=== PATIENT | female | born 1945 | race American Indian/Alaskan Native ===

== ENCOUNTER 2019-03-19 12:32 | Inpatient (IN) | payer MEDICARE ==
[2019-03-19] MEDS ORDERED: NACL 0.9% 1000 ML IV ONE (12:43)
[2019-03-19] MEDS ORDERED: VERSED IV PRN (12:45)
[2019-03-19] MEDS ORDERED: VASELINE LIP THERAPY TP PRN (12:45)
[2019-03-19] MEDS ORDERED: ARTIFICIAL TEARS OPHTH OINT OU PRN (12:45)
--- NOTE | 2019-03-19 12:48 | Emergency Department Report ---
ED General Adult HPI - General Chief complaint: Altered Mental Status Stated complaint: UNRESPONSIVE Time Seen by Provider: 03/19/19 12:42 Source: EMS (verbal report received from EMS.ems notes not available at time of chart dictation), RN notes reviewed Mode of arrival: Stretcher Limitations: Altered Mental Status - History of Present Illness Initial comments: This is an unfortunate 73-year-old female who is not known to this provider previously. The details of her past medical history are initially not known to this provider previously. She is reportedly on hospice, but full code, with a hospice diagnosis of "cerebral atherosclerosis." He do not know who her primary care doctor is. The patient is brought to the hospital by EMS for altered mental status weakness, and difficulty breathing. EMS verbally reports low-grade temperature in the field, hypoglycemia, and hypoxia. Upon arrival to the emergency room, the patient is obtunded, breathing without difficulty, desaturating, without a gag reflex. Family not immediately available to discuss goals of care and advanced directives. Enclosed paperwork indicates patient is a full code. Therefore, patient placed on nasal cannula at 15 L/m, and receives aggressive bag valve mask ventilation. She is given 20 mg of etomidate, direct laryngoscopy is performed with a Silvio 3 curved blade, and a 7.5 endotracheal tube is inserted by myself with 1 attempt, with no difficulty, and tube placement is confirmed through direct visualization of the tube passing through the cords, end-tidal capnography, auscultation of breath sounds, and x- ray of the chest. Patient is started empirically on the sepsis pathway, with broad-spectrum antibiotics, aggressive IV fluids, and post intubation sedation package. Family has arrived shortly after intubation, and we discussed patient's care, and poor prognosis. Currently, blood pressure in the high 90s, low 100s, and patient does not require vasopressor therapy. However, I did discuss with family possible need for either central line or intraosseous line, and as per daughter of the the patient "do whatever you can." The patient was altered and obtunded upon arrival, and therefore, she is not able to describe exacerbating or relieving factors, radiation, qualitative nature of her symptoms or duration of symptoms. We do not know what her last known well time is -: unknown Radiation: other Quality: other Consistency: other Improves with: other Worsens with: other - Related Data Allergies Allergy/AdvReac Type Severity Reaction Status Date / Time No Known Allergies Allergy Unverified 03/19/19 13:11 ED Review of Systems ROS: Stated complaint: UNRESPONSIVE Other details as noted in HPI Comment: Unobtainable due to pts medical conditions ED Physical Exam - General Limitations: Altered Mental Status General appearance: obtunded - Head Head exam: Present: atraumatic, normocephalic - Eye Eye exam: Present: normal appearance - ENT ENT exam: Present: mucous membranes dry - Neck Neck exam: Present: normal inspection, full ROM - Respiratory Respiratory exam: Present: respiratory distress, rhonchi - Cardiovascular Cardiovascular Exam: Present: normal rhythm, tachycardia, normal heart sounds. Absent: systolic murmur, diastolic murmur, rubs, gallop - GI/Abdominal GI/Abdominal exam: Present: soft. Absent: distended, tenderness, guarding, rebound, rigid, pulsatile mass - Rectal Rectal exam: Present: normal inspection - Speculum exam: Present: normal speculum exam - Extremities Exam Extremities exam: Present: normal inspection, pedal edema, other (2+ pulses noted in the bilateral upper, lower extremities. Compartments soft. No long bony tenderness. The pelvis is stable.) - Back Exam Back exam: Absent: tenderness, CVA tenderness (R), CVA tenderness (L), paraspinal tenderness, vertebral tenderness - Neurological Exam Neurological exam: Present: altered (the patient is nonverbal, not moving extremities, not speaking, eyes are closed) - Psychiatric Psychiatric exam: Present: normal affect, normal mood, other ( patient is nonverbal) - Skin Skin exam: Present: warm ED Course Vital Signs 03/19/19 03/19/19 03/19/19 12:47 13:00 13:05 Temperature 98.4 F Pulse Rate 131 H 131 H 133 H Respiratory 18 18 16 Rate Blood Pressure 69/49 106/62 O2 Sat by Pulse 99 Oximetry - Reevaluation(s) Reevaluation #1: 03/19/19 14:17 Differential diagnosis, including not limited to: Pneumonia, bacteremia, v iremia, urinary tract infection, dehydration, electrolyte derangement, encephalopathy Assessment and plan: 73-year-old female with altered mental status and acute respiratory failure, currently full code, requires intubation. Patient is currently mechanically ventilated, and is manifesting sepsis through multiple criteria. She is being treated according to her sepsis pathway with aggressive broad-spectrum antibiotics and fluid therapy. Cultures have been ordered. Laboratory studies demonstrate renal insufficiency, hypoglycemia, elevated troponin, likely type II troponin leak, hypomagnesemia, and hypocalcemia/hypoalbuminemia. CT scan of the brain appears to be negative for acute disease, chronic findings and exvacuo dilation appeared to be present. Neuro: Encephalopathy likely secondary to respiratory failure, dehydration, and presumed pneumonia. We will treat supportively. Sedation package as per protocol. Cardiovascular: Provide IV fluids, antipyretics therapy, correct electrolyte derangements. Elevated troponin likely type II troponin leak, likely secondary to sepsis, dehydration and acute renal insufficiency. Respiratory: Appropriate pulmonary toilet, head of bed elevation, lung protective ventilation strategy, appropriate antibiotics, pulmonary suction, sputum cultures. GI: Nothing by mouth, nasogastric tube. Hypoalbuminemia likely secondary to malnutrition, and this is the most likely contribute factor to patient's hypocalcemia. Renal endocrine: Likely prerenal azotemia, IV fluids, supportive care, check urine electrolytes Check urinalysis and urine culture Patient reportedly hypoglycemic, patient will be placed on a dextrose drip, every hour Accu-Cheks to be ordered. Muscular skeletal: Deferred to inpatient team. No acute muscular skeletal issue at this time. Mild myositis noted, continue IV fluids. Discussed with critical care physician, Dr. Gooden, his group will follow in consultation. He agrees with placement into the intensive care unit. Case was admitted to Hospital physician, Dr. Feli Andres, who has accepted patient's to the intensive care unit. 03/19/19 14:23 - EJ/Peripheral Line Neck R Time Out Performed: Yes Indications: multiple IV sites needed Skin Cleansed in Sterile Fashion: Yes Size: 18 Dressing Placed: Tegaderm Patient Tolerated Procedure: well - Intubation Time Out Performed: No (emergency situation) Sedative: Etomidate Mg Given: 20 Laryngoscope: Silvio Size: 3 ET Tube Size: 7.5 Tube Secured Depth (cm): 23 Tube Secured Location: teeth Tube Placement Confirmation: visualized tube passing t, equal breath sounds bilat, no breath sounds over epi, confirmation by capnometr Patient Tolerated Procedure: well Intubation Complications: none ED Medical Decision Making - Lab Data Result diagrams: 03/19/19 12:59 03/19/19 12:59 Vital Signs 03/19/19 03/19/19 03/19/19 12:47 13:00 13:05 Temperature 98.4 F Pulse Rate 131 H 131 H 133 H Respiratory 18 18 16 Rate Blood Pressure 69/49 106/62 O2 Sat by Pulse 99 Oximetry Lab Results 03/19/19 03/19/19 Range/Units 12:59 13:35 WBC 5.7 (4.5-11.0) K/mm3 RBC 3.44 L (3.65-5.03) M/mm3 Hgb 11.6 (10.1-14.3) gm/dl Hct 34.7 (30.3-42.9) % MCV 101 H (79-97) fl MCH 34 H (28-32) pg MCHC 33 (30-34) % RDW 13.9 (13.2-15.2) % Plt Count 98 L (140-440) K/mm3 POC Glucose 84 (70-105) - EKG Data -: EKG Interpreted by Hi EKG shows normal: sinus rhythm Rate: tachycardia - EKG Data 03/19/19 14:22 This is a sinus tachycardia, 129 bpm, normal axis, QTC 464 ms, abnormal EKG, motion artifact, there is no prior for comparison, this EKG is not consistent with ST elevation myocardial infarction. - Radiology Data Radiology results: report reviewed, image reviewed Print Report Referring Physician: CARITO GREEN Patient Name: HEMALATHA SHEETS Date of : 1945 Sex: Female Report Date: 2019-03-19 Report Status: Finalized Findings [facility] [address] [place] [address] XRay Report Signed Patient: HEMALATHA SHEETS MR#: [id number] : 1945 Acct:[id number] Age/Sex: 73 / F ADM Date: 03/19/19 Loc: ED Attending Dr: Ordering Physician: CARITO GREEN MD Date of Service: 03/19/19 Procedure(s): XR chest 1V ap Accession Number(s): [id number] cc: CARITO GREEN MD Fluoro Time In Minutes: CHEST 1 VIEW INDICATION / CLINICAL INFORMATION: ett placement. COMPARISON: None available. FINDINGS: SUPPORT DEVICES: Endotracheal tube is in place in good position above the liam. HEART / MEDIASTINUM: No significant abnormality. LUNGS / PLEURA: There is moderate bibasilar lung consolidation and slight right upper lobe consolidation as well. No edema or effusions. No pneumothorax. ADDITIONAL FINDINGS: No significant additional findings. IMPRESSION: 1. Endotracheal tube in good position. Signer Name: Angelo Milan MD Signed: 03/19/2019 1:25 PM Workstation Name: [id number] Transcribed By: LINDEN Dictated By: Angelo Milan MD Electronically Authenticated By: Angelo Milan MD Signed Date/Time: 03/19/19 4749 Critical care attestation.: If time is entered above; I have spent that time in minutes in the direct care of this critically ill patient, excluding procedure time. ED Disposition Clinical Impression: Hypoglycemia, HA (acute kidney injury) Acute respiratory failure Qualifiers: Respiratory failure complication: unspecified whether with hypoxia or hypercapnia Qualified Code(s): J96.00 - Acute respiratory failure, unspecified whether with hypoxia or hypercapnia Sepsis Qualifiers: Sepsis type: sepsis due to unspecified organism Qualified Code(s): A41.9 - Sepsis, unspecified organism Disposition: DC09 OP ADMIT IP TO THIS HOSP Is pt being admited?: Yes Condition: Critical Referrals: DIMPLE NASH MD [Primary Care Provider] - 3-5 Days
[2019-03-19] MEDS ORDERED: MAXIPIME/NS 2 GM/100 ML 2 GM/100 ML BAG IV SCH (13:00)
[2019-03-19] MEDS ORDERED: MIDAZOLAM 100 MG in NACL 0.9% 80 ML IV SCH (13:00)
[2019-03-19] MEDS ORDERED: D10W 1,000 ML IV SCH (13:00)
[2019-03-19] MEDS ORDERED: LEVAQUIN 500MG/100ML 500 MG/100 ML BAG IV ONE (13:23)
[2019-03-19] MEDS: SUBLIMAZE IV PRN (13:26)
--- NOTE | 2019-03-19 13:29 | XRay Report ---
CHEST 1 VIEW INDICATION / CLINICAL INFORMATION: ett placement. COMPARISON: None available. FINDINGS: SUPPORT DEVICES: Endotracheal tube is in place in good position above the liam. HEART / MEDIASTINUM: No significant abnormality. LUNGS / PLEURA: There is moderate bibasilar lung consolidation and slight right upper lobe consolidat ion as well. No edema or effusions. No pneumothorax. ADDITIONAL FINDINGS: No significant additional findings. IMPRESSION: 1. Endotracheal tube in good position. Signer Name: Angelo Milan MD Signed: 03/19/2019 1:25 PM Workstation Name: [id number]
[2019-03-19 13:30] LABS: Hematocrit 34.7 % (30.3-42.9); Hemoglobin 11.6 gm/dl (10.1-14.3); Mean Corpuscular HGB Conc 33 % (30-34); Mean Corpuscular Volume 101 fl (79-97); Red Blood Count 3.44 M/mm3 (3.65-5.03); Red Cell Distribution Width 13.9 % (13.2-15.2)
[2019-03-19 13:35] LABS: Platelet Count 98 K/mm3 (140-440)
[2019-03-19 13:47] LABS: Albumin 1.7 g/dL (3.9-5); Calcium 7.8 mg/dL (8.4-10.2)
[2019-03-19] MEDS ORDERED: VANCOMYCIN 1,250 MG in NACL 0.9% 500 ML 500 ML IV ONE (14:00)
[2019-03-19] MEDS ORDERED: fentaNYL DRIP Premix 2,000 MCG/100 ML BAG IV SCH (14:00)
[2019-03-19] MEDS ORDERED: MAGNESIUM SULFATE 2GM/50ML 2 GM/50 ML BAG IV ONE (14:12)
[2019-03-19] MEDS ORDERED: TYLENOL PR ONE (14:12)
[2019-03-19 14:27] LABS: Eosinophils % (Auto) 0.1 % (0.0-4.3); Monocytes # (Auto) 0.3 K/mm3 (0.0-0.8)
[2019-03-19] MEDS ORDERED: NACL 0.9% 1000 ML 1,000 ML IV ONE ×2 (14:27→20:00)
--- NOTE | 2019-03-19 14:37 | Cat Scan Report ---
CT head/brain wo con INDICATION: Altered mental status; respiratory failure TECHNIQUE: Routine CT head without contrast. Sagittal and coronal reformatted images were obtained. A ll CT scans at this location are performed using CT dose reduction for ALARA by means of automated ex posure control. COMPARISON: None. FINDINGS: BRAIN / INTRACRANIAL CONTENTS: Left frontal craniotomy changes are seen. Encephalomalacia is seen involving almost the entire right cerebral hemisphere with compensatory enla rgement of right lateral ventricle. Volume loss is seen in the left cerebral hemisphere also. Brainstem and cerebellum are normal. I do not see focal lesion in the left cerebral hemisphere. I do not see acute hemorrhage or acute parenchymal lesion. CRANIOCERVICAL JUNCTION: No significant abnormality. ORBITS: No significant abnormality of visualized orbits. SINUSES / MASTOIDS: No significant abnormality of the visualized paranasal sinuses or mastoid air quan ls. ADDITIONAL FINDINGS: None. IMPRESSION: Encephalomalacia in the entire right cerebral hemisphere Volume loss in the left cerebral hemisphere I do not see an acute parenchymal lesion in the brain. Signer Name: Lakeisha Begum MD Signed: 03/19/2019 2:33 PM Workstation Name: [id number]
[2019-03-19] MEDS ORDERED: D50W (25GM) Syringe IV ONE (14:43)
[2019-03-19 14:52] LABS: Chol/HDL Ratio 1.96 %
[2019-03-19 15:43] LABS: Band Neutrophils # (Manual) 0.2 K/mm3; Basophils % (Manual) 0 % (0.0-1.8); Eosinophils % (Manual) 0 % (0.0-4.3); Myelocytes # (Manual) 0.6 K/mm3; Total Cells Counted 100
[2019-03-19 15:44] LABS: Platelet Estimate Consistent w Auto; RBC Morphology Normal
[2019-03-19 16:10] LABS: Bilirubin,Urine NEG (Negative); Color,Urine Yellow (Yellow)
[2019-03-19 16:11] LABS: Bacteria,Urine 1+ /HPF (Negative); Blood,Urine LG (Negative); Hyaline Casts,Urine 3 /LPF; Mucus,Urine FEW /HPF; Protein,Urine <15 mg/dL mg/dL (Negative); Urobilinogen,Urine < 2.0 mg/dL (<2.0)
[2019-03-19 16:12] LABS: Creatinine,Urine 31.8 mg/dL (0.1-20.0)
[2019-03-19] MEDS ORDERED: NACL 0.9% 1000 ML 2,000 ML IV ONE (17:18)
[2019-03-19] MEDS ORDERED: SODIUM BICARBONATE 150 MEQ in D5W 1,000 ML IV SCH (18:00)
[2019-03-19] MEDS: D50W (25GM) Syringe IV PRN ×2 (18:31→21:15)
[2019-03-19] MEDS ORDERED: CORDARONE 150 MG in D5W 97 ML IV ONE (19:01)
[2019-03-19] MEDS ORDERED: NACL 0.9% 1000 ML 1,000 ML IV SCH (20:16)
[2019-03-19] MEDS: CORDARONE 900 MG in D5W 482 ML IV SCH (20:30)
--- NOTE | 2019-03-19 21:43 | XRay Report ---
ABDOMEN 1 VIEW(S) INDICATION / CLINICAL INFORMATION: placement of ngt. COMPARISON: None available. FINDINGS: TUBES / LINES: No NG tube is visualized. BOWEL GAS PATTERN: No significant abnormality. FREE AIR / EXTRALUMINAL GAS: None seen. ADDITIONAL FINDINGS: Bronchograms are present in the left lower lobe of the lung indicative of pneumo tiara. IVC filter is noted in the right-sided mid abdomen. IMPRESSION: 1. No NG tube is visualized on the radiograph. Please check the patient's throat to see if it is coil ed within the pharynx. 2. Air bronchograms are present in the left lower lobe of the lung most likely representing pneumonia . COMMUNICATION: Time of Communication: 2037 WEED ERADICATOR Licensed Practitioner Receiving Report: Lena Signer Name: Alejandrina Marks MD Signed: 03/19/2019 9:38 PM Workstation Name: [id number]
[2019-03-19] MEDS ORDERED: AMIDATE IV ONE (23:00)
[2019-03-19] MEDS ORDERED: ZEMURON IV ONE (23:00)
--- NOTE | 2019-03-19 23:03 | XRay Report ---
ABDOMEN 1 VIEW INDICATION / CLINICAL INFORMATION: Interval advancement of NG tube. COMPARISON: KUB from earlier today. FINDINGS: TUBES / LINES: The NG tube has been advanced and now terminates along the lateral margin of the gastr ic fundus. The side-port of the tube projects over the GE junction. BOWEL GAS PATTERN: No significant abnormality. FREE AIR / EXTRALUMINAL GAS: None seen. ADDITIONAL FINDINGS: Opacities are again noted throughout the right lung. The IVC filter is unchanged in position. IMPRESSION: Interval advancement of the NG tube as above. The side-port of the tube is likely located at the GE j unction. The tube may be advanced another 3-4 cm if desired. Signer Name: Chin Morris MD Signed: 03/19/2019 10:58 PM Workstation Name: [id number]
--- NOTE | 2019-03-19 23:40 | History and Physical Report ---
History of Present Illness Date of examination: 03/19/19 Date of admission: 03/19/19 15:52 Chief complaint: Decreased responsiveness for the last few hours History of present illness: 73-year-old female brought to the hospital by EMS for altered mental status weakness, and difficulty breathing. EMS verbally reports low-grade temperature in the field, hypoglycemia, and hypoxia. Upon arrival to the emergency room, the patient is obtunded, breathing without difficulty, desaturating, without a gag reflex. Family not immediately available to discuss goals of care and advanced directives. Patient was intubated in the emergency room by . Patient was obtunded and desaturating and not responding to high flow oxygen. No fever or chills. Past History Past Medical History: other (not available) Past Surgical History: Other (not available) Social history: lives with family, full code Family history: hypertension Medications and Allergies Allergies Allergy/AdvReac Type Severity Reaction Status Date / Time No Known Allergies Allergy Unverified 03/19/19 13:11 Active Meds: Active Medications Dextrose (D50w (25gm) Syringe) 50 ml IV PRN PRN PRN Reason: Hypoglycemia Last Admin: 03/19/19 21:15 Dose: 50 ml Documented by: Fentanyl (Sublimaze) 50 mcg IV Q10MIN PRN PRN Reason: ANALGESIA Last Admin: 03/19/19 13:26 Dose: 50 mcg Documented by: Hydrophilic Ointment (Vaseline Lip Therapy) 1 applic TP Q2HR PRN PRN Reason: Dry Lips Cefepime HCl (Maxipime/Ns 2 Gm/100 Ml) 2 gm in 100 mls @ 200 mls/hr IV NOW YUSUF; Protocol Last Infusion: 03/19/19 13:40 Dose: Infused Documented by: Fentanyl Citrate (Fentanyl Drip Premix) 2,000 mcg in 100 mls @ 2.835 mls/hr IV TITR YUSUF; Protocol Last Titration: 03/19/19 18:40 Dose: 0 mcg/kg/hr, 0 mls/hr Documented by: Midazolam HCl 100 mg/ Sodium (Chloride) 100 mls @ 2 mls/hr IV TITR YUSUF; Protocol Sodium Bicarbonate 150 meq/ (Dextrose) 1,150 mls @ 75 mls/hr IV DIRECT YSUUF Last Admin: 03/19/19 18:05 Dose: 75 mls/hr Documented by: Amiodarone HCl 900 mg/ (Dextrose) 500 mls @ 33.333 mls/hr IV DIRECT YUSUF; Protocol Last Admin: 03/19/19 20:30 Dose: 1 mg/min, 33.333 mls/hr Documented by: Sodium Chloride (Nacl 0.9% 1000 Ml) 1,000 mls @ 0 mls/hr IV ONCE YUSUF Stop: 03/20/19 20:17 Last Admin: 03/19/19 20:29 Dose: 999 mls/hr Documented by: Midazolam HCl (Versed) 2 mg IV Q10MIN PRN PRN Reason: Sedation Multi-Ingred Cream/Lotion/Oil/Oint (Artificial Tears Ophth Oint) 1 applic OU Q4 HR PRN PRN Reason: Dry Eye(s) Review of Systems ROS unobtainable: due to endotracheal tube Exam - Physical Exam Narrative exam: Patient is intubated - Constitutional Vitals: Temp Pulse Resp BP Pulse Ox 97.8 F 106 H 24 129/81 96 03/19/19 23:21 03/19/19 23:21 03/19/19 23:21 03/19/19 23:21 03/19/19 23:21 General appearance: Present: no acute distress, severe distress, well-nourished - EENT Eyes: Present: PERRL ENT: hearing intact, clear oral mucosa - Neck Neck: Present: supple, normal ROM - Respiratory Respiratory effort: normal Respiratory: bilateral: CTA, rhonchi - Cardiovascular Heart rate: 96 Rhythm: regular Heart Sounds: Present: S1 & S2. Absent: rub, click - Extremities Extremities: no ischemia, pulses intact, pulses symmetrical, No edema Peripheral Pulses: within normal limits - Abdominal General gastrointestinal: Present: soft, non-tender, non-distended, normal bowel sounds Female genitourinary: Present: normal - Integumentary Integumentary: Present: clear, warm, dry - Musculoskeletal Musculoskeletal: generalized weakness, other (could not be tested patient is intubated) - Psychiatric Psychiatric: other (patient is intubated) - Neurologic Neurologic: moves all extremities, other (patient is intubated) - Allied Health Allied health notes reviewed: nursing, case management Results - Labs CBC & Chem 7: 03/19/19 12:59 03/19/19 12:59 Labs: Laboratory Last Values WBC 5.7 K/mm3 (4.5-11.0) 03/19/19 12:59 RBC 3.44 M/mm3 (3.65-5.03) L 03/19/19 12:59 Hgb 11.6 gm/dl (10.1-14.3) 03/19/19 12:59 Hct 34.7 % (30.3-42.9) 03/19/19 12:59 MCV 101 fl (79-97) H 03/19/19 12:59 MCH 34 pg (28-32) H 03/19/19 12:59 MCHC 33 % (30-34) 03/19/19 12:59 RDW 13.9 % (13.2-15.2) 03/19/19 12:59 Plt Count 98 K/mm3 (140-440) L 03/19/19 12:59 [place] % (Auto) 5.0 % (0.0-7.3) 03/19/19 12:59 Eos % (Auto) 0.1 % (0.0-4.3) 03/19/19 12:59 [place] # 0.3 K/mm3 (0.0-0.8) 03/19/19 12:59 Eos # 0.0 K/mm3 (0.0-0.4) 03/19/19 12:59 Baso # 0.0 K/mm3 (0.0-0.1) 03/19/19 12:59 Add Manual Diff Complete 03/19/19 12:59 Total Counted 100 03/19/19 12:59 Seg Neutrophils % 66.5 % (40.0-70.0) 03/19/19 12:59 Seg Neuts % (Manual) 11.0 % (40.0-70.0) L 03/19/19 12:59 4.0 % 03/19/19 12:59 28.0 % (13.4-35.0) 03/19/19 12:59 Reactive Lymphs % (Man) 2.0 % 03/19/19 12:59 10.0 % (0.0-7.3) H 03/19/19 12:59 0 % (0.0-4.3) 03/19/19 12:59 0 % (0.0-1.8) 03/19/19 12:59 34.0 % 03/19/19 12:59 11.0 % 03/19/19 12:59 0 % 03/19/19 12:59 0 % 03/19/19 12:59 Nucleated RBC % 1.0 % (0.0-0.9) H 03/19/19 12:59 Seg Neutrophils # 3.8 K/mm3 (1.8-7.7) 03/19/19 12:59 Seg Neutrophils # Man 0.6 K/mm3 (1.8-7.7) L 03/19/19 12:59 Band Neutrophils # 0.2 K/mm3 03/19/19 12:59 1.6 K/mm3 (1.2-5.4) 03/19/19 12:59 Abs React Lymphs (Man) 0.1 K/mm3 03/19/19 12:59 0.6 K/mm3 (0.0-0.8) 03/19/19 12:59 0.0 K/mm3 (0.0-0.4) 03/19/19 12:59 0.0 K/mm3 (0.0-0.1) 03/19/19 12:59 1.9 K/mm3 03/19/19 12:59 0.6 K/mm3 03/19/19 12:59 0.0 K/mm3 03/19/19 12:59 Blast Cells # 0.0 K/mm3 03/19/19 12:59 WBC Morphology Not Reportable 03/19/19 12:59 Hypersegmented Neuts Not Reportable 03/19/19 12:59 Hyposegmented Neuts Not Reportable 03/19/19 12:59 Hypogranular Neuts Not Reportable 03/19/19 12:59 Not Reportable 03/19/19 12:59 Not Reportable 03/19/19 12:59 Not Reportable 03/19/19 12:59 Not Reportable 03/19/19 12:59 Not Reportable 03/19/19 12:59 Not Reportable 03/19/19 12:59 Consistent w auto 03/19/19 12:59 Not Reportable 03/19/19 12:59 Plt Clumps, EDTA Not Reportable 03/19/19 12:59 Not Reportable 03/19/19 12:59 Not Reportable 03/19/19 12:59 Not Reportable 03/19/19 12:59 Plt Morphology Comment Not Reportable 03/19/19 12:59 RBC Morphology Normal 03/19/19 12:59 Dimorphic RBCs Not Reportable 03/19/19 12:59 Not Reportable 03/19/19 12:59 Not Reportable 03/19/19 12:59 Not Reportable 03/19/19 12:59 Not Reportable 03/19/19 12:59 Not Reportable 03/19/19 12:59 Not Reportable 03/19/19 12:59 Not Reportable 03/19/19 12:59 Not Reportable 03/19/19 12:59 Not Reportable 03/19/19 12:59 Not Reportable 03/19/19 12:59 Not Reportable 03/19/19 12:59 Not Reportable 03/19/19 12:59 Not Reportable 03/19/19 12:59 Not Reportable 03/19/19 12:59 Not Reportable 03/19/19 12:59 Not Reportable 03/19/19 12:59 Not Reportable 03/19/19 12:59 Not Reportable 03/19/19 12:59 Not Reportable 03/19/19 12:59 Acanthocytes (Spur) Not Reportable 03/19/19 12:59 Rouleaux Not Reportable 03/19/19 12:59 Not Reportable 03/19/19 12:59 Not Reportable 03/19/19 12:59 Not Reportable 03/19/19 12:59 Not Reportable 03/19/19 12:59 Hem Pathologist Commnt No 03/19/19 12:59 POC ABG pH 7.196 (7.35-7.45) L 03/19/19 16:38 POC ABG pCO2 30.8 (35-45) L 03/19/19 16:38 POC ABG pO2 92 (80-105) 03/19/19 16:38 POC ABG HCO3 11.9 (22-26 mml/L) 03/19/19 16:38 POC ABG Total CO2 13 (23-27mmol/L) 03/19/19 16:38 POC ABG O2 Sat 95 03/19/19 16:38 POC ABG Base Excess -16 ((-2) - (+3)mmol/L) 03/19/19 16:38 70 % 03/19/19 16:38 Sodium 149 mmol/L (137-145) H 03/19/19 12:59 Potassium 3.6 mmol/L (3.6-5.0) 03/19/19 12:59 Chloride 109.4 mmol/L (98-107) H 03/19/19 12:59 Carbon Dioxide 23 mmol/L (22-30) 03/19/19 12:59 20 mmol/L 03/19/19 12:59 BUN 51 mg/dL (7-17) H 03/19/19 12:59 3.2 mg/dL (0.7-1.2) H 03/19/19 12:59 Estimated GFR 17 ml/min 03/19/19 12:59 16 % 03/19/19 12:59 Glucose 58 mg/dL (65-100) L 03/19/19 12:59 POC Glucose 136 (70-105) H 03/19/19 22:07 Lactic Acid 5.90 mmol/L (0.7-2.0) H* 03/19/19 20:56 Calcium 7.8 mg/dL (8.4-10.2) L 03/19/19 12:59 Magnesium 1.60 mg/dL (1.7-2.3) L 03/19/19 12:59 0.50 mg/dL (0.1-1.2) 03/19/19 12:59 AST 75 units/L (5-40) H 03/19/19 12:59 ALT 19 units/L (7-56) 03/19/19 12:59 39 units/L (35-129) 03/19/19 12:59 1499 units/L (30-135) H 03/19/19 12:59 0.109 ng/mL (0.00-0.029) H* 03/19/19 12:59 5.2 g/dL (6.3-8.2) L 03/19/19 12:59 1.7 g/dL (3.9-5) L 03/19/19 12:59 0.5 % 03/19/19 12:59 Triglycerides 72 mg/dL (2-149) 03/19/19 12:59 Cholesterol 61 mg/dL (50-199) 03/19/19 12:59 22 mg/dL (50-130) L 03/19/19 12:59 31 mg/dL (40-59) L 03/19/19 12:59 1.96 % 03/19/19 12:59 Yellow (Yellow) 03/19/19 12:47 Clear (Clear) 03/19/19 12:47 5.0 (5.0-7.0) 03/19/19 12:47 Ur Specific [place] 1.010 (1.003-1.030) 03/19/19 12:47 <15 mg/dl mg/dL (Negative) 03/19/19 12:47 50 mg/dL (Negative) 03/19/19 12:47 Neg mg/dL (Negative) 03/19/19 12:47 Lg (Negative) 03/19/19 12:47 Neg (Negative) 03/19/19 12:47 Neg (Negative) 03/19/19 12:47 < 2.0 mg/dL (<2.0) 03/19/19 12:47 Ur Leukocyte Esterase Neg (Negative) 03/19/19 12:47 2.0 /HPF (0.0-6.0) 03/19/19 12:47 2.0 /HPF (0.0-6.0) 03/19/19 12:47 U Epithel Cells (Auto) 1.0 /HPF (0-13.0) 03/19/19 12:47 1+ /HPF (Negative) 03/19/19 12:47 Hyaline Casts 3 /LPF 03/19/19 12:47 Few /HPF 03/19/19 12:47 31.8 mg/dL (0.1-20.0) H 03/19/19 15:52 118 mmol/L 03/19/19 15:52 Salicylates < 0.3 mg/dL (2.8-20.0) L 03/19/19 12:59 Acetaminophen < 5.0 ug/mL (10.0-30.0) L 03/19/19 12:59 Short CBC 03/19/19 Range/Units 12:59 WBC 5.7 (4.5-11.0) K/mm3 Hgb 11.6 (10.1-14.3) gm/dl Hct 34.7 (30.3-42.9) % Plt Count 98 L (140-440) K/mm3 BMP 03/19/19 12:59 Sodium 149 H Potassium 3.6 Chloride 109.4 H Carbon Dioxide 23 BUN 51 H Creatinine 3.2 H Glucose 58 L Calcium 7.8 L Cardiac Enzymes 03/19/19 Range/Units 12:59 Total Creatine Kinase 1499 H (30-135) units/L Troponin T 0.109 H* (0.00-0.029) ng/mL Liver Function 03/19/19 Range/Units 12:59 Total Bilirubin 0.50 (0.1-1.2) mg/dL AST 75 H (5-40) units/L ALT 19 (7-56) units/L Alkaline Phosphatase 39 (35-129) units/L Albumin 1.7 L (3.9-5) g/dL Urine 03/19/19 Range/Units 12:47 Urine Color Yellow (Yellow) Urine pH 5.0 (5.0-7.0) Ur Specific [place] 1.010 (1.003-1.030) Urine Protein <15 mg/dl (Negative) mg/dL Urine Glucose (UA) 50 (Negative) mg/dL - Imaging and Cardiology EKG: report reviewed (sinus tachycardia heart rate of 129/m) Abdominal x-ray: report reviewed Imaging and Cardiology: Chest x-ray LUNGS / PLEURA: There is moderate bibasilar lung consolidation and slight right upper lobe consolidation as well. No edema or effusions. No pneumothorax. ADDITIONAL FINDINGS: No significant additional findings. IMPRESSION: 1. Endotracheal tube in good position. 2.Moderate bibasilar lung consolidation Head CT IMPRESSION: Encephalomalacia in the entire right cerebral hemisphere Volume loss in the left cerebral hemisphere I do not see an acute parenchymal lesion in the brain. Abdominal x-ray IMPRESSION: 1. No NG tube is visualized on the radiograph. Please check the patient's throat to see if it is coiled within the pharynx. 2. Air bronchograms are present in the left lower lobe of the lung most likely representing pneumonia. Assessment and Plan Advance Directives: Yes (full code) VTE prophylaxis?: Chemical Plan of care discussed with patient/family: Yes - Patient Problems (1) Acute respiratory failure Current Visit: Yes Status: Acute Qualifiers: Respiratory failure complication: unspecified whether with hypoxia or hypercapnia Qualified Code(s): J96.00 - Acute respiratory failure, unspecified whether with hypoxia or hypercapnia Plan to address problem: Possible aspiration pneumonia Patient intubated Continue vent support Nebulizer treatments IV Solu-Medrol (2) Sepsis Current Visit: Yes Status: Acute Qualifiers: Sepsis type: sepsis due to unspecified organism Qualified Code(s): A41.9 - Sepsis, unspecified organism Plan to address problem: IV antibiotics and IV fluids for now (3) HA (acute kidney injury) Current Visit: Yes Status: Acute Plan to address problem: IV fluids for now Nephrology consult (4) Aspiration pneumonia Current Visit: Yes Status: Acute Qualifiers: Laterality: bilateral Plan to address problem: Clinical pidture consistent with Aspiration pneumonia Cont IV Cefepim,e and IV Vancomycin (5) Hypernatremia Current Visit: Yes Status: Acute Plan to address problem: Half NS for now (6) Elevated lactic acid level Current Visit: Yes Status: Acute Plan to address problem: Secondary to sepsis (7) Hypomagnesemia Current Visit: Yes Status: Acute Plan to address problem: Supplemented (8) Elevated troponin I level Current Visit: Yes Status: Acute Plan to address problem: NSTEMI II (9) DVT prophylaxis Current Visit: Yes Status: Acute Plan to address problem: On Heparin and GI prophylaxis (10) Advanced care planning/counseling discussion Current Visit: Yes Status: Acute Plan to address problem: Primary team to discuss AND and hospice
[2019-03-19] MEDS ORDERED: D5/0.45NS 1,000 ML IV SCH (23:45)
[2019-03-19] MEDS ORDERED: PROVENTIL IH PRN (23:58)
[2019-03-19] MEDS ORDERED: SIMPLE SYRUP FEEDTUBE PRN ×2 (23:58)
[2019-03-19] MEDS ORDERED: PANCREAZE DR 10,500 UNIT FEEDTUBE PRN (23:58)
[2019-03-19] MEDS ORDERED: SODIUM BICARBONATE FEEDTUBE PRN (23:58)
[2019-03-19] MEDS ORDERED: PHENERGAN PR PRN (23:58)
[2019-03-19] MEDS ORDERED: ZOFRAN IV PRN (23:58)
[2019-03-19] MEDS ORDERED: SODIUM CHLORIDE FLUSH SYRINGE 10 ML IV PRN (23:58)
[2019-03-19] MEDS ORDERED: D50W (25GM) Syringe IV PRN (23:58)
[2019-03-19] MEDS ORDERED: REGLAN IV PRN (23:58)
[2019-03-20] MEDS ORDERED: PEPCID IV SCH
[2019-03-20] MEDS ORDERED: REGLAN IV PRN (00:12)
[2019-03-20] MEDS ORDERED: VANCOMYCIN PHARMACY TO DOSE IV SCH (01:00)
[2019-03-20] MEDS ORDERED: MAXIPIME/NS 2 GM/100 ML 2 GM/100 ML BAG IV SCH (01:00)
[2019-03-20] MEDS: D50W (25GM) Syringe IV PRN ×4 (01:12→15:48)
[2019-03-20] MEDS: PULMICORT IH SCH ×3 (01:51→20:12)
[2019-03-20] MEDS: DUONEB *Not for PRN Use IH SCH ×4 (01:51→20:12)
--- NOTE | 2019-03-20 02:35 | XRay Report ---
CHEST 1 VIEW 03/20/2019 2:14 AM INDICATION / CLINICAL INFORMATION: follow up respiratory failure. COMPARISON: One view of the chest from 03/19/2019. FINDINGS: The patient is rotated to the left. SUPPORT DEVICES: The tip of the ET tube is located 3.5 cm above the liam. An NG tube has been place d that terminates over the stomach. HEART / MEDIASTINUM: No significant abnormality. LUNGS / PLEURA: Right pulmonary opacities have worsened along the upper lobe. The left lung is clear. No significant pleural effusion. No pneumothorax. ADDITIONAL FINDINGS: No significant additional findings. IMPRESSION: Interval worsening of right pulmonary opacities, likely representing pneumonia. Signer Name: Chin Morris MD Signed: 03/20/2019 2:31 AM Workstation Name: [employer]
[2019-03-20] MEDS: HumaLOG SUB-Q SCH ×4 (06:15→17:36)
--- NOTE | 2019-03-20 07:55 | Progress Note ---
Assessment and Plan Assessment and plan: Patient is a 73 yo woman without a clear past medical history due to patient presentation of being Altered requiring intubation upon admission. She is reportedly on hospice, but full code, with a hospice diagnosis of "cerebral atherosclerosis." EMS verbally reports low-grade temperature in the field, hy poglycemia, and hypoxia. Upon arrival to the emergency room, the patient is obtunded, breathing without difficulty, desaturating, without a gag reflex. Family not immediately available to discuss goals of care and advanced directives. Enclosed paperwork indicates patient is a full code. Therefore, patient placed on nasal cannula at 15 L/m, and receives aggressive bag valve mask ventilation. She is given 20 mg of etomidate, direct laryngoscopy is performed with a Yohan 3 curved blade, and a 7.5 endotracheal tube is inserted by Dr. Payne with 1 attempt, without difficulty, and tube placement is confirmed through direct visualization of the tube passing through the cords, end-tidal capnography, auscultation of breath sounds, and x-ray of the chest. Patient is started empirically on the sepsis pathway, with broad-spectrum antibiotics, aggressive IV fluids, and post intubation sedation package. Patient blood pressure in the high 90s, low 100s, and patient does not require vasopre ssor therapy. Dr. Andres reported discussing with family possible need for either central line or intraosseous line, and as per daughter of the the patient "do whatever you can." * pCXR FINDINGS: SUPPORT DEVICES: Endotracheal tube is in place in good position above the liam. HEART / MEDIASTINUM: No significant abnormality. LUNGS / PLEURA: There is moderate bibasilar lung consolidation and slight right upper lobe consolidation as well. No edema or effusions. No pneumothorax. ADDITIONAL FINDINGS: No significant additional findings. IMPRESSION: 1. Endotracheal tube in good position. * CT head without contrast IMPRESSION: Encephalomalacia in the entire right cerebral hemisphere Volume loss in the left cerebral hemisphere I do not see an acute parenchymal lesion in the brain. * Abdominal Xray 1 view: FINDINGS: TUBES / LINES: The NG tube has been advanced and now terminates along the lateral margin of the gastric fundus. The side- port of the tube projects over the GE junction. BOWEL GAS PATTERN: No significant abnormality. FREE AIR / EXTRALUMINAL GAS: None seen. ADDITIONAL FINDINGS: Opacities are again noted throughout the right lung. The IVC filter is unchanged in position. IMPRESSION: Interval advancement of the NG tube as above. The side-port of the tube is likely located at the GE junction. The tube may be advanced another 3-4 cm if desired. Acute metabolic encephalopathy, time of last being at baseline unknown Acute hypoxic respiratory s/p ETT placement: consulted [facility] Sepsis due to bilateral pneumonia; treat with abx HA (acute kidney injury), atn and vasomotor nephrology, poa: IV fluids for now, Nephrology consult RUL Aspiration pneumonia: Cont IV Cefepime and IV Vancomycin Hypernatremia: repeat bmp am Hypomagnesemia: replete and recheck am Elevated troponin I level NSTEMI II; consulted Cardiology DVT prophylaxis d/w family at bedside full code History Interval history: Patient was seen and examined. Follow-up on current diagnosis of AMS/respiratory failure requiring Intubation. No overnight events reported to me. Patient denies any chest pain, shortness breath, nausea/vomiting or severe headaches. Imaging, nursing note, chart, labs and old chart reviewed. Discussed with patient. Hospitalist Physical - Physical exam Narrative exam: Gen: critcally ill, thin frail, bmi 20, intubated,sedated on Fentanyl HEENT: NCAT, EOMI, PERRL, OP Clear Neck: supple, no adenopathy, no thyromegaly, no JVD CVS/Heart: RRR, normal S1S2, pulses present bilaterally Chest/Lungs: CTA B, Symmetrical chest expansion, good air entry bilaterally GI/Abdomen: soft, NTND, good bowel sounds, no guarding or rebound /Bladder: no suprapubic tenderness, no CVA or paraspinal tenderness Extermity/Skin: no c/c/e, no obvious rash MSK: intubated Neuro: intubated Psych: intubated - Constitutional Vitals: Temp Pulse Resp BP Pulse Ox 97.6 F 120 H 19 83/51 96 03/20/19 03:59 03/20/19 07:21 03/20/19 07:21 03/20/19 07:21 03/20/19 07:21 General appearance: Present: no acute distress, severe distress, well-nourished Results - Labs CBC & Chem 7: 03/19/19 12:59 03/20/19 08:23 Labs: Laboratory Last Values WBC 5.7 K/mm3 (4.5-11.0) 03/19/19 12:59 RBC 3.44 M/mm3 (3.65-5.03) L 03/19/19 12:59 Hgb 11.6 gm/dl (10.1-14.3) 03/19/19 12:59 Hct 34.7 % (30.3-42.9) 03/19/19 12:59 MCV 101 fl (79-97) H 03/19/19 12:59 MCH 34 pg (28-32) H 03/19/19 12:59 MCHC 33 % (30-34) 03/19/19 12:59 RDW 13.9 % (13.2-15.2) 03/19/19 12:59 Plt Count 98 K/mm3 (140-440) L 03/19/19 12:59 [place] % (Auto) 5.0 % (0.0-7.3) 03/19/19 12:59 Eos % (Auto) 0.1 % (0.0-4.3) 03/19/19 12:59 [place] # 0.3 K/mm3 (0.0-0.8) 03/19/19 12:59 Eos # 0.0 K/mm3 (0.0-0.4) 03/19/19 12:59 Baso # 0.0 K/mm3 (0.0-0.1) 03/19/19 12:59 Add Manual Diff Complete 03/19/19 12:59 Total Counted 100 03/19/19 12:59 Seg Neutrophils % 66.5 % (40.0-70.0) 03/19/19 12:59 Seg Neuts % (Manual) 11.0 % (40.0-70.0) L 03/19/19 12:59 4.0 % 03/19/19 12:59 28.0 % (13.4-35.0) 03/19/19 12:59 Reactive Lymphs % (Man) 2.0 % 03/19/19 12:59 10.0 % (0.0-7.3) H 03/19/19 12:59 0 % (0.0-4.3) 03/19/19 12:59 0 % (0.0-1.8) 03/19/19 12:59 34.0 % 03/19/19 12:59 11.0 % 03/19/19 12:59 0 % 03/19/19 12:59 0 % 03/19/19 12:59 Nucleated RBC % 1.0 % (0.0-0.9) H 03/19/19 12:59 Seg Neutrophils # 3.8 K/mm3 (1.8-7.7) 03/19/19 12:59 Seg Neutrophils # Man 0.6 K/mm3 (1.8-7.7) L 03/19/19 12:59 Band Neutrophils # 0.2 K/mm3 03/19/19 12:59 1.6 K/mm3 (1.2-5.4) 03/19/19 12:59 Abs React Lymphs (Man) 0.1 K/mm3 03/19/19 12:59 0.6 K/mm3 (0.0-0.8) 03/19/19 12:59 0.0 K/mm3 (0.0-0.4) 03/19/19 12:59 0.0 K/mm3 (0.0-0.1) 03/19/19 12:59 1.9 K/mm3 03/19/19 12:59 0.6 K/mm3 03/19/19 12:59 0.0 K/mm3 03/19/19 12:59 Blast Cells # 0.0 K/mm3 03/19/19 12:59 WBC Morphology Not Reportable 03/19/19 12:59 Hypersegmented Neuts Not Reportable 03/19/19 12:59 Hyposegmented Neuts Not Reportable 03/19/19 12:59 Hypogranular Neuts Not Reportable 03/19/19 12:59 Not Reportable 03/19/19 12:59 Not Reportable 03/19/19 12:59 Not Reportable 03/19/19 12:59 Not Reportable 03/19/19 12:59 Not Reportable 03/19/19 12:59 Not Reportable 03/19/19 12:59 Consistent w auto 03/19/19 12:59 Not Reportable 03/19/19 12:59 Plt Clumps, EDTA Not Reportable 03/19/19 12:59 Not Reportable 03/19/19 12:59 Not Reportable 03/19/19 12:59 Not Reportable 03/19/19 12:59 Plt Morphology Comment Not Reportable 03/19/19 12:59 RBC Morphology Normal 03/19/19 12:59 Dimorphic RBCs Not Reportable 03/19/19 12:59 Not Reportable 03/19/19 12:59 Not Reportable 03/19/19 12:59 Not Reportable 03/19/19 12:59 Not Reportable 03/19/19 12:59 Not Reportable 03/19/19 12:59 Not Reportable 03/19/19 12:59 Not Reportable 03/19/19 12:59 Not Reportable 03/19/19 12:59 Not Reportable 03/19/19 12:59 Not Reportable 03/19/19 12:59 Not Reportable 03/19/19 12:59 Not Reportable 03/19/19 12:59 Not Reportable 03/19/19 12:59 Not Reportable 03/19/19 12:59 Not Reportable 03/19/19 12:59 Not Reportable 03/19/19 12:59 Not Reportable 03/19/19 12:59 Not Reportable 03/19/19 12:59 Not Reportable 03/19/19 12:59 Acanthocytes (Spur) Not Reportable 03/19/19 12:59 Rouleaux Not Reportable 03/19/19 12:59 Not Reportable 03/19/19 12:59 Not Reportable 03/19/19 12:59 Not Reportable 03/19/19 12:59 Not Reportable 03/19/19 12:59 Hem Pathologist Commnt No 03/19/19 12:59 POC ABG pH 7.358 (7.35-7.45) 03/20/19 04:41 POC ABG pCO2 30.8 (35-45) L 03/19/19 16:38 POC ABG pO2 65 (80-105) L 03/20/19 04:41 POC ABG HCO3 13.0 (22-26 mml/L) 03/20/19 04:41 POC ABG Total CO2 14 (23-27mmol/L) 03/20/19 04:41 POC ABG O2 Sat 92 03/20/19 04:41 POC ABG Base Excess -12 ((-2) - (+3)mmol/L) 03/20/19 04:41 60 % 07/22/19 04:41 Sodium 149 mmol/L (137-145) H 03/19/19 12:59 Potassium 3.6 mmol/L (3.6-5.0) 03/19/19 12:59 Chloride 109.4 mmol/L (98-107) H 03/19/19 12:59 Carbon Dioxide 23 mmol/L (22-30) 03/19/19 12:59 20 mmol/L 03/19/19 12:59 BUN 51 mg/dL (7-17) H 03/19/19 12:59 3.2 mg/dL (0.7-1.2) H 03/19/19 12:59 Estimated GFR 17 ml/min 03/19/19 12:59 16 % 03/19/19 12:59 Glucose 61 mg/dL (65-100) L 03/20/19 05:50 POC Glucose 75 (70-105) 03/20/19 06:23 Lactic Acid 6.10 mmol/L (0.7-2.0) H* 03/19/19 23:00 Calcium 7.8 mg/dL (8.4-10.2) L 03/19/19 12:59 Magnesium 1.60 mg/dL (1.7-2.3) L 03/20/19 05:50 0.50 mg/dL (0.1-1.2) 03/19/19 12:59 AST 75 units/L (5-40) H 03/19/19 12:59 ALT 19 units/L (7-56) 03/19/19 12:59 39 units/L (35-129) 03/19/19 12:59 1499 units/L (30-135) H 03/19/19 12:59 0.109 ng/mL (0.00-0.029) H* 03/19/19 12:59 5.2 g/dL (6.3-8.2) L 03/19/19 12:59 1.7 g/dL (3.9-5) L 03/19/19 12:59 0.5 % 03/19/19 12:59 Triglycerides 72 mg/dL (2-149) 03/19/19 12:59 Cholesterol 61 mg/dL (50-199) 03/19/19 12:59 22 mg/dL (50-130) L 03/19/19 12:59 31 mg/dL (40-59) L 03/19/19 12:59 1.96 % 03/19/19 12:59 Yellow (Yellow) 03/19/19 12:47 Clear (Clear) 03/19/19 12:47 5.0 (5.0-7.0) 03/19/19 12:47 Ur Specific [place] 1.010 (1.003-1.030) 03/19/19 12:47 <15 mg/dl mg/dL (Negative) 03/19/19 12:47 50 mg/dL (Negative) 03/19/19 12:47 Neg mg/dL (Negative) 03/19/19 12:47 Lg (Negative) 03/19/19 12:47 Neg (Negative) 03/19/19 12:47 Neg (Negative) 03/19/19 12:47 < 2.0 mg/dL (<2.0) 03/19/19 12:47 Ur Leukocyte Esterase Neg (Negative) 03/19/19 12:47 2.0 /HPF (0.0-6.0) 03/19/19 12:47 2.0 /HPF (0.0-6.0) 03/19/19 12:47 U Epithel Cells (Auto) 1.0 /HPF (0-13.0) 03/19/19 12:47 1+ /HPF (Negative) 03/19/19 12:47 Hyaline Casts 3 /LPF 03/19/19 12:47 Few /HPF 03/19/19 12:47 31.8 mg/dL (0.1-20.0) H 03/19/19 15:52 118 mmol/L 03/19/19 15:52 Salicylates < 0.3 mg/dL (2.8-20.0) L 03/19/19 12:59 Acetaminophen < 5.0 ug/mL (10.0-30.0) L 03/19/19 12:59 Active Medications - Current Medications Current Medications: Generic Name Dose Route Start Last Admin Trade Name Freq PRN Reason Stop Dose Admin Albuterol 2.5 mg 03/19/19 23:58 Proventil IH Q3HRT PRN Shortness Of Breath Albuterol/Ipratropium 1 ampul 03/20/19 02:00 03/20/19 01:51 Duoneb *Not For Prn Use* IH 1 ampul Q6HRT YUSUF Administration Lipase/Protease/Amylase 1 each 03/19/19 23:58 Pancreaztiti Sargent 10,500 Unit FEEDTUBE PRN PRN For Clogged Feeding Tube Budesonide 0.5 mg 03/19/19 23:45 03/20/19 01:51 Pulmicort IH 0.5 mg Q12HRT YUSUF Administration Dextrose 50 ml 03/19/19 23:58 03/20/19 07:34 D50w (25gm) Syringe IV 50 ml PRN PRN Administration Hypoglycemia Famotidine 10 mg 03/20/19 00:00 Pepcid IV BID YUSUF Fentanyl 50 mcg 03/19/19 12:45 03/19/19 13:26 Sublimaze IV 50 mcg Q10MIN PRN Administration ANALGESIA Hydromorphone HCl 0.5 mg 03/19/19 23:58 Dilaudid IV Q3H PRN Pain , Severe (7-10) Hydrophilic Ointment 1 applic 03/19/19 12:45 Vaseline Lip Therapy TP Q2HR PRN Dry Lips Fentanyl Citrate 2,000 mcg in 100 mls @ 2.835 mls/hr 03/19/19 14:00 03/19/19 18:40 Fentanyl Drip Premix IV 0 mcg/kg/hr TITR YUSUF 0 mls/hr Titration Protocol 1 MCG/KG/HR Midazolam HCl 100 mg/ Sodium 100 mls @ 2 mls/hr 03/19/19 13:00 Chloride IV TITR YUSUF Protocol 2 MG/HR Sodium Bicarbonate 150 meq/ 1,150 mls @ 75 mls/hr 03/19/19 18:00 03/19/19 18:05 Dextrose IV 75 mls/hr DIRECT YUSUF Administration Amiodarone HCl 900 mg/ 500 mls @ 33.333 mls/hr 03/19/19 20:00 03/20/19 02:57 Dextrose IV 0.5 mg/min DIRECT YUSUF 16.667 mls/hr Infusion Protocol 1 MG/MIN Sodium Chloride 1,000 mls @ 0 mls/hr 03/19/19 20:16 03/19/19 20:29 Nacl 0.9% 1000 Ml IV 07/22/19 20:17 999 mls/hr ONCE YUSUF Administration As Directed Dextrose/Sodium Chloride 1,000 mls @ 100 mls/hr 03/19/19 23:45 D5/0.45ns IV DIRECT YUSUF Cefepime HCl 2 gm in 100 mls @ 200 mls/hr 03/20/19 10:00 Maxipime/Ns 2 Gm/100 Ml IV Q24HR YUSUF Protocol Magnesium Sulfate 2 gm in 50 mls @ 25 mls/hr 03/20/19 07:51 Magnesium Sulfate 2gm/50ml IV 03/20/19 09:50 ONCE ONE Insulin Human Lispro 0 unit 03/20/19 00:00 03/20/19 06:15 Humalog SUB-Q Not Given Q6HR [facility] Protocol Metoclopramide HCl 5 mg 03/20/19 00:12 Reglan IV Q6H PRN Nausea And Vomiting Midazolam HCl 2 mg 03/19/19 12:45 Versed IV Q10MIN PRN Sedation Multi-Ingred Cream/Lotion/Oil/Oint 1 applic 03/19/19 12:45 Artificial Tears Ophth Oint OU Q4HR PRN Dry Eye(s) Ondansetron HCl 4 mg 03/19/19 23:58 Zofran IV Q8H PRN Nausea And Vomiting Promethazine HCl 25 mg 03/19/19 23:[address] Q6H PRN N/V IF NPO AND NO IV ACCESS Simple Syrup 15 ml 03/19/19 23:58 Simple Syrup FEEDTUBE PRN PRN Hypoglycemia Simple Syrup 30 ml 03/19/19 23:58 Simple Syrup FEEDTUBE PRN PRN Hypoglycemia Sodium Bicarbonate 325 mg 03/19/19 23:58 Sodium Bicarbonate FEEDTUBE PRN PRN For Clogged Feeding Tube Sodium Chloride 10 ml 03/20/19 10:00 Sodium Chloride Flush Syringe 10 Ml IV BID YUSUF Sodium Chloride 10 ml 03/19/19 23:58 Sodium Chloride Flush Syringe 10 Ml IV PRN PRN LINE FLUSH
[2019-03-20] MEDS ORDERED: MAGNESIUM SULFATE 2GM/50ML 2 GM/50 ML BAG IV ONE ×2 (09:00→13:11)
[2019-03-20 09:39] LABS: Prealbumin 0.052 g/L (0.200-0.400)
[2019-03-20] MEDS: PEPCID IV SCH ×3 (09:57→21:53)
[2019-03-20] MEDS: CORDARONE 900 MG in D5W 482 ML IV SCH (09:58)
[2019-03-20] MEDS ORDERED: NACL 0.9% 500 ML 500 ML IV ONE (10:00)
[2019-03-20] MEDS ORDERED: D5NS 1,000 ML IV SCH (10:00)
[2019-03-20] MEDS: MAXIPIME/NS 2 GM/100 ML 2 GM/100 ML BAG IV SCH (10:01)
[2019-03-20] MEDS: SODIUM CHLORIDE FLUSH SYRINGE 10 ML IV SCH ×2 (10:50→22:47)
[2019-03-20] MEDS: SODIUM BICARBONATE 150 MEQ in D5W 1,000 ML IV SCH (10:53)
[2019-03-20] MEDS ORDERED: Vasostrict 20 UNIT in NACL 0.9% 100 ML IV SCH (11:00)
--- NOTE | 2019-03-20 14:51 | Consultation ---
History of Present Illness - Reason for Consult Consult date: 03/20/19 acute renal failure - History of Present Illness This is a 73 y/o F who presented to [facility] ED via EMS with AMS and difficulty breathing. Pt was obtunded and desaturating in ED, s/p intubation in ED. On admission, SCr level was 3.2, no chemistry today. Pt in the ICU on ventilator, s/p 0.9% NS Boluses, on Abx, started on D5W + 150 mEq sodium bicarbonate drip at 75 ml/hr. Lactic acid level worsened to 9.70 today. Pt hypotensive in mid 80s systolic, spoke with nurse who states pt will be started on levaphed drip for blood pressure support. CXR today showed interval worsening of right pulmonary opacities, likely representing PNA, on Abx. Pt also on amiodarone drip. CT head showed Encephalomalacia in the entire right cerebral hemisphere, volume loss in the left cerebral hemisphere, I do not see an acute parenchymal lesion in the brain per radiology report. Family at bedside, updated on renal plan . Past History Past Medical History: other (not available) Past Surgical History: Other (not available) Social history: lives with family, full code Family history: hypertension Medications and Allergies Allergies Allergy/AdvReac Type Severity Reaction Status Date / Time No Known Allergies Allergy Unverified 03/19/19 13:11 Home Medications Medication Instructions Recorded Confirmed Last Taken Type Unobtainable 03/20/19 03/20/19 Unknown History Active Meds: Active Medications Albuterol (Proventil) 2.5 mg IH Q3HRT PRN PRN Reason: Shortness Of Breath Albuterol/Ipratropium (Duoneb *Not For Prn Use*) 1 ampul IH Q6HRT [facility] Last Admin: 03/20/19 08:34 Dose: 1 ampul Documented by: Lipase/Protease/Amylase (Pancretobi Dr 10,500 Unit) 1 each FEEDTUBE PRN PRN PRN Reason: For Clogged Feeding Tube Budesonide (Pulmicort) 0.5 mg IH Q12HRT [facility] Last Admin: 03/20/19 08:34 Dose: 0.5 mg Documented by: Dextrose (D50w (25gm) Syringe) 50 ml IV PRN PRN PRN Reason: Hypoglycemia Last Admin: 03/20/19 10:17 Dose: 50 ml Documented by: Famotidine (Pepcid) 10 mg IV BID YUSUF Last Admin: 03/20/19 09:57 Dose: 10 mg Documented by: Fentanyl (Sublimaze) 50 mcg IV Q10MIN PRN PRN Reason: ANALGESIA Last Admin: 03/19/19 13:26 Dose: 50 mcg Documented by: Hydromorphone HCl (Dilaudid) 0.5 mg IV Q3H PRN PRN Reason: Pain , Severe (7-10) Hydrophilic Ointment (Vaseline Lip Therapy) 1 applic TP Q2HR PRN PRN Reason: Dry Lips Fentanyl Citrate (Fentanyl Drip Premix) 2,000 mcg in 100 mls @ 2.835 mls/hr IV TITR YUSUF; Protocol Last Titration: 03/19/19 18:40 Dose: 0 mcg/kg/hr, 0 mls/hr Documented by: Amiodarone HCl 900 mg/ (Dextrose) 500 mls @ 33.333 mls/hr IV DIRECT YUSUF; Pr otocol Last Admin: 03/20/19 09:58 Dose: 0.5 mg/min, 16.667 mls/hr Documented by: Cefepime HCl (Maxipime/Ns 2 Gm/100 Ml) 2 gm in 100 mls @ 200 mls/hr IV Q24HR YUSUF; Protocol Last Admin: 03/20/19 10:01 Dose: 200 mls/hr Documented by: Sodium Bicarbonate 150 meq/ (Dextrose) 1,150 mls @ 75 mls/hr IV DIRECT YUSUF Last Admin: 03/20/19 10:53 Dose: 75 mls/hr Documented by: Norepinephrine (Levophed Drip 4 Mg/Ns 250 Ml) 4 mg in 250 mls @ 7.5 mls/hr IV TITR YUSUF; Protocol Vasopressin 20 unit/ Sodium (Chloride) 101 mls @ 9.09 mls/hr IV TITR YUSUF; Protocol Insulin Human Lispro (Humalog) 0 unit SUB-Q Q6HR YUSUF; Protocol Last Admin: 03/20/19 12:36 Dose: Not Given Documented by: Metoclopramide HCl (Reglan) 5 mg IV Q6H PRN PRN Reason: Nausea And Vomiting Multi-Ingred Cream/Lotion/Oil/Oint (Artificial Tears Ophth Oint) 1 applic OU Q4HR PRN PRN Reason: Dry Eye(s) Ondansetron HCl (Zofran) 4 mg IV Q8H PRN PRN Reason: Nausea And Vomiting Promethazine HCl (Phenergan) 25 mg MD Q6H PRN PRN Reason: N/V IF NPO AND NO IV ACCESS Simple Syrup (Simple Syrup) 15 ml FEEDTUBE PRN PRN PRN Reason: Hypoglycemia Simple Syrup (Simple Syrup) 30 ml FEEDTUBE PRN PRN PRN Reason: Hypoglycemia Sodium Bicarbonate (Sodium Bicarbonate) 325 mg FEEDTUBE PRN PRN PRN Reason: For Clogged Feeding Tube Sodium Chloride (Sodium Chloride Flush Syringe 10 Ml) 10 ml IV BID YUSUF Last Admin: 03/20/19 10:50 Dose: 10 ml Documented by: Sodium Chloride (Sodium Chloride Flush Syringe 10 Ml) 10 ml IV PRN PRN PRN Reason: LINE FLUSH Review of Systems ROS unobtainable: due to endotracheal tube Exam - Vital Signs Vital signs: Vital Signs Temp Pulse Resp BP 98.4 F 131 H 18 69/49 03/19/19 12:47 03/19/19 12:47 03/19/19 12:47 03/19/19 12:47 - General Appearance General appearance: intubated EENT: ATNC Respiratory: Decreased Breath Sounds (intubated on ventilator) Heart: regular, S1S2 Gastrointestinal: Present: normoactive bowel sounds (orogastric tube intact), other (: Adam to gravity draining dory colored urine) Integumentary: warm and dry Neurologic: other (opens eyes, intubated on ventilator) Musculoskeletal: Present: other (trace edema to BLE) Psychiatric: other (unable to obtain) Results - Lab Results 03/19/19 12:59 03/20/19 08:23 Most recent lab results Calcium 7.8 mg/dL (8.4-10.2) L 03/19/19 12:59 Magnesium 1.60 mg/dL (1.7-2.3) L 03/20/19 05:50 31.8 mg/dL (0.1-20.0) H 03/19/19 15:52 118 mmol/L 03/19/19 15:52 Assessment and Plan Assessment: Acute Hypoxic Respiratory Failure Acute Kidney Injury possibly prerenal, ischemic ATN from hypotension, questionable whether underlying CKD process, r/o obstruction: Metabolic Acidosis Sepsis secondary to bilateral PNA Possible RUL Aspiration PNA Hypotension Hypomagnesemia Hypernatremia Elevated Troponin Plan: - Labs pending today - Follow up labs and adjust renal management as needed - On admission, SCr level was 3.2, no other labs available for review - S/p 0.9% NS Boluses - Currently on D5W + 150 mEq sodium bicarbonate infusion at 75 ml/hr - Levaphed drip ordered for blood pressure support - Obtain PTH and phosphorus - Obtain urine lytes/protein - Check Renal US - Follow cultures, on Abx - Renally dose meds - Adam Catheter: Yes - Renal plan d/w Dr Weinstein
[2019-03-20] MEDS: LEVOPHED DRIP 4 MG/NS 250 ML 4 MG/250 ML BAG IV SCH (16:00)
--- NOTE | 2019-03-20 16:19 | Consultation ---
History of Present Illness Consult date: 03/20/19 Reason for consult: other (icu resp fail vent ) Past History Past Medical History: stroke, other (not available) Past Surgical History: Other (not available) Social history: lives with family, full code Family history: hypertension Medications and Allergies Allergies Allergy/AdvReac Type Severity Reaction Status Date / Time No Known Allergies Allergy Unverified 03/19/19 13:11 Home Medications Medication Instructions Recorded Confirmed Last Taken Type Sennosides/Docusate Sodium [Senna 8.6 mg PO BID 03/20/19 03/20/19 Unknown History Plus Tablet] levETIRAcetam [Keppra TAB] 500 mg PO BID 03/20/19 03/20/19 Unknown History Active Meds: Active Medications Albuterol (Proventil) 2.5 mg IH Q3HRT PRN PRN Reason: Shortness Of Breath Albuterol/Ipratropium (Duoneb *Not For Prn Use*) 1 ampul IH Q6HRT [facility] Last Admin: 03/20/19 08:34 Dose: 1 ampul Documented by: Lipase/Protease/Amylase (Pancretobi Dr 10,500 Unit) 1 each FEEDTUBE PRN PRN PRN Reason: For Clogged Feeding Tube Budesonide (Pulmicort) 0.5 mg IH Q12HRT [facility] Last Admin: 03/20/19 08:34 Dose: 0.5 mg Documented by: Dextrose (D50w (25gm) Syringe) 50 ml IV PRN PRN PRN Reason: Hypoglycemia Last Admin: 03/20/19 15:48 Dose: 50 ml Documented by: Famotidine (Pepcid) 10 mg IV BID [facility] Last Admin: 03/20/19 09:57 Dose: 10 mg Documented by: Fentanyl (Sublimaze) 50 mcg IV Q10MIN PRN PRN Reason: ANALGESIA Last Admin: 03/19/19 13:26 Dose: 50 mcg Documented by: Hydromorphone HCl (Dilaudid) 0.5 mg IV Q3H PRN PRN Reason: Pain , Severe (7-10) Hydrophilic Ointment (Vaseline Lip Therapy) 1 applic TP Q2HR PRN PRN Reason: Dry Lips Fentanyl Citrate (Fentanyl Drip Premix) 2,000 mcg in 100 mls @ 2.835 mls/hr IV TITR [facility]; Protocol Last Titration: 03/19/19 18:40 Dose: 0 mcg/kg/hr, 0 mls/hr Documented by: Amiodarone HCl 900 mg/ (Dextrose) 500 mls @ 33.333 mls/hr IV DIRECT [facility]; Protocol Last Admin: 03/20/19 09:58 Dose: 0.5 mg/min, 16.667 mls/hr Documented by: Cefepime HCl (Maxipime/Ns 2 Gm/100 Ml) 2 gm in 100 mls @ 200 mls/hr IV Q24HR [facility]; Protocol Last Admin: 03/20/19 10:01 Dose: 200 mls/hr Documented by: Sodium Bicarbonate 150 meq/ (Dextrose) 1,150 mls @ 75 mls/hr IV DIRECT [facility] Last Admin: 03/20/19 10:53 Dose: 75 mls/hr Documented by: Norepinephrine (Levophed Drip 4 Mg/Ns 250 Ml) 4 mg in 250 mls @ 7.5 mls/hr IV TITR [facility]; Protocol Last Admin: 03/20/19 16:00 Dose: 2 mcg/min, 7.5 mls/hr Documented by: Vasopressin 20 unit/ Sodium (Chloride) 101 mls @ 9.09 mls/hr IV TITR [facility]; Protocol Insulin Human Lispro (Humalog) 0 unit SUB-Q Q6HR [facility]; Protocol Last Admin: 03/20/19 12:36 Dose: Not Given Documented by: Metoclopramide HCl (Reglan) 5 mg IV Q6H PRN PRN Reason: Nausea And Vomiting Multi-Ingred Cream/Lotion/Oil/Oint (Artificial Tears Ophth Oint) 1 applic OU Q4HR PRN PRN Reason: Dry Eye(s) Ondansetron HCl (Zofran) 4 mg IV Q8H PRN PRN Reason: Nausea And Vomiting Promethazine HCl (Phenergan) 25 mg [place] Q6H PRN PRN Reason: N/V IF NPO AND NO IV ACCESS Simple Syrup (Simple Syrup) 15 ml FEEDTUBE PRN PRN PRN Reason: Hypoglycemia Simple Syrup (Simple Syrup) 30 ml FEEDTUBE PRN PRN PRN Reason: Hypoglycemia Sodium Bicarbonate (Sodium Bicarbonate) 325 mg FEEDTUBE PRN PRN PRN Reason: For Clogged Feeding Tube Sodium Chloride (Sodium Chloride Flush Syringe 10 Ml) 10 ml IV BID [facility] Last Admin: 03/20/19 10:50 Dose: 10 ml Documented by: Sodium Chloride (Sodium Chloride Flush Syringe 10 Ml) 10 ml IV PRN PRN PRN Reason: LINE FLUSH Review of Systems ROS unobtainable: due to endotracheal tube Physical Examination Vital signs: Vital Signs Temp Pulse Resp BP 98.4 F 131 H 18 69/49 03/19/19 12:47 03/19/19 12:47 03/19/19 12:47 03/19/19 12:47 General appearance: other (intubated on vent min responsive off sedation) ENT: other (intubated ) Ascultation: Bilateral: diminished breath sounds other (L paresis eyes open tongue out on command ) Results - Laboratory Findings CBC and BMP: 03/19/19 12:59 03/20/19 08:23 ABG POC ABG pH 7.358 (7.35-7.45) 03/20/19 04:41 POC ABG pO2 65 (80-105) L 03/20/19 04:41 POC ABG HCO3 13.0 (22-26 mml/L) 03/20/19 04:41 POC ABG Total CO2 14 (23-27mmol/L) 03/20/19 04:41 POC ABG O2 Sat 92 03/20/19 04:41 Abnormal lab findings: Abnormal Labs 03/19/19 03/19/19 03/19/19 12:59 12:59 12:59 RBC 3.44 L MCV 101 H MCH 34 H Plt Count 98 L Seg Neuts % (Manual) 11.0 L Monocytes % (Manual) 10.0 H Nucleated RBC % 1.0 H Seg Neutrophils # Man 0.6 L POC ABG pH POC ABG pCO2 POC ABG pO2 Sodium 149 H Chloride 109.4 H BUN 51 H Creatinine 3.2 H Glucose 58 L POC Glucose Lactic Acid 7.60 H* Calcium 7.8 L Magnesium 1.60 L AST 75 H Total Creatine Kinase 1499 H Troponin T 0.109 H* Total Protein 5.2 L Albumin 1.7 L Prealbumin LDL Cholesterol Direct 22 L HDL Cholesterol 31 L Urine Creatinine Salicylates Acetaminophen 03/19/19 03/19/19 03/19/19 12:59 12:59 14:48 RBC MCV MCH Plt Count Seg Neuts % (Manual) Monocytes % (Manual) Nucleated RBC % Seg Neutrophils # Man POC ABG pH POC ABG pCO2 POC ABG pO2 Sodium Chloride BUN Creatinine Glucose POC Glucose 44 L Lactic Acid Calcium Magnesium AST Total Creatine Kinase Troponin T Total Protein Albumin Prealbumin LDL Cholesterol Direct HDL Cholesterol Urine Creatinine Salicylates < 0.3 L Acetaminophen < 5.0 L 03/19/19 03/19/19 03/19/19 15:33 15:52 16:26 RBC MCV MCH Plt Count Seg Neuts % (Manual) Monocytes % (Manual) Nucleated RBC % Seg Neutrophils # Man POC ABG pH POC ABG pCO2 POC ABG pO2 Sodium Chloride BUN Creatinine Glucose POC Glucose 228 H 231 H Lactic Acid Calcium Magnesium AST Total Creatine Kinase Troponin T Total Protein Albumin Prealbumin LDL Cholesterol Direct HDL Cholesterol Urine Creatinine 31.8 H Salicylates Acetaminophen 03/19/19 03/19/19 03/19/19 16:38 17:14 18:43 RBC MCV MCH Plt Count Seg Neuts % (Manual) Monocytes % (Manual) Nucleated RBC % Seg Neutrophils # Man POC ABG pH 7.196 L POC ABG pCO2 30.8 L POC ABG pO2 Sodium Chloride BUN Creatinine Glucose POC Glucose 235 H Lactic Acid 8.10 H* Calcium Magnesium AST Total Creatine Kinase Troponin T Total Protein Albumin Prealbumin LDL Cholesterol Direct HDL Cholesterol Urine Creatinine Salicylates Acetaminophen 03/19/19 03/19/19 03/19/19 18:52 20:00 20:56 RBC MCV MCH Plt Count Seg Neuts % (Manual) Monocytes % (Manual) Nucleated RBC % Seg Neutrophils # Man POC ABG pH POC ABG pCO2 POC ABG pO2 Sodium Chloride BUN Creatinine Glucose POC Glucose 240 H 117 H Lactic Acid 5.90 H* Calcium Magnesium AST Total Creatine Kinase Troponin T Total Protein Albumin Prealbumin LDL Cholesterol Direct HDL Cholesterol Urine Creatinine Salicylates Acetaminophen 03/19/19 03/19/19 03/19/19 21:19 22:07 23:00 RBC MCV MCH Plt Count Seg Neuts % (Manual) Monocytes % (Manual) Nucleated RBC % Seg Neutrophils # Man POC ABG pH POC ABG pCO2 POC ABG pO2 Sodium Chloride BUN Creatinine Glucose POC Glucose < 40 L 136 H Lactic Acid 6.10 H* Calcium Magnesium AST Total Creatine Kinase Troponin T Total Protein Albumin Prealbumin LDL Cholesterol Direct HDL Cholesterol Urine Creatinine Salicylates Acetaminophen 03/20/19 03/20/19 03/20/19 00:05 01:38 02:23 RBC MCV MCH Plt Count Seg Neuts % (Manual) Monocytes % (Manual) Nucleated RBC % Seg Neutrophils # Man POC ABG pH POC ABG pCO2 POC ABG pO2 Sodium Chloride BUN Creatinine Glucose POC Glucose 68 L 153 H 127 H Lactic Acid Calcium Magnesium AST Total Creatine Kinase Troponin T Total Protein Albumin Prealbumin LDL Cholesterol Direct HDL Cholesterol Urine Creatinine Salicylates Acetaminophen 03/20/19 03/20/19 03/20/19 03:12 04:31 04:41 RBC MCV MCH Plt Count Seg Neuts % (Manual) Monocytes % (Manual) Nucleated RBC % Seg Neutrophils # Man POC ABG pH POC ABG pCO2 POC ABG pO2 53 L 65 L Sodium Chloride BUN Creatinine Glucose POC Glucose 109 H Lactic Acid Calcium Magnesium AST Total Creatine Kinase Troponin T Total Protein Albumin Prealbumin LDL Cholesterol Direct HDL Cholesterol Urine Creatinine Salicylates Acetaminophen 03/20/19 03/20/19 03/20/19 05:50 07:29 08:14 RBC MCV MCH Plt Count Seg Neuts % (Manual) Monocytes % (Manual) Nucleated RBC % Seg Neutrophils # Man POC ABG pH POC ABG pCO2 POC ABG pO2 Sodium Chloride BUN Creatinine Glucose 61 L POC Glucose 47 L 153 H Lactic Acid Calcium Magnesium 1.60 L AST Total Creatine Kinase Troponin T Total Protein Albumin Prealbumin LDL Cholesterol Direct HDL Cholesterol Urine Creatinine Salicylates Acetaminophen 03/20/19 03/20/19 03/20/19 08:23 08:23 10:59 RBC MCV MCH Plt Count Seg Neuts % (Manual) Monocytes % (Manual) Nucleated RBC % Seg Neutrophils # Man POC ABG pH POC ABG pCO2 POC ABG pO2 Sodium Chloride BUN Creatinine Glucose 101 H POC Glucose 233 H Lactic Acid 9.70 H* Calcium Magnesium AST Total Creatine Kinase Troponin T Total Protein Albumin Prealbumin 0.052 L LDL Cholesterol Direct HDL Cholesterol Urine Creatinine Salicylates Acetaminophen 03/20/19 12:23 RBC MCV MCH Plt Count Seg Neuts % (Manual) Monocytes % (Manual) Nucleated RBC % Seg Neutrophils # Man POC ABG pH POC ABG pCO2 POC ABG pO2 Sodium Chloride BUN Creatinine Glucose POC Glucose 135 H Lactic Acid Calcium Magnesium AST Total Creatine Kinase Troponin T Total Protein Albumin Prealbumin LDL Cholesterol Direct HDL Cholesterol Urine Creatinine Salicylates Acetaminophen - Diagnostic Findings Chest x-ray: image reviewed (ET ok patchy R infiltrate ) Assessment and Plan 03/20 Resp Fail on vent suspect septic AMS prev stroke pneu P: vent support abx monitor bp support
[2019-03-20 17:18] LABS: Creatinine,Urine 53.7 mg/dL (0.1-20.0); Microalbumin/Creatinine Ratio 70.7 ug/mg
[2019-03-20 18:21] LABS: Hematocrit 29.3 % (30.3-42.9); Mean Corpuscular HGB Conc 34 % (30-34); Mean Corpuscular Volume 100 fl (79-97); Red Blood Count 2.92 M/mm3 (3.65-5.03); Red Cell Distribution Width 14.3 % (13.2-15.2)
[2019-03-20 18:41] LABS: Calcium 6.9 mg/dL (8.4-10.2)
[2019-03-20 18:58] LABS: Platelet Count 81 K/mm3 (140-440)
[2019-03-20] MEDS ORDERED: VANCOMYCIN/NS 1 GM/250 ML 1 GM/250 ML BAG IV ONE (21:47)
[2019-03-20] MEDS: KCL 10MEQ/100ML 10 MEQ/100 ML BAG IV SCH (21:58)
[2019-03-20] MEDS ORDERED: VANCOMYCIN 750 MG in NACL 0.9% 250ML 250 ML IV ONE (22:00)
[2019-03-21] MEDS: HumaLOG SUB-Q SCH ×4 (00:03→20:02)
[2019-03-21] MEDS: LEVOPHED DRIP 4 MG/NS 250 ML 4 MG/250 ML BAG IV SCH ×3 (01:16→11:56)
--- NOTE | 2019-03-21 02:54 | XRay Report ---
CHEST 1 VIEW 03/21/2019 2:08 AM INDICATION / CLINICAL INFORMATION: follow up respiratory failure. COMPARISON: One view of the chest from 03/20/2019. FINDINGS: The patient is rotated to the left. SUPPORT DEVICES: The ET tube has retracted and the tip is now seen at the level of the clavicular hea ds. There is stable positioning of the NG tube. HEART / MEDIASTINUM: Stable. LUNGS / PLEURA: Reduced lung volumes are noted with persistent right basilar opacities. The previousl y seen right upper lobe opacities have improved. There are increased opacities along the left lung ba se. No significant pleural effusion. No pneumothorax. ADDITIONAL FINDINGS: No significant additional findings. IMPRESSION: Interval improvement of the right pulmonary opacities with new opacities along the left lung base. At electasis/pneumonia are considerations. Signer Name: Chin Morris MD Signed: 03/21/2019 2:50 AM Workstation Name: [id number]
[2019-03-21] MEDS: SODIUM BICARBONATE 150 MEQ in D5W 1,000 ML IV SCH (03:01)
[2019-03-21] MEDS: KCL 10MEQ/100ML 10 MEQ/100 ML BAG IV SCH ×4 (03:50→05:51)
[2019-03-21] MEDS: DUONEB *Not for PRN Use IH SCH ×4 (04:31→20:38)
[2019-03-21 04:36] LABS: Hematocrit 28.3 % (30.3-42.9); Hemoglobin 9.5 gm/dl (10.1-14.3); Mean Corpuscular HGB Conc 33 % (30-34); Mean Corpuscular Volume 100 fl (79-97); Red Blood Count 2.84 M/mm3 (3.65-5.03); Red Cell Distribution Width 13.9 % (13.2-15.2)
[2019-03-21 04:37] LABS: Platelet Count 79 K/mm3 (140-440)
[2019-03-21 05:05] LABS: Calcium 6.8 mg/dL (8.4-10.2)
[2019-03-21] MEDS: PULMICORT IH SCH ×2 (07:28→20:38)
[2019-03-21] MEDS: SODIUM CHLORIDE FLUSH SYRINGE 10 ML IV SCH ×2 (10:06→22:44)
[2019-03-21] MEDS: MAXIPIME/NS 2 GM/100 ML 2 GM/100 ML BAG IV SCH (10:06)
[2019-03-21] MEDS: VANCOMYCIN/NS 1 GM/250 ML 1 GM/250 ML BAG IV SCH (10:10)
[2019-03-21] MEDS: D50W (25GM) Syringe IV PRN ×2 (10:23→16:29)
[2019-03-21] MEDS: PEPCID IV SCH ×2 (10:23→21:32)
[2019-03-21] MEDS: KEPPRA 750 MG in D5W 100 ML IV SCH ×2 (11:04→22:43)
[2019-03-21] MEDS: BABY ASPIRIN PO SCH (11:04)
--- NOTE | 2019-03-21 11:26 | Consultation ---
History of Present Illness - Reason for Consult Consult date: 03/21/19 elevated lactate Requesting physician: CARITO CANO - History of Present Illness 73 y/o female with history of dementia admitted on brought by EMS due to altered mental status. Patient was in home hospice. History is limited, patient is currently intubated. EMS verbally reports low-grade temperature in the field, hypoglycemia, and hypoxia. In the ED, patient was intubated. In the ED, temp 98. 4, HR 131, R 18, BP 69/49. UA negative. CXR shows moderate bibasilar lung consolidation and slight right upper lobe consolidation as well. No edema or effusions. CT head without contrast shows encephalomalacia in the entire right cerebral hemisphere, volume loss in the left cerebral hemisphere, no acute parenchymal lesion in the brain. Upon arrival to the emergency room, the patient is obtunded, breathing without difficulty, desaturating, without a gag reflex. Blood culture 03/19/2019 no growth. Urine culture 03/19/2019 negative. Currently on levophed at 12. Review of Systems: unable to obtain Past History Past Medical History: stroke, other (not available) Past Surgical History: Other (not available) Social history: lives with family, full code Family history: hypertension Medications and Allergies Allergies Allergy/AdvReac Type Severity Reaction Status Date / Time No Known Allergies Allergy Unverified 03/19/19 13:11 Home Medications Medication Instructions Recorded Confirmed Last Taken Type Aspirin EC 81 mg PO DAILY 03/20/19 03/20/19 Unknown History Divalproex Sodium 375 mg PO Q8H PRN 03/20/19 03/20/19 Unknown History Metoprolol [Lopressor TAB] 50 mg PO BID 03/20/19 03/20/19 Unknown History Sennosides/Docusate Sodium [Senna 8.6 mg PO BID PRN 03/20/19 03/20/19 Unknown History Plus Tablet] levETIRAcetam [Keppra TAB] 500 mg PO BID 03/20/19 03/20/19 Unknown History Active Meds: Active Medications Albuterol (Proventil) 2.5 mg IH Q3HRT PRN PRN Reason: Shortness Of Breath Albuterol/Ipratropium (Duoneb *Not For Prn Use*) 1 ampul IH Q6HRT [facility] Last Admin: 03/21/19 07:27 Dose: 1 ampul Documented by: Lipase/Protease/Amylase (Pancreaze Dr 10,500 Unit) 1 each FEEDTUBE PRN PRN PRN Reason: For Clogged Feeding Tube Aspirin (Baby Aspirin) 81 mg PO DAILY [facility] Last Admin: 03/21/19 11:04 Dose: Not Given Documented by: Budesonide (Pulmicort) 0.5 mg IH Q12HRT [facility] Last Admin: 03/21/19 07:28 Dose: 0.5 mg Documented by: Dextrose (D50w (25gm) Syringe) 50 ml IV PRN PRN PRN Reason: Hypoglycemia Last Admin: 03/21/19 10:23 Dose: 50 ml Documented by: Famotidine (Pepcid) 10 mg IV BID [facility] Last Admin: 03/21/19 10:23 Dose: 10 mg Documented by: Fentanyl (Sublimaze) 50 mcg IV Q10MIN PRN PRN Reason: ANALGESIA Last Admin: 03/19/19 13:26 Dose: 50 mcg Documented by: Hydromorphone HCl (Dilaudid) 0.5 mg IV Q3H PRN PRN Reason: Pain , Severe (7-10) Hydrophilic Ointment (Vaseline Lip Therapy) 1 applic TP Q2HR PRN PRN Reason: Dry Lips Fentanyl Citrate (Fentanyl Drip Premix) 2,000 mcg in 100 mls @ 2.835 mls/hr IV TITR [facility]; Protocol Last Titration: 03/19/19 18:40 Dose: 0 mcg/kg/hr, 0 mls/hr Documented by: Amiodarone HCl 900 mg/ (Dextrose) 500 mls @ 33.333 mls/hr IV DIRECT [facility]; Protocol Last Admin: 03/20/19 09:58 Dose: 0.5 mg/min, 16.667 mls/hr Documented by: Cefepime HCl (Maxipime/Ns 2 Gm/100 Ml) 2 gm in 100 mls @ 200 mls/hr IV Q24HR [facility]; Protocol Last Admin: 03/21/19 10:06 Dose: 200 mls/hr Documented by: Sodium Bicarbonate 150 meq/ (Dextrose) 1,150 mls @ 75 mls/hr IV DIRECT [facility] Last Admin: 03/21/19 03:01 Dose: 75 mls/hr Documented by: Norepinephrine (Levophed Drip 4 Mg/Ns 250 Ml) 4 mg in 250 mls @ 7.5 mls/hr IV TITR [facility]; Protocol Last Titration: 03/21/19 11:13 Dose: 10 mcg/min, 37.5 mls/hr Documented by: Vasopressin 20 unit/ Sodium (Chloride) 101 mls @ 9.09 mls/hr IV TITR [facility]; Protocol Vancomycin HCl (Vancomycin/Ns 1 Gm/250 Ml) 1 gm in 250 mls @ 167.007 mls/hr IV Q24HR [facility] Last Admin: 03/21/19 10:10 Dose: 167.007 mls/hr Documented by: Levetiracetam 750 mg/ Dextrose 107.5 mls @ 400 mls/hr IV Q12HR [facility] Last Admin: 03/21/19 11:04 Dose: 400 mls/hr Documented by: Insulin Human Lispro (Humalog) 0 unit SUB-Q Q6HR [facility]; Protocol Last Admin: 03/21/19 11:05 Dose: Not Given Documented by: Metoclopramide HCl (Reglan) 5 mg IV Q6H PRN PRN Reason: Nausea And Vomiting Multi-Ingred Cream/Lotion/Oil/Oint (Artificial Tears Ophth Oint) 1 applic OU Q4HR PRN PRN Reason: Dry Eye(s) Ondansetron HCl (Zofran) 4 mg IV Q8H PRN PRN Reason: Nausea And Vomiting Promethazine HCl (Phenergan) 25 mg [place] Q6H PRN PRN Reason: N/V IF NPO AND NO IV ACCESS Simple Syrup (Simple Syrup) 15 ml FEEDTUBE PRN PRN PRN Reason: Hypoglycemia Simple Syrup (Simple Syrup) 30 ml FEEDTUBE PRN PRN PRN Reason: Hypoglycemia Sodium Bicarbonate (Sodium Bicarbonate) 325 mg FEEDTUBE PRN PRN PRN Reason: For Clogged Feeding Tube Sodium Chloride (Sodium Chloride Flush Syringe 10 Ml) 10 ml IV BID [facility] Last Admin: 03/21/19 10:06 Dose: 10 ml Documented by: Sodium Chloride (Sodium Chloride Flush Syringe 10 Ml) 10 ml IV PRN PRN PRN Reason: LINE FLUSH Physical Examination - Physical Exam Narrative exam: General appearance: alert intubated Eyes: anicteric sclerae, moist conjunctivae; no lid-lag; PERRLA HENT: Atraumatic; oropharynx +ETT Lungs: CTA CV: RRR Abdomen: Soft, non-tender Extremities: vaughn edema, no cyanosis Skin: No rash. Psych: no agitated Neuro: alert no agitated - Constitutional Vitals: Vital Signs Temp Pulse Resp BP Pulse Ox 100.9 F H 143 H 32 H 121/65 99 03/21/19 08:00 03/21/19 11:15 03/21/19 11:15 03/21/19 11:15 03/21/19 11:15 Temperature -Last 24 Hours Temperature 100.9 F Temperature 100.3 F Temperature 99.1 F Temperature 101.7 F Temperature 99.3 F Temperature 97.5 F Results - Labs CBC & Chem 7: 03/21/19 04:12 03/21/19 08:08 Labs: Abnormal lab results 03/20/19 03/20/19 03/20/19 Range/Units 10:59 12:23 16:10 RBC (3.65-5.03) M/mm3 Hgb (10.1-14.3) gm/dl Hct (30.3-42.9) % MCV (79-97) fl MCH (28-32) pg Plt Count (140-440) K/mm3 POC ABG pH (7.35-7.45) Potassium (3.6-5.0) mmol/L Carbon Dioxide (22-30) mmol/L BUN (7-17) mg/dL Creatinine (0.7-1.2) mg/dL Glucose (65-100) mg/dL POC Glucose 233 H 135 H 171 H (70-105) Lactic Acid (0.7-2.0) mmol/L Calcium (8.4-10.2) mg/dL Phosphorus (2.5-4.5) mg/dL PTH Intact (15-65) pg/mL Urine Creatinine (0.1-20.0) mg/dL Urine Total Protein (5-11.8) mg/dL 03/20/19 03/20/19 03/20/19 Range/Units 16:40 16:57 17:38 RBC (3.65-5.03) M/mm3 Hgb (10.1-14.3) gm/dl Hct (30.3-42.9) % MCV (79-97) fl MCH (28-32) pg Plt Count (140-440) K/mm3 POC ABG pH (7.35-7.45) Potassium (3.6-5.0) mmol/L Carbon Dioxide (22-30) mmol/L BUN (7-17) mg/dL Creatinine (0.7-1.2) mg/dL Glucose (65-100) mg/dL POC Glucose 152 H 147 H (70-105) Lactic Acid (0.7-2.0) mmol/L Calcium (8.4-10.2) mg/dL Phosphorus (2.5-4.5) mg/dL PTH Intact (15-65) pg/mL Urine Creatinine 53.7 H (0.1-20.0) mg/dL Urine Total Protein 36 H (5-11.8) mg/dL 03/20/19 03/20/19 03/20/19 Range/Units 17:50 17:50 17:50 RBC 2.92 L (3.65-5.03) M/mm3 Hgb 10.0 L (10.1-14.3) gm/dl Hct 29.3 L (30.3-42.9) % MCV 100 H (79-97) fl MCH 34 H (28-32) pg Plt Count 81 L (140-440) K/mm3 POC ABG pH (7.35-7.45) Potassium 2.8 L* D (3.6-5.0) mmol/L Carbon Dioxide (22-30) mmol/L BUN 30 H (7-17) mg/dL Creatinine 1.6 H (0.7-1.2) mg/dL Glucose 107 H (65-100) mg/dL POC Glucose (70-105) Lactic Acid 9.90 H* (0.7-2.0) mmol/L Calcium 6.9 L (8.4-10.2) mg/dL Phosphorus 2.00 L (2.5-4.5) mg/dL PTH Intact (15-65) pg/mL Urine Creatinine (0.1-20.0) mg/dL Urine Total Protein (5-11.8) mg/dL 03/20/19 03/20/19 03/21/19 Range/Units 17:50 21:12 00:30 RBC (3.65-5.03) M/mm3 Hgb (10.1-14.3) gm/dl Hct (30.3-42.9) % MCV (79-97) fl MCH (28-32) pg Plt Count (140-440) K/mm3 POC ABG pH (7.35-7.45) Potassium (3.6-5.0) mmol/L Carbon Dioxide (22-30) mmol/L BUN (7-17) mg/dL Creatinine (0.7-1.2) mg/dL Glucose (65-100) mg/dL POC Glucose (70-105) Lactic Acid 8.70 H* 9.40 H* (0.7-2.0) mmol/L Calcium (8.4-10.2) mg/dL Phosphorus (2.5-4.5) mg/dL PTH Intact 171.6 H (15-65) pg/mL Urine Creatinine (0.1-20.0) mg/dL Urine Total Protein (5-11.8) mg/dL 03/21/19 03/21/19 03/21/19 Range/Units 04:12 04:12 04:12 RBC 2.84 L (3.65-5.03) M/mm3 Hgb 9.5 L (10.1-14.3) gm/dl Hct 28.3 L (30.3-42.9) % MCV 100 H (79-97) fl MCH 33 H (28-32) pg Plt Count 79 L (140-440) K/mm3 POC ABG pH (7.35-7.45) Potassium 3.0 L (3.6-5.0) mmol/L Carbon Dioxide 21 L (22-30) mmol/L BUN (7-17) mg/dL Creatinine 1.4 H (0.7-1.2) mg/dL Glucose 103 H (65-100) mg/dL POC Glucose (70-105) Lactic Acid 9.50 H* (0.7-2.0) mmol/L Calcium 6.8 L (8.4-10.2) mg/dL Phosphorus (2.5-4.5) mg/dL PTH Intact (15-65) pg/mL Urine Creatinine (0.1-20.0) mg/dL Urine Total Protein (5-11.8) mg/dL 03/21/19 03/21/19 03/21/19 Range/Units 04:43 08:06 08:08 RBC (3.65-5.03) M/mm3 Hgb (10.1-14.3) gm/dl Hct (30.3-42.9) % MCV (79-97) fl MCH (28-32) pg Plt Count (140-440) K/mm3 POC ABG pH 7.456 H (7.35-7.45) Potassium 3.5 L (3.6-5.0) mmol/L Carbon Dioxide (22-30) mmol/L BUN 22 H (7-17) mg/dL Creatinine 1.3 H (0.7-1.2) mg/dL Glucose (65-100) mg/dL POC Glucose (70-105) Lactic Acid 8.00 H* (0.7-2.0) mmol/L Calcium 7.0 L (8.4-10.2) mg/dL Phosphorus (2.5-4.5) mg/dL PTH Intact (15-65) pg/mL Urine Creatinine (0.1-20.0) mg/dL Urine Total Protein (5-11.8) mg/dL 03/21/19 03/21/19 Range/Units 10:11 11:17 RBC (3.65-5.03) M/mm3 Hgb (10.1-14.3) gm/dl Hct (30.3-42.9) % MCV (79-97) fl MCH (28-32) pg Plt Count (140-440) K/mm3 POC ABG pH (7.35-7.45) Potassium (3.6-5.0) mmol/L Carbon Dioxide (22-30) mmol/L BUN (7-17) mg/dL Creatinine (0.7-1.2) mg/dL Glucose (65-100) mg/dL POC Glucose 64 L 173 H (70-105) Lactic Acid (0.7-2.0) mmol/L Calcium (8.4-10.2) mg/dL Phosphorus (2.5-4.5) mg/dL PTH Intact (15-65) pg/mL Urine Creatinine (0.1-20.0) mg/dL Urine Total Protein (5-11.8) mg/dL Assessment and Plan Cultures/ID related labs: Blood culture 03/19/2019 no growth. Urine culture 03/19/2019 negative. Assessment: 73 y/o female with history of dementia admitted on 03/20/2019 brought by EMS due to altered mental status: 1) Sepsis with septic shock: present on admission with fever, tachycardia, hypotension, very elevated lactate; source pneumonia. UA negative. Blood culture 03/19/2019 no growth. Urine culture 03/19/2019 negative. 2) Bilateral pneumonia: ? aspiration v/s CAP 3) Acute encephalopathy: CT head without contrast shows encephalomalacia in the entire right cerebral hemisphere, volume loss in the left cerebral hemisphere, no acute parenchymal lesion in the brain. 4) Acute respiratory failure 5) HA: renally adjusted all antibiotics Recommendations: continue cefepime and vancomycin renally adjusted add flagyl aspiration precautions Guarded prognosis Will follow. Claire Lyn MD Infectious Diseases [employer] [facility] M [phone] O [phone]
[2019-03-21] MEDS ORDERED: HEPARIN SUB-Q SCH (11:45)
--- NOTE | 2019-03-21 11:51 | Progress Note ---
Assessment and Plan Acute Hypoxic Respiratory Failure Acute Kidney Injury possibly prerenal, ischemic ATN from hypotension, questionable whether underlying CKD process, r/o obstruction: Metabolic Acidosis Sepsis secondary to bilateral PNA Possible RUL Aspiration PNA Hypotension Hypomagnesemia Hypernatremia Elevated Troponin Plan: - Cr is improving, good UOP - will d/c bicarb gtt and start NS 75 cc/h - Levaphed drip ordered for blood pressure support - Follow cultures, on Abx - Renally dose meds Rich Weinstein MD [phone] Subjective Date of service: 03/21/19 Principal diagnosis: acute renal failure Interval history: intubated and sedated, at bedside, all questions answered Objective - Vital Signs Vital signs: Vital Signs - 12hr 03/21/19 03/21/19 03/21/19 00:00 00:01 00:13 Temperature Pulse Rate 135 H 130 H 134 H Pulse Rate [ Anterior Bilateral Throughout] Pulse Rate [ 135 H From Monitor] Respiratory 24 25 H 18 Rate Respiratory Rate [Anterior Bilateral Throughout] Blood Pressure 111/59 76/38 O2 Sat by Pulse 100 99 100 Oximetry 03/21/19 03/21/19 03/21/19 00:15 00:16 00:19 Temperature 99.1 F Pulse Rate 136 H 135 H Pulse Rate [ Anterior Bilateral Throughout] Pulse Rate [ From Monitor] Respiratory 20 Rate Respiratory Rate [Anterior Bilateral Throughout] Blood Pressure 112/62 112/62 O2 Sat by Pulse 99 100 Oximetry 03/21/19 03/21/19 03/21/19 00:30 00:45 01:00 Temperature Pulse Rate 129 H 124 H 129 H Pulse Rate [ Anterior Bilateral Throughout] Pulse Rate [ From Monitor] Respiratory 19 22 21 Rate Respiratory Rate [Anterior Bilateral Throughout] Blood Pressure 100/54 99/53 99/53 O2 Sat by Pulse 100 100 100 Oximetry 03/21/19 03/21/19 03/21/19 01:15 01:30 01:45 Temperature Pulse Rate 149 H 130 H 134 H Pulse Rate [ Anterior Bilateral Throughout] Pulse Rate [ From Monitor] Respiratory 26 H 19 18 Rate Respiratory Rate [Anterior Bilateral Throughout] Blood Pressure 83/41 106/57 96/54 O2 Sat by Pulse 97 99 99 Oximetry 03/21/19 03/21/19 03/21/19 02:00 02:15 02:30 Temperature Pulse Rate 128 H 130 H 118 H Pulse Rate [ Anterior Bilateral Throughout] Pulse Rate [ From Monitor] Respiratory 18 23 19 Rate Respiratory Rate [Anterior Bilateral Throughout] Blood Pressure 99/53 105/59 90/51 O2 Sat by Pulse 100 99 100 Oximetry 03/21/19 03/21/19 03/21/19 02:45 03:01 03:15 Temperature Pulse Rate 132 H 133 H 121 H Pulse Rate [ Anterior Bilateral Throughout] Pulse Rate [ From Monitor] Respiratory 25 H 30 H 22 Rate Respiratory Rate [Anterior Bilateral Throughout] Blood Pressure 72/42 100/72 100/57 O2 Sat by Pulse 100 100 100 Oximetry 03/21/19 03/21/19 03/21/19 03:30 03:45 04:00 Temperature 100.3 F H Pulse Rate 132 H 128 H 143 H Pulse Rate [ Anterior Bilateral Throughout] Pulse Rate [ 143 H From Monitor] Respiratory 20 24 25 H Rate Respiratory Rate [Anterior Bilateral Throughout] Blood Pressure 98/60 109/54 115/60 O2 Sat by Pulse 100 99 Oximetry 03/21/19 03/21/19 03/21/19 04:15 04:30 04:31 Temperature Pulse Rate 135 H 140 H Pulse Rate [ 135 H Anterior Bilateral Throughout] Pulse Rate [ From Monitor] Respiratory 30 H 30 H Rate Respiratory 26 H Rate [Anterior Bilateral Throughout] Blood Pressure 118/58 109/54 O2 Sat by Pulse 98 99 Oximetry 03/21/19 03/21/19 03/21/19 04:40 04:45 05:00 Temperature Pulse Rate 133 H 140 H 144 H Pulse Rate [ Anterior Bilateral Throughout] Pulse Rate [ From Monitor] Respiratory 15 30 H Rate Respiratory Rate [Anterior Bilateral Throughout] Blood Pressure 110/63 117/66 O2 Sat by Pulse 100 98 99 Oximetry 03/21/19 03/21/19 03/21/19 05:15 05:30 05:45 Temperature Pulse Rate 140 H 145 H 150 H Pulse Rate [ Anterior Bilateral Throughout] Pulse Rate [ From Monitor] Respiratory 24 21 24 Rate Respiratory Rate [Anterior Bilateral Throughout] Blood Pressure 110/59 120/64 116/61 O2 Sat by Pulse 99 100 97 Oximetry 03/21/19 03/21/19 03/21/19 06:00 06:15 06:30 Temperature Pulse Rate 140 H 151 H 139 H Pulse Rate [ Anterior Bilateral Throughout] Pulse Rate [ From Monitor] Respiratory 29 H 29 H 29 H Rate Respiratory Rate [Anterior Bilateral Throughout] Blood Pressure 104/64 112/61 107/65 O2 Sat by Pulse 99 98 100 Oximetry 03/21/19 03/21/19 03/21/19 06:45 07:00 07:15 Temperature Pulse Rate 134 H 133 H 146 H Pulse Rate [ Anterior Bilateral Throughout] Pulse Rate [ From Monitor] Respiratory 21 29 H 20 Rate Respiratory Rate [Anterior Bilateral Throughout] Blood Pressure 109/63 101/69 96/47 O2 Sat by Pulse 100 100 98 Oximetry 03/21/19 03/21/19 03/21/19 07:28 07:31 07:45 Temperature Pulse Rate 138 H 140 H Pulse Rate [ 142 H Anterior Bilateral Throughout] Pulse Rate [ From Monitor] Respiratory 20 18 Rate Respiratory 16 Rate [Anterior Bilateral Throughout] Blood Pressure 102/54 118/80 O2 Sat by Pulse 98 100 Oximetry 03/21/19 03/21/19 03/21/19 08:00 08:14 08:15 Temperature 100.9 F H Pulse Rate 156 H 142 H 143 H Pulse Rate [ Anterior Bilateral Throughout] Pulse Rate [ 142 H From Monitor] Respiratory 26 H 21 Rate Respiratory Rate [Anterior Bilateral Throughout] Blood Pressure 118/80 102/54 117/63 O2 Sat by Pulse 99 98 100 Oximetry 03/21/19 03/21/19 03/21/19 08:30 08:45 09:00 Temperature Pulse Rate 151 H 135 H 144 H Pulse Rate [ Anterior Bilateral Throughout] Pulse Rate [ From Monitor] Respiratory 17 14 26 H Rate Respiratory Rate [Anterior Bilateral Throughout] Blood Pressure 113/64 110/60 96/66 O2 Sat by Pulse 100 100 100 Oximetry 03/21/19 03/21/19 03/21/19 09:15 09:30 09:45 Temperature Pulse Rate 136 H 141 H 148 H Pulse Rate [ Anterior Bilateral Throughout] Pulse Rate [ From Monitor] Respiratory 21 20 25 H Rate Respiratory Rate [Anterior Bilateral Throughout] Blood Pressure 101/68 100/60 110/61 O2 Sat by Pulse 100 100 99 Oximetry 03/21/19 03/21/19 03/21/19 10:00 10:15 10:30 Temperature Pulse Rate 134 H 131 H 142 H Pulse Rate [ Anterior Bilateral Throughout] Pulse Rate [ From Monitor] Respiratory 23 23 27 H Rate Respiratory Rate [Anterior Bilateral Throughout] Blood Pressure 109/55 108/64 120/56 O2 Sat by Pulse 100 100 98 Oximetry 07/03/21/19 03/21/19 10:45 11:00 11:15 Temperature Pulse Rate 142 H 138 H 143 H Pulse Rate [ Anterior Bilateral Throughout] Pulse Rate [ From Monitor] Respiratory 30 H 26 H 32 H Rate Respiratory Rate [Anterior Bilateral Throughout] Blood Pressure 121/64 122/66 121/65 O2 Sat by Pulse 98 99 99 Oximetry - General Appearance General appearance: cachectic, sedated on ventilator EENT: ATNC, mucous membranes dry Neck: no JVD, no carotid bruit Respiratory: Present: Clear to Ascultation Cardiology: regular, S1S2 Gastrointestinal: normoactive bowel sounds, no tenderness, no distended Integumentary: no rash, warm and dry Neurologic: other (intubated) Musculoskeletal: other (no edema in BLE) Psychiatric: other (intubated) - Lab 03/21/19 04:12 03/21/19 08:08 Most recent lab results Calcium 7.0 mg/dL (8.4-10.2) L 03/21/19 08:08 Phosphorus 2.00 mg/dL (2.5-4.5) L 03/20/19 17:50 Magnesium 1.70 mg/dL (1.7-2.3) 03/21/19 04:12 53.7 mg/dL (0.1-20.0) H 03/20/19 16:40 116 mmol/L 03/20/19 16:40 36 mg/dL (5-11.8) H 03/20/19 16:40 Medications & Allergies - Medications Allergies/Adverse Reactions: Allergies No Known Allergies Allergy (Unverified 03/19/19 13:11) Home Medications: Home Medications Medication Instructions Recorded Confirmed Last Taken Type Aspirin EC 81 mg PO DAILY 03/20/19 03/20/19 Unknown History Divalproex Sodium 375 mg PO Q8H PRN 03/20/19 03/20/19 Unknown History Metoprolol [Lopressor TAB] 50 mg PO BID 03/20/19 03/20/19 Unknown History Sennosides/Docusate Sodium [Senna 8.6 mg PO BID PRN 03/20/19 03/20/19 Unknown History Plus Tablet] levETIRAcetam [Keppra TAB] 500 mg PO BID 03/20/19 03/20/19 Unknown History Active Medications: Generic Name Dose Route Start Last Admin Trade Name Freq PRN Reason Stop Dose Admin Albuterol 2.5 mg 03/19/19 23:58 Proventil IH Q3HRT PRN Shortness Of Breath Albuterol/Ipratropium 1 ampul 03/20/19 02:00 03/21/19 07:27 Duoneb *Not For Prn Use* IH 1 ampul Q6HRT YUSUF Administration Lipase/Protease/Amylase 1 each 03/19/19 23:58 Pancreaze 10,500 Unit FEEDTUBE PRN PRN For Clogged Feeding Tube Aspirin 81 mg 03/21/19 10:00 03/21/19 11:04 Baby Aspirin PO Not Given DAILY YUSUF Budesonide 0.5 mg 03/19/19 23:45 03/21/19 07:28 Pulmicort IH 0.5 mg Q12HRT YUSUF Administration Dextrose 50 ml 03/19/19 23:58 03/21/19 10:23 D50w (25gm) Syringe IV 50 ml PRN PRN Administration Hypoglycemia Famotidine 10 mg 03/20/19 00:00 03/21/19 10:23 Pepcid IV 10 mg BID YUSUF Administration Fentanyl 50 mcg 03/19/19 12:45 03/19/19 13:26 Sublimaze IV 50 mcg Q10MIN PRN Administration ANALGESIA Heparin Sodium (Porcine) 5,000 unit 03/21/19 11:45 Heparin SUB-Q Q12HR YUSUF Hydromorphone HCl 0.5 mg 03/19/19 23:58 Dilaudid IV Q3H PRN Pain , Severe (7-10) Hydrophilic Ointment 1 applic 03/19/19 12:45 Vaseline Lip Therapy TP Q2HR PRN Dry Lips Fentanyl Citrate 2,000 mcg in 100 mls @ 2.835 mls/hr 03/19/19 14:00 03/21/19 11:33 Fentanyl Drip Premix IV 0 mcg/kg/hr TITR YUSUF 0 mls/hr Titration Protocol 1 MCG/KG/HR Amiodarone HCl 900 mg/ 500 mls @ 33.333 mls/hr 03/19/19 20:00 03/20/19 09:58 Dextrose IV 0.5 mg/min DIRECT YUSUF 16.667 mls/hr Administration Protocol 1 MG/MIN Cefepime HCl 2 gm in 100 mls @ 200 mls/hr 03/20/19 10:00 03/21/19 10:06 Maxipime/Ns 2 Gm/100 Ml IV 200 mls/hr Q24HR YUSUF Administration Protocol Norepinephrine 4 mg in 250 mls @ 7.5 mls/hr 03/20/19 11:00 03/21/19 11:13 Levophed Drip 4 Mg/Ns 250 Ml IV 10 mcg/min TITR YUSUF 37.5 mls/hr Titration Protocol 2 MCG/MIN Vasopressin 20 unit/ Sodium 101 mls @ 9.09 mls/hr 03/20/19 11:00 Chloride IV TITR YUSUF Protocol 0.03 UNITS/MIN Vancomycin HCl 1 gm in 250 mls @ 167.007 mls/hr 03/21/19 10:00 03/21/19 10:10 Vancomycin/Ns 1 Gm/250 Ml IV 167.007 mls/hr Q24HR YUSUF Administration Levetiracetam 750 mg/ Dextrose 107.5 mls @ 400 mls/hr 03/21/19 11:00 03/21/19 11:04 IV 400 mls/hr Q12HR YUSUF Administration Insulin Human Lispro 0 unit 03/20/19 00:00 03/21/19 11:05 Humalog SUB-Q Not Given Q6HR [facility] Protocol Metoclopramide HCl 5 mg 03/20/19 00:12 Reglan IV Q6H PRN Nausea And Vomiting Multi-Ingred Cream/Lotion/Oil/Oint 1 applic 03/19/19 12:45 Artificial Tears Ophth Oint OU Q4HR PRN Dry Eye(s) Ondansetron HCl 4 mg 03/19/19 23:58 Zofran IV Q8H PRN Nausea And Vomiting Promethazine HCl 25 mg 03/19/19 23:58 Phenergan NC Q6H PRN N/V IF NPO AND NO IV ACCESS Simple Syrup 15 ml 03/19/19 23:58 Simple Syrup FEEDTUBE PRN PRN Hypoglycemia Simple Syrup 30 ml 03/19/19 23:58 Simple Syrup FEEDTUBE PRN PRN Hypoglycemia Sodium Bicarbonate 325 mg 03/19/19 23:58 Sodium Bicarbonate FEEDTUBE PRN PRN For Clogged Feeding Tube Sodium Chloride 10 ml 03/20/19 10:00 03/21/19 10:06 Sodium Chloride Flush Syringe 10 Ml IV 10 ml BID YUSUF Administration Sodium Chloride 10 ml 03/19/19 23:58 Sodium Chloride Flush Syringe 10 Ml IV PRN PRN LINE FLUSH
[2019-03-21] MEDS ORDERED: NACL 0.9% 1000 ML 1,000 ML IV SCH (12:00)
--- NOTE | 2019-03-21 12:57 | Progress Note ---
Assessment and Plan 03/20 Resp Fail on vent suspect septic AMS prev stroke pneu P: vent support abx monitor bp support 03/21 Not weanable ongoing tachycardia met acid incr resp rate continue support and abx septic appearance ?source central line and nutritional support may need hyperal try TF slowly ?d/c Amio per cards wean pressors as verónica CC time 40min Subjective Date of service: 03/21/19 Principal diagnosis: resp fail sepsis Interval history: 03/21 on vent tapering levophed bp improving off sedation still tachy acidotic Objective Vital Signs - 12hr 03/21/19 03/21/19 03/21/19 01:00 01:15 01:30 Temperature Pulse Rate 129 H 149 H 130 H Pulse Rate [ Anterior Bilateral Throughout] Pulse Rate [ From Monitor] Respiratory 21 26 H 19 Rate Respiratory Rate [Anterior Bilateral Throughout] Blood Pressure 99/53 83/41 106/57 O2 Sat by Pulse 100 97 99 Oximetry 03/21/19 03/21/19 03/21/19 01:45 02:00 02:15 Temperature Pulse Rate 134 H 128 H 130 H Pulse Rate [ Anterior Bilateral Throughout] Pulse Rate [ From Monitor] Respiratory 18 18 23 Rate Respiratory Rate [Anterior Bilateral Throughout] Blood Pressure 96/54 99/53 105/59 O2 Sat by Pulse 99 100 99 Oximetry 03/21/19 03/21/19 03/21/19 02:30 02:45 03:01 Temperature Pulse Rate 118 H 132 H 133 H Pulse Rate [ Anterior Bilateral Throughout] Pulse Rate [ From Monitor] Respiratory 19 25 H 30 H Rate Respiratory Rate [Anterior Bilateral Throughout] Blood Pressure 90/51 72/42 100/72 O2 Sat by Pulse 100 100 100 Oximetry 03/21/19 03/21/19 03/21/19 03:15 03:30 03:45 Temperature Pulse Rate 121 H 132 H 128 H Pulse Rate [ Anterior Bilateral Throughout] Pulse Rate [ From Monitor] Respiratory 22 20 24 Rate Respiratory Rate [Anterior Bilateral Throughout] Blood Pressure 100/57 98/60 109/54 O2 Sat by Pulse 100 100 Oximetry 03/21/19 03/21/19 03/21/19 04:00 04:15 04:30 Temperature 100.3 F H Pulse Rate 143 H 135 H Pulse Rate [ 135 H Anterior Bilateral Throughout] Pulse Rate [ 143 H From Monitor] Respiratory 25 H 30 H Rate Respiratory 26 H Rate [Anterior Bilateral Throughout] Blood Pressure 115/60 118/58 O2 Sat by Pulse 99 98 Oximetry 03/21/19 03/21/19 03/21/19 04:31 04:40 04:45 Temperature Pulse Rate 140 H 133 H 140 H Pulse Rate [ Anterior Bilateral Throughout] Pulse Rate [ From Monitor] Respiratory 30 H 15 Rate Respiratory Rate [Anterior Bilateral Throughout] Blood Pressure 109/54 110/63 O2 Sat by Pulse 99 100 98 Oximetry 03/21/19 03/21/19 03/21/19 05:00 05:15 05:30 Temperature Pulse Rate 144 H 140 H 145 H Pulse Rate [ Anterior Bilateral Throughout] Pulse Rate [ From Monitor] Respiratory 30 H 24 21 Rate Respiratory Rate [Anterior Bilateral Throughout] Blood Pressure 117/66 110/59 120/64 O2 Sat by Pulse 99 99 100 Oximetry 03/21/19 03/21/19 03/21/19 05:45 06:00 06:15 Temperature Pulse Rate 150 H 140 H 151 H Pulse Rate [ Anterior Bilateral Throughout] Pulse Rate [ From Monitor] Respiratory 24 29 H 29 H Rate Respiratory Rate [Anterior Bilateral Throughout] Blood Pressure 116/61 104/64 112/61 O2 Sat by Pulse 97 99 98 Oximetry 03/21/19 03/21/19 03/21/19 06:30 06:45 07:00 Temperature Pulse Rate 139 H 134 H 133 H Pulse Rate [ Anterior Bilateral Throughout] Pulse Rate [ From Monitor] Respiratory 29 H 21 29 H Rate Respiratory Rate [Anterior Bilateral Throughout] Blood Pressure 107/65 109/63 101/69 O2 Sat by Pulse 100 100 100 Oximetry 03/21/19 03/21/19 03/21/19 07:15 07:28 07:31 Temperature Pulse Rate 146 H 138 H Pulse Rate [ 142 H Anterior Bilateral Throughout] Pulse Rate [ From Monitor] Respiratory 20 20 Rate Respiratory 16 Rate [Anterior Bilateral Throughout] Blood Pressure 96/47 102/54 O2 Sat by Pulse 98 98 Oximetry 03/21/19 03/21/19 03/21/19 07:45 08:00 08:14 Temperature 100.9 F H Pulse Rate 140 H 156 H 142 H Pulse Rate [ Anterior Bilateral Throughout] Pulse Rate [ 142 H From Monitor] Respiratory 18 26 H Rate Respiratory Rate [Anterior Bilateral Throughout] Blood Pressure 118/80 118/80 102/54 O2 Sat by Pulse 100 99 98 Oximetry 03/21/19 03/21/19 03/21/19 08:15 08:30 08:45 Temperature Pulse Rate 143 H 151 H 135 H Pulse Rate [ Anterior Bilateral Throughout] Pulse Rate [ From Monitor] Respiratory 21 17 14 Rate Respiratory Rate [Anterior Bilateral Throughout] Blood Pressure 117/63 113/64 110/60 O2 Sat by Pulse 100 100 100 Oximetry 03/21/19 03/21/19 03/21/19 09:00 09:15 09:30 Temperature Pulse Rate 144 H 136 H 141 H Pulse Rate [ Anterior Bilateral Throughout] Pulse Rate [ From Monitor] Respiratory 26 H 21 20 Rate Respiratory Rate [Anterior Bilateral Throughout] Blood Pressure 96/66 101/68 100/60 O2 Sat by Pulse 100 100 100 Oximetry 03/21/19 03/21/19 03/21/19 09:45 10:00 10:15 Temperature Pulse Rate 148 H 134 H 131 H Pulse Rate [ Anterior Bilateral Throughout] Pulse Rate [ From Monitor] Respiratory 25 H 23 23 Rate Respiratory Rate [Anterior Bilateral Throughout] Blood Pressure 110/61 109/55 108/64 O2 Sat by Pulse 99 100 100 Oximetry 03/21/19 03/21/19 03/21/19 10:30 10:45 11:00 Temperature Pulse Rate 142 H 142 H 138 H Pulse Rate [ Anterior Bilateral Throughout] Pulse Rate [ From Monitor] Respiratory 27 H 30 H 26 H Rate Respiratory Rate [Anterior Bilateral Throughout] Blood Pressure 120/56 121/64 122/66 O2 Sat by Pulse 98 98 99 Oximetry 03/21/19 03/21/19 03/21/19 11:15 11:30 11:45 Temperature Pulse Rate 143 H 138 H 128 H Pulse Rate [ Anterior Bilateral Throughout] Pulse Rate [ From Monitor] Respiratory 32 H 21 26 H Rate Respiratory Rate [Anterior Bilateral Throughout] Blood Pressure 121/65 122/74 117/67 O2 Sat by Pulse 99 98 Oximetry 03/21/19 03/21/19 03/21/19 12:00 12:15 12:30 Temperature Pulse Rate 147 H 148 H 139 H Pulse Rate [ Anterior Bilateral Throughout] Pulse Rate [ 137 H From Monitor] Respiratory 18 23 26 H Rate Respiratory Rate [Anterior Bilateral Throughout] Blood Pressure 119/64 122/65 120/63 O2 Sat by Pulse 99 99 99 Oximetry Constitutional: other (intubated on vent min responsive off sedation) ENT: other (intubated ) Effort: other (poor efforts ) Ascultation: Bilateral: diminished breath sounds (grossly clear ) Cardiovascular: other (tachy AF ) Gastrointestinal: hypoactive bowel sounds Integumentary: normal Neurologic: unable to assess, other (L paresis eyes open tongue out on command ) Additional exam: 03/21 Vent mgmt prvc/ac rr16/22 MV 10 pp15/5 sat 99 Fi02 .35 CBC and BMP: 03/21/19 04:12 03/21/19 08:08 ABG, PT/INR, D-dimer: ABG POC ABG pH 7.456 (7.35-7.45) H 03/21/19 04:43 POC ABG pO2 82 (80-105) 03/21/19 04:43 POC ABG HCO3 16.8 (22-26 mml/L) 03/21/19 04:43 POC ABG Total CO2 18 (23-27mmol/L) 03/21/19 04:43 POC ABG O2 Sat 97 03/21/19 04:43 Abnormal lab findings: Abnormal Labs 03/19/19 03/19/19 03/19/19 12:59 12:59 12:59 RBC 3.44 L Hgb Hct MCV 101 H MCH 34 H Plt Count 98 L Seg Neuts % (Manual) 11.0 L Monocytes % (Manual) 10.0 H Nucleated RBC % 1.0 H Seg Neutrophils # Man 0.6 L POC ABG pH POC ABG pCO2 POC ABG pO2 Sodium 149 H Potassium Chloride 109.4 H Carbon Dioxide BUN 51 H Creatinine 3.2 H Glucose 58 L POC Glucose Lactic Acid 7.60 H* Calcium 7.8 L Phosphorus Magnesium 1.60 L AST 75 H Total Creatine Kinase 1499 H Troponin T 0.109 H* Total Protein 5.2 L Albumin 1.7 L Prealbumin LDL Cholesterol Direct 22 L HDL Cholesterol 31 L PTH Intact Urine Creatinine Urine Total Protein Salicylates Acetaminophen 03/19/19 03/19/19 03/19/19 12:59 12:59 14:48 RBC Hgb Hct MCV MCH Plt Count Seg Neuts % (Manual) Monocytes % (Manual) Nucleated RBC % Seg Neutrophils # Man POC ABG pH POC ABG pCO2 POC ABG pO2 Sodium Potassium Chloride Carbon Dioxide BUN Creatinine Glucose POC Glucose 44 L Lactic Acid Calcium Phosphorus Magnesium AST Total Creatine Kinase Troponin T Total Protein Albumin Prealbumin LDL Cholesterol Direct HDL Cholesterol PTH Intact Urine Creatinine Urine Total Protein Salicylates < 0.3 L Acetaminophen < 5.0 L 03/19/19 03/19/19 03/19/19 15:33 15:52 16:26 RBC Hgb Hct MCV MCH Plt Count Seg Neuts % (Manual) Monocytes % (Manual) Nucleated RBC % Seg Neutrophils # Man POC ABG pH POC ABG pCO2 POC ABG pO2 Sodium Potassium Chloride Carbon Dioxide BUN Creatinine Glucose POC Glucose 228 H 231 H Lactic Acid Calcium Phosphorus Magnesium AST Total Creatine Kinase Troponin T Total Protein Albumin Prealbumin LDL Cholesterol Direct HDL Cholesterol PTH Intact Urine Creatinine 31.8 H Urine Total Protein Salicylates Acetaminophen 03/19/19 03/19/19 03/19/19 16:38 17:14 18:43 RBC Hgb Hct MCV MCH Plt Count Seg Neuts % (Manual) Monocytes % (Manual) Nucleated RBC % Seg Neutrophils # Man POC ABG pH 7.196 L POC ABG pCO2 30.8 L POC ABG pO2 Sodium Potassium Chloride Carbon Dioxide BUN Creatinine Glucose POC Glucose 235 H Lactic Acid 8.10 H* Calcium Phosphorus Magnesium AST Total Creatine Kinase Troponin T Total Protein Albumin Prealbumin LDL Cholesterol Direct HDL Cholesterol PTH Intact Urine Creatinine Urine Total Protein Salicylates Acetaminophen 03/19/19 03/19/19 03/19/19 18:52 20:00 20:56 RBC Hgb Hct MCV MCH Plt Count Seg Neuts % (Manual) Monocytes % (Manual) Nucleated RBC % Seg Neutrophils # Man POC ABG pH POC ABG pCO2 POC ABG pO2 Sodium Potassium Chloride Carbon Dioxide BUN Creatinine Glucose POC Glucose 240 H 117 H Lactic Acid 5.90 H* Calcium Phosphorus Magnesium AST Total Creatine Kinase Troponin T Total Protein Albumin Prealbumin LDL Cholesterol Direct HDL Cholesterol PTH Intact Urine Creatinine Urine Total Protein Salicylates Acetaminophen 03/19/19 03/19/19 03/19/19 21:19 22:07 23:00 RBC Hgb Hct MCV MCH Plt Count Seg Neuts % (Manual) Monocytes % (Manual) Nucleated RBC % Seg Neutrophils # Man POC ABG pH POC ABG pCO2 POC ABG pO2 Sodium Potassium Chloride Carbon Dioxide BUN Creatinine Glucose POC Glucose < 40 L 136 H Lactic Acid 6.10 H* Calcium Phosphorus Magnesium AST Total Creatine Kinase Troponin T Total Protein Albumin Prealbumin LDL Cholesterol Direct HDL Cholesterol PTH Intact Urine Creatinine Urine Total Protein Salicylates Acetaminophen 03/20/19 03/20/19 03/20/19 00:05 01:38 02:23 RBC Hgb Hct MCV MCH Plt Count Seg Neuts % (Manual) Monocytes % (Manual) Nucleated RBC % Seg Neutrophils # [place] POC ABG pH POC ABG pCO2 POC ABG pO2 Sodium Potassium Chloride Carbon Dioxide BUN Creatinine Glucose POC Glucose 68 L 153 H 127 H Lactic Acid Calcium Phosphorus Magnesium AST Total Creatine Kinase Troponin T Total Protein Albumin Prealbumin LDL Cholesterol Direct HDL Cholesterol PTH Intact Urine Creatinine Urine Total Protein Salicylates Acetaminophen 03/20/19 03/20/19 03/20/19 03:12 04:31 04:41 RBC Hgb Hct MCV MCH Plt Count Seg Neuts % (Manual) Monocytes % (Manual) Nucleated RBC % Seg Neutrophils # [place] POC ABG pH POC ABG pCO2 POC ABG pO2 53 L 65 L Sodium Potassium Chloride Carbon Dioxide BUN Creatinine Glucose POC Glucose 109 H Lactic Acid Calcium Phosphorus Magnesium AST Total Creatine Kinase Troponin T Total Protein Albumin Prealbumin LDL Cholesterol Direct HDL Cholesterol PTH Intact Urine Creatinine Urine Total Protein Salicylates Acetaminophen 03/20/19 03/20/19 03/20/19 05:50 07:29 08:14 RBC Hgb Hct MCV MCH Plt Count Seg Neuts % (Manual) Monocytes % (Manual) Nucleated RBC % Seg Neutrophils # [place] POC ABG pH POC ABG pCO2 POC ABG pO2 Sodium Potassium Chloride Carbon Dioxide BUN Creatinine Glucose 61 L POC Glucose 47 L 153 H Lactic Acid Calcium Phosphorus Magnesium 1.60 L AST Total Creatine Kinase Troponin T Total Protein Albumin Prealbumin LDL Cholesterol Direct HDL Cholesterol PTH Intact Urine Creatinine Urine Total Protein Salicylates Acetaminophen 03/20/19 03/20/19 03/20/19 08:23 08:23 10:59 RBC Hgb Hct MCV MCH Plt Count Seg Neuts % (Manual) Monocytes % (Manual) Nucleated RBC % Seg Neutrophils # [place] POC ABG pH POC ABG pCO2 POC ABG pO2 Sodium Potassium Chloride Carbon Dioxide BUN Creatinine Glucose 101 H POC Glucose 233 H Lactic Acid 9.70 H* Calcium Phosphorus Magnesium AST Total Creatine Kinase Troponin T Total Protein Albumin Prealbumin 0.052 L LDL Cholesterol Direct HDL Cholesterol PTH Intact Urine Creatinine Urine Total Protein Salicylates Acetaminophen 03/20/19 03/20/19 03/20/19 12:23 16:10 16:40 RBC Hgb Hct MCV MCH Plt Count Seg Neuts % (Manual) Monocytes % (Manual) Nucleated RBC % Seg Neutrophils # Man POC ABG pH POC ABG pCO2 POC ABG pO2 Sodium Potassium Chloride Carbon Dioxide BUN Creatinine Glucose POC Glucose 135 H 171 H Lactic Acid Calcium Phosphorus Magnesium AST Total Creatine Kinase Troponin T Total Protein Albumin Prealbumin LDL Cholesterol Direct HDL Cholesterol PTH Intact Urine Creatinine 53.7 H Urine Total Protein 36 H Salicylates Acetaminophen 03/20/19 03/20/19 03/20/19 16:57 17:38 17:50 RBC Hgb Hct MCV MCH Plt Count Seg Neuts % (Manual) Monocytes % (Manual) Nucleated RBC % Seg Neutrophils # Man POC ABG pH POC ABG pCO2 POC ABG pO2 Sodium Potassium Chloride Carbon Dioxide BUN Creatinine Glucose POC Glucose 152 H 147 H Lactic Acid 9.90 H* Calcium Phosphorus Magnesium AST Total Creatine Kinase Troponin T Total Protein Albumin Prealbumin LDL Cholesterol Direct HDL Cholesterol PTH Intact Urine Creatinine Urine Total Protein Salicylates Acetaminophen 03/20/19 03/20/19 03/20/19 17:50 17:50 17:50 RBC 2.92 L Hgb 10.0 L Hct 29.3 L MCV 100 H MCH 34 H Plt Count 81 L Seg Neuts % (Manual) Monocytes % (Manual) Nucleated RBC % Seg Neutrophils # Man POC ABG pH POC ABG pCO2 POC ABG pO2 Sodium Potassium 2.8 L* D Chloride Carbon Dioxide BUN 30 H Creatinine 1.6 H Glucose 107 H POC Glucose Lactic Acid Calcium 6.9 L Phosphorus 2.00 L Magnesium AST Total Creatine Kinase Troponin T Total Protein Albumin Prealbumin LDL Cholesterol Direct HDL Cholesterol PTH Intact 171.6 H Urine Creatinine Urine Total Protein Salicylates Acetaminophen 03/20/19 03/21/19 03/21/19 21:12 00:30 04:12 RBC Hgb Hct MCV MCH Plt Count Seg Neuts % (Manual) Monocytes % (Manual) Nucleated RBC % Seg Neutrophils # Man POC ABG pH POC ABG pCO2 POC ABG pO2 Sodium Potassium 3.0 L Chloride Carbon Dioxide 21 L BUN Creatinine 1.4 H Glucose 103 H POC Glucose Lactic Acid 8.70 H* 9.40 H* Calcium 6.8 L Phosphorus Magnesium AST Total Creatine Kinase Troponin T Total Protein Albumin Prealbumin LDL Cholesterol Direct HDL Cholesterol PTH Intact Urine Creatinine Urine Total Protein Salicylates Acetaminophen 03/21/19 03/21/19 03/21/19 04:12 04:12 04:43 RBC 2.84 L Hgb 9.5 L Hct 28.3 L MCV 100 H MCH 33 H Plt Count 79 L Seg Neuts % (Manual) Monocytes % (Manual) Nucleated RBC % Seg Neutrophils # Man POC ABG pH 7.456 H POC ABG pCO2 POC ABG pO2 Sodium Potassium Chloride Carbon Dioxide BUN Creatinine Glucose POC Glucose Lactic Acid 9.50 H* Calcium Phosphorus Magnesium AST Total Creatine Kinase Troponin T Total Protein Albumin Prealbumin LDL Cholesterol Direct HDL Cholesterol PTH Intact Urine Creatinine Urine Total Protein Salicylates Acetaminophen 03/21/19 03/21/19 03/21/19 08:06 08:08 10:11 RBC Hgb Hct MCV MCH Plt Count Seg Neuts % (Manual) Monocytes % (Manual) Nucleated RBC % Seg Neutrophils # Man POC ABG pH POC ABG pCO2 POC ABG pO2 Sodium Potassium 3.5 L Chloride Carbon Dioxide BUN 22 H Creatinine 1.3 H Glucose POC Glucose 64 L Lactic Acid 8.00 H* Calcium 7.0 L Phosphorus Magnesium AST Total Creatine Kinase Troponin T Total Protein Albumin Prealbumin LDL Cholesterol Direct HDL Cholesterol PTH Intact Urine Creatinine Urine Total Protein Salicylates Acetaminophen 03/21/19 03/21/19 11:17 12:17 RBC Hgb Hct MCV MCH Plt Count Seg Neuts % (Manual) Monocytes % (Manual) Nucleated RBC % Seg Neutrophils # Man POC ABG pH POC ABG pCO2 POC ABG pO2 Sodium Potassium Chloride Carbon Dioxide BUN Creatinine Glucose POC Glucose 173 H 110 H Lactic Acid Calcium Phosphorus Magnesium AST Total Creatine Kinase Troponin T Total Protein Albumin Prealbumin LDL Cholesterol Direct HDL Cholesterol PTH Intact Urine Creatinine Urine Total Protein Salicylates Acetaminophen Chest x-ray: image reviewed (ET ok grossly clear resid RUL markings )
--- NOTE | 2019-03-21 13:37 | Progress Note ---
Assessment and Plan Acute metabolic encephalopathy, - cont supportive care, CT head negative Acute hypoxic respiratory s/p ETT placement: consulted CCM, wean off vent as tolerated, scheduled nebs Sepsis due to aspiration pneumonia; treat with iv abx, follow cx Septic shock: on levophed, wean off as tolerated Atrial fib, on amioderone drip, added renally dosed digoxin HA (acute kidney injury), atn and vasomotor nephrology, poa: IV fluids for now, Nephrology consulted RUL Aspiration pneumonia: Cont IV Cefepime and IV Vancomycin Hypernatremia: repeat bmp am, Iv fluid Hypomagnesemia: replete and follow as needed Elevated troponin I level NSTEMI II; consulted Cardiology DVT prophylaxis d/w family at bedside full code CCT 34 minutes Brief History Patient is a 73 yo woman without a clear past medical history due to patient presentation of being Altered requiring intubation upon admission. Upon arrival to the emergency room, the patient is obtunded, breathing without difficulty, desaturating, without a gag reflex. Therefore, patient placed on nasal cannula at 15 L/m, and then intubated without difficulty. Patient is started empirically on the sepsis pathway, with broad-spectrum antibiotics, aggressive IV fluids, and post intubation sedation package. * pCXR FINDINGS: SUPPORT DEVICES: Endotracheal tube is in place in good position above the liam. HEART / MEDIASTINUM: No significant abnormality. LUNGS / PLEURA: There is moderate bibasilar lung consolidation and slight right upper lobe consolidation as well. No edema or effusions. No pneumothorax. ADDITIONAL FINDINGS: No significant additional findings. IMPRESSION: 1. Endotracheal tube in good position. * CT head without contrast IMPRESSION: Encephalomalacia in the entire right cerebral hemisphere Volume loss in the left cerebral hemisphere I do not see an acute parenchymal lesion in the brain. * Abdominal Xray 1 view: FINDINGS: TUBES / LINES: The NG tube has been advanced and now terminates along the lateral margin of the gastric fundus. The side- port of the tube projects over the GE junction. BOWEL GAS PATTERN: No significant abnormality. FREE AIR / EXTRALUMINAL GAS: None seen. ADDITIONAL FINDINGS: Opacities are again noted throughout the right lung. The IVC filter is unchanged in position. IMPRESSION: Interval advancement of the NG tube as above. The side-port of the tube is likely located at the GE junction. The tube may be advanced another 3-4 cm if desired. Hospitalist Physical Gen: critcally ill, thin frail, bmi 20, intubated,sedated on Fentanyl HEENT: NCAT, EOMI, PERRL, OP Clear Neck: supple, no adenopathy, no thyromegaly, no JVD CVS/Heart: RRR, normal S1S2, pulses present bilaterally Chest/Lungs: CTA B, Symmetrical chest expansion, good air entry bilaterally GI/Abdomen: soft, NTND, good bowel sounds, no guarding or rebound /Bladder: no suprapubic tenderness, no CVA or paraspinal tenderness Extermity/Skin: no c/c/e, no obvious rash MSK: intubated Neuro: intubated Psych: intubated Subjective Date of service: 03/21/19 Principal diagnosis: resp fail sepsis Interval history: Pt seen and examined updated at the bedside remained intubated, still on pressor/levophed and amioderone iv Objective - Constitutional Vitals: Vital Signs - 12hr 03/21/19 03/21/19 03/21/19 01:45 02:00 02:15 Temperature Pulse Rate 134 H 128 H 130 H Pulse Rate [ Anterior Bilateral Throughout] Pulse Rate [ From Monitor] Respiratory 18 18 23 Rate Respiratory Rate [Anterior Bilateral Throughout] Blood Pressure 96/54 99/53 105/59 O2 Sat by Pulse 99 100 99 Oximetry 03/21/19 03/21/19 03/21/19 02:30 02:45 03:01 Temperature Pulse Rate 118 H 132 H 133 H Pulse Rate [ Anterior Bilateral Throughout] Pulse Rate [ From Monitor] Respiratory 19 25 H 30 H Rate Respiratory Rate [Anterior Bilateral Throughout] Blood Pressure 90/51 72/42 100/72 O2 Sat by Pulse 100 100 100 Oximetry 03/21/19 03/21/19 03/21/19 03:15 03:30 03:45 Temperature Pulse Rate 121 H 132 H 128 H Pulse Rate [ Anterior Bilateral Throughout] Pulse Rate [ From Monitor] Respiratory 22 20 24 Rate Respiratory Rate [Anterior Bilateral Throughout] Blood Pressure 100/57 98/60 109/54 O2 Sat by Pulse 100 100 Oximetry 03/21/19 03/21/19 03/21/19 04:00 04:15 04:30 Temperature 100.3 F H Pulse Rate 143 H 135 H Pulse Rate [ 135 H Anterior Bilateral Throughout] Pulse Rate [ 143 H From Monitor] Respiratory 25 H 30 H Rate Respiratory 26 H Rate [Anterior Bilateral Throughout] Blood Pressure 115/60 118/58 O2 Sat by Pulse 99 98 Oximetry 03/21/19 03/21/19 03/21/19 04:31 04:40 04:45 Temperature Pulse Rate 140 H 133 H 140 H Pulse Rate [ Anterior Bilateral Throughout] Pulse Rate [ From Monitor] Respiratory 30 H 15 Rate Respiratory Rate [Anterior Bilateral Throughout] Blood Pressure 109/54 110/63 O2 Sat by Pulse 99 100 98 Oximetry 03/21/19 03/21/19 03/21/19 05:00 05:15 05:30 Temperature Pulse Rate 144 H 140 H 145 H Pulse Rate [ Anterior Bilateral Throughout] Pulse Rate [ From Monitor] Respiratory 30 H 24 21 Rate Respiratory Rate [Anterior Bilateral Throughout] Blood Pressure 117/66 110/59 120/64 O2 Sat by Pulse 99 99 100 Oximetry 03/21/19 03/21/19 03/21/19 05:45 06:00 06:15 Temperature Pulse Rate 150 H 140 H 151 H Pulse Rate [ Anterior Bilateral Throughout] Pulse Rate [ From Monitor] Respiratory 24 29 H 29 H Rate Respiratory Rate [Anterior Bilateral Throughout] Blood Pressure 116/61 104/64 112/61 O2 Sat by Pulse 97 99 98 Oximetry 03/21/19 03/21/19 03/21/19 06:30 06:45 07:00 Temperature Pulse Rate 139 H 134 H 133 H Pulse Rate [ Anterior Bilateral Throughout] Pulse Rate [ From Monitor] Respiratory 29 H 21 29 H Rate Respiratory Rate [Anterior Bilateral Throughout] Blood Pressure 107/65 109/63 101/69 O2 Sat by Pulse 100 100 100 Oximetry 03/21/19 03/21/19 03/21/19 07:15 07:28 07:31 Temperature Pulse Rate 146 H 138 H Pulse Rate [ 142 H Anterior Bilateral Throughout] Pulse Rate [ From Monitor] Respiratory 20 20 Rate Respiratory 16 Rate [Anterior Bilateral Throughout] Blood Pressure 96/47 102/54 O2 Sat by Pulse 98 98 Oximetry 03/21/19 03/21/19 03/21/19 07:45 08:00 08:14 Temperature 100.9 F H Pulse Rate 140 H 156 H 142 H Pulse Rate [ Anterior Bilateral Throughout] Pulse Rate [ 142 H From Monitor] Respiratory 18 26 H Rate Respiratory Rate [Anterior Bilateral Throughout] Blood Pressure 118/80 118/80 102/54 O2 Sat by Pulse 100 99 98 Oximetry 07/23/19 07/23/19 07/23/19 08:15 08:30 08:45 Temperature Pulse Rate 143 H 151 H 135 H Pulse Rate [ Anterior Bilateral Throughout] Pulse Rate [ From Monitor] Respiratory 21 17 14 Rate Respiratory Rate [Anterior Bilateral Throughout] Blood Pressure 117/63 113/64 110/60 O2 Sat by Pulse 100 100 100 Oximetry 03/21/19 03/21/19 03/21/19 09:00 09:15 09:30 Temperature Pulse Rate 144 H 136 H 141 H Pulse Rate [ Anterior Bilateral Throughout] Pulse Rate [ From Monitor] Respiratory 26 H 21 20 Rate Respiratory Rate [Anterior Bilateral Throughout] Blood Pressure 96/66 101/68 100/60 O2 Sat by Pulse 100 100 100 Oximetry 03/21/19 03/21/19 03/21/19 09:45 10:00 10:15 Temperature Pulse Rate 148 H 134 H 131 H Pulse Rate [ Anterior Bilateral Throughout] Pulse Rate [ From Monitor] Respiratory 25 H 23 23 Rate Respiratory Rate [Anterior Bilateral Throughout] Blood Pressure 110/61 109/55 108/64 O2 Sat by Pulse 99 100 100 Oximetry 03/21/19 03/21/19 03/21/19 10:30 10:45 11:00 Temperature Pulse Rate 142 H 142 H 138 H Pulse Rate [ Anterior Bilateral Throughout] Pulse Rate [ From Monitor] Respiratory 27 H 30 H 26 H Rate Respiratory Rate [Anterior Bilateral Throughout] Blood Pressure 120/56 121/64 122/66 O2 Sat by Pulse 98 98 99 Oximetry 03/21/19 03/21/19 03/21/19 11:15 11:30 11:45 Temperature Pulse Rate 143 H 138 H 128 H Pulse Rate [ Anterior Bilateral Throughout] Pulse Rate [ From Monitor] Respiratory 32 H 21 26 H Rate Respiratory Rate [Anterior Bilateral Throughout] Blood Pressure 121/65 122/74 117/67 O2 Sat by Pulse 99 98 Oximetry 03/21/19 03/21/19 03/21/19 12:00 12:15 12:30 Temperature 98.5 F Pulse Rate 147 H 148 H 139 H Pulse Rate [ Anterior Bilateral Throughout] Pulse Rate [ 137 H From Monitor] Respiratory 18 23 26 H Rate Respiratory Rate [Anterior Bilateral Throughout] Blood Pressure 119/64 122/65 120/63 O2 Sat by Pulse 99 99 99 Oximetry - Labs CBC & Chem 7: 03/23/19 04:50 03/23/19 04:50 Labs: Abnormal lab results 03/20/19 03/20/19 03/20/19 Range/Units 16:10 16:40 16:57 RBC (3.65-5.03) M/mm3 Hgb (10.1-14.3) gm/dl Hct (30.3-42.9) % MCV (79-97) fl MCH (28-32) pg Plt Count (140-440) K/mm3 POC ABG pH (7.35-7.45) Potassium (3.6-5.0) mmol/L Carbon Dioxide (22-30) mmol/L BUN (7-17) mg/dL Creatinine (0.7-1.2) mg/dL Glucose (65-100) mg/dL POC Glucose 171 H 152 H (70-105) Lactic Acid (0.7-2.0) mmol/L Calcium (8.4-10.2) mg/dL Phosphorus (2.5-4.5) mg/dL PTH Intact (15-65) pg/mL Urine Creatinine 53.7 H (0.1-20.0) mg/dL Urine Total Protein 36 H (5-11.8) mg/dL 03/20/19 03/20/19 03/20/19 Range/Units 17:38 17:50 17:50 RBC 2.92 L (3.65-5.03) M/mm3 Hgb 10.0 L (10.1-14.3) gm/dl Hct 29.3 L (30.3-42.9) % MCV 100 H (79-97) fl MCH 34 H (28-32) pg Plt Count 81 L (140-440) K/mm3 POC ABG pH (7.35-7.45) Potassium (3.6-5.0) mmol/L Carbon Dioxide (22-30) mmol/L BUN (7-17) mg/dL Creatinine (0.7-1.2) mg/dL Glucose (65-100) mg/dL POC Glucose 147 H (70-105) Lactic Acid 9.90 H* (0.7-2.0) mmol/L Calcium (8.4-10.2) mg/dL Phosphorus (2.5-4.5) mg/dL PTH Intact (15-65) pg/mL Urine Creatinine (0.1-20.0) mg/dL Urine Total Protein (5-11.8) mg/dL 03/20/19 03/20/19 03/20/19 Range/Units 17:50 17:50 21:12 RBC (3.65-5.03) M/mm3 Hgb (10.1-14.3) gm/dl Hct (30.3-42.9) % MCV (79-97) fl MCH (28-32) pg Plt Count (140-440) K/mm3 POC ABG pH (7.35-7.45) Potassium 2.8 L* D (3.6-5.0) mmol/L Carbon Dioxide (22-30) mmol/L BUN 30 H (7-17) mg/dL Creatinine 1.6 H (0.7-1.2) mg/dL Glucose 107 H (65-100) mg/dL POC Glucose (70-105) Lactic Acid 8.70 H* (0.7-2.0) mmol/L Calcium 6.9 L (8.4-10.2) mg/dL Phosphorus 2.00 L (2.5-4.5) mg/dL PTH Intact 171.6 H (15-65) pg/mL Urine Creatinine (0.1-20.0) mg/dL Urine Total Protein (5-11.8) mg/dL 03/21/19 03/21/19 03/21/19 Range/Units 00:30 04:12 04:12 RBC 2.84 L (3.65-5.03) M/mm3 Hgb 9.5 L (10.1-14.3) gm/dl Hct 28.3 L (30.3-42.9) % MCV 100 H (79-97) fl MCH 33 H (28-32) pg Plt Count 79 L (140-440) K/mm3 POC ABG pH (7.35-7.45) Potassium 3.0 L (3.6-5.0) mmol/L Carbon Dioxide 21 L (22-30) mmol/L BUN (7-17) mg/dL Creatinine 1.4 H (0.7-1.2) mg/dL Glucose 103 H (65-100) mg/dL POC Glucose (70-105) Lactic Acid 9.40 H* (0.7-2.0) mmol/L Calcium 6.8 L (8.4-10.2) mg/dL Phosphorus (2.5-4.5) mg/dL PTH Intact (15-65) pg/mL Urine Creatinine (0.1-20.0) mg/dL Urine Total Protein (5-11.8) mg/dL 03/21/19 03/21/19 03/21/19 Range/Units 04:12 04:43 08:06 RBC (3.65-5.03) M/mm3 Hgb (10.1-14.3) gm/dl Hct (30.3-42.9) % MCV (79-97) fl MCH (28-32) pg Plt Count (140-440) K/mm3 POC ABG pH 7.456 H (7.35-7.45) Potassium (3.6-5.0) mmol/L Carbon Dioxide (22-30) mmol/L BUN (7-17) mg/dL Creatinine (0.7-1.2) mg/dL Glucose (65-100) mg/dL POC Glucose (70-105) Lactic Acid 9.50 H* 8.00 H* (0.7-2.0) mmol/L Calcium (8.4-10.2) mg/dL Phosphorus (2.5-4.5) mg/dL PTH Intact (15-65) pg/mL Urine Creatinine (0.1-20.0) mg/dL Urine Total Protein (5-11.8) mg/dL 03/21/19 03/21/19 03/21/19 Range/Units 08:08 10:11 11:17 RBC (3.65-5.03) M/mm3 Hgb (10.1-14.3) gm/dl Hct (30.3-42.9) % MCV (79-97) fl MCH (28-32) pg Plt Count (140-440) K/mm3 POC ABG pH (7.35-7.45) Potassium 3.5 L (3.6-5.0) mmol/L Carbon Dioxide (22-30) mmol/L BUN 22 H (7-17) mg/dL Creatinine 1.3 H (0.7-1.2) mg/dL Glucose (65-100) mg/dL POC Glucose 64 L 173 H (70-105) Lactic Acid (0.7-2.0) mmol/L Calcium 7.0 L (8.4-10.2) mg/dL Phosphorus (2.5-4.5) mg/dL PTH Intact (15-65) pg/mL Urine Creatinine (0.1-20.0) mg/dL Urine Total Protein (5-11.8) mg/dL 03/21/19 Range/Units 12:17 RBC (3.65-5.03) M/mm3 Hgb (10.1-14.3) gm/dl Hct (30.3-42.9) % MCV (79-97) fl MCH (28-32) pg Plt Count (140-440) K/mm3 POC ABG pH (7.35-7.45) Potassium (3.6-5.0) mmol/L Carbon Dioxide (22-30) mmol/L BUN (7-17) mg/dL Creatinine (0.7-1.2) mg/dL Glucose (65-100) mg/dL POC Glucose 110 H (70-105) Lactic Acid (0.7-2.0) mmol/L Calcium (8.4-10.2) mg/dL Phosphorus (2.5-4.5) mg/dL PTH Intact (15-65) pg/mL Urine Creatinine (0.1-20.0) mg/dL Urine Total Protein (5-11.8) mg/dL
--- NOTE | 2019-03-21 14:41 | Consultation ---
History of Present Illness Consult date: 03/21/19 Consult reason: atrial fibrillation History of present illness: This is a 73-year old female with altered mental status and acute respiratory failure, requiring intubation in the emergency department. Chest x-ray suggestive of pneumonia. Patient is currently, unresponsive, mechanically ventilated and on pressors for support. There are no family members present. An ECG done shows rapid atrial fibrillation. The chronicity of atrial fibrillation is unknown. A cardiac consultation has been requested for further management. Past History Past Medical History: stroke, other (not available) Past Surgical History: Other (not available) Social history: lives with family, full code Family history: hypertension Medications and Allergies Allergies Allergy/AdvReac Type Severity Reaction Status Date / Time No Known Allergies Allergy Unverified 03/19/19 13:11 Home Medications Medication Instructions Recorded Confirmed Last Taken Type Aspirin EC 81 mg PO DAILY 03/20/19 03/20/19 Unknown History Divalproex Sodium 375 mg PO Q8H PRN 03/20/19 03/20/19 Unknown History Metoprolol [Lopressor TAB] 50 mg PO BID 03/20/19 03/20/19 Unknown History Sennosides/Docusate Sodium [Senna 8.6 mg PO BID PRN 03/20/19 03/20/19 Unknown History Plus Tablet] levETIRAcetam [Keppra TAB] 500 mg PO BID 03/20/19 03/20/19 Unknown History Active Meds: Active Medications Albuterol (Proventil) 2.5 mg IH Q3HRT PRN PRN Reason: Shortness Of Breath Albuterol/Ipratropium (Duoneb *Not For Prn Use*) 1 ampul IH Q6HRT [facility] Last Admin: 03/21/19 13:56 Dose: 1 ampul Documented by: Lipase/Protease/Amylase (Pancretobi Sargent 10,500 Unit) 1 each FEEDTUBE PRN PRN PRN Reason: For Clogged Feeding Tube Aspirin (Baby Aspirin) 81 mg PO DAILY [facility] Last Admin: 03/21/19 11:04 Dose: Not Given Documented by: Budesonide (Pulmicort) 0.5 mg IH Q12HRT [facility] Last Admin: 03/21/19 07:28 Dose: 0.5 mg Documented by: Dextrose (D50w (25gm) Syringe) 50 ml IV PRN PRN PRN Reason: Hypoglycemia Last Admin: 03/21/19 10:23 Dose: 50 ml Documented by: Digoxin (Lanoxin) 0.25 mg IV ONCE ONE Stop: 03/21/19 15:01 Digoxin (Lanoxin) 0.125 mg IV ONCE ONE Stop: 03/21/19 21:01 Digoxin (Lanoxin) 0.125 mg IV Q48HR [facility] Stop: 03/29/19 10:01 Famotidine (Pepcid) 10 mg IV BID [facility] Last Admin: 03/21/19 10:23 Dose: 10 mg Documented by: Fentanyl (Sublimaze) 50 mcg IV Q10MIN PRN PRN Reason: ANALGESIA Last Admin: 03/19/19 13:26 Dose: 50 mcg Documented by: Hydromorphone HCl (Dilaudid) 0.5 mg IV Q3H PRN PRN Reason: Pain , Severe (7-10) Hydrophilic Ointment (Vaseline Lip Therapy) 1 applic TP Q2HR PRN PRN Reason: Dry Lips Fentanyl Citrate (Fentanyl Drip Premix) 2,000 mcg in 100 mls @ 2.835 mls/hr IV TITR [facility]; Protocol Last Titration: 03/21/19 11:33 Dose: 0 mcg/kg/hr, 0 mls/hr Documented by: Amiodarone HCl 900 mg/ (Dextrose) 500 mls @ 33.333 mls/hr IV DIRECT [facility]; Protocol Last Admin: 03/20/19 09:58 Dose: 0.5 mg/min, 16.667 mls/hr Documented by: Cefepime HCl (Maxipime/Ns 2 Gm/100 Ml) 2 gm in 100 mls @ 200 mls/hr IV Q24HR [facility]; Protocol Last Admin: 03/21/19 10:06 Dose: 200 mls/hr Documented by: Norepinephrine (Levophed Drip 4 Mg/Ns 250 Ml) 4 mg in 250 mls @ 7.5 mls/hr IV TITR [facility]; Protocol Last Titration: 03/21/19 13:26 Dose: 6 mcg/min, 22.5 mls/hr Documented by: Vasopressin 20 unit/ Sodium (Chloride) 101 mls @ 9.09 mls/hr IV TITR [facility]; Protocol Vancomycin HCl (Vancomycin/Ns 1 Gm/250 Ml) 1 gm in 250 mls @ 167.007 mls/hr IV Q24HR [facility] Last Admin: 03/21/19 10:10 Dose: 167.007 mls/hr Documented by: Levetiracetam 750 mg/ Dextrose 107.5 mls @ 400 mls/hr IV Q12HR [facility] Last Admin: 03/21/19 11:04 Dose: 400 mls/hr Documented by: Dextrose/Sodium Chloride (D5ns) 1,000 mls @ 100 mls/hr IV DIRECT [facility] Insulin Human Lispro (Humalog) 0 unit SUB-Q Q6HR [facility]; Protocol Last Admin: 03/21/19 11:05 Dose: Not Given Documented by: Metoclopramide HCl (Reglan) 5 mg IV Q6H PRN PRN Reason: Nausea And Vomiting Multi-Ingred Cream/Lotion/Oil/Oint (Artificial Tears Ophth Oint) 1 applic OU Q4HR PRN PRN Reason: Dry Eye(s) Ondansetron HCl (Zofran) 4 mg IV Q8H PRN PRN Reason: Nausea And Vomiting Promethazine HCl (Phenergan) 25 mg AL Q6H PRN PRN Reason: N/V IF NPO AND NO IV ACCESS Simple Syrup (Simple Syrup) 15 ml FEEDTUBE PRN PRN PRN Reason: Hypoglycemia Simple Syrup (Simple Syrup) 30 ml FEEDTUBE PRN PRN PRN Reason: Hypoglycemia Sodium Bicarbonate (Sodium Bicarbonate) 325 mg FEEDTUBE PRN PRN PRN Reason: For Clogged Feeding Tube Sodium Chloride (Sodium Chloride Flush Syringe 10 Ml) 10 ml IV BID [facility] Last Admin: 03/21/19 10:06 Dose: 10 ml Documented by: Sodium Chloride (Sodium Chloride Flush Syringe 10 Ml) 10 ml IV PRN PRN PRN Reason: LINE FLUSH Physical Examination Vital Signs Temp Pulse Resp BP 98.4 F 131 H 18 69/49 03/19/19 12:47 03/19/19 12:47 03/19/19 12:47 03/19/19 12:47 General appearance: other (intubated on the vent) Cardiac: Positive: irregularly irregular Results 03/21/19 04:12 03/21/19 08:08 CBC 03/20/19 03/21/19 Range/Units 17:50 04:12 WBC 8.0 10.0 (4.5-11.0) K/mm3 RBC 2.92 L 2.84 L (3.65-5.03) M/mm3 Hgb 10.0 L 9.5 L (10.1-14.3) gm/dl Hct 29.3 L 28.3 L (30.3-42.9) % Plt Count 81 L 79 L (140-440) K/mm3 Comprehensive Metabolic Panel 03/20/19 03/21/19 03/21/19 Range/Units 17:50 04:12 08:08 Sodium 141 D 138 140 (137-145) mmol/L Potassium 2.8 L* D 3.0 L 3.5 L (3.6-5.0) mmol/L Chloride 101.4 98.1 100.8 (98-107) mmol/L Carbon Dioxide 22 21 L 23 (22-30) mmol/L BUN 30 H 16 22 H (7-17) mg/dL Creatinine 1.6 H 1.4 H 1.3 H (0.7-1.2) mg/dL Glucose 107 H 103 H 74 (65-100) mg/dL Calcium 6.9 L 6.8 L 7.0 L (8.4-10.2) mg/dL Assessment and Plan Acute respiratory failure Sepsis Pneumonia Acute kidney failure -resolved Atrial fibrillation on IV amiodarone Altered mental status Continue intravenous amiodarone for atrial fibrillation. In addition, we will add digoxin for optimal rate control. We will also check a TSH.
[2019-03-21] MEDS ORDERED: LANOXIN IV NR ×2 (15:00→21:00)
[2019-03-21] MEDS: D5NS 1,000 ML IV SCH (15:11)
--- NOTE | 2019-03-21 15:11 | Ultrasound Report ---
ULTRASOUND RENAL INDICATION: HA COMPARISON: No relevant prior imaging study available. FINDINGS: Note: Study was difficult due to the patient's body habitus. Detail is limited. RIGHT KIDNEY: Size: 8.4 cm. Echogenicity: Mildly echogenic. Cortical thickness: Normal. Stones: None. Hydronephrosis: None. Cyst or mass: None. LEFT KIDNEY: Size: 17.4 cm. Echogenicity: Mildly echogenic. Cortical thickness: Normal. Stones: None. Hydronephrosis: None. Cyst or mass: None. Urinary Bladder: Adam catheter decompresses the bladder. Free Fluid: None. Additional Findings: None. IMPRESSION: Mild increase in renal cortical echogenicity bilaterally Signer Name: Viral Gomes MD Signed: 03/21/2019 3:06 PM Workstation Name: [id number]
--- NOTE | 2019-03-21 22:34 | Event Note ---
ED central line note Requested by Dr. Leblanc to place central line EDMD central line note Indication: Vasopressor support Location: Right femoral The area of line placement was thoroughly prepared with chlorhexidine then draped using sterile technique. The area was locally anesthetized with lidocaine 1% 5 mL A triple lumen central venous catheter was placed using standard Seldinger technique. There was return of dark nonpulsatile blood from all ports. The catheter was secured in place using adhesive A sterile dressing was placed over the line. The patient tolerated the procedure well Complications: First attempt resulted in arterial puncture. Needle was removed and pressure held
[2019-03-21] MEDS: CORDARONE 900 MG in D5W 482 ML IV SCH (22:52)
[2019-03-22] MEDS: HumaLOG SUB-Q SCH ×4 (00:21→18:24)
[2019-03-22] MEDS: D5NS 1,000 ML IV SCH ×2 (01:26→11:45)
--- NOTE | 2019-03-22 03:07 | XRay Report ---
CHEST 1 VIEW 03/22/2019 2:00 AM INDICATION / CLINICAL INFORMATION: follow up respiratory failure. COMPARISON: One view of the chest from 03/21/2019. FINDINGS: SUPPORT DEVICES: Stable positioning. HEART / MEDIASTINUM: Stable. LUNGS / PLEURA: Lung volumes are similarly reduced with increased bilateral pulmonary opacities. Ther e is a small left pleural effusion. No pneumothorax. ADDITIONAL FINDINGS: No significant additional findings. IMPRESSION: Increased bilateral pulmonary opacities with a small left pleural effusion. Signer Name: Chin Morris MD Signed: 03/22/2019 3:03 AM Workstation Name: [id number]
[2019-03-22] MEDS: DUONEB *Not for PRN Use IH SCH ×4 (04:06→19:18)
[2019-03-22 06:52] LABS: BUN/Creatinine Ratio 17; Blood Urea Nitrogen 15 mg/dL (7-17); Hemolysis Index 3
[2019-03-22] MEDS: PULMICORT IH SCH ×2 (07:17→19:18)
[2019-03-22] MEDS ORDERED: POTASSIUM CHLORIDE FEEDTUBE SCH (10:00)
[2019-03-22] MEDS: KEPPRA 750 MG in D5W 100 ML IV SCH ×2 (10:57→21:59)
[2019-03-22] MEDS: VANCOMYCIN/NS 1 GM/250 ML 1 GM/250 ML BAG IV SCH (10:57)
[2019-03-22] MEDS: MAXIPIME/NS 2 GM/100 ML 2 GM/100 ML BAG IV SCH ×2 (10:59→21:58)
[2019-03-22] MEDS ORDERED: POTASSIUM CHLORIDE PO ONE (11:00)
[2019-03-22] MEDS: PEPCID PO SCH ×2 (11:00→21:59)
[2019-03-22] MEDS: BABY ASPIRIN PO SCH (11:00)
[2019-03-22] MEDS: SODIUM CHLORIDE FLUSH SYRINGE 10 ML IV SCH ×2 (11:45→23:00)
--- NOTE | 2019-03-22 11:46 | Progress Note ---
Assessment and Plan Assessment: Acute Hypoxic Respiratory Failure Acute Kidney Injury possibly prerenal, ischemic ATN from hypotension, questionable whether underlying CKD process, r/o obstruction: Metabolic Acidosis Sepsis secondary to bilateral PNA Possible RUL Aspiration PNA Hypotension Hypomagnesemia Hypernatremia Elevated Troponin Plan: - Renal function reviewed. Serum creatinine 0.9, yesterday's was 1.3, non- oliguric. - On D5/NS at 100 ml/hr, will decrease to 50 ml/hr given edema and small pleural effusion on CXR - S/P Levaphed drip for blood pressure support - Renal US showed- Mild echogenicity bilaterally. No Hydronephrosis. - Renally dose meds - Adam Catheter: Yes - Obtain daily weights - Continue to monitor renal function Subjective Date of service: 03/22/19 Principal diagnosis: resp fail sepsis Interval history: Patient seen lying in bed. Patient is intubated. No family at bedside. Objective - Vital Signs Vital signs: Vital Signs - 12hr 03/21/19 03/22/19 03/22/19 23:45 00:00 00:12 Temperature 99.2 F Pulse Rate 141 H 149 H 156 H Pulse Rate [ Anterior Bilateral Throughout] Pulse Rate [ 149 H From Monitor] Respiratory 30 H 26 H 18 Rate Respiratory Rate [Anterior Bilateral Throughout] Blood Pressure 107/44 104/45 104/45 O2 Sat by Pulse 99 100 100 Oximetry 03/22/19 03/22/19 03/22/19 00:15 00:30 00:45 Temperature Pulse Rate 151 H 149 H 140 H Pulse Rate [ Anterior Bilateral Throughout] Pulse Rate [ From Monitor] Respiratory 34 H 20 26 H Rate Respiratory Rate [Anterior Bilateral Throughout] Blood Pressure 106/52 92/53 90/57 O2 Sat by Pulse 99 100 98 Oximetry 03/22/19 03/22/19 03/22/19 01:00 01:03 01:15 Temperature Pulse Rate 138 H 142 H 137 H Pulse Rate [ Anterior Bilateral Throughout] Pulse Rate [ From Monitor] Respiratory 26 H 23 Rate Respiratory Rate [Anterior Bilateral Throughout] Blood Pressure 98/59 98/59 98/50 O2 Sat by Pulse 99 100 99 Oximetry 03/22/19 03/22/19 03/22/19 01:30 01:45 02:00 Temperature Pulse Rate 143 H 138 H 140 H Pulse Rate [ Anterior Bilateral Throughout] Pulse Rate [ From Monitor] Respiratory 19 23 20 Rate Respiratory Rate [Anterior Bilateral Throughout] Blood Pressure 99/56 109/60 101/55 O2 Sat by Pulse 97 97 97 Oximetry 03/22/19 03/22/19 03/22/19 02:15 02:30 02:45 Temperature Pulse Rate 139 H 138 H 146 H Pulse Rate [ Anterior Bilateral Throughout] Pulse Rate [ From Monitor] Respiratory 22 23 21 Rate Respiratory Rate [Anterior Bilateral Throughout] Blood Pressure 109/58 105/59 97/53 O2 Sat by Pulse 96 97 96 Oximetry 03/22/19 03/22/19 03/22/19 03:00 03:15 03:30 Temperature Pulse Rate 140 H 142 H 143 H Pulse Rate [ Anterior Bilateral Throughout] Pulse Rate [ From Monitor] Respiratory 17 23 27 H Rate Respiratory Rate [Anterior Bilateral Throughout] Blood Pressure 102/54 89/56 98/54 O2 Sat by Pulse 96 97 96 Oximetry 03/22/19 03/22/19 03/22/19 03:40 03:46 04:00 Temperature 99.1 F Pulse Rate 138 H 133 H 144 H Pulse Rate [ Anterior Bilateral Throughout] Pulse Rate [ 139 H From Monitor] Respiratory 26 H 16 Rate Respiratory Rate [Anterior Bilateral Throughout] Blood Pressure 98/54 112/66 97/66 O2 Sat by Pulse 98 94 96 Oximetry 03/22/19 03/22/19 03/22/19 04:08 04:15 04:30 Temperature Pulse Rate 143 H 143 H Pulse Rate [ 140 H Anterior Bilateral Throughout] Pulse Rate [ From Monitor] Respiratory 17 10 L Rate Respiratory 20 Rate [Anterior Bilateral Throughout] Blood Pressure 99/58 108/50 O2 Sat by Pulse 95 95 Oximetry 03/22/19 03/22/19 03/22/19 04:45 05:00 05:15 Temperature Pulse Rate 142 H 149 H 150 H Pulse Rate [ Anterior Bilateral Throughout] Pulse Rate [ From Monitor] Respiratory 22 31 H 22 Rate Respiratory Rate [Anterior Bilateral Throughout] Blood Pressure 105/51 113/59 113/56 O2 Sat by Pulse 95 96 96 Oximetry 03/22/19 03/22/19 03/22/19 05:30 05:45 06:00 Temperature Pulse Rate 144 H 138 H 140 H Pulse Rate [ Anterior Bilateral Throughout] Pulse Rate [ From Monitor] Respiratory 16 16 19 Rate Respiratory Rate [Anterior Bilateral Throughout] Blood Pressure 95/52 98/49 95/58 O2 Sat by Pulse 97 96 Oximetry 03/22/19 03/22/19 03/22/19 06:15 06:30 06:45 Temperature Pulse Rate 141 H 140 H 141 H Pulse Rate [ Anterior Bilateral Throughout] Pulse Rate [ From Monitor] Respiratory 19 18 19 Rate Respiratory Rate [Anterior Bilateral Throughout] Blood Pressure 89/62 87/63 101/65 O2 Sat by Pulse 96 96 96 Oximetry 03/22/19 03/22/19 03/22/19 07:00 07:15 07:17 Temperature Pulse Rate 146 H 149 H Pulse Rate [ 144 H Anterior Bilateral Throughout] Pulse Rate [ From Monitor] Respiratory 19 22 Rate Respiratory 18 Rate [Anterior Bilateral Throughout] Blood Pressure 88/67 105/60 O2 Sat by Pulse 97 Oximetry 03/22/19 03/22/19 03/22/19 07:30 07:45 08:00 Temperature Pulse Rate 144 H 147 H 140 H Pulse Rate [ Anterior Bilateral Throughout] Pulse Rate [ From Monitor] Respiratory 22 15 19 Rate Respiratory Rate [Anterior Bilateral Throughout] Blood Pressure 105/60 114/62 117/58 O2 Sat by Pulse 98 97 97 Oximetry 03/22/19 03/22/19 03/22/19 08:15 08:26 08:30 Temperature Pulse Rate 143 H 146 H 147 H Pulse Rate [ Anterior Bilateral Throughout] Pulse Rate [ From Monitor] Respiratory 15 12 Rate Respiratory Rate [Anterior Bilateral Throughout] Blood Pressure 92/64 88/67 117/58 O2 Sat by Pulse 98 96 98 Oximetry 03/22/19 03/22/19 03/22/19 08:45 09:00 09:15 Temperature Pulse Rate 141 H 146 H 126 H Pulse Rate [ Anterior Bilateral Throughout] Pulse Rate [ From Monitor] Respiratory 18 13 14 Rate Respiratory Rate [Anterior Bilateral Throughout] Blood Pressure 101/61 99/60 88/64 O2 Sat by Pulse 97 97 97 Oximetry - General Appearance General appearance: sedated on ventilator, intubated EENT: ATNC Neck: no JVD Respiratory: Present: Decreased Breath Sounds, Other (Intubated) Cardiology: S1S2 Gastrointestinal: normoactive bowel sounds Integumentary: warm and dry, skin tear Neurologic: other (seadted) Musculoskeletal: other (2+ edema to BLE) - Lab 03/21/19 04:12 03/22/19 06:10 Most recent lab results Calcium 7.0 mg/dL (8.4-10.2) L 03/22/19 06:10 Phosphorus 2.00 mg/dL (2.5-4.5) L 03/20/19 17:50 Magnesium 1.70 mg/dL (1.7-2.3) 03/21/19 04:12 53.7 mg/dL (0.1-20.0) H 03/20/19 16:40 116 mmol/L 03/20/19 16:40 36 mg/dL (5-11.8) H 03/20/19 16:40 Medications & Allergies - Medications Allergies/Adverse Reactions: Allergies No Known Allergies Allergy (Unverified 03/19/19 13:11) Home Medications: Home Medications Medication Instructions Recorded Confirmed Last Taken Type Aspirin EC 81 mg PO DAILY 03/20/19 03/20/19 Unknown History Divalproex Sodium 375 mg PO Q8H PRN 03/20/19 03/20/19 Unknown History Metoprolol [Lopressor TAB] 50 mg PO BID 03/20/19 03/20/19 Unknown History Sennosides/Docusate Sodium [Senna 8.6 mg PO BID PRN 03/20/19 03/20/19 Unknown History Plus Tablet] levETIRAcetam [Keppra TAB] 500 mg PO BID 03/20/19 03/20/19 Unknown History Active Medications: Generic Name Dose Route Start Last Admin Trade Name Freq PRN Reason Stop Dose Admin Albuterol 2.5 mg 03/19/19 23:58 Proventil IH Q3HRT PRN Shortness Of Breath Albuterol/Ipratropium 1 ampul 03/20/19 02:00 03/22/19 07:17 Duoneb *Not For Prn Use* IH 1 ampul Q6HRT YUSUF Administration Lipase/Protease/Amylase 1 each 03/19/19 23:58 Pancretobi Sargent 10,500 Unit FEEDTUBE PRN PRN For Clogged Feeding Tube Aspirin 81 mg 03/21/19 10:00 03/22/19 11:00 Baby Aspirin PO 81 mg DAILY YUSUF Administration Budesonide 0.5 mg 03/19/19 23:45 03/22/19 07:17 Pulmicort IH 0.5 mg Q12HRT YUSUF Administration Dextrose 50 ml 03/19/19 23:58 03/21/19 16:29 D50w (25gm) Syringe IV 50 ml PRN PRN Administration Hypoglycemia Digoxin 0.125 mg 03/23/19 10:00 Lanoxin IV 03/29/19 10:01 Q48HR YUSUF Famotidine 20 mg 03/22/19 10:00 03/22/19 11:00 Pepcid PO 20 mg BID YUSUF Administration Fentanyl 50 mcg 03/19/19 12:45 03/19/19 13:26 Sublimaze IV 50 mcg Q10MIN PRN Administration ANALGESIA Hydromorphone HCl 0.5 mg 03/19/19 23:58 Dilaudid IV Q3H PRN Pain , Severe (7-10) Hydrophilic Ointment 1 applic 03/19/19 12:45 Vaseline Lip Therapy TP Q2HR PRN Dry Lips Fentanyl Citrate 2,000 mcg in 100 mls @ 2.835 mls/hr 03/19/19 14:00 03/21/19 11:33 Fentanyl Drip Premix IV 0 mcg/kg/hr TITR YUSUF 0 mls/hr Titration Protocol 1 MCG/KG/HR Amiodarone HCl 900 mg/ 500 mls @ 33.333 mls/hr 03/19/19 20:00 03/21/19 22:52 Dextrose IV 0.5 mg/min DIRECT YUSUF 16.667 mls/hr Administration Protocol 1 MG/MIN Norepinephrine 4 mg in 250 mls @ 7.5 mls/hr 03/20/19 11:00 03/21/19 18:00 Levophed Drip 4 Mg/Ns 250 Ml IV 0 mcg/min TITR YUSUF 0 mls/hr Titration Protocol 2 MCG/MIN Vasopressin 20 unit/ Sodium 101 mls @ 9.09 mls/hr 03/20/19 11:00 Chloride IV TITR YUSUF Protocol 0.03 UNITS/MIN Vancomycin HCl 1 gm in 250 mls @ 167.007 mls/hr 03/21/19 10:00 03/22/19 10:57 Vancomycin/Ns 1 Gm/250 Ml IV 167.007 mls/hr Q24HR YUSUF Administration Levetiracetam 750 mg/ Dextrose 107.5 mls @ 400 mls/hr 03/21/19 11:00 03/22/19 10:57 IV 400 mls/hr Q12HR YUSUF Administration Dextrose/Sodium Chloride 1,000 mls @ 100 mls/hr 03/21/19 14:00 03/22/19 01:26 D5ns IV 100 mls/hr DIRECT YUSUF Administration Metronidazole 500 mg in 100 mls @ 100 mls/hr 03/22/19 14:00 Flagyl 500 Mg/100 Ml IV Q8HR YUSUF Cefepime HCl 2 gm in 100 mls @ 200 mls/hr 03/22/19 10:00 03/22/19 10:59 Maxipime/Ns 2 Gm/100 Ml IV 200 mls/hr Q12HR YUSUF Administration Protocol Insulin Human Lispro 0 unit 03/20/19 00:00 03/22/19 06:17 Humalog SUB-Q Not Given Q6HR [facility] Protocol Metoclopramide HCl 5 mg 03/20/19 00:12 Reglan IV Q6H PRN Nausea And Vomiting Multi-Ingred Cream/Lotion/Oil/Oint 1 applic 03/19/19 12:45 Artificial Tears Ophth Oint OU Q4HR PRN Dry Eye(s) Ondansetron HCl 4 mg 03/19/19 23:58 Zofran IV Q8H PRN Nausea And Vomiting Promethazine HCl 25 mg 03/19/19 23:58 Phenergan PA Q6H PRN N/V IF NPO AND NO IV ACCESS Simple Syrup 15 ml 03/19/19 23:58 Simple Syrup FEEDTUBE PRN PRN Hypoglycemia Simple Syrup 30 ml 03/19/19 23:58 Simple Syrup FEEDTUBE PRN PRN Hypoglycemia Sodium Bicarbonate 325 mg 03/19/19 23:58 Sodium Bicarbonate FEEDTUBE PRN PRN For Clogged Feeding Tube Sodium Chloride 10 ml 03/20/19 10:00 03/21/19 22:44 Sodium Chloride Flush Syringe 10 Ml IV 10 ml BID YUSUF Administration Sodium Chloride 10 ml 03/19/19 23:58 Sodium Chloride Flush Syringe 10 Ml IV PRN PRN LINE FLUSH
--- NOTE | 2019-03-22 12:37 | Progress Note ---
Assessment and Plan 03/20 Resp Fail on vent suspect septic AMS prev stroke pneu P: vent support abx monitor bp support 03/21 Not weanable ongoing tachycardia met acid incr resp rate continue support and abx septic appearance ?source central line and nutritional support may need hyperal try TF slowly ?d/c Amio per cards wean pressors as verónica CC time 40min 03/22 as above fem line placed needs central line TF started will monitor continue support Subjective Date of service: 03/22/19 Principal diagnosis: resp fail sepsis Interval history: 03/21 on vent tapering levophed bp improving off sedation still tachy acidotic 03/22 Remains on vent AF/rvr not weanable on abx bp some better off pressors Objective Vital Signs - 12hr 03/22/19 03/22/19 03/22/19 00:45 01:00 01:03 Temperature Pulse Rate 140 H 138 H 142 H Pulse Rate [ Anterior Bilateral Throughout] Pulse Rate [ From Monitor] Respiratory 26 H 26 H Rate Respiratory Rate [Anterior Bilateral Throughout] Blood Pressure 90/57 98/59 98/59 O2 Sat by Pulse 98 99 100 Oximetry 03/22/19 03/22/19 03/22/19 01:15 01:30 01:45 Temperature Pulse Rate 137 H 143 H 138 H Pulse Rate [ Anterior Bilateral Throughout] Pulse Rate [ From Monitor] Respiratory 23 19 23 Rate Respiratory Rate [Anterior Bilateral Throughout] Blood Pressure 98/50 99/56 109/60 O2 Sat by Pulse 99 97 97 Oximetry 03/22/19 03/22/19 03/22/19 02:00 02:15 02:30 Temperature Pulse Rate 140 H 139 H 138 H Pulse Rate [ Anterior Bilateral Throughout] Pulse Rate [ From Monitor] Respiratory 20 22 23 Rate Respiratory Rate [Anterior Bilateral Throughout] Blood Pressure 101/55 109/58 105/59 O2 Sat by Pulse 97 96 97 Oximetry 03/22/19 03/22/19 03/22/19 02:45 03:00 03:15 Temperature Pulse Rate 146 H 140 H 142 H Pulse Rate [ Anterior Bilateral Throughout] Pulse Rate [ From Monitor] Respiratory 21 17 23 Rate Respiratory Rate [Anterior Bilateral Throughout] Blood Pressure 97/53 102/54 89/56 O2 Sat by Pulse 96 96 97 Oximetry 03/22/19 03/22/19 03/22/19 03:30 03:40 03:46 Temperature Pulse Rate 143 H 138 H 133 H Pulse Rate [ Anterior Bilateral Throughout] Pulse Rate [ From Monitor] Respiratory 27 H 26 H Rate Respiratory Rate [Anterior Bilateral Throughout] Blood Pressure 98/54 98/54 112/66 O2 Sat by Pulse 96 98 94 Oximetry 03/22/19 03/22/19 03/22/19 04:00 04:08 04:15 Temperature 99.1 F Pulse Rate 144 H 143 H Pulse Rate [ 140 H Anterior Bilateral Throughout] Pulse Rate [ 139 H From Monitor] Respiratory 16 17 Rate Respiratory 20 Rate [Anterior Bilateral Throughout] Blood Pressure 97/66 99/58 O2 Sat by Pulse 96 95 Oximetry 03/22/19 03/22/19 03/22/19 04:30 04:45 05:00 Temperature Pulse Rate 143 H 142 H 149 H Pulse Rate [ Anterior Bilateral Throughout] Pulse Rate [ From Monitor] Respiratory 10 L 22 31 H Rate Respiratory Rate [Anterior Bilateral Throughout] Blood Pressure 108/50 105/51 113/59 O2 Sat by Pulse 95 95 96 Oximetry 03/22/19 03/22/19 03/22/19 05:15 05:30 05:45 Temperature Pulse Rate 150 H 144 H 138 H Pulse Rate [ Anterior Bilateral Throughout] Pulse Rate [ From Monitor] Respiratory 22 16 16 Rate Respiratory Rate [Anterior Bilateral Throughout] Blood Pressure 113/56 95/52 98/49 O2 Sat by Pulse 96 97 Oximetry 03/22/19 03/22/19 03/22/19 06:00 06:15 06:30 Temperature Pulse Rate 140 H 141 H 140 H Pulse Rate [ Anterior Bilateral Throughout] Pulse Rate [ From Monitor] Respiratory 19 19 18 Rate Respiratory Rate [Anterior Bilateral Throughout] Blood Pressure 95/58 89/62 87/63 O2 Sat by Pulse 96 96 96 Oximetry 03/22/19 03/22/19 03/22/19 06:45 07:00 07:15 Temperature Pulse Rate 141 H 146 H 149 H Pulse Rate [ Anterior Bilateral Throughout] Pulse Rate [ From Monitor] Respiratory 19 19 22 Rate Respiratory Rate [Anterior Bilateral Throughout] Blood Pressure 101/65 88/67 105/60 O2 Sat by Pulse 96 97 Oximetry 03/22/19 03/22/19 03/22/19 07:17 07:30 07:45 Temperature Pulse Rate 144 H 147 H Pulse Rate [ 144 H Anterior Bilateral Throughout] Pulse Rate [ From Monitor] Respiratory 22 15 Rate Respiratory 18 Rate [Anterior Bilateral Throughout] Blood Pressure 105/60 114/62 O2 Sat by Pulse 98 97 Oximetry 03/22/19 03/22/19 03/22/19 08:00 08:15 08:26 Temperature Pulse Rate 140 H 143 H 146 H Pulse Rate [ Anterior Bilateral Throughout] Pulse Rate [ From Monitor] Respiratory 19 15 Rate Respiratory Rate [Anterior Bilateral Throughout] Blood Pressure 117/58 92/64 88/67 O2 Sat by Pulse 97 98 96 Oximetry 03/22/19 03/22/19 03/22/19 08:30 08:45 09:00 Temperature Pulse Rate 147 H 141 H 146 H Pulse Rate [ Anterior Bilateral Throughout] Pulse Rate [ From Monitor] Respiratory 12 18 13 Rate Respiratory Rate [Anterior Bilateral Throughout] Blood Pressure 117/58 101/61 99/60 O2 Sat by Pulse 98 97 97 Oximetry 03/22/19 03/22/19 03/22/19 09:15 09:30 09:45 Temperature Pulse Rate 126 H 123 H 122 H Pulse Rate [ Anterior Bilateral Throughout] Pulse Rate [ From Monitor] Respiratory 14 12 15 Rate Respiratory Rate [Anterior Bilateral Throughout] Blood Pressure 88/64 96/54 105/54 O2 Sat by Pulse 97 97 98 Oximetry 03/22/19 03/22/19 03/22/19 10:00 10:15 10:30 Temperature Pulse Rate 122 H 121 H 118 H Pulse Rate [ Anterior Bilateral Throughout] Pulse Rate [ From Monitor] Respiratory 14 13 16 Rate Respiratory Rate [Anterior Bilateral Throughout] Blood Pressure 103/57 111/60 116/58 O2 Sat by Pulse 98 97 98 Oximetry 03/22/19 03/22/19 03/22/19 10:45 11:00 11:15 Temperature Pulse Rate 123 H 122 H 122 H Pulse Rate [ Anterior Bilateral Throughout] Pulse Rate [ From Monitor] Respiratory 22 23 13 Rate Respiratory Rate [Anterior Bilateral Throughout] Blood Pressure 113/61 107/67 115/60 O2 Sat by Pulse 98 98 98 Oximetry 03/22/19 03/22/19 03/22/19 11:30 11:45 12:00 Temperature Pulse Rate 123 H 116 H 120 H Pulse Rate [ Anterior Bilateral Throughout] Pulse Rate [ From Monitor] Respiratory 25 H 22 22 Rate Respiratory Rate [Anterior Bilateral Throughout] Blood Pressure 115/60 109/68 116/65 O2 Sat by Pulse 98 97 Oximetry 03/22/19 12:15 Temperature Pulse Rate 119 H Pulse Rate [ Anterior Bilateral Throughout] Pulse Rate [ From Monitor] Respiratory 16 Rate Respiratory Rate [Anterior Bilateral Throughout] Blood Pressure 123/69 O2 Sat by Pulse 97 Oximetry Constitutional: lethargic, other (intubated on vent min responsive off sedation) ENT: other (intubated ) Effort: mildly labored, other (poor efforts ) Ascultation: Bilateral: diminished breath sounds (grossly clear ) Percussion: Bilateral: not dull Cardiovascular: other (tachy AF ) Gastrointestinal: hypoactive bowel sounds Integumentary: normal Extremities: anasarca Neurologic: unable to assess, other (L paresis eyes open tongue out on command ) Additional exam: 03/22 Vent mgmt a/c 16/ MV 7 pp20/5 PRVC spornt efforts min RR>40 very quickly unable to maintain CBC and BMP: 03/21/19 04:12 03/22/19 06:10 ABG, PT/INR, D-dimer: ABG POC ABG pH 7.487 (7.35-7.45) H 03/22/19 04:02 POC ABG pO2 67 (80-105) L 03/22/19 04:02 POC ABG HCO3 22.1 (22-26 mml/L) 03/22/19 04:02 POC ABG Total CO2 23 (23-27mmol/L) 03/22/19 04:02 POC ABG O2 Sat 95 03/22/19 04:02 Abnormal lab findings: Abnormal Labs 03/19/19 03/19/19 03/19/19 12:59 12:59 12:59 RBC 3.44 L Hgb Hct MCV 101 H MCH 34 H Plt Count 98 L Seg Neuts % (Manual) 11.0 L Monocytes % (Manual) 10.0 H Nucleated RBC % 1.0 H Seg Neutrophils # Man 0.6 L POC ABG pH POC ABG pCO2 POC ABG pO2 Sodium 149 H Potassium Chloride 109.4 H Carbon Dioxide BUN 51 H Creatinine 3.2 H Glucose 58 L POC Glucose Lactic Acid 7.60 H* Calcium 7.8 L Phosphorus Magnesium 1.60 L AST 75 H Total Creatine Kinase 1499 H Troponin T 0.109 H* Total Protein 5.2 L Albumin 1.7 L Prealbumin LDL Cholesterol Direct 22 L HDL Cholesterol 31 L TSH PTH Intact Urine Creatinine Urine Total Protein Salicylates Acetaminophen 07/03/19/19 03/19/19 12:59 12:59 14:48 RBC Hgb Hct MCV MCH Plt Count Seg Neuts % (Manual) Monocytes % (Manual) Nucleated RBC % Seg Neutrophils # Man POC ABG pH POC ABG pCO2 POC ABG pO2 Sodium Potassium Chloride Carbon Dioxide BUN Creatinine Glucose POC Glucose 44 L Lactic Acid Calcium Phosphorus Magnesium AST Total Creatine Kinase Troponin T Total Protein Albumin Prealbumin LDL Cholesterol Direct HDL Cholesterol TSH PTH Intact Urine Creatinine Urine Total Protein Salicylates < 0.3 L Acetaminophen < 5.0 L 03/19/19 03/19/19 03/19/19 15:33 15:52 16:26 RBC Hgb Hct MCV MCH Plt Count Seg Neuts % (Manual) Monocytes % (Manual) Nucleated RBC % Seg Neutrophils # Man POC ABG pH POC ABG pCO2 POC ABG pO2 Sodium Potassium Chloride Carbon Dioxide BUN Creatinine Glucose POC Glucose 228 H 231 H Lactic Acid Calcium Phosphorus Magnesium AST Total Creatine Kinase Troponin T Total Protein Albumin Prealbumin LDL Cholesterol Direct HDL Cholesterol TSH PTH Intact Urine Creatinine 31.8 H Urine Total Protein Salicylates Acetaminophen 03/19/19 03/19/19 03/19/19 16:38 17:14 18:43 RBC Hgb Hct MCV MCH Plt Count Seg Neuts % (Manual) Monocytes % (Manual) Nucleated RBC % Seg Neutrophils # Man POC ABG pH 7.196 L POC ABG pCO2 30.8 L POC ABG pO2 Sodium Potassium Chloride Carbon Dioxide BUN Creatinine Glucose POC Glucose 235 H Lactic Acid 8.10 H* Calcium Phosphorus Magnesium AST Total Creatine Kinase Troponin T Total Protein Albumin Prealbumin LDL Cholesterol Direct HDL Cholesterol TSH PTH Intact Urine Creatinine Urine Total Protein Salicylates Acetaminophen 03/19/19 03/19/19 03/19/19 18:52 20:00 20:56 RBC Hgb Hct MCV MCH Plt Count Seg Neuts % (Manual) Monocytes % (Manual) Nucleated RBC % Seg Neutrophils # Man POC ABG pH POC ABG pCO2 POC ABG pO2 Sodium Potassium Chloride Carbon Dioxide BUN Creatinine Glucose POC Glucose 240 H 117 H Lactic Acid 5.90 H* Calcium Phosphorus Magnesium AST Total Creatine Kinase Troponin T Total Protein Albumin Prealbumin LDL Cholesterol Direct HDL Cholesterol TSH PTH Intact Urine Creatinine Urine Total Protein Salicylates Acetaminophen 03/19/19 03/19/19 03/19/19 21:19 22:07 23:00 RBC Hgb Hct MCV MCH Plt Count Seg Neuts % (Manual) Monocytes % (Manual) Nucleated RBC % Seg Neutrophils # Man POC ABG pH POC ABG pCO2 POC ABG pO2 Sodium Potassium Chloride Carbon Dioxide BUN Creatinine Glucose POC Glucose < 40 L 136 H Lactic Acid 6.10 H* Calcium Phosphorus Magnesium AST Total Creatine Kinase Troponin T Total Protein Albumin Prealbumin LDL Cholesterol Direct HDL Cholesterol TSH PTH Intact Urine Creatinine Urine Total Protein Salicylates Acetaminophen 03/20/19 03/20/19 03/20/19 00:05 01:38 02:23 RBC Hgb Hct MCV MCH Plt Count Seg Neuts % (Manual) Monocytes % (Manual) Nucleated RBC % Seg Neutrophils # Man POC ABG pH POC ABG pCO2 POC ABG pO2 Sodium Potassium Chloride Carbon Dioxide BUN Creatinine Glucose POC Glucose 68 L 153 H 127 H Lactic Acid Calcium Phosphorus Magnesium AST Total Creatine Kinase Troponin T Total Protein Albumin Prealbumin LDL Cholesterol Direct HDL Cholesterol TSH PTH Intact Urine Creatinine Urine Total Protein Salicylates Acetaminophen 03/20/19 03/20/19 03/20/19 03:12 04:31 04:41 RBC Hgb Hct MCV MCH Plt Count Seg Neuts % (Manual) Monocytes % (Manual) Nucleated RBC % Seg Neutrophils # Man POC ABG pH POC ABG pCO2 POC ABG pO2 53 L 65 L Sodium Potassium Chloride Carbon Dioxide BUN Creatinine Glucose POC Glucose 109 H Lactic Acid Calcium Phosphorus Magnesium AST Total Creatine Kinase Troponin T Total Protein Albumin Prealbumin LDL Cholesterol Direct HDL Cholesterol TSH PTH Intact Urine Creatinine Urine Total Protein Salicylates Acetaminophen 03/20/19 03/20/19 03/20/19 05:50 07:29 08:14 RBC Hgb Hct MCV MCH Plt Count Seg Neuts % (Manual) Monocytes % (Manual) Nucleated RBC % Seg Neutrophils # Man POC ABG pH POC ABG pCO2 POC ABG pO2 Sodium Potassium Chloride Carbon Dioxide BUN Creatinine Glucose 61 L POC Glucose 47 L 153 H Lactic Acid Calcium Phosphorus Magnesium 1.60 L AST Total Creatine Kinase Troponin T Total Protein Albumin Prealbumin LDL Cholesterol Direct HDL Cholesterol TSH PTH Intact Urine Creatinine Urine Total Protein Salicylates Acetaminophen 03/20/19 03/20/19 03/20/19 08:23 08:23 10:59 RBC Hgb Hct MCV MCH Plt Count Seg Neuts % (Manual) Monocytes % (Manual) Nucleated RBC % Seg Neutrophils # Man POC ABG pH POC ABG pCO2 POC ABG pO2 Sodium Potassium Chloride Carbon Dioxide BUN Creatinine Glucose 101 H POC Glucose 233 H Lactic Acid 9.70 H* Calcium Phosphorus Magnesium AST Total Creatine Kinase Troponin T Total Protein Albumin Prealbumin 0.052 L LDL Cholesterol Direct HDL Cholesterol TSH PTH Intact Urine Creatinine Urine Total Protein Salicylates Acetaminophen 03/20/19 03/20/19 03/20/19 12:23 16:10 16:40 RBC Hgb Hct MCV MCH Plt Count Seg Neuts % (Manual) Monocytes % (Manual) Nucleated RBC % Seg Neutrophils # Man POC ABG pH POC ABG pCO2 POC ABG pO2 Sodium Potassium Chloride Carbon Dioxide BUN Creatinine Glucose POC Glucose 135 H 171 H Lactic Acid Calcium Phosphorus Magnesium AST Total Creatine Kinase Troponin T Total Protein Albumin Prealbumin LDL Cholesterol Direct HDL Cholesterol TSH PTH Intact Urine Creatinine 53.7 H Urine Total Protein 36 H Salicylates Acetaminophen 03/20/19 03/20/19 03/20/19 16:57 17:38 17:50 RBC Hgb Hct MCV MCH Plt Count Seg Neuts % (Manual) Monocytes % (Manual) Nucleated RBC % Seg Neutrophils # Man POC ABG pH POC ABG pCO2 POC ABG pO2 Sodium Potassium Chloride Carbon Dioxide BUN Creatinine Glucose POC Glucose 152 H 147 H Lactic Acid 9.90 H* Calcium Phosphorus Magnesium AST Total Creatine Kinase Troponin T Total Protein Albumin Prealbumin LDL Cholesterol Direct HDL Cholesterol TSH PTH Intact Urine Creatinine Urine Total Protein Salicylates Acetaminophen 03/20/19 03/20/19 03/20/19 17:50 17:50 17:50 RBC 2.92 L Hgb 10.0 L Hct 29.3 L MCV 100 H MCH 34 H Plt Count 81 L Seg Neuts % (Manual) Monocytes % (Manual) Nucleated RBC % Seg Neutrophils # Man POC ABG pH POC ABG pCO2 POC ABG pO2 Sodium Potassium 2.8 L* D Chloride Carbon Dioxide BUN 30 H Creatinine 1.6 H Glucose 107 H POC Glucose Lactic Acid Calcium 6.9 L Phosphorus 2.00 L Magnesium AST Total Creatine Kinase Troponin T Total Protein Albumin Prealbumin LDL Cholesterol Direct HDL Cholesterol TSH PTH Intact 171.6 H Urine Creatinine Urine Total Protein Salicylates Acetaminophen 03/20/19 03/21/19 03/21/19 21:12 00:30 04:12 RBC Hgb Hct MCV MCH Plt Count Seg Neuts % (Manual) Monocytes % (Manual) Nucleated RBC % Seg Neutrophils # Man POC ABG pH POC ABG pCO2 POC ABG pO2 Sodium Potassium 3.0 L Chloride Carbon Dioxide 21 L BUN Creatinine 1.4 H Glucose 103 H POC Glucose Lactic Acid 8.70 H* 9.40 H* Calcium 6.8 L Phosphorus Magnesium AST Total Creatine Kinase Troponin T Total Protein Albumin Prealbumin LDL Cholesterol Direct HDL Cholesterol TSH PTH Intact Urine Creatinine Urine Total Protein Salicylates Acetaminophen 03/21/19 03/21/19 03/21/19 04:12 04:12 04:43 RBC 2.84 L Hgb 9.5 L Hct 28.3 L MCV 100 H MCH 33 H Plt Count 79 L Seg Neuts % (Manual) Monocytes % (Manual) Nucleated RBC % Seg Neutrophils # Man POC ABG pH 7.456 H POC ABG pCO2 POC ABG pO2 Sodium Potassium Chloride Carbon Dioxide BUN Creatinine Glucose POC Glucose Lactic Acid 9.50 H* Calcium Phosphorus Magnesium AST Total Creatine Kinase Troponin T Total Protein Albumin Prealbumin LDL Cholesterol Direct HDL Cholesterol TSH PTH Intact Urine Creatinine Urine Total Protein Salicylates Acetaminophen 03/21/19 03/21/19 03/21/19 08:06 08:08 10:11 RBC Hgb Hct MCV MCH Plt Count Seg Neuts % (Manual) Monocytes % (Manual) Nucleated RBC % Seg Neutrophils # Man POC ABG pH POC ABG pCO2 POC ABG pO2 Sodium Potassium 3.5 L Chloride Carbon Dioxide BUN 22 H Creatinine 1.3 H Glucose POC Glucose 64 L Lactic Acid 8.00 H* Calcium 7.0 L Phosphorus Magnesium AST Total Creatine Kinase Troponin T Total Protein Albumin Prealbumin LDL Cholesterol Direct HDL Cholesterol TSH PTH Intact Urine Creatinine Urine Total Protein Salicylates Acetaminophen 03/21/19 03/21/19 03/21/19 11:17 12:17 13:37 RBC Hgb Hct MCV MCH Plt Count Seg Neuts % (Manual) Monocytes % (Manual) Nucleated RBC % Seg Neutrophils # Man POC ABG pH POC ABG pCO2 POC ABG pO2 Sodium Potassium Chloride Carbon Dioxide BUN Creatinine Glucose POC Glucose 173 H 110 H Lactic Acid Calcium Phosphorus Magnesium AST Total Creatine Kinase Troponin T 0.033 H D Total Protein Albumin Prealbumin LDL Cholesterol Direct HDL Cholesterol TSH PTH Intact Urine Creatinine Urine Total Protein Salicylates Acetaminophen 03/21/19 03/21/19 03/21/19 13:37 17:21 18:52 RBC Hgb Hct MCV MCH Plt Count Seg Neuts % (Manual) Monocytes % (Manual) Nucleated RBC % Seg Neutrophils # Man POC ABG pH POC ABG pCO2 POC ABG pO2 Sodium Potassium Chloride Carbon Dioxide BUN Creatinine Glucose POC Glucose 130 H 107 H Lactic Acid 6.80 H* Calcium Phosphorus Magnesium AST Total Creatine Kinase Troponin T Total Protein Albumin Prealbumin LDL Cholesterol Direct HDL Cholesterol TSH PTH Intact Urine Creatinine Urine Total Protein Salicylates Acetaminophen 03/21/19 03/21/19 03/21/19 20:20 22:08 23:05 RBC Hgb Hct MCV MCH Plt Count Seg Neuts % (Manual) Monocytes % (Manual) Nucleated RBC % Seg Neutrophils # Man POC ABG pH POC ABG pCO2 POC ABG pO2 Sodium Potassium Chloride Carbon Dioxide BUN Creatinine Glucose POC Glucose 106 H 106 H Lactic Acid Calcium Phosphorus Magnesium AST Total Creatine Kinase Troponin T 0.036 H Total Protein Albumin Prealbumin LDL Cholesterol Direct HDL Cholesterol TSH PTH Intact Urine Creatinine Urine Total Protein Salicylates Acetaminophen 03/21/19 03/21/19 03/22/19 23:05 23:05 00:14 RBC Hgb Hct MCV MCH Plt Count Seg Neuts % (Manual) Monocytes % (Manual) Nucleated RBC % Seg Neutrophils # Man POC ABG pH POC ABG pCO2 POC ABG pO2 Sodium Potassium Chloride Carbon Dioxide BUN Creatinine Glucose POC Glucose 122 H 109 H Lactic Acid 7.00 H* Calcium Phosphorus Magnesium AST Total Creatine Kinase Troponin T Total Protein Albumin Prealbumin LDL Cholesterol Direct HDL Cholesterol TSH PTH Intact Urine Creatinine Urine Total Protein Salicylates Acetaminophen 03/22/19 03/22/19 03/22/19 03:10 04:02 05:11 RBC Hgb Hct MCV MCH Plt Count Seg Neuts % (Manual) Monocytes % (Manual) Nucleated RBC % Seg Neutrophils # Man POC ABG pH 7.487 H POC ABG pCO2 POC ABG pO2 67 L Sodium Potassium Chloride Carbon Dioxide BUN Creatinine Glucose POC Glucose 114 H 112 H Lactic Acid Calcium Phosphorus Magnesium AST Total Creatine Kinase Troponin T Total Protein Albumin Prealbumin LDL Cholesterol Direct HDL Cholesterol TSH PTH Intact Urine Creatinine Urine Total Protein Salicylates Acetaminophen 03/22/19 03/22/19 03/22/19 06:06 06:10 06:10 RBC Hgb Hct MCV MCH Plt Count Seg Neuts % (Manual) Monocytes % (Manual) Nucleated RBC % Seg Neutrophils # Man POC ABG pH POC ABG pCO2 POC ABG pO2 Sodium Potassium 3.0 L Chloride Carbon Dioxide BUN Creatinine Glucose POC Glucose 115 H Lactic Acid Calcium 7.0 L Phosphorus Magnesium AST Total Creatine Kinase Troponin T 0.036 H Total Protein Albumin Prealbumin LDL Cholesterol Direct HDL Cholesterol TSH PTH Intact Urine Creatinine Urine Total Protein Salicylates Acetaminophen 03/22/19 03/22/19 06:10 06:10 RBC Hgb Hct MCV MCH Plt Count Seg Neuts % (Manual) Monocytes % (Manual) Nucleated RBC % Seg Neutrophils # Man POC ABG pH POC ABG pCO2 POC ABG pO2 Sodium Potassium Chloride Carbon Dioxide BUN Creatinine Glucose POC Glucose Lactic Acid 4.80 H* Calcium Phosphorus Magnesium AST Total Creatine Kinase Troponin T Total Protein Albumin Prealbumin LDL Cholesterol Direct HDL Cholesterol TSH 7.810 H PTH Intact Urine Creatinine Urine Total Protein Salicylates Acetaminophen Chest x-ray: image reviewed (03/21 incr bilat infilt )
--- NOTE | 2019-03-22 12:57 | Progress Note ---
<TAYA HIGHTOWER - Last Filed: 03/22/19 12:59> Assessment and Plan Acute respiratory failure Sepsis Pneumonia Acute kidney failure -resolved Atrial fibrillation, paroxysmal on IV amiodarone reverted to sinus rhythm Altered mental status Echocardiogram shows a normal left ventricular systolic function, ejection fraction 60-65%. We will transition of oral amiodarone. Patient currently in sinus rhythm on medical therapy. Need long-term oral anticoagulation depends on clinical course. Subjective Date of service: 03/22/19 Principal diagnosis: resp fail sepsis Interval history: Remains intubated on the vent. Now off pressors. Sinus tachycardia on telemetry. Objective Vital Signs Temp Pulse Pulse Pulse Resp Resp BP 03/22/19 12:34 99.7 F H 03/22/19 12:30 119 H 20 113/59 03/22/19 12:15 119 H 16 123/69 03/22/19 12:00 119 H 22 113/59 03/22/19 11:45 116 H 22 109/68 03/22/19 11:30 123 H 25 H 115/60 03/22/19 11:15 122 H 13 115/60 03/22/19 11:00 122 H 23 107/67 03/22/19 10:45 123 H 22 113/61 03/22/19 10:30 118 H 16 116/58 03/22/19 10:15 121 H 13 111/60 03/22/19 10:00 122 H 14 103/57 03/22/19 09:45 122 H 15 105/54 03/22/19 09:30 123 H 12 96/54 03/22/19 09:15 126 H 14 88/64 03/22/19 09:00 146 H 13 99/60 03/22/19 08:45 141 H 18 101/61 03/22/19 08:30 147 H 12 117/58 03/22/19 08:26 146 H 88/67 03/22/19 08:15 143 H 15 92/64 03/22/19 08:00 98.7 F 140 H 19 117/58 03/22/19 07:45 147 H 15 114/62 03/22/19 07:30 144 H 22 105/60 03/22/19 07:17 144 H 18 03/22/19 07:15 149 H 22 105/60 07/24/19 07:00 146 H 19 88/67 03/22/19 06:45 141 H 19 101/65 03/22/19 06:30 140 H 18 87/63 03/22/19 06:15 141 H 19 89/62 03/22/19 06:00 140 H 19 95/58 03/22/19 05:45 138 H 16 98/49 03/22/19 05:30 144 H 16 95/52 03/22/19 05:15 150 H 22 113/56 03/22/19 05:00 149 H 31 H 113/59 03/22/19 04:45 142 H 22 105/51 03/22/19 04:30 143 H 10 L 108/50 03/22/19 04:15 143 H 17 99/58 03/22/19 04:08 140 H 20 03/22/19 04:00 99.1 F 144 H 139 H 16 97/66 03/22/19 03:46 133 H 26 H 112/66 03/22/19 03:40 138 H 98/54 03/22/19 03:30 143 H 27 H 98/54 03/22/19 03:15 142 H 23 89/56 03/22/19 03:00 140 H 17 102/54 03/22/19 02:45 146 H 21 97/53 03/22/19 02:30 138 H 23 105/59 03/22/19 02:15 139 H 22 109/58 03/22/19 02:00 140 H 20 101/55 03/22/19 01:45 138 H 23 109/60 03/22/19 01:30 143 H 19 99/56 03/22/19 01:15 137 H 23 98/50 03/22/19 01:03 142 H 98/59 03/22/19 01:00 138 H 26 H 98/59 03/22/19 00:45 140 H 26 H 90/57 03/22/19 00:30 149 H 20 92/53 03/22/19 00:15 151 H 34 H 106/52 03/22/19 00:12 156 H 18 104/45 03/22/19 00:00 99.2 F 149 H 149 H 26 H 104/45 03/21/19 23:45 141 H 30 H 107/44 03/21/19 23:30 152 H 30 H 118/55 03/21/19 23:15 149 H 31 H 118/55 03/21/19 23:00 144 H 28 H 118/60 03/21/19 22:45 148 H 28 H 112/58 03/21/19 22:30 147 H 22 109/61 03/21/19 22:16 153 H 20 112/58 03/21/19 22:00 149 H 19 115/58 03/21/19 21:45 154 H 18 94/64 03/21/19 21:32 158 H 105/58 03/21/19 21:30 157 H 30 H 105/58 03/21/19 21:15 167 H 29 H 109/70 03/21/19 21:00 161 H 35 H 109/70 03/21/19 20:45 153 H 33 H 114/70 03/21/19 20:38 128 H 26 H 03/21/19 20:32 151 H 119/75 03/21/19 20:30 155 H 32 H 119/75 03/21/19 20:15 149 H 32 H 123/73 03/21/19 20:01 183 H 34 H 123/73 03/21/19 20:00 99.9 F H 155 H 155 H 30 H 03/21/19 19:45 155 H 27 H 123/73 03/21/19 19:30 154 H 30 H 120/67 03/21/19 19:15 150 H 29 H 104/66 03/21/19 19:00 154 H 30 H 94/61 03/21/19 18:45 170 H 31 H 100/65 03/21/19 18:30 152 H 21 100/65 03/21/19 18:15 150 H 24 105/62 03/21/19 18:00 145 H 26 H 117/74 03/21/19 17:45 156 H 27 H 112/65 03/21/19 17:30 147 H 31 H 119/65 03/21/19 17:19 147 H 130/80 03/21/19 17:15 159 H 26 H 128/62 03/21/19 17:00 154 H 37 H 128/62 03/21/19 16:45 141 H 17 114/66 03/21/19 16:30 136 H 23 118/58 03/21/19 16:15 117/68 07/23/19 16:00 137 H 18 113/62 03/21/19 15:45 140 H 43 H 98/59 03/21/19 15:33 135 H 97/69 03/21/19 15:30 139 H 21 97/59 03/21/19 15:15 156 H 24 105/66 03/21/19 15:00 141 H 24 116/64 03/21/19 14:45 143 H 19 117/63 03/21/19 14:30 109/60 03/21/19 14:15 108/60 03/21/19 14:00 141 H 23 113/60 03/21/19 13:57 128 H 22 03/21/19 13:45 143 H 21 113/60 03/21/19 13:30 138 H 17 114/59 03/21/19 13:15 143 H 30 H 111/66 03/21/19 13:00 140 H 26 H 107/60 Pulse Ox 03/22/19 12:34 03/22/19 12:30 98 03/22/19 12:15 97 03/22/19 12:00 98 03/22/19 11:45 98 03/22/19 11:30 03/22/19 11:15 98 03/22/19 11:00 98 03/22/19 10:45 98 03/22/19 10:30 98 03/22/19 10:15 97 03/22/19 10:00 98 03/22/19 09:45 98 03/22/19 09:30 97 03/22/19 09:15 97 03/22/19 09:00 97 03/22/19 08:45 97 03/22/19 08:30 98 03/22/19 08:26 96 03/22/19 08:15 98 03/22/19 08:00 97 03/22/19 07:45 97 03/22/19 07:30 98 03/22/19 07:17 03/22/19 07:15 97 03/22/19 07:00 03/22/19 06:45 96 03/22/19 06:30 96 03/22/19 06:15 96 03/22/19 06:00 96 03/22/19 05:45 97 03/22/19 05:30 03/22/19 05:15 96 03/22/19 05:00 96 03/22/19 04:45 95 03/22/19 04:30 95 03/22/19 04:15 95 03/22/19 04:08 03/22/19 04:00 96 03/22/19 03:46 94 03/22/19 03:40 98 03/22/19 03:30 96 03/22/19 03:15 97 03/22/19 03:00 96 03/22/19 02:45 96 03/22/19 02:30 97 03/22/19 02:15 96 03/22/19 02:00 97 03/22/19 01:45 97 03/22/19 01:30 97 03/22/19 01:15 99 03/22/19 01:03 100 03/22/19 01:00 99 03/22/19 00:45 98 03/22/19 00:30 100 03/22/19 00:15 99 03/22/19 00:12 100 03/22/19 00:00 100 03/21/19 23:45 99 03/21/19 23:30 99 03/21/19 23:15 98 03/21/19 23:00 100 03/21/19 22:45 98 03/21/19 22:30 99 03/21/19 22:16 98 03/21/19 22:00 98 03/21/19 21:45 97 03/21/19 21:32 03/21/19 21:30 98 03/21/19 21:15 98 03/21/19 21:00 95 03/21/19 20:45 98 03/21/19 20:38 03/21/19 20:32 99 03/21/19 20:30 97 03/21/19 20:15 98 03/21/19 20:01 99 03/21/19 20:00 98 03/21/19 19:45 97 03/21/19 19:30 96 03/21/19 19:15 98 03/21/19 19:00 96 03/21/19 18:45 96 03/21/19 18:30 97 03/21/19 18:15 97 03/21/19 18:00 97 03/21/19 17:45 97 03/21/19 17:30 98 03/21/19 17:19 98 03/21/19 17:15 96 03/21/19 17:00 96 03/21/19 16:45 97 03/21/19 16:30 100 03/21/19 16:15 100 03/21/19 16:00 100 03/21/19 15:45 100 03/21/19 15:33 03/21/19 15:30 100 03/21/19 15:15 100 03/21/19 15:00 100 03/21/19 14:45 100 03/21/19 14:30 100 03/21/19 14:15 100 03/21/19 14:00 100 03/21/19 13:57 03/21/19 13:45 03/21/19 13:30 99 03/21/19 13:15 99 03/21/19 13:00 99 - Physical Examination General: Other (intubated on the vent) Cardiac: Positive: Tachycardia - Labs and Meds Comprehensive Metabolic Panel 03/22/19 Range/Units 06:10 Sodium 141 (137-145) mmol/L Potassium 3.0 L (3.6-5.0) mmol/L Chloride 103.4 (98-107) mmol/L Carbon Dioxide 26 (22-30) mmol/L BUN 15 (7-17) mg/dL Creatinine 0.9 (0.7-1.2) mg/dL Glucose 96 (65-100) mg/dL Calcium 7.0 L (8.4-10.2) mg/dL - Imaging and Cardiology EKG: report reviewed (sinus tachycardia heart rate of 129/m) <CARITO QUIÑONES - Last Filed: 03/29/19 11:41> Assessment and Plan Seen and evaluated the patient improved with this plan. Patient has a history of paroxysmal atrial fibrillation. Patient's rhythm has been converted to sinus rhythm with IV amiodarone. Echocardiogram shows normal LV function. We'll transition the patient by mouth amiodarone. No long-term anticoagulation at this time - review need for anticoagulation patient's clinical course. Objective Vital Signs Temp Pulse Pulse Pulse Resp Resp BP 03/29/19 09:00 125 H 24 03/29/19 08:33 121 H 120/58 03/29/19 08:30 123 H 17 120/58 03/29/19 08:15 121 H 13 135/57 03/29/19 08:00 101.4 F H 121 H 125 H 17 130/58 03/29/19 07:45 124 H 18 135/56 03/29/19 07:30 122 H 20 134/58 03/29/19 07:15 123 H 16 131/60 03/29/19 07:00 124 H 17 130/62 03/29/19 06:45 123 H 15 135/56 03/29/19 06:30 121 H 21 129/58 03/29/19 06:15 123 H 20 127/59 03/29/19 06:00 122 H 15 128/56 03/29/19 05:45 123 H 16 133/56 03/29/19 05:30 123 H 15 144/61 03/29/19 05:15 120 H 16 136/60 03/29/19 05:00 123 H 17 142/63 03/29/19 04:45 123 H 15 135/67 03/29/19 04:30 123 H 13 124/58 03/29/19 04:15 124 H 13 112/58 03/29/19 04:00 100.1 F H 123 H 121 H 13 120/58 03/29/19 03:45 122 H 13 118/51 03/29/19 03:30 124 H 13 111/50 03/29/19 03:15 126 H 19 108/59 03/29/19 03:00 125 H 14 107/54 03/29/19 02:45 126 H 15 107/54 03/29/19 02:43 133 H 24 03/29/19 02:30 127 H 17 124/59 03/29/19 02:15 129 H 18 126/74 03/29/19 02:00 128 H 14 121/57 03/29/19 01:45 122 H 17 121/57 03/29/19 01:30 121 H 18 131/57 03/29/19 01:15 120 H 15 128/58 03/29/19 01:00 119 H 20 129/59 03/29/19 00:45 122 H 17 127/58 03/29/19 00:30 122 H 25 H 123/55 03/29/19 00:15 123 H 13 119/54 03/29/19 00:00 99.0 F 123 H 124 H 13 123/54 03/28/19 23:52 123 H 17 123/54 03/28/19 23:45 124 H 16 123/54 03/28/19 23:40 125 H 115/55 03/28/19 23:30 124 H 17 115/55 03/28/19 23:15 124 H 14 120/57 03/28/19 23:00 125 H 23 126/56 03/28/19 22:45 126 H 18 117/63 03/28/19 22:30 125 H 17 125/61 03/28/19 22:15 124 H 18 139/59 03/28/19 22:00 127 H 19 138/60 03/28/19 21:45 128 H 28 H 138/60 03/28/19 21:30 126 H 20 127/58 03/28/19 21:15 127 H 18 137/57 03/28/19 21:00 129 H 18 121/56 03/28/19 20:45 126 H 13 117/56 03/28/19 20:30 126 H 17 131/56 03/28/19 20:15 130 H 15 132/56 03/28/19 20:00 100.8 F H 131 H 131 H 13 124/61 03/28/19 19:58 130 H 24 03/28/19 19:45 132 H 18 114/54 03/28/19 19:30 132 H 17 129/54 03/28/19 19:25 127 H 115/52 03/28/19 19:15 130 H 15 115/52 03/28/19 19:00 128 H 23 114/54 03/28/19 18:45 129 H 22 114/54 03/28/19 18:30 130 H 16 115/46 03/28/19 18:15 129 H 14 107/56 03/28/19 18:00 130 H 18 100/55 03/28/19 17:45 127 H 20 95/45 03/28/19 17:30 130 H 22 111/51 03/28/19 17:15 131 H 17 115/58 03/28/19 17:00 128 H 21 115/56 03/28/19 16:45 128 H 17 116/53 03/28/19 16:30 128 H 15 101/53 03/28/19 16:15 129 H 16 105/48 03/28/19 16:00 99.5 F 129 H 16 126/42 03/28/19 15:45 128 H 17 109/52 07/30/19 15:30 128 H 17 108/53 03/28/19 15:15 129 H 16 115/61 03/28/19 15:11 128 H 115/61 03/28/19 15:00 126 H 18 118/61 03/28/19 14:45 126 H 43 H 118/61 03/28/19 14:40 139 H 21 03/28/19 14:30 127 H 26 H 104/56 03/28/19 14:15 128 H 22 98/59 03/28/19 14:00 127 H 22 107/52 03/28/19 13:54 100 F H 03/28/19 13:45 131 H 20 122/52 03/28/19 13:30 128 H 17 126/56 03/28/19 13:15 128 H 16 125/54 03/28/19 13:00 127 H 15 123/59 03/28/19 12:45 126 H 14 144/63 03/28/19 12:30 127 H 15 130/60 03/28/19 12:15 124 H 14 135/60 03/28/19 12:00 126 H 15 125/56 03/28/19 11:45 126 H 17 127/56 Pulse Ox 03/29/19 09:00 03/29/19 08:33 100 03/29/19 08:30 98 03/29/19 08:15 99 03/29/19 08:00 99 03/29/19 07:45 100 03/29/19 07:30 99 03/29/19 07:15 98 03/29/19 07:00 98 03/29/19 06:45 98 03/29/19 06:30 99 03/29/19 06:15 99 03/29/19 06:00 98 03/29/19 05:45 98 03/29/19 05:30 99 03/29/19 05:15 99 03/29/19 05:00 98 03/29/19 04:45 97 03/29/19 04:30 97 03/29/19 04:15 03/29/19 04:00 95 03/29/19 03:45 96 03/29/19 03:30 96 03/29/19 03:15 95 03/29/19 03:00 95 03/29/19 02:45 93 03/29/19 02:43 03/29/19 02:30 93 03/29/19 02:15 93 03/29/19 02:00 94 03/29/19 01:45 98 03/29/19 01:30 97 03/29/19 01:15 98 03/29/19 01:00 03/29/19 00:45 98 03/29/19 00:30 98 03/29/19 00:15 97 03/29/19 00:00 99 03/28/19 23:52 100 03/28/19 23:45 97 03/28/19 23:40 100 03/28/19 23:30 98 03/28/19 23:15 99 03/28/19 23:00 98 03/28/19 22:45 98 03/28/19 22:30 99 03/28/19 22:15 98 03/28/19 22:00 100 03/28/19 21:45 98 03/28/19 21:30 99 03/28/19 21:15 99 03/28/19 21:00 99 03/28/19 20:45 99 03/28/19 20:30 100 03/28/19 20:15 99 03/28/19 20:00 98 03/28/19 19:58 03/28/19 19:45 97 03/28/19 19:30 97 03/28/19 19:25 100 03/28/19 19:15 98 03/28/19 19:00 100 03/28/19 18:45 99 03/28/19 18:30 99 03/28/19 18:15 99 03/28/19 18:00 99 03/28/19 17:45 100 03/28/19 17:30 99 03/28/19 17:15 98 03/28/19 17:00 99 03/28/19 16:45 99 03/28/19 16:30 100 03/28/19 16:15 99 03/28/19 16:00 99 03/28/19 15:45 100 03/28/19 15:30 100 03/28/19 15:15 100 03/28/19 15:11 100 03/28/19 15:00 100 03/28/19 14:45 100 03/28/19 14:40 03/28/19 14:30 98 03/28/19 14:15 99 03/28/19 14:00 100 03/28/19 13:54 03/28/19 13:45 99 03/28/19 13:30 99 03/28/19 13:15 98 03/28/19 13:00 98 03/28/19 12:45 98 03/28/19 12:30 98 03/28/19 12:15 98 03/28/19 12:00 98 03/28/19 11:45 98 - Labs and Meds Cardiac Enzymes 03/29/19 Range/Units 04:40 AST 23 (5-40) units/L Coagulation 03/28/19 03/29/19 Range/Units 14:30 04:40 APTT 70.3 H* 71.8 H* (24.2-36.6) Sec. CBC 03/29/19 Range/Units 04:40 WBC 10.4 (4.5-11.0) K/mm3 RBC 2.17 L (3.65-5.03) M/mm3 Hgb 7.1 L (10.1-14.3) gm/dl Hct 20.8 L (30.3-42.9) % Plt Count 122 L (140-440) K/mm3 Lymph # 2.1 (1.2-5.4) K/mm3 [place] # 0.7 (0.0-0.8) K/mm3 Eos # 0.3 (0.0-0.4) K/mm3 Baso # 0.1 (0.0-0.1) K/mm3 Comprehensive Metabolic Panel 03/29/19 Range/Units 04:40 Sodium 140 (137-145) mmol/L Potassium 3.7 (3.6-5.0) mmol/L Chloride 102.9 (98-107) mmol/L Carbon Dioxide 31 H (22-30) mmol/L BUN 22 H (7-17) mg/dL Creatinine 0.5 L (0.7-1.2) mg/dL Glucose 80 (65-100) mg/dL Calcium 8.0 L (8.4-10.2) mg/dL AST 23 (5-40) units/L ALT 9 (7-56) units/L Alkaline Phosphatase 103 (35-129) units/L Total Protein 5.0 L (6.3-8.2) g/dL Albumin 1.4 L (3.9-5) g/dL
[2019-03-22] MEDS ORDERED: HEPARIN/ 0.45% NACL-25,000 UNIT/500 ML 25,000 UNIT/500 ML BAG IV SCH (13:00)
--- NOTE | 2019-03-22 13:47 | Progress Note ---
Assessment and Plan Acute metabolic encephalopathy, - cont supportive care, CT head negative Acute hypoxic respiratory s/p ETT placement: consulted CCM, wean off vent as tolerated, scheduled nebs Sepsis due to aspiration pneumonia; treat with iv abx, follow cx Septic shock: off pressor, weaned off, BP now stable Paroxysmal Atrial fib, Now NSR - on amioderone drip, added renally dosed digoxin HA (acute kidney injury), atn and vasomotor nephrology, poa: IV fluids for now, Nephrology consulted - renal function improved RUL Aspiration pneumonia: Cont IV Cefepime and IV Vancomycin Hypernatremia: repeat bmp am, Iv fluid Hypomagnesemia: replete and follow as needed Elevated troponin I level NSTEMI II; consulted Cardiology DVT prophylaxis d/w family at bedside full code CCT 34 minutes Brief History Patient is a 73 yo woman without a clear past medical history due to patient presentation of being Altered requiring intubation upon admission. Upon arrival to the emergency room, the patient is obtunded, breathing without difficulty, desaturating, without a gag reflex. Therefore, patient placed on nasal cannula at 15 L/m, and then intubated without difficulty. Patient is started empirically on the sepsis pathway, with broad-spectrum antibiotics, aggressive IV fluids, and post intubation sedation package. * pCXR FINDINGS: SUPPORT DEVICES: Endotracheal tube is in place in good position above the liam. HEART / MEDIASTINUM: No significant abnormality. LUNGS / PLEURA: There is moderate bibasilar lung consolidation and slight right upper lobe consolidation as well. No edema or effusions. No pneumothorax. ADDITIONAL FINDINGS: No significant additional findings. IMPRESSION: 1. Endotracheal tube in good position. * CT head without contrast IMPRESSION: Encephalomalacia in the entire right cerebral hemisphere Volume loss in the left cerebral hemisphere I do not see an acute parenchymal lesion in the brain. * Abdominal Xray 1 view: FINDINGS: TUBES / LINES: The NG tube has been advanced and now terminates along the lateral margin of the gastric fundus. The side- port of the tube projects over the GE junction. BOWEL GAS PATTERN: No significant abnormality. FREE AIR / EXTRALUMINAL GAS: None seen. ADDITIONAL FINDINGS: Opacities are again noted throughout the right lung. The IVC filter is unchanged in position. IMPRESSION: Interval advancement of the NG tube as above. The side-port of the tube is likely located at the GE junction. The tube may be advanced another 3-4 cm if desired. Hospitalist Physical Gen: critcally ill, thin frail, bmi 20, intubated,sedated on Fentanyl HEENT: NCAT, EOMI, PERRL, OP Clear Neck: supple, no adenopathy, no thyromegaly, no JVD CVS/Heart: RRR, normal S1S2, pulses present bilaterally Chest/Lungs: CTA B, Symmetrical chest expansion, good air entry bilaterally GI/Abdomen: soft, NTND, good bowel sounds, no guarding or rebound /Bladder: no suprapubic tenderness, no CVA or paraspinal tenderness Extermity/Skin: no c/c/e, no obvious rash MSK: intubated Neuro: intubated Psych: intubated Subjective Date of service: 03/22/19 Principal diagnosis: resp fail sepsis Interval history: Pt seen and examined updated at the bedside remained intubated, still on pressor/levophed and amioderone iv Objective - Constitutional Vitals: Vital Signs - 12hr 03/22/19 03/22/19 03/22/19 02:00 02:15 02:30 Temperature Pulse Rate 140 H 139 H 138 H Pulse Rate [ Anterior Bilateral Throughout] Pulse Rate [ From Monitor] Respiratory 20 22 23 Rate Respiratory Rate [Anterior Bilateral Throughout] Blood Pressure 101/55 109/58 105/59 O2 Sat by Pulse 97 96 97 Oximetry 03/22/19 03/22/19 03/22/19 02:45 03:00 03:15 Temperature Pulse Rate 146 H 140 H 142 H Pulse Rate [ Anterior Bilateral Throughout] Pulse Rate [ From Monitor] Respiratory 21 17 23 Rate Respiratory Rate [Anterior Bilateral Throughout] Blood Pressure 97/53 102/54 89/56 O2 Sat by Pulse 96 96 97 Oximetry 03/22/19 03/22/19 03/22/19 03:30 03:40 03:46 Temperature Pulse Rate 143 H 138 H 133 H Pulse Rate [ Anterior Bilateral Throughout] Pulse Rate [ From Monitor] Respiratory 27 H 26 H Rate Respiratory Rate [Anterior Bilateral Throughout] Blood Pressure 98/54 98/54 112/66 O2 Sat by Pulse 96 98 94 Oximetry 03/22/19 03/22/19 03/22/19 04:00 04:08 04:15 Temperature 99.1 F Pulse Rate 144 H 143 H Pulse Rate [ 140 H Anterior Bilateral Throughout] Pulse Rate [ 139 H From Monitor] Respiratory 16 17 Rate Respiratory 20 Rate [Anterior Bilateral Throughout] Blood Pressure 97/66 99/58 O2 Sat by Pulse 96 95 Oximetry 03/22/19 03/22/19 03/22/19 04:30 04:45 05:00 Temperature Pulse Rate 143 H 142 H 149 H Pulse Rate [ Anterior Bilateral Throughout] Pulse Rate [ From Monitor] Respiratory 10 L 22 31 H Rate Respiratory Rate [Anterior Bilateral Throughout] Blood Pressure 108/50 105/51 113/59 O2 Sat by Pulse 95 95 96 Oximetry 03/22/19 03/22/19 03/22/19 05:15 05:30 05:45 Temperature Pulse Rate 150 H 144 H 138 H Pulse Rate [ Anterior Bilateral Throughout] Pulse Rate [ From Monitor] Respiratory 22 16 16 Rate Respiratory Rate [Anterior Bilateral Throughout] Blood Pressure 113/56 95/52 98/49 O2 Sat by Pulse 96 97 Oximetry 03/22/19 03/22/19 03/22/19 06:00 06:15 06:30 Temperature Pulse Rate 140 H 141 H 140 H Pulse Rate [ Anterior Bilateral Throughout] Pulse Rate [ From Monitor] Respiratory 19 19 18 Rate Respiratory Rate [Anterior Bilateral Throughout] Blood Pressure 95/58 89/62 87/63 O2 Sat by Pulse 96 96 96 Oximetry 03/22/19 03/22/19 03/22/19 06:45 07:00 07:15 Temperature Pulse Rate 141 H 146 H 149 H Pulse Rate [ Anterior Bilateral Throughout] Pulse Rate [ From Monitor] Respiratory 19 19 22 Rate Respiratory Rate [Anterior Bilateral Throughout] Blood Pressure 101/65 88/67 105/60 O2 Sat by Pulse 96 97 Oximetry 03/22/19 03/22/19 03/22/19 07:17 07:30 07:45 Temperature Pulse Rate 144 H 147 H Pulse Rate [ 144 H Anterior Bilateral Throughout] Pulse Rate [ From Monitor] Respiratory 22 15 Rate Respiratory 18 Rate [Anterior Bilateral Throughout] Blood Pressure 105/60 114/62 O2 Sat by Pulse 98 97 Oximetry 03/22/19 03/22/19 03/22/19 08:00 08:15 08:26 Temperature 98.7 F Pulse Rate 140 H 143 H 146 H Pulse Rate [ Anterior Bilateral Throughout] Pulse Rate [ From Monitor] Respiratory 19 15 Rate Respiratory Rate [Anterior Bilateral Throughout] Blood Pressure 117/58 92/64 88/67 O2 Sat by Pulse 97 98 96 Oximetry 07/24/19 07/24/19 07/24/19 08:30 08:45 09:00 Temperature Pulse Rate 147 H 141 H 146 H Pulse Rate [ Anterior Bilateral Throughout] Pulse Rate [ From Monitor] Respiratory 12 18 13 Rate Respiratory Rate [Anterior Bilateral Throughout] Blood Pressure 117/58 101/61 99/60 O2 Sat by Pulse 98 97 97 Oximetry 03/22/19 03/22/19 03/22/19 09:15 09:30 09:45 Temperature Pulse Rate 126 H 123 H 122 H Pulse Rate [ Anterior Bilateral Throughout] Pulse Rate [ From Monitor] Respiratory 14 12 15 Rate Respiratory Rate [Anterior Bilateral Throughout] Blood Pressure 88/64 96/54 105/54 O2 Sat by Pulse 97 97 98 Oximetry 03/22/19 03/22/19 03/22/19 10:00 10:15 10:30 Temperature Pulse Rate 122 H 121 H 118 H Pulse Rate [ Anterior Bilateral Throughout] Pulse Rate [ From Monitor] Respiratory 14 13 16 Rate Respiratory Rate [Anterior Bilateral Throughout] Blood Pressure 103/57 111/60 116/58 O2 Sat by Pulse 98 97 98 Oximetry 03/22/19 03/22/19 03/22/19 10:45 11:00 11:15 Temperature Pulse Rate 123 H 122 H 122 H Pulse Rate [ Anterior Bilateral Throughout] Pulse Rate [ From Monitor] Respiratory 22 23 13 Rate Respiratory Rate [Anterior Bilateral Throughout] Blood Pressure 113/61 107/67 115/60 O2 Sat by Pulse 98 98 98 Oximetry 03/22/19 03/22/19 03/22/19 11:30 11:45 12:00 Temperature Pulse Rate 123 H 116 H 119 H Pulse Rate [ Anterior Bilateral Throughout] Pulse Rate [ From Monitor] Respiratory 25 H 22 22 Rate Respiratory Rate [Anterior Bilateral Throughout] Blood Pressure 115/60 109/68 113/59 O2 Sat by Pulse 98 98 Oximetry 03/22/19 03/22/19 03/22/19 12:15 12:30 12:34 Temperature 99.7 F H Pulse Rate 119 H 119 H Pulse Rate [ Anterior Bilateral Throughout] Pulse Rate [ From Monitor] Respiratory 16 20 Rate Respiratory Rate [Anterior Bilateral Throughout] Blood Pressure 123/69 113/59 O2 Sat by Pulse 97 98 Oximetry 03/22/19 13:13 Temperature Pulse Rate Pulse Rate [ 122 H Anterior Bilateral Throughout] Pulse Rate [ From Monitor] Respiratory Rate Respiratory 24 Rate [Anterior Bilateral Throughout] Blood Pressure O2 Sat by Pulse Oximetry - Labs CBC & Chem 7: 03/23/19 04:50 03/23/19 04:50 Labs: Abnormal lab results 03/21/19 03/21/19 03/21/19 Range/Units 13:37 13:37 17:21 POC ABG pH (7.35-7.45) POC ABG pO2 (80-105) Potassium (3.6-5.0) mmol/L POC Glucose 130 H (70-105) Lactic Acid 6.80 H* (0.7-2.0) mmol/L Calcium (8.4-10.2) mg/dL Troponin T 0.033 H D (0.00-0.029) ng/mL TSH (0.270-4.200) mlU/mL 03/21/19 03/21/19 03/21/19 Range/Units 18:52 20:20 22:08 POC ABG pH (7.35-7.45) POC ABG pO2 (80-105) Potassium (3.6-5.0) mmol/L POC Glucose 107 H 106 H 106 H (70-105) Lactic Acid (0.7-2.0) mmol/L Calcium (8.4-10.2) mg/dL Troponin T (0.00-0.029) ng/mL TSH (0.270-4.200) mlU/mL 03/21/19 03/21/19 03/21/19 Range/Units 23:05 23:05 23:05 POC ABG pH (7.35-7.45) POC ABG pO2 (80-105) Potassium (3.6-5.0) mmol/L POC Glucose 122 H (70-105) Lactic Acid 7.00 H* (0.7-2.0) mmol/L Calcium (8.4-10.2) mg/dL Troponin T 0.036 H (0.00-0.029) ng/mL TSH (0.270-4.200) mlU/mL 03/22/19 03/22/19 03/22/19 Range/Units 00:14 03:10 04:02 POC ABG pH 7.487 H (7.35-7.45) POC ABG pO2 67 L (80-105) Potassium (3.6-5.0) mmol/L POC Glucose 109 H 114 H (70-105) Lactic Acid (0.7-2.0) mmol/L Calcium (8.4-10.2) mg/dL Troponin T (0.00-0.029) ng/mL TSH (0.270-4.200) mlU/mL 03/22/19 03/22/19 03/22/19 Range/Units 05:11 06:06 06:10 POC ABG pH (7.35-7.45) POC ABG pO2 (80-105) Potassium (3.6-5.0) mmol/L POC Glucose 112 H 115 H (70-105) Lactic Acid (0.7-2.0) mmol/L Calcium (8.4-10.2) mg/dL Troponin T 0.036 H (0.00-0.029) ng/mL TSH (0.270-4.200) mlU/mL 03/22/19 03/22/19 03/22/19 Range/Units 06:10 06:10 06:10 POC ABG pH (7.35-7.45) POC ABG pO2 (80-105) Potassium 3.0 L (3.6-5.0) mmol/L POC Glucose (70-105) Lactic Acid 4.80 H* (0.7-2.0) mmol/L Calcium 7.0 L (8.4-10.2) mg/dL Troponin T (0.00-0.029) ng/mL TSH 7.810 H (0.270-4.200) mlU/mL 03/22/19 Range/Units 11:59 POC ABG pH (7.35-7.45) POC ABG pO2 (80-105) Potassium (3.6-5.0) mmol/L POC Glucose (70-105) Lactic Acid 3.80 H* (0.7-2.0) mmol/L Calcium (8.4-10.2) mg/dL Troponin T (0.00-0.029) ng/mL TSH (0.270-4.200) mlU/mL
[2019-03-22] MEDS: FLAGYL 500 MG/100 ML 500 MG/100 ML BAG IV SCH ×2 (14:16→21:58)
[2019-03-22 14:19] LABS: Hematocrit 24.5 % (30.3-42.9); Hemoglobin 8.3 gm/dl (10.1-14.3)
[2019-03-22 14:53] LABS: INR 1.9 (0.87-1.13)
[2019-03-22 14:54] LABS: Partial Thromboplastin Time 43.2 Sec. (24.2-36.6)
--- NOTE | 2019-03-22 15:12 | Progress Note ---
Assessment and Plan Cultures/ID related labs: Blood culture 03/19/2019 no growth. Urine culture 03/19/2019 negative. Assessment: 73 y/o female with history of dementia admitted on 03/20/2019 brought by EMS due to altered mental status: 1) Sepsis with septic shock: shock resolved, still elevated lactate; source pneumonia. UA negative. Blood culture 03/19/2019 no growth. Urine culture 03/19/2019 negative. 2) Bilateral pneumonia: ? aspiration v/s CAP 3) Acute encephalopathy: CT head without contrast shows encephalomalacia in the entire right cerebral hemisphere, volume loss in the left cerebral hemisphere, no acute parenchymal lesion in the brain. 4) Acute respiratory failure: not better, intubated 5) HA: better; renally adjusted all antibiotics Recommendations: continue cefepime, flagyl and vancomycin renally adjusted aspiration precautions Guarded prognosis, was on home hospice. Dr Dwight koch Will follow. Claire Lyn MD Infectious Diseases Inside Account Representative [facility] ([facility]) M [phone] O [phone] Subjective Date of service: 03/22/19 Principal diagnosis: resp fail sepsis Interval history: Remains on the vent, sedated, no fever. No pressors today. Objective - Exam Narrative Exam: General appearance: sedated intubated Eyes: anicteric sclerae, moist conjunctivae; no lid-lag; PERRLA HENT: Atraumatic; oropharynx +ETT Lungs: CTA CV: RRR Abdomen: Soft, non-tender Extremities: vaughn edema, no cyanosis Skin: No rash. Psych: no agitated Neuro: sedated no agitated - Constitutional Vitals: Vital Signs Temp Pulse Resp BP Pulse Ox 99.7 F H 126 H 24 91/64 98 03/22/19 12:34 03/22/19 15:00 03/22/19 15:00 03/22/19 15:00 03/22/19 15:00 Temperature -Last 24 Hours Temperature 99.7 F Temperature 98.7 F Temperature 99.1 F Temperature 99.2 F Temperature 99.9 F - Labs CBC & Chem 7: 03/22/19 13:45 03/22/19 06:10 Labs: Abnormal lab results 03/21/19 03/21/19 03/21/19 Range/Units 17:21 18:52 20:20 Hgb (10.1-14.3) gm/dl Hct (30.3-42.9) % Plt Count (140-440) K/mm3 PT (12.2-14.9) Sec. INR (0.87-1.13) APTT (24.2-36.6) Sec. POC ABG pH (7.35-7.45) POC ABG pO2 (80-105) Potassium (3.6-5.0) mmol/L POC Glucose 130 H 107 H 106 H (70-105) Lactic Acid (0.7-2.0) mmol/L Calcium (8.4-10.2) mg/dL Troponin T (0.00-0.029) ng/mL TSH (0.270-4.200) mlU/mL 03/21/19 03/21/19 03/21/19 Range/Units 22:08 23:05 23:05 Hgb (10.1-14.3) gm/dl Hct (30.3-42.9) % Plt Count (140-440) K/mm3 PT (12.2-14.9) Sec. INR (0.87-1.13) APTT (24.2-36.6) Sec. POC ABG pH (7.35-7.45) POC ABG pO2 (80-105) Potassium (3.6-5.0) mmol/L POC Glucose 106 H (70-105) Lactic Acid 7.00 H* (0.7-2.0) mmol/L Calcium (8.4-10.2) mg/dL Troponin T 0.036 H (0.00-0.029) ng/mL TSH (0.270-4.200) mlU/mL 03/21/19 03/22/19 03/22/19 Range/Units 23:05 00:14 03:10 Hgb (10.1-14.3) gm/dl Hct (30.3-42.9) % Plt Count (140-440) K/mm3 PT (12.2-14.9) Sec. INR (0.87-1.13) APTT (24.2-36.6) Sec. POC ABG pH (7.35-7.45) POC ABG pO2 (80-105) Potassium (3.6-5.0) mmol/L POC Glucose 122 H 109 H 114 H (70-105) Lactic Acid (0.7-2.0) mmol/L Calcium (8.4-10.2) mg/dL Troponin T (0.00-0.029) ng/mL TSH (0.270-4.200) mlU/mL 03/22/19 03/22/19 03/22/19 Range/Units 04:02 05:11 06:06 Hgb (10.1-14.3) gm/dl Hct (30.3-42.9) % Plt Count (140-440) K/mm3 PT (12.2-14.9) Sec. INR (0.87-1.13) APTT (24.2-36.6) Sec. POC ABG pH 7.487 H (7.35-7.45) POC ABG pO2 67 L (80-105) Potassium (3.6-5.0) mmol/L POC Glucose 112 H 115 H (70-105) Lactic Acid (0.7-2.0) mmol/L Calcium (8.4-10.2) mg/dL Troponin T (0.00-0.029) ng/mL TSH (0.270-4.200) mlU/mL 03/22/19 03/22/19 03/22/19 Range/Units 06:10 06:10 06:10 Hgb (10.1-14.3) gm/dl Hct (30.3-42.9) % Plt Count (140-440) K/mm3 PT (12.2-14.9) Sec. INR (0.87-1.13) APTT (24.2-36.6) Sec. POC ABG pH (7.35-7.45) POC ABG pO2 (80-105) Potassium 3.0 L (3.6-5.0) mmol/L POC Glucose (70-105) Lactic Acid (0.7-2.0) mmol/L Calcium 7.0 L (8.4-10.2) mg/dL Troponin T 0.036 H (0.00-0.029) ng/mL TSH 7.810 H (0.270-4.200) mlU/mL 03/22/19 03/22/1903/22/19 Range/Units 06:10 11:59 13:45 Hgb (10.1-14.3) gm/dl Hct (30.3-42.9) % Plt Count (140-440) K/mm3 PT (12.2-14.9) Sec. INR (0.87-1.13) APTT (24.2-36.6) Sec. POC ABG pH (7.35-7.45) POC ABG pO2 (80-105) Potassium (3.6-5.0) mmol/L POC Glucose (70-105) Lactic Acid 4.80 H* 3.80 H* 3.50 H* (0.7-2.0) mmol/L Calcium (8.4-10.2) mg/dL Troponin T (0.00-0.029) ng/mL TSH (0.270-4.200) mlU/mL 03/22/19 03/22/19 Range/Units 13:45 13:45 Hgb 8.3 L (10.1-14.3) gm/dl Hct 24.5 L (30.3-42.9) % Plt Count 56 L (140-440) K/mm3 PT 21.4 H (12.2-14.9) Sec. INR 1.90 H (0.87-1.13) APTT 43.2 H (24.2-36.6) Sec. POC ABG pH (7.35-7.45) POC ABG pO2 (80-105) Potassium (3.6-5.0) mmol/L POC Glucose (70-105) Lactic Acid (0.7-2.0) mmol/L Calcium (8.4-10.2) mg/dL Troponin T (0.00-0.029) ng/mL TSH (0.270-4.200) mlU/mL
[2019-03-22] MEDS ORDERED: SIMPLE SYRUP FEEDTUBE PRN (16:03)
[2019-03-22] MEDS ORDERED: SODIUM BICARBONATE FEEDTUBE PRN (16:03)
[2019-03-22] MEDS ORDERED: PANCREAZE DR 10,500 UNIT FEEDTUBE PRN (16:03)
--- NOTE | 2019-03-22 16:51 | Operative Report ---
Operative Report Operative Report: Exam: Ultrasound placement of TLC Clinical indication: Patient requiring central venous access Date: 03/22/2019 Procedure: Following an inflammation of the risks, benefits and alternatives; written informed consent was obtained. Procedure was performed at bedside in the ICU. Initial ultrasound evaluation of the patient's right neck demonstrated a patent right internal jugular vein. The patient's right neck was prepped and draped in the usual sterile fashion. 1% lidocaine was used for anesthesia. Under ultrasound guidance, the right internal jugular vein was cannulated with a 7 cm 18-gauge needle. A 0.035 guidewire was advanced centrally easily. The needle was removed and following serial dilation over the guidewire, a triple- lumen catheter was placed over the guidewire and advanced centrally. The guidewire was removed. Nonpulsatile blood return from all 3 ports. The catheter was locked with sterile saline. The catheter was securely fastened to the skin surface using 2-0 nylon suture and a sterile dressing applied. The patient tolerated the procedure well. There were no immediate postprocedure complications. Postprocedure chest x-ray was ordered to document appropriate positioning. Impression: Ultrasound guided placement of TLC in the right internal jugular vein.
--- NOTE | 2019-03-22 17:37 | XRay Report ---
CHEST 1 VIEW INDICATION / CLINICAL INFORMATION: right IJV line placement. COMPARISON: 03/22/2019 at 0216 hours FINDINGS: SUPPORT DEVICES: Stable, satisfactory device positioning. A new right internal jugular catheter is be en inserted and the tip is in the expected location of the superior vena cava. HEART / MEDIASTINUM: No significant abnormality. LUNGS / PLEURA: Bilateral airspace opacities are not changed significantly. No pneumothorax. ADDITIONAL FINDINGS: No significant additional findings. IMPRESSION: 1. No change in bilateral airspace disease. Signer Name: Oswaldo Myers MD Signed: 03/22/2019 5:32 PM Workstation Name: [id number]
[2019-03-22] MEDS: CORDARONE PO SCH (21:59)
[2019-03-23] MEDS: HumaLOG SUB-Q SCH ×4 (00:02→19:05)
[2019-03-23] MEDS: DUONEB *Not for PRN Use IH SCH ×4 (01:21→19:35)
--- NOTE | 2019-03-23 02:40 | XRay Report ---
CHEST 1 VIEW 03/23/2019 2:12 AM INDICATION / CLINICAL INFORMATION: follow up respiratory failure. COMPARISON: One view of the chest from 03/22/2019. FINDINGS: SUPPORT DEVICES: Stable. HEART / MEDIASTINUM: No significant abnormality. LUNGS / PLEURA: Stable small bilateral pleural effusions with similar generalized bilateral pulmonary opacities. No pneumothorax. ADDITIONAL FINDINGS: No significant additional findings. IMPRESSION: Stable abnormal appearance of the chest. Signer Name: Chin Morris MD Signed: 03/23/2019 2:35 AM Workstation Name: [id number]
[2019-03-23 05:07] LABS: Hematocrit 22.9 % (30.3-42.9); Hemoglobin 7.7 gm/dl (10.1-14.3); Mean Corpuscular HGB Conc 34 % (30-34); Mean Corpuscular Volume 97 fl (79-97); Red Blood Count 2.36 M/mm3 (3.65-5.03); Red Cell Distribution Width 14.3 % (13.2-15.2)
[2019-03-23 05:08] LABS: Platelet Count 37 K/mm3 (140-440)
[2019-03-23] MEDS: FLAGYL 500 MG/100 ML 500 MG/100 ML BAG IV SCH ×3 (05:26→21:19)
[2019-03-23 05:43] LABS: BUN/Creatinine Ratio 23; Blood Urea Nitrogen 16 mg/dL (7-17); Calcium 7.3 mg/dL (8.4-10.2); Hemolysis Index 3
[2019-03-23] MEDS: D5NS 1,000 ML IV SCH ×2 (07:07→19:06)
[2019-03-23] MEDS: SIMPLE SYRUP FEEDTUBE PRN (07:21)
[2019-03-23] MEDS: PULMICORT IH SCH ×2 (09:22→19:35)
[2019-03-23] MEDS ORDERED: POTASSIUM CHLORIDE FEEDTUBE ONE ×2 (10:00→20:00)
[2019-03-23] MEDS ORDERED: LANOXIN IV SCH (10:00)
[2019-03-23 10:09] LABS: Band Neutrophils # (Manual) 0.8 K/mm3; Basophils % (Manual) 0 % (0.0-1.8); Eosinophils % (Manual) 0 % (0.0-4.3); Total Cells Counted 100
[2019-03-23 10:10] LABS: Hypochromasia 1+; Platelet Estimate Consistent w Auto
[2019-03-23] MEDS: MAXIPIME/NS 2 GM/100 ML 2 GM/100 ML BAG IV SCH ×2 (10:34→21:19)
[2019-03-23] MEDS: KEPPRA 750 MG in D5W 100 ML IV SCH ×2 (10:35→21:20)
[2019-03-23] MEDS: VANCOMYCIN/NS 1 GM/250 ML 1 GM/250 ML BAG IV SCH (10:35)
[2019-03-23] MEDS: PEPCID PO SCH ×2 (10:37→21:20)
[2019-03-23] MEDS: BABY ASPIRIN PO SCH (10:37)
[2019-03-23] MEDS: SODIUM CHLORIDE FLUSH SYRINGE 10 ML IV SCH ×2 (10:37→21:47)
[2019-03-23] MEDS: CORDARONE PO SCH ×2 (10:37→21:20)
--- NOTE | 2019-03-23 11:16 | Progress Note ---
Assessment and Plan 03/20 Resp Fail on vent suspect septic AMS prev stroke pneu P: vent support abx monitor bp support 03/21 Not weanable ongoing tachycardia met acid incr resp rate continue support and abx septic appearance ?source central line and nutritional support may need hyperal try TF slowly ?d/c Amio per cards wean pressors as verónica CC time 40min 03/22 as above fem line placed needs central line TF started will monitor continue support 03/23/19 Resp fail MOF tachycardia acidosis improved Not weanable Cont abx etc Intubated x 5d prog poor ?underlying dementia cc time 35min for vent mgmt review of data discussion w staff/family Subjective Date of service: 03/23/19 Principal diagnosis: resp fail sepsis Interval history: 03/21 on vent tapering levophed bp improving off sedation still tachy acidotic 03/22 Remains on vent AF/rvr not weanable on abx bp some better off pressors 03/23 Minimally responsive bp ok off pressors AF/rvr 130s on vent poor re sp effort failed SBT some incr resp secretions Objective Vital Signs - 12hr 03/22/19 03/22/19 03/22/19 23:15 23:30 23:46 Temperature Pulse Rate 133 H 138 H 141 H Pulse Rate [ Anterior Bilateral Throughout] Pulse Rate [ Right Dorsalis Pedis] Respiratory 19 22 15 Rate Respiratory Rate [Anterior Bilateral Throughout] Blood Pressure 128/60 115/73 101/71 O2 Sat by Pulse 99 98 99 Oximetry 03/23/19 03/23/19 03/23/19 00:00 00:10 00:15 Temperature 100.6 F H Pulse Rate 124 H 128 H 133 H Pulse Rate [ Anterior Bilateral Throughout] Pulse Rate [ 122 H Right Dorsalis Pedis] Respiratory 17 24 Rate Respiratory Rate [Anterior Bilateral Throughout] Blood Pressure 101/71 105/68 122/60 O2 Sat by Pulse 100 100 99 Oximetry 03/23/19 03/23/19 03/23/19 00:30 00:45 01:00 Temperature Pulse Rate 129 H 127 H 126 H Pulse Rate [ Anterior Bilateral Throughout] Pulse Rate [ Right Dorsalis Pedis] Respiratory 19 18 16 Rate Respiratory Rate [Anterior Bilateral Throughout] Blood Pressure 115/55 102/63 102/58 O2 Sat by Pulse 99 100 99 Oximetry 03/23/19 03/23/19 03/23/19 01:15 01:30 01:35 Temperature Pulse Rate 127 H 130 H Pulse Rate [ 126 H Anterior Bilateral Throughout] Pulse Rate [ Right Dorsalis Pedis] Respiratory 16 20 Rate Respiratory 18 Rate [Anterior Bilateral Throughout] Blood Pressure 112/59 100/64 O2 Sat by Pulse 99 98 Oximetry 03/23/19 03/23/19 03/23/19 01:45 02:00 02:16 Temperature Pulse Rate 127 H 128 H 131 H Pulse Rate [ Anterior Bilateral Throughout] Pulse Rate [ Right Dorsalis Pedis] Respiratory 16 21 19 Rate Respiratory Rate [Anterior Bilateral Throughout] Blood Pressure 100/57 96/53 97/58 O2 Sat by Pulse 98 98 99 Oximetry 03/23/19 03/23/19 03/23/19 02:30 02:45 03:00 Temperature Pulse Rate 125 H 122 H 124 H Pulse Rate [ Anterior Bilateral Throughout] Pulse Rate [ Right Dorsalis Pedis] Respiratory 17 14 21 Rate Respiratory Rate [Anterior Bilateral Throughout] Blood Pressure 109/58 90/48 110/60 O2 Sat by Pulse 99 99 Oximetry 03/23/19 03/23/19 03/23/19 03:12 03:15 03:30 Temperature Pulse Rate 124 H 129 H 124 H Pulse Rate [ Anterior Bilateral Throughout] Pulse Rate [ Right Dorsalis Pedis] Respiratory 23 18 Rate Respiratory Rate [Anterior Bilateral Throughout] Blood Pressure 110/60 105/57 103/60 O2 Sat by Pulse 100 99 99 Oximetry 03/23/19 03/23/19 03/23/19 03:45 03:47 04:00 Temperature 100.5 F H Pulse Rate 129 H 126 H Pulse Rate [ Anterior Bilateral Throughout] Pulse Rate [ 132 H Right Dorsalis Pedis] Respiratory 24 25 H Rate Respiratory Rate [Anterior Bilateral Throughout] Blood Pressure 98/67 98/67 O2 Sat by Pulse 99 100 Oximetry 03/23/19 03/23/19 03/23/19 04:15 04:30 04:45 Temperature Pulse Rate 124 H 126 H 124 H Pulse Rate [ Anterior Bilateral Throughout] Pulse Rate [ Right Dorsalis Pedis] Respiratory 17 19 16 Rate Respiratory Rate [Anterior Bilateral Throughout] Blood Pressure 101/59 118/61 115/63 O2 Sat by Pulse 100 100 Oximetry 03/23/19 03/23/19 03/23/19 05:00 05:15 05:30 Temperature Pulse Rate 122 H 122 H 123 H Pulse Rate [ Anterior Bilateral Throughout] Pulse Rate [ Right Dorsalis Pedis] Respiratory 19 16 16 Rate Respiratory Rate [Anterior Bilateral Throughout] Blood Pressure 120/61 119/57 104/65 O2 Sat by Pulse 100 100 100 Oximetry 03/23/19 03/23/19 03/23/19 05:45 06:00 06:15 Temperature Pulse Rate 122 H 124 H 122 H Pulse Rate [ Anterior Bilateral Throughout] Pulse Rate [ Right Dorsalis Pedis] Respiratory 20 25 H 15 Rate Respiratory Rate [Anterior Bilateral Throughout] Blood Pressure 112/67 117/62 121/58 O2 Sat by Pulse 100 100 100 Oximetry 03/23/19 03/23/19 03/23/19 06:30 06:45 07:00 Temperature Pulse Rate 123 H 123 H 126 H Pulse Rate [ Anterior Bilateral Throughout] Pulse Rate [ Right Dorsalis Pedis] Respiratory 24 18 14 Rate Respiratory Rate [Anterior Bilateral Throughout] Blood Pressure 126/69 126/62 110/56 O2 Sat by Pulse 100 100 100 Oximetry 03/23/19 03/23/19 03/23/19 07:15 07:30 07:45 Temperature Pulse Rate 122 H 123 H 121 H Pulse Rate [ Anterior Bilateral Throughout] Pulse Rate [ Right Dorsalis Pedis] Respiratory 17 15 18 Rate Respiratory Rate [Anterior Bilateral Throughout] Blood Pressure 116/61 116/60 122/57 O2 Sat by Pulse 100 100 100 Oximetry 03/23/19 03/23/19 03/23/19 08:00 08:15 08:30 Temperature 99.4 F Pulse Rate 123 H 129 H 127 H Pulse Rate [ Anterior Bilateral Throughout] Pulse Rate [ Right Dorsalis Pedis] Respiratory 17 23 19 Rate Respiratory Rate [Anterior Bilateral Throughout] Blood Pressure 123/63 130/68 124/63 O2 Sat by Pulse 100 Oximetry 03/23/19 03/23/19 03/23/19 08:45 09:00 09:15 Temperature Pulse Rate 127 H 127 H 130 H Pulse Rate [ Anterior Bilateral Throughout] Pulse Rate [ Right Dorsalis Pedis] Respiratory 17 21 25 H Rate Respiratory Rate [Anterior Bilateral Throughout] Blood Pressure 111/65 123/62 116/70 O2 Sat by Pulse Oximetry 03/23/19 03/23/19 03/23/19 09:23 09:30 10:36 Temperature Pulse Rate 128 H 125 H 147 H Pulse Rate [ Anterior Bilateral Throughout] Pulse Rate [ Right Dorsalis Pedis] Respiratory 7 L 19 Rate Respiratory Rate [Anterior Bilateral Throughout] Blood Pressure 116/66 116/66 113/62 O2 Sat by Pulse Oximetry Constitutional: lethargic, other (intubated on vent min responsive off sedation) Eyes: non-icteric ENT: other (intubated ) Neck: supple Effort: mildly labored, other (poor efforts ) Ascultation: Bilateral: rales (coarse bilat ) Percussion: Bilateral: dull Cardiovascular: other (tachy AF ) Gastrointestinal: hypoactive bowel sounds Integumentary: normal Extremities: anasarca Neurologic: unable to assess Additional exam: 03/23 Vent mgmt PRVC RR 14/ pp31/5 MV 7L ABG acceptable Unable to maintain spont efforts RRrapid/shallow CBC and BMP: 03/23/19 04:50 03/23/19 04:50 ABG, PT/INR, D-dimer: ABG POC ABG pH 7.433 (7.35-7.45) 03/23/19 05:25 POC ABG pCO2 33.3 (35-45) L 03/23/19 05:25 POC ABG pO2 91 (80-105) 03/23/19 05:25 POC ABG HCO3 22.2 (22-26 mml/L) 03/23/19 05:25 POC ABG Total CO2 23 (23-27mmol/L) 03/23/19 05:25 POC ABG O2 Sat 97 03/23/19 05:25 PT/INR, D-dimer PT 21.4 Sec. (12.2-14.9) H 03/22/19 13:45 INR 1.90 (0.87-1.13) H 03/22/19 13:45 Abnormal lab findings: Abnormal Labs 03/19/19 03/19/19 03/19/19 12:59 12:59 12:59 WBC RBC 3.44 L Hgb Hct MCV 101 H MCH 34 H Plt Count 98 L Seg Neuts % (Manual) 11.0 L Lymphocytes % (Manual) Monocytes % (Manual) 10.0 H Nucleated RBC % 1.0 H Seg Neutrophils # Man 0.6 L Lymphocytes # (Manual) PT INR APTT POC ABG pH POC ABG pCO2 POC ABG pO2 Sodium 149 H Potassium Chloride 109.4 H Carbon Dioxide BUN 51 H Creatinine 3.2 H Glucose 58 L POC Glucose Lactic Acid 7.60 H* Calcium 7.8 L Phosphorus Magnesium 1.60 L AST 75 H Total Creatine Kinase 1499 H Troponin T 0.109 H* Total Protein 5.2 L Albumin 1.7 L Prealbumin LDL Cholesterol Direct 22 L HDL Cholesterol 31 L TSH PTH Intact Urine Creatinine Urine Total Protein Salicylates Acetaminophen 03/19/19 03/19/19 03/19/19 12:59 12:59 14:48 WBC RBC Hgb Hct MCV MCH Plt Count Seg Neuts % (Manual) Lymphocytes % (Manual) Monocytes % (Manual) Nucleated RBC % Seg Neutrophils # Man Lymphocytes # (Manual) PT INR APTT POC ABG pH POC ABG pCO2 POC ABG pO2 Sodium Potassium Chloride Carbon Dioxide BUN Creatinine Glucose POC Glucose 44 L Lactic Acid Calcium Phosphorus Magnesium AST Total Creatine Kinase Troponin T Total Protein Albumin Prealbumin LDL Cholesterol Direct HDL Cholesterol TSH PTH Intact Urine Creatinine Urine Total Protein Salicylates < 0.3 L Acetaminophen < 5.0 L 03/19/19 03/19/19 03/19/19 15:33 15:52 16:26 WBC RBC Hgb Hct MCV MCH Plt Count Seg Neuts % (Manual) Lymphocytes % (Manual) Monocytes % (Manual) Nucleated RBC % Seg Neutrophils # Man Lymphocytes # (Manual) PT INR APTT POC ABG pH POC ABG pCO2 POC ABG pO2 Sodium Potassium Chloride Carbon Dioxide BUN Creatinine Glucose POC Glucose 228 H 231 H Lactic Acid Calcium Phosphorus Magnesium AST Total Creatine Kinase Troponin T Total Protein Albumin Prealbumin LDL Cholesterol Direct HDL Cholesterol TSH PTH Intact Urine Creatinine 31.8 H Urine Total Protein Salicylates Acetaminophen 03/19/19 03/19/19 03/19/19 16:38 17:14 18:43 WBC RBC Hgb Hct MCV MCH Plt Count Seg Neuts % (Manual) Lymphocytes % (Manual) Monocytes % (Manual) Nucleated RBC % Seg Neutrophils # Man Lymphocytes # (Manual) PT INR APTT POC ABG pH 7.196 L POC ABG pCO2 30.8 L POC ABG pO2 Sodium Potassium Chloride Carbon Dioxide BUN Creatinine Glucose POC Glucose 235 H Lactic Acid 8.10 H* Calcium Phosphorus Magnesium AST Total Creatine Kinase Troponin T Total Protein Albumin Prealbumin LDL Cholesterol Direct HDL Cholesterol TSH PTH Intact Urine Creatinine Urine Total Protein Salicylates Acetaminophen 03/19/19 03/19/19 03/19/19 18:52 20:00 20:56 WBC RBC Hgb Hct MCV MCH Plt Count Seg Neuts % (Manual) Lymphocytes % (Manual) Monocytes % (Manual) Nucleated RBC % Seg Neutrophils # Man Lymphocytes # (Manual) PT INR APTT POC ABG pH POC ABG pCO2 POC ABG pO2 Sodium Potassium Chloride Carbon Dioxide BUN Creatinine Glucose POC Glucose 240 H 117 H Lactic Acid 5.90 H* Calcium Phosphorus Magnesium AST Total Creatine Kinase Troponin T Total Protein Albumin Prealbumin LDL Cholesterol Direct HDL Cholesterol TSH PTH Intact Urine Creatinine Urine Total Protein Salicylates Acetaminophen 03/19/19 03/19/19 03/19/19 21:19 22:07 23:00 WBC RBC Hgb Hct MCV MCH Plt Count Seg Neuts % (Manual) Lymphocytes % (Manual) Monocytes % (Manual) Nucleated RBC % Seg Neutrophils # Man Lymphocytes # (Manual) PT INR APTT POC ABG pH POC ABG pCO2 POC ABG pO2 Sodium Potassium Chloride Carbon Dioxide BUN Creatinine Glucose POC Glucose < 40 L 136 H Lactic Acid 6.10 H* Calcium Phosphorus Magnesium AST Total Creatine Kinase Troponin T Total Protein Albumin Prealbumin LDL Cholesterol Direct HDL Cholesterol TSH PTH Intact Urine Creatinine Urine Total Protein Salicylates Acetaminophen 03/20/19 03/20/19 03/20/19 00:05 01:38 02:23 WBC RBC Hgb Hct MCV MCH Plt Count Seg Neuts % (Manual) Lymphocytes % (Manual) Monocytes % (Manual) Nucleated RBC % Seg Neutrophils # Man Lymphocytes # (Manual) PT INR APTT POC ABG pH POC ABG pCO2 POC ABG pO2 Sodium Potassium Chloride Carbon Dioxide BUN Creatinine Glucose POC Glucose 68 L 153 H 127 H Lactic Acid Calcium Phosphorus Magnesium AST Total Creatine Kinase Troponin T Total Protein Albumin Prealbumin LDL Cholesterol Direct HDL Cholesterol TSH PTH Intact Urine Creatinine Urine Total Protein Salicylates Acetaminophen 03/20/19 03/20/19 03/20/19 03:12 04:31 04:41 WBC RBC Hgb Hct MCV MCH Plt Count Seg Neuts % (Manual) Lymphocytes % (Manual) Monocytes % (Manual) Nucleated RBC % Seg Neutrophils # Man Lymphocytes # (Manual) PT INR APTT POC ABG pH POC ABG pCO2 POC ABG pO2 53 L 65 L Sodium Potassium Chloride Carbon Dioxide BUN Creatinine Glucose POC Glucose 109 H Lactic Acid Calcium Phosphorus Magnesium AST Total Creatine Kinase Troponin T Total Protein Albumin Prealbumin LDL Cholesterol Direct HDL Cholesterol TSH PTH Intact Urine Creatinine Urine Total Protein Salicylates Acetaminophen 03/20/19 03/20/19 03/20/19 05:50 07:29 08:14 WBC RBC Hgb Hct MCV MCH Plt Count Seg Neuts % (Manual) Lymphocytes % (Manual) Monocytes % (Manual) Nucleated RBC % Seg Neutrophils # Man Lymphocytes # (Manual) PT INR APTT POC ABG pH POC ABG pCO2 POC ABG pO2 Sodium Potassium Chloride Carbon Dioxide BUN Creatinine Glucose 61 L POC Glucose 47 L 153 H Lactic Acid Calcium Phosphorus Magnesium 1.60 L AST Total Creatine Kinase Troponin T Total Protein Albumin Prealbumin LDL Cholesterol Direct HDL Cholesterol TSH PTH Intact Urine Creatinine Urine Total Protein Salicylates Acetaminophen 03/20/19 03/20/19 03/20/19 08:23 08:23 10:59 WBC RBC Hgb Hct MCV MCH Plt Count Seg Neuts % (Manual) Lymphocytes % (Manual) Monocytes % (Manual) Nucleated RBC % Seg Neutrophils # Man Lymphocytes # (Manual) PT INR APTT POC ABG pH POC ABG pCO2 POC ABG pO2 Sodium Potassium Chloride Carbon Dioxide BUN Creatinine Glucose 101 H POC Glucose 233 H Lactic Acid 9.70 H* Calcium Phosphorus Magnesium AST Total Creatine Kinase Troponin T Total Protein Albumin Prealbumin 0.052 L LDL Cholesterol Direct HDL Cholesterol TSH PTH Intact Urine Creatinine Urine Total Protein Salicylates Acetaminophen 03/20/19 03/20/19 03/20/19 12:23 16:10 16:40 WBC RBC Hgb Hct MCV MCH Plt Count Seg Neuts % (Manual) Lymphocytes % (Manual) Monocytes % (Manual) Nucleated RBC % Seg Neutrophils # Man Lymphocytes # (Manual) PT INR APTT POC ABG pH POC ABG pCO2 POC ABG pO2 Sodium Potassium Chloride Carbon Dioxide BUN Creatinine Glucose POC Glucose 135 H 171 H Lactic Acid Calcium Phosphorus Magnesium AST Total Creatine Kinase Troponin T Total Protein Albumin Prealbumin LDL Cholesterol Direct HDL Cholesterol TSH PTH Intact Urine Creatinine 53.7 H Urine Total Protein 36 H Salicylates Acetaminophen 03/20/19 03/20/19 03/20/19 16:57 17:38 17:50 WBC RBC Hgb Hct MCV MCH Plt Count Seg Neuts % (Manual) Lymphocytes % (Manual) Monocytes % (Manual) Nucleated RBC % Seg Neutrophils # Man Lymphocytes # (Manual) PT INR APTT POC ABG pH POC ABG pCO2 POC ABG pO2 Sodium Potassium Chloride Carbon Dioxide BUN Creatinine Glucose POC Glucose 152 H 147 H Lactic Acid 9.90 H* Calcium Phosphorus Magnesium AST Total Creatine Kinase Troponin T Total Protein Albumin Prealbumin LDL Cholesterol Direct HDL Cholesterol TSH PTH Intact Urine Creatinine Urine Total Protein Salicylates Acetaminophen 03/20/19 03/20/19 03/20/19 17:50 17:50 17:50 WBC RBC 2.92 L Hgb 10.0 L Hct 29.3 L MCV 100 H MCH 34 H Plt Count 81 L Seg Neuts % (Manual) Lymphocytes % (Manual) Monocytes % (Manual) Nucleated RBC % Seg Neutrophils # Man Lymphocytes # (Manual) PT INR APTT POC ABG pH POC ABG pCO2 POC ABG pO2 Sodium Potassium 2.8 L* D Chloride Carbon Dioxide BUN 30 H Creatinine 1.6 H Glucose 107 H POC Glucose Lactic Acid Calcium 6.9 L Phosphorus 2.00 L Magnesium AST Total Creatine Kinase Troponin T Total Protein Albumin Prealbumin LDL Cholesterol Direct HDL Cholesterol TSH PTH Intact 171.6 H Urine Creatinine Urine Total Protein Salicylates Acetaminophen 03/20/19 03/21/19 03/21/19 21:12 00:30 04:12 WBC RBC Hgb Hct MCV MCH Plt Count Seg Neuts % (Manual) Lymphocytes % (Manual) Monocytes % (Manual) Nucleated RBC % Seg Neutrophils # Man Lymphocytes # (Manual) PT INR APTT POC ABG pH POC ABG pCO2 POC ABG pO2 Sodium Potassium 3.0 L Chloride Carbon Dioxide 21 L BUN Creatinine 1.4 H Glucose 103 H POC Glucose Lactic Acid 8.70 H* 9.40 H* Calcium 6.8 L Phosphorus Magnesium AST Total Creatine Kinase Troponin T Total Protein Albumin Prealbumin LDL Cholesterol Direct HDL Cholesterol TSH PTH Intact Urine Creatinine Urine Total Protein Salicylates Acetaminophen 03/21/19 03/21/19 03/21/19 04:12 04:12 04:43 WBC RBC 2.84 L Hgb 9.5 L Hct 28.3 L MCV 100 H MCH 33 H Plt Count 79 L Seg Neuts % (Manual) Lymphocytes % (Manual) Monocytes % (Manual) Nucleated RBC % Seg Neutrophils # Man Lymphocytes # (Manual) PT INR APTT POC ABG pH 7.456 H POC ABG pCO2 POC ABG pO2 Sodium Potassium Chloride Carbon Dioxide BUN Creatinine Glucose POC Glucose Lactic Acid 9.50 H* Calcium Phosphorus Magnesium AST Total Creatine Kinase Troponin T Total Protein Albumin Prealbumin LDL Cholesterol Direct HDL Cholesterol TSH PTH Intact Urine Creatinine Urine Total Protein Salicylates Acetaminophen 03/21/19 03/21/19 03/21/19 08:06 08:08 10:11 WBC RBC Hgb Hct MCV MCH Plt Count Seg Neuts % (Manual) Lymphocytes % (Manual) Monocytes % (Manual) Nucleated RBC % Seg Neutrophils # Man Lymphocytes # (Manual) PT INR APTT POC ABG pH POC ABG pCO2 POC ABG pO2 Sodium Potassium 3.5 L Chloride Carbon Dioxide BUN 22 H Creatinine 1.3 H Glucose POC Glucose 64 L Lactic Acid 8.00 H* Calcium 7.0 L Phosphorus Magnesium AST Total Creatine Kinase Troponin T Total Protein Albumin Prealbumin LDL Cholesterol Direct HDL Cholesterol TSH PTH Intact Urine Creatinine Urine Total Protein Salicylates Acetaminophen 03/21/19 03/21/19 03/21/19 11:17 12:17 13:37 WBC RBC Hgb Hct MCV MCH Plt Count Seg Neuts % (Manual) Lymphocytes % (Manual) Monocytes % (Manual) Nucleated RBC % Seg Neutrophils # Man Lymphocytes # (Manual) PT INR APTT POC ABG pH POC ABG pCO2 POC ABG pO2 Sodium Potassium Chloride Carbon Dioxide BUN Creatinine Glucose POC Glucose 173 H 110 H Lactic Acid Calcium Phosphorus Magnesium AST Total Creatine Kinase Troponin T 0.033 H D Total Protein Albumin Prealbumin LDL Cholesterol Direct HDL Cholesterol TSH PTH Intact Urine Creatinine Urine Total Protein Salicylates Acetaminophen 03/21/19 03/21/19 03/21/19 13:37 17:21 18:52 WBC RBC Hgb Hct MCV MCH Plt Count Seg Neuts % (Manual) Lymphocytes % (Manual) Monocytes % (Manual) Nucleated RBC % Seg Neutrophils # Man Lymphocytes # (Manual) PT INR APTT POC ABG pH POC ABG pCO2 POC ABG pO2 Sodium Potassium Chloride Carbon Dioxide BUN Creatinine Glucose POC Glucose 130 H 107 H Lactic Acid 6.80 H* Calcium Phosphorus Magnesium AST Total Creatine Kinase Troponin T Total Protein Albumin Prealbumin LDL Cholesterol Direct HDL Cholesterol TSH PTH Intact Urine Creatinine Urine Total Protein Salicylates Acetaminophen 03/21/19 03/21/19 03/21/19 20:20 22:08 23:05 WBC RBC Hgb Hct MCV MCH Plt Count Seg Neuts % (Manual) Lymphocytes % (Manual) Monocytes % (Manual) Nucleated RBC % Seg Neutrophils # Man Lymphocytes # (Manual) PT INR APTT POC ABG pH POC ABG pCO2 POC ABG pO2 Sodium Potassium Chloride Carbon Dioxide BUN Creatinine Glucose POC Glucose 106 H 106 H Lactic Acid Calcium Phosphorus Magnesium AST Total Creatine Kinase Troponin T 0.036 H Total Protein Albumin Prealbumin LDL Cholesterol Direct HDL Cholesterol TSH PTH Intact Urine Creatinine Urine Total Protein Salicylates Acetaminophen 03/21/19 03/21/19 03/22/19 23:05 23:05 00:14 WBC RBC Hgb Hct MCV MCH Plt Count Seg Neuts % (Manual) Lymphocytes % (Manual) Monocytes % (Manual) Nucleated RBC % Seg Neutrophils # Man Lymphocytes # (Manual) PT INR APTT POC ABG pH POC ABG pCO2 POC ABG pO2 Sodium Potassium Chloride Carbon Dioxide BUN Creatinine Glucose POC Glucose 122 H 109 H Lactic Acid 7.00 H* Calcium Phosphorus Magnesium AST Total Creatine Kinase Troponin T Total Protein Albumin Prealbumin LDL Cholesterol Direct HDL Cholesterol TSH PTH Intact Urine Creatinine Urine Total Protein Salicylates Acetaminophen 03/22/19 03/22/19 03/22/19 03:10 04:02 05:11 WBC RBC Hgb Hct MCV MCH Plt Count Seg Neuts % (Manual) Lymphocytes % (Manual) Monocytes % (Manual) Nucleated RBC % Seg Neutrophils # Man Lymphocytes # (Manual) PT INR APTT POC ABG pH 7.487 H POC ABG pCO2 POC ABG pO2 67 L Sodium Potassium Chloride Carbon Dioxide BUN Creatinine Glucose POC Glucose 114 H 112 H Lactic Acid Calcium Phosphorus Magnesium AST Total Creatine Kinase Troponin T Total Protein Albumin Prealbumin LDL Cholesterol Direct HDL Cholesterol TSH PTH Intact Urine Creatinine Urine Total Protein Salicylates Acetaminophen 03/22/19 03/22/19 03/22/19 06:06 06:10 06:10 WBC RBC Hgb Hct MCV MCH Plt Count Seg Neuts % (Manual) Lymphocytes % (Manual) Monocytes % (Manual) Nucleated RBC % Seg Neutrophils # Man Lymphocytes # (Manual) PT INR APTT POC ABG pH POC ABG pCO2 POC ABG pO2 Sodium Potassium 3.0 L Chloride Carbon Dioxide BUN Creatinine Glucose POC Glucose 115 H Lactic Acid Calcium 7.0 L Phosphorus Magnesium AST Total Creatine Kinase Troponin T 0.036 H Total Protein Albumin Prealbumin LDL Cholesterol Direct HDL Cholesterol TSH PTH Intact Urine Creatinine Urine Total Protein Salicylates Acetaminophen 03/22/19 03/22/19 03/22/19 06:10 06:10 11:59 WBC RBC Hgb Hct MCV MCH Plt Count Seg Neuts % (Manual) Lymphocytes % (Manual) Monocytes % (Manual) Nucleated RBC % Seg Neutrophils # Man Lymphocytes # (Manual) PT INR APTT POC ABG pH POC ABG pCO2 POC ABG pO2 Sodium Potassium Chloride Carbon Dioxide BUN Creatinine Glucose POC Glucose Lactic Acid 4.80 H* 3.80 H* Calcium Phosphorus Magnesium AST Total Creatine Kinase Troponin T Total Protein Albumin Prealbumin LDL Cholesterol Direct HDL Cholesterol TSH 7.810 H PTH Intact Urine Creatinine Urine Total Protein Salicylates Acetaminophen 03/22/19 03/22/19 03/22/19 13:45 13:45 13:45 WBC RBC Hgb 8.3 L Hct 24.5 L MCV MCH Plt Count 56 L Seg Neuts % (Manual) Lymphocytes % (Manual) Monocytes % (Manual) Nucleated RBC % Seg Neutrophils # Man Lymphocytes # (Manual) PT 21.4 H INR 1.90 H APTT 43.2 H POC ABG pH POC ABG pCO2 POC ABG pO2 Sodium Potassium Chloride Carbon Dioxide BUN Creatinine Glucose POC Glucose Lactic Acid 3.50 H* Calcium Phosphorus Magnesium AST Total Creatine Kinase Troponin T Total Protein Albumin Prealbumin LDL Cholesterol Direct HDL Cholesterol TSH PTH Intact Urine Creatinine Urine Total Protein Salicylates Acetaminophen 03/22/19 03/23/19 03/23/19 22:20 01:06 04:37 WBC RBC Hgb Hct MCV MCH Plt Count Seg Neuts % (Manual) Lymphocytes % (Manual) Monocytes % (Manual) Nucleated RBC % Seg Neutrophils # Man Lymphocytes # (Manual) PT INR APTT POC ABG pH POC ABG pCO2 34.8 L POC ABG pO2 Sodium Potassium Chloride Carbon Dioxide BUN Creatinine Glucose POC Glucose Lactic Acid 3.60 H* 2.70 H* Calcium Phosphorus Magnesium AST Total Creatine Kinase Troponin T Total Protein Albumin Prealbumin LDL Cholesterol Direct HDL Cholesterol TSH PTH Intact Urine Creatinine Urine Total Protein Salicylates Acetaminophen 03/23/19 03/23/19 03/23/19 04:50 04:50 05:25 WBC 12.1 H RBC 2.36 L Hgb 7.7 L Hct 22.9 L MCV MCH 33 H Plt Count 37 L Seg Neuts % (Manual) 83.0 H Lymphocytes % (Manual) 8.0 L Monocytes % (Manual) Nucleated RBC % Seg Neutrophils # Man 10.0 H Lymphocytes # (Manual) 1.0 L PT INR APTT POC ABG pH POC ABG pCO2 33.3 L POC ABG pO2 Sodium Potassium 3.5 L Chloride 108.3 H Carbon Dioxide BUN Creatinine Glucose POC Glucose Lactic Acid Calcium 7.3 L Phosphorus Magnesium AST Total Creatine Kinase Troponin T Total Protein Albumin Prealbumin LDL Cholesterol Direct HDL Cholesterol TSH PTH Intact Urine Creatinine Urine Total Protein Salicylates Acetaminophen 03/23/19 05:53 WBC RBC Hgb Hct MCV MCH Plt Count Seg Neuts % (Manual) Lymphocytes % (Manual) Monocytes % (Manual) Nucleated RBC % Seg Neutrophils # Man Lymphocytes # (Manual) PT INR APTT POC ABG pH POC ABG pCO2 POC ABG pO2 Sodium Potassium Chloride Carbon Dioxide BUN Creatinine Glucose POC Glucose 68 L Lactic Acid Calcium Phosphorus Magnesium AST Total Creatine Kinase Troponin T Total Protein Albumin Prealbumin LDL Cholesterol Direct HDL Cholesterol TSH PTH Intact Urine Creatinine Urine Total Protein Salicylates Acetaminophen Chest x-ray: image reviewed (bilat patchy infil unch ET ok ) Additional Studies: 03/23 Lactate levels have gone down
--- NOTE | 2019-03-23 11:16 | Progress Note ---
Assessment and Plan Assessment: Acute Hypoxic Respiratory Failure Acute Kidney Injury possibly prerenal, ischemic ATN from hypotension, questionable whether underlying CKD process, r/o obstruction: Metabolic Acidosis Sepsis secondary to bilateral PNA Possible RUL Aspiration PNA Hypotension Hypomagnesemia Hypernatremia Elevated Troponin Plan: - Renal function reviewed. Serum creatinine 0.7, yesterday's was 0.9, non- oliguric. - On D5/NS at 50 ml/hr, monitor volume status - S/P Levaphed drip for blood pressure support - Renal US showed- Mild echogenicity bilaterally. No Hydronephrosis. - Renally dose medications - Adam Catheter: Yes - Obtain daily weights - Continue to monitor renal function Subjective Date of service: 03/23/19 Principal diagnosis: resp fail sepsis Interval history: Patient seen lying in bed. Patient is intubated. No family at bedside. Objective - Vital Signs Vital signs: Vital Signs - 12hr 03/22/19 03/22/19 03/22/19 23:15 23:30 23:46 Temperature Pulse Rate 133 H 138 H 141 H Pulse Rate [ Anterior Bilateral Throughout] Pulse Rate [ Right Dorsalis Pedis] Respiratory 19 22 15 Rate Respiratory Rate [Anterior Bilateral Throughout] Blood Pressure 128/60 115/73 101/71 O2 Sat by Pulse 99 98 99 Oximetry 03/23/19 03/23/19 03/23/19 00:00 00:10 00:15 Temperature 100.6 F H Pulse Rate 124 H 128 H 133 H Pulse Rate [ Anterior Bilateral Throughout] Pulse Rate [ 122 H Right Dorsalis Pedis] Respiratory 17 24 Rate Respiratory Rate [Anterior Bilateral Throughout] Blood Pressure 101/71 105/68 122/60 O2 Sat by Pulse 100 100 99 Oximetry 03/23/19 03/23/19 03/23/19 00:30 00:45 01:00 Temperature Pulse Rate 129 H 127 H 126 H Pulse Rate [ Anterior Bilateral Throughout] Pulse Rate [ Right Dorsalis Pedis] Respiratory 19 18 16 Rate Respiratory Rate [Anterior Bilateral Throughout] Blood Pressure 115/55 102/63 102/58 O2 Sat by Pulse 99 100 99 Oximetry 03/23/19 03/23/19 03/23/19 01:15 01:30 01:35 Temperature Pulse Rate 127 H 130 H Pulse Rate [ 126 H Anterior Bilateral Throughout] Pulse Rate [ Right Dorsalis Pedis] Respiratory 16 20 Rate Respiratory 18 Rate [Anterior Bilateral Throughout] Blood Pressure 112/59 100/64 O2 Sat by Pulse 99 98 Oximetry 03/23/19 03/23/19 03/23/19 01:45 02:00 02:16 Temperature Pulse Rate 127 H 128 H 131 H Pulse Rate [ Anterior Bilateral Throughout] Pulse Rate [ Right Dorsalis Pedis] Respiratory 16 21 19 Rate Respiratory Rate [Anterior Bilateral Throughout] Blood Pressure 100/57 96/53 97/58 O2 Sat by Pulse 98 98 99 Oximetry 03/23/19 03/23/19 03/23/19 02:30 02:45 03:00 Temperature Pulse Rate 125 H 122 H 124 H Pulse Rate [ Anterior Bilateral Throughout] Pulse Rate [ Right Dorsalis Pedis] Respiratory 17 14 21 Rate Respiratory Rate [Anterior Bilateral Throughout] Blood Pressure 109/58 90/48 110/60 O2 Sat by Pulse 99 99 Oximetry 03/23/19 03/23/19 03/23/19 03:12 03:15 03:30 Temperature Pulse Rate 124 H 129 H 124 H Pulse Rate [ Anterior Bilateral Throughout] Pulse Rate [ Right Dorsalis Pedis] Respiratory 23 18 Rate Respiratory Rate [Anterior Bilateral Throughout] Blood Pressure 110/60 105/57 103/60 O2 Sat by Pulse 100 99 99 Oximetry 03/23/19 03/23/19 03/23/19 03:45 03:47 04:00 Temperature 100.5 F H Pulse Rate 129 H 126 H Pulse Rate [ Anterior Bilateral Throughout] Pulse Rate [ 132 H Right Dorsalis Pedis] Respiratory 24 25 H Rate Respiratory Rate [Anterior Bilateral Throughout] Blood Pressure 98/67 98/67 O2 Sat by Pulse 99 100 Oximetry 03/23/19 03/23/19 03/23/19 04:15 04:30 04:45 Temperature Pulse Rate 124 H 126 H 124 H Pulse Rate [ Anterior Bilateral Throughout] Pulse Rate [ Right Dorsalis Pedis] Respiratory 17 19 16 Rate Respiratory Rate [Anterior Bilateral Throughout] Blood Pressure 101/59 118/61 115/63 O2 Sat by Pulse 100 100 Oximetry 03/23/19 03/23/19 03/23/19 05:00 05:15 05:30 Temperature Pulse Rate 122 H 122 H 123 H Pulse Rate [ Anterior Bilateral Throughout] Pulse Rate [ Right Dorsalis Pedis] Respiratory 19 16 16 Rate Respiratory Rate [Anterior Bilateral Throughout] Blood Pressure 120/61 119/57 104/65 O2 Sat by Pulse 100 100 100 Oximetry 03/23/19 03/23/19 03/23/19 05:45 06:00 06:15 Temperature Pulse Rate 122 H 124 H 122 H Pulse Rate [ Anterior Bilateral Throughout] Pulse Rate [ Right Dorsalis Pedis] Respiratory 20 25 H 15 Rate Respiratory Rate [Anterior Bilateral Throughout] Blood Pressure 112/67 117/62 121/58 O2 Sat by Pulse 100 100 100 Oximetry 03/23/19 03/23/19 03/23/19 06:30 06:45 07:00 Temperature Pulse Rate 123 H 123 H 126 H Pulse Rate [ Anterior Bilateral Throughout] Pulse Rate [ Right Dorsalis Pedis] Respiratory 24 18 14 Rate Respiratory Rate [Anterior Bilateral Throughout] Blood Pressure 126/69 126/62 110/56 O2 Sat by Pulse 100 100 100 Oximetry 03/23/19 03/23/19 03/23/19 07:15 07:30 07:45 Temperature Pulse Rate 122 H 123 H 121 H Pulse Rate [ Anterior Bilateral Throughout] Pulse Rate [ Right Dorsalis Pedis] Respiratory 17 15 18 Rate Respiratory Rate [Anterior Bilateral Throughout] Blood Pressure 116/61 116/60 122/57 O2 Sat by Pulse 100 100 100 Oximetry 03/23/19 03/23/19 03/23/19 08:00 08:15 08:30 Temperature 99.4 F Pulse Rate 123 H 129 H 127 H Pulse Rate [ Anterior Bilateral Throughout] Pulse Rate [ Right Dorsalis Pedis] Respiratory 17 23 19 Rate Respiratory Rate [Anterior Bilateral Throughout] Blood Pressure 123/63 130/68 124/63 O2 Sat by Pulse 100 Oximetry 03/23/19 03/23/19 03/23/19 08:45 09:00 09:15 Temperature Pulse Rate 127 H 127 H 130 H Pulse Rate [ Anterior Bilateral Throughout] Pulse Rate [ Right Dorsalis Pedis] Respiratory 17 21 25 H Rate Respiratory Rate [Anterior Bilateral Throughout] Blood Pressure 111/65 123/62 116/70 O2 Sat by Pulse Oximetry 03/23/19 03/23/19 03/23/19 09:23 09:30 10:36 Temperature Pulse Rate 128 H 125 H 147 H Pulse Rate [ Anterior Bilateral Throughout] Pulse Rate [ Right Dorsalis Pedis] Respiratory 7 L 19 Rate Respiratory Rate [Anterior Bilateral Throughout] Blood Pressure 116/66 116/66 113/62 O2 Sat by Pulse Oximetry - General Appearance General appearance: sedated on ventilator, intubated EENT: ATNC Neck: no JVD, supple Respiratory: Present: Decreased Breath Sounds, Other (Intubated) Cardiology: S1S2 Gastrointestinal: normoactive bowel sounds Integumentary: warm and dry Neurologic: alert and oriented x3 Musculoskeletal: joint swelling, other (positive edema BLE) - Lab 03/23/19 04:50 03/23/19 04:50 Most recent lab results Calcium 7.3 mg/dL (8.4-10.2) L 03/23/19 04:50 Phosphorus 2.00 mg/dL (2.5-4.5) L 03/20/19 17:50 Magnesium 1.70 mg/dL (1.7-2.3) 03/21/19 04:12 53.7 mg/dL (0.1-20.0) H 03/20/19 16:40 116 mmol/L 03/20/19 16:40 36 mg/dL (5-11.8) H 03/20/19 16:40 Medications & Allergies - Medications Allergies/Adverse Reactions: Allergies No Known Allergies Allergy (Unverified 03/19/19 13:11) Home Medications: Home Medications Medication Instructions Recorded Confirmed Last Taken Type Aspirin EC 81 mg PO DAILY 03/20/19 03/20/19 Unknown History Divalproex Sodium 375 mg PO Q8H PRN 03/20/19 03/20/19 Unknown History Metoprolol [Lopressor TAB] 50 mg PO BID 03/20/19 03/20/19 Unknown History Sennosides/Docusate Sodium [Senna 8.6 mg PO BID PRN 03/20/19 03/20/19 Unknown History Plus Tablet] levETIRAcetam [Keppra TAB] 500 mg PO BID 03/20/19 03/20/19 Unknown History Active Medications: Generic Name Dose Route Start Last Admin Trade Name Freq PRN Reason Stop Dose Admin Albuterol 2.5 mg 03/19/19 23:58 Proventil IH Q3HRT PRN Shortness Of Breath Albuterol/Ipratropium 1 ampul 03/20/19 02:00 03/23/19 09:21 Duoneb *Not For Prn Use* IH 1 ampul Q6HRT YUSUF Administration Amiodarone HCl 200 mg 03/22/19 22:00 03/23/19 10:37 Cordarone PO 200 mg BID YUSUF Administration Lipase/Protease/Amylase 1 each 03/22/19 16:03 Pancretobi Sargent 10,500 Unit FEEDTUBE PRN PRN For Clogged Feeding Tube Aspirin 81 mg 03/21/19 10:00 03/23/19 10:37 Baby Aspirin PO 81 mg DAILY YUSUF Administration Budesonide 0.5 mg 03/19/19 23:45 03/23/19 09:22 Pulmicort IH 0.5 mg Q12HRT YUSUF Administration Dextrose 50 ml 03/19/19 23:58 03/21/19 16:29 D50w (25gm) Syringe IV 50 ml PRN PRN Administration Hypoglycemia Digoxin 0.125 mg 03/23/19 10:00 03/23/19 10:36 Lanoxin IV 03/29/19 10:01 0.125 mg Q48HR YUSUF Administration Famotidine 20 mg 03/22/19 10:00 03/23/19 10:37 Pepcid PO 20 mg BID YUSUF Administration Fentanyl 50 mcg 03/19/19 12:45 03/19/19 13:26 Sublimaze IV 50 mcg Q10MIN PRN Administration ANALGESIA Hydromorphone HCl 0.5 mg 03/19/19 23:58 Dilaudid IV Q3H PRN Pain , Severe (7-10) Hydrophilic Ointment 1 applic 03/19/19 12:45 Vaseline Lip Therapy TP Q2HR PRN Dry Lips Fentanyl Citrate 2,000 mcg in 100 mls @ 2.835 mls/hr 03/19/19 14:00 03/21/19 11:33 Fentanyl Drip Premix IV 0 mcg/kg/hr TITR YUSUF 0 mls/hr Titration Protocol 1 MCG/KG/HR Norepinephrine 4 mg in 250 mls @ 7.5 mls/hr 03/20/19 11:00 03/21/19 18:00 Levophed Drip 4 Mg/Ns 250 Ml IV 0 mcg/min TITR YUSUF 0 mls/hr Titration Protocol 2 MCG/MIN Vasopressin 20 unit/ Sodium 101 mls @ 9.09 mls/hr 03/20/19 11:00 Chloride IV TITR YUSUF Protocol 0.03 UNITS/MIN Vancomycin HCl 1 gm in 250 mls @ 167.007 mls/hr 03/21/19 10:00 03/23/19 10:35 Vancomycin/Ns 1 Gm/250 Ml IV 167.007 mls/hr Q24HR YUSUF Administration Levetiracetam 750 mg/ Dextrose 107.5 mls @ 400 mls/hr 03/21/19 11:00 03/23/19 10:35 IV 400 mls/hr Q12HR YUSUF Administration Dextrose/Sodium Chloride 1,000 mls @ 50 mls/hr 03/21/19 14:00 03/23/19 07:07 D5ns IV 100 mls/hr DIRECT YUSUF Administration Metronidazole 500 mg in 100 mls @ 100 mls/hr 03/22/19 14:00 03/23/19 05:26 Flagyl 500 Mg/100 Ml IV 100 mls/hr Q8HR YUSUF Administration Cefepime HCl 2 gm in 100 mls @ 200 mls/hr 03/22/19 10:00 03/23/19 10:34 Maxipime/Ns 2 Gm/100 Ml IV 200 mls/hr Q12HR YUSUF Administration Protocol Insulin Human Lispro 0 unit 03/20/19 00:00 03/23/19 05:46 Humalog SUB-Q Not Given Q6HR [facility] Protocol Metoclopramide HCl 5 mg 03/20/19 00:12 Reglan IV Q6H PRN Nausea And Vomiting Multi-Ingred Cream/Lotion/Oil/Oint 1 applic 03/19/19 12:45 Artificial Tears Ophth Oint OU Q4HR PRN Dry Eye(s) Ondansetron HCl 4 mg 03/19/19 23:58 Zofran IV Q8H PRN Nausea And Vomiting Promethazine HCl 25 mg 03/19/19 23:58 Phenergan AK Q6H PRN N/V IF NPO AND NO IV ACCESS Simple Syrup 15 ml 03/22/19 16:03 03/23/19 07:21 Simple Syrup FEEDTUBE 15 ml PRN PRN Administration Hypoglycemia Simple Syrup 30 ml 03/22/19 16:03 Simple Syrup FEEDTUBE PRN PRN Hypoglycemia Sodium Bicarbonate 325 mg 03/22/19 16:03 Sodium Bicarbonate FEEDTUBE PRN PRN For Clogged Feeding Tube Sodium Chloride 10 ml 03/20/19 10:00 03/23/19 10:37 Sodium Chloride Flush Syringe 10 Ml IV 10 ml BID YUSUF Administration Sodium Chloride 10 ml 03/19/19 23:58 Sodium Chloride Flush Syringe 10 Ml IV PRN PRN LINE FLUSH
--- NOTE | 2019-03-23 11:39 | Progress Note ---
Assessment and Plan Acute respiratory failure Sepsis Pneumonia Acute kidney failure -resolved Atrial fibrillation on amiodarone and digoxin Altered mental status Echocardiogram shows a normal left ventricular systolic function, ejection fraction 60-65%. Continue amiodarone and digoxin for atrial fibrillation. We will add low dose intravenous metoprolol as needed. Subjective Date of service: 03/23/19 Principal diagnosis: resp fail sepsis Interval history: Patient is alert with eyes open but remains intubated on the vent. Objective Vital Signs Temp Pulse Pulse Pulse Resp Resp BP 03/23/19 11:30 146 H 21 123/72 03/23/19 11:15 134 H 30 H 117/67 03/23/19 11:00 169 H 30 H 122/81 03/23/19 10:45 134 H 25 H 128/74 03/23/19 10:36 147 H 113/62 03/23/19 10:31 136 H 25 H 113/62 03/23/19 10:15 133 H 21 110/59 03/23/19 10:00 138 H 18 125/62 03/23/19 09:45 129 H 17 123/71 03/23/19 09:30 125 H 19 116/66 03/23/19 09:23 128 H 7 L 116/66 03/23/19 09:15 130 H 25 H 116/70 03/23/19 09:00 127 H 21 123/62 03/23/19 08:45 127 H 17 111/65 03/23/19 08:30 127 H 19 124/63 03/23/19 08:15 129 H 23 130/68 03/23/19 08:00 99.4 F 123 H 17 123/63 03/23/19 07:45 121 H 18 122/57 03/23/19 07:30 123 H 15 116/60 03/23/19 07:15 122 H 17 116/61 03/23/19 07:00 126 H 14 110/56 03/23/19 06:45 123 H 18 126/62 03/23/19 06:30 123 H 24 126/69 03/23/19 06:15 122 H 15 121/58 03/23/19 06:00 124 H 25 H 117/62 03/23/19 05:45 122 H 20 112/67 03/23/19 05:30 123 H 16 104/65 03/23/19 05:15 122 H 16 119/57 03/23/19 05:00 122 H 19 120/61 03/23/19 04:45 124 H 16 115/63 03/23/19 04:30 126 H 19 118/61 03/23/19 04:15 124 H 17 101/59 03/23/19 04:00 126 H 132 H 25 H 98/67 03/23/19 03:47 100.5 F H 03/23/19 03:45 129 H 24 98/67 03/23/19 03:30 124 H 18 103/60 03/23/19 03:15 129 H 23 105/57 03/23/19 03:12 124 H 110/60 03/23/19 03:00 124 H 21 110/60 03/23/19 02:45 122 H 14 90/48 03/23/19 02:30 125 H 17 109/58 03/23/19 02:16 131 H 19 97/58 03/23/19 02:00 128 H 21 96/53 03/23/19 01:45 127 H 16 100/57 03/23/19 01:35 126 H 18 03/23/19 01:30 130 H 20 100/64 03/23/19 01:15 127 H 16 112/59 03/23/19 01:00 126 H 16 102/58 03/23/19 00:45 127 H 18 102/63 03/23/19 00:30 129 H 19 115/55 03/23/19 00:15 133 H 24 122/60 03/23/19 00:10 128 H 105/68 03/23/19 00:00 100.6 F H 124 H 122 H 17 101/71 03/22/19 23:46 141 H 15 101/71 03/22/19 23:30 138 H 22 115/73 03/22/19 23:15 133 H 19 128/60 03/22/19 23:00 134 H 25 H 124/67 03/22/19 22:45 136 H 24 131/62 03/22/19 22:30 137 H 18 132/61 03/22/19 22:15 137 H 24 122/68 03/22/19 22:00 137 H 21 113/74 03/22/19 21:46 136 H 19 103/70 03/22/19 21:30 136 H 18 113/65 0719 21:15 134 H 20 120/74 03/22/19 21:00 100.1 F H 136 H 23 130/67 03/22/19 20:45 137 H 25 H 131/68 03/22/19 20:30 137 H 18 120/66 03/22/19 20:16 135 H 20 129/66 03/22/19 20:15 133 H 21 129/66 03/22/19 20:00 136 H 25 H 127/60 03/22/19 19:49 22 L 22 03/22/19 19:46 137 H 22 121/59 03/22/19 19:30 135 H 27 H 128/72 03/22/19 19:15 135 H 22 128/66 03/22/19 19:00 133 H 24 125/77 03/22/19 18:46 132 H 20 127/89 03/22/19 18:30 132 H 24 134/77 03/22/19 18:16 132 H 29 H 128/59 03/22/19 18:00 132/66 03/22/19 17:45 131 H 17 132/66 03/22/19 17:30 128 H 17 121/62 03/22/19 17:23 130 H 136/63 03/22/19 17:16 131 H 17 136/63 03/22/19 17:00 130 H 29 H 127/64 03/22/19 16:45 128 H 26 H 127/62 03/22/19 16:30 129 H 23 113/62 03/22/19 16:15 130 H 26 H 113/62 03/22/19 16:00 128 H 21 104/65 03/22/19 15:45 127 H 20 117/60 03/22/19 15:30 128 H 20 115/70 03/22/19 15:15 126 H 21 108/65 03/22/19 15:00 126 H 24 91/64 03/22/19 14:45 126 H 20 103/60 03/22/19 14:30 126 H 21 97/59 03/22/19 14:15 128 H 17 104/61 03/22/19 14:00 127 H 19 114/58 03/22/19 13:46 127 H 25 H 115/59 03/22/19 13:30 128 H 21 132/61 03/22/19 13:16 122 H 26 H 146/70 03/22/19 13:13 122 H 24 03/22/19 13:00 120 H 24 132/61 03/22/19 12:45 121 H 28 H 114/72 03/22/19 12:34 99.7 F H 03/22/19 12:30 119 H 20 113/59 03/22/19 12:15 119 H 16 123/69 03/22/19 12:00 119 H 22 113/59 03/22/19 11:45 116 H 22 109/68 Pulse Ox 03/23/19 11:30 96 03/23/19 11:15 94 03/23/19 11:00 95 03/23/19 10:45 96 03/23/19 10:36 03/23/19 10:31 03/23/19 10:15 94 03/23/19 10:00 94 03/23/19 09:45 94 03/23/19 09:30 03/23/19 09:23 03/23/19 09:15 03/23/19 09:00 03/23/19 08:45 03/23/19 08:30 03/23/19 08:15 03/23/19 08:00 100 03/23/19 07:45 100 03/23/19 07:30 100 03/23/19 07:15 100 03/23/19 07:00 100 03/23/19 06:45 100 03/23/19 06:30 100 03/23/19 06:15 100 03/23/19 06:00 100 03/23/19 05:45 100 03/23/19 05:30 100 03/23/19 05:15 100 03/23/19 05:00 100 03/23/19 04:45 100 03/23/19 04:30 100 03/23/19 04:15 03/23/19 04:00 100 03/23/19 03:47 03/23/19 03:45 99 03/23/19 03:30 99 03/23/19 03:15 99 03/23/19 03:12 100 03/23/19 03:00 99 03/23/19 02:45 03/23/19 02:30 99 03/23/19 02:16 99 03/23/19 02:00 98 03/23/19 01:45 98 03/23/19 01:35 03/23/19 01:30 98 03/23/19 01:15 99 03/23/19 01:00 99 03/23/19 00:45 100 03/23/19 00:30 99 03/23/19 00:15 99 03/23/19 00:10 100 03/23/19 00:00 100 03/22/19 23:46 99 03/22/19 23:30 98 03/22/19 23:15 99 03/22/19 23:00 98 03/22/19 22:45 99 03/22/19 22:30 98 03/22/19 22:15 99 03/22/19 22:00 97 03/22/19 21:46 100 03/22/19 21:30 99 03/22/19 21:15 99 03/22/19 21:00 98 03/22/19 20:45 98 03/22/19 20:30 96 03/22/19 20:16 98 03/22/19 20:15 97 03/22/19 20:00 99 03/22/19 19:49 03/22/19 19:46 95 03/22/19 19:30 96 03/22/19 19:15 97 03/22/19 19:00 97 03/22/19 18:46 03/22/19 18:30 03/22/19 18:16 03/22/19 18:00 98 03/22/19 17:45 97 03/22/19 17:30 99 03/22/19 17:23 100 03/22/19 17:16 97 03/22/19 17:00 99 03/22/19 16:45 99 03/22/19 16:30 99 03/22/19 16:15 99 03/22/19 16:00 99 03/22/19 15:45 99 03/22/19 15:30 98 03/22/19 15:15 99 03/22/19 15:00 98 03/22/19 14:45 99 03/22/19 14:30 98 03/22/19 14:15 100 03/22/19 14:00 98 03/22/19 13:46 98 03/22/19 13:30 97 03/22/19 13:16 93 03/22/19 13:13 03/22/19 13:00 98 03/22/19 12:45 99 03/22/19 12:34 03/22/19 12:30 98 03/22/19 12:15 97 03/22/19 12:00 98 03/22/19 11:45 98 - Physical Examination General: Other (intubated on the vent) Neck: Positive: neck supple Cardiac: Positive: Tachycardia - Labs and Meds Coagulation 03/22/19 Range/Units 13:45 PT 21.4 H (12.2-14.9) Sec. INR 1.90 H (0.87-1.13) APTT 43.2 H (24.2-36.6) Sec. CBC 03/22/19 03/23/19 Range/Units 13:45 04:50 WBC 12.1 H (4.5-11.0) K/mm3 RBC 2.36 L (3.65-5.03) M/mm3 Hgb 8.3 L 7.7 L (10.1-14.3) gm/dl Hct 24.5 L 22.9 L (30.3-42.9) % Plt Count 56 L 37 L (140-440) K/mm3 Comprehensive Metabolic Panel 03/23/19 Range/Units 04:50 Sodium 141 (137-145) mmol/L Potassium 3.5 L (3.6-5.0) mmol/L Chloride 108.3 H (98-107) mmol/L Carbon Dioxide 27 (22-30) mmol/L BUN 16 (7-17) mg/dL Creatinine 0.7 (0.7-1.2) mg/dL Glucose 91 (65-100) mg/dL Calcium 7.3 L (8.4-10.2) mg/dL - Imaging and Cardiology EKG: report reviewed (sinus tachycardia heart rate of 129/m)
--- NOTE | 2019-03-23 13:00 | Progress Note ---
Assessment and Plan Cultures/ID related labs: Blood culture 03/19/2019 no growth. Urine culture 03/19/2019 negative. Assessment: 73 y/o female with history of dementia admitted on 03/20/2019 brought by EMS due to altered mental status: 1) Sepsis with septic shock: shock resolved, still elevated lactate; source pneumonia. UA negative. Blood culture 03/19/2019 no growth. Urine culture 03/19/2019 negative. 2) Bilateral pneumonia: ? aspiration v/s CAP 3) Acute encephalopathy: CT head without contrast shows encephalomalacia in the entire right cerebral hemisphere, volume loss in the left cerebral hemisphere, no acute parenchymal lesion in the brain. 4) Acute respiratory failure: not better, intubated, on the vent. 5) HA: improved. Recommendations: continue cefepime, flagyl and vancomycin Guarded prognosis, was on home hospice f/u respiratory culture, if no MRSA growth, can d/c Vancomycin Isaias Quintanilla MD, FACP [facility] ([facility]) C: [phone] O: [phone] F: [phone] Subjective Date of service: 03/23/19 Principal diagnosis: resp fail sepsis Interval history: No fever. Remains intubated. Tachycardic. Off pressors. Failed SBT. Objective - Exam Narrative Exam: Physical Exam: Constitutional: awake, intubated Head, Ears, Nose: Normocephalic, atraumatic. External ears, nose normal Eyes: Conjunctivae/corneas clear. No icterus. No ptosis. Neck: Supple, no meningeal signs Oral: intubated Cardiovascular: S1, S2 normal. Respiratory: Good air entry, clear to auscultation bilaterally GI: Soft, non-tender; bowel sounds normal. No peritoneal signs Musculoskeletal: B/L pedal edema, foot drop and contracture Skin: No rash or abscess Hem/Lymphatic: No palpable cervical or supraclavicular nodes. No lymphangitis Psych: no agitation Neurological: intubated, on vent - Constitutional Vitals: Vital Signs Temp Pulse Resp BP Pulse Ox 99.4 F 146 H 21 123/72 96 03/23/19 08:00 03/23/19 11:30 03/23/19 11:30 03/23/19 11:30 03/23/19 11:30 Temperature -Last 24 Hours Temperature 99.4 F Temperature 100.5 F Temperature 100.6 F Temperature 100.1 F - Labs CBC & Chem 7: 03/23/19 04:50 03/23/19 04:50 Labs: Abnormal lab results 03/22/19 03/22/19 03/22/19 Range/Units 11:59 13:45 13:45 WBC (4.5-11.0) K/mm3 RBC (3.65-5.03) M/mm3 Hgb 8.3 L (10.1-14.3) gm/dl Hct 24.5 L (30.3-42.9) % MCH (28-32) pg Plt Count 56 L (140-440) K/mm3 Seg Neuts % (Manual) (40.0-70.0) % Lymphocytes % (Manual) (13.4-35.0) % Seg Neutrophils # Man (1.8-7.7) K/mm3 Lymphocytes # (Manual) (1.2-5.4) K/mm3 PT (12.2-14.9) Sec. INR (0.87-1.13) APTT (24.2-36.6) Sec. POC ABG pCO2 (35-45) Potassium (3.6-5.0) mmol/L Chloride (98-107) mmol/L POC Glucose (70-105) Lactic Acid 3.80 H* 3.50 H* (0.7-2.0) mmol/L Calcium (8.4-10.2) mg/dL 03/22/19 03/22/19 03/23/19 Range/Units 13:45 22:20 01:06 WBC (4.5-11.0) K/mm3 RBC (3.65-5.03) M/mm3 Hgb (10.1-14.3) gm/dl Hct (30.3-42.9) % MCH (28-32) pg Plt Count (140-440) K/mm3 Seg Neuts % (Manual) (40.0-70.0) % Lymphocytes % (Manual) (13.4-35.0) % Seg Neutrophils # Man (1.8-7.7) K/mm3 Lymphocytes # (Manual) (1.2-5.4) K/mm3 PT 21.4 H (12.2-14.9) Sec. INR 1.90 H (0.87-1.13) APTT 43.2 H (24.2-36.6) Sec. POC ABG pCO2 (35-45) Potassium (3.6-5.0) mmol/L Chloride (98-107) mmol/L POC Glucose (70-105) Lactic Acid 3.60 H* 2.70 H* (0.7-2.0) mmol/L Calcium (8.4-10.2) mg/dL 03/23/19 03/23/19 03/23/19 Range/Units 04:37 04:50 04:50 WBC 12.1 H (4.5-11.0) K/mm3 RBC 2.36 L (3.65-5.03) M/mm3 Hgb 7.7 L (10.1-14.3) gm/dl Hct 22.9 L (30.3-42.9) % MCH 33 H (28-32) pg Plt Count 37 L (140-440) K/mm3 Seg Neuts % (Manual) 83.0 H (40.0-70.0) % Lymphocytes % (Manual) 8.0 L (13.4-35.0) % Seg Neutrophils # Man 10.0 H (1.8-7.7) K/mm3 Lymphocytes # (Manual) 1.0 L (1.2-5.4) K/mm3 PT (12.2-14.9) Sec. INR (0.87-1.13) APTT (24.2-36.6) Sec. POC ABG pCO2 34.8 L (35-45) Potassium 3.5 L (3.6-5.0) mmol/L Chloride 108.3 H (98-107) mmol/L POC Glucose (70-105) Lactic Acid (0.7-2.0) mmol/L Calcium 7.3 L (8.4-10.2) mg/dL 03/23/19 03/23/19 Range/Units 05:25 05:53 WBC (4.5-11.0) K/mm3 RBC (3.65-5.03) M/mm3 Hgb (10.1-14.3) gm/dl Hct (30.3-42.9) % MCH (28-32) pg Plt Count (140-440) K/mm3 Seg Neuts % (Manual) (40.0-70.0) % Lymphocytes % (Manual) (13.4-35.0) % Seg Neutrophils # Man (1.8-7.7) K/mm3 Lymphocytes # (Manual) (1.2-5.4) K/mm3 PT (12.2-14.9) Sec. INR (0.87-1.13) APTT (24.2-36.6) Sec. POC ABG pCO2 33.3 L (35-45) Potassium (3.6-5.0) mmol/L Chloride (98-107) mmol/L POC Glucose 68 L (70-105) Lactic Acid (0.7-2.0) mmol/L Calcium (8.4-10.2) mg/dL - Imaging and cardiology Chest x-ray: report reviewed, image reviewed (bibasilar infiltrates)
[2019-03-23] MEDS: LOPRESSOR IV PRN (13:40)
[2019-03-23] MEDS ORDERED: K-DUR PO ONE (14:51)
--- NOTE | 2019-03-23 14:52 | Progress Note ---
Assessment and Plan Acute metabolic encephalopathy, - cont supportive care, CT head negative Acute hypoxic respiratory s/p ETT placement: consulted CCM, wean off vent as tolerated, scheduled nebs Sepsis due to aspiration pneumonia; treat with iv abx, follow cx Septic shock: off pressor, weaned off, BP now stable Paroxysmal Atrial fib, Now NSR - on amioderone, added renally dosed digoxin HA (acute kidney injury), atn and vasomotor nephrology, poa: IV fluids for now, Nephrology consulted - renal function improved RUL Aspiration pneumonia: Cont IV Cefepime and IV Vancomycin Hypernatremia: repeat bmp am, Iv fluid Hypomagnesemia: replete and follow as needed Elevated troponin I level NSTEMI II; consulted Cardiology DVT prophylaxis d/w family at bedside full code CCT 34 minutes Brief History Patient is a 73 yo woman without a clear past medical history due to patient presentation of being Altered requiring intubation upon admission. Upon arrival to the emergency room, the patient is obtunded, breathing without difficulty, desaturating, without a gag reflex. Therefore, patient placed on nasal cannula at 15 L/m, and then intubated without difficulty. Patient is started empirically on the sepsis pathway, with broad-spectrum antibiotics, aggressive IV fluids, and post intubation sedation package. * pCXR FINDINGS: SUPPORT DEVICES: Endotracheal tube is in place in good position above the liam. HEART / MEDIASTINUM: No significant abnormality. LUNGS / PLEURA: There is moderate bibasilar lung consolidation and slight right upper lobe consolidation as well. No edema or effusions. No pneumothorax. ADDITIONAL FINDINGS: No significant additional findings. IMPRESSION: 1. Endotracheal tube in good position. * CT head without contrast IMPRESSION: Encephalomalacia in the entire right cerebral hemisphere Volume loss in the left cerebral hemisphere I do not see an acute parenchymal lesion in the brain. * Abdominal Xray 1 view: FINDINGS: TUBES / LINES: The NG tube has been advanced and now terminates along the lateral margin of the gastric fundus. The side- port of the tube projects over the GE junction. BOWEL GAS PATTERN: No significant abnormality. FREE AIR / EXTRALUMINAL GAS: None seen. ADDITIONAL FINDINGS: Opacities are again noted throughout the right lung. The IVC filter is unchanged in position. IMPRESSION: Interval advancement of the NG tube as above. The side-port of the tube is likely located at the GE junction. The tube may be advanced another 3-4 cm if desired. Hospitalist Physical Gen: critcally ill, thin frail, bmi 20, intubated,sedated on Fentanyl HEENT: NCAT, EOMI, PERRL, OP Clear Neck: supple, no adenopathy, no thyromegaly, no JVD CVS/Heart: RRR, normal S1S2, pulses present bilaterally Chest/Lungs: CTA B, Symmetrical chest expansion, good air entry bilaterally GI/Abdomen: soft, NTND, good bowel sounds, no guarding or rebound /Bladder: no suprapubic tenderness, no CVA or paraspinal tenderness Extermity/Skin: no c/c/e, no obvious rash MSK: intubated Neuro: intubated Psych: intubated Subjective Date of service: 03/23/19 Principal diagnosis: resp fail sepsis Interval history: Pt seen and examined updated at the bedside remained intubated, off pressor Objective - Constitutional Vitals: Vital Signs - 12hr 03/23/19 03/23/19 03/23/19 03:00 03:12 03:15 Temperature Pulse Rate 124 H 124 H 129 H Pulse Rate [ Right Dorsalis Pedis] Respiratory 21 23 Rate Blood Pressure 110/60 110/60 105/57 O2 Sat by Pulse 99 100 99 Oximetry 03/23/19 03/23/19 03/23/19 03:30 03:45 03:47 Temperature 100.5 F H Pulse Rate 124 H 129 H Pulse Rate [ Right Dorsalis Pedis] Respiratory 18 24 Rate Blood Pressure 103/60 98/67 O2 Sat by Pulse 99 99 Oximetry 03/23/19 03/23/19 03/23/19 04:00 04:15 04:30 Temperature Pulse Rate 126 H 124 H 126 H Pulse Rate [ 132 H Right Dorsalis Pedis] Respiratory 25 H 17 19 Rate Blood Pressure 98/67 101/59 118/61 O2 Sat by Pulse 100 100 Oximetry 03/23/19 03/23/19 03/23/19 04:45 05:00 05:15 Temperature Pulse Rate 124 H 122 H 122 H Pulse Rate [ Right Dorsalis Pedis] Respiratory 16 19 16 Rate Blood Pressure 115/63 120/61 119/57 O2 Sat by Pulse 100 100 100 Oximetry 03/23/19 03/23/19 03/23/19 05:30 05:45 06:00 Temperature Pulse Rate 123 H 122 H 124 H Pulse Rate [ Right Dorsalis Pedis] Respiratory 16 20 25 H Rate Blood Pressure 104/65 112/67 117/62 O2 Sat by Pulse 100 100 100 Oximetry 03/23/19 03/23/19 03/23/19 06:15 06:30 06:45 Temperature Pulse Rate 122 H 123 H 123 H Pulse Rate [ Right Dorsalis Pedis] Respiratory 15 24 18 Rate Blood Pressure 121/58 126/69 126/62 O2 Sat by Pulse 100 100 100 Oximetry 03/23/19 03/23/19 03/23/19 07:00 07:15 07:30 Temperature Pulse Rate 126 H 122 H 123 H Pulse Rate [ Right Dorsalis Pedis] Respiratory 14 17 15 Rate Blood Pressure 110/56 116/61 116/60 O2 Sat by Pulse 100 100 100 Oximetry 03/23/19 03/23/19 03/23/19 07:45 08:00 08:15 Temperature 99.4 F Pulse Rate 121 H 123 H 129 H Pulse Rate [ Right Dorsalis Pedis] Respiratory 18 17 23 Rate Blood Pressure 122/57 123/63 130/68 O2 Sat by Pulse 100 100 Oximetry 03/23/19 03/23/19 03/23/19 08:30 08:45 09:00 Temperature Pulse Rate 127 H 127 H 127 H Pulse Rate [ Right Dorsalis Pedis] Respiratory 19 17 21 Rate Blood Pressure 124/63 111/65 123/62 O2 Sat by Pulse Oximetry 03/23/19 03/23/19 03/23/19 09:15 09:23 09:30 Temperature Pulse Rate 130 H 128 H 125 H Pulse Rate [ Right Dorsalis Pedis] Respiratory 25 H 7 L 19 Rate Blood Pressure 116/70 116/66 116/66 O2 Sat by Pulse Oximetry 03/23/19 03/23/19 03/23/19 09:45 10:00 10:15 Temperature Pulse Rate 129 H 138 H 133 H Pulse Rate [ Right Dorsalis Pedis] Respiratory 17 18 21 Rate Blood Pressure 123/71 125/62 110/59 O2 Sat by Pulse 94 94 94 Oximetry 03/23/19 03/23/19 03/23/19 10:31 10:36 10:45 Temperature Pulse Rate 136 H 147 H 134 H Pulse Rate [ Right Dorsalis Pedis] Respiratory 25 H 25 H Rate Blood Pressure 113/62 113/62 128/74 O2 Sat by Pulse 96 Oximetry 03/23/19 03/23/19 03/23/19 11:00 11:15 11:30 Temperature Pulse Rate 169 H 134 H 146 H Pulse Rate [ Right Dorsalis Pedis] Respiratory 30 H 30 H 21 Rate Blood Pressure 122/81 117/67 123/72 O2 Sat by Pulse 95 94 96 Oximetry 03/23/19 03/23/19 03/23/19 11:45 12:00 12:01 Temperature 98.3 F Pulse Rate 144 H 145 H 145 H Pulse Rate [ Right Dorsalis Pedis] Respiratory 22 21 Rate Blood Pressure 130/75 132/74 O2 Sat by Pulse 94 99 96 Oximetry 03/23/19 03/23/19 03/23/19 12:15 12:31 12:45 Temperature Pulse Rate 144 H 151 H 142 H Pulse Rate [ Right Dorsalis Pedis] Respiratory 21 21 20 Rate Blood Pressure 132/74 123/71 132/74 O2 Sat by Pulse 98 97 98 Oximetry 03/23/19 03/23/19 03/23/19 13:00 13:15 13:31 Temperature Pulse Rate 171 H 142 H 169 H Pulse Rate [ Right Dorsalis Pedis] Respiratory 19 22 15 Rate Blood Pressure 96/64 123/71 88/67 O2 Sat by Pulse 97 98 98 Oximetry 03/23/19 03/23/19 03/23/19 13:40 13:45 14:00 Temperature Pulse Rate 162 H 114 H 114 H Pulse Rate [ Right Dorsalis Pedis] Respiratory 16 23 Rate Blood Pressure 115/79 119/71 117/65 O2 Sat by Pulse 97 97 Oximetry - Labs CBC & Chem 7: 03/24/19 06:00 03/24/19 05:50 Labs: Abnormal lab results 03/22/19 03/22/19 03/23/19 Range/Units 13:45 22:20 01:06 WBC (4.5-11.0) K/mm3 RBC (3.65-5.03) M/mm3 Hgb (10.1-14.3) gm/dl Hct (30.3-42.9) % MCH (28-32) pg Plt Count (140-440) K/mm3 Seg Neuts % (Manual) (40.0-70.0) % Lymphocytes % (Manual) (13.4-35.0) % Seg Neutrophils # Man (1.8-7.7) K/mm3 Lymphocytes # (Manual) (1.2-5.4) K/mm3 PT 21.4 H (12.2-14.9) Sec. INR 1.90 H (0.87-1.13) APTT 43.2 H (24.2-36.6) Sec. POC ABG pCO2 (35-45) Potassium (3.6-5.0) mmol/L Chloride (98-107) mmol/L POC Glucose (70-105) Lactic Acid 3.60 H* 2.70 H* (0.7-2.0) mmol/L Calcium (8.4-10.2) mg/dL 03/23/19 03/23/19 03/23/19 Range/Units 04:37 04:50 04:50 WBC 12.1 H (4.5-11.0) K/mm3 RBC 2.36 L (3.65-5.03) M/mm3 Hgb 7.7 L (10.1-14.3) gm/dl Hct 22.9 L (30.3-42.9) % MCH 33 H (28-32) pg Plt Count 37 L (140-440) K/mm3 Seg Neuts % (Manual) 83.0 H (40.0-70.0) % Lymphocytes % (Manual) 8.0 L (13.4-35.0) % Seg Neutrophils # Man 10.0 H (1.8-7.7) K/mm3 Lymphocytes # (Manual) 1.0 L (1.2-5.4) K/mm3 PT (12.2-14.9) Sec. INR (0.87-1.13) APTT (24.2-36.6) Sec. POC ABG pCO2 34.8 L (35-45) Potassium 3.5 L (3.6-5.0) mmol/L Chloride 108.3 H (98-107) mmol/L POC Glucose (70-105) Lactic Acid (0.7-2.0) mmol/L Calcium 7.3 L (8.4-10.2) mg/dL 03/23/19 03/23/19 Range/Units 05:25 05:53 WBC (4.5-11.0) K/mm3 RBC (3.65-5.03) M/mm3 Hgb (10.1-14.3) gm/dl Hct (30.3-42.9) % MCH (28-32) pg Plt Count (140-440) K/mm3 Seg Neuts % (Manual) (40.0-70.0) % Lymphocytes % (Manual) (13.4-35.0) % Seg Neutrophils # Man (1.8-7.7) K/mm3 Lymphocytes # (Manual) (1.2-5.4) K/mm3 PT (12.2-14.9) Sec. INR (0.87-1.13) APTT (24.2-36.6) Sec. POC ABG pCO2 33.3 L (35-45) Potassium (3.6-5.0) mmol/L Chloride (98-107) mmol/L POC Glucose 68 L (70-105) Lactic Acid (0.7-2.0) mmol/L Calcium (8.4-10.2) mg/dL
[2019-03-24] MEDS: LOPRESSOR IV PRN ×2 (00:53→21:20)
[2019-03-24] MEDS: DUONEB *Not for PRN Use IH SCH ×4 (01:22→20:31)
--- NOTE | 2019-03-24 03:57 | XRay Report ---
CHEST 1 VIEW 03/24/2019 2:31 AM INDICATION / CLINICAL INFORMATION: Follow-up pneumonia. COMPARISON: One view of the chest from 03/23/2019. FINDINGS: SUPPORT DEVICES: Stable. HEART / MEDIASTINUM: No significant abnormality. LUNGS / PLEURA: Stable pleural effusions and bilateral pulmonary opacities. No pneumothorax. ADDITIONAL FINDINGS: No significant additional findings. IMPRESSION: Stable appearance of the chest. Signer Name: Chin Morris MD Signed: 03/24/2019 3:52 AM Workstation Name: [id number]
[2019-03-24] MEDS: D5NS 1,000 ML IV SCH (05:51)
[2019-03-24] MEDS: HumaLOG SUB-Q SCH ×5 (05:55→23:59)
[2019-03-24] MEDS: FLAGYL 500 MG/100 ML 500 MG/100 ML BAG IV SCH ×3 (05:59→21:14)
[2019-03-24 06:34] LABS: Basophils % (Auto) 0.4 % (0.0-1.8); Eosinophils # (Auto) 0.1 K/mm3 (0.0-0.4); Eosinophils % (Auto) 0.8 % (0.0-4.3); Hematocrit 20.5 % (30.3-42.9); Hemoglobin 6.9 gm/dl (10.1-14.3); Lymphocytes # (Auto) 1.1 K/mm3 (1.2-5.4); Lymphocytes % (Auto) 8.1 % (13.4-35.0); Mean Corpuscular HGB Conc 34 % (30-34); Mean Corpuscular Volume 99 fl (79-97); Monocytes # (Auto) 1.4 K/mm3 (0.0-0.8); Red Blood Count 2.08 M/mm3 (3.65-5.03); Red Cell Distribution Width 14.4 % (13.2-15.2)
[2019-03-24 06:38] LABS: BUN/Creatinine Ratio 30; Blood Urea Nitrogen 15 mg/dL (7-17); Calcium 6.4 mg/dL (8.4-10.2); Hemolysis Index 63
[2019-03-24 06:51] LABS: Platelet Count 50 K/mm3 (140-440)
[2019-03-24] MEDS: PULMICORT IH SCH ×2 (08:39→20:31)
[2019-03-24] MEDS: CORDARONE PO SCH ×2 (09:45→21:17)
[2019-03-24] MEDS: KEPPRA 750 MG in D5W 100 ML IV SCH (09:45)
[2019-03-24] MEDS: MAXIPIME/NS 2 GM/100 ML 2 GM/100 ML BAG IV SCH ×2 (09:45→21:15)
[2019-03-24] MEDS: PEPCID PO SCH ×2 (09:46→21:17)
[2019-03-24] MEDS: BABY ASPIRIN PO SCH (09:46)
[2019-03-24] MEDS ORDERED: POTASSIUM CHLORIDE FEEDTUBE ONE (10:00)
--- NOTE | 2019-03-24 10:05 | Progress Note ---
Assessment and Plan 73 y/o female found unresponsive now intubated and septic, etiology thought secondary to pneumonia with anemia and thrombocytopenia 1. Continue ventilator support. Suggest consulting surgery now as the likelihood of waking up appears to be low given the amount of time off sedation. 2. Patient currently on keppra. No documented evidence of seizure. Spoke with pharmacy and nurse reported seizure like activity. Going to stop for now. Did not see EEG or neuro consult. 3. ID following, currently on cefepime and flagyl 4. Mild pulmonary HTN, currently does not appear to an issue. If survives, can address and work up at a later date. 5. Hold on DVT prophylaxix, continue GI prophy 6. Overall prognosis is guarded CCT 31 minutes. Subjective Date of service: 03/24/19 Principal diagnosis: resp fail sepsis Interval history: no acute events. remains on the vent, unresponsive. Still tachycardic. HgB and Hematocrit continue to decrease. Platelets low but improved compared to yesterday. at bedside asleep. Low grade fever highest 100.6 Objective Vital Signs - 12hr 03/23/19 03/23/19 03/23/19 22:00 22:15 22:31 Temperature Pulse Rate 126 H 126 H 132 H Pulse Rate [ Anterior Bilateral Throughout] Pulse Rate [ From Monitor] Respiratory 29 H 22 23 Rate Respiratory Rate [Anterior Bilateral Throughout] Blood Pressure 124/64 117/69 136/69 O2 Sat by Pulse 97 97 98 Oximetry 03/23/19 03/23/19 03/23/19 22:43 22:45 23:00 Temperature Pulse Rate 132 H 128 H 131 H Pulse Rate [ Anterior Bilateral Throughout] Pulse Rate [ From Monitor] Respiratory 25 H 30 H Rate Respiratory Rate [Anterior Bilateral Throughout] Blood Pressure 141/73 150/73 O2 Sat by Pulse 98 96 96 Oximetry 03/23/19 03/23/19 03/23/19 23:01 23:15 23:24 Temperature 100.3 F H Pulse Rate 128 H 129 H Pulse Rate [ Anterior Bilateral Throughout] Pulse Rate [ From Monitor] Respiratory 28 H 21 Rate Respiratory Rate [Anterior Bilateral Throughout] Blood Pressure 150/73 150/73 O2 Sat by Pulse 98 97 Oximetry 03/23/19 03/23/19 03/23/19 23:25 23:30 23:45 Temperature Pulse Rate 152 H 130 H 131 H Pulse Rate [ Anterior Bilateral Throughout] Pulse Rate [ From Monitor] Respiratory 22 22 Rate Respiratory Rate [Anterior Bilateral Throughout] Blood Pressure 150/73 131/68 137/78 O2 Sat by Pulse 97 97 98 Oximetry 03/24/19 03/24/19 03/24/19 00:00 00:15 00:31 Temperature Pulse Rate 133 H 135 H 172 H Pulse Rate [ Anterior Bilateral Throughout] Pulse Rate [ From Monitor] Respiratory 21 24 28 H Rate Respiratory Rate [Anterior Bilateral Throughout] Blood Pressure 131/70 134/76 131/70 O2 Sat by Pulse 97 98 97 Oximetry 03/24/19 03/24/19 03/24/19 00:45 00:53 01:00 Temperature Pulse Rate 132 H 148 H 105 H Pulse Rate [ Anterior Bilateral Throughout] Pulse Rate [ From Monitor] Respiratory 25 H 19 Rate Respiratory Rate [Anterior Bilateral Throughout] Blood Pressure 138/63 138/63 155/65 O2 Sat by Pulse 97 98 Oximetry 03/24/19 03/24/19 03/24/19 01:15 01:30 01:40 Temperature Pulse Rate 106 H 109 H Pulse Rate [ 114 H Anterior Bilateral Throughout] Pulse Rate [ From Monitor] Respiratory 20 24 Rate Respiratory 26 H Rate [Anterior Bilateral Throughout] Blood Pressure 125/63 138/64 O2 Sat by Pulse 97 96 Oximetry 03/24/19 03/24/19 03/24/19 01:45 02:00 02:15 Temperature Pulse Rate 113 H 116 H 116 H Pulse Rate [ Anterior Bilateral Throughout] Pulse Rate [ From Monitor] Respiratory 21 19 18 Rate Respiratory Rate [Anterior Bilateral Throughout] Blood Pressure 136/68 145/72 130/67 O2 Sat by Pulse 98 97 97 Oximetry 03/24/19 03/24/19 03/24/19 02:30 02:45 03:00 Temperature Pulse Rate 117 H 118 H 118 H Pulse Rate [ Anterior Bilateral Throughout] Pulse Rate [ From Monitor] Respiratory 22 26 H 28 H Rate Respiratory Rate [Anterior Bilateral Throughout] Blood Pressure 137/65 131/71 143/66 O2 Sat by Pulse 95 97 97 Oximetry 03/24/19 03/24/19 03/24/19 03:15 03:20 03:21 Temperature 100.5 F H Pulse Rate 120 H 118 H Pulse Rate [ Anterior Bilateral Throughout] Pulse Rate [ From Monitor] Respiratory 19 Rate Respiratory Rate [Anterior Bilateral Throughout] Blood Pressure 145/82 145/82 O2 Sat by Pulse 99 97 Oximetry 03/24/19 03/24/19 03/24/19 03:30 03:45 04:00 Temperature Pulse Rate 120 H 119 H 120 H Pulse Rate [ Anterior Bilateral Throughout] Pulse Rate [ From Monitor] Respiratory 30 H 22 27 H Rate Respiratory Rate [Anterior Bilateral Throughout] Blood Pressure 122/68 135/63 134/63 O2 Sat by Pulse 98 99 100 Oximetry 03/24/19 03/24/19 03/24/19 04:15 04:30 04:45 Temperature Pulse Rate 123 H 123 H 120 H Pulse Rate [ Anterior Bilateral Throughout] Pulse Rate [ From Monitor] Respiratory 24 31 H 15 Rate Respiratory Rate [Anterior Bilateral Throughout] Blood Pressure 142/58 132/64 135/66 O2 Sat by Pulse 100 98 100 Oximetry 03/24/19 03/24/19 03/24/19 05:00 05:15 05:30 Temperature Pulse Rate 120 H 121 H 120 H Pulse Rate [ Anterior Bilateral Throughout] Pulse Rate [ From Monitor] Respiratory 24 18 27 H Rate Respiratory Rate [Anterior Bilateral Throughout] Blood Pressure 129/62 131/68 133/67 O2 Sat by Pulse 98 99 99 Oximetry 03/24/19 03/24/19 03/24/19 05:45 06:00 06:01 Temperature Pulse Rate 124 H 120 H 124 H Pulse Rate [ Anterior Bilateral Throughout] Pulse Rate [ From Monitor] Respiratory 23 19 Rate Respiratory Rate [Anterior Bilateral Throughout] Blood Pressure 124/60 117/57 O2 Sat by Pulse 97 98 Oximetry 03/24/19 03/24/19 03/24/19 06:15 06:30 06:45 Temperature Pulse Rate 120 H 124 H 121 H Pulse Rate [ Anterior Bilateral Throughout] Pulse Rate [ From Monitor] Respiratory 19 21 23 Rate Respiratory Rate [Anterior Bilateral Throughout] Blood Pressure 134/66 125/71 122/62 O2 Sat by Pulse 99 100 100 Oximetry 03/24/19 03/24/19 03/24/19 07:00 07:15 07:30 Temperature Pulse Rate 124 H 121 H 122 H Pulse Rate [ Anterior Bilateral Throughout] Pulse Rate [ From Monitor] Respiratory 21 20 20 Rate Respiratory Rate [Anterior Bilateral Throughout] Blood Pressure 131/68 123/54 111/62 O2 Sat by Pulse 100 100 100 Oximetry 03/24/19 03/24/19 03/24/19 07:45 08:00 08:15 Temperature Pulse Rate 119 H 120 H 123 H Pulse Rate [ Anterior Bilateral Throughout] Pulse Rate [ 123 H From Monitor] Respiratory 18 20 20 Rate Respiratory Rate [Anterior Bilateral Throughout] Blood Pressure 122/57 121/55 122/57 O2 Sat by Pulse 99 99 99 Oximetry 03/24/19 03/24/19 03/24/19 08:30 08:32 08:45 Temperature Pulse Rate 121 H 125 H 124 H Pulse Rate [ Anterior Bilateral Throughout] Pulse Rate [ From Monitor] Respiratory 17 29 H Rate Respiratory Rate [Anterior Bilateral Throughout] Blood Pressure 122/58 122/58 126/59 O2 Sat by Pulse 99 100 98 Oximetry Constitutional: lethargic, other (intubated on vent min responsive off sedation) Eyes: non-icteric ENT: other (intubated ) Neck: supple Effort: mildly labored, other (poor efforts ) Ascultation: Bilateral: diminished breath sounds (grossly clear ), rales (coarse bilat ) Percussion: Bilateral: not dull, dull Cardiovascular: other (tachy AF ) Gastrointestinal: hypoactive bowel sounds Integumentary: normal Extremities: anasarca Neurologic: unable to assess CBC and BMP: 03/24/19 06:00 03/24/19 05:50 ABG, PT/INR, D-dimer: ABG POC ABG pH 7.430 (7.35-7.45) 03/24/19 03:26 POC ABG pO2 78 (80-105) L 03/24/19 03:26 POC ABG HCO3 18.3 (22-26 mml/L) 03/24/19 03:26 POC ABG Total CO2 19 (23-27mmol/L) 03/24/19 03:26 POC ABG O2 Sat 96 03/24/19 03:26 PT/INR, D-dimer PT 21.4 Sec. (12.2-14.9) H 03/22/19 13:45 INR 1.90 (0.87-1.13) H 03/22/19 13:45 Abnormal lab findings: Abnormal Labs 03/19/19 03/19/19 03/19/19 12:59 12:59 12:59 WBC RBC 3.44 L Hgb Hct MCV 101 H MCH 34 H Plt Count 98 L Lymph % (Auto) Sharkey % (Auto) Lymph # Sharkey # Seg Neutrophils % Seg Neuts % (Manual) 11.0 L Lymphocytes % (Manual) Monocytes % (Manual) 10.0 H Nucleated RBC % 1.0 H Seg Neutrophils # Seg Neutrophils # Man 0.6 L Lymphocytes # (Manual) PT INR APTT POC ABG pH POC ABG pCO2 POC ABG pO2 Sodium 149 H Potassium Chloride 109.4 H Carbon Dioxide BUN 51 H Creatinine 3.2 H Glucose 58 L POC Glucose Lactic Acid 7.60 H* Calcium 7.8 L Phosphorus Magnesium 1.60 L AST 75 H Total Creatine Kinase 1499 H Troponin T 0.109 H* Total Protein 5.2 L Albumin 1.7 L Prealbumin LDL Cholesterol Direct 22 L HDL Cholesterol 31 L TSH PTH Intact Urine Creatinine Urine Total Protein Salicylates Acetaminophen 03/19/19 03/19/19 03/19/19 12:59 12:59 14:48 WBC RBC Hgb Hct MCV MCH Plt Count Lymph % (Auto) [place]key % (Auto) Lymph # Sharkey # Seg Neutrophils % Seg Neuts % (Manual) Lymphocytes % (Manual) Monocytes % (Manual) Nucleated RBC % Seg Neutrophils # Seg Neutrophils # Man Lymphocytes # (Manual) PT INR APTT POC ABG pH POC ABG pCO2 POC ABG pO2 Sodium Potassium Chloride Carbon Dioxide BUN Creatinine Glucose POC Glucose 44 L Lactic Acid Calcium Phosphorus Magnesium AST Total Creatine Kinase Troponin T Total Protein Albumin Prealbumin LDL Cholesterol Direct HDL Cholesterol TSH PTH Intact Urine Creatinine Urine Total Protein Salicylates < 0.3 L Acetaminophen < 5.0 L 03/19/19 03/19/19 03/19/19 15:33 15:52 16:26 WBC RBC Hgb Hct MCV MCH Plt Count Lymph % (Auto) [place]key % (Auto) Lymph # Sharkey # Seg Neutrophils % Seg Neuts % (Manual) Lymphocytes % (Manual) Monocytes % (Manual) Nucleated RBC % Seg Neutrophils # Seg Neutrophils # Man Lymphocytes # (Manual) PT INR APTT POC ABG pH POC ABG pCO2 POC ABG pO2 Sodium Potassium Chloride Carbon Dioxide BUN Creatinine Glucose POC Glucose 228 H 231 H Lactic Acid Calcium Phosphorus Magnesium AST Total Creatine Kinase Troponin T Total Protein Albumin Prealbumin LDL Cholesterol Direct HDL Cholesterol TSH PTH Intact Urine Creatinine 31.8 H Urine Total Protein Salicylates Acetaminophen 03/19/19 03/19/19 03/19/19 16:38 17:14 18:43 WBC RBC Hgb Hct MCV MCH Plt Count Lymph % (Auto) [place]key % (Auto) Lymph # Sharkey # Seg Neutrophils % Seg Neuts % (Manual) Lymphocytes % (Manual) Monocytes % (Manual) Nucleated RBC % Seg Neutrophils # Seg Neutrophils # Man Lymphocytes # (Manual) PT INR APTT POC ABG pH 7.196 L POC ABG pCO2 30.8 L POC ABG pO2 Sodium Potassium Chloride Carbon Dioxide BUN Creatinine Glucose POC Glucose 235 H Lactic Acid 8.10 H* Calcium Phosphorus Magnesium AST Total Creatine Kinase Troponin T Total Protein Albumin Prealbumin LDL Cholesterol Direct HDL Cholesterol TSH PTH Intact Urine Creatinine Urine Total Protein Salicylates Acetaminophen 03/19/19 03/19/19 03/19/19 18:52 20:00 20:56 WBC RBC Hgb Hct MCV MCH Plt Count Lymph % (Auto) [place] % (Auto) Lymph # [place]key # Seg Neutrophils % Seg Neuts % (Manual) Lymphocytes % (Manual) Monocytes % (Manual) Nucleated RBC % Seg Neutrophils # Seg Neutrophils # Man Lymphocytes # (Manual) PT INR APTT POC ABG pH POC ABG pCO2 POC ABG pO2 Sodium Potassium Chloride Carbon Dioxide BUN Creatinine Glucose POC Glucose 240 H 117 H Lactic Acid 5.90 H* Calcium Phosphorus Magnesium AST Total Creatine Kinase Troponin T Total Protein Albumin Prealbumin LDL Cholesterol Direct HDL Cholesterol TSH PTH Intact Urine Creatinine Urine Total Protein Salicylates Acetaminophen 03/19/19 03/19/19 03/19/19 21:19 22:07 23:00 WBC RBC Hgb Hct MCV MCH Plt Count Lymph % (Auto) [place] % (Auto) Lymph # [place]key # Seg Neutrophils % Seg Neuts % (Manual) Lymphocytes % (Manual) Monocytes % (Manual) Nucleated RBC % Seg Neutrophils # Seg Neutrophils # Man Lymphocytes # (Manual) PT INR APTT POC ABG pH POC ABG pCO2 POC ABG pO2 Sodium Potassium Chloride Carbon Dioxide BUN Creatinine Glucose POC Glucose < 40 L 136 H Lactic Acid 6.10 H* Calcium Phosphorus Magnesium AST Total Creatine Kinase Troponin T Total Protein Albumin Prealbumin LDL Cholesterol Direct HDL Cholesterol TSH PTH Intact Urine Creatinine Urine Total Protein Salicylates Acetaminophen 03/20/19 03/20/19 03/20/19 00:05 01:38 02:23 WBC RBC Hgb Hct MCV MCH Plt Count Lymph % (Auto) [place] % (Auto) Lymph # [place] # Seg Neutrophils % Seg Neuts % (Manual) Lymphocytes % (Manual) Monocytes % (Manual) Nucleated RBC % Seg Neutrophils # Seg Neutrophils # Man Lymphocytes # (Manual) PT INR APTT POC ABG pH POC ABG pCO2 POC ABG pO2 Sodium Potassium Chloride Carbon Dioxide BUN Creatinine Glucose POC Glucose 68 L 153 H 127 H Lactic Acid Calcium Phosphorus Magnesium AST Total Creatine Kinase Troponin T Total Protein Albumin Prealbumin LDL Cholesterol Direct HDL Cholesterol TSH PTH Intact Urine Creatinine Urine Total Protein Salicylates Acetaminophen 03/20/19 03/20/19 03/20/19 03:12 04:31 04:41 WBC RBC Hgb Hct MCV MCH Plt Count Lymph % (Auto) [place]key % (Auto) Lymph # [place]key # Seg Neutrophils % Seg Neuts % (Manual) Lymphocytes % (Manual) Monocytes % (Manual) Nucleated RBC % Seg Neutrophils # Seg Neutrophils # Man Lymphocytes # (Manual) PT INR APTT POC ABG pH POC ABG pCO2 POC ABG pO2 53 L 65 L Sodium Potassium Chloride Carbon Dioxide BUN Creatinine Glucose POC Glucose 109 H Lactic Acid Calcium Phosphorus Magnesium AST Total Creatine Kinase Troponin T Total Protein Albumin Prealbumin LDL Cholesterol Direct HDL Cholesterol TSH PTH Intact Urine Creatinine Urine Total Protein Salicylates Acetaminophen 03/20/19 03/20/19 03/20/19 05:50 07:29 08:14 WBC RBC Hgb Hct MCV MCH Plt Count Lymph % (Auto) [place]key % (Auto) Lymph # [place]key # Seg Neutrophils % Seg Neuts % (Manual) Lymphocytes % (Manual) Monocytes % (Manual) Nucleated RBC % Seg Neutrophils # Seg Neutrophils # Man Lymphocytes # (Manual) PT INR APTT POC ABG pH POC ABG pCO2 POC ABG pO2 Sodium Potassium Chloride Carbon Dioxide BUN Creatinine Glucose 61 L POC Glucose 47 L 153 H Lactic Acid Calcium Phosphorus Magnesium 1.60 L AST Total Creatine Kinase Troponin T Total Protein Albumin Prealbumin LDL Cholesterol Direct HDL Cholesterol TSH PTH Intact Urine Creatinine Urine Total Protein Salicylates Acetaminophen 03/20/19 03/20/19 03/20/19 08:23 08:23 10:59 WBC RBC Hgb Hct MCV MCH Plt Count Lymph % (Auto) [place]key % (Auto) Lymph # [place] # Seg Neutrophils % Seg Neuts % (Manual) Lymphocytes % (Manual) Monocytes % (Manual) Nucleated RBC % Seg Neutrophils # Seg Neutrophils # Man Lymphocytes # (Manual) PT INR APTT POC ABG pH POC ABG pCO2 POC ABG pO2 Sodium Potassium Chloride Carbon Dioxide BUN Creatinine Glucose 101 H POC Glucose 233 H Lactic Acid 9.70 H* Calcium Phosphorus Magnesium AST Total Creatine Kinase Troponin T Total Protein Albumin Prealbumin 0.052 L LDL Cholesterol Direct HDL Cholesterol TSH PTH Intact Urine Creatinine Urine Total Protein Salicylates Acetaminophen 03/20/19 03/20/19 03/20/19 12:23 16:10 16:40 WBC RBC Hgb Hct MCV MCH Plt Count Lymph % (Auto) [place] % (Auto) Lymph # [place]key # Seg Neutrophils % Seg Neuts % (Manual) Lymphocytes % (Manual) Monocytes % (Manual) Nucleated RBC % Seg Neutrophils # Seg Neutrophils # Man Lymphocytes # (Manual) PT INR APTT POC ABG pH POC ABG pCO2 POC ABG pO2 Sodium Potassium Chloride Carbon Dioxide BUN Creatinine Glucose POC Glucose 135 H 171 H Lactic Acid Calcium Phosphorus Magnesium AST Total Creatine Kinase Troponin T Total Protein Albumin Prealbumin LDL Cholesterol Direct HDL Cholesterol TSH PTH Intact Urine Creatinine 53.7 H Urine Total Protein 36 H Salicylates Acetaminophen 03/20/19 03/20/19 03/20/19 16:57 17:38 17:50 WBC RBC Hgb Hct MCV MCH Plt Count Lymph % (Auto) [place]key % (Auto) Lymph # [place]key # Seg Neutrophils % Seg Neuts % (Manual) Lymphocytes % (Manual) Monocytes % (Manual) Nucleated RBC % Seg Neutrophils # Seg Neutrophils # Man Lymphocytes # (Manual) PT INR APTT POC ABG pH POC ABG pCO2 POC ABG pO2 Sodium Potassium Chloride Carbon Dioxide BUN Creatinine Glucose POC Glucose 152 H 147 H Lactic Acid 9.90 H* Calcium Phosphorus Magnesium AST Total Creatine Kinase Troponin T Total Protein Albumin Prealbumin LDL Cholesterol Direct HDL Cholesterol TSH PTH Intact Urine Creatinine Urine Total Protein Salicylates Acetaminophen 03/20/19 03/20/19 03/20/19 17:50 17:50 17:50 WBC RBC 2.92 L Hgb 10.0 L Hct 29.3 L MCV 100 H MCH 34 H Plt Count 81 L Lymph % (Auto) [place]key % (Auto) Lymph # [place]key # Seg Neutrophils % Seg Neuts % (Manual) Lymphocytes % (Manual) Monocytes % (Manual) Nucleated RBC % Seg Neutrophils # Seg Neutrophils # Man Lymphocytes # (Manual) PT INR APTT POC ABG pH POC ABG pCO2 POC ABG pO2 Sodium Potassium 2.8 L* D Chloride Carbon Dioxide BUN 30 H Creatinine 1.6 H Glucose 107 H POC Glucose Lactic Acid Calcium 6.9 L Phosphorus 2.00 L Magnesium AST Total Creatine Kinase Troponin T Total Protein Albumin Prealbumin LDL Cholesterol Direct HDL Cholesterol TSH PTH Intact 171.6 H Urine Creatinine Urine Total Protein Salicylates Acetaminophen 07/03/21/19 03/21/19 21:12 00:30 04:12 WBC RBC Hgb Hct MCV MCH Plt Count Lymph % (Auto) [place]key % (Auto) Lymph # [place]key # Seg Neutrophils % Seg Neuts % (Manual) Lymphocytes % (Manual) Monocytes % (Manual) Nucleated RBC % Seg Neutrophils # Seg Neutrophils # Man Lymphocytes # (Manual) PT INR APTT POC ABG pH POC ABG pCO2 POC ABG pO2 Sodium Potassium 3.0 L Chloride Carbon Dioxide 21 L BUN Creatinine 1.4 H Glucose 103 H POC Glucose Lactic Acid 8.70 H* 9.40 H* Calcium 6.8 L Phosphorus Magnesium AST Total Creatine Kinase Troponin T Total Protein Albumin Prealbumin LDL Cholesterol Direct HDL Cholesterol TSH PTH Intact Urine Creatinine Urine Total Protein Salicylates Acetaminophen 03/21/19 03/21/19 03/21/19 04:12 04:12 04:43 WBC RBC 2.84 L Hgb 9.5 L Hct 28.3 L MCV 100 H MCH 33 H Plt Count 79 L Lymph % (Auto) [place]key % (Auto) Lymph # [place]key # Seg Neutrophils % Seg Neuts % (Manual) Lymphocytes % (Manual) Monocytes % (Manual) Nucleated RBC % Seg Neutrophils # Seg Neutrophils # Man Lymphocytes # (Manual) PT INR APTT POC ABG pH 7.456 H POC ABG pCO2 POC ABG pO2 Sodium Potassium Chloride Carbon Dioxide BUN Creatinine Glucose POC Glucose Lactic Acid 9.50 H* Calcium Phosphorus Magnesium AST Total Creatine Kinase Troponin T Total Protein Albumin Prealbumin LDL Cholesterol Direct HDL Cholesterol TSH PTH Intact Urine Creatinine Urine Total Protein Salicylates Acetaminophen 03/21/19 03/21/19 03/21/19 08:06 08:08 10:11 WBC RBC Hgb Hct MCV MCH Plt Count Lymph % (Auto) [place] % (Auto) Lymph # [place] # Seg Neutrophils % Seg Neuts % (Manual) Lymphocytes % (Manual) Monocytes % (Manual) Nucleated RBC % Seg Neutrophils # Seg Neutrophils # Man Lymphocytes # (Manual) PT INR APTT POC ABG pH POC ABG pCO2 POC ABG pO2 Sodium Potassium 3.5 L Chloride Carbon Dioxide BUN 22 H Creatinine 1.3 H Glucose POC Glucose 64 L Lactic Acid 8.00 H* Calcium 7.0 L Phosphorus Magnesium AST Total Creatine Kinase Troponin T Total Protein Albumin Prealbumin LDL Cholesterol Direct HDL Cholesterol TSH PTH Intact Urine Creatinine Urine Total Protein Salicylates Acetaminophen 03/21/19 03/21/19 03/21/19 11:17 12:17 13:37 WBC RBC Hgb Hct MCV MCH Plt Count Lymph % (Auto) [place]key % (Auto) Lymph # [place]key # Seg Neutrophils % Seg Neuts % (Manual) Lymphocytes % (Manual) Monocytes % (Manual) Nucleated RBC % Seg Neutrophils # Seg Neutrophils # Man Lymphocytes # (Manual) PT INR APTT POC ABG pH POC ABG pCO2 POC ABG pO2 Sodium Potassium Chloride Carbon Dioxide BUN Creatinine Glucose POC Glucose 173 H 110 H Lactic Acid Calcium Phosphorus Magnesium AST Total Creatine Kinase Troponin T 0.033 H D Total Protein Albumin Prealbumin LDL Cholesterol Direct HDL Cholesterol TSH PTH Intact Urine Creatinine Urine Total Protein Salicylates Acetaminophen 03/21/19 03/21/19 03/21/19 13:37 17:21 18:52 WBC RBC Hgb Hct MCV MCH Plt Count Lymph % (Auto) [place]key % (Auto) Lymph # [place]key # Seg Neutrophils % Seg Neuts % (Manual) Lymphocytes % (Manual) Monocytes % (Manual) Nucleated RBC % Seg Neutrophils # Seg Neutrophils # Man Lymphocytes # (Manual) PT INR APTT POC ABG pH POC ABG pCO2 POC ABG pO2 Sodium Potassium Chloride Carbon Dioxide BUN Creatinine Glucose POC Glucose 130 H 107 H Lactic Acid 6.80 H* Calcium Phosphorus Magnesium AST Total Creatine Kinase Troponin T Total Protein Albumin Prealbumin LDL Cholesterol Direct HDL Cholesterol TSH PTH Intact Urine Creatinine Urine Total Protein Salicylates Acetaminophen 03/21/19 03/21/19 03/21/19 20:20 22:08 23:05 WBC RBC Hgb Hct MCV MCH Plt Count Lymph % (Auto) [place] % (Auto) Lymph # [place]key # Seg Neutrophils % Seg Neuts % (Manual) Lymphocytes % (Manual) Monocytes % (Manual) Nucleated RBC % Seg Neutrophils # Seg Neutrophils # Man Lymphocytes # (Manual) PT INR APTT POC ABG pH POC ABG pCO2 POC ABG pO2 Sodium Potassium Chloride Carbon Dioxide BUN Creatinine Glucose POC Glucose 106 H 106 H Lactic Acid Calcium Phosphorus Magnesium AST Total Creatine Kinase Troponin T 0.036 H Total Protein Albumin Prealbumin LDL Cholesterol Direct HDL Cholesterol TSH PTH Intact Urine Creatinine Urine Total Protein Salicylates Acetaminophen 03/21/19 03/21/19 03/22/19 23:05 23:05 00:14 WBC RBC Hgb Hct MCV MCH Plt Count Lymph % (Auto) [place] % (Auto) Lymph # [place]key # Seg Neutrophils % Seg Neuts % (Manual) Lymphocytes % (Manual) Monocytes % (Manual) Nucleated RBC % Seg Neutrophils # Seg Neutrophils # Man Lymphocytes # (Manual) PT INR APTT POC ABG pH POC ABG pCO2 POC ABG pO2 Sodium Potassium Chloride Carbon Dioxide BUN Creatinine Glucose POC Glucose 122 H 109 H Lactic Acid 7.00 H* Calcium Phosphorus Magnesium AST Total Creatine Kinase Troponin T Total Protein Albumin Prealbumin LDL Cholesterol Direct HDL Cholesterol TSH PTH Intact Urine Creatinine Urine Total Protein Salicylates Acetaminophen 03/22/19 03/22/19 03/22/19 03:10 04:02 05:11 WBC RBC Hgb Hct MCV MCH Plt Count Lymph % (Auto) [place] % (Auto) Lymph # [place] # Seg Neutrophils % Seg Neuts % (Manual) Lymphocytes % (Manual) Monocytes % (Manual) Nucleated RBC % Seg Neutrophils # Seg Neutrophils # Man Lymphocytes # (Manual) PT INR APTT POC ABG pH 7.487 H POC ABG pCO2 POC ABG pO2 67 L Sodium Potassium Chloride Carbon Dioxide BUN Creatinine Glucose POC Glucose 114 H 112 H Lactic Acid Calcium Phosphorus Magnesium AST Total Creatine Kinase Troponin T Total Protein Albumin Prealbumin LDL Cholesterol Direct HDL Cholesterol TSH PTH Intact Urine Creatinine Urine Total Protein Salicylates Acetaminophen 03/22/19 03/22/19 03/22/19 06:06 06:10 06:10 WBC RBC Hgb Hct MCV MCH Plt Count Lymph % (Auto) [place] % (Auto) Lymph # [place] # Seg Neutrophils % Seg Neuts % (Manual) Lymphocytes % (Manual) Monocytes % (Manual) Nucleated RBC % Seg Neutrophils # Seg Neutrophils # Man Lymphocytes # (Manual) PT INR APTT POC ABG pH POC ABG pCO2 POC ABG pO2 Sodium Potassium 3.0 L Chloride Carbon Dioxide BUN Creatinine Glucose POC Glucose 115 H Lactic Acid Calcium 7.0 L Phosphorus Magnesium AST Total Creatine Kinase Troponin T 0.036 H Total Protein Albumin Prealbumin LDL Cholesterol Direct HDL Cholesterol TSH PTH Intact Urine Creatinine Urine Total Protein Salicylates Acetaminophen 03/22/19 03/22/19 03/22/19 06:10 06:10 11:59 WBC RBC Hgb Hct MCV MCH Plt Count Lymph % (Auto) [place] % (Auto) Lymph # [place]key # Seg Neutrophils % Seg Neuts % (Manual) Lymphocytes % (Manual) Monocytes % (Manual) Nucleated RBC % Seg Neutrophils # Seg Neutrophils # Man Lymphocytes # (Manual) PT INR APTT POC ABG pH POC ABG pCO2 POC ABG pO2 Sodium Potassium Chloride Carbon Dioxide BUN Creatinine Glucose POC Glucose Lactic Acid 4.80 H* 3.80 H* Calcium Phosphorus Magnesium AST Total Creatine Kinase Troponin T Total Protein Albumin Prealbumin LDL Cholesterol Direct HDL Cholesterol TSH 7.810 H PTH Intact Urine Creatinine Urine Total Protein Salicylates Acetaminophen 03/22/19 03/22/19 03/22/19 13:45 13:45 13:45 WBC RBC Hgb 8.3 L Hct 24.5 L MCV MCH Plt Count 56 L Lymph % (Auto) [place]key % (Auto) Lymph # [place]key # Seg Neutrophils % Seg Neuts % (Manual) Lymphocytes % (Manual) Monocytes % (Manual) Nucleated RBC % Seg Neutrophils # Seg Neutrophils # Man Lymphocytes # (Manual) PT 21.4 H INR 1.90 H APTT 43.2 H POC ABG pH POC ABG pCO2 POC ABG pO2 Sodium Potassium Chloride Carbon Dioxide BUN Creatinine Glucose POC Glucose Lactic Acid 3.50 H* Calcium Phosphorus Magnesium AST Total Creatine Kinase Troponin T Total Protein Albumin Prealbumin LDL Cholesterol Direct HDL Cholesterol TSH PTH Intact Urine Creatinine Urine Total Protein Salicylates Acetaminophen 03/22/19 03/23/19 03/23/19 22:20 01:06 04:37 WBC RBC Hgb Hct MCV MCH Plt Count Lymph % (Auto) [place]key % (Auto) Lymph # [place]key # Seg Neutrophils % Seg Neuts % (Manual) Lymphocytes % (Manual) Monocytes % (Manual) Nucleated RBC % Seg Neutrophils # Seg Neutrophils # Man Lymphocytes # (Manual) PT INR APTT POC ABG pH POC ABG pCO2 34.8 L POC ABG pO2 Sodium Potassium Chloride Carbon Dioxide BUN Creatinine Glucose POC Glucose Lactic Acid 3.60 H* 2.70 H* Calcium Phosphorus Magnesium AST Total Creatine Kinase Troponin T Total Protein Albumin Prealbumin LDL Cholesterol Direct HDL Cholesterol TSH PTH Intact Urine Creatinine Urine Total Protein Salicylates Acetaminophen 03/23/19 03/23/19 03/23/19 04:50 04:50 05:25 WBC 12.1 H RBC 2.36 L Hgb 7.7 L Hct 22.9 L MCV MCH 33 H Plt Count 37 L Lymph % (Auto) [place] % (Auto) Lymph # [place] # Seg Neutrophils % Seg Neuts % (Manual) 83.0 H Lymphocytes % (Manual) 8.0 L Monocytes % (Manual) Nucleated RBC % Seg Neutrophils # Seg Neutrophils # Man 10.0 H Lymphocytes # (Manual) 1.0 L PT INR APTT POC ABG pH POC ABG pCO2 33.3 L POC ABG pO2 Sodium Potassium 3.5 L Chloride 108.3 H Carbon Dioxide BUN Creatinine Glucose POC Glucose Lactic Acid Calcium 7.3 L Phosphorus Magnesium AST Total Creatine Kinase Troponin T Total Protein Albumin Prealbumin LDL Cholesterol Direct HDL Cholesterol TSH PTH Intact Urine Creatinine Urine Total Protein Salicylates Acetaminophen 03/23/19 03/24/19 03/24/19 05:53 03:26 05:50 WBC RBC Hgb Hct MCV MCH Plt Count Lymph % (Auto) [place] % (Auto) Lymph # [place] # Seg Neutrophils % Seg Neuts % (Manual) Lymphocytes % (Manual) Monocytes % (Manual) Nucleated RBC % Seg Neutrophils # Seg Neutrophils # Man Lymphocytes # (Manual) PT INR APTT POC ABG pH POC ABG pCO2 POC ABG pO2 78 L Sodium Potassium 3.4 L Chloride 116.5 H Carbon Dioxide 21 L BUN Creatinine 0.5 L Glucose 105 H POC Glucose 68 L Lactic Acid Calcium 6.4 L Phosphorus Magnesium AST Total Creatine Kinase Troponin T Total Protein Albumin Prealbumin LDL Cholesterol Direct HDL Cholesterol TSH PTH Intact Urine Creatinine Urine Total Protein Salicylates Acetaminophen 03/24/19 03/24/19 05:57 06:00 WBC 13.6 H RBC 2.08 L Hgb 6.9 L Hct 20.5 L MCV 99 H MCH 33 H Plt Count 50 L Lymph % (Auto) 8.1 L [place] % (Auto) 10.0 H Lymph # 1.1 L [place]key # 1.4 H Seg Neutrophils % 80.7 H Seg Neuts % (Manual) Lymphocytes % (Manual) Monocytes % (Manual) Nucleated RBC % Seg Neutrophils # 11.0 H Seg Neutrophils # Man Lymphocytes # (Manual) PT INR APTT POC ABG pH POC ABG pCO2 POC ABG pO2 Sodium Potassium Chloride Carbon Dioxide BUN Creatinine Glucose POC Glucose 127 H Lactic Acid Calcium Phosphorus Magnesium AST Total Creatine Kinase Troponin T Total Protein Albumin Prealbumin LDL Cholesterol Direct HDL Cholesterol TSH PTH Intact Urine Creatinine Urine Total Protein Salicylates Acetaminophen
--- NOTE | 2019-03-24 10:06 | Progress Note ---
Assessment and Plan Cultures/ID related labs: Blood culture 03/19/2019 no growth. Urine culture 03/19/2019 negative. Tracheal aspirate 03/23/19 No growth Assessment: 73 y/o female with history of dementia admitted on 03/20/2019 brought by EMS due to altered mental status: 1) Sepsis with septic shock: shock resolved. Fevers continuing 100.5 today. source pneumonia. UA negative. Blood culture 03/19/2019 no growth. Urine culture 03/19/2019 negative. 2) Bilateral pneumonia: ? aspiration v/s CAP. Tracheal aspirate no growth. 3) Acute encephalopathy: CT head without contrast shows encephalomalacia in the entire right cerebral hemisphere, volume loss in the left cerebral hemisphere, no acute parenchymal lesion in the brain. 4) Acute respiratory failure: not better, intubated, on the vent. 5) HA: improved. Recommendations: continue cefepime 2gms IV every 12 hours, D3 continue Flagyl 500mg IV every 8 hours, D3 continue vancomycin PK dosing f/u respiratory culture, if no MRSA growth, can d/c Vancomycin Guarded prognosis, was on home hospice Dr. Quintanilla will be rounding on Wednesday, please call for questions , . Tracy Echevarria NP [facility] M: [id number] O:[phone] Subjective Date of service: 03/24/19 Principal diagnosis: resp fail sepsis Interval history: Patient seen and examined. Remains intubated. +fever. still tachycardia. Objective - Exam Narrative Exam: onstitutional: awake, intubated Head, Ears, Nose: Normocephalic, atraumatic. External ears, nose normal Eyes: Conjunctivae/corneas clear. No icterus. No ptosis. Neck: Supple, no meningeal signs Oral: intubated Cardiovascular: S1, S2 normal. Respiratory: Good air entry, clear to auscultation bilaterally GI: Soft, non-tender; bowel sounds normal. No peritoneal signs Musculoskeletal: B/L pedal edema, foot drop and contracture Skin: No rash or abscess Hem/Lymphatic: No palpable cervical or supraclavicular nodes. No lymphangitis Psych: no agitation Neurological: intubated, on vent - Constitutional Vitals: Vital Signs Temp Pulse Resp BP Pulse Ox 100.5 F H 118 H 24 126/59 98 03/24/19 03:20 03/24/19 09:00 03/24/19 09:00 03/24/19 08:45 03/24/19 08:45 Temperature -Last 24 Hours Temperature 100.5 F Temperature 100.3 F Temperature 100.5 F Temperature 99.1 F Temperature 98.3 F - Labs CBC & Chem 7: 03/24/19 06:00 03/24/19 05:50 Labs: Abnormal lab results 03/23/19 03/24/19 03/24/19 Range/Units 04:50 03:26 05:50 WBC (4.5-11.0) K/mm3 RBC (3.65-5.03) M/mm3 Hgb (10.1-14.3) gm/dl Hct (30.3-42.9) % MCV (79-97) fl MCH (28-32) pg Plt Count (140-440) K/mm3 Lymph % (Auto) (13.4-35.0) % [place] % (Auto) (0.0-7.3) % Lymph # (1.2-5.4) K/mm3 [place] # (0.0-0.8) K/mm3 Seg Neutrophils % (40.0-70.0) % Seg Neuts % (Manual) 83.0 H (40.0-70.0) % Lymphocytes % (Manual) 8.0 L (13.4-35.0) % Seg Neutrophils # (1.8-7.7) K/mm3 Seg Neutrophils # Man 10.0 H (1.8-7.7) K/mm3 Lymphocytes # (Manual) 1.0 L (1.2-5.4) K/mm3 POC ABG pO2 78 L (80-105) Potassium 3.4 L (3.6-5.0) mmol/L Chloride 116.5 H (98-107) mmol/L Carbon Dioxide 21 L (22-30) mmol/L Creatinine 0.5 L (0.7-1.2) mg/dL Glucose 105 H (65-100) mg/dL POC Glucose (70-105) Calcium 6.4 L (8.4-10.2) mg/dL 03/24/19 03/24/19 Range/Units 05:57 06:00 WBC 13.6 H (4.5-11.0) K/mm3 RBC 2.08 L (3.65-5.03) M/mm3 Hgb 6.9 L (10.1-14.3) gm/dl Hct 20.5 L (30.3-42.9) % MCV 99 H (79-97) fl MCH 33 H (28-32) pg Plt Count 50 L (140-440) K/mm3 Lymph % (Auto) 8.1 L (13.4-35.0) % [place] % (Auto) 10.0 H (0.0-7.3) % Lymph # 1.1 L (1.2-5.4) K/mm3 [place] # 1.4 H (0.0-0.8) K/mm3 Seg Neutrophils % 80.7 H (40.0-70.0) % Seg Neuts % (Manual) (40.0-70.0) % Lymphocytes % (Manual) (13.4-35.0) % Seg Neutrophils # 11.0 H (1.8-7.7) K/mm3 Seg Neutrophils # Man (1.8-7.7) K/mm3 Lymphocytes # (Manual) (1.2-5.4) K/mm3 POC ABG pO2 (80-105) Potassium (3.6-5.0) mmol/L Chloride (98-107) mmol/L Carbon Dioxide (22-30) mmol/L Creatinine (0.7-1.2) mg/dL Glucose (65-100) mg/dL POC Glucose 127 H (70-105) Calcium (8.4-10.2) mg/dL
[2019-03-24] MEDS: VANCOMYCIN/NS 1 GM/250 ML 1 GM/250 ML BAG IV SCH (10:14)
[2019-03-24] MEDS: SODIUM CHLORIDE FLUSH SYRINGE 10 ML IV SCH ×2 (10:14→21:14)
[2019-03-24] MEDS ORDERED: NACL 0.9% 500 ML 500 ML IV ONE (11:00)
--- NOTE | 2019-03-24 12:42 | Progress Note ---
Assessment and Plan Assessment: Acute Hypoxic Respiratory Failure Acute Kidney Injury possibly prerenal, ischemic ATN from hypotension, questionable whether underlying CKD process, r/o obstruction: Metabolic Acidosis Sepsis secondary to bilateral PNA Possible RUL Aspiration PNA Hypotension Hypomagnesemia Hypernatremia Elevated Troponin Plan: - HA resolved - will d.c IVF - S/P Levaphed drip for blood pressure support - Renal US showed- Mild echogenicity bilaterally. No Hydronephrosis. - Renally dose medications - Adam Catheter: Yes - Obtain daily weights will sign off, please re-consult if needed Rich Weinstein MD [phone] Subjective Date of service: 03/24/19 Principal diagnosis: resp fail sepsis Interval history: intubated, family at bedside, all questions answered Objective - Vital Signs Vital signs: Vital Signs - 12hr 03/24/19 03/24/19 03/24/19 00:45 00:53 01:00 Temperature Pulse Rate 132 H 148 H 105 H Pulse Rate [ Anterior Bilateral Throughout] Pulse Rate [ From Monitor] Respiratory 25 H 19 Rate Respiratory Rate [Anterior Bilateral Throughout] Blood Pressure 138/63 138/63 155/65 O2 Sat by Pulse 97 98 Oximetry 03/24/19 03/24/19 03/24/19 01:15 01:30 01:40 Temperature Pulse Rate 106 H 109 H Pulse Rate [ 114 H Anterior Bilateral Throughout] Pulse Rate [ From Monitor] Respiratory 20 24 Rate Respiratory 26 H Rate [Anterior Bilateral Throughout] Blood Pressure 125/63 138/64 O2 Sat by Pulse 97 96 Oximetry 03/24/19 03/24/19 03/24/19 01:45 02:00 02:15 Temperature Pulse Rate 113 H 116 H 116 H Pulse Rate [ Anterior Bilateral Throughout] Pulse Rate [ From Monitor] Respiratory 21 19 18 Rate Respiratory Rate [Anterior Bilateral Throughout] Blood Pressure 136/68 145/72 130/67 O2 Sat by Pulse 98 97 97 Oximetry 03/24/19 03/24/19 03/24/19 02:30 02:45 03:00 Temperature Pulse Rate 117 H 118 H 118 H Pulse Rate [ Anterior Bilateral Throughout] Pulse Rate [ From Monitor] Respiratory 22 26 H 28 H Rate Respiratory Rate [Anterior Bilateral Throughout] Blood Pressure 137/65 131/71 143/66 O2 Sat by Pulse 95 97 97 Oximetry 07/26/19 07/26/19 07/26/19 03:15 03:20 03:21 Temperature 100.5 F H Pulse Rate 120 H 118 H Pulse Rate [ Anterior Bilateral Throughout] Pulse Rate [ From Monitor] Respiratory 19 Rate Respiratory Rate [Anterior Bilateral Throughout] Blood Pressure 145/82 145/82 O2 Sat by Pulse 99 97 Oximetry 03/24/19 03/24/19 03/24/19 03:30 03:45 04:00 Temperature Pulse Rate 120 H 119 H 120 H Pulse Rate [ Anterior Bilateral Throughout] Pulse Rate [ From Monitor] Respiratory 30 H 22 27 H Rate Respiratory Rate [Anterior Bilateral Throughout] Blood Pressure 122/68 135/63 134/63 O2 Sat by Pulse 98 99 100 Oximetry 03/24/19 03/24/19 03/24/19 04:15 04:30 04:45 Temperature Pulse Rate 123 H 123 H 120 H Pulse Rate [ Anterior Bilateral Throughout] Pulse Rate [ From Monitor] Respiratory 24 31 H 15 Rate Respiratory Rate [Anterior Bilateral Throughout] Blood Pressure 142/58 132/64 135/66 O2 Sat by Pulse 100 98 100 Oximetry 03/24/19 03/24/19 03/24/19 05:00 05:15 05:30 Temperature Pulse Rate 120 H 121 H 120 H Pulse Rate [ Anterior Bilateral Throughout] Pulse Rate [ From Monitor] Respiratory 24 18 27 H Rate Respiratory Rate [Anterior Bilateral Throughout] Blood Pressure 129/62 131/68 133/67 O2 Sat by Pulse 98 99 99 Oximetry 03/24/19 03/24/19 03/24/19 05:45 06:00 06:01 Temperature Pulse Rate 124 H 120 H 124 H Pulse Rate [ Anterior Bilateral Throughout] Pulse Rate [ From Monitor] Respiratory 23 19 Rate Respiratory Rate [Anterior Bilateral Throughout] Blood Pressure 124/60 117/57 O2 Sat by Pulse 97 98 Oximetry 03/24/19 03/24/19 03/24/19 06:15 06:30 06:45 Temperature Pulse Rate 120 H 124 H 121 H Pulse Rate [ Anterior Bilateral Throughout] Pulse Rate [ From Monitor] Respiratory 19 21 23 Rate Respiratory Rate [Anterior Bilateral Throughout] Blood Pressure 134/66 125/71 122/62 O2 Sat by Pulse 99 100 100 Oximetry 03/24/19 03/24/19 03/24/19 07:00 07:15 07:30 Temperature Pulse Rate 124 H 121 H 122 H Pulse Rate [ Anterior Bilateral Throughout] Pulse Rate [ From Monitor] Respiratory 21 20 20 Rate Respiratory Rate [Anterior Bilateral Throughout] Blood Pressure 131/68 123/54 111/62 O2 Sat by Pulse 100 100 100 Oximetry 03/24/19 03/24/19 03/24/19 07:45 08:00 08:15 Temperature 99.9 F H Pulse Rate 119 H 120 H 123 H Pulse Rate [ Anterior Bilateral Throughout] Pulse Rate [ 123 H From Monitor] Respiratory 18 20 20 Rate Respiratory Rate [Anterior Bilateral Throughout] Blood Pressure 122/57 121/55 122/57 O2 Sat by Pulse 99 99 99 Oximetry 03/24/19 03/24/19 03/24/19 08:30 08:32 08:45 Temperature Pulse Rate 121 H 125 H 124 H Pulse Rate [ Anterior Bilateral Throughout] Pulse Rate [ From Monitor] Respiratory 17 29 H Rate Respiratory Rate [Anterior Bilateral Throughout] Blood Pressure 122/58 122/58 126/59 O2 Sat by Pulse 99 100 98 Oximetry 03/24/19 03/24/19 03/24/19 09:00 09:15 09:30 Temperature Pulse Rate 125 H 124 H 123 H Pulse Rate [ 118 H Anterior Bilateral Throughout] Pulse Rate [ From Monitor] Respiratory 28 H 24 19 Rate Respiratory 24 Rate [Anterior Bilateral Throughout] Blood Pressure 110/58 106/58 112/61 O2 Sat by Pulse 98 97 98 Oximetry 03/24/19 03/24/19 03/24/19 09:45 10:00 10:15 Temperature Pulse Rate 125 H 124 H 125 H Pulse Rate [ Anterior Bilateral Throughout] Pulse Rate [ From Monitor] Respiratory 17 22 23 Rate Respiratory Rate [Anterior Bilateral Throughout] Blood Pressure 122/68 120/57 112/66 O2 Sat by Pulse 100 98 97 Oximetry 03/24/19 03/24/19 03/24/19 10:30 10:45 11:01 Temperature Pulse Rate 125 H 128 H 128 H Pulse Rate [ Anterior Bilateral Throughout] Pulse Rate [ From Monitor] Respiratory 27 H 28 H 15 Rate Respiratory Rate [Anterior Bilateral Throughout] Blood Pressure 119/74 106/67 117/63 O2 Sat by Pulse 97 97 98 Oximetry 03/24/19 03/24/19 03/24/19 11:10 11:15 11:30 Temperature Pulse Rate 121 H 121 H 124 H Pulse Rate [ Anterior Bilateral Throughout] Pulse Rate [ From Monitor] Respiratory 22 21 Rate Respiratory Rate [Anterior Bilateral Throughout] Blood Pressure 117/63 114/59 116/65 O2 Sat by Pulse 99 98 100 Oximetry 03/24/19 03/24/19 03/24/19 11:45 12:00 12:15 Temperature 99.1 F Pulse Rate 123 H 125 H 123 H Pulse Rate [ Anterior Bilateral Throughout] Pulse Rate [ 122 H From Monitor] Respiratory 19 22 20 Rate Respiratory Rate [Anterior Bilateral Throughout] Blood Pressure 126/62 113/65 125/65 O2 Sat by Pulse 99 98 98 Oximetry 03/24/19 12:30 Temperature Pulse Rate 122 H Pulse Rate [ Anterior Bilateral Throughout] Pulse Rate [ From Monitor] Respiratory 20 Rate Respiratory Rate [Anterior Bilateral Throughout] Blood Pressure 110/58 O2 Sat by Pulse 98 Oximetry - General Appearance General appearance: well-developed, well-nourished, intubated EENT: ATNC, PERRL, mucous membranes dry Neck: no JVD Respiratory: Present: Clear to Ascultation Cardiology: regular, S1S2 Gastrointestinal: normoactive bowel sounds, no tenderness, no distended Integumentary: no rash, warm and dry Neurologic: other (intubated) Musculoskeletal: other (trace pitting edema in BLE) Psychiatric: other (intubated) - Lab 03/24/19 06:00 03/24/19 05:50 Most recent lab results Calcium 6.4 mg/dL (8.4-10.2) L 03/24/19 05:50 Phosphorus 2.00 mg/dL (2.5-4.5) L 03/20/19 17:50 Magnesium 1.70 mg/dL (1.7-2.3) 03/21/19 04:12 53.7 mg/dL (0.1-20.0) H 03/20/19 16:40 116 mmol/L 03/20/19 16:40 36 mg/dL (5-11.8) H 03/20/19 16:40 Medications & Allergies - Medications Allergies/Adverse Reactions: Allergies No Known Allergies Allergy (Unverified 03/19/19 13:11) Home Medications: Home Medications Medication Instructions Recorded Confirmed Last Taken Type Aspirin EC 81 mg PO DAILY 03/20/19 03/20/19 Unknown History Divalproex Sodium 375 mg PO Q8H PRN 03/20/19 03/20/19 Unknown History Metoprolol [Lopressor TAB] 50 mg PO BID 03/20/19 03/20/19 Unknown History Sennosides/Docusate Sodium [Senna 8.6 mg PO BID PRN 03/20/19 03/20/19 Unknown History Plus Tablet] levETIRAcetam [Keppra TAB] 500 mg PO BID 03/20/19 03/20/19 Unknown History Active Medications: Generic Name Dose Route Start Last Admin Trade Name Freq PRN Reason Stop Dose Admin Albuterol 2.5 mg 03/19/19 23:58 Proventil IH Q3HRT PRN Shortness Of Breath Albuterol/Ipratropium 1 ampul 03/20/19 02:00 03/24/19 08:39 Duoneb *Not For Prn Use* IH 1 ampul Q6HRT YUSUF Administration Amiodarone HCl 200 mg 03/22/19 22:00 03/24/19 09:45 Cordarone PO 200 mg BID YUSUF Administration Lipase/Protease/Amylase 1 each 03/22/19 16:03 Pancreaztiti Sargent 10,500 Unit FEEDTUBE PRN PRN For Clogged Feeding Tube Aspirin 81 mg 03/21/19 10:00 03/24/19 09:46 Baby Aspirin PO 81 mg DAILY YUSUF Administration Budesonide 0.5 mg 03/19/19 23:45 03/24/19 08:39 Pulmicort IH 0.5 mg Q12HRT YUSUF Administration Dextrose 50 ml 03/19/19 23:58 03/21/19 16:29 D50w (25gm) Syringe IV 50 ml PRN PRN Administration Hypoglycemia Digoxin 0.125 mg 03/23/19 10:00 03/23/19 10:36 Lanoxin IV 03/29/19 10:01 0.125 mg Q48HR YUSUF Administration Famotidine 20 mg 03/22/19 10:00 03/24/19 09:46 Pepcid PO 20 mg BID YUSUF Administration Fentanyl 50 mcg 03/19/19 12:45 03/19/19 13:26 Sublimaze IV 50 mcg Q10MIN PRN Administration ANALGESIA Hydromorphone HCl 0.5 mg 03/19/19 23:58 Dilaudid IV Q3H PRN Pain , Severe (7-10) Hydrophilic Ointment 1 applic 03/19/19 12:45 Vaseline Lip Therapy TP Q2HR PRN Dry Lips Fentanyl Citrate 2,000 mcg in 100 mls @ 2.835 mls/hr 03/19/19 14:00 03/21/19 11:33 Fentanyl Drip Premix IV 0 mcg/kg/hr TITR YUSUF 0 mls/hr Titration Protocol 1 MCG/KG/HR Metronidazole 500 mg in 100 mls @ 100 mls/hr 03/22/19 14:00 03/24/19 05:59 Flagyl 500 Mg/100 Ml IV 100 mls/hr Q8HR YUSUF Administration Cefepime HCl 2 gm in 100 mls @ 200 mls/hr 03/22/19 10:00 03/24/19 09:45 Maxipime/Ns 2 Gm/100 Ml IV 200 mls/hr Q12HR YUSUF Administration Protocol Insulin Human Lispro 0 unit 03/20/19 00:00 03/24/19 12:39 Humalog SUB-Q Not Given Q6HR [facility] Protocol Metoclopramide HCl 5 mg 03/20/19 00:12 Reglan IV Q6H PRN Nausea And Vomiting Metoprolol Tartrate 2.5 mg 03/23/19 13:17 03/24/19 00:53 Lopressor IV 2.5 mg Q2HR PRN Administration HR >150 Multi-Ingred Cream/Lotion/Oil/Oint 1 applic 03/19/19 12:45 Artificial Tears Ophth Oint OU Q4HR PRN Dry Eye(s) Ondansetron HCl 4 mg 03/19/19 23:58 Zofran IV Q8H PRN Nausea And Vomiting Promethazine HCl 25 mg 03/19/19 23:58 Phenergan WI Q6H PRN N/V IF NPO AND NO IV ACCESS Simple Syrup 15 ml 03/22/19 16:03 03/23/19 07:21 Simple Syrup FEEDTUBE 15 ml PRN PRN Administration Hypoglycemia Simple Syrup 30 ml 03/22/19 16:03 Simple Syrup FEEDTUBE PRN PRN Hypoglycemia Sodium Bicarbonate 325 mg 03/22/19 16:03 Sodium Bicarbonate FEEDTUBE PRN PRN For Clogged Feeding Tube Sodium Chloride 10 ml 03/20/19 10:00 03/24/19 10:14 Sodium Chloride Flush Syringe 10 Ml IV 10 ml BID YUSUF Administration Sodium Chloride 10 ml 03/19/19 23:58 Sodium Chloride Flush Syringe 10 Ml IV PRN PRN LINE FLUSH
--- NOTE | 2019-03-24 14:07 | Progress Note ---
Assessment and Plan Acute metabolic encephalopathy, - cont supportive care, CT head negative Acute hypoxic respiratory s/p ETT placement: consulted CCM, wean off vent as tolerated, scheduled nebs Sepsis due to aspiration pneumonia; treat with iv abx, follow cx Septic shock: off pressor, weaned off, BP now stable Paroxysmal Atrial fib, Now NSR - on amioderone, renally dosed digoxin - Started low dose metoprolol every 6 hours po - Anticoagulation on hold due to anemia and thrombocytopenia HA (acute kidney injury), atn and vasomotor nephrology, poa: IV fluids for now, Nephrology consulted - renal function improved Anemia, due to CD vs other cause - order stool for occult blood, iron study - transfuse one unit PRBC RUL Aspiration pneumonia: Cont IV Cefepime and IV Vancomycin Hypernatremia: improved with Iv fluid Hypomagnesemia: replete and follow as needed Elevated troponin I level NSTEMI II; consulted Cardiology DVT prophylaxis d/w family at bedside full code CCT 34 minutes Brief History Patient is a 73 yo woman without a clear past medical history due to patient presentation of being Altered requiring intubation upon admission. Upon arrival to the emergency room, the patient is obtunded, breathing without difficulty, desaturating, without a gag reflex. Therefore, patient placed on nasal cannula a t 15 L/m, and then intubated without difficulty. Patient is started empirically on the sepsis pathway, with broad-spectrum antibiotics, aggressive IV fluids, and post intubation sedation package. * pCXR FINDINGS: SUPPORT DEVICES: Endotracheal tube is in place in good position above the liam. HEART / MEDIASTINUM: No significant abnormality. LUNGS / PLEURA: There is moderate bibasilar lung consolidation and slight right upper lobe consolidation as well. No edema or effusions. No pneumothorax. ADDITIONAL FINDINGS: No significant additional findings. IMPRESSION: 1. Endotracheal tube in good position. * CT head without contrast IMPRESSION: Encephalomalacia in the entire right cerebral hemisphere Volume loss in the left cerebral hemisphere I do not see an acute parenchymal lesion in the brain. * Abdominal Xray 1 view: FINDINGS: TUBES / LINES: The NG tube has been advanced and now terminates along the lateral margin of the gastric fundus. The side- port of the tube projects over the GE junction. BOWEL GAS PATTERN: No significant abnormality. FREE AIR / EXTRALUMINAL GAS: None seen. ADDITIONAL FINDINGS: Opacities are again noted throughout the right lung. The IVC filter is unchanged in position. IMPRESSION: Interval advancement of the NG tube as above. The side-port of the tube is likely located at the GE junction. The tube may be advanced another 3-4 cm if desired. Hospitalist Physical Gen: critcally ill, thin frail, bmi 20, intubated,sedated on Fentanyl HEENT: NCAT, EOMI, PERRL, OP Clear Neck: supple, no adenopathy, no thyromegaly, no JVD CVS/Heart: RRR, normal S1S2, pulses present bilaterally Chest/Lungs: CTA B, Symmetrical chest expansion, good air entry bilaterally GI/Abdomen: soft, NTND, good bowel sounds, no guarding or rebound /Bladder: no suprapubic tenderness, no CVA or paraspinal tenderness Extermity/Skin: no c/c/e, no obvious rash MSK: intubated Neuro: intubated Psych: intubated Subjective Date of service: 03/24/19 Principal diagnosis: resp fail sepsis Interval history: Pt seen and examined updated at the bedside remained intubated, off pressor Hb 6.9 this am Objective - Constitutional Vitals: Vital Signs - 12hr 03/24/19 03/24/19 03/24/19 02:15 02:30 02:45 Temperature Pulse Rate 116 H 117 H 118 H Pulse Rate [ Anterior Bilateral Throughout] Pulse Rate [ From Monitor] Respiratory 18 22 26 H Rate Respiratory Rate [Anterior Bilateral Throughout] Blood Pressure 130/67 137/65 131/71 O2 Sat by Pulse 97 95 97 Oximetry 03/24/19 03/24/19 03/24/19 03:00 03:15 03:20 Temperature 100.5 F H Pulse Rate 118 H 120 H Pulse Rate [ Anterior Bilateral Throughout] Pulse Rate [ From Monitor] Respiratory 28 H 19 Rate Respiratory Rate [Anterior Bilateral Throughout] Blood Pressure 143/66 145/82 O2 Sat by Pulse 97 99 Oximetry 03/24/19 03/24/19 03/24/19 03:21 03:30 03:45 Temperature Pulse Rate 118 H 120 H 119 H Pulse Rate [ Anterior Bilateral Throughout] Pulse Rate [ From Monitor] Respiratory 30 H 22 Rate Respiratory Rate [Anterior Bilateral Throughout] Blood Pressure 145/82 122/68 135/63 O2 Sat by Pulse 97 98 99 Oximetry 03/24/19 03/24/1919 04:00 04:15 04:30 Temperature Pulse Rate 120 H 123 H 123 H Pulse Rate [ Anterior Bilateral Throughout] Pulse Rate [ From Monitor] Respiratory 27 H 24 31 H Rate Respiratory Rate [Anterior Bilateral Throughout] Blood Pressure 134/63 142/58 132/64 O2 Sat by Pulse 100 100 98 Oximetry 03/24/19 03/24/19 03/24/19 04:45 05:00 05:15 Temperature Pulse Rate 120 H 120 H 121 H Pulse Rate [ Anterior Bilateral Throughout] Pulse Rate [ From Monitor] Respiratory 15 24 18 Rate Respiratory Rate [Anterior Bilateral Throughout] Blood Pressure 135/66 129/62 131/68 O2 Sat by Pulse 100 98 99 Oximetry 03/24/19 03/24/19 03/24/19 05:30 05:45 06:00 Temperature Pulse Rate 120 H 124 H 120 H Pulse Rate [ Anterior Bilateral Throughout] Pulse Rate [ From Monitor] Respiratory 27 H 23 Rate Respiratory Rate [Anterior Bilateral Throughout] Blood Pressure 133/67 124/60 O2 Sat by Pulse 99 97 Oximetry 03/24/19 03/24/19 03/24/19 06:01 06:15 06:30 Temperature Pulse Rate 124 H 120 H 124 H Pulse Rate [ Anterior Bilateral Throughout] Pulse Rate [ From Monitor] Respiratory 19 19 21 Rate Respiratory Rate [Anterior Bilateral Throughout] Blood Pressure 117/57 134/66 125/71 O2 Sat by Pulse 98 99 100 Oximetry 03/24/19 03/24/19 03/24/19 06:45 07:00 07:15 Temperature Pulse Rate 121 H 124 H 121 H Pulse Rate [ Anterior Bilateral Throughout] Pulse Rate [ From Monitor] Respiratory 23 21 20 Rate Respiratory Rate [Anterior Bilateral Throughout] Blood Pressure 122/62 131/68 123/54 O2 Sat by Pulse 100 100 100 Oximetry 03/24/19 03/24/19 03/24/19 07:30 07:45 08:00 Temperature 99.9 F H Pulse Rate 122 H 119 H 120 H Pulse Rate [ Anterior Bilateral Throughout] Pulse Rate [ 123 H From Monitor] Respiratory 20 18 20 Rate Respiratory Rate [Anterior Bilateral Throughout] Blood Pressure 111/62 122/57 121/55 O2 Sat by Pulse 100 99 99 Oximetry 03/24/19 03/24/19 03/24/19 08:15 08:30 08:32 Temperature Pulse Rate 123 H 121 H 125 H Pulse Rate [ Anterior Bilateral Throughout] Pulse Rate [ From Monitor] Respiratory 20 17 Rate Respiratory Rate [Anterior Bilateral Throughout] Blood Pressure 122/57 122/58 122/58 O2 Sat by Pulse 99 99 100 Oximetry 03/24/19 03/24/19 03/24/19 08:45 09:00 09:15 Temperature Pulse Rate 124 H 125 H 124 H Pulse Rate [ 118 H Anterior Bilateral Throughout] Pulse Rate [ From Monitor] Respiratory 29 H 28 H 24 Rate Respiratory 24 Rate [Anterior Bilateral Throughout] Blood Pressure 126/59 110/58 106/58 O2 Sat by Pulse 98 98 97 Oximetry 03/24/19 03/24/19 03/24/19 09:30 09:45 10:00 Temperature Pulse Rate 123 H 125 H 124 H Pulse Rate [ Anterior Bilateral Throughout] Pulse Rate [ From Monitor] Respiratory 19 17 22 Rate Respiratory Rate [Anterior Bilateral Throughout] Blood Pressure 112/61 122/68 120/57 O2 Sat by Pulse 98 100 98 Oximetry 03/24/19 03/24/19 03/24/19 10:15 10:30 10:45 Temperature Pulse Rate 125 H 125 H 128 H Pulse Rate [ Anterior Bilateral Throughout] Pulse Rate [ From Monitor] Respiratory 23 27 H 28 H Rate Respiratory Rate [Anterior Bilateral Throughout] Blood Pressure 112/66 119/74 106/67 O2 Sat by Pulse 97 97 97 Oximetry 03/24/19 03/24/19 03/24/19 11:01 11:10 11:15 Temperature Pulse Rate 128 H 121 H 121 H Pulse Rate [ Anterior Bilateral Throughout] Pulse Rate [ From Monitor] Respiratory 15 22 Rate Respiratory Rate [Anterior Bilateral Throughout] Blood Pressure 117/63 117/63 114/59 O2 Sat by Pulse 98 99 98 Oximetry 03/24/19 03/24/19 03/24/19 11:30 11:45 12:00 Temperature 99.1 F Pulse Rate 124 H 123 H 125 H Pulse Rate [ Anterior Bilateral Throughout] Pulse Rate [ 122 H From Monitor] Respiratory 21 19 22 Rate Respiratory Rate [Anterior Bilateral Throughout] Blood Pressure 116/65 126/62 113/65 O2 Sat by Pulse 100 99 98 Oximetry 03/24/19 03/24/19 12:15 12:30 Temperature Pulse Rate 123 H 122 H Pulse Rate [ Anterior Bilateral Throughout] Pulse Rate [ From Monitor] Respiratory 20 20 Rate Respiratory Rate [Anterior Bilateral Throughout] Blood Pressure 125/65 110/58 O2 Sat by Pulse 98 98 Oximetry - Labs CBC & Chem 7: 03/24/19 06:00 03/24/19 05:50 Labs: Abnormal lab results 03/24/19 03/24/19 03/24/19 Range/Units 03:26 05:50 05:57 WBC (4.5-11.0) K/mm3 RBC (3.65-5.03) M/mm3 Hgb (10.1-14.3) gm/dl Hct (30.3-42.9) % MCV (79-97) fl MCH (28-32) pg Plt Count (140-440) K/mm3 Lymph % (Auto) (13.4-35.0) % [place] % (Auto) (0.0-7.3) % Lymph # (1.2-5.4) K/mm3 [place] # (0.0-0.8) K/mm3 Seg Neutrophils % (40.0-70.0) % Seg Neutrophils # (1.8-7.7) K/mm3 POC ABG pO2 78 L (80-105) Potassium 3.4 L (3.6-5.0) mmol/L Chloride 116.5 H (98-107) mmol/L Carbon Dioxide 21 L (22-30) mmol/L Creatinine 0.5 L (0.7-1.2) mg/dL Glucose 105 H (65-100) mg/dL POC Glucose 127 H (70-105) Calcium 6.4 L (8.4-10.2) mg/dL Crossmatch 03/24/19 03/24/19 03/24/19 Range/Units 06:00 11:30 12:25 WBC 13.6 H (4.5-11.0) K/mm3 RBC 2.08 L (3.65-5.03) M/mm3 Hgb 6.9 L (10.1-14.3) gm/dl Hct 20.5 L (30.3-42.9) % MCV 99 H (79-97) fl MCH 33 H (28-32) pg Plt Count 50 L (140-440) K/mm3 Lymph % (Auto) 8.1 L (13.4-35.0) % [place] % (Auto) 10.0 H (0.0-7.3) % Lymph # 1.1 L (1.2-5.4) K/mm3 [place] # 1.4 H (0.0-0.8) K/mm3 Seg Neutrophils % 80.7 H (40.0-70.0) % Seg Neutrophils # 11.0 H (1.8-7.7) K/mm3 POC ABG pO2 (80-105) Potassium (3.6-5.0) mmol/L Chloride (98-107) mmol/L Carbon Dioxide (22-30) mmol/L Creatinine (0.7-1.2) mg/dL Glucose (65-100) mg/dL POC Glucose 111 H (70-105) Calcium (8.4-10.2) mg/dL Crossmatch See Detail
--- NOTE | 2019-03-24 14:35 | Progress Note ---
Assessment and Plan Acute respiratory failure Sepsis Pneumonia Acute kidney failure Atrial fibrillation with RVR on amiodarone and digoxin Altered mental status Anemia and thrombocytopenia Echocardiogram shows a normal left ventricular systolic function, ejection fraction 60-65%. Recommendations: Continue amiodarone and digoxin for atrial fibrillation. Start low dose metoprolol every 6 hours po Anticoagulation on hold due to anemia and thrombocytopenia Subjective Date of service: 03/24/19 Principal diagnosis: resp fail sepsis Interval history: Patient continues to be unresponsive and intubated She is on HD stable with no pressor support Tele is showing afib with HR 122 Objective Vital Signs Temp Pulse Pulse Pulse Resp Resp BP 03/24/19 12:30 122 H 20 110/58 03/24/19 12:15 123 H 20 125/65 03/24/19 12:00 99.1 F 125 H 122 H 22 113/65 03/24/19 11:45 123 H 19 126/62 03/24/19 11:30 124 H 21 116/65 03/24/19 11:15 121 H 22 114/59 03/24/19 11:10 121 H 117/63 03/24/19 11:01 128 H 15 117/63 03/24/19 10:45 128 H 28 H 106/67 03/24/19 10:30 125 H 27 H 119/74 03/24/19 10:15 125 H 23 112/66 03/24/19 10:00 124 H 22 120/57 03/24/19 09:45 125 H 17 122/68 03/24/19 09:30 123 H 19 112/61 03/24/19 09:15 124 H 24 106/58 03/24/19 09:00 125 H 118 H 28 H 24 110/58 03/24/19 08:45 124 H 29 H 126/59 03/24/19 08:32 125 H 122/58 03/24/19 08:30 121 H 17 122/58 03/24/19 08:15 123 H 20 122/57 03/24/19 08:00 99.9 F H 120 H 123 H 20 121/55 03/24/19 07:45 119 H 18 122/57 03/24/19 07:30 122 H 20 111/62 03/24/19 07:15 121 H 20 123/54 03/24/19 07:00 124 H 21 131/68 03/24/19 06:45 121 H 23 122/62 03/24/19 06:30 124 H 21 125/71 03/24/19 06:15 120 H 19 134/66 03/24/19 06:01 124 H 19 117/57 03/24/19 06:00 120 H 03/24/19 05:45 124 H 23 124/60 03/24/19 05:30 120 H 27 H 133/67 03/24/19 05:15 121 H 18 131/68 03/24/19 05:00 120 H 24 129/62 03/24/19 04:45 120 H 15 135/66 03/24/19 04:30 123 H 31 H 132/64 03/24/19 04:15 123 H 24 142/58 03/24/19 04:00 120 H 27 H 134/63 03/24/19 03:45 119 H 22 135/63 03/24/19 03:30 120 H 30 H 122/68 03/24/19 03:21 118 H 145/82 03/24/19 03:20 100.5 F H 03/24/19 03:15 120 H 19 145/82 03/24/19 03:00 118 H 28 H 143/66 03/24/19 02:45 118 H 26 H 131/71 03/24/19 02:30 117 H 22 137/65 03/24/19 02:15 116 H 18 130/67 03/24/19 02:00 116 H 19 145/72 03/24/19 01:45 113 H 21 136/68 03/24/19 01:40 114 H 26 H 03/24/19 01:30 109 H 24 138/64 03/24/19 01:15 106 H 20 125/63 03/24/19 01:00 105 H 19 155/65 03/24/19 00:53 148 H 138/63 03/24/19 00:45 132 H 25 H 138/63 03/24/19 00:31 172 H 28 H 131/70 03/24/19 00:15 135 H 24 134/76 03/24/19 00:00 133 H 21 131/70 03/23/19 23:45 131 H 22 137/78 03/23/19 23:30 130 H 22 131/68 03/23/19 23:25 152 H 150/73 03/23/19 23:24 100.3 F H 03/23/19 23:15 129 H 21 150/73 03/23/19 23:01 128 H 28 H 150/73 03/23/19 23:00 131 H 30 H 150/73 03/23/19 22:45 128 H 25 H 141/73 03/23/19 22:43 132 H 03/23/19 22:31 132 H 23 136/69 03/23/19 22:15 126 H 22 117/69 03/23/19 22:00 126 H 29 H 124/64 03/23/19 21:45 125 H 23 114/69 03/23/19 21:30 126 H 21 129/61 03/23/19 21:15 128 H 24 117/64 03/23/19 21:00 128 H 35 H 119/63 03/23/19 20:50 128 H 03/23/19 20:45 128 H 23 115/67 03/23/19 20:30 129 H 30 H 120/64 03/23/19 20:15 133 H 23 121/66 03/23/19 20:12 100.5 F H 03/23/19 20:00 132 H 119 H 28 H 18 127/67 03/23/19 19:45 121 H 14 126/67 03/23/19 19:35 119 H 116/66 03/23/19 19:30 121 H 14 116/66 03/23/19 19:15 118 H 17 107/56 03/23/19 19:00 121 H 19 99/55 03/23/19 18:45 120 H 13 108/57 03/23/19 18:30 121 H 22 99/53 03/23/19 18:15 130 H 18 117/60 03/23/19 18:00 123 H 20 117/60 03/23/19 17:45 119 H 17 117/53 03/23/19 17:30 119 H 23 113/55 03/23/19 17:15 119 H 25 H 114/52 03/23/19 17:00 119 H 21 104/50 03/23/19 16:45 119 H 18 96/54 03/23/19 16:30 119 H 20 113/59 03/23/19 16:15 120 H 17 95/59 03/23/19 16:00 99.1 F 121 H 15 98/65 03/23/19 15:45 121 H 19 111/61 03/23/19 15:30 118 H 21 116/56 03/23/19 15:15 119 H 21 100/55 03/23/19 15:00 117 H 20 96/54 03/23/19 14:45 122 H 23 111/55 Pulse Ox 03/24/19 12:30 98 03/24/19 12:15 98 03/24/19 12:00 98 03/24/19 11:45 99 03/24/19 11:30 100 03/24/19 11:15 98 03/24/19 11:10 99 03/24/19 11:01 98 03/24/19 10:45 97 03/24/19 10:30 97 03/24/19 10:15 97 03/24/19 10:00 98 03/24/19 09:45 100 03/24/19 09:30 98 03/24/19 09:15 97 03/24/19 09:00 98 03/24/19 08:45 98 03/24/19 08:32 100 03/24/19 08:30 99 03/24/19 08:15 99 03/24/19 08:00 99 03/24/19 07:45 99 03/24/19 07:30 100 03/24/19 07:15 100 03/24/19 07:00 100 03/24/19 06:45 100 03/24/19 06:30 100 03/24/19 06:15 99 03/24/19 06:01 98 03/24/19 06:00 03/24/19 05:45 97 03/24/19 05:30 99 03/24/19 05:15 99 03/24/19 05:00 98 03/24/19 04:45 100 03/24/19 04:30 98 03/24/19 04:15 100 03/24/19 04:00 100 03/24/19 03:45 99 03/24/19 03:30 98 03/24/19 03:21 97 03/24/19 03:20 03/24/19 03:15 99 03/24/19 03:00 97 03/24/19 02:45 97 03/24/19 02:30 95 03/24/19 02:15 97 03/24/19 02:00 97 03/24/19 01:45 98 03/24/19 01:40 03/24/19 01:30 96 03/24/19 01:15 97 03/24/19 01:00 98 03/24/19 00:53 03/24/19 00:45 97 03/24/19 00:31 97 03/24/19 00:15 98 03/24/19 00:00 97 03/23/19 23:45 98 03/23/19 23:30 97 03/23/19 23:25 97 03/23/19 23:24 03/23/19 23:15 97 03/23/19 23:01 98 03/23/19 23:00 96 03/23/19 22:45 96 03/23/19 22:43 98 03/23/19 22:31 98 03/23/19 22:15 97 03/23/19 22:00 97 03/23/19 21:45 97 03/23/19 21:30 98 03/23/19 21:15 96 03/23/19 21:00 96 03/23/19 20:50 98 03/23/19 20:45 96 03/23/19 20:30 95 03/23/19 20:15 94 03/23/19 20:12 03/23/19 20:00 94 03/23/19 19:45 95 03/23/19 19:35 99 03/23/19 19:30 97 03/23/19 19:15 97 03/23/19 19:00 98 03/23/19 18:45 97 03/23/19 18:30 96 03/23/19 18:15 94 03/23/19 18:00 97 03/23/19 17:45 97 03/23/19 17:30 97 03/23/19 17:15 98 03/23/19 17:00 98 03/23/19 16:45 97 03/23/19 16:30 96 03/23/19 16:15 97 03/23/19 16:00 97 03/23/19 15:45 96 03/23/19 15:30 97 03/23/19 15:15 97 03/23/19 15:00 97 03/23/19 14:45 96 - Physical Examination General: Other (intubated on the vent) Neck: Positive: neck supple Cardiac: Positive: irregularly irregular Lungs: Positive: Ventilated Respirations - Labs and Meds CBC 03/24/19 Range/Units 06:00 WBC 13.6 H (4.5-11.0) K/mm3 RBC 2.08 L (3.65-5.03) M/mm3 Hgb 6.9 L (10.1-14.3) gm/dl Hct 20.5 L (30.3-42.9) % Plt Count 50 L (140-440) K/mm3 Lymph # 1.1 L (1.2-5.4) K/mm3 [place] # 1.4 H (0.0-0.8) K/mm3 Eos # 0.1 (0.0-0.4) K/mm3 Baso # 0.0 (0.0-0.1) K/mm3 Comprehensive Metabolic Panel 03/24/19 Range/Units 05:50 Sodium 144 (137-145) mmol/L Potassium 3.4 L (3.6-5.0) mmol/L Chloride 116.5 H (98-107) mmol/L Carbon Dioxide 21 L (22-30) mmol/L BUN 15 (7-17) mg/dL Creatinine 0.5 L (0.7-1.2) mg/dL Glucose 105 H (65-100) mg/dL Calcium 6.4 L (8.4-10.2) mg/dL - Imaging and Cardiology EKG: report reviewed (sinus tachycardia heart rate of 129/m)
[2019-03-24] MEDS: LOPRESSOR PO SCH ×2 (15:28→21:22)
[2019-03-24 15:47] LABS: Iron 32 ug/dL (37-170); Total Iron Binding Capacity 75 mcg/dL (250-450)
[2019-03-24] MEDS ORDERED: VANCOMYCIN PHARMACY TO DOSE IV SCH ×2 (16:00)
[2019-03-25] MEDS: TYLENOL FEEDTUBE PRN (00:27)
[2019-03-25] MEDS: DUONEB *Not for PRN Use IH SCH ×4 (02:12→20:29)
--- NOTE | 2019-03-25 02:37 | XRay Report ---
CHEST 1 VIEW INDICATION / CLINICAL INFORMATION: follow up respiratory failure. COMPARISON: 03/24/2019 FINDINGS: SUPPORT DEVICES: Endotracheal tube, nasogastric tube, right central venous line HEART / MEDIASTINUM: No significant abnormality. LUNGS / PLEURA: Patchy bilateral airspace disease has worsened slightly since yesterday. No pneumotho rax. ADDITIONAL FINDINGS: No significant additional findings. IMPRESSION: Patchy bilateral airspace disease has worsened slightly since yesterday. Signer Name: Rudi Diaz MD FACR Signed: 03/25/2019 2:32 AM Workstation Name: [id number] [email or web address]
[2019-03-25] MEDS: LOPRESSOR PO SCH ×4 (03:30→20:47)
[2019-03-25] MEDS: FLAGYL 500 MG/100 ML 500 MG/100 ML BAG IV SCH ×3 (05:08→21:53)
[2019-03-25] MEDS: HumaLOG SUB-Q SCH ×3 (05:23→19:27)
[2019-03-25] MEDS: PULMICORT IH SCH ×2 (09:08→20:29)
[2019-03-25] MEDS: MAXIPIME/NS 2 GM/100 ML 2 GM/100 ML BAG IV SCH ×2 (09:56→21:53)
--- NOTE | 2019-03-25 09:56 | Progress Note ---
Assessment and Plan Acute metabolic encephalopathy, - cont supportive care, CT head negative Acute hypoxic respiratory s/p ETT placement: consulted CCM, wean off vent as tolerated, scheduled nebs Sepsis due to aspiration pneumonia; treat with iv abx, follow cx Septic shock: off pressor, weaned off, BP now stable Paroxysmal Atrial fib, Now NSR - on amioderone, renally dosed digoxin - Started low dose metoprolol every 6 hours po - Anticoagulation on hold due to anemia and thrombocytopenia HA (acute kidney injury), atn and vasomotor nephrology, poa: IV fluids for now, Nephrology consulted - renal function improved Anemia, 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 Upon arrival to the emergency room, the patient is obtunded, breathing without difficulty, desaturating, without a gag reflex. Therefore, patient placed on nasal cannula at 15 L/m, and then intubated without difficulty. Patient is started empirically on the sepsis pathway, with broad-spectrum antibiotics, aggressive IV fluids, and post intubation sedation package. * pCXR FINDINGS: SUPPORT DEVICES: Endotracheal tube is in place in good position above the liam. HEART / MEDIASTINUM: No significant abnormality. LUNGS / PLEURA: There is moderate bibasilar lung consolidation and slight right upper lobe consolidation as well. No edema or effusions. No pneumothorax. ADDITIONAL FINDINGS: No significant additional findings. IMPRESSION: 1. Endotracheal tube in good position. * CT head without contrast IMPRESSION: Encephalomalacia in the entire right cerebral hemisphere Volume loss in the left cerebral hemisphere I do not see an acute parenchymal lesion in the brain. * Abdominal Xray 1 view: FINDINGS: TUBES / LINES: The NG tube has been advanced and now terminates along the lateral margin of the gastric fundus. The side- port of the tube projects over the GE junction. BOWEL GAS PATTERN: No significant abnormality. FREE AIR / EXTRALUMINAL GAS: None seen. ADDITIONAL FINDINGS: Opacities are again noted throughout the right lung. The IVC filter is unchanged in position. IMPRESSION: Interval advancement of the NG tube as above. The side-port of the tube is likely located at the GE junction. The tube may be advanced another 3-4 cm if desired. Hospitalist Physical Gen: critcally ill, thin frail, bmi 20, intubated,sedated on Fentanyl HEENT: NCAT, EOMI, PERRL, OP Clear Neck: supple, no adenopathy, no thyromegaly, no JVD CVS/Heart: RRR, normal S1S2, pulses present bilaterally Chest/Lungs: CTA B, Symmetrical chest expansion, good air entry bilaterally GI/Abdomen: soft, NTND, good bowel sounds, no guarding or rebound /Bladder: no suprapubic tenderness, no CVA or paraspinal tenderness Extermity/Skin: no c/c/e, no obvious rash MSK: intubated Neuro: intubated Psych: intubated Subjective Date of service: 03/25/19 Principal diagnosis: resp fail sepsis Interval history: Pt seen and examined updated at the bedside remained intubated, off pressor Objective - Constitutional Vitals: Vital Signs - 12hr 03/24/19 03/24/19 03/24/19 22:00 22:30 23:00 Temperature Pulse Rate 105 H 110 H 113 H Pulse Rate [ Anterior Bilateral Throughout] Pulse Rate [ From Monitor] Respiratory 27 H 22 19 Rate Respiratory Rate [Anterior Bilateral Throughout] Blood Pressure 114/63 113/68 116/66 O2 Sat by Pulse 95 97 90 Oximetry 03/24/19 03/24/19 03/24/19 23:09 23:10 23:26 Temperature 102.2 F H Pulse Rate 113 H 110 H Pulse Rate [ Anterior Bilateral Throughout] Pulse Rate [ 112 H From Monitor] Respiratory 17 17 Rate Respiratory Rate [Anterior Bilateral Throughout] Blood Pressure 116/66 116/66 O2 Sat by Pulse 100 98 Oximetry 03/24/19 03/24/19 03/25/19 23:30 23:39 00:00 Temperature Pulse Rate 110 H 114 H 115 H Pulse Rate [ Anterior Bilateral Throughout] Pulse Rate [ From Monitor] Respiratory 22 29 H 29 H Rate Respiratory Rate [Anterior Bilateral Throughout] Blood Pressure 101/55 101/55 96/60 O2 Sat by Pulse 97 97 97 Oximetry 03/25/19 03/25/19 03/25/19 00:27 00:31 01:00 Temperature Pulse Rate 122 H 111 H Pulse Rate [ Anterior Bilateral Throughout] Pulse Rate [ From Monitor] Respiratory 31 H 32 H 28 H Rate Respiratory Rate [Anterior Bilateral Throughout] Blood Pressure 94/67 99/55 O2 Sat by Pulse 93 97 Oximetry 03/25/19 03/25/19 03/25/19 01:27 01:30 01:40 Temperature Pulse Rate 107 H 107 H Pulse Rate [ Anterior Bilateral Throughout] Pulse Rate [ 109 H From Monitor] Respiratory 22 26 H 24 Rate Respiratory Rate [Anterior Bilateral Throughout] Blood Pressure 89/48 O2 Sat by Pulse 96 100 Oximetry 03/25/19 03/25/19 03/25/19 02:00 02:05 02:30 Temperature Pulse Rate 108 H 112 H Pulse Rate [ 106 H Anterior Bilateral Throughout] Pulse Rate [ From Monitor] Respiratory 29 H 31 H Rate Respiratory 33 H Rate [Anterior Bilateral Throughout] Blood Pressure 97/39 102/45 O2 Sat by Pulse 95 97 Oximetry 03/25/19 03/25/19 03/25/19 03:00 03:30 04:00 Temperature 101 F H Pulse Rate 121 H 109 H 110 H Pulse Rate [ Anterior Bilateral Throughout] Pulse Rate [ From Monitor] Respiratory 26 H 28 H 21 Rate Respiratory Rate [Anterior Bilateral Throughout] Blood Pressure 97/39 108/49 100/41 O2 Sat by Pulse 96 95 96 Oximetry 03/25/19 03/25/19 03/25/19 04:30 05:00 05:30 Temperature Pulse Rate 109 H 111 H 103 H Pulse Rate [ Anterior Bilateral Throughout] Pulse Rate [ From Monitor] Respiratory 24 45 H 18 Rate Respiratory Rate [Anterior Bilateral Throughout] Blood Pressure 90/45 108/49 97/46 O2 Sat by Pulse 98 98 97 Oximetry 03/25/19 03/25/19 03/25/19 05:32 06:00 08:00 Temperature 99.7 F H Pulse Rate 99 H 95 H 100 H Pulse Rate [ Anterior Bilateral Throughout] Pulse Rate [ From Monitor] Respiratory 22 Rate Respiratory Rate [Anterior Bilateral Throughout] Blood Pressure 97/46 96/45 100/48 O2 Sat by Pulse 100 99 99 Oximetry - Labs CBC & Chem 7: 03/27/19 09:04 03/27/19 09:04 Labs: Abnormal lab results 07/26/19 07/26/19 07/26/19 Range/Units 11:30 12:25 14:25 POC Glucose 111 H (70-105) Iron 32 L (37-170) ug/dL TIBC 75 L (250-450) mcg/dL Crossmatch See Detail 03/25/19 Range/Units 05:20 POC Glucose 111 H (70-105) Iron (37-170) ug/dL TIBC (250-450) mcg/dL Crossmatch
[2019-03-25] MEDS: CORDARONE PO SCH ×2 (09:57→21:53)
[2019-03-25] MEDS: VANCOMYCIN/NS 1 GM/250 ML 1 GM/250 ML BAG IV SCH (09:57)
[2019-03-25] MEDS: PEPCID PO SCH ×2 (09:57→21:53)
[2019-03-25] MEDS: SODIUM CHLORIDE FLUSH SYRINGE 10 ML IV SCH ×2 (09:59→21:53)
[2019-03-25] MEDS: BABY ASPIRIN PO SCH (09:59)
[2019-03-25] MEDS ORDERED: KEPPRA PO SCH (10:00)
[2019-03-25 10:34] LABS: Hematocrit 24.3 % (30.3-42.9); Hemoglobin 8.1 gm/dl (10.1-14.3); Mean Corpuscular HGB Conc 33 % (30-34); Mean Corpuscular Volume 96 fl (79-97); Red Blood Count 2.54 M/mm3 (3.65-5.03); Red Cell Distribution Width 17.3 % (13.2-15.2)
[2019-03-25 10:37] LABS: Platelet Count 44 K/mm3 (140-440)
--- NOTE | 2019-03-25 10:48 | Progress Note ---
Assessment and Plan Acute respiratory failure CXR showing volume overload Sepsis Pneumonia Acute kidney failure Atrial fibrillation with RVR on amiodarone and po metoprolol with holding parameters Altered mental status Anemia and thrombocytopenia Echocardiogram shows a normal left ventricular systolic function, ejection fraction 60-65%. Recommendations: Continue amiodarone and metoprolol for atrial fibrillation with holding parameters Start IV lasix drip at 2.5 mg/hr and titrate according to UO and as BP permits Prn Levophed to maintain MAP > 65 Anticoagulation on hold due to anemia and thrombocytopenia Subjective Date of service: 03/25/19 Principal diagnosis: resp fail sepsis Interval history: Patient continues to be unresponsive and intubated She is borderline hypotensive with no pressor support Tele is showing afib with HR 90 Objective Vital Signs Temp Pulse Pulse Pulse Resp Resp BP 03/25/19 10:30 97 H 26 H 99/49 03/25/19 10:00 96 H 20 96/45 03/25/19 09:58 97 H 100/49 03/25/19 09:30 95 H 24 95/46 03/25/19 09:00 94 H 21 100/48 03/25/19 08:30 94 H 26 H 87/44 03/25/19 08:00 99.7 F H 95 H 20 82/42 03/25/19 07:30 97 H 23 102/50 03/25/19 07:00 96 H 25 H 95/51 03/25/19 06:30 95 H 22 99/44 03/25/19 06:00 95 H 22 96/45 03/25/19 05:32 99 H 97/46 03/25/19 05:30 103 H 18 97/46 03/25/19 05:00 111 H 45 H 108/49 03/25/19 04:30 109 H 24 90/45 03/25/19 04:00 110 H 21 100/41 03/25/19 03:30 101 F H 109 H 28 H 108/49 03/25/19 03:00 121 H 26 H 97/39 03/25/19 02:30 112 H 31 H 102/45 03/25/19 02:05 106 H 33 H 03/25/19 02:00 108 H 29 H 97/39 03/25/19 01:40 107 H 109 H 24 03/25/19 01:30 107 H 26 H 89/48 03/25/19 01:27 22 03/25/19 01:00 111 H 28 H 99/55 03/25/19 00:31 122 H 32 H 94/67 03/25/19 00:27 31 H 03/25/19 00:00 115 H 29 H 96/60 03/24/19 23:39 114 H 29 H 101/55 03/24/19 23:30 110 H 22 101/55 03/24/19 23:26 110 H 17 116/66 03/24/19 23:10 113 H 112 H 17 116/66 03/24/19 23:09 102.2 F H 03/24/19 23:00 113 H 19 116/66 03/24/19 22:30 110 H 22 113/68 03/24/19 22:00 105 H 27 H 114/63 03/24/19 21:30 112 H 112 H 18 136/61 03/24/19 21:22 134 H 134/63 03/24/19 21:20 137 H 134/63 03/24/19 21:00 126 H 31 H 134/63 03/24/19 20:31 122 H 17 128/65 03/24/19 20:20 125 H 24 03/24/19 20:15 123 H 144/76 03/24/19 20:00 117 H 23 144/76 03/24/19 19:56 99 F 03/24/19 19:30 114 H 112 H 27 H 132/67 03/24/19 19:00 114 H 29 H 153/71 03/24/19 18:30 111 H 21 135/72 03/24/19 18:00 109 H 31 H 147/76 03/24/19 17:31 107 H 23 131/83 03/24/19 17:02 99.2 F 106 H 29 H 137/68 03/24/19 17:01 104 H 18 137/68 03/24/19 16:32 99.4 F 102 H 28 H 140/71 03/24/19 16:30 100 H 27 H 140/71 03/24/19 16:15 103 H 28 H 129/80 03/24/19 16:02 99.8 F H 107 H 28 H 148/70 03/24/19 16:00 99.4 F 104 H 107 H 25 H 148/70 03/24/19 15:53 107 H 142/96 03/24/19 15:45 118 H 17 142/96 03/24/19 15:32 100.0 F H 127 H 30 H 141/62 03/24/19 15:30 125 H 20 141/62 03/24/19 15:28 125 H 135/68 03/24/19 15:15 128 H 32 H 135/68 03/24/19 15:02 99.8 F H 125 H 29 H 126/87 03/24/19 15:00 126 H 21 126/87 03/24/19 14:47 99.6 F 119 H 29 H 122/66 03/24/19 14:45 127 H 26 H 122/66 03/24/19 14:40 128 H 27 H 03/24/19 14:30 126 H 27 H 134/69 03/24/19 14:15 123 H 27 H 132/57 03/24/19 14:00 125 H 27 H 124/58 03/24/19 13:45 123 H 19 110/64 03/24/19 13:30 122 H 23 100/61 03/24/19 13:15 122 H 22 110/64 03/24/19 13:00 123 H 22 115/58 03/24/19 12:45 123 H 23 109/62 03/24/19 12:30 122 H 20 110/58 03/24/19 12:15 123 H 20 125/65 03/24/19 12:00 99.1 F 125 H 122 H 22 113/65 03/24/19 11:45 123 H 19 126/62 03/24/19 11:30 124 H 21 116/65 03/24/19 11:15 121 H 22 114/59 03/24/19 11:10 121 H 117/63 03/24/19 11:01 128 H 15 117/63 Pulse Ox 03/25/19 10:30 97 03/25/19 10:00 99 03/25/19 09:58 03/25/19 09:30 98 03/25/19 09:00 99 03/25/19 08:30 100 03/25/19 08:00 100 03/25/19 07:30 98 03/25/19 07:00 100 03/25/19 06:30 98 03/25/19 06:00 99 03/25/19 05:32 100 03/25/19 05:30 97 03/25/19 05:00 98 03/25/19 04:30 98 03/25/19 04:00 96 03/25/19 03:30 95 03/25/19 03:00 96 03/25/19 02:30 97 03/25/19 02:05 03/25/19 02:00 95 03/25/19 01:40 100 03/25/19 01:30 96 03/25/19 01:27 03/25/19 01:00 97 03/25/19 00:31 93 03/25/19 00:27 03/25/19 00:00 97 03/24/19 23:39 97 03/24/19 23:30 97 03/24/19 23:26 98 03/24/19 23:10 100 03/24/19 23:09 03/24/19 23:00 90 03/24/19 22:30 97 03/24/19 22:00 95 03/24/19 21:30 97 03/24/19 21:22 03/24/19 21:20 03/24/19 21:00 94 03/24/19 20:31 97 03/24/19 20:20 03/24/19 20:15 96 03/24/19 20:00 95 03/24/19 19:56 03/24/19 19:30 97 03/24/19 19:00 96 03/24/19 18:30 97 03/24/19 18:00 96 03/24/19 17:31 97 03/24/19 17:02 98 03/24/19 17:01 97 03/24/19 16:32 100 03/24/19 16:30 98 03/24/19 16:15 99 03/24/19 16:02 98 03/24/19 16:00 98 03/24/19 15:53 98 03/24/19 15:45 96 03/24/19 15:32 100 03/24/19 15:30 97 03/24/19 15:28 03/24/19 15:15 97 03/24/19 15:02 99 03/24/19 15:00 97 03/24/19 14:47 98 03/24/19 14:45 98 03/24/19 14:40 03/24/19 14:30 97 03/24/19 14:15 99 03/24/19 14:00 98 03/24/19 13:45 98 03/24/19 13:30 99 03/24/19 13:15 98 03/24/19 13:00 98 03/24/19 12:45 98 03/24/19 12:30 98 03/24/19 12:15 98 03/24/19 12:00 98 03/24/19 11:45 99 03/24/19 11:30 100 03/24/19 11:15 98 03/24/19 11:10 99 03/24/19 11:01 98 - Physical Examination General: Other (intubated on the vent) Neck: Positive: neck supple Cardiac: Positive: irregularly irregular Lungs: Positive: Ventilated Respirations - Labs and Meds CBC 03/25/19 Range/Units 10:00 WBC 13.4 H (4.5-11.0) K/mm3 RBC 2.54 L (3.65-5.03) M/mm3 Hgb 8.1 L (10.1-14.3) gm/dl Hct 24.3 L (30.3-42.9) % Plt Count 44 L (140-440) K/mm3 - Imaging and Cardiology EKG: report reviewed (sinus tachycardia heart rate of 129/m)
[2019-03-25 10:59] LABS: BUN/Creatinine Ratio 33; Blood Urea Nitrogen 20 mg/dL (7-17); Calcium 7.2 mg/dL (8.4-10.2); Hemolysis Index 5
[2019-03-25] MEDS: LASIX 100 MG in NACL 0.9% 90 ML IV SCH (11:57)
--- NOTE | 2019-03-25 13:41 | Progress Note ---
Assessment and Plan 73 y/o female found unresponsive now intubated and septic, etiology thought secondary to pneumonia with anemia and thrombocytopenia 1. Continue ventilator support. 2. Patient currently on keppra. No documented evidence of seizure. Spoke with pharmacy and nurse reported seizure like activity. Going to stop for now. Did not see EEG or neuro consult. 3. ID following, currently on cefepime, vanco and flagyl 4. Mild pulmonary HTN, currently does not appear to an issue. Agree with diuresis.. 5. Hold on DVT prophylaxix, continue GI prophy 6. Overall prognosis is guarded Total critical care time 31 minute Subjective Date of service: 03/25/19 Principal diagnosis: resp fail sepsis Interval history: Patient more awake and responsive. Open eyes on verbal stimulation. Remain intubated on mechanical ventilator with FiO2 of 30%. On Lasix drip for edema per cardiology. Suspect volume overload/congestive heart failure. Remain on antibiotic per ID. Objective Vital Signs - 12hr 03/25/19 03/25/19 03/25/19 01:40 02:00 02:05 Temperature Pulse Rate 107 H 108 H Pulse Rate [ 106 H Anterior Bilateral Throughout] Pulse Rate [ 109 H From Monitor] Respiratory 24 29 H Rate Respiratory 33 H Rate [Anterior Bilateral Throughout] Blood Pressure 97/39 O2 Sat by Pulse 100 95 Oximetry 03/25/19 03/25/19 03/25/19 02:30 03:00 03:30 Temperature 101 F H Pulse Rate 112 H 121 H 109 H Pulse Rate [ Anterior Bilateral Throughout] Pulse Rate [ From Monitor] Respiratory 31 H 26 H 28 H Rate Respiratory Rate [Anterior Bilateral Throughout] Blood Pressure 102/45 97/39 108/49 O2 Sat by Pulse 97 96 95 Oximetry 03/25/19 03/25/19 03/25/19 04:00 04:30 05:00 Temperature Pulse Rate 110 H 109 H 111 H Pulse Rate [ Anterior Bilateral Throughout] Pulse Rate [ From Monitor] Respiratory 21 24 45 H Rate Respiratory Rate [Anterior Bilateral Throughout] Blood Pressure 100/41 90/45 108/49 O2 Sat by Pulse 96 98 98 Oximetry 03/25/19 03/25/19 03/25/19 05:30 05:32 06:00 Temperature Pulse Rate 103 H 99 H 95 H Pulse Rate [ Anterior Bilateral Throughout] Pulse Rate [ From Monitor] Respiratory 18 22 Rate Respiratory Rate [Anterior Bilateral Throughout] Blood Pressure 97/46 97/46 96/45 O2 Sat by Pulse 97 100 99 Oximetry 03/25/19 03/25/19 03/25/19 06:30 07:00 07:30 Temperature Pulse Rate 95 H 96 H 97 H Pulse Rate [ Anterior Bilateral Throughout] Pulse Rate [ From Monitor] Respiratory 22 25 H 23 Rate Respiratory Rate [Anterior Bilateral Throughout] Blood Pressure 99/44 95/51 102/50 O2 Sat by Pulse 98 100 98 Oximetry 03/25/19 03/25/19 03/25/19 08:00 08:30 09:00 Temperature 99.7 F H Pulse Rate 95 H 94 H 94 H Pulse Rate [ Anterior Bilateral Throughout] Pulse Rate [ From Monitor] Respiratory 20 26 H 21 Rate Respiratory Rate [Anterior Bilateral Throughout] Blood Pressure 82/42 87/44 100/48 O2 Sat by Pulse 100 100 99 Oximetry 03/25/19 03/25/19 03/25/19 09:30 09:58 10:00 Temperature Pulse Rate 95 H 97 H 96 H Pulse Rate [ Anterior Bilateral Throughout] Pulse Rate [ From Monitor] Respiratory 24 20 Rate Respiratory Rate [Anterior Bilateral Throughout] Blood Pressure 95/46 100/49 96/45 O2 Sat by Pulse 98 99 Oximetry 03/25/19 03/25/19 03/25/19 10:30 11:00 11:30 Temperature Pulse Rate 97 H 107 H 107 H Pulse Rate [ Anterior Bilateral Throughout] Pulse Rate [ From Monitor] Respiratory 26 H 19 22 Rate Respiratory Rate [Anterior Bilateral Throughout] Blood Pressure 99/49 99/49 101/53 O2 Sat by Pulse 97 97 Oximetry 03/25/19 03/25/19 03/25/19 11:35 12:00 12:30 Temperature 98.9 F Pulse Rate 98 H 98 H 101 H Pulse Rate [ Anterior Bilateral Throughout] Pulse Rate [ From Monitor] Respiratory 22 24 Rate Respiratory Rate [Anterior Bilateral Throughout] Blood Pressure 129/68 102/52 110/55 O2 Sat by Pulse 99 99 98 Oximetry 03/25/19 13:00 Temperature Pulse Rate 106 H Pulse Rate [ Anterior Bilateral Throughout] Pulse Rate [ From Monitor] Respiratory 23 Rate Respiratory Rate [Anterior Bilateral Throughout] Blood Pressure 109/55 O2 Sat by Pulse 97 Oximetry Constitutional: lethargic, other (intubated on vent min responsive off sedation) Eyes: non-icteric ENT: other (intubated ) Neck: supple Effort: mildly labored, other (poor efforts ) Ascultation: Bilateral: diminished breath sounds (grossly clear ), rales (coarse bilat ) Percussion: Bilateral: not dull, dull Cardiovascular: other (tachy AF ) Gastrointestinal: hypoactive bowel sounds Integumentary: normal Extremities: anasarca Neurologic: unable to assess CBC and BMP: 03/25/19 10:00 03/25/19 10:11 ABG, PT/INR, D-dimer: ABG POC ABG pH 7.411 (7.35-7.45) 03/25/19 05:40 POC ABG pO2 83 (80-105) 03/25/19 05:40 POC ABG HCO3 17.7 (22-26 mml/L) 03/25/19 05:40 POC ABG Total CO2 19 (23-27mmol/L) 03/25/19 05:40 POC ABG O2 Sat 97 03/25/19 05:40 PT/INR, D-dimer PT 21.4 Sec. (12.2-14.9) H 03/22/19 13:45 INR 1.90 (0.87-1.13) H 03/22/19 13:45 Abnormal lab findings: Abnormal Labs 03/19/19 03/19/19 03/19/19 12:59 12:59 12:59 WBC RBC 3.44 L Hgb Hct MCV 101 H MCH 34 H RDW Plt Count 98 L Lymph % (Auto) [place] % (Auto) Lymph # [place] # Seg Neutrophils % Seg Neuts % (Manual) 11.0 L Lymphocytes % (Manual) Monocytes % (Manual) 10.0 H Nucleated RBC % 1.0 H Seg Neutrophils # Seg Neutrophils # Man 0.6 L Lymphocytes # (Manual) PT INR APTT POC ABG pH POC ABG pCO2 POC ABG pO2 Sodium 149 H Potassium Chloride 109.4 H Carbon Dioxide BUN 51 H Creatinine 3.2 H Glucose 58 L POC Glucose Lactic Acid 7.60 H* Calcium 7.8 L Phosphorus Magnesium 1.60 L Iron TIBC AST 75 H Total Creatine Kinase 1499 H Troponin T 0.109 H* Total Protein 5.2 L Albumin 1.7 L Prealbumin LDL Cholesterol Direct 22 L HDL Cholesterol 31 L Vitamin B12 TSH PTH Intact Urine Creatinine Urine Total Protein Salicylates Acetaminophen Crossmatch 03/19/19 03/19/19 03/19/19 12:59 12:59 14:48 WBC RBC Hgb Hct MCV MCH RDW Plt Count Lymph % (Auto) [place] % (Auto) Lymph # [place] # Seg Neutrophils % Seg Neuts % (Manual) Lymphocytes % (Manual) Monocytes % (Manual) Nucleated RBC % Seg Neutrophils # Seg Neutrophils # Man Lymphocytes # (Manual) PT INR APTT POC ABG pH POC ABG pCO2 POC ABG pO2 Sodium Potassium Chloride Carbon Dioxide BUN Creatinine Glucose POC Glucose 44 L Lactic Acid Calcium Phosphorus Magnesium Iron TIBC AST Total Creatine Kinase Troponin T Total Protein Albumin Prealbumin LDL Cholesterol Direct HDL Cholesterol Vitamin B12 TSH PTH Intact Urine Creatinine Urine Total Protein Salicylates < 0.3 L Acetaminophen < 5.0 L Crossmatch 03/19/19 03/19/19 03/19/19 15:33 15:52 16:26 WBC RBC Hgb Hct MCV MCH RDW Plt Count Lymph % (Auto) [place] % (Auto) Lymph # [place] # Seg Neutrophils % Seg Neuts % (Manual) Lymphocytes % (Manual) Monocytes % (Manual) Nucleated RBC % Seg Neutrophils # Seg Neutrophils # Man Lymphocytes # (Manual) PT INR APTT POC ABG pH POC ABG pCO2 POC ABG pO2 Sodium Potassium Chloride Carbon Dioxide BUN Creatinine Glucose POC Glucose 228 H 231 H Lactic Acid Calcium Phosphorus Magnesium Iron TIBC AST Total Creatine Kinase Troponin T Total Protein Albumin Prealbumin LDL Cholesterol Direct HDL Cholesterol Vitamin B12 TSH PTH Intact Urine Creatinine 31.8 H Urine Total Protein Salicylates Acetaminophen Crossmatch 03/19/19 03/19/19 03/19/19 16:38 17:14 18:43 WBC RBC Hgb Hct MCV MCH RDW Plt Count Lymph % (Auto) [place] % (Auto) Lymph # [place] # Seg Neutrophils % Seg Neuts % (Manual) Lymphocytes % (Manual) Monocytes % (Manual) Nucleated RBC % Seg Neutrophils # Seg Neutrophils # Man Lymphocytes # (Manual) PT INR APTT POC ABG pH 7.196 L POC ABG pCO2 30.8 L POC ABG pO2 Sodium Potassium Chloride Carbon Dioxide BUN Creatinine Glucose POC Glucose 235 H Lactic Acid 8.10 H* Calcium Phosphorus Magnesium Iron TIBC AST Total Creatine Kinase Troponin T Total Protein Albumin Prealbumin LDL Cholesterol Direct HDL Cholesterol Vitamin B12 TSH PTH Intact Urine Creatinine Urine Total Protein Salicylates Acetaminophen Crossmatch 03/19/19 03/19/19 03/19/19 18:52 20:00 20:56 WBC RBC Hgb Hct MCV MCH RDW Plt Count Lymph % (Auto) [place] % (Auto) Lymph # [place] # Seg Neutrophils % Seg Neuts % (Manual) Lymphocytes % (Manual) Monocytes % (Manual) Nucleated RBC % Seg Neutrophils # Seg Neutrophils # Man Lymphocytes # (Manual) PT INR APTT POC ABG pH POC ABG pCO2 POC ABG pO2 Sodium Potassium Chloride Carbon Dioxide BUN Creatinine Glucose POC Glucose 240 H 117 H Lactic Acid 5.90 H* Calcium Phosphorus Magnesium Iron TIBC AST Total Creatine Kinase Troponin T Total Protein Albumin Prealbumin LDL Cholesterol Direct HDL Cholesterol Vitamin B12 TSH PTH Intact Urine Creatinine Urine Total Protein Salicylates Acetaminophen Crossmatch 03/19/19 03/19/19 03/19/19 21:19 22:07 23:00 WBC RBC Hgb Hct MCV MCH RDW Plt Count Lymph % (Auto) [place] % (Auto) Lymph # [place] # Seg Neutrophils % Seg Neuts % (Manual) Lymphocytes % (Manual) Monocytes % (Manual) Nucleated RBC % Seg Neutrophils # Seg Neutrophils # Man Lymphocytes # (Manual) PT INR APTT POC ABG pH POC ABG pCO2 POC ABG pO2 Sodium Potassium Chloride Carbon Dioxide BUN Creatinine Glucose POC Glucose < 40 L 136 H Lactic Acid 6.10 H* Calcium Phosphorus Magnesium Iron TIBC AST Total Creatine Kinase Troponin T Total Protein Albumin Prealbumin LDL Cholesterol Direct HDL Cholesterol Vitamin B12 TSH PTH Intact Urine Creatinine Urine Total Protein Salicylates Acetaminophen Crossmatch 03/20/19 03/20/19 03/20/19 00:05 01:38 02:23 WBC RBC Hgb Hct MCV MCH RDW Plt Count Lymph % (Auto) [place] % (Auto) Lymph # [place] # Seg Neutrophils % Seg Neuts % (Manual) Lymphocytes % (Manual) Monocytes % (Manual) Nucleated RBC % Seg Neutrophils # Seg Neutrophils # Man Lymphocytes # (Manual) PT INR APTT POC ABG pH POC ABG pCO2 POC ABG pO2 Sodium Potassium Chloride Carbon Dioxide BUN Creatinine Glucose POC Glucose 68 L 153 H 127 H Lactic Acid Calcium Phosphorus Magnesium Iron TIBC AST Total Creatine Kinase Troponin T Total Protein Albumin Prealbumin LDL Cholesterol Direct HDL Cholesterol Vitamin B12 TSH PTH Intact Urine Creatinine Urine Total Protein Salicylates Acetaminophen Crossmatch 03/20/19 03/20/19 03/20/19 03:12 04:31 04:41 WBC RBC Hgb Hct MCV MCH RDW Plt Count Lymph % (Auto) [place] % (Auto) Lymph # [place] # Seg Neutrophils % Seg Neuts % (Manual) Lymphocytes % (Manual) Monocytes % (Manual) Nucleated RBC % Seg Neutrophils # Seg Neutrophils # Man Lymphocytes # (Manual) PT INR APTT POC ABG pH POC ABG pCO2 POC ABG pO2 53 L 65 L Sodium Potassium Chloride Carbon Dioxide BUN Creatinine Glucose POC Glucose 109 H Lactic Acid Calcium Phosphorus Magnesium Iron TIBC AST Total Creatine Kinase Troponin T Total Protein Albumin Prealbumin LDL Cholesterol Direct HDL Cholesterol Vitamin B12 TSH PTH Intact Urine Creatinine Urine Total Protein Salicylates Acetaminophen Crossmatch 03/20/19 03/20/19 03/20/19 05:50 07:29 08:14 WBC RBC Hgb Hct MCV MCH RDW Plt Count Lymph % (Auto) [place] % (Auto) Lymph # [place] # Seg Neutrophils % Seg Neuts % (Manual) Lymphocytes % (Manual) Monocytes % (Manual) Nucleated RBC % Seg Neutrophils # Seg Neutrophils # Man Lymphocytes # (Manual) PT INR APTT POC ABG pH POC ABG pCO2 POC ABG pO2 Sodium Potassium Chloride Carbon Dioxide BUN Creatinine Glucose 61 L POC Glucose 47 L 153 H Lactic Acid Calcium Phosphorus Magnesium 1.60 L Iron TIBC AST Total Creatine Kinase Troponin T Total Protein Albumin Prealbumin LDL Cholesterol Direct HDL Cholesterol Vitamin B12 TSH PTH Intact Urine Creatinine Urine Total Protein Salicylates Acetaminophen Crossmatch 03/20/19 03/20/19 03/20/19 08:23 08:23 10:59 WBC RBC Hgb Hct MCV MCH RDW Plt Count Lymph % (Auto) [place] % (Auto) Lymph # [place] # Seg Neutrophils % Seg Neuts % (Manual) Lymphocytes % (Manual) Monocytes % (Manual) Nucleated RBC % Seg Neutrophils # Seg Neutrophils # Man Lymphocytes # (Manual) PT INR APTT POC ABG pH POC ABG pCO2 POC ABG pO2 Sodium Potassium Chloride Carbon Dioxide BUN Creatinine Glucose 101 H POC Glucose 233 H Lactic Acid 9.70 H* Calcium Phosphorus Magnesium Iron TIBC AST Total Creatine Kinase Troponin T Total Protein Albumin Prealbumin 0.052 L LDL Cholesterol Direct HDL Cholesterol Vitamin B12 TSH PTH Intact Urine Creatinine Urine Total Protein Salicylates Acetaminophen Crossmatch 03/20/19 03/20/19 03/20/19 12:23 16:10 16:40 WBC RBC Hgb Hct MCV MCH RDW Plt Count Lymph % (Auto) [place] % (Auto) Lymph # [place] # Seg Neutrophils % Seg Neuts % (Manual) Lymphocytes % (Manual) Monocytes % (Manual) Nucleated RBC % Seg Neutrophils # Seg Neutrophils # Man Lymphocytes # (Manual) PT INR APTT POC ABG pH POC ABG pCO2 POC ABG pO2 Sodium Potassium Chloride Carbon Dioxide BUN Creatinine Glucose POC Glucose 135 H 171 H Lactic Acid Calcium Phosphorus Magnesium Iron TIBC AST Total Creatine Kinase Troponin T Total Protein Albumin Prealbumin LDL Cholesterol Direct HDL Cholesterol Vitamin B12 TSH PTH Intact Urine Creatinine 53.7 H Urine Total Protein 36 H Salicylates Acetaminophen Crossmatch 03/20/19 03/20/19 03/20/19 16:57 17:38 17:50 WBC RBC Hgb Hct MCV MCH RDW Plt Count Lymph % (Auto) [place] % (Auto) Lymph # [place] # Seg Neutrophils % Seg Neuts % (Manual) Lymphocytes % (Manual) Monocytes % (Manual) Nucleated RBC % Seg Neutrophils # Seg Neutrophils # Man Lymphocytes # (Manual) PT INR APTT POC ABG pH POC ABG pCO2 POC ABG pO2 Sodium Potassium Chloride Carbon Dioxide BUN Creatinine Glucose POC Glucose 152 H 147 H Lactic Acid 9.90 H* Calcium Phosphorus Magnesium Iron TIBC AST Total Creatine Kinase Troponin T Total Protein Albumin Prealbumin LDL Cholesterol Direct HDL Cholesterol Vitamin B12 TSH PTH Intact Urine Creatinine Urine Total Protein Salicylates Acetaminophen Crossmatch 03/20/19 03/20/19 03/20/19 17:50 17:50 17:50 WBC RBC 2.92 L Hgb 10.0 L Hct 29.3 L MCV 100 H MCH 34 H RDW Plt Count 81 L Lymph % (Auto) [place] % (Auto) Lymph # [place] # Seg Neutrophils % Seg Neuts % (Manual) Lymphocytes % (Manual) Monocytes % (Manual) Nucleated RBC % Seg Neutrophils # Seg Neutrophils # Man Lymphocytes # (Manual) PT INR APTT POC ABG pH POC ABG pCO2 POC ABG pO2 Sodium Potassium 2.8 L* D Chloride Carbon Dioxide BUN 30 H Creatinine 1.6 H Glucose 107 H POC Glucose Lactic Acid Calcium 6.9 L Phosphorus 2.00 L Magnesium Iron TIBC AST Total Creatine Kinase Troponin T Total Protein Albumin Prealbumin LDL Cholesterol Direct HDL Cholesterol Vitamin B12 TSH PTH Intact 171.6 H Urine Creatinine Urine Total Protein Salicylates Acetaminophen Crossmatch 03/20/19 03/21/19 03/21/19 21:12 00:30 04:12 WBC RBC Hgb Hct MCV MCH RDW Plt Count Lymph % (Auto) [place] % (Auto) Lymph # [place] # Seg Neutrophils % Seg Neuts % (Manual) Lymphocytes % (Manual) Monocytes % (Manual) Nucleated RBC % Seg Neutrophils # Seg Neutrophils # Man Lymphocytes # (Manual) PT INR APTT POC ABG pH POC ABG pCO2 POC ABG pO2 Sodium Potassium 3.0 L Chloride Carbon Dioxide 21 L BUN Creatinine 1.4 H Glucose 103 H POC Glucose Lactic Acid 8.70 H* 9.40 H* Calcium 6.8 L Phosphorus Magnesium Iron TIBC AST Total Creatine Kinase Troponin T Total Protein Albumin Prealbumin LDL Cholesterol Direct HDL Cholesterol Vitamin B12 TSH PTH Intact Urine Creatinine Urine Total Protein Salicylates Acetaminophen Crossmatch 03/21/19 03/21/19 03/21/19 04:12 04:12 04:43 WBC RBC 2.84 L Hgb 9.5 L Hct 28.3 L MCV 100 H MCH 33 H RDW Plt Count 79 L Lymph % (Auto) [place] % (Auto) Lymph # [place] # Seg Neutrophils % Seg Neuts % (Manual) Lymphocytes % (Manual) Monocytes % (Manual) Nucleated RBC % Seg Neutrophils # Seg Neutrophils # Man Lymphocytes # (Manual) PT INR APTT POC ABG pH 7.456 H POC ABG pCO2 POC ABG pO2 Sodium Potassium Chloride Carbon Dioxide BUN Creatinine Glucose POC Glucose Lactic Acid 9.50 H* Calcium Phosphorus Magnesium Iron TIBC AST Total Creatine Kinase Troponin T Total Protein Albumin Prealbumin LDL Cholesterol Direct HDL Cholesterol Vitamin B12 TSH PTH Intact Urine Creatinine Urine Total Protein Salicylates Acetaminophen Crossmatch 03/21/19 03/21/19 03/21/19 08:06 08:08 10:11 WBC RBC Hgb Hct MCV MCH RDW Plt Count Lymph % (Auto) [place] % (Auto) Lymph # [place] # Seg Neutrophils % Seg Neuts % (Manual) Lymphocytes % (Manual) Monocytes % (Manual) Nucleated RBC % Seg Neutrophils # Seg Neutrophils # Man Lymphocytes # (Manual) PT INR APTT POC ABG pH POC ABG pCO2 POC ABG pO2 Sodium Potassium 3.5 L Chloride Carbon Dioxide BUN 22 H Creatinine 1.3 H Glucose POC Glucose 64 L Lactic Acid 8.00 H* Calcium 7.0 L Phosphorus Magnesium Iron TIBC AST Total Creatine Kinase Troponin T Total Protein Albumin Prealbumin LDL Cholesterol Direct HDL Cholesterol Vitamin B12 TSH PTH Intact Urine Creatinine Urine Total Protein Salicylates Acetaminophen Crossmatch 03/21/19 03/21/19 03/21/19 11:17 12:17 13:37 WBC RBC Hgb Hct MCV MCH RDW Plt Count Lymph % (Auto) [place] % (Auto) Lymph # [place] # Seg Neutrophils % Seg Neuts % (Manual) Lymphocytes % (Manual) Monocytes % (Manual) Nucleated RBC % Seg Neutrophils # Seg Neutrophils # Man Lymphocytes # (Manual) PT INR APTT POC ABG pH POC ABG pCO2 POC ABG pO2 Sodium Potassium Chloride Carbon Dioxide BUN Creatinine Glucose POC Glucose 173 H 110 H Lactic Acid Calcium Phosphorus Magnesium Iron TIBC AST Total Creatine Kinase Troponin T 0.033 H D Total Protein Albumin Prealbumin LDL Cholesterol Direct HDL Cholesterol Vitamin B12 TSH PTH Intact Urine Creatinine Urine Total Protein Salicylates Acetaminophen Crossmatch 03/21/19 03/21/19 03/21/19 13:37 17:21 18:52 WBC RBC Hgb Hct MCV MCH RDW Plt Count Lymph % (Auto) [place] % (Auto) Lymph # [place] # Seg Neutrophils % Seg Neuts % (Manual) Lymphocytes % (Manual) Monocytes % (Manual) Nucleated RBC % Seg Neutrophils # Seg Neutrophils # Man Lymphocytes # (Manual) PT INR APTT POC ABG pH POC ABG pCO2 POC ABG pO2 Sodium Potassium Chloride Carbon Dioxide BUN Creatinine Glucose POC Glucose 130 H 107 H Lactic Acid 6.80 H* Calcium Phosphorus Magnesium Iron TIBC AST Total Creatine Kinase Troponin T Total Protein Albumin Prealbumin LDL Cholesterol Direct HDL Cholesterol Vitamin B12 TSH PTH Intact Urine Creatinine Urine Total Protein Salicylates Acetaminophen Crossmatch 03/21/19 03/21/19 03/21/19 20:20 22:08 23:05 WBC RBC Hgb Hct MCV MCH RDW Plt Count Lymph % (Auto) [place] % (Auto) Lymph # [place] # Seg Neutrophils % Seg Neuts % (Manual) Lymphocytes % (Manual) Monocytes % (Manual) Nucleated RBC % Seg Neutrophils # Seg Neutrophils # Man Lymphocytes # (Manual) PT INR APTT POC ABG pH POC ABG pCO2 POC ABG pO2 Sodium Potassium Chloride Carbon Dioxide BUN Creatinine Glucose POC Glucose 106 H 106 H Lactic Acid Calcium Phosphorus Magnesium Iron TIBC AST Total Creatine Kinase Troponin T 0.036 H Total Protein Albumin Prealbumin LDL Cholesterol Direct HDL Cholesterol Vitamin B12 TSH PTH Intact Urine Creatinine Urine Total Protein Salicylates Acetaminophen Crossmatch 03/21/19 03/21/19 03/22/19 23:05 23:05 00:14 WBC RBC Hgb Hct MCV MCH RDW Plt Count Lymph % (Auto) [place] % (Auto) Lymph # [place] # Seg Neutrophils % Seg Neuts % (Manual) Lymphocytes % (Manual) Monocytes % (Manual) Nucleated RBC % Seg Neutrophils # Seg Neutrophils # Man Lymphocytes # (Manual) PT INR APTT POC ABG pH POC ABG pCO2 POC ABG pO2 Sodium Potassium Chloride Carbon Dioxide BUN Creatinine Glucose POC Glucose 122 H 109 H Lactic Acid 7.00 H* Calcium Phosphorus Magnesium Iron TIBC AST Total Creatine Kinase Troponin T Total Protein Albumin Prealbumin LDL Cholesterol Direct HDL Cholesterol Vitamin B12 TSH PTH Intact Urine Creatinine Urine Total Protein Salicylates Acetaminophen Crossmatch 03/22/19 03/22/19 03/22/19 03:10 04:02 05:11 WBC RBC Hgb Hct MCV MCH RDW Plt Count Lymph % (Auto) [place] % (Auto) Lymph # [place] # Seg Neutrophils % Seg Neuts % (Manual) Lymphocytes % (Manual) Monocytes % (Manual) Nucleated RBC % Seg Neutrophils # Seg Neutrophils # Man Lymphocytes # (Manual) PT INR APTT POC ABG pH 7.487 H POC ABG pCO2 POC ABG pO2 67 L Sodium Potassium Chloride Carbon Dioxide BUN Creatinine Glucose POC Glucose 114 H 112 H Lactic Acid Calcium Phosphorus Magnesium Iron TIBC AST Total Creatine Kinase Troponin T Total Protein Albumin Prealbumin LDL Cholesterol Direct HDL Cholesterol Vitamin B12 TSH PTH Intact Urine Creatinine Urine Total Protein Salicylates Acetaminophen Crossmatch 03/22/19 03/22/19 03/22/19 06:06 06:10 06:10 WBC RBC Hgb Hct MCV MCH RDW Plt Count Lymph % (Auto) [place] % (Auto) Lymph # [place] # Seg Neutrophils % Seg Neuts % (Manual) Lymphocytes % (Manual) Monocytes % (Manual) Nucleated RBC % Seg Neutrophils # Seg Neutrophils # Man Lymphocytes # (Manual) PT INR APTT POC ABG pH POC ABG pCO2 POC ABG pO2 Sodium Potassium 3.0 L Chloride Carbon Dioxide BUN Creatinine Glucose POC Glucose 115 H Lactic Acid Calcium 7.0 L Phosphorus Magnesium Iron TIBC AST Total Creatine Kinase Troponin T 0.036 H Total Protein Albumin Prealbumin LDL Cholesterol Direct HDL Cholesterol Vitamin B12 TSH PTH Intact Urine Creatinine Urine Total Protein Salicylates Acetaminophen Crossmatch 03/22/19 03/22/19 03/22/19 06:10 06:10 11:59 WBC RBC Hgb Hct MCV MCH RDW Plt Count Lymph % (Auto) [place] % (Auto) Lymph # [place] # Seg Neutrophils % Seg Neuts % (Manual) Lymphocytes % (Manual) Monocytes % (Manual) Nucleated RBC % Seg Neutrophils # Seg Neutrophils # Man Lymphocytes # (Manual) PT INR APTT POC ABG pH POC ABG pCO2 POC ABG pO2 Sodium Potassium Chloride Carbon Dioxide BUN Creatinine Glucose POC Glucose Lactic Acid 4.80 H* 3.80 H* Calcium Phosphorus Magnesium Iron TIBC AST Total Creatine Kinase Troponin T Total Protein Albumin Prealbumin LDL Cholesterol Direct HDL Cholesterol Vitamin B12 TSH 7.810 H PTH Intact Urine Creatinine Urine Total Protein Salicylates Acetaminophen Crossmatch 03/22/19 03/22/19 03/22/19 13:45 13:45 13:45 WBC RBC Hgb 8.3 L Hct 24.5 L MCV MCH RDW Plt Count 56 L Lymph % (Auto) [place] % (Auto) Lymph # [place] # Seg Neutrophils % Seg Neuts % (Manual) Lymphocytes % (Manual) Monocytes % (Manual) Nucleated RBC % Seg Neutrophils # Seg Neutrophils # Man Lymphocytes # (Manual) PT 21.4 H INR 1.90 H APTT 43.2 H POC ABG pH POC ABG pCO2 POC ABG pO2 Sodium Potassium Chloride Carbon Dioxide BUN Creatinine Glucose POC Glucose Lactic Acid 3.50 H* Calcium Phosphorus Magnesium Iron TIBC AST Total Creatine Kinase Troponin T Total Protein Albumin Prealbumin LDL Cholesterol Direct HDL Cholesterol Vitamin B12 TSH PTH Intact Urine Creatinine Urine Total Protein Salicylates Acetaminophen Crossmatch 03/22/19 03/23/19 03/23/19 22:20 01:06 04:50 WBC 12.1 H RBC 2.36 L Hgb 7.7 L Hct 22.9 L MCV MCH 33 H RDW Plt Count 37 L Lymph % (Auto) [place] % (Auto) Lymph # [place] # Seg Neutrophils % Seg Neuts % (Manual) 83.0 H Lymphocytes % (Manual) 8.0 L Monocytes % (Manual) Nucleated RBC % Seg Neutrophils # Seg Neutrophils # Man 10.0 H Lymphocytes # (Manual) 1.0 L PT INR APTT POC ABG pH POC ABG pCO2 POC ABG pO2 Sodium Potassium Chloride Carbon Dioxide BUN Creatinine Glucose POC Glucose Lactic Acid 3.60 H* 2.70 H* Calcium Phosphorus Magnesium Iron TIBC AST Total Creatine Kinase Troponin T Total Protein Albumin Prealbumin LDL Cholesterol Direct HDL Cholesterol Vitamin B12 TSH PTH Intact Urine Creatinine Urine Total Protein Salicylates Acetaminophen Crossmatch 0703/23/19 03/23/19 04:50 05:25 05:53 WBC RBC Hgb Hct MCV MCH RDW Plt Count Lymph % (Auto) [place] % (Auto) Lymph # [place] # Seg Neutrophils % Seg Neuts % (Manual) Lymphocytes % (Manual) Monocytes % (Manual) Nucleated RBC % Seg Neutrophils # Seg Neutrophils # Man Lymphocytes # (Manual) PT INR APTT POC ABG pH POC ABG pCO2 33.3 L POC ABG pO2 Sodium Potassium 3.5 L Chloride 108.3 H Carbon Dioxide BUN Creatinine Glucose POC Glucose 68 L Lactic Acid Calcium 7.3 L Phosphorus Magnesium Iron TIBC AST Total Creatine Kinase Troponin T Total Protein Albumin Prealbumin LDL Cholesterol Direct HDL Cholesterol Vitamin B12 TSH PTH Intact Urine Creatinine Urine Total Protein Salicylates Acetaminophen Crossmatch 03/24/19 03/24/19 03/24/19 03:26 05:50 05:57 WBC RBC Hgb Hct MCV MCH RDW Plt Count Lymph % (Auto) [place] % (Auto) Lymph # [place] # Seg Neutrophils % Seg Neuts % (Manual) Lymphocytes % (Manual) Monocytes % (Manual) Nucleated RBC % Seg Neutrophils # Seg Neutrophils # Man Lymphocytes # (Manual) PT INR APTT POC ABG pH POC ABG pCO2 POC ABG pO2 78 L Sodium Potassium 3.4 L Chloride 116.5 H Carbon Dioxide 21 L BUN Creatinine 0.5 L Glucose 105 H POC Glucose 127 H Lactic Acid Calcium 6.4 L Phosphorus Magnesium Iron TIBC AST Total Creatine Kinase Troponin T Total Protein Albumin Prealbumin LDL Cholesterol Direct HDL Cholesterol Vitamin B12 TSH PTH Intact Urine Creatinine Urine Total Protein Salicylates Acetaminophen Crossmatch 03/24/19 03/24/19 03/24/19 06:00 11:30 12:25 WBC 13.6 H RBC 2.08 L Hgb 6.9 L Hct 20.5 L MCV 99 H MCH 33 H RDW Plt Count 50 L Lymph % (Auto) 8.1 L [place] % (Auto) 10.0 H Lymph # 1.1 L [place] # 1.4 H Seg Neutrophils % 80.7 H Seg Neuts % (Manual) Lymphocytes % (Manual) Monocytes % (Manual) Nucleated RBC % Seg Neutrophils # 11.0 H Seg Neutrophils # Man Lymphocytes # (Manual) PT INR APTT POC ABG pH POC ABG pCO2 POC ABG pO2 Sodium Potassium Chloride Carbon Dioxide BUN Creatinine Glucose POC Glucose 111 H Lactic Acid Calcium Phosphorus Magnesium Iron TIBC AST Total Creatine Kinase Troponin T Total Protein Albumin Prealbumin LDL Cholesterol Direct HDL Cholesterol Vitamin B12 TSH PTH Intact Urine Creatinine Urine Total Protein Salicylates Acetaminophen Crossmatch See Detail 03/24/19 03/25/19 03/25/19 14:25 05:20 10:00 WBC 13.4 H RBC 2.54 L Hgb 8.1 L Hct 24.3 L MCV MCH RDW 17.3 H Plt Count 44 L Lymph % (Auto) [place] % (Auto) Lymph # [place] # Seg Neutrophils % Seg Neuts % (Manual) Lymphocytes % (Manual) Monocytes % (Manual) Nucleated RBC % Seg Neutrophils # Seg Neutrophils # Man Lymphocytes # (Manual) PT INR APTT POC ABG pH POC ABG pCO2 POC ABG pO2 Sodium Potassium Chloride Carbon Dioxide BUN Creatinine Glucose POC Glucose 111 H Lactic Acid Calcium Phosphorus Magnesium Iron 32 L TIBC 75 L AST Total Creatine Kinase Troponin T Total Protein Albumin Prealbumin LDL Cholesterol Direct HDL Cholesterol Vitamin B12 TSH PTH Intact Urine Creatinine Urine Total Protein Salicylates Acetaminophen Crossmatch 03/25/19 03/25/19 10:11 10:11 WBC RBC Hgb Hct MCV MCH RDW Plt Count Lymph % (Auto) [place] % (Auto) Lymph # [place] # Seg Neutrophils % Seg Neuts % (Manual) Lymphocytes % (Manual) Monocytes % (Manual) Nucleated RBC % Seg Neutrophils # Seg Neutrophils # Man Lymphocytes # (Manual) PT INR APTT POC ABG pH POC ABG pCO2 POC ABG pO2 Sodium Potassium Chloride 112.0 H Carbon Dioxide BUN 20 H Creatinine 0.6 L Glucose POC Glucose Lactic Acid Calcium 7.2 L Phosphorus Magnesium Iron TIBC AST Total Creatine Kinase Troponin T Total Protein Albumin Prealbumin LDL Cholesterol Direct HDL Cholesterol Vitamin B12 > 2000 H TSH PTH Intact Urine Creatinine Urine Total Protein Salicylates Acetaminophen Crossmatch Chest x-ray: image reviewed (bilateral infiltrate representing pneumonia possible superimposed fluid overload.)
[2019-03-26] MEDS: HumaLOG SUB-Q SCH ×4 (02:33→18:11)
[2019-03-26] MEDS: DUONEB *Not for PRN Use IH SCH ×4 (02:35→20:25)
[2019-03-26] MEDS: LOPRESSOR PO SCH ×2 (03:58→09:35)
--- NOTE | 2019-03-26 03:59 | XRay Report ---
CHEST 1 VIEW INDICATION / CLINICAL INFORMATION: follow up respiratory failure. COMPARISON: 03/25/2019 FINDINGS: SUPPORT DEVICES: Endotracheal tube, nasogastric tube, right central venous line HEART / MEDIASTINUM: No significant abnormality. LUNGS / PLEURA: Bilateral airspace disease has improved slightly No pneumothorax. ADDITIONAL FINDINGS: No significant additional findings. IMPRESSION: Slight improvement in the bilateral airspace disease since yesterday Signer Name: Rudi Diaz MD FACR Signed: 03/26/2019 3:55 AM Workstation Name: [id number]
[2019-03-26] MEDS: FLAGYL 500 MG/100 ML 500 MG/100 ML BAG IV SCH ×2 (05:35→13:23)
[2019-03-26 06:00] LABS: Hematocrit 25.7 % (30.3-42.9); Hemoglobin 8.9 gm/dl (10.1-14.3); Mean Corpuscular HGB Conc 35 % (30-34); Mean Corpuscular Volume 94 fl (79-97); Red Blood Count 2.74 M/mm3 (3.65-5.03); Red Cell Distribution Width 16.9 % (13.2-15.2)
[2019-03-26 06:03] LABS: Platelet Count 60 K/mm3 (140-440)
[2019-03-26 06:21] LABS: BUN/Creatinine Ratio 31; Blood Urea Nitrogen 22 mg/dL (7-17); Calcium 7.4 mg/dL (8.4-10.2); Hemolysis Index 6
[2019-03-26 06:53] LABS: Anisocytosis 1+; Band Neutrophils # (Manual) 0.1 K/mm3; Basophils % (Manual) 0 % (0.0-1.8); Platelet Estimate Consistent w Auto; Total Cells Counted 100
[2019-03-26] MEDS: PULMICORT IH SCH ×2 (08:18→20:25)
[2019-03-26] MEDS: CORDARONE PO SCH ×2 (09:32→22:00)
[2019-03-26] MEDS: BABY ASPIRIN PO SCH (09:32)
[2019-03-26] MEDS: PEPCID PO SCH ×2 (09:32→21:59)
[2019-03-26] MEDS: VANCOMYCIN/NS 1 GM/250 ML 1 GM/250 ML BAG IV SCH (09:33)
[2019-03-26] MEDS: MAXIPIME/NS 2 GM/100 ML 2 GM/100 ML BAG IV SCH (09:33)
[2019-03-26] MEDS: SODIUM CHLORIDE FLUSH SYRINGE 10 ML IV SCH ×2 (09:34→22:02)
[2019-03-26] MEDS: LASIX 100 MG in NACL 0.9% 90 ML IV SCH (09:34)
--- NOTE | 2019-03-26 10:21 | Progress Note ---
Assessment and Plan Acute respiratory failure CXR showing volume overload improvement Sepsis Pneumonia Acute kidney failure Atrial fibrillation with RVR on amiodarone and po metoprolol with holding parameters Altered mental status Anemia and thrombocytopenia Echocardiogram shows a normal left ventricular systolic function, ejection fraction 60-65%. Recommendations: Continue IV lasix drip at 2.5 mg/hr and titrate according to UO and as BP permits Resume IV digoxin for rate control and discontinue metoprolol Replace potassium Prn Levophed to maintain MAP > 65 Anticoagulation on hold due to anemia and thrombocytopenia Subjective Date of service: 03/26/19 Principal diagnosis: resp fail sepsis Interval history: Patient continues to be intubated CXR is showing improvement in airspace disease Objective Vital Signs Temp Pulse Pulse Resp Resp BP Pulse Ox 03/26/19 10:00 112 H 22 87/46 97 03/26/19 09:35 127 H 92/50 03/26/19 09:30 129 H 24 82/50 93 03/26/19 09:00 127 H 18 90/47 96 03/26/19 08:30 126 H 22 108/60 94 03/26/19 08:19 126 H 126 H 24 88/50 96 03/26/19 08:00 98.7 F 126 H 24 88/50 95 03/26/19 07:30 129 H 17 107/47 98 03/26/19 07:00 124 H 19 107/49 96 03/26/19 06:30 122 H 21 100/56 97 03/26/19 06:00 132 H 20 92/51 97 03/26/19 05:30 135 H 17 95/62 97 03/26/19 05:00 134 H 28 H 95/62 96 03/26/19 04:30 134 H 32 H 96/62 97 03/26/19 04:16 120 H 03/26/19 04:00 124 H 21 94/47 97 03/26/19 03:58 100.8 F H 140 H 94/47 03/26/19 03:30 124 H 22 102/51 97 03/26/19 03:00 121 H 25 H 103/56 96 03/26/19 02:30 134 H 25 H 102/51 96 03/26/19 02:00 139 H 33 H 111/59 94 03/26/19 01:50 138 H 26 H 03/26/19 01:30 143 H 27 H 110/48 96 03/26/19 01:00 124 H 28 H 94/57 97 03/26/19 00:30 126 H 25 H 105/50 95 03/26/19 00:20 123 H 108/57 97 03/26/19 00:00 100.6 F H 122 H 22 108/57 97 03/25/19 23:30 128 H 21 98/58 97 03/25/19 23:00 121 H 27 H 94/53 95 03/25/19 22:30 121 H 24 109/55 94 03/25/19 22:00 122 H 26 H 96/57 95 03/25/19 21:30 124 H 25 H 90/51 94 03/25/19 21:09 123 H 30 H 89/47 96 03/25/19 21:00 118 H 24 89/47 96 03/25/19 20:47 68 98/54 03/25/19 20:30 124 H 18 98/54 96 03/25/19 20:29 127 H 105/64 95 03/25/19 20:00 100.5 F H 135 H 19 102/54 95 03/25/19 19:45 126 H 28 H 03/25/19 19:30 117 H 21 98/54 95 03/25/19 19:00 121 H 18 94/53 95 03/25/19 18:30 112 H 25 H 106/56 95 03/25/19 18:00 117 H 26 H 100/53 97 03/25/19 17:30 105 H 16 92/52 03/25/19 17:00 105 H 19 92/49 98 03/25/19 16:30 99 H 23 103/55 99 03/25/19 16:00 100.5 F H 124 H 21 89/53 96 03/25/19 15:47 117 H 101/51 03/25/19 15:30 121 H 15 99/56 98 03/25/19 15:00 114 H 14 109/56 98 03/25/19 14:30 114 H 21 119/57 97 03/25/19 14:00 101 H 115 H 15 23 127/67 97 03/25/19 13:30 105 H 16 109/58 03/25/19 13:00 106 H 23 109/55 97 03/25/19 12:30 101 H 24 110/55 98 03/25/19 12:00 98.9 F 98 H 22 102/52 99 03/25/19 11:35 98 H 129/68 99 03/25/19 11:30 107 H 22 101/53 97 03/25/19 11:00 107 H 19 99/49 03/25/19 10:30 97 H 26 H 99/49 97 - Physical Examination General: Other (intubated on the vent) Neck: Positive: neck supple Cardiac: Positive: irregularly irregular Lungs: Positive: Ventilated Respirations - Labs and Meds CBC 03/25/19 03/26/19 Range/Units 10:00 05:00 WBC 13.4 H 14.4 H (4.5-11.0) K/mm3 RBC 2.54 L 2.74 L (3.65-5.03) M/mm3 Hgb 8.1 L 8.9 L (10.1-14.3) gm/dl Hct 24.3 L 25.7 L (30.3-42.9) % Plt Count 44 L 60 L (140-440) K/mm3 Comprehensive Metabolic Panel 03/25/19 03/26/19 Range/Units 10:11 05:00 Sodium 140 143 (137-145) mmol/L Potassium 3.6 3.1 L (3.6-5.0) mmol/L Chloride 112.0 H 110.4 H (98-107) mmol/L Carbon Dioxide 23 26 (22-30) mmol/L BUN 20 H 22 H (7-17) mg/dL Creatinine 0.6 L 0.7 (0.7-1.2) mg/dL Glucose 89 101 H (65-100) mg/dL Calcium 7.2 L 7.4 L (8.4-10.2) mg/dL - Imaging and Cardiology EKG: report reviewed (sinus tachycardia heart rate of 129/m)
[2019-03-26] MEDS: KCL 20MEQ/100ML 20 MEQ/100 ML BAG IV SCH ×2 (11:39→13:00)
[2019-03-26] MEDS: LANOXIN IV SCH ×2 (11:40→18:10)
--- NOTE | 2019-03-26 12:30 | Progress Note ---
Assessment and Plan 73 y/o female found unresponsive now intubated and septic, etiology thought secondary to pneumonia with anemia and thrombocytopenia 1. Continue ventilator support. 2. Patient currently on keppra. No documented evidence of seizure. Spoke with pharmacy and nurse reported seizure like activity. Going to stop for now. Did not see EEG or neuro consult. 3. ID following, currently on cefepime, vanco and flagyl 4. Mild pulmonary HTN, currently does not appear to an issue. Agree with diuresis.. 5. Hold on DVT prophylaxix, continue GI prophy 6. Overall prognosis is guard. 7. Replace K Total critical care time 31 minute Subjective Date of service: 03/26/19 Principal diagnosis: resp fail sepsis Interval history: Patient more awake and responsive. Open eyes on verbal stimulation. Remain intubated on mechanical ventilator with FiO2 of 30%. On Lasix drip for edema per cardiology. Suspect volume overload/congestive heart failure. Remain on antibiotic per ID. Objective Vital Signs - 12hr 03/26/19 03/26/19 03/26/19 00:30 01:00 01:30 Temperature Pulse Rate 126 H 124 H 143 H Pulse Rate [ Anterior Bilateral Throughout] Respiratory 25 H 28 H 27 H Rate Respiratory Rate [Anterior Bilateral Throughout] Blood Pressure 105/50 94/57 110/48 O2 Sat by Pulse 95 97 96 Oximetry 03/26/19 03/26/19 03/26/19 01:50 02:00 02:30 Temperature Pulse Rate 139 H 134 H Pulse Rate [ 138 H Anterior Bilateral Throughout] Respiratory 33 H 25 H Rate Respiratory 26 H Rate [Anterior Bilateral Throughout] Blood Pressure 111/59 102/51 O2 Sat by Pulse 94 96 Oximetry 03/26/19 03/26/19 03/26/19 03:00 03:30 03:58 Temperature 100.8 F H Pulse Rate 121 H 124 H 140 H Pulse Rate [ Anterior Bilateral Throughout] Respiratory 25 H 22 Rate Respiratory Rate [Anterior Bilateral Throughout] Blood Pressure 103/56 102/51 94/47 O2 Sat by Pulse 96 97 Oximetry 03/26/19 03/26/19 03/26/19 04:00 04:16 04:30 Temperature Pulse Rate 124 H 120 H 134 H Pulse Rate [ Anterior Bilateral Throughout] Respiratory 21 32 H Rate Respiratory Rate [Anterior Bilateral Throughout] Blood Pressure 94/47 96/62 O2 Sat by Pulse 97 97 Oximetry 03/26/19 03/26/19 03/26/19 05:00 05:30 06:00 Temperature Pulse Rate 134 H 135 H 132 H Pulse Rate [ Anterior Bilateral Throughout] Respiratory 28 H 17 20 Rate Respiratory Rate [Anterior Bilateral Throughout] Blood Pressure 95/62 95/62 92/51 O2 Sat by Pulse 96 97 97 Oximetry 03/26/19 03/26/19 03/26/19 06:30 07:00 07:30 Temperature Pulse Rate 122 H 124 H 129 H Pulse Rate [ Anterior Bilateral Throughout] Respiratory 21 19 17 Rate Respiratory Rate [Anterior Bilateral Throughout] Blood Pressure 100/56 107/49 107/47 O2 Sat by Pulse 97 96 98 Oximetry 03/26/19 03/26/19 03/26/19 08:00 08:19 08:30 Temperature 98.7 F Pulse Rate 126 H 126 H 126 H Pulse Rate [ 112 H Anterior Bilateral Throughout] Respiratory 24 22 Rate Respiratory 24 Rate [Anterior Bilateral Throughout] Blood Pressure 88/50 88/50 108/60 O2 Sat by Pulse 95 96 94 Oximetry 03/26/19 03/26/19 03/26/19 09:00 09:30 09:35 Temperature Pulse Rate 127 H 129 H 127 H Pulse Rate [ Anterior Bilateral Throughout] Respiratory 18 24 Rate Respiratory Rate [Anterior Bilateral Throughout] Blood Pressure 90/47 82/50 92/50 O2 Sat by Pulse 96 93 Oximetry 03/26/19 03/26/19 03/26/19 10:00 10:30 11:00 Temperature Pulse Rate 112 H 101 H 108 H Pulse Rate [ Anterior Bilateral Throughout] Respiratory 22 19 23 Rate Respiratory Rate [Anterior Bilateral Throughout] Blood Pressure 87/46 95/53 99/63 O2 Sat by Pulse 97 98 95 Oximetry 03/26/19 03/26/19 11:40 11:58 Temperature Pulse Rate 105 H 108 H Pulse Rate [ Anterior Bilateral Throughout] Respiratory Rate Respiratory Rate [Anterior Bilateral Throughout] Blood Pressure 97/53 90/47 O2 Sat by Pulse 98 Oximetry Constitutional: lethargic, other (intubated on vent min responsive off sedation) Eyes: non-icteric ENT: other (intubated ) Neck: supple Effort: mildly labored, other (poor efforts ) Ascultation: Bilateral: diminished breath sounds (grossly clear ), rales (coarse bilat ) Percussion: Bilateral: not dull, dull Cardiovascular: other (tachy AF ) Gastrointestinal: hypoactive bowel sounds Integumentary: normal Extremities: anasarca Neurologic: unable to assess CBC and BMP: 03/26/19 05:00 03/26/19 05:00 ABG, PT/INR, D-dimer: ABG POC ABG pH 7.411 (7.35-7.45) 03/25/19 05:40 POC ABG pO2 83 (80-105) 03/25/19 05:40 POC ABG HCO3 17.7 (22-26 mml/L) 03/25/19 05:40 POC ABG Total CO2 19 (23-27mmol/L) 03/25/19 05:40 POC ABG O2 Sat 97 03/25/19 05:40 PT/INR, D-dimer PT 21.4 Sec. (12.2-14.9) H 03/22/19 13:45 INR 1.90 (0.87-1.13) H 03/22/19 13:45 Abnormal lab findings: Abnormal Labs 03/19/19 03/19/19 03/19/19 12:59 12:59 12:59 WBC RBC 3.44 L Hgb Hct MCV 101 H MCH 34 H MCHC RDW Plt Count 98 L Lymph % (Auto) [place] % (Auto) Lymph # [place] # Seg Neutrophils % Seg Neuts % (Manual) 11.0 L Lymphocytes % (Manual) Monocytes % (Manual) 10.0 H Eosinophils % (Manual) Nucleated RBC % 1.0 H Seg Neutrophils # Seg Neutrophils # Man 0.6 L Lymphocytes # (Manual) Monocytes # (Manual) Eosinophils # (Manual) PT INR APTT POC ABG pH POC ABG pCO2 POC ABG pO2 Sodium 149 H Potassium Chloride 109.4 H Carbon Dioxide BUN 51 H Creatinine 3.2 H Glucose 58 L POC Glucose Lactic Acid 7.60 H* Calcium 7.8 L Phosphorus Magnesium 1.60 L Iron TIBC AST 75 H Total Creatine Kinase 1499 H Troponin T 0.109 H* Total Protein 5.2 L Albumin 1.7 L Prealbumin LDL Cholesterol Direct 22 L HDL Cholesterol 31 L Vitamin B12 TSH PTH Intact Urine Creatinine Urine Total Protein Salicylates Acetaminophen Crossmatch 03/19/19 03/19/19 03/19/19 12:59 12:59 14:48 WBC RBC Hgb Hct MCV MCH MCHC RDW Plt Count Lymph % (Auto) [place] % (Auto) Lymph # [place] # Seg Neutrophils % Seg Neuts % (Manual) Lymphocytes % (Manual) Monocytes % (Manual) Eosinophils % (Manual) Nucleated RBC % Seg Neutrophils # Seg Neutrophils # Man Lymphocytes # (Manual) Monocytes # (Manual) Eosinophils # (Manual) PT INR APTT POC ABG pH POC ABG pCO2 POC ABG pO2 Sodium Potassium Chloride Carbon Dioxide BUN Creatinine Glucose POC Glucose 44 L Lactic Acid Calcium Phosphorus Magnesium Iron TIBC AST Total Creatine Kinase Troponin T Total Protein Albumin Prealbumin LDL Cholesterol Direct HDL Cholesterol Vitamin B12 TSH PTH Intact Urine Creatinine Urine Total Protein Salicylates < 0.3 L Acetaminophen < 5.0 L Crossmatch 03/19/19 03/19/19 03/19/19 15:33 15:52 16:26 WBC RBC Hgb Hct MCV MCH MCHC RDW Plt Count Lymph % (Auto) [place] % (Auto) Lymph # [place] # Seg Neutrophils % Seg Neuts % (Manual) Lymphocytes % (Manual) Monocytes % (Manual) Eosinophils % (Manual) Nucleated RBC % Seg Neutrophils # Seg Neutrophils # Man Lymphocytes # (Manual) Monocytes # (Manual) Eosinophils # (Manual) PT INR APTT POC ABG pH POC ABG pCO2 POC ABG pO2 Sodium Potassium Chloride Carbon Dioxide BUN Creatinine Glucose POC Glucose 228 H 231 H Lactic Acid Calcium Phosphorus Magnesium Iron TIBC AST Total Creatine Kinase Troponin T Total Protein Albumin Prealbumin LDL Cholesterol Direct HDL Cholesterol Vitamin B12 TSH PTH Intact Urine Creatinine 31.8 H Urine Total Protein Salicylates Acetaminophen Crossmatch 03/19/19 03/19/19 03/19/19 16:38 17:14 18:43 WBC RBC Hgb Hct MCV MCH MCHC RDW Plt Count Lymph % (Auto) [place] % (Auto) Lymph # [place] # Seg Neutrophils % Seg Neuts % (Manual) Lymphocytes % (Manual) Monocytes % (Manual) Eosinophils % (Manual) Nucleated RBC % Seg Neutrophils # Seg Neutrophils # Man Lymphocytes # (Manual) Monocytes # (Manual) Eosinophils # (Manual) PT INR APTT POC ABG pH 7.196 L POC ABG pCO2 30.8 L POC ABG pO2 Sodium Potassium Chloride Carbon Dioxide BUN Creatinine Glucose POC Glucose 235 H Lactic Acid 8.10 H* Calcium Phosphorus Magnesium Iron TIBC AST Total Creatine Kinase Troponin T Total Protein Albumin Prealbumin LDL Cholesterol Direct HDL Cholesterol Vitamin B12 TSH PTH Intact Urine Creatinine Urine Total Protein Salicylates Acetaminophen Crossmatch 03/19/19 03/19/19 03/19/19 18:52 20:00 20:56 WBC RBC Hgb Hct MCV MCH MCHC RDW Plt Count Lymph % (Auto) [place] % (Auto) Lymph # [place] # Seg Neutrophils % Seg Neuts % (Manual) Lymphocytes % (Manual) Monocytes % (Manual) Eosinophils % (Manual) Nucleated RBC % Seg Neutrophils # Seg Neutrophils # Man Lymphocytes # (Manual) Monocytes # (Manual) Eosinophils # (Manual) PT INR APTT POC ABG pH POC ABG pCO2 POC ABG pO2 Sodium Potassium Chloride Carbon Dioxide BUN Creatinine Glucose POC Glucose 240 H 117 H Lactic Acid 5.90 H* Calcium Phosphorus Magnesium Iron TIBC AST Total Creatine Kinase Troponin T Total Protein Albumin Prealbumin LDL Cholesterol Direct HDL Cholesterol Vitamin B12 TSH PTH Intact Urine Creatinine Urine Total Protein Salicylates Acetaminophen Crossmatch 03/19/19 03/19/19 03/19/19 21:19 22:07 23:00 WBC RBC Hgb Hct MCV MCH MCHC RDW Plt Count Lymph % (Auto) [place] % (Auto) Lymph # [place] # Seg Neutrophils % Seg Neuts % (Manual) Lymphocytes % (Manual) Monocytes % (Manual) Eosinophils % (Manual) Nucleated RBC % Seg Neutrophils # Seg Neutrophils # Man Lymphocytes # (Manual) Monocytes # (Manual) Eosinophils # (Manual) PT INR APTT POC ABG pH POC ABG pCO2 POC ABG pO2 Sodium Potassium Chloride Carbon Dioxide BUN Creatinine Glucose POC Glucose < 40 L 136 H Lactic Acid 6.10 H* Calcium Phosphorus Magnesium Iron TIBC AST Total Creatine Kinase Troponin T Total Protein Albumin Prealbumin LDL Cholesterol Direct HDL Cholesterol Vitamin B12 TSH PTH Intact Urine Creatinine Urine Total Protein Salicylates Acetaminophen Crossmatch 03/20/19 03/20/19 03/20/19 00:05 01:38 02:23 WBC RBC Hgb Hct MCV MCH MCHC RDW Plt Count Lymph % (Auto) [place] % (Auto) Lymph # [place] # Seg Neutrophils % Seg Neuts % (Manual) Lymphocytes % (Manual) Monocytes % (Manual) Eosinophils % (Manual) Nucleated RBC % Seg Neutrophils # Seg Neutrophils # Man Lymphocytes # (Manual) Monocytes # (Manual) Eosinophils # (Manual) PT INR APTT POC ABG pH POC ABG pCO2 POC ABG pO2 Sodium Potassium Chloride Carbon Dioxide BUN Creatinine Glucose POC Glucose 68 L 153 H 127 H Lactic Acid Calcium Phosphorus Magnesium Iron TIBC AST Total Creatine Kinase Troponin T Total Protein Albumin Prealbumin LDL Cholesterol Direct HDL Cholesterol Vitamin B12 TSH PTH Intact Urine Creatinine Urine Total Protein Salicylates Acetaminophen Crossmatch 03/20/19 03/20/19 03/20/19 03:12 04:31 04:41 WBC RBC Hgb Hct MCV MCH MCHC RDW Plt Count Lymph % (Auto) [place] % (Auto) Lymph # [place] # Seg Neutrophils % Seg Neuts % (Manual) Lymphocytes % (Manual) Monocytes % (Manual) Eosinophils % (Manual) Nucleated RBC % Seg Neutrophils # Seg Neutrophils # Man Lymphocytes # (Manual) Monocytes # (Manual) Eosinophils # (Manual) PT INR APTT POC ABG pH POC ABG pCO2 POC ABG pO2 53 L 65 L Sodium Potassium Chloride Carbon Dioxide BUN Creatinine Glucose POC Glucose 109 H Lactic Acid Calcium Phosphorus Magnesium Iron TIBC AST Total Creatine Kinase Troponin T Total Protein Albumin Prealbumin LDL Cholesterol Direct HDL Cholesterol Vitamin B12 TSH PTH Intact Urine Creatinine Urine Total Protein Salicylates Acetaminophen Crossmatch 03/20/19 03/20/19 03/20/19 05:50 07:29 08:14 WBC RBC Hgb Hct MCV MCH MCHC RDW Plt Count Lymph % (Auto) [place] % (Auto) Lymph # [place] # Seg Neutrophils % Seg Neuts % (Manual) Lymphocytes % (Manual) Monocytes % (Manual) Eosinophils % (Manual) Nucleated RBC % Seg Neutrophils # Seg Neutrophils # Man Lymphocytes # (Manual) Monocytes # (Manual) Eosinophils # (Manual) PT INR APTT POC ABG pH POC ABG pCO2 POC ABG pO2 Sodium Potassium Chloride Carbon Dioxide BUN Creatinine Glucose 61 L POC Glucose 47 L 153 H Lactic Acid Calcium Phosphorus Magnesium 1.60 L Iron TIBC AST Total Creatine Kinase Troponin T Total Protein Albumin Prealbumin LDL Cholesterol Direct HDL Cholesterol Vitamin B12 TSH PTH Intact Urine Creatinine Urine Total Protein Salicylates Acetaminophen Crossmatch 03/20/19 03/20/19 03/20/19 08:23 08:23 10:59 WBC RBC Hgb Hct MCV MCH MCHC RDW Plt Count Lymph % (Auto) [place] % (Auto) Lymph # [place] # Seg Neutrophils % Seg Neuts % (Manual) Lymphocytes % (Manual) Monocytes % (Manual) Eosinophils % (Manual) Nucleated RBC % Seg Neutrophils # Seg Neutrophils # Man Lymphocytes # (Manual) Monocytes # (Manual) Eosinophils # (Manual) PT INR APTT POC ABG pH POC ABG pCO2 POC ABG pO2 Sodium Potassium Chloride Carbon Dioxide BUN Creatinine Glucose 101 H POC Glucose 233 H Lactic Acid 9.70 H* Calcium Phosphorus Magnesium Iron TIBC AST Total Creatine Kinase Troponin T Total Protein Albumin Prealbumin 0.052 L LDL Cholesterol Direct HDL Cholesterol Vitamin B12 TSH PTH Intact Urine Creatinine Urine Total Protein Salicylates Acetaminophen Crossmatch 03/20/19 03/20/19 03/20/19 12:23 16:10 16:40 WBC RBC Hgb Hct MCV MCH MCHC RDW Plt Count Lymph % (Auto) [place] % (Auto) Lymph # [place] # Seg Neutrophils % Seg Neuts % (Manual) Lymphocytes % (Manual) Monocytes % (Manual) Eosinophils % (Manual) Nucleated RBC % Seg Neutrophils # Seg Neutrophils # Man Lymphocytes # (Manual) Monocytes # (Manual) Eosinophils # (Manual) PT INR APTT POC ABG pH POC ABG pCO2 POC ABG pO2 Sodium Potassium Chloride Carbon Dioxide BUN Creatinine Glucose POC Glucose 135 H 171 H Lactic Acid Calcium Phosphorus Magnesium Iron TIBC AST Total Creatine Kinase Troponin T Total Protein Albumin Prealbumin LDL Cholesterol Direct HDL Cholesterol Vitamin B12 TSH PTH Intact Urine Creatinine 53.7 H Urine Total Protein 36 H Salicylates Acetaminophen Crossmatch 03/20/19 03/20/19 03/20/19 16:57 17:38 17:50 WBC RBC Hgb Hct MCV MCH MCHC RDW Plt Count Lymph % (Auto) [place] % (Auto) Lymph # [place] # Seg Neutrophils % Seg Neuts % (Manual) Lymphocytes % (Manual) Monocytes % (Manual) Eosinophils % (Manual) Nucleated RBC % Seg Neutrophils # Seg Neutrophils # Man Lymphocytes # (Manual) Monocytes # (Manual) Eosinophils # (Manual) PT INR APTT POC ABG pH POC ABG pCO2 POC ABG pO2 Sodium Potassium Chloride Carbon Dioxide BUN Creatinine Glucose POC Glucose 152 H 147 H Lactic Acid 9.90 H* Calcium Phosphorus Magnesium Iron TIBC AST Total Creatine Kinase Troponin T Total Protein Albumin Prealbumin LDL Cholesterol Direct HDL Cholesterol Vitamin B12 TSH PTH Intact Urine Creatinine Urine Total Protein Salicylates Acetaminophen Crossmatch 03/20/19 03/20/19 03/20/19 17:50 17:50 17:50 WBC RBC 2.92 L Hgb 10.0 L Hct 29.3 L MCV 100 H MCH 34 H MCHC RDW Plt Count 81 L Lymph % (Auto) [place] % (Auto) Lymph # [place] # Seg Neutrophils % Seg Neuts % (Manual) Lymphocytes % (Manual) Monocytes % (Manual) Eosinophils % (Manual) Nucleated RBC % Seg Neutrophils # Seg Neutrophils # Man Lymphocytes # (Manual) Monocytes # (Manual) Eosinophils # (Manual) PT INR APTT POC ABG pH POC ABG pCO2 POC ABG pO2 Sodium Potassium 2.8 L* D Chloride Carbon Dioxide BUN 30 H Creatinine 1.6 H Glucose 107 H POC Glucose Lactic Acid Calcium 6.9 L Phosphorus 2.00 L Magnesium Iron TIBC AST Total Creatine Kinase Troponin T Total Protein Albumin Prealbumin LDL Cholesterol Direct HDL Cholesterol Vitamin B12 TSH PTH Intact 171.6 H Urine Creatinine Urine Total Protein Salicylates Acetaminophen Crossmatch 03/20/19 03/21/19 03/21/19 21:12 00:30 04:12 WBC RBC Hgb Hct MCV MCH MCHC RDW Plt Count Lymph % (Auto) [place] % (Auto) Lymph # [place] # Seg Neutrophils % Seg Neuts % (Manual) Lymphocytes % (Manual) Monocytes % (Manual) Eosinophils % (Manual) Nucleated RBC % Seg Neutrophils # Seg Neutrophils # Man Lymphocytes # (Manual) Monocytes # (Manual) Eosinophils # (Manual) PT INR APTT POC ABG pH POC ABG pCO2 POC ABG pO2 Sodium Potassium 3.0 L Chloride Carbon Dioxide 21 L BUN Creatinine 1.4 H Glucose 103 H POC Glucose Lactic Acid 8.70 H* 9.40 H* Calcium 6.8 L Phosphorus Magnesium Iron TIBC AST Total Creatine Kinase Troponin T Total Protein Albumin Prealbumin LDL Cholesterol Direct HDL Cholesterol Vitamin B12 TSH PTH Intact Urine Creatinine Urine Total Protein Salicylates Acetaminophen Crossmatch 03/21/19 03/21/19 03/21/19 04:12 04:12 04:43 WBC RBC 2.84 L Hgb 9.5 L Hct 28.3 L MCV 100 H MCH 33 H MCHC RDW Plt Count 79 L Lymph % (Auto) [place] % (Auto) Lymph # [place] # Seg Neutrophils % Seg Neuts % (Manual) Lymphocytes % (Manual) Monocytes % (Manual) Eosinophils % (Manual) Nucleated RBC % Seg Neutrophils # Seg Neutrophils # Man Lymphocytes # (Manual) Monocytes # (Manual) Eosinophils # (Manual) PT INR APTT POC ABG pH 7.456 H POC ABG pCO2 POC ABG pO2 Sodium Potassium Chloride Carbon Dioxide BUN Creatinine Glucose POC Glucose Lactic Acid 9.50 H* Calcium Phosphorus Magnesium Iron TIBC AST Total Creatine Kinase Troponin T Total Protein Albumin Prealbumin LDL Cholesterol Direct HDL Cholesterol Vitamin B12 TSH PTH Intact Urine Creatinine Urine Total Protein Salicylates Acetaminophen Crossmatch 03/21/19 03/21/19 03/21/19 08:06 08:08 10:11 WBC RBC Hgb Hct MCV MCH MCHC RDW Plt Count Lymph % (Auto) [place] % (Auto) Lymph # [place] # Seg Neutrophils % Seg Neuts % (Manual) Lymphocytes % (Manual) Monocytes % (Manual) Eosinophils % (Manual) Nucleated RBC % Seg Neutrophils # Seg Neutrophils # Man Lymphocytes # (Manual) Monocytes # (Manual) Eosinophils # (Manual) PT INR APTT POC ABG pH POC ABG pCO2 POC ABG pO2 Sodium Potassium 3.5 L Chloride Carbon Dioxide BUN 22 H Creatinine 1.3 H Glucose POC Glucose 64 L Lactic Acid 8.00 H* Calcium 7.0 L Phosphorus Magnesium Iron TIBC AST Total Creatine Kinase Troponin T Total Protein Albumin Prealbumin LDL Cholesterol Direct HDL Cholesterol Vitamin B12 TSH PTH Intact Urine Creatinine Urine Total Protein Salicylates Acetaminophen Crossmatch 03/21/19 03/21/19 03/21/19 11:17 12:17 13:37 WBC RBC Hgb Hct MCV MCH MCHC RDW Plt Count Lymph % (Auto) [place] % (Auto) Lymph # [place] # Seg Neutrophils % Seg Neuts % (Manual) Lymphocytes % (Manual) Monocytes % (Manual) Eosinophils % (Manual) Nucleated RBC % Seg Neutrophils # Seg Neutrophils # Man Lymphocytes # (Manual) Monocytes # (Manual) Eosinophils # (Manual) PT INR APTT POC ABG pH POC ABG pCO2 POC ABG pO2 Sodium Potassium Chloride Carbon Dioxide BUN Creatinine Glucose POC Glucose 173 H 110 H Lactic Acid Calcium Phosphorus Magnesium Iron TIBC AST Total Creatine Kinase Troponin T 0.033 H D Total Protein Albumin Prealbumin LDL Cholesterol Direct HDL Cholesterol Vitamin B12 TSH PTH Intact Urine Creatinine Urine Total Protein Salicylates Acetaminophen Crossmatch 03/21/19 03/21/19 03/21/19 13:37 17:21 18:52 WBC RBC Hgb Hct MCV MCH MCHC RDW Plt Count Lymph % (Auto) [place] % (Auto) Lymph # [place] # Seg Neutrophils % Seg Neuts % (Manual) Lymphocytes % (Manual) Monocytes % (Manual) Eosinophils % (Manual) Nucleated RBC % Seg Neutrophils # Seg Neutrophils # Man Lymphocytes # (Manual) Monocytes # (Manual) Eosinophils # (Manual) PT INR APTT POC ABG pH POC ABG pCO2 POC ABG pO2 Sodium Potassium Chloride Carbon Dioxide BUN Creatinine Glucose POC Glucose 130 H 107 H Lactic Acid 6.80 H* Calcium Phosphorus Magnesium Iron TIBC AST Total Creatine Kinase Troponin T Total Protein Albumin Prealbumin LDL Cholesterol Direct HDL Cholesterol Vitamin B12 TSH PTH Intact Urine Creatinine Urine Total Protein Salicylates Acetaminophen Crossmatch 03/21/19 03/21/19 03/21/19 20:20 22:08 23:05 WBC RBC Hgb Hct MCV MCH MCHC RDW Plt Count Lymph % (Auto) [place] % (Auto) Lymph # [place] # Seg Neutrophils % Seg Neuts % (Manual) Lymphocytes % (Manual) Monocytes % (Manual) Eosinophils % (Manual) Nucleated RBC % Seg Neutrophils # Seg Neutrophils # Man Lymphocytes # (Manual) Monocytes # (Manual) Eosinophils # (Manual) PT INR APTT POC ABG pH POC ABG pCO2 POC ABG pO2 Sodium Potassium Chloride Carbon Dioxide BUN Creatinine Glucose POC Glucose 106 H 106 H Lactic Acid Calcium Phosphorus Magnesium Iron TIBC AST Total Creatine Kinase Troponin T 0.036 H Total Protein Albumin Prealbumin LDL Cholesterol Direct HDL Cholesterol Vitamin B12 TSH PTH Intact Urine Creatinine Urine Total Protein Salicylates Acetaminophen Crossmatch 03/21/19 03/21/19 03/22/19 23:05 23:05 00:14 WBC RBC Hgb Hct MCV MCH MCHC RDW Plt Count Lymph % (Auto) [place] % (Auto) Lymph # [place] # Seg Neutrophils % Seg Neuts % (Manual) Lymphocytes % (Manual) Monocytes % (Manual) Eosinophils % (Manual) Nucleated RBC % Seg Neutrophils # Seg Neutrophils # Man Lymphocytes # (Manual) Monocytes # (Manual) Eosinophils # (Manual) PT INR APTT POC ABG pH POC ABG pCO2 POC ABG pO2 Sodium Potassium Chloride Carbon Dioxide BUN Creatinine Glucose POC Glucose 122 H 109 H Lactic Acid 7.00 H* Calcium Phosphorus Magnesium Iron TIBC AST Total Creatine Kinase Troponin T Total Protein Albumin Prealbumin LDL Cholesterol Direct HDL Cholesterol Vitamin B12 TSH PTH Intact Urine Creatinine Urine Total Protein Salicylates Acetaminophen Crossmatch 03/22/19 03/22/19 03/22/19 03:10 04:02 05:11 WBC RBC Hgb Hct MCV MCH MCHC RDW Plt Count Lymph % (Auto) [place] % (Auto) Lymph # [place] # Seg Neutrophils % Seg Neuts % (Manual) Lymphocytes % (Manual) Monocytes % (Manual) Eosinophils % (Manual) Nucleated RBC % Seg Neutrophils # Seg Neutrophils # Man Lymphocytes # (Manual) Monocytes # (Manual) Eosinophils # (Manual) PT INR APTT POC ABG pH 7.487 H POC ABG pCO2 POC ABG pO2 67 L Sodium Potassium Chloride Carbon Dioxide BUN Creatinine Glucose POC Glucose 114 H 112 H Lactic Acid Calcium Phosphorus Magnesium Iron TIBC AST Total Creatine Kinase Troponin T Total Protein Albumin Prealbumin LDL Cholesterol Direct HDL Cholesterol Vitamin B12 TSH PTH Intact Urine Creatinine Urine Total Protein Salicylates Acetaminophen Crossmatch 03/22/19 03/22/19 03/22/19 06:06 06:10 06:10 WBC RBC Hgb Hct MCV MCH MCHC RDW Plt Count Lymph % (Auto) [place] % (Auto) Lymph # [place] # Seg Neutrophils % Seg Neuts % (Manual) Lymphocytes % (Manual) Monocytes % (Manual) Eosinophils % (Manual) Nucleated RBC % Seg Neutrophils # Seg Neutrophils # Man Lymphocytes # (Manual) Monocytes # (Manual) Eosinophils # (Manual) PT INR APTT POC ABG pH POC ABG pCO2 POC ABG pO2 Sodium Potassium 3.0 L Chloride Carbon Dioxide BUN Creatinine Glucose POC Glucose 115 H Lactic Acid Calcium 7.0 L Phosphorus Magnesium Iron TIBC AST Total Creatine Kinase Troponin T 0.036 H Total Protein Albumin Prealbumin LDL Cholesterol Direct HDL Cholesterol Vitamin B12 TSH PTH Intact Urine Creatinine Urine Total Protein Salicylates Acetaminophen Crossmatch 03/22/19 03/22/19 03/22/19 06:10 06:10 11:59 WBC RBC Hgb Hct MCV MCH MCHC RDW Plt Count Lymph % (Auto) [place] % (Auto) Lymph # [place] # Seg Neutrophils % Seg Neuts % (Manual) Lymphocytes % (Manual) Monocytes % (Manual) Eosinophils % (Manual) Nucleated RBC % Seg Neutrophils # Seg Neutrophils # Man Lymphocytes # (Manual) Monocytes # (Manual) Eosinophils # (Manual) PT INR APTT POC ABG pH POC ABG pCO2 POC ABG pO2 Sodium Potassium Chloride Carbon Dioxide BUN Creatinine Glucose POC Glucose Lactic Acid 4.80 H* 3.80 H* Calcium Phosphorus Magnesium Iron TIBC AST Total Creatine Kinase Troponin T Total Protein Albumin Prealbumin LDL Cholesterol Direct HDL Cholesterol Vitamin B12 TSH 7.810 H PTH Intact Urine Creatinine Urine Total Protein Salicylates Acetaminophen Crossmatch 03/22/19 03/22/19 03/22/19 13:45 13:45 13:45 WBC RBC Hgb 8.3 L Hct 24.5 L MCV MCH MCHC RDW Plt Count 56 L Lymph % (Auto) [place] % (Auto) Lymph # [place] # Seg Neutrophils % Seg Neuts % (Manual) Lymphocytes % (Manual) Monocytes % (Manual) Eosinophils % (Manual) Nucleated RBC % Seg Neutrophils # Seg Neutrophils # Man Lymphocytes # (Manual) Monocytes # (Manual) Eosinophils # (Manual) PT 21.4 H INR 1.90 H APTT 43.2 H POC ABG pH POC ABG pCO2 POC ABG pO2 Sodium Potassium Chloride Carbon Dioxide BUN Creatinine Glucose POC Glucose Lactic Acid 3.50 H* Calcium Phosphorus Magnesium Iron TIBC AST Total Creatine Kinase Troponin T Total Protein Albumin Prealbumin LDL Cholesterol Direct HDL Cholesterol Vitamin B12 TSH PTH Intact Urine Creatinine Urine Total Protein Salicylates Acetaminophen Crossmatch 03/22/19 03/23/19 03/23/19 22:20 01:06 04:50 WBC 12.1 H RBC 2.36 L Hgb 7.7 L Hct 22.9 L MCV MCH 33 H MCHC RDW Plt Count 37 L Lymph % (Auto) [place] % (Auto) Lymph # [place] # Seg Neutrophils % Seg Neuts % (Manual) 83.0 H Lymphocytes % (Manual) 8.0 L Monocytes % (Manual) Eosinophils % (Manual) Nucleated RBC % Seg Neutrophils # Seg Neutrophils # Man 10.0 H Lymphocytes # (Manual) 1.0 L Monocytes # (Manual) Eosinophils # (Manual) PT INR APTT POC ABG pH POC ABG pCO2 POC ABG pO2 Sodium Potassium Chloride Carbon Dioxide BUN Creatinine Glucose POC Glucose Lactic Acid 3.60 H* 2.70 H* Calcium Phosphorus Magnesium Iron TIBC AST Total Creatine Kinase Troponin T Total Protein Albumin Prealbumin LDL Cholesterol Direct HDL Cholesterol Vitamin B12 TSH PTH Intact Urine Creatinine Urine Total Protein Salicylates Acetaminophen Crossmatch 03/23/19 03/23/19 03/23/19 04:50 05:25 05:53 WBC RBC Hgb Hct MCV MCH MCHC RDW Plt Count Lymph % (Auto) [place] % (Auto) Lymph # [place] # Seg Neutrophils % Seg Neuts % (Manual) Lymphocytes % (Manual) Monocytes % (Manual) Eosinophils % (Manual) Nucleated RBC % Seg Neutrophils # Seg Neutrophils # Man Lymphocytes # (Manual) Monocytes # (Manual) Eosinophils # (Manual) PT INR APTT POC ABG pH POC ABG pCO2 33.3 L POC ABG pO2 Sodium Potassium 3.5 L Chloride 108.3 H Carbon Dioxide BUN Creatinine Glucose POC Glucose 68 L Lactic Acid Calcium 7.3 L Phosphorus Magnesium Iron TIBC AST Total Creatine Kinase Troponin T Total Protein Albumin Prealbumin LDL Cholesterol Direct HDL Cholesterol Vitamin B12 TSH PTH Intact Urine Creatinine Urine Total Protein Salicylates Acetaminophen Crossmatch 03/24/19 03/24/19 03/24/19 03:26 05:50 05:57 WBC RBC Hgb Hct MCV MCH MCHC RDW Plt Count Lymph % (Auto) [place] % (Auto) Lymph # [place] # Seg Neutrophils % Seg Neuts % (Manual) Lymphocytes % (Manual) Monocytes % (Manual) Eosinophils % (Manual) Nucleated RBC % Seg Neutrophils # Seg Neutrophils # Man Lymphocytes # (Manual) Monocytes # (Manual) Eosinophils # (Manual) PT INR APTT POC ABG pH POC ABG pCO2 POC ABG pO2 78 L Sodium Potassium 3.4 L Chloride 116.5 H Carbon Dioxide 21 L BUN Creatinine 0.5 L Glucose 105 H POC Glucose 127 H Lactic Acid Calcium 6.4 L Phosphorus Magnesium Iron TIBC AST Total Creatine Kinase Troponin T Total Protein Albumin Prealbumin LDL Cholesterol Direct HDL Cholesterol Vitamin B12 TSH PTH Intact Urine Creatinine Urine Total Protein Salicylates Acetaminophen Crossmatch 03/24/19 03/24/19 03/24/19 06:00 11:30 12:25 WBC 13.6 H RBC 2.08 L Hgb 6.9 L Hct 20.5 L MCV 99 H MCH 33 H MCHC RDW Plt Count 50 L Lymph % (Auto) 8.1 L [place] % (Auto) 10.0 H Lymph # 1.1 L [place] # 1.4 H Seg Neutrophils % 80.7 H Seg Neuts % (Manual) Lymphocytes % (Manual) Monocytes % (Manual) Eosinophils % (Manual) Nucleated RBC % Seg Neutrophils # 11.0 H Seg Neutrophils # Man Lymphocytes # (Manual) Monocytes # (Manual) Eosinophils # (Manual) PT INR APTT POC ABG pH POC ABG pCO2 POC ABG pO2 Sodium Potassium Chloride Carbon Dioxide BUN Creatinine Glucose POC Glucose 111 H Lactic Acid Calcium Phosphorus Magnesium Iron TIBC AST Total Creatine Kinase Troponin T Total Protein Albumin Prealbumin LDL Cholesterol Direct HDL Cholesterol Vitamin B12 TSH PTH Intact Urine Creatinine Urine Total Protein Salicylates Acetaminophen Crossmatch See Detail 03/24/19 03/25/19 03/25/19 14:25 05:20 10:00 WBC 13.4 H RBC 2.54 L Hgb 8.1 L Hct 24.3 L MCV MCH MCHC RDW 17.3 H Plt Count 44 L Lymph % (Auto) [place] % (Auto) Lymph # [place] # Seg Neutrophils % Seg Neuts % (Manual) Lymphocytes % (Manual) Monocytes % (Manual) Eosinophils % (Manual) Nucleated RBC % Seg Neutrophils # Seg Neutrophils # Man Lymphocytes # (Manual) Monocytes # (Manual) Eosinophils # (Manual) PT INR APTT POC ABG pH POC ABG pCO2 POC ABG pO2 Sodium Potassium Chloride Carbon Dioxide BUN Creatinine Glucose POC Glucose 111 H Lactic Acid Calcium Phosphorus Magnesium Iron 32 L TIBC 75 L AST Total Creatine Kinase Troponin T Total Protein Albumin Prealbumin LDL Cholesterol Direct HDL Cholesterol Vitamin B12 TSH PTH Intact Urine Creatinine Urine Total Protein Salicylates Acetaminophen Crossmatch 03/25/19 03/25/19 03/25/19 10:11 10:11 23:11 WBC RBC Hgb Hct MCV MCH MCHC RDW Plt Count Lymph % (Auto) [place] % (Auto) Lymph # [place] # Seg Neutrophils % Seg Neuts % (Manual) Lymphocytes % (Manual) Monocytes % (Manual) Eosinophils % (Manual) Nucleated RBC % Seg Neutrophils # Seg Neutrophils # Man Lymphocytes # (Manual) Monocytes # (Manual) Eosinophils # (Manual) PT INR APTT POC ABG pH POC ABG pCO2 POC ABG pO2 Sodium Potassium Chloride 112.0 H Carbon Dioxide BUN 20 H Creatinine 0.6 L Glucose POC Glucose 112 H Lactic Acid Calcium 7.2 L Phosphorus Magnesium Iron TIBC AST Total Creatine Kinase Troponin T Total Protein Albumin Prealbumin LDL Cholesterol Direct HDL Cholesterol Vitamin B12 > 2000 H TSH PTH Intact Urine Creatinine Urine Total Protein Salicylates Acetaminophen Crossmatch 03/26/19 03/26/19 03/26/19 05:00 05:00 05:16 WBC 14.4 H RBC 2.74 L Hgb 8.9 L Hct 25.7 L MCV MCH 33 H MCHC 35 H RDW 16.9 H Plt Count 60 L Lymph % (Auto) [place] % (Auto) Lymph # [place] # Seg Neutrophils % Seg Neuts % (Manual) 83.0 H Lymphocytes % (Manual) 5.0 L Monocytes % (Manual) Eosinophils % (Manual) 5.0 H Nucleated RBC % 1.0 H Seg Neutrophils # Seg Neutrophils # Man 12.0 H Lymphocytes # (Manual) 0.7 L Monocytes # (Manual) 0.9 H Eosinophils # (Manual) 0.7 H PT INR APTT POC ABG pH POC ABG pCO2 POC ABG pO2 Sodium Potassium 3.1 L Chloride 110.4 H Carbon Dioxide BUN 22 H Creatinine Glucose 101 H POC Glucose 114 H Lactic Acid Calcium 7.4 L Phosphorus Magnesium Iron TIBC AST Total Creatine Kinase Troponin T Total Protein Albumin Prealbumin LDL Cholesterol Direct HDL Cholesterol Vitamin B12 TSH PTH Intact Urine Creatinine Urine Total Protein Salicylates Acetaminophen Crossmatch 03/26/19 11:55 WBC RBC Hgb Hct MCV MCH MCHC RDW Plt Count Lymph % (Auto) [place] % (Auto) Lymph # [place] # Seg Neutrophils % Seg Neuts % (Manual) Lymphocytes % (Manual) Monocytes % (Manual) Eosinophils % (Manual) Nucleated RBC % Seg Neutrophils # Seg Neutrophils # Man Lymphocytes # (Manual) Monocytes # (Manual) Eosinophils # (Manual) PT INR APTT POC ABG pH POC ABG pCO2 POC ABG pO2 Sodium Potassium Chloride Carbon Dioxide BUN Creatinine Glucose POC Glucose 121 H Lactic Acid Calcium Phosphorus Magnesium Iron TIBC AST Total Creatine Kinase Troponin T Total Protein Albumin Prealbumin LDL Cholesterol Direct HDL Cholesterol Vitamin B12 TSH PTH Intact Urine Creatinine Urine Total Protein Salicylates Acetaminophen Crossmatch
[2019-03-26] MEDS: LEVOPHED DRIP 4 MG/NS 250 ML 4 MG/250 ML BAG IV SCH (13:22)
--- NOTE | 2019-03-26 14:53 | Progress Note ---
Assessment and Plan Cultures/ID related labs: Blood culture 03/19/2019 no growth. Urine culture 03/19/2019 negative. 03/23/2019 tracheal aspirate culture: Usual resp maday Assessment: 73 y/o female with history of dementia, prior CVA, on home hospice admitted on 03/20/2019 brought by EMS due to altered mental status: 1) Sepsis with septic shock: source pneumonia but persistent fever. UA negative. Blood culture 03/19/2019 no growth. Urine culture 03/19/2019 negative. 2) Bilateral pneumonia: ? aspiration v/s CAP 3) Acute encephalopathy: CT head without contrast shows encephalomalacia in the entire right cerebral hemisphere, volume loss in the left cerebral hemisphere, no acute parenchymal lesion in the brain. 4) Acute respiratory failure: remains intubated, on the vent. 5) HA: improved. Recommendations: given persistent fevers and rising WBC, will get CT chest abdomen pelvis with IV contrast started IV Meropenem 1 gm q8 hrs Guarded prognosis, was on home hospice prior to admission Dr. Andreas jurado tomorrow. Isaias Quintanilla MD, FACP [facility] ([facility] C: [phone] O: [phone] F: [phone] Subjective Date of service: 03/26/19 Principal diagnosis: resp fail sepsis Interval history: Still having fevers. Was also started on pressors. Discussed with RN. Remains intubated, on the vent. Objective - Exam Narrative Exam: Physical Exam: Constitutional: awake, intubated, intermittently following commands Head, Ears, Nose: Normocephalic, atraumatic. External ears, nose normal Eyes: Conjunctivae/corneas clear. No icterus. No ptosis. Neck: Supple, no meningeal signs Oral: intubated Cardiovascular: S1, S2 normal. Respiratory: Good air entry, clear to auscultation bilaterally GI: Soft, non-tender; bowel sounds normal. No peritoneal signs Musculoskeletal: B/L pedal edema, foot drop and contractures Skin: No rash or abscess Hem/Lymphatic: No palpable cervical or supraclavicular nodes. No lymphangitis Psych: no agitation Neurological: intubated, on vent - Constitutional Vitals: Vital Signs Temp Pulse Resp BP Pulse Ox 98.5 F 137 H 29 H 112/85 95 03/26/19 12:00 03/26/19 14:30 03/26/19 14:30 03/26/19 14:30 03/26/19 14:30 Temperature -Last 24 Hours Temperature 98.5 F Temperature 98.7 F Temperature 100.8 F Temperature 100.6 F Temperature 100.5 F Temperature 100.5 F - Labs CBC & Chem 7: 03/26/19 05:00 03/26/19 05:00 Labs: Abnormal lab results 03/25/19 03/26/19 03/26/19 Range/Units 23:11 05:00 05:00 WBC 14.4 H (4.5-11.0) K/mm3 RBC 2.74 L (3.65-5.03) M/mm3 Hgb 8.9 L (10.1-14.3) gm/dl Hct 25.7 L (30.3-42.9) % MCH 33 H (28-32) pg MCHC 35 H (30-34) % RDW 16.9 H (13.2-15.2) % Plt Count 60 L (140-440) K/mm3 Seg Neuts % (Manual) 83.0 H (40.0-70.0) % Lymphocytes % (Manual) 5.0 L (13.4-35.0) % Eosinophils % (Manual) 5.0 H (0.0-4.3) % Nucleated RBC % 1.0 H (0.0-0.9) % Seg Neutrophils # Man 12.0 H (1.8-7.7) K/mm3 Lymphocytes # (Manual) 0.7 L (1.2-5.4) K/mm3 Monocytes # (Manual) 0.9 H (0.0-0.8) K/mm3 Eosinophils # (Manual) 0.7 H (0.0-0.4) K/mm3 Potassium 3.1 L (3.6-5.0) mmol/L Chloride 110.4 H (98-107) mmol/L BUN 22 H (7-17) mg/dL Glucose 101 H (65-100) mg/dL POC Glucose 112 H (70-105) Calcium 7.4 L (8.4-10.2) mg/dL 03/26/19 03/26/19 Range/Units 05:16 11:55 WBC (4.5-11.0) K/mm3 RBC (3.65-5.03) M/mm3 Hgb (10.1-14.3) gm/dl Hct (30.3-42.9) % MCH (28-32) pg MCHC (30-34) % RDW (13.2-15.2) % Plt Count (140-440) K/mm3 Seg Neuts % (Manual) (40.0-70.0) % Lymphocytes % (Manual) (13.4-35.0) % Eosinophils % (Manual) (0.0-4.3) % Nucleated RBC % (0.0-0.9) % Seg Neutrophils # Man (1.8-7.7) K/mm3 Lymphocytes # (Manual) (1.2-5.4) K/mm3 Monocytes # (Manual) (0.0-0.8) K/mm3 Eosinophils # (Manual) (0.0-0.4) K/mm3 Potassium (3.6-5.0) mmol/L Chloride (98-107) mmol/L BUN (7-17) mg/dL Glucose (65-100) mg/dL POC Glucose 114 H 121 H (70-105) Calcium (8.4-10.2) mg/dL - Imaging and cardiology Chest x-ray: report reviewed, image reviewed (stable to slightly improvedi infiltrates)
[2019-03-26] MEDS: MERREM 1,000 MG in NACL 0.9% 100 ML IV SCH ×2 (16:05→22:12)
--- NOTE | 2019-03-26 16:37 | Cat Scan Report ---
CT CHEST WITHOUT CONTRAST INDICATION / CLINICAL INFORMATION: Persistent fever, shock. TECHNIQUE: Axial CT images were obtained through the chest without contrast. All CT scans at this location are p erformed using CT dose reduction for ALARA by means of automated exposure control. COMPARISON: None available. FINDINGS: Endotracheal tube is present HEART: No significant abnormality. THORACIC AORTA: No significant abnormality. MEDIASTINUM and RICK: No significant abnormality. LUNGS: Multifocal airspace changes throughout both lungs with consolidated lower lobes. Small right p leural effusion is present. PLEURA:. No pneumothorax. ADDITIONAL FINDINGS: None. SKELETAL SYSTEM: Sternal fractures are present. IMPRESSION: 1. Multifocal airspace disease with airspace consolidation as noted, worrisome for pneumonia 2. Multiple sternal fractures Signer Name: Nadeem Thomas MD Signed: 03/26/2019 4:33 PM Workstation Name: [id number]
--- NOTE | 2019-03-26 17:09 | Cat Scan Report ---
CT ABDOMEN AND PELVIS WITH CONTRAST INDICATION / CLINICAL INFORMATION: Persistent fever, shock. TECHNIQUE: Axial CT images were obtained through the abdomen and pelvis after IV contrast. All CT scans at this location are performed using CT dose reduction for ALARA by means of automated exposure control. COMPARISON: None available. FINDINGS: Nasogastric tube has its tip in the stomach. LIVER: No significant abnormality. GALLBLADDER: Previous cholecystectomy BILE DUCTS: No significant abnormality. PANCREAS: No significant abnormality. SPLEEN: No significant abnormality. ADRENALS: No significant abnormality. RIGHT KIDNEY and URETER: No significant abnormality. LEFT KIDNEY and URETER: No significant abnormality. STOMACH and SMALL BOWEL: No significant abnormality. COLON: No significant abnormality. APPENDIX: No significant abnormality. PERITONEUM: Small amount of free fluid is present in the dependent portion abdomen. LYMPH NODES: No significant adenopathy. AORTA and ARTERIES: No significant abnormality. IVC and VEINS: IVC filter in place. URINARY BLADDER: Adam catheter is present within the urinary bladder REPRODUCTIVE ORGANS: No significant abnormality. ADDITIONAL FINDINGS: Subcutaneous edema is present overlying the anterior and lateral abdominal wall and pelvis SKELETAL SYSTEM: Compression fracture L3 with approximately 20% loss of vertebral body height IMPRESSION: 1. Compression fracture L3 age difficult to determine 2. Small amount of free fluid dependent portion of the pelvis 3. Subcutaneous edema as noted Signer Name: Nadeem Thomas MD Signed: 03/26/2019 5:05 PM Workstation Name: [id number]
[2019-03-27] MEDS: HumaLOG SUB-Q SCH ×4 (00:05→19:28)
[2019-03-27] MEDS: DUONEB *Not for PRN Use IH SCH ×4 (01:36→19:48)
[2019-03-27] MEDS: MERREM 1,000 MG in NACL 0.9% 100 ML IV SCH ×3 (05:32→22:23)
[2019-03-27] MEDS: LEVOPHED DRIP 4 MG/NS 250 ML 4 MG/250 ML BAG IV SCH ×2 (07:23→21:01)
--- NOTE | 2019-03-27 09:09 | Progress Note ---
Assessment and Plan Acute respiratory failure CXR showing volume overload improvement Sepsis Pneumonia Acute kidney failure Atrial fibrillation with RVR on amiodarone and digoxin for rate control Altered mental status Anemia and thrombocytopenia Echocardiogram shows a normal left ventricular systolic function, ejection fraction 60-65%. Continue medical management for persistent atrial fibrillation. Subjective Date of service: 03/27/19 Principal diagnosis: resp fail sepsis Interval history: Patient is alert with eyes open but remains intubated on the vent. Objective Vital Signs Temp Pulse Pulse Resp Resp BP Pulse Ox 03/27/19 08:16 148 H 125/48 97 03/27/19 08:00 101 F H 143 H 23 127/68 97 03/27/19 07:45 101 H 19 113/53 100 03/27/19 07:30 79 18 114/48 100 03/27/19 07:15 114 H 18 79/42 98 03/27/19 07:00 116 H 27 H 99/43 97 03/27/19 06:45 108 H 25 H 89/36 98 03/27/19 06:31 106 H 18 89/36 98 03/27/19 06:15 80 19 98/45 100 03/27/19 06:00 102 H 19 100/47 98 03/27/19 05:45 95 H 17 101/37 99 03/27/19 05:30 118 H 26 H 111/48 97 03/27/19 05:15 142 H 22 111/56 98 03/27/19 05:00 118 H 19 110/50 98 03/27/19 04:49 106 H 110/57 99 03/27/19 04:45 122 H 18 110/57 99 03/27/19 04:30 96 H 19 102/50 100 03/27/19 04:15 91 H 16 90/47 100 03/27/19 04:00 100.4 F H 96 H 20 96/51 100 03/27/19 03:45 90 18 91/41 100 03/27/19 03:30 96 H 21 97/46 99 03/27/19 03:15 97 H 19 107/42 100 03/27/19 03:00 99 H 19 106/48 100 03/27/19 02:45 94 H 16 79/43 03/27/19 02:30 97 H 18 88/45 100 03/27/19 02:15 96 H 22 97/45 99 03/27/19 02:00 100 H 19 99/43 100 03/27/19 01:48 93 H 19 03/27/19 01:45 97 H 21 80/46 03/27/19 01:30 96 H 21 85/42 99 03/27/19 01:15 96 H 21 92/45 99 03/27/19 01:00 115 H 25 H 99/47 98 03/27/19 00:45 124 H 22 97/49 98 03/27/19 00:31 141 H 93/57 99 03/27/19 00:30 139 H 24 93/57 97 03/27/19 00:15 121 H 24 94/47 03/27/19 00:00 100.2 F H 96 H 20 95/41 100 03/26/19 23:45 122 H 23 97/42 99 03/26/19 23:30 117 H 22 91/46 98 03/26/19 23:15 128 H 22 99/51 98 03/26/19 23:00 142 H 23 93/54 97 03/26/19 22:45 143 H 25 H 94/50 98 03/26/19 22:30 141 H 24 100/55 96 03/26/19 22:15 142 H 24 104/50 97 03/26/19 22:00 143 H 22 103/47 98 03/26/19 21:45 142 H 20 97/45 98 03/26/19 21:31 103 H 23 91/46 97 03/26/19 21:15 103 H 25 H 105/42 98 03/26/19 21:07 110 H 21 112/49 98 03/26/19 21:00 112 H 34 H 112/49 97 03/26/19 20:54 105 H 25 H 102/53 97 03/26/19 20:45 108 H 15 102/53 96 03/26/19 20:35 112 H 25 H 03/26/19 20:30 116 H 19 89/43 99 03/26/19 20:25 101 H 105/47 99 03/26/19 20:15 108 H 26 H 105/47 99 03/26/19 20:00 99.8 F H 101 H 15 94/41 99 03/26/19 19:45 96 H 20 84/41 03/26/19 19:30 106 H 26 H 81/51 99 03/26/19 19:15 109 H 27 H 86/44 98 03/26/19 19:00 113 H 26 H 94/42 98 03/26/19 18:45 103 H 35 H 87/40 98 03/26/19 18:10 138 H 105/48 03/26/19 18:01 125 H 24 105/48 99 03/26/19 18:00 103 H 03/26/19 17:31 131 H 23 105/48 99 03/26/19 17:06 126 H 105/48 97 03/26/19 17:01 116 H 28 H 94/56 95 03/26/19 16:31 114 H 31 H 105/48 96 03/26/19 16:15 106 H 23 94/56 98 03/26/19 16:00 99.1 F 105 H 03/26/19 15:30 120 H 30 H 97/64 96 03/26/19 15:00 127 H 24 94/56 96 03/26/19 14:30 137 H 29 H 112/85 95 03/26/19 14:24 115 H 34 H 03/26/19 14:00 114 H 23 105/54 97 03/26/19 13:30 112 H 28 H 105/54 95 03/26/19 13:00 113 H 22 87/54 95 03/26/19 12:30 108 H 22 90/53 97 03/26/19 12:00 98.5 F 110 H 19 90/47 97 03/26/19 11:58 108 H 90/47 98 03/26/19 11:40 105 H 97/53 03/26/19 11:30 105 H 18 97/53 97 03/26/19 11:00 108 H 23 99/63 95 03/26/19 10:30 101 H 19 95/53 98 03/26/19 10:00 112 H 22 87/46 97 03/26/19 09:35 127 H 92/50 03/26/19 09:30 129 H 24 82/50 93 - Physical Examination General: Other (intubated on the vent) Neck: Positive: neck supple - Imaging and Cardiology EKG: report reviewed (sinus tachycardia heart rate of 129/m)
[2019-03-27 09:17] LABS: Basophils # (Auto) 0.1 K/mm3 (0.0-0.1); Basophils % (Auto) 0.6 % (0.0-1.8); Eosinophils # (Auto) 0.3 K/mm3 (0.0-0.4); Eosinophils % (Auto) 1.9 % (0.0-4.3); Lymphocytes # (Auto) 2.7 K/mm3 (1.2-5.4); Mean Corpuscular HGB Conc 33 % (30-34); Mean Corpuscular Volume 95 fl (79-97); Monocytes # (Auto) 1.3 K/mm3 (0.0-0.8); Monocytes % (Auto) 8.8 % (0.0-7.3); Red Blood Count 2.52 M/mm3 (3.65-5.03)
[2019-03-27 09:18] LABS: Platelet Count 89 K/mm3 (140-440)
[2019-03-27] MEDS: PULMICORT IH SCH ×2 (09:21→19:48)
[2019-03-27 09:37] LABS: BUN/Creatinine Ratio 28; Blood Urea Nitrogen 22 mg/dL (7-17); Calcium 7.7 mg/dL (8.4-10.2); Hemolysis Index 2
[2019-03-27] MEDS: PEPCID PO SCH ×2 (09:50→22:21)
[2019-03-27] MEDS: BABY ASPIRIN PO SCH (09:50)
[2019-03-27] MEDS: SODIUM CHLORIDE FLUSH SYRINGE 10 ML IV SCH ×2 (09:50→22:22)
[2019-03-27] MEDS: CORDARONE PO SCH ×2 (09:50→22:21)
[2019-03-27] MEDS: LANOXIN IV SCH (09:59)
[2019-03-27] MEDS ORDERED: POTASSIUM CHLORIDE FEEDTUBE ONE (10:00)
[2019-03-27] MEDS ORDERED: NACL 0.9% IR ONE (10:15)
[2019-03-27] MEDS ORDERED: XYLOCAINE 1% 20 mL INFILTRATI ONE (10:30)
--- NOTE | 2019-03-27 10:38 | Procedure Note ---
Date of procedure: 03/27/19 Pre-op diagnosis: Pneumonia Post-op diagnosis: same Procedure: Flexible Bronchoscopy After obtaining phone consent from Daughter, patient premedicated with with 12.5 of IV fentanyl, and placed on 100% FiO2. Scope passed through tube without difficulty. Dianna seen and normal. Scope passed into right middle lobe for bronchial wash. Secretions/Volume removed very clear, no debris. Sample sent for culture, afb and fungal. Scope retracted and patient tolerated procedure well. Anesthesia: none Surgeon: RONI RAMIRES Estimated blood loss: none Pathology: none Specimen disposition: to lab Condition: stable Disposition: ICU
[2019-03-27] MEDS: TYLENOL FEEDTUBE PRN ×2 (10:40→23:31)
--- NOTE | 2019-03-27 10:43 | Progress Note ---
Assessment and Plan 73 y/o female found unresponsive now intubated and septic, etiology thought secondary to pneumonia with anemia and thrombocytopenia 1. Bronched today 2. Will order bilateral upper and lower ext dopplers given persistent fever 3. Continue vent support, has failed PSV today 4. Cards has patient on lasix but this volume appears to be third spacing. Albumin is only 1.7. Patient now hypotensive and on pressors. 5. Patient severely deconditioned. Now that more awake, needs PT consult 6. Will discuss with daughter tomorrow but most likely patient will need trach and peg placement for weaning. CCT 31 minutes. Subjective Date of service: 03/27/19 Principal diagnosis: resp fail sepsis Interval history: No acute events. Continues to spike temperatures. Had CT of chest over the weekend. Called daughter and updated her. Objective Vital Signs - 12hr 03/26/19 03/26/19 03/26/19 22:45 23:00 23:15 Temperature Pulse Rate 143 H 142 H 128 H Pulse Rate [ Anterior Bilateral Throughout] Respiratory 25 H 23 22 Rate Respiratory Rate [Anterior Bilateral Throughout] Blood Pressure 94/50 93/54 99/51 O2 Sat by Pulse 98 97 98 Oximetry 03/26/19 03/26/19 03/27/19 23:30 23:45 00:00 Temperature 100.2 F H Pulse Rate 117 H 122 H 96 H Pulse Rate [ Anterior Bilateral Throughout] Respiratory 22 23 20 Rate Respiratory Rate [Anterior Bilateral Throughout] Blood Pressure 91/46 97/42 95/41 O2 Sat by Pulse 98 99 100 Oximetry 03/27/19 03/27/19 03/27/19 00:15 00:30 00:31 Temperature Pulse Rate 121 H 139 H 141 H Pulse Rate [ Anterior Bilateral Throughout] Respiratory 24 24 Rate Respiratory Rate [Anterior Bilateral Throughout] Blood Pressure 94/47 93/57 93/57 O2 Sat by Pulse 97 99 Oximetry 03/27/19 03/27/19 03/27/19 00:45 01:00 01:15 Temperature Pulse Rate 124 H 115 H 96 H Pulse Rate [ Anterior Bilateral Throughout] Respiratory 22 25 H 21 Rate Respiratory Rate [Anterior Bilateral Throughout] Blood Pressure 97/49 99/47 92/45 O2 Sat by Pulse 98 98 99 Oximetry 03/27/19 03/27/19 03/27/19 01:30 01:45 01:48 Temperature Pulse Rate 96 H 97 H Pulse Rate [ 93 H Anterior Bilateral Throughout] Respiratory 21 21 Rate Respiratory 19 Rate [Anterior Bilateral Throughout] Blood Pressure 85/42 80/46 O2 Sat by Pulse 99 Oximetry 03/27/19 03/27/19 03/27/19 02:00 02:15 02:30 Temperature Pulse Rate 100 H 96 H 97 H Pulse Rate [ Anterior Bilateral Throughout] Respiratory 19 22 18 Rate Respiratory Rate [Anterior Bilateral Throughout] Blood Pressure 99/43 97/45 88/45 O2 Sat by Pulse 100 99 100 Oximetry 03/27/19 03/27/19 03/27/19 02:45 03:00 03:15 Temperature Pulse Rate 94 H 99 H 97 H Pulse Rate [ Anterior Bilateral Throughout] Respiratory 16 19 19 Rate Respiratory Rate [Anterior Bilateral Throughout] Blood Pressure 79/43 106/48 107/42 O2 Sat by Pulse 100 100 Oximetry 03/27/19 03/27/19 03/27/19 03:30 03:45 04:00 Temperature 100.4 F H Pulse Rate 96 H 90 96 H Pulse Rate [ Anterior Bilateral Throughout] Respiratory 21 18 20 Rate Respiratory Rate [Anterior Bilateral Throughout] Blood Pressure 97/46 91/41 96/51 O2 Sat by Pulse 99 100 100 Oximetry 03/27/19 03/27/19 03/27/19 04:15 04:30 04:45 Temperature Pulse Rate 91 H 96 H 122 H Pulse Rate [ Anterior Bilateral Throughout] Respiratory 16 19 18 Rate Respiratory Rate [Anterior Bilateral Throughout] Blood Pressure 90/47 102/50 110/57 O2 Sat by Pulse 100 100 99 Oximetry 03/27/19 03/27/19 03/27/19 04:49 05:00 05:15 Temperature Pulse Rate 106 H 118 H 142 H Pulse Rate [ Anterior Bilateral Throughout] Respiratory 19 22 Rate Respiratory Rate [Anterior Bilateral Throughout] Blood Pressure 110/57 110/50 111/56 O2 Sat by Pulse 99 98 98 Oximetry 03/27/19 03/27/19 03/27/19 05:30 05:45 06:00 Temperature Pulse Rate 118 H 95 H 102 H Pulse Rate [ Anterior Bilateral Throughout] Respiratory 26 H 17 19 Rate Respiratory Rate [Anterior Bilateral Throughout] Blood Pressure 111/48 101/37 100/47 O2 Sat by Pulse 97 99 98 Oximetry 03/27/19 03/27/19 03/27/19 06:15 06:31 06:45 Temperature Pulse Rate 80 106 H 108 H Pulse Rate [ Anterior Bilateral Throughout] Respiratory 19 18 25 H Rate Respiratory Rate [Anterior Bilateral Throughout] Blood Pressure 98/45 89/36 89/36 O2 Sat by Pulse 100 98 98 Oximetry 03/27/19 03/27/19 03/27/19 07:00 07:15 07:30 Temperature Pulse Rate 116 H 114 H 79 Pulse Rate [ Anterior Bilateral Throughout] Respiratory 27 H 18 18 Rate Respiratory Rate [Anterior Bilateral Throughout] Blood Pressure 99/43 79/42 114/48 O2 Sat by Pulse 97 98 100 Oximetry 03/27/19 03/27/19 03/27/19 07:45 08:00 08:15 Temperature 101 F H Pulse Rate 101 H 143 H 136 H Pulse Rate [ Anterior Bilateral Throughout] Respiratory 19 23 21 Rate Respiratory Rate [Anterior Bilateral Throughout] Blood Pressure 113/53 127/68 113/53 O2 Sat by Pulse 100 97 Oximetry 03/27/19 03/27/19 03/27/19 08:16 08:30 08:45 Temperature Pulse Rate 148 H Pulse Rate [ Anterior Bilateral Throughout] Respiratory 19 20 Rate Respiratory Rate [Anterior Bilateral Throughout] Blood Pressure 125/48 106/52 94/58 O2 Sat by Pulse 97 98 98 Oximetry 03/27/19 03/27/19 03/27/19 09:00 09:15 09:30 Temperature Pulse Rate 134 H 141 H 116 H Pulse Rate [ Anterior Bilateral Throughout] Respiratory 16 19 19 Rate Respiratory Rate [Anterior Bilateral Throughout] Blood Pressure 117/45 103/54 104/46 O2 Sat by Pulse 98 99 98 Oximetry 03/27/19 03/27/19 03/27/19 09:32 09:45 09:59 Temperature Pulse Rate 126 H 133 H Pulse Rate [ 135 H Anterior Bilateral Throughout] Respiratory 20 Rate Respiratory 26 H Rate [Anterior Bilateral Throughout] Blood Pressure 99/46 107/48 O2 Sat by Pulse 99 Oximetry 03/27/19 03/27/19 10:01 10:15 Temperature Pulse Rate 134 H 82 Pulse Rate [ Anterior Bilateral Throughout] Respiratory 19 21 Rate Respiratory Rate [Anterior Bilateral Throughout] Blood Pressure 107/48 99/58 O2 Sat by Pulse 99 100 Oximetry Constitutional: lethargic, other (intubated on vent responds to name. follows commands) Eyes: non-icteric ENT: other (intubated ) Neck: supple Effort: mildly labored, other (poor efforts ) Ascultation: Bilateral: diminished breath sounds (grossly clear ), rales (coarse bilat ) Percussion: Bilateral: not dull, dull Cardiovascular: other (tachy AF ) Gastrointestinal: hypoactive bowel sounds Integumentary: normal Extremities: anasarca Neurologic: unable to assess CBC and BMP: 03/27/19 09:04 03/27/19 09:04 ABG, PT/INR, D-dimer: ABG POC ABG pH 7.411 (7.35-7.45) 03/25/19 05:40 POC ABG pO2 83 (80-105) 03/25/19 05:40 POC ABG HCO3 17.7 (22-26 mml/L) 03/25/19 05:40 POC ABG Total CO2 19 (23-27mmol/L) 03/25/19 05:40 POC ABG O2 Sat 97 03/25/19 05:40 PT/INR, D-dimer PT 21.4 Sec. (12.2-14.9) H 03/22/19 13:45 INR 1.90 (0.87-1.13) H 03/22/19 13:45 Abnormal lab findings: Abnormal Labs 03/19/19 03/19/19 03/19/19 12:59 12:59 12:59 WBC RBC 3.44 L Hgb Hct MCV 101 H MCH 34 H MCHC RDW Plt Count 98 L Lymph % (Auto) Moore % (Auto) Lymph # Moore # Seg Neutrophils % Seg Neuts % (Manual) 11.0 L Lymphocytes % (Manual) Monocytes % (Manual) 10.0 H Eosinophils % (Manual) Nucleated RBC % 1.0 H Seg Neutrophils # Seg Neutrophils # Man 0.6 L Lymphocytes # (Manual) Monocytes # (Manual) Eosinophils # (Manual) PT INR APTT POC ABG pH POC ABG pCO2 POC ABG pO2 Sodium 149 H Potassium Chloride 109.4 H Carbon Dioxide BUN 51 H Creatinine 3.2 H Glucose 58 L POC Glucose Lactic Acid 7.60 H* Calcium 7.8 L Phosphorus Magnesium 1.60 L Iron TIBC AST 75 H Total Creatine Kinase 1499 H Troponin T 0.109 H* Total Protein 5.2 L Albumin 1.7 L Prealbumin LDL Cholesterol Direct 22 L HDL Cholesterol 31 L Vitamin B12 TSH PTH Intact Urine Creatinine Urine Total Protein Vancomycin Trough Salicylates Acetaminophen Crossmatch 03/19/19 03/19/19 03/19/19 12:59 12:59 14:48 WBC RBC Hgb Hct MCV MCH MCHC RDW Plt Count Lymph % (Auto) Moore % (Auto) Lymph # Moore # Seg Neutrophils % Seg Neuts % (Manual) Lymphocytes % (Manual) Monocytes % (Manual) Eosinophils % (Manual) Nucleated RBC % Seg Neutrophils # Seg Neutrophils # Man Lymphocytes # (Manual) Monocytes # (Manual) Eosinophils # (Manual) PT INR APTT POC ABG pH POC ABG pCO2 POC ABG pO2 Sodium Potassium Chloride Carbon Dioxide BUN Creatinine Glucose POC Glucose 44 L Lactic Acid Calcium Phosphorus Magnesium Iron TIBC AST Total Creatine Kinase Troponin T Total Protein Albumin Prealbumin LDL Cholesterol Direct HDL Cholesterol Vitamin B12 TSH PTH Intact Urine Creatinine Urine Total Protein Vancomycin Trough Salicylates < 0.3 L Acetaminophen < 5.0 L Crossmatch 03/19/19 03/19/19 03/19/19 15:33 15:52 16:26 WBC RBC Hgb Hct MCV MCH MCHC RDW Plt Count Lymph % (Auto) Moore % (Auto) Lymph # Moore # Seg Neutrophils % Seg Neuts % (Manual) Lymphocytes % (Manual) Monocytes % (Manual) Eosinophils % (Manual) Nucleated RBC % Seg Neutrophils # Seg Neutrophils # Man Lymphocytes # (Manual) Monocytes # (Manual) Eosinophils # (Manual) PT INR APTT POC ABG pH POC ABG pCO2 POC ABG pO2 Sodium Potassium Chloride Carbon Dioxide BUN Creatinine Glucose POC Glucose 228 H 231 H Lactic Acid Calcium Phosphorus Magnesium Iron TIBC AST Total Creatine Kinase Troponin T Total Protein Albumin Prealbumin LDL Cholesterol Direct HDL Cholesterol Vitamin B12 TSH PTH Intact Urine Creatinine 31.8 H Urine Total Protein Vancomycin Trough Salicylates Acetaminophen Crossmatch 03/19/19 03/19/19 03/19/19 16:38 17:14 18:43 WBC RBC Hgb Hct MCV MCH MCHC RDW Plt Count Lymph % (Auto) Moore % (Auto) Lymph # Moore # Seg Neutrophils % Seg Neuts % (Manual) Lymphocytes % (Manual) Monocytes % (Manual) Eosinophils % (Manual) Nucleated RBC % Seg Neutrophils # Seg Neutrophils # Man Lymphocytes # (Manual) Monocytes # (Manual) Eosinophils # (Manual) PT INR APTT POC ABG pH 7.196 L POC ABG pCO2 30.8 L POC ABG pO2 Sodium Potassium Chloride Carbon Dioxide BUN Creatinine Glucose POC Glucose 235 H Lactic Acid 8.10 H* Calcium Phosphorus Magnesium Iron TIBC AST Total Creatine Kinase Troponin T Total Protein Albumin Prealbumin LDL Cholesterol Direct HDL Cholesterol Vitamin B12 TSH PTH Intact Urine Creatinine Urine Total Protein Vancomycin Trough Salicylates Acetaminophen Crossmatch 03/19/19 03/19/19 03/19/19 18:52 20:00 20:56 WBC RBC Hgb Hct MCV MCH MCHC RDW Plt Count Lymph % (Auto) Moore % (Auto) Lymph # Moore # Seg Neutrophils % Seg Neuts % (Manual) Lymphocytes % (Manual) Monocytes % (Manual) Eosinophils % (Manual) Nucleated RBC % Seg Neutrophils # Seg Neutrophils # Man Lymphocytes # (Manual) Monocytes # (Manual) Eosinophils # (Manual) PT INR APTT POC ABG pH POC ABG pCO2 POC ABG pO2 Sodium Potassium Chloride Carbon Dioxide BUN Creatinine Glucose POC Glucose 240 H 117 H Lactic Acid 5.90 H* Calcium Phosphorus Magnesium Iron TIBC AST Total Creatine Kinase Troponin T Total Protein Albumin Prealbumin LDL Cholesterol Direct HDL Cholesterol Vitamin B12 TSH PTH Intact Urine Creatinine Urine Total Protein Vancomycin Trough Salicylates Acetaminophen Crossmatch 03/19/19 03/19/19 03/19/19 21:19 22:07 23:00 WBC RBC Hgb Hct MCV MCH MCHC RDW Plt Count Lymph % (Auto) Moore % (Auto) Lymph # Moore # Seg Neutrophils % Seg Neuts % (Manual) Lymphocytes % (Manual) Monocytes % (Manual) Eosinophils % (Manual) Nucleated RBC % Seg Neutrophils # Seg Neutrophils # Man Lymphocytes # (Manual) Monocytes # (Manual) Eosinophils # (Manual) PT INR APTT POC ABG pH POC ABG pCO2 POC ABG pO2 Sodium Potassium Chloride Carbon Dioxide BUN Creatinine Glucose POC Glucose < 40 L 136 H Lactic Acid 6.10 H* Calcium Phosphorus Magnesium Iron TIBC AST Total Creatine Kinase Troponin T Total Protein Albumin Prealbumin LDL Cholesterol Direct HDL Cholesterol Vitamin B12 TSH PTH Intact Urine Creatinine Urine Total Protein Vancomycin Trough Salicylates Acetaminophen Crossmatch 03/20/19 03/20/19 03/20/19 00:05 01:38 02:23 WBC RBC Hgb Hct MCV MCH MCHC RDW Plt Count Lymph % (Auto) Moore % (Auto) Lymph # Moore # Seg Neutrophils % Seg Neuts % (Manual) Lymphocytes % (Manual) Monocytes % (Manual) Eosinophils % (Manual) Nucleated RBC % Seg Neutrophils # Seg Neutrophils # Man Lymphocytes # (Manual) Monocytes # (Manual) Eosinophils # (Manual) PT INR APTT POC ABG pH POC ABG pCO2 POC ABG pO2 Sodium Potassium Chloride Carbon Dioxide BUN Creatinine Glucose POC Glucose 68 L 153 H 127 H Lactic Acid Calcium Phosphorus Magnesium Iron TIBC AST Total Creatine Kinase Troponin T Total Protein Albumin Prealbumin LDL Cholesterol Direct HDL Cholesterol Vitamin B12 TSH PTH Intact Urine Creatinine Urine Total Protein Vancomycin Trough Salicylates Acetaminophen Crossmatch 03/20/19 03/20/19 03/20/19 03:12 04:31 04:41 WBC RBC Hgb Hct MCV MCH MCHC RDW Plt Count Lymph % (Auto) Moore % (Auto) Lymph # Moore # Seg Neutrophils % Seg Neuts % (Manual) Lymphocytes % (Manual) Monocytes % (Manual) Eosinophils % (Manual) Nucleated RBC % Seg Neutrophils # Seg Neutrophils # Man Lymphocytes # (Manual) Monocytes # (Manual) Eosinophils # (Manual) PT INR APTT POC ABG pH POC ABG pCO2 POC ABG pO2 53 L 65 L Sodium Potassium Chloride Carbon Dioxide BUN Creatinine Glucose POC Glucose 109 H Lactic Acid Calcium Phosphorus Magnesium Iron TIBC AST Total Creatine Kinase Troponin T Total Protein Albumin Prealbumin LDL Cholesterol Direct HDL Cholesterol Vitamin B12 TSH PTH Intact Urine Creatinine Urine Total Protein Vancomycin Trough Salicylates Acetaminophen Crossmatch 03/20/19 03/20/19 03/20/19 05:50 07:29 08:14 WBC RBC Hgb Hct MCV MCH MCHC RDW Plt Count Lymph % (Auto) Moore % (Auto) Lymph # Moore # Seg Neutrophils % Seg Neuts % (Manual) Lymphocytes % (Manual) Monocytes % (Manual) Eosinophils % (Manual) Nucleated RBC % Seg Neutrophils # Seg Neutrophils # Man Lymphocytes # (Manual) Monocytes # (Manual) Eosinophils # (Manual) PT INR APTT POC ABG pH POC ABG pCO2 POC ABG pO2 Sodium Potassium Chloride Carbon Dioxide BUN Creatinine Glucose 61 L POC Glucose 47 L 153 H Lactic Acid Calcium Phosphorus Magnesium 1.60 L Iron TIBC AST Total Creatine Kinase Troponin T Total Protein Albumin Prealbumin LDL Cholesterol Direct HDL Cholesterol Vitamin B12 TSH PTH Intact Urine Creatinine Urine Total Protein Vancomycin Trough Salicylates Acetaminophen Crossmatch 03/20/19 03/20/19 03/20/19 08:23 08:23 10:59 WBC RBC Hgb Hct MCV MCH MCHC RDW Plt Count Lymph % (Auto) Moore % (Auto) Lymph # Moore # Seg Neutrophils % Seg Neuts % (Manual) Lymphocytes % (Manual) Monocytes % (Manual) Eosinophils % (Manual) Nucleated RBC % Seg Neutrophils # Seg Neutrophils # Man Lymphocytes # (Manual) Monocytes # (Manual) Eosinophils # (Manual) PT INR APTT POC ABG pH POC ABG pCO2 POC ABG pO2 Sodium Potassium Chloride Carbon Dioxide BUN Creatinine Glucose 101 H POC Glucose 233 H Lactic Acid 9.70 H* Calcium Phosphorus Magnesium Iron TIBC AST Total Creatine Kinase Troponin T Total Protein Albumin Prealbumin 0.052 L LDL Cholesterol Direct HDL Cholesterol Vitamin B12 TSH PTH Intact Urine Creatinine Urine Total Protein Vancomycin Trough Salicylates Acetaminophen Crossmatch 03/20/19 03/20/19 03/20/19 12:23 16:10 16:40 WBC RBC Hgb Hct MCV MCH MCHC RDW Plt Count Lymph % (Auto) Moore % (Auto) Lymph # Moore # Seg Neutrophils % Seg Neuts % (Manual) Lymphocytes % (Manual) Monocytes % (Manual) Eosinophils % (Manual) Nucleated RBC % Seg Neutrophils # Seg Neutrophils # Man Lymphocytes # (Manual) Monocytes # (Manual) Eosinophils # (Manual) PT INR APTT POC ABG pH POC ABG pCO2 POC ABG pO2 Sodium Potassium Chloride Carbon Dioxide BUN Creatinine Glucose POC Glucose 135 H 171 H Lactic Acid Calcium Phosphorus Magnesium Iron TIBC AST Total Creatine Kinase Troponin T Total Protein Albumin Prealbumin LDL Cholesterol Direct HDL Cholesterol Vitamin B12 TSH PTH Intact Urine Creatinine 53.7 H Urine Total Protein 36 H Vancomycin Trough Salicylates Acetaminophen Crossmatch 03/20/19 03/20/19 03/20/19 16:57 17:38 17:50 WBC RBC Hgb Hct MCV MCH MCHC RDW Plt Count Lymph % (Auto) Moore % (Auto) Lymph # Moore # Seg Neutrophils % Seg Neuts % (Manual) Lymphocytes % (Manual) Monocytes % (Manual) Eosinophils % (Manual) Nucleated RBC % Seg Neutrophils # Seg Neutrophils # Man Lymphocytes # (Manual) Monocytes # (Manual) Eosinophils # (Manual) PT INR APTT POC ABG pH POC ABG pCO2 POC ABG pO2 Sodium Potassium Chloride Carbon Dioxide BUN Creatinine Glucose POC Glucose 152 H 147 H Lactic Acid 9.90 H* Calcium Phosphorus Magnesium Iron TIBC AST Total Creatine Kinase Troponin T Total Protein Albumin Prealbumin LDL Cholesterol Direct HDL Cholesterol Vitamin B12 TSH PTH Intact Urine Creatinine Urine Total Protein Vancomycin Trough Salicylates Acetaminophen Crossmatch 07/22/19 07/22/19 07/22/19 17:50 17:50 17:50 WBC RBC 2.92 L Hgb 10.0 L Hct 29.3 L MCV 100 H MCH 34 H MCHC RDW Plt Count 81 L Lymph % (Auto) Moore % (Auto) Lymph # Moore # Seg Neutrophils % Seg Neuts % (Manual) Lymphocytes % (Manual) Monocytes % (Manual) Eosinophils % (Manual) Nucleated RBC % Seg Neutrophils # Seg Neutrophils # Man Lymphocytes # (Manual) Monocytes # (Manual) Eosinophils # (Manual) PT INR APTT POC ABG pH POC ABG pCO2 POC ABG pO2 Sodium Potassium 2.8 L* D Chloride Carbon Dioxide BUN 30 H Creatinine 1.6 H Glucose 107 H POC Glucose Lactic Acid Calcium 6.9 L Phosphorus 2.00 L Magnesium Iron TIBC AST Total Creatine Kinase Troponin T Total Protein Albumin Prealbumin LDL Cholesterol Direct HDL Cholesterol Vitamin B12 TSH PTH Intact 171.6 H Urine Creatinine Urine Total Protein Vancomycin Trough Salicylates Acetaminophen Crossmatch 03/20/19 03/21/19 03/21/19 21:12 00:30 04:12 WBC RBC Hgb Hct MCV MCH MCHC RDW Plt Count Lymph % (Auto) Moore % (Auto) Lymph # Moore # Seg Neutrophils % Seg Neuts % (Manual) Lymphocytes % (Manual) Monocytes % (Manual) Eosinophils % (Manual) Nucleated RBC % Seg Neutrophils # Seg Neutrophils # Man Lymphocytes # (Manual) Monocytes # (Manual) Eosinophils # (Manual) PT INR APTT POC ABG pH POC ABG pCO2 POC ABG pO2 Sodium Potassium 3.0 L Chloride Carbon Dioxide 21 L BUN Creatinine 1.4 H Glucose 103 H POC Glucose Lactic Acid 8.70 H* 9.40 H* Calcium 6.8 L Phosphorus Magnesium Iron TIBC AST Total Creatine Kinase Troponin T Total Protein Albumin Prealbumin LDL Cholesterol Direct HDL Cholesterol Vitamin B12 TSH PTH Intact Urine Creatinine Urine Total Protein Vancomycin Trough Salicylates Acetaminophen Crossmatch 03/21/19 03/21/19 03/21/19 04:12 04:12 04:43 WBC RBC 2.84 L Hgb 9.5 L Hct 28.3 L MCV 100 H MCH 33 H MCHC RDW Plt Count 79 L Lymph % (Auto) Moore % (Auto) Lymph # Moore # Seg Neutrophils % Seg Neuts % (Manual) Lymphocytes % (Manual) Monocytes % (Manual) Eosinophils % (Manual) Nucleated RBC % Seg Neutrophils # Seg Neutrophils # Man Lymphocytes # (Manual) Monocytes # (Manual) Eosinophils # (Manual) PT INR APTT POC ABG pH 7.456 H POC ABG pCO2 POC ABG pO2 Sodium Potassium Chloride Carbon Dioxide BUN Creatinine Glucose POC Glucose Lactic Acid 9.50 H* Calcium Phosphorus Magnesium Iron TIBC AST Total Creatine Kinase Troponin T Total Protein Albumin Prealbumin LDL Cholesterol Direct HDL Cholesterol Vitamin B12 TSH PTH Intact Urine Creatinine Urine Total Protein Vancomycin Trough Salicylates Acetaminophen Crossmatch 03/21/19 03/21/19 03/21/19 08:06 08:08 10:11 WBC RBC Hgb Hct MCV MCH MCHC RDW Plt Count Lymph % (Auto) Moore % (Auto) Lymph # Moore # Seg Neutrophils % Seg Neuts % (Manual) Lymphocytes % (Manual) Monocytes % (Manual) Eosinophils % (Manual) Nucleated RBC % Seg Neutrophils # Seg Neutrophils # Man Lymphocytes # (Manual) Monocytes # (Manual) Eosinophils # (Manual) PT INR APTT POC ABG pH POC ABG pCO2 POC ABG pO2 Sodium Potassium 3.5 L Chloride Carbon Dioxide BUN 22 H Creatinine 1.3 H Glucose POC Glucose 64 L Lactic Acid 8.00 H* Calcium 7.0 L Phosphorus Magnesium Iron TIBC AST Total Creatine Kinase Troponin T Total Protein Albumin Prealbumin LDL Cholesterol Direct HDL Cholesterol Vitamin B12 TSH PTH Intact Urine Creatinine Urine Total Protein Vancomycin Trough Salicylates Acetaminophen Crossmatch 03/21/19 03/21/19 03/21/19 11:17 12:17 13:37 WBC RBC Hgb Hct MCV MCH MCHC RDW Plt Count Lymph % (Auto) Moore % (Auto) Lymph # Moore # Seg Neutrophils % Seg Neuts % (Manual) Lymphocytes % (Manual) Monocytes % (Manual) Eosinophils % (Manual) Nucleated RBC % Seg Neutrophils # Seg Neutrophils # Man Lymphocytes # (Manual) Monocytes # (Manual) Eosinophils # (Manual) PT INR APTT POC ABG pH POC ABG pCO2 POC ABG pO2 Sodium Potassium Chloride Carbon Dioxide BUN Creatinine Glucose POC Glucose 173 H 110 H Lactic Acid Calcium Phosphorus Magnesium Iron TIBC AST Total Creatine Kinase Troponin T 0.033 H D Total Protein Albumin Prealbumin LDL Cholesterol Direct HDL Cholesterol Vitamin B12 TSH PTH Intact Urine Creatinine Urine Total Protein Vancomycin Trough Salicylates Acetaminophen Crossmatch 03/21/19 03/21/19 03/21/19 13:37 17:21 18:52 WBC RBC Hgb Hct MCV MCH MCHC RDW Plt Count Lymph % (Auto) Moore % (Auto) Lymph # Moore # Seg Neutrophils % Seg Neuts % (Manual) Lymphocytes % (Manual) Monocytes % (Manual) Eosinophils % (Manual) Nucleated RBC % Seg Neutrophils # Seg Neutrophils # Man Lymphocytes # (Manual) Monocytes # (Manual) Eosinophils # (Manual) PT INR APTT POC ABG pH POC ABG pCO2 POC ABG pO2 Sodium Potassium Chloride Carbon Dioxide BUN Creatinine Glucose POC Glucose 130 H 107 H Lactic Acid 6.80 H* Calcium Phosphorus Magnesium Iron TIBC AST Total Creatine Kinase Troponin T Total Protein Albumin Prealbumin LDL Cholesterol Direct HDL Cholesterol Vitamin B12 TSH PTH Intact Urine Creatinine Urine Total Protein Vancomycin Trough Salicylates Acetaminophen Crossmatch 03/21/19 03/21/19 03/21/19 20:20 22:08 23:05 WBC RBC Hgb Hct MCV MCH MCHC RDW Plt Count Lymph % (Auto) Moore % (Auto) Lymph # Moore # Seg Neutrophils % Seg Neuts % (Manual) Lymphocytes % (Manual) Monocytes % (Manual) Eosinophils % (Manual) Nucleated RBC % Seg Neutrophils # Seg Neutrophils # Man Lymphocytes # (Manual) Monocytes # (Manual) Eosinophils # (Manual) PT INR APTT POC ABG pH POC ABG pCO2 POC ABG pO2 Sodium Potassium Chloride Carbon Dioxide BUN Creatinine Glucose POC Glucose 106 H 106 H Lactic Acid Calcium Phosphorus Magnesium Iron TIBC AST Total Creatine Kinase Troponin T 0.036 H Total Protein Albumin Prealbumin LDL Cholesterol Direct HDL Cholesterol Vitamin B12 TSH PTH Intact Urine Creatinine Urine Total Protein Vancomycin Trough Salicylates Acetaminophen Crossmatch 03/21/19 03/21/19 03/22/19 23:05 23:05 00:14 WBC RBC Hgb Hct MCV MCH MCHC RDW Plt Count Lymph % (Auto) Moore % (Auto) Lymph # Moore # Seg Neutrophils % Seg Neuts % (Manual) Lymphocytes % (Manual) Monocytes % (Manual) Eosinophils % (Manual) Nucleated RBC % Seg Neutrophils # Seg Neutrophils # Man Lymphocytes # (Manual) Monocytes # (Manual) Eosinophils # (Manual) PT INR APTT POC ABG pH POC ABG pCO2 POC ABG pO2 Sodium Potassium Chloride Carbon Dioxide BUN Creatinine Glucose POC Glucose 122 H 109 H Lactic Acid 7.00 H* Calcium Phosphorus Magnesium Iron TIBC AST Total Creatine Kinase Troponin T Total Protein Albumin Prealbumin LDL Cholesterol Direct HDL Cholesterol Vitamin B12 TSH PTH Intact Urine Creatinine Urine Total Protein Vancomycin Trough Salicylates Acetaminophen Crossmatch 0703/22/19 03/22/19 03:10 04:02 05:11 WBC RBC Hgb Hct MCV MCH MCHC RDW Plt Count Lymph % (Auto) Moore % (Auto) Lymph # Moore # Seg Neutrophils % Seg Neuts % (Manual) Lymphocytes % (Manual) Monocytes % (Manual) Eosinophils % (Manual) Nucleated RBC % Seg Neutrophils # Seg Neutrophils # Man Lymphocytes # (Manual) Monocytes # (Manual) Eosinophils # (Manual) PT INR APTT POC ABG pH 7.487 H POC ABG pCO2 POC ABG pO2 67 L Sodium Potassium Chloride Carbon Dioxide BUN Creatinine Glucose POC Glucose 114 H 112 H Lactic Acid Calcium Phosphorus Magnesium Iron TIBC AST Total Creatine Kinase Troponin T Total Protein Albumin Prealbumin LDL Cholesterol Direct HDL Cholesterol Vitamin B12 TSH PTH Intact Urine Creatinine Urine Total Protein Vancomycin Trough Salicylates Acetaminophen Crossmatch 03/22/19 03/22/19 03/22/19 06:06 06:10 06:10 WBC RBC Hgb Hct MCV MCH MCHC RDW Plt Count Lymph % (Auto) Moore % (Auto) Lymph # Moore # Seg Neutrophils % Seg Neuts % (Manual) Lymphocytes % (Manual) Monocytes % (Manual) Eosinophils % (Manual) Nucleated RBC % Seg Neutrophils # Seg Neutrophils # Man Lymphocytes # (Manual) Monocytes # (Manual) Eosinophils # (Manual) PT INR APTT POC ABG pH POC ABG pCO2 POC ABG pO2 Sodium Potassium 3.0 L Chloride Carbon Dioxide BUN Creatinine Glucose POC Glucose 115 H Lactic Acid Calcium 7.0 L Phosphorus Magnesium Iron TIBC AST Total Creatine Kinase Troponin T 0.036 H Total Protein Albumin Prealbumin LDL Cholesterol Direct HDL Cholesterol Vitamin B12 TSH PTH Intact Urine Creatinine Urine Total Protein Vancomycin Trough Salicylates Acetaminophen Crossmatch 03/22/19 03/22/19 03/22/19 06:10 06:10 11:59 WBC RBC Hgb Hct MCV MCH MCHC RDW Plt Count Lymph % (Auto) Moore % (Auto) Lymph # Moore # Seg Neutrophils % Seg Neuts % (Manual) Lymphocytes % (Manual) Monocytes % (Manual) Eosinophils % (Manual) Nucleated RBC % Seg Neutrophils # Seg Neutrophils # Man Lymphocytes # (Manual) Monocytes # (Manual) Eosinophils # (Manual) PT INR APTT POC ABG pH POC ABG pCO2 POC ABG pO2 Sodium Potassium Chloride Carbon Dioxide BUN Creatinine Glucose POC Glucose Lactic Acid 4.80 H* 3.80 H* Calcium Phosphorus Magnesium Iron TIBC AST Total Creatine Kinase Troponin T Total Protein Albumin Prealbumin LDL Cholesterol Direct HDL Cholesterol Vitamin B12 TSH 7.810 H PTH Intact Urine Creatinine Urine Total Protein Vancomycin Trough Salicylates Acetaminophen Crossmatch 03/22/19 03/22/19 03/22/19 13:45 13:45 13:45 WBC RBC Hgb 8.3 L Hct 24.5 L MCV MCH MCHC RDW Plt Count 56 L Lymph % (Auto) Moore % (Auto) Lymph # Moore # Seg Neutrophils % Seg Neuts % (Manual) Lymphocytes % (Manual) Monocytes % (Manual) Eosinophils % (Manual) Nucleated RBC % Seg Neutrophils # Seg Neutrophils # Man Lymphocytes # (Manual) Monocytes # (Manual) Eosinophils # (Manual) PT 21.4 H INR 1.90 H APTT 43.2 H POC ABG pH POC ABG pCO2 POC ABG pO2 Sodium Potassium Chloride Carbon Dioxide BUN Creatinine Glucose POC Glucose Lactic Acid 3.50 H* Calcium Phosphorus Magnesium Iron TIBC AST Total Creatine Kinase Troponin T Total Protein Albumin Prealbumin LDL Cholesterol Direct HDL Cholesterol Vitamin B12 TSH PTH Intact Urine Creatinine Urine Total Protein Vancomycin Trough Salicylates Acetaminophen Crossmatch 03/22/19 03/23/19 03/23/19 22:20 01:06 04:50 WBC 12.1 H RBC 2.36 L Hgb 7.7 L Hct 22.9 L MCV MCH 33 H MCHC RDW Plt Count 37 L Lymph % (Auto) Moore % (Auto) Lymph # Moore # Seg Neutrophils % Seg Neuts % (Manual) 83.0 H Lymphocytes % (Manual) 8.0 L Monocytes % (Manual) Eosinophils % (Manual) Nucleated RBC % Seg Neutrophils # Seg Neutrophils # Man 10.0 H Lymphocytes # (Manual) 1.0 L Monocytes # (Manual) Eosinophils # (Manual) PT INR APTT POC ABG pH POC ABG pCO2 POC ABG pO2 Sodium Potassium Chloride Carbon Dioxide BUN Creatinine Glucose POC Glucose Lactic Acid 3.60 H* 2.70 H* Calcium Phosphorus Magnesium Iron TIBC AST Total Creatine Kinase Troponin T Total Protein Albumin Prealbumin LDL Cholesterol Direct HDL Cholesterol Vitamin B12 TSH PTH Intact Urine Creatinine Urine Total Protein Vancomycin Trough Salicylates Acetaminophen Crossmatch 03/23/19 03/23/19 03/23/19 04:50 05:25 05:53 WBC RBC Hgb Hct MCV MCH MCHC RDW Plt Count Lymph % (Auto) Moore % (Auto) Lymph # Moore # Seg Neutrophils % Seg Neuts % (Manual) Lymphocytes % (Manual) Monocytes % (Manual) Eosinophils % (Manual) Nucleated RBC % Seg Neutrophils # Seg Neutrophils # Man Lymphocytes # (Manual) Monocytes # (Manual) Eosinophils # (Manual) PT INR APTT POC ABG pH POC ABG pCO2 33.3 L POC ABG pO2 Sodium Potassium 3.5 L Chloride 108.3 H Carbon Dioxide BUN Creatinine Glucose POC Glucose 68 L Lactic Acid Calcium 7.3 L Phosphorus Magnesium Iron TIBC AST Total Creatine Kinase Troponin T Total Protein Albumin Prealbumin LDL Cholesterol Direct HDL Cholesterol Vitamin B12 TSH PTH Intact Urine Creatinine Urine Total Protein Vancomycin Trough Salicylates Acetaminophen Crossmatch 03/24/19 03/24/19 03/24/19 03:26 05:50 05:57 WBC RBC Hgb Hct MCV MCH MCHC RDW Plt Count Lymph % (Auto) Moore % (Auto) Lymph # Moore # Seg Neutrophils % Seg Neuts % (Manual) Lymphocytes % (Manual) Monocytes % (Manual) Eosinophils % (Manual) Nucleated RBC % Seg Neutrophils # Seg Neutrophils # Man Lymphocytes # (Manual) Monocytes # (Manual) Eosinophils # (Manual) PT INR APTT POC ABG pH POC ABG pCO2 POC ABG pO2 78 L Sodium Potassium 3.4 L Chloride 116.5 H Carbon Dioxide 21 L BUN Creatinine 0.5 L Glucose 105 H POC Glucose 127 H Lactic Acid Calcium 6.4 L Phosphorus Magnesium Iron TIBC AST Total Creatine Kinase Troponin T Total Protein Albumin Prealbumin LDL Cholesterol Direct HDL Cholesterol Vitamin B12 TSH PTH Intact Urine Creatinine Urine Total Protein Vancomycin Trough Salicylates Acetaminophen Crossmatch 03/24/19 03/24/19 03/24/19 06:00 11:30 12:25 WBC 13.6 H RBC 2.08 L Hgb 6.9 L Hct 20.5 L MCV 99 H MCH 33 H MCHC RDW Plt Count 50 L Lymph % (Auto) 8.1 L Moore % (Auto) 10.0 H Lymph # 1.1 L Moore # 1.4 H Seg Neutrophils % 80.7 H Seg Neuts % (Manual) Lymphocytes % (Manual) Monocytes % (Manual) Eosinophils % (Manual) Nucleated RBC % Seg Neutrophils # 11.0 H Seg Neutrophils # Man Lymphocytes # (Manual) Monocytes # (Manual) Eosinophils # (Manual) PT INR APTT POC ABG pH POC ABG pCO2 POC ABG pO2 Sodium Potassium Chloride Carbon Dioxide BUN Creatinine Glucose POC Glucose 111 H Lactic Acid Calcium Phosphorus Magnesium Iron TIBC AST Total Creatine Kinase Troponin T Total Protein Albumin Prealbumin LDL Cholesterol Direct HDL Cholesterol Vitamin B12 TSH PTH Intact Urine Creatinine Urine Total Protein Vancomycin Trough Salicylates Acetaminophen Crossmatch See Detail 03/24/19 03/25/19 03/25/19 14:25 05:20 10:00 WBC 13.4 H RBC 2.54 L Hgb 8.1 L Hct 24.3 L MCV MCH MCHC RDW 17.3 H Plt Count 44 L Lymph % (Auto) Moore % (Auto) Lymph # Moore # Seg Neutrophils % Seg Neuts % (Manual) Lymphocytes % (Manual) Monocytes % (Manual) Eosinophils % (Manual) Nucleated RBC % Seg Neutrophils # Seg Neutrophils # Man Lymphocytes # (Manual) Monocytes # (Manual) Eosinophils # (Manual) PT INR APTT POC ABG pH POC ABG pCO2 POC ABG pO2 Sodium Potassium Chloride Carbon Dioxide BUN Creatinine Glucose POC Glucose 111 H Lactic Acid Calcium Phosphorus Magnesium Iron 32 L TIBC 75 L AST Total Creatine Kinase Troponin T Total Protein Albumin Prealbumin LDL Cholesterol Direct HDL Cholesterol Vitamin B12 TSH PTH Intact Urine Creatinine Urine Total Protein Vancomycin Trough Salicylates Acetaminophen Crossmatch 03/25/19 03/25/19 03/25/19 10:11 10:11 23:11 WBC RBC Hgb Hct MCV MCH MCHC RDW Plt Count Lymph % (Auto) Moore % (Auto) Lymph # Moore # Seg Neutrophils % Seg Neuts % (Manual) Lymphocytes % (Manual) Monocytes % (Manual) Eosinophils % (Manual) Nucleated RBC % Seg Neutrophils # Seg Neutrophils # Man Lymphocytes # (Manual) Monocytes # (Manual) Eosinophils # (Manual) PT INR APTT POC ABG pH POC ABG pCO2 POC ABG pO2 Sodium Potassium Chloride 112.0 H Carbon Dioxide BUN 20 H Creatinine 0.6 L Glucose POC Glucose 112 H Lactic Acid Calcium 7.2 L Phosphorus Magnesium Iron TIBC AST Total Creatine Kinase Troponin T Total Protein Albumin Prealbumin LDL Cholesterol Direct HDL Cholesterol Vitamin B12 > 2000 H TSH PTH Intact Urine Creatinine Urine Total Protein Vancomycin Trough Salicylates Acetaminophen Crossmatch 03/26/19 03/26/19 03/26/19 05:00 05:00 05:16 WBC 14.4 H RBC 2.74 L Hgb 8.9 L Hct 25.7 L MCV MCH 33 H MCHC 35 H RDW 16.9 H Plt Count 60 L Lymph % (Auto) Moore % (Auto) Lymph # Moore # Seg Neutrophils % Seg Neuts % (Manual) 83.0 H Lymphocytes % (Manual) 5.0 L Monocytes % (Manual) Eosinophils % (Manual) 5.0 H Nucleated RBC % 1.0 H Seg Neutrophils # Seg Neutrophils # Man 12.0 H Lymphocytes # (Manual) 0.7 L Monocytes # (Manual) 0.9 H Eosinophils # (Manual) 0.7 H PT INR APTT POC ABG pH POC ABG pCO2 POC ABG pO2 Sodium Potassium 3.1 L Chloride 110.4 H Carbon Dioxide BUN 22 H Creatinine Glucose 101 H POC Glucose 114 H Lactic Acid Calcium 7.4 L Phosphorus Magnesium Iron TIBC AST Total Creatine Kinase Troponin T Total Protein Albumin Prealbumin LDL Cholesterol Direct HDL Cholesterol Vitamin B12 TSH PTH Intact Urine Creatinine Urine Total Protein Vancomycin Trough Salicylates Acetaminophen Crossmatch 03/26/19 03/27/19 03/27/19 11:55 09:04 09:04 WBC RBC Hgb Hct MCV MCH MCHC RDW Plt Count Lymph % (Auto) Moore % (Auto) Lymph # Moore # Seg Neutrophils % Seg Neuts % (Manual) Lymphocytes % (Manual) Monocytes % (Manual) Eosinophils % (Manual) Nucleated RBC % Seg Neutrophils # Seg Neutrophils # Man Lymphocytes # (Manual) Monocytes # (Manual) Eosinophils # (Manual) PT INR APTT POC ABG pH POC ABG pCO2 POC ABG pO2 Sodium Potassium 3.2 L Chloride Carbon Dioxide BUN 22 H Creatinine Glucose POC Glucose 121 H Lactic Acid Calcium 7.7 L Phosphorus Magnesium Iron TIBC AST Total Creatine Kinase Troponin T Total Protein Albumin Prealbumin LDL Cholesterol Direct HDL Cholesterol Vitamin B12 TSH PTH Intact Urine Creatinine Urine Total Protein Vancomycin Trough 23.0 H Salicylates Acetaminophen Crossmatch 03/27/19 09:04 WBC 14.8 H RBC 2.52 L Hgb 8.0 L Hct 24.0 L MCV MCH MCHC RDW 17.0 H Plt Count 89 L Lymph % (Auto) Moore % (Auto) 8.8 H Lymph # Moore # 1.3 H Seg Neutrophils % 70.7 H Seg Neuts % (Manual) Lymphocytes % (Manual) Monocytes % (Manual) Eosinophils % (Manual) Nucleated RBC % Seg Neutrophils # 10.5 H Seg Neutrophils # Man Lymphocytes # (Manual) Monocytes # (Manual) Eosinophils # (Manual) PT INR APTT POC ABG pH POC ABG pCO2 POC ABG pO2 Sodium Potassium Chloride Carbon Dioxide BUN Creatinine Glucose POC Glucose Lactic Acid Calcium Phosphorus Magnesium Iron TIBC AST Total Creatine Kinase Troponin T Total Protein Albumin Prealbumin LDL Cholesterol Direct HDL Cholesterol Vitamin B12 TSH PTH Intact Urine Creatinine Urine Total Protein Vancomycin Trough Salicylates Acetaminophen Crossmatch
[2019-03-27] MEDS ORDERED: SUBLIMAZE IV ONE (11:00)
--- NOTE | 2019-03-27 11:56 | Progress Note ---
Assessment and Plan Cultures/ID related labs: Blood culture 03/19/2019 negative. Urine culture 03/19/2019 negative. 03/23/2019 tracheal aspirate culture: Usual resp maday Assessment: 73 y/o female with history of dementia, prior CVA, on home hospice admitted on 03/20/2019 brought by EMS due to altered mental status: 1) Sepsis with septic shock: source pneumonia but persistent fever. UA negative. Blood culture 03/19/2019 no growth. Urine culture 03/19/2019 negative. Would continue meropenem for now and monitor for improvement. 2) Bilateral pneumonia: ? aspiration v/s CAP. Pulm to bronch and send for cultures. Will follow up on cultures. 3) Acute encephalopathy: CT head without contrast shows encephalomalacia in the entire right cerebral hemisphere, volume loss in the left cerebral hemisphere, no acute parenchymal lesion in the brain. 4) Acute respiratory failure: remains intubated, on the vent. 5) HA: improved. 6) Persistent fevers - ICU checking Dopplers of all limbs to rule out DVT as she has not been on prophylaxis secondary to thrombocytopenia. Discussed with Dr. Gooden Will continue to follow along with you. Recommendations: f/u Dopplers and bronchoscopy cultures continue IV Meropenem 1 gm q8 hrs Guarded prognosis, was on home hospice prior to admission Sandra Johns MD [facility] C: [phone] O: [phone] F: [phone] Subjective Date of service: 03/27/19 Principal diagnosis: resp fail sepsis Interval history: Remains intubated, not following commands today. in room, hopeful she turns corner. Objective - Exam Narrative Exam: Constitutional: awake, intubated, not following commands Head, Ears, Nose: Normocephalic, atraumatic. External ears, nose normal Eyes: Conjunctivae/corneas clear. No icterus. No ptosis. Neck: Supple, no meningeal signs Oral: Intubated Cardiovascular: S1, S2 normal. Normal rhythm Respiratory: Good air entry, clear to auscultation bilaterally GI: Soft, non-tender; bowel sounds normal. No peritoneal signs Musculoskeletal: B/L pedal edema, Skin: No rash or abscess Hem/Lymphatic: No palpable cervical or supraclavicular nodes. No lymphangitis Psych: no agitation Neurological: Intubated - Constitutional Vitals: Vital Signs Temp Pulse Resp BP Pulse Ox 101 F H 92 H 17 99/44 98 03/27/19 08:00 03/27/19 11:30 03/27/19 11:30 03/27/19 11:30 03/27/19 11:30 Temperature -Last 24 Hours Temperature 101 F Temperature 100.4 F Temperature 100.2 F Temperature 99.8 F Temperature 99.1 F Temperature 98.5 F - EENT Ears: right: other - Labs CBC & Chem 7: 03/27/19 09:04 03/27/19 09:04 Labs: Abnormal lab results 03/26/19 03/27/19 03/27/19 Range/Units 11:55 09:04 09:04 WBC (4.5-11.0) K/mm3 RBC (3.65-5.03) M/mm3 Hgb (10.1-14.3) gm/dl Hct (30.3-42.9) % RDW (13.2-15.2) % Plt Count (140-440) K/mm3 [place] % (Auto) (0.0-7.3) % [place] # (0.0-0.8) K/mm3 Seg Neutrophils % (40.0-70.0) % Seg Neutrophils # (1.8-7.7) K/mm3 Potassium 3.2 L (3.6-5.0) mmol/L BUN 22 H (7-17) mg/dL POC Glucose 121 H (70-105) Calcium 7.7 L (8.4-10.2) mg/dL Vancomycin Trough 23.0 H (5.0-20.0) ug/mL 03/27/19 Range/Units 09:04 WBC 14.8 H (4.5-11.0) K/mm3 RBC 2.52 L (3.65-5.03) M/mm3 Hgb 8.0 L (10.1-14.3) gm/dl Hct 24.0 L (30.3-42.9) % RDW 17.0 H (13.2-15.2) % Plt Count 89 L (140-440) K/mm3 [place] % (Auto) 8.8 H (0.0-7.3) % [place] # 1.3 H (0.0-0.8) K/mm3 Seg Neutrophils % 70.7 H (40.0-70.0) % Seg Neutrophils # 10.5 H (1.8-7.7) K/mm3 Potassium (3.6-5.0) mmol/L BUN (7-17) mg/dL POC Glucose (70-105) Calcium (8.4-10.2) mg/dL Vancomycin Trough (5.0-20.0) ug/mL - Imaging and cardiology CT scan - abdomen: image reviewed (Small free fluid and subcutaneous edema) CT scan - chest: image reviewed (Multifocal airspace disease concerning for pneumonia)
--- NOTE | 2019-03-27 13:46 | Vascular Lab Report ---
BILATERAL UPPER EXTREMITY VENOUS DOPPLER ULTRASOUND HISTORY: Upper extremity pain and swelling. COMPARISON: None. TECHNIQUE: Grayscale, color and spectral Doppler imaging of the venous system of both upper extremiti es was performed. FINDINGS: Right Upper Extremity: Internal Jugular Vein: Occluding thrombus is identified in the right internal jugular vein which appe ars to surround a right IJ catheter. Subclavian Vein: Normal grayscale appearance and flow. Axillary Vein: Normal venous flow, compressibility and augmentation. Brachial vein: Normal venous flow, compressibility and augmentation. Basilic vein: Normal venous flow, compressibility and augmentation. Cephalic vein: Normal venous flow, compressibility and augmentation. Left Upper Extremity: Internal Jugular Vein: Normal grayscale appearance and flow. Subclavian Vein: Normal grayscale appearance and flow. Axillary Vein: Normal venous flow, compressibility and augmentation. Brachial vein: Normal venous flow, compressibility and augmentation. Basilic vein: Normal venous flow, compressibility and augmentation. Cephalic vein: Normal venous flow, compressibility and augmentation. Additional Findings: None. IMPRESSION: 1. Occluding or nearly occluding thrombus is identified in the right internal jugular vein at the sit e of a catheter. Signer Name: Jesus Snow Jr, MD Signed: 03/27/2019 1:42 PM Workstation Name: [id number]
--- NOTE | 2019-03-27 13:49 | Vascular Lab Report ---
DUPLEX DOPPLER LOWER EXTREMITY VEINS, BILATERAL INDICATION: Persistent Fever. Bilateral lower extremity swelling TECHNIQUE: Duplex doppler imaging was performed through the veins of both lower extremities using ve nous compression and other maneuvers. COMPARISON: No relevant prior imaging study available. FINDINGS: Right Common femoral vein: Positive. Right Superficial femoral vein: Negative. Right Popliteal vein: Negative. Right Calf veins: Negative. Left Common femoral vein: Negative. Left Superficial femoral vein: Negative. Left Popliteal vein: Negative. Left Calf veins: Negative. Additional findings: Superficial venous thrombosis is noted in the proximal right greater saphenous v ein.. IMPRESSION: Positive for DVT in the right common femoral vein. Superficial venous thrombosis is identified in th e proximal right greater saphenous vein. Signer Name: Jesus Snow Jr, MD Signed: 03/27/2019 1:45 PM Workstation Name: [id number]
--- NOTE | 2019-03-27 13:53 | Progress Note ---
Assessment and Plan Acute metabolic encephalopathy, - cont supportive care, CT head negative Acute hypoxic respiratory s/p ETT placement: consulted CCM, wean off vent as tolerated, scheduled nebs Sepsis due to aspiration pneumonia; treat with iv abx, follow cx Septic shock: off pressor, weaned off, BP now stable Paroxysmal Atrial fib, Now NSR - on amioderone, renally dosed digoxin - Started low dose metoprolol every 6 hours po - Anticoagulation on hold due to anemia and thrombocytopenia HA (acute kidney injury), atn and vasomotor nephrology, poa: IV fluids for now, Nephrology consulted - renal function improved Anemia, 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 Upon arrival to the emergency room, the patient is obtunded, breathing without difficulty, desaturating, without a gag reflex. Therefore, patient placed on nasal cannula at 15 L/m, and then intubated without difficulty. Patient is started empirically on the sepsis pathway, with broad-spectrum antibiotics, aggressive IV fluids, and post intubation sedation package. * pCXR FINDINGS: SUPPORT DEVICES: Endotracheal tube is in place in good position above the liam. HEART / MEDIASTINUM: No significant abnormality. LUNGS / PLEURA: There is moderate bibasilar lung consolidation and slight right upper lobe consolidation as well. No edema or effusions. No pneumothorax. ADDITIONAL FINDINGS: No significant additional findings. IMPRESSION: 1. Endotracheal tube in good position. * CT head without contrast IMPRESSION: Encephalomalacia in the entire right cerebral hemisphere Volume loss in the left cerebral hemisphere I do not see an acute parenchymal lesion in the brain. * Abdominal Xray 1 view: FINDINGS: TUBES / LINES: The NG tube has been advanced and now terminates along the lateral margin of the gastric fundus. The side- port of the tube projects over the GE junction. BOWEL GAS PATTERN: No significant abnormality. FREE AIR / EXTRALUMINAL GAS: None seen. ADDITIONAL FINDINGS: Opacities are again noted throughout the right lung. The IVC filter is unchanged in position. IMPRESSION: Interval advancement of the NG tube as above. The side-port of the tube is likely located at the GE junction. The tube may be advanced another 3-4 cm if desired. Hospitalist Physical Gen: critcally ill, thin frail, bmi 20, intubated,sedated on Fentanyl HEENT: NCAT, EOMI, PERRL, OP Clear Neck: supple, no adenopathy, no thyromegaly, no JVD CVS/Heart: RRR, normal S1S2, pulses present bilaterally Chest/Lungs: CTA B, Symmetrical chest expansion, good air entry bilaterally GI/Abdomen: soft, NTND, good bowel sounds, no guarding or rebound /Bladder: no suprapubic tenderness, no CVA or paraspinal tenderness Extermity/Skin: no c/c/e, no obvious rash MSK: intubated Neuro: intubated Psych: intubated Subjective Date of service: 03/27/19 Principal diagnosis: resp fail sepsis Interval history: Pt seen and examined updated at the bedside remained intubated, off pressor Objective - Constitutional Vitals: Vital Signs - 12hr 03/27/19 03/27/19 03/27/19 02:00 02:15 02:30 Temperature Pulse Rate 100 H 96 H 97 H Pulse Rate [ Anterior Bilateral Throughout] Respiratory 19 22 18 Rate Respiratory Rate [Anterior Bilateral Throughout] Blood Pressure 99/43 97/45 88/45 O2 Sat by Pulse 100 99 100 Oximetry 03/27/19 03/27/19 03/27/19 02:45 03:00 03:15 Temperature Pulse Rate 94 H 99 H 97 H Pulse Rate [ Anterior Bilateral Throughout] Respiratory 16 19 19 Rate Respiratory Rate [Anterior Bilateral Throughout] Blood Pressure 79/43 106/48 107/42 O2 Sat by Pulse 100 100 Oximetry 03/27/19 03/27/19 03/27/19 03:30 03:45 04:00 Temperature 100.4 F H Pulse Rate 96 H 90 96 H Pulse Rate [ Anterior Bilateral Throughout] Respiratory 21 18 20 Rate Respiratory Rate [Anterior Bilateral Throughout] Blood Pressure 97/46 91/41 96/51 O2 Sat by Pulse 99 100 100 Oximetry 03/27/19 03/27/19 03/27/19 04:15 04:30 04:45 Temperature Pulse Rate 91 H 96 H 122 H Pulse Rate [ Anterior Bilateral Throughout] Respiratory 16 19 18 Rate Respiratory Rate [Anterior Bilateral Throughout] Blood Pressure 90/47 102/50 110/57 O2 Sat by Pulse 100 100 99 Oximetry 03/27/19 03/27/19 03/27/19 04:49 05:00 05:15 Temperature Pulse Rate 106 H 118 H 142 H Pulse Rate [ Anterior Bilateral Throughout] Respiratory 19 22 Rate Respiratory Rate [Anterior Bilateral Throughout] Blood Pressure 110/57 110/50 111/56 O2 Sat by Pulse 99 98 98 Oximetry 03/27/19 03/27/19 03/27/19 05:30 05:45 06:00 Temperature Pulse Rate 118 H 95 H 102 H Pulse Rate [ Anterior Bilateral Throughout] Respiratory 26 H 17 19 Rate Respiratory Rate [Anterior Bilateral Throughout] Blood Pressure 111/48 101/37 100/47 O2 Sat by Pulse 97 99 98 Oximetry 03/27/19 03/27/19 03/27/19 06:15 06:31 06:45 Temperature Pulse Rate 80 106 H 108 H Pulse Rate [ Anterior Bilateral Throughout] Respiratory 19 18 25 H Rate Respiratory Rate [Anterior Bilateral Throughout] Blood Pressure 98/45 89/36 89/36 O2 Sat by Pulse 100 98 98 Oximetry 03/27/19 03/27/19 03/27/19 07:00 07:15 07:30 Temperature Pulse Rate 116 H 114 H 79 Pulse Rate [ Anterior Bilateral Throughout] Respiratory 27 H 18 18 Rate Respiratory Rate [Anterior Bilateral Throughout] Blood Pressure 99/43 79/42 114/48 O2 Sat by Pulse 97 98 100 Oximetry 03/27/19 03/27/19 03/27/19 07:45 08:00 08:15 Temperature 101 F H Pulse Rate 101 H 143 H 136 H Pulse Rate [ Anterior Bilateral Throughout] Respiratory 19 23 21 Rate Respiratory Rate [Anterior Bilateral Throughout] Blood Pressure 113/53 127/68 113/53 O2 Sat by Pulse 100 97 Oximetry 03/27/19 03/27/19 03/27/19 08:16 08:30 08:45 Temperature Pulse Rate 148 H Pulse Rate [ Anterior Bilateral Throughout] Respiratory 19 20 Rate Respiratory Rate [Anterior Bilateral Throughout] Blood Pressure 125/48 106/52 94/58 O2 Sat by Pulse 97 98 98 Oximetry 03/27/19 03/27/19 03/27/19 09:00 09:15 09:30 Temperature Pulse Rate 134 H 141 H 116 H Pulse Rate [ Anterior Bilateral Throughout] Respiratory 16 19 19 Rate Respiratory Rate [Anterior Bilateral Throughout] Blood Pressure 117/45 103/54 104/46 O2 Sat by Pulse 98 99 98 Oximetry 03/27/19 03/27/19 03/27/19 09:32 09:45 09:59 Temperature Pulse Rate 126 H 133 H Pulse Rate [ 135 H Anterior Bilateral Throughout] Respiratory 20 Rate Respiratory 26 H Rate [Anterior Bilateral Throughout] Blood Pressure 99/46 107/48 O2 Sat by Pulse 99 Oximetry 03/27/19 03/27/19 03/27/19 10:00 10:01 10:15 Temperature Pulse Rate 89 134 H 82 Pulse Rate [ Anterior Bilateral Throughout] Respiratory 19 21 Rate Respiratory Rate [Anterior Bilateral Throughout] Blood Pressure 107/48 99/58 O2 Sat by Pulse 99 100 Oximetry 03/27/19 03/27/19 03/27/19 10:30 10:31 10:45 Temperature Pulse Rate 86 90 Pulse Rate [ Anterior Bilateral Throughout] Respiratory 20 26 H Rate Respiratory Rate [Anterior Bilateral Throughout] Blood Pressure 168/84 117/53 O2 Sat by Pulse 100 97 96 Oximetry 03/27/19 03/27/19 03/27/19 11:00 11:15 11:30 Temperature Pulse Rate 93 H 93 H 92 H Pulse Rate [ Anterior Bilateral Throughout] Respiratory 24 21 17 Rate Respiratory Rate [Anterior Bilateral Throughout] Blood Pressure 106/46 100/46 99/44 O2 Sat by Pulse 97 98 98 Oximetry 03/27/19 03/27/19 03/27/19 11:45 12:00 12:15 Temperature 98.1 F Pulse Rate 95 H 90 90 Pulse Rate [ Anterior Bilateral Throughout] Respiratory 19 18 22 Rate Respiratory Rate [Anterior Bilateral Throughout] Blood Pressure 108/45 105/49 105/49 O2 Sat by Pulse 98 98 100 Oximetry 03/27/19 03/27/19 03/27/19 12:18 12:31 12:45 Temperature Pulse Rate 89 88 89 Pulse Rate [ Anterior Bilateral Throughout] Respiratory 19 19 Rate Respiratory Rate [Anterior Bilateral Throughout] Blood Pressure 102/40 113/44 O2 Sat by Pulse 100 97 98 Oximetry 03/27/19 03/27/19 03/27/19 13:00 13:15 13:30 Temperature Pulse Rate 87 87 82 Pulse Rate [ Anterior Bilateral Throughout] Respiratory 26 H 23 21 Rate Respiratory Rate [Anterior Bilateral Throughout] Blood Pressure 103/43 92/47 106/48 O2 Sat by Pulse 98 97 Oximetry 03/27/19 13:45 Temperature Pulse Rate 81 Pulse Rate [ Anterior Bilateral Throughout] Respiratory 31 H Rate Respiratory Rate [Anterior Bilateral Throughout] Blood Pressure 94/52 O2 Sat by Pulse 96 Oximetry - Labs CBC & Chem 7: 03/27/19 09:04 03/27/19 09:04 Labs: Abnormal lab results 03/27/19 03/27/19 03/27/19 Range/Units 09:04 09:04 09:04 WBC 14.8 H (4.5-11.0) K/mm3 RBC 2.52 L (3.65-5.03) M/mm3 Hgb 8.0 L (10.1-14.3) gm/dl Hct 24.0 L (30.3-42.9) % RDW 17.0 H (13.2-15.2) % Plt Count 89 L (140-440) K/mm3 [place] % (Auto) 8.8 H (0.0-7.3) % [place] # 1.3 H (0.0-0.8) K/mm3 Seg Neutrophils % 70.7 H (40.0-70.0) % Seg Neutrophils # 10.5 H (1.8-7.7) K/mm3 Potassium 3.2 L (3.6-5.0) mmol/L BUN 22 H (7-17) mg/dL Calcium 7.7 L (8.4-10.2) mg/dL Vancomycin Trough 23.0 H (5.0-20.0) ug/mL
--- NOTE | 2019-03-27 13:54 | Progress Note ---
Assessment and Plan Acute Right common femoral DVT and right IJ vein thrombosis - place on argatroban drip, consult vascular Acute metabolic encephalopathy, - cont supportive care, CT head negative Acute hypoxic respiratory s/p ETT placement: consulted CCM, wean off vent as tolerated, scheduled nebs - s/p bronch today Sepsis due to aspiration pneumonia; treat with iv abx, follow cx Septic shock: off pressor, weaned off, BP now stable Paroxysmal Atrial fib, Now NSR - on amioderone, renally dosed digoxin - Started low dose metoprolol HA (acute kidney injury), atn and vasomotor nephrology, poa: IV fluids for now, Nephrology consulted - renal function improved Anemia, 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 Upon arrival to the emergency room, the patient is obtunded, breathing without difficulty, desaturating, without a gag reflex. Therefore, patient placed on nasal cannula at 15 L/m, and then intubated without difficulty. Patient started empirically on the sepsis pathway, with broad-spectrum antibiotics, aggressive IV fluids, and post intubation sedation package. She is difficult to wean off from vent, s/p bronch today, venous doppler showed right internal jugular vein thrombus associated with right internal jugular vein triple lumen catheter and right common femoral vein DVT. * pCXR FINDINGS: SUPPORT DEVICES: Endotracheal tube is in place in good position above the liam. HEART / MEDIASTINUM: No significant abnormality. LUNGS / PLEURA: There is moderate bibasilar lung consolidation and slight right upper lobe consolidation as well. No edema or effusions. No pneumothorax. ADDITIONAL FINDINGS: No significant additional findings. IMPRESSION: 1. Endotracheal tube in good position. * CT head without contrast IMPRESSION: Encephalomalacia in the entire right cerebral hemisphere Volume loss in the left cerebral hemisphere, n0 acute parenchymal lesion in the brain. Hospitalist Physical Gen: critcally ill, thin frail, intubated,sedated on Fentanyl HEENT: NCAT, EOMI, PERRL, OP Clear Neck: supple, no adenopathy, no thyromegaly, no JVD CVS/Heart: RRR, normal S1S2, pulses present bilaterally Chest/Lungs: CTA B, Symmetrical chest expansion, good air entry bilaterally GI/Abdomen: soft, NTND, good bowel sounds, no guarding or rebound /Bladder: no suprapubic tenderness, no CVA or paraspinal tenderness Extermity/Skin: no c/c/e, no obvious rash MSK: intubated Neuro: intubated Psych: intubated Subjective Date of service: 03/27/19 Principal diagnosis: resp fail sepsis Interval history: Pt seen and examined remained intubated, off pressor s/p bronch today, venous doppler positive for acute DVT Objective - Constitutional Vitals: Vital Signs - 12hr 03/27/19 03/27/19 03/27/19 02:00 02:15 02:30 Temperature Pulse Rate 100 H 96 H 97 H Pulse Rate [ Anterior Bilateral Throughout] Respiratory 19 22 18 Rate Respiratory Rate [Anterior Bilateral Throughout] Blood Pressure 99/43 97/45 88/45 O2 Sat by Pulse 100 99 100 Oximetry 03/27/19 03/27/19 03/27/19 02:45 03:00 03:15 Temperature Pulse Rate 94 H 99 H 97 H Pulse Rate [ Anterior Bilateral Throughout] Respiratory 16 19 19 Rate Respiratory Rate [Anterior Bilateral Throughout] Blood Pressure 79/43 106/48 107/42 O2 Sat by Pulse 100 100 Oximetry 03/27/19 03/27/19 03/27/19 03:30 03:45 04:00 Temperature 100.4 F H Pulse Rate 96 H 90 96 H Pulse Rate [ Anterior Bilateral Throughout] Respiratory 21 18 20 Rate Respiratory Rate [Anterior Bilateral Throughout] Blood Pressure 97/46 91/41 96/51 O2 Sat by Pulse 99 100 100 Oximetry 03/27/19 03/27/19 03/27/19 04:15 04:30 04:45 Temperature Pulse Rate 91 H 96 H 122 H Pulse Rate [ Anterior Bilateral Throughout] Respiratory 16 19 18 Rate Respiratory Rate [Anterior Bilateral Throughout] Blood Pressure 90/47 102/50 110/57 O2 Sat by Pulse 100 100 99 Oximetry 03/27/19 03/27/19 03/27/19 04:49 05:00 05:15 Temperature Pulse Rate 106 H 118 H 142 H Pulse Rate [ Anterior Bilateral Throughout] Respiratory 19 22 Rate Respiratory Rate [Anterior Bilateral Throughout] Blood Pressure 110/57 110/50 111/56 O2 Sat by Pulse 99 98 98 Oximetry 03/27/19 03/27/19 03/27/19 05:30 05:45 06:00 Temperature Pulse Rate 118 H 95 H 102 H Pulse Rate [ Anterior Bilateral Throughout] Respiratory 26 H 17 19 Rate Respiratory Rate [Anterior Bilateral Throughout] Blood Pressure 111/48 101/37 100/47 O2 Sat by Pulse 97 99 98 Oximetry 03/27/19 03/27/19 03/27/19 06:15 06:31 06:45 Temperature Pulse Rate 80 106 H 108 H Pulse Rate [ Anterior Bilateral Throughout] Respiratory 19 18 25 H Rate Respiratory Rate [Anterior Bilateral Throughout] Blood Pressure 98/45 89/36 89/36 O2 Sat by Pulse 100 98 98 Oximetry 03/27/19 03/27/19 03/27/19 07:00 07:15 07:30 Temperature Pulse Rate 116 H 114 H 79 Pulse Rate [ Anterior Bilateral Throughout] Respiratory 27 H 18 18 Rate Respiratory Rate [Anterior Bilateral Throughout] Blood Pressure 99/43 79/42 114/48 O2 Sat by Pulse 97 98 100 Oximetry 03/27/19 03/27/19 03/27/19 07:45 08:00 08:15 Temperature 101 F H Pulse Rate 101 H 143 H 136 H Pulse Rate [ Anterior Bilateral Throughout] Respiratory 19 23 21 Rate Respiratory Rate [Anterior Bilateral Throughout] Blood Pressure 113/53 127/68 113/53 O2 Sat by Pulse 100 97 Oximetry 03/27/19 03/27/19 03/27/19 08:16 08:30 08:45 Temperature Pulse Rate 148 H Pulse Rate [ Anterior Bilateral Throughout] Respiratory 19 20 Rate Respiratory Rate [Anterior Bilateral Throughout] Blood Pressure 125/48 106/52 94/58 O2 Sat by Pulse 97 98 98 Oximetry 03/27/19 03/27/19 03/27/19 09:00 09:15 09:30 Temperature Pulse Rate 134 H 141 H 116 H Pulse Rate [ Anterior Bilateral Throughout] Respiratory 16 19 19 Rate Respiratory Rate [Anterior Bilateral Throughout] Blood Pressure 117/45 103/54 104/46 O2 Sat by Pulse 98 99 98 Oximetry 03/27/19 03/27/19 03/27/19 09:32 09:45 09:59 Temperature Pulse Rate 126 H 133 H Pulse Rate [ 135 H Anterior Bilateral Throughout] Respiratory 20 Rate Respiratory 26 H Rate [Anterior Bilateral Throughout] Blood Pressure 99/46 107/48 O2 Sat by Pulse 99 Oximetry 03/27/19 03/27/19 03/27/19 10:00 10:01 10:15 Temperature Pulse Rate 89 134 H 82 Pulse Rate [ Anterior Bilateral Throughout] Respiratory 19 21 Rate Respiratory Rate [Anterior Bilateral Throughout] Blood Pressure 107/48 99/58 O2 Sat by Pulse 99 100 Oximetry 03/27/19 03/27/19 03/27/19 10:30 10:31 10:45 Temperature Pulse Rate 86 90 Pulse Rate [ Anterior Bilateral Throughout] Respiratory 20 26 H Rate Respiratory Rate [Anterior Bilateral Throughout] Blood Pressure 168/84 117/53 O2 Sat by Pulse 100 97 96 Oximetry 03/27/19 03/27/19 03/27/19 11:00 11:15 11:30 Temperature Pulse Rate 93 H 93 H 92 H Pulse Rate [ Anterior Bilateral Throughout] Respiratory 24 21 17 Rate Respiratory Rate [Anterior Bilateral Throughout] Blood Pressure 106/46 100/46 99/44 O2 Sat by Pulse 97 98 98 Oximetry 03/27/19 03/27/19 03/27/19 11:45 12:00 12:15 Temperature 98.1 F Pulse Rate 95 H 90 90 Pulse Rate [ Anterior Bilateral Throughout] Respiratory 19 18 22 Rate Respiratory Rate [Anterior Bilateral Throughout] Blood Pressure 108/45 105/49 105/49 O2 Sat by Pulse 98 98 100 Oximetry 03/27/19 03/27/19 03/27/19 12:18 12:31 12:45 Temperature Pulse Rate 89 88 89 Pulse Rate [ Anterior Bilateral Throughout] Respiratory 19 19 Rate Respiratory Rate [Anterior Bilateral Throughout] Blood Pressure 102/40 113/44 O2 Sat by Pulse 100 97 98 Oximetry 03/27/19 03/27/19 03/27/19 13:00 13:15 13:30 Temperature Pulse Rate 87 87 82 Pulse Rate [ Anterior Bilateral Throughout] Respiratory 26 H 23 21 Rate Respiratory Rate [Anterior Bilateral Throughout] Blood Pressure 103/43 92/47 106/48 O2 Sat by Pulse 98 97 Oximetry 03/27/19 13:45 Temperature Pulse Rate 81 Pulse Rate [ Anterior Bilateral Throughout] Respiratory 31 H Rate Respiratory Rate [Anterior Bilateral Throughout] Blood Pressure 94/52 O2 Sat by Pulse 96 Oximetry - Labs CBC & Chem 7: 03/27/19 14:04 07/29/19 09:04 Labs: Abnormal lab results 03/27/19 03/27/19 03/27/19 Range/Units 09:04 09:04 09:04 WBC 14.8 H (4.5-11.0) K/mm3 RBC 2.52 L (3.65-5.03) M/mm3 Hgb 8.0 L (10.1-14.3) gm/dl Hct 24.0 L (30.3-42.9) % RDW 17.0 H (13.2-15.2) % Plt Count 89 L (140-440) K/mm3 [place] % (Auto) 8.8 H (0.0-7.3) % [place] # 1.3 H (0.0-0.8) K/mm3 Seg Neutrophils % 70.7 H (40.0-70.0) % Seg Neutrophils # 10.5 H (1.8-7.7) K/mm3 Potassium 3.2 L (3.6-5.0) mmol/L BUN 22 H (7-17) mg/dL Calcium 7.7 L (8.4-10.2) mg/dL Vancomycin Trough 23.0 H (5.0-20.0) ug/mL
[2019-03-27] MEDS ORDERED: ARGATROBAN 250 MG in NACL 0.9% 250ML 247.5 ML IV SCH (14:00)
[2019-03-27 14:14] LABS: Hematocrit 25.3 % (30.3-42.9); Hemoglobin 8.3 gm/dl (10.1-14.3)
[2019-03-27 14:19] LABS: Albumin 1.3 g/dL (3.9-5); Bilirubin,Direct 0.3 mg/dL (0-0.2)
[2019-03-27 14:25] LABS: INR 1.9 (0.87-1.13)
[2019-03-27 14:26] LABS: Partial Thromboplastin Time 42.2 Sec. (24.2-36.6)
[2019-03-27] MEDS ORDERED: HEPARIN/ 0.45% NACL-25,000 UNIT/500 ML 25,000 UNIT/500 ML BAG IV SCH (16:00)
--- NOTE | 2019-03-27 16:01 | Progress Note ---
Assessment and Plan 73-year-old female with multiple medical problems with right internal jugular vein thrombus associated with right internal jugular vein triple lumen catheter. Recommend anticoagulation for 3 months. If being anticoagulated, no need to rem ove the triple lumen catheter. Triple-lumen catheter can be used. Given thrombocytopenia, may want to consider alternative anticoagulants to heparin. May ultimately wish to use Eliquis or Xarelto. Subjective Date of service: 03/27/19 Principal diagnosis: resp fail sepsis Interval history: Right internal jugular triple-lumen catheter placed. Right internal jugular thrombus noted. Patient initiated on anticoagulation. Patient is not able to verbalize response. Objective - Constitutional Vitals: Vital Signs - 12hr 03/27/19 03/27/19 03/27/19 04:00 04:15 04:30 Temperature 100.4 F H Pulse Rate 96 H 91 H 96 H Pulse Rate [ Anterior Bilateral Throughout] Respiratory 20 16 19 Rate Respiratory Rate [Anterior Bilateral Throughout] Blood Pressure 96/51 90/47 102/50 O2 Sat by Pulse 100 100 100 Oximetry 03/27/19 03/27/19 03/27/19 04:45 04:49 05:00 Temperature Pulse Rate 122 H 106 H 118 H Pulse Rate [ Anterior Bilateral Throughout] Respiratory 18 19 Rate Respiratory Rate [Anterior Bilateral Throughout] Blood Pressure 110/57 110/57 110/50 O2 Sat by Pulse 99 99 98 Oximetry 03/27/19 03/27/19 03/27/19 05:15 05:30 05:45 Temperature Pulse Rate 142 H 118 H 95 H Pulse Rate [ Anterior Bilateral Throughout] Respiratory 22 26 H 17 Rate Respiratory Rate [Anterior Bilateral Throughout] Blood Pressure 111/56 111/48 101/37 O2 Sat by Pulse 98 97 99 Oximetry 03/27/19 03/27/19 03/27/19 06:00 06:15 06:31 Temperature Pulse Rate 102 H 80 106 H Pulse Rate [ Anterior Bilateral Throughout] Respiratory 19 19 18 Rate Respiratory Rate [Anterior Bilateral Throughout] Blood Pressure 100/47 98/45 89/36 O2 Sat by Pulse 98 100 98 Oximetry 03/27/19 03/27/19 03/27/19 06:45 07:00 07:15 Temperature Pulse Rate 108 H 116 H 114 H Pulse Rate [ Anterior Bilateral Throughout] Respiratory 25 H 27 H 18 Rate Respiratory Rate [Anterior Bilateral Throughout] Blood Pressure 89/36 99/43 79/42 O2 Sat by Pulse 98 97 98 Oximetry 03/27/19 03/27/19 03/27/19 07:30 07:45 08:00 Temperature 101 F H Pulse Rate 79 101 H 143 H Pulse Rate [ Anterior Bilateral Throughout] Respiratory 18 19 23 Rate Respiratory Rate [Anterior Bilateral Throughout] Blood Pressure 114/48 113/53 127/68 O2 Sat by Pulse 100 100 97 Oximetry 03/27/19 03/27/19 03/27/19 08:15 08:16 08:30 Temperature Pulse Rate 136 H 148 H Pulse Rate [ Anterior Bilateral Throughout] Respiratory 21 19 Rate Respiratory Rate [Anterior Bilateral Throughout] Blood Pressure 113/53 125/48 106/52 O2 Sat by Pulse 97 98 Oximetry 03/27/19 03/27/19 03/27/19 08:45 09:00 09:15 Temperature Pulse Rate 134 H 141 H Pulse Rate [ Anterior Bilateral Throughout] Respiratory 20 16 19 Rate Respiratory Rate [Anterior Bilateral Throughout] Blood Pressure 94/58 117/45 103/54 O2 Sat by Pulse 98 98 99 Oximetry 03/27/19 03/27/19 03/27/19 09:30 09:32 09:45 Temperature Pulse Rate 116 H 126 H Pulse Rate [ 135 H Anterior Bilateral Throughout] Respiratory 19 20 Rate Respiratory 26 H Rate [Anterior Bilateral Throughout] Blood Pressure 104/46 99/46 O2 Sat by Pulse 98 99 Oximetry 03/27/19 03/27/19 03/27/19 09:59 10:00 10:01 Temperature Pulse Rate 133 H 89 134 H Pulse Rate [ Anterior Bilateral Throughout] Respiratory 19 Rate Respiratory Rate [Anterior Bilateral Throughout] Blood Pressure 107/48 107/48 O2 Sat by Pulse 99 Oximetry 03/27/19 03/27/19 03/27/19 10:15 10:30 10:31 Temperature Pulse Rate 82 86 Pulse Rate [ Anterior Bilateral Throughout] Respiratory 21 20 Rate Respiratory Rate [Anterior Bilateral Throughout] Blood Pressure 99/58 168/84 O2 Sat by Pulse 100 100 97 Oximetry 03/27/19 03/27/19 03/27/19 10:45 11:00 11:15 Temperature Pulse Rate 90 93 H 93 H Pulse Rate [ Anterior Bilateral Throughout] Respiratory 26 H 24 21 Rate Respiratory Rate [Anterior Bilateral Throughout] Blood Pressure 117/53 106/46 100/46 O2 Sat by Pulse 96 97 98 Oximetry 03/27/19 03/27/19 03/27/19 11:30 11:45 12:00 Temperature 98.1 F Pulse Rate 92 H 95 H 90 Pulse Rate [ Anterior Bilateral Throughout] Respiratory 17 19 18 Rate Respiratory Rate [Anterior Bilateral Throughout] Blood Pressure 99/44 108/45 105/49 O2 Sat by Pulse 98 98 98 Oximetry 03/27/19 03/27/19 03/27/19 12:15 12:18 12:31 Temperature Pulse Rate 90 89 88 Pulse Rate [ Anterior Bilateral Throughout] Respiratory 22 19 Rate Respiratory Rate [Anterior Bilateral Throughout] Blood Pressure 105/49 102/40 O2 Sat by Pulse 100 100 97 Oximetry 03/27/19 03/27/19 03/27/19 12:45 13:00 13:15 Temperature Pulse Rate 89 87 87 Pulse Rate [ Anterior Bilateral Throughout] Respiratory 19 26 H 23 Rate Respiratory Rate [Anterior Bilateral Throughout] Blood Pressure 113/44 103/43 92/47 O2 Sat by Pulse 98 98 97 Oximetry 03/27/19 03/27/19 03/27/19 13:30 13:45 13:56 Temperature Pulse Rate 82 81 Pulse Rate [ 86 Anterior Bilateral Throughout] Respiratory 21 31 H Rate Respiratory 26 H Rate [Anterior Bilateral Throughout] Blood Pressure 106/48 94/52 O2 Sat by Pulse 96 Oximetry General appearance: Present: other (intubated) - Neck Neck: other (head and neck are not swollen) - Respiratory Respiratory effort: other (intubated) - Psychiatric Psychiatric: other (intubated) - Labs CBC & Chem 7: 03/27/19 14:04 03/27/19 09:04 Labs: Abnormal lab results 03/27/19 03/27/19 03/27/19 Range/Units 09:04 09:04 09:04 WBC 14.8 H (4.5-11.0) K/mm3 RBC 2.52 L (3.65-5.03) M/mm3 Hgb 8.0 L (10.1-14.3) gm/dl Hct 24.0 L (30.3-42.9) % RDW 17.0 H (13.2-15.2) % Plt Count 89 L (140-440) K/mm3 Mobile % (Auto) 8.8 H (0.0-7.3) % Mobile # 1.3 H (0.0-0.8) K/mm3 Seg Neutrophils % 70.7 H (40.0-70.0) % Seg Neutrophils # 10.5 H (1.8-7.7) K/mm3 PT (12.2-14.9) Sec. INR (0.87-1.13) APTT (24.2-36.6) Sec. Potassium 3.2 L (3.6-5.0) mmol/L BUN 22 H (7-17) mg/dL Calcium 7.7 L (8.4-10.2) mg/dL Direct Bilirubin (0-0.2) mg/dL Total Protein (6.3-8.2) g/dL Albumin (3.9-5) g/dL Vancomycin Trough 23.0 H (5.0-20.0) ug/mL 03/27/19 03/27/19 03/27/19 Range/Units 13:31 14:04 14:04 WBC (4.5-11.0) K/mm3 RBC (3.65-5.03) M/mm3 Hgb 8.3 L (10.1-14.3) gm/dl Hct 25.3 L (30.3-42.9) % RDW (13.2-15.2) % Plt Count 91 L (140-440) K/mm3 Mobile % (Auto) (0.0-7.3) % Mobile # (0.0-0.8) K/mm3 Seg Neutrophils % (40.0-70.0) % Seg Neutrophils # (1.8-7.7) K/mm3 PT 21.4 H (12.2-14.9) Sec. INR 1.90 H (0.87-1.13) APTT 42.2 H (24.2-36.6) Sec. Potassium (3.6-5.0) mmol/L BUN (7-17) mg/dL Calcium (8.4-10.2) mg/dL Direct Bilirubin 0.3 H (0-0.2) mg/dL Total Protein 4.9 L (6.3-8.2) g/dL Albumin 1.3 L (3.9-5) g/dL Vancomycin Trough (5.0-20.0) ug/mL Medications & Allergies - Medications Allergies/Adverse Reactions: Allergies No Known Allergies Allergy (Unverified 03/19/19 13:11) Home Medications: Home Medications Medication Instructions Recorded Confirmed Last Taken Type Aspirin EC 81 mg PO DAILY 03/20/19 03/20/19 Unknown History Divalproex Sodium 375 mg PO Q8H PRN 03/20/19 03/20/19 Unknown History Metoprolol [Lopressor TAB] 50 mg PO BID 03/20/19 03/20/19 Unknown History Sennosides/Docusate Sodium [Senna 8.6 mg PO BID PRN 03/20/19 03/20/19 Unknown History Plus Tablet] levETIRAcetam [Keppra TAB] 500 mg PO BID 03/20/19 03/20/19 Unknown History Active Medications: Generic Name Dose Route Start Last Admin Trade Name Freq PRN Reason Stop Dose Admin Acetaminophen 650 mg 03/24/19 23:48 03/27/19 10:40 Tylenol FEEDTUBE 650 mg Q6H PRN Administration Fever >101 Albuterol 2.5 mg 03/19/19 23:58 Proventil IH Q3HRT PRN Shortness Of Breath Albuterol/Ipratropium 1 ampul 03/20/19 02:00 03/27/19 13:41 Duoneb *Not For Prn Use* IH 1 ampul Q6HRT YUSUF Administration Amiodarone HCl 200 mg 03/22/19 22:00 03/27/19 09:50 Cordarone PO 200 mg BID YUSUF Administration Lipase/Protease/Amylase 1 each 03/22/19 16:03 Pancretobi Sargent 10,500 Unit FEEDTUBE PRN PRN For Clogged Feeding Tube Aspirin 81 mg 03/21/19 10:00 03/27/19 09:50 Baby Aspirin PO 81 mg DAILY YUSUF Administration Budesonide 0.5 mg 03/19/19 23:45 03/27/19 09:21 Pulmicort IH 0.5 mg Q12HRT YUSUF Administration Dextrose 50 ml 03/19/19 23:58 03/21/19 16:29 D50w (25gm) Syringe IV 50 ml PRN PRN Administration Hypoglycemia Digoxin 0.125 mg 03/27/19 11:00 03/27/19 09:59 Lanoxin IV 0.125 mg Q24H YUSUF Administration Famotidine 20 mg 03/22/19 10:00 03/27/19 09:50 Pepcid PO 20 mg BID YUSUF Administration Fentanyl 50 mcg 03/19/19 12:45 03/19/19 13:26 Sublimaze IV 50 mcg Q10MIN PRN Administration ANALGESIA Hydromorphone HCl 0.5 mg 03/19/19 23:58 Dilaudid IV Q3H PRN Pain , Severe (7-10) Hydrophilic Ointment 1 applic 03/19/19 12:45 Vaseline Lip Therapy TP Q2HR PRN Dry Lips Fentanyl Citrate 2,000 mcg in 100 mls @ 2.835 mls/hr 03/19/19 14:00 03/21/19 11:33 Fentanyl Drip Premix IV 0 mcg/kg/hr TITR YUSUF 0 mls/hr Titration Protocol 1 MCG/KG/HR Furosemide 100 mg/ Sodium 100 mls @ 2.5 mls/hr 03/25/19 11:00 03/26/19 09:34 Chloride IV 2.5 mg/hr TITR YUSUF 2.5 mls/hr Administration 2.5 MG/HR Norepinephrine 4 mg in 250 mls @ 7.5 mls/hr 03/25/19 11:00 03/27/19 13:15 Levophed Drip 4 Mg/Ns 250 Ml IV 4 mcg/min TITR YUSUF 15 mls/hr Titration Protocol 2 MCG/MIN Meropenem 1,000 mg/ Sodium 100 mls @ 100 mls/hr 03/26/19 15:00 03/27/19 14:13 Chloride IV 100 mls/hr Q8HR YUSUF Administration Protocol Argatroban 250 mg/ Sodium 250 mls @ 1.863 mls/hr 03/27/19 14:00 03/27/19 13:52 Chloride IV 0.5 mcg/kg/min TITR YUSUF 1.863 mls/hr Administration Protocol 0.5 MCG/KG/MIN Heparin Sodium/Sodium Chloride 25,000 unit in 500 mls @ 18 mls/hr 03/27/19 16:00 Heparin/ 0.45% Nacl-25,000 Unit/500 Ml IV TITR YUSUF Protocol 900 UNITS/HR Insulin Human Lispro 0 unit 03/20/19 00:00 03/27/19 14:08 Humalog SUB-Q Not Given Q6HR YUSUF Protocol Metoclopramide HCl 5 mg 03/20/19 00:12 Reglan IV Q6H PRN Nausea And Vomiting Metoprolol Tartrate 2.5 mg 03/23/19 13:17 03/24/19 21:20 Lopressor IV 2.5 mg Q2HR PRN Administration HR >150 Multi-Ingred Cream/Lotion/Oil/Oint 1 applic 03/19/19 12:45 Artificial Tears Ophth Oint OU Q4HR PRN Dry Eye(s) Ondansetron HCl 4 mg 03/19/19 23:58 Zofran IV Q8H PRN Nausea And Vomiting Promethazine HCl 25 mg 03/19/19 23:58 Phenergan CA Q6H PRN N/V IF NPO AND NO IV ACCESS Simple Syrup 15 ml 03/22/19 16:03 03/23/19 07:21 Simple Syrup FEEDTUBE 15 ml PRN PRN Administration Hypoglycemia Simple Syrup 30 ml 03/22/19 16:03 Simple Syrup FEEDTUBE PRN PRN Hypoglycemia Sodium Bicarbonate 325 mg 03/22/19 16:03 Sodium Bicarbonate FEEDTUBE PRN PRN For Clogged Feeding Tube Sodium Chloride 10 ml 03/20/19 10:00 03/27/19 09:50 Sodium Chloride Flush Syringe 10 Ml IV 10 ml BID YUSUF Administration Sodium Chloride 10 ml 03/19/19 23:58 Sodium Chloride Flush Syringe 10 Ml IV PRN PRN LINE FLUSH
[2019-03-27] MEDS: LASIX 100 MG in NACL 0.9% 90 ML IV SCH (21:08)
[2019-03-28] MEDS: DUONEB *Not for PRN Use IH SCH ×4 (02:02→19:30)
[2019-03-28 02:25] LABS: Hematocrit 24.5 % (30.3-42.9); Mean Corpuscular HGB Conc 33 % (30-34); Mean Corpuscular Volume 100 fl (79-97); Red Blood Count 2.44 M/mm3 (3.65-5.03); Red Cell Distribution Width 18.5 % (13.2-15.2)
[2019-03-28 02:31] LABS: Platelet Count 86 K/mm3 (140-440)
[2019-03-28 03:21] LABS: Total Cells Counted 100
[2019-03-28 03:22] LABS: RBC Morphology Normal
[2019-03-28 05:35] LABS: BUN/Creatinine Ratio 31; Blood Urea Nitrogen 22 mg/dL (7-17); Calcium 7.8 mg/dL (8.4-10.2); Hemolysis Index 5
[2019-03-28] MEDS: MERREM 1,000 MG in NACL 0.9% 100 ML IV SCH ×3 (06:16→21:44)
[2019-03-28] MEDS: HumaLOG SUB-Q SCH ×4 (06:18→18:00)
--- NOTE | 2019-03-28 06:55 | Event Note ---
Date: 03/27/19 [id number]
--- NOTE | 2019-03-28 07:12 | Hem/Onc Progress Note ---
Assessment and Plan low plt - since admission DVT was on home hospice 1. Thrombocytopenia. This may be secondary to medications. The platelets were even low at admission. The differential includes infection versus a marrow issue. At this time, platelets are adequate, we will follow the trend. Because of clinical suspicion, HIT test has been ordered. Argatroban ordered. Heparin has been stopped. 2. Pneumonia. 3. Encephalopathy. 4. Respiratory failure, on vent. 5. Renal impairment. 6. Deep vein thrombosis. Her immobilization may have a role. Central line also may have a role. At this time, the patient is on Argatroban. Once HIT antibody is negative, we will look into changing to oral anticoagulation like Eliquis or Xarelto. Her thrombocytopenia may complicate, the patient had low platelet even at admission. IVC filter may prevent the leg DVT from progression to PE; however, for IJ DVT, we have limited options. The patient was on home hospice as per notes. Atrial fibrillation, she was on medications. History of anemia, we will do deficiency investigations. Leukocytosis, likely reactive. B12 level more than 2000, serum iron 32. - Patient Problems (1) Thrombocytopenia Current Visit: Yes Status: Acute Subjective Date of service: 03/28/19 Principal diagnosis: low plt - DVT Interval history: on vent Objective - Exam Narrative Exam: Pain - none - on vent General appearance intubated Performance status - complete help needed Eyes - no icterus ENT no thrush LNs cervical not palpable Neck - moves minimally Respiratory Normal Breath sounds - CTA anteriorly CVS S1 S2 + Extremities normal temperature - flaccid General GI Soft - distended Rectal deferred male - deferred Skin warm Musculoskeletal not able to evaluate Neurologically eyes open - on vent - Constitutional Vitals: Last Vital Signs Temp 102.1 F H 03/28/19 04:00 Pulse 117 H 03/28/19 06:15 Resp 15 03/28/19 06:15 BP 126/58 03/28/19 06:15 Pulse Ox 100 03/28/19 06:00 - Labs Lab Results: Laboratory Results - last 24 hr 03/27/19 03/27/19 03/27/19 09:04 09:04 09:04 WBC 14.8 H RBC 2.52 L Hgb 8.0 L Hct 24.0 L MCV 95 MCH 32 MCHC 33 RDW 17.0 H Plt Count 89 L Lymph % (Auto) 18.0 [place] % (Auto) 8.8 H Eos % (Auto) 1.9 Baso % (Auto) 0.6 Lymph # 2.7 [place] # 1.3 H Eos # 0.3 Baso # 0.1 Add Manual Diff Total Counted Seg Neutrophils % 70.7 H Seg Neuts % (Manual) Band Neutrophils % Lymphocytes % (Manual) Reactive Lymphs % (Man) Monocytes % (Manual) Eosinophils % (Manual) Basophils % (Manual) Metamyelocytes % Myelocytes % Promyelocytes % Blast Cells % Nucleated RBC % Seg Neutrophils # 10.5 H Seg Neutrophils # Man Band Neutrophils # Lymphocytes # (Manual) Abs React Lymphs (Man) Monocytes # (Manual) Eosinophils # (Manual) Basophils # (Manual) Metamyelocytes # Myelocytes # Promyelocytes # Blast Cells # WBC Morphology Hypersegmented Neuts Hyposegmented Neuts Hypogranular Neuts Smudge Cells Toxic Granulation Toxic Vacuolation Dohle Bodies Pelger-Huet Anomaly Judy Rods Platelet Estimate Clumped Platelets Plt Clumps, EDTA Large Platelets Giant Platelets Platelet Satelliting Plt Morphology Comment RBC Morphology Dimorphic RBCs Polychromasia Hypochromasia Poikilocytosis Anisocytosis Microcytosis Macrocytosis Spherocytes Pappenheimer Bodies Sickle Cells Target Cells Tear Drop Cells Ovalocytes Helmet Cells Y[place]rough-Muniz Bodies Many Rings [place] Cells Bite Cells Crenated Cell Elliptocytes Acanthocytes (Spur) Rouleaux Hemoglobin C Crystals Schistocytes Malaria parasites Adrian Bodies Hem Pathologist Commnt PT INR APTT Sodium 141 Potassium 3.2 L Chloride 106.3 Carbon Dioxide 28 Anion Gap 10 BUN 22 H Creatinine 0.8 Estimated GFR > 60 BUN/Creatinine Ratio 28 Glucose 99 POC Glucose Calcium 7.7 L Total Bilirubin Direct Bilirubin Indirect Bilirubin AST ALT Alkaline Phosphatase Total Protein Albumin Albumin/Globulin Ratio Vancomycin Trough 23.0 H 03/27/19 03/27/19 03/27/19 12:55 13:31 14:04 WBC RBC Hgb 8.3 L Hct 25.3 L MCV MCH MCHC RDW Plt Count 91 L Lymph % (Auto) [place] % (Auto) Eos % (Auto) Baso % (Auto) Lymph # [place] # Eos # Baso # Add Manual Diff Total Counted Seg Neutrophils % Seg Neuts % (Manual) Band Neutrophils % Lymphocytes % (Manual) Reactive Lymphs % (Man) Monocytes % (Manual) Eosinophils % (Manual) Basophils % (Manual) Metamyelocytes % Myelocytes % Promyelocytes % Blast Cells % Nucleated RBC % Seg Neutrophils # Seg Neutrophils # Man Band Neutrophils # Lymphocytes # (Manual) Abs React Lymphs (Man) Monocytes # (Manual) Eosinophils # (Manual) Basophils # (Manual) Metamyelocytes # Myelocytes # Promyelocytes # Blast Cells # WBC Morphology Hypersegmented Neuts Hyposegmented Neuts Hypogranular Neuts Smudge Cells Toxic Granulation Toxic Vacuolation Dohle Bodies Pelger-Huet Anomaly Judy Rods Platelet Estimate Clumped Platelets Plt Clumps, EDTA Large Platelets Giant Platelets Platelet Satelliting Plt Morphology Comment RBC Morphology Dimorphic RBCs Polychromasia Hypochromasia Poikilocytosis Anisocytosis Microcytosis Macrocytosis Spherocytes Pappenheimer Bodies Sickle Cells Target Cells Tear Drop Cells Ovalocytes Helmet Cells [place]rough-Muniz Bodies Many Rings [place] Cells Bite Cells Crenated Cell Elliptocytes Acanthocytes (Spur) Rouleaux Hemoglobin C Crystals Schistocytes Malaria parasites Adrian Bodies Hem Pathologist Commnt PT INR APTT Sodium Potassium Chloride Carbon Dioxide Anion Gap BUN Creatinine Estimated GFR BUN/Creatinine Ratio Glucose POC Glucose 101 Calcium Total Bilirubin 0.50 Direct Bilirubin 0.3 H Indirect Bilirubin 0.2 AST 26 ALT 11 Alkaline Phosphatase 114 Total Protein 4.9 L Albumin 1.3 L Albumin/Globulin Ratio 0.4 Vancomycin Trough 03/27/19 03/27/19 03/28/19 14:04 23:51 01:05 WBC 14.4 H RBC 2.44 L Hgb 8.0 L Hct 24.5 L MCV 100 H MCH 33 H MCHC 33 RDW 18.5 H Plt Count 86 L Lymph % (Auto) [place] % (Auto) Eos % (Auto) Baso % (Auto) Lymph # [place] # Eos # Baso # Add Manual Diff Complete Total Counted 100 Seg Neutrophils % Seg Neuts % (Manual) 84.0 H Band Neutrophils % 0 Lymphocytes % (Manual) 10.0 L Reactive Lymphs % (Man) 0 Monocytes % (Manual) 3.0 Eosinophils % (Manual) 2.0 Basophils % (Manual) 1.0 Metamyelocytes % 0 Myelocytes % 0 Promyelocytes % 0 Blast Cells % 0 Nucleated RBC % Not Reportable Seg Neutrophils # Seg Neutrophils # Man 12.1 H Band Neutrophils # 0.0 Lymphocytes # (Manual) 1.4 Abs React Lymphs (Man) 0.0 Monocytes # (Manual) 0.4 Eosinophils # (Manual) 0.3 Basophils # (Manual) 0.1 Metamyelocytes # 0.0 Myelocytes # 0.0 Promyelocytes # 0.0 Blast Cells # 0.0 WBC Morphology Not Reportable Hypersegmented Neuts Not Reportable Hyposegmented Neuts Not Reportable Hypogranular Neuts Not Reportable Smudge Cells Not Reportable Toxic Granulation Not Reportable Toxic Vacuolation Not Reportable Dohle Bodies Not Reportable Pelger-Huet Anomaly Not Reportable Judy Rods Not Reportable Platelet Estimate Not Reportable Clumped Platelets Not Reportable Plt Clumps, EDTA Not Reportable Large Platelets Not Reportable Giant Platelets Not Reportable Platelet Satelliting Not Reportable Plt Morphology Comment Not Reportable RBC Morphology Normal Dimorphic RBCs Not Reportable Polychromasia Not Reportable Hypochromasia Not Reportable Poikilocytosis Not Reportable Anisocytosis Not Reportable Microcytosis Not Reportable Macrocytosis Not Reportable Spherocytes Not Reportable Pappenheimer Bodies Not Reportable Sickle Cells Not Reportable Target Cells Not Reportable Tear Drop Cells Not Reportable Ovalocytes Not Reportable Helmet Cells Not Reportable [place]-Muniz Bodies Not Reportable Many Rings Not Reportable Loren Cells Not Reportable Bite Cells Not Reportable Crenated Cell Not Reportable Elliptocytes Not Reportable Acanthocytes (Spur) Not Reportable Rouleaux Not Reportable Hemoglobin C Crystals Not Reportable Schistocytes Not Reportable Malaria parasites Not Reportable Adrian Bodies Not Reportable Hem Pathologist Commnt No PT 21.4 H INR 1.90 H APTT 42.2 H Sodium Potassium Chloride Carbon Dioxide Anion Gap BUN Creatinine Estimated GFR BUN/Creatinine Ratio Glucose POC Glucose 130 H Calcium Total Bilirubin Direct Bilirubin Indirect Bilirubin AST ALT Alkaline Phosphatase Total Protein Albumin Albumin/Globulin Ratio Vancomycin Trough 03/28/19 03/28/19 03/28/19 02:51 04:45 05:21 WBC RBC Hgb Hct MCV MCH MCHC RDW Plt Count Lymph % (Auto) [place] % (Auto) Eos % (Auto) Baso % (Auto) Lymph # [place] # Eos # Baso # Add Manual Diff Total Counted Seg Neutrophils % Seg Neuts % (Manual) Band Neutrophils % Lymphocytes % (Manual) Reactive Lymphs % (Man) Monocytes % (Manual) Eosinophils % (Manual) Basophils % (Manual) Metamyelocytes % Myelocytes % Promyelocytes % Blast Cells % Nucleated RBC % Seg Neutrophils # Seg Neutrophils # Man Band Neutrophils # Lymphocytes # (Manual) Abs React Lymphs (Man) Monocytes # (Manual) Eosinophils # (Manual) Basophils # (Manual) Metamyelocytes # Myelocytes # Promyelocytes # Blast Cells # WBC Morphology Hypersegmented Neuts Hyposegmented Neuts Hypogranular Neuts Smudge Cells Toxic Granulation Toxic Vacuolation Dohle Bodies Pelger-Huet Anomaly Judy Rods Platelet Estimate Clumped Platelets Plt Clumps, EDTA Large Platelets Giant Platelets Platelet Satelliting Plt Morphology Comment RBC Morphology Dimorphic RBCs Polychromasia Hypochromasia Poikilocytosis Anisocytosis Microcytosis Macrocytosis Spherocytes Pappenheimer Bodies Sickle Cells Target Cells Tear Drop Cells Ovalocytes Helmet Cells Y[place]rough-Muniz Bodies Many Rings [place] Cells Bite Cells Crenated Cell Elliptocytes Acanthocytes (Spur) Rouleaux Hemoglobin C Crystals Schistocytes Malaria parasites Adrian Bodies Hem Pathologist Commnt PT INR APTT 75.0 H* Sodium 142 Potassium 3.6 Chloride 106.9 Carbon Dioxide 30 Anion Gap 9 BUN 22 H Creatinine 0.7 Estimated GFR > 60 BUN/Creatinine Ratio 31 Glucose 90 POC Glucose 94 Calcium 7.8 L Total Bilirubin Direct Bilirubin Indirect Bilirubin AST ALT Alkaline Phosphatase Total Protein Albumin Albumin/Globulin Ratio Vancomycin Trough Medications & Allergies - Medications Allergies/Adverse Reactions: Allergies No Known Allergies Allergy (Unverified 03/19/19 13:11) Home Medications: Home Medications Medication Instructions Recorded Confirmed Last Taken Type Divalproex Sodium 375 mg PO Q8H PRN 03/20/19 03/20/19 Unknown History Metoprolol [Lopressor TAB] 50 mg PO BID 03/20/19 03/20/19 Unknown History RX: Aspirin EC 81 mg PO DAILY 03/20/19 03/20/19 Unknown History Sennosides/Docusate Sodium [Senna 8.6 mg PO BID PRN 03/20/19 03/20/19 Unknown History Plus Tablet] levETIRAcetam [Keppra TAB] 500 mg PO BID 03/20/19 03/20/19 Unknown History Active Medications: Generic Name Dose Route Start Last Admin Trade Name Freq PRN Reason Stop Dose Admin Acetaminophen 650 mg 03/24/19 23:48 03/27/19 23:31 Tylenol FEEDTUBE 650 mg Q6H PRN Administration Fever >101 Albuterol 2.5 mg 03/19/19 23:58 Proventil IH Q3HRT PRN Shortness Of Breath Albuterol/Ipratropium 1 ampul 03/20/19 02:00 03/28/19 02:02 Duoneb *Not For Prn Use* IH 1 ampul Q6HRT YUSUF Administration Amiodarone HCl 200 mg 03/22/19 22:00 03/27/19 22:21 Cordarone PO 200 mg BID YUSUF Administration Lipase/Protease/Amylase 1 each 03/22/19 16:03 Pancreaztiti Sargent 10,500 Unit FEEDTUBE PRN PRN For Clogged Feeding Tube Aspirin 81 mg 03/21/19 10:00 03/27/19 09:50 Baby Aspirin PO 81 mg DAILY YUSUF Administration Budesonide 0.5 mg 03/19/19 23:45 03/27/19 19:48 Pulmicort IH 0.5 mg Q12HRT YUSUF Administration Dextrose 50 ml 03/19/19 23:58 03/21/19 16:29 D50w (25gm) Syringe IV 50 ml PRN PRN Administration Hypoglycemia Digoxin 0.125 mg 03/27/19 11:00 03/27/19 09:59 Lanoxin IV 0.125 mg Q24H YUSUF Administration Famotidine 20 mg 03/22/19 10:00 03/27/19 22:21 Pepcid PO 20 mg BID YUSUF Administration Fentanyl 50 mcg 03/19/19 12:45 03/19/19 13:26 Sublimaze IV 50 mcg Q10MIN PRN Administration ANALGESIA Hydromorphone HCl 0.5 mg 03/19/19 23:58 Dilaudid IV Q3H PRN Pain , Severe (7-10) Hydrophilic Ointment 1 applic 03/19/19 12:45 Vaseline Lip Therapy TP Q2HR PRN Dry Lips Fentanyl Citrate 2,000 mcg in 100 mls @ 2.835 mls/hr 03/19/19 14:00 03/21/19 11:33 Fentanyl Drip Premix IV 0 mcg/kg/hr TITR YUSUF 0 mls/hr Titration Protocol 1 MCG/KG/HR Furosemide 100 mg/ Sodium 100 mls @ 2.5 mls/hr 03/25/19 11:00 03/27/19 21:08 Chloride IV 2.5 mg/hr TITR YUSUF 2.5 mls/hr Administration 2.5 MG/HR Norepinephrine 4 mg in 250 mls @ 7.5 mls/hr 03/25/19 11:00 03/27/19 21:01 Levophed Drip 4 Mg/Ns 250 Ml IV 4 mcg/min TITR YUSUF 15 mls/hr Administration Protocol 2 MCG/MIN Meropenem 1,000 mg/ Sodium 100 mls @ 100 mls/hr 03/26/19 15:00 03/28/19 06:16 Chloride IV 100 mls/hr Q8HR YUSUF Administration Protocol Argatroban 250 mg/ Sodium 250 mls @ 1.863 mls/hr 03/27/19 14:00 03/27/19 13:52 Chloride IV 0.5 mcg/kg/min TITR YUSUF 1.863 mls/hr Administration Protocol 0.5 MCG/KG/MIN Heparin Sodium/Sodium Chloride 25,000 unit in 500 mls @ 18 mls/hr 03/27/19 16:00 Heparin/ 0.45% Nacl-25,000 Unit/500 Ml IV TITR YUSUF Protocol 900 UNITS/HR Insulin Human Lispro 0 unit 03/20/19 00:00 03/28/19 06:18 Humalog SUB-Q Not Given Q6HR [facility] Protocol Metoclopramide HCl 5 mg 03/20/19 00:12 Reglan IV Q6H PRN Nausea And Vomiting Metoprolol Tartrate 2.5 mg 03/23/19 13:17 03/24/19 21:20 Lopressor IV 2.5 mg Q2HR PRN Administration HR >150 Multi-Ingred Cream/Lotion/Oil/Oint 1 applic 03/19/19 12:45 Artificial Tears Ophth Oint OU Q4HR PRN Dry Eye(s) Ondansetron HCl 4 mg 03/19/19 23:58 Zofran IV Q8H PRN Nausea And Vomiting Promethazine HCl 25 mg 03/19/19 23:58 Phenergan CA Q6H PRN N/V IF NPO AND NO IV ACCESS Simple Syrup 15 ml 03/22/19 16:03 03/23/19 07:21 Simple Syrup FEEDTUBE 15 ml PRN PRN Administration Hypoglycemia Simple Syrup 30 ml 03/22/19 16:03 Simple Syrup FEEDTUBE PRN PRN Hypoglycemia Sodium Bicarbonate 325 mg 03/22/19 16:03 Sodium Bicarbonate FEEDTUBE PRN PRN For Clogged Feeding Tube Sodium Chloride 10 ml 03/20/19 10:00 03/27/19 22:22 Sodium Chloride Flush Syringe 10 Ml IV 10 ml BID YUSUF Administration Sodium Chloride 10 ml 03/19/19 23:58 Sodium Chloride Flush Syringe 10 Ml IV PRN PRN LINE FLUSH
--- NOTE | 2019-03-28 07:32 | Consultation ---
REFERRING PHYSICIAN: Dr. Epstein. REASON FOR CONSULTATION: Thrombocytopenia. HISTORY OF PRESENT ILLNESS: I saw the patient, a 73-year-old female in the ICU. The patient was brought by EMS for altered mentation, difficulty breathing. There is mention of low-grade temperature, low blood sugar, low oxygen. The patient was intubated. During this hospitalization, the patient has been seen by Cardiology team, ID team, Pulmonary team and Nephrology team. The patient had right common femoral DVT and right IJ thrombosis. The patient was placed on Argatroban because of suspicion of HIT. The patient is being treated for sepsis, AFib, anemia, pneumonia, electrolyte imbalance. I have been asked to evaluate the patient in view of thrombocytopenia, DVT and anemia. REVIEW OF SYSTEMS: Not reliable. The patient is on the vent. The patient's sister is present in the room. As per the notes, the patient was on home hospice. As per the sister, the patient has not been ambulating for a long time. REVIEW OF SYSTEMS: Not available because of the patient's mentation. PAST MEDICAL HISTORY: As above. PAST SURGICAL HISTORY: Not available. SOCIAL HISTORY: Lives with family, mention of home hospice. At this time intubated. FAMILY HISTORY: Hypertension. ALLERGIES: None. HOME MEDICATIONS: Include valproic acid, metoprolol, Keppra. PHYSICAL EXAMINATION: VITAL SIGNS: Temperature 102, pulse 128, respirations 19, BP 104/57. HEENT: Pallor present, no icterus. Intubated. NECK: No neck lymph nodes. HEART: S1, S2. LUNGS: Clear to auscultation anteriorly. ABDOMEN: Soft. NEUROLOGIC: Not able to evaluate. EXTREMITIES: Wasting seen. LABORATORY DATA: White cell 14, hemoglobin 8, MCV 95, platelet 89, INR 1.9, potassium 3.2, creatinine 0.8, calcium 7.7, bilirubin 0.5. RADIOLOGY: Abdomen CT done on 03/26/2019, compression fracture of L3. Upper extremity DVT, right IJ, lower extremity positive for DVT in right common. Trend of platelets shows that at admission on 03/19/2019, platelet count was low at 98. ASSESSMENT: 1. Thrombocytopenia. This may be secondary to medications. The platelets were even low at admission. The differential includes infection versus a marrow issue. At this time, platelets are adequate, we will follow the trend. Because of clinical suspicion, HIT test has been ordered. Argatroban is being used. Heparin has been stopped. 2. Pneumonia. 3. Encephalopathy. 4. Respiratory failure, on vent. 5. Renal impairment. 6. Deep vein thrombosis. Her immobilization may have a role. Central line also may have a role. At this time, the patient is on Argatroban. Once HIT antibody is negative, we will look into changing to oral anticoagulation like Eliquis or Xarelto. Her thrombocytopenia may complicate, the patient had low platelet even at admission. IVC filter may prevent the leg DVT from progression to PE; however, for IJ DVT, we have limited options. The patient was on home hospice as per notes. Atrial fibrillation, she was on medications. History of anemia, we will do deficiency investigations. Leukocytosis, likely reactive. B12 level more than 2000, serum iron 32. JOB# [id number] NM/NTS
[2019-03-28] MEDS: PULMICORT IH SCH ×2 (08:26→19:30)
--- NOTE | 2019-03-28 09:08 | Progress Note ---
Assessment and Plan Assessment and plan: --Acute hypoxic respiratory Failure intubated on vent: Pulm cr care following, wean off vent as tolerated, scheduled nebs s/p bronch --Acute Right common femoral DVT and right IJ vein thrombosis place on argatroban drip, consult vascular --Acute metabolic encephalopathy, cont supportive care, CT head negative --Sepsis due to aspiration pneumonia; treat with iv abx, follow cx --Septic shock: off pressor, weaned off, BP now stable --Paroxysmal Atrial fib, Now NSR on amioderone, renally dosed digoxin Started low dose metoprolol --HA (acute kidney injury), atn and vasomotor nephrology, poa: IV fluids for now, Nephrology consulted renal function improved --Anemia, due to CD vs other cause Monitor H&H and transfuse additional as needed --RUL Aspiration pneumonia:on Merropenem --Hypernatremia: improved with Iv fluid --Hypomagnesemia: replete and follow as needed --Elevated troponin level/ NSTEMI II; consulted Cardiology --DVT prophylaxis --full code CCT 32 minutes Brief History Patient is a 73 yo woman without a clear past medical history due to patient presentation of being Altered requiring intubation upon admission. Upon arrival to the emergency room, the patient is obtunded, breathing without difficulty, desaturating, without a gag reflex. Therefore, patient placed on nasal cannula at 15 L/m, and then intubated without difficulty. Patient started empirically on the sepsis pathway, with broad-spectrum antibiotics, aggressive IV fluids, and post intubation sedation package. She is difficult to wean off from vent, s/p bronch today, venous doppler showed right internal jugular vein thrombus associated with right internal jugular vein triple lumen catheter and right common femoral vein DVT. * pCXR FINDINGS: SUPPORT DEVICES: Endotracheal tube is in place in good position above the laim. HEART / MEDIASTINUM: No significant abnormality. LUNGS / PLEURA: There is moderate bibasilar lung consolidation and slight right upper lobe consolidation as well. No edema or effusions. No pneumothorax. ADDITIONAL FINDINGS: No significant additional findings. IMPRESSION: 1. Endotracheal tube in good position. * CT head without contrast IMPRESSION: Encephalomalacia in the entire right cerebral hemisphere Volume loss in the left cerebral hemisphere, n0 acute parenchymal lesion in the brain. History Interval history: Since seen and examined medical records reviewed Patient remains intubated on ventilatory support Alert and awake,Vital signs noted Hospitalist Physical - Constitutional Vitals: Temp Pulse Resp BP Pulse Ox 99.7 F H 120 H 14 121/51 97 03/28/19 08:00 03/28/19 08:50 03/28/19 08:50 03/28/19 08:45 03/28/19 08:45 General appearance: Present: mild distress, well-nourished, other (intubated) - EENT Eyes: Present: PERRL, EOM intact - Neck Neck: Present: supple, normal ROM - Respiratory Respiratory effort: normal Respiratory: bilateral: diminished, rhonchi, negative: rales, wheezing - Cardiovascular Rhythm: regular Heart Sounds: Present: S1 & S2 - Extremities Extremities: no ischemia, No edema - Abdominal General gastrointestinal: soft, non-tender, non-distended, normal bowel sounds - Integumentary Integumentary: Present: clear, warm - Psychiatric Psychiatric: other (intubated on vent) - Neurologic Neurologic: other (intubated on vent) Results - Labs CBC & Chem 7: 03/28/19 01:05 03/28/19 04:45 Labs: Laboratory Last Values WBC 14.4 K/mm3 (4.5-11.0) H 03/28/19 01:05 RBC 2.44 M/mm3 (3.65-5.03) L 03/28/19 01:05 Hgb 8.0 gm/dl (10.1-14.3) L 03/28/19 01:05 Hct 24.5 % (30.3-42.9) L 03/28/19 01:05 MCV 100 fl (79-97) H 03/28/19 01:05 MCH 33 pg (28-32) H 03/28/19 01:05 MCHC 33 % (30-34) 03/28/19 01:05 RDW 18.5 % (13.2-15.2) H 03/28/19 01:05 Plt Count 86 K/mm3 (140-440) L 03/28/19 01:05 Lymph % (Auto) 18.0 % (13.4-35.0) 03/27/19 09:04 Jennings % (Auto) 8.8 % (0.0-7.3) H 03/27/19 09:04 Eos % (Auto) 1.9 % (0.0-4.3) 03/27/19 09:04 Baso % (Auto) 0.6 % (0.0-1.8) 03/27/19 09:04 Lymph # 2.7 K/mm3 (1.2-5.4) 03/27/19 09:04 Jennings # 1.3 K/mm3 (0.0-0.8) H 03/27/19 09:04 Eos # 0.3 K/mm3 (0.0-0.4) 03/27/19 09:04 Baso # 0.1 K/mm3 (0.0-0.1) 03/27/19 09:04 Add Manual Diff Complete 03/28/19 01:05 Total Counted 100 03/28/19 01:05 Seg Neutrophils % 70.7 % (40.0-70.0) H 03/27/19 09:04 Seg Neuts % (Manual) 84.0 % (40.0-70.0) H 03/28/19 01:05 0 % 03/28/19 01:05 10.0 % (13.4-35.0) L 03/28/19 01:05 Reactive Lymphs % (Man) 0 % 03/28/19 01:05 3.0 % (0.0-7.3) 03/28/19 01:05 2.0 % (0.0-4.3) 03/28/19 01:05 1.0 % (0.0-1.8) 03/28/19 01:05 0 % 03/28/19 01:05 0 % 03/28/19 01:05 0 % 03/28/19 01:05 0 % 03/28/19 01:05 Nucleated RBC % Not Reportable 03/28/19 01:05 Seg Neutrophils # 10.5 K/mm3 (1.8-7.7) H 03/27/19 09:04 Seg Neutrophils # Man 12.1 K/mm3 (1.8-7.7) H 03/28/19 01:05 Band Neutrophils # 0.0 K/mm3 03/28/19 01:05 1.4 K/mm3 (1.2-5.4) 03/28/19 01:05 Abs React Lymphs (Man) 0.0 K/mm3 03/28/19 01:05 0.4 K/mm3 (0.0-0.8) 03/28/19 01:05 0.3 K/mm3 (0.0-0.4) 03/28/19 01:05 0.1 K/mm3 (0.0-0.1) 03/28/19 01:05 0.0 K/mm3 03/28/19 01:05 0.0 K/mm3 03/28/19 01:05 0.0 K/mm3 03/28/19 01:05 Blast Cells # 0.0 K/mm3 03/28/19 01:05 WBC Morphology Not Reportable 03/28/19 01:05 Hypersegmented Neuts Not Reportable 03/28/19 01:05 Hyposegmented Neuts Not Reportable 03/28/19 01:05 Hypogranular Neuts Not Reportable 03/28/19 01:05 Not Reportable 03/28/19 01:05 Not Reportable 03/28/19 01:05 Not Reportable 03/28/19 01:05 Not Reportable 03/28/19 01:05 Not Reportable 03/28/19 01:05 Not Reportable 03/28/19 01:05 Not Reportable 03/28/19 01:05 Not Reportable 03/28/19 01:05 Plt Clumps, EDTA Not Reportable 03/28/19 01:05 Not Reportable 03/28/19 01:05 Not Reportable 03/28/19 01:05 Not Reportable 03/28/19 01:05 Plt Morphology Comment Not Reportable 03/28/19 01:05 RBC Morphology Normal 03/28/19 01:05 Dimorphic RBCs Not Reportable 03/28/19 01:05 Not Reportable 03/28/19 01:05 Not Reportable 03/28/19 01:05 Not Reportable 03/28/19 01:05 Not Reportable 03/28/19 01:05 Not Reportable 03/28/19 01:05 Not Reportable 03/28/19 01:05 Not Reportable 03/28/19 01:05 Not Reportable 03/28/19 01:05 Not Reportable 03/28/19 01:05 Not Reportable 03/28/19 01:05 Not Reportable 03/28/19 01:05 Not Reportable 03/28/19 01:05 Not Reportable 03/28/19 01:05 Not Reportable 03/28/19 01:05 Not Reportable 03/28/19 01:05 Not Reportable 03/28/19 01:05 Not Reportable 03/28/19 01:05 Not Reportable 03/28/19 01:05 Not Reportable 03/28/19 01:05 Acanthocytes (Spur) Not Reportable 03/28/19 01:05 Rouleaux Not Reportable 03/28/19 01:05 Not Reportable 03/28/19 01:05 Not Reportable 03/28/19 01:05 Not Reportable 03/28/19 01:05 Not Reportable 03/28/19 01:05 Hem Pathologist Commnt No 03/28/19 01:05 PT 21.4 Sec. (12.2-14.9) H 03/27/19 14:04 INR 1.90 (0.87-1.13) H 03/27/19 14:04 APTT 75.0 Sec. (24.2-36.6) H* 03/28/19 02:51 POC ABG pH 7.411 (7.35-7.45) 03/25/19 05:40 POC ABG pCO2 33.3 (35-45) L 03/23/19 05:25 POC ABG pO2 83 (80-105) 03/25/19 05:40 POC ABG HCO3 17.7 (22-26 mml/L) 03/25/19 05:40 POC ABG Total CO2 19 (23-27mmol/L) 03/25/19 05:40 POC ABG O2 Sat 97 03/25/19 05:40 POC ABG Base Excess -7 ((-2) - (+3)mmol/L) 03/25/19 05:40 30 % 03/25/19 05:40 Sodium 142 mmol/L (137-145) 03/28/19 04:45 Potassium 3.6 mmol/L (3.6-5.0) 03/28/19 04:45 Chloride 106.9 mmol/L (98-107) 03/28/19 04:45 Carbon Dioxide 30 mmol/L (22-30) 03/28/19 04:45 9 mmol/L 03/28/19 04:45 BUN 22 mg/dL (7-17) H 03/28/19 04:45 0.7 mg/dL (0.7-1.2) 03/28/19 04:45 Estimated GFR > 60 ml/min 03/28/19 04:45 31 % 03/28/19 04:45 Glucose 90 mg/dL (65-100) 03/28/19 04:45 POC Glucose 94 (70-105) 03/28/19 05:21 4.2 % (4-6) 03/20/19 08:23 Lactic Acid 2.00 mmol/L (0.7-2.0) 03/23/19 04:50 Calcium 7.8 mg/dL (8.4-10.2) L 03/28/19 04:45 Phosphorus 2.00 mg/dL (2.5-4.5) L 03/20/19 17:50 Magnesium 1.70 mg/dL (1.7-2.3) 03/21/19 04:12 Iron 32 ug/dL (37-170) L 03/24/19 14:25 TIBC 75 mcg/dL (250-450) L 03/24/19 14:25 448.3 ng/mL (13.0-400.0) H 03/28/19 07:31 0.50 mg/dL (0.1-1.2) 03/27/19 13:31 0.3 mg/dL (0-0.2) H 03/27/19 13:31 0.2 mg/dL 03/27/19 13:31 AST 26 units/L (5-40) 03/27/19 13:31 ALT 11 units/L (7-56) 03/27/19 13:31 114 units/L (35-129) 03/27/19 13:31 1499 units/L (30-135) H 03/19/19 12:59 0.036 ng/mL (0.00-0.029) H 03/22/19 06:10 4.9 g/dL (6.3-8.2) L 03/27/19 13:31 1.3 g/dL (3.9-5) L 03/27/19 13:31 0.4 % 03/27/19 13:31 0.052 g/L (0.200-0.400) L 03/20/19 08:23 Triglycerides 72 mg/dL (2-149) 03/19/19 12:59 Cholesterol 61 mg/dL (50-199) 03/19/19 12:59 22 mg/dL (50-130) L 03/19/19 12:59 31 mg/dL (40-59) L 03/19/19 12:59 1.96 % 03/19/19 12:59 Vitamin B12 > 2000 pg/mL (211-911) H 03/25/19 10:11 18.61 ng/mL (7.3-26.0) 03/28/19 07:31 TSH 7.810 mlU/mL (0.270-4.200) H 03/22/19 06:10 Free T4 1.21 ng/dL (0.76-1.46) 03/22/19 06:10 PTH Intact 171.6 pg/mL (15-65) H 03/20/19 17:50 Yellow (Yellow) 03/19/19 12:47 Clear (Clear) 03/19/19 12:47 5.0 (5.0-7.0) 03/19/19 12:47 Ur Specific Kennedy 1.010 (1.003-1.030) 03/19/19 12:47 <15 mg/dl mg/dL (Negative) 03/19/19 12:47 50 mg/dL (Negative) 03/19/19 12:47 Neg mg/dL (Negative) 03/19/19 12:47 Lg (Negative) 03/19/19 12:47 Neg (Negative) 03/19/19 12:47 Neg (Negative) 03/19/19 12:47 < 2.0 mg/dL (<2.0) 03/19/19 12:47 Ur Leukocyte Esterase Neg (Negative) 03/19/19 12:47 2.0 /HPF (0.0-6.0) 03/19/19 12:47 2.0 /HPF (0.0-6.0) 03/19/19 12:47 U Epithel Cells (Auto) 1.0 /HPF (0-13.0) 03/19/19 12:47 1+ /HPF (Negative) 03/19/19 12:47 Hyaline Casts 3 /LPF 03/19/19 12:47 Few /HPF 03/19/19 12:47 None seen (None Seen) 03/20/19 16:40 53.7 mg/dL (0.1-20.0) H 03/20/19 16:40 3.8 mg/dL (0.1-34.0) 03/20/19 16:40 Microalb/Creat Ratio 70.7 ug/mg 03/20/19 16:40 116 mmol/L 03/20/19 16:40 36 mg/dL (5-11.8) H 03/20/19 16:40 Vancomycin Trough 23.0 ug/mL (5.0-20.0) H 03/27/19 09:04 Salicylates < 0.3 mg/dL (2.8-20.0) L 03/19/19 12:59 Acetaminophen < 5.0 ug/mL (10.0-30.0) L 03/19/19 12:59 Blood Type O POSITIVE 03/24/19 11:30 Antibody Screen Negative 03/24/19 11:30 Crossmatch See Detail 03/24/19 11:30 Active Medications - Current Medications Current Medications: Generic Name Dose Route Start Last Admin Trade Name Freq PRN Reason Stop Dose Admin Acetaminophen 650 mg 03/24/19 23:48 03/27/19 23:31 Tylenol FEEDTUBE 650 mg Q6H PRN Administration Fever >101 Albuterol 2.5 mg 03/19/19 23:58 Proventil IH Q3HRT PRN Shortness Of Breath Albuterol/Ipratropium 1 ampul 03/20/19 02:00 03/28/19 08:26 Duoneb *Not For Prn Use* IH 1 ampul Q6HRT YUSUF Administration Amiodarone HCl 200 mg 03/22/19 22:00 03/27/19 22:21 Cordarone PO 200 mg BID YUSUF Administration Lipase/Protease/Amylase 1 each 03/22/19 16:03 Pancretobi Sargent 10,500 Unit FEEDTUBE PRN PRN For Clogged Feeding Tube Aspirin 81 mg 03/21/19 10:00 03/27/19 09:50 Baby Aspirin PO 81 mg DAILY YUSUF Administration Budesonide 0.5 mg 03/19/19 23:45 03/28/19 08:26 Pulmicort IH 0.5 mg Q12HRT YUSUF Administration Dextrose 50 ml 03/19/19 23:58 03/21/19 16:29 D50w (25gm) Syringe IV 50 ml PRN PRN Administration Hypoglycemia Digoxin 0.125 mg 03/27/19 11:00 03/27/19 09:59 Lanoxin IV 0.125 mg Q24H YUSUF Administration Famotidine 20 mg 03/22/19 10:00 03/27/19 22:21 Pepcid PO 20 mg BID YUSUF Administration Fentanyl 50 mcg 03/19/19 12:45 03/19/19 13:26 Sublimaze IV 50 mcg Q10MIN PRN Administration ANALGESIA Hydromorphone HCl 0.5 mg 03/19/19 23:58 Dilaudid IV Q3H PRN Pain , Severe (7-10) Hydrophilic Ointment 1 applic 03/19/19 12:45 Vaseline Lip Therapy TP Q2HR PRN Dry Lips Fentanyl Citrate 2,000 mcg in 100 mls @ 2.835 mls/hr 03/19/19 14:00 03/21/19 11:33 Fentanyl Drip Premix IV 0 mcg/kg/hr TITR YUSUF 0 mls/hr Titration Protocol 1 MCG/KG/HR Furosemide 100 mg/ Sodium 100 mls @ 2.5 mls/hr 03/25/19 11:00 03/27/19 21:08 Chloride IV 2.5 mg/hr TITR YUSUF 2.5 mls/hr Administration 2.5 MG/HR Norepinephrine 4 mg in 250 mls @ 7.5 mls/hr 03/25/19 11:00 03/28/19 08:45 Levophed Drip 4 Mg/Ns 250 Ml IV 0 mcg/min TITR YUSUF 0 mls/hr Titration Protocol 2 MCG/MIN Meropenem 1,000 mg/ Sodium 100 mls @ 100 mls/hr 03/26/19 15:00 03/28/19 06:16 Chloride IV 100 mls/hr Q8HR YUSUF Administration Protocol Argatroban 250 mg/ Sodium 250 mls @ 1.863 mls/hr 03/27/19 14:00 03/28/19 07:00 Chloride IV 0.5 mcg/kg/min TITR YUSUF 1.863 mls/hr Titration Protocol 0.5 MCG/KG/MIN Insulin Human Lispro 0 unit 03/20/19 00:00 03/28/19 06:18 Humalog SUB-Q Not Given Q6HR [facility] Protocol Metoclopramide HCl 5 mg 03/20/19 00:12 Reglan IV Q6H PRN Nausea And Vomiting Metoprolol Tartrate 2.5 mg 03/23/19 13:17 03/24/19 21:20 Lopressor IV 2.5 mg Q2HR PRN Administration HR >150 Multi-Ingred Cream/Lotion/Oil/Oint 1 applic 03/19/19 12:45 Artificial Tears Ophth Oint OU Q4HR PRN Dry Eye(s) Ondansetron HCl 4 mg 03/19/19 23:58 Zofran IV Q8H PRN Nausea And Vomiting Promethazine HCl 25 mg 03/19/19 23:58 Phenergan DC Q6H PRN N/V IF NPO AND NO IV ACCESS Simple Syrup 15 ml 03/22/19 16:03 03/23/19 07:21 Simple Syrup FEEDTUBE 15 ml PRN PRN Administration Hypoglycemia Simple Syrup 30 ml 03/22/19 16:03 Simple Syrup FEEDTUBE PRN PRN Hypoglycemia Sodium Bicarbonate 325 mg 03/22/19 16:03 Sodium Bicarbonate FEEDTUBE PRN PRN For Clogged Feeding Tube Sodium Chloride 10 ml 03/20/19 10:00 03/27/19 22:22 Sodium Chloride Flush Syringe 10 Ml IV 10 ml BID YUSUF Administration Sodium Chloride 10 ml 03/19/19 23:58 Sodium Chloride Flush Syringe 10 Ml IV PRN PRN LINE FLUSH Nutrition/Malnutrition Assess - Dietary Evaluation Nutrition/Malnutrition Findings: Nutrition Notes Start: 03/20/19 15:29 Freq: Status: Active Protocol: Document 03/24/19 15:45 RM (Rec: 03/24/19 15:47 RM [id number]) Nutrition Notes Initial or Follow up Reassessment Other Pertinent Diagnosis Hx CVA, dementia, R buttock skin tear Current Diet Vital 1.2 at 45 ml/hr Labs/Tests Reviewed Pertinent Medications Reviewed Height 5 ft 5 in Weight 62.1 kg [place] Body Weight (kg) 56.81 BMI 22.8 Subjective/Other Information Observed Vital 1.2 infusing at goal rate. Per nurse is pt tolerating TF. Percent of energy/protein needs met: 95%/100% Burn Absent Trauma Absent #1 Nutrition Diagnosis Inadequate oral intake Diagnosis Progress(for reassessment Continues documentation) Is patient on ventilator? Yes Is Patient Ambulatory and/or Out of Bed No REE-([facility]-confined to bed) 1370.316 Calculation Used for Recommendations [facility] Additional Notes Protein Needs: 75-124g (1.2-2g /kg) Fluid Needs: 1 ml/kcal Nutrition Intervention Nutrition Support: Vital 1.2 at 45 ml/hr Water flush of 100 mls 4 q hrs Kcal 1,296 Protein (gm) 81 Fluid (mL) 876 Goal #1 TF tolerance Goal #2 Continue to meet at least 80% of calorie and protein needs via TF Anticipated Discharge Needs: Unable to determine at this time Follow-Up By: 03/31/19 Additional Comments Follow for TF tolerance
[2019-03-28] MEDS: PEPCID PO SCH ×2 (10:27→21:45)
[2019-03-28] MEDS: BABY ASPIRIN PO SCH (10:27)
[2019-03-28] MEDS: CORDARONE PO SCH ×2 (10:27→21:45)
[2019-03-28] MEDS: LANOXIN IV SCH (10:29)
[2019-03-28] MEDS: SODIUM CHLORIDE FLUSH SYRINGE 10 ML IV SCH ×2 (10:30→21:45)
--- NOTE | 2019-03-28 11:26 | Progress Note ---
Assessment and Plan Cultures/ID related labs: 03/27 tracheal aspirate - heavy neutrophils, usual resp maday Blood culture 03/19/2019 negative. Urine culture 03/19/2019 negative. 03/23/2019 tracheal aspirate culture: Usual resp maday Assessment: 73 y/o female with history of dementia, prior CVA, on home hospice admitted on 03/20/2019 brought by EMS due to altered mental status: 1) Sepsis with septic shock: source pneumonia but persistent fever. UA negative . Blood culture 03/19/2019 no growth. Urine culture 03/19/2019 negative. Would continue meropenem for now and monitor for improvement, likely for 8 day course. Resp culture sterilized. 2) Bilateral pneumonia: ? aspiration v/s CAP. Trach aspirate cultures usual resp maday, <25 WBC. 3) Acute encephalopathy: CT head without contrast shows encephalomalacia in the entire right cerebral hemisphere, volume loss in the left cerebral hemisphere, no acute parenchymal lesion in the brain. 4) Acute respiratory failure: remains intubated, on the vent. Responsive to commands today. 5) HA: improved. 6) Persistent fevers - Dopplers showing DVT of RIJ at catheter site as well as R common femoral, and a superficial thrombus in R greater saphenous. Likely causing fevers. ICU to start argatroban, consulted heme. Discussed with Dr. Gooden Will continue to follow along with you. Recommendations: continue IV Meropenem 1 gm q8 hrs Guarded prognosis, was on home hospice prior to admission MD [facility] C: [phone] O: [phone] F: [phone] Subjective Date of service: 03/28/19 Principal diagnosis: low plt - DVT Interval history: Remains intubated. Weakly responsive to commands. Remains febrile. White count elevated. Objective - Exam Narrative Exam: Constitutional: awake, no distress, weakly following commands Head, Ears, Nose: Normocephalic, atraumatic. External ears, nose normal Eyes: Conjunctivae/corneas clear. No icterus. No ptosis. Neck: Supple, no meningeal signs Oral: Intubated Cardiovascular: S1, S2 normal. Normal rhythm Respiratory: Good air entry, clear to auscultation bilaterally GI: Soft, non-tender; bowel sounds normal. No peritoneal signs Musculoskeletal: No pedal edema, Skin: No rash or abscess Hem/Lymphatic: No palpable cervical or supraclavicular nodes. No lymphangitis Psych: no agitation Neurological: weak, 3/5 strength extremities. Restrained - Constitutional Vitals: Vital Signs Temp Pulse Resp BP Pulse Ox 99.7 F H 127 H 14 122/61 97 03/28/19 08:00 03/28/19 10:29 03/28/19 08:50 03/28/19 10:29 03/28/19 08:45 Temperature -Last 24 Hours Temperature 99.7 F Temperature 102.1 F Temperature 102.1 F Temperature 102.7 F Temperature 100.8 F Temperature 98.4 F Temperature 98.1 F - Labs CBC & Chem 7: 03/28/19 01:05 03/28/19 04:45 Labs: Abnormal lab results 03/27/19 03/27/19 03/27/19 Range/Units 13:31 14:04 14:04 WBC (4.5-11.0) K/mm3 RBC (3.65-5.03) M/mm3 Hgb 8.3 L (10.1-14.3) gm/dl Hct 25.3 L (30.3-42.9) % MCV (79-97) fl MCH (28-32) pg RDW (13.2-15.2) % Plt Count 91 L (140-440) K/mm3 Seg Neuts % (Manual) (40.0-70.0) % Lymphocytes % (Manual) (13.4-35.0) % Seg Neutrophils # Man (1.8-7.7) K/mm3 PT 21.4 H (12.2-14.9) Sec. INR 1.90 H (0.87-1.13) APTT 42.2 H (24.2-36.6) Sec. BUN (7-17) mg/dL POC Glucose (70-105) Calcium (8.4-10.2) mg/dL Ferritin (13.0-400.0) ng/mL Direct Bilirubin 0.3 H (0-0.2) mg/dL Total Protein 4.9 L (6.3-8.2) g/dL Albumin 1.3 L (3.9-5) g/dL 03/27/19 03/28/19 03/28/19 Range/Units 23:51 01:05 02:51 WBC 14.4 H (4.5-11.0) K/mm3 RBC 2.44 L (3.65-5.03) M/mm3 Hgb 8.0 L (10.1-14.3) gm/dl Hct 24.5 L (30.3-42.9) % MCV 100 H (79-97) fl MCH 33 H (28-32) pg RDW 18.5 H (13.2-15.2) % Plt Count 86 L (140-440) K/mm3 Seg Neuts % (Manual) 84.0 H (40.0-70.0) % Lymphocytes % (Manual) 10.0 L (13.4-35.0) % Seg Neutrophils # Man 12.1 H (1.8-7.7) K/mm3 PT (12.2-14.9) Sec. INR (0.87-1.13) APTT 75.0 H* (24.2-36.6) Sec. BUN (7-17) mg/dL POC Glucose 130 H (70-105) Calcium (8.4-10.2) mg/dL Ferritin (13.0-400.0) ng/mL Direct Bilirubin (0-0.2) mg/dL Total Protein (6.3-8.2) g/dL Albumin (3.9-5) g/dL 03/28/19 03/28/19 Range/Units 04:45 07:31 WBC (4.5-11.0) K/mm3 RBC (3.65-5.03) M/mm3 Hgb (10.1-14.3) gm/dl Hct (30.3-42.9) % MCV (79-97) fl MCH (28-32) pg RDW (13.2-15.2) % Plt Count (140-440) K/mm3 Seg Neuts % (Manual) (40.0-70.0) % Lymphocytes % (Manual) (13.4-35.0) % Seg Neutrophils # Man (1.8-7.7) K/mm3 PT (12.2-14.9) Sec. INR (0.87-1.13) APTT (24.2-36.6) Sec. BUN 22 H (7-17) mg/dL POC Glucose (70-105) Calcium 7.8 L (8.4-10.2) mg/dL Ferritin 448.3 H (13.0-400.0) ng/mL Direct Bilirubin (0-0.2) mg/dL Total Protein (6.3-8.2) g/dL Albumin (3.9-5) g/dL
--- NOTE | 2019-03-28 12:09 | Progress Note ---
Assessment and Plan 73 y/o female found unresponsive now intubated and septic, etiology thought secondary to pneumonia with anemia and thrombocytopenia, and persistent fevers found to have multiple DVT's. 1. Continue argatroban therapy until otherwise told differently by christopher. Agree with HIT work up as we do not know her exposure on the outside. 2. Will order bilateral upper and lower ext dopplers given persistent fever 3. Continue vent support, has failed PSV today 4. Cards has patient on lasix but this volume appears to be third spacing. Suggest stopping lasix drip. Could do PRN lasix therapy but would need albumin to help with volume removal. 5. Patient severely deconditioned. Now that more awake, needs PT consult 6. Will discuss with daughter tomorrow but most likely patient will need trach and peg placement for weaning. CCT 31 minutes. Subjective Date of service: 03/28/19 Principal diagnosis: low plt - DVT Interval history: Doppler's positive for DVT. Given already low platelets with no exact causes, started on Argatroban for anticoagulation. Plts at 86 this am. Consulted Christopher as well who have seen the patient. Failed PSV trial this am. Objective Vital Signs - 12hr 03/28/19 03/28/19 03/28/19 00:15 00:30 00:45 Temperature Pulse Rate 128 H 128 H 126 H Pulse Rate [ Anterior Bilateral Throughout] Respiratory 21 19 21 Rate Respiratory Rate [Anterior Bilateral Throughout] Blood Pressure 101/53 100/53 94/48 O2 Sat by Pulse 99 99 Oximetry 03/28/19 03/28/19 03/28/19 00:53 01:00 01:15 Temperature Pulse Rate 126 H 125 H 124 H Pulse Rate [ Anterior Bilateral Throughout] Respiratory 21 22 Rate Respiratory Rate [Anterior Bilateral Throughout] Blood Pressure 94/48 82/55 108/51 O2 Sat by Pulse 99 99 Oximetry 03/28/19 03/28/19 03/28/19 01:34 01:45 02:00 Temperature Pulse Rate 124 H 123 H 124 H Pulse Rate [ Anterior Bilateral Throughout] Respiratory 17 18 15 Rate Respiratory Rate [Anterior Bilateral Throughout] Blood Pressure 111/47 111/48 O2 Sat by Pulse 100 99 100 Oximetry 03/28/19 03/28/19 03/28/19 02:10 02:15 02:30 Temperature Pulse Rate 123 H 124 H Pulse Rate [ 122 H Anterior Bilateral Throughout] Respiratory 17 19 Rate Respiratory 17 Rate [Anterior Bilateral Throughout] Blood Pressure 115/50 111/55 O2 Sat by Pulse 99 99 Oximetry 03/28/19 03/28/19 03/28/19 02:39 02:45 03:00 Temperature 102.1 F H Pulse Rate 117 H 123 H Pulse Rate [ Anterior Bilateral Throughout] Respiratory 18 16 Rate Respiratory Rate [Anterior Bilateral Throughout] Blood Pressure 102/46 115/50 O2 Sat by Pulse 100 98 Oximetry 03/28/19 03/28/19 03/28/19 03:15 03:30 03:46 Temperature Pulse Rate 120 H 121 H 129 H Pulse Rate [ Anterior Bilateral Throughout] Respiratory 16 15 16 Rate Respiratory Rate [Anterior Bilateral Throughout] Blood Pressure 98/44 102/45 113/48 O2 Sat by Pulse 100 97 Oximetry 03/28/19 03/28/19 03/28/19 04:00 04:15 04:30 Temperature 102.1 F H Pulse Rate 119 H 119 H 119 H Pulse Rate [ Anterior Bilateral Throughout] Respiratory 17 17 15 Rate Respiratory Rate [Anterior Bilateral Throughout] Blood Pressure 115/47 101/50 113/52 O2 Sat by Pulse 99 99 Oximetry 03/28/19 03/28/19 03/28/19 04:45 05:00 05:15 Temperature Pulse Rate 120 H 120 H 121 H Pulse Rate [ Anterior Bilateral Throughout] Respiratory 19 23 20 Rate Respiratory Rate [Anterior Bilateral Throughout] Blood Pressure 110/51 118/59 111/56 O2 Sat by Pulse 99 99 Oximetry 03/28/19 03/28/19 03/28/19 05:25 05:30 05:45 Temperature Pulse Rate 55 L 119 H 118 H Pulse Rate [ Anterior Bilateral Throughout] Respiratory 16 17 Rate Respiratory Rate [Anterior Bilateral Throughout] Blood Pressure 145/71 126/59 118/53 O2 Sat by Pulse 98 100 Oximetry 03/28/19 03/28/19 03/28/19 06:00 06:15 06:30 Temperature Pulse Rate 119 H 117 H 117 H Pulse Rate [ Anterior Bilateral Throughout] Respiratory 14 15 14 Rate Respiratory Rate [Anterior Bilateral Throughout] Blood Pressure 127/57 126/58 129/57 O2 Sat by Pulse 100 Oximetry 03/28/19 03/28/19 03/28/19 06:45 07:00 07:15 Temperature Pulse Rate 114 H 117 H 120 H Pulse Rate [ Anterior Bilateral Throughout] Respiratory 13 16 13 Rate Respiratory Rate [Anterior Bilateral Throughout] Blood Pressure 130/58 131/58 119/50 O2 Sat by Pulse 100 100 Oximetry 03/28/19 03/28/19 03/28/19 07:30 07:45 08:00 Temperature 99.7 F H Pulse Rate 118 H 118 H 118 H Pulse Rate [ Anterior Bilateral Throughout] Respiratory 15 16 14 Rate Respiratory Rate [Anterior Bilateral Throughout] Blood Pressure 95/48 118/57 116/54 O2 Sat by Pulse 100 Oximetry 03/28/19 03/28/19 03/28/19 08:12 08:15 08:30 Temperature Pulse Rate 117 H 122 H 121 H Pulse Rate [ Anterior Bilateral Throughout] Respiratory 15 21 Rate Respiratory Rate [Anterior Bilateral Throughout] Blood Pressure 117/91 117/91 119/60 O2 Sat by Pulse 100 100 99 Oximetry 03/28/19 03/28/19 03/28/19 08:45 08:50 09:00 Temperature Pulse Rate 120 H 122 H Pulse Rate [ 120 H Anterior Bilateral Throughout] Respiratory 17 16 Rate Respiratory 14 Rate [Anterior Bilateral Throughout] Blood Pressure 121/51 105/45 O2 Sat by Pulse 97 98 Oximetry 03/28/19 03/28/19 03/28/19 09:15 09:30 09:45 Temperature Pulse Rate 124 H 125 H 126 H Pulse Rate [ Anterior Bilateral Throughout] Respiratory 14 14 16 Rate Respiratory Rate [Anterior Bilateral Throughout] Blood Pressure 104/49 102/52 95/53 O2 Sat by Pulse 99 99 Oximetry 03/28/19 03/28/19 03/28/19 10:00 10:15 10:29 Temperature Pulse Rate 124 H 127 H 127 H Pulse Rate [ Anterior Bilateral Throughout] Respiratory 16 18 Rate Respiratory Rate [Anterior Bilateral Throughout] Blood Pressure 116/55 122/61 122/61 O2 Sat by Pulse 99 99 Oximetry 03/28/19 03/28/19 03/28/19 10:30 10:45 11:00 Temperature Pulse Rate 126 H 129 H 126 H Pulse Rate [ Anterior Bilateral Throughout] Respiratory 17 18 14 Rate Respiratory Rate [Anterior Bilateral Throughout] Blood Pressure 108/56 99/63 95/56 O2 Sat by Pulse 99 99 99 Oximetry 03/28/19 03/28/19 03/28/19 11:16 11:23 11:30 Temperature Pulse Rate 124 H 127 H 124 H Pulse Rate [ Anterior Bilateral Throughout] Respiratory 15 18 Rate Respiratory Rate [Anterior Bilateral Throughout] Blood Pressure 109/55 114/52 127/55 O2 Sat by Pulse 98 99 97 Oximetry 03/28/19 11:45 Temperature Pulse Rate 126 H Pulse Rate [ Anterior Bilateral Throughout] Respiratory 17 Rate Respiratory Rate [Anterior Bilateral Throughout] Blood Pressure 127/56 O2 Sat by Pulse 98 Oximetry Constitutional: lethargic, other (intubated on vent responds to name. follows commands) Eyes: non-icteric ENT: other (intubated ) Neck: supple Effort: mildly labored, other (poor efforts ) Ascultation: Bilateral: diminished breath sounds (grossly clear ), rales (coarse bilat ) Percussion: Bilateral: not dull, dull Cardiovascular: other (tachy AF ) Gastrointestinal: hypoactive bowel sounds Integumentary: normal Extremities: anasarca Neurologic: unable to assess CBC and BMP: 03/28/19 01:05 03/28/19 04:45 ABG, PT/INR, D-dimer: ABG POC ABG pH 7.411 (7.35-7.45) 03/25/19 05:40 POC ABG pO2 83 (80-105) 03/25/19 05:40 POC ABG HCO3 17.7 (22-26 mml/L) 03/25/19 05:40 POC ABG Total CO2 19 (23-27mmol/L) 03/25/19 05:40 POC ABG O2 Sat 97 03/25/19 05:40 PT/INR, D-dimer PT 21.4 Sec. (12.2-14.9) H 03/27/19 14:04 INR 1.90 (0.87-1.13) H 03/27/19 14:04 Abnormal lab findings: Abnormal Labs 03/19/19 03/19/19 03/19/19 12:59 12:59 12:59 WBC RBC 3.44 L Hgb Hct MCV 101 H MCH 34 H MCHC RDW Plt Count 98 L Lymph % (Auto) [place] % (Auto) Lymph # [place] # Seg Neutrophils % Seg Neuts % (Manual) 11.0 L Lymphocytes % (Manual) Monocytes % (Manual) 10.0 H Eosinophils % (Manual) Nucleated RBC % 1.0 H Seg Neutrophils # Seg Neutrophils # Man 0.6 L Lymphocytes # (Manual) Monocytes # (Manual) Eosinophils # (Manual) PT INR APTT POC ABG pH POC ABG pCO2 POC ABG pO2 Sodium 149 H Potassium Chloride 109.4 H Carbon Dioxide BUN 51 H Creatinine 3.2 H Glucose 58 L POC Glucose Lactic Acid 7.60 H* Calcium 7.8 L Phosphorus Magnesium 1.60 L Iron TIBC Ferritin Direct Bilirubin AST 75 H Total Creatine Kinase 1499 H Troponin T 0.109 H* Total Protein 5.2 L Albumin 1.7 L Prealbumin LDL Cholesterol Direct 22 L HDL Cholesterol 31 L Vitamin B12 TSH PTH Intact Urine Creatinine Urine Total Protein Vancomycin Trough Salicylates Acetaminophen Crossmatch 03/19/19 03/19/19 03/19/19 12:59 12:59 14:48 WBC RBC Hgb Hct MCV MCH MCHC RDW Plt Count Lymph % (Auto) [place] % (Auto) Lymph # [place] # Seg Neutrophils % Seg Neuts % (Manual) Lymphocytes % (Manual) Monocytes % (Manual) Eosinophils % (Manual) Nucleated RBC % Seg Neutrophils # Seg Neutrophils # Man Lymphocytes # (Manual) Monocytes # (Manual) Eosinophils # (Manual) PT INR APTT POC ABG pH POC ABG pCO2 POC ABG pO2 Sodium Potassium Chloride Carbon Dioxide BUN Creatinine Glucose POC Glucose 44 L Lactic Acid Calcium Phosphorus Magnesium Iron TIBC Ferritin Direct Bilirubin AST Total Creatine Kinase Troponin T Total Protein Albumin Prealbumin LDL Cholesterol Direct HDL Cholesterol Vitamin B12 TSH PTH Intact Urine Creatinine Urine Total Protein Vancomycin Trough Salicylates < 0.3 L Acetaminophen < 5.0 L Crossmatch 03/19/19 03/19/19 03/19/19 15:33 15:52 16:26 WBC RBC Hgb Hct MCV MCH MCHC RDW Plt Count Lymph % (Auto) [place] % (Auto) Lymph # [place] # Seg Neutrophils % Seg Neuts % (Manual) Lymphocytes % (Manual) Monocytes % (Manual) Eosinophils % (Manual) Nucleated RBC % Seg Neutrophils # Seg Neutrophils # Man Lymphocytes # (Manual) Monocytes # (Manual) Eosinophils # (Manual) PT INR APTT POC ABG pH POC ABG pCO2 POC ABG pO2 Sodium Potassium Chloride Carbon Dioxide BUN Creatinine Glucose POC Glucose 228 H 231 H Lactic Acid Calcium Phosphorus Magnesium Iron TIBC Ferritin Direct Bilirubin AST Total Creatine Kinase Troponin T Total Protein Albumin Prealbumin LDL Cholesterol Direct HDL Cholesterol Vitamin B12 TSH PTH Intact Urine Creatinine 31.8 H Urine Total Protein Vancomycin Trough Salicylates Acetaminophen Crossmatch 03/19/19 03/19/19 03/19/19 16:38 17:14 18:43 WBC RBC Hgb Hct MCV MCH MCHC RDW Plt Count Lymph % (Auto) [place] % (Auto) Lymph # [place] # Seg Neutrophils % Seg Neuts % (Manual) Lymphocytes % (Manual) Monocytes % (Manual) Eosinophils % (Manual) Nucleated RBC % Seg Neutrophils # Seg Neutrophils # Man Lymphocytes # (Manual) Monocytes # (Manual) Eosinophils # (Manual) PT INR APTT POC ABG pH 7.196 L POC ABG pCO2 30.8 L POC ABG pO2 Sodium Potassium Chloride Carbon Dioxide BUN Creatinine Glucose POC Glucose 235 H Lactic Acid 8.10 H* Calcium Phosphorus Magnesium Iron TIBC Ferritin Direct Bilirubin AST Total Creatine Kinase Troponin T Total Protein Albumin Prealbumin LDL Cholesterol Direct HDL Cholesterol Vitamin B12 TSH PTH Intact Urine Creatinine Urine Total Protein Vancomycin Trough Salicylates Acetaminophen Crossmatch 03/19/19 03/19/19 03/19/19 18:52 20:00 20:56 WBC RBC Hgb Hct MCV MCH MCHC RDW Plt Count Lymph % (Auto) [place] % (Auto) Lymph # [place] # Seg Neutrophils % Seg Neuts % (Manual) Lymphocytes % (Manual) Monocytes % (Manual) Eosinophils % (Manual) Nucleated RBC % Seg Neutrophils # Seg Neutrophils # Man Lymphocytes # (Manual) Monocytes # (Manual) Eosinophils # (Manual) PT INR APTT POC ABG pH POC ABG pCO2 POC ABG pO2 Sodium Potassium Chloride Carbon Dioxide BUN Creatinine Glucose POC Glucose 240 H 117 H Lactic Acid 5.90 H* Calcium Phosphorus Magnesium Iron TIBC Ferritin Direct Bilirubin AST Total Creatine Kinase Troponin T Total Protein Albumin Prealbumin LDL Cholesterol Direct HDL Cholesterol Vitamin B12 TSH PTH Intact Urine Creatinine Urine Total Protein Vancomycin Trough Salicylates Acetaminophen Crossmatch 03/19/19 03/19/19 03/19/19 21:19 22:07 23:00 WBC RBC Hgb Hct MCV MCH MCHC RDW Plt Count Lymph % (Auto) [place] % (Auto) Lymph # [place] # Seg Neutrophils % Seg Neuts % (Manual) Lymphocytes % (Manual) Monocytes % (Manual) Eosinophils % (Manual) Nucleated RBC % Seg Neutrophils # Seg Neutrophils # Man Lymphocytes # (Manual) Monocytes # (Manual) Eosinophils # (Manual) PT INR APTT POC ABG pH POC ABG pCO2 POC ABG pO2 Sodium Potassium Chloride Carbon Dioxide BUN Creatinine Glucose POC Glucose < 40 L 136 H Lactic Acid 6.10 H* Calcium Phosphorus Magnesium Iron TIBC Ferritin Direct Bilirubin AST Total Creatine Kinase Troponin T Total Protein Albumin Prealbumin LDL Cholesterol Direct HDL Cholesterol Vitamin B12 TSH PTH Intact Urine Creatinine Urine Total Protein Vancomycin Trough Salicylates Acetaminophen Crossmatch 03/20/19 03/20/19 03/20/19 00:05 01:38 02:23 WBC RBC Hgb Hct MCV MCH MCHC RDW Plt Count Lymph % (Auto) [place] % (Auto) Lymph # [place] # Seg Neutrophils % Seg Neuts % (Manual) Lymphocytes % (Manual) Monocytes % (Manual) Eosinophils % (Manual) Nucleated RBC % Seg Neutrophils # Seg Neutrophils # Man Lymphocytes # (Manual) Monocytes # (Manual) Eosinophils # (Manual) PT INR APTT POC ABG pH POC ABG pCO2 POC ABG pO2 Sodium Potassium Chloride Carbon Dioxide BUN Creatinine Glucose POC Glucose 68 L 153 H 127 H Lactic Acid Calcium Phosphorus Magnesium Iron TIBC Ferritin Direct Bilirubin AST Total Creatine Kinase Troponin T Total Protein Albumin Prealbumin LDL Cholesterol Direct HDL Cholesterol Vitamin B12 TSH PTH Intact Urine Creatinine Urine Total Protein Vancomycin Trough Salicylates Acetaminophen Crossmatch 03/20/19 03/20/19 03/20/19 03:12 04:31 04:41 WBC RBC Hgb Hct MCV MCH MCHC RDW Plt Count Lymph % (Auto) [place] % (Auto) Lymph # [place] # Seg Neutrophils % Seg Neuts % (Manual) Lymphocytes % (Manual) Monocytes % (Manual) Eosinophils % (Manual) Nucleated RBC % Seg Neutrophils # Seg Neutrophils # Man Lymphocytes # (Manual) Monocytes # (Manual) Eosinophils # (Manual) PT INR APTT POC ABG pH POC ABG pCO2 POC ABG pO2 53 L 65 L Sodium Potassium Chloride Carbon Dioxide BUN Creatinine Glucose POC Glucose 109 H Lactic Acid Calcium Phosphorus Magnesium Iron TIBC Ferritin Direct Bilirubin AST Total Creatine Kinase Troponin T Total Protein Albumin Prealbumin LDL Cholesterol Direct HDL Cholesterol Vitamin B12 TSH PTH Intact Urine Creatinine Urine Total Protein Vancomycin Trough Salicylates Acetaminophen Crossmatch 03/20/19 03/20/19 03/20/19 05:50 07:29 08:14 WBC RBC Hgb Hct MCV MCH MCHC RDW Plt Count Lymph % (Auto) [place] % (Auto) Lymph # [place] # Seg Neutrophils % Seg Neuts % (Manual) Lymphocytes % (Manual) Monocytes % (Manual) Eosinophils % (Manual) Nucleated RBC % Seg Neutrophils # Seg Neutrophils # Man Lymphocytes # (Manual) Monocytes # (Manual) Eosinophils # (Manual) PT INR APTT POC ABG pH POC ABG pCO2 POC ABG pO2 Sodium Potassium Chloride Carbon Dioxide BUN Creatinine Glucose 61 L POC Glucose 47 L 153 H Lactic Acid Calcium Phosphorus Magnesium 1.60 L Iron TIBC Ferritin Direct Bilirubin AST Total Creatine Kinase Troponin T Total Protein Albumin Prealbumin LDL Cholesterol Direct HDL Cholesterol Vitamin B12 TSH PTH Intact Urine Creatinine Urine Total Protein Vancomycin Trough Salicylates Acetaminophen Crossmatch 03/20/19 03/20/19 03/20/19 08:23 08:23 10:59 WBC RBC Hgb Hct MCV MCH MCHC RDW Plt Count Lymph % (Auto) [place] % (Auto) Lymph # [place] # Seg Neutrophils % Seg Neuts % (Manual) Lymphocytes % (Manual) Monocytes % (Manual) Eosinophils % (Manual) Nucleated RBC % Seg Neutrophils # Seg Neutrophils # Man Lymphocytes # (Manual) Monocytes # (Manual) Eosinophils # (Manual) PT INR APTT POC ABG pH POC ABG pCO2 POC ABG pO2 Sodium Potassium Chloride Carbon Dioxide BUN Creatinine Glucose 101 H POC Glucose 233 H Lactic Acid 9.70 H* Calcium Phosphorus Magnesium Iron TIBC Ferritin Direct Bilirubin AST Total Creatine Kinase Troponin T Total Protein Albumin Prealbumin 0.052 L LDL Cholesterol Direct HDL Cholesterol Vitamin B12 TSH PTH Intact Urine Creatinine Urine Total Protein Vancomycin Trough Salicylates Acetaminophen Crossmatch 03/20/19 03/20/19 03/20/19 12:23 16:10 16:40 WBC RBC Hgb Hct MCV MCH MCHC RDW Plt Count Lymph % (Auto) [place] % (Auto) Lymph # [place] # Seg Neutrophils % Seg Neuts % (Manual) Lymphocytes % (Manual) Monocytes % (Manual) Eosinophils % (Manual) Nucleated RBC % Seg Neutrophils # Seg Neutrophils # Man Lymphocytes # (Manual) Monocytes # (Manual) Eosinophils # (Manual) PT INR APTT POC ABG pH POC ABG pCO2 POC ABG pO2 Sodium Potassium Chloride Carbon Dioxide BUN Creatinine Glucose POC Glucose 135 H 171 H Lactic Acid Calcium Phosphorus Magnesium Iron TIBC Ferritin Direct Bilirubin AST Total Creatine Kinase Troponin T Total Protein Albumin Prealbumin LDL Cholesterol Direct HDL Cholesterol Vitamin B12 TSH PTH Intact Urine Creatinine 53.7 H Urine Total Protein 36 H Vancomycin Trough Salicylates Acetaminophen Crossmatch 03/20/19 03/20/19 03/20/19 16:57 17:38 17:50 WBC RBC Hgb Hct MCV MCH MCHC RDW Plt Count Lymph % (Auto) [place] % (Auto) Lymph # [place] # Seg Neutrophils % Seg Neuts % (Manual) Lymphocytes % (Manual) Monocytes % (Manual) Eosinophils % (Manual) Nucleated RBC % Seg Neutrophils # Seg Neutrophils # Man Lymphocytes # (Manual) Monocytes # (Manual) Eosinophils # (Manual) PT INR APTT POC ABG pH POC ABG pCO2 POC ABG pO2 Sodium Potassium Chloride Carbon Dioxide BUN Creatinine Glucose POC Glucose 152 H 147 H Lactic Acid 9.90 H* Calcium Phosphorus Magnesium Iron TIBC Ferritin Direct Bilirubin AST Total Creatine Kinase Troponin T Total Protein Albumin Prealbumin LDL Cholesterol Direct HDL Cholesterol Vitamin B12 TSH PTH Intact Urine Creatinine Urine Total Protein Vancomycin Trough Salicylates Acetaminophen Crossmatch 03/20/19 03/20/19 03/20/19 17:50 17:50 17:50 WBC RBC 2.92 L Hgb 10.0 L Hct 29.3 L MCV 100 H MCH 34 H MCHC RDW Plt Count 81 L Lymph % (Auto) [place] % (Auto) Lymph # [place] # Seg Neutrophils % Seg Neuts % (Manual) Lymphocytes % (Manual) Monocytes % (Manual) Eosinophils % (Manual) Nucleated RBC % Seg Neutrophils # Seg Neutrophils # Man Lymphocytes # (Manual) Monocytes # (Manual) Eosinophils # (Manual) PT INR APTT POC ABG pH POC ABG pCO2 POC ABG pO2 Sodium Potassium 2.8 L* D Chloride Carbon Dioxide BUN 30 H Creatinine 1.6 H Glucose 107 H POC Glucose Lactic Acid Calcium 6.9 L Phosphorus 2.00 L Magnesium Iron TIBC Ferritin Direct Bilirubin AST Total Creatine Kinase Troponin T Total Protein Albumin Prealbumin LDL Cholesterol Direct HDL Cholesterol Vitamin B12 TSH PTH Intact 171.6 H Urine Creatinine Urine Total Protein Vancomycin Trough Salicylates Acetaminophen Crossmatch 03/20/19 03/21/19 03/21/19 21:12 00:30 04:12 WBC RBC Hgb Hct MCV MCH MCHC RDW Plt Count Lymph % (Auto) [place] % (Auto) Lymph # [place] # Seg Neutrophils % Seg Neuts % (Manual) Lymphocytes % (Manual) Monocytes % (Manual) Eosinophils % (Manual) Nucleated RBC % Seg Neutrophils # Seg Neutrophils # Man Lymphocytes # (Manual) Monocytes # (Manual) Eosinophils # (Manual) PT INR APTT POC ABG pH POC ABG pCO2 POC ABG pO2 Sodium Potassium 3.0 L Chloride Carbon Dioxide 21 L BUN Creatinine 1.4 H Glucose 103 H POC Glucose Lactic Acid 8.70 H* 9.40 H* Calcium 6.8 L Phosphorus Magnesium Iron TIBC Ferritin Direct Bilirubin AST Total Creatine Kinase Troponin T Total Protein Albumin Prealbumin LDL Cholesterol Direct HDL Cholesterol Vitamin B12 TSH PTH Intact Urine Creatinine Urine Total Protein Vancomycin Trough Salicylates Acetaminophen Crossmatch 03/21/19 03/21/19 03/21/19 04:12 04:12 04:43 WBC RBC 2.84 L Hgb 9.5 L Hct 28.3 L MCV 100 H MCH 33 H MCHC RDW Plt Count 79 L Lymph % (Auto) [place] % (Auto) Lymph # [place] # Seg Neutrophils % Seg Neuts % (Manual) Lymphocytes % (Manual) Monocytes % (Manual) Eosinophils % (Manual) Nucleated RBC % Seg Neutrophils # Seg Neutrophils # Man Lymphocytes # (Manual) Monocytes # (Manual) Eosinophils # (Manual) PT INR APTT POC ABG pH 7.456 H POC ABG pCO2 POC ABG pO2 Sodium Potassium Chloride Carbon Dioxide BUN Creatinine Glucose POC Glucose Lactic Acid 9.50 H* Calcium Phosphorus Magnesium Iron TIBC Ferritin Direct Bilirubin AST Total Creatine Kinase Troponin T Total Protein Albumin Prealbumin LDL Cholesterol Direct HDL Cholesterol Vitamin B12 TSH PTH Intact Urine Creatinine Urine Total Protein Vancomycin Trough Salicylates Acetaminophen Crossmatch 03/21/19 03/21/19 03/21/19 08:06 08:08 10:11 WBC RBC Hgb Hct MCV MCH MCHC RDW Plt Count Lymph % (Auto) [place] % (Auto) Lymph # [place] # Seg Neutrophils % Seg Neuts % (Manual) Lymphocytes % (Manual) Monocytes % (Manual) Eosinophils % (Manual) Nucleated RBC % Seg Neutrophils # Seg Neutrophils # Man Lymphocytes # (Manual) Monocytes # (Manual) Eosinophils # (Manual) PT INR APTT POC ABG pH POC ABG pCO2 POC ABG pO2 Sodium Potassium 3.5 L Chloride Carbon Dioxide BUN 22 H Creatinine 1.3 H Glucose POC Glucose 64 L Lactic Acid 8.00 H* Calcium 7.0 L Phosphorus Magnesium Iron TIBC Ferritin Direct Bilirubin AST Total Creatine Kinase Troponin T Total Protein Albumin Prealbumin LDL Cholesterol Direct HDL Cholesterol Vitamin B12 TSH PTH Intact Urine Creatinine Urine Total Protein Vancomycin Trough Salicylates Acetaminophen Crossmatch 03/21/19 03/21/19 03/21/19 11:17 12:17 13:37 WBC RBC Hgb Hct MCV MCH MCHC RDW Plt Count Lymph % (Auto) [place] % (Auto) Lymph # [place] # Seg Neutrophils % Seg Neuts % (Manual) Lymphocytes % (Manual) Monocytes % (Manual) Eosinophils % (Manual) Nucleated RBC % Seg Neutrophils # Seg Neutrophils # Man Lymphocytes # (Manual) Monocytes # (Manual) Eosinophils # (Manual) PT INR APTT POC ABG pH POC ABG pCO2 POC ABG pO2 Sodium Potassium Chloride Carbon Dioxide BUN Creatinine Glucose POC Glucose 173 H 110 H Lactic Acid Calcium Phosphorus Magnesium Iron TIBC Ferritin Direct Bilirubin AST Total Creatine Kinase Troponin T 0.033 H D Total Protein Albumin Prealbumin LDL Cholesterol Direct HDL Cholesterol Vitamin B12 TSH PTH Intact Urine Creatinine Urine Total Protein Vancomycin Trough Salicylates Acetaminophen Crossmatch 03/21/19 03/21/19 03/21/19 13:37 17:21 18:52 WBC RBC Hgb Hct MCV MCH MCHC RDW Plt Count Lymph % (Auto) [place] % (Auto) Lymph # [place] # Seg Neutrophils % Seg Neuts % (Manual) Lymphocytes % (Manual) Monocytes % (Manual) Eosinophils % (Manual) Nucleated RBC % Seg Neutrophils # Seg Neutrophils # Man Lymphocytes # (Manual) Monocytes # (Manual) Eosinophils # (Manual) PT INR APTT POC ABG pH POC ABG pCO2 POC ABG pO2 Sodium Potassium Chloride Carbon Dioxide BUN Creatinine Glucose POC Glucose 130 H 107 H Lactic Acid 6.80 H* Calcium Phosphorus Magnesium Iron TIBC Ferritin Direct Bilirubin AST Total Creatine Kinase Troponin T Total Protein Albumin Prealbumin LDL Cholesterol Direct HDL Cholesterol Vitamin B12 TSH PTH Intact Urine Creatinine Urine Total Protein Vancomycin Trough Salicylates Acetaminophen Crossmatch 03/21/19 03/21/19 03/21/19 20:20 22:08 23:05 WBC RBC Hgb Hct MCV MCH MCHC RDW Plt Count Lymph % (Auto) [place] % (Auto) Lymph # [place] # Seg Neutrophils % Seg Neuts % (Manual) Lymphocytes % (Manual) Monocytes % (Manual) Eosinophils % (Manual) Nucleated RBC % Seg Neutrophils # Seg Neutrophils # Man Lymphocytes # (Manual) Monocytes # (Manual) Eosinophils # (Manual) PT INR APTT POC ABG pH POC ABG pCO2 POC ABG pO2 Sodium Potassium Chloride Carbon Dioxide BUN Creatinine Glucose POC Glucose 106 H 106 H Lactic Acid Calcium Phosphorus Magnesium Iron TIBC Ferritin Direct Bilirubin AST Total Creatine Kinase Troponin T 0.036 H Total Protein Albumin Prealbumin LDL Cholesterol Direct HDL Cholesterol Vitamin B12 TSH PTH Intact Urine Creatinine Urine Total Protein Vancomycin Trough Salicylates Acetaminophen Crossmatch 03/21/19 03/21/19 03/22/19 23:05 23:05 00:14 WBC RBC Hgb Hct MCV MCH MCHC RDW Plt Count Lymph % (Auto) [place] % (Auto) Lymph # [place] # Seg Neutrophils % Seg Neuts % (Manual) Lymphocytes % (Manual) Monocytes % (Manual) Eosinophils % (Manual) Nucleated RBC % Seg Neutrophils # Seg Neutrophils # Man Lymphocytes # (Manual) Monocytes # (Manual) Eosinophils # (Manual) PT INR APTT POC ABG pH POC ABG pCO2 POC ABG pO2 Sodium Potassium Chloride Carbon Dioxide BUN Creatinine Glucose POC Glucose 122 H 109 H Lactic Acid 7.00 H* Calcium Phosphorus Magnesium Iron TIBC Ferritin Direct Bilirubin AST Total Creatine Kinase Troponin T Total Protein Albumin Prealbumin LDL Cholesterol Direct HDL Cholesterol Vitamin B12 TSH PTH Intact Urine Creatinine Urine Total Protein Vancomycin Trough Salicylates Acetaminophen Crossmatch 03/22/19 03/22/19 03/22/19 03:10 04:02 05:11 WBC RBC Hgb Hct MCV MCH MCHC RDW Plt Count Lymph % (Auto) [place] % (Auto) Lymph # [place] # Seg Neutrophils % Seg Neuts % (Manual) Lymphocytes % (Manual) Monocytes % (Manual) Eosinophils % (Manual) Nucleated RBC % Seg Neutrophils # Seg Neutrophils # Man Lymphocytes # (Manual) Monocytes # (Manual) Eosinophils # (Manual) PT INR APTT POC ABG pH 7.487 H POC ABG pCO2 POC ABG pO2 67 L Sodium Potassium Chloride Carbon Dioxide BUN Creatinine Glucose POC Glucose 114 H 112 H Lactic Acid Calcium Phosphorus Magnesium Iron TIBC Ferritin Direct Bilirubin AST Total Creatine Kinase Troponin T Total Protein Albumin Prealbumin LDL Cholesterol Direct HDL Cholesterol Vitamin B12 TSH PTH Intact Urine Creatinine Urine Total Protein Vancomycin Trough Salicylates Acetaminophen Crossmatch 03/22/19 03/22/19 03/22/19 06:06 06:10 06:10 WBC RBC Hgb Hct MCV MCH MCHC RDW Plt Count Lymph % (Auto) [place] % (Auto) Lymph # [place] # Seg Neutrophils % Seg Neuts % (Manual) Lymphocytes % (Manual) Monocytes % (Manual) Eosinophils % (Manual) Nucleated RBC % Seg Neutrophils # Seg Neutrophils # Man Lymphocytes # (Manual) Monocytes # (Manual) Eosinophils # (Manual) PT INR APTT POC ABG pH POC ABG pCO2 POC ABG pO2 Sodium Potassium 3.0 L Chloride Carbon Dioxide BUN Creatinine Glucose POC Glucose 115 H Lactic Acid Calcium 7.0 L Phosphorus Magnesium Iron TIBC Ferritin Direct Bilirubin AST Total Creatine Kinase Troponin T 0.036 H Total Protein Albumin Prealbumin LDL Cholesterol Direct HDL Cholesterol Vitamin B12 TSH PTH Intact Urine Creatinine Urine Total Protein Vancomycin Trough Salicylates Acetaminophen Crossmatch 03/22/19 03/22/19 03/22/19 06:10 06:10 11:59 WBC RBC Hgb Hct MCV MCH MCHC RDW Plt Count Lymph % (Auto) [place] % (Auto) Lymph # [place] # Seg Neutrophils % Seg Neuts % (Manual) Lymphocytes % (Manual) Monocytes % (Manual) Eosinophils % (Manual) Nucleated RBC % Seg Neutrophils # Seg Neutrophils # Man Lymphocytes # (Manual) Monocytes # (Manual) Eosinophils # (Manual) PT INR APTT POC ABG pH POC ABG pCO2 POC ABG pO2 Sodium Potassium Chloride Carbon Dioxide BUN Creatinine Glucose POC Glucose Lactic Acid 4.80 H* 3.80 H* Calcium Phosphorus Magnesium Iron TIBC Ferritin Direct Bilirubin AST Total Creatine Kinase Troponin T Total Protein Albumin Prealbumin LDL Cholesterol Direct HDL Cholesterol Vitamin B12 TSH 7.810 H PTH Intact Urine Creatinine Urine Total Protein Vancomycin Trough Salicylates Acetaminophen Crossmatch 03/22/19 03/22/19 03/22/19 13:45 13:45 13:45 WBC RBC Hgb 8.3 L Hct 24.5 L MCV MCH MCHC RDW Plt Count 56 L Lymph % (Auto) [place] % (Auto) Lymph # [place] # Seg Neutrophils % Seg Neuts % (Manual) Lymphocytes % (Manual) Monocytes % (Manual) Eosinophils % (Manual) Nucleated RBC % Seg Neutrophils # Seg Neutrophils # Man Lymphocytes # (Manual) Monocytes # (Manual) Eosinophils # (Manual) PT 21.4 H INR 1.90 H APTT 43.2 H POC ABG pH POC ABG pCO2 POC ABG pO2 Sodium Potassium Chloride Carbon Dioxide BUN Creatinine Glucose POC Glucose Lactic Acid 3.50 H* Calcium Phosphorus Magnesium Iron TIBC Ferritin Direct Bilirubin AST Total Creatine Kinase Troponin T Total Protein Albumin Prealbumin LDL Cholesterol Direct HDL Cholesterol Vitamin B12 TSH PTH Intact Urine Creatinine Urine Total Protein Vancomycin Trough Salicylates Acetaminophen Crossmatch 03/22/19 03/23/19 03/23/19 22:20 01:06 04:50 WBC 12.1 H RBC 2.36 L Hgb 7.7 L Hct 22.9 L MCV MCH 33 H MCHC RDW Plt Count 37 L Lymph % (Auto) [place] % (Auto) Lymph # [place] # Seg Neutrophils % Seg Neuts % (Manual) 83.0 H Lymphocytes % (Manual) 8.0 L Monocytes % (Manual) Eosinophils % (Manual) Nucleated RBC % Seg Neutrophils # Seg Neutrophils # Man 10.0 H Lymphocytes # (Manual) 1.0 L Monocytes # (Manual) Eosinophils # (Manual) PT INR APTT POC ABG pH POC ABG pCO2 POC ABG pO2 Sodium Potassium Chloride Carbon Dioxide BUN Creatinine Glucose POC Glucose Lactic Acid 3.60 H* 2.70 H* Calcium Phosphorus Magnesium Iron TIBC Ferritin Direct Bilirubin AST Total Creatine Kinase Troponin T Total Protein Albumin Prealbumin LDL Cholesterol Direct HDL Cholesterol Vitamin B12 TSH PTH Intact Urine Creatinine Urine Total Protein Vancomycin Trough Salicylates Acetaminophen Crossmatch 03/23/19 03/23/19 03/23/19 04:50 05:25 05:53 WBC RBC Hgb Hct MCV MCH MCHC RDW Plt Count Lymph % (Auto) [place] % (Auto) Lymph # [place] # Seg Neutrophils % Seg Neuts % (Manual) Lymphocytes % (Manual) Monocytes % (Manual) Eosinophils % (Manual) Nucleated RBC % Seg Neutrophils # Seg Neutrophils # Man Lymphocytes # (Manual) Monocytes # (Manual) Eosinophils # (Manual) PT INR APTT POC ABG pH POC ABG pCO2 33.3 L POC ABG pO2 Sodium Potassium 3.5 L Chloride 108.3 H Carbon Dioxide BUN Creatinine Glucose POC Glucose 68 L Lactic Acid Calcium 7.3 L Phosphorus Magnesium Iron TIBC Ferritin Direct Bilirubin AST Total Creatine Kinase Troponin T Total Protein Albumin Prealbumin LDL Cholesterol Direct HDL Cholesterol Vitamin B12 TSH PTH Intact Urine Creatinine Urine Total Protein Vancomycin Trough Salicylates Acetaminophen Crossmatch 03/24/19 03/24/19 03/24/19 03:26 05:50 05:57 WBC RBC Hgb Hct MCV MCH MCHC RDW Plt Count Lymph % (Auto) [place] % (Auto) Lymph # [place] # Seg Neutrophils % Seg Neuts % (Manual) Lymphocytes % (Manual) Monocytes % (Manual) Eosinophils % (Manual) Nucleated RBC % Seg Neutrophils # Seg Neutrophils # Man Lymphocytes # (Manual) Monocytes # (Manual) Eosinophils # (Manual) PT INR APTT POC ABG pH POC ABG pCO2 POC ABG pO2 78 L Sodium Potassium 3.4 L Chloride 116.5 H Carbon Dioxide 21 L BUN Creatinine 0.5 L Glucose 105 H POC Glucose 127 H Lactic Acid Calcium 6.4 L Phosphorus Magnesium Iron TIBC Ferritin Direct Bilirubin AST Total Creatine Kinase Troponin T Total Protein Albumin Prealbumin LDL Cholesterol Direct HDL Cholesterol Vitamin B12 TSH PTH Intact Urine Creatinine Urine Total Protein Vancomycin Trough Salicylates Acetaminophen Crossmatch 03/24/19 03/24/19 03/24/19 06:00 11:30 12:25 WBC 13.6 H RBC 2.08 L Hgb 6.9 L Hct 20.5 L MCV 99 H MCH 33 H MCHC RDW Plt Count 50 L Lymph % (Auto) 8.1 L [place] % (Auto) 10.0 H Lymph # 1.1 L [place] # 1.4 H Seg Neutrophils % 80.7 H Seg Neuts % (Manual) Lymphocytes % (Manual) Monocytes % (Manual) Eosinophils % (Manual) Nucleated RBC % Seg Neutrophils # 11.0 H Seg Neutrophils # Man Lymphocytes # (Manual) Monocytes # (Manual) Eosinophils # (Manual) PT INR APTT POC ABG pH POC ABG pCO2 POC ABG pO2 Sodium Potassium Chloride Carbon Dioxide BUN Creatinine Glucose POC Glucose 111 H Lactic Acid Calcium Phosphorus Magnesium Iron TIBC Ferritin Direct Bilirubin AST Total Creatine Kinase Troponin T Total Protein Albumin Prealbumin LDL Cholesterol Direct HDL Cholesterol Vitamin B12 TSH PTH Intact Urine Creatinine Urine Total Protein Vancomycin Trough Salicylates Acetaminophen Crossmatch See Detail 03/24/19 03/25/19 03/25/19 14:25 05:20 10:00 WBC 13.4 H RBC 2.54 L Hgb 8.1 L Hct 24.3 L MCV MCH MCHC RDW 17.3 H Plt Count 44 L Lymph % (Auto) [place] % (Auto) Lymph # [place] # Seg Neutrophils % Seg Neuts % (Manual) Lymphocytes % (Manual) Monocytes % (Manual) Eosinophils % (Manual) Nucleated RBC % Seg Neutrophils # Seg Neutrophils # Man Lymphocytes # (Manual) Monocytes # (Manual) Eosinophils # (Manual) PT INR APTT POC ABG pH POC ABG pCO2 POC ABG pO2 Sodium Potassium Chloride Carbon Dioxide BUN Creatinine Glucose POC Glucose 111 H Lactic Acid Calcium Phosphorus Magnesium Iron 32 L TIBC 75 L Ferritin Direct Bilirubin AST Total Creatine Kinase Troponin T Total Protein Albumin Prealbumin LDL Cholesterol Direct HDL Cholesterol Vitamin B12 TSH PTH Intact Urine Creatinine Urine Total Protein Vancomycin Trough Salicylates Acetaminophen Crossmatch 03/25/19 03/25/19 03/25/19 10:11 10:11 23:11 WBC RBC Hgb Hct MCV MCH MCHC RDW Plt Count Lymph % (Auto) [place] % (Auto) Lymph # [place] # Seg Neutrophils % Seg Neuts % (Manual) Lymphocytes % (Manual) Monocytes % (Manual) Eosinophils % (Manual) Nucleated RBC % Seg Neutrophils # Seg Neutrophils # Man Lymphocytes # (Manual) Monocytes # (Manual) Eosinophils # (Manual) PT INR APTT POC ABG pH POC ABG pCO2 POC ABG pO2 Sodium Potassium Chloride 112.0 H Carbon Dioxide BUN 20 H Creatinine 0.6 L Glucose POC Glucose 112 H Lactic Acid Calcium 7.2 L Phosphorus Magnesium Iron TIBC Ferritin Direct Bilirubin AST Total Creatine Kinase Troponin T Total Protein Albumin Prealbumin LDL Cholesterol Direct HDL Cholesterol Vitamin B12 > 2000 H TSH PTH Intact Urine Creatinine Urine Total Protein Vancomycin Trough Salicylates Acetaminophen Crossmatch 03/26/19 03/26/19 03/26/19 05:00 05:00 05:16 WBC 14.4 H RBC 2.74 L Hgb 8.9 L Hct 25.7 L MCV MCH 33 H MCHC 35 H RDW 16.9 H Plt Count 60 L Lymph % (Auto) [place] % (Auto) Lymph # [place] # Seg Neutrophils % Seg Neuts % (Manual) 83.0 H Lymphocytes % (Manual) 5.0 L Monocytes % (Manual) Eosinophils % (Manual) 5.0 H Nucleated RBC % 1.0 H Seg Neutrophils # Seg Neutrophils # Man 12.0 H Lymphocytes # (Manual) 0.7 L Monocytes # (Manual) 0.9 H Eosinophils # (Manual) 0.7 H PT INR APTT POC ABG pH POC ABG pCO2 POC ABG pO2 Sodium Potassium 3.1 L Chloride 110.4 H Carbon Dioxide BUN 22 H Creatinine Glucose 101 H POC Glucose 114 H Lactic Acid Calcium 7.4 L Phosphorus Magnesium Iron TIBC Ferritin Direct Bilirubin AST Total Creatine Kinase Troponin T Total Protein Albumin Prealbumin LDL Cholesterol Direct HDL Cholesterol Vitamin B12 TSH PTH Intact Urine Creatinine Urine Total Protein Vancomycin Trough Salicylates Acetaminophen Crossmatch 03/26/19 03/27/19 03/27/19 11:55 09:04 09:04 WBC RBC Hgb Hct MCV MCH MCHC RDW Plt Count Lymph % (Auto) [place] % (Auto) Lymph # [place] # Seg Neutrophils % Seg Neuts % (Manual) Lymphocytes % (Manual) Monocytes % (Manual) Eosinophils % (Manual) Nucleated RBC % Seg Neutrophils # Seg Neutrophils # Man Lymphocytes # (Manual) Monocytes # (Manual) Eosinophils # (Manual) PT INR APTT POC ABG pH POC ABG pCO2 POC ABG pO2 Sodium Potassium 3.2 L Chloride Carbon Dioxide BUN 22 H Creatinine Glucose POC Glucose 121 H Lactic Acid Calcium 7.7 L Phosphorus Magnesium Iron TIBC Ferritin Direct Bilirubin AST Total Creatine Kinase Troponin T Total Protein Albumin Prealbumin LDL Cholesterol Direct HDL Cholesterol Vitamin B12 TSH PTH Intact Urine Creatinine Urine Total Protein Vancomycin Trough 23.0 H Salicylates Acetaminophen Crossmatch 03/27/19 03/27/19 03/27/19 09:04 13:31 14:04 WBC 14.8 H RBC 2.52 L Hgb 8.0 L 8.3 L Hct 24.0 L 25.3 L MCV MCH MCHC RDW 17.0 H Plt Count 89 L 91 L Lymph % (Auto) [place] % (Auto) 8.8 H Lymph # [place] # 1.3 H Seg Neutrophils % 70.7 H Seg Neuts % (Manual) Lymphocytes % (Manual) Monocytes % (Manual) Eosinophils % (Manual) Nucleated RBC % Seg Neutrophils # 10.5 H Seg Neutrophils # Man Lymphocytes # (Manual) Monocytes # (Manual) Eosinophils # (Manual) PT INR APTT POC ABG pH POC ABG pCO2 POC ABG pO2 Sodium Potassium Chloride Carbon Dioxide BUN Creatinine Glucose POC Glucose Lactic Acid Calcium Phosphorus Magnesium Iron TIBC Ferritin Direct Bilirubin 0.3 H AST Total Creatine Kinase Troponin T Total Protein 4.9 L Albumin 1.3 L Prealbumin LDL Cholesterol Direct HDL Cholesterol Vitamin B12 TSH PTH Intact Urine Creatinine Urine Total Protein Vancomycin Trough Salicylates Acetaminophen Crossmatch 03/27/19 03/27/19 03/28/19 14:04 23:51 01:05 WBC 14.4 H RBC 2.44 L Hgb 8.0 L Hct 24.5 L MCV 100 H MCH 33 H MCHC RDW 18.5 H Plt Count 86 L Lymph % (Auto) [place] % (Auto) Lymph # [place] # Seg Neutrophils % Seg Neuts % (Manual) 84.0 H Lymphocytes % (Manual) 10.0 L Monocytes % (Manual) Eosinophils % (Manual) Nucleated RBC % Seg Neutrophils # Seg Neutrophils # Man 12.1 H Lymphocytes # (Manual) Monocytes # (Manual) Eosinophils # (Manual) PT 21.4 H INR 1.90 H APTT 42.2 H POC ABG pH POC ABG pCO2 POC ABG pO2 Sodium Potassium Chloride Carbon Dioxide BUN Creatinine Glucose POC Glucose 130 H Lactic Acid Calcium Phosphorus Magnesium Iron TIBC Ferritin Direct Bilirubin AST Total Creatine Kinase Troponin T Total Protein Albumin Prealbumin LDL Cholesterol Direct HDL Cholesterol Vitamin B12 TSH PTH Intact Urine Creatinine Urine Total Protein Vancomycin Trough Salicylates Acetaminophen Crossmatch 03/28/19 03/28/19 03/28/19 02:51 04:45 07:31 WBC RBC Hgb Hct MCV MCH MCHC RDW Plt Count Lymph % (Auto) [place] % (Auto) Lymph # [place] # Seg Neutrophils % Seg Neuts % (Manual) Lymphocytes % (Manual) Monocytes % (Manual) Eosinophils % (Manual) Nucleated RBC % Seg Neutrophils # Seg Neutrophils # Man Lymphocytes # (Manual) Monocytes # (Manual) Eosinophils # (Manual) PT INR APTT 75.0 H* POC ABG pH POC ABG pCO2 POC ABG pO2 Sodium Potassium Chloride Carbon Dioxide BUN 22 H Creatinine Glucose POC Glucose Lactic Acid Calcium 7.8 L Phosphorus Magnesium Iron TIBC Ferritin 448.3 H Direct Bilirubin AST Total Creatine Kinase Troponin T Total Protein Albumin Prealbumin LDL Cholesterol Direct HDL Cholesterol Vitamin B12 TSH PTH Intact Urine Creatinine Urine Total Protein Vancomycin Trough Salicylates Acetaminophen Crossmatch
--- NOTE | 2019-03-28 13:54 | Progress Note ---
Assessment and Plan Acute respiratory failure CXR showing volume overload improvement Sepsis Pneumonia Acute kidney failure Atrial fibrillation with RVR on amiodarone and digoxin for rate control Altered mental status Anemia and thrombocytopenia Acute Right common femoral DVT and right IJ vein thrombosis on argatroban drip Echocardiogram shows a normal left ventricular systolic function, ejection fraction 60-65%. Continue medical management for paroxysmal atrial fibrillation. Subjective Date of service: 03/28/19 Principal diagnosis: low plt - DVT Interval history: Patient is alert with eyes open but remains intubated on the vent. Sinus rhythm on telemetry. Objective Vital Signs Temp Pulse Pulse Resp Resp BP Pulse Ox 03/28/19 11:45 126 H 17 127/56 98 03/28/19 11:30 124 H 18 127/55 97 03/28/19 11:23 127 H 114/52 99 03/28/19 11:16 124 H 15 109/55 98 03/28/19 11:00 126 H 14 95/56 99 03/28/19 10:45 129 H 18 99/63 99 03/28/19 10:30 126 H 17 108/56 99 03/28/19 10:29 127 H 122/61 03/28/19 10:15 127 H 18 122/61 99 03/28/19 10:00 124 H 16 116/55 99 03/28/19 09:45 126 H 16 95/53 03/28/19 09:30 125 H 14 102/52 99 03/28/19 09:15 124 H 14 104/49 99 03/28/19 09:00 122 H 16 105/45 98 03/28/19 08:50 120 H 14 03/28/19 08:45 120 H 17 121/51 97 03/28/19 08:30 121 H 21 119/60 99 03/28/19 08:15 122 H 15 117/91 100 03/28/19 08:12 117 H 117/91 100 03/28/19 08:00 99.7 F H 118 H 14 116/54 03/28/19 07:45 118 H 16 118/57 03/28/19 07:30 118 H 15 95/48 100 03/28/19 07:15 120 H 13 119/50 100 03/28/19 07:00 117 H 16 131/58 100 03/28/19 06:45 114 H 13 130/58 03/28/19 06:30 117 H 14 129/57 03/28/19 06:15 117 H 15 126/58 03/28/19 06:00 119 H 14 127/57 100 03/28/19 05:45 118 H 17 118/53 03/28/19 05:30 119 H 16 126/59 100 03/28/19 05:25 55 L 145/71 98 03/28/19 05:15 121 H 20 111/56 99 03/28/19 05:00 120 H 23 118/59 03/28/19 04:45 120 H 19 110/51 99 03/28/19 04:30 119 H 15 113/52 03/28/19 04:15 119 H 17 101/50 99 03/28/19 04:00 102.1 F H 119 H 17 115/47 99 03/28/19 03:46 129 H 16 113/48 97 03/28/19 03:30 121 H 15 102/45 03/28/19 03:15 120 H 16 98/44 100 03/28/19 03:00 123 H 16 115/50 98 03/28/19 02:45 117 H 18 102/46 100 03/28/19 02:39 102.1 F H 03/28/19 02:30 124 H 19 111/55 99 03/28/19 02:15 123 H 17 115/50 99 03/28/19 02:10 122 H 17 03/28/19 02:00 124 H 15 111/48 100 03/28/19 01:45 123 H 18 111/47 99 03/28/19 01:34 124 H 17 100 03/28/19 01:15 124 H 22 108/51 03/28/19 01:00 125 H 21 82/55 99 03/28/19 00:53 126 H 94/48 99 03/28/19 00:45 126 H 21 94/48 99 03/28/19 00:30 128 H 19 100/53 99 03/28/19 00:15 128 H 21 101/53 03/28/19 00:00 130 H 18 110/50 99 03/27/19 23:45 131 H 22 109/63 98 03/27/19 23:30 128 H 19 104/57 99 03/27/19 23:21 102.7 F H 03/27/19 23:15 124 H 17 116/56 07/29/19 23:01 130 H 18 122/63 99 03/27/19 23:00 130 H 20 122/63 99 03/27/19 22:45 129 H 18 120/53 99 03/27/19 22:30 128 H 19 113/54 98 03/27/19 22:15 126 H 19 112/55 03/27/19 22:00 127 H 18 111/48 96 03/27/19 21:45 126 H 19 110/54 95 03/27/19 21:31 116 H 17 108/47 99 03/27/19 21:15 124 H 19 109/49 99 03/27/19 21:00 122 H 20 120/55 100 03/27/19 20:45 133 H 21 112/56 100 03/27/19 20:30 114 H 17 104/53 100 03/27/19 20:15 101 H 15 100/46 100 03/27/19 20:00 100 H 110 H 25 H 24 111/44 97 03/27/19 19:50 98 H 98 03/27/19 19:45 100.8 F H 88 21 122/53 03/27/19 19:30 92 H 23 122/53 99 03/27/19 19:15 99 H 22 118/52 98 03/27/19 19:00 75 17 116/49 100 03/27/19 18:45 97 H 20 136/47 99 03/27/19 18:30 89 17 120/45 99 03/27/19 18:15 129 H 17 133/62 03/27/19 18:00 120 H 17 133/62 99 03/27/19 17:45 101 H 16 129/57 99 03/27/19 17:30 101 H 17 131/47 99 03/27/19 17:15 103 H 16 121/46 99 03/27/19 17:00 97 H 18 121/46 99 03/27/19 16:45 99 H 20 108/56 99 03/27/19 16:31 77 15 114/62 97 03/27/19 16:15 76 22 113/45 99 03/27/19 16:12 76 108/45 100 03/27/19 16:00 98.4 F 78 22 108/45 95 03/27/19 15:45 78 28 H 108/42 98 03/27/19 15:30 79 22 105/43 98 03/27/19 15:15 79 26 H 103/45 99 03/27/19 15:00 79 23 108/46 99 03/27/19 14:45 79 22 106/45 98 03/27/19 14:30 79 21 104/45 03/27/19 14:15 81 22 102/47 98 03/27/19 14:00 81 22 98/49 03/27/19 13:56 86 26 H - Physical Examination General: Other (intubated on the vent) Cardiac: Positive: Tachycardia - Labs and Meds Cardiac Enzymes 03/27/19 Range/Units 13:31 AST 26 (5-40) units/L Coagulation 03/27/19 03/28/19 Range/Units 14:04 02:51 PT 21.4 H (12.2-14.9) Sec. INR 1.90 H (0.87-1.13) APTT 42.2 H 75.0 H* (24.2-36.6) Sec. CBC 03/27/19 03/28/19 Range/Units 14:04 01:05 WBC 14.4 H (4.5-11.0) K/mm3 RBC 2.44 L (3.65-5.03) M/mm3 Hgb 8.3 L 8.0 L (10.1-14.3) gm/dl Hct 25.3 L 24.5 L (30.3-42.9) % Plt Count 91 L 86 L (140-440) K/mm3 Comprehensive Metabolic Panel 03/27/19 03/28/19 Range/Units 13:31 04:45 Sodium 142 (137-145) mmol/L Potassium 3.6 (3.6-5.0) mmol/L Chloride 106.9 (98-107) mmol/L Carbon Dioxide 30 (22-30) mmol/L BUN 22 H (7-17) mg/dL Creatinine 0.7 (0.7-1.2) mg/dL Glucose 90 (65-100) mg/dL Calcium 7.8 L (8.4-10.2) mg/dL Direct Bilirubin 0.3 H (0-0.2) mg/dL Indirect Bilirubin 0.2 mg/dL AST 26 (5-40) units/L ALT 11 (7-56) units/L Alkaline Phosphatase 114 (35-129) units/L Total Protein 4.9 L (6.3-8.2) g/dL Albumin 1.3 L (3.9-5) g/dL
[2019-03-29] MEDS: HumaLOG SUB-Q SCH ×4 (00:27→18:50)
[2019-03-29] MEDS: DUONEB *Not for PRN Use IH SCH ×4 (02:27→19:33)
[2019-03-29 05:07] LABS: Basophils # (Auto) 0.1 K/mm3 (0.0-0.1); Basophils % (Auto) 0.6 % (0.0-1.8); Eosinophils # (Auto) 0.3 K/mm3 (0.0-0.4); Eosinophils % (Auto) 2.8 % (0.0-4.3); Hematocrit 20.8 % (30.3-42.9); Hemoglobin 7.1 gm/dl (10.1-14.3); Lymphocytes # (Auto) 2.1 K/mm3 (1.2-5.4); Lymphocytes % (Auto) 20.2 % (13.4-35.0); Mean Corpuscular HGB Conc 34 % (30-34); Mean Corpuscular Volume 96 fl (79-97); Monocytes # (Auto) 0.7 K/mm3 (0.0-0.8); Monocytes % (Auto) 7.1 % (0.0-7.3); Platelet Count 122 K/mm3 (140-440); Red Blood Count 2.17 M/mm3 (3.65-5.03); Red Cell Distribution Width 17.1 % (13.2-15.2)
[2019-03-29] MEDS: MERREM 1,000 MG in NACL 0.9% 100 ML IV SCH ×3 (05:32→21:38)
[2019-03-29 05:41] LABS: Alanine Aminotransferase 9 units/L (7-56); Albumin 1.4 g/dL (3.9-5); BUN/Creatinine Ratio 44; Blood Urea Nitrogen 22 mg/dL (7-17); Hemolysis Index 2
--- NOTE | 2019-03-29 06:31 | Event Note ---
Date: 03/29/19 Patient has elevated digoxin level of 3.5; will hold today's schedule IV digoxin 0.125mg and repeat digoxin level at noon. Communication order placed to hold today's scheduled med, and also spoke with nurse regarding this as well.
--- NOTE | 2019-03-29 07:41 | Hem/Onc Progress Note ---
Assessment and Plan low plt - since admission DVT was on home hospice 1. Thrombocytopenia. This may be secondary to medications. The platelets were even low at admission. The differential includes infection versus a marrow issue. At this time, platelets are adequate, we will follow the trend. Because of clinical suspicion, HIT test has been ordered. Argatroban ordered. Heparin has been stopped. 2. Pneumonia. 3. Encephalopathy. 4. Respiratory failure, on vent. 5. Renal impairment. 6. Deep vein thrombosis. Her immobilization may have a role. Central line also may have a role. At this time, the patient is on Argatroban. Once HIT antibody is negative, we will look into changing to oral anticoagulation like Eliquis or Xarelto. Her thrombocytopenia may complicate, the patient had low platelet even at admission. IVC filter may prevent the leg DVT from progression to PE; however, for IJ DVT, we have limited options. The patient was on home hospice as per notes. Atrial fibrillation, she was on medications. History of anemia, we will do deficiency investigations. Leukocytosis, likely reactive. B12 level more than 2000, serum iron 32. HIT antibody done on 03/27 anemia - IV iron trial - Patient Problems (1) Thrombocytopenia Current Visit: Yes Status: Acute Subjective Date of service: 03/29/19 Principal diagnosis: low plt Interval history: pt on vent - looks at you Objective - Exam Narrative Exam: Pain - none - on vent General appearance intubated Performance status - complete help needed Eyes - no icterus ENT no thrush LNs cervical not palpable Neck - moves minimally Respiratory Normal Breath sounds - CTA anteriorly CVS S1 S2 + Extremities normal temperature - flaccid General GI Soft - distended Rectal deferred male - deferred Skin warm Musculoskeletal not able to evaluate Neurologically eyes open - on vent - Constitutional Vitals: Last Vital Signs Temp 100.1 F H 03/29/19 04:00 Pulse 124 H 03/29/19 07:00 Resp 17 03/29/19 07:00 BP 130/62 03/29/19 07:00 Pulse Ox 98 03/29/19 07:00 - Labs Lab Results: Laboratory Results - last 24 hr 03/28/19 03/28/19 03/28/19 07:31 07:31 14:30 WBC RBC Hgb Hct MCV MCH MCHC RDW Plt Count Lymph % (Auto) [place] % (Auto) Eos % (Auto) Baso % (Auto) Lymph # [place] # Eos # Baso # Seg Neutrophils % Seg Neutrophils # APTT 70.3 H* Sodium Potassium Chloride Carbon Dioxide Anion Gap BUN Creatinine Estimated GFR BUN/Creatinine Ratio Glucose POC Glucose Calcium Ferritin 448.3 H Total Bilirubin AST ALT Alkaline Phosphatase Total Protein Albumin Albumin/Globulin Ratio Folate 18.61 Digoxin 03/28/19 03/29/19 03/29/19 17:22 00:29 04:40 WBC 10.4 RBC 2.17 L Hgb 7.1 L Hct 20.8 L MCV 96 MCH 33 H MCHC 34 RDW 17.1 H Plt Count 122 L Lymph % (Auto) 20.2 [place] % (Auto) 7.1 Eos % (Auto) 2.8 Baso % (Auto) 0.6 Lymph # 2.1 [place] # 0.7 Eos # 0.3 Baso # 0.1 Seg Neutrophils % 69.3 Seg Neutrophils # 7.2 APTT Sodium Potassium Chloride Carbon Dioxide Anion Gap BUN Creatinine Estimated GFR BUN/Creatinine Ratio Glucose POC Glucose 103 87 Calcium Ferritin Total Bilirubin AST ALT Alkaline Phosphatase Total Protein Albumin Albumin/Globulin Ratio Folate Digoxin 03/29/19 03/29/19 03/29/19 04:40 04:40 04:40 WBC RBC Hgb Hct MCV MCH MCHC RDW Plt Count Lymph % (Auto) [place] % (Auto) Eos % (Auto) Baso % (Auto) Lymph # [place] # Eos # Baso # Seg Neutrophils % Seg Neutrophils # APTT 71.8 H* Sodium 140 Potassium 3.7 Chloride 102.9 Carbon Dioxide 31 H Anion Gap 10 BUN 22 H Creatinine 0.5 L Estimated GFR > 60 BUN/Creatinine Ratio 44 Glucose 80 POC Glucose Calcium 8.0 L Ferritin Total Bilirubin 0.50 AST 23 ALT 9 Alkaline Phosphatase 103 Total Protein 5.0 L Albumin 1.4 L Albumin/Globulin Ratio 0.4 Folate Digoxin 3.5 H* Medications & Allergies - Medications Allergies/Adverse Reactions: Allergies No Known Allergies Allergy (Unverified 03/19/19 13:11) Home Medications: Home Medications Medication Instructions Recorded Confirmed Last Taken Type Aspirin EC 81 mg PO DAILY 03/20/19 03/20/19 Unknown History Divalproex Sodium 375 mg PO Q8H PRN 03/20/19 03/20/19 Unknown History Metoprolol [Lopressor TAB] 50 mg PO BID 03/20/19 03/20/19 Unknown History Sennosides/Docusate Sodium [Senna 8.6 mg PO BID PRN 03/20/19 03/20/19 Unknown History Plus Tablet] levETIRAcetam [Keppra TAB] 500 mg PO BID 03/20/19 03/20/19 Unknown History Active Medications: Generic Name Dose Route Start Last Admin Trade Name Manq PRN Reason Stop Dose Admin Acetaminophen 650 mg 03/24/19 23:48 03/27/19 23:31 Tylenol FEEDTUBE 650 mg Q6H PRN Administration Fever >101 Albuterol 2.5 mg 03/19/19 23:58 Proventil IH Q3HRT PRN Shortness Of Breath Albuterol/Ipratropium 1 ampul 03/20/19 02:00 03/29/19 02:27 Duoneb *Not For Prn Use* IH 1 ampul Q6HRT YUSUF Administration Amiodarone HCl 200 mg 03/22/19 22:00 03/28/19 21:45 Cordarone PO 200 mg BID YUSUF Administration Lipase/Protease/Amylase 1 each 03/22/19 16:03 Pancreaze 10,500 Unit FEEDTUBE PRN PRN For Clogged Feeding Tube Aspirin 81 mg 03/21/19 10:00 03/28/19 10:27 Baby Aspirin PO 81 mg DAILY YUSUF Administration Budesonide 0.5 mg 03/19/19 23:45 03/28/19 19:30 Pulmicort IH 0.5 mg Q12HRT YUSUF Administration Dextrose 50 ml 03/19/19 23:58 03/21/19 16:29 D50w (25gm) Syringe IV 50 ml PRN PRN Administration Hypoglycemia Digoxin 0.125 mg 03/27/19 11:00 03/28/19 10:29 Lanoxin IV 0.125 mg Q24H YUSUF Administration Famotidine 20 mg 03/22/19 10:00 03/28/19 21:45 Pepcid PO 20 mg BID YUSUF Administration Fentanyl 50 mcg 03/19/19 12:45 03/19/19 13:26 Sublimaze IV 50 mcg Q10MIN PRN Administration ANALGESIA Hydromorphone HCl 0.5 mg 03/19/19 23:58 Dilaudid IV Q3H PRN Pain , Severe (7-10) Hydrophilic Ointment 1 applic 03/19/19 12:45 Vaseline Lip Therapy TP Q2HR PRN Dry Lips Fentanyl Citrate 2,000 mcg in 100 mls @ 2.835 mls/hr 03/19/19 14:00 03/21/19 11:33 Fentanyl Drip Premix IV 0 mcg/kg/hr TITR YUSUF 0 mls/hr Titration Protocol 1 MCG/KG/HR Norepinephrine 4 mg in 250 mls @ 7.5 mls/hr 03/25/19 11:00 03/28/19 08:45 Levophed Drip 4 Mg/Ns 250 Ml IV 0 mcg/min TITR YUSUF 0 mls/hr Titration Protocol 2 MCG/MIN Meropenem 1,000 mg/ Sodium 100 mls @ 100 mls/hr 03/26/19 15:00 03/29/19 05:32 Chloride IV 100 mls/hr Q8HR YUSUF Administration Protocol Argatroban 250 mg/ Sodium 250 mls @ 1.863 mls/hr 03/27/19 14:00 03/29/19 05:18 Chloride IV 0.5 mcg/kg/min TITR YUSUF 1.863 mls/hr Titration Protocol 0.5 MCG/KG/MIN Insulin Human Lispro 0 unit 03/20/19 00:00 03/29/19 05:32 Humalog SUB-Q Not Given Q6HR YUSUF Protocol Metoclopramide HCl 5 mg 03/20/19 00:12 Reglan IV Q6H PRN Nausea And Vomiting Metoprolol Tartrate 2.5 mg 03/23/19 13:17 03/24/19 21:20 Lopressor IV 2.5 mg Q2HR PRN Administration HR >150 Multi-Ingred Cream/Lotion/Oil/Oint 1 applic 03/19/19 12:45 Artificial Tears Ophth Oint OU Q4HR PRN Dry Eye(s) Ondansetron HCl 4 mg 03/19/19 23:58 Zofran IV Q8H PRN Nausea And Vomiting Promethazine HCl 25 mg 03/19/19 23:58 Phenergan ME Q6H PRN N/V IF NPO AND NO IV ACCESS Simple Syrup 15 ml 03/22/19 16:03 03/23/19 07:21 Simple Syrup FEEDTUBE 15 ml PRN PRN Administration Hypoglycemia Simple Syrup 30 ml 03/22/19 16:03 Simple Syrup FEEDTUBE PRN PRN Hypoglycemia Sodium Bicarbonate 325 mg 03/22/19 16:03 Sodium Bicarbonate FEEDTUBE PRN PRN For Clogged Feeding Tube Sodium Chloride 10 ml 03/20/19 10:00 03/28/19 21:45 Sodium Chloride Flush Syringe 10 Ml IV 10 ml BID YUSUF Administration Sodium Chloride 10 ml 03/19/19 23:58 Sodium Chloride Flush Syringe 10 Ml IV PRN PRN LINE FLUSH
[2019-03-29] MEDS: PULMICORT IH SCH ×2 (08:42→19:33)
[2019-03-29] MEDS: TYLENOL FEEDTUBE PRN ×2 (08:55→21:36)
[2019-03-29] MEDS: BABY ASPIRIN PO SCH (10:32)
[2019-03-29] MEDS: CORDARONE PO SCH ×2 (10:32→21:37)
[2019-03-29] MEDS: PEPCID PO SCH ×2 (10:33→21:36)
[2019-03-29] MEDS: SODIUM CHLORIDE FLUSH SYRINGE 10 ML IV SCH ×2 (10:33→21:38)
--- NOTE | 2019-03-29 11:25 | Progress Note ---
<TAYA HIGHTOWER - Last Filed: 03/29/19 11:23> Assessment and Plan Acute respiratory failure CXR showing volume overload improvement Sepsis Pneumonia Acute kidney failure Paroxysmal Atrial fibrillation currently in sinus rhythm on amiodarone Digoxin toxicity Altered mental status Anemia and thrombocytopenia Acute Right common femoral DVT and right IJ vein thrombosis on argatroban drip Echocardiogram shows a normal left ventricular systolic function, ejection fraction 60-65%. Plan: We will discontinue digoxin. Continue amiodarone for paroxysmal atrial fibrillation. Subjective Date of service: 03/29/19 Principal diagnosis: low plt - DVT Interval history: Noted a digoxin level of 3.5 this morning. Objective Vital Signs Temp Pulse Pulse Pulse Resp Resp BP 03/29/19 09:00 125 H 24 03/29/19 08:33 121 H 120/58 03/29/19 08:30 123 H 17 120/58 03/29/19 08:15 121 H 13 135/57 03/29/19 08:00 101.4 F H 121 H 125 H 17 130/58 03/29/19 07:45 124 H 18 135/56 03/29/19 07:30 122 H 20 134/58 03/29/19 07:15 123 H 16 131/60 03/29/19 07:00 124 H 17 130/62 03/29/19 06:45 123 H 15 135/56 03/29/19 06:30 121 H 21 129/58 03/29/19 06:15 123 H 20 127/59 03/29/19 06:00 122 H 15 128/56 03/29/19 05:45 123 H 16 133/56 03/29/19 05:30 123 H 15 144/61 03/29/19 05:15 120 H 16 136/60 03/29/19 05:00 123 H 17 142/63 03/29/19 04:45 123 H 15 135/67 03/29/19 04:30 123 H 13 124/58 03/29/19 04:15 124 H 13 112/58 03/29/19 04:00 100.1 F H 123 H 121 H 13 120/58 03/29/19 03:45 122 H 13 118/51 03/29/19 03:30 124 H 13 111/50 03/29/19 03:15 126 H 19 108/59 03/29/19 03:00 125 H 14 107/54 03/29/19 02:45 126 H 15 107/54 03/29/19 02:43 133 H 24 03/29/19 02:30 127 H 17 124/59 03/29/19 02:15 129 H 18 126/74 03/29/19 02:00 128 H 14 121/57 03/29/19 01:45 122 H 17 121/57 03/29/19 01:30 121 H 18 131/57 03/29/19 01:15 120 H 15 128/58 03/29/19 01:00 119 H 20 129/59 03/29/19 00:45 122 H 17 127/58 03/29/19 00:30 122 H 25 H 123/55 03/29/19 00:15 123 H 13 119/54 03/29/19 00:00 99.0 F 123 H 124 H 13 123/54 03/28/19 23:52 123 H 17 123/54 03/28/19 23:45 124 H 16 123/54 03/28/19 23:40 125 H 115/55 03/28/19 23:30 124 H 17 115/55 03/28/19 23:15 124 H 14 120/57 03/28/19 23:00 125 H 23 126/56 03/28/19 22:45 126 H 18 117/63 03/28/19 22:30 125 H 17 125/61 03/28/19 22:15 124 H 18 139/59 03/28/19 22:00 127 H 19 138/60 03/28/19 21:45 128 H 28 H 138/60 03/28/19 21:30 126 H 20 127/58 03/28/19 21:15 127 H 18 137/57 03/28/19 21:00 129 H 18 121/56 03/28/19 20:45 126 H 13 117/56 03/28/19 20:30 126 H 17 131/56 03/28/19 20:15 130 H 15 132/56 03/28/19 20:00 100.8 F H 131 H 131 H 13 124/61 03/28/19 19:58 130 H 24 03/28/19 19:45 132 H 18 114/54 03/28/19 19:30 132 H 17 129/54 03/28/19 19:25 127 H 115/52 03/28/19 19:15 130 H 15 115/52 03/28/19 19:00 128 H 23 114/54 03/28/19 18:45 129 H 22 114/54 03/28/19 18:30 130 H 16 115/46 03/28/19 18:15 129 H 14 107/56 03/28/19 18:00 130 H 18 100/55 03/28/19 17:45 127 H 20 95/45 03/28/19 17:30 130 H 22 111/51 03/28/19 17:15 131 H 17 115/58 03/28/19 17:00 128 H 21 115/56 03/28/19 16:45 128 H 17 116/53 03/28/19 16:30 128 H 15 101/53 03/28/19 16:15 129 H 16 105/48 03/28/19 16:00 99.5 F 129 H 16 126/42 03/28/19 15:45 128 H 17 109/52 03/28/19 15:30 128 H 17 108/53 03/28/19 15:15 129 H 16 115/61 03/28/19 15:11 128 H 115/61 03/28/19 15:00 126 H 18 118/61 03/28/19 14:45 126 H 43 H 118/61 03/28/19 14:40 139 H 21 03/28/19 14:30 127 H 26 H 104/56 03/28/19 14:15 128 H 22 98/59 03/28/19 14:00 127 H 22 107/52 03/28/19 13:54 100 F H 03/28/19 13:45 131 H 20 122/52 03/28/19 13:30 128 H 17 126/56 03/28/19 13:15 128 H 16 125/54 03/28/19 13:00 127 H 15 123/59 03/28/19 12:45 126 H 14 144/63 03/28/19 12:30 127 H 15 130/60 03/28/19 12:15 124 H 14 135/60 03/28/19 12:00 126 H 15 125/56 03/28/19 11:45 126 H 17 127/56 03/28/19 11:30 124 H 18 127/55 Pulse Ox 03/29/19 09:00 03/29/19 08:33 100 03/29/19 08:30 98 03/29/19 08:15 99 03/29/19 08:00 99 03/29/19 07:45 100 03/29/19 07:30 99 03/29/19 07:15 98 03/29/19 07:00 98 03/29/19 06:45 98 03/29/19 06:30 99 03/29/19 06:15 99 03/29/19 06:00 98 03/29/19 05:45 98 03/29/19 05:30 99 03/29/19 05:15 99 03/29/19 05:00 98 03/29/19 04:45 97 03/29/19 04:30 97 03/29/19 04:15 03/29/19 04:00 95 03/29/19 03:45 96 03/29/19 03:30 96 03/29/19 03:15 95 03/29/19 03:00 95 03/29/19 02:45 93 03/29/19 02:43 03/29/19 02:30 93 03/29/19 02:15 93 03/29/19 02:00 94 03/29/19 01:45 98 03/29/19 01:30 97 03/29/19 01:15 98 03/29/19 01:00 03/29/19 00:45 98 03/29/19 00:30 98 03/29/19 00:15 97 03/29/19 00:00 99 03/28/19 23:52 100 03/28/19 23:45 97 03/28/19 23:40 100 03/28/19 23:30 98 03/28/19 23:15 99 03/28/19 23:00 98 03/28/19 22:45 98 03/28/19 22:30 99 03/28/19 22:15 98 03/28/19 22:00 100 03/28/19 21:45 98 03/28/19 21:30 99 03/28/19 21:15 99 03/28/19 21:00 99 03/28/19 20:45 99 03/28/19 20:30 100 03/28/19 20:15 99 03/28/19 20:00 98 03/28/19 19:58 03/28/19 19:45 97 03/28/19 19:30 97 03/28/19 19:25 100 03/28/19 19:15 98 03/28/19 19:00 100 03/28/19 18:45 99 03/28/19 18:30 99 03/28/19 18:15 99 03/28/19 18:00 99 03/28/19 17:45 100 03/28/19 17:30 99 03/28/19 17:15 98 03/28/19 17:00 99 03/28/19 16:45 99 03/28/19 16:30 100 03/28/19 16:15 99 03/28/19 16:00 99 03/28/19 15:45 100 03/28/19 15:30 100 03/28/19 15:15 100 03/28/19 15:11 100 03/28/19 15:00 100 03/28/19 14:45 100 03/28/19 14:40 03/28/19 14:30 98 03/28/19 14:15 99 03/28/19 14:00 100 03/28/19 13:54 03/28/19 13:45 99 03/28/19 13:30 99 03/28/19 13:15 98 03/28/19 13:00 98 03/28/19 12:45 98 03/28/19 12:30 98 03/28/19 12:15 98 03/28/19 12:00 98 03/28/19 11:45 98 03/28/19 11:30 97 - Physical Examination General: Other (intubated on the vent) Cardiac: Positive: Tachycardia - Labs and Meds Cardiac Enzymes 03/29/19 Range/Units 04:40 AST 23 (5-40) units/L Coagulation 03/28/19 03/29/19 Range/Units 14:30 04:40 APTT 70.3 H* 71.8 H* (24.2-36.6) Sec. CBC 03/29/19 Range/Units 04:40 WBC 10.4 (4.5-11.0) K/mm3 RBC 2.17 L (3.65-5.03) M/mm3 Hgb 7.1 L (10.1-14.3) gm/dl Hct 20.8 L (30.3-42.9) % Plt Count 122 L (140-440) K/mm3 Lymph # 2.1 (1.2-5.4) K/mm3 [place] # 0.7 (0.0-0.8) K/mm3 Eos # 0.3 (0.0-0.4) K/mm3 Baso # 0.1 (0.0-0.1) K/mm3 Comprehensive Metabolic Panel 03/29/19 Range/Units 04:40 Sodium 140 (137-145) mmol/L Potassium 3.7 (3.6-5.0) mmol/L Chloride 102.9 (98-107) mmol/L Carbon Dioxide 31 H (22-30) mmol/L BUN 22 H (7-17) mg/dL Creatinine 0.5 L (0.7-1.2) mg/dL Glucose 80 (65-100) mg/dL Calcium 8.0 L (8.4-10.2) mg/dL AST 23 (5-40) units/L ALT 9 (7-56) units/L Alkaline Phosphatase 103 (35-129) units/L Total Protein 5.0 L (6.3-8.2) g/dL Albumin 1.4 L (3.9-5) g/dL <CARITO QUIÑONES - Last Filed: 03/29/19 11:55> Assessment and Plan I have seen and evaluated the patient improved assessment and plan. Continue current medical therapy for treatment of paroxysmal atrial fibrillation. We'll stop digoxin as the patient's digoxin levels are high. Objective Vital Signs Temp Pulse Pulse Pulse Resp Resp BP 03/29/19 09:00 125 H 24 03/29/19 08:33 121 H 120/58 03/29/19 08:30 123 H 17 120/58 03/29/19 08:15 121 H 13 135/57 03/29/19 08:00 101.4 F H 121 H 125 H 17 130/58 03/29/19 07:45 124 H 18 135/56 03/29/19 07:30 122 H 20 134/58 03/29/19 07:15 123 H 16 131/60 03/29/19 07:00 124 H 17 130/62 03/29/19 06:45 123 H 15 135/56 03/29/19 06:30 121 H 21 129/58 03/29/19 06:15 123 H 20 127/59 03/29/19 06:00 122 H 15 128/56 03/29/19 05:45 123 H 16 133/56 03/29/19 05:30 123 H 15 144/61 03/29/19 05:15 120 H 16 136/60 03/29/19 05:00 123 H 17 142/63 03/29/19 04:45 123 H 15 135/67 03/29/19 04:30 123 H 13 124/58 03/29/19 04:15 124 H 13 112/58 03/29/19 04:00 100.1 F H 123 H 121 H 13 120/58 03/29/19 03:45 122 H 13 118/51 03/29/19 03:30 124 H 13 111/50 03/29/19 03:15 126 H 19 108/59 03/29/19 03:00 125 H 14 107/54 03/29/19 02:45 126 H 15 107/54 03/29/19 02:43 133 H 24 03/29/19 02:30 127 H 17 124/59 03/29/19 02:15 129 H 18 126/74 03/29/19 02:00 128 H 14 121/57 03/29/19 01:45 122 H 17 121/57 03/29/19 01:30 121 H 18 131/57 03/29/19 01:15 120 H 15 128/58 03/29/19 01:00 119 H 20 129/59 03/29/19 00:45 122 H 17 127/58 03/29/19 00:30 122 H 25 H 123/55 03/29/19 00:15 123 H 13 119/54 03/29/19 00:00 99.0 F 123 H 124 H 13 123/54 03/28/19 23:52 123 H 17 123/54 03/28/19 23:45 124 H 16 123/54 03/28/19 23:40 125 H 115/55 03/28/19 23:30 124 H 17 115/55 03/28/19 23:15 124 H 14 120/57 03/28/19 23:00 125 H 23 126/56 03/28/19 22:45 126 H 18 117/63 03/28/19 22:30 125 H 17 125/61 03/28/19 22:15 124 H 18 139/59 03/28/19 22:00 127 H 19 138/60 03/28/19 21:45 128 H 28 H 138/60 03/28/19 21:30 126 H 20 127/58 03/28/19 21:15 127 H 18 137/57 03/28/19 21:00 129 H 18 121/56 03/28/19 20:45 126 H 13 117/56 03/28/19 20:30 126 H 17 131/56 03/28/19 20:15 130 H 15 132/56 03/28/19 20:00 100.8 F H 131 H 131 H 13 124/61 03/28/19 19:58 130 H 24 03/28/19 19:45 132 H 18 114/54 03/28/19 19:30 132 H 17 129/54 03/28/19 19:25 127 H 115/52 03/28/19 19:15 130 H 15 115/52 03/28/19 19:00 128 H 23 114/54 03/28/19 18:45 129 H 22 114/54 03/28/19 18:30 130 H 16 115/46 03/28/19 18:15 129 H 14 107/56 03/28/19 18:00 130 H 18 100/55 03/28/19 17:45 127 H 20 95/45 03/28/19 17:30 130 H 22 111/51 03/28/19 17:15 131 H 17 115/58 03/28/19 17:00 128 H 21 115/56 03/28/19 16:45 128 H 17 116/53 03/28/19 16:30 128 H 15 101/53 03/28/19 16:15 129 H 16 105/48 03/28/19 16:00 99.5 F 129 H 16 126/42 03/28/19 15:45 128 H 17 109/52 03/28/19 15:30 128 H 17 108/53 03/28/19 15:15 129 H 16 115/61 03/28/19 15:11 128 H 115/61 03/28/19 15:00 126 H 18 118/61 03/28/19 14:45 126 H 43 H 118/61 03/28/19 14:40 139 H 21 03/28/19 14:30 127 H 26 H 104/56 03/28/19 14:15 128 H 22 98/59 03/28/19 14:00 127 H 22 107/52 03/28/19 13:54 100 F H 03/28/19 13:45 131 H 20 122/52 03/28/19 13:30 128 H 17 126/56 03/28/19 13:15 128 H 16 125/54 03/28/19 13:00 127 H 15 123/59 03/28/19 12:45 126 H 14 144/63 03/28/19 12:30 127 H 15 130/60 03/28/19 12:15 124 H 14 135/60 03/28/19 12:00 126 H 15 125/56 Pulse Ox 03/29/19 09:00 03/29/19 08:33 100 03/29/19 08:30 98 03/29/19 08:15 99 03/29/19 08:00 99 03/29/19 07:45 100 03/29/19 07:30 99 03/29/19 07:15 98 03/29/19 07:00 98 03/29/19 06:45 98 03/29/19 06:30 99 03/29/19 06:15 99 03/29/19 06:00 98 03/29/19 05:45 98 03/29/19 05:30 99 03/29/19 05:15 99 03/29/19 05:00 98 03/29/19 04:45 97 03/29/19 04:30 97 03/29/19 04:15 03/29/19 04:00 95 03/29/19 03:45 96 03/29/19 03:30 96 03/29/19 03:15 95 03/29/19 03:00 95 03/29/19 02:45 93 03/29/19 02:43 03/29/19 02:30 93 03/29/19 02:15 93 03/29/19 02:00 94 03/29/19 01:45 98 03/29/19 01:30 97 03/29/19 01:15 98 03/29/19 01:00 03/29/19 00:45 98 03/29/19 00:30 98 03/29/19 00:15 97 03/29/19 00:00 99 03/28/19 23:52 100 03/28/19 23:45 97 03/28/19 23:40 100 03/28/19 23:30 98 03/28/19 23:15 99 03/28/19 23:00 98 03/28/19 22:45 98 03/28/19 22:30 99 03/28/19 22:15 98 03/28/19 22:00 100 03/28/19 21:45 98 03/28/19 21:30 99 03/28/19 21:15 99 03/28/19 21:00 99 03/28/19 20:45 99 03/28/19 20:30 100 03/28/19 20:15 99 03/28/19 20:00 98 03/28/19 19:58 03/28/19 19:45 97 03/28/19 19:30 97 03/28/19 19:25 100 03/28/19 19:15 98 03/28/19 19:00 100 03/28/19 18:45 99 03/28/19 18:30 99 03/28/19 18:15 99 03/28/19 18:00 99 03/28/19 17:45 100 03/28/19 17:30 99 03/28/19 17:15 98 03/28/19 17:00 99 03/28/19 16:45 99 03/28/19 16:30 100 03/28/19 16:15 99 03/28/19 16:00 99 03/28/19 15:45 100 03/28/19 15:30 100 03/28/19 15:15 100 03/28/19 15:11 100 03/28/19 15:00 100 03/28/19 14:45 100 03/28/19 14:40 03/28/19 14:30 98 03/28/19 14:15 99 03/28/19 14:00 100 03/28/19 13:54 03/28/19 13:45 99 03/28/19 13:30 99 03/28/19 13:15 98 03/28/19 13:00 98 03/28/19 12:45 98 03/28/19 12:30 98 03/28/19 12:15 98 03/28/19 12:00 98 - Labs and Meds Cardiac Enzymes 03/29/19 Range/Units 04:40 AST 23 (5-40) units/L Coagulation 03/28/19 03/29/19 Range/Units 14:30 04:40 APTT 70.3 H* 71.8 H* (24.2-36.6) Sec. CBC 03/29/19 Range/Units 04:40 WBC 10.4 (4.5-11.0) K/mm3 RBC 2.17 L (3.65-5.03) M/mm3 Hgb 7.1 L (10.1-14.3) gm/dl Hct 20.8 L (30.3-42.9) % Plt Count 122 L (140-440) K/mm3 Lymph # 2.1 (1.2-5.4) K/mm3 [place] # 0.7 (0.0-0.8) K/mm3 Eos # 0.3 (0.0-0.4) K/mm3 Baso # 0.1 (0.0-0.1) K/mm3 Comprehensive Metabolic Panel 03/29/19 Range/Units 04:40 Sodium 140 (137-145) mmol/L Potassium 3.7 (3.6-5.0) mmol/L Chloride 102.9 (98-107) mmol/L Carbon Dioxide 31 H (22-30) mmol/L BUN 22 H (7-17) mg/dL Creatinine 0.5 L (0.7-1.2) mg/dL Glucose 80 (65-100) mg/dL Calcium 8.0 L (8.4-10.2) mg/dL AST 23 (5-40) units/L ALT 9 (7-56) units/L Alkaline Phosphatase 103 (35-129) units/L Total Protein 5.0 L (6.3-8.2) g/dL Albumin 1.4 L (3.9-5) g/dL
--- NOTE | 2019-03-29 11:34 | Progress Note ---
Assessment and Plan Assessment and plan: --Acute hypoxic respiratory Failure intubated : Vent dependent Pulm cr care following, if unable to wean,patient may need trach and PEG --Brief episode of Hypotension: improved with fluid bolus, closely monitor --Digoxin toxicity;supratherapeutic level monitor levels and resume when appropriate --Acute Right common femoral DVT and right IJ vein thrombosis place on argatroban drip, consult vascular --Acute metabolic encephalopathy, cont supportive care, CT head negative --Sepsis due to aspiration pneumonia; Continue current antibiotics follow cultures --Septic shock: off pressor, weaned off, BP now stable --Paroxysmal Atrial fib, Now NSR on amioderone,metoprolol digoxin held Started low dose metoprolol --HA (acute kidney injury), atn and vasomotor nephrology, poa: Resolved Nephrology consulted renal function improved --Anemia, due to CD vs other cause Monitor H&H and transfuse additional as needed --RUL Aspiration pneumonia:on Merropenem --Hypernatremia: improved with Iv fluid --Hypomagnesemia: replete and follow as needed --Elevated troponin level/ NSTEMI II; Cardiology following --DVT prophylaxis --full code Disposition; wean as tolerated and extubated If unable to wean may need trach and PEG Hospice evaluation CCT 33 minutes History Interval history: Patient seen and examined patient's chart reviewed Remains intubated on ventilatory support Hypotensive, not in acute distress Vital signs noted, Patient has intermittent fever MAXIMUM TEMPERATURE last 24 hours 101.4F Patient is alert and awake, making eye contact Hospitalist Physical - Constitutional Vitals: Temp Pulse Resp BP Pulse Ox 101.4 F H 125 H 24 120/58 100 03/29/19 08:00 03/29/19 09:00 03/29/19 09:00 03/29/19 08:33 03/29/19 08:33 General appearance: Present: no acute distress, well-nourished, other (intubated on vent) - EENT Eyes: Present: PERRL, EOM intact - Neck Neck: Present: supple, normal ROM - Respiratory Respiratory effort: normal Respiratory: bilateral: diminished, rhonchi, negative: rales, wheezing - Cardiovascular Rhythm: regular Heart Sounds: Present: S1 & S2 (tachycardia) - Extremities Extremities: no ischemia, No edema - Abdominal General gastrointestinal: soft, non-tender, non-distended, normal bowel sounds - Integumentary Integumentary: Present: clear, warm - Psychiatric Psychiatric: other (intubated on vent) - Neurologic Neurologic: other ( noncommunicative) Results - Labs CBC & Chem 7: 03/29/19 04:40 03/29/19 04:40 Labs: Laboratory Last Values WBC 10.4 K/mm3 (4.5-11.0) 03/29/19 04:40 RBC 2.17 M/mm3 (3.65-5.03) L 03/29/19 04:40 Hgb 7.1 gm/dl (10.1-14.3) L 03/29/19 04:40 Hct 20.8 % (30.3-42.9) L 03/29/19 04:40 MCV 96 fl (79-97) 03/29/19 04:40 MCH 33 pg (28-32) H 03/29/19 04:40 MCHC 34 % (30-34) 03/29/19 04:40 RDW 17.1 % (13.2-15.2) H 03/29/19 04:40 Plt Count 122 K/mm3 (140-440) L 03/29/19 04:40 Lymph % (Auto) 20.2 % (13.4-35.0) 03/29/19 04:40 [place] % (Auto) 7.1 % (0.0-7.3) 03/29/19 04:40 Eos % (Auto) 2.8 % (0.0-4.3) 03/29/19 04:40 Baso % (Auto) 0.6 % (0.0-1.8) 03/29/19 04:40 Lymph # 2.1 K/mm3 (1.2-5.4) 03/29/19 04:40 [place] # 0.7 K/mm3 (0.0-0.8) 03/29/19 04:40 Eos # 0.3 K/mm3 (0.0-0.4) 03/29/19 04:40 Baso # 0.1 K/mm3 (0.0-0.1) 03/29/19 04:40 Add Manual Diff Complete 03/28/19 01:05 Total Counted 100 03/28/19 01:05 Seg Neutrophils % 69.3 % (40.0-70.0) 03/29/19 04:40 Seg Neuts % (Manual) 84.0 % (40.0-70.0) H 03/28/19 01:05 0 % 03/28/19 01:05 10.0 % (13.4-35.0) L 03/28/19 01:05 Reactive Lymphs % (Man) 0 % 03/28/19 01:05 3.0 % (0.0-7.3) 03/28/19 01:05 2.0 % (0.0-4.3) 03/28/19 01:05 1.0 % (0.0-1.8) 03/28/19 01:05 0 % 03/28/19 01:05 0 % 03/28/19 01:05 0 % 03/28/19 01:05 0 % 03/28/19 01:05 Nucleated RBC % Not Reportable 03/28/19 01:05 Seg Neutrophils # 7.2 K/mm3 (1.8-7.7) 03/29/19 04:40 Seg Neutrophils # Man 12.1 K/mm3 (1.8-7.7) H 03/28/19 01:05 Band Neutrophils # 0.0 K/mm3 03/28/19 01:05 1.4 K/mm3 (1.2-5.4) 03/28/19 01:05 Abs React Lymphs (Man) 0.0 K/mm3 03/28/19 01:05 0.4 K/mm3 (0.0-0.8) 03/28/19 01:05 0.3 K/mm3 (0.0-0.4) 03/28/19 01:05 0.1 K/mm3 (0.0-0.1) 03/28/19 01:05 0.0 K/mm3 03/28/19 01:05 0.0 K/mm3 03/28/19 01:05 0.0 K/mm3 03/28/19 01:05 Blast Cells # 0.0 K/mm3 03/28/19 01:05 WBC Morphology Not Reportable 03/28/19 01:05 Hypersegmented Neuts Not Reportable 03/28/19 01:05 Hyposegmented Neuts Not Reportable 03/28/19 01:05 Hypogranular Neuts Not Reportable 03/28/19 01:05 Not Reportable 03/28/19 01:05 Not Reportable 03/28/19 01:05 Not Reportable 03/28/19 01:05 Not Reportable 03/28/19 01:05 Not Reportable 03/28/19 01:05 Not Reportable 03/28/19 01:05 Not Reportable 03/28/19 01:05 Not Reportable 03/28/19 01:05 Plt Clumps, EDTA Not Reportable 03/28/19 01:05 Not Reportable 03/28/19 01:05 Not Reportable 03/28/19 01:05 Not Reportable 03/28/19 01:05 Plt Morphology Comment Not Reportable 03/28/19 01:05 RBC Morphology Normal 03/28/19 01:05 Dimorphic RBCs Not Reportable 03/28/19 01:05 Not Reportable 03/28/19 01:05 Not Reportable 03/28/19 01:05 Not Reportable 03/28/19 01:05 Not Reportable 03/28/19 01:05 Not Reportable 03/28/19 01:05 Not Reportable 03/28/19 01:05 Not Reportable 03/28/19 01:05 Not Reportable 03/28/19 01:05 Not Reportable 03/28/19 01:05 Not Reportable 03/28/19 01:05 Not Reportable 03/28/19 01:05 Not Reportable 03/28/19 01:05 Not Reportable 03/28/19 01:05 Not Reportable 03/28/19 01:05 Not Reportable 03/28/19 01:05 Not Reportable 03/28/19 01:05 Not Reportable 03/28/19 01:05 Not Reportable 03/28/19 01:05 Not Reportable 03/28/19 01:05 Acanthocytes (Spur) Not Reportable 03/28/19 01:05 Rouleaux Not Reportable 03/28/19 01:05 Not Reportable 03/28/19 01:05 Not Reportable 03/28/19 01:05 Not Reportable 03/28/19 01:05 Not Reportable 03/28/19 01:05 Hem Pathologist Commnt No 03/28/19 01:05 PT 21.4 Sec. (12.2-14.9) H 03/27/19 14:04 INR 1.90 (0.87-1.13) H 03/27/19 14:04 APTT 71.8 Sec. (24.2-36.6) H* 03/29/19 04:40 POC ABG pH 7.411 (7.35-7.45) 03/25/19 05:40 POC ABG pCO2 33.3 (35-45) L 03/23/19 05:25 POC ABG pO2 83 (80-105) 03/25/19 05:40 POC ABG HCO3 17.7 (22-26 mml/L) 03/25/19 05:40 POC ABG Total CO2 19 (23-27mmol/L) 03/25/19 05:40 POC ABG O2 Sat 97 03/25/19 05:40 POC ABG Base Excess -7 ((-2) - (+3)mmol/L) 03/25/19 05:40 30 % 03/25/19 05:40 Sodium 140 mmol/L (137-145) 03/29/19 04:40 Potassium 3.7 mmol/L (3.6-5.0) 03/29/19 04:40 Chloride 102.9 mmol/L (98-107) 03/29/19 04:40 Carbon Dioxide 31 mmol/L (22-30) H 03/29/19 04:40 10 mmol/L 03/29/19 04:40 BUN 22 mg/dL (7-17) H 03/29/19 04:40 0.5 mg/dL (0.7-1.2) L 03/29/19 04:40 Estimated GFR > 60 ml/min 03/29/19 04:40 44 % 03/29/19 04:40 Glucose 80 mg/dL (65-100) 03/29/19 04:40 POC Glucose 87 (70-105) 03/29/19 00:29 4.2 % (4-6) 03/20/19 08:23 Lactic Acid 2.00 mmol/L (0.7-2.0) 03/23/19 04:50 Calcium 8.0 mg/dL (8.4-10.2) L 03/29/19 04:40 Phosphorus 2.00 mg/dL (2.5-4.5) L 03/20/19 17:50 Magnesium 1.70 mg/dL (1.7-2.3) 03/21/19 04:12 Iron 32 ug/dL (37-170) L 03/24/19 14:25 TIBC 75 mcg/dL (250-450) L 03/24/19 14:25 448.3 ng/mL (13.0-400.0) H 03/28/19 07:31 0.50 mg/dL (0.1-1.2) 03/29/19 04:40 0.3 mg/dL (0-0.2) H 03/27/19 13:31 0.2 mg/dL 03/27/19 13:31 AST 23 units/L (5-40) 03/29/19 04:40 ALT 9 units/L (7-56) 03/29/19 04:40 103 units/L (35-129) 03/29/19 04:40 1499 units/L (30-135) H 03/19/19 12:59 0.036 ng/mL (0.00-0.029) H 03/22/19 06:10 5.0 g/dL (6.3-8.2) L 03/29/19 04:40 1.4 g/dL (3.9-5) L 03/29/19 04:40 0.4 % 03/29/19 04:40 0.052 g/L (0.200-0.400) L 03/20/19 08:23 Triglycerides 72 mg/dL (2-149) 03/19/19 12:59 Cholesterol 61 mg/dL (50-199) 03/19/19 12:59 22 mg/dL (50-130) L 03/19/19 12:59 31 mg/dL (40-59) L 03/19/19 12:59 1.96 % 03/19/19 12:59 Vitamin B12 > 2000 pg/mL (211-911) H 03/25/19 10:11 18.61 ng/mL (7.3-26.0) 03/28/19 07:31 TSH 7.810 mlU/mL (0.270-4.200) H 03/22/19 06:10 Free T4 1.21 ng/dL (0.76-1.46) 03/22/19 06:10 PTH Intact 171.6 pg/mL (15-65) H 03/20/19 17:50 Yellow (Yellow) 03/19/19 12:47 Clear (Clear) 03/19/19 12:47 5.0 (5.0-7.0) 03/19/19 12:47 Ur Specific [place] 1.010 (1.003-1.030) 03/19/19 12:47 <15 mg/dl mg/dL (Negative) 03/19/19 12:47 50 mg/dL (Negative) 03/19/19 12:47 Neg mg/dL (Negative) 03/19/19 12:47 Lg (Negative) 03/19/19 12:47 Neg (Negative) 03/19/19 12:47 Neg (Negative) 03/19/19 12:47 < 2.0 mg/dL (<2.0) 03/19/19 12:47 Ur Leukocyte Esterase Neg (Negative) 03/19/19 12:47 2.0 /HPF (0.0-6.0) 03/19/19 12:47 2.0 /HPF (0.0-6.0) 03/19/19 12:47 U Epithel Cells (Auto) 1.0 /HPF (0-13.0) 03/19/19 12:47 1+ /HPF (Negative) 03/19/19 12:47 Hyaline Casts 3 /LPF 03/19/19 12:47 Few /HPF 03/19/19 12:47 None seen (None Seen) 03/20/19 16:40 53.7 mg/dL (0.1-20.0) H 03/20/19 16:40 3.8 mg/dL (0.1-34.0) 03/20/19 16:40 Microalb/Creat Ratio 70.7 ug/mg 03/20/19 16:40 116 mmol/L 03/20/19 16:40 36 mg/dL (5-11.8) H 03/20/19 16:40 Vancomycin Trough 23.0 ug/mL (5.0-20.0) H 03/27/19 09:04 Digoxin 3.5 ng/mL (0.9-2.0) H* 03/29/19 04:40 Salicylates < 0.3 mg/dL (2.8-20.0) L 03/19/19 12:59 Acetaminophen < 5.0 ug/mL (10.0-30.0) L 03/19/19 12:59 Blood Type O POSITIVE 03/24/19 11:30 Antibody Screen Negative 03/24/19 11:30 Crossmatch See Detail 03/24/19 11:30 Active Medications - Current Medications Current Medications: Generic Name Dose Route Start Last Admin Trade Name Freq PRN Reason Stop Dose Admin Acetaminophen 650 mg 03/24/19 23:48 03/29/19 08:55 Tylenol FEEDTUBE 650 mg Q6H PRN Administration Fever >101 Albuterol 2.5 mg 03/19/19 23:58 Proventil IH Q3HRT PRN Shortness Of Breath Albuterol/Ipratropium 1 ampul 03/20/19 02:00 03/29/19 08:42 Duoneb *Not For Prn Use* IH 1 ampul Q6HRT YUSUF Administration Amiodarone HCl 200 mg 03/22/19 22:00 03/29/19 10:32 Cordarone PO 200 mg BID YUSUF Administration Lipase/Protease/Amylase 1 each 03/22/19 16:03 Pancretobi Sargent 10,500 Unit FEEDTUBE PRN PRN For Clogged Feeding Tube Aspirin 81 mg 03/21/19 10:00 03/29/19 10:32 Baby Aspirin PO 81 mg DAILY YUSUF Administration Budesonide 0.5 mg 03/19/19 23:45 03/29/19 08:42 Pulmicort IH 0.5 mg Q12HRT YUSUF Administration Dextrose 50 ml 03/19/19 23:58 03/21/19 16:29 D50w (25gm) Syringe IV 50 ml PRN PRN Administration Hypoglycemia Famotidine 20 mg 03/22/19 10:00 03/29/19 10:33 Pepcid PO 20 mg BID YUSUF Administration Fentanyl 50 mcg 03/19/19 12:45 03/19/19 13:26 Sublimaze IV 50 mcg Q10MIN PRN Administration ANALGESIA Hydromorphone HCl 0.5 mg 03/19/19 23:58 Dilaudid IV Q3H PRN Pain , Severe (7-10) Hydrophilic Ointment 1 applic 03/19/19 12:45 Vaseline Lip Therapy TP Q2HR PRN Dry Lips Fentanyl Citrate 2,000 mcg in 100 mls @ 2.835 mls/hr 03/19/19 14:00 03/21/19 11:33 Fentanyl Drip Premix IV 0 mcg/kg/hr TITR YUSUF 0 mls/hr Titration Protocol 1 MCG/KG/HR Norepinephrine 4 mg in 250 mls @ 7.5 mls/hr 03/25/19 11:00 03/28/19 08:45 Levophed Drip 4 Mg/Ns 250 Ml IV 0 mcg/min TITR YUSUF 0 mls/hr Titration Protocol 2 MCG/MIN Meropenem 1,000 mg/ Sodium 100 mls @ 100 mls/hr 03/26/19 15:00 03/29/19 05:32 Chloride IV 100 mls/hr Q8HR YUSUF Administration Protocol Argatroban 250 mg/ Sodium 250 mls @ 1.863 mls/hr 03/27/19 14:00 03/29/19 05:18 Chloride IV 0.5 mcg/kg/min TITR YUSUF 1.863 mls/hr Titration Protocol 0.5 MCG/KG/MIN Insulin Human Lispro 0 unit 03/20/19 00:00 03/29/19 05:32 Humalog SUB-Q Not Given Q6HR YUSUF Protocol Metoclopramide HCl 5 mg 03/20/19 00:12 Reglan IV Q6H PRN Nausea And Vomiting Metoprolol Tartrate 2.5 mg 03/23/19 13:17 03/24/19 21:20 Lopressor IV 2.5 mg Q2HR PRN Administration HR >150 Multi-Ingred Cream/Lotion/Oil/Oint 1 applic 03/19/19 12:45 Artificial Tears Ophth Oint OU Q4HR PRN Dry Eye(s) Ondansetron HCl 4 mg 03/19/19 23:58 Zofran IV Q8H PRN Nausea And Vomiting Promethazine HCl 25 mg 03/19/19 23:58 Phenergan CO Q6H PRN N/V IF NPO AND NO IV ACCESS Simple Syrup 15 ml 03/22/19 16:03 03/23/19 07:21 Simple Syrup FEEDTUBE 15 ml PRN PRN Administration Hypoglycemia Simple Syrup 30 ml 03/22/19 16:03 Simple Syrup FEEDTUBE PRN PRN Hypoglycemia Sodium Bicarbonate 325 mg 03/22/19 16:03 Sodium Bicarbonate FEEDTUBE PRN PRN For Clogged Feeding Tube Sodium Chloride 10 ml 03/20/19 10:00 03/29/19 10:33 Sodium Chloride Flush Syringe 10 Ml IV 10 ml BID YUSUF Administration Sodium Chloride 10 ml 03/19/19 23:58 Sodium Chloride Flush Syringe 10 Ml IV PRN PRN LINE FLUSH Nutrition/Malnutrition Assess - Dietary Evaluation Nutrition/Malnutrition Findings: Nutrition Notes Start: 03/20/19 15:29 Freq: Status: Active Protocol: Document 03/24/19 15:45 RM (Rec: 03/24/19 15:47 RM [id number]) Nutrition Notes Initial or Follow up Reassessment Other Pertinent Diagnosis Hx CVA, dementia, R buttock skin tear Current Diet Vital 1.2 at 45 ml/hr Labs/Tests Reviewed Pertinent Medications Reviewed Height 5 ft 5 in Weight 62.1 kg [place] Body Weight (kg) 56.81 BMI 22.8 Subjective/Other Information Observed Vital 1.2 infusing at goal rate. Per nurse is pt tolerating TF. Percent of energy/protein needs met: 95%/100% Burn Absent Trauma Absent #1 Nutrition Diagnosis Inadequate oral intake Diagnosis Progress(for reassessment Continues documentation) Is patient on ventilator? Yes Is Patient Ambulatory and/or Out of Bed No REE-([facility]-confined to bed) 1370.316 Calculation Used for Recommendations [facility] Additional Notes Protein Needs: 75-124g (1.2-2g /kg) Fluid Needs: 1 ml/kcal Nutrition Intervention Nutrition Support: Vital 1.2 at 45 ml/hr Water flush of 100 mls 4 q hrs Kcal 1,296 Protein (gm) 81 Fluid (mL) 876 Goal #1 TF tolerance Goal #2 Continue to meet at least 80% of calorie and protein needs via TF Anticipated Discharge Needs: Unable to determine at this time Follow-Up By: 03/31/19 Additional Comments Follow for TF tolerance
--- NOTE | 2019-03-29 12:25 | Progress Note ---
Assessment and Plan 73 y/o female found unresponsive now intubated and septic, etiology thought secondary to pneumonia with anemia and thrombocytopenia, and persistent fevers found to have multiple DVT's. 1. Continue argatroban therapy until otherwise told differently by heme. Agree with HIT work up as we do not know her exposure on the outside. 2. Continue IV abx therapy as per ID 3. Long discussion with daughter Caterina over the phone. 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 Patient was on home hospice not for a terminal illness (seizures) but the daughter needed more help which she could not get from any other services. The patient has essentially been bed bound for the last several years but this is the sickest she has been since the strokes. CCT 31 minutes. Subjective Date of service: 03/29/19 Principal diagnosis: low plt - DVT Interval history: No acute events. Awake. follows commands. not at bedside. Objective Vital Signs - 12hr 03/29/19 03/29/19 03/29/19 00:30 00:45 01:00 Temperature Pulse Rate 122 H 122 H 119 H Pulse Rate [ Anterior Bilateral Throughout] Pulse Rate [ From Monitor] Respiratory 25 H 17 20 Rate Respiratory Rate [Anterior Bilateral Throughout] Blood Pressure 123/55 127/58 129/59 O2 Sat by Pulse 98 98 Oximetry 03/29/19 03/29/19 03/29/19 01:15 01:30 01:45 Temperature Pulse Rate 120 H 121 H 122 H Pulse Rate [ Anterior Bilateral Throughout] Pulse Rate [ From Monitor] Respiratory 15 18 17 Rate Respiratory Rate [Anterior Bilateral Throughout] Blood Pressure 128/58 131/57 121/57 O2 Sat by Pulse 98 97 98 Oximetry 03/29/19 03/29/19 03/29/19 02:00 02:15 02:30 Temperature Pulse Rate 128 H 129 H 127 H Pulse Rate [ Anterior Bilateral Throughout] Pulse Rate [ From Monitor] Respiratory 14 18 17 Rate Respiratory Rate [Anterior Bilateral Throughout] Blood Pressure 121/57 126/74 124/59 O2 Sat by Pulse 94 93 93 Oximetry 03/29/19 03/29/19 03/29/19 02:43 02:45 03:00 Temperature Pulse Rate 126 H 125 H Pulse Rate [ 133 H Anterior Bilateral Throughout] Pulse Rate [ From Monitor] Respiratory 15 14 Rate Respiratory 24 Rate [Anterior Bilateral Throughout] Blood Pressure 107/54 107/54 O2 Sat by Pulse 93 95 Oximetry 03/29/19 03/29/19 03/29/19 03:15 03:30 03:45 Temperature Pulse Rate 126 H 124 H 122 H Pulse Rate [ Anterior Bilateral Throughout] Pulse Rate [ From Monitor] Respiratory 19 13 13 Rate Respiratory Rate [Anterior Bilateral Throughout] Blood Pressure 108/59 111/50 118/51 O2 Sat by Pulse 95 96 96 Oximetry 03/29/19 03/29/19 03/29/19 04:00 04:15 04:30 Temperature 100.1 F H Pulse Rate 123 H 124 H 123 H Pulse Rate [ Anterior Bilateral Throughout] Pulse Rate [ 121 H From Monitor] Respiratory 13 13 13 Rate Respiratory Rate [Anterior Bilateral Throughout] Blood Pressure 120/58 112/58 124/58 O2 Sat by Pulse 95 97 Oximetry 03/29/19 03/29/19 03/29/19 04:45 05:00 05:15 Temperature Pulse Rate 123 H 123 H 120 H Pulse Rate [ Anterior Bilateral Throughout] Pulse Rate [ From Monitor] Respiratory 15 17 16 Rate Respiratory Rate [Anterior Bilateral Throughout] Blood Pressure 135/67 142/63 136/60 O2 Sat by Pulse 97 98 99 Oximetry 03/29/19 03/29/19 03/29/19 05:30 05:45 06:00 Temperature Pulse Rate 123 H 123 H 122 H Pulse Rate [ Anterior Bilateral Throughout] Pulse Rate [ From Monitor] Respiratory 15 16 15 Rate Respiratory Rate [Anterior Bilateral Throughout] Blood Pressure 144/61 133/56 128/56 O2 Sat by Pulse 99 98 98 Oximetry 03/29/19 03/29/19 03/29/19 06:15 06:30 06:45 Temperature Pulse Rate 123 H 121 H 123 H Pulse Rate [ Anterior Bilateral Throughout] Pulse Rate [ From Monitor] Respiratory 20 21 15 Rate Respiratory Rate [Anterior Bilateral Throughout] Blood Pressure 127/59 129/58 135/56 O2 Sat by Pulse 99 99 98 Oximetry 03/29/19 03/29/19 03/29/19 07:00 07:15 07:30 Temperature Pulse Rate 124 H 123 H 122 H Pulse Rate [ Anterior Bilateral Throughout] Pulse Rate [ From Monitor] Respiratory 17 16 20 Rate Respiratory Rate [Anterior Bilateral Throughout] Blood Pressure 130/62 131/60 134/58 O2 Sat by Pulse 98 98 99 Oximetry 03/29/19 03/29/19 03/29/19 07:45 08:00 08:15 Temperature 101.4 F H Pulse Rate 124 H 121 H 121 H Pulse Rate [ Anterior Bilateral Throughout] Pulse Rate [ 125 H From Monitor] Respiratory 18 17 13 Rate Respiratory Rate [Anterior Bilateral Throughout] Blood Pressure 135/56 130/58 135/57 O2 Sat by Pulse 100 99 99 Oximetry 03/29/19 03/29/19 03/29/19 08:30 08:33 09:00 Temperature Pulse Rate 123 H 121 H Pulse Rate [ 125 H Anterior Bilateral Throughout] Pulse Rate [ From Monitor] Respiratory 17 Rate Respiratory 24 Rate [Anterior Bilateral Throughout] Blood Pressure 120/58 120/58 O2 Sat by Pulse 98 100 Oximetry 03/29/19 12:00 Temperature 100.7 F H Pulse Rate 120 H Pulse Rate [ Anterior Bilateral Throughout] Pulse Rate [ From Monitor] Respiratory Rate Respiratory Rate [Anterior Bilateral Throughout] Blood Pressure 130/64 O2 Sat by Pulse 100 Oximetry Constitutional: lethargic, other (intubated on vent responds to name. follows commands) Eyes: non-icteric ENT: other (intubated ) Neck: supple Effort: mildly labored, other (poor efforts ) Ascultation: Bilateral: diminished breath sounds (grossly clear ), rales (coarse bilat ) Percussion: Bilateral: not dull, dull Cardiovascular: other (tachy AF ) Gastrointestinal: hypoactive bowel sounds Integumentary: normal Extremities: anasarca Neurologic: unable to assess CBC and BMP: 03/29/19 04:40 03/29/19 04:40 ABG, PT/INR, D-dimer: ABG POC ABG pH 7.411 (7.35-7.45) 03/25/19 05:40 POC ABG pO2 83 (80-105) 03/25/19 05:40 POC ABG HCO3 17.7 (22-26 mml/L) 03/25/19 05:40 POC ABG Total CO2 19 (23-27mmol/L) 03/25/19 05:40 POC ABG O2 Sat 97 03/25/19 05:40 PT/INR, D-dimer PT 21.4 Sec. (12.2-14.9) H 03/27/19 14:04 INR 1.90 (0.87-1.13) H 03/27/19 14:04 Abnormal lab findings: Abnormal Labs 03/19/19 03/19/19 03/19/19 12:59 12:59 12:59 WBC RBC 3.44 L Hgb Hct MCV 101 H MCH 34 H MCHC RDW Plt Count 98 L Lymph % (Auto) [place] % (Auto) Lymph # [place] # Seg Neutrophils % Seg Neuts % (Manual) 11.0 L Lymphocytes % (Manual) Monocytes % (Manual) 10.0 H Eosinophils % (Manual) Nucleated RBC % 1.0 H Seg Neutrophils # Seg Neutrophils # Man 0.6 L Lymphocytes # (Manual) Monocytes # (Manual) Eosinophils # (Manual) PT INR APTT POC ABG pH POC ABG pCO2 POC ABG pO2 Sodium 149 H Potassium Chloride 109.4 H Carbon Dioxide BUN 51 H Creatinine 3.2 H Glucose 58 L POC Glucose Lactic Acid 7.60 H* Calcium 7.8 L Phosphorus Magnesium 1.60 L Iron TIBC Ferritin Direct Bilirubin AST 75 H Total Creatine Kinase 1499 H Troponin T 0.109 H* Total Protein 5.2 L Albumin 1.7 L Prealbumin LDL Cholesterol Direct 22 L HDL Cholesterol 31 L Vitamin B12 TSH PTH Intact Urine Creatinine Urine Total Protein Vancomycin Trough Digoxin Salicylates Acetaminophen Crossmatch 03/19/19 03/19/19 03/19/19 12:59 12:59 14:48 WBC RBC Hgb Hct MCV MCH MCHC RDW Plt Count Lymph % (Auto) [place] % (Auto) Lymph # [place] # Seg Neutrophils % Seg Neuts % (Manual) Lymphocytes % (Manual) Monocytes % (Manual) Eosinophils % (Manual) Nucleated RBC % Seg Neutrophils # Seg Neutrophils # Man Lymphocytes # (Manual) Monocytes # (Manual) Eosinophils # (Manual) PT INR APTT POC ABG pH POC ABG pCO2 POC ABG pO2 Sodium Potassium Chloride Carbon Dioxide BUN Creatinine Glucose POC Glucose 44 L Lactic Acid Calcium Phosphorus Magnesium Iron TIBC Ferritin Direct Bilirubin AST Total Creatine Kinase Troponin T Total Protein Albumin Prealbumin LDL Cholesterol Direct HDL Cholesterol Vitamin B12 TSH PTH Intact Urine Creatinine Urine Total Protein Vancomycin Trough Digoxin Salicylates < 0.3 L Acetaminophen < 5.0 L Crossmatch 03/19/19 03/19/19 03/19/19 15:33 15:52 16:26 WBC RBC Hgb Hct MCV MCH MCHC RDW Plt Count Lymph % (Auto) [place] % (Auto) Lymph # [place] # Seg Neutrophils % Seg Neuts % (Manual) Lymphocytes % (Manual) Monocytes % (Manual) Eosinophils % (Manual) Nucleated RBC % Seg Neutrophils # Seg Neutrophils # Man Lymphocytes # (Manual) Monocytes # (Manual) Eosinophils # (Manual) PT INR APTT POC ABG pH POC ABG pCO2 POC ABG pO2 Sodium Potassium Chloride Carbon Dioxide BUN Creatinine Glucose POC Glucose 228 H 231 H Lactic Acid Calcium Phosphorus Magnesium Iron TIBC Ferritin Direct Bilirubin AST Total Creatine Kinase Troponin T Total Protein Albumin Prealbumin LDL Cholesterol Direct HDL Cholesterol Vitamin B12 TSH PTH Intact Urine Creatinine 31.8 H Urine Total Protein Vancomycin Trough Digoxin Salicylates Acetaminophen Crossmatch 03/19/19 03/19/19 03/19/19 16:38 17:14 18:43 WBC RBC Hgb Hct MCV MCH MCHC RDW Plt Count Lymph % (Auto) [place] % (Auto) Lymph # [place] # Seg Neutrophils % Seg Neuts % (Manual) Lymphocytes % (Manual) Monocytes % (Manual) Eosinophils % (Manual) Nucleated RBC % Seg Neutrophils # Seg Neutrophils # Man Lymphocytes # (Manual) Monocytes # (Manual) Eosinophils # (Manual) PT INR APTT POC ABG pH 7.196 L POC ABG pCO2 30.8 L POC ABG pO2 Sodium Potassium Chloride Carbon Dioxide BUN Creatinine Glucose POC Glucose 235 H Lactic Acid 8.10 H* Calcium Phosphorus Magnesium Iron TIBC Ferritin Direct Bilirubin AST Total Creatine Kinase Troponin T Total Protein Albumin Prealbumin LDL Cholesterol Direct HDL Cholesterol Vitamin B12 TSH PTH Intact Urine Creatinine Urine Total Protein Vancomycin Trough Digoxin Salicylates Acetaminophen Crossmatch 03/19/19 03/19/19 03/19/19 18:52 20:00 20:56 WBC RBC Hgb Hct MCV MCH MCHC RDW Plt Count Lymph % (Auto) [place] % (Auto) Lymph # [place] # Seg Neutrophils % Seg Neuts % (Manual) Lymphocytes % (Manual) Monocytes % (Manual) Eosinophils % (Manual) Nucleated RBC % Seg Neutrophils # Seg Neutrophils # Man Lymphocytes # (Manual) Monocytes # (Manual) Eosinophils # (Manual) PT INR APTT POC ABG pH POC ABG pCO2 POC ABG pO2 Sodium Potassium Chloride Carbon Dioxide BUN Creatinine Glucose POC Glucose 240 H 117 H Lactic Acid 5.90 H* Calcium Phosphorus Magnesium Iron TIBC Ferritin Direct Bilirubin AST Total Creatine Kinase Troponin T Total Protein Albumin Prealbumin LDL Cholesterol Direct HDL Cholesterol Vitamin B12 TSH PTH Intact Urine Creatinine Urine Total Protein Vancomycin Trough Digoxin Salicylates Acetaminophen Crossmatch 03/19/19 03/19/1919 21:19 22:07 23:00 WBC RBC Hgb Hct MCV MCH MCHC RDW Plt Count Lymph % (Auto) [place] % (Auto) Lymph # [place] # Seg Neutrophils % Seg Neuts % (Manual) Lymphocytes % (Manual) Monocytes % (Manual) Eosinophils % (Manual) Nucleated RBC % Seg Neutrophils # Seg Neutrophils # Man Lymphocytes # (Manual) Monocytes # (Manual) Eosinophils # (Manual) PT INR APTT POC ABG pH POC ABG pCO2 POC ABG pO2 Sodium Potassium Chloride Carbon Dioxide BUN Creatinine Glucose POC Glucose < 40 L 136 H Lactic Acid 6.10 H* Calcium Phosphorus Magnesium Iron TIBC Ferritin Direct Bilirubin AST Total Creatine Kinase Troponin T Total Protein Albumin Prealbumin LDL Cholesterol Direct HDL Cholesterol Vitamin B12 TSH PTH Intact Urine Creatinine Urine Total Protein Vancomycin Trough Digoxin Salicylates Acetaminophen Crossmatch 03/20/19 03/20/19 03/20/19 00:05 01:38 02:23 WBC RBC Hgb Hct MCV MCH MCHC RDW Plt Count Lymph % (Auto) [place] % (Auto) Lymph # [place] # Seg Neutrophils % Seg Neuts % (Manual) Lymphocytes % (Manual) Monocytes % (Manual) Eosinophils % (Manual) Nucleated RBC % Seg Neutrophils # Seg Neutrophils # Man Lymphocytes # (Manual) Monocytes # (Manual) Eosinophils # (Manual) PT INR APTT POC ABG pH POC ABG pCO2 POC ABG pO2 Sodium Potassium Chloride Carbon Dioxide BUN Creatinine Glucose POC Glucose 68 L 153 H 127 H Lactic Acid Calcium Phosphorus Magnesium Iron TIBC Ferritin Direct Bilirubin AST Total Creatine Kinase Troponin T Total Protein Albumin Prealbumin LDL Cholesterol Direct HDL Cholesterol Vitamin B12 TSH PTH Intact Urine Creatinine Urine Total Protein Vancomycin Trough Digoxin Salicylates Acetaminophen Crossmatch 03/20/19 03/20/19 03/20/19 03:12 04:31 04:41 WBC RBC Hgb Hct MCV MCH MCHC RDW Plt Count Lymph % (Auto) [place] % (Auto) Lymph # [place] # Seg Neutrophils % Seg Neuts % (Manual) Lymphocytes % (Manual) Monocytes % (Manual) Eosinophils % (Manual) Nucleated RBC % Seg Neutrophils # Seg Neutrophils # Man Lymphocytes # (Manual) Monocytes # (Manual) Eosinophils # (Manual) PT INR APTT POC ABG pH POC ABG pCO2 POC ABG pO2 53 L 65 L Sodium Potassium Chloride Carbon Dioxide BUN Creatinine Glucose POC Glucose 109 H Lactic Acid Calcium Phosphorus Magnesium Iron TIBC Ferritin Direct Bilirubin AST Total Creatine Kinase Troponin T Total Protein Albumin Prealbumin LDL Cholesterol Direct HDL Cholesterol Vitamin B12 TSH PTH Intact Urine Creatinine Urine Total Protein Vancomycin Trough Digoxin Salicylates Acetaminophen Crossmatch 03/20/19 03/20/19 03/20/19 05:50 07:29 08:14 WBC RBC Hgb Hct MCV MCH MCHC RDW Plt Count Lymph % (Auto) [place] % (Auto) Lymph # [place] # Seg Neutrophils % Seg Neuts % (Manual) Lymphocytes % (Manual) Monocytes % (Manual) Eosinophils % (Manual) Nucleated RBC % Seg Neutrophils # Seg Neutrophils # Man Lymphocytes # (Manual) Monocytes # (Manual) Eosinophils # (Manual) PT INR APTT POC ABG pH POC ABG pCO2 POC ABG pO2 Sodium Potassium Chloride Carbon Dioxide BUN Creatinine Glucose 61 L POC Glucose 47 L 153 H Lactic Acid Calcium Phosphorus Magnesium 1.60 L Iron TIBC Ferritin Direct Bilirubin AST Total Creatine Kinase Troponin T Total Protein Albumin Prealbumin LDL Cholesterol Direct HDL Cholesterol Vitamin B12 TSH PTH Intact Urine Creatinine Urine Total Protein Vancomycin Trough Digoxin Salicylates Acetaminophen Crossmatch 03/20/19 03/20/19 03/20/19 08:23 08:23 10:59 WBC RBC Hgb Hct MCV MCH MCHC RDW Plt Count Lymph % (Auto) [place] % (Auto) Lymph # [place] # Seg Neutrophils % Seg Neuts % (Manual) Lymphocytes % (Manual) Monocytes % (Manual) Eosinophils % (Manual) Nucleated RBC % Seg Neutrophils # Seg Neutrophils # Man Lymphocytes # (Manual) Monocytes # (Manual) Eosinophils # (Manual) PT INR APTT POC ABG pH POC ABG pCO2 POC ABG pO2 Sodium Potassium Chloride Carbon Dioxide BUN Creatinine Glucose 101 H POC Glucose 233 H Lactic Acid 9.70 H* Calcium Phosphorus Magnesium Iron TIBC Ferritin Direct Bilirubin AST Total Creatine Kinase Troponin T Total Protein Albumin Prealbumin 0.052 L LDL Cholesterol Direct HDL Cholesterol Vitamin B12 TSH PTH Intact Urine Creatinine Urine Total Protein Vancomycin Trough Digoxin Salicylates Acetaminophen Crossmatch 03/20/19 03/20/19 03/20/19 12:23 16:10 16:40 WBC RBC Hgb Hct MCV MCH MCHC RDW Plt Count Lymph % (Auto) [place] % (Auto) Lymph # [place] # Seg Neutrophils % Seg Neuts % (Manual) Lymphocytes % (Manual) Monocytes % (Manual) Eosinophils % (Manual) Nucleated RBC % Seg Neutrophils # Seg Neutrophils # Man Lymphocytes # (Manual) Monocytes # (Manual) Eosinophils # (Manual) PT INR APTT POC ABG pH POC ABG pCO2 POC ABG pO2 Sodium Potassium Chloride Carbon Dioxide BUN Creatinine Glucose POC Glucose 135 H 171 H Lactic Acid Calcium Phosphorus Magnesium Iron TIBC Ferritin Direct Bilirubin AST Total Creatine Kinase Troponin T Total Protein Albumin Prealbumin LDL Cholesterol Direct HDL Cholesterol Vitamin B12 TSH PTH Intact Urine Creatinine 53.7 H Urine Total Protein 36 H Vancomycin Trough Digoxin Salicylates Acetaminophen Crossmatch 03/20/19 03/20/19 03/20/19 16:57 17:38 17:50 WBC RBC Hgb Hct MCV MCH MCHC RDW Plt Count Lymph % (Auto) [place] % (Auto) Lymph # [place] # Seg Neutrophils % Seg Neuts % (Manual) Lymphocytes % (Manual) Monocytes % (Manual) Eosinophils % (Manual) Nucleated RBC % Seg Neutrophils # Seg Neutrophils # Man Lymphocytes # (Manual) Monocytes # (Manual) Eosinophils # (Manual) PT INR APTT POC ABG pH POC ABG pCO2 POC ABG pO2 Sodium Potassium Chloride Carbon Dioxide BUN Creatinine Glucose POC Glucose 152 H 147 H Lactic Acid 9.90 H* Calcium Phosphorus Magnesium Iron TIBC Ferritin Direct Bilirubin AST Total Creatine Kinase Troponin T Total Protein Albumin Prealbumin LDL Cholesterol Direct HDL Cholesterol Vitamin B12 TSH PTH Intact Urine Creatinine Urine Total Protein Vancomycin Trough Digoxin Salicylates Acetaminophen Crossmatch 03/20/19 03/20/19 03/20/19 17:50 17:50 17:50 WBC RBC 2.92 L Hgb 10.0 L Hct 29.3 L MCV 100 H MCH 34 H MCHC RDW Plt Count 81 L Lymph % (Auto) [place] % (Auto) Lymph # [place] # Seg Neutrophils % Seg Neuts % (Manual) Lymphocytes % (Manual) Monocytes % (Manual) Eosinophils % (Manual) Nucleated RBC % Seg Neutrophils # Seg Neutrophils # Man Lymphocytes # (Manual) Monocytes # (Manual) Eosinophils # (Manual) PT INR APTT POC ABG pH POC ABG pCO2 POC ABG pO2 Sodium Potassium 2.8 L* D Chloride Carbon Dioxide BUN 30 H Creatinine 1.6 H Glucose 107 H POC Glucose Lactic Acid Calcium 6.9 L Phosphorus 2.00 L Magnesium Iron TIBC Ferritin Direct Bilirubin AST Total Creatine Kinase Troponin T Total Protein Albumin Prealbumin LDL Cholesterol Direct HDL Cholesterol Vitamin B12 TSH PTH Intact 171.6 H Urine Creatinine Urine Total Protein Vancomycin Trough Digoxin Salicylates Acetaminophen Crossmatch 03/20/19 03/21/1903/21/19 21:12 00:30 04:12 WBC RBC Hgb Hct MCV MCH MCHC RDW Plt Count Lymph % (Auto) [place] % (Auto) Lymph # [place] # Seg Neutrophils % Seg Neuts % (Manual) Lymphocytes % (Manual) Monocytes % (Manual) Eosinophils % (Manual) Nucleated RBC % Seg Neutrophils # Seg Neutrophils # Man Lymphocytes # (Manual) Monocytes # (Manual) Eosinophils # (Manual) PT INR APTT POC ABG pH POC ABG pCO2 POC ABG pO2 Sodium Potassium 3.0 L Chloride Carbon Dioxide 21 L BUN Creatinine 1.4 H Glucose 103 H POC Glucose Lactic Acid 8.70 H* 9.40 H* Calcium 6.8 L Phosphorus Magnesium Iron TIBC Ferritin Direct Bilirubin AST Total Creatine Kinase Troponin T Total Protein Albumin Prealbumin LDL Cholesterol Direct HDL Cholesterol Vitamin B12 TSH PTH Intact Urine Creatinine Urine Total Protein Vancomycin Trough Digoxin Salicylates Acetaminophen Crossmatch 03/21/19 03/21/19 03/21/19 04:12 04:12 04:43 WBC RBC 2.84 L Hgb 9.5 L Hct 28.3 L MCV 100 H MCH 33 H MCHC RDW Plt Count 79 L Lymph % (Auto) [place] % (Auto) Lymph # [place] # Seg Neutrophils % Seg Neuts % (Manual) Lymphocytes % (Manual) Monocytes % (Manual) Eosinophils % (Manual) Nucleated RBC % Seg Neutrophils # Seg Neutrophils # Man Lymphocytes # (Manual) Monocytes # (Manual) Eosinophils # (Manual) PT INR APTT POC ABG pH 7.456 H POC ABG pCO2 POC ABG pO2 Sodium Potassium Chloride Carbon Dioxide BUN Creatinine Glucose POC Glucose Lactic Acid 9.50 H* Calcium Phosphorus Magnesium Iron TIBC Ferritin Direct Bilirubin AST Total Creatine Kinase Troponin T Total Protein Albumin Prealbumin LDL Cholesterol Direct HDL Cholesterol Vitamin B12 TSH PTH Intact Urine Creatinine Urine Total Protein Vancomycin Trough Digoxin Salicylates Acetaminophen Crossmatch 03/21/19 03/21/19 03/21/19 08:06 08:08 10:11 WBC RBC Hgb Hct MCV MCH MCHC RDW Plt Count Lymph % (Auto) [place] % (Auto) Lymph # [place] # Seg Neutrophils % Seg Neuts % (Manual) Lymphocytes % (Manual) Monocytes % (Manual) Eosinophils % (Manual) Nucleated RBC % Seg Neutrophils # Seg Neutrophils # Man Lymphocytes # (Manual) Monocytes # (Manual) Eosinophils # (Manual) PT INR APTT POC ABG pH POC ABG pCO2 POC ABG pO2 Sodium Potassium 3.5 L Chloride Carbon Dioxide BUN 22 H Creatinine 1.3 H Glucose POC Glucose 64 L Lactic Acid 8.00 H* Calcium 7.0 L Phosphorus Magnesium Iron TIBC Ferritin Direct Bilirubin AST Total Creatine Kinase Troponin T Total Protein Albumin Prealbumin LDL Cholesterol Direct HDL Cholesterol Vitamin B12 TSH PTH Intact Urine Creatinine Urine Total Protein Vancomycin Trough Digoxin Salicylates Acetaminophen Crossmatch 03/21/19 03/21/19 03/21/19 11:17 12:17 13:37 WBC RBC Hgb Hct MCV MCH MCHC RDW Plt Count Lymph % (Auto) [place] % (Auto) Lymph # [place] # Seg Neutrophils % Seg Neuts % (Manual) Lymphocytes % (Manual) Monocytes % (Manual) Eosinophils % (Manual) Nucleated RBC % Seg Neutrophils # Seg Neutrophils # Man Lymphocytes # (Manual) Monocytes # (Manual) Eosinophils # (Manual) PT INR APTT POC ABG pH POC ABG pCO2 POC ABG pO2 Sodium Potassium Chloride Carbon Dioxide BUN Creatinine Glucose POC Glucose 173 H 110 H Lactic Acid Calcium Phosphorus Magnesium Iron TIBC Ferritin Direct Bilirubin AST Total Creatine Kinase Troponin T 0.033 H D Total Protein Albumin Prealbumin LDL Cholesterol Direct HDL Cholesterol Vitamin B12 TSH PTH Intact Urine Creatinine Urine Total Protein Vancomycin Trough Digoxin Salicylates Acetaminophen Crossmatch 03/21/19 03/21/19 03/21/19 13:37 17:21 18:52 WBC RBC Hgb Hct MCV MCH MCHC RDW Plt Count Lymph % (Auto) [place] % (Auto) Lymph # [place] # Seg Neutrophils % Seg Neuts % (Manual) Lymphocytes % (Manual) Monocytes % (Manual) Eosinophils % (Manual) Nucleated RBC % Seg Neutrophils # Seg Neutrophils # Man Lymphocytes # (Manual) Monocytes # (Manual) Eosinophils # (Manual) PT INR APTT POC ABG pH POC ABG pCO2 POC ABG pO2 Sodium Potassium Chloride Carbon Dioxide BUN Creatinine Glucose POC Glucose 130 H 107 H Lactic Acid 6.80 H* Calcium Phosphorus Magnesium Iron TIBC Ferritin Direct Bilirubin AST Total Creatine Kinase Troponin T Total Protein Albumin Prealbumin LDL Cholesterol Direct HDL Cholesterol Vitamin B12 TSH PTH Intact Urine Creatinine Urine Total Protein Vancomycin Trough Digoxin Salicylates Acetaminophen Crossmatch 03/21/19 03/21/19 03/21/19 20:20 22:08 23:05 WBC RBC Hgb Hct MCV MCH MCHC RDW Plt Count Lymph % (Auto) [place] % (Auto) Lymph # [place] # Seg Neutrophils % Seg Neuts % (Manual) Lymphocytes % (Manual) Monocytes % (Manual) Eosinophils % (Manual) Nucleated RBC % Seg Neutrophils # Seg Neutrophils # Man Lymphocytes # (Manual) Monocytes # (Manual) Eosinophils # (Manual) PT INR APTT POC ABG pH POC ABG pCO2 POC ABG pO2 Sodium Potassium Chloride Carbon Dioxide BUN Creatinine Glucose POC Glucose 106 H 106 H Lactic Acid Calcium Phosphorus Magnesium Iron TIBC Ferritin Direct Bilirubin AST Total Creatine Kinase Troponin T 0.036 H Total Protein Albumin Prealbumin LDL Cholesterol Direct HDL Cholesterol Vitamin B12 TSH PTH Intact Urine Creatinine Urine Total Protein Vancomycin Trough Digoxin Salicylates Acetaminophen Crossmatch 03/21/19 03/21/19 03/22/19 23:05 23:05 00:14 WBC RBC Hgb Hct MCV MCH MCHC RDW Plt Count Lymph % (Auto) [place] % (Auto) Lymph # [place] # Seg Neutrophils % Seg Neuts % (Manual) Lymphocytes % (Manual) Monocytes % (Manual) Eosinophils % (Manual) Nucleated RBC % Seg Neutrophils # Seg Neutrophils # Man Lymphocytes # (Manual) Monocytes # (Manual) Eosinophils # (Manual) PT INR APTT POC ABG pH POC ABG pCO2 POC ABG pO2 Sodium Potassium Chloride Carbon Dioxide BUN Creatinine Glucose POC Glucose 122 H 109 H Lactic Acid 7.00 H* Calcium Phosphorus Magnesium Iron TIBC Ferritin Direct Bilirubin AST Total Creatine Kinase Troponin T Total Protein Albumin Prealbumin LDL Cholesterol Direct HDL Cholesterol Vitamin B12 TSH PTH Intact Urine Creatinine Urine Total Protein Vancomycin Trough Digoxin Salicylates Acetaminophen Crossmatch 03/22/19 03/22/19 03/22/19 03:10 04:02 05:11 WBC RBC Hgb Hct MCV MCH MCHC RDW Plt Count Lymph % (Auto) [place] % (Auto) Lymph # [place] # Seg Neutrophils % Seg Neuts % (Manual) Lymphocytes % (Manual) Monocytes % (Manual) Eosinophils % (Manual) Nucleated RBC % Seg Neutrophils # Seg Neutrophils # Man Lymphocytes # (Manual) Monocytes # (Manual) Eosinophils # (Manual) PT INR APTT POC ABG pH 7.487 H POC ABG pCO2 POC ABG pO2 67 L Sodium Potassium Chloride Carbon Dioxide BUN Creatinine Glucose POC Glucose 114 H 112 H Lactic Acid Calcium Phosphorus Magnesium Iron TIBC Ferritin Direct Bilirubin AST Total Creatine Kinase Troponin T Total Protein Albumin Prealbumin LDL Cholesterol Direct HDL Cholesterol Vitamin B12 TSH PTH Intact Urine Creatinine Urine Total Protein Vancomycin Trough Digoxin Salicylates Acetaminophen Crossmatch 03/22/19 03/22/19 03/22/19 06:06 06:10 06:10 WBC RBC Hgb Hct MCV MCH MCHC RDW Plt Count Lymph % (Auto) [place] % (Auto) Lymph # [place] # Seg Neutrophils % Seg Neuts % (Manual) Lymphocytes % (Manual) Monocytes % (Manual) Eosinophils % (Manual) Nucleated RBC % Seg Neutrophils # Seg Neutrophils # Man Lymphocytes # (Manual) Monocytes # (Manual) Eosinophils # (Manual) PT INR APTT POC ABG pH POC ABG pCO2 POC ABG pO2 Sodium Potassium 3.0 L Chloride Carbon Dioxide BUN Creatinine Glucose POC Glucose 115 H Lactic Acid Calcium 7.0 L Phosphorus Magnesium Iron TIBC Ferritin Direct Bilirubin AST Total Creatine Kinase Troponin T 0.036 H Total Protein Albumin Prealbumin LDL Cholesterol Direct HDL Cholesterol Vitamin B12 TSH PTH Intact Urine Creatinine Urine Total Protein Vancomycin Trough Digoxin Salicylates Acetaminophen Crossmatch 03/22/19 03/22/19 03/22/19 06:10 06:10 11:59 WBC RBC Hgb Hct MCV MCH MCHC RDW Plt Count Lymph % (Auto) [place] % (Auto) Lymph # [place] # Seg Neutrophils % Seg Neuts % (Manual) Lymphocytes % (Manual) Monocytes % (Manual) Eosinophils % (Manual) Nucleated RBC % Seg Neutrophils # Seg Neutrophils # Man Lymphocytes # (Manual) Monocytes # (Manual) Eosinophils # (Manual) PT INR APTT POC ABG pH POC ABG pCO2 POC ABG pO2 Sodium Potassium Chloride Carbon Dioxide BUN Creatinine Glucose POC Glucose Lactic Acid 4.80 H* 3.80 H* Calcium Phosphorus Magnesium Iron TIBC Ferritin Direct Bilirubin AST Total Creatine Kinase Troponin T Total Protein Albumin Prealbumin LDL Cholesterol Direct HDL Cholesterol Vitamin B12 TSH 7.810 H PTH Intact Urine Creatinine Urine Total Protein Vancomycin Trough Digoxin Salicylates Acetaminophen Crossmatch 03/22/19 03/22/19 03/22/19 13:45 13:45 13:45 WBC RBC Hgb 8.3 L Hct 24.5 L MCV MCH MCHC RDW Plt Count 56 L Lymph % (Auto) [place] % (Auto) Lymph # [place] # Seg Neutrophils % Seg Neuts % (Manual) Lymphocytes % (Manual) Monocytes % (Manual) Eosinophils % (Manual) Nucleated RBC % Seg Neutrophils # Seg Neutrophils # Man Lymphocytes # (Manual) Monocytes # (Manual) Eosinophils # (Manual) PT 21.4 H INR 1.90 H APTT 43.2 H POC ABG pH POC ABG pCO2 POC ABG pO2 Sodium Potassium Chloride Carbon Dioxide BUN Creatinine Glucose POC Glucose Lactic Acid 3.50 H* Calcium Phosphorus Magnesium Iron TIBC Ferritin Direct Bilirubin AST Total Creatine Kinase Troponin T Total Protein Albumin Prealbumin LDL Cholesterol Direct HDL Cholesterol Vitamin B12 TSH PTH Intact Urine Creatinine Urine Total Protein Vancomycin Trough Digoxin Salicylates Acetaminophen Crossmatch 03/22/19 03/23/19 03/23/19 22:20 01:06 04:50 WBC 12.1 H RBC 2.36 L Hgb 7.7 L Hct 22.9 L MCV MCH 33 H MCHC RDW Plt Count 37 L Lymph % (Auto) [place] % (Auto) Lymph # [place] # Seg Neutrophils % Seg Neuts % (Manual) 83.0 H Lymphocytes % (Manual) 8.0 L Monocytes % (Manual) Eosinophils % (Manual) Nucleated RBC % Seg Neutrophils # Seg Neutrophils # Man 10.0 H Lymphocytes # (Manual) 1.0 L Monocytes # (Manual) Eosinophils # (Manual) PT INR APTT POC ABG pH POC ABG pCO2 POC ABG pO2 Sodium Potassium Chloride Carbon Dioxide BUN Creatinine Glucose POC Glucose Lactic Acid 3.60 H* 2.70 H* Calcium Phosphorus Magnesium Iron TIBC Ferritin Direct Bilirubin AST Total Creatine Kinase Troponin T Total Protein Albumin Prealbumin LDL Cholesterol Direct HDL Cholesterol Vitamin B12 TSH PTH Intact Urine Creatinine Urine Total Protein Vancomycin Trough Digoxin Salicylates Acetaminophen Crossmatch 03/23/19 03/23/19 03/23/19 04:50 05:25 05:53 WBC RBC Hgb Hct MCV MCH MCHC RDW Plt Count Lymph % (Auto) [place] % (Auto) Lymph # [place] # Seg Neutrophils % Seg Neuts % (Manual) Lymphocytes % (Manual) Monocytes % (Manual) Eosinophils % (Manual) Nucleated RBC % Seg Neutrophils # Seg Neutrophils # Man Lymphocytes # (Manual) Monocytes # (Manual) Eosinophils # (Manual) PT INR APTT POC ABG pH POC ABG pCO2 33.3 L POC ABG pO2 Sodium Potassium 3.5 L Chloride 108.3 H Carbon Dioxide BUN Creatinine Glucose POC Glucose 68 L Lactic Acid Calcium 7.3 L Phosphorus Magnesium Iron TIBC Ferritin Direct Bilirubin AST Total Creatine Kinase Troponin T Total Protein Albumin Prealbumin LDL Cholesterol Direct HDL Cholesterol Vitamin B12 TSH PTH Intact Urine Creatinine Urine Total Protein Vancomycin Trough Digoxin Salicylates Acetaminophen Crossmatch 0703/24/19 03/24/19 03:26 05:50 05:57 WBC RBC Hgb Hct MCV MCH MCHC RDW Plt Count Lymph % (Auto) [place] % (Auto) Lymph # [place] # Seg Neutrophils % Seg Neuts % (Manual) Lymphocytes % (Manual) Monocytes % (Manual) Eosinophils % (Manual) Nucleated RBC % Seg Neutrophils # Seg Neutrophils # Man Lymphocytes # (Manual) Monocytes # (Manual) Eosinophils # (Manual) PT INR APTT POC ABG pH POC ABG pCO2 POC ABG pO2 78 L Sodium Potassium 3.4 L Chloride 116.5 H Carbon Dioxide 21 L BUN Creatinine 0.5 L Glucose 105 H POC Glucose 127 H Lactic Acid Calcium 6.4 L Phosphorus Magnesium Iron TIBC Ferritin Direct Bilirubin AST Total Creatine Kinase Troponin T Total Protein Albumin Prealbumin LDL Cholesterol Direct HDL Cholesterol Vitamin B12 TSH PTH Intact Urine Creatinine Urine Total Protein Vancomycin Trough Digoxin Salicylates Acetaminophen Crossmatch 03/24/19 03/24/19 03/24/19 06:00 11:30 12:25 WBC 13.6 H RBC 2.08 L Hgb 6.9 L Hct 20.5 L MCV 99 H MCH 33 H MCHC RDW Plt Count 50 L Lymph % (Auto) 8.1 L [place] % (Auto) 10.0 H Lymph # 1.1 L [place] # 1.4 H Seg Neutrophils % 80.7 H Seg Neuts % (Manual) Lymphocytes % (Manual) Monocytes % (Manual) Eosinophils % (Manual) Nucleated RBC % Seg Neutrophils # 11.0 H Seg Neutrophils # Man Lymphocytes # (Manual) Monocytes # (Manual) Eosinophils # (Manual) PT INR APTT POC ABG pH POC ABG pCO2 POC ABG pO2 Sodium Potassium Chloride Carbon Dioxide BUN Creatinine Glucose POC Glucose 111 H Lactic Acid Calcium Phosphorus Magnesium Iron TIBC Ferritin Direct Bilirubin AST Total Creatine Kinase Troponin T Total Protein Albumin Prealbumin LDL Cholesterol Direct HDL Cholesterol Vitamin B12 TSH PTH Intact Urine Creatinine Urine Total Protein Vancomycin Trough Digoxin Salicylates Acetaminophen Crossmatch See Detail 03/24/19 03/25/19 03/25/19 14:25 05:20 10:00 WBC 13.4 H RBC 2.54 L Hgb 8.1 L Hct 24.3 L MCV MCH MCHC RDW 17.3 H Plt Count 44 L Lymph % (Auto) [place] % (Auto) Lymph # [place] # Seg Neutrophils % Seg Neuts % (Manual) Lymphocytes % (Manual) Monocytes % (Manual) Eosinophils % (Manual) Nucleated RBC % Seg Neutrophils # Seg Neutrophils # Man Lymphocytes # (Manual) Monocytes # (Manual) Eosinophils # (Manual) PT INR APTT POC ABG pH POC ABG pCO2 POC ABG pO2 Sodium Potassium Chloride Carbon Dioxide BUN Creatinine Glucose POC Glucose 111 H Lactic Acid Calcium Phosphorus Magnesium Iron 32 L TIBC 75 L Ferritin Direct Bilirubin AST Total Creatine Kinase Troponin T Total Protein Albumin Prealbumin LDL Cholesterol Direct HDL Cholesterol Vitamin B12 TSH PTH Intact Urine Creatinine Urine Total Protein Vancomycin Trough Digoxin Salicylates Acetaminophen Crossmatch 03/25/19 03/25/19 03/25/19 10:11 10:11 23:11 WBC RBC Hgb Hct MCV MCH MCHC RDW Plt Count Lymph % (Auto) [place] % (Auto) Lymph # [place] # Seg Neutrophils % Seg Neuts % (Manual) Lymphocytes % (Manual) Monocytes % (Manual) Eosinophils % (Manual) Nucleated RBC % Seg Neutrophils # Seg Neutrophils # Man Lymphocytes # (Manual) Monocytes # (Manual) Eosinophils # (Manual) PT INR APTT POC ABG pH POC ABG pCO2 POC ABG pO2 Sodium Potassium Chloride 112.0 H Carbon Dioxide BUN 20 H Creatinine 0.6 L Glucose POC Glucose 112 H Lactic Acid Calcium 7.2 L Phosphorus Magnesium Iron TIBC Ferritin Direct Bilirubin AST Total Creatine Kinase Troponin T Total Protein Albumin Prealbumin LDL Cholesterol Direct HDL Cholesterol Vitamin B12 > 2000 H TSH PTH Intact Urine Creatinine Urine Total Protein Vancomycin Trough Digoxin Salicylates Acetaminophen Crossmatch 03/26/19 03/26/19 03/26/19 05:00 05:00 05:16 WBC 14.4 H RBC 2.74 L Hgb 8.9 L Hct 25.7 L MCV MCH 33 H MCHC 35 H RDW 16.9 H Plt Count 60 L Lymph % (Auto) [place] % (Auto) Lymph # [place] # Seg Neutrophils % Seg Neuts % (Manual) 83.0 H Lymphocytes % (Manual) 5.0 L Monocytes % (Manual) Eosinophils % (Manual) 5.0 H Nucleated RBC % 1.0 H Seg Neutrophils # Seg Neutrophils # Man 12.0 H Lymphocytes # (Manual) 0.7 L Monocytes # (Manual) 0.9 H Eosinophils # (Manual) 0.7 H PT INR APTT POC ABG pH POC ABG pCO2 POC ABG pO2 Sodium Potassium 3.1 L Chloride 110.4 H Carbon Dioxide BUN 22 H Creatinine Glucose 101 H POC Glucose 114 H Lactic Acid Calcium 7.4 L Phosphorus Magnesium Iron TIBC Ferritin Direct Bilirubin AST Total Creatine Kinase Troponin T Total Protein Albumin Prealbumin LDL Cholesterol Direct HDL Cholesterol Vitamin B12 TSH PTH Intact Urine Creatinine Urine Total Protein Vancomycin Trough Digoxin Salicylates Acetaminophen Crossmatch 03/26/19 03/27/19 03/27/19 11:55 09:04 09:04 WBC RBC Hgb Hct MCV MCH MCHC RDW Plt Count Lymph % (Auto) [place] % (Auto) Lymph # [place] # Seg Neutrophils % Seg Neuts % (Manual) Lymphocytes % (Manual) Monocytes % (Manual) Eosinophils % (Manual) Nucleated RBC % Seg Neutrophils # Seg Neutrophils # Man Lymphocytes # (Manual) Monocytes # (Manual) Eosinophils # (Manual) PT INR APTT POC ABG pH POC ABG pCO2 POC ABG pO2 Sodium Potassium 3.2 L Chloride Carbon Dioxide BUN 22 H Creatinine Glucose POC Glucose 121 H Lactic Acid Calcium 7.7 L Phosphorus Magnesium Iron TIBC Ferritin Direct Bilirubin AST Total Creatine Kinase Troponin T Total Protein Albumin Prealbumin LDL Cholesterol Direct HDL Cholesterol Vitamin B12 TSH PTH Intact Urine Creatinine Urine Total Protein Vancomycin Trough 23.0 H Digoxin Salicylates Acetaminophen Crossmatch 03/27/19 03/27/19 03/27/19 09:04 13:31 14:04 WBC 14.8 H RBC 2.52 L Hgb 8.0 L 8.3 L Hct 24.0 L 25.3 L MCV MCH MCHC RDW 17.0 H Plt Count 89 L 91 L Lymph % (Auto) [place] % (Auto) 8.8 H Lymph # [place] # 1.3 H Seg Neutrophils % 70.7 H Seg Neuts % (Manual) Lymphocytes % (Manual) Monocytes % (Manual) Eosinophils % (Manual) Nucleated RBC % Seg Neutrophils # 10.5 H Seg Neutrophils # Man Lymphocytes # (Manual) Monocytes # (Manual) Eosinophils # (Manual) PT INR APTT POC ABG pH POC ABG pCO2 POC ABG pO2 Sodium Potassium Chloride Carbon Dioxide BUN Creatinine Glucose POC Glucose Lactic Acid Calcium Phosphorus Magnesium Iron TIBC Ferritin Direct Bilirubin 0.3 H AST Total Creatine Kinase Troponin T Total Protein 4.9 L Albumin 1.3 L Prealbumin LDL Cholesterol Direct HDL Cholesterol Vitamin B12 TSH PTH Intact Urine Creatinine Urine Total Protein Vancomycin Trough Digoxin Salicylates Acetaminophen Crossmatch 03/27/19 03/27/19 03/28/19 14:04 23:51 01:05 WBC 14.4 H RBC 2.44 L Hgb 8.0 L Hct 24.5 L MCV 100 H MCH 33 H MCHC RDW 18.5 H Plt Count 86 L Lymph % (Auto) [place] % (Auto) Lymph # [place] # Seg Neutrophils % Seg Neuts % (Manual) 84.0 H Lymphocytes % (Manual) 10.0 L Monocytes % (Manual) Eosinophils % (Manual) Nucleated RBC % Seg Neutrophils # Seg Neutrophils # Man 12.1 H Lymphocytes # (Manual) Monocytes # (Manual) Eosinophils # (Manual) PT 21.4 H INR 1.90 H APTT 42.2 H POC ABG pH POC ABG pCO2 POC ABG pO2 Sodium Potassium Chloride Carbon Dioxide BUN Creatinine Glucose POC Glucose 130 H Lactic Acid Calcium Phosphorus Magnesium Iron TIBC Ferritin Direct Bilirubin AST Total Creatine Kinase Troponin T Total Protein Albumin Prealbumin LDL Cholesterol Direct HDL Cholesterol Vitamin B12 TSH PTH Intact Urine Creatinine Urine Total Protein Vancomycin Trough Digoxin Salicylates Acetaminophen Crossmatch 03/28/19 03/28/19 03/28/19 02:51 04:45 07:31 WBC RBC Hgb Hct MCV MCH MCHC RDW Plt Count Lymph % (Auto) [place] % (Auto) Lymph # [place] # Seg Neutrophils % Seg Neuts % (Manual) Lymphocytes % (Manual) Monocytes % (Manual) Eosinophils % (Manual) Nucleated RBC % Seg Neutrophils # Seg Neutrophils # Man Lymphocytes # (Manual) Monocytes # (Manual) Eosinophils # (Manual) PT INR APTT 75.0 H* POC ABG pH POC ABG pCO2 POC ABG pO2 Sodium Potassium Chloride Carbon Dioxide BUN 22 H Creatinine Glucose POC Glucose Lactic Acid Calcium 7.8 L Phosphorus Magnesium Iron TIBC Ferritin 448.3 H Direct Bilirubin AST Total Creatine Kinase Troponin T Total Protein Albumin Prealbumin LDL Cholesterol Direct HDL Cholesterol Vitamin B12 TSH PTH Intact Urine Creatinine Urine Total Protein Vancomycin Trough Digoxin Salicylates Acetaminophen Crossmatch 03/28/19 03/29/19 03/29/19 14:30 04:40 04:40 WBC RBC 2.17 L Hgb 7.1 L Hct 20.8 L MCV MCH 33 H MCHC RDW 17.1 H Plt Count 122 L Lymph % (Auto) [place] % (Auto) Lymph # [place] # Seg Neutrophils % Seg Neuts % (Manual) Lymphocytes % (Manual) Monocytes % (Manual) Eosinophils % (Manual) Nucleated RBC % Seg Neutrophils # Seg Neutrophils # Man Lymphocytes # (Manual) Monocytes # (Manual) Eosinophils # (Manual) PT INR APTT 70.3 H* POC ABG pH POC ABG pCO2 POC ABG pO2 Sodium Potassium Chloride Carbon Dioxide 31 H BUN 22 H Creatinine 0.5 L Glucose POC Glucose Lactic Acid Calcium 8.0 L Phosphorus Magnesium Iron TIBC Ferritin Direct Bilirubin AST Total Creatine Kinase Troponin T Total Protein 5.0 L Albumin 1.4 L Prealbumin LDL Cholesterol Direct HDL Cholesterol Vitamin B12 TSH PTH Intact Urine Creatinine Urine Total Protein Vancomycin Trough Digoxin Salicylates Acetaminophen Crossmatch 03/29/19 03/29/19 03/29/19 04:40 04:40 11:50 WBC RBC Hgb Hct MCV MCH MCHC RDW Plt Count Lymph % (Auto) [place] % (Auto) Lymph # [place] # Seg Neutrophils % Seg Neuts % (Manual) Lymphocytes % (Manual) Monocytes % (Manual) Eosinophils % (Manual) Nucleated RBC % Seg Neutrophils # Seg Neutrophils # Man Lymphocytes # (Manual) Monocytes # (Manual) Eosinophils # (Manual) PT INR APTT 71.8 H* POC ABG pH POC ABG pCO2 POC ABG pO2 Sodium Potassium Chloride Carbon Dioxide BUN Creatinine Glucose POC Glucose 118 H Lactic Acid Calcium Phosphorus Magnesium Iron TIBC Ferritin Direct Bilirubin AST Total Creatine Kinase Troponin T Total Protein Albumin Prealbumin LDL Cholesterol Direct HDL Cholesterol Vitamin B12 TSH PTH Intact Urine Creatinine Urine Total Protein Vancomycin Trough Digoxin 3.5 H* Salicylates Acetaminophen Crossmatch
[2019-03-29] MEDS ORDERED: NACL 0.9% 250ML 250 ML IV ONE (12:32)
[2019-03-29] MEDS ORDERED: NACL 0.9% 500 ML 250 ML IV SCH (13:00)
--- NOTE | 2019-03-29 16:07 | Progress Note ---
Assessment and Plan Cultures/ID related labs: 03/27 tracheal aspirate - heavy neutrophils, usual resp maday Blood culture 03/19/2019 negative. Urine culture 03/19/2019 negative. 03/23/2019 tracheal aspirate culture: Usual resp maday Assessment: 73 y/o female with history of dementia, prior CVA, on home hospice admitted on 03/20/2019 brought by EMS due to altered mental status: 1) Sepsis with septic shock: source pneumonia but persistent fever. UA negative . Blood culture 03/19/2019 no growth. Urine culture 03/19/2019 negative. Would continue meropenem for now and monitor for improvement, likely for 8 day course. Resp culture sterilized. 2) Bilateral pneumonia: ? aspiration v/s CAP. Trach aspirate cultures usual resp maday, <25 WBC. 3) Acute encephalopathy: CT head without contrast shows encephalomalacia in the entire right cerebral hemisphere, volume loss in the left cerebral hemisphere, no acute parenchymal lesion in the brain. 4) Acute respiratory failure: remains intubated, on the vent. Responsive to commands today. 5) HA: improved. 6) Persistent fevers - Dopplers showing DVT of RIJ at catheter site as well as R common femoral, and a superficial thrombus in R greater saphenous. Likely causing fevers. ICU to start argatroban, consulted heme. Will continue to follow along with you. Recommendations: continue IV Meropenem 1 gm q8 hrs Guarded prognosis, was on home hospice prior to admission MD [facility] C: [phone] O: [phone] F: [phone] Subjective Date of service: 03/29/19 Principal diagnosis: low plt - DVT Interval history: Remains intubated. Weakly responsive to commands. Remains febrile. White count improving. Objective - Exam Narrative Exam: Constitutional: awake, no distress, weakly following commands Head, Ears, Nose: Normocephalic, atraumatic. External ears, nose normal Eyes: Conjunctivae/corneas clear. No icterus. No ptosis. Neck: Supple, no meningeal signs Oral: Intubated Cardiovascular: S1, S2 normal. Normal rhythm Respiratory: Good air entry, clear to auscultation bilaterally GI: Soft, non-tender; bowel sounds normal. No peritoneal signs Musculoskeletal: No pedal edema, Skin: No rash or abscess Hem/Lymphatic: No palpable cervical or supraclavicular nodes. No lymphangitis Psych: no agitation Neurological: weak, 3/5 strength extremities. Restrained - Constitutional Vitals: Vital Signs Temp Pulse Resp BP Pulse Ox 100.7 F H 112 H 22 125/42 100 03/29/19 12:00 03/29/19 15:30 03/29/19 15:30 03/29/19 15:30 03/29/19 15:30 Temperature -Last 24 Hours Temperature 100.7 F Temperature 101.4 F Temperature 100.1 F Temperature 99.0 F Temperature 100.8 F - Labs CBC & Chem 7: 03/29/19 04:40 03/29/19 04:40 Labs: Abnormal lab results 03/29/19 03/29/19 03/29/19 Range/Units 04:40 04:40 04:40 RBC 2.17 L (3.65-5.03) M/mm3 Hgb 7.1 L (10.1-14.3) gm/dl Hct 20.8 L (30.3-42.9) % MCH 33 H (28-32) pg RDW 17.1 H (13.2-15.2) % Plt Count 122 L (140-440) K/mm3 APTT (24.2-36.6) Sec. Carbon Dioxide 31 H (22-30) mmol/L BUN 22 H (7-17) mg/dL Creatinine 0.5 L (0.7-1.2) mg/dL POC Glucose (70-105) Calcium 8.0 L (8.4-10.2) mg/dL Total Protein 5.0 L (6.3-8.2) g/dL Albumin 1.4 L (3.9-5) g/dL Digoxin 3.5 H* (0.9-2.0) ng/mL 03/29/19 03/29/19 Range/Units 04:40 11:50 RBC (3.65-5.03) M/mm3 Hgb (10.1-14.3) gm/dl Hct (30.3-42.9) % MCH (28-32) pg RDW (13.2-15.2) % Plt Count (140-440) K/mm3 APTT 71.8 H* (24.2-36.6) Sec. Carbon Dioxide (22-30) mmol/L BUN (7-17) mg/dL Creatinine (0.7-1.2) mg/dL POC Glucose 118 H (70-105) Calcium (8.4-10.2) mg/dL Total Protein (6.3-8.2) g/dL Albumin (3.9-5) g/dL Digoxin (0.9-2.0) ng/mL
[2019-03-29] MEDS ORDERED: FERRLECIT 125 MG in NACL 0.9% 100 ML IV ONE (18:24)
[2019-03-30] MEDS: DUONEB *Not for PRN Use IH SCH ×4 (01:49→20:01)
[2019-03-30 05:08] LABS: Hemoglobin 6.4 gm/dl (10.1-14.3)
[2019-03-30 05:52] LABS: Hematocrit 18.9 % (30.3-42.9)
[2019-03-30] MEDS: HumaLOG SUB-Q SCH ×4 (06:05→17:47)
[2019-03-30] MEDS: MERREM 1,000 MG in NACL 0.9% 100 ML IV SCH ×3 (06:05→22:26)
[2019-03-30] MEDS ORDERED: NACL 0.9% 500 ML 500 ML IV ONE ×2 (06:15→10:00)
--- NOTE | 2019-03-30 06:15 | Event Note ---
Date: 03/30/19 hgb 6.4 this am. Will type and screen; and order 1U PRBC.
--- NOTE | 2019-03-30 08:01 | Hem/Onc Progress Note ---
Assessment and Plan low plt - since admission DVT was on home hospice 1. Thrombocytopenia. This may be secondary to medications. The platelets were even low at admission. The differential includes infection versus a marrow issue. At this time, platelets are adequate, we will follow the trend. Because of clinical suspicion, HIT test has been ordered. Argatroban ordered. Heparin has been stopped. 2. Pneumonia. 3. Encephalopathy. 4. Respiratory failure, on vent. 5. Renal impairment. 6. Deep vein thrombosis. Her immobilization may have a role. Central line also may have a role. the patient was on Argatroban. Once HIT antibody is negative, we will look into changing to oral anticoagulation like Eliquis or Xarelto. Her thrombocytopenia may complicate, the patient had low platelet even at admission. IVC filter may prevent the leg DVT from progression to PE; however, for IJ DVT, we have limited options. The patient was on home hospice as per notes. Atrial fibrillation, she was on medications. History of anemia, deficiency investigations. Leukocytosis, likely reactive. B12 level more than 2000, serum iron 32. HIT antibody done on 03/27 anemia - IV iron trial 03/30/2019 anemia - stop argatroban PRBC as per Dr Lorenzana - DNR - Patient Problems (1) Thrombocytopenia Current Visit: Yes Status: Acute Subjective Date of service: 03/30/19 Principal diagnosis: low plt - DVT Interval history: on vent Objective - Exam Narrative Exam: Pain - none - on vent General appearance intubated Performance status - complete help needed Eyes - no icterus ENT no thrush LNs cervical not palpable Neck - no LNs/mass Respiratory Normal Breath sounds - CTA anteriorly CVS S1 S2 + Extremities normal temperature - flaccid General GI Soft - distended Rectal deferred male - deferred Skin warm Musculoskeletal not able to evaluate Neurologically - on vent - Constitutional Vitals: Last Vital Signs Temp 101.1 F H 03/30/19 04:00 Pulse 124 H 03/30/19 06:30 Resp 18 03/30/19 06:30 BP 117/39 03/30/19 06:30 Pulse Ox 100 03/30/19 06:30 - Labs Lab Results: Laboratory Results - last 24 hr 03/29/19 03/29/19 03/29/19 11:50 16:20 16:20 Hgb Hct Plt Count APTT 61.5 H* POC Glucose 118 H Digoxin 2.6 H* 03/29/19 03/29/19 03/29/19 18:24 21:10 22:30 Hgb Hct Plt Count APTT 112.6 H* 103.8 H* POC Glucose 86 Digoxin 03/29/19 03/30/19 03/30/19 23:14 04:42 04:42 Hgb 6.4 L Hct 18.9 L* Plt Count 146 APTT POC Glucose 92 Digoxin 2.6 H* 03/30/19 05:45 Hgb Hct Plt Count APTT POC Glucose 96 Digoxin Medications & Allergies - Medications Allergies/Adverse Reactions: Allergies No Known Allergies Allergy (Unverified 03/19/19 13:11) Home Medications: Home Medications Medication Instructions Recorded Confirmed Last Taken Type Aspirin EC 81 mg PO DAILY 03/20/19 03/20/19 Unknown History Divalproex Sodium 375 mg PO Q8H PRN 03/20/19 03/20/19 Unknown History Metoprolol [Lopressor TAB] 50 mg PO BID 03/20/19 03/20/19 Unknown History Sennosides/Docusate Sodium [Senna 8.6 mg PO BID PRN 03/20/19 03/20/19 Unknown History Plus Tablet] levETIRAcetam [Keppra TAB] 500 mg PO BID 03/20/19 03/20/19 Unknown History Active Medications: Generic Name Dose Route Start Last Admin Trade Name Freq PRN Reason Stop Dose Admin Acetaminophen 650 mg 03/24/19 23:48 03/29/19 21:36 Tylenol FEEDTUBE 650 mg Q6H PRN Administration Fever >101 Albuterol 2.5 mg 03/19/19 23:58 Proventil IH Q3HRT PRN Shortness Of Breath Albuterol/Ipratropium 1 ampul 03/20/19 02:00 03/30/19 01:49 Duoneb *Not For Prn Use* IH 1 ampul Q6HRT YUSUF Administration Amiodarone HCl 200 mg 03/22/19 22:00 03/29/19 21:37 Cordarone PO 200 mg BID YUSUF Administration Lipase/Protease/Amylase 1 each 03/22/19 16:03 Naomi Sargent 10,500 Unit FEEDTUBE PRN PRN For Clogged Feeding Tube Aspirin 81 mg 03/21/19 10:00 03/29/19 10:32 Baby Aspirin PO 81 mg DAILY YUSUF Administration Budesonide 0.5 mg 03/19/19 23:45 03/29/19 19:33 Pulmicort IH 0.5 mg Q12HRT YUSUF Administration Dextrose 50 ml 03/19/19 23:58 03/21/19 16:29 D50w (25gm) Syringe IV 50 ml PRN PRN Administration Hypoglycemia Famotidine 20 mg 03/22/19 10:00 03/29/19 21:36 Pepcid PO 20 mg BID YUSUF Administration Fentanyl 50 mcg 03/19/19 12:45 03/19/19 13:26 Sublimaze IV 50 mcg Q10MIN PRN Administration ANALGESIA Hydromorphone HCl 0.5 mg 03/19/19 23:58 Dilaudid IV Q3H PRN Pain , Severe (7-10) Hydrophilic Ointment 1 applic 03/19/19 12:45 Vaseline Lip Therapy TP Q2HR PRN Dry Lips Fentanyl Citrate 2,000 mcg in 100 mls @ 2.835 mls/hr 03/19/19 14:00 03/21/19 11:33 Fentanyl Drip Premix IV 0 mcg/kg/hr TITR YUSUF 0 mls/hr Titration Protocol 1 MCG/KG/HR Norepinephrine 4 mg in 250 mls @ 7.5 mls/hr 03/25/19 11:00 03/30/19 07:40 Levophed Drip 4 Mg/Ns 250 Ml IV 4 mcg/min TITR YUSUF 15 mls/hr Titration Protocol 2 MCG/MIN Meropenem 1,000 mg/ Sodium 100 mls @ 100 mls/hr 03/26/19 15:00 03/30/19 06:05 Chloride IV 100 mls/hr Q8HR YUSUF Administration Protocol Insulin Human Lispro 0 unit 03/20/19 00:00 03/30/19 06:05 Humalog SUB-Q Not Given Q6HR [facility] Protocol Metoclopramide HCl 5 mg 03/20/19 00:12 Reglan IV Q6H PRN Nausea And Vomiting Metoprolol Tartrate 2.5 mg 03/23/19 13:17 03/24/19 21:20 Lopressor IV 2.5 mg Q2HR PRN Administration HR >150 Multi-Ingred Cream/Lotion/Oil/Oint 1 applic 03/19/19 12:45 Artificial Tears Ophth Oint OU Q4HR PRN Dry Eye(s) Ondansetron HCl 4 mg 03/19/19 23:58 Zofran IV Q8H PRN Nausea And Vomiting Promethazine HCl 25 mg 03/19/19 23:58 Phenergan TN Q6H PRN N/V IF NPO AND NO IV ACCESS Simple Syrup 15 ml 03/22/19 16:03 03/23/19 07:21 Simple Syrup FEEDTUBE 15 ml PRN PRN Administration Hypoglycemia Simple Syrup 30 ml 03/22/19 16:03 Simple Syrup FEEDTUBE PRN PRN Hypoglycemia Sodium Bicarbonate 325 mg 03/22/19 16:03 Sodium Bicarbonate FEEDTUBE PRN PRN For Clogged Feeding Tube Sodium Chloride 10 ml 03/20/19 10:00 03/29/19 21:38 Sodium Chloride Flush Syringe 10 Ml IV 10 ml BID YUSUF Administration Sodium Chloride 10 ml 03/19/19 23:58 Sodium Chloride Flush Syringe 10 Ml IV PRN PRN LINE FLUSH
--- NOTE | 2019-03-30 08:06 | Progress Note ---
Assessment and Plan Assessment and plan: --Severe Anemia: Drop in H/H Type and cross, transfuse 1 unit PRBC. DC argatroban Closely monitor --Acute hypoxic respiratory Failure intubated : Vent dependent Pulm cr care following, if unable to wean,patient may need trach and PEG --Brief episode of Hypotension: improved with fluid bolus, closely monitor if No improvement start Levophed --Digoxin toxicity;supratherapeutic level monitor levels and resume when appropriate --Acute Right common femoral DVT and right IJ vein thrombosis place on argatroban drip, consult vascular --Acute metabolic encephalopathy, cont supportive care, CT head negative --Sepsis due to aspiration pneumonia; Continue current antibiotics follow cultures --Septic shock: off pressor, weaned off, BP now stable --Paroxysmal Atrial fib, Now NSR on amioderone,metoprolol digoxin held Started low dose metoprolol --HA (acute kidney injury), atn and vasomotor nephrology, poa: Resolved Nephrology consulted renal function improved --Anemia, due to CD vs other cause Monitor H&H and transfuse additional as needed --RUL Aspiration pneumonia:on Merropenem --Hypernatremia: improved with Iv fluid --Hypomagnesemia: replete and follow as needed --Elevated troponin level/ NSTEMI II; Cardiology following --DVT prophylaxis Patient is independent critically poor prognosis Multiple medical problems, recommend hospice Patient's condition treatment plan will prognosis options of care discussed in detail with the at the bedside As well as his daughter over the phone. Code status discuss with them, Family requested DO NOT RESUSCITATE status and to continue all the other treatment --DNR status Plan of care is reviewed with the patient, at the bedside kaley. Over the phone Disposition; wean as tolerated and extubated If unable to wean may need trach and PEG Hospice evaluation CCT 33 minutes History Interval history: Patient seen and examined this morning medical records review Remains intubated on ventilatory support Hypotensive, severe anemia,vent dependent Very poor diagnosis Vital signs noted Hospitalist Physical - Constitutional Vitals: Temp Pulse Resp BP Pulse Ox 101.1 F H 124 H 18 117/39 100 03/30/19 04:00 03/30/19 06:30 03/30/19 06:30 03/30/19 06:30 03/30/19 06:30 General appearance: Present: no acute distress, well-nourished, other (intubated on vent) - EENT Eyes: Present: PERRL, EOM intact - Neck Neck: Present: supple, normal ROM - Respiratory Respiratory effort: normal Respiratory: bilateral: diminished, rhonchi, negative: rales, wheezing - Cardiovascular Rhythm: regular Heart Sounds: Present: S1 & S2 - Extremities Extremities: no ischemia, No edema - Abdominal General gastrointestinal: soft, non-tender, non-distended, normal bowel sounds - Integumentary Integumentary: Present: clear, warm - Psychiatric Psychiatric: other (on vent support and noncommunicative/) - Neurologic Neurologic: other (on vent) Results - Labs CBC & Chem 7: 03/30/19 04:42 03/29/19 04:40 Labs: Laboratory Last Values WBC 10.4 K/mm3 (4.5-11.0) 03/29/19 04:40 RBC 2.17 M/mm3 (3.65-5.03) L 03/29/19 04:40 Hgb 6.4 gm/dl (10.1-14.3) L 03/30/19 04:42 Hct 18.9 % (30.3-42.9) L* 03/30/19 04:42 MCV 96 fl (79-97) 03/29/19 04:40 MCH 33 pg (28-32) H 03/29/19 04:40 MCHC 34 % (30-34) 03/29/19 04:40 RDW 17.1 % (13.2-15.2) H 03/29/19 04:40 Plt Count 146 K/mm3 (140-440) 03/30/19 04:42 Lymph % (Auto) 20.2 % (13.4-35.0) 03/29/19 04:40 [place] % (Auto) 7.1 % (0.0-7.3) 03/29/19 04:40 Eos % (Auto) 2.8 % (0.0-4.3) 03/29/19 04:40 Baso % (Auto) 0.6 % (0.0-1.8) 03/29/19 04:40 Lymph # 2.1 K/mm3 (1.2-5.4) 03/29/19 04:40 [place] # 0.7 K/mm3 (0.0-0.8) 03/29/19 04:40 Eos # 0.3 K/mm3 (0.0-0.4) 03/29/19 04:40 Baso # 0.1 K/mm3 (0.0-0.1) 03/29/19 04:40 Add Manual Diff Complete 03/28/19 01:05 Total Counted 100 03/28/19 01:05 Seg Neutrophils % 69.3 % (40.0-70.0) 03/29/19 04:40 Seg Neuts % (Manual) 84.0 % (40.0-70.0) H 03/28/19 01:05 0 % 03/28/19 01:05 10.0 % (13.4-35.0) L 03/28/19 01:05 Reactive Lymphs % (Man) 0 % 03/28/19 01:05 3.0 % (0.0-7.3) 03/28/19 01:05 2.0 % (0.0-4.3) 03/28/19 01:05 1.0 % (0.0-1.8) 03/28/19 01:05 0 % 03/28/19 01:05 0 % 03/28/19 01:05 0 % 03/28/19 01:05 0 % 03/28/19 01:05 Nucleated RBC % Not Reportable 03/28/19 01:05 Seg Neutrophils # 7.2 K/mm3 (1.8-7.7) 03/29/19 04:40 Seg Neutrophils # Man 12.1 K/mm3 (1.8-7.7) H 03/28/19 01:05 Band Neutrophils # 0.0 K/mm3 03/28/19 01:05 1.4 K/mm3 (1.2-5.4) 03/28/19 01:05 Abs React Lymphs (Man) 0.0 K/mm3 03/28/19 01:05 0.4 K/mm3 (0.0-0.8) 03/28/19 01:05 0.3 K/mm3 (0.0-0.4) 03/28/19 01:05 0.1 K/mm3 (0.0-0.1) 03/28/19 01:05 0.0 K/mm3 03/28/19 01:05 0.0 K/mm3 03/28/19 01:05 0.0 K/mm3 03/28/19 01:05 Blast Cells # 0.0 K/mm3 03/28/19 01:05 WBC Morphology Not Reportable 03/28/19 01:05 Hypersegmented Neuts Not Reportable 03/28/19 01:05 Hyposegmented Neuts Not Reportable 03/28/19 01:05 Hypogranular Neuts Not Reportable 03/28/19 01:05 Not Reportable 03/28/19 01:05 Not Reportable 03/28/19 01:05 Not Reportable 03/28/19 01:05 Not Reportable 03/28/19 01:05 Not Reportable 03/28/19 01:05 Not Reportable 03/28/19 01:05 Not Reportable 03/28/19 01:05 Not Reportable 03/28/19 01:05 Plt Clumps, EDTA Not Reportable 03/28/19 01:05 Not Reportable 03/28/19 01:05 Not Reportable 03/28/19 01:05 Not Reportable 03/28/19 01:05 Plt Morphology Comment Not Reportable 03/28/19 01:05 RBC Morphology Normal 03/28/19 01:05 Dimorphic RBCs Not Reportable 03/28/19 01:05 Not Reportable 03/28/19 01:05 Not Reportable 03/28/19 01:05 Not Reportable 03/28/19 01:05 Not Reportable 03/28/19 01:05 Not Reportable 03/28/19 01:05 Not Reportable 03/28/19 01:05 Not Reportable 03/28/19 01:05 Not Reportable 03/28/19 01:05 Not Reportable 03/28/19 01:05 Not Reportable 03/28/19 01:05 Not Reportable 03/28/19 01:05 Not Reportable 03/28/19 01:05 Not Reportable 03/28/19 01:05 Not Reportable 03/28/19 01:05 Not Reportable 03/28/19 01:05 Not Reportable 03/28/19 01:05 Not Reportable 03/28/19 01:05 Not Reportable 03/28/19 01:05 Not Reportable 03/28/19 01:05 Acanthocytes (Spur) Not Reportable 03/28/19 01:05 Rouleaux Not Reportable 03/28/19 01:05 Not Reportable 03/28/19 01:05 Not Reportable 03/28/19 01:05 Not Reportable 03/28/19 01:05 Not Reportable 03/28/19 01:05 Hem Pathologist Commnt No 03/28/19 01:05 PT 21.4 Sec. (12.2-14.9) H 03/27/19 14:04 INR 1.90 (0.87-1.13) H 03/27/19 14:04 APTT 103.8 Sec. (24.2-36.6) H* 03/29/19 22:30 POC ABG pH 7.411 (7.35-7.45) 03/25/19 05:40 POC ABG pCO2 33.3 (35-45) L 03/23/19 05:25 POC ABG pO2 83 (80-105) 03/25/19 05:40 POC ABG HCO3 17.7 (22-26 mml/L) 03/25/19 05:40 POC ABG Total CO2 19 (23-27mmol/L) 03/25/19 05:40 POC ABG O2 Sat 97 03/25/19 05:40 POC ABG Base Excess -7 ((-2) - (+3)mmol/L) 03/25/19 05:40 30 % 03/25/19 05:40 Sodium 140 mmol/L (137-145) 03/29/19 04:40 Potassium 3.7 mmol/L (3.6-5.0) 03/29/19 04:40 Chloride 102.9 mmol/L (98-107) 03/29/19 04:40 Carbon Dioxide 31 mmol/L (22-30) H 03/29/19 04:40 10 mmol/L 03/29/19 04:40 BUN 22 mg/dL (7-17) H 03/29/19 04:40 0.5 mg/dL (0.7-1.2) L 03/29/19 04:40 Estimated GFR > 60 ml/min 03/29/19 04:40 44 % 03/29/19 04:40 Glucose 80 mg/dL (65-100) 03/29/19 04:40 POC Glucose 96 (70-105) 03/30/19 05:45 4.2 % (4-6) 03/20/19 08:23 Lactic Acid 2.00 mmol/L (0.7-2.0) 03/23/19 04:50 Calcium 8.0 mg/dL (8.4-10.2) L 03/29/19 04:40 Phosphorus 2.00 mg/dL (2.5-4.5) L 03/20/19 17:50 Magnesium 1.70 mg/dL (1.7-2.3) 03/21/19 04:12 Iron 32 ug/dL (37-170) L 03/24/19 14:25 TIBC 75 mcg/dL (250-450) L 03/24/19 14:25 448.3 ng/mL (13.0-400.0) H 03/28/19 07:31 0.50 mg/dL (0.1-1.2) 03/29/19 04:40 0.3 mg/dL (0-0.2) H 03/27/19 13:31 0.2 mg/dL 03/27/19 13:31 AST 23 units/L (5-40) 03/29/19 04:40 ALT 9 units/L (7-56) 03/29/19 04:40 103 units/L (35-129) 03/29/19 04:40 1499 units/L (30-135) H 03/19/19 12:59 0.036 ng/mL (0.00-0.029) H 03/22/19 06:10 5.0 g/dL (6.3-8.2) L 03/29/19 04:40 1.4 g/dL (3.9-5) L 03/29/19 04:40 0.4 % 03/29/19 04:40 0.052 g/L (0.200-0.400) L 03/20/19 08:23 Triglycerides 72 mg/dL (2-149) 03/19/19 12:59 Cholesterol 61 mg/dL (50-199) 03/19/19 12:59 22 mg/dL (50-130) L 03/19/19 12:59 31 mg/dL (40-59) L 03/19/19 12:59 1.96 % 03/19/19 12:59 Vitamin B12 > 2000 pg/mL (211-911) H 03/25/19 10:11 18.61 ng/mL (7.3-26.0) 03/28/19 07:31 TSH 7.810 mlU/mL (0.270-4.200) H 03/22/19 06:10 Free T4 1.21 ng/dL (0.76-1.46) 03/22/19 06:10 PTH Intact 171.6 pg/mL (15-65) H 03/20/19 17:50 Yellow (Yellow) 03/19/19 12:47 Clear (Clear) 03/19/19 12:47 5.0 (5.0-7.0) 03/19/19 12:47 Ur Specific [place] 1.010 (1.003-1.030) 03/19/19 12:47 <15 mg/dl mg/dL (Negative) 03/19/19 12:47 50 mg/dL (Negative) 03/19/19 12:47 Neg mg/dL (Negative) 03/19/19 12:47 Lg (Negative) 03/19/19 12:47 Neg (Negative) 03/19/19 12:47 Neg (Negative) 03/19/19 12:47 < 2.0 mg/dL (<2.0) 03/19/19 12:47 Ur Leukocyte Esterase Neg (Negative) 03/19/19 12:47 2.0 /HPF (0.0-6.0) 03/19/19 12:47 2.0 /HPF (0.0-6.0) 03/19/19 12:47 U Epithel Cells (Auto) 1.0 /HPF (0-13.0) 03/19/19 12:47 1+ /HPF (Negative) 03/19/19 12:47 Hyaline Casts 3 /LPF 03/19/19 12:47 Few /HPF 03/19/19 12:47 None seen (None Seen) 03/20/19 16:40 53.7 mg/dL (0.1-20.0) H 03/20/19 16:40 3.8 mg/dL (0.1-34.0) 03/20/19 16:40 Microalb/Creat Ratio 70.7 ug/mg 03/20/19 16:40 116 mmol/L 03/20/19 16:40 36 mg/dL (5-11.8) H 03/20/19 16:40 Vancomycin Trough 23.0 ug/mL (5.0-20.0) H 03/27/19 09:04 Digoxin 2.6 ng/mL (0.9-2.0) H* 03/30/19 04:42 Salicylates < 0.3 mg/dL (2.8-20.0) L 03/19/19 12:59 Acetaminophen < 5.0 ug/mL (10.0-30.0) L 03/19/19 12:59 Blood Type O POSITIVE 03/24/19 11:30 Antibody Screen Negative 03/24/19 11:30 Crossmatch See Detail 03/24/19 11:30 Active Medications - Current Medications Current Medications: Generic Name Dose Route Start Last Admin Trade Name Freq PRN Reason Stop Dose Admin Acetaminophen 650 mg 03/24/19 23:48 03/29/19 21:36 Tylenol FEEDTUBE 650 mg Q6H PRN Administration Fever >101 Albuterol 2.5 mg 03/19/19 23:58 Proventil IH Q3HRT PRN Shortness Of Breath Albuterol/Ipratropium 1 ampul 03/20/19 02:00 03/30/19 01:49 Duoneb *Not For Prn Use* IH 1 ampul Q6HRT YUSUF Administration Amiodarone HCl 200 mg 03/22/19 22:00 03/29/19 21:37 Cordarone PO 200 mg BID YUSUF Administration Lipase/Protease/Amylase 1 each 03/22/19 16:03 Pancretobi Sargent 10,500 Unit FEEDTUBE PRN PRN For Clogged Feeding Tube Aspirin 81 mg 03/21/19 10:00 03/29/19 10:32 Baby Aspirin PO 81 mg DAILY YUSUF Administration Budesonide 0.5 mg 03/19/19 23:45 03/29/19 19:33 Pulmicort IH 0.5 mg Q12HRT YUSUF Administration Dextrose 50 ml 03/19/19 23:58 03/21/19 16:29 D50w (25gm) Syringe IV 50 ml PRN PRN Administration Hypoglycemia Famotidine 20 mg 03/22/19 10:00 03/29/19 21:36 Pepcid PO 20 mg BID YUSUF Administration Fentanyl 50 mcg 03/19/19 12:45 03/19/19 13:26 Sublimaze IV 50 mcg Q10MIN PRN Administration ANALGESIA Hydromorphone HCl 0.5 mg 03/19/19 23:58 Dilaudid IV Q3H PRN Pain , Severe (7-10) Hydrophilic Ointment 1 applic 03/19/19 12:45 Vaseline Lip Therapy TP Q2HR PRN Dry Lips Fentanyl Citrate 2,000 mcg in 100 mls @ 2.835 mls/hr 03/19/19 14:00 03/21/19 11:33 Fentanyl Drip Premix IV 0 mcg/kg/hr TITR YUSUF 0 mls/hr Titration Protocol 1 MCG/KG/HR Norepinephrine 4 mg in 250 mls @ 7.5 mls/hr 03/25/19 11:00 03/30/19 07:40 Levophed Drip 4 Mg/Ns 250 Ml IV 4 mcg/min TITR YUSUF 15 mls/hr Titration Protocol 2 MCG/MIN Meropenem 1,000 mg/ Sodium 100 mls @ 100 mls/hr 03/26/19 15:00 03/30/19 06:05 Chloride IV 100 mls/hr Q8HR YUSUF Administration Protocol Insulin Human Lispro 0 unit 03/20/19 00:00 03/30/19 06:05 Humalog SUB-Q Not Given Q6HR [facility] Protocol Metoclopramide HCl 5 mg 03/20/19 00:12 Reglan IV Q6H PRN Nausea And Vomiting Metoprolol Tartrate 2.5 mg 03/23/19 13:17 03/24/19 21:20 Lopressor IV 2.5 mg Q2HR PRN Administration HR >150 Multi-Ingred Cream/Lotion/Oil/Oint 1 applic 03/19/19 12:45 Artificial Tears Ophth Oint OU Q4HR PRN Dry Eye(s) Ondansetron HCl 4 mg 03/19/19 23:58 Zofran IV Q8H PRN Nausea And Vomiting Promethazine HCl 25 mg 03/19/19 23:58 Phenergan MS Q6H PRN N/V IF NPO AND NO IV ACCESS Simple Syrup 15 ml 03/22/19 16:03 03/23/19 07:21 Simple Syrup FEEDTUBE 15 ml PRN PRN Administration Hypoglycemia Simple Syrup 30 ml 03/22/19 16:03 Simple Syrup FEEDTUBE PRN PRN Hypoglycemia Sodium Bicarbonate 325 mg 03/22/19 16:03 Sodium Bicarbonate FEEDTUBE PRN PRN For Clogged Feeding Tube Sodium Chloride 10 ml 03/20/19 10:00 03/29/19 21:38 Sodium Chloride Flush Syringe 10 Ml IV 10 ml BID YUSUF Administration Sodium Chloride 10 ml 03/19/19 23:58 Sodium Chloride Flush Syringe 10 Ml IV PRN PRN LINE FLUSH Nutrition/Malnutrition Assess - Dietary Evaluation Nutrition/Malnutrition Findings: Nutrition Notes Start: 03/20/19 15:29 Freq: Status: Active Protocol: Document 03/24/19 15:45 RM (Rec: 03/24/19 15:47 RM [id number]) Nutrition Notes Initial or Follow up Reassessment Other Pertinent Diagnosis Hx CVA, dementia, R buttock skin tear Current Diet Vital 1.2 at 45 ml/hr Labs/Tests Reviewed Pertinent Medications Reviewed Height 5 ft 5 in Weight 62.1 kg [place] Body Weight (kg) 56.81 BMI 22.8 Subjective/Other Information Observed Vital 1.2 infusing at goal rate. Per nurse is pt tolerating TF. Percent of energy/protein needs met: 95%/100% Burn Absent Trauma Absent #1 Nutrition Diagnosis Inadequate oral intake Diagnosis Progress(for reassessment Continues documentation) Is patient on ventilator? Yes Is Patient Ambulatory and/or Out of Bed No REE-([facility]-confined to bed) 1370.316 Calculation Used for Recommendations [facility] Additional Notes Protein Needs: 75-124g (1.2-2g /kg) Fluid Needs: 1 ml/kcal Nutrition Intervention Nutrition Support: Vital 1.2 at 45 ml/hr Water flush of 100 mls 4 q hrs Kcal 1,296 Protein (gm) 81 Fluid (mL) 876 Goal #1 TF tolerance Goal #2 Continue to meet at least 80% of calorie and protein needs via TF Anticipated Discharge Needs: Unable to determine at this time Follow-Up By: 03/31/19 Additional Comments Follow for TF tolerance
[2019-03-30] MEDS: PULMICORT IH SCH ×2 (08:14→20:01)
[2019-03-30] MEDS: TYLENOL FEEDTUBE PRN ×2 (10:11→22:25)
[2019-03-30] MEDS: CORDARONE PO SCH ×2 (10:12→22:25)
[2019-03-30] MEDS: BABY ASPIRIN PO SCH (10:14)
[2019-03-30] MEDS: PEPCID PO SCH ×2 (10:14→22:25)
[2019-03-30] MEDS: SODIUM CHLORIDE FLUSH SYRINGE 10 ML IV SCH ×2 (10:15→22:27)
[2019-03-30] MEDS: LEVOPHED DRIP 4 MG/NS 250 ML 4 MG/250 ML BAG IV SCH ×2 (11:38→17:45)
[2019-03-30] MEDS ORDERED: VANCOMYCIN PHARMACY TO DOSE IV SCH (12:00)
--- NOTE | 2019-03-30 12:24 | Progress Note ---
Assessment and Plan Acute respiratory failure CXR showing volume overload improvement Sepsis Pneumonia Acute kidney failure Paroxysmal Atrial fibrillation currently in sinus rhythm on amiodarone Digoxin toxicity -digoxin discontinued Altered mental status Anemia and thrombocytopenia Severe anemia -s/p transfusion of PRBCs Acute Right common femoral DVT and right IJ vein thrombosis argatroban discontinued due to severe anemia Echocardiogram shows a normal left ventricular systolic function, ejection fraction 60-65%. Continue medical therapy for paroxysmal atrial fibrillation. Otherwise, conservative cardiac management. Subjective Date of service: 03/30/19 Principal diagnosis: low plt Interval history: Patient remains intubated on the vent. Now AND/DNR status. Objective Vital Signs Temp Pulse Pulse Pulse Resp Resp BP 03/30/19 11:45 129 H 21 146/68 03/30/19 11:42 128 H 146/68 03/30/19 11:30 122 H 19 129/45 03/30/19 11:15 123 H 15 107/32 03/30/19 11:07 102.9 F H 03/30/19 11:00 123 H 19 114/38 03/30/19 10:45 123 H 24 118/39 03/30/19 10:31 102.1 F H 03/30/19 10:30 131 H 20 129/44 03/30/19 10:21 127 H 15 121/41 03/30/19 10:15 102.1 F H 03/30/19 10:11 127 H 17 124/42 03/30/19 10:01 102.8 F H 03/30/19 10:00 129 H 16 124/42 03/30/19 09:51 131 H 13 133/39 03/30/19 09:45 132 H 17 133/39 03/30/19 09:30 133 H 14 146/46 03/30/19 09:15 132 H 11 L 141/48 03/30/19 09:00 133 H 17 144/42 03/30/19 08:45 133 H 14 152/51 03/30/19 08:30 125 H 11 L 138/48 03/30/19 08:15 126 H 16 127/40 03/30/19 08:00 100.2 F H 124 H 126 H 124 H 20 20 133/40 03/30/19 07:45 124 H 17 114/39 03/30/19 07:30 123 H 18 132/35 03/30/19 07:15 124 H 16 108/35 03/30/19 07:00 123 H 14 116/36 03/30/19 06:45 125 H 17 112/41 03/30/19 06:30 124 H 18 117/39 03/30/19 06:15 123 H 18 121/38 03/30/19 06:00 123 H 17 112/35 03/30/19 05:45 124 H 16 113/35 03/30/19 05:30 124 H 17 109/40 03/30/19 05:15 123 H 22 116/34 03/30/19 05:00 123 H 20 123/31 03/30/19 04:45 129 H 18 113/46 03/30/19 04:30 124 H 18 113/46 03/30/19 04:15 125 H 18 125/46 03/30/19 04:00 101.1 F H 126 H 130 H 18 122/45 03/30/19 03:45 125 H 16 123/46 03/30/19 03:30 125 H 19 117/47 03/30/19 03:20 125 H 116/43 03/30/19 03:15 124 H 15 116/43 03/30/19 03:00 124 H 16 102/46 03/30/19 02:45 126 H 15 112/47 03/30/19 02:30 125 H 16 114/44 03/30/19 02:15 125 H 16 105/40 03/30/19 02:00 126 H 126 H 15 18 104/41 03/30/19 01:45 125 H 16 87/39 03/30/19 01:30 124 H 27 H 91/38 03/30/19 01:15 125 H 18 94/39 03/30/19 01:00 125 H 22 93/42 03/30/19 00:45 127 H 19 94/41 03/30/19 00:30 130 H 29 H 105/54 03/30/19 00:15 131 H 19 90/48 03/30/19 00:00 129 H 126 H 20 87/45 03/29/19 23:45 129 H 18 90/48 03/29/19 23:44 101.4 F H 03/29/19 23:35 131 H 102/57 03/29/19 23:31 133 H 28 H 102/57 03/29/19 23:30 134 H 23 102/57 03/29/19 23:16 133 H 31 H 142/58 03/29/19 23:15 133 H 30 H 142/58 03/29/19 23:09 134 H 27 H 142/58 03/29/19 23:00 138 H 30 H 142/58 03/29/19 22:46 136 H 25 H 153/57 03/29/19 22:30 127 H 21 131/47 03/29/19 22:15 130 H 25 H 149/48 03/29/19 22:00 129 H 26 H 158/47 03/29/19 21:45 133 H 30 H 163/61 03/29/19 21:30 130 H 24 161/58 03/29/19 21:15 131 H 24 158/57 03/29/19 21:00 129 H 26 H 161/61 03/29/19 20:45 128 H 22 149/60 03/29/19 20:30 127 H 22 153/58 03/29/19 20:15 128 H 19 143/58 03/29/19 20:00 101.0 F H 124 H 124 H 30 H 143/62 03/29/19 19:59 128 H 23 03/29/19 19:45 127 H 15 154/60 03/29/19 19:31 126 H 145/71 03/29/19 19:30 125 H 28 H 145/71 03/29/19 19:15 125 H 15 152/59 03/29/19 19:00 122 H 19 145/61 03/29/19 18:45 121 H 32 H 139/58 03/29/19 18:30 126 H 28 H 136/64 03/29/19 18:16 122 H 20 140/50 03/29/19 18:00 119 H 22 115/49 03/29/19 17:46 116 H 22 142/50 03/29/19 17:30 115 H 23 133/53 03/29/19 17:15 115 H 22 123/39 03/29/19 17:00 113 H 21 111/44 03/29/19 16:45 113 H 25 H 123/45 03/29/19 16:30 113 H 28 H 129/45 03/29/19 16:20 112 H 120/38 07/31/19 16:15 112 H 22 120/38 03/29/19 16:00 98.7 F 110 H 110 H 19 116/44 03/29/19 15:45 110 H 19 111/38 03/29/19 15:30 112 H 22 125/42 03/29/19 15:15 110 H 17 115/37 03/29/19 15:00 113 H 22 122/44 03/29/19 14:45 113 H 21 120/45 03/29/19 14:30 113 H 27 H 126/42 03/29/19 14:15 111 H 19 113/49 03/29/19 14:10 113 H 20 03/29/19 14:00 111 H 18 105/47 03/29/19 13:45 113 H 15 123/52 03/29/19 13:30 110 H 17 116/47 03/29/19 13:15 113 H 18 103/50 03/29/19 13:00 111 H 20 98/42 03/29/19 12:45 111 H 15 80/41 03/29/19 12:30 114 H 14 95/44 Pulse Ox 03/30/19 11:45 99 03/30/19 11:42 100 03/30/19 11:30 100 03/30/19 11:15 99 03/30/19 11:07 03/30/19 11:00 100 03/30/19 10:45 100 03/30/19 10:31 03/30/19 10:30 100 03/30/19 10:21 100 03/30/19 10:15 03/30/19 10:11 100 03/30/19 10:01 03/30/19 10:00 99 03/30/19 09:51 98 03/30/19 09:45 98 03/30/19 09:30 98 03/30/19 09:15 99 03/30/19 09:00 99 03/30/19 08:45 97 03/30/19 08:30 100 03/30/19 08:15 100 03/30/19 08:00 100 03/30/19 07:45 100 03/30/19 07:30 100 03/30/19 07:15 100 03/30/19 07:00 100 03/30/19 06:45 100 03/30/19 06:30 100 03/30/19 06:15 100 03/30/19 06:00 100 03/30/19 05:45 100 03/30/19 05:30 100 03/30/19 05:15 100 03/30/19 05:00 99 03/30/19 04:45 93 03/30/19 04:30 99 03/30/19 04:15 98 03/30/19 04:00 98 03/30/19 03:45 98 03/30/19 03:30 98 03/30/19 03:20 100 03/30/19 03:15 98 03/30/19 03:00 98 03/30/19 02:45 98 03/30/19 02:30 98 03/30/19 02:15 98 03/30/19 02:00 96 03/30/19 01:45 98 03/30/19 01:30 98 03/30/19 01:15 97 03/30/19 01:00 97 03/30/19 00:45 97 03/30/19 00:30 98 03/30/19 00:15 97 03/30/19 00:00 96 03/29/19 23:45 96 03/29/19 23:44 03/29/19 23:35 97 03/29/19 23:31 97 03/29/19 23:30 95 03/29/19 23:16 97 03/29/19 23:15 96 03/29/19 23:09 97 03/29/19 23:00 95 03/29/19 22:46 94 03/29/19 22:30 99 03/29/19 22:15 99 03/29/19 22:00 100 03/29/19 21:45 98 03/29/19 21:30 99 03/29/19 21:15 98 03/29/19 21:00 99 03/29/19 20:45 99 03/29/19 20:30 99 03/29/19 20:15 100 03/29/19 20:00 100 03/29/19 19:59 03/29/19 19:45 99 03/29/19 19:31 100 03/29/19 19:30 100 03/29/19 19:15 99 03/29/19 19:00 100 03/29/19 18:45 100 03/29/19 18:30 99 03/29/19 18:16 95 03/29/19 18:00 99 03/29/19 17:46 97 03/29/19 17:30 100 03/29/19 17:15 100 03/29/19 17:00 99 03/29/19 16:45 100 03/29/19 16:30 100 03/29/19 16:20 100 03/29/19 16:15 100 03/29/19 16:00 100 03/29/19 15:45 100 03/29/19 15:30 100 03/29/19 15:15 100 03/29/19 15:00 100 03/29/19 14:45 100 03/29/19 14:30 100 03/29/19 14:15 100 03/29/19 14:10 03/29/19 14:00 98 03/29/19 13:45 99 03/29/19 13:30 03/29/19 13:15 100 03/29/19 13:00 100 03/29/19 12:45 99 03/29/19 12:30 - Physical Examination General: Other (intubated on the vent) Neck: Positive: neck supple Cardiac: Positive: Tachycardia - Labs and Meds Coagulation 03/29/19 03/29/19 03/29/19 Range/Units 16:20 21:10 22:30 APTT 61.5 H* 112.6 H* 103.8 H* (24.2-36.6) Sec. 03/30/19 Range/Units 11:15 APTT 50.5 H (24.2-36.6) Sec. CBC 03/30/19 Range/Units 04:42 Hgb 6.4 L (10.1-14.3) gm/dl Hct 18.9 L* (30.3-42.9) % Plt Count 146 (140-440) K/mm3
--- NOTE | 2019-03-30 12:55 | Progress Note ---
Assessment and Plan Cultures/ID related labs: 03/27 tracheal aspirate - heavy neutrophils, usual resp maday Blood culture 03/19/2019 negative. Urine culture 03/19/2019 negative. 03/23/2019 tracheal aspirate culture: Usual resp maday Assessment: 73 y/o female with history of dementia, prior CVA, on home hospice admitted on 03/20/2019 brought by EMS due to altered mental status: 1) Sepsis with septic shock: source pneumonia but persistent fever. UA negative . Blood culture 03/19/2019 no growth. Urine culture 03/19/2019 negative. Would continue meropenem for now and monitor for improvement, likely for 8 day course. Resp culture sterilized. 2) Bilateral pneumonia: ? aspiration v/s CAP. Trach aspirate cultures usual resp maday, <25 WBC. 3) Acute encephalopathy: CT head without contrast shows encephalomalacia in the entire right cerebral hemisphere, volume loss in the left cerebral hemisphere, no acute parenchymal lesion in the brain. 4) Acute respiratory failure: remains intubated, on the vent. Responsive to commands today. 5) HA: improved. 6) Persistent fevers - I am concerned these are too high to be fully explained by the DVTs, as such I will start vancomycin today to add further gram positive coverage. It is possible the fevers are not infective, however without an alternate etiology I feel we should cover broadly. 7) DVTs - DVT of RIJ at catheter site as well as R common femoral, and a superficial thrombus in R greater saphenous Will continue to follow along with you. Recommendations: continue IV Meropenem 1 gm q8 hrs Added vancomycin Guarded prognosis, was on home hospice prior to admission Sandra Johns MD [facility] ([facility] C: [phone] O: [phone] F: [phone] Subjective Date of service: 03/30/19 Principal diagnosis: low plt Interval history: Remains intubated. Weakly responsive to commands. Fevers worsening. Objective - Exam Narrative Exam: Constitutional: asleep, no distress, weakly following commands Head, Ears, Nose: Normocephalic, atraumatic. External ears, nose normal Eyes: Conjunctivae/corneas clear. No icterus. No ptosis. Neck: Supple, no meningeal signs Oral: Intubated Cardiovascular: S1, S2 normal. Normal rhythm Respiratory: Good air entry, clear to auscultation bilaterally GI: Soft, non-tender; bowel sounds normal. No peritoneal signs Musculoskeletal: No pedal edema, Skin: No rash or abscess Hem/Lymphatic: No palpable cervical or supraclavicular nodes. No lymphangitis Psych: no agitation Neurological: weak, 3/5 strength extremities. Restrained - Constitutional Vitals: Vital Signs Temp Pulse Resp BP Pulse Ox 100.9 F H 117 H 22 129/47 100 03/30/19 12:15 03/30/19 12:30 03/30/19 12:30 03/30/19 12:30 03/30/19 12:30 Temperature -Last 24 Hours Temperature 100.9 F Temperature 100.9 F Temperature 100.9 F Temperature 102.9 F Temperature 102.1 F Temperature 102.1 F Temperature 102.8 F Temperature 100.2 F Temperature 101.1 F Temperature 101.4 F Temperature 101.0 F Temperature 98.7 F - Labs CBC & Chem 7: 03/30/19 04:42 03/29/19 04:40 Labs: Abnormal lab results 03/29/19 03/29/19 03/29/19 Range/Units 16:20 16:20 21:10 Hgb (10.1-14.3) gm/dl Hct (30.3-42.9) % APTT 61.5 H* 112.6 H* (24.2-36.6) Sec. POC Glucose (70-105) Digoxin 2.6 H* (0.9-2.0) ng/mL Crossmatch 03/29/19 03/30/19 03/30/19 Range/Units 22:30 04:42 04:42 Hgb 6.4 L (10.1-14.3) gm/dl Hct 18.9 L* (30.3-42.9) % APTT 103.8 H* (24.2-36.6) Sec. POC Glucose (70-105) Digoxin 2.6 H* (0.9-2.0) ng/mL Crossmatch 03/30/19 03/30/19 03/30/19 Range/Units 07:04 11:15 11:36 Hgb (10.1-14.3) gm/dl Hct (30.3-42.9) % APTT 50.5 H (24.2-36.6) Sec. POC Glucose 129 H (70-105) Digoxin (0.9-2.0) ng/mL Crossmatch See Detail
[2019-03-30] MEDS: VANCOMYCIN 1,250 MG in NACL 0.9% 250ML 250 ML IV SCH (13:15)
--- NOTE | 2019-03-30 14:26 | Progress Note ---
Assessment and Plan 73 y/o female found unresponsive now intubated and septic, etiology thought secondary to pneumonia with anemia and thrombocytopenia, and persistent fevers found to have multiple DVT's. 1. Anticoagulation stopped given drop in HgB but I have ordered a stat CBC and repeat CBC at 2000 tonight. Follow up any new heme recs 2. Continue IV abx therapy as per ID. Agree with adding Gram positive coverage with Vanc 3. Long discussion with daughter Caterina over the phone (03/29). Will attempt to meet with her tomorrow to discuss long term care administrator goals of care. Patient was on home hospice not for a terminal illness (seizures) but the daughter needed more help which she could not get from any other services. The patient has essentially been bed bound for the last several years but this is the sickest she has been since the strokes. 4. Will attempt to meet with daughter in person to discuss intermediate goals of care. CCT 31 minutes. Subjective Date of service: 03/30/19 Principal diagnosis: low plt Interval history: Unfortunately fever curve is trending back up. Spiked again this am. Reviewed ID note. Also HgB was low this am. Was not repeated though. Transfused blood but I do not see repeat h/H. Patient is now and AND. IMS spoke with daughter today over the phone. Objective Vital Signs - 12hr 03/30/19 03/30/19 03/30/19 02:30 02:45 03:00 Temperature Pulse Rate 125 H 126 H 124 H Pulse Rate [ Anterior Bilateral Throughout] Pulse Rate [ From Monitor] Respiratory 16 15 16 Rate Respiratory Rate [Anterior Bilateral Throughout] Blood Pressure 114/44 112/47 102/46 O2 Sat by Pulse 98 98 98 Oximetry 03/30/19 03/30/19 03/30/19 03:15 03:20 03:30 Temperature Pulse Rate 124 H 125 H 125 H Pulse Rate [ Anterior Bilateral Throughout] Pulse Rate [ From Monitor] Respiratory 15 19 Rate Respiratory Rate [Anterior Bilateral Throughout] Blood Pressure 116/43 116/43 117/47 O2 Sat by Pulse 98 100 98 Oximetry 03/30/19 03/30/19 03/30/19 03:45 04:00 04:15 Temperature 101.1 F H Pulse Rate 125 H 126 H 125 H Pulse Rate [ Anterior Bilateral Throughout] Pulse Rate [ 130 H From Monitor] Respiratory 16 18 18 Rate Respiratory Rate [Anterior Bilateral Throughout] Blood Pressure 123/46 122/45 125/46 O2 Sat by Pulse 98 98 98 Oximetry 03/30/19 03/30/19 03/30/19 04:30 04:45 05:00 Temperature Pulse Rate 124 H 129 H 123 H Pulse Rate [ Anterior Bilateral Throughout] Pulse Rate [ From Monitor] Respiratory 18 18 20 Rate Respiratory Rate [Anterior Bilateral Throughout] Blood Pressure 113/46 113/46 123/31 O2 Sat by Pulse 99 93 99 Oximetry 03/30/19 03/30/19 03/30/19 05:15 05:30 05:45 Temperature Pulse Rate 123 H 124 H 124 H Pulse Rate [ Anterior Bilateral Throughout] Pulse Rate [ From Monitor] Respiratory 22 17 16 Rate Respiratory Rate [Anterior Bilateral Throughout] Blood Pressure 116/34 109/40 113/35 O2 Sat by Pulse 100 100 100 Oximetry 03/30/19 03/30/19 03/30/19 06:00 06:15 06:30 Temperature Pulse Rate 123 H 123 H 124 H Pulse Rate [ Anterior Bilateral Throughout] Pulse Rate [ From Monitor] Respiratory 17 18 18 Rate Respiratory Rate [Anterior Bilateral Throughout] Blood Pressure 112/35 121/38 117/39 O2 Sat by Pulse 100 100 100 Oximetry 03/30/19 03/30/19 03/30/19 06:45 07:00 07:15 Temperature Pulse Rate 125 H 123 H 124 H Pulse Rate [ Anterior Bilateral Throughout] Pulse Rate [ From Monitor] Respiratory 17 14 16 Rate Respiratory Rate [Anterior Bilateral Throughout] Blood Pressure 112/41 116/36 108/35 O2 Sat by Pulse 100 100 100 Oximetry 03/30/19 03/30/19 03/30/19 07:30 07:45 08:00 Temperature 100.2 F H Pulse Rate 123 H 124 H 124 H Pulse Rate [ 126 H Anterior Bilateral Throughout] Pulse Rate [ 124 H From Monitor] Respiratory 18 17 20 Rate Respiratory 20 Rate [Anterior Bilateral Throughout] Blood Pressure 132/35 114/39 133/40 O2 Sat by Pulse 100 100 100 Oximetry 03/30/19 03/30/19 03/30/19 08:15 08:30 08:45 Temperature Pulse Rate 126 H 125 H 133 H Pulse Rate [ Anterior Bilateral Throughout] Pulse Rate [ From Monitor] Respiratory 16 11 L 14 Rate Respiratory Rate [Anterior Bilateral Throughout] Blood Pressure 127/40 138/48 152/51 O2 Sat by Pulse 100 100 97 Oximetry 03/30/19 03/30/19 03/30/19 09:00 09:15 09:30 Temperature Pulse Rate 133 H 132 H 133 H Pulse Rate [ Anterior Bilateral Throughout] Pulse Rate [ From Monitor] Respiratory 17 11 L 14 Rate Respiratory Rate [Anterior Bilateral Throughout] Blood Pressure 144/42 141/48 146/46 O2 Sat by Pulse 99 99 98 Oximetry 03/30/19 03/30/19 03/30/19 09:45 09:51 10:00 Temperature Pulse Rate 132 H 131 H 129 H Pulse Rate [ Anterior Bilateral Throughout] Pulse Rate [ From Monitor] Respiratory 17 13 16 Rate Respiratory Rate [Anterior Bilateral Throughout] Blood Pressure 133/39 133/39 124/42 O2 Sat by Pulse 98 98 99 Oximetry 03/30/19 03/30/19 03/30/19 10:01 10:11 10:15 Temperature 102.8 F H 102.1 F H Pulse Rate 127 H Pulse Rate [ Anterior Bilateral Throughout] Pulse Rate [ From Monitor] Respiratory 17 Rate Respiratory Rate [Anterior Bilateral Throughout] Blood Pressure 124/42 O2 Sat by Pulse 100 Oximetry 03/30/19 03/30/19 03/30/19 10:21 10:30 10:31 Temperature 102.1 F H Pulse Rate 127 H 131 H Pulse Rate [ Anterior Bilateral Throughout] Pulse Rate [ From Monitor] Respiratory 15 20 Rate Respiratory Rate [Anterior Bilateral Throughout] Blood Pressure 121/41 129/44 O2 Sat by Pulse 100 100 Oximetry 03/30/19 03/30/19 03/30/19 10:45 11:00 11:07 Temperature 102.9 F H Pulse Rate 123 H 123 H Pulse Rate [ Anterior Bilateral Throughout] Pulse Rate [ From Monitor] Respiratory 24 19 Rate Respiratory Rate [Anterior Bilateral Throughout] Blood Pressure 118/39 114/38 O2 Sat by Pulse 100 100 Oximetry 03/30/19 03/30/19 03/30/19 11:15 11:30 11:42 Temperature Pulse Rate 123 H 122 H 128 H Pulse Rate [ Anterior Bilateral Throughout] Pulse Rate [ From Monitor] Respiratory 15 19 Rate Respiratory Rate [Anterior Bilateral Throughout] Blood Pressure 107/32 129/45 146/68 O2 Sat by Pulse 99 100 100 Oximetry 03/30/19 03/30/19 03/30/19 11:45 11:51 12:00 Temperature 100.9 F H Pulse Rate 129 H 122 H 120 H Pulse Rate [ Anterior Bilateral Throughout] Pulse Rate [ 125 H From Monitor] Respiratory 21 17 20 Rate Respiratory Rate [Anterior Bilateral Throughout] Blood Pressure 146/68 146/68 126/41 O2 Sat by Pulse 99 100 100 Oximetry 03/30/19 03/30/19 03/30/19 12:11 12:15 12:30 Temperature 100.9 F H Pulse Rate 119 H 117 H Pulse Rate [ Anterior Bilateral Throughout] Pulse Rate [ From Monitor] Respiratory 18 22 Rate Respiratory Rate [Anterior Bilateral Throughout] Blood Pressure 126/41 129/47 O2 Sat by Pulse 100 100 Oximetry 03/30/19 03/30/19 12:45 13:00 Temperature Pulse Rate 117 H 114 H Pulse Rate [ Anterior Bilateral Throughout] Pulse Rate [ From Monitor] Respiratory 17 13 Rate Respiratory Rate [Anterior Bilateral Throughout] Blood Pressure 126/49 130/49 O2 Sat by Pulse 100 100 Oximetry Constitutional: lethargic, other (intubated on vent responds to name. follows commands) Eyes: non-icteric ENT: other (intubated ) Neck: supple Effort: mildly labored, other (poor efforts ) Ascultation: Bilateral: diminished breath sounds (grossly clear ), rales (coarse bilat ) Percussion: Bilateral: not dull, dull Cardiovascular: other (tachy AF ) Gastrointestinal: hypoactive bowel sounds Integumentary: normal Extremities: anasarca Neurologic: unable to assess CBC and BMP: 03/30/19 04:42 03/29/19 04:40 ABG, PT/INR, D-dimer: ABG POC ABG pH 7.411 (7.35-7.45) 03/25/19 05:40 POC ABG pO2 83 (80-105) 03/25/19 05:40 POC ABG HCO3 17.7 (22-26 mml/L) 03/25/19 05:40 POC ABG Total CO2 19 (23-27mmol/L) 03/25/19 05:40 POC ABG O2 Sat 97 03/25/19 05:40 PT/INR, D-dimer PT 21.4 Sec. (12.2-14.9) H 03/27/19 14:04 INR 1.90 (0.87-1.13) H 03/27/19 14:04 Abnormal lab findings: Abnormal Labs 03/19/19 03/19/19 03/19/19 12:59 12:59 12:59 WBC RBC 3.44 L Hgb Hct MCV 101 H MCH 34 H MCHC RDW Plt Count 98 L Lymph % (Auto) [place] % (Auto) Lymph # [place] # Seg Neutrophils % Seg Neuts % (Manual) 11.0 L Lymphocytes % (Manual) Monocytes % (Manual) 10.0 H Eosinophils % (Manual) Nucleated RBC % 1.0 H Seg Neutrophils # Seg Neutrophils # Man 0.6 L Lymphocytes # (Manual) Monocytes # (Manual) Eosinophils # (Manual) PT INR APTT POC ABG pH POC ABG pCO2 POC ABG pO2 Sodium 149 H Potassium Chloride 109.4 H Carbon Dioxide BUN 51 H Creatinine 3.2 H Glucose 58 L POC Glucose Lactic Acid 7.60 H* Calcium 7.8 L Phosphorus Magnesium 1.60 L Iron TIBC Ferritin Direct Bilirubin AST 75 H Total Creatine Kinase 1499 H Troponin T 0.109 H* Total Protein 5.2 L Albumin 1.7 L Prealbumin LDL Cholesterol Direct 22 L HDL Cholesterol 31 L Vitamin B12 TSH PTH Intact Urine Creatinine Urine Total Protein Vancomycin Trough Digoxin Salicylates Acetaminophen Crossmatch 03/19/19 03/19/19 03/19/19 12:59 12:59 14:48 WBC RBC Hgb Hct MCV MCH MCHC RDW Plt Count Lymph % (Auto) [place] % (Auto) Lymph # [place] # Seg Neutrophils % Seg Neuts % (Manual) Lymphocytes % (Manual) Monocytes % (Manual) Eosinophils % (Manual) Nucleated RBC % Seg Neutrophils # Seg Neutrophils # Man Lymphocytes # (Manual) Monocytes # (Manual) Eosinophils # (Manual) PT INR APTT POC ABG pH POC ABG pCO2 POC ABG pO2 Sodium Potassium Chloride Carbon Dioxide BUN Creatinine Glucose POC Glucose 44 L Lactic Acid Calcium Phosphorus Magnesium Iron TIBC Ferritin Direct Bilirubin AST Total Creatine Kinase Troponin T Total Protein Albumin Prealbumin LDL Cholesterol Direct HDL Cholesterol Vitamin B12 TSH PTH Intact Urine Creatinine Urine Total Protein Vancomycin Trough Digoxin Salicylates < 0.3 L Acetaminophen < 5.0 L Crossmatch 03/19/19 03/19/19 03/19/19 15:33 15:52 16:26 WBC RBC Hgb Hct MCV MCH MCHC RDW Plt Count Lymph % (Auto) [place] % (Auto) Lymph # [place] # Seg Neutrophils % Seg Neuts % (Manual) Lymphocytes % (Manual) Monocytes % (Manual) Eosinophils % (Manual) Nucleated RBC % Seg Neutrophils # Seg Neutrophils # Man Lymphocytes # (Manual) Monocytes # (Manual) Eosinophils # (Manual) PT INR APTT POC ABG pH POC ABG pCO2 POC ABG pO2 Sodium Potassium Chloride Carbon Dioxide BUN Creatinine Glucose POC Glucose 228 H 231 H Lactic Acid Calcium Phosphorus Magnesium Iron TIBC Ferritin Direct Bilirubin AST Total Creatine Kinase Troponin T Total Protein Albumin Prealbumin LDL Cholesterol Direct HDL Cholesterol Vitamin B12 TSH PTH Intact Urine Creatinine 31.8 H Urine Total Protein Vancomycin Trough Digoxin Salicylates Acetaminophen Crossmatch 03/19/19 03/19/19 03/19/19 16:38 17:14 18:43 WBC RBC Hgb Hct MCV MCH MCHC RDW Plt Count Lymph % (Auto) [place] % (Auto) Lymph # [place] # Seg Neutrophils % Seg Neuts % (Manual) Lymphocytes % (Manual) Monocytes % (Manual) Eosinophils % (Manual) Nucleated RBC % Seg Neutrophils # Seg Neutrophils # Man Lymphocytes # (Manual) Monocytes # (Manual) Eosinophils # (Manual) PT INR APTT POC ABG pH 7.196 L POC ABG pCO2 30.8 L POC ABG pO2 Sodium Potassium Chloride Carbon Dioxide BUN Creatinine Glucose POC Glucose 235 H Lactic Acid 8.10 H* Calcium Phosphorus Magnesium Iron TIBC Ferritin Direct Bilirubin AST Total Creatine Kinase Troponin T Total Protein Albumin Prealbumin LDL Cholesterol Direct HDL Cholesterol Vitamin B12 TSH PTH Intact Urine Creatinine Urine Total Protein Vancomycin Trough Digoxin Salicylates Acetaminophen Crossmatch 03/19/19 03/19/19 03/19/19 18:52 20:00 20:56 WBC RBC Hgb Hct MCV MCH MCHC RDW Plt Count Lymph % (Auto) [place] % (Auto) Lymph # [place] # Seg Neutrophils % Seg Neuts % (Manual) Lymphocytes % (Manual) Monocytes % (Manual) Eosinophils % (Manual) Nucleated RBC % Seg Neutrophils # Seg Neutrophils # Man Lymphocytes # (Manual) Monocytes # (Manual) Eosinophils # (Manual) PT INR APTT POC ABG pH POC ABG pCO2 POC ABG pO2 Sodium Potassium Chloride Carbon Dioxide BUN Creatinine Glucose POC Glucose 240 H 117 H Lactic Acid 5.90 H* Calcium Phosphorus Magnesium Iron TIBC Ferritin Direct Bilirubin AST Total Creatine Kinase Troponin T Total Protein Albumin Prealbumin LDL Cholesterol Direct HDL Cholesterol Vitamin B12 TSH PTH Intact Urine Creatinine Urine Total Protein Vancomycin Trough Digoxin Salicylates Acetaminophen Crossmatch 03/19/19 03/19/19 03/19/19 21:19 22:07 23:00 WBC RBC Hgb Hct MCV MCH MCHC RDW Plt Count Lymph % (Auto) [place] % (Auto) Lymph # [place] # Seg Neutrophils % Seg Neuts % (Manual) Lymphocytes % (Manual) Monocytes % (Manual) Eosinophils % (Manual) Nucleated RBC % Seg Neutrophils # Seg Neutrophils # Man Lymphocytes # (Manual) Monocytes # (Manual) Eosinophils # (Manual) PT INR APTT POC ABG pH POC ABG pCO2 POC ABG pO2 Sodium Potassium Chloride Carbon Dioxide BUN Creatinine Glucose POC Glucose < 40 L 136 H Lactic Acid 6.10 H* Calcium Phosphorus Magnesium Iron TIBC Ferritin Direct Bilirubin AST Total Creatine Kinase Troponin T Total Protein Albumin Prealbumin LDL Cholesterol Direct HDL Cholesterol Vitamin B12 TSH PTH Intact Urine Creatinine Urine Total Protein Vancomycin Trough Digoxin Salicylates Acetaminophen Crossmatch 03/20/19 03/20/19 03/20/19 00:05 01:38 02:23 WBC RBC Hgb Hct MCV MCH MCHC RDW Plt Count Lymph % (Auto) [place] % (Auto) Lymph # [place] # Seg Neutrophils % Seg Neuts % (Manual) Lymphocytes % (Manual) Monocytes % (Manual) Eosinophils % (Manual) Nucleated RBC % Seg Neutrophils # Seg Neutrophils # Man Lymphocytes # (Manual) Monocytes # (Manual) Eosinophils # (Manual) PT INR APTT POC ABG pH POC ABG pCO2 POC ABG pO2 Sodium Potassium Chloride Carbon Dioxide BUN Creatinine Glucose POC Glucose 68 L 153 H 127 H Lactic Acid Calcium Phosphorus Magnesium Iron TIBC Ferritin Direct Bilirubin AST Total Creatine Kinase Troponin T Total Protein Albumin Prealbumin LDL Cholesterol Direct HDL Cholesterol Vitamin B12 TSH PTH Intact Urine Creatinine Urine Total Protein Vancomycin Trough Digoxin Salicylates Acetaminophen Crossmatch 03/20/19 03/20/19 03/20/19 03:12 04:31 04:41 WBC RBC Hgb Hct MCV MCH MCHC RDW Plt Count Lymph % (Auto) [place] % (Auto) Lymph # [place] # Seg Neutrophils % Seg Neuts % (Manual) Lymphocytes % (Manual) Monocytes % (Manual) Eosinophils % (Manual) Nucleated RBC % Seg Neutrophils # Seg Neutrophils # Man Lymphocytes # (Manual) Monocytes # (Manual) Eosinophils # (Manual) PT INR APTT POC ABG pH POC ABG pCO2 POC ABG pO2 53 L 65 L Sodium Potassium Chloride Carbon Dioxide BUN Creatinine Glucose POC Glucose 109 H Lactic Acid Calcium Phosphorus Magnesium Iron TIBC Ferritin Direct Bilirubin AST Total Creatine Kinase Troponin T Total Protein Albumin Prealbumin LDL Cholesterol Direct HDL Cholesterol Vitamin B12 TSH PTH Intact Urine Creatinine Urine Total Protein Vancomycin Trough Digoxin Salicylates Acetaminophen Crossmatch 03/20/19 03/20/19 03/20/19 05:50 07:29 08:14 WBC RBC Hgb Hct MCV MCH MCHC RDW Plt Count Lymph % (Auto) [place] % (Auto) Lymph # [place] # Seg Neutrophils % Seg Neuts % (Manual) Lymphocytes % (Manual) Monocytes % (Manual) Eosinophils % (Manual) Nucleated RBC % Seg Neutrophils # Seg Neutrophils # Man Lymphocytes # (Manual) Monocytes # (Manual) Eosinophils # (Manual) PT INR APTT POC ABG pH POC ABG pCO2 POC ABG pO2 Sodium Potassium Chloride Carbon Dioxide BUN Creatinine Glucose 61 L POC Glucose 47 L 153 H Lactic Acid Calcium Phosphorus Magnesium 1.60 L Iron TIBC Ferritin Direct Bilirubin AST Total Creatine Kinase Troponin T Total Protein Albumin Prealbumin LDL Cholesterol Direct HDL Cholesterol Vitamin B12 TSH PTH Intact Urine Creatinine Urine Total Protein Vancomycin Trough Digoxin Salicylates Acetaminophen Crossmatch 03/20/19 03/20/19 03/20/19 08:23 08:23 10:59 WBC RBC Hgb Hct MCV MCH MCHC RDW Plt Count Lymph % (Auto) [place] % (Auto) Lymph # [place] # Seg Neutrophils % Seg Neuts % (Manual) Lymphocytes % (Manual) Monocytes % (Manual) Eosinophils % (Manual) Nucleated RBC % Seg Neutrophils # Seg Neutrophils # Man Lymphocytes # (Manual) Monocytes # (Manual) Eosinophils # (Manual) PT INR APTT POC ABG pH POC ABG pCO2 POC ABG pO2 Sodium Potassium Chloride Carbon Dioxide BUN Creatinine Glucose 101 H POC Glucose 233 H Lactic Acid 9.70 H* Calcium Phosphorus Magnesium Iron TIBC Ferritin Direct Bilirubin AST Total Creatine Kinase Troponin T Total Protein Albumin Prealbumin 0.052 L LDL Cholesterol Direct HDL Cholesterol Vitamin B12 TSH PTH Intact Urine Creatinine Urine Total Protein Vancomycin Trough Digoxin Salicylates Acetaminophen Crossmatch 03/20/19 03/20/19 03/20/19 12:23 16:10 16:40 WBC RBC Hgb Hct MCV MCH MCHC RDW Plt Count Lymph % (Auto) [place] % (Auto) Lymph # [place] # Seg Neutrophils % Seg Neuts % (Manual) Lymphocytes % (Manual) Monocytes % (Manual) Eosinophils % (Manual) Nucleated RBC % Seg Neutrophils # Seg Neutrophils # Man Lymphocytes # (Manual) Monocytes # (Manual) Eosinophils # (Manual) PT INR APTT POC ABG pH POC ABG pCO2 POC ABG pO2 Sodium Potassium Chloride Carbon Dioxide BUN Creatinine Glucose POC Glucose 135 H 171 H Lactic Acid Calcium Phosphorus Magnesium Iron TIBC Ferritin Direct Bilirubin AST Total Creatine Kinase Troponin T Total Protein Albumin Prealbumin LDL Cholesterol Direct HDL Cholesterol Vitamin B12 TSH PTH Intact Urine Creatinine 53.7 H Urine Total Protein 36 H Vancomycin Trough Digoxin Salicylates Acetaminophen Crossmatch 03/20/19 03/20/19 03/20/19 16:57 17:38 17:50 WBC RBC Hgb Hct MCV MCH MCHC RDW Plt Count Lymph % (Auto) [place] % (Auto) Lymph # [place] # Seg Neutrophils % Seg Neuts % (Manual) Lymphocytes % (Manual) Monocytes % (Manual) Eosinophils % (Manual) Nucleated RBC % Seg Neutrophils # Seg Neutrophils # Man Lymphocytes # (Manual) Monocytes # (Manual) Eosinophils # (Manual) PT INR APTT POC ABG pH POC ABG pCO2 POC ABG pO2 Sodium Potassium Chloride Carbon Dioxide BUN Creatinine Glucose POC Glucose 152 H 147 H Lactic Acid 9.90 H* Calcium Phosphorus Magnesium Iron TIBC Ferritin Direct Bilirubin AST Total Creatine Kinase Troponin T Total Protein Albumin Prealbumin LDL Cholesterol Direct HDL Cholesterol Vitamin B12 TSH PTH Intact Urine Creatinine Urine Total Protein Vancomycin Trough Digoxin Salicylates Acetaminophen Crossmatch 03/20/19 03/20/19 03/20/19 17:50 17:50 17:50 WBC RBC 2.92 L Hgb 10.0 L Hct 29.3 L MCV 100 H MCH 34 H MCHC RDW Plt Count 81 L Lymph % (Auto) [place] % (Auto) Lymph # [place] # Seg Neutrophils % Seg Neuts % (Manual) Lymphocytes % (Manual) Monocytes % (Manual) Eosinophils % (Manual) Nucleated RBC % Seg Neutrophils # Seg Neutrophils # Man Lymphocytes # (Manual) Monocytes # (Manual) Eosinophils # (Manual) PT INR APTT POC ABG pH POC ABG pCO2 POC ABG pO2 Sodium Potassium 2.8 L* D Chloride Carbon Dioxide BUN 30 H Creatinine 1.6 H Glucose 107 H POC Glucose Lactic Acid Calcium 6.9 L Phosphorus 2.00 L Magnesium Iron TIBC Ferritin Direct Bilirubin AST Total Creatine Kinase Troponin T Total Protein Albumin Prealbumin LDL Cholesterol Direct HDL Cholesterol Vitamin B12 TSH PTH Intact 171.6 H Urine Creatinine Urine Total Protein Vancomycin Trough Digoxin Salicylates Acetaminophen Crossmatch 03/20/19 03/21/19 03/21/19 21:12 00:30 04:12 WBC RBC Hgb Hct MCV MCH MCHC RDW Plt Count Lymph % (Auto) [place] % (Auto) Lymph # [place] # Seg Neutrophils % Seg Neuts % (Manual) Lymphocytes % (Manual) Monocytes % (Manual) Eosinophils % (Manual) Nucleated RBC % Seg Neutrophils # Seg Neutrophils # Man Lymphocytes # (Manual) Monocytes # (Manual) Eosinophils # (Manual) PT INR APTT POC ABG pH POC ABG pCO2 POC ABG pO2 Sodium Potassium 3.0 L Chloride Carbon Dioxide 21 L BUN Creatinine 1.4 H Glucose 103 H POC Glucose Lactic Acid 8.70 H* 9.40 H* Calcium 6.8 L Phosphorus Magnesium Iron TIBC Ferritin Direct Bilirubin AST Total Creatine Kinase Troponin T Total Protein Albumin Prealbumin LDL Cholesterol Direct HDL Cholesterol Vitamin B12 TSH PTH Intact Urine Creatinine Urine Total Protein Vancomycin Trough Digoxin Salicylates Acetaminophen Crossmatch 03/21/19 03/21/19 03/21/19 04:12 04:12 04:43 WBC RBC 2.84 L Hgb 9.5 L Hct 28.3 L MCV 100 H MCH 33 H MCHC RDW Plt Count 79 L Lymph % (Auto) [place] % (Auto) Lymph # [place] # Seg Neutrophils % Seg Neuts % (Manual) Lymphocytes % (Manual) Monocytes % (Manual) Eosinophils % (Manual) Nucleated RBC % Seg Neutrophils # Seg Neutrophils # Man Lymphocytes # (Manual) Monocytes # (Manual) Eosinophils # (Manual) PT INR APTT POC ABG pH 7.456 H POC ABG pCO2 POC ABG pO2 Sodium Potassium Chloride Carbon Dioxide BUN Creatinine Glucose POC Glucose Lactic Acid 9.50 H* Calcium Phosphorus Magnesium Iron TIBC Ferritin Direct Bilirubin AST Total Creatine Kinase Troponin T Total Protein Albumin Prealbumin LDL Cholesterol Direct HDL Cholesterol Vitamin B12 TSH PTH Intact Urine Creatinine Urine Total Protein Vancomycin Trough Digoxin Salicylates Acetaminophen Crossmatch 03/21/19 03/21/19 03/21/19 08:06 08:08 10:11 WBC RBC Hgb Hct MCV MCH MCHC RDW Plt Count Lymph % (Auto) [place] % (Auto) Lymph # [place] # Seg Neutrophils % Seg Neuts % (Manual) Lymphocytes % (Manual) Monocytes % (Manual) Eosinophils % (Manual) Nucleated RBC % Seg Neutrophils # Seg Neutrophils # Man Lymphocytes # (Manual) Monocytes # (Manual) Eosinophils # (Manual) PT INR APTT POC ABG pH POC ABG pCO2 POC ABG pO2 Sodium Potassium 3.5 L Chloride Carbon Dioxide BUN 22 H Creatinine 1.3 H Glucose POC Glucose 64 L Lactic Acid 8.00 H* Calcium 7.0 L Phosphorus Magnesium Iron TIBC Ferritin Direct Bilirubin AST Total Creatine Kinase Troponin T Total Protein Albumin Prealbumin LDL Cholesterol Direct HDL Cholesterol Vitamin B12 TSH PTH Intact Urine Creatinine Urine Total Protein Vancomycin Trough Digoxin Salicylates Acetaminophen Crossmatch 03/21/19 03/21/19 03/21/19 11:17 12:17 13:37 WBC RBC Hgb Hct MCV MCH MCHC RDW Plt Count Lymph % (Auto) [place] % (Auto) Lymph # [place] # Seg Neutrophils % Seg Neuts % (Manual) Lymphocytes % (Manual) Monocytes % (Manual) Eosinophils % (Manual) Nucleated RBC % Seg Neutrophils # Seg Neutrophils # Man Lymphocytes # (Manual) Monocytes # (Manual) Eosinophils # (Manual) PT INR APTT POC ABG pH POC ABG pCO2 POC ABG pO2 Sodium Potassium Chloride Carbon Dioxide BUN Creatinine Glucose POC Glucose 173 H 110 H Lactic Acid Calcium Phosphorus Magnesium Iron TIBC Ferritin Direct Bilirubin AST Total Creatine Kinase Troponin T 0.033 H D Total Protein Albumin Prealbumin LDL Cholesterol Direct HDL Cholesterol Vitamin B12 TSH PTH Intact Urine Creatinine Urine Total Protein Vancomycin Trough Digoxin Salicylates Acetaminophen Crossmatch 03/21/19 03/21/19 03/21/19 13:37 17:21 18:52 WBC RBC Hgb Hct MCV MCH MCHC RDW Plt Count Lymph % (Auto) [place] % (Auto) Lymph # [place] # Seg Neutrophils % Seg Neuts % (Manual) Lymphocytes % (Manual) Monocytes % (Manual) Eosinophils % (Manual) Nucleated RBC % Seg Neutrophils # Seg Neutrophils # Man Lymphocytes # (Manual) Monocytes # (Manual) Eosinophils # (Manual) PT INR APTT POC ABG pH POC ABG pCO2 POC ABG pO2 Sodium Potassium Chloride Carbon Dioxide BUN Creatinine Glucose POC Glucose 130 H 107 H Lactic Acid 6.80 H* Calcium Phosphorus Magnesium Iron TIBC Ferritin Direct Bilirubin AST Total Creatine Kinase Troponin T Total Protein Albumin Prealbumin LDL Cholesterol Direct HDL Cholesterol Vitamin B12 TSH PTH Intact Urine Creatinine Urine Total Protein Vancomycin Trough Digoxin Salicylates Acetaminophen Crossmatch 03/21/19 03/21/19 03/21/19 20:20 22:08 23:05 WBC RBC Hgb Hct MCV MCH MCHC RDW Plt Count Lymph % (Auto) [place] % (Auto) Lymph # [place] # Seg Neutrophils % Seg Neuts % (Manual) Lymphocytes % (Manual) Monocytes % (Manual) Eosinophils % (Manual) Nucleated RBC % Seg Neutrophils # Seg Neutrophils # Man Lymphocytes # (Manual) Monocytes # (Manual) Eosinophils # (Manual) PT INR APTT POC ABG pH POC ABG pCO2 POC ABG pO2 Sodium Potassium Chloride Carbon Dioxide BUN Creatinine Glucose POC Glucose 106 H 106 H Lactic Acid Calcium Phosphorus Magnesium Iron TIBC Ferritin Direct Bilirubin AST Total Creatine Kinase Troponin T 0.036 H Total Protein Albumin Prealbumin LDL Cholesterol Direct HDL Cholesterol Vitamin B12 TSH PTH Intact Urine Creatinine Urine Total Protein Vancomycin Trough Digoxin Salicylates Acetaminophen Crossmatch 03/21/19 03/21/19 03/22/19 23:05 23:05 00:14 WBC RBC Hgb Hct MCV MCH MCHC RDW Plt Count Lymph % (Auto) [place] % (Auto) Lymph # [place] # Seg Neutrophils % Seg Neuts % (Manual) Lymphocytes % (Manual) Monocytes % (Manual) Eosinophils % (Manual) Nucleated RBC % Seg Neutrophils # Seg Neutrophils # Man Lymphocytes # (Manual) Monocytes # (Manual) Eosinophils # (Manual) PT INR APTT POC ABG pH POC ABG pCO2 POC ABG pO2 Sodium Potassium Chloride Carbon Dioxide BUN Creatinine Glucose POC Glucose 122 H 109 H Lactic Acid 7.00 H* Calcium Phosphorus Magnesium Iron TIBC Ferritin Direct Bilirubin AST Total Creatine Kinase Troponin T Total Protein Albumin Prealbumin LDL Cholesterol Direct HDL Cholesterol Vitamin B12 TSH PTH Intact Urine Creatinine Urine Total Protein Vancomycin Trough Digoxin Salicylates Acetaminophen Crossmatch 03/22/19 03/22/19 03/22/19 03:10 04:02 05:11 WBC RBC Hgb Hct MCV MCH MCHC RDW Plt Count Lymph % (Auto) [place] % (Auto) Lymph # [place] # Seg Neutrophils % Seg Neuts % (Manual) Lymphocytes % (Manual) Monocytes % (Manual) Eosinophils % (Manual) Nucleated RBC % Seg Neutrophils # Seg Neutrophils # Man Lymphocytes # (Manual) Monocytes # (Manual) Eosinophils # (Manual) PT INR APTT POC ABG pH 7.487 H POC ABG pCO2 POC ABG pO2 67 L Sodium Potassium Chloride Carbon Dioxide BUN Creatinine Glucose POC Glucose 114 H 112 H Lactic Acid Calcium Phosphorus Magnesium Iron TIBC Ferritin Direct Bilirubin AST Total Creatine Kinase Troponin T Total Protein Albumin Prealbumin LDL Cholesterol Direct HDL Cholesterol Vitamin B12 TSH PTH Intact Urine Creatinine Urine Total Protein Vancomycin Trough Digoxin Salicylates Acetaminophen Crossmatch 03/22/19 03/22/19 03/22/19 06:06 06:10 06:10 WBC RBC Hgb Hct MCV MCH MCHC RDW Plt Count Lymph % (Auto) [place] % (Auto) Lymph # [place] # Seg Neutrophils % Seg Neuts % (Manual) Lymphocytes % (Manual) Monocytes % (Manual) Eosinophils % (Manual) Nucleated RBC % Seg Neutrophils # Seg Neutrophils # Man Lymphocytes # (Manual) Monocytes # (Manual) Eosinophils # (Manual) PT INR APTT POC ABG pH POC ABG pCO2 POC ABG pO2 Sodium Potassium 3.0 L Chloride Carbon Dioxide BUN Creatinine Glucose POC Glucose 115 H Lactic Acid Calcium 7.0 L Phosphorus Magnesium Iron TIBC Ferritin Direct Bilirubin AST Total Creatine Kinase Troponin T 0.036 H Total Protein Albumin Prealbumin LDL Cholesterol Direct HDL Cholesterol Vitamin B12 TSH PTH Intact Urine Creatinine Urine Total Protein Vancomycin Trough Digoxin Salicylates Acetaminophen Crossmatch 03/22/19 03/22/19 03/22/19 06:10 06:10 11:59 WBC RBC Hgb Hct MCV MCH MCHC RDW Plt Count Lymph % (Auto) [place] % (Auto) Lymph # [place] # Seg Neutrophils % Seg Neuts % (Manual) Lymphocytes % (Manual) Monocytes % (Manual) Eosinophils % (Manual) Nucleated RBC % Seg Neutrophils # Seg Neutrophils # Man Lymphocytes # (Manual) Monocytes # (Manual) Eosinophils # (Manual) PT INR APTT POC ABG pH POC ABG pCO2 POC ABG pO2 Sodium Potassium Chloride Carbon Dioxide BUN Creatinine Glucose POC Glucose Lactic Acid 4.80 H* 3.80 H* Calcium Phosphorus Magnesium Iron TIBC Ferritin Direct Bilirubin AST Total Creatine Kinase Troponin T Total Protein Albumin Prealbumin LDL Cholesterol Direct HDL Cholesterol Vitamin B12 TSH 7.810 H PTH Intact Urine Creatinine Urine Total Protein Vancomycin Trough Digoxin Salicylates Acetaminophen Crossmatch 03/22/19 03/22/19 03/22/19 13:45 13:45 13:45 WBC RBC Hgb 8.3 L Hct 24.5 L MCV MCH MCHC RDW Plt Count 56 L Lymph % (Auto) [place] % (Auto) Lymph # [place] # Seg Neutrophils % Seg Neuts % (Manual) Lymphocytes % (Manual) Monocytes % (Manual) Eosinophils % (Manual) Nucleated RBC % Seg Neutrophils # Seg Neutrophils # Man Lymphocytes # (Manual) Monocytes # (Manual) Eosinophils # (Manual) PT 21.4 H INR 1.90 H APTT 43.2 H POC ABG pH POC ABG pCO2 POC ABG pO2 Sodium Potassium Chloride Carbon Dioxide BUN Creatinine Glucose POC Glucose Lactic Acid 3.50 H* Calcium Phosphorus Magnesium Iron TIBC Ferritin Direct Bilirubin AST Total Creatine Kinase Troponin T Total Protein Albumin Prealbumin LDL Cholesterol Direct HDL Cholesterol Vitamin B12 TSH PTH Intact Urine Creatinine Urine Total Protein Vancomycin Trough Digoxin Salicylates Acetaminophen Crossmatch 03/22/19 03/23/19 03/23/19 22:20 01:06 04:50 WBC 12.1 H RBC 2.36 L Hgb 7.7 L Hct 22.9 L MCV MCH 33 H MCHC RDW Plt Count 37 L Lymph % (Auto) [place] % (Auto) Lymph # [place] # Seg Neutrophils % Seg Neuts % (Manual) 83.0 H Lymphocytes % (Manual) 8.0 L Monocytes % (Manual) Eosinophils % (Manual) Nucleated RBC % Seg Neutrophils # Seg Neutrophils # Man 10.0 H Lymphocytes # (Manual) 1.0 L Monocytes # (Manual) Eosinophils # (Manual) PT INR APTT POC ABG pH POC ABG pCO2 POC ABG pO2 Sodium Potassium Chloride Carbon Dioxide BUN Creatinine Glucose POC Glucose Lactic Acid 3.60 H* 2.70 H* Calcium Phosphorus Magnesium Iron TIBC Ferritin Direct Bilirubin AST Total Creatine Kinase Troponin T Total Protein Albumin Prealbumin LDL Cholesterol Direct HDL Cholesterol Vitamin B12 TSH PTH Intact Urine Creatinine Urine Total Protein Vancomycin Trough Digoxin Salicylates Acetaminophen Crossmatch 03/23/19 03/23/19 03/23/19 04:50 05:25 05:53 WBC RBC Hgb Hct MCV MCH MCHC RDW Plt Count Lymph % (Auto) [place] % (Auto) Lymph # [place] # Seg Neutrophils % Seg Neuts % (Manual) Lymphocytes % (Manual) Monocytes % (Manual) Eosinophils % (Manual) Nucleated RBC % Seg Neutrophils # Seg Neutrophils # Man Lymphocytes # (Manual) Monocytes # (Manual) Eosinophils # (Manual) PT INR APTT POC ABG pH POC ABG pCO2 33.3 L POC ABG pO2 Sodium Potassium 3.5 L Chloride 108.3 H Carbon Dioxide BUN Creatinine Glucose POC Glucose 68 L Lactic Acid Calcium 7.3 L Phosphorus Magnesium Iron TIBC Ferritin Direct Bilirubin AST Total Creatine Kinase Troponin T Total Protein Albumin Prealbumin LDL Cholesterol Direct HDL Cholesterol Vitamin B12 TSH PTH Intact Urine Creatinine Urine Total Protein Vancomycin Trough Digoxin Salicylates Acetaminophen Crossmatch 03/24/19 03/24/19 03/24/19 03:26 05:50 05:57 WBC RBC Hgb Hct MCV MCH MCHC RDW Plt Count Lymph % (Auto) [place] % (Auto) Lymph # [place] # Seg Neutrophils % Seg Neuts % (Manual) Lymphocytes % (Manual) Monocytes % (Manual) Eosinophils % (Manual) Nucleated RBC % Seg Neutrophils # Seg Neutrophils # Man Lymphocytes # (Manual) Monocytes # (Manual) Eosinophils # (Manual) PT INR APTT POC ABG pH POC ABG pCO2 POC ABG pO2 78 L Sodium Potassium 3.4 L Chloride 116.5 H Carbon Dioxide 21 L BUN Creatinine 0.5 L Glucose 105 H POC Glucose 127 H Lactic Acid Calcium 6.4 L Phosphorus Magnesium Iron TIBC Ferritin Direct Bilirubin AST Total Creatine Kinase Troponin T Total Protein Albumin Prealbumin LDL Cholesterol Direct HDL Cholesterol Vitamin B12 TSH PTH Intact Urine Creatinine Urine Total Protein Vancomycin Trough Digoxin Salicylates Acetaminophen Crossmatch 03/24/19 03/24/19 03/24/19 06:00 11:30 12:25 WBC 13.6 H RBC 2.08 L Hgb 6.9 L Hct 20.5 L MCV 99 H MCH 33 H MCHC RDW Plt Count 50 L Lymph % (Auto) 8.1 L [place] % (Auto) 10.0 H Lymph # 1.1 L [place] # 1.4 H Seg Neutrophils % 80.7 H Seg Neuts % (Manual) Lymphocytes % (Manual) Monocytes % (Manual) Eosinophils % (Manual) Nucleated RBC % Seg Neutrophils # 11.0 H Seg Neutrophils # Man Lymphocytes # (Manual) Monocytes # (Manual) Eosinophils # (Manual) PT INR APTT POC ABG pH POC ABG pCO2 POC ABG pO2 Sodium Potassium Chloride Carbon Dioxide BUN Creatinine Glucose POC Glucose 111 H Lactic Acid Calcium Phosphorus Magnesium Iron TIBC Ferritin Direct Bilirubin AST Total Creatine Kinase Troponin T Total Protein Albumin Prealbumin LDL Cholesterol Direct HDL Cholesterol Vitamin B12 TSH PTH Intact Urine Creatinine Urine Total Protein Vancomycin Trough Digoxin Salicylates Acetaminophen Crossmatch See Detail 03/24/19 03/25/19 03/25/19 14:25 05:20 10:00 WBC 13.4 H RBC 2.54 L Hgb 8.1 L Hct 24.3 L MCV MCH MCHC RDW 17.3 H Plt Count 44 L Lymph % (Auto) [place] % (Auto) Lymph # [place] # Seg Neutrophils % Seg Neuts % (Manual) Lymphocytes % (Manual) Monocytes % (Manual) Eosinophils % (Manual) Nucleated RBC % Seg Neutrophils # Seg Neutrophils # Man Lymphocytes # (Manual) Monocytes # (Manual) Eosinophils # (Manual) PT INR APTT POC ABG pH POC ABG pCO2 POC ABG pO2 Sodium Potassium Chloride Carbon Dioxide BUN Creatinine Glucose POC Glucose 111 H Lactic Acid Calcium Phosphorus Magnesium Iron 32 L TIBC 75 L Ferritin Direct Bilirubin AST Total Creatine Kinase Troponin T Total Protein Albumin Prealbumin LDL Cholesterol Direct HDL Cholesterol Vitamin B12 TSH PTH Intact Urine Creatinine Urine Total Protein Vancomycin Trough Digoxin Salicylates Acetaminophen Crossmatch 03/25/19 03/25/19 03/25/19 10:11 10:11 23:11 WBC RBC Hgb Hct MCV MCH MCHC RDW Plt Count Lymph % (Auto) [place] % (Auto) Lymph # [place] # Seg Neutrophils % Seg Neuts % (Manual) Lymphocytes % (Manual) Monocytes % (Manual) Eosinophils % (Manual) Nucleated RBC % Seg Neutrophils # Seg Neutrophils # Man Lymphocytes # (Manual) Monocytes # (Manual) Eosinophils # (Manual) PT INR APTT POC ABG pH POC ABG pCO2 POC ABG pO2 Sodium Potassium Chloride 112.0 H Carbon Dioxide BUN 20 H Creatinine 0.6 L Glucose POC Glucose 112 H Lactic Acid Calcium 7.2 L Phosphorus Magnesium Iron TIBC Ferritin Direct Bilirubin AST Total Creatine Kinase Troponin T Total Protein Albumin Prealbumin LDL Cholesterol Direct HDL Cholesterol Vitamin B12 > 2000 H TSH PTH Intact Urine Creatinine Urine Total Protein Vancomycin Trough Digoxin Salicylates Acetaminophen Crossmatch 03/26/19 03/26/19 03/26/19 05:00 05:00 05:16 WBC 14.4 H RBC 2.74 L Hgb 8.9 L Hct 25.7 L MCV MCH 33 H MCHC 35 H RDW 16.9 H Plt Count 60 L Lymph % (Auto) [place] % (Auto) Lymph # [place] # Seg Neutrophils % Seg Neuts % (Manual) 83.0 H Lymphocytes % (Manual) 5.0 L Monocytes % (Manual) Eosinophils % (Manual) 5.0 H Nucleated RBC % 1.0 H Seg Neutrophils # Seg Neutrophils # Man 12.0 H Lymphocytes # (Manual) 0.7 L Monocytes # (Manual) 0.9 H Eosinophils # (Manual) 0.7 H PT INR APTT POC ABG pH POC ABG pCO2 POC ABG pO2 Sodium Potassium 3.1 L Chloride 110.4 H Carbon Dioxide BUN 22 H Creatinine Glucose 101 H POC Glucose 114 H Lactic Acid Calcium 7.4 L Phosphorus Magnesium Iron TIBC Ferritin Direct Bilirubin AST Total Creatine Kinase Troponin T Total Protein Albumin Prealbumin LDL Cholesterol Direct HDL Cholesterol Vitamin B12 TSH PTH Intact Urine Creatinine Urine Total Protein Vancomycin Trough Digoxin Salicylates Acetaminophen Crossmatch 03/26/19 03/27/19 03/27/19 11:55 09:04 09:04 WBC RBC Hgb Hct MCV MCH MCHC RDW Plt Count Lymph % (Auto) [place] % (Auto) Lymph # [place] # Seg Neutrophils % Seg Neuts % (Manual) Lymphocytes % (Manual) Monocytes % (Manual) Eosinophils % (Manual) Nucleated RBC % Seg Neutrophils # Seg Neutrophils # Man Lymphocytes # (Manual) Monocytes # (Manual) Eosinophils # (Manual) PT INR APTT POC ABG pH POC ABG pCO2 POC ABG pO2 Sodium Potassium 3.2 L Chloride Carbon Dioxide BUN 22 H Creatinine Glucose POC Glucose 121 H Lactic Acid Calcium 7.7 L Phosphorus Magnesium Iron TIBC Ferritin Direct Bilirubin AST Total Creatine Kinase Troponin T Total Protein Albumin Prealbumin LDL Cholesterol Direct HDL Cholesterol Vitamin B12 TSH PTH Intact Urine Creatinine Urine Total Protein Vancomycin Trough 23.0 H Digoxin Salicylates Acetaminophen Crossmatch 03/27/19 03/27/19 03/27/19 09:04 13:31 14:04 WBC 14.8 H RBC 2.52 L Hgb 8.0 L 8.3 L Hct 24.0 L 25.3 L MCV MCH MCHC RDW 17.0 H Plt Count 89 L 91 L Lymph % (Auto) [place] % (Auto) 8.8 H Lymph # [place] # 1.3 H Seg Neutrophils % 70.7 H Seg Neuts % (Manual) Lymphocytes % (Manual) Monocytes % (Manual) Eosinophils % (Manual) Nucleated RBC % Seg Neutrophils # 10.5 H Seg Neutrophils # Man Lymphocytes # (Manual) Monocytes # (Manual) Eosinophils # (Manual) PT INR APTT POC ABG pH POC ABG pCO2 POC ABG pO2 Sodium Potassium Chloride Carbon Dioxide BUN Creatinine Glucose POC Glucose Lactic Acid Calcium Phosphorus Magnesium Iron TIBC Ferritin Direct Bilirubin 0.3 H AST Total Creatine Kinase Troponin T Total Protein 4.9 L Albumin 1.3 L Prealbumin LDL Cholesterol Direct HDL Cholesterol Vitamin B12 TSH PTH Intact Urine Creatinine Urine Total Protein Vancomycin Trough Digoxin Salicylates Acetaminophen Crossmatch 03/27/19 03/27/19 03/28/19 14:04 23:51 01:05 WBC 14.4 H RBC 2.44 L Hgb 8.0 L Hct 24.5 L MCV 100 H MCH 33 H MCHC RDW 18.5 H Plt Count 86 L Lymph % (Auto) [place] % (Auto) Lymph # [place] # Seg Neutrophils % Seg Neuts % (Manual) 84.0 H Lymphocytes % (Manual) 10.0 L Monocytes % (Manual) Eosinophils % (Manual) Nucleated RBC % Seg Neutrophils # Seg Neutrophils # Man 12.1 H Lymphocytes # (Manual) Monocytes # (Manual) Eosinophils # (Manual) PT 21.4 H INR 1.90 H APTT 42.2 H POC ABG pH POC ABG pCO2 POC ABG pO2 Sodium Potassium Chloride Carbon Dioxide BUN Creatinine Glucose POC Glucose 130 H Lactic Acid Calcium Phosphorus Magnesium Iron TIBC Ferritin Direct Bilirubin AST Total Creatine Kinase Troponin T Total Protein Albumin Prealbumin LDL Cholesterol Direct HDL Cholesterol Vitamin B12 TSH PTH Intact Urine Creatinine Urine Total Protein Vancomycin Trough Digoxin Salicylates Acetaminophen Crossmatch 03/28/19 03/28/19 03/28/19 02:51 04:45 07:31 WBC RBC Hgb Hct MCV MCH MCHC RDW Plt Count Lymph % (Auto) [place] % (Auto) Lymph # [place] # Seg Neutrophils % Seg Neuts % (Manual) Lymphocytes % (Manual) Monocytes % (Manual) Eosinophils % (Manual) Nucleated RBC % Seg Neutrophils # Seg Neutrophils # Man Lymphocytes # (Manual) Monocytes # (Manual) Eosinophils # (Manual) PT INR APTT 75.0 H* POC ABG pH POC ABG pCO2 POC ABG pO2 Sodium Potassium Chloride Carbon Dioxide BUN 22 H Creatinine Glucose POC Glucose Lactic Acid Calcium 7.8 L Phosphorus Magnesium Iron TIBC Ferritin 448.3 H Direct Bilirubin AST Total Creatine Kinase Troponin T Total Protein Albumin Prealbumin LDL Cholesterol Direct HDL Cholesterol Vitamin B12 TSH PTH Intact Urine Creatinine Urine Total Protein Vancomycin Trough Digoxin Salicylates Acetaminophen Crossmatch 03/28/19 03/29/19 03/29/19 14:30 04:40 04:40 WBC RBC 2.17 L Hgb 7.1 L Hct 20.8 L MCV MCH 33 H MCHC RDW 17.1 H Plt Count 122 L Lymph % (Auto) [place] % (Auto) Lymph # [place] # Seg Neutrophils % Seg Neuts % (Manual) Lymphocytes % (Manual) Monocytes % (Manual) Eosinophils % (Manual) Nucleated RBC % Seg Neutrophils # Seg Neutrophils # Man Lymphocytes # (Manual) Monocytes # (Manual) Eosinophils # (Manual) PT INR APTT 70.3 H* POC ABG pH POC ABG pCO2 POC ABG pO2 Sodium Potassium Chloride Carbon Dioxide 31 H BUN 22 H Creatinine 0.5 L Glucose POC Glucose Lactic Acid Calcium 8.0 L Phosphorus Magnesium Iron TIBC Ferritin Direct Bilirubin AST Total Creatine Kinase Troponin T Total Protein 5.0 L Albumin 1.4 L Prealbumin LDL Cholesterol Direct HDL Cholesterol Vitamin B12 TSH PTH Intact Urine Creatinine Urine Total Protein Vancomycin Trough Digoxin Salicylates Acetaminophen Crossmatch 03/29/19 03/29/19 03/29/19 04:40 04:40 11:50 WBC RBC Hgb Hct MCV MCH MCHC RDW Plt Count Lymph % (Auto) [place] % (Auto) Lymph # [place] # Seg Neutrophils % Seg Neuts % (Manual) Lymphocytes % (Manual) Monocytes % (Manual) Eosinophils % (Manual) Nucleated RBC % Seg Neutrophils # Seg Neutrophils # Man Lymphocytes # (Manual) Monocytes # (Manual) Eosinophils # (Manual) PT INR APTT 71.8 H* POC ABG pH POC ABG pCO2 POC ABG pO2 Sodium Potassium Chloride Carbon Dioxide BUN Creatinine Glucose POC Glucose 118 H Lactic Acid Calcium Phosphorus Magnesium Iron TIBC Ferritin Direct Bilirubin AST Total Creatine Kinase Troponin T Total Protein Albumin Prealbumin LDL Cholesterol Direct HDL Cholesterol Vitamin B12 TSH PTH Intact Urine Creatinine Urine Total Protein Vancomycin Trough Digoxin 3.5 H* Salicylates Acetaminophen Crossmatch 03/29/19 03/29/19 03/29/19 16:20 16:20 21:10 WBC RBC Hgb Hct MCV MCH MCHC RDW Plt Count Lymph % (Auto) [place] % (Auto) Lymph # [place] # Seg Neutrophils % Seg Neuts % (Manual) Lymphocytes % (Manual) Monocytes % (Manual) Eosinophils % (Manual) Nucleated RBC % Seg Neutrophils # Seg Neutrophils # Man Lymphocytes # (Manual) Monocytes # (Manual) Eosinophils # (Manual) PT INR APTT 61.5 H* 112.6 H* POC ABG pH POC ABG pCO2 POC ABG pO2 Sodium Potassium Chloride Carbon Dioxide BUN Creatinine Glucose POC Glucose Lactic Acid Calcium Phosphorus Magnesium Iron TIBC Ferritin Direct Bilirubin AST Total Creatine Kinase Troponin T Total Protein Albumin Prealbumin LDL Cholesterol Direct HDL Cholesterol Vitamin B12 TSH PTH Intact Urine Creatinine Urine Total Protein Vancomycin Trough Digoxin 2.6 H* Salicylates Acetaminophen Crossmatch 03/29/19 03/30/19 03/30/19 22:30 04:42 04:42 WBC RBC Hgb 6.4 L Hct 18.9 L* MCV MCH MCHC RDW Plt Count Lymph % (Auto) [place] % (Auto) Lymph # [place] # Seg Neutrophils % Seg Neuts % (Manual) Lymphocytes % (Manual) Monocytes % (Manual) Eosinophils % (Manual) Nucleated RBC % Seg Neutrophils # Seg Neutrophils # Man Lymphocytes # (Manual) Monocytes # (Manual) Eosinophils # (Manual) PT INR APTT 103.8 H* POC ABG pH POC ABG pCO2 POC ABG pO2 Sodium Potassium Chloride Carbon Dioxide BUN Creatinine Glucose POC Glucose Lactic Acid Calcium Phosphorus Magnesium Iron TIBC Ferritin Direct Bilirubin AST Total Creatine Kinase Troponin T Total Protein Albumin Prealbumin LDL Cholesterol Direct HDL Cholesterol Vitamin B12 TSH PTH Intact Urine Creatinine Urine Total Protein Vancomycin Trough Digoxin 2.6 H* Salicylates Acetaminophen Crossmatch 03/30/19 03/30/19 03/30/19 07:04 11:15 11:36 WBC RBC Hgb Hct MCV MCH MCHC RDW Plt Count Lymph % (Auto) [place] % (Auto) Lymph # [place] # Seg Neutrophils % Seg Neuts % (Manual) Lymphocytes % (Manual) Monocytes % (Manual) Eosinophils % (Manual) Nucleated RBC % Seg Neutrophils # Seg Neutrophils # Man Lymphocytes # (Manual) Monocytes # (Manual) Eosinophils # (Manual) PT INR APTT 50.5 H POC ABG pH POC ABG pCO2 POC ABG pO2 Sodium Potassium Chloride Carbon Dioxide BUN Creatinine Glucose POC Glucose 129 H Lactic Acid Calcium Phosphorus Magnesium Iron TIBC Ferritin Direct Bilirubin AST Total Creatine Kinase Troponin T Total Protein Albumin Prealbumin LDL Cholesterol Direct HDL Cholesterol Vitamin B12 TSH PTH Intact Urine Creatinine Urine Total Protein Vancomycin Trough Digoxin Salicylates Acetaminophen Crossmatch See Detail
[2019-03-30 15:39] LABS: Hematocrit 25.3 % (30.3-42.9); Hemoglobin 8.5 gm/dl (10.1-14.3); Mean Corpuscular HGB Conc 34 % (30-34); Mean Corpuscular Volume 95 fl (79-97); Platelet Count 157 K/mm3 (140-440); Red Blood Count 2.66 M/mm3 (3.65-5.03); Red Cell Distribution Width 17.4 % (13.2-15.2)
[2019-03-30 16:10] LABS: Heparin-Induced Platelet Antib Negative (Negative); Unfractionated Heparin Negative (Negative)
[2019-03-30 23:10] LABS: Hematocrit 23.9 % (30.3-42.9); Hemoglobin 7.9 gm/dl (10.1-14.3); Mean Corpuscular HGB Conc 33 % (30-34); Mean Corpuscular Volume 97 fl (79-97); Platelet Count 167 K/mm3 (140-440); Red Blood Count 2.48 M/mm3 (3.65-5.03); Red Cell Distribution Width 17.7 % (13.2-15.2)
[2019-03-31] MEDS: DUONEB *Not for PRN Use IH SCH ×4 (02:47→21:02)
[2019-03-31 05:35] LABS: Hematocrit 23.7 % (30.3-42.9)
[2019-03-31] MEDS: MERREM 1,000 MG in NACL 0.9% 100 ML IV SCH ×3 (06:17→22:06)
[2019-03-31] MEDS: HumaLOG SUB-Q SCH ×4 (06:18→18:22)
--- NOTE | 2019-03-31 08:05 | Hem/Onc Progress Note ---
Assessment and Plan low plt - since admission DVT was on home hospice 1. Thrombocytopenia. This may be secondary to medications. The platelets were even low at admission. The differential includes infection versus a marrow issue. At this time, platelets are adequate, we will follow the trend. Because of clinical suspicion, HIT test has been ordered. Argatroban ordered. Heparin has been stopped. 2. Pneumonia. 3. Encephalopathy. 4. Respiratory failure, on vent. 5. Renal impairment. 6. Deep vein thrombosis. Her immobilization may have a role. Central line also may have a role. the patient was on Argatroban. Once HIT antibody is negative, we will look into changing to oral anticoagulation like Eliquis or Xarelto. Her thrombocytopenia may complicate, the patient had low platelet even at admission. IVC filter may prevent the leg DVT from progression to PE; however, for IJ DVT, we have limited options. The patient was on home hospice as per notes. Atrial fibrillation, she was on medications. History of anemia, deficiency investigations. Leukocytosis, likely reactive. B12 level more than 2000, serum iron 32. HIT antibody done on 03/27 anemia - IV iron trial 03/31/2019 anemia - off argatroban s/p PRBC as per info - DNR - Patient Problems (1) Thrombocytopenia Current Visit: Yes Status: Acute Subjective Date of service: 03/31/19 Principal diagnosis: anemia Interval history: as mper info - pt DNR Objective - Exam Narrative Exam: Pain - none - on vent General appearance intubated Performance status - complete help needed Eyes - no icterus ENT no thrush LNs cervical not palpable Neck - no LNs/mass Respiratory Normal Breath sounds - CTA anteriorly CVS S1 S2 + Extremities normal temperature - flaccid General GI Soft - distended Rectal deferred male - deferred Skin warm Musculoskeletal not able to evaluate Neurologically - on vent - Constitutional Vitals: Last Vital Signs Temp 100.6 F H 03/31/19 08:00 Pulse 114 H 03/31/19 06:00 Resp 03/31/19 06:00 BP 152/66 03/31/19 06:00 Pulse Ox 98 03/31/19 06:00 - Labs Lab Results: Laboratory Results - last 24 hr 03/27/19 03/30/19 03/30/19 13:30 07:04 07:58 WBC 9.3 RBC 2.66 L Hgb 8.5 L Hct 25.3 L D MCV 95 MCH 32 MCHC 34 RDW 17.4 H Plt Count 157 APTT Heparin Anti-Xa, Unfract Negative POC Glucose Heparin-induced Plt Ab Negative UF Heparin High Dose 0 SEMAJ UFH Low Dose 0.1 0 SEMAJ UFH Low Dose 0.5 0 Blood Type O POSITIVE Antibody Screen Negative Crossmatch See Detail 03/30/19 03/30/19 03/30/19 11:15 11:36 17:40 WBC RBC Hgb Hct MCV MCH MCHC RDW Plt Count APTT 50.5 H Heparin Anti-Xa, Unfract POC Glucose 129 H 112 H Heparin-induced Plt Ab UF Heparin High Dose SEMAJ UFH Low Dose 0.1 SEMAJ UFH Low Dose 0.5 Blood Type Antibody Screen Crossmatch 03/30/19 03/30/19 03/31/19 22:51 23:47 05:00 WBC 8.7 RBC 2.48 L Hgb 7.9 L 8.0 L Hct 23.9 L 23.7 L MCV 97 MCH 32 MCHC 33 RDW 17.7 H Plt Count 167 158 APTT Heparin Anti-Xa, Unfract POC Glucose 112 H Heparin-induced Plt Ab UF Heparin High Dose SEMAJ UFH Low Dose 0.1 SEMAJ UFH Low Dose 0.5 Blood Type Antibody Screen Crossmatch 03/31/19 05:11 WBC RBC Hgb Hct MCV MCH MCHC RDW Plt Count APTT Heparin Anti-Xa, Unfract POC Glucose 99 Heparin-induced Plt Ab UF Heparin High Dose SEMAJ UFH Low Dose 0.1 SEMAJ UFH Low Dose 0.5 Blood Type Antibody Screen Crossmatch Medications & Allergies - Medications Allergies/Adverse Reactions: Allergies No Known Allergies Allergy (Unverified 03/19/19 13:11) Home Medications: Home Medications Medication Instructions Recorded Confirmed Last Taken Type Aspirin EC 81 mg PO DAILY 03/20/19 03/20/19 Unknown History Divalproex Sodium 375 mg PO Q8H PRN 03/20/19 03/20/19 Unknown History Metoprolol [Lopressor TAB] 50 mg PO BID 03/20/19 03/20/19 Unknown History Sennosides/Docusate Sodium [Senna 8.6 mg PO BID PRN 03/20/19 03/20/19 Unknown History Plus Tablet] levETIRAcetam [Keppra TAB] 500 mg PO BID 03/20/19 03/20/19 Unknown History Active Medications: Generic Name Dose Route Start Last Admin Trade Name Freq PRN Reason Stop Dose Admin Acetaminophen 650 mg 03/24/19 23:48 03/30/19 22:25 Tylenol FEEDTUBE 650 mg Q6H PRN Administration Fever >101 Albuterol 2.5 mg 03/19/19 23:58 Proventil IH Q3HRT PRN Shortness Of Breath Albuterol/Ipratropium 1 ampul 03/20/19 02:00 03/31/19 02:47 Duoneb *Not For Prn Use* IH 1 ampul Q6HRT YUSUF Administration Amiodarone HCl 200 mg 03/22/19 22:00 03/30/19 22:25 Cordarone PO 200 mg BID YUSUF Administration Lipase/Protease/Amylase 1 each 03/22/19 16:03 Pancreaztiti Sargent 10,500 Unit FEEDTUBE PRN PRN For Clogged Feeding Tube Aspirin 81 mg 03/21/19 10:00 03/30/19 10:14 Baby Aspirin PO Not Given DAILY YUSUF Budesonide 0.5 mg 03/19/19 23:45 03/30/19 20:01 Pulmicort IH 0.5 mg Q12HRT YUSUF Administration Dextrose 50 ml 03/19/19 23:58 03/21/19 16:29 D50w (25gm) Syringe IV 50 ml PRN PRN Administration Hypoglycemia Famotidine 20 mg 03/22/19 10:00 03/30/19 22:25 Pepcid PO 20 mg BID YUSUF Administration Fentanyl 50 mcg 03/19/19 12:45 03/19/19 13:26 Sublimaze IV 50 mcg Q10MIN PRN Administration ANALGESIA Hydromorphone HCl 0.5 mg 03/19/19 23:58 Dilaudid IV Q3H PRN Pain , Severe (7-10) Hydrophilic Ointment 1 applic 03/19/19 12:45 Vaseline Lip Therapy TP Q2HR PRN Dry Lips Fentanyl Citrate 2,000 mcg in 100 mls @ 2.835 mls/hr 03/19/19 14:00 03/21/19 11:33 Fentanyl Drip Premix IV 0 mcg/kg/hr TITR YUSUF 0 mls/hr Titration Protocol 1 MCG/KG/HR Norepinephrine 4 mg in 250 mls @ 7.5 mls/hr 03/25/19 11:00 03/30/19 23:45 Levophed Drip 4 Mg/Ns 250 Ml IV 0 mcg/min TITR YUSUF 0 mls/hr Titration Protocol 2 MCG/MIN Meropenem 1,000 mg/ Sodium 100 mls @ 100 mls/hr 03/26/19 15:00 03/31/19 06:17 Chloride IV 100 mls/hr Q8HR YUSUF Administration Protocol Vancomycin HCl 1,250 mg/ 275 mls @ 166.667 mls/hr 03/30/19 13:00 03/30/19 13:15 Sodium Chloride IV 166.667 mls/hr Q24HR YUSUF Administration Insulin Human Lispro 0 unit 03/20/19 00:00 03/31/19 06:18 Humalog SUB-Q Not Given Q6HR [facility] Protocol Metoclopramide HCl 5 mg 03/20/19 00:12 Reglan IV Q6H PRN Nausea And Vomiting Metoprolol Tartrate 2.5 mg 03/23/19 13:17 03/24/19 21:20 Lopressor IV 2.5 mg Q2HR PRN Administration HR >150 Multi-Ingred Cream/Lotion/Oil/Oint 1 applic 03/19/19 12:45 Artificial Tears Ophth Oint OU Q4HR PRN Dry Eye(s) Ondansetron HCl 4 mg 03/19/19 23:58 Zofran IV Q8H PRN Nausea And Vomiting Promethazine HCl 25 mg 03/19/19 23:58 Phenergan DE Q6H PRN N/V IF NPO AND NO IV ACCESS Simple Syrup 15 ml 03/22/19 16:03 03/23/19 07:21 Simple Syrup FEEDTUBE 15 ml PRN PRN Administration Hypoglycemia Simple Syrup 30 ml 03/22/19 16:03 Simple Syrup FEEDTUBE PRN PRN Hypoglycemia Sodium Bicarbonate 325 mg 03/22/19 16:03 Sodium Bicarbonate FEEDTUBE PRN PRN For Clogged Feeding Tube Sodium Chloride 10 ml 03/20/19 10:00 03/30/19 22:27 Sodium Chloride Flush Syringe 10 Ml IV 10 ml BID YUSUF Administration Sodium Chloride 10 ml 03/19/19 23:58 Sodium Chloride Flush Syringe 10 Ml IV PRN PRN LINE FLUSH
[2019-03-31] MEDS: PULMICORT IH SCH ×2 (08:34→21:02)
[2019-03-31] MEDS: TYLENOL FEEDTUBE PRN ×2 (09:35→17:27)
[2019-03-31] MEDS: VANCOMYCIN 1,250 MG in NACL 0.9% 250ML 250 ML IV SCH (09:35)
[2019-03-31] MEDS: PEPCID PO SCH ×2 (09:36→22:07)
[2019-03-31] MEDS: SODIUM CHLORIDE FLUSH SYRINGE 10 ML IV SCH ×2 (09:36→22:07)
[2019-03-31] MEDS: BABY ASPIRIN PO SCH (09:36)
[2019-03-31] MEDS: CORDARONE PO SCH ×2 (09:36→22:07)
--- NOTE | 2019-03-31 10:30 | Progress Note ---
Assessment and Plan Acute respiratory failure intubated on the vent Sepsis Pneumonia Acute kidney failure Paroxysmal Atrial fibrillation currently in sinus rhythm on amiodarone Digoxin toxicity -digoxin discontinued Altered mental status Thrombocytopenia Severe anemia -s/p transfusion of PRBCs Acute Right common femoral DVT and right IJ vein thrombosis argatroban discontinued due to severe anemia AND/DNR status Echocardiogram shows a normal left ventricular systolic function, ejection fraction 60-65%. Continue medical therapy for paroxysmal atrial fibrillation. Otherwise, conservative cardiac management. Subjective Date of service: 03/31/19 Principal diagnosis: low plt - DVT Interval history: Patient remains intubated on the vent. Still with fevers. Objective Vital Signs Temp Pulse Pulse Pulse Resp Resp BP 03/31/19 10:00 116 H 34 H 157/63 03/31/19 09:45 118 H 19 158/59 03/31/19 09:30 116 H 22 144/65 03/31/19 09:15 119 H 21 126/63 03/31/19 09:01 117 H 17 115/70 03/31/19 08:45 118 H 20 133/70 03/31/19 08:36 118 H 153/76 03/31/19 08:35 116 H 28 H 03/31/19 08:30 118 H 21 153/76 03/31/19 08:15 115 H 19 132/56 03/31/19 08:00 100.6 F H 118 H 118 H 26 H 155/71 03/31/19 07:45 116 H 24 145/63 03/31/19 07:30 116 H 15 170/69 03/31/19 07:15 117 H 26 H 152/69 03/31/19 07:00 114 H 30 H 151/61 03/31/19 06:45 114 H 21 160/55 03/31/19 06:30 116 H 14 142/57 03/31/19 06:15 114 H 32 H 137/54 03/31/19 06:00 114 H 19 152/66 03/31/19 05:45 127 H 29 H 146/79 03/31/19 05:30 113 H 32 H 129/54 03/31/19 05:15 115 H 26 H 144/67 03/31/19 05:00 112 H 28 H 143/65 03/31/19 04:45 111 H 21 136/61 08/02/19 04:30 110 H 19 125/41 03/31/19 04:15 111 H 25 H 128/59 03/31/19 04:00 98.1 F 109 H 115 H 18 135/49 03/31/19 03:45 110 H 22 152/47 03/31/19 03:30 114 H 26 H 142/57 03/31/19 03:28 114 H 142/57 03/31/19 03:18 99.3 F 03/31/19 03:15 111 H 18 129/50 03/31/19 03:00 111 H 120 H 13 18 136/55 03/31/19 02:45 111 H 20 129/44 03/31/19 02:30 111 H 17 137/35 03/31/19 02:15 113 H 20 128/40 03/31/19 02:00 112 H 15 137/57 03/31/19 01:45 117 H 16 121/55 03/31/19 01:30 117 H 21 151/64 03/31/19 01:15 115 H 19 137/55 03/31/19 01:00 115 H 15 126/46 03/31/19 00:45 117 H 16 130/52 03/31/19 00:30 118 H 18 131/53 03/31/19 00:15 118 H 15 128/53 03/31/19 00:00 121 H 130 H 34 H 122/50 03/30/19 23:45 124 H 16 138/62 03/30/19 23:31 122 H 12 133/50 03/30/19 23:23 120 H 158/73 03/30/19 23:15 122 H 16 158/73 03/30/19 23:12 98 F 03/30/19 23:09 122 H 17 137/65 03/30/19 23:00 121 H 20 137/65 03/30/19 22:48 123 H 17 151/64 03/30/19 22:45 125 H 19 161/80 03/30/19 22:30 123 H 24 151/64 03/30/19 22:15 125 H 25 H 155/64 03/30/19 22:00 128 H 22 150/67 03/30/19 21:45 124 H 19 147/63 03/30/19 21:30 122 H 17 135/65 03/30/19 21:15 123 H 13 144/62 03/30/19 21:00 122 H 16 157/74 03/30/19 20:45 120 H 15 137/66 03/30/19 20:30 121 H 23 137/66 03/30/19 20:15 119 H 16 162/66 03/30/19 20:10 126 H 20 03/30/19 20:00 103.0 F H 130 H 130 H 16 163/74 03/30/19 19:59 124 H 155/71 03/30/19 19:45 126 H 13 155/71 03/30/19 19:42 103.0 F H 03/30/19 19:30 120 H 19 158/70 03/30/19 19:15 120 H 15 161/64 03/30/19 19:00 122 H 19 150/67 03/30/19 18:45 121 H 17 156/69 03/30/19 18:30 119 H 17 146/68 03/30/19 18:15 123 H 16 157/72 03/30/19 18:00 121 H 13 148/64 03/30/19 17:45 118 H 15 168/72 03/30/19 17:30 118 H 20 155/69 03/30/19 17:15 120 H 17 176/105 03/30/19 17:00 115 H 17 151/72 03/30/19 16:45 116 H 19 174/72 03/30/19 16:30 116 H 15 152/76 03/30/19 16:15 117 H 20 162/66 03/30/19 16:00 101.2 F H 126 H 113 H 21 182/84 03/30/19 15:45 118 H 17 159/74 03/30/19 15:31 122 H 22 92/29 03/30/19 15:15 115 H 17 127/43 03/30/19 15:00 115 H 18 123/47 03/30/19 14:45 115 H 21 127/49 03/30/19 14:30 114 H 16 135/51 03/30/19 14:15 117 H 15 126/52 03/30/19 14:00 115 H 16 131/49 03/30/19 13:45 115 H 15 125/45 03/30/19 13:30 115 H 15 132/47 03/30/19 13:15 116 H 19 115/43 03/30/19 13:00 114 H 13 130/49 03/30/19 12:45 117 H 17 126/49 03/30/19 12:30 117 H 22 129/47 03/30/19 12:15 100.9 F H 03/30/19 12:11 119 H 18 126/41 03/30/19 12:00 100.9 F H 120 H 125 H 20 126/41 03/30/19 11:51 122 H 17 146/68 03/30/19 11:45 129 H 21 146/68 03/30/19 11:42 128 H 146/68 03/30/19 11:30 122 H 19 129/45 03/30/19 11:15 123 H 15 107/32 03/30/19 11:07 102.9 F H 03/30/19 11:00 123 H 19 114/38 03/30/19 10:45 123 H 24 118/39 03/30/19 10:31 102.1 F H 03/30/19 10:30 131 H 20 129/44 Pulse Ox 03/31/19 10:00 99 03/31/19 09:45 97 03/31/19 09:30 98 03/31/19 09:15 95 03/31/19 09:01 95 03/31/19 08:45 98 03/31/19 08:36 100 03/31/19 08:35 03/31/19 08:30 98 03/31/19 08:15 98 03/31/19 08:00 99 03/31/19 07:45 98 03/31/19 07:30 99 03/31/19 07:15 98 03/31/19 07:00 98 03/31/19 06:45 98 03/31/19 06:30 98 03/31/19 06:15 99 03/31/19 06:00 98 03/31/19 05:45 99 03/31/19 05:30 98 03/31/19 05:15 98 03/31/19 05:00 99 03/31/19 04:45 98 03/31/19 04:30 97 03/31/19 04:15 97 03/31/19 04:00 95 03/31/19 03:45 97 03/31/19 03:30 94 03/31/19 03:28 96 03/31/19 03:18 03/31/19 03:15 95 03/31/19 03:00 94 03/31/19 02:45 96 03/31/19 02:30 97 03/31/19 02:15 99 03/31/19 02:00 96 03/31/19 01:45 95 03/31/19 01:30 96 03/31/19 01:15 96 03/31/19 01:00 96 03/31/19 00:45 96 03/31/19 00:30 96 03/31/19 00:15 96 03/31/19 00:00 95 03/30/19 23:45 94 03/30/19 23:31 94 03/30/19 23:23 97 03/30/19 23:15 96 03/30/19 23:12 03/30/19 23:09 99 03/30/19 23:00 96 03/30/19 22:48 98 03/30/19 22:45 97 03/30/19 22:30 97 03/30/19 22:15 96 03/30/19 22:00 96 03/30/19 21:45 95 03/30/19 21:30 96 03/30/19 21:15 96 03/30/19 21:00 98 03/30/19 20:45 98 03/30/19 20:30 97 03/30/19 20:15 94 03/30/19 20:10 03/30/19 20:00 100 03/30/19 19:59 98 03/30/19 19:45 95 03/30/19 19:42 03/30/19 19:30 99 03/30/19 19:15 98 03/30/19 19:00 98 03/30/19 18:45 97 03/30/19 18:30 98 03/30/19 18:15 98 03/30/19 18:00 99 03/30/19 17:45 98 03/30/19 17:30 99 03/30/19 17:15 98 03/30/19 17:00 99 03/30/19 16:45 98 03/30/19 16:30 99 03/30/19 16:15 99 03/30/19 16:00 99 03/30/19 15:45 98 03/30/19 15:31 98 03/30/19 15:15 100 03/30/19 15:00 100 03/30/19 14:45 100 03/30/19 14:30 100 03/30/19 14:15 100 03/30/19 14:00 100 03/30/19 13:45 100 03/30/19 13:30 100 03/30/19 13:15 03/30/19 13:00 100 03/30/19 12:45 03/30/19 12:30 100 03/30/19 12:15 03/30/19 12:11 100 03/30/19 12:00 100 03/30/19 11:51 100 03/30/19 11:45 99 03/30/19 11:42 100 03/30/19 11:30 100 03/30/19 11:15 99 03/30/19 11:07 03/30/19 11:00 100 03/30/19 10:45 100 03/30/19 10:31 03/30/19 10:30 100 - Physical Examination General: Other (intubated on the vent) Neck: Positive: neck supple Cardiac: Positive: Tachycardia - Labs and Meds Coagulation 03/30/19 Range/Units 11:15 APTT 50.5 H (24.2-36.6) Sec. CBC 03/30/19 03/30/19 03/31/19 Range/Units 07:58 22:51 05:00 WBC 9.3 8.7 (4.5-11.0) K/mm3 RBC 2.66 L 2.48 L (3.65-5.03) M/mm3 Hgb 8.5 L 7.9 L 8.0 L (10.1-14.3) gm/dl Hct 25.3 L D 23.9 L 23.7 L (30.3-42.9) % Plt Count 157 167 158 (140-440) K/mm3 - Imaging and Cardiology EKG: report reviewed (sinus tachycardia heart rate of 129/m)
--- NOTE | 2019-03-31 10:46 | Progress Note ---
Assessment and Plan Cultures/ID related labs: 03/27 tracheal aspirate - heavy neutrophils, usual resp maday Blood culture 03/19/2019 negative. Urine culture 03/19/2019 negative. 03/23/2019 tracheal aspirate culture: Usual resp maday Assessment: 73 y/o female with history of dementia, prior CVA, on home hospice admitted on 03/20/2019 brought by EMS due to altered mental status: 1) Sepsis with septic shock: source pneumonia but persistent fever. UA negative . Blood culture 03/19/2019 no growth. Urine culture 03/19/2019 negative. Would continue meropenem for now and monitor for improvement, likely for 8 day course. Resp culture sterilized. Added vancomycin 03/30 2) Bilateral pneumonia: ? aspiration v/s CAP. Trach aspirate cultures usual resp maday, <25 WBC. 3) Acute encephalopathy: CT head without contrast shows encephalomalacia in the entire right cerebral hemisphere, volume loss in the left cerebral hemisphere, no acute parenchymal lesion in the brain. 4) Acute respiratory failure: remains intubated, on the vent. Responsive to commands today. 5) HA: improved. 6) Persistent fevers - I am concerned these are too high to be fully explained by the DVTs. It is possible the fevers are not infective, however without an alternate etiology I feel we should cover broadly. 7) DVTs - DVT of RIJ at catheter site as well as R common femoral, and a superficial thrombus in R greater saphenous Will continue to follow along with you. Recommendations: continue IV Meropenem 1 gm q8 hrs (start date: 03/26/19) Continue vancomycin (start date: 03/30/19) Guarded prognosis, was on home hospice prior to admission MD [facility] C: [phone] O: [phone] F: [phone] Subjective Date of service: 03/31/19 Principal diagnosis: low plt - DVT Interval history: Remains intubated. Weakly responsive to commands. Fevers improved but ongoing. Objective - Exam Narrative Exam: Constitutional: asleep, no distress, weakly following commands Head, Ears, Nose: Normocephalic, atraumatic. External ears, nose normal Eyes: Conjunctivae/corneas clear. No icterus. No ptosis. Neck: Supple, no meningeal signs Oral: Intubated Cardiovascular: S1, S2 normal. Normal rhythm Respiratory: Good air entry, clear to auscultation bilaterally GI: Soft, non-tender; bowel sounds normal. No peritoneal signs Musculoskeletal: No pedal edema, Skin: No rash or abscess Hem/Lymphatic: No palpable cervical or supraclavicular nodes. No lymphangitis Psych: no agitation Neurological: weak, 3/5 strength extremities. Restrained - Constitutional Vitals: Vital Signs Temp Pulse Resp BP Pulse Ox 100.6 F H 116 H 34 H 157/63 99 03/31/19 08:00 03/31/19 10:00 03/31/19 10:00 03/31/19 10:00 03/31/19 10:00 Temperature -Last 24 Hours Temperature 100.6 F Temperature 98.1 F Temperature 99.3 F Temperature 98 F Temperature 103.0 F Temperature 103.0 F Temperature 101.2 F Temperature 100.9 F Temperature 100.9 F Temperature 100.9 F Temperature 102.9 F - Labs CBC & Chem 7: 03/31/19 05:00 03/29/19 04:40 Labs: Abnormal lab results 03/30/19 03/30/19 03/30/19 Range/Units 07:04 07:58 11:15 RBC 2.66 L (3.65-5.03) M/mm3 Hgb 8.5 L (10.1-14.3) gm/dl Hct 25.3 L D (30.3-42.9) % RDW 17.4 H (13.2-15.2) % APTT 50.5 H (24.2-36.6) Sec. POC Glucose (70-105) Crossmatch See Detail 03/30/19 03/30/19 03/30/19 Range/Units 11:36 17:40 22:51 RBC 2.48 L (3.65-5.03) M/mm3 Hgb 7.9 L (10.1-14.3) gm/dl Hct 23.9 L (30.3-42.9) % RDW 17.7 H (13.2-15.2) % APTT (24.2-36.6) Sec. POC Glucose 129 H 112 H (70-105) Crossmatch 03/30/19 03/31/19 Range/Units 23:47 05:00 RBC (3.65-5.03) M/mm3 Hgb 8.0 L (10.1-14.3) gm/dl Hct 23.7 L (30.3-42.9) % RDW (13.2-15.2) % APTT (24.2-36.6) Sec. POC Glucose 112 H (70-105) Crossmatch
--- NOTE | 2019-03-31 11:52 | Progress Note ---
Assessment and Plan Assessment and plan: --Acute hypoxic respiratory Failure intubated : Vent dependent Pulm cr care following, if unable to wean,patient may need trach and PEG --Severe Anemia: Drop in H/H transfused 1 unit PRBC. Hb 8.0 DC argatroban Closely monitor --Brief episode of Hypotension: improved with fluid bolus, --Digoxin toxicity;supratherapeutic level, off digoxin --Acute Right common femoral DVT and right IJ vein thrombosis argatroban drip dced due to severe anemia[requiring transfusion] Hemat following --Acute metabolic encephalopathy, cont supportive care, CT head negative --Sepsis due to aspiration pneumonia; Continue current antibiotics follow cultures --Septic shock: off pressor, weaned off, BP now stable --Paroxysmal Atrial fib, Now NSR on amioderone,metoprolol digoxin held Started low dose metoprolol --HA (acute kidney injury), atn and vasomotor nephrology, poa: Resolved Nephrology consulted renal function improved --Anemia, due to CD vs other cause Monitor H&H and transfuse additional as needed --RUL Aspiration pneumonia:on Merropenem --Hypernatremia: improved with Iv fluid --Hypomagnesemia: replete and follow as needed --Elevated troponin level/ NSTEMI II; Cardiology following --DVT prophylaxis --DNR status. Patient is vent dependent critically ill, poor prognosis recommended hospice,Family considering inpt hospice. Plan of care is reviewed with the patient's daughter and at the bedside Disposition; Pending Hospice placement when family decides CCT 34 minutes History Interval history: Patient examined medical records reviewed Intubated on ventilatory support Family members and daughter at the bedside The patient is alert and awake Vital signs noted Hospitalist Physical - Constitutional Vitals: Temp Pulse Resp BP Pulse Ox 100.6 F H 118 H 23 119/52 97 03/31/19 08:00 03/31/19 11:00 03/31/19 11:00 03/31/19 11:03/31/19 11:00 General appearance: Present: no acute distress, well-nourished, other (intubated on vent) - EENT Eyes: Present: PERRL, EOM intact - Neck Neck: Present: supple, normal ROM - Respiratory Respiratory effort: normal Respiratory: bilateral: diminished, rhonchi, negative: rales, wheezing - Cardiovascular Rhythm: regular Heart Sounds: Present: S1 & S2 - Extremities Extremities: no ischemia Extremity abnormal: edema - Abdominal General gastrointestinal: soft, non-tender, non-distended, normal bowel sounds - Integumentary Integumentary: Present: clear, warm - Psychiatric Psychiatric: other (patient is intubated on ventilatory support) - Neurologic Neurologic: other (on vent) Results - Labs CBC & Chem 7: 03/31/19 05:00 03/29/19 04:40 Labs: Laboratory Last Values WBC 8.7 K/mm3 (4.5-11.0) 03/30/19 22:51 RBC 2.48 M/mm3 (3.65-5.03) L 03/30/19 22:51 Hgb 8.0 gm/dl (10.1-14.3) L 03/31/19 05:00 Hct 23.7 % (30.3-42.9) L 03/31/19 05:00 MCV 97 fl (79-97) 03/30/19 22:51 MCH 32 pg (28-32) 03/30/19 22:51 MCHC 33 % (30-34) 03/30/19 22:51 RDW 17.7 % (13.2-15.2) H 03/30/19 22:51 Plt Count 158 K/mm3 (140-440) 03/31/19 05:00 Lymph % (Auto) 20.2 % (13.4-35.0) 03/29/19 04:40 [place] % (Auto) 7.1 % (0.0-7.3) 03/29/19 04:40 Eos % (Auto) 2.8 % (0.0-4.3) 03/29/19 04:40 Baso % (Auto) 0.6 % (0.0-1.8) 03/29/19 04:40 Lymph # 2.1 K/mm3 (1.2-5.4) 03/29/19 04:40 [place] # 0.7 K/mm3 (0.0-0.8) 03/29/19 04:40 Eos # 0.3 K/mm3 (0.0-0.4) 03/29/19 04:40 Baso # 0.1 K/mm3 (0.0-0.1) 03/29/19 04:40 Add Manual Diff Complete 03/28/19 01:05 Total Counted 100 03/28/19 01:05 Seg Neutrophils % 69.3 % (40.0-70.0) 03/29/19 04:40 Seg Neuts % (Manual) 84.0 % (40.0-70.0) H 03/28/19 01:05 0 % 03/28/19 01:05 10.0 % (13.4-35.0) L 03/28/19 01:05 Reactive Lymphs % (Man) 0 % 03/28/19 01:05 3.0 % (0.0-7.3) 03/28/19 01:05 2.0 % (0.0-4.3) 03/28/19 01:05 1.0 % (0.0-1.8) 03/28/19 01:05 0 % 03/28/19 01:05 0 % 03/28/19 01:05 0 % 03/28/19 01:05 0 % 03/28/19 01:05 Nucleated RBC % Not Reportable 03/28/19 01:05 Seg Neutrophils # 7.2 K/mm3 (1.8-7.7) 03/29/19 04:40 Seg Neutrophils # Man 12.1 K/mm3 (1.8-7.7) H 03/28/19 01:05 Band Neutrophils # 0.0 K/mm3 03/28/19 01:05 1.4 K/mm3 (1.2-5.4) 03/28/19 01:05 Abs React Lymphs (Man) 0.0 K/mm3 03/28/19 01:05 0.4 K/mm3 (0.0-0.8) 03/28/19 01:05 0.3 K/mm3 (0.0-0.4) 03/28/19 01:05 0.1 K/mm3 (0.0-0.1) 03/28/19 01:05 0.0 K/mm3 03/28/19 01:05 0.0 K/mm3 03/28/19 01:05 0.0 K/mm3 03/28/19 01:05 Blast Cells # 0.0 K/mm3 03/28/19 01:05 WBC Morphology Not Reportable 03/28/19 01:05 Hypersegmented Neuts Not Reportable 03/28/19 01:05 Hyposegmented Neuts Not Reportable 03/28/19 01:05 Hypogranular Neuts Not Reportable 03/28/19 01:05 Not Reportable 03/28/19 01:05 Not Reportable 03/28/19 01:05 Not Reportable 03/28/19 01:05 Not Reportable 03/28/19 01:05 Not Reportable 03/28/19 01:05 Not Reportable 03/28/19 01:05 Not Reportable 03/28/19 01:05 Not Reportable 03/28/19 01:05 Plt Clumps, EDTA Not Reportable 03/28/19 01:05 Not Reportable 03/28/19 01:05 Not Reportable 03/28/19 01:05 Not Reportable 03/28/19 01:05 Plt Morphology Comment Not Reportable 03/28/19 01:05 RBC Morphology Normal 03/28/19 01:05 Dimorphic RBCs Not Reportable 03/28/19 01:05 Not Reportable 03/28/19 01:05 Not Reportable 03/28/19 01:05 Not Reportable 03/28/19 01:05 Not Reportable 03/28/19 01:05 Not Reportable 03/28/19 01:05 Not Reportable 03/28/19 01:05 Not Reportable 03/28/19 01:05 Not Reportable 03/28/19 01:05 Not Reportable 03/28/19 01:05 Not Reportable 03/28/19 01:05 Not Reportable 03/28/19 01:05 Not Reportable 03/28/19 01:05 Not Reportable 03/28/19 01:05 Not Reportable 03/28/19 01:05 Not Reportable 03/28/19 01:05 Not Reportable 03/28/19 01:05 Not Reportable 03/28/19 01:05 Not Reportable 03/28/19 01:05 Not Reportable 03/28/19 01:05 Acanthocytes (Spur) Not Reportable 03/28/19 01:05 Rouleaux Not Reportable 03/28/19 01:05 Not Reportable 03/28/19 01:05 Not Reportable 03/28/19 01:05 Not Reportable 03/28/19 01:05 Not Reportable 03/28/19 01:05 Hem Pathologist Commnt No 03/28/19 01:05 PT 21.4 Sec. (12.2-14.9) H 03/27/19 14:04 INR 1.90 (0.87-1.13) H 03/27/19 14:04 APTT 50.5 Sec. (24.2-36.6) H 03/30/19 11:15 Heparin Anti-Xa, Unfract Negative (Negative) 03/27/19 13:30 POC ABG pH 7.411 (7.35-7.45) 03/25/19 05:40 POC ABG pCO2 33.3 (35-45) L 03/23/19 05:25 POC ABG pO2 83 (80-105) 03/25/19 05:40 POC ABG HCO3 17.7 (22-26 mml/L) 03/25/19 05:40 POC ABG Total CO2 19 (23-27mmol/L) 03/25/19 05:40 POC ABG O2 Sat 97 03/25/19 05:40 POC ABG Base Excess -7 ((-2) - (+3)mmol/L) 03/25/19 05:40 30 % 03/25/19 05:40 Sodium 140 mmol/L (137-145) 03/29/19 04:40 Potassium 3.7 mmol/L (3.6-5.0) 03/29/19 04:40 Chloride 102.9 mmol/L (98-107) 03/29/19 04:40 Carbon Dioxide 31 mmol/L (22-30) H 03/29/19 04:40 10 mmol/L 03/29/19 04:40 BUN 22 mg/dL (7-17) H 03/29/19 04:40 0.5 mg/dL (0.7-1.2) L 03/29/19 04:40 Estimated GFR > 60 ml/min 03/29/19 04:40 44 % 03/29/19 04:40 Glucose 80 mg/dL (65-100) 03/29/19 04:40 POC Glucose 99 (70-105) 03/31/19 05:11 4.2 % (4-6) 03/20/19 08:23 Lactic Acid 2.00 mmol/L (0.7-2.0) 03/23/19 04:50 Calcium 8.0 mg/dL (8.4-10.2) L 03/29/19 04:40 Phosphorus 2.00 mg/dL (2.5-4.5) L 03/20/19 17:50 Magnesium 1.70 mg/dL (1.7-2.3) 03/21/19 04:12 Iron 32 ug/dL (37-170) L 03/24/19 14:25 TIBC 75 mcg/dL (250-450) L 03/24/19 14:25 448.3 ng/mL (13.0-400.0) H 03/28/19 07:31 0.50 mg/dL (0.1-1.2) 03/29/19 04:40 0.3 mg/dL (0-0.2) H 03/27/19 13:31 0.2 mg/dL 03/27/19 13:31 AST 23 units/L (5-40) 03/29/19 04:40 ALT 9 units/L (7-56) 03/29/19 04:40 103 units/L (35-129) 03/29/19 04:40 1499 units/L (30-135) H 03/19/19 12:59 0.036 ng/mL (0.00-0.029) H 03/22/19 06:10 5.0 g/dL (6.3-8.2) L 03/29/19 04:40 1.4 g/dL (3.9-5) L 03/29/19 04:40 0.4 % 03/29/19 04:40 0.052 g/L (0.200-0.400) L 03/20/19 08:23 Triglycerides 72 mg/dL (2-149) 03/19/19 12:59 Cholesterol 61 mg/dL (50-199) 03/19/19 12:59 22 mg/dL (50-130) L 03/19/19 12:59 31 mg/dL (40-59) L 03/19/19 12:59 1.96 % 03/19/19 12:59 Vitamin B12 > 2000 pg/mL (211-911) H 03/25/19 10:11 18.61 ng/mL (7.3-26.0) 03/28/19 07:31 TSH 7.810 mlU/mL (0.270-4.200) H 03/22/19 06:10 Free T4 1.21 ng/dL (0.76-1.46) 03/22/19 06:10 PTH Intact 171.6 pg/mL (15-65) H 03/20/19 17:50 Yellow (Yellow) 03/19/19 12:47 Clear (Clear) 03/19/19 12:47 5.0 (5.0-7.0) 03/19/19 12:47 Ur Specific [place] 1.010 (1.003-1.030) 03/19/19 12:47 <15 mg/dl mg/dL (Negative) 03/19/19 12:47 50 mg/dL (Negative) 03/19/19 12:47 Neg mg/dL (Negative) 03/19/19 12:47 Lg (Negative) 03/19/19 12:47 Neg (Negative) 03/19/19 12:47 Neg (Negative) 03/19/19 12:47 < 2.0 mg/dL (<2.0) 03/19/19 12:47 Ur Leukocyte Esterase Neg (Negative) 03/19/19 12:47 2.0 /HPF (0.0-6.0) 03/19/19 12:47 2.0 /HPF (0.0-6.0) 03/19/19 12:47 U Epithel Cells (Auto) 1.0 /HPF (0-13.0) 03/19/19 12:47 1+ /HPF (Negative) 03/19/19 12:47 Hyaline Casts 3 /LPF 03/19/19 12:47 Few /HPF 03/19/19 12:47 None seen (None Seen) 03/20/19 16:40 53.7 mg/dL (0.1-20.0) H 03/20/19 16:40 3.8 mg/dL (0.1-34.0) 03/20/19 16:40 Microalb/Creat Ratio 70.7 ug/mg 03/20/19 16:40 116 mmol/L 03/20/19 16:40 36 mg/dL (5-11.8) H 03/20/19 16:40 Vancomycin Trough 23.0 ug/mL (5.0-20.0) H 03/27/19 09:04 Digoxin 2.6 ng/mL (0.9-2.0) H* 03/30/19 04:42 Salicylates < 0.3 mg/dL (2.8-20.0) L 03/19/19 12:59 Acetaminophen < 5.0 ug/mL (10.0-30.0) L 03/19/19 12:59 Heparin-induced Plt Ab Negative (Negative) 03/27/19 13:30 UF Heparin High Dose 0 % Release 03/27/19 13:30 SEMAJ UFH Low Dose 0.1 0 % Release 03/27/19 13:30 SEMAJ UFH Low Dose 0.5 0 % Release 03/27/19 13:30 Blood Type O POSITIVE 03/30/19 07:04 Antibody Screen Negative 03/30/19 07:04 Crossmatch See Detail 03/30/19 07:04 Active Medications - Current Medications Current Medications: Generic Name Dose Route Start Last Admin Trade Name Freq PRN Reason Stop Dose Admin Acetaminophen 650 mg 03/24/19 23:48 03/31/19 09:35 Tylenol FEEDTUBE 650 mg Q6H PRN Administration Fever >101 Albuterol 2.5 mg 03/19/19 23:58 Proventil IH Q3HRT PRN Shortness Of Breath Albuterol/Ipratropium 1 ampul 03/20/19 02:00 03/31/19 08:34 Duoneb *Not For Prn Use* IH 1 ampul Q6HRT YUSUF Administration Amiodarone HCl 200 mg 03/22/19 22:00 03/31/19 09:36 Cordarone PO 200 mg BID YUSUF Administration Lipase/Protease/Amylase 1 each 03/22/19 16:03 Pancretobi Sargent 10,500 Unit FEEDTUBE PRN PRN For Clogged Feeding Tube Aspirin 81 mg 03/21/19 10:00 03/31/19 09:36 Baby Aspirin PO 81 mg DAILY YUSUF Administration Budesonide 0.5 mg 03/19/19 23:45 03/31/19 08:34 Pulmicort IH 0.5 mg Q12HRT YUSUF Administration Dextrose 50 ml 03/19/19 23:58 03/21/19 16:29 D50w (25gm) Syringe IV 50 ml PRN PRN Administration Hypoglycemia Famotidine 20 mg 03/22/19 10:00 03/31/19 09:36 Pepcid PO 20 mg BID YUSUF Administration Fentanyl 50 mcg 03/19/19 12:45 03/19/19 13:26 Sublimaze IV 50 mcg Q10MIN PRN Administration ANALGESIA Hydromorphone HCl 0.5 mg 03/19/19 23:58 Dilaudid IV Q3H PRN Pain , Severe (7-10) Hydrophilic Ointment 1 applic 03/19/19 12:45 Vaseline Lip Therapy TP Q2HR PRN Dry Lips Fentanyl Citrate 2,000 mcg in 100 mls @ 2.835 mls/hr 03/19/19 14:00 03/21/19 11:33 Fentanyl Drip Premix IV 0 mcg/kg/hr TITR YUSUF 0 mls/hr Titration Protocol 1 MCG/KG/HR Norepinephrine 4 mg in 250 mls @ 7.5 mls/hr 03/25/19 11:00 03/30/19 23:45 Levophed Drip 4 Mg/Ns 250 Ml IV 0 mcg/min TITR YUSUF 0 mls/hr Titration Protocol 2 MCG/MIN Meropenem 1,000 mg/ Sodium 100 mls @ 100 mls/hr 03/26/19 15:00 03/31/19 06:17 Chloride IV 100 mls/hr Q8HR YUSUF Administration Protocol Vancomycin HCl 1,250 mg/ 275 mls @ 166.667 mls/hr 03/30/19 13:00 03/31/19 09:35 Sodium Chloride IV 166.667 mls/hr Q24HR YUSUF Administration Insulin Human Lispro 0 unit 03/20/19 00:00 03/31/19 06:18 Humalog SUB-Q Not Given Q6HR [facility] Protocol Metoclopramide HCl 5 mg 03/20/19 00:12 Reglan IV Q6H PRN Nausea And Vomiting Metoprolol Tartrate 2.5 mg 03/23/19 13:17 03/24/19 21:20 Lopressor IV 2.5 mg Q2HR PRN Administration HR >150 Multi-Ingred Cream/Lotion/Oil/Oint 1 applic 03/19/19 12:45 Artificial Tears Ophth Oint OU Q4HR PRN Dry Eye(s) Ondansetron HCl 4 mg 03/19/19 23:58 Zofran IV Q8H PRN Nausea And Vomiting Promethazine HCl 25 mg 03/19/19 23:58 Phenergan MS Q6H PRN N/V IF NPO AND NO IV ACCESS Simple Syrup 15 ml 03/22/19 16:03 03/23/19 07:21 Simple Syrup FEEDTUBE 15 ml PRN PRN Administration Hypoglycemia Simple Syrup 30 ml 03/22/19 16:03 Simple Syrup FEEDTUBE PRN PRN Hypoglycemia Sodium Bicarbonate 325 mg 03/22/19 16:03 Sodium Bicarbonate FEEDTUBE PRN PRN For Clogged Feeding Tube Sodium Chloride 10 ml 03/20/19 10:00 03/31/19 09:36 Sodium Chloride Flush Syringe 10 Ml IV 10 ml BID YUSUF Administration Sodium Chloride 10 ml 03/19/19 23:58 Sodium Chloride Flush Syringe 10 Ml IV PRN PRN LINE FLUSH Nutrition/Malnutrition Assess - Dietary Evaluation Nutrition/Malnutrition Findings: Nutrition Notes Start: 03/20/19 15:29 Freq: Status: Active Protocol: Document 03/24/19 15:45 RM (Rec: 03/24/19 15:47 RM [email or web address]) Nutrition Notes Initial or Follow up Reassessment Other Pertinent Diagnosis Hx CVA, dementia, R buttock skin tear Current Diet Vital 1.2 at 45 ml/hr Labs/Tests Reviewed Pertinent Medications Reviewed Height 5 ft 5 in Weight 62.1 kg [place] Body Weight (kg) 56.81 BMI 22.8 Subjective/Other Information Observed Vital 1.2 infusing at goal rate. Per nurse is pt tolerating TF. Percent of energy/protein needs met: 95%/100% Burn Absent Trauma Absent #1 Nutrition Diagnosis Inadequate oral intake Diagnosis Progress(for reassessment Continues documentation) Is patient on ventilator? Yes Is Patient Ambulatory and/or Out of Bed No REE-([facility]-confined to bed) 1370.316 Calculation Used for Recommendations [facility] Additional Notes Protein Needs: 75-124g (1.2-2g /kg) Fluid Needs: 1 ml/kcal Nutrition Intervention Nutrition Support: Vital 1.2 at 45 ml/hr Water flush of 100 mls 4 q hrs Kcal 1,296 Protein (gm) 81 Fluid (mL) 876 Goal #1 TF tolerance Goal #2 Continue to meet at least 80% of calorie and protein needs via TF Anticipated Discharge Needs: Unable to determine at this time Follow-Up By: 03/31/19 Additional Comments Follow for TF tolerance
--- NOTE | 2019-03-31 14:15 | Progress Note ---
Assessment and Plan 73 y/o female found unresponsive now intubated and septic, etiology thought secondary to pneumonia with anemia and thrombocytopenia, and persistent fevers found to have multiple DVT's. 1. Anticoagulation stopped given drop in HgB but I have ordered a stat CBC and repeat CBC at 2000 tonight. Follow up any new heme recs 2. Continue IV abx therapy as per ID. Agree with adding Gram positive coverage with Vanc 3. Long discussion with daughter Caterina over the phone (03/29). Will attempt to meet with her tomorrow to discuss termination clerk goals of care. Patient was on home hospice not for a terminal illness (seizures) but the daughter needed more help which she could not get from any other services. The patient has essentially been bed bound for the last several years but this is the sickest she has been since the strokes. 4. Family now looking at inpatient hospice facilities. Case Management is aware. Will transition to there once family decides on a place. Continue supportive measures until then. CCT 31 minutes. Subjective Date of service: 03/31/19 Principal diagnosis: low plt - DVT Interval history: Long discussion at bedside last night with 2 daughters, a granddaughter and the . ONe of the daughters has been the primary caregiver since 2006 when the patient first had strokes. They understand the severity of the illness at hand and are wanting their family member to be comfortable. She is continuing to spike fevers despite the addition of Vanc. Family at bedside again this afternoon. Objective Vital Signs - 12hr 03/31/19 03/31/19 03/31/19 02:15 02:30 02:45 Temperature Pulse Rate 113 H 111 H 111 H Pulse Rate [ Anterior Bilateral Throughout] Pulse Rate [ From Monitor] Respiratory 20 17 20 Rate Respiratory Rate [Anterior Bilateral Throughout] Blood Pressure 128/40 137/35 129/44 O2 Sat by Pulse 99 97 96 Oximetry 03/31/19 03/31/19 03/31/19 03:00 03:15 03:18 Temperature 99.3 F Pulse Rate 111 H 111 H Pulse Rate [ 120 H Anterior Bilateral Throughout] Pulse Rate [ From Monitor] Respiratory 13 18 Rate Respiratory 18 Rate [Anterior Bilateral Throughout] Blood Pressure 136/55 129/50 O2 Sat by Pulse 94 95 Oximetry 03/31/19 03/31/19 03/31/19 03:28 03:30 03:45 Temperature Pulse Rate 114 H 114 H 110 H Pulse Rate [ Anterior Bilateral Throughout] Pulse Rate [ From Monitor] Respiratory 26 H 22 Rate Respiratory Rate [Anterior Bilateral Throughout] Blood Pressure 142/57 142/57 152/47 O2 Sat by Pulse 96 94 97 Oximetry 03/31/19 03/31/19 03/31/19 04:00 04:15 04:30 Temperature 98.1 F Pulse Rate 109 H 111 H 110 H Pulse Rate [ Anterior Bilateral Throughout] Pulse Rate [ 115 H From Monitor] Respiratory 18 25 H 19 Rate Respiratory Rate [Anterior Bilateral Throughout] Blood Pressure 135/49 128/59 125/41 O2 Sat by Pulse 95 97 97 Oximetry 03/31/19 03/31/19 03/31/19 04:45 05:00 05:15 Temperature Pulse Rate 111 H 112 H 115 H Pulse Rate [ Anterior Bilateral Throughout] Pulse Rate [ From Monitor] Respiratory 21 28 H 26 H Rate Respiratory Rate [Anterior Bilateral Throughout] Blood Pressure 136/61 143/65 144/67 O2 Sat by Pulse 98 99 98 Oximetry 03/31/19 03/31/19 03/31/19 05:30 05:45 06:00 Temperature Pulse Rate 113 H 127 H 114 H Pulse Rate [ Anterior Bilateral Throughout] Pulse Rate [ From Monitor] Respiratory 32 H 29 H 19 Rate Respiratory Rate [Anterior Bilateral Throughout] Blood Pressure 129/54 146/79 152/66 O2 Sat by Pulse 98 99 98 Oximetry 03/31/19 03/31/19 03/31/19 06:15 06:30 06:45 Temperature Pulse Rate 114 H 116 H 114 H Pulse Rate [ Anterior Bilateral Throughout] Pulse Rate [ From Monitor] Respiratory 32 H 14 21 Rate Respiratory Rate [Anterior Bilateral Throughout] Blood Pressure 137/54 142/57 160/55 O2 Sat by Pulse 99 98 98 Oximetry 03/31/19 03/31/19 03/31/19 07:00 07:15 07:30 Temperature Pulse Rate 114 H 117 H 116 H Pulse Rate [ Anterior Bilateral Throughout] Pulse Rate [ From Monitor] Respiratory 30 H 26 H 15 Rate Respiratory Rate [Anterior Bilateral Throughout] Blood Pressure 151/61 152/69 170/69 O2 Sat by Pulse 98 98 99 Oximetry 03/31/19 03/31/19 03/31/19 07:45 08:00 08:15 Temperature 100.6 F H Pulse Rate 116 H 118 H 115 H Pulse Rate [ Anterior Bilateral Throughout] Pulse Rate [ 118 H From Monitor] Respiratory 24 26 H 19 Rate Respiratory Rate [Anterior Bilateral Throughout] Blood Pressure 145/63 155/71 132/56 O2 Sat by Pulse 98 99 98 Oximetry 03/31/19 03/31/19 03/31/19 08:30 08:35 08:36 Temperature Pulse Rate 118 H 118 H Pulse Rate [ 116 H Anterior Bilateral Throughout] Pulse Rate [ From Monitor] Respiratory 21 Rate Respiratory 28 H Rate [Anterior Bilateral Throughout] Blood Pressure 153/76 153/76 O2 Sat by Pulse 98 100 Oximetry 03/31/19 03/31/19 03/31/19 08:45 09:01 09:15 Temperature Pulse Rate 118 H 117 H 119 H Pulse Rate [ Anterior Bilateral Throughout] Pulse Rate [ From Monitor] Respiratory 20 17 21 Rate Respiratory Rate [Anterior Bilateral Throughout] Blood Pressure 133/70 115/70 126/63 O2 Sat by Pulse 98 95 95 Oximetry 03/31/19 03/31/19 03/31/19 09:30 09:45 10:00 Temperature Pulse Rate 116 H 118 H 116 H Pulse Rate [ Anterior Bilateral Throughout] Pulse Rate [ From Monitor] Respiratory 22 19 34 H Rate Respiratory Rate [Anterior Bilateral Throughout] Blood Pressure 144/65 158/59 157/63 O2 Sat by Pulse 98 97 99 Oximetry 03/31/19 03/31/19 03/31/19 10:15 10:30 10:45 Temperature Pulse Rate 115 H 119 H 114 H Pulse Rate [ Anterior Bilateral Throughout] Pulse Rate [ From Monitor] Respiratory 27 H 36 H 29 H Rate Respiratory Rate [Anterior Bilateral Throughout] Blood Pressure 143/59 132/59 125/51 O2 Sat by Pulse 98 96 97 Oximetry 03/31/19 03/31/19 03/31/19 11:00 11:15 11:30 Temperature Pulse Rate 118 H 115 H 115 H Pulse Rate [ Anterior Bilateral Throughout] Pulse Rate [ From Monitor] Respiratory 23 32 H 36 H Rate Respiratory Rate [Anterior Bilateral Throughout] Blood Pressure 119/52 127/51 110/47 O2 Sat by Pulse 97 96 97 Oximetry 03/31/19 03/31/19 03/31/19 11:45 12:00 12:15 Temperature 98.3 F Pulse Rate 116 H 112 H 111 H Pulse Rate [ Anterior Bilateral Throughout] Pulse Rate [ 112 H From Monitor] Respiratory 31 H 28 H 24 Rate Respiratory Rate [Anterior Bilateral Throughout] Blood Pressure 116/57 133/45 123/50 O2 Sat by Pulse 96 97 97 Oximetry 03/31/19 03/31/19 03/31/19 12:30 12:45 13:00 Temperature Pulse Rate 115 H 113 H 112 H Pulse Rate [ Anterior Bilateral Throughout] Pulse Rate [ From Monitor] Respiratory 29 H 23 25 H Rate Respiratory Rate [Anterior Bilateral Throughout] Blood Pressure 119/46 111/41 101/39 O2 Sat by Pulse 98 98 98 Oximetry Constitutional: lethargic, other (intubated on vent responds to name. follows commands) Eyes: non-icteric ENT: other (intubated ) Neck: supple Effort: mildly labored, other (poor efforts ) Ascultation: Bilateral: diminished breath sounds (grossly clear ), rales (coarse bilat ) Percussion: Bilateral: not dull, dull Cardiovascular: other (tachy AF ) Gastrointestinal: hypoactive bowel sounds Integumentary: normal Extremities: anasarca Neurologic: unable to assess CBC and BMP: 03/31/19 05:00 03/29/19 04:40 ABG, PT/INR, D-dimer: ABG POC ABG pH 7.411 (7.35-7.45) 03/25/19 05:40 POC ABG pO2 83 (80-105) 03/25/19 05:40 POC ABG HCO3 17.7 (22-26 mml/L) 03/25/19 05:40 POC ABG Total CO2 19 (23-27mmol/L) 03/25/19 05:40 POC ABG O2 Sat 97 03/25/19 05:40 PT/INR, D-dimer PT 21.4 Sec. (12.2-14.9) H 03/27/19 14:04 INR 1.90 (0.87-1.13) H 03/27/19 14:04 Abnormal lab findings: Abnormal Labs 03/19/19 03/19/19 03/19/19 12:59 12:59 12:59 WBC RBC 3.44 L Hgb Hct MCV 101 H MCH 34 H MCHC RDW Plt Count 98 L Lymph % (Auto) [place] % (Auto) Lymph # [place] # Seg Neutrophils % Seg Neuts % (Manual) 11.0 L Lymphocytes % (Manual) Monocytes % (Manual) 10.0 H Eosinophils % (Manual) Nucleated RBC % 1.0 H Seg Neutrophils # Seg Neutrophils # Man 0.6 L Lymphocytes # (Manual) Monocytes # (Manual) Eosinophils # (Manual) PT INR APTT POC ABG pH POC ABG pCO2 POC ABG pO2 Sodium 149 H Potassium Chloride 109.4 H Carbon Dioxide BUN 51 H Creatinine 3.2 H Glucose 58 L POC Glucose Lactic Acid 7.60 H* Calcium 7.8 L Phosphorus Magnesium 1.60 L Iron TIBC Ferritin Direct Bilirubin AST 75 H Total Creatine Kinase 1499 H Troponin T 0.109 H* Total Protein 5.2 L Albumin 1.7 L Prealbumin LDL Cholesterol Direct 22 L HDL Cholesterol 31 L Vitamin B12 TSH PTH Intact Urine Creatinine Urine Total Protein Vancomycin Trough Digoxin Salicylates Acetaminophen Crossmatch 03/19/19 03/19/19 03/19/19 12:59 12:59 14:48 WBC RBC Hgb Hct MCV MCH MCHC RDW Plt Count Lymph % (Auto) [place] % (Auto) Lymph # [place] # Seg Neutrophils % Seg Neuts % (Manual) Lymphocytes % (Manual) Monocytes % (Manual) Eosinophils % (Manual) Nucleated RBC % Seg Neutrophils # Seg Neutrophils # Man Lymphocytes # (Manual) Monocytes # (Manual) Eosinophils # (Manual) PT INR APTT POC ABG pH POC ABG pCO2 POC ABG pO2 Sodium Potassium Chloride Carbon Dioxide BUN Creatinine Glucose POC Glucose 44 L Lactic Acid Calcium Phosphorus Magnesium Iron TIBC Ferritin Direct Bilirubin AST Total Creatine Kinase Troponin T Total Protein Albumin Prealbumin LDL Cholesterol Direct HDL Cholesterol Vitamin B12 TSH PTH Intact Urine Creatinine Urine Total Protein Vancomycin Trough Digoxin Salicylates < 0.3 L Acetaminophen < 5.0 L Crossmatch 03/19/19 03/19/19 03/19/19 15:33 15:52 16:26 WBC RBC Hgb Hct MCV MCH MCHC RDW Plt Count Lymph % (Auto) [place] % (Auto) Lymph # [place] # Seg Neutrophils % Seg Neuts % (Manual) Lymphocytes % (Manual) Monocytes % (Manual) Eosinophils % (Manual) Nucleated RBC % Seg Neutrophils # Seg Neutrophils # Man Lymphocytes # (Manual) Monocytes # (Manual) Eosinophils # (Manual) PT INR APTT POC ABG pH POC ABG pCO2 POC ABG pO2 Sodium Potassium Chloride Carbon Dioxide BUN Creatinine Glucose POC Glucose 228 H 231 H Lactic Acid Calcium Phosphorus Magnesium Iron TIBC Ferritin Direct Bilirubin AST Total Creatine Kinase Troponin T Total Protein Albumin Prealbumin LDL Cholesterol Direct HDL Cholesterol Vitamin B12 TSH PTH Intact Urine Creatinine 31.8 H Urine Total Protein Vancomycin Trough Digoxin Salicylates Acetaminophen Crossmatch 03/19/19 03/19/19 03/19/19 16:38 17:14 18:43 WBC RBC Hgb Hct MCV MCH MCHC RDW Plt Count Lymph % (Auto) [place] % (Auto) Lymph # [place] # Seg Neutrophils % Seg Neuts % (Manual) Lymphocytes % (Manual) Monocytes % (Manual) Eosinophils % (Manual) Nucleated RBC % Seg Neutrophils # Seg Neutrophils # Man Lymphocytes # (Manual) Monocytes # (Manual) Eosinophils # (Manual) PT INR APTT POC ABG pH 7.196 L POC ABG pCO2 30.8 L POC ABG pO2 Sodium Potassium Chloride Carbon Dioxide BUN Creatinine Glucose POC Glucose 235 H Lactic Acid 8.10 H* Calcium Phosphorus Magnesium Iron TIBC Ferritin Direct Bilirubin AST Total Creatine Kinase Troponin T Total Protein Albumin Prealbumin LDL Cholesterol Direct HDL Cholesterol Vitamin B12 TSH PTH Intact Urine Creatinine Urine Total Protein Vancomycin Trough Digoxin Salicylates Acetaminophen Crossmatch 03/19/19 03/19/19 03/19/19 18:52 20:00 20:56 WBC RBC Hgb Hct MCV MCH MCHC RDW Plt Count Lymph % (Auto) [place] % (Auto) Lymph # [place] # Seg Neutrophils % Seg Neuts % (Manual) Lymphocytes % (Manual) Monocytes % (Manual) Eosinophils % (Manual) Nucleated RBC % Seg Neutrophils # Seg Neutrophils # Man Lymphocytes # (Manual) Monocytes # (Manual) Eosinophils # (Manual) PT INR APTT POC ABG pH POC ABG pCO2 POC ABG pO2 Sodium Potassium Chloride Carbon Dioxide BUN Creatinine Glucose POC Glucose 240 H 117 H Lactic Acid 5.90 H* Calcium Phosphorus Magnesium Iron TIBC Ferritin Direct Bilirubin AST Total Creatine Kinase Troponin T Total Protein Albumin Prealbumin LDL Cholesterol Direct HDL Cholesterol Vitamin B12 TSH PTH Intact Urine Creatinine Urine Total Protein Vancomycin Trough Digoxin Salicylates Acetaminophen Crossmatch 03/19/19 03/19/19 03/19/19 21:19 22:07 23:00 WBC RBC Hgb Hct MCV MCH MCHC RDW Plt Count Lymph % (Auto) [place] % (Auto) Lymph # [place] # Seg Neutrophils % Seg Neuts % (Manual) Lymphocytes % (Manual) Monocytes % (Manual) Eosinophils % (Manual) Nucleated RBC % Seg Neutrophils # Seg Neutrophils # Man Lymphocytes # (Manual) Monocytes # (Manual) Eosinophils # (Manual) PT INR APTT POC ABG pH POC ABG pCO2 POC ABG pO2 Sodium Potassium Chloride Carbon Dioxide BUN Creatinine Glucose POC Glucose < 40 L 136 H Lactic Acid 6.10 H* Calcium Phosphorus Magnesium Iron TIBC Ferritin Direct Bilirubin AST Total Creatine Kinase Troponin T Total Protein Albumin Prealbumin LDL Cholesterol Direct HDL Cholesterol Vitamin B12 TSH PTH Intact Urine Creatinine Urine Total Protein Vancomycin Trough Digoxin Salicylates Acetaminophen Crossmatch 03/20/19 03/20/19 03/20/19 00:05 01:38 02:23 WBC RBC Hgb Hct MCV MCH MCHC RDW Plt Count Lymph % (Auto) [place] % (Auto) Lymph # [place] # Seg Neutrophils % Seg Neuts % (Manual) Lymphocytes % (Manual) Monocytes % (Manual) Eosinophils % (Manual) Nucleated RBC % Seg Neutrophils # Seg Neutrophils # Man Lymphocytes # (Manual) Monocytes # (Manual) Eosinophils # (Manual) PT INR APTT POC ABG pH POC ABG pCO2 POC ABG pO2 Sodium Potassium Chloride Carbon Dioxide BUN Creatinine Glucose POC Glucose 68 L 153 H 127 H Lactic Acid Calcium Phosphorus Magnesium Iron TIBC Ferritin Direct Bilirubin AST Total Creatine Kinase Troponin T Total Protein Albumin Prealbumin LDL Cholesterol Direct HDL Cholesterol Vitamin B12 TSH PTH Intact Urine Creatinine Urine Total Protein Vancomycin Trough Digoxin Salicylates Acetaminophen Crossmatch 03/20/19 03/20/19 03/20/19 03:12 04:31 04:41 WBC RBC Hgb Hct MCV MCH MCHC RDW Plt Count Lymph % (Auto) [place] % (Auto) Lymph # [place] # Seg Neutrophils % Seg Neuts % (Manual) Lymphocytes % (Manual) Monocytes % (Manual) Eosinophils % (Manual) Nucleated RBC % Seg Neutrophils # Seg Neutrophils # Man Lymphocytes # (Manual) Monocytes # (Manual) Eosinophils # (Manual) PT INR APTT POC ABG pH POC ABG pCO2 POC ABG pO2 53 L 65 L Sodium Potassium Chloride Carbon Dioxide BUN Creatinine Glucose POC Glucose 109 H Lactic Acid Calcium Phosphorus Magnesium Iron TIBC Ferritin Direct Bilirubin AST Total Creatine Kinase Troponin T Total Protein Albumin Prealbumin LDL Cholesterol Direct HDL Cholesterol Vitamin B12 TSH PTH Intact Urine Creatinine Urine Total Protein Vancomycin Trough Digoxin Salicylates Acetaminophen Crossmatch 03/20/19 03/20/19 03/20/19 05:50 07:29 08:14 WBC RBC Hgb Hct MCV MCH MCHC RDW Plt Count Lymph % (Auto) [place] % (Auto) Lymph # [place] # Seg Neutrophils % Seg Neuts % (Manual) Lymphocytes % (Manual) Monocytes % (Manual) Eosinophils % (Manual) Nucleated RBC % Seg Neutrophils # Seg Neutrophils # Man Lymphocytes # (Manual) Monocytes # (Manual) Eosinophils # (Manual) PT INR APTT POC ABG pH POC ABG pCO2 POC ABG pO2 Sodium Potassium Chloride Carbon Dioxide BUN Creatinine Glucose 61 L POC Glucose 47 L 153 H Lactic Acid Calcium Phosphorus Magnesium 1.60 L Iron TIBC Ferritin Direct Bilirubin AST Total Creatine Kinase Troponin T Total Protein Albumin Prealbumin LDL Cholesterol Direct HDL Cholesterol Vitamin B12 TSH PTH Intact Urine Creatinine Urine Total Protein Vancomycin Trough Digoxin Salicylates Acetaminophen Crossmatch 03/20/19 03/20/19 03/20/19 08:23 08:23 10:59 WBC RBC Hgb Hct MCV MCH MCHC RDW Plt Count Lymph % (Auto) [place] % (Auto) Lymph # [place] # Seg Neutrophils % Seg Neuts % (Manual) Lymphocytes % (Manual) Monocytes % (Manual) Eosinophils % (Manual) Nucleated RBC % Seg Neutrophils # Seg Neutrophils # Man Lymphocytes # (Manual) Monocytes # (Manual) Eosinophils # (Manual) PT INR APTT POC ABG pH POC ABG pCO2 POC ABG pO2 Sodium Potassium Chloride Carbon Dioxide BUN Creatinine Glucose 101 H POC Glucose 233 H Lactic Acid 9.70 H* Calcium Phosphorus Magnesium Iron TIBC Ferritin Direct Bilirubin AST Total Creatine Kinase Troponin T Total Protein Albumin Prealbumin 0.052 L LDL Cholesterol Direct HDL Cholesterol Vitamin B12 TSH PTH Intact Urine Creatinine Urine Total Protein Vancomycin Trough Digoxin Salicylates Acetaminophen Crossmatch 03/20/19 03/20/19 03/20/19 12:23 16:10 16:40 WBC RBC Hgb Hct MCV MCH MCHC RDW Plt Count Lymph % (Auto) [place] % (Auto) Lymph # [place] # Seg Neutrophils % Seg Neuts % (Manual) Lymphocytes % (Manual) Monocytes % (Manual) Eosinophils % (Manual) Nucleated RBC % Seg Neutrophils # Seg Neutrophils # Man Lymphocytes # (Manual) Monocytes # (Manual) Eosinophils # (Manual) PT INR APTT POC ABG pH POC ABG pCO2 POC ABG pO2 Sodium Potassium Chloride Carbon Dioxide BUN Creatinine Glucose POC Glucose 135 H 171 H Lactic Acid Calcium Phosphorus Magnesium Iron TIBC Ferritin Direct Bilirubin AST Total Creatine Kinase Troponin T Total Protein Albumin Prealbumin LDL Cholesterol Direct HDL Cholesterol Vitamin B12 TSH PTH Intact Urine Creatinine 53.7 H Urine Total Protein 36 H Vancomycin Trough Digoxin Salicylates Acetaminophen Crossmatch 03/20/19 03/20/19 03/20/19 16:57 17:38 17:50 WBC RBC Hgb Hct MCV MCH MCHC RDW Plt Count Lymph % (Auto) [place] % (Auto) Lymph # [place] # Seg Neutrophils % Seg Neuts % (Manual) Lymphocytes % (Manual) Monocytes % (Manual) Eosinophils % (Manual) Nucleated RBC % Seg Neutrophils # Seg Neutrophils # Man Lymphocytes # (Manual) Monocytes # (Manual) Eosinophils # (Manual) PT INR APTT POC ABG pH POC ABG pCO2 POC ABG pO2 Sodium Potassium Chloride Carbon Dioxide BUN Creatinine Glucose POC Glucose 152 H 147 H Lactic Acid 9.90 H* Calcium Phosphorus Magnesium Iron TIBC Ferritin Direct Bilirubin AST Total Creatine Kinase Troponin T Total Protein Albumin Prealbumin LDL Cholesterol Direct HDL Cholesterol Vitamin B12 TSH PTH Intact Urine Creatinine Urine Total Protein Vancomycin Trough Digoxin Salicylates Acetaminophen Crossmatch 03/20/19 03/20/19 03/20/19 17:50 17:50 17:50 WBC RBC 2.92 L Hgb 10.0 L Hct 29.3 L MCV 100 H MCH 34 H MCHC RDW Plt Count 81 L Lymph % (Auto) [place] % (Auto) Lymph # [place] # Seg Neutrophils % Seg Neuts % (Manual) Lymphocytes % (Manual) Monocytes % (Manual) Eosinophils % (Manual) Nucleated RBC % Seg Neutrophils # Seg Neutrophils # Man Lymphocytes # (Manual) Monocytes # (Manual) Eosinophils # (Manual) PT INR APTT POC ABG pH POC ABG pCO2 POC ABG pO2 Sodium Potassium 2.8 L* D Chloride Carbon Dioxide BUN 30 H Creatinine 1.6 H Glucose 107 H POC Glucose Lactic Acid Calcium 6.9 L Phosphorus 2.00 L Magnesium Iron TIBC Ferritin Direct Bilirubin AST Total Creatine Kinase Troponin T Total Protein Albumin Prealbumin LDL Cholesterol Direct HDL Cholesterol Vitamin B12 TSH PTH Intact 171.6 H Urine Creatinine Urine Total Protein Vancomycin Trough Digoxin Salicylates Acetaminophen Crossmatch 03/20/19 03/21/19 03/21/19 21:12 00:30 04:12 WBC RBC Hgb Hct MCV MCH MCHC RDW Plt Count Lymph % (Auto) [place] % (Auto) Lymph # [place] # Seg Neutrophils % Seg Neuts % (Manual) Lymphocytes % (Manual) Monocytes % (Manual) Eosinophils % (Manual) Nucleated RBC % Seg Neutrophils # Seg Neutrophils # Man Lymphocytes # (Manual) Monocytes # (Manual) Eosinophils # (Manual) PT INR APTT POC ABG pH POC ABG pCO2 POC ABG pO2 Sodium Potassium 3.0 L Chloride Carbon Dioxide 21 L BUN Creatinine 1.4 H Glucose 103 H POC Glucose Lactic Acid 8.70 H* 9.40 H* Calcium 6.8 L Phosphorus Magnesium Iron TIBC Ferritin Direct Bilirubin AST Total Creatine Kinase Troponin T Total Protein Albumin Prealbumin LDL Cholesterol Direct HDL Cholesterol Vitamin B12 TSH PTH Intact Urine Creatinine Urine Total Protein Vancomycin Trough Digoxin Salicylates Acetaminophen Crossmatch 03/21/19 03/21/19 03/21/19 04:12 04:12 04:43 WBC RBC 2.84 L Hgb 9.5 L Hct 28.3 L MCV 100 H MCH 33 H MCHC RDW Plt Count 79 L Lymph % (Auto) [place] % (Auto) Lymph # [place] # Seg Neutrophils % Seg Neuts % (Manual) Lymphocytes % (Manual) Monocytes % (Manual) Eosinophils % (Manual) Nucleated RBC % Seg Neutrophils # Seg Neutrophils # Man Lymphocytes # (Manual) Monocytes # (Manual) Eosinophils # (Manual) PT INR APTT POC ABG pH 7.456 H POC ABG pCO2 POC ABG pO2 Sodium Potassium Chloride Carbon Dioxide BUN Creatinine Glucose POC Glucose Lactic Acid 9.50 H* Calcium Phosphorus Magnesium Iron TIBC Ferritin Direct Bilirubin AST Total Creatine Kinase Troponin T Total Protein Albumin Prealbumin LDL Cholesterol Direct HDL Cholesterol Vitamin B12 TSH PTH Intact Urine Creatinine Urine Total Protein Vancomycin Trough Digoxin Salicylates Acetaminophen Crossmatch 03/21/19 03/21/19 03/21/19 08:06 08:08 10:11 WBC RBC Hgb Hct MCV MCH MCHC RDW Plt Count Lymph % (Auto) [place] % (Auto) Lymph # [place] # Seg Neutrophils % Seg Neuts % (Manual) Lymphocytes % (Manual) Monocytes % (Manual) Eosinophils % (Manual) Nucleated RBC % Seg Neutrophils # Seg Neutrophils # Man Lymphocytes # (Manual) Monocytes # (Manual) Eosinophils # (Manual) PT INR APTT POC ABG pH POC ABG pCO2 POC ABG pO2 Sodium Potassium 3.5 L Chloride Carbon Dioxide BUN 22 H Creatinine 1.3 H Glucose POC Glucose 64 L Lactic Acid 8.00 H* Calcium 7.0 L Phosphorus Magnesium Iron TIBC Ferritin Direct Bilirubin AST Total Creatine Kinase Troponin T Total Protein Albumin Prealbumin LDL Cholesterol Direct HDL Cholesterol Vitamin B12 TSH PTH Intact Urine Creatinine Urine Total Protein Vancomycin Trough Digoxin Salicylates Acetaminophen Crossmatch 03/21/19 03/21/19 03/21/19 11:17 12:17 13:37 WBC RBC Hgb Hct MCV MCH MCHC RDW Plt Count Lymph % (Auto) [place] % (Auto) Lymph # [place] # Seg Neutrophils % Seg Neuts % (Manual) Lymphocytes % (Manual) Monocytes % (Manual) Eosinophils % (Manual) Nucleated RBC % Seg Neutrophils # Seg Neutrophils # Man Lymphocytes # (Manual) Monocytes # (Manual) Eosinophils # (Manual) PT INR APTT POC ABG pH POC ABG pCO2 POC ABG pO2 Sodium Potassium Chloride Carbon Dioxide BUN Creatinine Glucose POC Glucose 173 H 110 H Lactic Acid Calcium Phosphorus Magnesium Iron TIBC Ferritin Direct Bilirubin AST Total Creatine Kinase Troponin T 0.033 H D Total Protein Albumin Prealbumin LDL Cholesterol Direct HDL Cholesterol Vitamin B12 TSH PTH Intact Urine Creatinine Urine Total Protein Vancomycin Trough Digoxin Salicylates Acetaminophen Crossmatch 03/21/19 03/21/19 03/21/19 13:37 17:21 18:52 WBC RBC Hgb Hct MCV MCH MCHC RDW Plt Count Lymph % (Auto) [place] % (Auto) Lymph # [place] # Seg Neutrophils % Seg Neuts % (Manual) Lymphocytes % (Manual) Monocytes % (Manual) Eosinophils % (Manual) Nucleated RBC % Seg Neutrophils # Seg Neutrophils # Man Lymphocytes # (Manual) Monocytes # (Manual) Eosinophils # (Manual) PT INR APTT POC ABG pH POC ABG pCO2 POC ABG pO2 Sodium Potassium Chloride Carbon Dioxide BUN Creatinine Glucose POC Glucose 130 H 107 H Lactic Acid 6.80 H* Calcium Phosphorus Magnesium Iron TIBC Ferritin Direct Bilirubin AST Total Creatine Kinase Troponin T Total Protein Albumin Prealbumin LDL Cholesterol Direct HDL Cholesterol Vitamin B12 TSH PTH Intact Urine Creatinine Urine Total Protein Vancomycin Trough Digoxin Salicylates Acetaminophen Crossmatch 03/21/19 03/21/19 03/21/19 20:20 22:08 23:05 WBC RBC Hgb Hct MCV MCH MCHC RDW Plt Count Lymph % (Auto) [place] % (Auto) Lymph # [place] # Seg Neutrophils % Seg Neuts % (Manual) Lymphocytes % (Manual) Monocytes % (Manual) Eosinophils % (Manual) Nucleated RBC % Seg Neutrophils # Seg Neutrophils # Man Lymphocytes # (Manual) Monocytes # (Manual) Eosinophils # (Manual) PT INR APTT POC ABG pH POC ABG pCO2 POC ABG pO2 Sodium Potassium Chloride Carbon Dioxide BUN Creatinine Glucose POC Glucose 106 H 106 H Lactic Acid Calcium Phosphorus Magnesium Iron TIBC Ferritin Direct Bilirubin AST Total Creatine Kinase Troponin T 0.036 H Total Protein Albumin Prealbumin LDL Cholesterol Direct HDL Cholesterol Vitamin B12 TSH PTH Intact Urine Creatinine Urine Total Protein Vancomycin Trough Digoxin Salicylates Acetaminophen Crossmatch 03/21/19 03/21/19 03/22/19 23:05 23:05 00:14 WBC RBC Hgb Hct MCV MCH MCHC RDW Plt Count Lymph % (Auto) [place] % (Auto) Lymph # [place] # Seg Neutrophils % Seg Neuts % (Manual) Lymphocytes % (Manual) Monocytes % (Manual) Eosinophils % (Manual) Nucleated RBC % Seg Neutrophils # Seg Neutrophils # Man Lymphocytes # (Manual) Monocytes # (Manual) Eosinophils # (Manual) PT INR APTT POC ABG pH POC ABG pCO2 POC ABG pO2 Sodium Potassium Chloride Carbon Dioxide BUN Creatinine Glucose POC Glucose 122 H 109 H Lactic Acid 7.00 H* Calcium Phosphorus Magnesium Iron TIBC Ferritin Direct Bilirubin AST Total Creatine Kinase Troponin T Total Protein Albumin Prealbumin LDL Cholesterol Direct HDL Cholesterol Vitamin B12 TSH PTH Intact Urine Creatinine Urine Total Protein Vancomycin Trough Digoxin Salicylates Acetaminophen Crossmatch 03/22/19 03/22/19 03/22/19 03:10 04:02 05:11 WBC RBC Hgb Hct MCV MCH MCHC RDW Plt Count Lymph % (Auto) [place] % (Auto) Lymph # [place] # Seg Neutrophils % Seg Neuts % (Manual) Lymphocytes % (Manual) Monocytes % (Manual) Eosinophils % (Manual) Nucleated RBC % Seg Neutrophils # Seg Neutrophils # Man Lymphocytes # (Manual) Monocytes # (Manual) Eosinophils # (Manual) PT INR APTT POC ABG pH 7.487 H POC ABG pCO2 POC ABG pO2 67 L Sodium Potassium Chloride Carbon Dioxide BUN Creatinine Glucose POC Glucose 114 H 112 H Lactic Acid Calcium Phosphorus Magnesium Iron TIBC Ferritin Direct Bilirubin AST Total Creatine Kinase Troponin T Total Protein Albumin Prealbumin LDL Cholesterol Direct HDL Cholesterol Vitamin B12 TSH PTH Intact Urine Creatinine Urine Total Protein Vancomycin Trough Digoxin Salicylates Acetaminophen Crossmatch 03/22/19 03/22/19 03/22/19 06:06 06:10 06:10 WBC RBC Hgb Hct MCV MCH MCHC RDW Plt Count Lymph % (Auto) [place] % (Auto) Lymph # [place] # Seg Neutrophils % Seg Neuts % (Manual) Lymphocytes % (Manual) Monocytes % (Manual) Eosinophils % (Manual) Nucleated RBC % Seg Neutrophils # Seg Neutrophils # Man Lymphocytes # (Manual) Monocytes # (Manual) Eosinophils # (Manual) PT INR APTT POC ABG pH POC ABG pCO2 POC ABG pO2 Sodium Potassium 3.0 L Chloride Carbon Dioxide BUN Creatinine Glucose POC Glucose 115 H Lactic Acid Calcium 7.0 L Phosphorus Magnesium Iron TIBC Ferritin Direct Bilirubin AST Total Creatine Kinase Troponin T 0.036 H Total Protein Albumin Prealbumin LDL Cholesterol Direct HDL Cholesterol Vitamin B12 TSH PTH Intact Urine Creatinine Urine Total Protein Vancomycin Trough Digoxin Salicylates Acetaminophen Crossmatch 03/22/19 03/22/19 03/22/19 06:10 06:10 11:59 WBC RBC Hgb Hct MCV MCH MCHC RDW Plt Count Lymph % (Auto) [place] % (Auto) Lymph # [place] # Seg Neutrophils % Seg Neuts % (Manual) Lymphocytes % (Manual) Monocytes % (Manual) Eosinophils % (Manual) Nucleated RBC % Seg Neutrophils # Seg Neutrophils # Man Lymphocytes # (Manual) Monocytes # (Manual) Eosinophils # (Manual) PT INR APTT POC ABG pH POC ABG pCO2 POC ABG pO2 Sodium Potassium Chloride Carbon Dioxide BUN Creatinine Glucose POC Glucose Lactic Acid 4.80 H* 3.80 H* Calcium Phosphorus Magnesium Iron TIBC Ferritin Direct Bilirubin AST Total Creatine Kinase Troponin T Total Protein Albumin Prealbumin LDL Cholesterol Direct HDL Cholesterol Vitamin B12 TSH 7.810 H PTH Intact Urine Creatinine Urine Total Protein Vancomycin Trough Digoxin Salicylates Acetaminophen Crossmatch 03/22/19 03/22/19 03/22/19 13:45 13:45 13:45 WBC RBC Hgb 8.3 L Hct 24.5 L MCV MCH MCHC RDW Plt Count 56 L Lymph % (Auto) [place] % (Auto) Lymph # [place] # Seg Neutrophils % Seg Neuts % (Manual) Lymphocytes % (Manual) Monocytes % (Manual) Eosinophils % (Manual) Nucleated RBC % Seg Neutrophils # Seg Neutrophils # Man Lymphocytes # (Manual) Monocytes # (Manual) Eosinophils # (Manual) PT 21.4 H INR 1.90 H APTT 43.2 H POC ABG pH POC ABG pCO2 POC ABG pO2 Sodium Potassium Chloride Carbon Dioxide BUN Creatinine Glucose POC Glucose Lactic Acid 3.50 H* Calcium Phosphorus Magnesium Iron TIBC Ferritin Direct Bilirubin AST Total Creatine Kinase Troponin T Total Protein Albumin Prealbumin LDL Cholesterol Direct HDL Cholesterol Vitamin B12 TSH PTH Intact Urine Creatinine Urine Total Protein Vancomycin Trough Digoxin Salicylates Acetaminophen Crossmatch 07/24/19 07/25/19 07/25/19 22:20 01:06 04:50 WBC 12.1 H RBC 2.36 L Hgb 7.7 L Hct 22.9 L MCV MCH 33 H MCHC RDW Plt Count 37 L Lymph % (Auto) [place] % (Auto) Lymph # [place] # Seg Neutrophils % Seg Neuts % (Manual) 83.0 H Lymphocytes % (Manual) 8.0 L Monocytes % (Manual) Eosinophils % (Manual) Nucleated RBC % Seg Neutrophils # Seg Neutrophils # Man 10.0 H Lymphocytes # (Manual) 1.0 L Monocytes # (Manual) Eosinophils # (Manual) PT INR APTT POC ABG pH POC ABG pCO2 POC ABG pO2 Sodium Potassium Chloride Carbon Dioxide BUN Creatinine Glucose POC Glucose Lactic Acid 3.60 H* 2.70 H* Calcium Phosphorus Magnesium Iron TIBC Ferritin Direct Bilirubin AST Total Creatine Kinase Troponin T Total Protein Albumin Prealbumin LDL Cholesterol Direct HDL Cholesterol Vitamin B12 TSH PTH Intact Urine Creatinine Urine Total Protein Vancomycin Trough Digoxin Salicylates Acetaminophen Crossmatch 03/23/19 03/23/19 03/23/19 04:50 05:25 05:53 WBC RBC Hgb Hct MCV MCH MCHC RDW Plt Count Lymph % (Auto) [place] % (Auto) Lymph # [place] # Seg Neutrophils % Seg Neuts % (Manual) Lymphocytes % (Manual) Monocytes % (Manual) Eosinophils % (Manual) Nucleated RBC % Seg Neutrophils # Seg Neutrophils # Man Lymphocytes # (Manual) Monocytes # (Manual) Eosinophils # (Manual) PT INR APTT POC ABG pH POC ABG pCO2 33.3 L POC ABG pO2 Sodium Potassium 3.5 L Chloride 108.3 H Carbon Dioxide BUN Creatinine Glucose POC Glucose 68 L Lactic Acid Calcium 7.3 L Phosphorus Magnesium Iron TIBC Ferritin Direct Bilirubin AST Total Creatine Kinase Troponin T Total Protein Albumin Prealbumin LDL Cholesterol Direct HDL Cholesterol Vitamin B12 TSH PTH Intact Urine Creatinine Urine Total Protein Vancomycin Trough Digoxin Salicylates Acetaminophen Crossmatch 03/24/19 03/24/19 03/24/19 03:26 05:50 05:57 WBC RBC Hgb Hct MCV MCH MCHC RDW Plt Count Lymph % (Auto) [place] % (Auto) Lymph # [place] # Seg Neutrophils % Seg Neuts % (Manual) Lymphocytes % (Manual) Monocytes % (Manual) Eosinophils % (Manual) Nucleated RBC % Seg Neutrophils # Seg Neutrophils # Man Lymphocytes # (Manual) Monocytes # (Manual) Eosinophils # (Manual) PT INR APTT POC ABG pH POC ABG pCO2 POC ABG pO2 78 L Sodium Potassium 3.4 L Chloride 116.5 H Carbon Dioxide 21 L BUN Creatinine 0.5 L Glucose 105 H POC Glucose 127 H Lactic Acid Calcium 6.4 L Phosphorus Magnesium Iron TIBC Ferritin Direct Bilirubin AST Total Creatine Kinase Troponin T Total Protein Albumin Prealbumin LDL Cholesterol Direct HDL Cholesterol Vitamin B12 TSH PTH Intact Urine Creatinine Urine Total Protein Vancomycin Trough Digoxin Salicylates Acetaminophen Crossmatch 03/24/19 03/24/19 03/24/19 06:00 11:30 12:25 WBC 13.6 H RBC 2.08 L Hgb 6.9 L Hct 20.5 L MCV 99 H MCH 33 H MCHC RDW Plt Count 50 L Lymph % (Auto) 8.1 L [place] % (Auto) 10.0 H Lymph # 1.1 L [place] # 1.4 H Seg Neutrophils % 80.7 H Seg Neuts % (Manual) Lymphocytes % (Manual) Monocytes % (Manual) Eosinophils % (Manual) Nucleated RBC % Seg Neutrophils # 11.0 H Seg Neutrophils # Man Lymphocytes # (Manual) Monocytes # (Manual) Eosinophils # (Manual) PT INR APTT POC ABG pH POC ABG pCO2 POC ABG pO2 Sodium Potassium Chloride Carbon Dioxide BUN Creatinine Glucose POC Glucose 111 H Lactic Acid Calcium Phosphorus Magnesium Iron TIBC Ferritin Direct Bilirubin AST Total Creatine Kinase Troponin T Total Protein Albumin Prealbumin LDL Cholesterol Direct HDL Cholesterol Vitamin B12 TSH PTH Intact Urine Creatinine Urine Total Protein Vancomycin Trough Digoxin Salicylates Acetaminophen Crossmatch See Detail 03/24/19 03/25/19 03/25/19 14:25 05:20 10:00 WBC 13.4 H RBC 2.54 L Hgb 8.1 L Hct 24.3 L MCV MCH MCHC RDW 17.3 H Plt Count 44 L Lymph % (Auto) [place] % (Auto) Lymph # [place] # Seg Neutrophils % Seg Neuts % (Manual) Lymphocytes % (Manual) Monocytes % (Manual) Eosinophils % (Manual) Nucleated RBC % Seg Neutrophils # Seg Neutrophils # Man Lymphocytes # (Manual) Monocytes # (Manual) Eosinophils # (Manual) PT INR APTT POC ABG pH POC ABG pCO2 POC ABG pO2 Sodium Potassium Chloride Carbon Dioxide BUN Creatinine Glucose POC Glucose 111 H Lactic Acid Calcium Phosphorus Magnesium Iron 32 L TIBC 75 L Ferritin Direct Bilirubin AST Total Creatine Kinase Troponin T Total Protein Albumin Prealbumin LDL Cholesterol Direct HDL Cholesterol Vitamin B12 TSH PTH Intact Urine Creatinine Urine Total Protein Vancomycin Trough Digoxin Salicylates Acetaminophen Crossmatch 03/25/19 03/25/19 03/25/19 10:11 10:11 23:11 WBC RBC Hgb Hct MCV MCH MCHC RDW Plt Count Lymph % (Auto) [place] % (Auto) Lymph # [place] # Seg Neutrophils % Seg Neuts % (Manual) Lymphocytes % (Manual) Monocytes % (Manual) Eosinophils % (Manual) Nucleated RBC % Seg Neutrophils # Seg Neutrophils # Man Lymphocytes # (Manual) Monocytes # (Manual) Eosinophils # (Manual) PT INR APTT POC ABG pH POC ABG pCO2 POC ABG pO2 Sodium Potassium Chloride 112.0 H Carbon Dioxide BUN 20 H Creatinine 0.6 L Glucose POC Glucose 112 H Lactic Acid Calcium 7.2 L Phosphorus Magnesium Iron TIBC Ferritin Direct Bilirubin AST Total Creatine Kinase Troponin T Total Protein Albumin Prealbumin LDL Cholesterol Direct HDL Cholesterol Vitamin B12 > 2000 H TSH PTH Intact Urine Creatinine Urine Total Protein Vancomycin Trough Digoxin Salicylates Acetaminophen Crossmatch 03/26/19 03/26/19 03/26/19 05:00 05:00 05:16 WBC 14.4 H RBC 2.74 L Hgb 8.9 L Hct 25.7 L MCV MCH 33 H MCHC 35 H RDW 16.9 H Plt Count 60 L Lymph % (Auto) [place] % (Auto) Lymph # [place] # Seg Neutrophils % Seg Neuts % (Manual) 83.0 H Lymphocytes % (Manual) 5.0 L Monocytes % (Manual) Eosinophils % (Manual) 5.0 H Nucleated RBC % 1.0 H Seg Neutrophils # Seg Neutrophils # Man 12.0 H Lymphocytes # (Manual) 0.7 L Monocytes # (Manual) 0.9 H Eosinophils # (Manual) 0.7 H PT INR APTT POC ABG pH POC ABG pCO2 POC ABG pO2 Sodium Potassium 3.1 L Chloride 110.4 H Carbon Dioxide BUN 22 H Creatinine Glucose 101 H POC Glucose 114 H Lactic Acid Calcium 7.4 L Phosphorus Magnesium Iron TIBC Ferritin Direct Bilirubin AST Total Creatine Kinase Troponin T Total Protein Albumin Prealbumin LDL Cholesterol Direct HDL Cholesterol Vitamin B12 TSH PTH Intact Urine Creatinine Urine Total Protein Vancomycin Trough Digoxin Salicylates Acetaminophen Crossmatch 03/26/19 03/27/19 03/27/19 11:55 09:04 09:04 WBC RBC Hgb Hct MCV MCH MCHC RDW Plt Count Lymph % (Auto) [place] % (Auto) Lymph # [place] # Seg Neutrophils % Seg Neuts % (Manual) Lymphocytes % (Manual) Monocytes % (Manual) Eosinophils % (Manual) Nucleated RBC % Seg Neutrophils # Seg Neutrophils # Man Lymphocytes # (Manual) Monocytes # (Manual) Eosinophils # (Manual) PT INR APTT POC ABG pH POC ABG pCO2 POC ABG pO2 Sodium Potassium 3.2 L Chloride Carbon Dioxide BUN 22 H Creatinine Glucose POC Glucose 121 H Lactic Acid Calcium 7.7 L Phosphorus Magnesium Iron TIBC Ferritin Direct Bilirubin AST Total Creatine Kinase Troponin T Total Protein Albumin Prealbumin LDL Cholesterol Direct HDL Cholesterol Vitamin B12 TSH PTH Intact Urine Creatinine Urine Total Protein Vancomycin Trough 23.0 H Digoxin Salicylates Acetaminophen Crossmatch 03/27/19 03/27/19 03/27/19 09:04 13:31 14:04 WBC 14.8 H RBC 2.52 L Hgb 8.0 L 8.3 L Hct 24.0 L 25.3 L MCV MCH MCHC RDW 17.0 H Plt Count 89 L 91 L Lymph % (Auto) [place] % (Auto) 8.8 H Lymph # [place] # 1.3 H Seg Neutrophils % 70.7 H Seg Neuts % (Manual) Lymphocytes % (Manual) Monocytes % (Manual) Eosinophils % (Manual) Nucleated RBC % Seg Neutrophils # 10.5 H Seg Neutrophils # Man Lymphocytes # (Manual) Monocytes # (Manual) Eosinophils # (Manual) PT INR APTT POC ABG pH POC ABG pCO2 POC ABG pO2 Sodium Potassium Chloride Carbon Dioxide BUN Creatinine Glucose POC Glucose Lactic Acid Calcium Phosphorus Magnesium Iron TIBC Ferritin Direct Bilirubin 0.3 H AST Total Creatine Kinase Troponin T Total Protein 4.9 L Albumin 1.3 L Prealbumin LDL Cholesterol Direct HDL Cholesterol Vitamin B12 TSH PTH Intact Urine Creatinine Urine Total Protein Vancomycin Trough Digoxin Salicylates Acetaminophen Crossmatch 03/27/19 03/27/19 03/28/19 14:04 23:51 01:05 WBC 14.4 H RBC 2.44 L Hgb 8.0 L Hct 24.5 L MCV 100 H MCH 33 H MCHC RDW 18.5 H Plt Count 86 L Lymph % (Auto) [place] % (Auto) Lymph # [place] # Seg Neutrophils % Seg Neuts % (Manual) 84.0 H Lymphocytes % (Manual) 10.0 L Monocytes % (Manual) Eosinophils % (Manual) Nucleated RBC % Seg Neutrophils # Seg Neutrophils # Man 12.1 H Lymphocytes # (Manual) Monocytes # (Manual) Eosinophils # (Manual) PT 21.4 H INR 1.90 H APTT 42.2 H POC ABG pH POC ABG pCO2 POC ABG pO2 Sodium Potassium Chloride Carbon Dioxide BUN Creatinine Glucose POC Glucose 130 H Lactic Acid Calcium Phosphorus Magnesium Iron TIBC Ferritin Direct Bilirubin AST Total Creatine Kinase Troponin T Total Protein Albumin Prealbumin LDL Cholesterol Direct HDL Cholesterol Vitamin B12 TSH PTH Intact Urine Creatinine Urine Total Protein Vancomycin Trough Digoxin Salicylates Acetaminophen Crossmatch 03/28/19 03/28/19 03/28/19 02:51 04:45 07:31 WBC RBC Hgb Hct MCV MCH MCHC RDW Plt Count Lymph % (Auto) [place] % (Auto) Lymph # [place] # Seg Neutrophils % Seg Neuts % (Manual) Lymphocytes % (Manual) Monocytes % (Manual) Eosinophils % (Manual) Nucleated RBC % Seg Neutrophils # Seg Neutrophils # Man Lymphocytes # (Manual) Monocytes # (Manual) Eosinophils # (Manual) PT INR APTT 75.0 H* POC ABG pH POC ABG pCO2 POC ABG pO2 Sodium Potassium Chloride Carbon Dioxide BUN 22 H Creatinine Glucose POC Glucose Lactic Acid Calcium 7.8 L Phosphorus Magnesium Iron TIBC Ferritin 448.3 H Direct Bilirubin AST Total Creatine Kinase Troponin T Total Protein Albumin Prealbumin LDL Cholesterol Direct HDL Cholesterol Vitamin B12 TSH PTH Intact Urine Creatinine Urine Total Protein Vancomycin Trough Digoxin Salicylates Acetaminophen Crossmatch 03/28/19 03/29/19 03/29/19 14:30 04:40 04:40 WBC RBC 2.17 L Hgb 7.1 L Hct 20.8 L MCV MCH 33 H MCHC RDW 17.1 H Plt Count 122 L Lymph % (Auto) [place] % (Auto) Lymph # [place] # Seg Neutrophils % Seg Neuts % (Manual) Lymphocytes % (Manual) Monocytes % (Manual) Eosinophils % (Manual) Nucleated RBC % Seg Neutrophils # Seg Neutrophils # Man Lymphocytes # (Manual) Monocytes # (Manual) Eosinophils # (Manual) PT INR APTT 70.3 H* POC ABG pH POC ABG pCO2 POC ABG pO2 Sodium Potassium Chloride Carbon Dioxide 31 H BUN 22 H Creatinine 0.5 L Glucose POC Glucose Lactic Acid Calcium 8.0 L Phosphorus Magnesium Iron TIBC Ferritin Direct Bilirubin AST Total Creatine Kinase Troponin T Total Protein 5.0 L Albumin 1.4 L Prealbumin LDL Cholesterol Direct HDL Cholesterol Vitamin B12 TSH PTH Intact Urine Creatinine Urine Total Protein Vancomycin Trough Digoxin Salicylates Acetaminophen Crossmatch 03/29/19 03/29/19 03/29/19 04:40 04:40 11:50 WBC RBC Hgb Hct MCV MCH MCHC RDW Plt Count Lymph % (Auto) [place] % (Auto) Lymph # [place] # Seg Neutrophils % Seg Neuts % (Manual) Lymphocytes % (Manual) Monocytes % (Manual) Eosinophils % (Manual) Nucleated RBC % Seg Neutrophils # Seg Neutrophils # Man Lymphocytes # (Manual) Monocytes # (Manual) Eosinophils # (Manual) PT INR APTT 71.8 H* POC ABG pH POC ABG pCO2 POC ABG pO2 Sodium Potassium Chloride Carbon Dioxide BUN Creatinine Glucose POC Glucose 118 H Lactic Acid Calcium Phosphorus Magnesium Iron TIBC Ferritin Direct Bilirubin AST Total Creatine Kinase Troponin T Total Protein Albumin Prealbumin LDL Cholesterol Direct HDL Cholesterol Vitamin B12 TSH PTH Intact Urine Creatinine Urine Total Protein Vancomycin Trough Digoxin 3.5 H* Salicylates Acetaminophen Crossmatch 03/29/19 03/29/19 03/29/19 16:20 16:20 21:10 WBC RBC Hgb Hct MCV MCH MCHC RDW Plt Count Lymph % (Auto) [place] % (Auto) Lymph # [place] # Seg Neutrophils % Seg Neuts % (Manual) Lymphocytes % (Manual) Monocytes % (Manual) Eosinophils % (Manual) Nucleated RBC % Seg Neutrophils # Seg Neutrophils # Man Lymphocytes # (Manual) Monocytes # (Manual) Eosinophils # (Manual) PT INR APTT 61.5 H* 112.6 H* POC ABG pH POC ABG pCO2 POC ABG pO2 Sodium Potassium Chloride Carbon Dioxide BUN Creatinine Glucose POC Glucose Lactic Acid Calcium Phosphorus Magnesium Iron TIBC Ferritin Direct Bilirubin AST Total Creatine Kinase Troponin T Total Protein Albumin Prealbumin LDL Cholesterol Direct HDL Cholesterol Vitamin B12 TSH PTH Intact Urine Creatinine Urine Total Protein Vancomycin Trough Digoxin 2.6 H* Salicylates Acetaminophen Crossmatch 03/29/19 03/30/19 03/30/19 22:30 04:42 04:42 WBC RBC Hgb 6.4 L Hct 18.9 L* MCV MCH MCHC RDW Plt Count Lymph % (Auto) [place] % (Auto) Lymph # [place] # Seg Neutrophils % Seg Neuts % (Manual) Lymphocytes % (Manual) Monocytes % (Manual) Eosinophils % (Manual) Nucleated RBC % Seg Neutrophils # Seg Neutrophils # Man Lymphocytes # (Manual) Monocytes # (Manual) Eosinophils # (Manual) PT INR APTT 103.8 H* POC ABG pH POC ABG pCO2 POC ABG pO2 Sodium Potassium Chloride Carbon Dioxide BUN Creatinine Glucose POC Glucose Lactic Acid Calcium Phosphorus Magnesium Iron TIBC Ferritin Direct Bilirubin AST Total Creatine Kinase Troponin T Total Protein Albumin Prealbumin LDL Cholesterol Direct HDL Cholesterol Vitamin B12 TSH PTH Intact Urine Creatinine Urine Total Protein Vancomycin Trough Digoxin 2.6 H* Salicylates Acetaminophen Crossmatch 03/30/19 03/30/19 03/30/19 07:04 07:58 11:15 WBC RBC 2.66 L Hgb 8.5 L Hct 25.3 L D MCV MCH MCHC RDW 17.4 H Plt Count Lymph % (Auto) [place] % (Auto) Lymph # [place] # Seg Neutrophils % Seg Neuts % (Manual) Lymphocytes % (Manual) Monocytes % (Manual) Eosinophils % (Manual) Nucleated RBC % Seg Neutrophils # Seg Neutrophils # Man Lymphocytes # (Manual) Monocytes # (Manual) Eosinophils # (Manual) PT INR APTT 50.5 H POC ABG pH POC ABG pCO2 POC ABG pO2 Sodium Potassium Chloride Carbon Dioxide BUN Creatinine Glucose POC Glucose Lactic Acid Calcium Phosphorus Magnesium Iron TIBC Ferritin Direct Bilirubin AST Total Creatine Kinase Troponin T Total Protein Albumin Prealbumin LDL Cholesterol Direct HDL Cholesterol Vitamin B12 TSH PTH Intact Urine Creatinine Urine Total Protein Vancomycin Trough Digoxin Salicylates Acetaminophen Crossmatch See Detail 03/30/19 03/30/19 03/30/19 11:36 17:40 22:51 WBC RBC 2.48 L Hgb 7.9 L Hct 23.9 L MCV MCH MCHC RDW 17.7 H Plt Count Lymph % (Auto) [place] % (Auto) Lymph # [place] # Seg Neutrophils % Seg Neuts % (Manual) Lymphocytes % (Manual) Monocytes % (Manual) Eosinophils % (Manual) Nucleated RBC % Seg Neutrophils # Seg Neutrophils # Man Lymphocytes # (Manual) Monocytes # (Manual) Eosinophils # (Manual) PT INR APTT POC ABG pH POC ABG pCO2 POC ABG pO2 Sodium Potassium Chloride Carbon Dioxide BUN Creatinine Glucose POC Glucose 129 H 112 H Lactic Acid Calcium Phosphorus Magnesium Iron TIBC Ferritin Direct Bilirubin AST Total Creatine Kinase Troponin T Total Protein Albumin Prealbumin LDL Cholesterol Direct HDL Cholesterol Vitamin B12 TSH PTH Intact Urine Creatinine Urine Total Protein Vancomycin Trough Digoxin Salicylates Acetaminophen Crossmatch 03/30/19 03/31/19 03/31/19 23:47 05:00 11:35 WBC RBC Hgb 8.0 L Hct 23.7 L MCV MCH MCHC RDW Plt Count Lymph % (Auto) [place] % (Auto) Lymph # [place] # Seg Neutrophils % Seg Neuts % (Manual) Lymphocytes % (Manual) Monocytes % (Manual) Eosinophils % (Manual) Nucleated RBC % Seg Neutrophils # Seg Neutrophils # Man Lymphocytes # (Manual) Monocytes # (Manual) Eosinophils # (Manual) PT INR APTT POC ABG pH POC ABG pCO2 POC ABG pO2 Sodium Potassium Chloride Carbon Dioxide BUN Creatinine Glucose POC Glucose 112 H 106 H Lactic Acid Calcium Phosphorus Magnesium Iron TIBC Ferritin Direct Bilirubin AST Total Creatine Kinase Troponin T Total Protein Albumin Prealbumin LDL Cholesterol Direct HDL Cholesterol Vitamin B12 TSH PTH Intact Urine Creatinine Urine Total Protein Vancomycin Trough Digoxin Salicylates Acetaminophen Crossmatch
--- NOTE | 2019-04-01 00:22 | Progress Note ---
Assessment and Plan Acute respiratory failure intubated on the vent Sepsis Pneumonia Acute kidney failure Paroxysmal Atrial fibrillation currently in sinus rhythm on amiodarone Digoxin toxicity -digoxin discontinued Altered mental status Thrombocytopenia Severe anemia -s/p transfusion of PRBCs Acute Right common femoral DVT and right IJ vein thrombosis argatroban discontinued due to severe anemia AND/DNR status Echocardiogram shows a normal left ventricular systolic function, ejection fraction 60-65%. Patient now planned for hospice. No further cardiac recommendations. Will sign off. Subjective Date of service: 04/01/19 Principal diagnosis: low plt - DVT Interval history: No acute events. Resting comfortably. No chest pain or SOB. Objective Vital Signs Temp Pulse Pulse Pulse Resp Resp BP 03/31/19 23:02 100.7 F H 03/31/19 20:00 113 H 115 H 19 141/67 03/31/19 19:34 100.3 F H 03/31/19 18:15 111 H 19 132/63 03/31/19 18:01 129 H 21 142/72 03/31/19 17:45 124 H 21 142/72 03/31/19 17:30 117 H 18 137/59 03/31/19 17:15 118 H 24 126/51 03/31/19 17:00 123 H 18 116/50 03/31/19 16:45 114 H 16 129/58 03/31/19 16:30 118 H 16 128/62 03/31/19 16:15 115 H 16 127/57 03/31/19 16:12 114 H 127/57 03/31/19 16:00 100.2 F H 116 H 116 H 38 H 134/56 03/31/19 15:45 116 H 37 H 132/54 03/31/19 15:30 111 H 33 H 136/63 03/31/19 15:15 115 H 34 H 120/51 03/31/19 15:00 115 H 31 H 134/59 03/31/19 14:45 111 H 30 H 120/57 03/31/19 14:30 113 H 32 H 125/60 03/31/19 14:15 112 H 35 H 107/49 03/31/19 14:00 111 H 26 H 127/53 03/31/19 13:45 111 H 31 H 116/38 03/31/19 13:30 113 H 33 H 114/50 03/31/19 13:15 113 H 19 107/42 03/31/19 13:00 112 H 25 H 101/39 03/31/19 12:45 113 H 23 111/41 03/31/19 12:30 115 H 29 H 119/46 03/31/19 12:15 111 H 24 123/50 03/31/19 12:00 98.3 F 110 H 112 H 28 H 133/45 03/31/19 11:45 116 H 31 H 116/57 03/31/19 11:30 115 H 36 H 110/47 03/31/19 11:15 115 H 32 H 127/51 03/31/19 11:00 118 H 23 119/52 03/31/19 10:45 114 H 29 H 125/51 03/31/19 10:30 119 H 36 H 132/59 03/31/19 10:16 110 H 03/31/19 10:15 115 H 27 H 143/59 03/31/19 10:00 116 H 34 H 157/63 03/31/19 09:45 118 H 19 158/59 03/31/19 09:30 116 H 22 144/65 03/31/19 09:15 119 H 21 126/63 03/31/19 09:01 117 H 17 115/70 03/31/19 08:45 118 H 20 133/70 03/31/19 08:36 118 H 153/76 03/31/19 08:35 116 H 28 H 03/31/19 08:30 118 H 21 153/76 03/31/19 08:15 115 H 19 132/56 03/31/19 08:00 100.6 F H 118 H 118 H 26 H 155/71 03/31/19 07:45 116 H 24 145/63 03/31/19 07:30 116 H 15 170/69 03/31/19 07:15 117 H 26 H 152/69 03/31/19 07:00 114 H 30 H 151/61 03/31/19 06:45 114 H 21 160/55 03/31/19 06:30 116 H 14 142/57 03/31/19 06:15 114 H 32 H 137/54 03/31/19 06:00 114 H 19 152/66 03/31/19 05:45 127 H 29 H 146/79 03/31/19 05:30 113 H 32 H 129/54 03/31/19 05:15 115 H 26 H 144/67 03/31/19 05:00 112 H 28 H 143/65 03/31/19 04:45 111 H 21 136/61 03/31/19 04:30 110 H 19 125/41 03/31/19 04:15 111 H 25 H 128/59 03/31/19 04:00 98.1 F 109 H 115 H 18 135/49 03/31/19 03:45 110 H 22 152/47 03/31/19 03:30 114 H 26 H 142/57 03/31/19 03:28 114 H 142/57 03/31/19 03:18 99.3 F 03/31/19 03:15 111 H 18 129/50 03/31/19 03:00 111 H 120 H 13 18 136/55 03/31/19 02:45 111 H 20 129/44 03/31/19 02:30 111 H 17 137/35 03/31/19 02:15 113 H 20 128/40 03/31/19 02:00 112 H 15 137/57 03/31/19 01:45 117 H 16 121/55 03/31/19 01:30 117 H 21 151/64 03/31/19 01:15 115 H 19 137/55 03/31/19 01:00 115 H 15 126/46 03/31/19 00:45 117 H 16 130/52 03/31/19 00:30 118 H 18 131/53 Pulse Ox 03/31/19 23:02 03/31/19 20:00 100 03/31/19 19:34 03/31/19 18:15 95 03/31/19 18:01 100 03/31/19 17:45 99 03/31/19 17:30 98 03/31/19 17:15 97 03/31/19 17:00 98 03/31/19 16:45 95 03/31/19 16:30 96 03/31/19 16:15 98 03/31/19 16:12 99 03/31/19 16:00 98 03/31/19 15:45 98 03/31/19 15:30 98 03/31/19 15:15 98 03/31/19 15:00 99 03/31/19 14:45 98 03/31/19 14:30 99 03/31/19 14:15 99 03/31/19 14:00 99 03/31/19 13:45 98 03/31/19 13:30 98 03/31/19 13:15 98 03/31/19 13:00 98 03/31/19 12:45 98 03/31/19 12:30 98 03/31/19 12:15 97 03/31/19 12:00 97 03/31/19 11:45 96 03/31/19 11:30 97 03/31/19 11:15 96 03/31/19 11:00 97 03/31/19 10:45 97 03/31/19 10:30 96 03/31/19 10:16 03/31/19 10:15 98 03/31/19 10:00 99 03/31/19 09:45 97 03/31/19 09:30 98 03/31/19 09:15 95 03/31/19 09:01 95 03/31/19 08:45 98 03/31/19 08:36 100 03/31/19 08:35 03/31/19 08:30 98 03/31/19 08:15 98 03/31/19 08:00 99 03/31/19 07:45 98 03/31/19 07:30 99 03/31/19 07:15 98 03/31/19 07:00 98 03/31/19 06:45 98 03/31/19 06:30 98 03/31/19 06:15 99 03/31/19 06:00 98 03/31/19 05:45 99 03/31/19 05:30 98 03/31/19 05:15 98 03/31/19 05:00 99 03/31/19 04:45 98 03/31/19 04:30 97 03/31/19 04:15 97 03/31/19 04:00 95 03/31/19 03:45 97 03/31/19 03:30 94 03/31/19 03:28 96 03/31/19 03:18 03/31/19 03:15 95 03/31/19 03:00 94 03/31/19 02:45 96 03/31/19 02:30 97 03/31/19 02:15 99 03/31/19 02:00 96 03/31/19 01:45 95 03/31/19 01:30 96 03/31/19 01:15 96 03/31/19 01:00 96 03/31/19 00:45 96 03/31/19 00:30 96 - Physical Examination General: Other (intubated on the vent) Neck: Positive: neck supple - Labs and Meds CBC 03/31/19 Range/Units 05:00 Hgb 8.0 L (10.1-14.3) gm/dl Hct 23.7 L (30.3-42.9) % Plt Count 158 (140-440) K/mm3 - Imaging and Cardiology EKG: report reviewed (sinus tachycardia heart rate of 129/m)
[2019-04-01] MEDS: DUONEB *Not for PRN Use IH SCH ×4 (02:18→20:28)
[2019-04-01] MEDS: HumaLOG SUB-Q SCH ×3 (05:20→18:32)
[2019-04-01] MEDS: PULMICORT IH SCH ×2 (07:46→20:28)
[2019-04-01] MEDS: MERREM 1,000 MG in NACL 0.9% 100 ML IV SCH ×3 (08:00→22:00)
--- NOTE | 2019-04-01 10:28 | Progress Note ---
Assessment and Plan Assessment and plan: --Acute hypoxic respiratory Failure intubated : Vent dependent >96hrs Pulm cr care following, if unable to wean,patient may need trach and PEG --Severe Anemia: Drop in H/H transfused 1 unit PRBC. Hb 8.0 DC argatroban Closely monitor --Brief episode of Hypotension: improved with fluid bolus, --Digoxin toxicity;supratherapeutic level, off digoxin --Acute Right common femoral DVT and right IJ vein thrombosis argatroban drip dced due to severe anemia[requiring transfusion] Hemat following --Acute metabolic encephalopathy, cont supportive care, CT head negative --Sepsis due to aspiration pneumonia; Continue current antibiotics follow cultures --Septic shock: off pressor, weaned off, BP now stable --Paroxysmal Atrial fib, Now NSR on amioderone,metoprolol digoxin held Started low dose metoprolol --HA (acute kidney injury), atn and vasomotor nephrology, poa: Resolved Nephrology consulted renal function improved --Anemia, due to CD vs other cause Monitor H&H and transfuse additional as needed --RUL Aspiration pneumonia:on Merropenem --Hypernatremia: improved with Iv fluid --Hypomagnesemia: replete and follow as needed --Elevated troponin level/ NSTEMI II; Cardiology following --DVT prophylaxis --DNR status. Patient is vent dependent critically ill, poor prognosis recommended hospice,Family considering inpt hospice. Disposition; Pending Hospice placement when family decides CCT 32 minutes History Interval history: Patient seen and examined in her room this morning medical records reviewed Clinically no change remains intubated , vent dependent DO NOT RESUSCITATE status, awaiting hospice placement Vital signs noted Hospitalist Physical - Constitutional Vitals: Temp Pulse Resp BP Pulse Ox 101 F H 121 H 18 151/68 97 04/01/19 02:58 04/01/19 07:47 04/01/19 07:46 04/01/19 07:47 04/01/19 07:47 General appearance: Present: no acute distress, well-nourished, other (intubated on vent) - EENT Eyes: Present: PERRL, EOM intact - Neck Neck: Present: supple, other (ET tube Dobbhoff in place) - Respiratory Respiratory effort: normal Respiratory: bilateral: diminished, rhonchi, negative: rales, wheezing - Cardiovascular Rhythm: regular Heart Sounds: Present: S1 & S2 - Extremities Extremities: no ischemia, No edema - Abdominal General gastrointestinal: soft, non-tender, non-distended, normal bowel sounds - Integumentary Integumentary: Present: clear, warm - Psychiatric Psychiatric: other (on vent) - Neurologic Neurologic: other (on vent) Results - Labs CBC & Chem 7: 03/31/19 05:00 03/29/19 04:40 Labs: Laboratory Last Values WBC 8.7 K/mm3 (4.5-11.0) 03/30/19 22:51 RBC 2.48 M/mm3 (3.65-5.03) L 03/30/19 22:51 Hgb 8.0 gm/dl (10.1-14.3) L 03/31/19 05:00 Hct 23.7 % (30.3-42.9) L 03/31/19 05:00 MCV 97 fl (79-97) 03/30/19 22:51 MCH 32 pg (28-32) 03/30/19 22:51 MCHC 33 % (30-34) 03/30/19 22:51 RDW 17.7 % (13.2-15.2) H 03/30/19 22:51 Plt Count 158 K/mm3 (140-440) 03/31/19 05:00 Lymph % (Auto) 20.2 % (13.4-35.0) 03/29/19 04:40 O'Brien % (Auto) 7.1 % (0.0-7.3) 03/29/19 04:40 Eos % (Auto) 2.8 % (0.0-4.3) 03/29/19 04:40 Baso % (Auto) 0.6 % (0.0-1.8) 03/29/19 04:40 Lymph # 2.1 K/mm3 (1.2-5.4) 03/29/19 04:40 O'Brien # 0.7 K/mm3 (0.0-0.8) 03/29/19 04:40 Eos # 0.3 K/mm3 (0.0-0.4) 03/29/19 04:40 Baso # 0.1 K/mm3 (0.0-0.1) 03/29/19 04:40 Add Manual Diff Complete 03/28/19 01:05 Total Counted 100 03/28/19 01:05 Seg Neutrophils % 69.3 % (40.0-70.0) 03/29/19 04:40 Seg Neuts % (Manual) 84.0 % (40.0-70.0) H 03/28/19 01:05 0 % 03/28/19 01:05 10.0 % (13.4-35.0) L 03/28/19 01:05 Reactive Lymphs % (Man) 0 % 03/28/19 01:05 3.0 % (0.0-7.3) 03/28/19 01:05 2.0 % (0.0-4.3) 03/28/19 01:05 1.0 % (0.0-1.8) 03/28/19 01:05 0 % 03/28/19 01:05 0 % 03/28/19 01:05 0 % 03/28/19 01:05 0 % 03/28/19 01:05 Nucleated RBC % Not Reportable 03/28/19 01:05 Seg Neutrophils # 7.2 K/mm3 (1.8-7.7) 03/29/19 04:40 Seg Neutrophils # Man 12.1 K/mm3 (1.8-7.7) H 03/28/19 01:05 Band Neutrophils # 0.0 K/mm3 03/28/19 01:05 1.4 K/mm3 (1.2-5.4) 03/28/19 01:05 Abs React Lymphs (Man) 0.0 K/mm3 03/28/19 01:05 0.4 K/mm3 (0.0-0.8) 03/28/19 01:05 0.3 K/mm3 (0.0-0.4) 03/28/19 01:05 0.1 K/mm3 (0.0-0.1) 03/28/19 01:05 0.0 K/mm3 03/28/19 01:05 0.0 K/mm3 03/28/19 01:05 0.0 K/mm3 03/28/19 01:05 Blast Cells # 0.0 K/mm3 03/28/19 01:05 WBC Morphology Not Reportable 03/28/19 01:05 Hypersegmented Neuts Not Reportable 03/28/19 01:05 Hyposegmented Neuts Not Reportable 03/28/19 01:05 Hypogranular Neuts Not Reportable 03/28/19 01:05 Not Reportable 03/28/19 01:05 Not Reportable 03/28/19 01:05 Not Reportable 03/28/19 01:05 Not Reportable 03/28/19 01:05 Not Reportable 03/28/19 01:05 Not Reportable 03/28/19 01:05 Not Reportable 03/28/19 01:05 Not Reportable 03/28/19 01:05 Plt Clumps, EDTA Not Reportable 03/28/19 01:05 Not Reportable 03/28/19 01:05 Not Reportable 03/28/19 01:05 Not Reportable 03/28/19 01:05 Plt Morphology Comment Not Reportable 03/28/19 01:05 RBC Morphology Normal 03/28/19 01:05 Dimorphic RBCs Not Reportable 03/28/19 01:05 Not Reportable 03/28/19 01:05 Not Reportable 03/28/19 01:05 Not Reportable 03/28/19 01:05 Not Reportable 03/28/19 01:05 Not Reportable 03/28/19 01:05 Not Reportable 03/28/19 01:05 Not Reportable 03/28/19 01:05 Not Reportable 03/28/19 01:05 Not Reportable 03/28/19 01:05 Not Reportable 03/28/19 01:05 Not Reportable 03/28/19 01:05 Not Reportable 03/28/19 01:05 Not Reportable 03/28/19 01:05 Not Reportable 03/28/19 01:05 Not Reportable 03/28/19 01:05 Not Reportable 03/28/19 01:05 Not Reportable 03/28/19 01:05 Not Reportable 03/28/19 01:05 Not Reportable 03/28/19 01:05 Acanthocytes (Spur) Not Reportable 03/28/19 01:05 Rouleaux Not Reportable 03/28/19 01:05 Not Reportable 03/28/19 01:05 Not Reportable 03/28/19 01:05 Not Reportable 03/28/19 01:05 Not Reportable 03/28/19 01:05 Hem Pathologist Commnt No 03/28/19 01:05 PT 21.4 Sec. (12.2-14.9) H 03/27/19 14:04 INR 1.90 (0.87-1.13) H 03/27/19 14:04 APTT 50.5 Sec. (24.2-36.6) H 03/30/19 11:15 Heparin Anti-Xa, Unfract Negative (Negative) 03/27/19 13:30 POC ABG pH 7.411 (7.35-7.45) 03/25/19 05:40 POC ABG pCO2 33.3 (35-45) L 03/23/19 05:25 POC ABG pO2 83 (80-105) 03/25/19 05:40 POC ABG HCO3 17.7 (22-26 mml/L) 03/25/19 05:40 POC ABG Total CO2 19 (23-27mmol/L) 03/25/19 05:40 POC ABG O2 Sat 97 03/25/19 05:40 POC ABG Base Excess -7 ((-2) - (+3)mmol/L) 03/25/19 05:40 30 % 03/25/19 05:40 Sodium 140 mmol/L (137-145) 03/29/19 04:40 Potassium 3.7 mmol/L (3.6-5.0) 03/29/19 04:40 Chloride 102.9 mmol/L (98-107) 03/29/19 04:40 Carbon Dioxide 31 mmol/L (22-30) H 03/29/19 04:40 10 mmol/L 03/29/19 04:40 BUN 22 mg/dL (7-17) H 03/29/19 04:40 0.5 mg/dL (0.7-1.2) L 03/29/19 04:40 Estimated GFR > 60 ml/min 03/29/19 04:40 44 % 03/29/19 04:40 Glucose 80 mg/dL (65-100) 03/29/19 04:40 POC Glucose 84 (70-105) 03/31/19 23:23 4.2 % (4-6) 03/20/19 08:23 Lactic Acid 2.00 mmol/L (0.7-2.0) 03/23/19 04:50 Calcium 8.0 mg/dL (8.4-10.2) L 03/29/19 04:40 Phosphorus 2.00 mg/dL (2.5-4.5) L 03/20/19 17:50 Magnesium 1.70 mg/dL (1.7-2.3) 03/21/19 04:12 Iron 32 ug/dL (37-170) L 03/24/19 14:25 TIBC 75 mcg/dL (250-450) L 03/24/19 14:25 448.3 ng/mL (13.0-400.0) H 03/28/19 07:31 0.50 mg/dL (0.1-1.2) 03/29/19 04:40 0.3 mg/dL (0-0.2) H 03/27/19 13:31 0.2 mg/dL 03/27/19 13:31 AST 23 units/L (5-40) 03/29/19 04:40 ALT 9 units/L (7-56) 03/29/19 04:40 103 units/L (35-129) 03/29/19 04:40 1499 units/L (30-135) H 03/19/19 12:59 0.036 ng/mL (0.00-0.029) H 03/22/19 06:10 5.0 g/dL (6.3-8.2) L 03/29/19 04:40 1.4 g/dL (3.9-5) L 03/29/19 04:40 0.4 % 03/29/19 04:40 0.052 g/L (0.200-0.400) L 03/20/19 08:23 Triglycerides 72 mg/dL (2-149) 03/19/19 12:59 Cholesterol 61 mg/dL (50-199) 03/19/19 12:59 22 mg/dL (50-130) L 03/19/19 12:59 31 mg/dL (40-59) L 03/19/19 12:59 1.96 % 03/19/19 12:59 See scanned result 03/27/19 13:30 Vitamin B12 > 2000 pg/mL (211-911) H 03/25/19 10:11 18.61 ng/mL (7.3-26.0) 03/28/19 07:31 TSH 7.810 mlU/mL (0.270-4.200) H 03/22/19 06:10 Free T4 1.21 ng/dL (0.76-1.46) 03/22/19 06:10 PTH Intact 171.6 pg/mL (15-65) H 03/20/19 17:50 Yellow (Yellow) 03/19/19 12:47 Clear (Clear) 03/19/19 12:47 5.0 (5.0-7.0) 03/19/19 12:47 Ur Specific Ariel 1.010 (1.003-1.030) 03/19/19 12:47 <15 mg/dl mg/dL (Negative) 03/19/19 12:47 50 mg/dL (Negative) 03/19/19 12:47 Neg mg/dL (Negative) 03/19/19 12:47 Lg (Negative) 03/19/19 12:47 Neg (Negative) 03/19/19 12:47 Neg (Negative) 03/19/19 12:47 < 2.0 mg/dL (<2.0) 03/19/19 12:47 Ur Leukocyte Esterase Neg (Negative) 03/19/19 12:47 2.0 /HPF (0.0-6.0) 03/19/19 12:47 2.0 /HPF (0.0-6.0) 03/19/19 12:47 U Epithel Cells (Auto) 1.0 /HPF (0-13.0) 03/19/19 12:47 1+ /HPF (Negative) 03/19/19 12:47 Hyaline Casts 3 /LPF 03/19/19 12:47 Few /HPF 03/19/19 12:47 None seen (None Seen) 03/20/19 16:40 53.7 mg/dL (0.1-20.0) H 03/20/19 16:40 3.8 mg/dL (0.1-34.0) 03/20/19 16:40 Microalb/Creat Ratio 70.7 ug/mg 03/20/19 16:40 116 mmol/L 03/20/19 16:40 36 mg/dL (5-11.8) H 03/20/19 16:40 Vancomycin Trough 23.0 ug/mL (5.0-20.0) H 03/27/19 09:04 Digoxin 2.6 ng/mL (0.9-2.0) H* 03/30/19 04:42 Salicylates < 0.3 mg/dL (2.8-20.0) L 03/19/19 12:59 Acetaminophen < 5.0 ug/mL (10.0-30.0) L 03/19/19 12:59 Heparin-induced Plt Ab Negative (Negative) 03/27/19 13:30 UF Heparin High Dose 0 % Release 03/27/19 13:30 SEMAJ UFH Low Dose 0.1 0 % Release 03/27/19 13:30 SEMAJ UFH Low Dose 0.5 0 % Release 03/27/19 13:30 Blood Type O POSITIVE 03/30/19 07:04 Antibody Screen Negative 03/30/19 07:04 Crossmatch See Detail 03/30/19 07:04 Active Medications - Current Medications Current Medications: Generic Name Dose Route Start Last Admin Trade Name Freq PRN Reason Stop Dose Admin Acetaminophen 650 mg 03/24/19 23:48 03/31/19 17:27 Tylenol FEEDTUBE 650 mg Q6H PRN Administration Fever >101 Albuterol 2.5 mg 03/19/19 23:58 Proventil IH Q3HRT PRN Shortness Of Breath Albuterol/Ipratropium 1 ampul 03/20/19 02:00 04/01/19 07:46 Duoneb *Not For Prn Use* IH 1 ampul Q6HRT YUSUF Administration Amiodarone HCl 200 mg 03/22/19 22:00 03/31/19 22:07 Cordarone PO 200 mg BID YUSUF Administration Lipase/Protease/Amylase 1 each 03/22/19 16:03 Pancretobi Sargent 10,500 Unit FEEDTUBE PRN PRN For Clogged Feeding Tube Aspirin 81 mg 03/21/19 10:00 03/31/19 09:36 Baby Aspirin PO 81 mg DAILY YUSUF Administration Budesonide 0.5 mg 03/19/19 23:45 04/01/19 07:46 Pulmicort IH 0.5 mg Q12HRT YUSUF Administration Dextrose 50 ml 03/19/19 23:58 03/21/19 16:29 D50w (25gm) Syringe IV 50 ml PRN PRN Administration Hypoglycemia Famotidine 20 mg 03/22/19 10:00 03/31/19 22:07 Pepcid PO 20 mg BID YUSUF Administration Fentanyl 50 mcg 03/19/19 12:45 03/19/19 13:26 Sublimaze IV 50 mcg Q10MIN PRN Administration ANALGESIA Hydromorphone HCl 0.5 mg 03/19/19 23:58 Dilaudid IV Q3H PRN Pain , Severe (7-10) Hydrophilic Ointment 1 applic 03/19/19 12:45 Vaseline Lip Therapy TP Q2HR PRN Dry Lips Fentanyl Citrate 2,000 mcg in 100 mls @ 2.835 mls/hr 03/19/19 14:00 03/21/19 11:33 Fentanyl Drip Premix IV 0 mcg/kg/hr TITR YUSUF 0 mls/hr Titration Protocol 1 MCG/KG/HR Norepinephrine 4 mg in 250 mls @ 7.5 mls/hr 03/25/19 11:00 03/30/19 23:45 Levophed Drip 4 Mg/Ns 250 Ml IV 0 mcg/min TITR YUSUF 0 mls/hr Titration Protocol 2 MCG/MIN Meropenem 1,000 mg/ Sodium 100 mls @ 100 mls/hr 03/26/19 15:00 04/01/19 08:00 Chloride IV 100 mls/hr Q8HR YUSUF Administration Protocol Vancomycin HCl 1,250 mg/ 275 mls @ 166.667 mls/hr 03/30/19 13:00 03/31/19 09:35 Sodium Chloride IV 166.667 mls/hr Q24HR YUSUF Administration Insulin Human Lispro 0 unit 03/20/19 00:00 04/01/19 05:20 Humalog SUB-Q Not Given Q6HR [facility] Protocol Metoclopramide HCl 5 mg 03/20/19 00:12 Reglan IV Q6H PRN Nausea And Vomiting Metoprolol Tartrate 2.5 mg 03/23/19 13:17 03/24/19 21:20 Lopressor IV 2.5 mg Q2HR PRN Administration HR >150 Multi-Ingred Cream/Lotion/Oil/Oint 1 applic 03/19/19 12:45 Artificial Tears Ophth Oint OU Q4HR PRN Dry Eye(s) Ondansetron HCl 4 mg 03/19/19 23:58 Zofran IV Q8H PRN Nausea And Vomiting Promethazine HCl 25 mg 03/19/19 23:58 Phenergan NE Q6H PRN N/V IF NPO AND NO IV ACCESS Simple Syrup 15 ml 03/22/19 16:03 03/23/19 07:21 Simple Syrup FEEDTUBE 15 ml PRN PRN Administration Hypoglycemia Simple Syrup 30 ml 03/22/19 16:03 Simple Syrup FEEDTUBE PRN PRN Hypoglycemia Sodium Bicarbonate 325 mg 03/22/19 16:03 Sodium Bicarbonate FEEDTUBE PRN PRN For Clogged Feeding Tube Sodium Chloride 10 ml 03/20/19 10:00 03/31/19 22:07 Sodium Chloride Flush Syringe 10 Ml IV 10 ml BID YUSUF Administration Sodium Chloride 10 ml 03/19/19 23:58 Sodium Chloride Flush Syringe 10 Ml IV PRN PRN LINE FLUSH Nutrition/Malnutrition Assess - Dietary Evaluation Nutrition/Malnutrition Findings: Nutrition Notes Start: 03/20/19 15:29 Freq: Status: Active Protocol: Document 03/31/19 16:37 RM (Rec: 03/31/19 16:39 RM [id number]) Nutrition Notes Initial or Follow up Reassessment Other Pertinent Diagnosis Hx CVA, dementia, R buttock skin tear Current Diet Vital 1.2 at 45 ml/hr Labs/Tests Reviewed Pertinent Medications Reviewed Height 5 ft 5 in Weight 61 kg [place] Body Weight (kg) 56.81 BMI 22.4 Subjective/Other Information Observed Vital 1.2 infusing at goal rate. Per nurse is pt tolerating TF. Percent of energy/protein needs met: 95%/100% Burn Absent Trauma Absent #1 Nutrition Diagnosis Inadequate oral intake Diagnosis Progress(for reassessment Continues documentation) Is patient on ventilator? Yes Is Patient Ambulatory and/or Out of Bed No REE-([facility]-confined to bed) 1357.140 Calculation Used for Recommendations [facility] Additional Notes Protein Needs: 75-124g (1.2-2g /kg) Fluid Needs: 1 ml/kcal Nutrition Intervention Nutrition Support: Vital 1.2 at 45 ml/hr Water flush of 100 mls 4 q hrs Kcal 1,296 Protein (gm) 81 Fluid (mL) 876 Goal #1 TF tolerance Goal #2 Continue to meet at least 80% of calorie and protein needs via TF Anticipated Discharge Needs: Unable to determine at this time Follow-Up By: 04/07/19 Additional Comments Follow for TF tolerance
[2019-04-01] MEDS: CORDARONE PO SCH ×2 (10:36→22:00)
[2019-04-01] MEDS: VANCOMYCIN 1,250 MG in NACL 0.9% 250ML 250 ML IV SCH (10:36)
[2019-04-01] MEDS: SODIUM CHLORIDE FLUSH SYRINGE 10 ML IV SCH ×2 (10:36→22:01)
[2019-04-01] MEDS: PEPCID PO SCH ×2 (10:36→22:01)
[2019-04-01] MEDS: BABY ASPIRIN PO SCH (10:41)
--- NOTE | 2019-04-01 11:17 | Progress Note ---
Assessment and Plan 73 y/o female found unresponsive now intubated and septic, etiology thought secondary to pneumonia with anemia and thrombocytopenia, and persistent fevers found to have multiple DVT's. No new recommendations. Please see below. 1. Anticoagulation stopped given drop in HgB but I have ordered a stat CBC and repeat CBC at 2000 tonight. Follow up any new heme recs 2. Continue IV abx therapy as per ID. Agree with adding Gram positive coverage with Vanc 3. Long discussion with daughter Caterina over the phone (03/29). Will attempt to meet with her tomorrow to discuss rn long term care goals of care. Patient was on home hospice not for a terminal illness (seizures) but the daughter needed more help which she could not get from any other services. The patient has essentially been bed bound for the last several years but this is the sickest she has been since the strokes. 4. Family now looking at inpatient hospice facilities. Case Management is aware. Will transition to there once family decides on a place. Continue supportive measures until then. CCT 31 minutes. Subjective Date of service: 04/01/19 Principal diagnosis: low plt - DVT Interval history: No acute events. Tolerated PSV briefly yesterday. Family has decided on [facility] hospice, awaiting their decision on which facility. Objective Vital Signs - 12hr 03/31/19 03/31/19 04/01/19 23:30 23:45 00:00 Temperature Pulse Rate 117 H 116 H 115 H Pulse Rate [ Anterior Bilateral Throughout] Pulse Rate [ 110 H From Monitor] Pulse Rate [ Left Dorsalis Pedis] Pulse Rate [ Left Radial] Pulse Rate [ Right Dorsalis Pedis] Pulse Rate [ Right Radial] Respiratory 21 29 H 25 H Rate Respiratory Rate [Anterior Bilateral Throughout] Blood Pressure 123/66 127/52 127/57 O2 Sat by Pulse 94 94 94 Oximetry 04/01/19 04/01/19 04/01/19 00:15 00:30 00:31 Temperature Pulse Rate 116 H 119 H 116 H Pulse Rate [ Anterior Bilateral Throughout] Pulse Rate [ From Monitor] Pulse Rate [ Left Dorsalis Pedis] Pulse Rate [ Left Radial] Pulse Rate [ Right Dorsalis Pedis] Pulse Rate [ Right Radial] Respiratory 28 H 32 H Rate Respiratory Rate [Anterior Bilateral Throughout] Blood Pressure 139/62 133/67 133/67 O2 Sat by Pulse 93 94 95 Oximetry 04/01/19 04/01/19 04/01/19 00:45 01:00 01:15 Temperature Pulse Rate 112 H 111 H 114 H Pulse Rate [ Anterior Bilateral Throughout] Pulse Rate [ From Monitor] Pulse Rate [ Left Dorsalis Pedis] Pulse Rate [ Left Radial] Pulse Rate [ Right Dorsalis Pedis] Pulse Rate [ Right Radial] Respiratory 29 H 23 20 Rate Respiratory Rate [Anterior Bilateral Throughout] Blood Pressure 132/54 117/55 139/62 O2 Sat by Pulse 94 94 95 Oximetry 04/01/19 04/01/19 04/01/19 01:30 01:45 02:00 Temperature Pulse Rate 113 H 112 H 115 H Pulse Rate [ Anterior Bilateral Throughout] Pulse Rate [ From Monitor] Pulse Rate [ Left Dorsalis Pedis] Pulse Rate [ Left Radial] Pulse Rate [ Right Dorsalis Pedis] Pulse Rate [ Right Radial] Respiratory 22 31 H 16 Rate Respiratory Rate [Anterior Bilateral Throughout] Blood Pressure 136/57 134/61 138/65 O2 Sat by Pulse 94 94 95 Oximetry 04/01/19 04/01/19 04/01/19 02:15 02:18 02:30 Temperature Pulse Rate 113 H 116 H Pulse Rate [ 115 H Anterior Bilateral Throughout] Pulse Rate [ From Monitor] Pulse Rate [ Left Dorsalis Pedis] Pulse Rate [ Left Radial] Pulse Rate [ Right Dorsalis Pedis] Pulse Rate [ Right Radial] Respiratory 22 23 Rate Respiratory 18 Rate [Anterior Bilateral Throughout] Blood Pressure 124/58 141/59 O2 Sat by Pulse 94 94 Oximetry 04/01/19 04/01/19 04/01/19 02:45 02:58 03:00 Temperature 101 F H Pulse Rate 114 H 116 H Pulse Rate [ Anterior Bilateral Throughout] Pulse Rate [ From Monitor] Pulse Rate [ Left Dorsalis Pedis] Pulse Rate [ Left Radial] Pulse Rate [ Right Dorsalis Pedis] Pulse Rate [ Right Radial] Respiratory 17 17 Rate Respiratory Rate [Anterior Bilateral Throughout] Blood Pressure 149/56 146/66 O2 Sat by Pulse 96 96 Oximetry 04/01/19 04/01/19 04/01/19 03:15 03:30 03:45 Temperature Pulse Rate 116 H 114 H 116 H Pulse Rate [ Anterior Bilateral Throughout] Pulse Rate [ From Monitor] Pulse Rate [ Left Dorsalis Pedis] Pulse Rate [ Left Radial] Pulse Rate [ Right Dorsalis Pedis] Pulse Rate [ Right Radial] Respiratory 19 22 16 Rate Respiratory Rate [Anterior Bilateral Throughout] Blood Pressure 137/70 126/63 137/68 O2 Sat by Pulse 96 96 96 Oximetry 04/01/19 04/01/19 04/01/19 04:00 04:12 04:15 Temperature Pulse Rate 115 H 116 H 116 H Pulse Rate [ Anterior Bilateral Throughout] Pulse Rate [ 114 H From Monitor] Pulse Rate [ 114 H Left Dorsalis Pedis] Pulse Rate [ 114 H Left Radial] Pulse Rate [ 114 H Right Dorsalis Pedis] Pulse Rate [ 114 H Right Radial] Respiratory 16 20 Rate Respiratory Rate [Anterior Bilateral Throughout] Blood Pressure 143/66 154/66 154/66 O2 Sat by Pulse 96 96 96 Oximetry 04/01/19 04/01/19 04/01/19 04:30 04:45 05:00 Temperature Pulse Rate 124 H 113 H 118 H Pulse Rate [ Anterior Bilateral Throughout] Pulse Rate [ From Monitor] Pulse Rate [ Left Dorsalis Pedis] Pulse Rate [ Left Radial] Pulse Rate [ Right Dorsalis Pedis] Pulse Rate [ Right Radial] Respiratory 20 21 19 Rate Respiratory Rate [Anterior Bilateral Throughout] Blood Pressure 147/79 141/69 149/72 O2 Sat by Pulse 94 95 95 Oximetry 04/01/19 04/01/19 04/01/19 05:15 05:30 05:45 Temperature Pulse Rate 114 H 118 H 120 H Pulse Rate [ Anterior Bilateral Throughout] Pulse Rate [ From Monitor] Pulse Rate [ Left Dorsalis Pedis] Pulse Rate [ Left Radial] Pulse Rate [ Right Dorsalis Pedis] Pulse Rate [ Right Radial] Respiratory 22 21 20 Rate Respiratory Rate [Anterior Bilateral Throughout] Blood Pressure 134/63 140/68 138/67 O2 Sat by Pulse 96 95 95 Oximetry 04/01/19 04/01/19 04/01/19 06:00 06:15 06:30 Temperature Pulse Rate 118 H 118 H 119 H Pulse Rate [ Anterior Bilateral Throughout] Pulse Rate [ From Monitor] Pulse Rate [ Left Dorsalis Pedis] Pulse Rate [ Left Radial] Pulse Rate [ Right Dorsalis Pedis] Pulse Rate [ Right Radial] Respiratory 22 21 16 Rate Respiratory Rate [Anterior Bilateral Throughout] Blood Pressure 154/67 151/68 149/69 O2 Sat by Pulse 96 97 96 Oximetry 04/01/19 04/01/19 04/01/19 06:45 07:00 07:15 Temperature Pulse Rate 120 H 119 H 117 H Pulse Rate [ Anterior Bilateral Throughout] Pulse Rate [ From Monitor] Pulse Rate [ Left Dorsalis Pedis] Pulse Rate [ Left Radial] Pulse Rate [ Right Dorsalis Pedis] Pulse Rate [ Right Radial] Respiratory 24 20 17 Rate Respiratory Rate [Anterior Bilateral Throughout] Blood Pressure 145/67 152/69 146/64 O2 Sat by Pulse 96 98 96 Oximetry 04/01/19 04/01/19 07:46 07:47 Temperature Pulse Rate 121 H Pulse Rate [ 117 H Anterior Bilateral Throughout] Pulse Rate [ From Monitor] Pulse Rate [ Left Dorsalis Pedis] Pulse Rate [ Left Radial] Pulse Rate [ Right Dorsalis Pedis] Pulse Rate [ Right Radial] Respiratory Rate Respiratory 18 Rate [Anterior Bilateral Throughout] Blood Pressure 151/68 O2 Sat by Pulse 97 Oximetry Constitutional: lethargic, other (intubated on vent responds to name. follows commands) Eyes: non-icteric ENT: other (intubated ) Neck: supple Effort: mildly labored, other (poor efforts ) Ascultation: Bilateral: diminished breath sounds (grossly clear ), rales (coarse bilat ) Percussion: Bilateral: not dull, dull Cardiovascular: other (tachy AF ) Gastrointestinal: hypoactive bowel sounds Integumentary: normal Extremities: anasarca Neurologic: unable to assess CBC and BMP: 03/31/19 05:00 03/29/19 04:40 ABG, PT/INR, D-dimer: ABG POC ABG pH 7.411 (7.35-7.45) 03/25/19 05:40 POC ABG pO2 83 (80-105) 03/25/19 05:40 POC ABG HCO3 17.7 (22-26 mml/L) 03/25/19 05:40 POC ABG Total CO2 19 (23-27mmol/L) 03/25/19 05:40 POC ABG O2 Sat 97 03/25/19 05:40 PT/INR, D-dimer PT 21.4 Sec. (12.2-14.9) H 03/27/19 14:04 INR 1.90 (0.87-1.13) H 03/27/19 14:04 Abnormal lab findings: Abnormal Labs 03/19/19 03/19/19 03/19/19 12:59 12:59 12:59 WBC RBC 3.44 L Hgb Hct MCV 101 H MCH 34 H MCHC RDW Plt Count 98 L Lymph % (Auto) [place] % (Auto) Lymph # [place] # Seg Neutrophils % Seg Neuts % (Manual) 11.0 L Lymphocytes % (Manual) Monocytes % (Manual) 10.0 H Eosinophils % (Manual) Nucleated RBC % 1.0 H Seg Neutrophils # Seg Neutrophils # Man 0.6 L Lymphocytes # (Manual) Monocytes # (Manual) Eosinophils # (Manual) PT INR APTT POC ABG pH POC ABG pCO2 POC ABG pO2 Sodium 149 H Potassium Chloride 109.4 H Carbon Dioxide BUN 51 H Creatinine 3.2 H Glucose 58 L POC Glucose Lactic Acid 7.60 H* Calcium 7.8 L Phosphorus Magnesium 1.60 L Iron TIBC Ferritin Direct Bilirubin AST 75 H Total Creatine Kinase 1499 H Troponin T 0.109 H* Total Protein 5.2 L Albumin 1.7 L Prealbumin LDL Cholesterol Direct 22 L HDL Cholesterol 31 L Vitamin B12 TSH PTH Intact Urine Creatinine Urine Total Protein Vancomycin Trough Digoxin Salicylates Acetaminophen Crossmatch 03/19/19 03/19/19 03/19/19 12:59 12:59 14:48 WBC RBC Hgb Hct MCV MCH MCHC RDW Plt Count Lymph % (Auto) [place] % (Auto) Lymph # [place] # Seg Neutrophils % Seg Neuts % (Manual) Lymphocytes % (Manual) Monocytes % (Manual) Eosinophils % (Manual) Nucleated RBC % Seg Neutrophils # Seg Neutrophils # Man Lymphocytes # (Manual) Monocytes # (Manual) Eosinophils # (Manual) PT INR APTT POC ABG pH POC ABG pCO2 POC ABG pO2 Sodium Potassium Chloride Carbon Dioxide BUN Creatinine Glucose POC Glucose 44 L Lactic Acid Calcium Phosphorus Magnesium Iron TIBC Ferritin Direct Bilirubin AST Total Creatine Kinase Troponin T Total Protein Albumin Prealbumin LDL Cholesterol Direct HDL Cholesterol Vitamin B12 TSH PTH Intact Urine Creatinine Urine Total Protein Vancomycin Trough Digoxin Salicylates < 0.3 L Acetaminophen < 5.0 L Crossmatch 03/19/19 03/19/19 03/19/19 15:33 15:52 16:26 WBC RBC Hgb Hct MCV MCH MCHC RDW Plt Count Lymph % (Auto) [place] % (Auto) Lymph # [place] # Seg Neutrophils % Seg Neuts % (Manual) Lymphocytes % (Manual) Monocytes % (Manual) Eosinophils % (Manual) Nucleated RBC % Seg Neutrophils # Seg Neutrophils # Man Lymphocytes # (Manual) Monocytes # (Manual) Eosinophils # (Manual) PT INR APTT POC ABG pH POC ABG pCO2 POC ABG pO2 Sodium Potassium Chloride Carbon Dioxide BUN Creatinine Glucose POC Glucose 228 H 231 H Lactic Acid Calcium Phosphorus Magnesium Iron TIBC Ferritin Direct Bilirubin AST Total Creatine Kinase Troponin T Total Protein Albumin Prealbumin LDL Cholesterol Direct HDL Cholesterol Vitamin B12 TSH PTH Intact Urine Creatinine 31.8 H Urine Total Protein Vancomycin Trough Digoxin Salicylates Acetaminophen Crossmatch 03/19/19 03/19/19 03/19/19 16:38 17:14 18:43 WBC RBC Hgb Hct MCV MCH MCHC RDW Plt Count Lymph % (Auto) [place] % (Auto) Lymph # [place] # Seg Neutrophils % Seg Neuts % (Manual) Lymphocytes % (Manual) Monocytes % (Manual) Eosinophils % (Manual) Nucleated RBC % Seg Neutrophils # Seg Neutrophils # Man Lymphocytes # (Manual) Monocytes # (Manual) Eosinophils # (Manual) PT INR APTT POC ABG pH 7.196 L POC ABG pCO2 30.8 L POC ABG pO2 Sodium Potassium Chloride Carbon Dioxide BUN Creatinine Glucose POC Glucose 235 H Lactic Acid 8.10 H* Calcium Phosphorus Magnesium Iron TIBC Ferritin Direct Bilirubin AST Total Creatine Kinase Troponin T Total Protein Albumin Prealbumin LDL Cholesterol Direct HDL Cholesterol Vitamin B12 TSH PTH Intact Urine Creatinine Urine Total Protein Vancomycin Trough Digoxin Salicylates Acetaminophen Crossmatch 03/19/19 03/19/19 03/19/19 18:52 20:00 20:56 WBC RBC Hgb Hct MCV MCH MCHC RDW Plt Count Lymph % (Auto) [place] % (Auto) Lymph # [place] # Seg Neutrophils % Seg Neuts % (Manual) Lymphocytes % (Manual) Monocytes % (Manual) Eosinophils % (Manual) Nucleated RBC % Seg Neutrophils # Seg Neutrophils # Man Lymphocytes # (Manual) Monocytes # (Manual) Eosinophils # (Manual) PT INR APTT POC ABG pH POC ABG pCO2 POC ABG pO2 Sodium Potassium Chloride Carbon Dioxide BUN Creatinine Glucose POC Glucose 240 H 117 H Lactic Acid 5.90 H* Calcium Phosphorus Magnesium Iron TIBC Ferritin Direct Bilirubin AST Total Creatine Kinase Troponin T Total Protein Albumin Prealbumin LDL Cholesterol Direct HDL Cholesterol Vitamin B12 TSH PTH Intact Urine Creatinine Urine Total Protein Vancomycin Trough Digoxin Salicylates Acetaminophen Crossmatch 03/19/19 03/19/19 03/19/19 21:19 22:07 23:00 WBC RBC Hgb Hct MCV MCH MCHC RDW Plt Count Lymph % (Auto) [place] % (Auto) Lymph # [place] # Seg Neutrophils % Seg Neuts % (Manual) Lymphocytes % (Manual) Monocytes % (Manual) Eosinophils % (Manual) Nucleated RBC % Seg Neutrophils # Seg Neutrophils # Man Lymphocytes # (Manual) Monocytes # (Manual) Eosinophils # (Manual) PT INR APTT POC ABG pH POC ABG pCO2 POC ABG pO2 Sodium Potassium Chloride Carbon Dioxide BUN Creatinine Glucose POC Glucose < 40 L 136 H Lactic Acid 6.10 H* Calcium Phosphorus Magnesium Iron TIBC Ferritin Direct Bilirubin AST Total Creatine Kinase Troponin T Total Protein Albumin Prealbumin LDL Cholesterol Direct HDL Cholesterol Vitamin B12 TSH PTH Intact Urine Creatinine Urine Total Protein Vancomycin Trough Digoxin Salicylates Acetaminophen Crossmatch 03/20/19 03/20/19 03/20/19 00:05 01:38 02:23 WBC RBC Hgb Hct MCV MCH MCHC RDW Plt Count Lymph % (Auto) [place] % (Auto) Lymph # [place] # Seg Neutrophils % Seg Neuts % (Manual) Lymphocytes % (Manual) Monocytes % (Manual) Eosinophils % (Manual) Nucleated RBC % Seg Neutrophils # Seg Neutrophils # Man Lymphocytes # (Manual) Monocytes # (Manual) Eosinophils # (Manual) PT INR APTT POC ABG pH POC ABG pCO2 POC ABG pO2 Sodium Potassium Chloride Carbon Dioxide BUN Creatinine Glucose POC Glucose 68 L 153 H 127 H Lactic Acid Calcium Phosphorus Magnesium Iron TIBC Ferritin Direct Bilirubin AST Total Creatine Kinase Troponin T Total Protein Albumin Prealbumin LDL Cholesterol Direct HDL Cholesterol Vitamin B12 TSH PTH Intact Urine Creatinine Urine Total Protein Vancomycin Trough Digoxin Salicylates Acetaminophen Crossmatch 03/20/19 03/20/19 03/20/19 03:12 04:31 04:41 WBC RBC Hgb Hct MCV MCH MCHC RDW Plt Count Lymph % (Auto) [place] % (Auto) Lymph # [place] # Seg Neutrophils % Seg Neuts % (Manual) Lymphocytes % (Manual) Monocytes % (Manual) Eosinophils % (Manual) Nucleated RBC % Seg Neutrophils # Seg Neutrophils # Man Lymphocytes # (Manual) Monocytes # (Manual) Eosinophils # (Manual) PT INR APTT POC ABG pH POC ABG pCO2 POC ABG pO2 53 L 65 L Sodium Potassium Chloride Carbon Dioxide BUN Creatinine Glucose POC Glucose 109 H Lactic Acid Calcium Phosphorus Magnesium Iron TIBC Ferritin Direct Bilirubin AST Total Creatine Kinase Troponin T Total Protein Albumin Prealbumin LDL Cholesterol Direct HDL Cholesterol Vitamin B12 TSH PTH Intact Urine Creatinine Urine Total Protein Vancomycin Trough Digoxin Salicylates Acetaminophen Crossmatch 03/20/19 03/20/19 03/20/19 05:50 07:29 08:14 WBC RBC Hgb Hct MCV MCH MCHC RDW Plt Count Lymph % (Auto) [place] % (Auto) Lymph # [place] # Seg Neutrophils % Seg Neuts % (Manual) Lymphocytes % (Manual) Monocytes % (Manual) Eosinophils % (Manual) Nucleated RBC % Seg Neutrophils # Seg Neutrophils # Man Lymphocytes # (Manual) Monocytes # (Manual) Eosinophils # (Manual) PT INR APTT POC ABG pH POC ABG pCO2 POC ABG pO2 Sodium Potassium Chloride Carbon Dioxide BUN Creatinine Glucose 61 L POC Glucose 47 L 153 H Lactic Acid Calcium Phosphorus Magnesium 1.60 L Iron TIBC Ferritin Direct Bilirubin AST Total Creatine Kinase Troponin T Total Protein Albumin Prealbumin LDL Cholesterol Direct HDL Cholesterol Vitamin B12 TSH PTH Intact Urine Creatinine Urine Total Protein Vancomycin Trough Digoxin Salicylates Acetaminophen Crossmatch 03/20/19 03/20/19 03/20/19 08:23 08:23 10:59 WBC RBC Hgb Hct MCV MCH MCHC RDW Plt Count Lymph % (Auto) [place] % (Auto) Lymph # [place] # Seg Neutrophils % Seg Neuts % (Manual) Lymphocytes % (Manual) Monocytes % (Manual) Eosinophils % (Manual) Nucleated RBC % Seg Neutrophils # Seg Neutrophils # Man Lymphocytes # (Manual) Monocytes # (Manual) Eosinophils # (Manual) PT INR APTT POC ABG pH POC ABG pCO2 POC ABG pO2 Sodium Potassium Chloride Carbon Dioxide BUN Creatinine Glucose 101 H POC Glucose 233 H Lactic Acid 9.70 H* Calcium Phosphorus Magnesium Iron TIBC Ferritin Direct Bilirubin AST Total Creatine Kinase Troponin T Total Protein Albumin Prealbumin 0.052 L LDL Cholesterol Direct HDL Cholesterol Vitamin B12 TSH PTH Intact Urine Creatinine Urine Total Protein Vancomycin Trough Digoxin Salicylates Acetaminophen Crossmatch 03/20/19 03/20/19 03/20/19 12:23 16:10 16:40 WBC RBC Hgb Hct MCV MCH MCHC RDW Plt Count Lymph % (Auto) [place] % (Auto) Lymph # [place] # Seg Neutrophils % Seg Neuts % (Manual) Lymphocytes % (Manual) Monocytes % (Manual) Eosinophils % (Manual) Nucleated RBC % Seg Neutrophils # Seg Neutrophils # Man Lymphocytes # (Manual) Monocytes # (Manual) Eosinophils # (Manual) PT INR APTT POC ABG pH POC ABG pCO2 POC ABG pO2 Sodium Potassium Chloride Carbon Dioxide BUN Creatinine Glucose POC Glucose 135 H 171 H Lactic Acid Calcium Phosphorus Magnesium Iron TIBC Ferritin Direct Bilirubin AST Total Creatine Kinase Troponin T Total Protein Albumin Prealbumin LDL Cholesterol Direct HDL Cholesterol Vitamin B12 TSH PTH Intact Urine Creatinine 53.7 H Urine Total Protein 36 H Vancomycin Trough Digoxin Salicylates Acetaminophen Crossmatch 03/20/19 03/20/19 03/20/19 16:57 17:38 17:50 WBC RBC Hgb Hct MCV MCH MCHC RDW Plt Count Lymph % (Auto) [place] % (Auto) Lymph # [place] # Seg Neutrophils % Seg Neuts % (Manual) Lymphocytes % (Manual) Monocytes % (Manual) Eosinophils % (Manual) Nucleated RBC % Seg Neutrophils # Seg Neutrophils # Man Lymphocytes # (Manual) Monocytes # (Manual) Eosinophils # (Manual) PT INR APTT POC ABG pH POC ABG pCO2 POC ABG pO2 Sodium Potassium Chloride Carbon Dioxide BUN Creatinine Glucose POC Glucose 152 H 147 H Lactic Acid 9.90 H* Calcium Phosphorus Magnesium Iron TIBC Ferritin Direct Bilirubin AST Total Creatine Kinase Troponin T Total Protein Albumin Prealbumin LDL Cholesterol Direct HDL Cholesterol Vitamin B12 TSH PTH Intact Urine Creatinine Urine Total Protein Vancomycin Trough Digoxin Salicylates Acetaminophen Crossmatch 03/20/19 03/20/19 03/20/19 17:50 17:50 17:50 WBC RBC 2.92 L Hgb 10.0 L Hct 29.3 L MCV 100 H MCH 34 H MCHC RDW Plt Count 81 L Lymph % (Auto) [place] % (Auto) Lymph # [place] # Seg Neutrophils % Seg Neuts % (Manual) Lymphocytes % (Manual) Monocytes % (Manual) Eosinophils % (Manual) Nucleated RBC % Seg Neutrophils # Seg Neutrophils # Man Lymphocytes # (Manual) Monocytes # (Manual) Eosinophils # (Manual) PT INR APTT POC ABG pH POC ABG pCO2 POC ABG pO2 Sodium Potassium 2.8 L* D Chloride Carbon Dioxide BUN 30 H Creatinine 1.6 H Glucose 107 H POC Glucose Lactic Acid Calcium 6.9 L Phosphorus 2.00 L Magnesium Iron TIBC Ferritin Direct Bilirubin AST Total Creatine Kinase Troponin T Total Protein Albumin Prealbumin LDL Cholesterol Direct HDL Cholesterol Vitamin B12 TSH PTH Intact 171.6 H Urine Creatinine Urine Total Protein Vancomycin Trough Digoxin Salicylates Acetaminophen Crossmatch 03/20/19 03/21/19 03/21/19 21:12 00:30 04:12 WBC RBC Hgb Hct MCV MCH MCHC RDW Plt Count Lymph % (Auto) [place] % (Auto) Lymph # [place] # Seg Neutrophils % Seg Neuts % (Manual) Lymphocytes % (Manual) Monocytes % (Manual) Eosinophils % (Manual) Nucleated RBC % Seg Neutrophils # Seg Neutrophils # Man Lymphocytes # (Manual) Monocytes # (Manual) Eosinophils # (Manual) PT INR APTT POC ABG pH POC ABG pCO2 POC ABG pO2 Sodium Potassium 3.0 L Chloride Carbon Dioxide 21 L BUN Creatinine 1.4 H Glucose 103 H POC Glucose Lactic Acid 8.70 H* 9.40 H* Calcium 6.8 L Phosphorus Magnesium Iron TIBC Ferritin Direct Bilirubin AST Total Creatine Kinase Troponin T Total Protein Albumin Prealbumin LDL Cholesterol Direct HDL Cholesterol Vitamin B12 TSH PTH Intact Urine Creatinine Urine Total Protein Vancomycin Trough Digoxin Salicylates Acetaminophen Crossmatch 03/21/19 03/21/19 03/21/19 04:12 04:12 04:43 WBC RBC 2.84 L Hgb 9.5 L Hct 28.3 L MCV 100 H MCH 33 H MCHC RDW Plt Count 79 L Lymph % (Auto) [place] % (Auto) Lymph # [place] # Seg Neutrophils % Seg Neuts % (Manual) Lymphocytes % (Manual) Monocytes % (Manual) Eosinophils % (Manual) Nucleated RBC % Seg Neutrophils # Seg Neutrophils # Man Lymphocytes # (Manual) Monocytes # (Manual) Eosinophils # (Manual) PT INR APTT POC ABG pH 7.456 H POC ABG pCO2 POC ABG pO2 Sodium Potassium Chloride Carbon Dioxide BUN Creatinine Glucose POC Glucose Lactic Acid 9.50 H* Calcium Phosphorus Magnesium Iron TIBC Ferritin Direct Bilirubin AST Total Creatine Kinase Troponin T Total Protein Albumin Prealbumin LDL Cholesterol Direct HDL Cholesterol Vitamin B12 TSH PTH Intact Urine Creatinine Urine Total Protein Vancomycin Trough Digoxin Salicylates Acetaminophen Crossmatch 03/21/19 03/21/19 03/21/19 08:06 08:08 10:11 WBC RBC Hgb Hct MCV MCH MCHC RDW Plt Count Lymph % (Auto) [place] % (Auto) Lymph # [place] # Seg Neutrophils % Seg Neuts % (Manual) Lymphocytes % (Manual) Monocytes % (Manual) Eosinophils % (Manual) Nucleated RBC % Seg Neutrophils # Seg Neutrophils # Man Lymphocytes # (Manual) Monocytes # (Manual) Eosinophils # (Manual) PT INR APTT POC ABG pH POC ABG pCO2 POC ABG pO2 Sodium Potassium 3.5 L Chloride Carbon Dioxide BUN 22 H Creatinine 1.3 H Glucose POC Glucose 64 L Lactic Acid 8.00 H* Calcium 7.0 L Phosphorus Magnesium Iron TIBC Ferritin Direct Bilirubin AST Total Creatine Kinase Troponin T Total Protein Albumin Prealbumin LDL Cholesterol Direct HDL Cholesterol Vitamin B12 TSH PTH Intact Urine Creatinine Urine Total Protein Vancomycin Trough Digoxin Salicylates Acetaminophen Crossmatch 03/21/19 03/21/19 03/21/19 11:17 12:17 13:37 WBC RBC Hgb Hct MCV MCH MCHC RDW Plt Count Lymph % (Auto) [place] % (Auto) Lymph # [place] # Seg Neutrophils % Seg Neuts % (Manual) Lymphocytes % (Manual) Monocytes % (Manual) Eosinophils % (Manual) Nucleated RBC % Seg Neutrophils # Seg Neutrophils # Man Lymphocytes # (Manual) Monocytes # (Manual) Eosinophils # (Manual) PT INR APTT POC ABG pH POC ABG pCO2 POC ABG pO2 Sodium Potassium Chloride Carbon Dioxide BUN Creatinine Glucose POC Glucose 173 H 110 H Lactic Acid Calcium Phosphorus Magnesium Iron TIBC Ferritin Direct Bilirubin AST Total Creatine Kinase Troponin T 0.033 H D Total Protein Albumin Prealbumin LDL Cholesterol Direct HDL Cholesterol Vitamin B12 TSH PTH Intact Urine Creatinine Urine Total Protein Vancomycin Trough Digoxin Salicylates Acetaminophen Crossmatch 03/21/19 03/21/19 03/21/19 13:37 17:21 18:52 WBC RBC Hgb Hct MCV MCH MCHC RDW Plt Count Lymph % (Auto) [place] % (Auto) Lymph # [place] # Seg Neutrophils % Seg Neuts % (Manual) Lymphocytes % (Manual) Monocytes % (Manual) Eosinophils % (Manual) Nucleated RBC % Seg Neutrophils # Seg Neutrophils # Man Lymphocytes # (Manual) Monocytes # (Manual) Eosinophils # (Manual) PT INR APTT POC ABG pH POC ABG pCO2 POC ABG pO2 Sodium Potassium Chloride Carbon Dioxide BUN Creatinine Glucose POC Glucose 130 H 107 H Lactic Acid 6.80 H* Calcium Phosphorus Magnesium Iron TIBC Ferritin Direct Bilirubin AST Total Creatine Kinase Troponin T Total Protein Albumin Prealbumin LDL Cholesterol Direct HDL Cholesterol Vitamin B12 TSH PTH Intact Urine Creatinine Urine Total Protein Vancomycin Trough Digoxin Salicylates Acetaminophen Crossmatch 03/21/19 03/21/19 03/21/19 20:20 22:08 23:05 WBC RBC Hgb Hct MCV MCH MCHC RDW Plt Count Lymph % (Auto) [place] % (Auto) Lymph # [place] # Seg Neutrophils % Seg Neuts % (Manual) Lymphocytes % (Manual) Monocytes % (Manual) Eosinophils % (Manual) Nucleated RBC % Seg Neutrophils # Seg Neutrophils # Man Lymphocytes # (Manual) Monocytes # (Manual) Eosinophils # (Manual) PT INR APTT POC ABG pH POC ABG pCO2 POC ABG pO2 Sodium Potassium Chloride Carbon Dioxide BUN Creatinine Glucose POC Glucose 106 H 106 H Lactic Acid Calcium Phosphorus Magnesium Iron TIBC Ferritin Direct Bilirubin AST Total Creatine Kinase Troponin T 0.036 H Total Protein Albumin Prealbumin LDL Cholesterol Direct HDL Cholesterol Vitamin B12 TSH PTH Intact Urine Creatinine Urine Total Protein Vancomycin Trough Digoxin Salicylates Acetaminophen Crossmatch 03/21/19 03/21/19 03/22/19 23:05 23:05 00:14 WBC RBC Hgb Hct MCV MCH MCHC RDW Plt Count Lymph % (Auto) [place] % (Auto) Lymph # [place] # Seg Neutrophils % Seg Neuts % (Manual) Lymphocytes % (Manual) Monocytes % (Manual) Eosinophils % (Manual) Nucleated RBC % Seg Neutrophils # Seg Neutrophils # Man Lymphocytes # (Manual) Monocytes # (Manual) Eosinophils # (Manual) PT INR APTT POC ABG pH POC ABG pCO2 POC ABG pO2 Sodium Potassium Chloride Carbon Dioxide BUN Creatinine Glucose POC Glucose 122 H 109 H Lactic Acid 7.00 H* Calcium Phosphorus Magnesium Iron TIBC Ferritin Direct Bilirubin AST Total Creatine Kinase Troponin T Total Protein Albumin Prealbumin LDL Cholesterol Direct HDL Cholesterol Vitamin B12 TSH PTH Intact Urine Creatinine Urine Total Protein Vancomycin Trough Digoxin Salicylates Acetaminophen Crossmatch 03/22/19 03/22/19 03/22/19 03:10 04:02 05:11 WBC RBC Hgb Hct MCV MCH MCHC RDW Plt Count Lymph % (Auto) [place] % (Auto) Lymph # [place] # Seg Neutrophils % Seg Neuts % (Manual) Lymphocytes % (Manual) Monocytes % (Manual) Eosinophils % (Manual) Nucleated RBC % Seg Neutrophils # Seg Neutrophils # Man Lymphocytes # (Manual) Monocytes # (Manual) Eosinophils # (Manual) PT INR APTT POC ABG pH 7.487 H POC ABG pCO2 POC ABG pO2 67 L Sodium Potassium Chloride Carbon Dioxide BUN Creatinine Glucose POC Glucose 114 H 112 H Lactic Acid Calcium Phosphorus Magnesium Iron TIBC Ferritin Direct Bilirubin AST Total Creatine Kinase Troponin T Total Protein Albumin Prealbumin LDL Cholesterol Direct HDL Cholesterol Vitamin B12 TSH PTH Intact Urine Creatinine Urine Total Protein Vancomycin Trough Digoxin Salicylates Acetaminophen Crossmatch 03/22/19 03/22/19 03/22/19 06:06 06:10 06:10 WBC RBC Hgb Hct MCV MCH MCHC RDW Plt Count Lymph % (Auto) [place] % (Auto) Lymph # [place] # Seg Neutrophils % Seg Neuts % (Manual) Lymphocytes % (Manual) Monocytes % (Manual) Eosinophils % (Manual) Nucleated RBC % Seg Neutrophils # Seg Neutrophils # Man Lymphocytes # (Manual) Monocytes # (Manual) Eosinophils # (Manual) PT INR APTT POC ABG pH POC ABG pCO2 POC ABG pO2 Sodium Potassium 3.0 L Chloride Carbon Dioxide BUN Creatinine Glucose POC Glucose 115 H Lactic Acid Calcium 7.0 L Phosphorus Magnesium Iron TIBC Ferritin Direct Bilirubin AST Total Creatine Kinase Troponin T 0.036 H Total Protein Albumin Prealbumin LDL Cholesterol Direct HDL Cholesterol Vitamin B12 TSH PTH Intact Urine Creatinine Urine Total Protein Vancomycin Trough Digoxin Salicylates Acetaminophen Crossmatch 03/22/19 03/22/19 03/22/19 06:10 06:10 11:59 WBC RBC Hgb Hct MCV MCH MCHC RDW Plt Count Lymph % (Auto) [place] % (Auto) Lymph # [place] # Seg Neutrophils % Seg Neuts % (Manual) Lymphocytes % (Manual) Monocytes % (Manual) Eosinophils % (Manual) Nucleated RBC % Seg Neutrophils # Seg Neutrophils # Man Lymphocytes # (Manual) Monocytes # (Manual) Eosinophils # (Manual) PT INR APTT POC ABG pH POC ABG pCO2 POC ABG pO2 Sodium Potassium Chloride Carbon Dioxide BUN Creatinine Glucose POC Glucose Lactic Acid 4.80 H* 3.80 H* Calcium Phosphorus Magnesium Iron TIBC Ferritin Direct Bilirubin AST Total Creatine Kinase Troponin T Total Protein Albumin Prealbumin LDL Cholesterol Direct HDL Cholesterol Vitamin B12 TSH 7.810 H PTH Intact Urine Creatinine Urine Total Protein Vancomycin Trough Digoxin Salicylates Acetaminophen Crossmatch 03/22/19 03/22/19 03/22/19 13:45 13:45 13:45 WBC RBC Hgb 8.3 L Hct 24.5 L MCV MCH MCHC RDW Plt Count 56 L Lymph % (Auto) [place] % (Auto) Lymph # [place] # Seg Neutrophils % Seg Neuts % (Manual) Lymphocytes % (Manual) Monocytes % (Manual) Eosinophils % (Manual) Nucleated RBC % Seg Neutrophils # Seg Neutrophils # Man Lymphocytes # (Manual) Monocytes # (Manual) Eosinophils # (Manual) PT 21.4 H INR 1.90 H APTT 43.2 H POC ABG pH POC ABG pCO2 POC ABG pO2 Sodium Potassium Chloride Carbon Dioxide BUN Creatinine Glucose POC Glucose Lactic Acid 3.50 H* Calcium Phosphorus Magnesium Iron TIBC Ferritin Direct Bilirubin AST Total Creatine Kinase Troponin T Total Protein Albumin Prealbumin LDL Cholesterol Direct HDL Cholesterol Vitamin B12 TSH PTH Intact Urine Creatinine Urine Total Protein Vancomycin Trough Digoxin Salicylates Acetaminophen Crossmatch 03/22/19 03/23/19 03/23/19 22:20 01:06 04:50 WBC 12.1 H RBC 2.36 L Hgb 7.7 L Hct 22.9 L MCV MCH 33 H MCHC RDW Plt Count 37 L Lymph % (Auto) [place] % (Auto) Lymph # [place] # Seg Neutrophils % Seg Neuts % (Manual) 83.0 H Lymphocytes % (Manual) 8.0 L Monocytes % (Manual) Eosinophils % (Manual) Nucleated RBC % Seg Neutrophils # Seg Neutrophils # Man 10.0 H Lymphocytes # (Manual) 1.0 L Monocytes # (Manual) Eosinophils # (Manual) PT INR APTT POC ABG pH POC ABG pCO2 POC ABG pO2 Sodium Potassium Chloride Carbon Dioxide BUN Creatinine Glucose POC Glucose Lactic Acid 3.60 H* 2.70 H* Calcium Phosphorus Magnesium Iron TIBC Ferritin Direct Bilirubin AST Total Creatine Kinase Troponin T Total Protein Albumin Prealbumin LDL Cholesterol Direct HDL Cholesterol Vitamin B12 TSH PTH Intact Urine Creatinine Urine Total Protein Vancomycin Trough Digoxin Salicylates Acetaminophen Crossmatch 03/23/19 03/23/19 03/23/19 04:50 05:25 05:53 WBC RBC Hgb Hct MCV MCH MCHC RDW Plt Count Lymph % (Auto) [place] % (Auto) Lymph # [place] # Seg Neutrophils % Seg Neuts % (Manual) Lymphocytes % (Manual) Monocytes % (Manual) Eosinophils % (Manual) Nucleated RBC % Seg Neutrophils # Seg Neutrophils # Man Lymphocytes # (Manual) Monocytes # (Manual) Eosinophils # (Manual) PT INR APTT POC ABG pH POC ABG pCO2 33.3 L POC ABG pO2 Sodium Potassium 3.5 L Chloride 108.3 H Carbon Dioxide BUN Creatinine Glucose POC Glucose 68 L Lactic Acid Calcium 7.3 L Phosphorus Magnesium Iron TIBC Ferritin Direct Bilirubin AST Total Creatine Kinase Troponin T Total Protein Albumin Prealbumin LDL Cholesterol Direct HDL Cholesterol Vitamin B12 TSH PTH Intact Urine Creatinine Urine Total Protein Vancomycin Trough Digoxin Salicylates Acetaminophen Crossmatch 03/24/19 03/24/19 03/24/19 03:26 05:50 05:57 WBC RBC Hgb Hct MCV MCH MCHC RDW Plt Count Lymph % (Auto) [place] % (Auto) Lymph # [place] # Seg Neutrophils % Seg Neuts % (Manual) Lymphocytes % (Manual) Monocytes % (Manual) Eosinophils % (Manual) Nucleated RBC % Seg Neutrophils # Seg Neutrophils # Man Lymphocytes # (Manual) Monocytes # (Manual) Eosinophils # (Manual) PT INR APTT POC ABG pH POC ABG pCO2 POC ABG pO2 78 L Sodium Potassium 3.4 L Chloride 116.5 H Carbon Dioxide 21 L BUN Creatinine 0.5 L Glucose 105 H POC Glucose 127 H Lactic Acid Calcium 6.4 L Phosphorus Magnesium Iron TIBC Ferritin Direct Bilirubin AST Total Creatine Kinase Troponin T Total Protein Albumin Prealbumin LDL Cholesterol Direct HDL Cholesterol Vitamin B12 TSH PTH Intact Urine Creatinine Urine Total Protein Vancomycin Trough Digoxin Salicylates Acetaminophen Crossmatch 03/24/19 03/24/19 03/24/19 06:00 11:30 12:25 WBC 13.6 H RBC 2.08 L Hgb 6.9 L Hct 20.5 L MCV 99 H MCH 33 H MCHC RDW Plt Count 50 L Lymph % (Auto) 8.1 L [place] % (Auto) 10.0 H Lymph # 1.1 L [place] # 1.4 H Seg Neutrophils % 80.7 H Seg Neuts % (Manual) Lymphocytes % (Manual) Monocytes % (Manual) Eosinophils % (Manual) Nucleated RBC % Seg Neutrophils # 11.0 H Seg Neutrophils # Man Lymphocytes # (Manual) Monocytes # (Manual) Eosinophils # (Manual) PT INR APTT POC ABG pH POC ABG pCO2 POC ABG pO2 Sodium Potassium Chloride Carbon Dioxide BUN Creatinine Glucose POC Glucose 111 H Lactic Acid Calcium Phosphorus Magnesium Iron TIBC Ferritin Direct Bilirubin AST Total Creatine Kinase Troponin T Total Protein Albumin Prealbumin LDL Cholesterol Direct HDL Cholesterol Vitamin B12 TSH PTH Intact Urine Creatinine Urine Total Protein Vancomycin Trough Digoxin Salicylates Acetaminophen Crossmatch See Detail 03/24/19 03/25/19 03/25/19 14:25 05:20 10:00 WBC 13.4 H RBC 2.54 L Hgb 8.1 L Hct 24.3 L MCV MCH MCHC RDW 17.3 H Plt Count 44 L Lymph % (Auto) [place] % (Auto) Lymph # [place] # Seg Neutrophils % Seg Neuts % (Manual) Lymphocytes % (Manual) Monocytes % (Manual) Eosinophils % (Manual) Nucleated RBC % Seg Neutrophils # Seg Neutrophils # Man Lymphocytes # (Manual) Monocytes # (Manual) Eosinophils # (Manual) PT INR APTT POC ABG pH POC ABG pCO2 POC ABG pO2 Sodium Potassium Chloride Carbon Dioxide BUN Creatinine Glucose POC Glucose 111 H Lactic Acid Calcium Phosphorus Magnesium Iron 32 L TIBC 75 L Ferritin Direct Bilirubin AST Total Creatine Kinase Troponin T Total Protein Albumin Prealbumin LDL Cholesterol Direct HDL Cholesterol Vitamin B12 TSH PTH Intact Urine Creatinine Urine Total Protein Vancomycin Trough Digoxin Salicylates Acetaminophen Crossmatch 03/25/19 03/25/19 03/25/19 10:11 10:11 23:11 WBC RBC Hgb Hct MCV MCH MCHC RDW Plt Count Lymph % (Auto) [place] % (Auto) Lymph # [place] # Seg Neutrophils % Seg Neuts % (Manual) Lymphocytes % (Manual) Monocytes % (Manual) Eosinophils % (Manual) Nucleated RBC % Seg Neutrophils # Seg Neutrophils # Man Lymphocytes # (Manual) Monocytes # (Manual) Eosinophils # (Manual) PT INR APTT POC ABG pH POC ABG pCO2 POC ABG pO2 Sodium Potassium Chloride 112.0 H Carbon Dioxide BUN 20 H Creatinine 0.6 L Glucose POC Glucose 112 H Lactic Acid Calcium 7.2 L Phosphorus Magnesium Iron TIBC Ferritin Direct Bilirubin AST Total Creatine Kinase Troponin T Total Protein Albumin Prealbumin LDL Cholesterol Direct HDL Cholesterol Vitamin B12 > 2000 H TSH PTH Intact Urine Creatinine Urine Total Protein Vancomycin Trough Digoxin Salicylates Acetaminophen Crossmatch 03/26/19 03/26/19 03/26/19 05:00 05:00 05:16 WBC 14.4 H RBC 2.74 L Hgb 8.9 L Hct 25.7 L MCV MCH 33 H MCHC 35 H RDW 16.9 H Plt Count 60 L Lymph % (Auto) [place] % (Auto) Lymph # [place] # Seg Neutrophils % Seg Neuts % (Manual) 83.0 H Lymphocytes % (Manual) 5.0 L Monocytes % (Manual) Eosinophils % (Manual) 5.0 H Nucleated RBC % 1.0 H Seg Neutrophils # Seg Neutrophils # Man 12.0 H Lymphocytes # (Manual) 0.7 L Monocytes # (Manual) 0.9 H Eosinophils # (Manual) 0.7 H PT INR APTT POC ABG pH POC ABG pCO2 POC ABG pO2 Sodium Potassium 3.1 L Chloride 110.4 H Carbon Dioxide BUN 22 H Creatinine Glucose 101 H POC Glucose 114 H Lactic Acid Calcium 7.4 L Phosphorus Magnesium Iron TIBC Ferritin Direct Bilirubin AST Total Creatine Kinase Troponin T Total Protein Albumin Prealbumin LDL Cholesterol Direct HDL Cholesterol Vitamin B12 TSH PTH Intact Urine Creatinine Urine Total Protein Vancomycin Trough Digoxin Salicylates Acetaminophen Crossmatch 03/26/19 03/27/19 03/27/19 11:55 09:04 09:04 WBC RBC Hgb Hct MCV MCH MCHC RDW Plt Count Lymph % (Auto) [place] % (Auto) Lymph # [place] # Seg Neutrophils % Seg Neuts % (Manual) Lymphocytes % (Manual) Monocytes % (Manual) Eosinophils % (Manual) Nucleated RBC % Seg Neutrophils # Seg Neutrophils # Man Lymphocytes # (Manual) Monocytes # (Manual) Eosinophils # (Manual) PT INR APTT POC ABG pH POC ABG pCO2 POC ABG pO2 Sodium Potassium 3.2 L Chloride Carbon Dioxide BUN 22 H Creatinine Glucose POC Glucose 121 H Lactic Acid Calcium 7.7 L Phosphorus Magnesium Iron TIBC Ferritin Direct Bilirubin AST Total Creatine Kinase Troponin T Total Protein Albumin Prealbumin LDL Cholesterol Direct HDL Cholesterol Vitamin B12 TSH PTH Intact Urine Creatinine Urine Total Protein Vancomycin Trough 23.0 H Digoxin Salicylates Acetaminophen Crossmatch 03/27/19 03/27/19 03/27/19 09:04 13:31 14:04 WBC 14.8 H RBC 2.52 L Hgb 8.0 L 8.3 L Hct 24.0 L 25.3 L MCV MCH MCHC RDW 17.0 H Plt Count 89 L 91 L Lymph % (Auto) [place] % (Auto) 8.8 H Lymph # [place] # 1.3 H Seg Neutrophils % 70.7 H Seg Neuts % (Manual) Lymphocytes % (Manual) Monocytes % (Manual) Eosinophils % (Manual) Nucleated RBC % Seg Neutrophils # 10.5 H Seg Neutrophils # Man Lymphocytes # (Manual) Monocytes # (Manual) Eosinophils # (Manual) PT INR APTT POC ABG pH POC ABG pCO2 POC ABG pO2 Sodium Potassium Chloride Carbon Dioxide BUN Creatinine Glucose POC Glucose Lactic Acid Calcium Phosphorus Magnesium Iron TIBC Ferritin Direct Bilirubin 0.3 H AST Total Creatine Kinase Troponin T Total Protein 4.9 L Albumin 1.3 L Prealbumin LDL Cholesterol Direct HDL Cholesterol Vitamin B12 TSH PTH Intact Urine Creatinine Urine Total Protein Vancomycin Trough Digoxin Salicylates Acetaminophen Crossmatch 03/27/19 03/27/19 03/28/19 14:04 23:51 01:05 WBC 14.4 H RBC 2.44 L Hgb 8.0 L Hct 24.5 L MCV 100 H MCH 33 H MCHC RDW 18.5 H Plt Count 86 L Lymph % (Auto) [place] % (Auto) Lymph # [place] # Seg Neutrophils % Seg Neuts % (Manual) 84.0 H Lymphocytes % (Manual) 10.0 L Monocytes % (Manual) Eosinophils % (Manual) Nucleated RBC % Seg Neutrophils # Seg Neutrophils # Man 12.1 H Lymphocytes # (Manual) Monocytes # (Manual) Eosinophils # (Manual) PT 21.4 H INR 1.90 H APTT 42.2 H POC ABG pH POC ABG pCO2 POC ABG pO2 Sodium Potassium Chloride Carbon Dioxide BUN Creatinine Glucose POC Glucose 130 H Lactic Acid Calcium Phosphorus Magnesium Iron TIBC Ferritin Direct Bilirubin AST Total Creatine Kinase Troponin T Total Protein Albumin Prealbumin LDL Cholesterol Direct HDL Cholesterol Vitamin B12 TSH PTH Intact Urine Creatinine Urine Total Protein Vancomycin Trough Digoxin Salicylates Acetaminophen Crossmatch 03/28/19 03/28/19 03/28/19 02:51 04:45 07:31 WBC RBC Hgb Hct MCV MCH MCHC RDW Plt Count Lymph % (Auto) [place] % (Auto) Lymph # [place] # Seg Neutrophils % Seg Neuts % (Manual) Lymphocytes % (Manual) Monocytes % (Manual) Eosinophils % (Manual) Nucleated RBC % Seg Neutrophils # Seg Neutrophils # Man Lymphocytes # (Manual) Monocytes # (Manual) Eosinophils # (Manual) PT INR APTT 75.0 H* POC ABG pH POC ABG pCO2 POC ABG pO2 Sodium Potassium Chloride Carbon Dioxide BUN 22 H Creatinine Glucose POC Glucose Lactic Acid Calcium 7.8 L Phosphorus Magnesium Iron TIBC Ferritin 448.3 H Direct Bilirubin AST Total Creatine Kinase Troponin T Total Protein Albumin Prealbumin LDL Cholesterol Direct HDL Cholesterol Vitamin B12 TSH PTH Intact Urine Creatinine Urine Total Protein Vancomycin Trough Digoxin Salicylates Acetaminophen Crossmatch 03/28/19 03/29/19 03/29/19 14:30 04:40 04:40 WBC RBC 2.17 L Hgb 7.1 L Hct 20.8 L MCV MCH 33 H MCHC RDW 17.1 H Plt Count 122 L Lymph % (Auto) [place] % (Auto) Lymph # [place] # Seg Neutrophils % Seg Neuts % (Manual) Lymphocytes % (Manual) Monocytes % (Manual) Eosinophils % (Manual) Nucleated RBC % Seg Neutrophils # Seg Neutrophils # Man Lymphocytes # (Manual) Monocytes # (Manual) Eosinophils # (Manual) PT INR APTT 70.3 H* POC ABG pH POC ABG pCO2 POC ABG pO2 Sodium Potassium Chloride Carbon Dioxide 31 H BUN 22 H Creatinine 0.5 L Glucose POC Glucose Lactic Acid Calcium 8.0 L Phosphorus Magnesium Iron TIBC Ferritin Direct Bilirubin AST Total Creatine Kinase Troponin T Total Protein 5.0 L Albumin 1.4 L Prealbumin LDL Cholesterol Direct HDL Cholesterol Vitamin B12 TSH PTH Intact Urine Creatinine Urine Total Protein Vancomycin Trough Digoxin Salicylates Acetaminophen Crossmatch 03/29/19 03/29/19 03/29/19 04:40 04:40 11:50 WBC RBC Hgb Hct MCV MCH MCHC RDW Plt Count Lymph % (Auto) [place] % (Auto) Lymph # [place] # Seg Neutrophils % Seg Neuts % (Manual) Lymphocytes % (Manual) Monocytes % (Manual) Eosinophils % (Manual) Nucleated RBC % Seg Neutrophils # Seg Neutrophils # Man Lymphocytes # (Manual) Monocytes # (Manual) Eosinophils # (Manual) PT INR APTT 71.8 H* POC ABG pH POC ABG pCO2 POC ABG pO2 Sodium Potassium Chloride Carbon Dioxide BUN Creatinine Glucose POC Glucose 118 H Lactic Acid Calcium Phosphorus Magnesium Iron TIBC Ferritin Direct Bilirubin AST Total Creatine Kinase Troponin T Total Protein Albumin Prealbumin LDL Cholesterol Direct HDL Cholesterol Vitamin B12 TSH PTH Intact Urine Creatinine Urine Total Protein Vancomycin Trough Digoxin 3.5 H* Salicylates Acetaminophen Crossmatch 03/29/19 03/29/19 03/29/19 16:20 16:20 21:10 WBC RBC Hgb Hct MCV MCH MCHC RDW Plt Count Lymph % (Auto) [place] % (Auto) Lymph # [place] # Seg Neutrophils % Seg Neuts % (Manual) Lymphocytes % (Manual) Monocytes % (Manual) Eosinophils % (Manual) Nucleated RBC % Seg Neutrophils # Seg Neutrophils # Man Lymphocytes # (Manual) Monocytes # (Manual) Eosinophils # (Manual) PT INR APTT 61.5 H* 112.6 H* POC ABG pH POC ABG pCO2 POC ABG pO2 Sodium Potassium Chloride Carbon Dioxide BUN Creatinine Glucose POC Glucose Lactic Acid Calcium Phosphorus Magnesium Iron TIBC Ferritin Direct Bilirubin AST Total Creatine Kinase Troponin T Total Protein Albumin Prealbumin LDL Cholesterol Direct HDL Cholesterol Vitamin B12 TSH PTH Intact Urine Creatinine Urine Total Protein Vancomycin Trough Digoxin 2.6 H* Salicylates Acetaminophen Crossmatch 03/29/19 03/30/19 03/30/19 22:30 04:42 04:42 WBC RBC Hgb 6.4 L Hct 18.9 L* MCV MCH MCHC RDW Plt Count Lymph % (Auto) [place] % (Auto) Lymph # [place] # Seg Neutrophils % Seg Neuts % (Manual) Lymphocytes % (Manual) Monocytes % (Manual) Eosinophils % (Manual) Nucleated RBC % Seg Neutrophils # Seg Neutrophils # Man Lymphocytes # (Manual) Monocytes # (Manual) Eosinophils # (Manual) PT INR APTT 103.8 H* POC ABG pH POC ABG pCO2 POC ABG pO2 Sodium Potassium Chloride Carbon Dioxide BUN Creatinine Glucose POC Glucose Lactic Acid Calcium Phosphorus Magnesium Iron TIBC Ferritin Direct Bilirubin AST Total Creatine Kinase Troponin T Total Protein Albumin Prealbumin LDL Cholesterol Direct HDL Cholesterol Vitamin B12 TSH PTH Intact Urine Creatinine Urine Total Protein Vancomycin Trough Digoxin 2.6 H* Salicylates Acetaminophen Crossmatch 03/30/19 03/30/19 03/30/19 07:04 07:58 11:15 WBC RBC 2.66 L Hgb 8.5 L Hct 25.3 L D MCV MCH MCHC RDW 17.4 H Plt Count Lymph % (Auto) [place] % (Auto) Lymph # [place] # Seg Neutrophils % Seg Neuts % (Manual) Lymphocytes % (Manual) Monocytes % (Manual) Eosinophils % (Manual) Nucleated RBC % Seg Neutrophils # Seg Neutrophils # Man Lymphocytes # (Manual) Monocytes # (Manual) Eosinophils # (Manual) PT INR APTT 50.5 H POC ABG pH POC ABG pCO2 POC ABG pO2 Sodium Potassium Chloride Carbon Dioxide BUN Creatinine Glucose POC Glucose Lactic Acid Calcium Phosphorus Magnesium Iron TIBC Ferritin Direct Bilirubin AST Total Creatine Kinase Troponin T Total Protein Albumin Prealbumin LDL Cholesterol Direct HDL Cholesterol Vitamin B12 TSH PTH Intact Urine Creatinine Urine Total Protein Vancomycin Trough Digoxin Salicylates Acetaminophen Crossmatch See Detail 03/30/19 03/30/19 03/30/19 11:36 17:40 22:51 WBC RBC 2.48 L Hgb 7.9 L Hct 23.9 L MCV MCH MCHC RDW 17.7 H Plt Count Lymph % (Auto) [place] % (Auto) Lymph # [place] # Seg Neutrophils % Seg Neuts % (Manual) Lymphocytes % (Manual) Monocytes % (Manual) Eosinophils % (Manual) Nucleated RBC % Seg Neutrophils # Seg Neutrophils # Man Lymphocytes # (Manual) Monocytes # (Manual) Eosinophils # (Manual) PT INR APTT POC ABG pH POC ABG pCO2 POC ABG pO2 Sodium Potassium Chloride Carbon Dioxide BUN Creatinine Glucose POC Glucose 129 H 112 H Lactic Acid Calcium Phosphorus Magnesium Iron TIBC Ferritin Direct Bilirubin AST Total Creatine Kinase Troponin T Total Protein Albumin Prealbumin LDL Cholesterol Direct HDL Cholesterol Vitamin B12 TSH PTH Intact Urine Creatinine Urine Total Protein Vancomycin Trough Digoxin Salicylates Acetaminophen Crossmatch 03/30/19 03/31/19 03/31/19 23:47 05:00 11:35 WBC RBC Hgb 8.0 L Hct 23.7 L MCV MCH MCHC RDW Plt Count Lymph % (Auto) [place] % (Auto) Lymph # [place] # Seg Neutrophils % Seg Neuts % (Manual) Lymphocytes % (Manual) Monocytes % (Manual) Eosinophils % (Manual) Nucleated RBC % Seg Neutrophils # Seg Neutrophils # Man Lymphocytes # (Manual) Monocytes # (Manual) Eosinophils # (Manual) PT INR APTT POC ABG pH POC ABG pCO2 POC ABG pO2 Sodium Potassium Chloride Carbon Dioxide BUN Creatinine Glucose POC Glucose 112 H 106 H Lactic Acid Calcium Phosphorus Magnesium Iron TIBC Ferritin Direct Bilirubin AST Total Creatine Kinase Troponin T Total Protein Albumin Prealbumin LDL Cholesterol Direct HDL Cholesterol Vitamin B12 TSH PTH Intact Urine Creatinine Urine Total Protein Vancomycin Trough Digoxin Salicylates Acetaminophen Crossmatch
[2019-04-01] MEDS: TYLENOL FEEDTUBE PRN (12:25)
[2019-04-02] MEDS: DUONEB *Not for PRN Use IH SCH ×4 (02:24→21:06)
[2019-04-02] MEDS: PULMICORT IH SCH ×2 (08:08→21:06)
[2019-04-02 08:58] LABS: Hematocrit 23.1 % (30.3-42.9); Hemoglobin 7.8 gm/dl (10.1-14.3)
[2019-04-02] MEDS: BABY ASPIRIN PO SCH (10:08)
[2019-04-02] MEDS: PEPCID PO SCH ×2 (10:08→22:17)
[2019-04-02] MEDS: CORDARONE PO SCH ×2 (10:08→22:16)
[2019-04-02] MEDS: SODIUM CHLORIDE FLUSH SYRINGE 10 ML IV SCH ×2 (10:09→22:17)
[2019-04-02] MEDS: VANCOMYCIN 1,250 MG in NACL 0.9% 250ML 250 ML IV SCH (10:13)
[2019-04-02] MEDS: HumaLOG SUB-Q SCH ×2 (13:00→18:58)
--- NOTE | 2019-04-02 13:22 | Progress Note ---
Assessment and Plan 73 y/o female found unresponsive now intubated and septic, etiology thought secondary to pneumonia with anemia and thrombocytopenia, and persistent fevers found to have multiple DVT's. No new recommendations. Please see below. 1. Continue supportive ventilator therapy. 2. Continue IV abx therapy as per ID. Agree with adding Gram positive coverage with Vanc 3. Long discussion with daughter Caterina over the phone (03/29). Will attempt to meet with her tomorrow to discuss medical terminologist goals of care. Patient was on home hospice not for a terminal illness (seizures) but the daughter needed more help which she could not get from any other services. The patient has essentially been bed bound for the last several years but this is the sickest she has been since the strokes. 4. Family now looking at inpatient hospice facilities. Case Management is aware. Will transition to there once family decides on a place. Continue suppo rtive measures until then. CCT 31 minutes. Subjective Date of service: 04/02/19 Principal diagnosis: low plt - DVT Interval history: No acute events. Awaiting family decision about inpatient hospice. Objective Vital Signs - 12hr 04/02/19 04/02/19 04/02/19 02:00 02:24 03:00 Temperature Pulse Rate 110 H 114 H Pulse Rate [ 119 H Anterior Bilateral Throughout] Pulse Rate [ From Monitor] Respiratory 13 14 Rate Respiratory 20 Rate [Anterior Bilateral Throughout] Blood Pressure 123/56 103/39 O2 Sat by Pulse 95 94 Oximetry 04/02/19 04/02/19 04/02/19 03:30 03:35 04:00 Temperature 102.6 F H Pulse Rate 110 H 112 H Pulse Rate [ Anterior Bilateral Throughout] Pulse Rate [ From Monitor] Respiratory 19 Rate Respiratory Rate [Anterior Bilateral Throughout] Blood Pressure 112/46 111/52 O2 Sat by Pulse 99 95 Oximetry 04/02/19 04/02/19 04/02/19 04:09 04:15 05:00 Temperature Pulse Rate 115 H 108 H Pulse Rate [ Anterior Bilateral Throughout] Pulse Rate [ 115 H From Monitor] Respiratory 22 24 Rate Respiratory Rate [Anterior Bilateral Throughout] Blood Pressure 123/57 O2 Sat by Pulse 98 95 Oximetry 04/02/19 04/02/19 04/02/19 06:00 07:00 08:00 Temperature 98.3 F Pulse Rate 107 H 112 H 113 H Pulse Rate [ Anterior Bilateral Throughout] Pulse Rate [ From Monitor] Respiratory 12 12 15 Rate Respiratory Rate [Anterior Bilateral Throughout] Blood Pressure 104/44 111/44 109/44 O2 Sat by Pulse 96 94 93 Oximetry 04/02/19 04/02/19 04/02/19 08:09 09:00 10:00 Temperature Pulse Rate 109 H 118 H 119 H Pulse Rate [ 112 H Anterior Bilateral Throughout] Pulse Rate [ From Monitor] Respiratory 14 23 Rate Respiratory 16 Rate [Anterior Bilateral Throughout] Blood Pressure 109/44 119/52 131/57 O2 Sat by Pulse 96 96 94 Oximetry 04/02/19 12:00 Temperature 99.8 F H Pulse Rate Pulse Rate [ Anterior Bilateral Throughout] Pulse Rate [ From Monitor] Respiratory Rate Respiratory Rate [Anterior Bilateral Throughout] Blood Pressure O2 Sat by Pulse Oximetry Constitutional: lethargic, other (intubated on vent responds to name. follows commands) Eyes: non-icteric ENT: other (intubated ) Neck: supple Effort: mildly labored, other (poor efforts ) Ascultation: Bilateral: diminished breath sounds (grossly clear ), rales (coarse bilat ) Percussion: Bilateral: not dull, dull Cardiovascular: other (tachy AF ) Gastrointestinal: hypoactive bowel sounds Integumentary: normal Extremities: anasarca Neurologic: unable to assess CBC and BMP: 04/02/19 08:33 03/29/19 04:40 ABG, PT/INR, D-dimer: ABG POC ABG pH 7.411 (7.35-7.45) 03/25/19 05:40 POC ABG pO2 83 (80-105) 03/25/19 05:40 POC ABG HCO3 17.7 (22-26 mml/L) 03/25/19 05:40 POC ABG Total CO2 19 (23-27mmol/L) 03/25/19 05:40 POC ABG O2 Sat 97 03/25/19 05:40 PT/INR, D-dimer PT 21.4 Sec. (12.2-14.9) H 03/27/19 14:04 INR 1.90 (0.87-1.13) H 03/27/19 14:04 Abnormal lab findings: Abnormal Labs 03/19/19 03/19/19 03/19/19 12:59 12:59 12:59 WBC RBC 3.44 L Hgb Hct MCV 101 H MCH 34 H MCHC RDW Plt Count 98 L Lymph % (Auto) Branch % (Auto) Lymph # Branch # Seg Neutrophils % Seg Neuts % (Manual) 11.0 L Lymphocytes % (Manual) Monocytes % (Manual) 10.0 H Eosinophils % (Manual) Nucleated RBC % 1.0 H Seg Neutrophils # Seg Neutrophils # Man 0.6 L Lymphocytes # (Manual) Monocytes # (Manual) Eosinophils # (Manual) PT INR APTT POC ABG pH POC ABG pCO2 POC ABG pO2 Sodium 149 H Potassium Chloride 109.4 H Carbon Dioxide BUN 51 H Creatinine 3.2 H Glucose 58 L POC Glucose Lactic Acid 7.60 H* Calcium 7.8 L Phosphorus Magnesium 1.60 L Iron TIBC Ferritin Direct Bilirubin AST 75 H Total Creatine Kinase 1499 H Troponin T 0.109 H* Total Protein 5.2 L Albumin 1.7 L Prealbumin LDL Cholesterol Direct 22 L HDL Cholesterol 31 L Vitamin B12 TSH PTH Intact Urine Creatinine Urine Total Protein Vancomycin Trough Digoxin Salicylates Acetaminophen Crossmatch 03/19/19 03/19/19 03/19/19 12:59 12:59 14:48 WBC RBC Hgb Hct MCV MCH MCHC RDW Plt Count Lymph % (Auto) Branch % (Auto) Lymph # Branch # Seg Neutrophils % Seg Neuts % (Manual) Lymphocytes % (Manual) Monocytes % (Manual) Eosinophils % (Manual) Nucleated RBC % Seg Neutrophils # Seg Neutrophils # Man Lymphocytes # (Manual) Monocytes # (Manual) Eosinophils # (Manual) PT INR APTT POC ABG pH POC ABG pCO2 POC ABG pO2 Sodium Potassium Chloride Carbon Dioxide BUN Creatinine Glucose POC Glucose 44 L Lactic Acid Calcium Phosphorus Magnesium Iron TIBC Ferritin Direct Bilirubin AST Total Creatine Kinase Troponin T Total Protein Albumin Prealbumin LDL Cholesterol Direct HDL Cholesterol Vitamin B12 TSH PTH Intact Urine Creatinine Urine Total Protein Vancomycin Trough Digoxin Salicylates < 0.3 L Acetaminophen < 5.0 L Crossmatch 03/19/19 03/19/19 03/19/19 15:33 15:52 16:26 WBC RBC Hgb Hct MCV MCH MCHC RDW Plt Count Lymph % (Auto) Branch % (Auto) Lymph # Branch # Seg Neutrophils % Seg Neuts % (Manual) Lymphocytes % (Manual) Monocytes % (Manual) Eosinophils % (Manual) Nucleated RBC % Seg Neutrophils # Seg Neutrophils # Man Lymphocytes # (Manual) Monocytes # (Manual) Eosinophils # (Manual) PT INR APTT POC ABG pH POC ABG pCO2 POC ABG pO2 Sodium Potassium Chloride Carbon Dioxide BUN Creatinine Glucose POC Glucose 228 H 231 H Lactic Acid Calcium Phosphorus Magnesium Iron TIBC Ferritin Direct Bilirubin AST Total Creatine Kinase Troponin T Total Protein Albumin Prealbumin LDL Cholesterol Direct HDL Cholesterol Vitamin B12 TSH PTH Intact Urine Creatinine 31.8 H Urine Total Protein Vancomycin Trough Digoxin Salicylates Acetaminophen Crossmatch 03/19/19 03/19/19 03/19/19 16:38 17:14 18:43 WBC RBC Hgb Hct MCV MCH MCHC RDW Plt Count Lymph % (Auto) Branch % (Auto) Lymph # Branch # Seg Neutrophils % Seg Neuts % (Manual) Lymphocytes % (Manual) Monocytes % (Manual) Eosinophils % (Manual) Nucleated RBC % Seg Neutrophils # Seg Neutrophils # Man Lymphocytes # (Manual) Monocytes # (Manual) Eosinophils # (Manual) PT INR APTT POC ABG pH 7.196 L POC ABG pCO2 30.8 L POC ABG pO2 Sodium Potassium Chloride Carbon Dioxide BUN Creatinine Glucose POC Glucose 235 H Lactic Acid 8.10 H* Calcium Phosphorus Magnesium Iron TIBC Ferritin Direct Bilirubin AST Total Creatine Kinase Troponin T Total Protein Albumin Prealbumin LDL Cholesterol Direct HDL Cholesterol Vitamin B12 TSH PTH Intact Urine Creatinine Urine Total Protein Vancomycin Trough Digoxin Salicylates Acetaminophen Crossmatch 03/19/19 03/19/19 03/19/19 18:52 20:00 20:56 WBC RBC Hgb Hct MCV MCH MCHC RDW Plt Count Lymph % (Auto) Branch % (Auto) Lymph # Branch # Seg Neutrophils % Seg Neuts % (Manual) Lymphocytes % (Manual) Monocytes % (Manual) Eosinophils % (Manual) Nucleated RBC % Seg Neutrophils # Seg Neutrophils # Man Lymphocytes # (Manual) Monocytes # (Manual) Eosinophils # (Manual) PT INR APTT POC ABG pH POC ABG pCO2 POC ABG pO2 Sodium Potassium Chloride Carbon Dioxide BUN Creatinine Glucose POC Glucose 240 H 117 H Lactic Acid 5.90 H* Calcium Phosphorus Magnesium Iron TIBC Ferritin Direct Bilirubin AST Total Creatine Kinase Troponin T Total Protein Albumin Prealbumin LDL Cholesterol Direct HDL Cholesterol Vitamin B12 TSH PTH Intact Urine Creatinine Urine Total Protein Vancomycin Trough Digoxin Salicylates Acetaminophen Crossmatch 03/19/19 03/19/19 03/19/19 21:19 22:07 23:00 WBC RBC Hgb Hct MCV MCH MCHC RDW Plt Count Lymph % (Auto) Branch % (Auto) Lymph # Branch # Seg Neutrophils % Seg Neuts % (Manual) Lymphocytes % (Manual) Monocytes % (Manual) Eosinophils % (Manual) Nucleated RBC % Seg Neutrophils # Seg Neutrophils # Man Lymphocytes # (Manual) Monocytes # (Manual) Eosinophils # (Manual) PT INR APTT POC ABG pH POC ABG pCO2 POC ABG pO2 Sodium Potassium Chloride Carbon Dioxide BUN Creatinine Glucose POC Glucose < 40 L 136 H Lactic Acid 6.10 H* Calcium Phosphorus Magnesium Iron TIBC Ferritin Direct Bilirubin AST Total Creatine Kinase Troponin T Total Protein Albumin Prealbumin LDL Cholesterol Direct HDL Cholesterol Vitamin B12 TSH PTH Intact Urine Creatinine Urine Total Protein Vancomycin Trough Digoxin Salicylates Acetaminophen Crossmatch 03/20/19 03/20/19 03/20/19 00:05 01:38 02:23 WBC RBC Hgb Hct MCV MCH MCHC RDW Plt Count Lymph % (Auto) Branch % (Auto) Lymph # Branch # Seg Neutrophils % Seg Neuts % (Manual) Lymphocytes % (Manual) Monocytes % (Manual) Eosinophils % (Manual) Nucleated RBC % Seg Neutrophils # Seg Neutrophils # Man Lymphocytes # (Manual) Monocytes # (Manual) Eosinophils # (Manual) PT INR APTT POC ABG pH POC ABG pCO2 POC ABG pO2 Sodium Potassium Chloride Carbon Dioxide BUN Creatinine Glucose POC Glucose 68 L 153 H 127 H Lactic Acid Calcium Phosphorus Magnesium Iron TIBC Ferritin Direct Bilirubin AST Total Creatine Kinase Troponin T Total Protein Albumin Prealbumin LDL Cholesterol Direct HDL Cholesterol Vitamin B12 TSH PTH Intact Urine Creatinine Urine Total Protein Vancomycin Trough Digoxin Salicylates Acetaminophen Crossmatch 03/20/19 03/20/19 03/20/19 03:12 04:31 04:41 WBC RBC Hgb Hct MCV MCH MCHC RDW Plt Count Lymph % (Auto) Branch % (Auto) Lymph # Branch # Seg Neutrophils % Seg Neuts % (Manual) Lymphocytes % (Manual) Monocytes % (Manual) Eosinophils % (Manual) Nucleated RBC % Seg Neutrophils # Seg Neutrophils # Man Lymphocytes # (Manual) Monocytes # (Manual) Eosinophils # (Manual) PT INR APTT POC ABG pH POC ABG pCO2 POC ABG pO2 53 L 65 L Sodium Potassium Chloride Carbon Dioxide BUN Creatinine Glucose POC Glucose 109 H Lactic Acid Calcium Phosphorus Magnesium Iron TIBC Ferritin Direct Bilirubin AST Total Creatine Kinase Troponin T Total Protein Albumin Prealbumin LDL Cholesterol Direct HDL Cholesterol Vitamin B12 TSH PTH Intact Urine Creatinine Urine Total Protein Vancomycin Trough Digoxin Salicylates Acetaminophen Crossmatch 03/20/19 03/20/19 03/20/19 05:50 07:29 08:14 WBC RBC Hgb Hct MCV MCH MCHC RDW Plt Count Lymph % (Auto) Branch % (Auto) Lymph # Branch # Seg Neutrophils % Seg Neuts % (Manual) Lymphocytes % (Manual) Monocytes % (Manual) Eosinophils % (Manual) Nucleated RBC % Seg Neutrophils # Seg Neutrophils # Man Lymphocytes # (Manual) Monocytes # (Manual) Eosinophils # (Manual) PT INR APTT POC ABG pH POC ABG pCO2 POC ABG pO2 Sodium Potassium Chloride Carbon Dioxide BUN Creatinine Glucose 61 L POC Glucose 47 L 153 H Lactic Acid Calcium Phosphorus Magnesium 1.60 L Iron TIBC Ferritin Direct Bilirubin AST Total Creatine Kinase Troponin T Total Protein Albumin Prealbumin LDL Cholesterol Direct HDL Cholesterol Vitamin B12 TSH PTH Intact Urine Creatinine Urine Total Protein Vancomycin Trough Digoxin Salicylates Acetaminophen Crossmatch 03/20/19 03/20/19 03/20/19 08:23 08:23 10:59 WBC RBC Hgb Hct MCV MCH MCHC RDW Plt Count Lymph % (Auto) Branch % (Auto) Lymph # Branch # Seg Neutrophils % Seg Neuts % (Manual) Lymphocytes % (Manual) Monocytes % (Manual) Eosinophils % (Manual) Nucleated RBC % Seg Neutrophils # Seg Neutrophils # Man Lymphocytes # (Manual) Monocytes # (Manual) Eosinophils # (Manual) PT INR APTT POC ABG pH POC ABG pCO2 POC ABG pO2 Sodium Potassium Chloride Carbon Dioxide BUN Creatinine Glucose 101 H POC Glucose 233 H Lactic Acid 9.70 H* Calcium Phosphorus Magnesium Iron TIBC Ferritin Direct Bilirubin AST Total Creatine Kinase Troponin T Total Protein Albumin Prealbumin 0.052 L LDL Cholesterol Direct HDL Cholesterol Vitamin B12 TSH PTH Intact Urine Creatinine Urine Total Protein Vancomycin Trough Digoxin Salicylates Acetaminophen Crossmatch 03/20/19 03/20/19 03/20/19 12:23 16:10 16:40 WBC RBC Hgb Hct MCV MCH MCHC RDW Plt Count Lymph % (Auto) Branch % (Auto) Lymph # Branch # Seg Neutrophils % Seg Neuts % (Manual) Lymphocytes % (Manual) Monocytes % (Manual) Eosinophils % (Manual) Nucleated RBC % Seg Neutrophils # Seg Neutrophils # Man Lymphocytes # (Manual) Monocytes # (Manual) Eosinophils # (Manual) PT INR APTT POC ABG pH POC ABG pCO2 POC ABG pO2 Sodium Potassium Chloride Carbon Dioxide BUN Creatinine Glucose POC Glucose 135 H 171 H Lactic Acid Calcium Phosphorus Magnesium Iron TIBC Ferritin Direct Bilirubin AST Total Creatine Kinase Troponin T Total Protein Albumin Prealbumin LDL Cholesterol Direct HDL Cholesterol Vitamin B12 TSH PTH Intact Urine Creatinine 53.7 H Urine Total Protein 36 H Vancomycin Trough Digoxin Salicylates Acetaminophen Crossmatch 03/20/19 03/20/19 03/20/19 16:57 17:38 17:50 WBC RBC Hgb Hct MCV MCH MCHC RDW Plt Count Lymph % (Auto) Branch % (Auto) Lymph # Branch # Seg Neutrophils % Seg Neuts % (Manual) Lymphocytes % (Manual) Monocytes % (Manual) Eosinophils % (Manual) Nucleated RBC % Seg Neutrophils # Seg Neutrophils # Man Lymphocytes # (Manual) Monocytes # (Manual) Eosinophils # (Manual) PT INR APTT POC ABG pH POC ABG pCO2 POC ABG pO2 Sodium Potassium Chloride Carbon Dioxide BUN Creatinine Glucose POC Glucose 152 H 147 H Lactic Acid 9.90 H* Calcium Phosphorus Magnesium Iron TIBC Ferritin Direct Bilirubin AST Total Creatine Kinase Troponin T Total Protein Albumin Prealbumin LDL Cholesterol Direct HDL Cholesterol Vitamin B12 TSH PTH Intact Urine Creatinine Urine Total Protein Vancomycin Trough Digoxin Salicylates Acetaminophen Crossmatch 03/20/19 03/20/19 03/20/19 17:50 17:50 17:50 WBC RBC 2.92 L Hgb 10.0 L Hct 29.3 L MCV 100 H MCH 34 H MCHC RDW Plt Count 81 L Lymph % (Auto) Branch % (Auto) Lymph # Branch # Seg Neutrophils % Seg Neuts % (Manual) Lymphocytes % (Manual) Monocytes % (Manual) Eosinophils % (Manual) Nucleated RBC % Seg Neutrophils # Seg Neutrophils # Man Lymphocytes # (Manual) Monocytes # (Manual) Eosinophils # (Manual) PT INR APTT POC ABG pH POC ABG pCO2 POC ABG pO2 Sodium Potassium 2.8 L* D Chloride Carbon Dioxide BUN 30 H Creatinine 1.6 H Glucose 107 H POC Glucose Lactic Acid Calcium 6.9 L Phosphorus 2.00 L Magnesium Iron TIBC Ferritin Direct Bilirubin AST Total Creatine Kinase Troponin T Total Protein Albumin Prealbumin LDL Cholesterol Direct HDL Cholesterol Vitamin B12 TSH PTH Intact 171.6 H Urine Creatinine Urine Total Protein Vancomycin Trough Digoxin Salicylates Acetaminophen Crossmatch 03/20/19 03/21/19 03/21/19 21:12 00:30 04:12 WBC RBC Hgb Hct MCV MCH MCHC RDW Plt Count Lymph % (Auto) Branch % (Auto) Lymph # Branch # Seg Neutrophils % Seg Neuts % (Manual) Lymphocytes % (Manual) Monocytes % (Manual) Eosinophils % (Manual) Nucleated RBC % Seg Neutrophils # Seg Neutrophils # Man Lymphocytes # (Manual) Monocytes # (Manual) Eosinophils # (Manual) PT INR APTT POC ABG pH POC ABG pCO2 POC ABG pO2 Sodium Potassium 3.0 L Chloride Carbon Dioxide 21 L BUN Creatinine 1.4 H Glucose 103 H POC Glucose Lactic Acid 8.70 H* 9.40 H* Calcium 6.8 L Phosphorus Magnesium Iron TIBC Ferritin Direct Bilirubin AST Total Creatine Kinase Troponin T Total Protein Albumin Prealbumin LDL Cholesterol Direct HDL Cholesterol Vitamin B12 TSH PTH Intact Urine Creatinine Urine Total Protein Vancomycin Trough Digoxin Salicylates Acetaminophen Crossmatch 03/21/19 03/21/19 03/21/19 04:12 04:12 04:43 WBC RBC 2.84 L Hgb 9.5 L Hct 28.3 L MCV 100 H MCH 33 H MCHC RDW Plt Count 79 L Lymph % (Auto) Branch % (Auto) Lymph # Branch # Seg Neutrophils % Seg Neuts % (Manual) Lymphocytes % (Manual) Monocytes % (Manual) Eosinophils % (Manual) Nucleated RBC % Seg Neutrophils # Seg Neutrophils # Man Lymphocytes # (Manual) Monocytes # (Manual) Eosinophils # (Manual) PT INR APTT POC ABG pH 7.456 H POC ABG pCO2 POC ABG pO2 Sodium Potassium Chloride Carbon Dioxide BUN Creatinine Glucose POC Glucose Lactic Acid 9.50 H* Calcium Phosphorus Magnesium Iron TIBC Ferritin Direct Bilirubin AST Total Creatine Kinase Troponin T Total Protein Albumin Prealbumin LDL Cholesterol Direct HDL Cholesterol Vitamin B12 TSH PTH Intact Urine Creatinine Urine Total Protein Vancomycin Trough Digoxin Salicylates Acetaminophen Crossmatch 03/21/19 03/21/19 03/21/19 08:06 08:08 10:11 WBC RBC Hgb Hct MCV MCH MCHC RDW Plt Count Lymph % (Auto) Branch % (Auto) Lymph # Branch # Seg Neutrophils % Seg Neuts % (Manual) Lymphocytes % (Manual) Monocytes % (Manual) Eosinophils % (Manual) Nucleated RBC % Seg Neutrophils # Seg Neutrophils # Man Lymphocytes # (Manual) Monocytes # (Manual) Eosinophils # (Manual) PT INR APTT POC ABG pH POC ABG pCO2 POC ABG pO2 Sodium Potassium 3.5 L Chloride Carbon Dioxide BUN 22 H Creatinine 1.3 H Glucose POC Glucose 64 L Lactic Acid 8.00 H* Calcium 7.0 L Phosphorus Magnesium Iron TIBC Ferritin Direct Bilirubin AST Total Creatine Kinase Troponin T Total Protein Albumin Prealbumin LDL Cholesterol Direct HDL Cholesterol Vitamin B12 TSH PTH Intact Urine Creatinine Urine Total Protein Vancomycin Trough Digoxin Salicylates Acetaminophen Crossmatch 03/21/19 03/21/19 03/21/19 11:17 12:17 13:37 WBC RBC Hgb Hct MCV MCH MCHC RDW Plt Count Lymph % (Auto) Branch % (Auto) Lymph # Branch # Seg Neutrophils % Seg Neuts % (Manual) Lymphocytes % (Manual) Monocytes % (Manual) Eosinophils % (Manual) Nucleated RBC % Seg Neutrophils # Seg Neutrophils # Man Lymphocytes # (Manual) Monocytes # (Manual) Eosinophils # (Manual) PT INR APTT POC ABG pH POC ABG pCO2 POC ABG pO2 Sodium Potassium Chloride Carbon Dioxide BUN Creatinine Glucose POC Glucose 173 H 110 H Lactic Acid Calcium Phosphorus Magnesium Iron TIBC Ferritin Direct Bilirubin AST Total Creatine Kinase Troponin T 0.033 H D Total Protein Albumin Prealbumin LDL Cholesterol Direct HDL Cholesterol Vitamin B12 TSH PTH Intact Urine Creatinine Urine Total Protein Vancomycin Trough Digoxin Salicylates Acetaminophen Crossmatch 03/21/19 03/21/19 03/21/19 13:37 17:21 18:52 WBC RBC Hgb Hct MCV MCH MCHC RDW Plt Count Lymph % (Auto) Branch % (Auto) Lymph # Branch # Seg Neutrophils % Seg Neuts % (Manual) Lymphocytes % (Manual) Monocytes % (Manual) Eosinophils % (Manual) Nucleated RBC % Seg Neutrophils # Seg Neutrophils # Man Lymphocytes # (Manual) Monocytes # (Manual) Eosinophils # (Manual) PT INR APTT POC ABG pH POC ABG pCO2 POC ABG pO2 Sodium Potassium Chloride Carbon Dioxide BUN Creatinine Glucose POC Glucose 130 H 107 H Lactic Acid 6.80 H* Calcium Phosphorus Magnesium Iron TIBC Ferritin Direct Bilirubin AST Total Creatine Kinase Troponin T Total Protein Albumin Prealbumin LDL Cholesterol Direct HDL Cholesterol Vitamin B12 TSH PTH Intact Urine Creatinine Urine Total Protein Vancomycin Trough Digoxin Salicylates Acetaminophen Crossmatch 03/21/19 03/21/19 03/21/19 20:20 22:08 23:05 WBC RBC Hgb Hct MCV MCH MCHC RDW Plt Count Lymph % (Auto) Branch % (Auto) Lymph # Branch # Seg Neutrophils % Seg Neuts % (Manual) Lymphocytes % (Manual) Monocytes % (Manual) Eosinophils % (Manual) Nucleated RBC % Seg Neutrophils # Seg Neutrophils # Man Lymphocytes # (Manual) Monocytes # (Manual) Eosinophils # (Manual) PT INR APTT POC ABG pH POC ABG pCO2 POC ABG pO2 Sodium Potassium Chloride Carbon Dioxide BUN Creatinine Glucose POC Glucose 106 H 106 H Lactic Acid Calcium Phosphorus Magnesium Iron TIBC Ferritin Direct Bilirubin AST Total Creatine Kinase Troponin T 0.036 H Total Protein Albumin Prealbumin LDL Cholesterol Direct HDL Cholesterol Vitamin B12 TSH PTH Intact Urine Creatinine Urine Total Protein Vancomycin Trough Digoxin Salicylates Acetaminophen Crossmatch 03/21/19 03/21/19 03/22/19 23:05 23:05 00:14 WBC RBC Hgb Hct MCV MCH MCHC RDW Plt Count Lymph % (Auto) Branch % (Auto) Lymph # Branch # Seg Neutrophils % Seg Neuts % (Manual) Lymphocytes % (Manual) Monocytes % (Manual) Eosinophils % (Manual) Nucleated RBC % Seg Neutrophils # Seg Neutrophils # Man Lymphocytes # (Manual) Monocytes # (Manual) Eosinophils # (Manual) PT INR APTT POC ABG pH POC ABG pCO2 POC ABG pO2 Sodium Potassium Chloride Carbon Dioxide BUN Creatinine Glucose POC Glucose 122 H 109 H Lactic Acid 7.00 H* Calcium Phosphorus Magnesium Iron TIBC Ferritin Direct Bilirubin AST Total Creatine Kinase Troponin T Total Protein Albumin Prealbumin LDL Cholesterol Direct HDL Cholesterol Vitamin B12 TSH PTH Intact Urine Creatinine Urine Total Protein Vancomycin Trough Digoxin Salicylates Acetaminophen Crossmatch 03/22/19 03/22/19 03/22/19 03:10 04:02 05:11 WBC RBC Hgb Hct MCV MCH MCHC RDW Plt Count Lymph % (Auto) Branch % (Auto) Lymph # Branch # Seg Neutrophils % Seg Neuts % (Manual) Lymphocytes % (Manual) Monocytes % (Manual) Eosinophils % (Manual) Nucleated RBC % Seg Neutrophils # Seg Neutrophils # Man Lymphocytes # (Manual) Monocytes # (Manual) Eosinophils # (Manual) PT INR APTT POC ABG pH 7.487 H POC ABG pCO2 POC ABG pO2 67 L Sodium Potassium Chloride Carbon Dioxide BUN Creatinine Glucose POC Glucose 114 H 112 H Lactic Acid Calcium Phosphorus Magnesium Iron TIBC Ferritin Direct Bilirubin AST Total Creatine Kinase Troponin T Total Protein Albumin Prealbumin LDL Cholesterol Direct HDL Cholesterol Vitamin B12 TSH PTH Intact Urine Creatinine Urine Total Protein Vancomycin Trough Digoxin Salicylates Acetaminophen Crossmatch 03/22/19 03/22/19 03/22/19 06:06 06:10 06:10 WBC RBC Hgb Hct MCV MCH MCHC RDW Plt Count Lymph % (Auto) Branch % (Auto) Lymph # Branch # Seg Neutrophils % Seg Neuts % (Manual) Lymphocytes % (Manual) Monocytes % (Manual) Eosinophils % (Manual) Nucleated RBC % Seg Neutrophils # Seg Neutrophils # Man Lymphocytes # (Manual) Monocytes # (Manual) Eosinophils # (Manual) PT INR APTT POC ABG pH POC ABG pCO2 POC ABG pO2 Sodium Potassium 3.0 L Chloride Carbon Dioxide BUN Creatinine Glucose POC Glucose 115 H Lactic Acid Calcium 7.0 L Phosphorus Magnesium Iron TIBC Ferritin Direct Bilirubin AST Total Creatine Kinase Troponin T 0.036 H Total Protein Albumin Prealbumin LDL Cholesterol Direct HDL Cholesterol Vitamin B12 TSH PTH Intact Urine Creatinine Urine Total Protein Vancomycin Trough Digoxin Salicylates Acetaminophen Crossmatch 03/22/19 03/22/19 03/22/19 06:10 06:10 11:59 WBC RBC Hgb Hct MCV MCH MCHC RDW Plt Count Lymph % (Auto) Branch % (Auto) Lymph # Branch # Seg Neutrophils % Seg Neuts % (Manual) Lymphocytes % (Manual) Monocytes % (Manual) Eosinophils % (Manual) Nucleated RBC % Seg Neutrophils # Seg Neutrophils # Man Lymphocytes # (Manual) Monocytes # (Manual) Eosinophils # (Manual) PT INR APTT POC ABG pH POC ABG pCO2 POC ABG pO2 Sodium Potassium Chloride Carbon Dioxide BUN Creatinine Glucose POC Glucose Lactic Acid 4.80 H* 3.80 H* Calcium Phosphorus Magnesium Iron TIBC Ferritin Direct Bilirubin AST Total Creatine Kinase Troponin T Total Protein Albumin Prealbumin LDL Cholesterol Direct HDL Cholesterol Vitamin B12 TSH 7.810 H PTH Intact Urine Creatinine Urine Total Protein Vancomycin Trough Digoxin Salicylates Acetaminophen Crossmatch 03/22/19 03/22/19 03/22/19 13:45 13:45 13:45 WBC RBC Hgb 8.3 L Hct 24.5 L MCV MCH MCHC RDW Plt Count 56 L Lymph % (Auto) Branch % (Auto) Lymph # Branch # Seg Neutrophils % Seg Neuts % (Manual) Lymphocytes % (Manual) Monocytes % (Manual) Eosinophils % (Manual) Nucleated RBC % Seg Neutrophils # Seg Neutrophils # Man Lymphocytes # (Manual) Monocytes # (Manual) Eosinophils # (Manual) PT 21.4 H INR 1.90 H APTT 43.2 H POC ABG pH POC ABG pCO2 POC ABG pO2 Sodium Potassium Chloride Carbon Dioxide BUN Creatinine Glucose POC Glucose Lactic Acid 3.50 H* Calcium Phosphorus Magnesium Iron TIBC Ferritin Direct Bilirubin AST Total Creatine Kinase Troponin T Total Protein Albumin Prealbumin LDL Cholesterol Direct HDL Cholesterol Vitamin B12 TSH PTH Intact Urine Creatinine Urine Total Protein Vancomycin Trough Digoxin Salicylates Acetaminophen Crossmatch 03/22/19 03/23/19 03/23/19 22:20 01:06 04:50 WBC 12.1 H RBC 2.36 L Hgb 7.7 L Hct 22.9 L MCV MCH 33 H MCHC RDW Plt Count 37 L Lymph % (Auto) Branch % (Auto) Lymph # Branch # Seg Neutrophils % Seg Neuts % (Manual) 83.0 H Lymphocytes % (Manual) 8.0 L Monocytes % (Manual) Eosinophils % (Manual) Nucleated RBC % Seg Neutrophils # Seg Neutrophils # Man 10.0 H Lymphocytes # (Manual) 1.0 L Monocytes # (Manual) Eosinophils # (Manual) PT INR APTT POC ABG pH POC ABG pCO2 POC ABG pO2 Sodium Potassium Chloride Carbon Dioxide BUN Creatinine Glucose POC Glucose Lactic Acid 3.60 H* 2.70 H* Calcium Phosphorus Magnesium Iron TIBC Ferritin Direct Bilirubin AST Total Creatine Kinase Troponin T Total Protein Albumin Prealbumin LDL Cholesterol Direct HDL Cholesterol Vitamin B12 TSH PTH Intact Urine Creatinine Urine Total Protein Vancomycin Trough Digoxin Salicylates Acetaminophen Crossmatch 03/23/19 03/23/19 03/23/19 04:50 05:25 05:53 WBC RBC Hgb Hct MCV MCH MCHC RDW Plt Count Lymph % (Auto) Branch % (Auto) Lymph # Branch # Seg Neutrophils % Seg Neuts % (Manual) Lymphocytes % (Manual) Monocytes % (Manual) Eosinophils % (Manual) Nucleated RBC % Seg Neutrophils # Seg Neutrophils # Man Lymphocytes # (Manual) Monocytes # (Manual) Eosinophils # (Manual) PT INR APTT POC ABG pH POC ABG pCO2 33.3 L POC ABG pO2 Sodium Potassium 3.5 L Chloride 108.3 H Carbon Dioxide BUN Creatinine Glucose POC Glucose 68 L Lactic Acid Calcium 7.3 L Phosphorus Magnesium Iron TIBC Ferritin Direct Bilirubin AST Total Creatine Kinase Troponin T Total Protein Albumin Prealbumin LDL Cholesterol Direct HDL Cholesterol Vitamin B12 TSH PTH Intact Urine Creatinine Urine Total Protein Vancomycin Trough Digoxin Salicylates Acetaminophen Crossmatch 03/24/19 03/24/19 03/24/19 03:26 05:50 05:57 WBC RBC Hgb Hct MCV MCH MCHC RDW Plt Count Lymph % (Auto) Branch % (Auto) Lymph # Branch # Seg Neutrophils % Seg Neuts % (Manual) Lymphocytes % (Manual) Monocytes % (Manual) Eosinophils % (Manual) Nucleated RBC % Seg Neutrophils # Seg Neutrophils # Man Lymphocytes # (Manual) Monocytes # (Manual) Eosinophils # (Manual) PT INR APTT POC ABG pH POC ABG pCO2 POC ABG pO2 78 L Sodium Potassium 3.4 L Chloride 116.5 H Carbon Dioxide 21 L BUN Creatinine 0.5 L Glucose 105 H POC Glucose 127 H Lactic Acid Calcium 6.4 L Phosphorus Magnesium Iron TIBC Ferritin Direct Bilirubin AST Total Creatine Kinase Troponin T Total Protein Albumin Prealbumin LDL Cholesterol Direct HDL Cholesterol Vitamin B12 TSH PTH Intact Urine Creatinine Urine Total Protein Vancomycin Trough Digoxin Salicylates Acetaminophen Crossmatch 03/24/19 03/24/19 03/24/19 06:00 11:30 12:25 WBC 13.6 H RBC 2.08 L Hgb 6.9 L Hct 20.5 L MCV 99 H MCH 33 H MCHC RDW Plt Count 50 L Lymph % (Auto) 8.1 L Branch % (Auto) 10.0 H Lymph # 1.1 L Branch # 1.4 H Seg Neutrophils % 80.7 H Seg Neuts % (Manual) Lymphocytes % (Manual) Monocytes % (Manual) Eosinophils % (Manual) Nucleated RBC % Seg Neutrophils # 11.0 H Seg Neutrophils # Man Lymphocytes # (Manual) Monocytes # (Manual) Eosinophils # (Manual) PT INR APTT POC ABG pH POC ABG pCO2 POC ABG pO2 Sodium Potassium Chloride Carbon Dioxide BUN Creatinine Glucose POC Glucose 111 H Lactic Acid Calcium Phosphorus Magnesium Iron TIBC Ferritin Direct Bilirubin AST Total Creatine Kinase Troponin T Total Protein Albumin Prealbumin LDL Cholesterol Direct HDL Cholesterol Vitamin B12 TSH PTH Intact Urine Creatinine Urine Total Protein Vancomycin Trough Digoxin Salicylates Acetaminophen Crossmatch See Detail 03/24/19 03/25/19 03/25/19 14:25 05:20 10:00 WBC 13.4 H RBC 2.54 L Hgb 8.1 L Hct 24.3 L MCV MCH MCHC RDW 17.3 H Plt Count 44 L Lymph % (Auto) Branch % (Auto) Lymph # Branch # Seg Neutrophils % Seg Neuts % (Manual) Lymphocytes % (Manual) Monocytes % (Manual) Eosinophils % (Manual) Nucleated RBC % Seg Neutrophils # Seg Neutrophils # Man Lymphocytes # (Manual) Monocytes # (Manual) Eosinophils # (Manual) PT INR APTT POC ABG pH POC ABG pCO2 POC ABG pO2 Sodium Potassium Chloride Carbon Dioxide BUN Creatinine Glucose POC Glucose 111 H Lactic Acid Calcium Phosphorus Magnesium Iron 32 L TIBC 75 L Ferritin Direct Bilirubin AST Total Creatine Kinase Troponin T Total Protein Albumin Prealbumin LDL Cholesterol Direct HDL Cholesterol Vitamin B12 TSH PTH Intact Urine Creatinine Urine Total Protein Vancomycin Trough Digoxin Salicylates Acetaminophen Crossmatch 03/25/19 03/25/19 03/25/19 10:11 10:11 23:11 WBC RBC Hgb Hct MCV MCH MCHC RDW Plt Count Lymph % (Auto) Branch % (Auto) Lymph # Branch # Seg Neutrophils % Seg Neuts % (Manual) Lymphocytes % (Manual) Monocytes % (Manual) Eosinophils % (Manual) Nucleated RBC % Seg Neutrophils # Seg Neutrophils # Man Lymphocytes # (Manual) Monocytes # (Manual) Eosinophils # (Manual) PT INR APTT POC ABG pH POC ABG pCO2 POC ABG pO2 Sodium Potassium Chloride 112.0 H Carbon Dioxide BUN 20 H Creatinine 0.6 L Glucose POC Glucose 112 H Lactic Acid Calcium 7.2 L Phosphorus Magnesium Iron TIBC Ferritin Direct Bilirubin AST Total Creatine Kinase Troponin T Total Protein Albumin Prealbumin LDL Cholesterol Direct HDL Cholesterol Vitamin B12 > 2000 H TSH PTH Intact Urine Creatinine Urine Total Protein Vancomycin Trough Digoxin Salicylates Acetaminophen Crossmatch 03/26/19 03/26/19 03/26/19 05:00 05:00 05:16 WBC 14.4 H RBC 2.74 L Hgb 8.9 L Hct 25.7 L MCV MCH 33 H MCHC 35 H RDW 16.9 H Plt Count 60 L Lymph % (Auto) Branch % (Auto) Lymph # Branch # Seg Neutrophils % Seg Neuts % (Manual) 83.0 H Lymphocytes % (Manual) 5.0 L Monocytes % (Manual) Eosinophils % (Manual) 5.0 H Nucleated RBC % 1.0 H Seg Neutrophils # Seg Neutrophils # Man 12.0 H Lymphocytes # (Manual) 0.7 L Monocytes # (Manual) 0.9 H Eosinophils # (Manual) 0.7 H PT INR APTT POC ABG pH POC ABG pCO2 POC ABG pO2 Sodium Potassium 3.1 L Chloride 110.4 H Carbon Dioxide BUN 22 H Creatinine Glucose 101 H POC Glucose 114 H Lactic Acid Calcium 7.4 L Phosphorus Magnesium Iron TIBC Ferritin Direct Bilirubin AST Total Creatine Kinase Troponin T Total Protein Albumin Prealbumin LDL Cholesterol Direct HDL Cholesterol Vitamin B12 TSH PTH Intact Urine Creatinine Urine Total Protein Vancomycin Trough Digoxin Salicylates Acetaminophen Crossmatch 03/26/19 03/27/19 03/27/19 11:55 09:04 09:04 WBC RBC Hgb Hct MCV MCH MCHC RDW Plt Count Lymph % (Auto) Branch % (Auto) Lymph # Branch # Seg Neutrophils % Seg Neuts % (Manual) Lymphocytes % (Manual) Monocytes % (Manual) Eosinophils % (Manual) Nucleated RBC % Seg Neutrophils # Seg Neutrophils # Man Lymphocytes # (Manual) Monocytes # (Manual) Eosinophils # (Manual) PT INR APTT POC ABG pH POC ABG pCO2 POC ABG pO2 Sodium Potassium 3.2 L Chloride Carbon Dioxide BUN 22 H Creatinine Glucose POC Glucose 121 H Lactic Acid Calcium 7.7 L Phosphorus Magnesium Iron TIBC Ferritin Direct Bilirubin AST Total Creatine Kinase Troponin T Total Protein Albumin Prealbumin LDL Cholesterol Direct HDL Cholesterol Vitamin B12 TSH PTH Intact Urine Creatinine Urine Total Protein Vancomycin Trough 23.0 H Digoxin Salicylates Acetaminophen Crossmatch 03/27/19 03/27/19 03/27/19 09:04 13:31 14:04 WBC 14.8 H RBC 2.52 L Hgb 8.0 L 8.3 L Hct 24.0 L 25.3 L MCV MCH MCHC RDW 17.0 H Plt Count 89 L 91 L Lymph % (Auto) Branch % (Auto) 8.8 H Lymph # Branch # 1.3 H Seg Neutrophils % 70.7 H Seg Neuts % (Manual) Lymphocytes % (Manual) Monocytes % (Manual) Eosinophils % (Manual) Nucleated RBC % Seg Neutrophils # 10.5 H Seg Neutrophils # Man Lymphocytes # (Manual) Monocytes # (Manual) Eosinophils # (Manual) PT INR APTT POC ABG pH POC ABG pCO2 POC ABG pO2 Sodium Potassium Chloride Carbon Dioxide BUN Creatinine Glucose POC Glucose Lactic Acid Calcium Phosphorus Magnesium Iron TIBC Ferritin Direct Bilirubin 0.3 H AST Total Creatine Kinase Troponin T Total Protein 4.9 L Albumin 1.3 L Prealbumin LDL Cholesterol Direct HDL Cholesterol Vitamin B12 TSH PTH Intact Urine Creatinine Urine Total Protein Vancomycin Trough Digoxin Salicylates Acetaminophen Crossmatch 03/27/19 03/27/19 03/28/19 14:04 23:51 01:05 WBC 14.4 H RBC 2.44 L Hgb 8.0 L Hct 24.5 L MCV 100 H MCH 33 H MCHC RDW 18.5 H Plt Count 86 L Lymph % (Auto) Branch % (Auto) Lymph # Branch # Seg Neutrophils % Seg Neuts % (Manual) 84.0 H Lymphocytes % (Manual) 10.0 L Monocytes % (Manual) Eosinophils % (Manual) Nucleated RBC % Seg Neutrophils # Seg Neutrophils # Man 12.1 H Lymphocytes # (Manual) Monocytes # (Manual) Eosinophils # (Manual) PT 21.4 H INR 1.90 H APTT 42.2 H POC ABG pH POC ABG pCO2 POC ABG pO2 Sodium Potassium Chloride Carbon Dioxide BUN Creatinine Glucose POC Glucose 130 H Lactic Acid Calcium Phosphorus Magnesium Iron TIBC Ferritin Direct Bilirubin AST Total Creatine Kinase Troponin T Total Protein Albumin Prealbumin LDL Cholesterol Direct HDL Cholesterol Vitamin B12 TSH PTH Intact Urine Creatinine Urine Total Protein Vancomycin Trough Digoxin Salicylates Acetaminophen Crossmatch 03/28/19 03/28/19 03/28/19 02:51 04:45 07:31 WBC RBC Hgb Hct MCV MCH MCHC RDW Plt Count Lymph % (Auto) Branch % (Auto) Lymph # Branch # Seg Neutrophils % Seg Neuts % (Manual) Lymphocytes % (Manual) Monocytes % (Manual) Eosinophils % (Manual) Nucleated RBC % Seg Neutrophils # Seg Neutrophils # Man Lymphocytes # (Manual) Monocytes # (Manual) Eosinophils # (Manual) PT INR APTT 75.0 H* POC ABG pH POC ABG pCO2 POC ABG pO2 Sodium Potassium Chloride Carbon Dioxide BUN 22 H Creatinine Glucose POC Glucose Lactic Acid Calcium 7.8 L Phosphorus Magnesium Iron TIBC Ferritin 448.3 H Direct Bilirubin AST Total Creatine Kinase Troponin T Total Protein Albumin Prealbumin LDL Cholesterol Direct HDL Cholesterol Vitamin B12 TSH PTH Intact Urine Creatinine Urine Total Protein Vancomycin Trough Digoxin Salicylates Acetaminophen Crossmatch 03/28/19 03/29/19 03/29/19 14:30 04:40 04:40 WBC RBC 2.17 L Hgb 7.1 L Hct 20.8 L MCV MCH 33 H MCHC RDW 17.1 H Plt Count 122 L Lymph % (Auto) Branch % (Auto) Lymph # Branch # Seg Neutrophils % Seg Neuts % (Manual) Lymphocytes % (Manual) Monocytes % (Manual) Eosinophils % (Manual) Nucleated RBC % Seg Neutrophils # Seg Neutrophils # Man Lymphocytes # (Manual) Monocytes # (Manual) Eosinophils # (Manual) PT INR APTT 70.3 H* POC ABG pH POC ABG pCO2 POC ABG pO2 Sodium Potassium Chloride Carbon Dioxide 31 H BUN 22 H Creatinine 0.5 L Glucose POC Glucose Lactic Acid Calcium 8.0 L Phosphorus Magnesium Iron TIBC Ferritin Direct Bilirubin AST Total Creatine Kinase Troponin T Total Protein 5.0 L Albumin 1.4 L Prealbumin LDL Cholesterol Direct HDL Cholesterol Vitamin B12 TSH PTH Intact Urine Creatinine Urine Total Protein Vancomycin Trough Digoxin Salicylates Acetaminophen Crossmatch 03/29/19 03/29/19 03/29/19 04:40 04:40 11:50 WBC RBC Hgb Hct MCV MCH MCHC RDW Plt Count Lymph % (Auto) Branch % (Auto) Lymph # Branch # Seg Neutrophils % Seg Neuts % (Manual) Lymphocytes % (Manual) Monocytes % (Manual) Eosinophils % (Manual) Nucleated RBC % Seg Neutrophils # Seg Neutrophils # Man Lymphocytes # (Manual) Monocytes # (Manual) Eosinophils # (Manual) PT INR APTT 71.8 H* POC ABG pH POC ABG pCO2 POC ABG pO2 Sodium Potassium Chloride Carbon Dioxide BUN Creatinine Glucose POC Glucose 118 H Lactic Acid Calcium Phosphorus Magnesium Iron TIBC Ferritin Direct Bilirubin AST Total Creatine Kinase Troponin T Total Protein Albumin Prealbumin LDL Cholesterol Direct HDL Cholesterol Vitamin B12 TSH PTH Intact Urine Creatinine Urine Total Protein Vancomycin Trough Digoxin 3.5 H* Salicylates Acetaminophen Crossmatch 03/29/19 03/29/19 03/29/19 16:20 16:20 21:10 WBC RBC Hgb Hct MCV MCH MCHC RDW Plt Count Lymph % (Auto) Branch % (Auto) Lymph # Branch # Seg Neutrophils % Seg Neuts % (Manual) Lymphocytes % (Manual) Monocytes % (Manual) Eosinophils % (Manual) Nucleated RBC % Seg Neutrophils # Seg Neutrophils # Man Lymphocytes # (Manual) Monocytes # (Manual) Eosinophils # (Manual) PT INR APTT 61.5 H* 112.6 H* POC ABG pH POC ABG pCO2 POC ABG pO2 Sodium Potassium Chloride Carbon Dioxide BUN Creatinine Glucose POC Glucose Lactic Acid Calcium Phosphorus Magnesium Iron TIBC Ferritin Direct Bilirubin AST Total Creatine Kinase Troponin T Total Protein Albumin Prealbumin LDL Cholesterol Direct HDL Cholesterol Vitamin B12 TSH PTH Intact Urine Creatinine Urine Total Protein Vancomycin Trough Digoxin 2.6 H* Salicylates Acetaminophen Crossmatch 03/29/19 03/30/19 03/30/19 22:30 04:42 04:42 WBC RBC Hgb 6.4 L Hct 18.9 L* MCV MCH MCHC RDW Plt Count Lymph % (Auto) Branch % (Auto) Lymph # Branch # Seg Neutrophils % Seg Neuts % (Manual) Lymphocytes % (Manual) Monocytes % (Manual) Eosinophils % (Manual) Nucleated RBC % Seg Neutrophils # Seg Neutrophils # Man Lymphocytes # (Manual) Monocytes # (Manual) Eosinophils # (Manual) PT INR APTT 103.8 H* POC ABG pH POC ABG pCO2 POC ABG pO2 Sodium Potassium Chloride Carbon Dioxide BUN Creatinine Glucose POC Glucose Lactic Acid Calcium Phosphorus Magnesium Iron TIBC Ferritin Direct Bilirubin AST Total Creatine Kinase Troponin T Total Protein Albumin Prealbumin LDL Cholesterol Direct HDL Cholesterol Vitamin B12 TSH PTH Intact Urine Creatinine Urine Total Protein Vancomycin Trough Digoxin 2.6 H* Salicylates Acetaminophen Crossmatch 03/30/19 03/30/19 03/30/19 07:04 07:58 11:15 WBC RBC 2.66 L Hgb 8.5 L Hct 25.3 L D MCV MCH MCHC RDW 17.4 H Plt Count Lymph % (Auto) Branch % (Auto) Lymph # Branch # Seg Neutrophils % Seg Neuts % (Manual) Lymphocytes % (Manual) Monocytes % (Manual) Eosinophils % (Manual) Nucleated RBC % Seg Neutrophils # Seg Neutrophils # Man Lymphocytes # (Manual) Monocytes # (Manual) Eosinophils # (Manual) PT INR APTT 50.5 H POC ABG pH POC ABG pCO2 POC ABG pO2 Sodium Potassium Chloride Carbon Dioxide BUN Creatinine Glucose POC Glucose Lactic Acid Calcium Phosphorus Magnesium Iron TIBC Ferritin Direct Bilirubin AST Total Creatine Kinase Troponin T Total Protein Albumin Prealbumin LDL Cholesterol Direct HDL Cholesterol Vitamin B12 TSH PTH Intact Urine Creatinine Urine Total Protein Vancomycin Trough Digoxin Salicylates Acetaminophen Crossmatch See Detail 03/30/19 03/30/19 03/30/19 11:36 17:40 22:51 WBC RBC 2.48 L Hgb 7.9 L Hct 23.9 L MCV MCH MCHC RDW 17.7 H Plt Count Lymph % (Auto) Branch % (Auto) Lymph # Branch # Seg Neutrophils % Seg Neuts % (Manual) Lymphocytes % (Manual) Monocytes % (Manual) Eosinophils % (Manual) Nucleated RBC % Seg Neutrophils # Seg Neutrophils # Man Lymphocytes # (Manual) Monocytes # (Manual) Eosinophils # (Manual) PT INR APTT POC ABG pH POC ABG pCO2 POC ABG pO2 Sodium Potassium Chloride Carbon Dioxide BUN Creatinine Glucose POC Glucose 129 H 112 H Lactic Acid Calcium Phosphorus Magnesium Iron TIBC Ferritin Direct Bilirubin AST Total Creatine Kinase Troponin T Total Protein Albumin Prealbumin LDL Cholesterol Direct HDL Cholesterol Vitamin B12 TSH PTH Intact Urine Creatinine Urine Total Protein Vancomycin Trough Digoxin Salicylates Acetaminophen Crossmatch 03/30/19 03/31/19 03/31/19 23:47 05:00 11:35 WBC RBC Hgb 8.0 L Hct 23.7 L MCV MCH MCHC RDW Plt Count Lymph % (Auto) Branch % (Auto) Lymph # Branch # Seg Neutrophils % Seg Neuts % (Manual) Lymphocytes % (Manual) Monocytes % (Manual) Eosinophils % (Manual) Nucleated RBC % Seg Neutrophils # Seg Neutrophils # Man Lymphocytes # (Manual) Monocytes # (Manual) Eosinophils # (Manual) PT INR APTT POC ABG pH POC ABG pCO2 POC ABG pO2 Sodium Potassium Chloride Carbon Dioxide BUN Creatinine Glucose POC Glucose 112 H 106 H Lactic Acid Calcium Phosphorus Magnesium Iron TIBC Ferritin Direct Bilirubin AST Total Creatine Kinase Troponin T Total Protein Albumin Prealbumin LDL Cholesterol Direct HDL Cholesterol Vitamin B12 TSH PTH Intact Urine Creatinine Urine Total Protein Vancomycin Trough Digoxin Salicylates Acetaminophen Crossmatch 04/01/19 04/02/19 11:38 08:33 WBC RBC Hgb 7.8 L Hct 23.1 L MCV MCH MCHC RDW Plt Count Lymph % (Auto) Branch % (Auto) Lymph # Branch # Seg Neutrophils % Seg Neuts % (Manual) Lymphocytes % (Manual) Monocytes % (Manual) Eosinophils % (Manual) Nucleated RBC % Seg Neutrophils # Seg Neutrophils # Man Lymphocytes # (Manual) Monocytes # (Manual) Eosinophils # (Manual) PT INR APTT POC ABG pH POC ABG pCO2 POC ABG pO2 Sodium Potassium Chloride Carbon Dioxide BUN Creatinine Glucose POC Glucose 136 H Lactic Acid Calcium Phosphorus Magnesium Iron TIBC Ferritin Direct Bilirubin AST Total Creatine Kinase Troponin T Total Protein Albumin Prealbumin LDL Cholesterol Direct HDL Cholesterol Vitamin B12 TSH PTH Intact Urine Creatinine Urine Total Protein Vancomycin Trough Digoxin Salicylates Acetaminophen Crossmatch
[2019-04-02] MEDS: MERREM 1,000 MG in NACL 0.9% 100 ML IV SCH ×3 (13:25→22:16)
--- NOTE | 2019-04-02 16:53 | Progress Note ---
Assessment and Plan Cultures/ID related labs: 03/27 tracheal aspirate - heavy neutrophils, usual resp maday Blood culture 03/19/2019 negative. Urine culture 03/19/2019 negative. 03/23/2019 tracheal aspirate culture: Usual resp maday Assessment: 73 y/o female with history of dementia, prior CVA, on home hospice admitted on 03/20/2019 brought by EMS due to altered mental status: 1) Sepsis with septic shock: source pneumonia but persistent fever. UA negative. Blood culture 03/19/2019 no growth. Urine culture 03/19/2019 negative. Would continue meropenem for now and monitor for improvement, likely for 8 day course. Resp culture sterilized. Added vancomycin 03/30 2) Bilateral pneumonia: ? aspiration v/s CAP. Trach aspirate cultures usual resp maday, <25 WBC. 3) Acute encephalopathy: CT head without contrast shows encephalomalacia in the entire right cerebral hemisphere, volume loss in the left cerebral hemisphere, no acute parenchymal lesion in the brain. 4) Acute respiratory failure: remains intubated, on the vent. Intermittently responsive to commands. 5) HA: improved. 6) Persistent fevers - ?too high to be fully explained by the DVTs. It is possible the fevers are not infective, however without an alternate etiology I feel we should cover broadly. 7) DVTs - DVT of RIJ at catheter site as well as R common femoral, and a superficial thrombus in R greater saphenous Recommendations: continue IV Meropenem 1 gm q8 hrs (start date: 03/26/19) Continue IV vancomycin (start date: 03/30/19) Guarded prognosis, was on home hospice prior to admission ?drug fever, may have to consider that possibility given the persistent fevers CBC with differential ordered for tomorrow AM Isaias Quintanilla MD, FACP [facility] ([facility] C: [phone] O: [phone] F: [phone] Subjective Date of service: 04/02/19 Principal diagnosis: low plt - DVT Interval history: Continues to spike fevers. Remains on the vent. Not on pressors. Discussed with RN, moderate amount of liquid stools, but on tube feeds. Objective - Exam Narrative Exam: Physical Exam: Constitutional: awake, intubated, not following commands Head, Ears, Nose: Normocephalic, atraumatic. External ears, nose normal Eyes: Conjunctivae/corneas clear. No icterus. No ptosis. Neck: Supple, no meningeal signs Oral: intubated Cardiovascular: S1, S2 normal. Respiratory: Good air entry, clear to auscultation bilaterally GI: Soft, non-tender; bowel sounds normal. No peritoneal signs. Rectal tube + Musculoskeletal: B/L trace pedal edema, foot drop and contractures Skin: No rash or abscess Hem/Lymphatic: No palpable cervical or supraclavicular nodes. No lymphangitis Psych: no agitation Neurological: intubated, on vent - Constitutional Vitals: Vital Signs Temp Pulse Resp BP Pulse Ox 98.1 F 113 H 15 129/51 96 04/02/19 16:00 04/02/19 15:00 04/02/19 15:00 04/02/19 15:00 04/02/19 15:00 Temperature -Last 24 Hours Temperature 98.1 F Temperature 99.8 F Temperature 98.3 F Temperature 98.3 F Temperature 102.6 F Temperature 74 F Temperature 101.3 F Temperature 100.8 F - Labs CBC & Chem 7: 04/02/19 08:33 03/29/19 04:40 Labs: Abnormal lab results 04/02/19 Range/Units 08:33 Hgb 7.8 L (10.1-14.3) gm/dl Hct 23.1 L (30.3-42.9) %
--- NOTE | 2019-04-02 17:55 | Hem/Onc Progress Note ---
Assessment and Plan low plt - since admission DVT was on home hospice 1. Thrombocytopenia. This may be secondary to medications. The platelets were even low at admission. The differential includes infection versus a marrow issue. At this time, platelets are adequate, we will follow the trend. Because of clinical suspicion, HIT test has been ordered. Argatroban ordered. Heparin has been stopped. 2. Pneumonia. 3. Encephalopathy. 4. Respiratory failure, on vent. 5. Renal impairment. 6. Deep vein thrombosis. Her immobilization may have a role. Central line also may have a role. the patient was on Argatroban. Once HIT antibody is negative, we will look into changing to oral anticoagulation like Eliquis or Xarelto. Her thrombocytopenia may complicate, the patient had low platelet even at admission. IVC filter may prevent the leg DVT from progression to PE; however, for IJ DVT, we have limited options. The patient was on home hospice as per notes. Atrial fibrillation, she was on medications. History of anemia, deficiency investigations. Leukocytosis, likely reactive. B12 level more than 2000, serum iron 32. HIT antibody done on 03/27 anemia - IV iron trial 04/02/2019 anemia - off argatroban s/p PRBC d/w family reg the pt - Patient Problems (1) Thrombocytopenia Current Visit: Yes Status: Acute Subjective Date of service: 04/02/19 Principal diagnosis: dvt - anemia Interval history: on vent Objective - Exam Narrative Exam: Pain - none - on vent General appearance intubated Performance status - complete help needed Eyes - no icterus ENT no thrush LNs cervical not palpable Neck - no LNs/mass Respiratory Normal Breath sounds - CTA anteriorly CVS S1 S2 + Extremities normal temperature - flaccid General GI Soft - distended Rectal deferred female - deferred Skin warm Musculoskeletal not able to evaluate Neurologically - on vent - Constitutional Vitals: Last Vital Signs Temp 99.1 F 04/02/19 17:52 Pulse 113 H 04/02/19 15:00 Resp 15 04/02/19 15:00 BP 129/51 04/02/19 15:00 Pulse Ox 96 04/02/19 15:00 - Labs Lab Results: Laboratory Results - last 24 hr 04/01/19 04/01/19 04/02/19 17:59 23:56 04:58 Hgb Hct Plt Count POC Glucose 91 74 72 04/02/19 04/02/19 08:33 11:29 Hgb 7.8 L Hct 23.1 L Plt Count 251 POC Glucose 84 Medications & Allergies - Medications Allergies/Adverse Reactions: Allergies No Known Allergies Allergy (Unverified 03/19/19 13:11) Home Medications: Home Medications Medication Instructions Recorded Confirmed Last Taken Type Aspirin EC 81 mg PO DAILY 03/20/19 03/20/19 Unknown History Divalproex Sodium 375 mg PO Q8H PRN 03/20/19 03/20/19 Unknown History Metoprolol [Lopressor TAB] 50 mg PO BID 03/20/19 03/20/19 Unknown History Sennosides/Docusate Sodium [Senna 8.6 mg PO BID PRN 03/20/19 03/20/19 Unknown History Plus Tablet] levETIRAcetam [Keppra TAB] 500 mg PO BID 03/20/19 03/20/19 Unknown History Active Medications: Generic Name Dose Route Start Last Admin Trade Name Freq PRN Reason Stop Dose Admin Acetaminophen 650 mg 03/24/19 23:48 04/01/19 12:25 Tylenol FEEDTUBE 650 mg Q6H PRN Administration Fever >101 Albuterol 2.5 mg 03/19/19 23:58 Proventil IH Q3HRT PRN Shortness Of Breath Albuterol/Ipratropium 1 ampul 03/20/19 02:00 04/02/19 14:27 Duoneb *Not For Prn Use* IH 1 ampul Q6HRT YUSUF Administration Amiodarone HCl 200 mg 03/22/19 22:00 04/02/19 10:08 Cordarone PO 200 mg BID YUSUF Administration Lipase/Protease/Amylase 1 each 03/22/19 16:03 Naomi Sargent 10,500 Unit FEEDTUBE PRN PRN For Clogged Feeding Tube Aspirin 81 mg 03/21/19 10:00 04/02/19 10:08 Baby Aspirin PO 81 mg DAILY YUSUF Administration Budesonide 0.5 mg 03/19/19 23:45 04/02/19 08:08 Pulmicort IH 0.5 mg Q12HRT YUSUF Administration Dextrose 50 ml 03/19/19 23:58 03/21/19 16:29 D50w (25gm) Syringe IV 50 ml PRN PRN Administration Hypoglycemia Famotidine 20 mg 03/22/19 10:00 04/02/19 10:08 Pepcid PO 20 mg BID YUSUF Administration Fentanyl 50 mcg 03/19/19 12:45 03/19/19 13:26 Sublimaze IV 50 mcg Q10MIN PRN Administration ANALGESIA Hydromorphone HCl 0.5 mg 03/19/19 23:58 Dilaudid IV Q3H PRN Pain , Severe (7-10) Hydrophilic Ointment 1 applic 03/19/19 12:45 Vaseline Lip Therapy TP Q2HR PRN Dry Lips Fentanyl Citrate 2,000 mcg in 100 mls @ 2.835 mls/hr 03/19/19 14:00 03/21/19 11:33 Fentanyl Drip Premix IV 0 mcg/kg/hr TITR YUSUF 0 mls/hr Titration Protocol 1 MCG/KG/HR Norepinephrine 4 mg in 250 mls @ 7.5 mls/hr 03/25/19 11:00 03/30/19 23:45 Levophed Drip 4 Mg/Ns 250 Ml IV 0 mcg/min TITR YUSUF 0 mls/hr Titration Protocol 2 MCG/MIN Meropenem 1,000 mg/ Sodium 100 mls @ 100 mls/hr 03/26/19 15:00 04/02/19 13:25 Chloride IV Not Given Q8HR [facility] Protocol Vancomycin HCl 1,250 mg/ 275 mls @ 166.667 mls/hr 03/30/19 13:00 04/02/19 10:13 Sodium Chloride IV 166.667 mls/hr Q24HR YUSUF Administration Insulin Human Lispro 0 unit 03/20/19 00:00 04/02/19 13:00 Humalog SUB-Q Not Given Q6HR [facility] Protocol Metoclopramide HCl 5 mg 03/20/19 00:12 Reglan IV Q6H PRN Nausea And Vomiting Metoprolol Tartrate 2.5 mg 03/23/19 13:17 03/24/19 21:20 Lopressor IV 2.5 mg Q2HR PRN Administration HR >150 Multi-Ingred Cream/Lotion/Oil/Oint 1 applic 03/19/19 12:45 Artificial Tears Ophth Oint OU Q4HR PRN Dry Eye(s) Ondansetron HCl 4 mg 03/19/19 23:58 Zofran IV Q8H PRN Nausea And Vomiting Promethazine HCl 25 mg 03/19/19 23:58 Phenergan IA Q6H PRN N/V IF NPO AND NO IV ACCESS Simple Syrup 15 ml 03/22/19 16:03 03/23/19 07:21 Simple Syrup FEEDTUBE 15 ml PRN PRN Administration Hypoglycemia Simple Syrup 30 ml 03/22/19 16:03 Simple Syrup FEEDTUBE PRN PRN Hypoglycemia Sodium Bicarbonate 325 mg 03/22/19 16:03 Sodium Bicarbonate FEEDTUBE PRN PRN For Clogged Feeding Tube Sodium Chloride 10 ml 03/20/19 10:00 04/02/19 10:09 Sodium Chloride Flush Syringe 10 Ml IV 10 ml BID YUSUF Administration Sodium Chloride 10 ml 03/19/19 23:58 Sodium Chloride Flush Syringe 10 Ml IV PRN PRN LINE FLUSH
--- NOTE | 2019-04-02 19:52 | Progress Note ---
Assessment and Plan Assessment and plan: --DO NOT RESUSCITATE status --Awaiting inpatient hospice placement --Acute hypoxic respiratory Failure intubated : Vent dependent >96hrs Pulm cr care following, if unable to wean,patient may need trach and PEG --Severe Anemia: Drop in H/H transfused 1 unit PRBC. Hb 7.8 DC argatroban Closely monitor --Brief episode of Hypotension: improved with fluid bolus, --Digoxin toxicity;supratherapeutic level, off digoxin --Acute Right common femoral DVT and right IJ vein thrombosis argatroban drip dced due to severe anemia[requiring transfusion] Hemat following --Acute metabolic encephalopathy, cont supportive care, CT head negative --Sepsis due to aspiration pneumonia; Continue current antibiotics follow cultures --Septic shock: off pressor, weaned off, BP now stable --Paroxysmal Atrial fib, Now NSR on amioderone,metoprolol digoxin held Started low dose metoprolol --HA (acute kidney injury), atn and vasomotor nephrology, poa: Resolved Nephrology consulted renal function improved --Anemia, due to CD vs other cause Monitor H&H and transfuse additional as needed --RUL Aspiration pneumonia:on Merropenem --Hypernatremia: improved with Iv fluid --Hypomagnesemia: replete and follow as needed --Elevated troponin level/ NSTEMI II; Cardiology following --DVT prophylaxis --DNR status. Patient is vent dependent critically ill, poor prognosis recommended hospice,Family considering inpt hospice. Disposition; Pending Hospice placement when family decides CCT 33 minutes History Interval history: Patient is a DO NOT RESUSCITATE status Awaiting inpatient hospice placement Remains intubated vent dependent Vital signs noted Hospitalist Physical - Constitutional Vitals: Temp Pulse Resp BP Pulse Ox 99.1 F 112 H 24 117/57 98 04/02/19 17:52 04/02/19 19:00 04/02/19 19:00 04/02/19 19:00 04/02/19 19:00 General appearance: Present: no acute distress, well-nourished, other (intubated on vent) - EENT Eyes: Present: PERRL, EOM intact - Neck Neck: Present: supple, normal ROM - Respiratory Respiratory effort: normal Respiratory: bilateral: diminished, rhonchi, negative: rales, wheezing - Cardiovascular Rhythm: regular Heart Sounds: Present: S1 & S2 - Extremities Extremities: no ischemia, No edema - Abdominal General gastrointestinal: soft, non-tender, non-distended, normal bowel sounds - Integumentary Integumentary: Present: clear, warm - Psychiatric Psychiatric: other (on vent) - Neurologic Neurologic: other (on vent) Results - Labs CBC & Chem 7: 04/02/19 08:33 03/29/19 04:40 Labs: Laboratory Last Values WBC 8.7 K/mm3 (4.5-11.0) 03/30/19 22:51 RBC 2.48 M/mm3 (3.65-5.03) L 03/30/19 22:51 Hgb 7.8 gm/dl (10.1-14.3) L 04/02/19 08:33 Hct 23.1 % (30.3-42.9) L 04/02/19 08:33 MCV 97 fl (79-97) 03/30/19 22:51 MCH 32 pg (28-32) 03/30/19 22:51 MCHC 33 % (30-34) 03/30/19 22:51 RDW 17.7 % (13.2-15.2) H 03/30/19 22:51 Plt Count 251 K/mm3 (140-440) 04/02/19 08:33 Lymph % (Auto) 20.2 % (13.4-35.0) 03/29/19 04:40 [place] % (Auto) 7.1 % (0.0-7.3) 03/29/19 04:40 Eos % (Auto) 2.8 % (0.0-4.3) 03/29/19 04:40 Baso % (Auto) 0.6 % (0.0-1.8) 03/29/19 04:40 Lymph # 2.1 K/mm3 (1.2-5.4) 03/29/19 04:40 [place] # 0.7 K/mm3 (0.0-0.8) 03/29/19 04:40 Eos # 0.3 K/mm3 (0.0-0.4) 03/29/19 04:40 Baso # 0.1 K/mm3 (0.0-0.1) 03/29/19 04:40 Add Manual Diff Complete 03/28/19 01:05 Total Counted 100 03/28/19 01:05 Seg Neutrophils % 69.3 % (40.0-70.0) 03/29/19 04:40 Seg Neuts % (Manual) 84.0 % (40.0-70.0) H 03/28/19 01:05 0 % 03/28/19 01:05 10.0 % (13.4-35.0) L 03/28/19 01:05 Reactive Lymphs % (Man) 0 % 03/28/19 01:05 3.0 % (0.0-7.3) 03/28/19 01:05 2.0 % (0.0-4.3) 03/28/19 01:05 1.0 % (0.0-1.8) 03/28/19 01:05 0 % 03/28/19 01:05 0 % 03/28/19 01:05 0 % 03/28/19 01:05 0 % 03/28/19 01:05 Nucleated RBC % Not Reportable 03/28/19 01:05 Seg Neutrophils # 7.2 K/mm3 (1.8-7.7) 03/29/19 04:40 Seg Neutrophils # Man 12.1 K/mm3 (1.8-7.7) H 03/28/19 01:05 Band Neutrophils # 0.0 K/mm3 03/28/19 01:05 1.4 K/mm3 (1.2-5.4) 03/28/19 01:05 Abs React Lymphs (Man) 0.0 K/mm3 03/28/19 01:05 0.4 K/mm3 (0.0-0.8) 03/28/19 01:05 0.3 K/mm3 (0.0-0.4) 03/28/19 01:05 0.1 K/mm3 (0.0-0.1) 03/28/19 01:05 0.0 K/mm3 03/28/19 01:05 0.0 K/mm3 03/28/19 01:05 0.0 K/mm3 03/28/19 01:05 Blast Cells # 0.0 K/mm3 03/28/19 01:05 WBC Morphology Not Reportable 03/28/19 01:05 Hypersegmented Neuts Not Reportable 03/28/19 01:05 Hyposegmented Neuts Not Reportable 03/28/19 01:05 Hypogranular Neuts Not Reportable 03/28/19 01:05 Not Reportable 03/28/19 01:05 Not Reportable 03/28/19 01:05 Not Reportable 03/28/19 01:05 Not Reportable 03/28/19 01:05 Not Reportable 03/28/19 01:05 Not Reportable 03/28/19 01:05 Not Reportable 03/28/19 01:05 Not Reportable 03/28/19 01:05 Plt Clumps, EDTA Not Reportable 03/28/19 01:05 Not Reportable 03/28/19 01:05 Not Reportable 03/28/19 01:05 Not Reportable 03/28/19 01:05 Plt Morphology Comment Not Reportable 03/28/19 01:05 RBC Morphology Normal 03/28/19 01:05 Dimorphic RBCs Not Reportable 03/28/19 01:05 Not Reportable 03/28/19 01:05 Not Reportable 03/28/19 01:05 Not Reportable 03/28/19 01:05 Not Reportable 03/28/19 01:05 Not Reportable 03/28/19 01:05 Not Reportable 03/28/19 01:05 Not Reportable 03/28/19 01:05 Not Reportable 03/28/19 01:05 Not Reportable 03/28/19 01:05 Not Reportable 03/28/19 01:05 Not Reportable 03/28/19 01:05 Not Reportable 03/28/19 01:05 Not Reportable 03/28/19 01:05 Not Reportable 03/28/19 01:05 Not Reportable 03/28/19 01:05 Not Reportable 03/28/19 01:05 Not Reportable 03/28/19 01:05 Not Reportable 03/28/19 01:05 Not Reportable 03/28/19 01:05 Acanthocytes (Spur) Not Reportable 03/28/19 01:05 Rouleaux Not Reportable 03/28/19 01:05 Not Reportable 03/28/19 01:05 Not Reportable 03/28/19 01:05 Not Reportable 03/28/19 01:05 Not Reportable 03/28/19 01:05 Hem Pathologist Commnt No 03/28/19 01:05 PT 21.4 Sec. (12.2-14.9) H 03/27/19 14:04 INR 1.90 (0.87-1.13) H 03/27/19 14:04 APTT 50.5 Sec. (24.2-36.6) H 03/30/19 11:15 Heparin Anti-Xa, Unfract Negative (Negative) 03/27/19 13:30 POC ABG pH 7.411 (7.35-7.45) 03/25/19 05:40 POC ABG pCO2 33.3 (35-45) L 03/23/19 05:25 POC ABG pO2 83 (80-105) 03/25/19 05:40 POC ABG HCO3 17.7 (22-26 mml/L) 03/25/19 05:40 POC ABG Total CO2 19 (23-27mmol/L) 03/25/19 05:40 POC ABG O2 Sat 97 03/25/19 05:40 POC ABG Base Excess -7 ((-2) - (+3)mmol/L) 03/25/19 05:40 30 % 03/25/19 05:40 Sodium 140 mmol/L (137-145) 03/29/19 04:40 Potassium 3.7 mmol/L (3.6-5.0) 03/29/19 04:40 Chloride 102.9 mmol/L (98-107) 03/29/19 04:40 Carbon Dioxide 31 mmol/L (22-30) H 03/29/19 04:40 10 mmol/L 03/29/19 04:40 BUN 22 mg/dL (7-17) H 03/29/19 04:40 0.5 mg/dL (0.7-1.2) L 03/29/19 04:40 Estimated GFR > 60 ml/min 03/29/19 04:40 44 % 03/29/19 04:40 Glucose 80 mg/dL (65-100) 03/29/19 04:40 POC Glucose 84 (70-105) 04/02/19 11:29 4.2 % (4-6) 03/20/19 08:23 Lactic Acid 2.00 mmol/L (0.7-2.0) 03/23/19 04:50 Calcium 8.0 mg/dL (8.4-10.2) L 03/29/19 04:40 Phosphorus 2.00 mg/dL (2.5-4.5) L 03/20/19 17:50 Magnesium 1.70 mg/dL (1.7-2.3) 03/21/19 04:12 Iron 32 ug/dL (37-170) L 03/24/19 14:25 TIBC 75 mcg/dL (250-450) L 03/24/19 14:25 448.3 ng/mL (13.0-400.0) H 03/28/19 07:31 0.50 mg/dL (0.1-1.2) 03/29/19 04:40 0.3 mg/dL (0-0.2) H 03/27/19 13:31 0.2 mg/dL 03/27/19 13:31 AST 23 units/L (5-40) 03/29/19 04:40 ALT 9 units/L (7-56) 03/29/19 04:40 103 units/L (35-129) 03/29/19 04:40 1499 units/L (30-135) H 03/19/19 12:59 0.036 ng/mL (0.00-0.029) H 03/22/19 06:10 5.0 g/dL (6.3-8.2) L 03/29/19 04:40 1.4 g/dL (3.9-5) L 03/29/19 04:40 0.4 % 03/29/19 04:40 0.052 g/L (0.200-0.400) L 03/20/19 08:23 Triglycerides 72 mg/dL (2-149) 03/19/19 12:59 Cholesterol 61 mg/dL (50-199) 03/19/19 12:59 22 mg/dL (50-130) L 03/19/19 12:59 31 mg/dL (40-59) L 03/19/19 12:59 1.96 % 03/19/19 12:59 See scanned result 03/27/19 13:30 Vitamin B12 > 2000 pg/mL (211-911) H 03/25/19 10:11 18.61 ng/mL (7.3-26.0) 03/28/19 07:31 TSH 7.810 mlU/mL (0.270-4.200) H 03/22/19 06:10 Free T4 1.21 ng/dL (0.76-1.46) 03/22/19 06:10 PTH Intact 171.6 pg/mL (15-65) H 03/20/19 17:50 Yellow (Yellow) 03/19/19 12:47 Clear (Clear) 03/19/19 12:47 5.0 (5.0-7.0) 03/19/19 12:47 Ur Specific [place] 1.010 (1.003-1.030) 03/19/19 12:47 <15 mg/dl mg/dL (Negative) 03/19/19 12:47 50 mg/dL (Negative) 03/19/19 12:47 Neg mg/dL (Negative) 03/19/19 12:47 Lg (Negative) 03/19/19 12:47 Neg (Negative) 03/19/19 12:47 Neg (Negative) 03/19/19 12:47 < 2.0 mg/dL (<2.0) 03/19/19 12:47 Ur Leukocyte Esterase Neg (Negative) 03/19/19 12:47 2.0 /HPF (0.0-6.0) 03/19/19 12:47 2.0 /HPF (0.0-6.0) 03/19/19 12:47 U Epithel Cells (Auto) 1.0 /HPF (0-13.0) 03/19/19 12:47 1+ /HPF (Negative) 03/19/19 12:47 Hyaline Casts 3 /LPF 03/19/19 12:47 Few /HPF 03/19/19 12:47 None seen (None Seen) 03/20/19 16:40 53.7 mg/dL (0.1-20.0) H 03/20/19 16:40 3.8 mg/dL (0.1-34.0) 03/20/19 16:40 Microalb/Creat Ratio 70.7 ug/mg 03/20/19 16:40 116 mmol/L 03/20/19 16:40 36 mg/dL (5-11.8) H 03/20/19 16:40 Vancomycin Trough 23.0 ug/mL (5.0-20.0) H 03/27/19 09:04 Digoxin 2.6 ng/mL (0.9-2.0) H* 03/30/19 04:42 Salicylates < 0.3 mg/dL (2.8-20.0) L 03/19/19 12:59 Acetaminophen < 5.0 ug/mL (10.0-30.0) L 03/19/19 12:59 Heparin-induced Plt Ab Negative (Negative) 03/27/19 13:30 UF Heparin High Dose 0 % Release 03/27/19 13:30 SEMAJ UFH Low Dose 0.1 0 % Release 03/27/19 13:30 SEMAJ UFH Low Dose 0.5 0 % Release 03/27/19 13:30 Blood Type O POSITIVE 03/30/19 07:04 Antibody Screen Negative 03/30/19 07:04 Crossmatch See Detail 03/30/19 07:04 Active Medications - Current Medications Current Medications: Generic Name Dose Route Start Last Admin Trade Name Freq PRN Reason Stop Dose Admin Acetaminophen 650 mg 03/24/19 23:48 04/01/19 12:25 Tylenol FEEDTUBE 650 mg Q6H PRN Administration Fever >101 Albuterol 2.5 mg 03/19/19 23:58 Proventil IH Q3HRT PRN Shortness Of Breath Albuterol/Ipratropium 1 ampul 03/20/19 02:00 04/02/19 14:27 Duoneb *Not For Prn Use* IH 1 ampul Q6HRT YUSUF Administration Amiodarone HCl 200 mg 03/22/19 22:00 04/02/19 10:08 Cordarone PO 200 mg BID YUSUF Administration Lipase/Protease/Amylase 1 each 03/22/19 16:03 Pancretobi Sargent 10,500 Unit FEEDTUBE PRN PRN For Clogged Feeding Tube Aspirin 81 mg 03/21/19 10:00 04/02/19 10:08 Baby Aspirin PO 81 mg DAILY YUSUF Administration Budesonide 0.5 mg 03/19/19 23:45 04/02/19 08:08 Pulmicort IH 0.5 mg Q12HRT YUSUF Administration Dextrose 50 ml 03/19/19 23:58 03/21/19 16:29 D50w (25gm) Syringe IV 50 ml PRN PRN Administration Hypoglycemia Famotidine 20 mg 03/22/19 10:00 04/02/19 10:08 Pepcid PO 20 mg BID YUSUF Administration Fentanyl 50 mcg 03/19/19 12:45 03/19/19 13:26 Sublimaze IV 50 mcg Q10MIN PRN Administration ANALGESIA Hydromorphone HCl 0.5 mg 03/19/19 23:58 Dilaudid IV Q3H PRN Pain , Severe (7-10) Hydrophilic Ointment 1 applic 03/19/19 12:45 Vaseline Lip Therapy TP Q2HR PRN Dry Lips Fentanyl Citrate 2,000 mcg in 100 mls @ 2.835 mls/hr 03/19/19 14:00 03/21/19 11:33 Fentanyl Drip Premix IV 0 mcg/kg/hr TITR YUSUF 0 mls/hr Titration Protocol 1 MCG/KG/HR Norepinephrine 4 mg in 250 mls @ 7.5 mls/hr 03/25/19 11:00 03/30/19 23:45 Levophed Drip 4 Mg/Ns 250 Ml IV 0 mcg/min TITR YUSUF 0 mls/hr Titration Protocol 2 MCG/MIN Meropenem 1,000 mg/ Sodium 100 mls @ 100 mls/hr 03/26/19 15:00 04/02/19 13:25 Chloride IV Not Given Q8HR [facility] Protocol Vancomycin HCl 1,250 mg/ 275 mls @ 166.667 mls/hr 03/30/19 13:00 04/02/19 10:13 Sodium Chloride IV 166.667 mls/hr Q24HR YUSUF Administration Insulin Human Lispro 0 unit 03/20/19 00:00 04/02/19 13:00 Humalog SUB-Q Not Given Q6HR [facility] Protocol Metoclopramide HCl 5 mg 03/20/19 00:12 Reglan IV Q6H PRN Nausea And Vomiting Metoprolol Tartrate 2.5 mg 03/23/19 13:17 03/24/19 21:20 Lopressor IV 2.5 mg Q2HR PRN Administration HR >150 Multi-Ingred Cream/Lotion/Oil/Oint 1 applic 03/19/19 12:45 Artificial Tears Ophth Oint OU Q4HR PRN Dry Eye(s) Ondansetron HCl 4 mg 03/19/19 23:58 Zofran IV Q8H PRN Nausea And Vomiting Promethazine HCl 25 mg 03/19/19 23:58 Phenergan SC Q6H PRN N/V IF NPO AND NO IV ACCESS Simple Syrup 15 ml 03/22/19 16:03 03/23/19 07:21 Simple Syrup FEEDTUBE 15 ml PRN PRN Administration Hypoglycemia Simple Syrup 30 ml 03/22/19 16:03 Simple Syrup FEEDTUBE PRN PRN Hypoglycemia Sodium Bicarbonate 325 mg 03/22/19 16:03 Sodium Bicarbonate FEEDTUBE PRN PRN For Clogged Feeding Tube Sodium Chloride 10 ml 03/20/19 10:00 04/02/19 10:09 Sodium Chloride Flush Syringe 10 Ml IV 10 ml BID YUSUF Administration Sodium Chloride 10 ml 03/19/19 23:58 Sodium Chloride Flush Syringe 10 Ml IV PRN PRN LINE FLUSH Nutrition/Malnutrition Assess - Dietary Evaluation Nutrition/Malnutrition Findings: Nutrition Notes Start: 03/20/19 15:29 Freq: Status: Active Protocol: Document 03/31/19 16:37 RM (Rec: 03/31/19 16:39 RM [email or web address]) Nutrition Notes Initial or Follow up Reassessment Other Pertinent Diagnosis Hx CVA, dementia, R buttock skin tear Current Diet Vital 1.2 at 45 ml/hr Labs/Tests Reviewed Pertinent Medications Reviewed Height 5 ft 5 in Weight 61 kg [place] Body Weight (kg) 56.81 BMI 22.4 Subjective/Other Information Observed Vital 1.2 infusing at goal rate. Per nurse is pt tolerating TF. Percent of energy/protein needs met: 95%/100% Burn Absent Trauma Absent #1 Nutrition Diagnosis Inadequate oral intake Diagnosis Progress(for reassessment Continues documentation) Is patient on ventilator? Yes Is Patient Ambulatory and/or Out of Bed No REE-([facility]-confined to bed) [phone] Calculation Used for Recommendations [facility] Additional Notes Protein Needs: 75-124g (1.2-2g /kg) Fluid Needs: 1 ml/kcal Nutrition Intervention Nutrition Support: Vital 1.2 at 45 ml/hr Water flush of 100 mls 4 q hrs Kcal 1,296 Protein (gm) 81 Fluid (mL) 876 Goal #1 TF tolerance Goal #2 Continue to meet at least 80% of calorie and protein needs via TF Anticipated Discharge Needs: Unable to determine at this time Follow-Up By: 04/07/19 Additional Comments Follow for TF tolerance
[2019-04-03] MEDS: HumaLOG SUB-Q SCH ×4 (00:39→19:39)
[2019-04-03] MEDS: TYLENOL FEEDTUBE PRN ×2 (00:54→16:30)
[2019-04-03] MEDS: SIMPLE SYRUP FEEDTUBE PRN (00:55)
[2019-04-03] MEDS: DUONEB *Not for PRN Use IH SCH ×4 (01:21→20:24)
[2019-04-03] MEDS: MERREM 1,000 MG in NACL 0.9% 100 ML IV SCH ×3 (06:10→21:01)
[2019-04-03 06:36] LABS: Basophils % (Auto) 0.5 % (0.0-1.8); Eosinophils # (Auto) 0.4 K/mm3 (0.0-0.4); Eosinophils % (Auto) 7.4 % (0.0-4.3); Hematocrit 20.5 % (30.3-42.9); Hemoglobin 6.8 gm/dl (10.1-14.3); Lymphocytes # (Auto) 1.4 K/mm3 (1.2-5.4); Lymphocytes % (Auto) 23.7 % (13.4-35.0); Mean Corpuscular HGB Conc 33 % (30-34); Mean Corpuscular Volume 98 fl (79-97); Monocytes # (Auto) 0.7 K/mm3 (0.0-0.8); Monocytes % (Auto) 12.1 % (0.0-7.3); Platelet Count 251 K/mm3 (140-440); Red Blood Count 2.11 M/mm3 (3.65-5.03); Red Cell Distribution Width 17.6 % (13.2-15.2)
[2019-04-03] MEDS: PULMICORT IH SCH ×2 (07:53→20:24)
--- NOTE | 2019-04-03 08:14 | Progress Note ---
Assessment and Plan Assessment and plan: --DO NOT RESUSCITATE status --Acute hypoxic respiratory Failure intubated : Vent dependent >96hrs Pulm cr care following, if unable to wean,patient may need trach and PEG --Severe Anemia: Drop in H/H Patient is symmetrical and soft PRBC Hemoglobin today 6.8 however repeat lab 7.3 Closely monitor and transfuse as needed --Digoxin toxicity;supratherapeutic level, off digoxin --Acute Right common femoral DVT and right IJ vein thrombosis argatroban drip dced due to severe anemia[requiring transfusion] Anticoagulation decision per hematology --Acute metabolic encephalopathy, cont supportive care, CT head negative --Sepsis due to aspiration pneumonia; Continue current vancomycin meropenem ID following --Septic shock: off pressor, BP now stable --Paroxysmal Atrial fib, Now NSR on amioderone,metoprolol digoxin held --HA (acute kidney injury), atn and vasomotor nephrology, poa: Resolved, Nephrology evaluated --Anemia, status post 2 units of PRBC transfusion Monitor H&H and transfuse additional as needed --Hypernatremia: Present on admission, resolved --Hypomagnesemia: replace per protocol --Elevated troponin level/ NSTEMI II; conservative management --DVT prophylaxis --DNR status. Patient is vent dependent critically ill, poor prognosis recommended hospice,Family history accepted hospice Now family changed their mind, considering her tympanic Stent placement Monitor closely and adjust management as needed Disposition; Disposition; Trach and PEG and possible SNF placement vs Inpt Hospice placement when family decides. CCT 33 minutes Brief History Patient is a 73 yo woman without a clear past medical history due to patient presentation of being Altered requiring intubation upon admission. Upon arrival to the emergency room, the patient is obtunded, breathing without difficulty, desaturating, without a gag reflex. Therefore, patient placed on nasal cannula at 15 L/m, and then intubated without difficulty. Patient started empirically on the sepsis pathway, with broad-spectrum antibiotics, aggressive IV fluids, and post intubation sedation package. She is difficult to wean off from vent, s/p bronch today, venous doppler showed right internal jugular vein thrombus associated with right internal jugular vein triple lumen catheter and right common femoral vein DVT. Patient was on anticoagulation however had significant anemia requiring blood transfusion as argatroban discontinued. Patient is unable to wean with poor prognosis, family requested DO NOT RESUSCITATE status And initially decided hospice, however they changed their mind and now considering trach and PEG and SNF placement. * pCXR ;SUPPORT DEVICES: Endotracheal tube is in place in good position above the liam. HEART / MEDIASTINUM: No significant abnormality. LUNGS / PLEURA: There is moderate bibasilar lung consolidation and slight right upper lobe consolidation as well. No edema or effusions. No pneumothorax. ADDITIONAL FI NDINGS: No significant additional findings. IMPRESSION: 1. Endotracheal tube in good position. * CT head without contrast IMPRESSION: Encephalomalacia in the entire right cerebral hemisphere Volume loss in the left cerebral hemisphere, n0 acute parenchymal lesion in the brain. History Interval history: Patient seen and examined medical records reviewed Patient remains intubated, vent dependent DO NOT RESUSCITATE status, initially the family was awaiting inpatient hospice placement However case management reports that family has decided not to consider hospice anymore Plan the plan to discuss about trach and PEG The patient is alert and awake, cachectic Vital signs reviewed Hospitalist Physical - Constitutional Vitals: Temp Pulse Resp BP Pulse Ox 101.6 F H 114 H 25 H 102/50 100 04/03/19 03:44 04/03/19 07:56 04/03/19 07:56 04/03/19 07:47 04/03/19 07:47 General appearance: Present: no acute distress, well-nourished, other (intubated on vent) - EENT Eyes: Present: PERRL, EOM intact - Neck Neck: Present: supple, normal ROM - Respiratory Respiratory effort: normal Respiratory: bilateral: diminished, rhonchi, negative: rales, wheezing - Cardiovascular Rhythm: regular Heart Sounds: Present: S1 & S2 - Extremities Extremities: no ischemia, No edema - Abdominal General gastrointestinal: soft, non-tender, non-distended, normal bowel sounds - Integumentary Integumentary: Present: clear, warm - Psychiatric Psychiatric: other (intubated on vent) - Neurologic Neurologic: moves all extremities, other (intubated on vent) Results - Labs CBC & Chem 7: 04/03/19 08:22 03/29/19 04:40 Labs: Laboratory Last Values WBC 6.0 K/mm3 (4.5-11.0) 04/03/19 06:15 RBC 2.11 M/mm3 (3.65-5.03) L 04/03/19 06:15 Hgb 6.8 gm/dl (10.1-14.3) L 04/03/19 06:15 Hct 20.5 % (30.3-42.9) L 04/03/19 06:15 MCV 98 fl (79-97) H 04/03/19 06:15 MCH 32 pg (28-32) 04/03/19 06:15 MCHC 33 % (30-34) 04/03/19 06:15 RDW 17.6 % (13.2-15.2) H 04/03/19 06:15 Plt Count 251 K/mm3 (140-440) 04/03/19 06:15 Lymph % (Auto) 23.7 % (13.4-35.0) 04/03/19 06:15 [place] % (Auto) 12.1 % (0.0-7.3) H 04/03/19 06:15 Eos % (Auto) 7.4 % (0.0-4.3) H 04/03/19 06:15 Baso % (Auto) 0.5 % (0.0-1.8) 04/03/19 06:15 Lymph # 1.4 K/mm3 (1.2-5.4) 04/03/19 06:15 [place] # 0.7 K/mm3 (0.0-0.8) 04/03/19 06:15 Eos # 0.4 K/mm3 (0.0-0.4) 04/03/19 06:15 Baso # 0.0 K/mm3 (0.0-0.1) 04/03/19 06:15 Add Manual Diff Complete 03/28/19 01:05 Total Counted 100 03/28/19 01:05 Seg Neutrophils % 56.3 % (40.0-70.0) 04/03/19 06:15 Seg Neuts % (Manual) 84.0 % (40.0-70.0) H 03/28/19 01:05 0 % 03/28/19 01:05 10.0 % (13.4-35.0) L 03/28/19 01:05 Reactive Lymphs % (Man) 0 % 03/28/19 01:05 3.0 % (0.0-7.3) 03/28/19 01:05 2.0 % (0.0-4.3) 03/28/19 01:05 1.0 % (0.0-1.8) 03/28/19 01:05 0 % 03/28/19 01:05 0 % 03/28/19 01:05 0 % 03/28/19 01:05 0 % 03/28/19 01:05 Nucleated RBC % Not Reportable 03/28/19 01:05 Seg Neutrophils # 3.4 K/mm3 (1.8-7.7) 04/03/19 06:15 Seg Neutrophils # Man 12.1 K/mm3 (1.8-7.7) H 03/28/19 01:05 Band Neutrophils # 0.0 K/mm3 03/28/19 01:05 1.4 K/mm3 (1.2-5.4) 03/28/19 01:05 Abs React Lymphs (Man) 0.0 K/mm3 03/28/19 01:05 0.4 K/mm3 (0.0-0.8) 03/28/19 01:05 0.3 K/mm3 (0.0-0.4) 03/28/19 01:05 0.1 K/mm3 (0.0-0.1) 03/28/19 01:05 0.0 K/mm3 03/28/19 01:05 0.0 K/mm3 03/28/19 01:05 0.0 K/mm3 03/28/19 01:05 Blast Cells # 0.0 K/mm3 03/28/19 01:05 WBC Morphology Not Reportable 03/28/19 01:05 Hypersegmented Neuts Not Reportable 03/28/19 01:05 Hyposegmented Neuts Not Reportable 03/28/19 01:05 Hypogranular Neuts Not Reportable 03/28/19 01:05 Not Reportable 03/28/19 01:05 Not Reportable 03/28/19 01:05 Not Reportable 03/28/19 01:05 Not Reportable 03/28/19 01:05 Not Reportable 03/28/19 01:05 Not Reportable 03/28/19 01:05 Not Reportable 03/28/19 01:05 Not Reportable 03/28/19 01:05 Plt Clumps, EDTA Not Reportable 03/28/19 01:05 Not Reportable 03/28/19 01:05 Not Reportable 03/28/19 01:05 Not Reportable 03/28/19 01:05 Plt Morphology Comment Not Reportable 03/28/19 01:05 RBC Morphology Normal 03/28/19 01:05 Dimorphic RBCs Not Reportable 03/28/19 01:05 Not Reportable 03/28/19 01:05 Not Reportable 03/28/19 01:05 Not Reportable 03/28/19 01:05 Not Reportable 03/28/19 01:05 Not Reportable 03/28/19 01:05 Not Reportable 03/28/19 01:05 Not Reportable 03/28/19 01:05 Not Reportable 03/28/19 01:05 Not Reportable 03/28/19 01:05 Not Reportable 03/28/19 01:05 Not Reportable 03/28/19 01:05 Not Reportable 03/28/19 01:05 Not Reportable 03/28/19 01:05 Not Reportable 03/28/19 01:05 Not Reportable 03/28/19 01:05 Not Reportable 03/28/19 01:05 Not Reportable 03/28/19 01:05 Not Reportable 03/28/19 01:05 Not Reportable 03/28/19 01:05 Acanthocytes (Spur) Not Reportable 03/28/19 01:05 Rouleaux Not Reportable 03/28/19 01:05 Not Reportable 03/28/19 01:05 Not Reportable 03/28/19 01:05 Not Reportable 03/28/19 01:05 Not Reportable 03/28/19 01:05 Hem Pathologist Commnt No 03/28/19 01:05 PT 21.4 Sec. (12.2-14.9) H 03/27/19 14:04 INR 1.90 (0.87-1.13) H 03/27/19 14:04 APTT 50.5 Sec. (24.2-36.6) H 03/30/19 11:15 Heparin Anti-Xa, Unfract Negative (Negative) 03/27/19 13:30 POC ABG pH 7.411 (7.35-7.45) 03/25/19 05:40 POC ABG pCO2 33.3 (35-45) L 03/23/19 05:25 POC ABG pO2 83 (80-105) 03/25/19 05:40 POC ABG HCO3 17.7 (22-26 mml/L) 03/25/19 05:40 POC ABG Total CO2 19 (23-27mmol/L) 03/25/19 05:40 POC ABG O2 Sat 97 03/25/19 05:40 POC ABG Base Excess -7 ((-2) - (+3)mmol/L) 03/25/19 05:40 30 % 03/25/19 05:40 Sodium 140 mmol/L (137-145) 03/29/19 04:40 Potassium 3.7 mmol/L (3.6-5.0) 03/29/19 04:40 Chloride 102.9 mmol/L (98-107) 03/29/19 04:40 Carbon Dioxide 31 mmol/L (22-30) H 03/29/19 04:40 10 mmol/L 03/29/19 04:40 BUN 22 mg/dL (7-17) H 03/29/19 04:40 0.5 mg/dL (0.7-1.2) L 03/29/19 04:40 Estimated GFR > 60 ml/min 03/29/19 04:40 44 % 03/29/19 04:40 Glucose 80 mg/dL (65-100) 03/29/19 04:40 POC Glucose 98 (70-105) 04/03/19 06:26 4.2 % (4-6) 03/20/19 08:23 Lactic Acid 2.00 mmol/L (0.7-2.0) 03/23/19 04:50 Calcium 8.0 mg/dL (8.4-10.2) L 03/29/19 04:40 Phosphorus 2.00 mg/dL (2.5-4.5) L 03/20/19 17:50 Magnesium 1.70 mg/dL (1.7-2.3) 03/21/19 04:12 Iron 32 ug/dL (37-170) L 03/24/19 14:25 TIBC 75 mcg/dL (250-450) L 03/24/19 14:25 448.3 ng/mL (13.0-400.0) H 03/28/19 07:31 0.50 mg/dL (0.1-1.2) 03/29/19 04:40 0.3 mg/dL (0-0.2) H 03/27/19 13:31 0.2 mg/dL 03/27/19 13:31 AST 23 units/L (5-40) 03/29/19 04:40 ALT 9 units/L (7-56) 03/29/19 04:40 103 units/L (35-129) 03/29/19 04:40 1499 units/L (30-135) H 03/19/19 12:59 0.036 ng/mL (0.00-0.029) H 03/22/19 06:10 5.0 g/dL (6.3-8.2) L 03/29/19 04:40 1.4 g/dL (3.9-5) L 03/29/19 04:40 0.4 % 03/29/19 04:40 0.052 g/L (0.200-0.400) L 03/20/19 08:23 Triglycerides 72 mg/dL (2-149) 03/19/19 12:59 Cholesterol 61 mg/dL (50-199) 03/19/19 12:59 22 mg/dL (50-130) L 03/19/19 12:59 31 mg/dL (40-59) L 03/19/19 12:59 1.96 % 03/19/19 12:59 See scanned result 03/27/19 13:30 Vitamin B12 > 2000 pg/mL (211-911) H 03/25/19 10:11 18.61 ng/mL (7.3-26.0) 03/28/19 07:31 TSH 7.810 mlU/mL (0.270-4.200) H 03/22/19 06:10 Free T4 1.21 ng/dL (0.76-1.46) 03/22/19 06:10 PTH Intact 171.6 pg/mL (15-65) H 03/20/19 17:50 Yellow (Yellow) 03/19/19 12:47 Clear (Clear) 03/19/19 12:47 5.0 (5.0-7.0) 03/19/19 12:47 Ur Specific [place] 1.010 (1.003-1.030) 03/19/19 12:47 <15 mg/dl mg/dL (Negative) 03/19/19 12:47 50 mg/dL (Negative) 03/19/19 12:47 Neg mg/dL (Negative) 03/19/19 12:47 Lg (Negative) 03/19/19 12:47 Neg (Negative) 03/19/19 12:47 Neg (Negative) 03/19/19 12:47 < 2.0 mg/dL (<2.0) 03/19/19 12:47 Ur Leukocyte Esterase Neg (Negative) 03/19/19 12:47 2.0 /HPF (0.0-6.0) 03/19/19 12:47 2.0 /HPF (0.0-6.0) 03/19/19 12:47 U Epithel Cells (Auto) 1.0 /HPF (0-13.0) 03/19/19 12:47 1+ /HPF (Negative) 03/19/19 12:47 Hyaline Casts 3 /LPF 03/19/19 12:47 Few /HPF 03/19/19 12:47 None seen (None Seen) 03/20/19 16:40 53.7 mg/dL (0.1-20.0) H 03/20/19 16:40 3.8 mg/dL (0.1-34.0) 03/20/19 16:40 Microalb/Creat Ratio 70.7 ug/mg 03/20/19 16:40 116 mmol/L 03/20/19 16:40 36 mg/dL (5-11.8) H 03/20/19 16:40 Vancomycin Trough 23.0 ug/mL (5.0-20.0) H 03/27/19 09:04 Digoxin 2.6 ng/mL (0.9-2.0) H* 03/30/19 04:42 Salicylates < 0.3 mg/dL (2.8-20.0) L 03/19/19 12:59 Acetaminophen < 5.0 ug/mL (10.0-30.0) L 03/19/19 12:59 Heparin-induced Plt Ab Negative (Negative) 03/27/19 13:30 UF Heparin High Dose 0 % Release 03/27/19 13:30 SEMAJ UFH Low Dose 0.1 0 % Release 03/27/19 13:30 SEMAJ UFH Low Dose 0.5 0 % Release 03/27/19 13:30 Blood Type O POSITIVE 03/30/19 07:04 Antibody Screen Negative 03/30/19 07:04 Crossmatch See Detail 03/30/19 07:04 Active Medications - Current Medications Current Medications: Generic Name Dose Route Start Last Admin Trade Name Freq PRN Reason Stop Dose Admin Acetaminophen 650 mg 03/24/19 23:48 04/03/19 00:54 Tylenol FEEDTUBE 650 mg Q6H PRN Administration Fever >101 Albuterol 2.5 mg 03/19/19 23:58 Proventil IH Q3HRT PRN Shortness Of Breath Albuterol/Ipratropium 1 ampul 03/20/19 02:00 04/03/19 07:53 Duoneb *Not For Prn Use* IH 1 ampul Q6HRT YUSUF Administration Amiodarone HCl 200 mg 03/22/19 22:00 04/02/19 22:16 Cordarone PO 200 mg BID YUSUF Administration Lipase/Protease/Amylase 1 each 03/22/19 16:03 Pancreaztiti [place] 10,500 Unit FEEDTUBE PRN PRN For Clogged Feeding Tube Aspirin 81 mg 03/21/19 10:00 04/02/19 10:08 Baby Aspirin PO 81 mg DAILY YUSUF Administration Budesonide 0.5 mg 03/19/19 23:45 04/03/19 07:53 Pulmicort IH 0.5 mg Q12HRT YUSUF Administration Dextrose 50 ml 03/19/19 23:58 03/21/19 16:29 D50w (25gm) Syringe IV 50 ml PRN PRN Administration Hypoglycemia Famotidine 20 mg 03/22/19 10:00 04/02/19 22:17 Pepcid PO 20 mg BID YUSUF Administration Fentanyl 50 mcg 03/19/19 12:45 03/19/19 13:26 Sublimaze IV 50 mcg Q10MIN PRN Administration ANALGESIA Hydromorphone HCl 0.5 mg 03/19/19 23:58 Dilaudid IV Q3H PRN Pain , Severe (7-10) Hydrophilic Ointment 1 applic 03/19/19 12:45 Vaseline Lip Therapy TP Q2HR PRN Dry Lips Fentanyl Citrate 2,000 mcg in 100 mls @ 2.835 mls/hr 03/19/19 14:00 03/21/19 11:33 Fentanyl Drip Premix IV 0 mcg/kg/hr TITR YUSUF 0 mls/hr Titration Protocol 1 MCG/KG/HR Norepinephrine 4 mg in 250 mls @ 7.5 mls/hr 03/25/19 11:00 03/30/19 23:45 Levophed Drip 4 Mg/Ns 250 Ml IV 0 mcg/min TITR YUSUF 0 mls/hr Titration Protocol 2 MCG/MIN Meropenem 1,000 mg/ Sodium 100 mls @ 100 mls/hr 03/26/19 15:00 04/03/19 06:10 Chloride IV 100 mls/hr Q8HR YUSUF Administration Protocol Vancomycin HCl 1,250 mg/ 275 mls @ 166.667 mls/hr 03/30/19 13:00 04/02/19 10:13 Sodium Chloride IV 166.667 mls/hr Q24HR YUSUF Administration Insulin Human Lispro 0 unit 03/20/19 00:00 04/03/19 06:22 Humalog SUB-Q Not Given Q6HR YUSUF Protocol Metoclopramide HCl 5 mg 03/20/19 00:12 Reglan IV Q6H PRN Nausea And Vomiting Metoprolol Tartrate 2.5 mg 03/23/19 13:17 03/24/19 21:20 Lopressor IV 2.5 mg Q2HR PRN Administration HR >150 Multi-Ingred Cream/Lotion/Oil/Oint 1 applic 03/19/19 12:45 Artificial Tears Ophth Oint OU Q4HR PRN Dry Eye(s) Ondansetron HCl 4 mg 03/19/19 23:58 Zofran IV Q8H PRN Nausea And Vomiting Promethazine HCl 25 mg 03/19/19 23:58 Phenergan [place] Q6H PRN N/V IF NPO AND NO IV ACCESS Simple Syrup 15 ml 03/22/19 16:03 04/03/19 00:55 Simple Syrup FEEDTUBE 15 ml PRN PRN Administration Hypoglycemia Simple Syrup 30 ml 03/22/19 16:03 Simple Syrup FEEDTUBE PRN PRN Hypoglycemia Sodium Bicarbonate 325 mg 03/22/19 16:03 Sodium Bicarbonate FEEDTUBE PRN PRN For Clogged Feeding Tube Sodium Chloride 10 ml 03/20/19 10:00 04/02/19 22:17 Sodium Chloride Flush Syringe 10 Ml IV 10 ml BID YUSUF Administration Sodium Chloride 10 ml 03/19/19 23:58 Sodium Chloride Flush Syringe 10 Ml IV PRN PRN LINE FLUSH Nutrition/Malnutrition Assess - Dietary Evaluation Nutrition/Malnutrition Findings: Nutrition Notes Start: 03/20/19 15:29 Freq: Status: Active Protocol: Document 03/31/19 16:37 RM (Rec: 03/31/19 16:39 RM [id number]) Nutrition Notes Initial or Follow up Reassessment Other Pertinent Diagnosis Hx CVA, dementia, R buttock skin tear Current Diet Vital 1.2 at 45 ml/hr Labs/Tests Reviewed Pertinent Medications Reviewed Height 5 ft 5 in Weight 61 kg [place] Body Weight (kg) 56.81 BMI 22.4 Subjective/Other Information Observed Vital 1.2 infusing at goal rate. Per nurse is pt tolerating TF. Percent of energy/protein needs met: 95%/100% Burn Absent Trauma Absent #1 Nutrition Diagnosis Inadequate oral intake Diagnosis Progress(for reassessment Continues documentation) Is patient on ventilator? Yes Is Patient Ambulatory and/or Out of Bed No REE-([facility]-confined to bed) 1357.140 Calculation Used for Recommendations [facility] Additional Notes Protein Needs: 75-124g (1.2-2g /kg) Fluid Needs: 1 ml/kcal Nutrition Intervention Nutrition Support: Vital 1.2 at 45 ml/hr Water flush of 100 mls 4 q hrs Kcal 1,296 Protein (gm) 81 Fluid (mL) 876 Goal #1 TF tolerance Goal #2 Continue to meet at least 80% of calorie and protein needs via TF Anticipated Discharge Needs: Unable to determine at this time Follow-Up By: 04/07/19 Additional Comments Follow for TF tolerance
--- NOTE | 2019-04-03 08:34 | Hem/Onc Progress Note ---
Assessment and Plan low plt - since admission DVT was on home hospice 1. Thrombocytopenia. This may be secondary to medications. The platelets were even low at admission. The differential includes infection versus a marrow issue. At this time, platelets are adequate, we will follow the trend. Because of clinical suspicion, HIT test has been ordered. Argatroban ordered. Heparin has been stopped. 2. Pneumonia. 3. Encephalopathy. 4. Respiratory failure, on vent. 5. Renal impairment. 6. Deep vein thrombosis. Her immobilization may have a role. Central line also may have a role. the patient was on Argatroban. Once HIT antibody is negative, we will look into changing to oral anticoagulation like Eliquis or Xarelto. Her thrombocytopenia may complicate, the patient had low platelet even at admission. IVC filter may prevent the leg DVT from progression to PE; however, for IJ DVT, we have limited options. The patient was on home hospice as per notes. Atrial fibrillation, she was on medications. History of anemia, deficiency investigations. Leukocytosis, likely reactive. B12 level more than 2000, serum iron 32. HIT antibody done on 03/27 anemia - IV iron trial 04/03/2019 anemia - off argatroban PRBC - d/w dr nixon d/w family reg the pt - Patient Problems (1) Thrombocytopenia Current Visit: Yes Status: Acute Subjective Date of service: 04/03/19 Principal diagnosis: anemia Interval history: hb lower - on vent Objective - Exam Narrative Exam: Pain - none - on vent General appearance intubated Performance status - complete help needed Eyes - no icterus ENT no thrush LNs cervical not palpable Neck - no LNs/mass Respiratory Normal Breath sounds - CTA anteriorly CVS S1 S2 + Extremities normal temperature - flaccid General GI Soft - distended Rectal deferred female - deferred Skin warm Musculoskeletal not able to evaluate Neurologically - on vent - Constitutional Vitals: Last Vital Signs Temp 101.6 F H 04/03/19 03:44 Pulse 114 H 04/03/19 07:56 Resp 25 H 04/03/19 07:56 BP 102/50 04/03/19 07:47 Pulse Ox 100 04/03/19 07:47 - Labs Lab Results: Laboratory Results - last 24 hr 04/02/19 04/02/19 04/03/19 08:33 11:29 06:15 WBC 6.0 RBC 2.11 L Hgb 7.8 L 6.8 L Hct 23.1 L 20.5 L MCV 98 H MCH 32 MCHC 33 RDW 17.6 H Plt Count 251 251 Lymph % (Auto) 23.7 [place] % (Auto) 12.1 H Eos % (Auto) 7.4 H Baso % (Auto) 0.5 Lymph # 1.4 [place] # 0.7 Eos # 0.4 Baso # 0.0 Seg Neutrophils % 56.3 Seg Neutrophils # 3.4 POC Glucose 84 04/03/19 06:26 WBC RBC Hgb Hct MCV MCH MCHC RDW Plt Count Lymph % (Auto) [place] % (Auto) Eos % (Auto) Baso % (Auto) Lymph # [place] # Eos # Baso # Seg Neutrophils % Seg Neutrophils # POC Glucose 98 Medications & Allergies - Medications Allergies/Adverse Reactions: Allergies No Known Allergies Allergy (Unverified 03/19/19 13:11) Home Medications: Home Medications Medication Instructions Recorded Confirmed Last Taken Type Aspirin EC 81 mg PO DAILY 03/20/19 03/20/19 Unknown History Divalproex Sodium 375 mg PO Q8H PRN 03/20/19 03/20/19 Unknown History Metoprolol [Lopressor TAB] 50 mg PO BID 03/20/19 03/20/19 Unknown History Sennosides/Docusate Sodium [Senna 8.6 mg PO BID PRN 03/20/19 03/20/19 Unknown History Plus Tablet] levETIRAcetam [Keppra TAB] 500 mg PO BID 03/20/19 03/20/19 Unknown History Active Medications: Generic Name Dose Route Start Last Admin Trade Name Manq PRN Reason Stop Dose Admin Acetaminophen 650 mg 03/24/19 23:48 04/03/19 00:54 Tylenol FEEDTUBE 650 mg Q6H PRN Administration Fever >101 Albuterol 2.5 mg 03/19/19 23:58 Proventil IH Q3HRT PRN Shortness Of Breath Albuterol/Ipratropium 1 ampul 03/20/19 02:00 04/03/19 07:53 Duoneb *Not For Prn Use* IH 1 ampul Q6HRT YUSUF Administration Amiodarone HCl 200 mg 03/22/19 22:00 04/02/19 22:16 Cordarone PO 200 mg BID YUSUF Administration Lipase/Protease/Amylase 1 each 03/22/19 16:[address] 10,500 Unit FEEDTUBE PRN PRN For Clogged Feeding Tube Aspirin 81 mg 03/21/19 10:00 04/02/19 10:08 Baby Aspirin PO 81 mg DAILY YUSUF Administration Budesonide 0.5 mg 03/19/19 23:45 04/03/19 07:53 Pulmicort IH 0.5 mg Q12HRT YUSUF Administration Dextrose 50 ml 03/19/19 23:58 03/21/19 16:29 D50w (25gm) Syringe IV 50 ml PRN PRN Administration Hypoglycemia Famotidine 20 mg 03/22/19 10:00 04/02/19 22:17 Pepcid PO 20 mg BID YUSUF Administration Fentanyl 50 mcg 03/19/19 12:45 03/19/19 13:26 Sublimaze IV 50 mcg Q10MIN PRN Administration ANALGESIA Hydromorphone HCl 0.5 mg 03/19/19 23:58 Dilaudid IV Q3H PRN Pain , Severe (7-10) Hydrophilic Ointment 1 applic 03/19/19 12:45 Vaseline Lip Therapy TP Q2HR PRN Dry Lips Fentanyl Citrate 2,000 mcg in 100 mls @ 2.835 mls/hr 03/19/19 14:00 03/21/19 11:33 Fentanyl Drip Premix IV 0 mcg/kg/hr TITR YUSUF 0 mls/hr Titration Protocol 1 MCG/KG/HR Norepinephrine 4 mg in 250 mls @ 7.5 mls/hr 03/25/19 11:00 03/30/19 23:45 Levophed Drip 4 Mg/Ns 250 Ml IV 0 mcg/min TITR YUSUF 0 mls/hr Titration Protocol 2 MCG/MIN Meropenem 1,000 mg/ Sodium 100 mls @ 100 mls/hr 03/26/19 15:00 04/03/19 06:10 Chloride IV 100 mls/hr Q8HR YUSUF Administration Protocol Vancomycin HCl 1,250 mg/ 275 mls @ 166.667 mls/hr 03/30/19 13:00 04/02/19 10:13 Sodium Chloride IV 166.667 mls/hr Q24HR YUSUF Administration Insulin Human Lispro 0 unit 03/20/19 00:00 04/03/19 06:22 Humalog SUB-Q Not Given Q6HR [facility] Protocol Metoclopramide HCl 5 mg 03/20/19 00:12 Reglan IV Q6H PRN Nausea And Vomiting Metoprolol Tartrate 2.5 mg 03/23/19 13:17 03/24/19 21:20 Lopressor IV 2.5 mg Q2HR PRN Administration HR >150 Multi-Ingred Cream/Lotion/Oil/Oint 1 applic 03/19/19 12:45 Artificial Tears Ophth Oint OU Q4HR PRN Dry Eye(s) Ondansetron HCl 4 mg 03/19/19 23:58 Zofran IV Q8H PRN Nausea And Vomiting Promethazine HCl 25 mg 03/19/19 23:58 Phenergan [place] Q6H PRN N/V IF NPO AND NO IV ACCESS Simple Syrup 15 ml 03/22/19 16:03 04/03/19 00:55 Simple Syrup FEEDTUBE 15 ml PRN PRN Administration Hypoglycemia Simple Syrup 30 ml 03/22/19 16:03 Simple Syrup FEEDTUBE PRN PRN Hypoglycemia Sodium Bicarbonate 325 mg 03/22/19 16:03 Sodium Bicarbonate FEEDTUBE PRN PRN For Clogged Feeding Tube Sodium Chloride 10 ml 03/20/19 10:00 04/02/19 22:17 Sodium Chloride Flush Syringe 10 Ml IV 10 ml BID YUSUF Administration Sodium Chloride 10 ml 03/19/19 23:58 Sodium Chloride Flush Syringe 10 Ml IV PRN PRN LINE FLUSH
[2019-04-03 08:42] LABS: Hematocrit 21.9 % (30.3-42.9); Hemoglobin 7.3 gm/dl (10.1-14.3)
[2019-04-03] MEDS: CORDARONE PO SCH ×2 (09:41→21:01)
[2019-04-03] MEDS: BABY ASPIRIN PO SCH (09:41)
[2019-04-03] MEDS: PEPCID PO SCH ×2 (09:41→21:01)
[2019-04-03] MEDS: VANCOMYCIN 1,250 MG in NACL 0.9% 250ML 250 ML IV SCH (09:42)
[2019-04-03] MEDS: SODIUM CHLORIDE FLUSH SYRINGE 10 ML IV SCH ×2 (09:42→22:45)
--- NOTE | 2019-04-03 12:28 | Progress Note ---
Assessment and Plan Cultures/ID related labs: 03/27 tracheal aspirate - heavy neutrophils, usual resp maday Blood culture 03/19/2019 negative. Urine culture 03/19/2019 negative. 03/23/2019 tracheal aspirate culture: Usual resp maday Assessment: 73 y/o female with history of dementia, prior CVA, on home hospice admitted on 03/20/2019 brought by EMS due to altered mental status: 1) Sepsis with septic shock: source pneumonia but persistent fever. UA negative . Blood culture 03/19/2019 no growth. Urine culture 03/19/2019 negative. Would continue meropenem for now and monitor for improvement, likely for 8 day course. Resp culture sterilized. Added vancomycin 03/30 2) Bilateral pneumonia: ? aspiration v/s CAP. Trach aspirate cultures usual resp maday, <25 WBC. 3) Acute encephalopathy: CT head without contrast shows encephalomalacia in the entire right cerebral hemisphere, volume loss in the left cerebral hemisphere, no acute parenchymal lesion in the brain. 4) Acute respiratory failure: remains intubated, on the vent. Responsive to commands today. 5) HA: improved. 6) Persistent fevers - Possible drug fever. Would complete today's antibiotic dosing and stop tomorrow, and monitor off therapy. 7) DVTs - DVT of RIJ at catheter site as well as R common femoral, and a superficial thrombus in R greater saphenous Will continue to follow along with you. Recommendations: continue IV Meropenem 1 gm q8 hrs (start date: 03/26/19) Continue vancomycin (start date: 03/30/19) Guarded prognosis, was on home hospice prior to admission will stop antibiotics in the morning. Sandra Johns MD [facility] ([facility] C: [phone] O: [phone] F: [phone] Subjective Date of service: 04/03/19 Principal diagnosis: dvt - anemia Interval history: Remains intubated. Weakly responsive to commands. Fevers ongoing. at bedside. Objective - Exam Narrative Exam: Constitutional: asleep, no distress, weakly following commands Head, Ears, Nose: Normocephalic, atraumatic. External ears, nose normal Eyes: Conjunctivae/corneas clear. No icterus. No ptosis. Neck: Supple, no meningeal signs Oral: Intubated Cardiovascular: S1, S2 normal. Normal rhythm Respiratory: Good air entry, clear to auscultation bilaterally GI: Soft, non-tender; bowel sounds normal. No peritoneal signs Musculoskeletal: No pedal edema, Skin: No rash or abscess Hem/Lymphatic: No palpable cervical or supraclavicular nodes. No lymphangitis Psych: no agitation Neurological: weak, 3/5 strength extremities. Restrained - Constitutional Vitals: Vital Signs Temp Pulse Resp BP Pulse Ox 100.7 F H 117 H 20 155/77 99 04/03/19 12:00 04/03/19 12:00 04/03/19 12:00 04/03/19 12:00 04/03/19 12:00 Temperature -Last 24 Hours Temperature 100.7 F Temperature 100.2 F Temperature 101.6 F Temperature 102 F Temperature 101.4 F Temperature 99.1 F Temperature 98.1 F - Labs CBC & Chem 7: 04/03/19 08:22 03/29/19 04:40 Labs: Abnormal lab results 04/03/19 04/03/19 Range/Units 06:15 08:22 RBC 2.11 L (3.65-5.03) M/mm3 Hgb 6.8 L 7.3 L (10.1-14.3) gm/dl Hct 20.5 L 21.9 L (30.3-42.9) % MCV 98 H (79-97) fl RDW 17.6 H (13.2-15.2) % [place] % (Auto) 12.1 H (0.0-7.3) % Eos % (Auto) 7.4 H (0.0-4.3) %
--- NOTE | 2019-04-03 16:09 | Progress Note ---
Assessment and Plan Imp: 1. Aspiration pneumonitis 2. Sepsis 3. Thrombocytopenia 2/2 above, better 4. Acute respiratory failure, hypoxia 5. HA/lactic acidosis, better 6. Hx of CVA 7. Acute DVT Rec: 1. ABX per ID to complete course 2. Daily PSV trials, although she has been intubated for ~ 2 weeks and I suspect will not be able to clear her airway on her own going forward, has high aspiration risk, etc.; trach/PEG would be necessary if aggressive treatment is continued, and this was discussed again with daughter today who is still trying to weigh the options; in my opinion hospice seems most appropriate as patient would require 24/7 nursing care in a SNF with little to no quality of life 3. TFs 4. Labs/CXR in AM 5. Consider resuming anticoagulation if okay with hematology/IMS; HIT is negative; would not start Eliquis or Xarelto until final decision made re: trach/PEG 6. Prognosis guarded to poor CCT 31 minutes Plan of care reviewed w/ patient's daughter Caterina by phone today, she understands/agrees Subjective Date of service: 04/03/19 Principal diagnosis: dvt - anemia Interval history: No events. Awake, alert, moves R hand/squeezes on command, and tracks w/ eyes. No obvious complaints although hx is difficult. Active Medications Acetaminophen (Tylenol) 650 mg FEEDTUBE Q6H PRN PRN Reason: Fever >101 Last Admin: 04/03/19 00:54 Dose: 650 mg Documented by: Albuterol (Proventil) 2.5 mg IH Q3HRT PRN PRN Reason: Shortness Of Breath Albuterol/Ipratropium (Duoneb *Not For Prn Use*) 1 ampul IH Q6HRT [facility] Last Admin: 04/03/19 15:19 Dose: Not Given Documented by: Amiodarone HCl (Cordarone) 200 mg PO BID [facility] Last Admin: 04/03/19 09:41 Dose: 200 mg Documented by: Lipase/Protease/Amylase (Pancretobi Sargent 10,500 Unit) 1 each FEEDTUBE PRN PRN PRN Reason: For Clogged Feeding Tube Aspirin (Baby Aspirin) 81 mg PO DAILY [facility] Last Admin: 04/03/19 09:41 Dose: 81 mg Documented by: Budesonide (Pulmicort) 0.5 mg IH Q12HRT YUSUF Last Admin: 04/03/19 07:53 Dose: 0.5 mg Documented by: Dextrose (D50w (25gm) Syringe) 50 ml IV PRN PRN PRN Reason: Hypoglycemia Last Admin: 03/21/19 16:29 Dose: 50 ml Documented by: Famotidine (Pepcid) 20 mg PO BID [facility] Last Admin: 04/03/19 09:41 Dose: 20 mg Documented by: Fentanyl (Sublimaze) 50 mcg IV Q10MIN PRN PRN Reason: ANALGESIA Last Admin: 03/19/19 13:26 Dose: 50 mcg Documented by: Hydromorphone HCl (Dilaudid) 0.5 mg IV Q3H PRN PRN Reason: Pain , Severe (7-10) Hydrophilic Ointment (Vaseline Lip Therapy) 1 applic TP Q2HR PRN PRN Reason: Dry Lips Fentanyl Citrate (Fentanyl Drip Premix) 2,000 mcg in 100 mls @ 2.835 mls/hr IV TITR [facility]; Protocol Last Titration: 03/21/19 11:33 Dose: 0 mcg/kg/hr, 0 mls/hr Documented by: Norepinephrine (Levophed Drip 4 Mg/Ns 250 Ml) 4 mg in 250 mls @ 7.5 mls/hr IV TITR [facility]; Protocol Last Titration: 03/30/19 23:45 Dose: 0 mcg/min, 0 mls/hr Documented by: Meropenem 1,000 mg/ Sodium (Chloride) 100 mls @ 100 mls/hr IV Q8HR YUSUF; Protocol Last Admin: 04/03/19 06:10 Dose: 100 mls/hr Documented by: Vancomycin HCl 1,250 mg/ (Sodium Chloride) 275 mls @ 166.667 mls/hr IV Q24HR YUSU[facility] Last Admin: 04/03/19 09:42 Dose: 166.667 mls/hr Documented by: Insulin Human Lispro (Humalog) 0 unit SUB-Q Q6HR Y[facility]; Protocol Last Admin: 04/03/19 06:22 Dose: Not Given Documented by: Metoclopramide HCl (Reglan) 5 mg IV Q6H PRN PRN Reason: Nausea And Vomiting Metoprolol Tartrate (Lopressor) 2.5 mg IV Q2HR PRN PRN Reason: HR >150 Last Admin: 03/24/19 21:20 Dose: 2.5 mg Documented by: Multi-Ingred Cream/Lotion/Oil/Oint (Artificial Tears Ophth Oint) 1 applic OU Q4HR PRN PRN Reason: Dry Eye(s) Ondansetron HCl (Zofran) 4 mg IV Q8H PRN PRN Reason: Nausea And Vomiting Promethazine HCl (Phenergan) 25 mg WA Q6H PRN PRN Reason: N/V IF NPO AND NO IV ACCESS Simple Syrup (Simple Syrup) 15 ml FEEDTUBE PRN PRN PRN Reason: Hypoglycemia Last Admin: 04/03/19 00:55 Dose: 15 ml Documented by: Simple Syrup (Simple Syrup) 30 ml FEEDTUBE PRN PRN PRN Reason: Hypoglycemia Sodium Bicarbonate (Sodium Bicarbonate) 325 mg FEEDTUBE PRN PRN PRN Reason: For Clogged Feeding Tube Sodium Chloride (Sodium Chloride Flush Syringe 10 Ml) 10 ml IV BID YUSUF Last Admin: 04/03/19 09:42 Dose: 10 ml Documented by: Sodium Chloride (Sodium Chloride Flush Syringe 10 Ml) 10 ml IV PRN PRN PRN Reason: LINE FLUSH Objective Vital Signs - 12hr 04/03/19 04/03/19 04/03/19 04:47 05:00 06:00 Temperature Pulse Rate 111 H 103 H 102 H Pulse Rate [ Anterior Bilateral Throughout] Pulse Rate [ From Monitor] Respiratory 19 16 Rate Respiratory Rate [Anterior Bilateral Throughout] Blood Pressure 110/50 91/47 89/38 O2 Sat by Pulse 98 99 Oximetry 04/03/19 04/03/19 04/03/19 07:00 07:47 07:56 Temperature Pulse Rate 101 H 103 H Pulse Rate [ 114 H Anterior Bilateral Throughout] Pulse Rate [ From Monitor] Respiratory 27 H Rate Respiratory 25 H Rate [Anterior Bilateral Throughout] Blood Pressure 102/50 102/50 O2 Sat by Pulse 100 Oximetry 04/03/19 04/03/19 04/03/19 08:00 09:00 10:00 Temperature 100.2 F H Pulse Rate 109 H 114 H 116 H Pulse Rate [ Anterior Bilateral Throughout] Pulse Rate [ 101 H From Monitor] Respiratory 20 12 22 Rate Respiratory Rate [Anterior Bilateral Throughout] Blood Pressure 122/60 128/63 134/71 O2 Sat by Pulse 97 98 99 Oximetry 04/03/19 04/03/19 04/03/19 11:00 11:39 12:00 Temperature 99.8 F H Pulse Rate 117 H 111 H 114 H Pulse Rate [ Anterior Bilateral Throughout] Pulse Rate [ 114 H From Monitor] Respiratory 24 23 Rate Respiratory Rate [Anterior Bilateral Throughout] Blood Pressure 150/69 150/69 155/77 O2 Sat by Pulse 98 100 100 Oximetry 04/03/19 04/03/19 13:00 14:00 Temperature Pulse Rate 112 H Pulse Rate [ 112 H Anterior Bilateral Throughout] Pulse Rate [ From Monitor] Respiratory 13 Rate Respiratory 24 Rate [Anterior Bilateral Throughout] Blood Pressure 140/60 O2 Sat by Pulse 100 Oximetry Constitutional: other (intubated, critically ill on ventilator, awake) Eyes: non-icteric ENT: other (intubated ) Neck: supple Effort: normal, other (poor efforts ) Ascultation: Bilateral: other (coarse BS bilaterally) Cardiovascular: other (tachy AF, no mrg) Gastrointestinal: normoactive bowel sounds, soft, non-tender, non-distended Integumentary: normal Extremities: anasarca Neurologic: other (awake, alert, L sided hemiparesis, contractures upper extremities) Psychiatric: mood appropriate, affect normal CBC and BMP: 04/03/19 08:22 03/29/19 04:40 ABG, PT/INR, D-dimer: ABG POC ABG pH 7.411 (7.35-7.45) 03/25/19 05:40 POC ABG pO2 83 (80-105) 03/25/19 05:40 POC ABG HCO3 17.7 (22-26 mml/L) 03/25/19 05:40 POC ABG Total CO2 19 (23-27mmol/L) 03/25/19 05:40 POC ABG O2 Sat 97 03/25/19 05:40 PT/INR, D-dimer PT 21.4 Sec. (12.2-14.9) H 03/27/19 14:04 INR 1.90 (0.87-1.13) H 03/27/19 14:04 Abnormal lab findings: Abnormal Labs 03/19/19 03/19/19 03/19/19 12:59 12:59 12:59 WBC RBC 3.44 L Hgb Hct MCV 101 H MCH 34 H MCHC RDW Plt Count 98 L Lymph % (Auto) [place] % (Auto) Eos % (Auto) Lymph # [place] # Seg Neutrophils % Seg Neuts % (Manual) 11.0 L Lymphocytes % (Manual) Monocytes % (Manual) 10.0 H Eosinophils % (Manual) Nucleated RBC % 1.0 H Seg Neutrophils # Seg Neutrophils # Man 0.6 L Lymphocytes # (Manual) Monocytes # (Manual) Eosinophils # (Manual) PT INR APTT POC ABG pH POC ABG pCO2 POC ABG pO2 Sodium 149 H Potassium Chloride 109.4 H Carbon Dioxide BUN 51 H Creatinine 3.2 H Glucose 58 L POC Glucose Lactic Acid 7.60 H* Calcium 7.8 L Phosphorus Magnesium 1.60 L Iron TIBC Ferritin Direct Bilirubin AST 75 H Total Creatine Kinase 1499 H Troponin T 0.109 H* Total Protein 5.2 L Albumin 1.7 L Prealbumin LDL Cholesterol Direct 22 L HDL Cholesterol 31 L Vitamin B12 TSH PTH Intact Urine Creatinine Urine Total Protein Vancomycin Trough Digoxin Salicylates Acetaminophen Crossmatch 03/19/19 03/19/19 03/19/19 12:59 12:59 14:48 WBC RBC Hgb Hct MCV MCH MCHC RDW Plt Count Lymph % (Auto) [place] % (Auto) Eos % (Auto) Lymph # [place] # Seg Neutrophils % Seg Neuts % (Manual) Lymphocytes % (Manual) Monocytes % (Manual) Eosinophils % (Manual) Nucleated RBC % Seg Neutrophils # Seg Neutrophils # Man Lymphocytes # (Manual) Monocytes # (Manual) Eosinophils # (Manual) PT INR APTT POC ABG pH POC ABG pCO2 POC ABG pO2 Sodium Potassium Chloride Carbon Dioxide BUN Creatinine Glucose POC Glucose 44 L Lactic Acid Calcium Phosphorus Magnesium Iron TIBC Ferritin Direct Bilirubin AST Total Creatine Kinase Troponin T Total Protein Albumin Prealbumin LDL Cholesterol Direct HDL Cholesterol Vitamin B12 TSH PTH Intact Urine Creatinine Urine Total Protein Vancomycin Trough Digoxin Salicylates < 0.3 L Acetaminophen < 5.0 L Crossmatch 03/19/19 03/19/19 03/19/19 15:33 15:52 16:26 WBC RBC Hgb Hct MCV MCH MCHC RDW Plt Count Lymph % (Auto) [place] % (Auto) Eos % (Auto) Lymph # [place] # Seg Neutrophils % Seg Neuts % (Manual) Lymphocytes % (Manual) Monocytes % (Manual) Eosinophils % (Manual) Nucleated RBC % Seg Neutrophils # Seg Neutrophils # Man Lymphocytes # (Manual) Monocytes # (Manual) Eosinophils # (Manual) PT INR APTT POC ABG pH POC ABG pCO2 POC ABG pO2 Sodium Potassium Chloride Carbon Dioxide BUN Creatinine Glucose POC Glucose 228 H 231 H Lactic Acid Calcium Phosphorus Magnesium Iron TIBC Ferritin Direct Bilirubin AST Total Creatine Kinase Troponin T Total Protein Albumin Prealbumin LDL Cholesterol Direct HDL Cholesterol Vitamin B12 TSH PTH Intact Urine Creatinine 31.8 H Urine Total Protein Vancomycin Trough Digoxin Salicylates Acetaminophen Crossmatch 03/19/19 03/19/19 03/19/19 16:38 17:14 18:43 WBC RBC Hgb Hct MCV MCH MCHC RDW Plt Count Lymph % (Auto) [place] % (Auto) Eos % (Auto) Lymph # [place] # Seg Neutrophils % Seg Neuts % (Manual) Lymphocytes % (Manual) Monocytes % (Manual) Eosinophils % (Manual) Nucleated RBC % Seg Neutrophils # Seg Neutrophils # Man Lymphocytes # (Manual) Monocytes # (Manual) Eosinophils # (Manual) PT INR APTT POC ABG pH 7.196 L POC ABG pCO2 30.8 L POC ABG pO2 Sodium Potassium Chloride Carbon Dioxide BUN Creatinine Glucose POC Glucose 235 H Lactic Acid 8.10 H* Calcium Phosphorus Magnesium Iron TIBC Ferritin Direct Bilirubin AST Total Creatine Kinase Troponin T Total Protein Albumin Prealbumin LDL Cholesterol Direct HDL Cholesterol Vitamin B12 TSH PTH Intact Urine Creatinine Urine Total Protein Vancomycin Trough Digoxin Salicylates Acetaminophen Crossmatch 03/19/19 03/19/19 03/19/19 18:52 20:00 20:56 WBC RBC Hgb Hct MCV MCH MCHC RDW Plt Count Lymph % (Auto) [place] % (Auto) Eos % (Auto) Lymph # [place] # Seg Neutrophils % Seg Neuts % (Manual) Lymphocytes % (Manual) Monocytes % (Manual) Eosinophils % (Manual) Nucleated RBC % Seg Neutrophils # Seg Neutrophils # Man Lymphocytes # (Manual) Monocytes # (Manual) Eosinophils # (Manual) PT INR APTT POC ABG pH POC ABG pCO2 POC ABG pO2 Sodium Potassium Chloride Carbon Dioxide BUN Creatinine Glucose POC Glucose 240 H 117 H Lactic Acid 5.90 H* Calcium Phosphorus Magnesium Iron TIBC Ferritin Direct Bilirubin AST Total Creatine Kinase Troponin T Total Protein Albumin Prealbumin LDL Cholesterol Direct HDL Cholesterol Vitamin B12 TSH PTH Intact Urine Creatinine Urine Total Protein Vancomycin Trough Digoxin Salicylates Acetaminophen Crossmatch 03/19/19 03/19/19 03/19/19 21:19 22:07 23:00 WBC RBC Hgb Hct MCV MCH MCHC RDW Plt Count Lymph % (Auto) [place] % (Auto) Eos % (Auto) Lymph # [place] # Seg Neutrophils % Seg Neuts % (Manual) Lymphocytes % (Manual) Monocytes % (Manual) Eosinophils % (Manual) Nucleated RBC % Seg Neutrophils # Seg Neutrophils # Man Lymphocytes # (Manual) Monocytes # (Manual) Eosinophils # (Manual) PT INR APTT POC ABG pH POC ABG pCO2 POC ABG pO2 Sodium Potassium Chloride Carbon Dioxide BUN Creatinine Glucose POC Glucose < 40 L 136 H Lactic Acid 6.10 H* Calcium Phosphorus Magnesium Iron TIBC Ferritin Direct Bilirubin AST Total Creatine Kinase Troponin T Total Protein Albumin Prealbumin LDL Cholesterol Direct HDL Cholesterol Vitamin B12 TSH PTH Intact Urine Creatinine Urine Total Protein Vancomycin Trough Digoxin Salicylates Acetaminophen Crossmatch 03/20/19 03/20/19 03/20/19 00:05 01:38 02:23 WBC RBC Hgb Hct MCV MCH MCHC RDW Plt Count Lymph % (Auto) [place] % (Auto) Eos % (Auto) Lymph # [place] # Seg Neutrophils % Seg Neuts % (Manual) Lymphocytes % (Manual) Monocytes % (Manual) Eosinophils % (Manual) Nucleated RBC % Seg Neutrophils # Seg Neutrophils # Man Lymphocytes # (Manual) Monocytes # (Manual) Eosinophils # (Manual) PT INR APTT POC ABG pH POC ABG pCO2 POC ABG pO2 Sodium Potassium Chloride Carbon Dioxide BUN Creatinine Glucose POC Glucose 68 L 153 H 127 H Lactic Acid Calcium Phosphorus Magnesium Iron TIBC Ferritin Direct Bilirubin AST Total Creatine Kinase Troponin T Total Protein Albumin Prealbumin LDL Cholesterol Direct HDL Cholesterol Vitamin B12 TSH PTH Intact Urine Creatinine Urine Total Protein Vancomycin Trough Digoxin Salicylates Acetaminophen Crossmatch 03/20/19 03/20/19 03/20/19 03:12 04:31 04:41 WBC RBC Hgb Hct MCV MCH MCHC RDW Plt Count Lymph % (Auto) [place] % (Auto) Eos % (Auto) Lymph # [place] # Seg Neutrophils % Seg Neuts % (Manual) Lymphocytes % (Manual) Monocytes % (Manual) Eosinophils % (Manual) Nucleated RBC % Seg Neutrophils # Seg Neutrophils # Man Lymphocytes # (Manual) Monocytes # (Manual) Eosinophils # (Manual) PT INR APTT POC ABG pH POC ABG pCO2 POC ABG pO2 53 L 65 L Sodium Potassium Chloride Carbon Dioxide BUN Creatinine Glucose POC Glucose 109 H Lactic Acid Calcium Phosphorus Magnesium Iron TIBC Ferritin Direct Bilirubin AST Total Creatine Kinase Troponin T Total Protein Albumin Prealbumin LDL Cholesterol Direct HDL Cholesterol Vitamin B12 TSH PTH Intact Urine Creatinine Urine Total Protein Vancomycin Trough Digoxin Salicylates Acetaminophen Crossmatch 03/20/19 03/20/19 03/20/19 05:50 07:29 08:14 WBC RBC Hgb Hct MCV MCH MCHC RDW Plt Count Lymph % (Auto) [place] % (Auto) Eos % (Auto) Lymph # [place] # Seg Neutrophils % Seg Neuts % (Manual) Lymphocytes % (Manual) Monocytes % (Manual) Eosinophils % (Manual) Nucleated RBC % Seg Neutrophils # Seg Neutrophils # Man Lymphocytes # (Manual) Monocytes # (Manual) Eosinophils # (Manual) PT INR APTT POC ABG pH POC ABG pCO2 POC ABG pO2 Sodium Potassium Chloride Carbon Dioxide BUN Creatinine Glucose 61 L POC Glucose 47 L 153 H Lactic Acid Calcium Phosphorus Magnesium 1.60 L Iron TIBC Ferritin Direct Bilirubin AST Total Creatine Kinase Troponin T Total Protein Albumin Prealbumin LDL Cholesterol Direct HDL Cholesterol Vitamin B12 TSH PTH Intact Urine Creatinine Urine Total Protein Vancomycin Trough Digoxin Salicylates Acetaminophen Crossmatch 03/20/19 03/20/19 03/20/19 08:23 08:23 10:59 WBC RBC Hgb Hct MCV MCH MCHC RDW Plt Count Lymph % (Auto) [place] % (Auto) Eos % (Auto) Lymph # [place] # Seg Neutrophils % Seg Neuts % (Manual) Lymphocytes % (Manual) Monocytes % (Manual) Eosinophils % (Manual) Nucleated RBC % Seg Neutrophils # Seg Neutrophils # Man Lymphocytes # (Manual) Monocytes # (Manual) Eosinophils # (Manual) PT INR APTT POC ABG pH POC ABG pCO2 POC ABG pO2 Sodium Potassium Chloride Carbon Dioxide BUN Creatinine Glucose 101 H POC Glucose 233 H Lactic Acid 9.70 H* Calcium Phosphorus Magnesium Iron TIBC Ferritin Direct Bilirubin AST Total Creatine Kinase Troponin T Total Protein Albumin Prealbumin 0.052 L LDL Cholesterol Direct HDL Cholesterol Vitamin B12 TSH PTH Intact Urine Creatinine Urine Total Protein Vancomycin Trough Digoxin Salicylates Acetaminophen Crossmatch 03/20/19 03/20/19 03/20/19 12:23 16:10 16:40 WBC RBC Hgb Hct MCV MCH MCHC RDW Plt Count Lymph % (Auto) [place] % (Auto) Eos % (Auto) Lymph # [place] # Seg Neutrophils % Seg Neuts % (Manual) Lymphocytes % (Manual) Monocytes % (Manual) Eosinophils % (Manual) Nucleated RBC % Seg Neutrophils # Seg Neutrophils # Man Lymphocytes # (Manual) Monocytes # (Manual) Eosinophils # (Manual) PT INR APTT POC ABG pH POC ABG pCO2 POC ABG pO2 Sodium Potassium Chloride Carbon Dioxide BUN Creatinine Glucose POC Glucose 135 H 171 H Lactic Acid Calcium Phosphorus Magnesium Iron TIBC Ferritin Direct Bilirubin AST Total Creatine Kinase Troponin T Total Protein Albumin Prealbumin LDL Cholesterol Direct HDL Cholesterol Vitamin B12 TSH PTH Intact Urine Creatinine 53.7 H Urine Total Protein 36 H Vancomycin Trough Digoxin Salicylates Acetaminophen Crossmatch 03/20/19 03/20/19 03/20/19 16:57 17:38 17:50 WBC RBC Hgb Hct MCV MCH MCHC RDW Plt Count Lymph % (Auto) [place] % (Auto) Eos % (Auto) Lymph # [place] # Seg Neutrophils % Seg Neuts % (Manual) Lymphocytes % (Manual) Monocytes % (Manual) Eosinophils % (Manual) Nucleated RBC % Seg Neutrophils # Seg Neutrophils # Man Lymphocytes # (Manual) Monocytes # (Manual) Eosinophils # (Manual) PT INR APTT POC ABG pH POC ABG pCO2 POC ABG pO2 Sodium Potassium Chloride Carbon Dioxide BUN Creatinine Glucose POC Glucose 152 H 147 H Lactic Acid 9.90 H* Calcium Phosphorus Magnesium Iron TIBC Ferritin Direct Bilirubin AST Total Creatine Kinase Troponin T Total Protein Albumin Prealbumin LDL Cholesterol Direct HDL Cholesterol Vitamin B12 TSH PTH Intact Urine Creatinine Urine Total Protein Vancomycin Trough Digoxin Salicylates Acetaminophen Crossmatch 03/20/19 03/20/19 03/20/19 17:50 17:50 17:50 WBC RBC 2.92 L Hgb 10.0 L Hct 29.3 L MCV 100 H MCH 34 H MCHC RDW Plt Count 81 L Lymph % (Auto) [place] % (Auto) Eos % (Auto) Lymph # [place] # Seg Neutrophils % Seg Neuts % (Manual) Lymphocytes % (Manual) Monocytes % (Manual) Eosinophils % (Manual) Nucleated RBC % Seg Neutrophils # Seg Neutrophils # Man Lymphocytes # (Manual) Monocytes # (Manual) Eosinophils # (Manual) PT INR APTT POC ABG pH POC ABG pCO2 POC ABG pO2 Sodium Potassium 2.8 L* D Chloride Carbon Dioxide BUN 30 H Creatinine 1.6 H Glucose 107 H POC Glucose Lactic Acid Calcium 6.9 L Phosphorus 2.00 L Magnesium Iron TIBC Ferritin Direct Bilirubin AST Total Creatine Kinase Troponin T Total Protein Albumin Prealbumin LDL Cholesterol Direct HDL Cholesterol Vitamin B12 TSH PTH Intact 171.6 H Urine Creatinine Urine Total Protein Vancomycin Trough Digoxin Salicylates Acetaminophen Crossmatch 03/20/19 03/21/19 03/21/19 21:12 00:30 04:12 WBC RBC Hgb Hct MCV MCH MCHC RDW Plt Count Lymph % (Auto) [place] % (Auto) Eos % (Auto) Lymph # [place] # Seg Neutrophils % Seg Neuts % (Manual) Lymphocytes % (Manual) Monocytes % (Manual) Eosinophils % (Manual) Nucleated RBC % Seg Neutrophils # Seg Neutrophils # Man Lymphocytes # (Manual) Monocytes # (Manual) Eosinophils # (Manual) PT INR APTT POC ABG pH POC ABG pCO2 POC ABG pO2 Sodium Potassium 3.0 L Chloride Carbon Dioxide 21 L BUN Creatinine 1.4 H Glucose 103 H POC Glucose Lactic Acid 8.70 H* 9.40 H* Calcium 6.8 L Phosphorus Magnesium Iron TIBC Ferritin Direct Bilirubin AST Total Creatine Kinase Troponin T Total Protein Albumin Prealbumin LDL Cholesterol Direct HDL Cholesterol Vitamin B12 TSH PTH Intact Urine Creatinine Urine Total Protein Vancomycin Trough Digoxin Salicylates Acetaminophen Crossmatch 03/21/19 03/21/19 03/21/19 04:12 04:12 04:43 WBC RBC 2.84 L Hgb 9.5 L Hct 28.3 L MCV 100 H MCH 33 H MCHC RDW Plt Count 79 L Lymph % (Auto) [place] % (Auto) Eos % (Auto) Lymph # [place] # Seg Neutrophils % Seg Neuts % (Manual) Lymphocytes % (Manual) Monocytes % (Manual) Eosinophils % (Manual) Nucleated RBC % Seg Neutrophils # Seg Neutrophils # Man Lymphocytes # (Manual) Monocytes # (Manual) Eosinophils # (Manual) PT INR APTT POC ABG pH 7.456 H POC ABG pCO2 POC ABG pO2 Sodium Potassium Chloride Carbon Dioxide BUN Creatinine Glucose POC Glucose Lactic Acid 9.50 H* Calcium Phosphorus Magnesium Iron TIBC Ferritin Direct Bilirubin AST Total Creatine Kinase Troponin T Total Protein Albumin Prealbumin LDL Cholesterol Direct HDL Cholesterol Vitamin B12 TSH PTH Intact Urine Creatinine Urine Total Protein Vancomycin Trough Digoxin Salicylates Acetaminophen Crossmatch 03/21/19 03/21/19 03/21/19 08:06 08:08 10:11 WBC RBC Hgb Hct MCV MCH MCHC RDW Plt Count Lymph % (Auto) [place] % (Auto) Eos % (Auto) Lymph # [place] # Seg Neutrophils % Seg Neuts % (Manual) Lymphocytes % (Manual) Monocytes % (Manual) Eosinophils % (Manual) Nucleated RBC % Seg Neutrophils # Seg Neutrophils # Man Lymphocytes # (Manual) Monocytes # (Manual) Eosinophils # (Manual) PT INR APTT POC ABG pH POC ABG pCO2 POC ABG pO2 Sodium Potassium 3.5 L Chloride Carbon Dioxide BUN 22 H Creatinine 1.3 H Glucose POC Glucose 64 L Lactic Acid 8.00 H* Calcium 7.0 L Phosphorus Magnesium Iron TIBC Ferritin Direct Bilirubin AST Total Creatine Kinase Troponin T Total Protein Albumin Prealbumin LDL Cholesterol Direct HDL Cholesterol Vitamin B12 TSH PTH Intact Urine Creatinine Urine Total Protein Vancomycin Trough Digoxin Salicylates Acetaminophen Crossmatch 03/21/19 03/21/19 03/21/19 11:17 12:17 13:37 WBC RBC Hgb Hct MCV MCH MCHC RDW Plt Count Lymph % (Auto) [place] % (Auto) Eos % (Auto) Lymph # [place] # Seg Neutrophils % Seg Neuts % (Manual) Lymphocytes % (Manual) Monocytes % (Manual) Eosinophils % (Manual) Nucleated RBC % Seg Neutrophils # Seg Neutrophils # Man Lymphocytes # (Manual) Monocytes # (Manual) Eosinophils # (Manual) PT INR APTT POC ABG pH POC ABG pCO2 POC ABG pO2 Sodium Potassium Chloride Carbon Dioxide BUN Creatinine Glucose POC Glucose 173 H 110 H Lactic Acid Calcium Phosphorus Magnesium Iron TIBC Ferritin Direct Bilirubin AST Total Creatine Kinase Troponin T 0.033 H D Total Protein Albumin Prealbumin LDL Cholesterol Direct HDL Cholesterol Vitamin B12 TSH PTH Intact Urine Creatinine Urine Total Protein Vancomycin Trough Digoxin Salicylates Acetaminophen Crossmatch 03/21/19 03/21/19 03/21/19 13:37 17:21 18:52 WBC RBC Hgb Hct MCV MCH MCHC RDW Plt Count Lymph % (Auto) [place] % (Auto) Eos % (Auto) Lymph # [place] # Seg Neutrophils % Seg Neuts % (Manual) Lymphocytes % (Manual) Monocytes % (Manual) Eosinophils % (Manual) Nucleated RBC % Seg Neutrophils # Seg Neutrophils # Man Lymphocytes # (Manual) Monocytes # (Manual) Eosinophils # (Manual) PT INR APTT POC ABG pH POC ABG pCO2 POC ABG pO2 Sodium Potassium Chloride Carbon Dioxide BUN Creatinine Glucose POC Glucose 130 H 107 H Lactic Acid 6.80 H* Calcium Phosphorus Magnesium Iron TIBC Ferritin Direct Bilirubin AST Total Creatine Kinase Troponin T Total Protein Albumin Prealbumin LDL Cholesterol Direct HDL Cholesterol Vitamin B12 TSH PTH Intact Urine Creatinine Urine Total Protein Vancomycin Trough Digoxin Salicylates Acetaminophen Crossmatch 03/21/19 03/21/19 03/21/19 20:20 22:08 23:05 WBC RBC Hgb Hct MCV MCH MCHC RDW Plt Count Lymph % (Auto) [place] % (Auto) Eos % (Auto) Lymph # [place] # Seg Neutrophils % Seg Neuts % (Manual) Lymphocytes % (Manual) Monocytes % (Manual) Eosinophils % (Manual) Nucleated RBC % Seg Neutrophils # Seg Neutrophils # Man Lymphocytes # (Manual) Monocytes # (Manual) Eosinophils # (Manual) PT INR APTT POC ABG pH POC ABG pCO2 POC ABG pO2 Sodium Potassium Chloride Carbon Dioxide BUN Creatinine Glucose POC Glucose 106 H 106 H Lactic Acid Calcium Phosphorus Magnesium Iron TIBC Ferritin Direct Bilirubin AST Total Creatine Kinase Troponin T 0.036 H Total Protein Albumin Prealbumin LDL Cholesterol Direct HDL Cholesterol Vitamin B12 TSH PTH Intact Urine Creatinine Urine Total Protein Vancomycin Trough Digoxin Salicylates Acetaminophen Crossmatch 03/21/19 03/21/19 03/22/19 23:05 23:05 00:14 WBC RBC Hgb Hct MCV MCH MCHC RDW Plt Count Lymph % (Auto) [place] % (Auto) Eos % (Auto) Lymph # [place] # Seg Neutrophils % Seg Neuts % (Manual) Lymphocytes % (Manual) Monocytes % (Manual) Eosinophils % (Manual) Nucleated RBC % Seg Neutrophils # Seg Neutrophils # Man Lymphocytes # (Manual) Monocytes # (Manual) Eosinophils # (Manual) PT INR APTT POC ABG pH POC ABG pCO2 POC ABG pO2 Sodium Potassium Chloride Carbon Dioxide BUN Creatinine Glucose POC Glucose 122 H 109 H Lactic Acid 7.00 H* Calcium Phosphorus Magnesium Iron TIBC Ferritin Direct Bilirubin AST Total Creatine Kinase Troponin T Total Protein Albumin Prealbumin LDL Cholesterol Direct HDL Cholesterol Vitamin B12 TSH PTH Intact Urine Creatinine Urine Total Protein Vancomycin Trough Digoxin Salicylates Acetaminophen Crossmatch 03/22/19 03/22/19 03/22/19 03:10 04:02 05:11 WBC RBC Hgb Hct MCV MCH MCHC RDW Plt Count Lymph % (Auto) [place] % (Auto) Eos % (Auto) Lymph # [place] # Seg Neutrophils % Seg Neuts % (Manual) Lymphocytes % (Manual) Monocytes % (Manual) Eosinophils % (Manual) Nucleated RBC % Seg Neutrophils # Seg Neutrophils # Man Lymphocytes # (Manual) Monocytes # (Manual) Eosinophils # (Manual) PT INR APTT POC ABG pH 7.487 H POC ABG pCO2 POC ABG pO2 67 L Sodium Potassium Chloride Carbon Dioxide BUN Creatinine Glucose POC Glucose 114 H 112 H Lactic Acid Calcium Phosphorus Magnesium Iron TIBC Ferritin Direct Bilirubin AST Total Creatine Kinase Troponin T Total Protein Albumin Prealbumin LDL Cholesterol Direct HDL Cholesterol Vitamin B12 TSH PTH Intact Urine Creatinine Urine Total Protein Vancomycin Trough Digoxin Salicylates Acetaminophen Crossmatch 03/22/19 03/22/19 03/22/19 06:06 06:10 06:10 WBC RBC Hgb Hct MCV MCH MCHC RDW Plt Count Lymph % (Auto) [place] % (Auto) Eos % (Auto) Lymph # [place] # Seg Neutrophils % Seg Neuts % (Manual) Lymphocytes % (Manual) Monocytes % (Manual) Eosinophils % (Manual) Nucleated RBC % Seg Neutrophils # Seg Neutrophils # Man Lymphocytes # (Manual) Monocytes # (Manual) Eosinophils # (Manual) PT INR APTT POC ABG pH POC ABG pCO2 POC ABG pO2 Sodium Potassium 3.0 L Chloride Carbon Dioxide BUN Creatinine Glucose POC Glucose 115 H Lactic Acid Calcium 7.0 L Phosphorus Magnesium Iron TIBC Ferritin Direct Bilirubin AST Total Creatine Kinase Troponin T 0.036 H Total Protein Albumin Prealbumin LDL Cholesterol Direct HDL Cholesterol Vitamin B12 TSH PTH Intact Urine Creatinine Urine Total Protein Vancomycin Trough Digoxin Salicylates Acetaminophen Crossmatch 03/22/19 03/22/19 03/22/19 06:10 06:10 11:59 WBC RBC Hgb Hct MCV MCH MCHC RDW Plt Count Lymph % (Auto) [place] % (Auto) Eos % (Auto) Lymph # [place] # Seg Neutrophils % Seg Neuts % (Manual) Lymphocytes % (Manual) Monocytes % (Manual) Eosinophils % (Manual) Nucleated RBC % Seg Neutrophils # Seg Neutrophils # Man Lymphocytes # (Manual) Monocytes # (Manual) Eosinophils # (Manual) PT INR APTT POC ABG pH POC ABG pCO2 POC ABG pO2 Sodium Potassium Chloride Carbon Dioxide BUN Creatinine Glucose POC Glucose Lactic Acid 4.80 H* 3.80 H* Calcium Phosphorus Magnesium Iron TIBC Ferritin Direct Bilirubin AST Total Creatine Kinase Troponin T Total Protein Albumin Prealbumin LDL Cholesterol Direct HDL Cholesterol Vitamin B12 TSH 7.810 H PTH Intact Urine Creatinine Urine Total Protein Vancomycin Trough Digoxin Salicylates Acetaminophen Crossmatch 03/22/19 03/22/19 03/22/19 13:45 13:45 13:45 WBC RBC Hgb 8.3 L Hct 24.5 L MCV MCH MCHC RDW Plt Count 56 L Lymph % (Auto) [place] % (Auto) Eos % (Auto) Lymph # [place] # Seg Neutrophils % Seg Neuts % (Manual) Lymphocytes % (Manual) Monocytes % (Manual) Eosinophils % (Manual) Nucleated RBC % Seg Neutrophils # Seg Neutrophils # Man Lymphocytes # (Manual) Monocytes # (Manual) Eosinophils # (Manual) PT 21.4 H INR 1.90 H APTT 43.2 H POC ABG pH POC ABG pCO2 POC ABG pO2 Sodium Potassium Chloride Carbon Dioxide BUN Creatinine Glucose POC Glucose Lactic Acid 3.50 H* Calcium Phosphorus Magnesium Iron TIBC Ferritin Direct Bilirubin AST Total Creatine Kinase Troponin T Total Protein Albumin Prealbumin LDL Cholesterol Direct HDL Cholesterol Vitamin B12 TSH PTH Intact Urine Creatinine Urine Total Protein Vancomycin Trough Digoxin Salicylates Acetaminophen Crossmatch 03/22/19 03/23/19 03/23/19 22:20 01:06 04:50 WBC 12.1 H RBC 2.36 L Hgb 7.7 L Hct 22.9 L MCV MCH 33 H MCHC RDW Plt Count 37 L Lymph % (Auto) [place] % (Auto) Eos % (Auto) Lymph # [place] # Seg Neutrophils % Seg Neuts % (Manual) 83.0 H Lymphocytes % (Manual) 8.0 L Monocytes % (Manual) Eosinophils % (Manual) Nucleated RBC % Seg Neutrophils # Seg Neutrophils # Man 10.0 H Lymphocytes # (Manual) 1.0 L Monocytes # (Manual) Eosinophils # (Manual) PT INR APTT POC ABG pH POC ABG pCO2 POC ABG pO2 Sodium Potassium Chloride Carbon Dioxide BUN Creatinine Glucose POC Glucose Lactic Acid 3.60 H* 2.70 H* Calcium Phosphorus Magnesium Iron TIBC Ferritin Direct Bilirubin AST Total Creatine Kinase Troponin T Total Protein Albumin Prealbumin LDL Cholesterol Direct HDL Cholesterol Vitamin B12 TSH PTH Intact Urine Creatinine Urine Total Protein Vancomycin Trough Digoxin Salicylates Acetaminophen Crossmatch 03/23/19 03/23/19 03/23/19 04:50 05:25 05:53 WBC RBC Hgb Hct MCV MCH MCHC RDW Plt Count Lymph % (Auto) [place] % (Auto) Eos % (Auto) Lymph # [place] # Seg Neutrophils % Seg Neuts % (Manual) Lymphocytes % (Manual) Monocytes % (Manual) Eosinophils % (Manual) Nucleated RBC % Seg Neutrophils # Seg Neutrophils # Man Lymphocytes # (Manual) Monocytes # (Manual) Eosinophils # (Manual) PT INR APTT POC ABG pH POC ABG pCO2 33.3 L POC ABG pO2 Sodium Potassium 3.5 L Chloride 108.3 H Carbon Dioxide BUN Creatinine Glucose POC Glucose 68 L Lactic Acid Calcium 7.3 L Phosphorus Magnesium Iron TIBC Ferritin Direct Bilirubin AST Total Creatine Kinase Troponin T Total Protein Albumin Prealbumin LDL Cholesterol Direct HDL Cholesterol Vitamin B12 TSH PTH Intact Urine Creatinine Urine Total Protein Vancomycin Trough Digoxin Salicylates Acetaminophen Crossmatch 03/24/19 03/24/19 03/24/19 03:26 05:50 05:57 WBC RBC Hgb Hct MCV MCH MCHC RDW Plt Count Lymph % (Auto) [place] % (Auto) Eos % (Auto) Lymph # [place] # Seg Neutrophils % Seg Neuts % (Manual) Lymphocytes % (Manual) Monocytes % (Manual) Eosinophils % (Manual) Nucleated RBC % Seg Neutrophils # Seg Neutrophils # Man Lymphocytes # (Manual) Monocytes # (Manual) Eosinophils # (Manual) PT INR APTT POC ABG pH POC ABG pCO2 POC ABG pO2 78 L Sodium Potassium 3.4 L Chloride 116.5 H Carbon Dioxide 21 L BUN Creatinine 0.5 L Glucose 105 H POC Glucose 127 H Lactic Acid Calcium 6.4 L Phosphorus Magnesium Iron TIBC Ferritin Direct Bilirubin AST Total Creatine Kinase Troponin T Total Protein Albumin Prealbumin LDL Cholesterol Direct HDL Cholesterol Vitamin B12 TSH PTH Intact Urine Creatinine Urine Total Protein Vancomycin Trough Digoxin Salicylates Acetaminophen Crossmatch 03/24/19 03/24/19 03/24/19 06:00 11:30 12:25 WBC 13.6 H RBC 2.08 L Hgb 6.9 L Hct 20.5 L MCV 99 H MCH 33 H MCHC RDW Plt Count 50 L Lymph % (Auto) 8.1 L [place] % (Auto) 10.0 H Eos % (Auto) Lymph # 1.1 L [place] # 1.4 H Seg Neutrophils % 80.7 H Seg Neuts % (Manual) Lymphocytes % (Manual) Monocytes % (Manual) Eosinophils % (Manual) Nucleated RBC % Seg Neutrophils # 11.0 H Seg Neutrophils # Man Lymphocytes # (Manual) Monocytes # (Manual) Eosinophils # (Manual) PT INR APTT POC ABG pH POC ABG pCO2 POC ABG pO2 Sodium Potassium Chloride Carbon Dioxide BUN Creatinine Glucose POC Glucose 111 H Lactic Acid Calcium Phosphorus Magnesium Iron TIBC Ferritin Direct Bilirubin AST Total Creatine Kinase Troponin T Total Protein Albumin Prealbumin LDL Cholesterol Direct HDL Cholesterol Vitamin B12 TSH PTH Intact Urine Creatinine Urine Total Protein Vancomycin Trough Digoxin Salicylates Acetaminophen Crossmatch See Detail 03/24/19 03/25/19 03/25/19 14:25 05:20 10:00 WBC 13.4 H RBC 2.54 L Hgb 8.1 L Hct 24.3 L MCV MCH MCHC RDW 17.3 H Plt Count 44 L Lymph % (Auto) [place] % (Auto) Eos % (Auto) Lymph # [place] # Seg Neutrophils % Seg Neuts % (Manual) Lymphocytes % (Manual) Monocytes % (Manual) Eosinophils % (Manual) Nucleated RBC % Seg Neutrophils # Seg Neutrophils # Man Lymphocytes # (Manual) Monocytes # (Manual) Eosinophils # (Manual) PT INR APTT POC ABG pH POC ABG pCO2 POC ABG pO2 Sodium Potassium Chloride Carbon Dioxide BUN Creatinine Glucose POC Glucose 111 H Lactic Acid Calcium Phosphorus Magnesium Iron 32 L TIBC 75 L Ferritin Direct Bilirubin AST Total Creatine Kinase Troponin T Total Protein Albumin Prealbumin LDL Cholesterol Direct HDL Cholesterol Vitamin B12 TSH PTH Intact Urine Creatinine Urine Total Protein Vancomycin Trough Digoxin Salicylates Acetaminophen Crossmatch 03/25/19 03/25/19 03/25/19 10:11 10:11 23:11 WBC RBC Hgb Hct MCV MCH MCHC RDW Plt Count Lymph % (Auto) [place] % (Auto) Eos % (Auto) Lymph # [place] # Seg Neutrophils % Seg Neuts % (Manual) Lymphocytes % (Manual) Monocytes % (Manual) Eosinophils % (Manual) Nucleated RBC % Seg Neutrophils # Seg Neutrophils # Man Lymphocytes # (Manual) Monocytes # (Manual) Eosinophils # (Manual) PT INR APTT POC ABG pH POC ABG pCO2 POC ABG pO2 Sodium Potassium Chloride 112.0 H Carbon Dioxide BUN 20 H Creatinine 0.6 L Glucose POC Glucose 112 H Lactic Acid Calcium 7.2 L Phosphorus Magnesium Iron TIBC Ferritin Direct Bilirubin AST Total Creatine Kinase Troponin T Total Protein Albumin Prealbumin LDL Cholesterol Direct HDL Cholesterol Vitamin B12 > 2000 H TSH PTH Intact Urine Creatinine Urine Total Protein Vancomycin Trough Digoxin Salicylates Acetaminophen Crossmatch 03/26/19 03/26/19 03/26/19 05:00 05:00 05:16 WBC 14.4 H RBC 2.74 L Hgb 8.9 L Hct 25.7 L MCV MCH 33 H MCHC 35 H RDW 16.9 H Plt Count 60 L Lymph % (Auto) [place] % (Auto) Eos % (Auto) Lymph # [place] # Seg Neutrophils % Seg Neuts % (Manual) 83.0 H Lymphocytes % (Manual) 5.0 L Monocytes % (Manual) Eosinophils % (Manual) 5.0 H Nucleated RBC % 1.0 H Seg Neutrophils # Seg Neutrophils # Man 12.0 H Lymphocytes # (Manual) 0.7 L Monocytes # (Manual) 0.9 H Eosinophils # (Manual) 0.7 H PT INR APTT POC ABG pH POC ABG pCO2 POC ABG pO2 Sodium Potassium 3.1 L Chloride 110.4 H Carbon Dioxide BUN 22 H Creatinine Glucose 101 H POC Glucose 114 H Lactic Acid Calcium 7.4 L Phosphorus Magnesium Iron TIBC Ferritin Direct Bilirubin AST Total Creatine Kinase Troponin T Total Protein Albumin Prealbumin LDL Cholesterol Direct HDL Cholesterol Vitamin B12 TSH PTH Intact Urine Creatinine Urine Total Protein Vancomycin Trough Digoxin Salicylates Acetaminophen Crossmatch 03/26/19 03/27/19 03/27/19 11:55 09:04 09:04 WBC RBC Hgb Hct MCV MCH MCHC RDW Plt Count Lymph % (Auto) [place] % (Auto) Eos % (Auto) Lymph # [place] # Seg Neutrophils % Seg Neuts % (Manual) Lymphocytes % (Manual) Monocytes % (Manual) Eosinophils % (Manual) Nucleated RBC % Seg Neutrophils # Seg Neutrophils # Man Lymphocytes # (Manual) Monocytes # (Manual) Eosinophils # (Manual) PT INR APTT POC ABG pH POC ABG pCO2 POC ABG pO2 Sodium Potassium 3.2 L Chloride Carbon Dioxide BUN 22 H Creatinine Glucose POC Glucose 121 H Lactic Acid Calcium 7.7 L Phosphorus Magnesium Iron TIBC Ferritin Direct Bilirubin AST Total Creatine Kinase Troponin T Total Protein Albumin Prealbumin LDL Cholesterol Direct HDL Cholesterol Vitamin B12 TSH PTH Intact Urine Creatinine Urine Total Protein Vancomycin Trough 23.0 H Digoxin Salicylates Acetaminophen Crossmatch 03/27/19 03/27/19 03/27/19 09:04 13:31 14:04 WBC 14.8 H RBC 2.52 L Hgb 8.0 L 8.3 L Hct 24.0 L 25.3 L MCV MCH MCHC RDW 17.0 H Plt Count 89 L 91 L Lymph % (Auto) [place] % (Auto) 8.8 H Eos % (Auto) Lymph # [place] # 1.3 H Seg Neutrophils % 70.7 H Seg Neuts % (Manual) Lymphocytes % (Manual) Monocytes % (Manual) Eosinophils % (Manual) Nucleated RBC % Seg Neutrophils # 10.5 H Seg Neutrophils # Man Lymphocytes # (Manual) Monocytes # (Manual) Eosinophils # (Manual) PT INR APTT POC ABG pH POC ABG pCO2 POC ABG pO2 Sodium Potassium Chloride Carbon Dioxide BUN Creatinine Glucose POC Glucose Lactic Acid Calcium Phosphorus Magnesium Iron TIBC Ferritin Direct Bilirubin 0.3 H AST Total Creatine Kinase Troponin T Total Protein 4.9 L Albumin 1.3 L Prealbumin LDL Cholesterol Direct HDL Cholesterol Vitamin B12 TSH PTH Intact Urine Creatinine Urine Total Protein Vancomycin Trough Digoxin Salicylates Acetaminophen Crossmatch 03/27/19 03/27/19 03/28/19 14:04 23:51 01:05 WBC 14.4 H RBC 2.44 L Hgb 8.0 L Hct 24.5 L MCV 100 H MCH 33 H MCHC RDW 18.5 H Plt Count 86 L Lymph % (Auto) [place] % (Auto) Eos % (Auto) Lymph # [place] # Seg Neutrophils % Seg Neuts % (Manual) 84.0 H Lymphocytes % (Manual) 10.0 L Monocytes % (Manual) Eosinophils % (Manual) Nucleated RBC % Seg Neutrophils # Seg Neutrophils # Man 12.1 H Lymphocytes # (Manual) Monocytes # (Manual) Eosinophils # (Manual) PT 21.4 H INR 1.90 H APTT 42.2 H POC ABG pH POC ABG pCO2 POC ABG pO2 Sodium Potassium Chloride Carbon Dioxide BUN Creatinine Glucose POC Glucose 130 H Lactic Acid Calcium Phosphorus Magnesium Iron TIBC Ferritin Direct Bilirubin AST Total Creatine Kinase Troponin T Total Protein Albumin Prealbumin LDL Cholesterol Direct HDL Cholesterol Vitamin B12 TSH PTH Intact Urine Creatinine Urine Total Protein Vancomycin Trough Digoxin Salicylates Acetaminophen Crossmatch 03/28/19 03/28/19 03/28/19 02:51 04:45 07:31 WBC RBC Hgb Hct MCV MCH MCHC RDW Plt Count Lymph % (Auto) [place] % (Auto) Eos % (Auto) Lymph # [place] # Seg Neutrophils % Seg Neuts % (Manual) Lymphocytes % (Manual) Monocytes % (Manual) Eosinophils % (Manual) Nucleated RBC % Seg Neutrophils # Seg Neutrophils # Man Lymphocytes # (Manual) Monocytes # (Manual) Eosinophils # (Manual) PT INR APTT 75.0 H* POC ABG pH POC ABG pCO2 POC ABG pO2 Sodium Potassium Chloride Carbon Dioxide BUN 22 H Creatinine Glucose POC Glucose Lactic Acid Calcium 7.8 L Phosphorus Magnesium Iron TIBC Ferritin 448.3 H Direct Bilirubin AST Total Creatine Kinase Troponin T Total Protein Albumin Prealbumin LDL Cholesterol Direct HDL Cholesterol Vitamin B12 TSH PTH Intact Urine Creatinine Urine Total Protein Vancomycin Trough Digoxin Salicylates Acetaminophen Crossmatch 03/28/19 03/29/19 03/29/19 14:30 04:40 04:40 WBC RBC 2.17 L Hgb 7.1 L Hct 20.8 L MCV MCH 33 H MCHC RDW 17.1 H Plt Count 122 L Lymph % (Auto) [place] % (Auto) Eos % (Auto) Lymph # [place] # Seg Neutrophils % Seg Neuts % (Manual) Lymphocytes % (Manual) Monocytes % (Manual) Eosinophils % (Manual) Nucleated RBC % Seg Neutrophils # Seg Neutrophils # Man Lymphocytes # (Manual) Monocytes # (Manual) Eosinophils # (Manual) PT INR APTT 70.3 H* POC ABG pH POC ABG pCO2 POC ABG pO2 Sodium Potassium Chloride Carbon Dioxide 31 H BUN 22 H Creatinine 0.5 L Glucose POC Glucose Lactic Acid Calcium 8.0 L Phosphorus Magnesium Iron TIBC Ferritin Direct Bilirubin AST Total Creatine Kinase Troponin T Total Protein 5.0 L Albumin 1.4 L Prealbumin LDL Cholesterol Direct HDL Cholesterol Vitamin B12 TSH PTH Intact Urine Creatinine Urine Total Protein Vancomycin Trough Digoxin Salicylates Acetaminophen Crossmatch 03/29/19 03/29/19 03/29/19 04:40 04:40 11:50 WBC RBC Hgb Hct MCV MCH MCHC RDW Plt Count Lymph % (Auto) [place] % (Auto) Eos % (Auto) Lymph # [place] # Seg Neutrophils % Seg Neuts % (Manual) Lymphocytes % (Manual) Monocytes % (Manual) Eosinophils % (Manual) Nucleated RBC % Seg Neutrophils # Seg Neutrophils # Man Lymphocytes # (Manual) Monocytes # (Manual) Eosinophils # (Manual) PT INR APTT 71.8 H* POC ABG pH POC ABG pCO2 POC ABG pO2 Sodium Potassium Chloride Carbon Dioxide BUN Creatinine Glucose POC Glucose 118 H Lactic Acid Calcium Phosphorus Magnesium Iron TIBC Ferritin Direct Bilirubin AST Total Creatine Kinase Troponin T Total Protein Albumin Prealbumin LDL Cholesterol Direct HDL Cholesterol Vitamin B12 TSH PTH Intact Urine Creatinine Urine Total Protein Vancomycin Trough Digoxin 3.5 H* Salicylates Acetaminophen Crossmatch 03/29/19 03/29/19 03/29/19 16:20 16:20 21:10 WBC RBC Hgb Hct MCV MCH MCHC RDW Plt Count Lymph % (Auto) [place] % (Auto) Eos % (Auto) Lymph # [place] # Seg Neutrophils % Seg Neuts % (Manual) Lymphocytes % (Manual) Monocytes % (Manual) Eosinophils % (Manual) Nucleated RBC % Seg Neutrophils # Seg Neutrophils # Man Lymphocytes # (Manual) Monocytes # (Manual) Eosinophils # (Manual) PT INR APTT 61.5 H* 112.6 H* POC ABG pH POC ABG pCO2 POC ABG pO2 Sodium Potassium Chloride Carbon Dioxide BUN Creatinine Glucose POC Glucose Lactic Acid Calcium Phosphorus Magnesium Iron TIBC Ferritin Direct Bilirubin AST Total Creatine Kinase Troponin T Total Protein Albumin Prealbumin LDL Cholesterol Direct HDL Cholesterol Vitamin B12 TSH PTH Intact Urine Creatinine Urine Total Protein Vancomycin Trough Digoxin 2.6 H* Salicylates Acetaminophen Crossmatch 03/29/19 03/30/19 03/30/19 22:30 04:42 04:42 WBC RBC Hgb 6.4 L Hct 18.9 L* MCV MCH MCHC RDW Plt Count Lymph % (Auto) [place] % (Auto) Eos % (Auto) Lymph # [place] # Seg Neutrophils % Seg Neuts % (Manual) Lymphocytes % (Manual) Monocytes % (Manual) Eosinophils % (Manual) Nucleated RBC % Seg Neutrophils # Seg Neutrophils # Man Lymphocytes # (Manual) Monocytes # (Manual) Eosinophils # (Manual) PT INR APTT 103.8 H* POC ABG pH POC ABG pCO2 POC ABG pO2 Sodium Potassium Chloride Carbon Dioxide BUN Creatinine Glucose POC Glucose Lactic Acid Calcium Phosphorus Magnesium Iron TIBC Ferritin Direct Bilirubin AST Total Creatine Kinase Troponin T Total Protein Albumin Prealbumin LDL Cholesterol Direct HDL Cholesterol Vitamin B12 TSH PTH Intact Urine Creatinine Urine Total Protein Vancomycin Trough Digoxin 2.6 H* Salicylates Acetaminophen Crossmatch 03/30/19 03/30/19 03/30/19 07:04 07:58 11:15 WBC RBC 2.66 L Hgb 8.5 L Hct 25.3 L D MCV MCH MCHC RDW 17.4 H Plt Count Lymph % (Auto) [place] % (Auto) Eos % (Auto) Lymph # [place] # Seg Neutrophils % Seg Neuts % (Manual) Lymphocytes % (Manual) Monocytes % (Manual) Eosinophils % (Manual) Nucleated RBC % Seg Neutrophils # Seg Neutrophils # Man Lymphocytes # (Manual) Monocytes # (Manual) Eosinophils # (Manual) PT INR APTT 50.5 H POC ABG pH POC ABG pCO2 POC ABG pO2 Sodium Potassium Chloride Carbon Dioxide BUN Creatinine Glucose POC Glucose Lactic Acid Calcium Phosphorus Magnesium Iron TIBC Ferritin Direct Bilirubin AST Total Creatine Kinase Troponin T Total Protein Albumin Prealbumin LDL Cholesterol Direct HDL Cholesterol Vitamin B12 TSH PTH Intact Urine Creatinine Urine Total Protein Vancomycin Trough Digoxin Salicylates Acetaminophen Crossmatch See Detail 03/30/19 03/30/19 03/30/19 11:36 17:40 22:51 WBC RBC 2.48 L Hgb 7.9 L Hct 23.9 L MCV MCH MCHC RDW 17.7 H Plt Count Lymph % (Auto) [place] % (Auto) Eos % (Auto) Lymph # [place] # Seg Neutrophils % Seg Neuts % (Manual) Lymphocytes % (Manual) Monocytes % (Manual) Eosinophils % (Manual) Nucleated RBC % Seg Neutrophils # Seg Neutrophils # Man Lymphocytes # (Manual) Monocytes # (Manual) Eosinophils # (Manual) PT INR APTT POC ABG pH POC ABG pCO2 POC ABG pO2 Sodium Potassium Chloride Carbon Dioxide BUN Creatinine Glucose POC Glucose 129 H 112 H Lactic Acid Calcium Phosphorus Magnesium Iron TIBC Ferritin Direct Bilirubin AST Total Creatine Kinase Troponin T Total Protein Albumin Prealbumin LDL Cholesterol Direct HDL Cholesterol Vitamin B12 TSH PTH Intact Urine Creatinine Urine Total Protein Vancomycin Trough Digoxin Salicylates Acetaminophen Crossmatch 03/30/19 03/31/19 03/31/19 23:47 05:00 11:35 WBC RBC Hgb 8.0 L Hct 23.7 L MCV MCH MCHC RDW Plt Count Lymph % (Auto) [place] % (Auto) Eos % (Auto) Lymph # [place] # Seg Neutrophils % Seg Neuts % (Manual) Lymphocytes % (Manual) Monocytes % (Manual) Eosinophils % (Manual) Nucleated RBC % Seg Neutrophils # Seg Neutrophils # Man Lymphocytes # (Manual) Monocytes # (Manual) Eosinophils # (Manual) PT INR APTT POC ABG pH POC ABG pCO2 POC ABG pO2 Sodium Potassium Chloride Carbon Dioxide BUN Creatinine Glucose POC Glucose 112 H 106 H Lactic Acid Calcium Phosphorus Magnesium Iron TIBC Ferritin Direct Bilirubin AST Total Creatine Kinase Troponin T Total Protein Albumin Prealbumin LDL Cholesterol Direct HDL Cholesterol Vitamin B12 TSH PTH Intact Urine Creatinine Urine Total Protein Vancomycin Trough Digoxin Salicylates Acetaminophen Crossmatch 04/01/19 04/02/19 04/03/19 11:38 08:33 06:15 WBC RBC 2.11 L Hgb 7.8 L 6.8 L Hct 23.1 L 20.5 L MCV 98 H MCH MCHC RDW 17.6 H Plt Count Lymph % (Auto) [place] % (Auto) 12.1 H Eos % (Auto) 7.4 H Lymph # [place] # Seg Neutrophils % Seg Neuts % (Manual) Lymphocytes % (Manual) Monocytes % (Manual) Eosinophils % (Manual) Nucleated RBC % Seg Neutrophils # Seg Neutrophils # Man Lymphocytes # (Manual) Monocytes # (Manual) Eosinophils # (Manual) PT INR APTT POC ABG pH POC ABG pCO2 POC ABG pO2 Sodium Potassium Chloride Carbon Dioxide BUN Creatinine Glucose POC Glucose 136 H Lactic Acid Calcium Phosphorus Magnesium Iron TIBC Ferritin Direct Bilirubin AST Total Creatine Kinase Troponin T Total Protein Albumin Prealbumin LDL Cholesterol Direct HDL Cholesterol Vitamin B12 TSH PTH Intact Urine Creatinine Urine Total Protein Vancomycin Trough Digoxin Salicylates Acetaminophen Crossmatch 04/03/19 08:22 WBC RBC Hgb 7.3 L Hct 21.9 L MCV MCH MCHC RDW Plt Count Lymph % (Auto) [place] % (Auto) Eos % (Auto) Lymph # [place] # Seg Neutrophils % Seg Neuts % (Manual) Lymphocytes % (Manual) Monocytes % (Manual) Eosinophils % (Manual) Nucleated RBC % Seg Neutrophils # Seg Neutrophils # Man Lymphocytes # (Manual) Monocytes # (Manual) Eosinophils # (Manual) PT INR APTT POC ABG pH POC ABG pCO2 POC ABG pO2 Sodium Potassium Chloride Carbon Dioxide BUN Creatinine Glucose POC Glucose Lactic Acid Calcium Phosphorus Magnesium Iron TIBC Ferritin Direct Bilirubin AST Total Creatine Kinase Troponin T Total Protein Albumin Prealbumin LDL Cholesterol Direct HDL Cholesterol Vitamin B12 TSH PTH Intact Urine Creatinine Urine Total Protein Vancomycin Trough Digoxin Salicylates Acetaminophen Crossmatch Chest x-ray: report reviewed, image reviewed
[2019-04-04] MEDS: HumaLOG SUB-Q SCH ×4 (01:16→19:31)
[2019-04-04] MEDS: DUONEB *Not for PRN Use IH SCH ×4 (02:35→21:16)
--- NOTE | 2019-04-04 04:27 | XRay Report ---
CHEST 1 VIEW INDICATION / CLINICAL INFORMATION: Pneumonia. COMPARISON: 03/26/2019 FINDINGS: SUPPORT DEVICES: Lines and tubes are unchanged. HEART / MEDIASTINUM: No significant abnormality. LUNGS / PLEURA: Bilateral lung consolidation appears essentially unchanged. No pneumothorax. ADDITIONAL FINDINGS: No significant additional findings. IMPRESSION: 1. No significant change Signer Name: Angelo Milan MD Signed: 04/04/2019 4:23 AM Workstation Name: [id number]
[2019-04-04] MEDS: MERREM 1,000 MG in NACL 0.9% 100 ML IV SCH (05:10)
[2019-04-04 05:46] LABS: Basophils # (Auto) 0.1 K/mm3 (0.0-0.1); Basophils % (Auto) 0.7 % (0.0-1.8); Eosinophils # (Auto) 0.5 K/mm3 (0.0-0.4); Eosinophils % (Auto) 6.6 % (0.0-4.3); Hemoglobin 7.3 gm/dl (10.1-14.3); Lymphocytes # (Auto) 1.7 K/mm3 (1.2-5.4); Lymphocytes % (Auto) 21.5 % (13.4-35.0); Mean Corpuscular HGB Conc 33 % (30-34); Mean Corpuscular Volume 97 fl (79-97); Monocytes % (Auto) 12.2 % (0.0-7.3); Platelet Count 296 K/mm3 (140-440); Red Blood Count 2.27 M/mm3 (3.65-5.03); Red Cell Distribution Width 16.8 % (13.2-15.2)
[2019-04-04 06:12] LABS: BUN/Creatinine Ratio 38; Blood Urea Nitrogen 15 mg/dL (7-17); Calcium 7.9 mg/dL (8.4-10.2); Hemolysis Index 17
--- NOTE | 2019-04-04 07:52 | Hem/Onc Progress Note ---
Assessment and Plan low plt - since admission DVT was on home hospice 1. Thrombocytopenia. This may be secondary to medications. The platelets were even low at admission. The differential includes infection versus a marrow issue. At this time, platelets are adequate, we will follow the trend. Because of clinical suspicion, HIT test has been ordered. Argatroban ordered. Heparin has been stopped. 2. Pneumonia. 3. Encephalopathy. 4. Respiratory failure, on vent. 5. Renal impairment. 6. Deep vein thrombosis. Her immobilization may have a role. Central line also may have a role. Acute Right common femoral DVT and right IJ vein thrombosis the patient was on Argatroban. Once HIT antibody is negative, we will look into changing to oral anticoagulation like Eliquis or Xarelto. Her thrombocytopenia may complicate, the patient had low platelet even at admission. IVC filter may prevent the leg DVT from progression to PE; however, for IJ DVT, we have limited options. The patient was on home hospice as per notes. Atrial fibrillation, she was on medications. History of anemia, deficiency investigations. Leukocytosis, likely reactive. B12 level more than 2000, serum iron 32. HIT antibody done on 03/27 anemia - IV iron trial 04/04/2019 anemia - off argatroban - HIT test negative PRBC it appears that the pt is actively bleeding - based on hb fall - hence anticoag has been held option of IVC filter - but hospice is being looked into if hb improves - ? oral anticoag an option - eliquis vs xarelto - Patient Problems (1) Thrombocytopenia Current Visit: Yes Status: Acute Subjective Date of service: 04/04/19 Principal diagnosis: anemia - DVT Interval history: repeat hb better - no prbc Objective - Exam Narrative Exam: Pain - none - on vent General appearance intubated Performance status - complete help needed Eyes - no icterus ENT no thrush LNs cervical not palpable Neck - no LNs/mass Respiratory Normal Breath sounds - CTA anteriorly CVS S1 S2 + Extremities normal temperature - flaccid General GI Soft - distended Rectal deferred female - deferred Skin warm Musculoskeletal not able to evaluate Neurologically - on vent - Constitutional Vitals: Last Vital Signs Temp 100.6 F H 04/04/19 04:00 Pulse 109 H 04/04/19 07:00 Resp 25 H 04/04/19 07:00 BP 127/48 04/04/19 07:00 Pulse Ox 98 04/04/19 07:00 - Labs Lab Results: Laboratory Results - last 24 hr 04/03/19 04/03/19 04/03/19 08:22 17:52 18:20 WBC RBC Hgb 7.3 L Hct 21.9 L MCV MCH MCHC RDW Plt Count Lymph % (Auto) [place] % (Auto) Eos % (Auto) Baso % (Auto) Lymph # Major # Eos # Baso # Seg Neutrophils % Seg Neutrophils # Sodium Potassium Chloride Carbon Dioxide Anion Gap BUN Creatinine Estimated GFR BUN/Creatinine Ratio Glucose POC Glucose 94 72 Calcium Phosphorus Magnesium 04/04/19 04/04/19 04/04/19 00:11 05:20 05:20 WBC 8.1 RBC 2.27 L Hgb 7.3 L Hct 22.0 L MCV 97 MCH 32 MCHC 33 RDW 16.8 H Plt Count 296 Lymph % (Auto) 21.5 [place] % (Auto) 12.2 H Eos % (Auto) 6.6 H Baso % (Auto) 0.7 Lymph # 1.7 Major # 1.0 H Eos # 0.5 H Baso # 0.1 Seg Neutrophils % 59.0 Seg Neutrophils # 4.8 Sodium 142 Potassium 3.7 Chloride 106.5 Carbon Dioxide 26 Anion Gap 13 BUN 15 Creatinine 0.4 L Estimated GFR > 60 BUN/Creatinine Ratio 38 Glucose 80 POC Glucose 83 Calcium 7.9 L Phosphorus 2.20 L Magnesium 1.40 L Medications & Allergies - Medications Allergies/Adverse Reactions: Allergies No Known Allergies Allergy (Unverified 03/19/19 13:11) Home Medications: Home Medications Medication Instructions Recorded Confirmed Last Taken Type Aspirin EC 81 mg PO DAILY 03/20/19 03/20/19 Unknown History Divalproex Sodium 375 mg PO Q8H PRN 03/20/19 03/20/19 Unknown History Metoprolol [Lopressor TAB] 50 mg PO BID 03/20/19 03/20/19 Unknown History Sennosides/Docusate Sodium [Senna 8.6 mg PO BID PRN 03/20/19 03/20/19 Unknown History Plus Tablet] levETIRAcetam [Keppra TAB] 500 mg PO BID 03/20/19 03/20/19 Unknown History Active Medications: Generic Name Dose Route Start Last Admin Trade Name Freq PRN Reason Stop Dose Admin Acetaminophen 650 mg 03/24/19 23:48 04/03/19 16:30 Tylenol FEEDTUBE 650 mg Q6H PRN Administration Fever >101 Albuterol 2.5 mg 03/19/19 23:58 Proventil IH Q3HRT PRN Shortness Of Breath Albuterol/Ipratropium 1 ampul 03/20/19 02:00 04/04/19 02:35 Duoneb *Not For Prn Use* IH 1 ampul Q6HRT YUSUF Administration Amiodarone HCl 200 mg 03/22/19 22:00 04/03/19 21:01 Cordarone PO 200 mg BID YUSUF Administration Lipase/Protease/Amylase 1 each 03/22/19 16:03 Pancreaztiti Sargent 10,500 Unit FEEDTUBE PRN PRN For Clogged Feeding Tube Aspirin 81 mg 03/21/19 10:00 04/03/19 09:41 Baby Aspirin PO 81 mg DAILY YUSUF Administration Budesonide 0.5 mg 03/19/19 23:45 04/03/19 20:24 Pulmicort IH 0.5 mg Q12HRT YUSUF Administration Dextrose 50 ml 03/19/19 23:58 03/21/19 16:29 D50w (25gm) Syringe IV 50 ml PRN PRN Administration Hypoglycemia Famotidine 20 mg 03/22/19 10:00 04/03/19 21:01 Pepcid PO 20 mg BID YUSUF Administration Fentanyl 50 mcg 03/19/19 12:45 03/19/19 13:26 Sublimaze IV 50 mcg Q10MIN PRN Administration ANALGESIA Hydromorphone HCl 0.5 mg 03/19/19 23:58 Dilaudid IV Q3H PRN Pain , Severe (7-10) Hydrophilic Ointment 1 applic 03/19/19 12:45 Vaseline Lip Therapy TP Q2HR PRN Dry Lips Fentanyl Citrate 2,000 mcg in 100 mls @ 2.835 mls/hr 03/19/19 14:00 03/21/19 11:33 Fentanyl Drip Premix IV 0 mcg/kg/hr TITR YUSUF 0 mls/hr Titration Protocol 1 MCG/KG/HR Norepinephrine 4 mg in 250 mls @ 7.5 mls/hr 03/25/19 11:00 03/30/19 23:45 Levophed Drip 4 Mg/Ns 250 Ml IV 0 mcg/min TITR YUSUF 0 mls/hr Titration Protocol 2 MCG/MIN Meropenem 1,000 mg/ Sodium 100 mls @ 100 mls/hr 03/26/19 15:00 04/04/19 05:10 Chloride IV 100 mls/hr Q8HR YUSUF Administration Protocol Vancomycin HCl 1,250 mg/ 275 mls @ 166.667 mls/hr 03/30/19 13:00 04/03/19 09:42 Sodium Chloride IV 166.667 mls/hr Q24HR YUSUF Administration Insulin Human Lispro 0 unit 03/20/19 00:00 04/04/19 06:53 Humalog SUB-Q Not Given Q6HR [facility] Protocol Metoclopramide HCl 5 mg 03/20/19 00:12 Reglan IV Q6H PRN Nausea And Vomiting Metoprolol Tartrate 2.5 mg 03/23/19 13:17 03/24/19 21:20 Lopressor IV 2.5 mg Q2HR PRN Administration HR >150 Multi-Ingred Cream/Lotion/Oil/Oint 1 applic 03/19/19 12:45 Artificial Tears Ophth Oint OU Q4HR PRN Dry Eye(s) Ondansetron HCl 4 mg 03/19/19 23:58 Zofran IV Q8H PRN Nausea And Vomiting Promethazine HCl 25 mg 03/19/19 23:58 Phenergan MA Q6H PRN N/V IF NPO AND NO IV ACCESS Simple Syrup 15 ml 03/22/19 16:03 04/03/19 00:55 Simple Syrup FEEDTUBE 15 ml PRN PRN Administration Hypoglycemia Simple Syrup 30 ml 03/22/19 16:03 Simple Syrup FEEDTUBE PRN PRN Hypoglycemia Sodium Bicarbonate 325 mg 03/22/19 16:03 Sodium Bicarbonate FEEDTUBE PRN PRN For Clogged Feeding Tube Sodium Chloride 10 ml 03/20/19 10:00 04/03/19 22:45 Sodium Chloride Flush Syringe 10 Ml IV 10 ml BID YUSUF Administration Sodium Chloride 10 ml 03/19/19 23:58 Sodium Chloride Flush Syringe 10 Ml IV PRN PRN LINE FLUSH
[2019-04-04] MEDS: PULMICORT IH SCH ×2 (08:39→21:17)
[2019-04-04] MEDS ORDERED: MAGNESIUM SULFATE 4GM/100ML 4 GM/100 ML BAG IV ONE (09:00)
--- NOTE | 2019-04-04 09:18 | Progress Note ---
Assessment and Plan Acute metabolic encephalopathy, - cont supportive care, CT head negative Acute hypoxic respiratory s/p ETT placement: consulted [facility], wean off vent as tolerated, scheduled nebs - will need trach/PEG Severe Anemia: Drop in H/H -Hemoglobin today 7.3, status post 2 units of PRBC transfusion - Closely monitor and transfuse as needed Digoxin toxicity; supratherapeutic level, off digoxin Acute Right common femoral DVT and right IJ vein thrombosis - argatroban drip dced due to severe anemia[requiring transfusion] - Anticoagulation decision per hematology Sepsis due to aspiration pneumonia; - source pneumonia but having persistent fever. UA negative. Blood culture 03/19/2019 no growth. Urine culture 03/19/2019 negative. - ID following, Has completed full course for pneumonia. Plan to stop antibiotics today and If patient decompensates would restart vanc and wiley. Septic shock: off pressor, weaned off, BP now stable Paroxysmal Atrial fib, Now NSR - on amioderone, metoprolol HA (acute kidney injury), atn and vasomotor nephrology, poa: IV fluids for now, Nephrology consulted - renal function improved Anemia, due to CD vs other cause - ordered stool for occult blood, iron study - transfused one unit PRBC RUL Aspiration pneumonia: treated with abx Hypernatremia: improved with Iv fluid Hypomagnesemia: replete and follow as needed Elevated troponin level/ NSTEMI II; consulted Cardiology, consevative mx DVT prophylaxis DNR code status CCT 34 minutes Brief History Patient is a 73 yo woman without a clear past medical history due to patient presentation of being Altered requiring intubation upon admission. Upon arrival to the emergency room, the patient is obtunded, breathing without difficulty, desaturating, without a gag reflex. Therefore, patient placed on nasal cannula at 15 L/m, and then intubated without difficulty. Patient started empirically on the sepsis pathway, with broad-spectrum antibiotics, aggressive IV fluids, and post intubation sedation package. She is difficult to wean off from vent, s/p bronch. venous doppler showed right internal jugular vein thrombus associated with right internal jugular vein triple lumen catheter and right common femoral vein DVT. Patient was on anticoagulation however had significant anemia requiring blood transfusion as argatroban discontinued. Patient is unable to wean with poor prognosis, family requested DO NOT RESUSCITATE status And initially decided hospice, however they changed their mind and now considering trach and PEG and SNF placement. * pCXR FINDINGS: SUPPORT DEVICES: Endotracheal tube is in place in good position above the liam. HEART / MEDIASTINUM: No significant abnormality. LUNGS / PLEURA: There is moderate bibasilar lung consolidation and slight right upper lobe consolidation as well. No edema or effusions. No pneumothorax. ADDITIONAL FINDINGS: No significant additional findings. IMPRESSION: 1. Endotracheal tube in good position. * CT head without contrast IMPRESSION: Encephalomalacia in the entire right cerebral hemisphere Volume loss in the left cerebral hemisphere, n0 acute parenchymal lesion in the brain. Hospitalist Physical Gen: critcally ill, thin frail, intubated, HEENT: NCAT, EOMI, PERRL, OP Clear Neck: supple, no adenopathy, no thyromegaly, no JVD CVS/Heart: RRR, normal S1S2, pulses present bilaterally Chest/Lungs: CTA B, Symmetrical chest expansion, good air entry bilaterally GI/Abdomen: soft, NTND, good bowel sounds, no guarding or rebound /Bladder: no suprapubic tenderness, no CVA or paraspinal tenderness Extermity/Skin: no c/c/e, no obvious rash, + edema MSK: no joint swelling Neuro: intubated Psych: intubated Subjective Date of service: 04/04/19 Principal diagnosis: anemia - DVT Interval history: Pt seen and examined remained intubated, off pressor discussed with family and RN at the bedside Objective - Constitutional Vitals: Vital Signs - 12hr 04/03/19 04/03/19 04/03/19 22:00 22:42 23:00 Temperature Pulse Rate 103 H 105 H 106 H Pulse Rate [ Anterior Bilateral Throughout] Pulse Rate [ From Monitor] Respiratory 16 15 18 Rate Respiratory Rate [Anterior Bilateral Throughout] Blood Pressure 109/59 109/59 127/56 O2 Sat by Pulse 100 100 98 Oximetry 04/04/19 04/04/19 04/04/19 00:00 00:35 01:00 Temperature 100.6 F H Pulse Rate 103 H 104 H 106 H Pulse Rate [ Anterior Bilateral Throughout] Pulse Rate [ 103 H From Monitor] Respiratory 20 16 Rate Respiratory Rate [Anterior Bilateral Throughout] Blood Pressure 131/67 131/67 148/70 O2 Sat by Pulse 100 100 100 Oximetry 04/04/19 04/04/19 04/04/19 02:00 03:00 04:00 Temperature 100.6 F H Pulse Rate 111 H 110 H 117 H Pulse Rate [ Anterior Bilateral Throughout] Pulse Rate [ 117 H From Monitor] Respiratory 17 13 21 Rate Respiratory Rate [Anterior Bilateral Throughout] Blood Pressure 157/83 133/71 133/71 O2 Sat by Pulse 98 100 Oximetry 04/04/19 04/04/19 04/04/19 04:22 05:00 06:00 Temperature Pulse Rate 117 H 115 H 111 H Pulse Rate [ Anterior Bilateral Throughout] Pulse Rate [ From Monitor] Respiratory 17 12 Rate Respiratory Rate [Anterior Bilateral Throughout] Blood Pressure 133/71 160/66 130/65 O2 Sat by Pulse 100 98 98 Oximetry 04/04/19 04/04/19 04/04/19 07:00 08:34 08:39 Temperature Pulse Rate 109 H 112 H Pulse Rate [ 115 H Anterior Bilateral Throughout] Pulse Rate [ From Monitor] Respiratory 25 H Rate Respiratory 18 Rate [Anterior Bilateral Throughout] Blood Pressure 127/48 140/67 O2 Sat by Pulse 98 100 Oximetry - Labs CBC & Chem 7: 04/05/19 03:30 04/05/19 03:30 Labs: Abnormal lab results 04/04/19 04/04/19 Range/Units 05:20 05:20 RBC 2.27 L (3.65-5.03) M/mm3 Hgb 7.3 L (10.1-14.3) gm/dl Hct 22.0 L (30.3-42.9) % RDW 16.8 H (13.2-15.2) % [place] % (Auto) 12.2 H (0.0-7.3) % Eos % (Auto) 6.6 H (0.0-4.3) % [place] # 1.0 H (0.0-0.8) K/mm3 Eos # 0.5 H (0.0-0.4) K/mm3 Creatinine 0.4 L (0.7-1.2) mg/dL Calcium 7.9 L (8.4-10.2) mg/dL Phosphorus 2.20 L (2.5-4.5) mg/dL Magnesium 1.40 L (1.7-2.3) mg/dL
[2019-04-04] MEDS: BABY ASPIRIN PO SCH (09:54)
[2019-04-04] MEDS: SODIUM CHLORIDE FLUSH SYRINGE 10 ML IV SCH ×2 (09:54→21:13)
[2019-04-04] MEDS: CORDARONE PO SCH ×2 (09:54→21:13)
[2019-04-04] MEDS: PEPCID PO SCH ×2 (09:54→21:13)
[2019-04-04] MEDS ORDERED: FERRLECIT 125 MG in NACL 0.9% 100 ML IV ONE (10:00)
[2019-04-04] MEDS ORDERED: KPHOS 15 MMOL in NACL 0.9% 250ML 250 ML IV ONE (10:00)
[2019-04-04] MEDS: VANCOMYCIN 1,250 MG in NACL 0.9% 250ML 250 ML IV SCH (10:01)
[2019-04-04] MEDS: TYLENOL FEEDTUBE PRN (10:10)
--- NOTE | 2019-04-04 11:10 | Progress Note ---
Assessment and Plan Cultures/ID related labs: 03/27 tracheal aspirate - heavy neutrophils, usual resp maday Blood culture 03/19/2019 negative. Urine culture 03/19/2019 negative. 03/23/2019 tracheal aspirate culture: Usual resp maday Assessment: 73 y/o female with history of dementia, prior CVA, on home hospice admitted on 03/20/2019 brought by EMS due to altered mental status: 1) Sepsis with septic shock: source pneumonia but persistent fever. UA negative . Blood culture 03/19/2019 no growth. Urine culture 03/19/2019 negative. Will stop antibiotics as per #6. If patient decompensates would restart vanc and wiley. Has completed full course for pneumonia. 2) Bilateral pneumonia: ? aspiration v/s CAP. Trach aspirate cultures usual resp maday, <25 WBC. 3) Acute encephalopathy: CT head without contrast shows encephalomalacia in the entire right cerebral hemisphere, volume loss in the left cerebral hemisphere, no acute parenchymal lesion in the brain. 4) Acute respiratory failure: remains intubated, on the vent. Responsive to commands today. 5) HA: improved. 6) Persistent fevers - Possible drug fever. Will stop antibiotics today and monitor fever curve closely. 7) DVTs - DVT of RIJ at catheter site as well as R common femoral, and a superficial thrombus in R greater saphenous Will continue to follow along with you. Recommendations: stop vancomycin stop meropenem monitor closely low threshold to restart ABx if she decompensates Guarded prognosis, was on home hospice prior to admission MD [facility] C: [phone] O: [phone] F: [phone] Subjective Date of service: 04/04/19 Principal diagnosis: anemia - DVT Interval history: Remains intubated. Weakly responsive to commands. Fevers ongoing. Objective - Exam Narrative Exam: Constitutional: asleep, no distress, weakly following commands Head, Ears, Nose: Normocephalic, atraumatic. External ears, nose normal Eyes: Conjunctivae/corneas clear. No icterus. No ptosis. Neck: Supple, no meningeal signs Oral: Intubated Cardiovascular: S1, S2 normal. Normal rhythm Respiratory: Good air entry, clear to auscultation bilaterally GI: Soft, non-tender; bowel sounds normal. No peritoneal signs Musculoskeletal: No pedal edema Skin: No rash or abscess Hem/Lymphatic: No palpable cervical or supraclavicular nodes. No lymphangitis Psych: no agitation Neurological: weak, 3/5 strength extremities. - Constitutional Vitals: Vital Signs Temp Pulse Resp BP Pulse Ox 101 F H 116 H 31 H 145/58 97 04/04/19 08:00 04/04/19 10:00 04/04/19 10:00 04/04/19 10:00 04/04/19 10:00 Temperature -Last 24 Hours Temperature 101 F Temperature 100.6 F Temperature 100.6 F Temperature 100.5 F Temperature 102 F Temperature 99.8 F Temperature 100.7 F - Labs CBC & Chem 7: 04/04/19 05:20 04/04/19 05:20 Labs: Abnormal lab results 04/04/19 04/04/19 Range/Units 05:20 05:20 RBC 2.27 L (3.65-5.03) M/mm3 Hgb 7.3 L (10.1-14.3) gm/dl Hct 22.0 L (30.3-42.9) % RDW 16.8 H (13.2-15.2) % [place] % (Auto) 12.2 H (0.0-7.3) % Eos % (Auto) 6.6 H (0.0-4.3) % [place] # 1.0 H (0.0-0.8) K/mm3 Eos # 0.5 H (0.0-0.4) K/mm3 Creatinine 0.4 L (0.7-1.2) mg/dL Calcium 7.9 L (8.4-10.2) mg/dL Phosphorus 2.20 L (2.5-4.5) mg/dL Magnesium 1.40 L (1.7-2.3) mg/dL
[2019-04-04] MEDS ORDERED: LASIX IV ONE (14:07)
--- NOTE | 2019-04-04 14:12 | Progress Note ---
Assessment and Plan Imp: 1. Aspiration pneumonitis 2. Sepsis 3. Thrombocytopenia 2/2 above, better 4. Acute respiratory failure, hypoxia 5. HA/lactic acidosis, better 6. Hx of CVA 7. Acute DVT Rec: 1. ABX stopped today; ? drug fever, or her DVTs may be the source; if persistent fever consider repeat blood cultures +/- CVL removal (IV access has been a prob vannesa though) 2. Daily PSV trials, although she has been intubated for ~ 2 weeks and I do not believe she will be able to clear her airway on her own going forward, has high aspiration risk, etc.; trach/PEG will be necessary if aggressive treatment is continued, and this was discussed again with daughter on 04/03/19 who is still trying to weigh the options; in my opinion hospice seems most appropriate as patient would require 24/7 nursing care in a SNF with little to no quality of life 3. TFs 4. CXR unchanged; repeat sputum culture in light of fever; gently diurese; replete mag and phos 5. Consider resuming anticoagulation when okay with hematology/IMS; HIT is negative; would not start Eliquis or Xarelto until final decision made re: trach/PEG 6. Prognosis remains guarded to poor; family requesting transfer to [facility] but since there is nothing they have there that [facility] does not offer, this would be a lateral transfer and not likely approved/covered by patient's insurance; this was discussed in detail with daughter by high risk case manager Lynette CCT 31 minutes Plan of care reviewed w/ patient's daughter Caterina by phone on 04/03/19, she understands/agrees; discussed with patient's today and answered his questions Subjective Date of service: 04/04/19 Principal diagnosis: anemia - DVT Interval history: No events. Awake, alert, moves R hand/squeezes on command, and tracks w/ eyes. N o obvious complaints although hx is difficult. No bleeding. + Fever. Active Medications Acetaminophen (Tylenol) 650 mg FEEDTUBE Q6H PRN PRN Reason: Fever >101 Last Admin: 04/04/19 10:10 Dose: 650 mg Documented by: Albuterol (Proventil) 2.5 mg IH Q3HRT PRN PRN Reason: Shortness Of Breath Albuterol/Ipratropium (Duoneb *Not For Prn Use*) 1 ampul IH Q6HRT [facility] Last Admin: 04/04/19 13:23 Dose: 1 ampul Documented by: Amiodarone HCl (Cordarone) 200 mg PO BID [facility] Last Admin: 04/04/19 09:54 Dose: 200 mg Documented by: Lipase/Protease/Amylase (Pancreaze Dr 10,500 Unit) 1 each FEEDTUBE PRN PRN PRN Reason: For Clogged Feeding Tube Aspirin (Baby Aspirin) 81 mg PO DAILY [facility] Last Admin: 04/04/19 09:54 Dose: 81 mg Documented by: Budesonide (Pulmicort) 0.5 mg IH Q12HRT [facility] Last Admin: 04/04/19 08:39 Dose: 0.5 mg Documented by: Dextrose (D50w (25gm) Syringe) 50 ml IV PRN PRN PRN Reason: Hypoglycemia Last Admin: 03/21/19 16:29 Dose: 50 ml Documented by: Famotidine (Pepcid) 20 mg PO BID [facility] Last Admin: 04/04/19 09:54 Dose: 20 mg Documented by: Fentanyl (Sublimaze) 50 mcg IV Q10MIN PRN PRN Reason: ANALGESIA Last Admin: 03/19/19 13:26 Dose: 50 mcg Documented by: Hydromorphone HCl (Dilaudid) 0.5 mg IV Q3H PRN PRN Reason: Pain , Severe (7-10) Hydrophilic Ointment (Vaseline Lip Therapy) 1 applic TP Q2HR PRN PRN Reason: Dry Lips Fentanyl Citrate (Fentanyl Drip Premix) 2,000 mcg in 100 mls @ 2.835 mls/hr IV TITR [facility]; Protocol Last Titration: 03/21/19 11:33 Dose: 0 mcg/kg/hr, 0 mls/hr Documented by: Norepinephrine (Levophed Drip 4 Mg/Ns 250 Ml) 4 mg in 250 mls @ 7.5 mls/hr IV TITR [facility]; Protocol Last Titration: 03/30/19 23:45 Dose: 0 mcg/min, 0 mls/hr Documented by: Insulin Human Lispro (Humalog) 0 unit SUB-Q Q6HR [facility]; Protocol Last Admin: 04/04/19 06:53 Dose: Not Given Documented by: Metoclopramide HCl (Reglan) 5 mg IV Q6H PRN PRN Reason: Nausea And Vomiting Metoprolol Tartrate (Lopressor) 2.5 mg IV Q2HR PRN PRN Reason: HR >150 Last Admin: 03/24/19 21:20 Dose: 2.5 mg Documented by: Multi-Ingred Cream/Lotion/Oil/Oint (Artificial Tears Ophth Oint) 1 applic OU Q4HR PRN PRN Reason: Dry Eye(s) Ondansetron HCl (Zofran) 4 mg IV Q8H PRN PRN Reason: Nausea And Vomiting Promethazine HCl (Phenergan) 25 mg UT Q6H PRN PRN Reason: N/V IF NPO AND NO IV ACCESS Simple Syrup (Simple Syrup) 15 ml FEEDTUBE PRN PRN PRN Reason: Hypoglycemia Last Admin: 04/03/19 00:55 Dose: 15 ml Documented by: Simple Syrup (Simple Syrup) 30 ml FEEDTUBE PRN PRN PRN Reason: Hypoglycemia Sodium Bicarbonate (Sodium Bicarbonate) 325 mg FEEDTUBE PRN PRN PRN Reason: For Clogged Feeding Tube Sodium Chloride (Sodium Chloride Flush Syringe 10 Ml) 10 ml IV BID [facility] Last Admin: 04/04/19 09:54 Dose: 10 ml Documented by: Sodium Chloride (Sodium Chloride Flush Syringe 10 Ml) 10 ml IV PRN PRN PRN Reason: LINE FLUSH Objective Vital Signs - 12hr 04/04/19 04/04/19 04/04/19 03:00 04:00 04:22 Temperature 100.6 F H Pulse Rate 110 H 117 H 117 H Pulse Rate [ Anterior Bilateral Throughout] Pulse Rate [ 117 H From Monitor] Respiratory 13 21 Rate Respiratory Rate [Anterior Bilateral Throughout] Blood Pressure 133/71 133/71 133/71 O2 Sat by Pulse 98 100 100 Oximetry 04/04/19 04/04/19 04/04/19 05:00 06:00 07:00 Temperature Pulse Rate 115 H 111 H 109 H Pulse Rate [ Anterior Bilateral Throughout] Pulse Rate [ From Monitor] Respiratory 17 12 25 H Rate Respiratory Rate [Anterior Bilateral Throughout] Blood Pressure 160/66 130/65 127/48 O2 Sat by Pulse 98 98 98 Oximetry 04/04/19 04/04/19 04/04/19 08:00 08:34 08:39 Temperature 101 F H Pulse Rate 116 H 112 H Pulse Rate [ 115 H Anterior Bilateral Throughout] Pulse Rate [ 115 H From Monitor] Respiratory 22 Rate Respiratory 18 Rate [Anterior Bilateral Throughout] Blood Pressure 140/67 140/67 O2 Sat by Pulse 97 100 Oximetry 04/04/19 04/04/19 04/04/19 09:00 10:00 11:00 Temperature Pulse Rate 114 H 116 H 105 H Pulse Rate [ Anterior Bilateral Throughout] Pulse Rate [ From Monitor] Respiratory 14 31 H 16 Rate Respiratory Rate [Anterior Bilateral Throughout] Blood Pressure 122/55 145/58 123/59 O2 Sat by Pulse 95 97 96 Oximetry 04/04/19 04/04/19 04/04/19 11:36 12:00 13:00 Temperature 100.9 F H Pulse Rate 110 H 108 H 103 H Pulse Rate [ Anterior Bilateral Throughout] Pulse Rate [ 115 H From Monitor] Respiratory 14 16 Rate Respiratory Rate [Anterior Bilateral Throughout] Blood Pressure 123/59 108/47 115/58 O2 Sat by Pulse 98 96 Oximetry 04/04/19 13:24 Temperature Pulse Rate Pulse Rate [ 101 H Anterior Bilateral Throughout] Pulse Rate [ From Monitor] Respiratory Rate Respiratory 17 Rate [Anterior Bilateral Throughout] Blood Pressure O2 Sat by Pulse Oximetry Constitutional: other (intubated, critically ill on ventilator, awake) Eyes: non-icteric ENT: other (intubated ) Neck: supple Effort: normal, other (poor efforts ) Ascultation: Bilateral: other (coarse BS bilaterally) Cardiovascular: other (tachy AF, no mrg) Gastrointestinal: normoactive bowel sounds, soft, non-tender, non-distended Integumentary: normal Extremities: anasarca Neurologic: other (awake, alert, L sided hemiparesis, contractures upper extremities) Psychiatric: mood appropriate, affect normal CBC and BMP: 04/04/19 05:20 04/04/19 05:20 ABG, PT/INR, D-dimer: ABG POC ABG pH 7.411 (7.35-7.45) 03/25/19 05:40 POC ABG pO2 83 (80-105) 03/25/19 05:40 POC ABG HCO3 17.7 (22-26 mml/L) 03/25/19 05:40 POC ABG Total CO2 19 (23-27mmol/L) 03/25/19 05:40 POC ABG O2 Sat 97 03/25/19 05:40 PT/INR, D-dimer PT 21.4 Sec. (12.2-14.9) H 03/27/19 14:04 INR 1.90 (0.87-1.13) H 03/27/19 14:04 Abnormal lab findings: Abnormal Labs 03/19/19 03/19/19 03/19/19 12:59 12:59 12:59 WBC RBC 3.44 L Hgb Hct MCV 101 H MCH 34 H MCHC RDW Plt Count 98 L Lymph % (Auto) [place] % (Auto) Eos % (Auto) Lymph # [place] # Eos # Seg Neutrophils % Seg Neuts % (Manual) 11.0 L Lymphocytes % (Manual) Monocytes % (Manual) 10.0 H Eosinophils % (Manual) Nucleated RBC % 1.0 H Seg Neutrophils # Seg Neutrophils # Man 0.6 L Lymphocytes # (Manual) Monocytes # (Manual) Eosinophils # (Manual) PT INR APTT POC ABG pH POC ABG pCO2 POC ABG pO2 Sodium 149 H Potassium Chloride 109.4 H Carbon Dioxide BUN 51 H Creatinine 3.2 H Glucose 58 L POC Glucose Lactic Acid 7.60 H* Calcium 7.8 L Phosphorus Magnesium 1.60 L Iron TIBC Ferritin Direct Bilirubin AST 75 H Total Creatine Kinase 1499 H Troponin T 0.109 H* Total Protein 5.2 L Albumin 1.7 L Prealbumin LDL Cholesterol Direct 22 L HDL Cholesterol 31 L Vitamin B12 TSH PTH Intact Urine Creatinine Urine Total Protein Vancomycin Trough Digoxin Salicylates Acetaminophen Crossmatch 03/19/19 03/19/19 03/19/19 12:59 12:59 14:48 WBC RBC Hgb Hct MCV MCH MCHC RDW Plt Count Lymph % (Auto) [place] % (Auto) Eos % (Auto) Lymph # [place] # Eos # Seg Neutrophils % Seg Neuts % (Manual) Lymphocytes % (Manual) Monocytes % (Manual) Eosinophils % (Manual) Nucleated RBC % Seg Neutrophils # Seg Neutrophils # Man Lymphocytes # (Manual) Monocytes # (Manual) Eosinophils # (Manual) PT INR APTT POC ABG pH POC ABG pCO2 POC ABG pO2 Sodium Potassium Chloride Carbon Dioxide BUN Creatinine Glucose POC Glucose 44 L Lactic Acid Calcium Phosphorus Magnesium Iron TIBC Ferritin Direct Bilirubin AST Total Creatine Kinase Troponin T Total Protein Albumin Prealbumin LDL Cholesterol Direct HDL Cholesterol Vitamin B12 TSH PTH Intact Urine Creatinine Urine Total Protein Vancomycin Trough Digoxin Salicylates < 0.3 L Acetaminophen < 5.0 L Crossmatch 03/19/19 03/19/19 03/19/19 15:33 15:52 16:26 WBC RBC Hgb Hct MCV MCH MCHC RDW Plt Count Lymph % (Auto) [place] % (Auto) Eos % (Auto) Lymph # [place] # Eos # Seg Neutrophils % Seg Neuts % (Manual) Lymphocytes % (Manual) Monocytes % (Manual) Eosinophils % (Manual) Nucleated RBC % Seg Neutrophils # Seg Neutrophils # Man Lymphocytes # (Manual) Monocytes # (Manual) Eosinophils # (Manual) PT INR APTT POC ABG pH POC ABG pCO2 POC ABG pO2 Sodium Potassium Chloride Carbon Dioxide BUN Creatinine Glucose POC Glucose 228 H 231 H Lactic Acid Calcium Phosphorus Magnesium Iron TIBC Ferritin Direct Bilirubin AST Total Creatine Kinase Troponin T Total Protein Albumin Prealbumin LDL Cholesterol Direct HDL Cholesterol Vitamin B12 TSH PTH Intact Urine Creatinine 31.8 H Urine Total Protein Vancomycin Trough Digoxin Salicylates Acetaminophen Crossmatch 03/19/19 03/19/19 03/19/19 16:38 17:14 18:43 WBC RBC Hgb Hct MCV MCH MCHC RDW Plt Count Lymph % (Auto) [place] % (Auto) Eos % (Auto) Lymph # [place] # Eos # Seg Neutrophils % Seg Neuts % (Manual) Lymphocytes % (Manual) Monocytes % (Manual) Eosinophils % (Manual) Nucleated RBC % Seg Neutrophils # Seg Neutrophils # Man Lymphocytes # (Manual) Monocytes # (Manual) Eosinophils # (Manual) PT INR APTT POC ABG pH 7.196 L POC ABG pCO2 30.8 L POC ABG pO2 Sodium Potassium Chloride Carbon Dioxide BUN Creatinine Glucose POC Glucose 235 H Lactic Acid 8.10 H* Calcium Phosphorus Magnesium Iron TIBC Ferritin Direct Bilirubin AST Total Creatine Kinase Troponin T Total Protein Albumin Prealbumin LDL Cholesterol Direct HDL Cholesterol Vitamin B12 TSH PTH Intact Urine Creatinine Urine Total Protein Vancomycin Trough Digoxin Salicylates Acetaminophen Crossmatch 03/19/19 03/19/19 03/19/19 18:52 20:00 20:56 WBC RBC Hgb Hct MCV MCH MCHC RDW Plt Count Lymph % (Auto) [place] % (Auto) Eos % (Auto) Lymph # [place] # Eos # Seg Neutrophils % Seg Neuts % (Manual) Lymphocytes % (Manual) Monocytes % (Manual) Eosinophils % (Manual) Nucleated RBC % Seg Neutrophils # Seg Neutrophils # Man Lymphocytes # (Manual) Monocytes # (Manual) Eosinophils # (Manual) PT INR APTT POC ABG pH POC ABG pCO2 POC ABG pO2 Sodium Potassium Chloride Carbon Dioxide BUN Creatinine Glucose POC Glucose 240 H 117 H Lactic Acid 5.90 H* Calcium Phosphorus Magnesium Iron TIBC Ferritin Direct Bilirubin AST Total Creatine Kinase Troponin T Total Protein Albumin Prealbumin LDL Cholesterol Direct HDL Cholesterol Vitamin B12 TSH PTH Intact Urine Creatinine Urine Total Protein Vancomycin Trough Digoxin Salicylates Acetaminophen Crossmatch 03/19/19 03/19/19 03/19/19 21:19 22:07 23:00 WBC RBC Hgb Hct MCV MCH MCHC RDW Plt Count Lymph % (Auto) [place] % (Auto) Eos % (Auto) Lymph # [place] # Eos # Seg Neutrophils % Seg Neuts % (Manual) Lymphocytes % (Manual) Monocytes % (Manual) Eosinophils % (Manual) Nucleated RBC % Seg Neutrophils # Seg Neutrophils # Man Lymphocytes # (Manual) Monocytes # (Manual) Eosinophils # (Manual) PT INR APTT POC ABG pH POC ABG pCO2 POC ABG pO2 Sodium Potassium Chloride Carbon Dioxide BUN Creatinine Glucose POC Glucose < 40 L 136 H Lactic Acid 6.10 H* Calcium Phosphorus Magnesium Iron TIBC Ferritin Direct Bilirubin AST Total Creatine Kinase Troponin T Total Protein Albumin Prealbumin LDL Cholesterol Direct HDL Cholesterol Vitamin B12 TSH PTH Intact Urine Creatinine Urine Total Protein Vancomycin Trough Digoxin Salicylates Acetaminophen Crossmatch 03/20/19 03/20/19 03/20/19 00:05 01:38 02:23 WBC RBC Hgb Hct MCV MCH MCHC RDW Plt Count Lymph % (Auto) [place] % (Auto) Eos % (Auto) Lymph # [place] # Eos # Seg Neutrophils % Seg Neuts % (Manual) Lymphocytes % (Manual) Monocytes % (Manual) Eosinophils % (Manual) Nucleated RBC % Seg Neutrophils # Seg Neutrophils # Man Lymphocytes # (Manual) Monocytes # (Manual) Eosinophils # (Manual) PT INR APTT POC ABG pH POC ABG pCO2 POC ABG pO2 Sodium Potassium Chloride Carbon Dioxide BUN Creatinine Glucose POC Glucose 68 L 153 H 127 H Lactic Acid Calcium Phosphorus Magnesium Iron TIBC Ferritin Direct Bilirubin AST Total Creatine Kinase Troponin T Total Protein Albumin Prealbumin LDL Cholesterol Direct HDL Cholesterol Vitamin B12 TSH PTH Intact Urine Creatinine Urine Total Protein Vancomycin Trough Digoxin Salicylates Acetaminophen Crossmatch 03/20/19 03/20/19 03/20/19 03:12 04:31 04:41 WBC RBC Hgb Hct MCV MCH MCHC RDW Plt Count Lymph % (Auto) [place] % (Auto) Eos % (Auto) Lymph # [place] # Eos # Seg Neutrophils % Seg Neuts % (Manual) Lymphocytes % (Manual) Monocytes % (Manual) Eosinophils % (Manual) Nucleated RBC % Seg Neutrophils # Seg Neutrophils # Man Lymphocytes # (Manual) Monocytes # (Manual) Eosinophils # (Manual) PT INR APTT POC ABG pH POC ABG pCO2 POC ABG pO2 53 L 65 L Sodium Potassium Chloride Carbon Dioxide BUN Creatinine Glucose POC Glucose 109 H Lactic Acid Calcium Phosphorus Magnesium Iron TIBC Ferritin Direct Bilirubin AST Total Creatine Kinase Troponin T Total Protein Albumin Prealbumin LDL Cholesterol Direct HDL Cholesterol Vitamin B12 TSH PTH Intact Urine Creatinine Urine Total Protein Vancomycin Trough Digoxin Salicylates Acetaminophen Crossmatch 03/20/19 03/20/19 03/20/19 05:50 07:29 08:14 WBC RBC Hgb Hct MCV MCH MCHC RDW Plt Count Lymph % (Auto) [place] % (Auto) Eos % (Auto) Lymph # [place] # Eos # Seg Neutrophils % Seg Neuts % (Manual) Lymphocytes % (Manual) Monocytes % (Manual) Eosinophils % (Manual) Nucleated RBC % Seg Neutrophils # Seg Neutrophils # Man Lymphocytes # (Manual) Monocytes # (Manual) Eosinophils # (Manual) PT INR APTT POC ABG pH POC ABG pCO2 POC ABG pO2 Sodium Potassium Chloride Carbon Dioxide BUN Creatinine Glucose 61 L POC Glucose 47 L 153 H Lactic Acid Calcium Phosphorus Magnesium 1.60 L Iron TIBC Ferritin Direct Bilirubin AST Total Creatine Kinase Troponin T Total Protein Albumin Prealbumin LDL Cholesterol Direct HDL Cholesterol Vitamin B12 TSH PTH Intact Urine Creatinine Urine Total Protein Vancomycin Trough Digoxin Salicylates Acetaminophen Crossmatch 03/20/19 03/20/19 03/20/19 08:23 08:23 10:59 WBC RBC Hgb Hct MCV MCH MCHC RDW Plt Count Lymph % (Auto) [place] % (Auto) Eos % (Auto) Lymph # [place] # Eos # Seg Neutrophils % Seg Neuts % (Manual) Lymphocytes % (Manual) Monocytes % (Manual) Eosinophils % (Manual) Nucleated RBC % Seg Neutrophils # Seg Neutrophils # Man Lymphocytes # (Manual) Monocytes # (Manual) Eosinophils # (Manual) PT INR APTT POC ABG pH POC ABG pCO2 POC ABG pO2 Sodium Potassium Chloride Carbon Dioxide BUN Creatinine Glucose 101 H POC Glucose 233 H Lactic Acid 9.70 H* Calcium Phosphorus Magnesium Iron TIBC Ferritin Direct Bilirubin AST Total Creatine Kinase Troponin T Total Protein Albumin Prealbumin 0.052 L LDL Cholesterol Direct HDL Cholesterol Vitamin B12 TSH PTH Intact Urine Creatinine Urine Total Protein Vancomycin Trough Digoxin Salicylates Acetaminophen Crossmatch 03/20/19 03/20/19 03/20/19 12:23 16:10 16:40 WBC RBC Hgb Hct MCV MCH MCHC RDW Plt Count Lymph % (Auto) [place] % (Auto) Eos % (Auto) Lymph # [place] # Eos # Seg Neutrophils % Seg Neuts % (Manual) Lymphocytes % (Manual) Monocytes % (Manual) Eosinophils % (Manual) Nucleated RBC % Seg Neutrophils # Seg Neutrophils # Man Lymphocytes # (Manual) Monocytes # (Manual) Eosinophils # (Manual) PT INR APTT POC ABG pH POC ABG pCO2 POC ABG pO2 Sodium Potassium Chloride Carbon Dioxide BUN Creatinine Glucose POC Glucose 135 H 171 H Lactic Acid Calcium Phosphorus Magnesium Iron TIBC Ferritin Direct Bilirubin AST Total Creatine Kinase Troponin T Total Protein Albumin Prealbumin LDL Cholesterol Direct HDL Cholesterol Vitamin B12 TSH PTH Intact Urine Creatinine 53.7 H Urine Total Protein 36 H Vancomycin Trough Digoxin Salicylates Acetaminophen Crossmatch 03/20/19 03/20/19 03/20/19 16:57 17:38 17:50 WBC RBC Hgb Hct MCV MCH MCHC RDW Plt Count Lymph % (Auto) [place] % (Auto) Eos % (Auto) Lymph # [place] # Eos # Seg Neutrophils % Seg Neuts % (Manual) Lymphocytes % (Manual) Monocytes % (Manual) Eosinophils % (Manual) Nucleated RBC % Seg Neutrophils # Seg Neutrophils # Man Lymphocytes # (Manual) Monocytes # (Manual) Eosinophils # (Manual) PT INR APTT POC ABG pH POC ABG pCO2 POC ABG pO2 Sodium Potassium Chloride Carbon Dioxide BUN Creatinine Glucose POC Glucose 152 H 147 H Lactic Acid 9.90 H* Calcium Phosphorus Magnesium Iron TIBC Ferritin Direct Bilirubin AST Total Creatine Kinase Troponin T Total Protein Albumin Prealbumin LDL Cholesterol Direct HDL Cholesterol Vitamin B12 TSH PTH Intact Urine Creatinine Urine Total Protein Vancomycin Trough Digoxin Salicylates Acetaminophen Crossmatch 03/20/19 03/20/19 03/20/19 17:50 17:50 17:50 WBC RBC 2.92 L Hgb 10.0 L Hct 29.3 L MCV 100 H MCH 34 H MCHC RDW Plt Count 81 L Lymph % (Auto) [place] % (Auto) Eos % (Auto) Lymph # [place] # Eos # Seg Neutrophils % Seg Neuts % (Manual) Lymphocytes % (Manual) Monocytes % (Manual) Eosinophils % (Manual) Nucleated RBC % Seg Neutrophils # Seg Neutrophils # Man Lymphocytes # (Manual) Monocytes # (Manual) Eosinophils # (Manual) PT INR APTT POC ABG pH POC ABG pCO2 POC ABG pO2 Sodium Potassium 2.8 L* D Chloride Carbon Dioxide BUN 30 H Creatinine 1.6 H Glucose 107 H POC Glucose Lactic Acid Calcium 6.9 L Phosphorus 2.00 L Magnesium Iron TIBC Ferritin Direct Bilirubin AST Total Creatine Kinase Troponin T Total Protein Albumin Prealbumin LDL Cholesterol Direct HDL Cholesterol Vitamin B12 TSH PTH Intact 171.6 H Urine Creatinine Urine Total Protein Vancomycin Trough Digoxin Salicylates Acetaminophen Crossmatch 03/20/19 03/21/19 03/21/19 21:12 00:30 04:12 WBC RBC Hgb Hct MCV MCH MCHC RDW Plt Count Lymph % (Auto) [place] % (Auto) Eos % (Auto) Lymph # [place] # Eos # Seg Neutrophils % Seg Neuts % (Manual) Lymphocytes % (Manual) Monocytes % (Manual) Eosinophils % (Manual) Nucleated RBC % Seg Neutrophils # Seg Neutrophils # Man Lymphocytes # (Manual) Monocytes # (Manual) Eosinophils # (Manual) PT INR APTT POC ABG pH POC ABG pCO2 POC ABG pO2 Sodium Potassium 3.0 L Chloride Carbon Dioxide 21 L BUN Creatinine 1.4 H Glucose 103 H POC Glucose Lactic Acid 8.70 H* 9.40 H* Calcium 6.8 L Phosphorus Magnesium Iron TIBC Ferritin Direct Bilirubin AST Total Creatine Kinase Troponin T Total Protein Albumin Prealbumin LDL Cholesterol Direct HDL Cholesterol Vitamin B12 TSH PTH Intact Urine Creatinine Urine Total Protein Vancomycin Trough Digoxin Salicylates Acetaminophen Crossmatch 03/21/19 03/21/19 03/21/19 04:12 04:12 04:43 WBC RBC 2.84 L Hgb 9.5 L Hct 28.3 L MCV 100 H MCH 33 H MCHC RDW Plt Count 79 L Lymph % (Auto) [place] % (Auto) Eos % (Auto) Lymph # [place] # Eos # Seg Neutrophils % Seg Neuts % (Manual) Lymphocytes % (Manual) Monocytes % (Manual) Eosinophils % (Manual) Nucleated RBC % Seg Neutrophils # Seg Neutrophils # Man Lymphocytes # (Manual) Monocytes # (Manual) Eosinophils # (Manual) PT INR APTT POC ABG pH 7.456 H POC ABG pCO2 POC ABG pO2 Sodium Potassium Chloride Carbon Dioxide BUN Creatinine Glucose POC Glucose Lactic Acid 9.50 H* Calcium Phosphorus Magnesium Iron TIBC Ferritin Direct Bilirubin AST Total Creatine Kinase Troponin T Total Protein Albumin Prealbumin LDL Cholesterol Direct HDL Cholesterol Vitamin B12 TSH PTH Intact Urine Creatinine Urine Total Protein Vancomycin Trough Digoxin Salicylates Acetaminophen Crossmatch 03/21/19 03/21/19 03/21/19 08:06 08:08 10:11 WBC RBC Hgb Hct MCV MCH MCHC RDW Plt Count Lymph % (Auto) [place] % (Auto) Eos % (Auto) Lymph # [place] # Eos # Seg Neutrophils % Seg Neuts % (Manual) Lymphocytes % (Manual) Monocytes % (Manual) Eosinophils % (Manual) Nucleated RBC % Seg Neutrophils # Seg Neutrophils # Man Lymphocytes # (Manual) Monocytes # (Manual) Eosinophils # (Manual) PT INR APTT POC ABG pH POC ABG pCO2 POC ABG pO2 Sodium Potassium 3.5 L Chloride Carbon Dioxide BUN 22 H Creatinine 1.3 H Glucose POC Glucose 64 L Lactic Acid 8.00 H* Calcium 7.0 L Phosphorus Magnesium Iron TIBC Ferritin Direct Bilirubin AST Total Creatine Kinase Troponin T Total Protein Albumin Prealbumin LDL Cholesterol Direct HDL Cholesterol Vitamin B12 TSH PTH Intact Urine Creatinine Urine Total Protein Vancomycin Trough Digoxin Salicylates Acetaminophen Crossmatch 03/21/19 03/21/19 03/21/19 11:17 12:17 13:37 WBC RBC Hgb Hct MCV MCH MCHC RDW Plt Count Lymph % (Auto) [place] % (Auto) Eos % (Auto) Lymph # [place] # Eos # Seg Neutrophils % Seg Neuts % (Manual) Lymphocytes % (Manual) Monocytes % (Manual) Eosinophils % (Manual) Nucleated RBC % Seg Neutrophils # Seg Neutrophils # Man Lymphocytes # (Manual) Monocytes # (Manual) Eosinophils # (Manual) PT INR APTT POC ABG pH POC ABG pCO2 POC ABG pO2 Sodium Potassium Chloride Carbon Dioxide BUN Creatinine Glucose POC Glucose 173 H 110 H Lactic Acid Calcium Phosphorus Magnesium Iron TIBC Ferritin Direct Bilirubin AST Total Creatine Kinase Troponin T 0.033 H D Total Protein Albumin Prealbumin LDL Cholesterol Direct HDL Cholesterol Vitamin B12 TSH PTH Intact Urine Creatinine Urine Total Protein Vancomycin Trough Digoxin Salicylates Acetaminophen Crossmatch 03/21/19 03/21/19 03/21/19 13:37 17:21 18:52 WBC RBC Hgb Hct MCV MCH MCHC RDW Plt Count Lymph % (Auto) [place] % (Auto) Eos % (Auto) Lymph # [place] # Eos # Seg Neutrophils % Seg Neuts % (Manual) Lymphocytes % (Manual) Monocytes % (Manual) Eosinophils % (Manual) Nucleated RBC % Seg Neutrophils # Seg Neutrophils # Man Lymphocytes # (Manual) Monocytes # (Manual) Eosinophils # (Manual) PT INR APTT POC ABG pH POC ABG pCO2 POC ABG pO2 Sodium Potassium Chloride Carbon Dioxide BUN Creatinine Glucose POC Glucose 130 H 107 H Lactic Acid 6.80 H* Calcium Phosphorus Magnesium Iron TIBC Ferritin Direct Bilirubin AST Total Creatine Kinase Troponin T Total Protein Albumin Prealbumin LDL Cholesterol Direct HDL Cholesterol Vitamin B12 TSH PTH Intact Urine Creatinine Urine Total Protein Vancomycin Trough Digoxin Salicylates Acetaminophen Crossmatch 03/21/19 03/21/19 03/21/19 20:20 22:08 23:05 WBC RBC Hgb Hct MCV MCH MCHC RDW Plt Count Lymph % (Auto) [place] % (Auto) Eos % (Auto) Lymph # [place] # Eos # Seg Neutrophils % Seg Neuts % (Manual) Lymphocytes % (Manual) Monocytes % (Manual) Eosinophils % (Manual) Nucleated RBC % Seg Neutrophils # Seg Neutrophils # Man Lymphocytes # (Manual) Monocytes # (Manual) Eosinophils # (Manual) PT INR APTT POC ABG pH POC ABG pCO2 POC ABG pO2 Sodium Potassium Chloride Carbon Dioxide BUN Creatinine Glucose POC Glucose 106 H 106 H Lactic Acid Calcium Phosphorus Magnesium Iron TIBC Ferritin Direct Bilirubin AST Total Creatine Kinase Troponin T 0.036 H Total Protein Albumin Prealbumin LDL Cholesterol Direct HDL Cholesterol Vitamin B12 TSH PTH Intact Urine Creatinine Urine Total Protein Vancomycin Trough Digoxin Salicylates Acetaminophen Crossmatch 03/21/19 03/21/19 03/22/19 23:05 23:05 00:14 WBC RBC Hgb Hct MCV MCH MCHC RDW Plt Count Lymph % (Auto) [place] % (Auto) Eos % (Auto) Lymph # [place] # Eos # Seg Neutrophils % Seg Neuts % (Manual) Lymphocytes % (Manual) Monocytes % (Manual) Eosinophils % (Manual) Nucleated RBC % Seg Neutrophils # Seg Neutrophils # Man Lymphocytes # (Manual) Monocytes # (Manual) Eosinophils # (Manual) PT INR APTT POC ABG pH POC ABG pCO2 POC ABG pO2 Sodium Potassium Chloride Carbon Dioxide BUN Creatinine Glucose POC Glucose 122 H 109 H Lactic Acid 7.00 H* Calcium Phosphorus Magnesium Iron TIBC Ferritin Direct Bilirubin AST Total Creatine Kinase Troponin T Total Protein Albumin Prealbumin LDL Cholesterol Direct HDL Cholesterol Vitamin B12 TSH PTH Intact Urine Creatinine Urine Total Protein Vancomycin Trough Digoxin Salicylates Acetaminophen Crossmatch 03/22/19 03/22/19 03/22/19 03:10 04:02 05:11 WBC RBC Hgb Hct MCV MCH MCHC RDW Plt Count Lymph % (Auto) [place] % (Auto) Eos % (Auto) Lymph # [place] # Eos # Seg Neutrophils % Seg Neuts % (Manual) Lymphocytes % (Manual) Monocytes % (Manual) Eosinophils % (Manual) Nucleated RBC % Seg Neutrophils # Seg Neutrophils # Man Lymphocytes # (Manual) Monocytes # (Manual) Eosinophils # (Manual) PT INR APTT POC ABG pH 7.487 H POC ABG pCO2 POC ABG pO2 67 L Sodium Potassium Chloride Carbon Dioxide BUN Creatinine Glucose POC Glucose 114 H 112 H Lactic Acid Calcium Phosphorus Magnesium Iron TIBC Ferritin Direct Bilirubin AST Total Creatine Kinase Troponin T Total Protein Albumin Prealbumin LDL Cholesterol Direct HDL Cholesterol Vitamin B12 TSH PTH Intact Urine Creatinine Urine Total Protein Vancomycin Trough Digoxin Salicylates Acetaminophen Crossmatch 03/22/19 03/22/19 03/22/19 06:06 06:10 06:10 WBC RBC Hgb Hct MCV MCH MCHC RDW Plt Count Lymph % (Auto) [place] % (Auto) Eos % (Auto) Lymph # [place] # Eos # Seg Neutrophils % Seg Neuts % (Manual) Lymphocytes % (Manual) Monocytes % (Manual) Eosinophils % (Manual) Nucleated RBC % Seg Neutrophils # Seg Neutrophils # Man Lymphocytes # (Manual) Monocytes # (Manual) Eosinophils # (Manual) PT INR APTT POC ABG pH POC ABG pCO2 POC ABG pO2 Sodium Potassium 3.0 L Chloride Carbon Dioxide BUN Creatinine Glucose POC Glucose 115 H Lactic Acid Calcium 7.0 L Phosphorus Magnesium Iron TIBC Ferritin Direct Bilirubin AST Total Creatine Kinase Troponin T 0.036 H Total Protein Albumin Prealbumin LDL Cholesterol Direct HDL Cholesterol Vitamin B12 TSH PTH Intact Urine Creatinine Urine Total Protein Vancomycin Trough Digoxin Salicylates Acetaminophen Crossmatch 03/22/19 03/22/19 03/22/19 06:10 06:10 11:59 WBC RBC Hgb Hct MCV MCH MCHC RDW Plt Count Lymph % (Auto) [place] % (Auto) Eos % (Auto) Lymph # [place] # Eos # Seg Neutrophils % Seg Neuts % (Manual) Lymphocytes % (Manual) Monocytes % (Manual) Eosinophils % (Manual) Nucleated RBC % Seg Neutrophils # Seg Neutrophils # Man Lymphocytes # (Manual) Monocytes # (Manual) Eosinophils # (Manual) PT INR APTT POC ABG pH POC ABG pCO2 POC ABG pO2 Sodium Potassium Chloride Carbon Dioxide BUN Creatinine Glucose POC Glucose Lactic Acid 4.80 H* 3.80 H* Calcium Phosphorus Magnesium Iron TIBC Ferritin Direct Bilirubin AST Total Creatine Kinase Troponin T Total Protein Albumin Prealbumin LDL Cholesterol Direct HDL Cholesterol Vitamin B12 TSH 7.810 H PTH Intact Urine Creatinine Urine Total Protein Vancomycin Trough Digoxin Salicylates Acetaminophen Crossmatch 03/22/19 03/22/19 03/22/19 13:45 13:45 13:45 WBC RBC Hgb 8.3 L Hct 24.5 L MCV MCH MCHC RDW Plt Count 56 L Lymph % (Auto) [place] % (Auto) Eos % (Auto) Lymph # [place] # Eos # Seg Neutrophils % Seg Neuts % (Manual) Lymphocytes % (Manual) Monocytes % (Manual) Eosinophils % (Manual) Nucleated RBC % Seg Neutrophils # Seg Neutrophils # Man Lymphocytes # (Manual) Monocytes # (Manual) Eosinophils # (Manual) PT 21.4 H INR 1.90 H APTT 43.2 H POC ABG pH POC ABG pCO2 POC ABG pO2 Sodium Potassium Chloride Carbon Dioxide BUN Creatinine Glucose POC Glucose Lactic Acid 3.50 H* Calcium Phosphorus Magnesium Iron TIBC Ferritin Direct Bilirubin AST Total Creatine Kinase Troponin T Total Protein Albumin Prealbumin LDL Cholesterol Direct HDL Cholesterol Vitamin B12 TSH PTH Intact Urine Creatinine Urine Total Protein Vancomycin Trough Digoxin Salicylates Acetaminophen Crossmatch 03/22/19 03/23/19 03/23/19 22:20 01:06 04:50 WBC 12.1 H RBC 2.36 L Hgb 7.7 L Hct 22.9 L MCV MCH 33 H MCHC RDW Plt Count 37 L Lymph % (Auto) [place] % (Auto) Eos % (Auto) Lymph # [place] # Eos # Seg Neutrophils % Seg Neuts % (Manual) 83.0 H Lymphocytes % (Manual) 8.0 L Monocytes % (Manual) Eosinophils % (Manual) Nucleated RBC % Seg Neutrophils # Seg Neutrophils # Man 10.0 H Lymphocytes # (Manual) 1.0 L Monocytes # (Manual) Eosinophils # (Manual) PT INR APTT POC ABG pH POC ABG pCO2 POC ABG pO2 Sodium Potassium Chloride Carbon Dioxide BUN Creatinine Glucose POC Glucose Lactic Acid 3.60 H* 2.70 H* Calcium Phosphorus Magnesium Iron TIBC Ferritin Direct Bilirubin AST Total Creatine Kinase Troponin T Total Protein Albumin Prealbumin LDL Cholesterol Direct HDL Cholesterol Vitamin B12 TSH PTH Intact Urine Creatinine Urine Total Protein Vancomycin Trough Digoxin Salicylates Acetaminophen Crossmatch 03/23/19 03/23/19 03/23/19 04:50 05:25 05:53 WBC RBC Hgb Hct MCV MCH MCHC RDW Plt Count Lymph % (Auto) [place] % (Auto) Eos % (Auto) Lymph # [place] # Eos # Seg Neutrophils % Seg Neuts % (Manual) Lymphocytes % (Manual) Monocytes % (Manual) Eosinophils % (Manual) Nucleated RBC % Seg Neutrophils # Seg Neutrophils # Man Lymphocytes # (Manual) Monocytes # (Manual) Eosinophils # (Manual) PT INR APTT POC ABG pH POC ABG pCO2 33.3 L POC ABG pO2 Sodium Potassium 3.5 L Chloride 108.3 H Carbon Dioxide BUN Creatinine Glucose POC Glucose 68 L Lactic Acid Calcium 7.3 L Phosphorus Magnesium Iron TIBC Ferritin Direct Bilirubin AST Total Creatine Kinase Troponin T Total Protein Albumin Prealbumin LDL Cholesterol Direct HDL Cholesterol Vitamin B12 TSH PTH Intact Urine Creatinine Urine Total Protein Vancomycin Trough Digoxin Salicylates Acetaminophen Crossmatch 03/24/19 03/24/19 03/24/19 03:26 05:50 05:57 WBC RBC Hgb Hct MCV MCH MCHC RDW Plt Count Lymph % (Auto) [place] % (Auto) Eos % (Auto) Lymph # [place] # Eos # Seg Neutrophils % Seg Neuts % (Manual) Lymphocytes % (Manual) Monocytes % (Manual) Eosinophils % (Manual) Nucleated RBC % Seg Neutrophils # Seg Neutrophils # Man Lymphocytes # (Manual) Monocytes # (Manual) Eosinophils # (Manual) PT INR APTT POC ABG pH POC ABG pCO2 POC ABG pO2 78 L Sodium Potassium 3.4 L Chloride 116.5 H Carbon Dioxide 21 L BUN Creatinine 0.5 L Glucose 105 H POC Glucose 127 H Lactic Acid Calcium 6.4 L Phosphorus Magnesium Iron TIBC Ferritin Direct Bilirubin AST Total Creatine Kinase Troponin T Total Protein Albumin Prealbumin LDL Cholesterol Direct HDL Cholesterol Vitamin B12 TSH PTH Intact Urine Creatinine Urine Total Protein Vancomycin Trough Digoxin Salicylates Acetaminophen Crossmatch 03/24/19 03/24/19 03/24/19 06:00 11:30 12:25 WBC 13.6 H RBC 2.08 L Hgb 6.9 L Hct 20.5 L MCV 99 H MCH 33 H MCHC RDW Plt Count 50 L Lymph % (Auto) 8.1 L [place] % (Auto) 10.0 H Eos % (Auto) Lymph # 1.1 L [place] # 1.4 H Eos # Seg Neutrophils % 80.7 H Seg Neuts % (Manual) Lymphocytes % (Manual) Monocytes % (Manual) Eosinophils % (Manual) Nucleated RBC % Seg Neutrophils # 11.0 H Seg Neutrophils # Man Lymphocytes # (Manual) Monocytes # (Manual) Eosinophils # (Manual) PT INR APTT POC ABG pH POC ABG pCO2 POC ABG pO2 Sodium Potassium Chloride Carbon Dioxide BUN Creatinine Glucose POC Glucose 111 H Lactic Acid Calcium Phosphorus Magnesium Iron TIBC Ferritin Direct Bilirubin AST Total Creatine Kinase Troponin T Total Protein Albumin Prealbumin LDL Cholesterol Direct HDL Cholesterol Vitamin B12 TSH PTH Intact Urine Creatinine Urine Total Protein Vancomycin Trough Digoxin Salicylates Acetaminophen Crossmatch See Detail 03/24/19 03/25/19 03/25/19 14:25 05:20 10:00 WBC 13.4 H RBC 2.54 L Hgb 8.1 L Hct 24.3 L MCV MCH MCHC RDW 17.3 H Plt Count 44 L Lymph % (Auto) [place] % (Auto) Eos % (Auto) Lymph # [place] # Eos # Seg Neutrophils % Seg Neuts % (Manual) Lymphocytes % (Manual) Monocytes % (Manual) Eosinophils % (Manual) Nucleated RBC % Seg Neutrophils # Seg Neutrophils # Man Lymphocytes # (Manual) Monocytes # (Manual) Eosinophils # (Manual) PT INR APTT POC ABG pH POC ABG pCO2 POC ABG pO2 Sodium Potassium Chloride Carbon Dioxide BUN Creatinine Glucose POC Glucose 111 H Lactic Acid Calcium Phosphorus Magnesium Iron 32 L TIBC 75 L Ferritin Direct Bilirubin AST Total Creatine Kinase Troponin T Total Protein Albumin Prealbumin LDL Cholesterol Direct HDL Cholesterol Vitamin B12 TSH PTH Intact Urine Creatinine Urine Total Protein Vancomycin Trough Digoxin Salicylates Acetaminophen Crossmatch 03/25/19 03/25/19 03/25/19 10:11 10:11 23:11 WBC RBC Hgb Hct MCV MCH MCHC RDW Plt Count Lymph % (Auto) [place] % (Auto) Eos % (Auto) Lymph # [place] # Eos # Seg Neutrophils % Seg Neuts % (Manual) Lymphocytes % (Manual) Monocytes % (Manual) Eosinophils % (Manual) Nucleated RBC % Seg Neutrophils # Seg Neutrophils # Man Lymphocytes # (Manual) Monocytes # (Manual) Eosinophils # (Manual) PT INR APTT POC ABG pH POC ABG pCO2 POC ABG pO2 Sodium Potassium Chloride 112.0 H Carbon Dioxide BUN 20 H Creatinine 0.6 L Glucose POC Glucose 112 H Lactic Acid Calcium 7.2 L Phosphorus Magnesium Iron TIBC Ferritin Direct Bilirubin AST Total Creatine Kinase Troponin T Total Protein Albumin Prealbumin LDL Cholesterol Direct HDL Cholesterol Vitamin B12 > 2000 H TSH PTH Intact Urine Creatinine Urine Total Protein Vancomycin Trough Digoxin Salicylates Acetaminophen Crossmatch 03/26/19 03/26/19 03/26/19 05:00 05:00 05:16 WBC 14.4 H RBC 2.74 L Hgb 8.9 L Hct 25.7 L MCV MCH 33 H MCHC 35 H RDW 16.9 H Plt Count 60 L Lymph % (Auto) [place] % (Auto) Eos % (Auto) Lymph # [place] # Eos # Seg Neutrophils % Seg Neuts % (Manual) 83.0 H Lymphocytes % (Manual) 5.0 L Monocytes % (Manual) Eosinophils % (Manual) 5.0 H Nucleated RBC % 1.0 H Seg Neutrophils # Seg Neutrophils # Man 12.0 H Lymphocytes # (Manual) 0.7 L Monocytes # (Manual) 0.9 H Eosinophils # (Manual) 0.7 H PT INR APTT POC ABG pH POC ABG pCO2 POC ABG pO2 Sodium Potassium 3.1 L Chloride 110.4 H Carbon Dioxide BUN 22 H Creatinine Glucose 101 H POC Glucose 114 H Lactic Acid Calcium 7.4 L Phosphorus Magnesium Iron TIBC Ferritin Direct Bilirubin AST Total Creatine Kinase Troponin T Total Protein Albumin Prealbumin LDL Cholesterol Direct HDL Cholesterol Vitamin B12 TSH PTH Intact Urine Creatinine Urine Total Protein Vancomycin Trough Digoxin Salicylates Acetaminophen Crossmatch 03/26/19 03/27/19 03/27/19 11:55 09:04 09:04 WBC RBC Hgb Hct MCV MCH MCHC RDW Plt Count Lymph % (Auto) [place] % (Auto) Eos % (Auto) Lymph # [place] # Eos # Seg Neutrophils % Seg Neuts % (Manual) Lymphocytes % (Manual) Monocytes % (Manual) Eosinophils % (Manual) Nucleated RBC % Seg Neutrophils # Seg Neutrophils # Man Lymphocytes # (Manual) Monocytes # (Manual) Eosinophils # (Manual) PT INR APTT POC ABG pH POC ABG pCO2 POC ABG pO2 Sodium Potassium 3.2 L Chloride Carbon Dioxide BUN 22 H Creatinine Glucose POC Glucose 121 H Lactic Acid Calcium 7.7 L Phosphorus Magnesium Iron TIBC Ferritin Direct Bilirubin AST Total Creatine Kinase Troponin T Total Protein Albumin Prealbumin LDL Cholesterol Direct HDL Cholesterol Vitamin B12 TSH PTH Intact Urine Creatinine Urine Total Protein Vancomycin Trough 23.0 H Digoxin Salicylates Acetaminophen Crossmatch 03/27/19 03/27/19 03/27/19 09:04 13:31 14:04 WBC 14.8 H RBC 2.52 L Hgb 8.0 L 8.3 L Hct 24.0 L 25.3 L MCV MCH MCHC RDW 17.0 H Plt Count 89 L 91 L Lymph % (Auto) [place] % (Auto) 8.8 H Eos % (Auto) Lymph # [place] # 1.3 H Eos # Seg Neutrophils % 70.7 H Seg Neuts % (Manual) Lymphocytes % (Manual) Monocytes % (Manual) Eosinophils % (Manual) Nucleated RBC % Seg Neutrophils # 10.5 H Seg Neutrophils # Man Lymphocytes # (Manual) Monocytes # (Manual) Eosinophils # (Manual) PT INR APTT POC ABG pH POC ABG pCO2 POC ABG pO2 Sodium Potassium Chloride Carbon Dioxide BUN Creatinine Glucose POC Glucose Lactic Acid Calcium Phosphorus Magnesium Iron TIBC Ferritin Direct Bilirubin 0.3 H AST Total Creatine Kinase Troponin T Total Protein 4.9 L Albumin 1.3 L Prealbumin LDL Cholesterol Direct HDL Cholesterol Vitamin B12 TSH PTH Intact Urine Creatinine Urine Total Protein Vancomycin Trough Digoxin Salicylates Acetaminophen Crossmatch 03/27/19 03/27/19 03/28/19 14:04 23:51 01:05 WBC 14.4 H RBC 2.44 L Hgb 8.0 L Hct 24.5 L MCV 100 H MCH 33 H MCHC RDW 18.5 H Plt Count 86 L Lymph % (Auto) [place] % (Auto) Eos % (Auto) Lymph # [place] # Eos # Seg Neutrophils % Seg Neuts % (Manual) 84.0 H Lymphocytes % (Manual) 10.0 L Monocytes % (Manual) Eosinophils % (Manual) Nucleated RBC % Seg Neutrophils # Seg Neutrophils # Man 12.1 H Lymphocytes # (Manual) Monocytes # (Manual) Eosinophils # (Manual) PT 21.4 H INR 1.90 H APTT 42.2 H POC ABG pH POC ABG pCO2 POC ABG pO2 Sodium Potassium Chloride Carbon Dioxide BUN Creatinine Glucose POC Glucose 130 H Lactic Acid Calcium Phosphorus Magnesium Iron TIBC Ferritin Direct Bilirubin AST Total Creatine Kinase Troponin T Total Protein Albumin Prealbumin LDL Cholesterol Direct HDL Cholesterol Vitamin B12 TSH PTH Intact Urine Creatinine Urine Total Protein Vancomycin Trough Digoxin Salicylates Acetaminophen Crossmatch 03/28/19 03/28/19 03/28/19 02:51 04:45 07:31 WBC RBC Hgb Hct MCV MCH MCHC RDW Plt Count Lymph % (Auto) [place] % (Auto) Eos % (Auto) Lymph # [place] # Eos # Seg Neutrophils % Seg Neuts % (Manual) Lymphocytes % (Manual) Monocytes % (Manual) Eosinophils % (Manual) Nucleated RBC % Seg Neutrophils # Seg Neutrophils # Man Lymphocytes # (Manual) Monocytes # (Manual) Eosinophils # (Manual) PT INR APTT 75.0 H* POC ABG pH POC ABG pCO2 POC ABG pO2 Sodium Potassium Chloride Carbon Dioxide BUN 22 H Creatinine Glucose POC Glucose Lactic Acid Calcium 7.8 L Phosphorus Magnesium Iron TIBC Ferritin 448.3 H Direct Bilirubin AST Total Creatine Kinase Troponin T Total Protein Albumin Prealbumin LDL Cholesterol Direct HDL Cholesterol Vitamin B12 TSH PTH Intact Urine Creatinine Urine Total Protein Vancomycin Trough Digoxin Salicylates Acetaminophen Crossmatch 03/28/19 03/29/19 03/29/19 14:30 04:40 04:40 WBC RBC 2.17 L Hgb 7.1 L Hct 20.8 L MCV MCH 33 H MCHC RDW 17.1 H Plt Count 122 L Lymph % (Auto) [place] % (Auto) Eos % (Auto) Lymph # [place] # Eos # Seg Neutrophils % Seg Neuts % (Manual) Lymphocytes % (Manual) Monocytes % (Manual) Eosinophils % (Manual) Nucleated RBC % Seg Neutrophils # Seg Neutrophils # Man Lymphocytes # (Manual) Monocytes # (Manual) Eosinophils # (Manual) PT INR APTT 70.3 H* POC ABG pH POC ABG pCO2 POC ABG pO2 Sodium Potassium Chloride Carbon Dioxide 31 H BUN 22 H Creatinine 0.5 L Glucose POC Glucose Lactic Acid Calcium 8.0 L Phosphorus Magnesium Iron TIBC Ferritin Direct Bilirubin AST Total Creatine Kinase Troponin T Total Protein 5.0 L Albumin 1.4 L Prealbumin LDL Cholesterol Direct HDL Cholesterol Vitamin B12 TSH PTH Intact Urine Creatinine Urine Total Protein Vancomycin Trough Digoxin Salicylates Acetaminophen Crossmatch 03/29/19 03/29/19 03/29/19 04:40 04:40 11:50 WBC RBC Hgb Hct MCV MCH MCHC RDW Plt Count Lymph % (Auto) [place] % (Auto) Eos % (Auto) Lymph # [place] # Eos # Seg Neutrophils % Seg Neuts % (Manual) Lymphocytes % (Manual) Monocytes % (Manual) Eosinophils % (Manual) Nucleated RBC % Seg Neutrophils # Seg Neutrophils # Man Lymphocytes # (Manual) Monocytes # (Manual) Eosinophils # (Manual) PT INR APTT 71.8 H* POC ABG pH POC ABG pCO2 POC ABG pO2 Sodium Potassium Chloride Carbon Dioxide BUN Creatinine Glucose POC Glucose 118 H Lactic Acid Calcium Phosphorus Magnesium Iron TIBC Ferritin Direct Bilirubin AST Total Creatine Kinase Troponin T Total Protein Albumin Prealbumin LDL Cholesterol Direct HDL Cholesterol Vitamin B12 TSH PTH Intact Urine Creatinine Urine Total Protein Vancomycin Trough Digoxin 3.5 H* Salicylates Acetaminophen Crossmatch 03/29/19 03/29/19 03/29/19 16:20 16:20 21:10 WBC RBC Hgb Hct MCV MCH MCHC RDW Plt Count Lymph % (Auto) [place] % (Auto) Eos % (Auto) Lymph # [place] # Eos # Seg Neutrophils % Seg Neuts % (Manual) Lymphocytes % (Manual) Monocytes % (Manual) Eosinophils % (Manual) Nucleated RBC % Seg Neutrophils # Seg Neutrophils # Man Lymphocytes # (Manual) Monocytes # (Manual) Eosinophils # (Manual) PT INR APTT 61.5 H* 112.6 H* POC ABG pH POC ABG pCO2 POC ABG pO2 Sodium Potassium Chloride Carbon Dioxide BUN Creatinine Glucose POC Glucose Lactic Acid Calcium Phosphorus Magnesium Iron TIBC Ferritin Direct Bilirubin AST Total Creatine Kinase Troponin T Total Protein Albumin Prealbumin LDL Cholesterol Direct HDL Cholesterol Vitamin B12 TSH PTH Intact Urine Creatinine Urine Total Protein Vancomycin Trough Digoxin 2.6 H* Salicylates Acetaminophen Crossmatch 03/29/19 03/30/19 03/30/19 22:30 04:42 04:42 WBC RBC Hgb 6.4 L Hct 18.9 L* MCV MCH MCHC RDW Plt Count Lymph % (Auto) [place] % (Auto) Eos % (Auto) Lymph # [place] # Eos # Seg Neutrophils % Seg Neuts % (Manual) Lymphocytes % (Manual) Monocytes % (Manual) Eosinophils % (Manual) Nucleated RBC % Seg Neutrophils # Seg Neutrophils # Man Lymphocytes # (Manual) Monocytes # (Manual) Eosinophils # (Manual) PT INR APTT 103.8 H* POC ABG pH POC ABG pCO2 POC ABG pO2 Sodium Potassium Chloride Carbon Dioxide BUN Creatinine Glucose POC Glucose Lactic Acid Calcium Phosphorus Magnesium Iron TIBC Ferritin Direct Bilirubin AST Total Creatine Kinase Troponin T Total Protein Albumin Prealbumin LDL Cholesterol Direct HDL Cholesterol Vitamin B12 TSH PTH Intact Urine Creatinine Urine Total Protein Vancomycin Trough Digoxin 2.6 H* Salicylates Acetaminophen Crossmatch 03/30/19 03/30/19 03/30/19 07:04 07:58 11:15 WBC RBC 2.66 L Hgb 8.5 L Hct 25.3 L D MCV MCH MCHC RDW 17.4 H Plt Count Lymph % (Auto) [place] % (Auto) Eos % (Auto) Lymph # [place] # Eos # Seg Neutrophils % Seg Neuts % (Manual) Lymphocytes % (Manual) Monocytes % (Manual) Eosinophils % (Manual) Nucleated RBC % Seg Neutrophils # Seg Neutrophils # Man Lymphocytes # (Manual) Monocytes # (Manual) Eosinophils # (Manual) PT INR APTT 50.5 H POC ABG pH POC ABG pCO2 POC ABG pO2 Sodium Potassium Chloride Carbon Dioxide BUN Creatinine Glucose POC Glucose Lactic Acid Calcium Phosphorus Magnesium Iron TIBC Ferritin Direct Bilirubin AST Total Creatine Kinase Troponin T Total Protein Albumin Prealbumin LDL Cholesterol Direct HDL Cholesterol Vitamin B12 TSH PTH Intact Urine Creatinine Urine Total Protein Vancomycin Trough Digoxin Salicylates Acetaminophen Crossmatch See Detail 03/30/19 03/30/19 03/30/19 11:36 17:40 22:51 WBC RBC 2.48 L Hgb 7.9 L Hct 23.9 L MCV MCH MCHC RDW 17.7 H Plt Count Lymph % (Auto) [place] % (Auto) Eos % (Auto) Lymph # [place] # Eos # Seg Neutrophils % Seg Neuts % (Manual) Lymphocytes % (Manual) Monocytes % (Manual) Eosinophils % (Manual) Nucleated RBC % Seg Neutrophils # Seg Neutrophils # Man Lymphocytes # (Manual) Monocytes # (Manual) Eosinophils # (Manual) PT INR APTT POC ABG pH POC ABG pCO2 POC ABG pO2 Sodium Potassium Chloride Carbon Dioxide BUN Creatinine Glucose POC Glucose 129 H 112 H Lactic Acid Calcium Phosphorus Magnesium Iron TIBC Ferritin Direct Bilirubin AST Total Creatine Kinase Troponin T Total Protein Albumin Prealbumin LDL Cholesterol Direct HDL Cholesterol Vitamin B12 TSH PTH Intact Urine Creatinine Urine Total Protein Vancomycin Trough Digoxin Salicylates Acetaminophen Crossmatch 03/30/19 03/31/19 03/31/19 23:47 05:00 11:35 WBC RBC Hgb 8.0 L Hct 23.7 L MCV MCH MCHC RDW Plt Count Lymph % (Auto) [place] % (Auto) Eos % (Auto) Lymph # [place] # Eos # Seg Neutrophils % Seg Neuts % (Manual) Lymphocytes % (Manual) Monocytes % (Manual) Eosinophils % (Manual) Nucleated RBC % Seg Neutrophils # Seg Neutrophils # Man Lymphocytes # (Manual) Monocytes # (Manual) Eosinophils # (Manual) PT INR APTT POC ABG pH POC ABG pCO2 POC ABG pO2 Sodium Potassium Chloride Carbon Dioxide BUN Creatinine Glucose POC Glucose 112 H 106 H Lactic Acid Calcium Phosphorus Magnesium Iron TIBC Ferritin Direct Bilirubin AST Total Creatine Kinase Troponin T Total Protein Albumin Prealbumin LDL Cholesterol Direct HDL Cholesterol Vitamin B12 TSH PTH Intact Urine Creatinine Urine Total Protein Vancomycin Trough Digoxin Salicylates Acetaminophen Crossmatch 04/01/19 04/02/19 04/03/19 11:38 08:33 06:15 WBC RBC 2.11 L Hgb 7.8 L 6.8 L Hct 23.1 L 20.5 L MCV 98 H MCH MCHC RDW 17.6 H Plt Count Lymph % (Auto) [place] % (Auto) 12.1 H Eos % (Auto) 7.4 H Lymph # [place] # Eos # Seg Neutrophils % Seg Neuts % (Manual) Lymphocytes % (Manual) Monocytes % (Manual) Eosinophils % (Manual) Nucleated RBC % Seg Neutrophils # Seg Neutrophils # Man Lymphocytes # (Manual) Monocytes # (Manual) Eosinophils # (Manual) PT INR APTT POC ABG pH POC ABG pCO2 POC ABG pO2 Sodium Potassium Chloride Carbon Dioxide BUN Creatinine Glucose POC Glucose 136 H Lactic Acid Calcium Phosphorus Magnesium Iron TIBC Ferritin Direct Bilirubin AST Total Creatine Kinase Troponin T Total Protein Albumin Prealbumin LDL Cholesterol Direct HDL Cholesterol Vitamin B12 TSH PTH Intact Urine Creatinine Urine Total Protein Vancomycin Trough Digoxin Salicylates Acetaminophen Crossmatch 04/03/19 04/04/19 04/04/19 08:22 05:20 05:20 WBC RBC 2.27 L Hgb 7.3 L 7.3 L Hct 21.9 L 22.0 L MCV MCH MCHC RDW 16.8 H Plt Count Lymph % (Auto) [place] % (Auto) 12.2 H Eos % (Auto) 6.6 H Lymph # [place] # 1.0 H Eos # 0.5 H Seg Neutrophils % Seg Neuts % (Manual) Lymphocytes % (Manual) Monocytes % (Manual) Eosinophils % (Manual) Nucleated RBC % Seg Neutrophils # Seg Neutrophils # Man Lymphocytes # (Manual) Monocytes # (Manual) Eosinophils # (Manual) PT INR APTT POC ABG pH POC ABG pCO2 POC ABG pO2 Sodium Potassium Chloride Carbon Dioxide BUN Creatinine 0.4 L Glucose POC Glucose Lactic Acid Calcium 7.9 L Phosphorus 2.20 L Magnesium 1.40 L Iron TIBC Ferritin Direct Bilirubin AST Total Creatine Kinase Troponin T Total Protein Albumin Prealbumin LDL Cholesterol Direct HDL Cholesterol Vitamin B12 TSH PTH Intact Urine Creatinine Urine Total Protein Vancomycin Trough Digoxin Salicylates Acetaminophen Crossmatch Chest x-ray: report reviewed, image reviewed (no change in bilateral i nfiltrates)
[2019-04-05] MEDS: DUONEB *Not for PRN Use IH SCH ×4 (01:27→20:08)
[2019-04-05 04:12] LABS: BUN/Creatinine Ratio 35; Blood Urea Nitrogen 14 mg/dL (7-17); Calcium 7.6 mg/dL (8.4-10.2); Hematocrit 20.1 % (30.3-42.9); Hemoglobin 6.7 gm/dl (10.1-14.3); Hemolysis Index 1; Mean Corpuscular Volume 96 fl (79-97); Red Blood Count 2.09 M/mm3 (3.65-5.03)
[2019-04-05 04:13] LABS: Mean Corpuscular HGB Conc 33 % (30-34); Mean Platelet Volume 7.7 fl (6-12); Platelet Count 338 K/mm3 (140-440); Red Cell Distribution Width 16.6 % (13.2-15.2)
--- NOTE | 2019-04-05 05:34 | Hem/Onc Progress Note ---
Assessment and Plan h/o low plt - at admission DVT was on home hospice 1. h/o Thrombocytopenia. This may be secondary to medications. The platelets were even low at admission. The differential includes infection versus a marrow issue. At this time, platelets are adequate, we will follow the trend. Because of clinical suspicion, HIT test has been ordered. Argatroban ordered. Heparin has been stopped. plt have improved 2. h/o Pneumonia. 3. h/o Encephalopathy. 4. Respiratory failure, on vent. 5. h/o Renal impairment. 6. Deep vein thrombosis. Her immobilization may have a role. Central line also may have a role. Acute Right common femoral DVT and right IJ vein thrombosi s the patient was on Argatroban. IVC filter may prevent the leg DVT from progression to PE; however, for IJ DVT, we have limited options. The patient was on home hospice as per notes. Atrial fibrillation, she was on medications. History of anemia, deficiency investigations. Leukocytosis, likely reactive. B12 level more than 2000, serum iron 32. anemia - IV iron trial 04/05/2019 anemia - off argatroban - HIT test negative PRBC it appears that the pt is possibly bleeding - based on hb fall - hence anticoag has been held option of IVC filter - but hospice is being looked into if hb improves - ? oral anticoag an option - eliquis vs xarelto there is a question about trach peg vs hospice - Patient Problems (1) Thrombocytopenia Current Visit: Yes Status: Acute Subjective Date of service: 04/05/19 Principal diagnosis: anemia - dvt Interval history: on vent Objective - Exam Narrative Exam: Pain - none - on vent General appearance intubated Performance status - complete help needed Eyes - no icterus ENT no thrush LNs cervical not palpable Neck - no LNs/mass Respiratory Normal Breath sounds - CTA anteriorly CVS S1 S2 + Extremities normal temperature - flaccid General GI Soft - distended Rectal deferred female - deferred Skin warm Musculoskeletal not able to evaluate Neurologically - on vent - Constitutional Vitals: Last Vital Signs Temp 98 F 04/05/19 00:00 Pulse 107 H 04/05/19 03:20 Resp 17 04/05/19 02:01 BP 109/47 04/05/19 03:20 Pulse Ox 97 04/05/19 03:20 - Labs Lab Results: Laboratory Results - last 24 hr 04/04/19 04/04/19 04/04/19 05:20 05:20 06:59 WBC 8.1 RBC 2.27 L Hgb 7.3 L Hct 22.0 L MCV 97 MCH 32 MCHC 33 RDW 16.8 H Plt Count 296 Lymph % (Auto) 21.5 [place] % (Auto) 12.2 H Eos % (Auto) 6.6 H Baso % (Auto) 0.7 Lymph # 1.7 [place] # 1.0 H Eos # 0.5 H Baso # 0.1 Seg Neutrophils % 59.0 Seg Neutrophils # 4.8 Sodium 142 Potassium 3.7 Chloride 106.5 Carbon Dioxide 26 Anion Gap 13 BUN 15 Creatinine 0.4 L Estimated GFR > 60 BUN/Creatinine Ratio 38 Glucose 80 POC Glucose 96 Calcium 7.9 L Phosphorus 2.20 L Magnesium 1.40 L 04/04/19 04/05/19 04/05/19 11:56 03:30 03:30 WBC 7.8 RBC 2.09 L Hgb 6.7 L Hct 20.1 L MCV 96 MCH 32 MCHC 33 RDW 16.6 H Plt Count 338 Lymph % (Auto) [place] % (Auto) Eos % (Auto) Baso % (Auto) Lymph # [place] # Eos # Baso # Seg Neutrophils % Seg Neutrophils # Sodium 140 Potassium 3.8 Chloride 105.7 Carbon Dioxide 29 Anion Gap 9 BUN 14 Creatinine 0.4 L Estimated GFR > 60 BUN/Creatinine Ratio 35 Glucose 98 POC Glucose 101 Calcium 7.6 L Phosphorus 2.70 D Magnesium 2.00 Medications & Allergies - Medications Allergies/Adverse Reactions: Allergies No Known Allergies Allergy (Unverified 03/19/19 13:11) Home Medications: Home Medications Medication Instructions Recorded Confirmed Last Taken Type Aspirin EC 81 mg PO DAILY 03/20/19 03/20/19 Unknown History Divalproex Sodium 375 mg PO Q8H PRN 03/20/19 03/20/19 Unknown History Metoprolol [Lopressor TAB] 50 mg PO BID 03/20/19 03/20/19 Unknown History Sennosides/Docusate Sodium [Senna 8.6 mg PO BID PRN 03/20/19 03/20/19 Unknown History Plus Tablet] levETIRAcetam [Keppra TAB] 500 mg PO BID 03/20/19 03/20/19 Unknown History Active Medications: Generic Name Dose Route Start Last Admin Trade Name Freq PRN Reason Stop Dose Admin Acetaminophen 650 mg 03/24/19 23:48 04/04/19 10:10 Tylenol FEEDTUBE 650 mg Q6H PRN Administration Fever >101 Albuterol 2.5 mg 03/19/19 23:58 Proventil IH Q3HRT PRN Shortness Of Breath Albuterol/Ipratropium 1 ampul 03/20/19 02:00 04/05/19 01:27 Duoneb *Not For Prn Use* IH 1 ampul Q6HRT YUSUF Administration Amiodarone HCl 200 mg 03/22/19 22:00 04/04/19 21:13 Cordarone PO 200 mg BID YUSUF Administration Lipase/Protease/Amylase 1 each 03/22/19 16:[address] 10,500 Unit FEEDTUBE PRN PRN For Clogged Feeding Tube Aspirin 81 mg 03/21/19 10:00 04/04/19 09:54 Baby Aspirin PO 81 mg DAILY YUSUF Administration Budesonide 0.5 mg 03/19/19 23:45 04/04/19 21:17 Pulmicort IH 0.5 mg Q12HRT YUSUF Administration Dextrose 50 ml 03/19/19 23:58 03/21/19 16:29 D50w (25gm) Syringe IV 50 ml PRN PRN Administration Hypoglycemia Famotidine 20 mg 03/22/19 10:00 04/04/19 21:13 Pepcid PO 20 mg BID YUSUF Administration Fentanyl 50 mcg 03/19/19 12:45 03/19/19 13:26 Sublimaze IV 50 mcg Q10MIN PRN Administration ANALGESIA Hydromorphone HCl 0.5 mg 03/19/19 23:58 Dilaudid IV Q3H PRN Pain , Severe (7-10) Hydrophilic Ointment 1 applic 03/19/19 12:45 Vaseline Lip Therapy TP Q2HR PRN Dry Lips Fentanyl Citrate 2,000 mcg in 100 mls @ 2.835 mls/hr 03/19/19 14:00 03/21/19 11:33 Fentanyl Drip Premix IV 0 mcg/kg/hr TITR YUSUF 0 mls/hr Titration Protocol 1 MCG/KG/HR Norepinephrine 4 mg in 250 mls @ 7.5 mls/hr 03/25/19 11:00 03/30/19 23:45 Levophed Drip 4 Mg/Ns 250 Ml IV 0 mcg/min TITR YUSUF 0 mls/hr Titration Protocol 2 MCG/MIN Insulin Human Lispro 0 unit 03/20/19 00:00 04/04/19 19:31 Humalog SUB-Q Not Given Q6HR YUSUF Protocol Metoclopramide HCl 5 mg 03/20/19 00:12 Reglan IV Q6H PRN Nausea And Vomiting Metoprolol Tartrate 2.5 mg 03/23/19 13:17 03/24/19 21:20 Lopressor IV 2.5 mg Q2HR PRN Administration HR >150 Multi-Ingred Cream/Lotion/Oil/Oint 1 applic 03/19/19 12:45 Artificial Tears Ophth Oint OU Q4HR PRN Dry Eye(s) Ondansetron HCl 4 mg 03/19/19 23:58 Zofran IV Q8H PRN Nausea And Vomiting Promethazine HCl 25 mg 03/19/19 23:58 Phenergan MO Q6H PRN N/V IF NPO AND NO IV ACCESS Simple Syrup 15 ml 03/22/19 16:03 04/03/19 00:55 Simple Syrup FEEDTUBE 15 ml PRN PRN Administration Hypoglycemia Simple Syrup 30 ml 03/22/19 16:03 Simple Syrup FEEDTUBE PRN PRN Hypoglycemia Sodium Bicarbonate 325 mg 03/22/19 16:03 Sodium Bicarbonate FEEDTUBE PRN PRN For Clogged Feeding Tube Sodium Chloride 10 ml 03/20/19 10:00 04/04/19 21:13 Sodium Chloride Flush Syringe 10 Ml IV 10 ml BID YUSUF Administration Sodium Chloride 10 ml 03/19/19 23:58 Sodium Chloride Flush Syringe 10 Ml IV PRN PRN LINE FLUSH
[2019-04-05] MEDS ORDERED: NACL 0.9% 500 ML 500 ML IV ONE (05:35)
[2019-04-05] MEDS: HumaLOG SUB-Q SCH ×3 (05:44→19:12)
[2019-04-05 06:47] LABS: Eosinophils # (Auto) 0.5 K/mm3 (0.0-0.4); Eosinophils % (Auto) 6.2 % (0.0-4.3); Monocytes % (Auto) 12.6 % (0.0-7.3)
[2019-04-05 07:39] LABS: Anisocytosis 2+; Basophils % (Manual) 0 % (0.0-1.8); Eosinophils % (Manual) 0 % (0.0-4.3); Platelet Estimate Consistent w Auto; Poikilocytosis 2+; Total Cells Counted 100
[2019-04-05] MEDS: PULMICORT IH SCH ×2 (07:45→20:08)
[2019-04-05] MEDS ORDERED: NACL 0.9% 500 ML 500 ML ONE (09:40)
[2019-04-05] MEDS: CORDARONE PO SCH ×2 (09:52→22:09)
[2019-04-05] MEDS: PEPCID PO SCH ×2 (09:52→22:09)
[2019-04-05] MEDS: BABY ASPIRIN PO SCH (09:52)
--- NOTE | 2019-04-05 10:38 | Progress Note ---
Assessment and Plan Acute metabolic encephalopathy, - cont supportive care, CT head negative - patient now appears at her baseline per the family Acute hypoxic respiratory s/p ETT placement: consulted CCM, difficult to wean off vent, scheduled nebs - surgery consulted for trach and PEG Severe Anemia: Drop in H/H - status post 2 units of PRBC transfusion -Hemoglobin today 6.7, will transfuse another unit PRBC today - Closely monitor and transfuse as needed Digoxin toxicity; supratherapeutic level, off digoxin Acute Right common femoral DVT and right IJ vein thrombosis - argatroban drip dced due to severe anemia[requiring transfusion] - Anticoagulation decision per hematology - plan for IVC filter by IR Sepsis due to aspiration pneumonia; - source pneumonia but having persistent fever. UA negative. Blood culture 03/19/2019 no growth. Urine culture 03/19/2019 negative. - ID following, Has completed full course for pneumonia. Plan to stop antibiotics today and If patient decompensates would restart vanc and wiley. Septic shock: off pressor, weaned off, BP now stable Paroxysmal Atrial fib, Now NSR - on amioderone, metoprolol HA (acute kidney injury), atn and vasomotor nephrology, poa: IV fluids for now, Nephrology consulted - renal function improved Anemia, due to CD vs other cause - ordered stool for occult blood, iron study - transfused one unit PRBC RUL Aspiration pneumonia: treated with abx Hypernatremia: improved with Iv fluid Hypomagnesemia: replete and follow as needed Elevated troponin level/ NSTEMI II; consulted Cardiology, consevative mx DVT prophylaxis DNR code status CCT 34 minutes Brief History Patient is a 73 yo woman without a clear past medical history due to patient presentation of being Altered requiring intubation upon admission. Upon arrival to the emergency room, the patient is obtunded, breathing without difficulty, desaturating, without a gag reflex. Therefore, patient placed on nasal cannula at 15 L/m, and then intubated without difficulty. Patient started empirically on the sepsis pathway, with broad-spectrum antibiotics, aggressive IV fluids, and post intubation sedation package. She is difficult to wean off from vent, s/p bronch. venous doppler showed right internal jugular vein thrombus associated with right internal jugular vein triple lumen catheter and right common femoral vein DVT. Patient was on anticoagulation however had significant anemia requiring blood transfusion as argatroban discontinued. Patient is unable to wean with poor prognosis, family requested DO NOT RESUSCITATE status And initially decided hospice, however they changed their mind and now considering trach and PEG and SNF placement. * pCXR FINDINGS: SUPPORT DEVICES: Endotracheal tube is in place in good position above the liam. HEART / MEDIASTINUM: No significant abnormality. LUNGS / PLEURA: There is moderate bibasilar lung consolidation and slight right upper lobe consolidation as well. No edema or effusions. No pneumothorax. ADDITIONAL FINDINGS: No significant additional findings. IMPRESSION: 1. Endotracheal tube in good position. * CT head without contrast IMPRESSION: Encephalomalacia in the entire right cerebral hemisphere Volume loss in the left cerebral hemisphere, n0 acute parenchymal lesion in the brain. Hospitalist Physical Gen: critcally ill, thin frail, intubated, HEENT: NCAT, EOMI, PERRL, OP Clear Neck: supple, no adenopathy, no thyromegaly, no JVD CVS/Heart: RRR, normal S1S2, pulses present bilaterally Chest/Lungs: CTA B, Symmetrical chest expansion, good air entry bilaterally GI/Abdomen: soft, NTND, good bowel sounds, no guarding or rebound /Bladder: no suprapubic tenderness, no CVA or paraspinal tenderness Extermity/Skin: no c/c/e, no obvious rash, + edema MSK: no joint swelling Neuro: intubated Psych: intubated Subjective Date of service: 04/05/19 Principal diagnosis: anemia - DVT Interval history: Pt seen and examined remained intubated, off pressor discussed with family and RN at the bedside surgery consulted for trach and PEG daughter interested to transfer the patient to [place] [facility] looking for options Objective - Constitutional Vitals: Vital Signs - 12hr 04/04/19 04/04/19 04/05/19 23:00 23:41 00:00 Temperature 98 F Pulse Rate 111 H 110 H 114 H Pulse Rate [ Anterior Bilateral Throughout] Pulse Rate [ 112 H From Monitor] Respiratory 22 20 Rate Respiratory Rate [Anterior Bilateral Throughout] Blood Pressure 133/54 133/54 125/57 O2 Sat by Pulse 98 98 95 Oximetry 04/05/19 04/05/19 04/05/19 01:00 02:00 02:01 Temperature Pulse Rate 115 H 112 H Pulse Rate [ 116 H Anterior Bilateral Throughout] Pulse Rate [ From Monitor] Respiratory 17 18 Rate Respiratory 17 Rate [Anterior Bilateral Throughout] Blood Pressure 113/56 106/56 O2 Sat by Pulse 97 94 Oximetry 04/05/19 04/05/19 04/05/19 03:00 03:20 04:00 Temperature 99.9 F H Pulse Rate 112 H 107 H 103 H Pulse Rate [ Anterior Bilateral Throughout] Pulse Rate [ 103 H From Monitor] Respiratory 17 12 Rate Respiratory Rate [Anterior Bilateral Throughout] Blood Pressure 109/47 109/47 118/53 O2 Sat by Pulse 96 97 98 Oximetry 04/05/19 04/05/19 04/05/19 05:00 06:00 07:00 Temperature Pulse Rate 106 H 105 H 112 H Pulse Rate [ Anterior Bilateral Throughout] Pulse Rate [ From Monitor] Respiratory 15 18 13 Rate Respiratory Rate [Anterior Bilateral Throughout] Blood Pressure 127/64 135/64 O2 Sat by Pulse 99 97 Oximetry 04/05/19 04/05/19 04/05/19 07:45 07:52 07:54 Temperature Pulse Rate 106 H 113 H Pulse Rate [ 111 H Anterior Bilateral Throughout] Pulse Rate [ From Monitor] Respiratory 47 H Rate Respiratory 20 Rate [Anterior Bilateral Throughout] Blood Pressure 135/64 135/64 O2 Sat by Pulse 98 95 Oximetry 04/05/19 08:00 Temperature Pulse Rate 112 H Pulse Rate [ Anterior Bilateral Throughout] Pulse Rate [ 105 H From Monitor] Respiratory 18 Rate Respiratory Rate [Anterior Bilateral Throughout] Blood Pressure 132/66 O2 Sat by Pulse 95 Oximetry - Labs CBC & Chem 7: 04/06/19 09:36 04/05/19 03:30 Labs: Abnormal lab results 04/05/19 04/05/19 04/05/19 Range/Units 03:30 03:30 06:51 RBC 2.09 L (3.65-5.03) M/mm3 Hgb 6.7 L (10.1-14.3) gm/dl Hct 20.1 L (30.3-42.9) % RDW 16.6 H (13.2-15.2) % [place] % (Auto) 12.6 H (0.0-7.3) % Eos % (Auto) 6.2 H (0.0-4.3) % [place] # 1.0 H (0.0-0.8) K/mm3 Eos # 0.5 H (0.0-0.4) K/mm3 Creatinine 0.4 L (0.7-1.2) mg/dL Calcium 7.6 L (8.4-10.2) mg/dL Crossmatch See Detail
[2019-04-05] MEDS: TYLENOL FEEDTUBE PRN ×2 (11:43→23:51)
[2019-04-05] MEDS: SODIUM CHLORIDE FLUSH SYRINGE 10 ML IV SCH ×2 (11:47→22:11)
--- NOTE | 2019-04-05 13:23 | Progress Note ---
Assessment and Plan Imp: 1. Aspiration pneumonitis 2. Sepsis 3. Thrombocytopenia 2/2 above, better 4. Acute respiratory failure, hypoxia 5. HA/lactic acidosis, better 6. Hx of CVA 7. Acute DVT Rec: 1. ABX stopped 04/04; fever curve better but spiked again this AM; repeat blood and urine cultures; fever could be due to extensive clots 2. D/w daughter who wants continued aggressive care; recommend Trach/PEG, she agrees; surgery consulted 3. TFs 4. CXR unchanged; repeat sputum culture in light of fever; gently diurese prn; replete elytes prn 5. Still anemic; receiving 1 unit of PRBCs; cannot anticoagulate for now so recommend IVC filter, daughter agrees 6. Prognosis remains guarded to poor; needs LTAC after trach/peg CCT 31 minutes Plan of care reviewed w/ patient's daughter Caterina by phone on 04/05/19, she understands/agrees; discussed with patient's today and answered his questions Subjective Date of service: 04/05/19 Principal diagnosis: anemia - DVT Interval history: No events. Awake, alert, moves R hand/squeezes on command, and tracks w/ eyes. No obvious complaints although hx is difficult. No bleeding. + Fever still this AM. Receiving 1 unit of PRBCs. Active Medications Acetaminophen (Tylenol) 650 mg FEEDTUBE Q6H PRN PRN Reason: Fever >101 Last Admin: 04/05/19 11:43 Dose: 650 mg Documented by: Albuterol (Proventil) 2.5 mg IH Q3HRT PRN PRN Reason: Shortness Of Breath Albuterol/Ipratropium (Duoneb *Not For Prn Use*) 1 ampul IH Q6HRT [facility] Last Admin: 04/05/19 13:45 Dose: 1 ampul Documented by: Amiodarone HCl (Cordarone) 200 mg PO BID [facility] Last Admin: 04/05/19 09:52 Dose: 200 mg Documented by: Lipase/Protease/Amylase (Naomi Sargent 10,500 Unit) 1 each FEEDTUBE PRN PRN PRN Reason: For Clogged Feeding Tube Aspirin (Baby Aspirin) 81 mg PO DAILY [facility] Last Admin: 04/05/19 09:52 Dose: 81 mg Documented by: Budesonide (Pulmicort) 0.5 mg IH Q12HRT [facility] Last Admin: 04/05/19 07:45 Dose: 0.5 mg Documented by: Dextrose (D50w (25gm) Syringe) 50 ml IV PRN PRN PRN Reason: Hypoglycemia Last Admin: 03/21/19 16:29 Dose: 50 ml Documented by: Famotidine (Pepcid) 20 mg PO BID [facility] Last Admin: 04/05/19 09:52 Dose: 20 mg Documented by: Fentanyl (Sublimaze) 50 mcg IV Q10MIN PRN PRN Reason: ANALGESIA Last Admin: 03/19/19 13:26 Dose: 50 mcg Documented by: Hydromorphone HCl (Dilaudid) 0.5 mg IV Q3H PRN PRN Reason: Pain , Severe (7-10) Hydrophilic Ointment (Vaseline Lip Therapy) 1 applic TP Q2HR PRN PRN Reason: Dry Lips Fentanyl Citrate (Fentanyl Drip Premix) 2,000 mcg in 100 mls @ 2.835 mls/hr IV TITR [facility]; Protocol Last Titration: 03/21/19 11:33 Dose: 0 mcg/kg/hr, 0 mls/hr Documented by: Norepinephrine (Levophed Drip 4 Mg/Ns 250 Ml) 4 mg in 250 mls @ 7.5 mls/hr IV TITR [facility]; Protocol Last Titration: 03/30/19 23:45 Dose: 0 mcg/min, 0 mls/hr Documented by: Insulin Human Lispro (Humalog) 0 unit SUB-Q Q6HR [facility]; Protocol Last Admin: 04/05/19 13:08 Dose: Not Given Documented by: Metoclopramide HCl (Reglan) 5 mg IV Q6H PRN PRN Reason: Nausea And Vomiting Metoprolol Tartrate (Lopressor) 2.5 mg IV Q2HR PRN PRN Reason: HR >150 Last Admin: 03/24/19 21:20 Dose: 2.5 mg Documented by: Multi-Ingred Cream/Lotion/Oil/Oint (Artificial Tears Ophth Oint) 1 applic OU Q4HR PRN PRN Reason: Dry Eye(s) Ondansetron HCl (Zofran) 4 mg IV Q8H PRN PRN Reason: Nausea And Vomiting Promethazine HCl (Phenergan) 25 mg NV Q6H PRN PRN Reason: N/V IF NPO AND NO IV ACCESS Simple Syrup (Simple Syrup) 15 ml FEEDTUBE PRN PRN PRN Reason: Hypoglycemia Last Admin: 04/03/19 00:55 Dose: 15 ml Documented by: Simple Syrup (Simple Syrup) 30 ml FEEDTUBE PRN PRN PRN Reason: Hypoglycemia Sodium Bicarbonate (Sodium Bicarbonate) 325 mg FEEDTUBE PRN PRN PRN Reason: For Clogged Feeding Tube Sodium Chloride (Sodium Chloride Flush Syringe 10 Ml) 10 ml IV BID [facility] Last Admin: 04/05/19 11:47 Dose: 10 ml Documented by: Sodium Chloride (Sodium Chloride Flush Syringe 10 Ml) 10 ml IV PRN PRN PRN Reason: LINE FLUSH Objective Vital Signs - 12hr 04/05/19 04/05/19 04/05/19 02:00 02:01 03:00 Temperature Pulse Rate 112 H 112 H Pulse Rate [ 116 H Anterior Bilateral Throughout] Pulse Rate [ From Monitor] Respiratory 18 17 Rate Respiratory 17 Rate [Anterior Bilateral Throughout] Blood Pressure 106/56 109/47 O2 Sat by Pulse 94 96 Oximetry 04/05/19 04/05/19 04/05/19 03:20 04:00 05:00 Temperature 99.9 F H Pulse Rate 107 H 103 H 106 H Pulse Rate [ Anterior Bilateral Throughout] Pulse Rate [ 103 H From Monitor] Respiratory 12 15 Rate Respiratory Rate [Anterior Bilateral Throughout] Blood Pressure 109/47 118/53 127/64 O2 Sat by Pulse 97 98 Oximetry 04/05/19 04/05/19 04/05/19 06:00 07:00 07:45 Temperature Pulse Rate 105 H 112 H 106 H Pulse Rate [ Anterior Bilateral Throughout] Pulse Rate [ From Monitor] Respiratory 18 13 Rate Respiratory Rate [Anterior Bilateral Throughout] Blood Pressure 135/64 135/64 O2 Sat by Pulse 99 97 98 Oximetry 04/05/19 04/05/19 04/05/19 07:52 07:54 08:00 Temperature 101.3 F H Pulse Rate 113 H 112 H Pulse Rate [ 111 H Anterior Bilateral Throughout] Pulse Rate [ 105 H From Monitor] Respiratory 47 H 18 Rate Respiratory 20 Rate [Anterior Bilateral Throughout] Blood Pressure 135/64 132/66 O2 Sat by Pulse 95 95 Oximetry 04/05/19 04/05/19 04/05/19 08:41 08:51 09:01 Temperature Pulse Rate 106 H 108 H 110 H Pulse Rate [ Anterior Bilateral Throughout] Pulse Rate [ From Monitor] Respiratory 17 20 23 Rate Respiratory Rate [Anterior Bilateral Throughout] Blood Pressure 132/66 132/66 138/62 O2 Sat by Pulse 97 99 95 Oximetry 04/05/19 04/05/19 04/05/19 09:11 09:21 09:31 Temperature Pulse Rate 106 H 110 H 108 H Pulse Rate [ Anterior Bilateral Throughout] Pulse Rate [ From Monitor] Respiratory 22 22 19 Rate Respiratory Rate [Anterior Bilateral Throughout] Blood Pressure 138/62 138/62 138/62 O2 Sat by Pulse 98 97 97 Oximetry 04/05/19 04/05/19 04/05/19 09:41 09:51 10:00 Temperature Pulse Rate 106 H 113 H 111 H Pulse Rate [ Anterior Bilateral Throughout] Pulse Rate [ From Monitor] Respiratory 17 19 15 Rate Respiratory Rate [Anterior Bilateral Throughout] Blood Pressure 138/62 138/62 129/65 O2 Sat by Pulse 98 97 96 Oximetry 04/05/19 04/05/19 04/05/19 10:11 10:21 10:30 Temperature Pulse Rate 115 H 107 H 106 H Pulse Rate [ Anterior Bilateral Throughout] Pulse Rate [ From Monitor] Respiratory 20 18 16 Rate Respiratory Rate [Anterior Bilateral Throughout] Blood Pressure 129/65 129/65 129/65 O2 Sat by Pulse 99 98 99 Oximetry 04/05/19 04/05/19 04/05/19 10:41 10:51 11:00 Temperature 98.0 F Pulse Rate 105 H 104 H 101 H Pulse Rate [ Anterior Bilateral Throughout] Pulse Rate [ From Monitor] Respiratory 17 16 13 Rate Respiratory Rate [Anterior Bilateral Throughout] Blood Pressure 112/57 105/56 O2 Sat by Pulse 98 98 99 Oximetry 04/05/19 04/05/19 04/05/19 11:18 11:20 11:36 Temperature 98.0 F 100.7 F H Pulse Rate 106 H 106 H 102 H Pulse Rate [ Anterior Bilateral Throughout] Pulse Rate [ From Monitor] Respiratory 17 17 Rate Respiratory Rate [Anterior Bilateral Throughout] Blood Pressure 116/66 116/66 127/65 O2 Sat by Pulse 98 98 98 Oximetry 04/05/19 04/05/19 04/05/19 12:00 12:06 12:36 Temperature 97.6 F 97.9 F 98.2 F Pulse Rate 101 H 100 H 101 H Pulse Rate [ Anterior Bilateral Throughout] Pulse Rate [ 101 H From Monitor] Respiratory 19 18 19 Rate Respiratory Rate [Anterior Bilateral Throughout] Blood Pressure 114/62 114/62 131/63 O2 Sat by Pulse 97 99 99 Oximetry 04/05/19 13:00 Temperature Pulse Rate 108 H Pulse Rate [ Anterior Bilateral Throughout] Pulse Rate [ From Monitor] Respiratory 16 Rate Respiratory Rate [Anterior Bilateral Throughout] Blood Pressure 131/63 O2 Sat by Pulse 98 Oximetry Constitutional: other (intubated, critically ill on ventilator, awake) Eyes: non-icteric ENT: other (intubated ) Neck: supple Effort: normal Ascultation: Bilateral: other (coarse BS bilaterally) Cardiovascular: other (tachy AF, no mrg) Gastrointestinal: normoactive bowel sounds, soft, non-tender, non-distended Integumentary: normal Extremities: anasarca Neurologic: other (awake, alert, L sided hemiparesis, contractures upper extremities) Psychiatric: mood appropriate, affect normal CBC and BMP: 04/05/19 03:30 04/05/19 03:30 ABG, PT/INR, D-dimer: ABG POC ABG pH 7.411 (7.35-7.45) 03/25/19 05:40 POC ABG pO2 83 (80-105) 03/25/19 05:40 POC ABG HCO3 17.7 (22-26 mml/L) 03/25/19 05:40 POC ABG Total CO2 19 (23-27mmol/L) 03/25/19 05:40 POC ABG O2 Sat 97 03/25/19 05:40 PT/INR, D-dimer PT 21.4 Sec. (12.2-14.9) H 03/27/19 14:04 INR 1.90 (0.87-1.13) H 03/27/19 14:04 Abnormal lab findings: Abnormal Labs 03/19/19 03/19/19 03/19/19 12:59 12:59 12:59 WBC RBC 3.44 L Hgb Hct MCV 101 H MCH 34 H MCHC RDW Plt Count 98 L Lymph % (Auto) [place] % (Auto) Eos % (Auto) Lymph # [place] # Eos # Seg Neutrophils % Seg Neuts % (Manual) 11.0 L Lymphocytes % (Manual) Monocytes % (Manual) 10.0 H Eosinophils % (Manual) Nucleated RBC % 1.0 H Seg Neutrophils # Seg Neutrophils # Man 0.6 L Lymphocytes # (Manual) Monocytes # (Manual) Eosinophils # (Manual) PT INR APTT POC ABG pH POC ABG pCO2 POC ABG pO2 Sodium 149 H Potassium Chloride 109.4 H Carbon Dioxide BUN 51 H Creatinine 3.2 H Glucose 58 L POC Glucose Lactic Acid 7.60 H* Calcium 7.8 L Phosphorus Magnesium 1.60 L Iron TIBC Ferritin Direct Bilirubin AST 75 H Total Creatine Kinase 1499 H Troponin T 0.109 H* Total Protein 5.2 L Albumin 1.7 L Prealbumin LDL Cholesterol Direct 22 L HDL Cholesterol 31 L Vitamin B12 TSH PTH Intact Urine Creatinine Urine Total Protein Vancomycin Trough Digoxin Salicylates Acetaminophen Crossmatch 03/19/19 03/19/19 03/19/19 12:59 12:59 14:48 WBC RBC Hgb Hct MCV MCH MCHC RDW Plt Count Lymph % (Auto) [place] % (Auto) Eos % (Auto) Lymph # [place] # Eos # Seg Neutrophils % Seg Neuts % (Manual) Lymphocytes % (Manual) Monocytes % (Manual) Eosinophils % (Manual) Nucleated RBC % Seg Neutrophils # Seg Neutrophils # Man Lymphocytes # (Manual) Monocytes # (Manual) Eosinophils # (Manual) PT INR APTT POC ABG pH POC ABG pCO2 POC ABG pO2 Sodium Potassium Chloride Carbon Dioxide BUN Creatinine Glucose POC Glucose 44 L Lactic Acid Calcium Phosphorus Magnesium Iron TIBC Ferritin Direct Bilirubin AST Total Creatine Kinase Troponin T Total Protein Albumin Prealbumin LDL Cholesterol Direct HDL Cholesterol Vitamin B12 TSH PTH Intact Urine Creatinine Urine Total Protein Vancomycin Trough Digoxin Salicylates < 0.3 L Acetaminophen < 5.0 L Crossmatch 03/19/19 03/19/19 03/19/19 15:33 15:52 16:26 WBC RBC Hgb Hct MCV MCH MCHC RDW Plt Count Lymph % (Auto) [place] % (Auto) Eos % (Auto) Lymph # [place] # Eos # Seg Neutrophils % Seg Neuts % (Manual) Lymphocytes % (Manual) Monocytes % (Manual) Eosinophils % (Manual) Nucleated RBC % Seg Neutrophils # Seg Neutrophils # Man Lymphocytes # (Manual) Monocytes # (Manual) Eosinophils # (Manual) PT INR APTT POC ABG pH POC ABG pCO2 POC ABG pO2 Sodium Potassium Chloride Carbon Dioxide BUN Creatinine Glucose POC Glucose 228 H 231 H Lactic Acid Calcium Phosphorus Magnesium Iron TIBC Ferritin Direct Bilirubin AST Total Creatine Kinase Troponin T Total Protein Albumin Prealbumin LDL Cholesterol Direct HDL Cholesterol Vitamin B12 TSH PTH Intact Urine Creatinine 31.8 H Urine Total Protein Vancomycin Trough Digoxin Salicylates Acetaminophen Crossmatch 03/19/19 03/19/19 03/19/19 16:38 17:14 18:43 WBC RBC Hgb Hct MCV MCH MCHC RDW Plt Count Lymph % (Auto) [place] % (Auto) Eos % (Auto) Lymph # [place] # Eos # Seg Neutrophils % Seg Neuts % (Manual) Lymphocytes % (Manual) Monocytes % (Manual) Eosinophils % (Manual) Nucleated RBC % Seg Neutrophils # Seg Neutrophils # Man Lymphocytes # (Manual) Monocytes # (Manual) Eosinophils # (Manual) PT INR APTT POC ABG pH 7.196 L POC ABG pCO2 30.8 L POC ABG pO2 Sodium Potassium Chloride Carbon Dioxide BUN Creatinine Glucose POC Glucose 235 H Lactic Acid 8.10 H* Calcium Phosphorus Magnesium Iron TIBC Ferritin Direct Bilirubin AST Total Creatine Kinase Troponin T Total Protein Albumin Prealbumin LDL Cholesterol Direct HDL Cholesterol Vitamin B12 TSH PTH Intact Urine Creatinine Urine Total Protein Vancomycin Trough Digoxin Salicylates Acetaminophen Crossmatch 03/19/19 03/19/19 03/19/19 18:52 20:00 20:56 WBC RBC Hgb Hct MCV MCH MCHC RDW Plt Count Lymph % (Auto) [place] % (Auto) Eos % (Auto) Lymph # [place] # Eos # Seg Neutrophils % Seg Neuts % (Manual) Lymphocytes % (Manual) Monocytes % (Manual) Eosinophils % (Manual) Nucleated RBC % Seg Neutrophils # Seg Neutrophils # Man Lymphocytes # (Manual) Monocytes # (Manual) Eosinophils # (Manual) PT INR APTT POC ABG pH POC ABG pCO2 POC ABG pO2 Sodium Potassium Chloride Carbon Dioxide BUN Creatinine Glucose POC Glucose 240 H 117 H Lactic Acid 5.90 H* Calcium Phosphorus Magnesium Iron TIBC Ferritin Direct Bilirubin AST Total Creatine Kinase Troponin T Total Protein Albumin Prealbumin LDL Cholesterol Direct HDL Cholesterol Vitamin B12 TSH PTH Intact Urine Creatinine Urine Total Protein Vancomycin Trough Digoxin Salicylates Acetaminophen Crossmatch 03/19/19 03/19/19 03/19/19 21:19 22:07 23:00 WBC RBC Hgb Hct MCV MCH MCHC RDW Plt Count Lymph % (Auto) [place] % (Auto) Eos % (Auto) Lymph # [place] # Eos # Seg Neutrophils % Seg Neuts % (Manual) Lymphocytes % (Manual) Monocytes % (Manual) Eosinophils % (Manual) Nucleated RBC % Seg Neutrophils # Seg Neutrophils # Man Lymphocytes # (Manual) Monocytes # (Manual) Eosinophils # (Manual) PT INR APTT POC ABG pH POC ABG pCO2 POC ABG pO2 Sodium Potassium Chloride Carbon Dioxide BUN Creatinine Glucose POC Glucose < 40 L 136 H Lactic Acid 6.10 H* Calcium Phosphorus Magnesium Iron TIBC Ferritin Direct Bilirubin AST Total Creatine Kinase Troponin T Total Protein Albumin Prealbumin LDL Cholesterol Direct HDL Cholesterol Vitamin B12 TSH PTH Intact Urine Creatinine Urine Total Protein Vancomycin Trough Digoxin Salicylates Acetaminophen Crossmatch 03/20/19 03/20/19 03/20/19 00:05 01:38 02:23 WBC RBC Hgb Hct MCV MCH MCHC RDW Plt Count Lymph % (Auto) [place] % (Auto) Eos % (Auto) Lymph # [place] # Eos # Seg Neutrophils % Seg Neuts % (Manual) Lymphocytes % (Manual) Monocytes % (Manual) Eosinophils % (Manual) Nucleated RBC % Seg Neutrophils # Seg Neutrophils # Man Lymphocytes # (Manual) Monocytes # (Manual) Eosinophils # (Manual) PT INR APTT POC ABG pH POC ABG pCO2 POC ABG pO2 Sodium Potassium Chloride Carbon Dioxide BUN Creatinine Glucose POC Glucose 68 L 153 H 127 H Lactic Acid Calcium Phosphorus Magnesium Iron TIBC Ferritin Direct Bilirubin AST Total Creatine Kinase Troponin T Total Protein Albumin Prealbumin LDL Cholesterol Direct HDL Cholesterol Vitamin B12 TSH PTH Intact Urine Creatinine Urine Total Protein Vancomycin Trough Digoxin Salicylates Acetaminophen Crossmatch 03/20/19 03/20/19 03/20/19 03:12 04:31 04:41 WBC RBC Hgb Hct MCV MCH MCHC RDW Plt Count Lymph % (Auto) [place] % (Auto) Eos % (Auto) Lymph # [place] # Eos # Seg Neutrophils % Seg Neuts % (Manual) Lymphocytes % (Manual) Monocytes % (Manual) Eosinophils % (Manual) Nucleated RBC % Seg Neutrophils # Seg Neutrophils # Man Lymphocytes # (Manual) Monocytes # (Manual) Eosinophils # (Manual) PT INR APTT POC ABG pH POC ABG pCO2 POC ABG pO2 53 L 65 L Sodium Potassium Chloride Carbon Dioxide BUN Creatinine Glucose POC Glucose 109 H Lactic Acid Calcium Phosphorus Magnesium Iron TIBC Ferritin Direct Bilirubin AST Total Creatine Kinase Troponin T Total Protein Albumin Prealbumin LDL Cholesterol Direct HDL Cholesterol Vitamin B12 TSH PTH Intact Urine Creatinine Urine Total Protein Vancomycin Trough Digoxin Salicylates Acetaminophen Crossmatch 03/20/19 03/20/19 03/20/19 05:50 07:29 08:14 WBC RBC Hgb Hct MCV MCH MCHC RDW Plt Count Lymph % (Auto) [place] % (Auto) Eos % (Auto) Lymph # [place] # Eos # Seg Neutrophils % Seg Neuts % (Manual) Lymphocytes % (Manual) Monocytes % (Manual) Eosinophils % (Manual) Nucleated RBC % Seg Neutrophils # Seg Neutrophils # Man Lymphocytes # (Manual) Monocytes # (Manual) Eosinophils # (Manual) PT INR APTT POC ABG pH POC ABG pCO2 POC ABG pO2 Sodium Potassium Chloride Carbon Dioxide BUN Creatinine Glucose 61 L POC Glucose 47 L 153 H Lactic Acid Calcium Phosphorus Magnesium 1.60 L Iron TIBC Ferritin Direct Bilirubin AST Total Creatine Kinase Troponin T Total Protein Albumin Prealbumin LDL Cholesterol Direct HDL Cholesterol Vitamin B12 TSH PTH Intact Urine Creatinine Urine Total Protein Vancomycin Trough Digoxin Salicylates Acetaminophen Crossmatch 03/20/19 03/20/19 03/20/19 08:23 08:23 10:59 WBC RBC Hgb Hct MCV MCH MCHC RDW Plt Count Lymph % (Auto) [place] % (Auto) Eos % (Auto) Lymph # [place] # Eos # Seg Neutrophils % Seg Neuts % (Manual) Lymphocytes % (Manual) Monocytes % (Manual) Eosinophils % (Manual) Nucleated RBC % Seg Neutrophils # Seg Neutrophils # Man Lymphocytes # (Manual) Monocytes # (Manual) Eosinophils # (Manual) PT INR APTT POC ABG pH POC ABG pCO2 POC ABG pO2 Sodium Potassium Chloride Carbon Dioxide BUN Creatinine Glucose 101 H POC Glucose 233 H Lactic Acid 9.70 H* Calcium Phosphorus Magnesium Iron TIBC Ferritin Direct Bilirubin AST Total Creatine Kinase Troponin T Total Protein Albumin Prealbumin 0.052 L LDL Cholesterol Direct HDL Cholesterol Vitamin B12 TSH PTH Intact Urine Creatinine Urine Total Protein Vancomycin Trough Digoxin Salicylates Acetaminophen Crossmatch 03/20/19 03/20/19 03/20/19 12:23 16:10 16:40 WBC RBC Hgb Hct MCV MCH MCHC RDW Plt Count Lymph % (Auto) [place] % (Auto) Eos % (Auto) Lymph # [place] # Eos # Seg Neutrophils % Seg Neuts % (Manual) Lymphocytes % (Manual) Monocytes % (Manual) Eosinophils % (Manual) Nucleated RBC % Seg Neutrophils # Seg Neutrophils # Man Lymphocytes # (Manual) Monocytes # (Manual) Eosinophils # (Manual) PT INR APTT POC ABG pH POC ABG pCO2 POC ABG pO2 Sodium Potassium Chloride Carbon Dioxide BUN Creatinine Glucose POC Glucose 135 H 171 H Lactic Acid Calcium Phosphorus Magnesium Iron TIBC Ferritin Direct Bilirubin AST Total Creatine Kinase Troponin T Total Protein Albumin Prealbumin LDL Cholesterol Direct HDL Cholesterol Vitamin B12 TSH PTH Intact Urine Creatinine 53.7 H Urine Total Protein 36 H Vancomycin Trough Digoxin Salicylates Acetaminophen Crossmatch 03/20/19 03/20/19 03/20/19 16:57 17:38 17:50 WBC RBC Hgb Hct MCV MCH MCHC RDW Plt Count Lymph % (Auto) [place] % (Auto) Eos % (Auto) Lymph # [place] # Eos # Seg Neutrophils % Seg Neuts % (Manual) Lymphocytes % (Manual) Monocytes % (Manual) Eosinophils % (Manual) Nucleated RBC % Seg Neutrophils # Seg Neutrophils # Man Lymphocytes # (Manual) Monocytes # (Manual) Eosinophils # (Manual) PT INR APTT POC ABG pH POC ABG pCO2 POC ABG pO2 Sodium Potassium Chloride Carbon Dioxide BUN Creatinine Glucose POC Glucose 152 H 147 H Lactic Acid 9.90 H* Calcium Phosphorus Magnesium Iron TIBC Ferritin Direct Bilirubin AST Total Creatine Kinase Troponin T Total Protein Albumin Prealbumin LDL Cholesterol Direct HDL Cholesterol Vitamin B12 TSH PTH Intact Urine Creatinine Urine Total Protein Vancomycin Trough Digoxin Salicylates Acetaminophen Crossmatch 03/20/19 03/20/19 03/20/19 17:50 17:50 17:50 WBC RBC 2.92 L Hgb 10.0 L Hct 29.3 L MCV 100 H MCH 34 H MCHC RDW Plt Count 81 L Lymph % (Auto) [place] % (Auto) Eos % (Auto) Lymph # [place] # Eos # Seg Neutrophils % Seg Neuts % (Manual) Lymphocytes % (Manual) Monocytes % (Manual) Eosinophils % (Manual) Nucleated RBC % Seg Neutrophils # Seg Neutrophils # Man Lymphocytes # (Manual) Monocytes # (Manual) Eosinophils # (Manual) PT INR APTT POC ABG pH POC ABG pCO2 POC ABG pO2 Sodium Potassium 2.8 L* D Chloride Carbon Dioxide BUN 30 H Creatinine 1.6 H Glucose 107 H POC Glucose Lactic Acid Calcium 6.9 L Phosphorus 2.00 L Magnesium Iron TIBC Ferritin Direct Bilirubin AST Total Creatine Kinase Troponin T Total Protein Albumin Prealbumin LDL Cholesterol Direct HDL Cholesterol Vitamin B12 TSH PTH Intact 171.6 H Urine Creatinine Urine Total Protein Vancomycin Trough Digoxin Salicylates Acetaminophen Crossmatch 03/20/19 03/21/19 03/21/19 21:12 00:30 04:12 WBC RBC Hgb Hct MCV MCH MCHC RDW Plt Count Lymph % (Auto) [place] % (Auto) Eos % (Auto) Lymph # [place] # Eos # Seg Neutrophils % Seg Neuts % (Manual) Lymphocytes % (Manual) Monocytes % (Manual) Eosinophils % (Manual) Nucleated RBC % Seg Neutrophils # Seg Neutrophils # Man Lymphocytes # (Manual) Monocytes # (Manual) Eosinophils # (Manual) PT INR APTT POC ABG pH POC ABG pCO2 POC ABG pO2 Sodium Potassium 3.0 L Chloride Carbon Dioxide 21 L BUN Creatinine 1.4 H Glucose 103 H POC Glucose Lactic Acid 8.70 H* 9.40 H* Calcium 6.8 L Phosphorus Magnesium Iron TIBC Ferritin Direct Bilirubin AST Total Creatine Kinase Troponin T Total Protein Albumin Prealbumin LDL Cholesterol Direct HDL Cholesterol Vitamin B12 TSH PTH Intact Urine Creatinine Urine Total Protein Vancomycin Trough Digoxin Salicylates Acetaminophen Crossmatch 03/21/19 03/21/19 03/21/19 04:12 04:12 04:43 WBC RBC 2.84 L Hgb 9.5 L Hct 28.3 L MCV 100 H MCH 33 H MCHC RDW Plt Count 79 L Lymph % (Auto) [place] % (Auto) Eos % (Auto) Lymph # [place] # Eos # Seg Neutrophils % Seg Neuts % (Manual) Lymphocytes % (Manual) Monocytes % (Manual) Eosinophils % (Manual) Nucleated RBC % Seg Neutrophils # Seg Neutrophils # Man Lymphocytes # (Manual) Monocytes # (Manual) Eosinophils # (Manual) PT INR APTT POC ABG pH 7.456 H POC ABG pCO2 POC ABG pO2 Sodium Potassium Chloride Carbon Dioxide BUN Creatinine Glucose POC Glucose Lactic Acid 9.50 H* Calcium Phosphorus Magnesium Iron TIBC Ferritin Direct Bilirubin AST Total Creatine Kinase Troponin T Total Protein Albumin Prealbumin LDL Cholesterol Direct HDL Cholesterol Vitamin B12 TSH PTH Intact Urine Creatinine Urine Total Protein Vancomycin Trough Digoxin Salicylates Acetaminophen Crossmatch 03/21/19 03/21/19 03/21/19 08:06 08:08 10:11 WBC RBC Hgb Hct MCV MCH MCHC RDW Plt Count Lymph % (Auto) [place] % (Auto) Eos % (Auto) Lymph # [place] # Eos # Seg Neutrophils % Seg Neuts % (Manual) Lymphocytes % (Manual) Monocytes % (Manual) Eosinophils % (Manual) Nucleated RBC % Seg Neutrophils # Seg Neutrophils # Man Lymphocytes # (Manual) Monocytes # (Manual) Eosinophils # (Manual) PT INR APTT POC ABG pH POC ABG pCO2 POC ABG pO2 Sodium Potassium 3.5 L Chloride Carbon Dioxide BUN 22 H Creatinine 1.3 H Glucose POC Glucose 64 L Lactic Acid 8.00 H* Calcium 7.0 L Phosphorus Magnesium Iron TIBC Ferritin Direct Bilirubin AST Total Creatine Kinase Troponin T Total Protein Albumin Prealbumin LDL Cholesterol Direct HDL Cholesterol Vitamin B12 TSH PTH Intact Urine Creatinine Urine Total Protein Vancomycin Trough Digoxin Salicylates Acetaminophen Crossmatch 03/21/19 03/21/19 03/21/19 11:17 12:17 13:37 WBC RBC Hgb Hct MCV MCH MCHC RDW Plt Count Lymph % (Auto) [place] % (Auto) Eos % (Auto) Lymph # [place] # Eos # Seg Neutrophils % Seg Neuts % (Manual) Lymphocytes % (Manual) Monocytes % (Manual) Eosinophils % (Manual) Nucleated RBC % Seg Neutrophils # Seg Neutrophils # Man Lymphocytes # (Manual) Monocytes # (Manual) Eosinophils # (Manual) PT INR APTT POC ABG pH POC ABG pCO2 POC ABG pO2 Sodium Potassium Chloride Carbon Dioxide BUN Creatinine Glucose POC Glucose 173 H 110 H Lactic Acid Calcium Phosphorus Magnesium Iron TIBC Ferritin Direct Bilirubin AST Total Creatine Kinase Troponin T 0.033 H D Total Protein Albumin Prealbumin LDL Cholesterol Direct HDL Cholesterol Vitamin B12 TSH PTH Intact Urine Creatinine Urine Total Protein Vancomycin Trough Digoxin Salicylates Acetaminophen Crossmatch 03/21/19 03/21/19 03/21/19 13:37 17:21 18:52 WBC RBC Hgb Hct MCV MCH MCHC RDW Plt Count Lymph % (Auto) [place] % (Auto) Eos % (Auto) Lymph # [place] # Eos # Seg Neutrophils % Seg Neuts % (Manual) Lymphocytes % (Manual) Monocytes % (Manual) Eosinophils % (Manual) Nucleated RBC % Seg Neutrophils # Seg Neutrophils # Man Lymphocytes # (Manual) Monocytes # (Manual) Eosinophils # (Manual) PT INR APTT POC ABG pH POC ABG pCO2 POC ABG pO2 Sodium Potassium Chloride Carbon Dioxide BUN Creatinine Glucose POC Glucose 130 H 107 H Lactic Acid 6.80 H* Calcium Phosphorus Magnesium Iron TIBC Ferritin Direct Bilirubin AST Total Creatine Kinase Troponin T Total Protein Albumin Prealbumin LDL Cholesterol Direct HDL Cholesterol Vitamin B12 TSH PTH Intact Urine Creatinine Urine Total Protein Vancomycin Trough Digoxin Salicylates Acetaminophen Crossmatch 03/21/19 03/21/19 03/21/19 20:20 22:08 23:05 WBC RBC Hgb Hct MCV MCH MCHC RDW Plt Count Lymph % (Auto) [place] % (Auto) Eos % (Auto) Lymph # [place] # Eos # Seg Neutrophils % Seg Neuts % (Manual) Lymphocytes % (Manual) Monocytes % (Manual) Eosinophils % (Manual) Nucleated RBC % Seg Neutrophils # Seg Neutrophils # Man Lymphocytes # (Manual) Monocytes # (Manual) Eosinophils # (Manual) PT INR APTT POC ABG pH POC ABG pCO2 POC ABG pO2 Sodium Potassium Chloride Carbon Dioxide BUN Creatinine Glucose POC Glucose 106 H 106 H Lactic Acid Calcium Phosphorus Magnesium Iron TIBC Ferritin Direct Bilirubin AST Total Creatine Kinase Troponin T 0.036 H Total Protein Albumin Prealbumin LDL Cholesterol Direct HDL Cholesterol Vitamin B12 TSH PTH Intact Urine Creatinine Urine Total Protein Vancomycin Trough Digoxin Salicylates Acetaminophen Crossmatch 03/21/19 03/21/19 03/22/19 23:05 23:05 00:14 WBC RBC Hgb Hct MCV MCH MCHC RDW Plt Count Lymph % (Auto) [place] % (Auto) Eos % (Auto) Lymph # [place] # Eos # Seg Neutrophils % Seg Neuts % (Manual) Lymphocytes % (Manual) Monocytes % (Manual) Eosinophils % (Manual) Nucleated RBC % Seg Neutrophils # Seg Neutrophils # Man Lymphocytes # (Manual) Monocytes # (Manual) Eosinophils # (Manual) PT INR APTT POC ABG pH POC ABG pCO2 POC ABG pO2 Sodium Potassium Chloride Carbon Dioxide BUN Creatinine Glucose POC Glucose 122 H 109 H Lactic Acid 7.00 H* Calcium Phosphorus Magnesium Iron TIBC Ferritin Direct Bilirubin AST Total Creatine Kinase Troponin T Total Protein Albumin Prealbumin LDL Cholesterol Direct HDL Cholesterol Vitamin B12 TSH PTH Intact Urine Creatinine Urine Total Protein Vancomycin Trough Digoxin Salicylates Acetaminophen Crossmatch 03/22/19 03/22/19 03/22/19 03:10 04:02 05:11 WBC RBC Hgb Hct MCV MCH MCHC RDW Plt Count Lymph % (Auto) [place] % (Auto) Eos % (Auto) Lymph # [place] # Eos # Seg Neutrophils % Seg Neuts % (Manual) Lymphocytes % (Manual) Monocytes % (Manual) Eosinophils % (Manual) Nucleated RBC % Seg Neutrophils # Seg Neutrophils # Man Lymphocytes # (Manual) Monocytes # (Manual) Eosinophils # (Manual) PT INR APTT POC ABG pH 7.487 H POC ABG pCO2 POC ABG pO2 67 L Sodium Potassium Chloride Carbon Dioxide BUN Creatinine Glucose POC Glucose 114 H 112 H Lactic Acid Calcium Phosphorus Magnesium Iron TIBC Ferritin Direct Bilirubin AST Total Creatine Kinase Troponin T Total Protein Albumin Prealbumin LDL Cholesterol Direct HDL Cholesterol Vitamin B12 TSH PTH Intact Urine Creatinine Urine Total Protein Vancomycin Trough Digoxin Salicylates Acetaminophen Crossmatch 03/22/19 03/22/19 03/22/19 06:06 06:10 06:10 WBC RBC Hgb Hct MCV MCH MCHC RDW Plt Count Lymph % (Auto) [place] % (Auto) Eos % (Auto) Lymph # [place] # Eos # Seg Neutrophils % Seg Neuts % (Manual) Lymphocytes % (Manual) Monocytes % (Manual) Eosinophils % (Manual) Nucleated RBC % Seg Neutrophils # Seg Neutrophils # Man Lymphocytes # (Manual) Monocytes # (Manual) Eosinophils # (Manual) PT INR APTT POC ABG pH POC ABG pCO2 POC ABG pO2 Sodium Potassium 3.0 L Chloride Carbon Dioxide BUN Creatinine Glucose POC Glucose 115 H Lactic Acid Calcium 7.0 L Phosphorus Magnesium Iron TIBC Ferritin Direct Bilirubin AST Total Creatine Kinase Troponin T 0.036 H Total Protein Albumin Prealbumin LDL Cholesterol Direct HDL Cholesterol Vitamin B12 TSH PTH Intact Urine Creatinine Urine Total Protein Vancomycin Trough Digoxin Salicylates Acetaminophen Crossmatch 03/22/19 03/22/19 03/22/19 06:10 06:10 11:59 WBC RBC Hgb Hct MCV MCH MCHC RDW Plt Count Lymph % (Auto) [place] % (Auto) Eos % (Auto) Lymph # [place] # Eos # Seg Neutrophils % Seg Neuts % (Manual) Lymphocytes % (Manual) Monocytes % (Manual) Eosinophils % (Manual) Nucleated RBC % Seg Neutrophils # Seg Neutrophils # Man Lymphocytes # (Manual) Monocytes # (Manual) Eosinophils # (Manual) PT INR APTT POC ABG pH POC ABG pCO2 POC ABG pO2 Sodium Potassium Chloride Carbon Dioxide BUN Creatinine Glucose POC Glucose Lactic Acid 4.80 H* 3.80 H* Calcium Phosphorus Magnesium Iron TIBC Ferritin Direct Bilirubin AST Total Creatine Kinase Troponin T Total Protein Albumin Prealbumin LDL Cholesterol Direct HDL Cholesterol Vitamin B12 TSH 7.810 H PTH Intact Urine Creatinine Urine Total Protein Vancomycin Trough Digoxin Salicylates Acetaminophen Crossmatch 03/22/19 03/22/19 03/22/19 13:45 13:45 13:45 WBC RBC Hgb 8.3 L Hct 24.5 L MCV MCH MCHC RDW Plt Count 56 L Lymph % (Auto) [place] % (Auto) Eos % (Auto) Lymph # [place] # Eos # Seg Neutrophils % Seg Neuts % (Manual) Lymphocytes % (Manual) Monocytes % (Manual) Eosinophils % (Manual) Nucleated RBC % Seg Neutrophils # Seg Neutrophils # Man Lymphocytes # (Manual) Monocytes # (Manual) Eosinophils # (Manual) PT 21.4 H INR 1.90 H APTT 43.2 H POC ABG pH POC ABG pCO2 POC ABG pO2 Sodium Potassium Chloride Carbon Dioxide BUN Creatinine Glucose POC Glucose Lactic Acid 3.50 H* Calcium Phosphorus Magnesium Iron TIBC Ferritin Direct Bilirubin AST Total Creatine Kinase Troponin T Total Protein Albumin Prealbumin LDL Cholesterol Direct HDL Cholesterol Vitamin B12 TSH PTH Intact Urine Creatinine Urine Total Protein Vancomycin Trough Digoxin Salicylates Acetaminophen Crossmatch 03/22/19 03/23/19 03/23/19 22:20 01:06 04:50 WBC 12.1 H RBC 2.36 L Hgb 7.7 L Hct 22.9 L MCV MCH 33 H MCHC RDW Plt Count 37 L Lymph % (Auto) [place] % (Auto) Eos % (Auto) Lymph # [place] # Eos # Seg Neutrophils % Seg Neuts % (Manual) 83.0 H Lymphocytes % (Manual) 8.0 L Monocytes % (Manual) Eosinophils % (Manual) Nucleated RBC % Seg Neutrophils # Seg Neutrophils # Man 10.0 H Lymphocytes # (Manual) 1.0 L Monocytes # (Manual) Eosinophils # (Manual) PT INR APTT POC ABG pH POC ABG pCO2 POC ABG pO2 Sodium Potassium Chloride Carbon Dioxide BUN Creatinine Glucose POC Glucose Lactic Acid 3.60 H* 2.70 H* Calcium Phosphorus Magnesium Iron TIBC Ferritin Direct Bilirubin AST Total Creatine Kinase Troponin T Total Protein Albumin Prealbumin LDL Cholesterol Direct HDL Cholesterol Vitamin B12 TSH PTH Intact Urine Creatinine Urine Total Protein Vancomycin Trough Digoxin Salicylates Acetaminophen Crossmatch 03/23/19 03/23/19 03/23/19 04:50 05:25 05:53 WBC RBC Hgb Hct MCV MCH MCHC RDW Plt Count Lymph % (Auto) [place] % (Auto) Eos % (Auto) Lymph # [place] # Eos # Seg Neutrophils % Seg Neuts % (Manual) Lymphocytes % (Manual) Monocytes % (Manual) Eosinophils % (Manual) Nucleated RBC % Seg Neutrophils # Seg Neutrophils # Man Lymphocytes # (Manual) Monocytes # (Manual) Eosinophils # (Manual) PT INR APTT POC ABG pH POC ABG pCO2 33.3 L POC ABG pO2 Sodium Potassium 3.5 L Chloride 108.3 H Carbon Dioxide BUN Creatinine Glucose POC Glucose 68 L Lactic Acid Calcium 7.3 L Phosphorus Magnesium Iron TIBC Ferritin Direct Bilirubin AST Total Creatine Kinase Troponin T Total Protein Albumin Prealbumin LDL Cholesterol Direct HDL Cholesterol Vitamin B12 TSH PTH Intact Urine Creatinine Urine Total Protein Vancomycin Trough Digoxin Salicylates Acetaminophen Crossmatch 03/24/19 03/24/19 03/24/19 03:26 05:50 05:57 WBC RBC Hgb Hct MCV MCH MCHC RDW Plt Count Lymph % (Auto) [place] % (Auto) Eos % (Auto) Lymph # [place] # Eos # Seg Neutrophils % Seg Neuts % (Manual) Lymphocytes % (Manual) Monocytes % (Manual) Eosinophils % (Manual) Nucleated RBC % Seg Neutrophils # Seg Neutrophils # Man Lymphocytes # (Manual) Monocytes # (Manual) Eosinophils # (Manual) PT INR APTT POC ABG pH POC ABG pCO2 POC ABG pO2 78 L Sodium Potassium 3.4 L Chloride 116.5 H Carbon Dioxide 21 L BUN Creatinine 0.5 L Glucose 105 H POC Glucose 127 H Lactic Acid Calcium 6.4 L Phosphorus Magnesium Iron TIBC Ferritin Direct Bilirubin AST Total Creatine Kinase Troponin T Total Protein Albumin Prealbumin LDL Cholesterol Direct HDL Cholesterol Vitamin B12 TSH PTH Intact Urine Creatinine Urine Total Protein Vancomycin Trough Digoxin Salicylates Acetaminophen Crossmatch 03/24/19 03/24/19 03/24/19 06:00 11:30 12:25 WBC 13.6 H RBC 2.08 L Hgb 6.9 L Hct 20.5 L MCV 99 H MCH 33 H MCHC RDW Plt Count 50 L Lymph % (Auto) 8.1 L [place] % (Auto) 10.0 H Eos % (Auto) Lymph # 1.1 L [place] # 1.4 H Eos # Seg Neutrophils % 80.7 H Seg Neuts % (Manual) Lymphocytes % (Manual) Monocytes % (Manual) Eosinophils % (Manual) Nucleated RBC % Seg Neutrophils # 11.0 H Seg Neutrophils # Man Lymphocytes # (Manual) Monocytes # (Manual) Eosinophils # (Manual) PT INR APTT POC ABG pH POC ABG pCO2 POC ABG pO2 Sodium Potassium Chloride Carbon Dioxide BUN Creatinine Glucose POC Glucose 111 H Lactic Acid Calcium Phosphorus Magnesium Iron TIBC Ferritin Direct Bilirubin AST Total Creatine Kinase Troponin T Total Protein Albumin Prealbumin LDL Cholesterol Direct HDL Cholesterol Vitamin B12 TSH PTH Intact Urine Creatinine Urine Total Protein Vancomycin Trough Digoxin Salicylates Acetaminophen Crossmatch See Detail 03/24/19 03/25/19 03/25/19 14:25 05:20 10:00 WBC 13.4 H RBC 2.54 L Hgb 8.1 L Hct 24.3 L MCV MCH MCHC RDW 17.3 H Plt Count 44 L Lymph % (Auto) [place] % (Auto) Eos % (Auto) Lymph # [place] # Eos # Seg Neutrophils % Seg Neuts % (Manual) Lymphocytes % (Manual) Monocytes % (Manual) Eosinophils % (Manual) Nucleated RBC % Seg Neutrophils # Seg Neutrophils # Man Lymphocytes # (Manual) Monocytes # (Manual) Eosinophils # (Manual) PT INR APTT POC ABG pH POC ABG pCO2 POC ABG pO2 Sodium Potassium Chloride Carbon Dioxide BUN Creatinine Glucose POC Glucose 111 H Lactic Acid Calcium Phosphorus Magnesium Iron 32 L TIBC 75 L Ferritin Direct Bilirubin AST Total Creatine Kinase Troponin T Total Protein Albumin Prealbumin LDL Cholesterol Direct HDL Cholesterol Vitamin B12 TSH PTH Intact Urine Creatinine Urine Total Protein Vancomycin Trough Digoxin Salicylates Acetaminophen Crossmatch 03/25/19 03/25/19 03/25/19 10:11 10:11 23:11 WBC RBC Hgb Hct MCV MCH MCHC RDW Plt Count Lymph % (Auto) [place] % (Auto) Eos % (Auto) Lymph # [place] # Eos # Seg Neutrophils % Seg Neuts % (Manual) Lymphocytes % (Manual) Monocytes % (Manual) Eosinophils % (Manual) Nucleated RBC % Seg Neutrophils # Seg Neutrophils # Man Lymphocytes # (Manual) Monocytes # (Manual) Eosinophils # (Manual) PT INR APTT POC ABG pH POC ABG pCO2 POC ABG pO2 Sodium Potassium Chloride 112.0 H Carbon Dioxide BUN 20 H Creatinine 0.6 L Glucose POC Glucose 112 H Lactic Acid Calcium 7.2 L Phosphorus Magnesium Iron TIBC Ferritin Direct Bilirubin AST Total Creatine Kinase Troponin T Total Protein Albumin Prealbumin LDL Cholesterol Direct HDL Cholesterol Vitamin B12 > 2000 H TSH PTH Intact Urine Creatinine Urine Total Protein Vancomycin Trough Digoxin Salicylates Acetaminophen Crossmatch 03/26/19 03/26/19 03/26/19 05:00 05:00 05:16 WBC 14.4 H RBC 2.74 L Hgb 8.9 L Hct 25.7 L MCV MCH 33 H MCHC 35 H RDW 16.9 H Plt Count 60 L Lymph % (Auto) [place] % (Auto) Eos % (Auto) Lymph # [place] # Eos # Seg Neutrophils % Seg Neuts % (Manual) 83.0 H Lymphocytes % (Manual) 5.0 L Monocytes % (Manual) Eosinophils % (Manual) 5.0 H Nucleated RBC % 1.0 H Seg Neutrophils # Seg Neutrophils # Man 12.0 H Lymphocytes # (Manual) 0.7 L Monocytes # (Manual) 0.9 H Eosinophils # (Manual) 0.7 H PT INR APTT POC ABG pH POC ABG pCO2 POC ABG pO2 Sodium Potassium 3.1 L Chloride 110.4 H Carbon Dioxide BUN 22 H Creatinine Glucose 101 H POC Glucose 114 H Lactic Acid Calcium 7.4 L Phosphorus Magnesium Iron TIBC Ferritin Direct Bilirubin AST Total Creatine Kinase Troponin T Total Protein Albumin Prealbumin LDL Cholesterol Direct HDL Cholesterol Vitamin B12 TSH PTH Intact Urine Creatinine Urine Total Protein Vancomycin Trough Digoxin Salicylates Acetaminophen Crossmatch 03/26/19 03/27/19 03/27/19 11:55 09:04 09:04 WBC RBC Hgb Hct MCV MCH MCHC RDW Plt Count Lymph % (Auto) [place] % (Auto) Eos % (Auto) Lymph # [place] # Eos # Seg Neutrophils % Seg Neuts % (Manual) Lymphocytes % (Manual) Monocytes % (Manual) Eosinophils % (Manual) Nucleated RBC % Seg Neutrophils # Seg Neutrophils # Man Lymphocytes # (Manual) Monocytes # (Manual) Eosinophils # (Manual) PT INR APTT POC ABG pH POC ABG pCO2 POC ABG pO2 Sodium Potassium 3.2 L Chloride Carbon Dioxide BUN 22 H Creatinine Glucose POC Glucose 121 H Lactic Acid Calcium 7.7 L Phosphorus Magnesium Iron TIBC Ferritin Direct Bilirubin AST Total Creatine Kinase Troponin T Total Protein Albumin Prealbumin LDL Cholesterol Direct HDL Cholesterol Vitamin B12 TSH PTH Intact Urine Creatinine Urine Total Protein Vancomycin Trough 23.0 H Digoxin Salicylates Acetaminophen Crossmatch 03/27/19 03/27/19 03/27/19 09:04 13:31 14:04 WBC 14.8 H RBC 2.52 L Hgb 8.0 L 8.3 L Hct 24.0 L 25.3 L MCV MCH MCHC RDW 17.0 H Plt Count 89 L 91 L Lymph % (Auto) [place] % (Auto) 8.8 H Eos % (Auto) Lymph # [place] # 1.3 H Eos # Seg Neutrophils % 70.7 H Seg Neuts % (Manual) Lymphocytes % (Manual) Monocytes % (Manual) Eosinophils % (Manual) Nucleated RBC % Seg Neutrophils # 10.5 H Seg Neutrophils # Man Lymphocytes # (Manual) Monocytes # (Manual) Eosinophils # (Manual) PT INR APTT POC ABG pH POC ABG pCO2 POC ABG pO2 Sodium Potassium Chloride Carbon Dioxide BUN Creatinine Glucose POC Glucose Lactic Acid Calcium Phosphorus Magnesium Iron TIBC Ferritin Direct Bilirubin 0.3 H AST Total Creatine Kinase Troponin T Total Protein 4.9 L Albumin 1.3 L Prealbumin LDL Cholesterol Direct HDL Cholesterol Vitamin B12 TSH PTH Intact Urine Creatinine Urine Total Protein Vancomycin Trough Digoxin Salicylates Acetaminophen Crossmatch 03/27/19 03/27/19 03/28/19 14:04 23:51 01:05 WBC 14.4 H RBC 2.44 L Hgb 8.0 L Hct 24.5 L MCV 100 H MCH 33 H MCHC RDW 18.5 H Plt Count 86 L Lymph % (Auto) [place] % (Auto) Eos % (Auto) Lymph # [place] # Eos # Seg Neutrophils % Seg Neuts % (Manual) 84.0 H Lymphocytes % (Manual) 10.0 L Monocytes % (Manual) Eosinophils % (Manual) Nucleated RBC % Seg Neutrophils # Seg Neutrophils # Man 12.1 H Lymphocytes # (Manual) Monocytes # (Manual) Eosinophils # (Manual) PT 21.4 H INR 1.90 H APTT 42.2 H POC ABG pH POC ABG pCO2 POC ABG pO2 Sodium Potassium Chloride Carbon Dioxide BUN Creatinine Glucose POC Glucose 130 H Lactic Acid Calcium Phosphorus Magnesium Iron TIBC Ferritin Direct Bilirubin AST Total Creatine Kinase Troponin T Total Protein Albumin Prealbumin LDL Cholesterol Direct HDL Cholesterol Vitamin B12 TSH PTH Intact Urine Creatinine Urine Total Protein Vancomycin Trough Digoxin Salicylates Acetaminophen Crossmatch 03/28/19 03/28/19 03/28/19 02:51 04:45 07:31 WBC RBC Hgb Hct MCV MCH MCHC RDW Plt Count Lymph % (Auto) [place] % (Auto) Eos % (Auto) Lymph # [place] # Eos # Seg Neutrophils % Seg Neuts % (Manual) Lymphocytes % (Manual) Monocytes % (Manual) Eosinophils % (Manual) Nucleated RBC % Seg Neutrophils # Seg Neutrophils # Man Lymphocytes # (Manual) Monocytes # (Manual) Eosinophils # (Manual) PT INR APTT 75.0 H* POC ABG pH POC ABG pCO2 POC ABG pO2 Sodium Potassium Chloride Carbon Dioxide BUN 22 H Creatinine Glucose POC Glucose Lactic Acid Calcium 7.8 L Phosphorus Magnesium Iron TIBC Ferritin 448.3 H Direct Bilirubin AST Total Creatine Kinase Troponin T Total Protein Albumin Prealbumin LDL Cholesterol Direct HDL Cholesterol Vitamin B12 TSH PTH Intact Urine Creatinine Urine Total Protein Vancomycin Trough Digoxin Salicylates Acetaminophen Crossmatch 03/28/19 03/29/19 03/29/19 14:30 04:40 04:40 WBC RBC 2.17 L Hgb 7.1 L Hct 20.8 L MCV MCH 33 H MCHC RDW 17.1 H Plt Count 122 L Lymph % (Auto) [place] % (Auto) Eos % (Auto) Lymph # [place] # Eos # Seg Neutrophils % Seg Neuts % (Manual) Lymphocytes % (Manual) Monocytes % (Manual) Eosinophils % (Manual) Nucleated RBC % Seg Neutrophils # Seg Neutrophils # Man Lymphocytes # (Manual) Monocytes # (Manual) Eosinophils # (Manual) PT INR APTT 70.3 H* POC ABG pH POC ABG pCO2 POC ABG pO2 Sodium Potassium Chloride Carbon Dioxide 31 H BUN 22 H Creatinine 0.5 L Glucose POC Glucose Lactic Acid Calcium 8.0 L Phosphorus Magnesium Iron TIBC Ferritin Direct Bilirubin AST Total Creatine Kinase Troponin T Total Protein 5.0 L Albumin 1.4 L Prealbumin LDL Cholesterol Direct HDL Cholesterol Vitamin B12 TSH PTH Intact Urine Creatinine Urine Total Protein Vancomycin Trough Digoxin Salicylates Acetaminophen Crossmatch 03/29/19 03/29/19 03/29/19 04:40 04:40 11:50 WBC RBC Hgb Hct MCV MCH MCHC RDW Plt Count Lymph % (Auto) [place] % (Auto) Eos % (Auto) Lymph # [place] # Eos # Seg Neutrophils % Seg Neuts % (Manual) Lymphocytes % (Manual) Monocytes % (Manual) Eosinophils % (Manual) Nucleated RBC % Seg Neutrophils # Seg Neutrophils # Man Lymphocytes # (Manual) Monocytes # (Manual) Eosinophils # (Manual) PT INR APTT 71.8 H* POC ABG pH POC ABG pCO2 POC ABG pO2 Sodium Potassium Chloride Carbon Dioxide BUN Creatinine Glucose POC Glucose 118 H Lactic Acid Calcium Phosphorus Magnesium Iron TIBC Ferritin Direct Bilirubin AST Total Creatine Kinase Troponin T Total Protein Albumin Prealbumin LDL Cholesterol Direct HDL Cholesterol Vitamin B12 TSH PTH Intact Urine Creatinine Urine Total Protein Vancomycin Trough Digoxin 3.5 H* Salicylates Acetaminophen Crossmatch 03/29/19 03/29/19 03/29/19 16:20 16:20 21:10 WBC RBC Hgb Hct MCV MCH MCHC RDW Plt Count Lymph % (Auto) [place] % (Auto) Eos % (Auto) Lymph # [place] # Eos # Seg Neutrophils % Seg Neuts % (Manual) Lymphocytes % (Manual) Monocytes % (Manual) Eosinophils % (Manual) Nucleated RBC % Seg Neutrophils # Seg Neutrophils # Man Lymphocytes # (Manual) Monocytes # (Manual) Eosinophils # (Manual) PT INR APTT 61.5 H* 112.6 H* POC ABG pH POC ABG pCO2 POC ABG pO2 Sodium Potassium Chloride Carbon Dioxide BUN Creatinine Glucose POC Glucose Lactic Acid Calcium Phosphorus Magnesium Iron TIBC Ferritin Direct Bilirubin AST Total Creatine Kinase Troponin T Total Protein Albumin Prealbumin LDL Cholesterol Direct HDL Cholesterol Vitamin B12 TSH PTH Intact Urine Creatinine Urine Total Protein Vancomycin Trough Digoxin 2.6 H* Salicylates Acetaminophen Crossmatch 03/29/19 03/30/19 03/30/19 22:30 04:42 04:42 WBC RBC Hgb 6.4 L Hct 18.9 L* MCV MCH MCHC RDW Plt Count Lymph % (Auto) [place] % (Auto) Eos % (Auto) Lymph # [place] # Eos # Seg Neutrophils % Seg Neuts % (Manual) Lymphocytes % (Manual) Monocytes % (Manual) Eosinophils % (Manual) Nucleated RBC % Seg Neutrophils # Seg Neutrophils # Man Lymphocytes # (Manual) Monocytes # (Manual) Eosinophils # (Manual) PT INR APTT 103.8 H* POC ABG pH POC ABG pCO2 POC ABG pO2 Sodium Potassium Chloride Carbon Dioxide BUN Creatinine Glucose POC Glucose Lactic Acid Calcium Phosphorus Magnesium Iron TIBC Ferritin Direct Bilirubin AST Total Creatine Kinase Troponin T Total Protein Albumin Prealbumin LDL Cholesterol Direct HDL Cholesterol Vitamin B12 TSH PTH Intact Urine Creatinine Urine Total Protein Vancomycin Trough Digoxin 2.6 H* Salicylates Acetaminophen Crossmatch 03/30/19 03/30/19 03/30/19 07:04 07:58 11:15 WBC RBC 2.66 L Hgb 8.5 L Hct 25.3 L D MCV MCH MCHC RDW 17.4 H Plt Count Lymph % (Auto) [place] % (Auto) Eos % (Auto) Lymph # [place] # Eos # Seg Neutrophils % Seg Neuts % (Manual) Lymphocytes % (Manual) Monocytes % (Manual) Eosinophils % (Manual) Nucleated RBC % Seg Neutrophils # Seg Neutrophils # Man Lymphocytes # (Manual) Monocytes # (Manual) Eosinophils # (Manual) PT INR APTT 50.5 H POC ABG pH POC ABG pCO2 POC ABG pO2 Sodium Potassium Chloride Carbon Dioxide BUN Creatinine Glucose POC Glucose Lactic Acid Calcium Phosphorus Magnesium Iron TIBC Ferritin Direct Bilirubin AST Total Creatine Kinase Troponin T Total Protein Albumin Prealbumin LDL Cholesterol Direct HDL Cholesterol Vitamin B12 TSH PTH Intact Urine Creatinine Urine Total Protein Vancomycin Trough Digoxin Salicylates Acetaminophen Crossmatch See Detail 03/30/19 03/30/19 03/30/19 11:36 17:40 22:51 WBC RBC 2.48 L Hgb 7.9 L Hct 23.9 L MCV MCH MCHC RDW 17.7 H Plt Count Lymph % (Auto) [place] % (Auto) Eos % (Auto) Lymph # [place] # Eos # Seg Neutrophils % Seg Neuts % (Manual) Lymphocytes % (Manual) Monocytes % (Manual) Eosinophils % (Manual) Nucleated RBC % Seg Neutrophils # Seg Neutrophils # Man Lymphocytes # (Manual) Monocytes # (Manual) Eosinophils # (Manual) PT INR APTT POC ABG pH POC ABG pCO2 POC ABG pO2 Sodium Potassium Chloride Carbon Dioxide BUN Creatinine Glucose POC Glucose 129 H 112 H Lactic Acid Calcium Phosphorus Magnesium Iron TIBC Ferritin Direct Bilirubin AST Total Creatine Kinase Troponin T Total Protein Albumin Prealbumin LDL Cholesterol Direct HDL Cholesterol Vitamin B12 TSH PTH Intact Urine Creatinine Urine Total Protein Vancomycin Trough Digoxin Salicylates Acetaminophen Crossmatch 03/30/19 03/31/19 03/31/19 23:47 05:00 11:35 WBC RBC Hgb 8.0 L Hct 23.7 L MCV MCH MCHC RDW Plt Count Lymph % (Auto) [place] % (Auto) Eos % (Auto) Lymph # [place] # Eos # Seg Neutrophils % Seg Neuts % (Manual) Lymphocytes % (Manual) Monocytes % (Manual) Eosinophils % (Manual) Nucleated RBC % Seg Neutrophils # Seg Neutrophils # Man Lymphocytes # (Manual) Monocytes # (Manual) Eosinophils # (Manual) PT INR APTT POC ABG pH POC ABG pCO2 POC ABG pO2 Sodium Potassium Chloride Carbon Dioxide BUN Creatinine Glucose POC Glucose 112 H 106 H Lactic Acid Calcium Phosphorus Magnesium Iron TIBC Ferritin Direct Bilirubin AST Total Creatine Kinase Troponin T Total Protein Albumin Prealbumin LDL Cholesterol Direct HDL Cholesterol Vitamin B12 TSH PTH Intact Urine Creatinine Urine Total Protein Vancomycin Trough Digoxin Salicylates Acetaminophen Crossmatch 04/01/19 04/02/19 04/03/19 11:38 08:33 06:15 WBC RBC 2.11 L Hgb 7.8 L 6.8 L Hct 23.1 L 20.5 L MCV 98 H MCH MCHC RDW 17.6 H Plt Count Lymph % (Auto) [place] % (Auto) 12.1 H Eos % (Auto) 7.4 H Lymph # [place] # Eos # Seg Neutrophils % Seg Neuts % (Manual) Lymphocytes % (Manual) Monocytes % (Manual) Eosinophils % (Manual) Nucleated RBC % Seg Neutrophils # Seg Neutrophils # Man Lymphocytes # (Manual) Monocytes # (Manual) Eosinophils # (Manual) PT INR APTT POC ABG pH POC ABG pCO2 POC ABG pO2 Sodium Potassium Chloride Carbon Dioxide BUN Creatinine Glucose POC Glucose 136 H Lactic Acid Calcium Phosphorus Magnesium Iron TIBC Ferritin Direct Bilirubin AST Total Creatine Kinase Troponin T Total Protein Albumin Prealbumin LDL Cholesterol Direct HDL Cholesterol Vitamin B12 TSH PTH Intact Urine Creatinine Urine Total Protein Vancomycin Trough Digoxin Salicylates Acetaminophen Crossmatch 04/03/19 04/04/19 04/04/19 08:22 05:20 05:20 WBC RBC 2.27 L Hgb 7.3 L 7.3 L Hct 21.9 L 22.0 L MCV MCH MCHC RDW 16.8 H Plt Count Lymph % (Auto) [place] % (Auto) 12.2 H Eos % (Auto) 6.6 H Lymph # [place] # 1.0 H Eos # 0.5 H Seg Neutrophils % Seg Neuts % (Manual) Lymphocytes % (Manual) Monocytes % (Manual) Eosinophils % (Manual) Nucleated RBC % Seg Neutrophils # Seg Neutrophils # Man Lymphocytes # (Manual) Monocytes # (Manual) Eosinophils # (Manual) PT INR APTT POC ABG pH POC ABG pCO2 POC ABG pO2 Sodium Potassium Chloride Carbon Dioxide BUN Creatinine 0.4 L Glucose POC Glucose Lactic Acid Calcium 7.9 L Phosphorus 2.20 L Magnesium 1.40 L Iron TIBC Ferritin Direct Bilirubin AST Total Creatine Kinase Troponin T Total Protein Albumin Prealbumin LDL Cholesterol Direct HDL Cholesterol Vitamin B12 TSH PTH Intact Urine Creatinine Urine Total Protein Vancomycin Trough Digoxin Salicylates Acetaminophen Crossmatch 04/05/19 04/05/19 04/05/19 03:30 03:30 06:51 WBC RBC 2.09 L Hgb 6.7 L Hct 20.1 L MCV MCH MCHC RDW 16.6 H Plt Count Lymph % (Auto) [place] % (Auto) 12.6 H Eos % (Auto) 6.2 H Lymph # [place] # 1.0 H Eos # 0.5 H Seg Neutrophils % Seg Neuts % (Manual) Lymphocytes % (Manual) Monocytes % (Manual) Eosinophils % (Manual) Nucleated RBC % Seg Neutrophils # Seg Neutrophils # Man Lymphocytes # (Manual) Monocytes # (Manual) Eosinophils # (Manual) PT INR APTT POC ABG pH POC ABG pCO2 POC ABG pO2 Sodium Potassium Chloride Carbon Dioxide BUN Creatinine 0.4 L Glucose POC Glucose Lactic Acid Calcium 7.6 L Phosphorus Magnesium Iron TIBC Ferritin Direct Bilirubin AST Total Creatine Kinase Troponin T Total Protein Albumin Prealbumin LDL Cholesterol Direct HDL Cholesterol Vitamin B12 TSH PTH Intact Urine Creatinine Urine Total Protein Vancomycin Trough Digoxin Salicylates Acetaminophen Crossmatch See Detail 04/05/19 13:07 WBC RBC Hgb Hct MCV MCH MCHC RDW Plt Count Lymph % (Auto) [place] % (Auto) Eos % (Auto) Lymph # [place] # Eos # Seg Neutrophils % Seg Neuts % (Manual) Lymphocytes % (Manual) Monocytes % (Manual) Eosinophils % (Manual) Nucleated RBC % Seg Neutrophils # Seg Neutrophils # Man Lymphocytes # (Manual) Monocytes # (Manual) Eosinophils # (Manual) PT INR APTT POC ABG pH POC ABG pCO2 POC ABG pO2 Sodium Potassium Chloride Carbon Dioxide BUN Creatinine Glucose POC Glucose 106 H Lactic Acid Calcium Phosphorus Magnesium Iron TIBC Ferritin Direct Bilirubin AST Total Creatine Kinase Troponin T Total Protein Albumin Prealbumin LDL Cholesterol Direct HDL Cholesterol Vitamin B12 TSH PTH Intact Urine Creatinine Urine Total Protein Vancomycin Trough Digoxin Salicylates Acetaminophen Crossmatch Chest x-ray: report reviewed, image reviewed (no change)
--- NOTE | 2019-04-05 14:18 | Event Note ---
Date: 04/05/19 Patient lower extremity DVT, unable to anticoagulate secondary to worsening anemia. We'll plan on placing an IVC filter tomorrow.
--- NOTE | 2019-04-05 14:43 | Progress Note ---
Assessment and Plan Cultures/ID related labs: 03/27 tracheal aspirate - heavy neutrophils, usual resp maday Blood culture 03/19/2019 negative. Urine culture 03/19/2019 negative. 03/23/2019 tracheal aspirate culture: Usual resp maday Assessment: 73 y/o female with history of dementia, prior CVA, on home hospice admitted on 03/20/2019 brought by EMS due to altered mental status: 1) Sepsis with septic shock: source pneumonia but persistent fever. UA negative . Blood culture 03/19/2019 no growth. Urine culture 03/19/2019 negative. Will stop antibiotics as per #6. If patient decompensates would restart vanc and wiley. Has completed full course for pneumonia. 2) Bilateral pneumonia: ? aspiration v/s CAP. Trach aspirate cultures usual resp maday, <25 WBC. 3) Acute encephalopathy: CT head without contrast shows encephalomalacia in the entire right cerebral hemisphere, volume loss in the left cerebral hemisphere, no acute parenchymal lesion in the brain. 4) Acute respiratory failure: remains intubated, on the vent. Responsive to commands today. 5) HA: improved. 6) Persistent fevers - Improved with cessation of antibiotics. Had Tmax 100.7. Will continue to monitor, but she is improved. 7) DVTs - DVT of RIJ at catheter site as well as R common femoral, and a superficial thrombus in R greater saphenous. For IVC filter. Will continue to follow along with you. Recommendations: monitor closely low threshold to restart ABx if she decompensates Guarded prognosis, was on home hospice prior to admission MD [facility] C: [phone] O: [phone] F: [phone] Subjective Date of service: 04/05/19 Principal diagnosis: anemia - DVT Interval history: Remains intubated. Weakly responsive to commands. Fevers greatly improved. Objective - Exam Narrative Exam: Constitutional: asleep, no distress, weakly following commands Head, Ears, Nose: Normocephalic, atraumatic. External ears, nose normal Eyes: Conjunctivae/corneas clear. No icterus. No ptosis. Neck: Supple, no meningeal signs Oral: Intubated Cardiovascular: S1, S2 normal. Normal rhythm Respiratory: Good air entry, clear to auscultation bilaterally GI: Soft, non-tender; bowel sounds normal. No peritoneal signs Musculoskeletal: No pedal edema Skin: No rash or abscess Hem/Lymphatic: No palpable cervical or supraclavicular nodes. No lymphangitis Psych: no agitation Neurological: weak, 3/5 strength extremities. - Constitutional Vitals: Vital Signs Temp Pulse Resp BP Pulse Ox 98.0 F 95 H 22 162/79 99 04/05/19 14:21 04/05/19 14:21 04/05/19 14:21 04/05/19 14:21 04/05/19 14:21 Temperature -Last 24 Hours Temperature 98.0 F Temperature 98.2 F Temperature 97.9 F Temperature 97.6 F Temperature 100.7 F Temperature 98.0 F Temperature 98.0 F Temperature 101.3 F Temperature 101.3 F Temperature 99.9 F Temperature 98 F Temperature 100.5 F Temperature 99.5 F - Labs CBC & Chem 7: 04/05/19 03:30 04/05/19 03:30 Labs: Abnormal lab results 03/30/19 04/05/19 04/05/19 Range/Units 07:04 03:30 03:30 RBC 2.09 L (3.65-5.03) M/mm3 Hgb 6.7 L (10.1-14.3) gm/dl Hct 20.1 L (30.3-42.9) % RDW 16.6 H (13.2-15.2) % [place] % (Auto) 12.6 H (0.0-7.3) % Eos % (Auto) 6.2 H (0.0-4.3) % [place] # 1.0 H (0.0-0.8) K/mm3 Eos # 0.5 H (0.0-0.4) K/mm3 Creatinine 0.4 L (0.7-1.2) mg/dL POC Glucose (70-105) Calcium 7.6 L (8.4-10.2) mg/dL Crossmatch See Detail 04/05/19 04/05/19 Range/Units 06:51 13:07 RBC (3.65-5.03) M/mm3 Hgb (10.1-14.3) gm/dl Hct (30.3-42.9) % RDW (13.2-15.2) % [place] % (Auto) (0.0-7.3) % Eos % (Auto) (0.0-4.3) % [place] # (0.0-0.8) K/mm3 Eos # (0.0-0.4) K/mm3 Creatinine (0.7-1.2) mg/dL POC Glucose 106 H (70-105) Calcium (8.4-10.2) mg/dL Crossmatch See Detail
--- NOTE | 2019-04-05 15:08 | Consultation ---
History of Present Illness Consult date: 04/05/19 Requesting physician: MIHIR DESAI Chief complaint: respiratory failure - History of present illness History of present illness: 73yo F with multiple medical issues including sepsis, PNA, afib, etc who initially presented on 03/19 with AMS. Pt has slowly improved since then, but remains ventilator dependent. We are asked to see the patient for consideration of a trach/PEG. Pt is awake and able to follow commands. Seems to indicated that she is ok with placement of the trach and PEG. Past History Past Medical History: stroke, other (not available) Past Surgical History: Other (not available) Social history: lives with family, full code Family history: hypertension Medications and Allergies Allergies Allergy/AdvReac Type Severity Reaction Status Date / Time No Known Allergies Allergy Unverified 03/19/19 13:11 Home Medications Medication Instructions Recorded Confirmed Last Taken Type Aspirin EC 81 mg PO DAILY 03/20/19 03/20/19 Unknown History Divalproex Sodium 375 mg PO Q8H PRN 03/20/19 03/20/19 Unknown History Metoprolol [Lopressor TAB] 50 mg PO BID 03/20/19 03/20/19 Unknown History Sennosides/Docusate Sodium [Senna 8.6 mg PO BID PRN 03/20/19 03/20/19 Unknown History Plus Tablet] levETIRAcetam [Keppra TAB] 500 mg PO BID 03/20/19 03/20/19 Unknown History Active Meds: Active Medications Acetaminophen (Tylenol) 650 mg FEEDTUBE Q6H PRN PRN Reason: Fever >101 Last Admin: 04/05/19 11:43 Dose: 650 mg Documented by: Albuterol (Proventil) 2.5 mg IH Q3HRT PRN PRN Reason: Shortness Of Breath Albuterol/Ipratropium (Duoneb *Not For Prn Use*) 1 ampul IH Q6HRT [facility] Last Admin: 04/05/19 13:45 Dose: 1 ampul Documented by: Amiodarone HCl (Cordarone) 200 mg PO BID [facility] Last Admin: 04/05/19 09:52 Dose: 200 mg Documented by: Lipase/Protease/Amylase (Naomi Dr 10,500 Unit) 1 each FEEDTUBE PRN PRN PRN Reason: For Clogged Feeding Tube Aspirin (Baby Aspirin) 81 mg PO DAILY [facility] Last Admin: 04/05/19 09:52 Dose: 81 mg Documented by: Budesonide (Pulmicort) 0.5 mg IH Q12HRT [facility] Last Admin: 04/05/19 07:45 Dose: 0.5 mg Documented by: Dextrose (D50w (25gm) Syringe) 50 ml IV PRN PRN PRN Reason: Hypoglycemia Last Admin: 03/21/19 16:29 Dose: 50 ml Documented by: Famotidine (Pepcid) 20 mg PO BID [facility] Last Admin: 04/05/19 09:52 Dose: 20 mg Documented by: Fentanyl (Sublimaze) 50 mcg IV Q10MIN PRN PRN Reason: ANALGESIA Last Admin: 03/19/19 13:26 Dose: 50 mcg Documented by: Hydromorphone HCl (Dilaudid) 0.5 mg IV Q3H PRN PRN Reason: Pain , Severe (7-10) Hydrophilic Ointment (Vaseline Lip Therapy) 1 applic TP Q2HR PRN PRN Reason: Dry Lips Fentanyl Citrate (Fentanyl Drip Premix) 2,000 mcg in 100 mls @ 2.835 mls/hr IV TITR [facility]; Protocol Last Titration: 03/21/19 11:33 Dose: 0 mcg/kg/hr, 0 mls/hr Documented by: Norepinephrine (Levophed Drip 4 Mg/Ns 250 Ml) 4 mg in 250 mls @ 7.5 mls/hr IV TITR [facility]; Protocol Last Titration: 03/30/19 23:45 Dose: 0 mcg/min, 0 mls/hr Documented by: Insulin Human Lispro (Humalog) 0 unit SUB-Q Q6HR [facility]; Protocol Last Admin: 04/05/19 13:08 Dose: Not Given Documented by: Metoclopramide HCl (Reglan) 5 mg IV Q6H PRN PRN Reason: Nausea And Vomiting Metoprolol Tartrate (Lopressor) 2.5 mg IV Q2HR PRN PRN Reason: HR >150 Last Admin: 03/24/19 21:20 Dose: 2.5 mg Documented by: Multi-Ingred Cream/Lotion/Oil/Oint (Artificial Tears Ophth Oint) 1 applic OU Q4HR PRN PRN Reason: Dry Eye(s) Ondansetron HCl (Zofran) 4 mg IV Q8H PRN PRN Reason: Nausea And Vomiting Promethazine HCl (Phenergan) 25 mg AK Q6H PRN PRN Reason: N/V IF NPO AND NO IV ACCESS Simple Syrup (Simple Syrup) 15 ml FEEDTUBE PRN PRN PRN Reason: Hypoglycemia Last Admin: 04/03/19 00:55 Dose: 15 ml Documented by: Simple Syrup (Simple Syrup) 30 ml FEEDTUBE PRN PRN PRN Reason: Hypoglycemia Sodium Bicarbonate (Sodium Bicarbonate) 325 mg FEEDTUBE PRN PRN PRN Reason: For Clogged Feeding Tube Sodium Chloride (Sodium Chloride Flush Syringe 10 Ml) 10 ml IV BID [facility] Last Admin: 04/05/19 11:47 Dose: 10 ml Documented by: Sodium Chloride (Sodium Chloride Flush Syringe 10 Ml) 10 ml IV PRN PRN PRN Reason: LINE FLUSH Review of Systems ROS unobtainable: due to endotracheal tube Exam Vital Signs Temp Pulse Resp BP 98.4 F 131 H 18 69/49 03/19/19 12:47 03/19/19 12:47 03/19/19 12:47 03/19/19 12:47 - General physical appearance Positive: no distress, no pain, other (awake) - Neck Positive: no masses, trachea midline, no venous distension, other (no pulsation seen. ) - Respiratory Positive: normal expansion, normal respiratory effort, other (equal BS) - Cardiovascular Rhythm: irregularly irregular - Abdomen Abdomen: Present: soft. Absent: tender, distended, guarding, rigid, surgical scars - Integumentary no rash, no growths, no abnormal pigmentation - Psychiatric Psychiatric: cooperative Results - Labs 04/05/19 03:30 04/05/19 03:30 Abnormal lab results 03/30/19 04/05/19 04/05/19 Range/Units 07:04 03:30 03:30 RBC 2.09 L (3.65-5.03) M/mm3 Hgb 6.7 L (10.1-14.3) gm/dl Hct 20.1 L (30.3-42.9) % RDW 16.6 H (13.2-15.2) % [place] % (Auto) 12.6 H (0.0-7.3) % Eos % (Auto) 6.2 H (0.0-4.3) % [place] # 1.0 H (0.0-0.8) K/mm3 Eos # 0.5 H (0.0-0.4) K/mm3 Creatinine 0.4 L (0.7-1.2) mg/dL POC Glucose (70-105) Calcium 7.6 L (8.4-10.2) mg/dL Crossmatch See Detail 04/05/19 04/05/19 Range/Units 06:51 13:07 RBC (3.65-5.03) M/mm3 Hgb (10.1-14.3) gm/dl Hct (30.3-42.9) % RDW (13.2-15.2) % [place] % (Auto) (0.0-7.3) % Eos % (Auto) (0.0-4.3) % [place] # (0.0-0.8) K/mm3 Eos # (0.0-0.4) K/mm3 Creatinine (0.7-1.2) mg/dL POC Glucose 106 H (70-105) Calcium (8.4-10.2) mg/dL Crossmatch See Detail Diabetes panel 04/05/19 Range/Units 03:30 Sodium 140 (137-145) mmol/L Potassium 3.8 (3.6-5.0) mmol/L Chloride 105.7 (98-107) mmol/L Carbon Dioxide 29 (22-30) mmol/L BUN 14 (7-17) mg/dL Creatinine 0.4 L (0.7-1.2) mg/dL Glucose 98 (65-100) mg/dL Calcium 7.6 L (8.4-10.2) mg/dL Calcium panel 04/05/19 Range/Units 03:30 Calcium 7.6 L (8.4-10.2) mg/dL Phosphorus 2.70 D (2.5-4.5) mg/dL Pituitary panel 04/05/19 Range/Units 03:30 Sodium 140 (137-145) mmol/L Potassium 3.8 (3.6-5.0) mmol/L Chloride 105.7 (98-107) mmol/L Carbon Dioxide 29 (22-30) mmol/L BUN 14 (7-17) mg/dL Creatinine 0.4 L (0.7-1.2) mg/dL Glucose 98 (65-100) mg/dL Calcium 7.6 L (8.4-10.2) mg/dL Adrenal panel 04/05/19 Range/Units 03:30 Sodium 140 (137-145) mmol/L Potassium 3.8 (3.6-5.0) mmol/L Chloride 105.7 (98-107) mmol/L Carbon Dioxide 29 (22-30) mmol/L BUN 14 (7-17) mg/dL Creatinine 0.4 L (0.7-1.2) mg/dL Glucose 98 (65-100) mg/dL Calcium 7.6 L (8.4-10.2) mg/dL - Imaging CT scan - abdomen: report reviewed, image reviewed CT scan - chest: report reviewed, image reviewed CT scan - pelvis: report reviewed, image reviewed Assessment and Plan - Patient Problems (1) Acute respiratory failure Current Visit: Yes Status: Acute Qualifiers: Respiratory failure complication: unspecified whether with hypoxia or hypercapnia Qualified Code(s): J96.00 - Acute respiratory failure, unspecified whether with hypoxia or hypercapnia Plan to address problem: Pt stable. Discussed situation with daughter, Caterina. As the patient is showing signs of improvement, she would like to continue with aggressive care. I don't think that is unreasonable. We discussed the procedure, risks, benefits of the tracheostomy and PEG tube placement. All questions were answered. I will get a formal consent at a later time. I will go ahead and begin making arrangements for a bedside tracheostomy and PEG tube placement. I will provide an update when we have a day and a time. Please call with any questions. Time=30min
[2019-04-05 18:42] LABS: Amorphous Crystals,Urine Few; Bilirubin,Urine NEG (Negative); Blood,Urine NEG (Negative); Color,Urine Amber (Yellow); Granular Casts,Urine 43 /LPF; Mucus,Urine FEW /HPF; Urobilinogen,Urine < 2.0 mg/dL (<2.0)
[2019-04-05 18:44] LABS: WBC,Urine < 1.0 /HPF (0.0-6.0)
[2019-04-06] MEDS: HumaLOG SUB-Q SCH ×3 (00:26→20:36)
[2019-04-06] MEDS: DUONEB *Not for PRN Use IH SCH ×4 (01:25→19:53)
--- NOTE | 2019-04-06 05:24 | Hem/Onc Progress Note ---
Assessment and Plan h/o low plt - at admission DVT was on home hospice 1. h/o Thrombocytopenia. This may be secondary to medications. The platelets were even low at admission. The differential includes infection versus a marrow issue. At this time, platelets are adequate, we will follow the trend. Because of clinical suspicion, HIT test has been ordered. Argatroban ordered. Heparin has been stopped. plt have improved 2. h/o Pneumonia. 3. h/o Encephalopathy. 4. Respiratory failure, on vent. 5. h/o Renal impairment. 6. Deep vein thrombosis. Her immobilization may have a role. Central line also may have a role. Acute Right common femoral DVT and right IJ vein thrombosi s the patient was on Argatroban. IVC filter may prevent the leg DVT from progression to PE; however, for IJ DVT, we have limited options. The patient was on home hospice as per notes. Atrial fibrillation, she was on medications. History of anemia, deficiency investigations. Leukocytosis, likely reactive. B12 level more than 2000, serum iron 32. anemia - IV iron trial 04/06/2019 anemia - off argatroban - HIT test negative PRBC it appears that the pt is possibly bleeding - based on hb fall - hence anticoag has been held option of IVC filter if hb improves - ? oral anticoag an option - eliquis vs xarelto there is a question about trach peg - seen by sx team for same tried to call junior daughter - with the tel number in the system - via lacquer dipping machine operator - disconnected number - Patient Problems (1) Thrombocytopenia Current Visit: Yes Status: Acute Subjective Date of service: 04/06/19 Principal diagnosis: anemia - dvt Interval history: awake - follows commands Objective - Exam Narrative Exam: Pain - none - on vent General appearance intubated Performance status - complete help needed Eyes - no icterus ENT no thrush LNs cervical not palpable Neck - no LNs/mass Respiratory Normal Breath sounds - CTA anteriorly CVS S1 S2 + Extremities normal temperature - flaccid General GI Soft - distended Rectal deferred female - deferred Skin warm Musculoskeletal not able to evaluate Neurologically - on vent -LIFTS RT HAND ON COMMAND - Constitutional Vitals: Last Vital Signs Temp 97.9 F 04/06/19 04:00 Pulse 111 H 04/06/19 05:00 Resp 24 04/06/19 05:00 BP 129/70 04/06/19 05:00 Pulse Ox 96 04/06/19 05:00 - Labs Lab Results: Laboratory Results - last 24 hr 03/30/19 04/05/19 04/05/19 07:04 03:30 05:43 [place] % (Auto) 12.6 H Eos % (Auto) 6.2 H [place] # 1.0 H Eos # 0.5 H Baso # 0.0 Add Manual Diff Complete Total Counted 100 Seg Neutrophils % 61.5 Seg Neuts % (Manual) 69.0 Band Neutrophils % 0 Lymphocytes % (Manual) 26.0 Reactive Lymphs % (Man) 0 Monocytes % (Manual) 5.0 Eosinophils % (Manual) 0 Basophils % (Manual) 0 Metamyelocytes % 0 Myelocytes % 0 Promyelocytes % 0 Blast Cells % 0 Nucleated RBC % Not Reportable Seg Neutrophils # 4.8 Seg Neutrophils # Man 5.4 Band Neutrophils # 0.0 Lymphocytes # (Manual) 2.0 Abs React Lymphs (Man) 0.0 Monocytes # (Manual) 0.4 Eosinophils # (Manual) 0.0 Basophils # (Manual) 0.0 Metamyelocytes # 0.0 Myelocytes # 0.0 Promyelocytes # 0.0 Blast Cells # 0.0 WBC Morphology Not Reportable Hypersegmented Neuts Not Reportable Hyposegmented Neuts Not Reportable Hypogranular Neuts Not Reportable Smudge Cells Not Reportable Toxic Granulation Not Reportable Toxic Vacuolation Not Reportable Dohle Bodies Not Reportable Pelger-Huet Anomaly Not Reportable Judy Rods Not Reportable Platelet Estimate Consistent w auto Clumped Platelets Not Reportable Plt Clumps, EDTA Not Reportable Large Platelets Not Reportable Giant Platelets Not Reportable Platelet Satelliting Not Reportable Plt Morphology Comment Not Reportable RBC Morphology Not Reportable Dimorphic RBCs Not Reportable Polychromasia Not Reportable Hypochromasia Not Reportable Poikilocytosis 2+ Anisocytosis 2+ Microcytosis Not Reportable Macrocytosis Not Reportable Spherocytes Not Reportable Pappenheimer Bodies Not Reportable Sickle Cells Not Reportable Target Cells Not Reportable Tear Drop Cells Not Reportable Ovalocytes Not Reportable Helmet Cells Not Reportable [place] Bodies Not Reportable Dysart Rings Not Reportable Loren Cells Not Reportable Bite Cells Not Reportable Crenated Cell Not Reportable Elliptocytes Not Reportable Acanthocytes (Spur) Not Reportable Rouleaux Not Reportable Hemoglobin C Crystals Not Reportable Schistocytes Not Reportable Malaria parasites Not Reportable Adrian Bodies Not Reportable Hem Pathologist Commnt No POC Glucose 87 Urine Color Urine Turbidity Urine pH Ur Specific [place] Urine Protein Urine Glucose (UA) Urine Ketones Urine Blood Urine Nitrite Urine Bilirubin Urine Urobilinogen Ur Leukocyte Esterase Urine WBC (Auto) Urine RBC (Auto) U Epithel Cells (Auto) Amorphous Crystals Granular Casts Urine Mucus Blood Type Antibody Screen Crossmatch See Detail 04/05/19 04/05/19 04/05/19 06:51 13:07 13:23 [place] % (Auto) Eos % (Auto) [place] # Eos # Baso # Add Manual Diff Total Counted Seg Neutrophils % Seg Neuts % (Manual) Band Neutrophils % Lymphocytes % (Manual) Reactive Lymphs % (Man) Monocytes % (Manual) Eosinophils % (Manual) Basophils % (Manual) Metamyelocytes % Myelocytes % Promyelocytes % Blast Cells % Nucleated RBC % Seg Neutrophils # Seg Neutrophils # Man Band Neutrophils # Lymphocytes # (Manual) Abs React Lymphs (Man) Monocytes # (Manual) Eosinophils # (Manual) Basophils # (Manual) Metamyelocytes # Myelocytes # Promyelocytes # Blast Cells # WBC Morphology Hypersegmented Neuts Hyposegmented Neuts Hypogranular Neuts Smudge Cells Toxic Granulation Toxic Vacuolation Dohle Bodies Pelger-Huet Anomaly Judy Rods Platelet Estimate Clumped Platelets Plt Clumps, EDTA Large Platelets Giant Platelets Platelet Satelliting Plt Morphology Comment RBC Morphology Dimorphic RBCs Polychromasia Hypochromasia Poikilocytosis Anisocytosis Microcytosis Macrocytosis Spherocytes Pappenheimer Bodies Sickle Cells Target Cells Tear Drop Cells Ovalocytes Helmet Cells [place] Bodies Dysart Rings Loren Cells Bite Cells Crenated Cell Elliptocytes Acanthocytes (Spur) Rouleaux Hemoglobin C Crystals Schistocytes Malaria parasites Adrian Bodies Hem Pathologist Commnt POC Glucose 106 H Urine Color Beatrice Urine Turbidity Cloudy Urine pH 5.0 Ur Specific [place] 1.023 Urine Protein 100 mg/dl Urine Glucose (UA) Neg Urine Ketones Neg Urine Blood Neg Urine Nitrite Neg Urine Bilirubin Neg Urine Urobilinogen < 2.0 Ur Leukocyte Esterase Neg Urine WBC (Auto) < 1.0 Urine RBC (Auto) 9.0 U Epithel Cells (Auto) 2.0 Amorphous Crystals Few Granular Casts 43 Urine Mucus Few Blood Type O POSITIVE Antibody Screen Negative Crossmatch See Detail 04/05/19 04/05/19 04/05/19 19:09 21:35 23:50 [place] % (Auto) Eos % (Auto) [place] # Eos # Baso # Add Manual Diff Total Counted Seg Neutrophils % Seg Neuts % (Manual) Band Neutrophils % Lymphocytes % (Manual) Reactive Lymphs % (Man) Monocytes % (Manual) Eosinophils % (Manual) Basophils % (Manual) Metamyelocytes % Myelocytes % Promyelocytes % Blast Cells % Nucleated RBC % Seg Neutrophils # Seg Neutrophils # Man Band Neutrophils # Lymphocytes # (Manual) Abs React Lymphs (Man) Monocytes # (Manual) Eosinophils # (Manual) Basophils # (Manual) Metamyelocytes # Myelocytes # Promyelocytes # Blast Cells # WBC Morphology Hypersegmented Neuts Hyposegmented Neuts Hypogranular Neuts Smudge Cells Toxic Granulation Toxic Vacuolation Dohle Bodies Pelger-Huet Anomaly Judy Rods Platelet Estimate Clumped Platelets Plt Clumps, EDTA Large Platelets Giant Platelets Platelet Satelliting Plt Morphology Comment RBC Morphology Dimorphic RBCs Polychromasia Hypochromasia Poikilocytosis Anisocytosis Microcytosis Macrocytosis Spherocytes Pappenheimer Bodies Sickle Cells Target Cells Tear Drop Cells Ovalocytes Helmet Cells [place] Bodies Dysart Rings Loren Cells Bite Cells Crenated Cell Elliptocytes Acanthocytes (Spur) Rouleaux Hemoglobin C Crystals Schistocytes Malaria parasites Adrian Bodies Hem Pathologist Commnt POC Glucose 90 105 109 H Urine Color Urine Turbidity Urine pH Ur Specific [place] Urine Protein Urine Glucose (UA) Urine Ketones Urine Blood Urine Nitrite Urine Bilirubin Urine Urobilinogen Ur Leukocyte Esterase Urine WBC (Auto) Urine RBC (Auto) U Epithel Cells (Auto) Amorphous Crystals Granular Casts Urine Mucus Blood Type Antibody Screen Crossmatch 04/06/19 04:15 [place] % (Auto) Eos % (Auto) [place] # Eos # Baso # Add Manual Diff Total Counted Seg Neutrophils % Seg Neuts % (Manual) Band Neutrophils % Lymphocytes % (Manual) Reactive Lymphs % (Man) Monocytes % (Manual) Eosinophils % (Manual) Basophils % (Manual) Metamyelocytes % Myelocytes % Promyelocytes % Blast Cells % Nucleated RBC % Seg Neutrophils # Seg Neutrophils # Man Band Neutrophils # Lymphocytes # (Manual) Abs React Lymphs (Man) Monocytes # (Manual) Eosinophils # (Manual) Basophils # (Manual) Metamyelocytes # Myelocytes # Promyelocytes # Blast Cells # WBC Morphology Hypersegmented Neuts Hyposegmented Neuts Hypogranular Neuts Smudge Cells Toxic Granulation Toxic Vacuolation Dohle Bodies Pelger-Huet Anomaly Judy Rods Platelet Estimate Clumped Platelets Plt Clumps, EDTA Large Platelets Giant Platelets Platelet Satelliting Plt Morphology Comment RBC Morphology Dimorphic RBCs Polychromasia Hypochromasia Poikilocytosis Anisocytosis Microcytosis Macrocytosis Spherocytes Pappenheimer Bodies Sickle Cells Target Cells Tear Drop Cells Ovalocytes Helmet Cells [place] Bodies Dysart Rings Loren Cells Bite Cells Crenated Cell Elliptocytes Acanthocytes (Spur) Rouleaux Hemoglobin C Crystals Schistocytes Malaria parasites Adrian Bodies Hem Pathologist Commnt POC Glucose 102 Urine Color Urine Turbidity Urine pH Ur Specific [place] Urine Protein Urine Glucose (UA) Urine Ketones Urine Blood Urine Nitrite Urine Bilirubin Urine Urobilinogen Ur Leukocyte Esterase Urine WBC (Auto) Urine RBC (Auto) U Epithel Cells (Auto) Amorphous Crystals Granular Casts Urine Mucus Blood Type Antibody Screen Crossmatch Medications & Allergies - Medications Allergies/Adverse Reactions: Allergies No Known Allergies Allergy (Unverified 03/19/19 13:11) Home Medications: Home Medications Medication Instructions Recorded Confirmed Last Taken Type Aspirin EC 81 mg PO DAILY 03/20/19 03/20/19 Unknown History Divalproex Sodium 375 mg PO Q8H PRN 03/20/19 03/20/19 Unknown History Metoprolol [Lopressor TAB] 50 mg PO BID 03/20/19 03/20/19 Unknown History Sennosides/Docusate Sodium [Senna 8.6 mg PO BID PRN 03/20/19 03/20/19 Unknown History Plus Tablet] levETIRAcetam [Keppra TAB] 500 mg PO BID 03/20/19 03/20/19 Unknown History Active Medications: Generic Name Dose Route Start Last Admin Trade Name Freq PRN Reason Stop Dose Admin Acetaminophen 650 mg 03/24/19 23:48 04/05/19 23:51 Tylenol FEEDTUBE 650 mg Q6H PRN Administration Fever >101 Albuterol 2.5 mg 03/19/19 23:58 Proventil IH Q3HRT PRN Shortness Of Breath Albuterol/Ipratropium 1 ampul 03/20/19 02:00 04/06/19 01:25 Duoneb *Not For Prn Use* IH 1 ampul Q6HRT YUSUF Administration Amiodarone HCl 200 mg 03/22/19 22:00 04/05/19 22:09 Cordarone PO 200 mg BID YUSUF Administration Lipase/Protease/Amylase 1 each 03/22/19 16:03 Pancretobi Sargent 10,500 Unit FEEDTUBE PRN PRN For Clogged Feeding Tube Aspirin 81 mg 03/21/19 10:00 04/05/19 09:52 Baby Aspirin PO 81 mg DAILY YUSUF Administration Budesonide 0.5 mg 03/19/19 23:45 04/05/19 20:08 Pulmicort IH 0.5 mg Q12HRT YUSUF Administration Dextrose 50 ml 03/19/19 23:58 03/21/19 16:29 D50w (25gm) Syringe IV 50 ml PRN PRN Administration Hypoglycemia Famotidine 20 mg 03/22/19 10:00 04/05/19 22:09 Pepcid PO 20 mg BID YUSUF Administration Fentanyl 50 mcg 03/19/19 12:45 03/19/19 13:26 Sublimaze IV 50 mcg Q10MIN PRN Administration ANALGESIA Hydromorphone HCl 0.5 mg 03/19/19 23:58 Dilaudid IV Q3H PRN Pain , Severe (7-10) Hydrophilic Ointment 1 applic 03/19/19 12:45 Vaseline Lip Therapy TP Q2HR PRN Dry Lips Fentanyl Citrate 2,000 mcg in 100 mls @ 2.835 mls/hr 03/19/19 14:00 03/21/19 11:33 Fentanyl Drip Premix IV 0 mcg/kg/hr TITR YUSUF 0 mls/hr Titration Protocol 1 MCG/KG/HR Norepinephrine 4 mg in 250 mls @ 7.5 mls/hr 03/25/19 11:00 03/30/19 23:45 Levophed Drip 4 Mg/Ns 250 Ml IV 0 mcg/min TITR YUSUF 0 mls/hr Titration Protocol 2 MCG/MIN Insulin Human Lispro 0 unit 03/20/19 00:00 04/06/19 00:26 Humalog SUB-Q Not Given Q6HR [facility] Protocol Metoclopramide HCl 5 mg 03/20/19 00:12 Reglan IV Q6H PRN Nausea And Vomiting Metoprolol Tartrate 2.5 mg 03/23/19 13:17 03/24/19 21:20 Lopressor IV 2.5 mg Q2HR PRN Administration HR >150 Multi-Ingred Cream/Lotion/Oil/Oint 1 applic 03/19/19 12:45 Artificial Tears Ophth Oint OU Q4HR PRN Dry Eye(s) Ondansetron HCl 4 mg 03/19/19 23:58 Zofran IV Q8H PRN Nausea And Vomiting Promethazine HCl 25 mg 03/19/19 23:58 Phenergan VA Q6H PRN N/V IF NPO AND NO IV ACCESS Simple Syrup 15 ml 03/22/19 16:03 04/03/19 00:55 Simple Syrup FEEDTUBE 15 ml PRN PRN Administration Hypoglycemia Simple Syrup 30 ml 03/22/19 16:03 Simple Syrup FEEDTUBE PRN PRN Hypoglycemia Sodium Bicarbonate 325 mg 03/22/19 16:03 Sodium Bicarbonate FEEDTUBE PRN PRN For Clogged Feeding Tube Sodium Chloride 10 ml 03/20/19 10:00 04/05/19 22:11 Sodium Chloride Flush Syringe 10 Ml IV 10 ml BID YUSUF Administration Sodium Chloride 10 ml 03/19/19 23:58 Sodium Chloride Flush Syringe 10 Ml IV PRN PRN LINE FLUSH
[2019-04-06] MEDS: PULMICORT IH SCH ×2 (08:05→19:53)
[2019-04-06 09:59] LABS: Hematocrit 23.5 % (30.3-42.9); Hemoglobin 8.4 gm/dl (10.1-14.3); Mean Corpuscular HGB Conc 36 % (30-34); Mean Corpuscular Volume 92 fl (79-97); Platelet Count 382 K/mm3 (140-440); Red Blood Count 2.56 M/mm3 (3.65-5.03); Red Cell Distribution Width 17.9 % (13.2-15.2)
--- NOTE | 2019-04-06 11:25 | Progress Note ---
Assessment and Plan Acute metabolic encephalopathy, - cont supportive care, CT head negative - patient now appears at her baseline per the family Acute hypoxic respiratory s/p ETT placement: consulted CCM, difficult to wean off vent, scheduled nebs - surgery consulted for trach and PEG Severe Anemia: Drop in H/H - status post total 3 units of PRBC transfusion - Closely monitor and transfuse as needed Digoxin toxicity; supratherapeutic level, off digoxin Acute Right common femoral DVT and right IJ vein thrombosis - argatroban drip dced due to severe anemia[requiring transfusion] - Anticoagulation decision per hematology - plan for IVC filter by IR Sepsis due to aspiration pneumonia; - source pneumonia but having persistent fever. UA negative. Blood culture 03/19/2019 no growth. Urine culture 03/19/2019 negative. - ID following, Has completed full course for pneumonia. abx stopped on 04/04 - monitor fever curve Septic shock: off pressor, weaned off, BP now stable Paroxysmal Atrial fib, Now NSR - on amioderone, metoprolol HA (acute kidney injury), atn and vasomotor nephrology, poa: IV fluids for now, Nephrology consulted - renal function improved Anemia, due to CD vs other cause - ordered stool for occult blood, iron study - transfused one unit PRBC RUL Aspiration pneumonia: treated with abx Hypernatremia: improved with Iv fluid Hypomagnesemia: replete and follow as needed Elevated troponin level/ NSTEMI II; consulted Cardiology, consevative mx DVT prophylaxis DNR code status CCT 34 minutes Brief History Patient is a 73 yo woman without a clear past medical history due to patient presentation of being Altered requiring intubation upon admission. Upon arrival to the emergency room, the patient is obtunded, breathing without difficulty, desaturating, without a gag reflex. Therefore, patient placed on nasal cannula at 15 L/m, and then intubated without difficulty. Patient started empirically on the sepsis pathway, with broad-spectrum antibiotics, aggressive IV fluids, and post intubation sedation package. She is difficult to wean off from vent, s/p bronch. venous doppler showed right internal jugular vein thrombus associated with right internal jugular vein triple lumen catheter and right common femoral vein DVT. Patient was on anticoagulation however had significant anemia requiring blood transfusion as argatroban discontinued. Patient is unable to wean with poor prognosis, family requested DO NOT RESUSCITATE status And initially decided hospice, however they changed their mind and now considering trach and PEG and SNF placement. * pCXR FINDINGS: SUPPORT DEVICES: Endotracheal tube is in place in good position above the liam. HEART / MEDIASTINUM: No significant abnormality. LUNGS / PLEURA: There is moderate bibasilar lung consolidation and slight right upper lobe consolidation as well. No edema or effusions. No pneumothorax. ADDITIONAL FINDINGS: No significant additional findings. IMPRESSION: 1. Endotracheal tube in good position. * CT head without contrast IMPRESSION: Encephalomalacia in the entire right cerebral hemisphere Volume loss in the left cerebral hemisphere, n0 acute parenchymal lesion in the brain. Hospitalist Physical Gen: critcally ill, thin frail, intubated, HEENT: NCAT, EOMI, PERRL, OP Clear Neck: supple, no adenopathy, no thyromegaly, no JVD CVS/Heart: RRR, normal S1S2, pulses present bilaterally Chest/Lungs: CTA B, Symmetrical chest expansion, good air entry bilaterally GI/Abdomen: soft, NTND, good bowel sounds, no guarding or rebound /Bladder: no suprapubic tenderness, no CVA or paraspinal tenderness Extermity/Skin: no c/c/e, no obvious rash, + edema MSK: no joint swelling Neuro: intubated Psych: intubated Subjective Date of service: 04/06/19 Principal diagnosis: anemia - DVT Interval history: Pt seen and examined remained intubated, off pressor discussed with family and RN at the bedside surgery consulted for trach and PEG Objective - Constitutional Vitals: Vital Signs - 12hr 04/06/19 04/06/19 04/06/19 00:00 00:22 01:00 Temperature 102.3 F H Pulse Rate 119 H 118 H 115 H Pulse Rate [ Anterior Bilateral Throughout] Pulse Rate [ 118 H From Monitor] Respiratory 22 26 H Rate Respiratory Rate [Anterior Bilateral Throughout] Blood Pressure 142/62 142/62 126/51 O2 Sat by Pulse 96 97 96 Oximetry 04/06/19 04/06/19 04/06/19 01:25 02:00 03:00 Temperature Pulse Rate 110 H 112 H Pulse Rate [ 118 H Anterior Bilateral Throughout] Pulse Rate [ From Monitor] Respiratory 16 17 Rate Respiratory 24 Rate [Anterior Bilateral Throughout] Blood Pressure 113/50 102/46 O2 Sat by Pulse 95 96 Oximetry 04/06/19 04/06/19 04/06/19 04:00 04:37 05:00 Temperature 97.9 F Pulse Rate 110 H 108 H 111 H Pulse Rate [ Anterior Bilateral Throughout] Pulse Rate [ 110 H From Monitor] Respiratory 25 H 24 Rate Respiratory Rate [Anterior Bilateral Throughout] Blood Pressure 115/63 115/63 129/70 O2 Sat by Pulse 98 98 96 Oximetry 04/06/19 04/06/19 04/06/19 05:37 06:00 07:00 Temperature 97.9 F Pulse Rate 110 H 109 H Pulse Rate [ Anterior Bilateral Throughout] Pulse Rate [ From Monitor] Respiratory 23 22 Rate Respiratory Rate [Anterior Bilateral Throughout] Blood Pressure 138/68 144/66 O2 Sat by Pulse 95 96 Oximetry 04/06/19 04/06/19 04/06/19 08:00 08:05 08:15 Temperature 99.1 F Pulse Rate 104 H 113 H Pulse Rate [ 113 H Anterior Bilateral Throughout] Pulse Rate [ From Monitor] Respiratory 14 30 H Rate Respiratory 24 Rate [Anterior Bilateral Throughout] Blood Pressure 140/72 140/72 O2 Sat by Pulse 100 97 Oximetry - Labs CBC & Chem 7: 04/09/19 09:15 04/07/19 06:50 Labs: Abnormal lab results 04/05/19 04/05/19 04/05/19 Range/Units 06:51 13:07 23:50 RBC (3.65-5.03) M/mm3 Hgb (10.1-14.3) gm/dl Hct (30.3-42.9) % MCH (28-32) pg MCHC (30-34) % RDW (13.2-15.2) % POC Glucose 106 H 109 H (70-105) Crossmatch See Detail 04/06/19 Range/Units 09:36 RBC 2.56 L (3.65-5.03) M/mm3 Hgb 8.4 L (10.1-14.3) gm/dl Hct 23.5 L (30.3-42.9) % MCH 33 H (28-32) pg MCHC 36 H (30-34) % RDW 17.9 H (13.2-15.2) % POC Glucose (70-105) Crossmatch
--- NOTE | 2019-04-06 13:37 | Progress Note ---
Assessment and Plan Imp: 1. Aspiration pneumonitis 2. Sepsis 3. Thrombocytopenia 2/2 above, better 4. Acute respiratory failure, hypoxia 5. HA/lactic acidosis, better 6. Hx of CVA 7. Acute DVT Rec: 1. ABX stopped 04/04; fever curve better but spiked again this AM; repeat blood and urine cultures; fever could be due to extensive clots; f/u GNRs in sputum but this may be colonization; ID is following 2. D/w daughter who wants continued aggressive care; recommend Trach/PEG, she agrees; surgery consulted 3. TFs 4. CXR unchanged; gently diurese prn; replete elytes prn 5. Monitor H/H; cannot anticoagulate for now so recommend IVC filter, daughter agrees 6. Prognosis remains guarded to poor; needs LTAC after trach/peg CCT 31 minutes Plan of care reviewed w/ patient's daughter Caterina by phone on 04/05/19, she understands/agrees; discussed with patient's today and answered his questions Subjective Date of service: 04/06/19 Principal diagnosis: anemia - DVT Interval history: No events. Awake, alert, moves R hand/squeezes on command, and tracks w/ eyes. No obvious complaints although hx is difficult. No bleeding. + Fever still this AM. Breathed 50x per minute on PSV 20/6. Active Medications Acetaminophen (Tylenol) 650 mg FEEDTUBE Q6H PRN PRN Reason: Fever >101 Last Admin: 04/05/19 23:51 Dose: 650 mg Documented by: Albuterol (Proventil) 2.5 mg IH Q3HRT PRN PRN Reason: Shortness Of Breath Albuterol/Ipratropium (Duoneb *Not For Prn Use*) 1 ampul IH Q6HRT [facility] Last Admin: 04/06/19 15:17 Dose: 1 ampul Documented by: Amiodarone HCl (Cordarone) 200 mg PO BID [facility] Last Admin: 04/06/19 15:48 Dose: 200 mg Documented by: Lipase/Protease/Amylase (Naomi Sargent 10,500 Unit) 1 each FEEDTUBE PRN PRN PRN Reason: For Clogged Feeding Tube Aspirin (Baby Aspirin) 81 mg PO DAILY [facility] Last Admin: 04/06/19 15:48 Dose: 81 mg Documented by: Budesonide (Pulmicort) 0.5 mg IH Q12HRT [facility] Last Admin: 04/06/19 08:05 Dose: 0.5 mg Documented by: Dextrose (D50w (25gm) Syringe) 50 ml IV PRN PRN PRN Reason: Hypoglycemia Last Admin: 03/21/19 16:29 Dose: 50 ml Documented by: Famotidine (Pepcid) 20 mg PO BID [facility] Last Admin: 04/06/19 15:48 Dose: 20 mg Documented by: Fentanyl (Sublimaze) 50 mcg IV Q10MIN PRN PRN Reason: ANALGESIA Last Admin: 03/19/19 13:26 Dose: 50 mcg Documented by: Hydromorphone HCl (Dilaudid) 0.5 mg IV Q3H PRN PRN Reason: Pain , Severe (7-10) Hydrophilic Ointment (Vaseline Lip Therapy) 1 applic TP Q2HR PRN PRN Reason: Dry Lips Fentanyl Citrate (Fentanyl Drip Premix) 2,000 mcg in 100 mls @ 2.835 mls/hr IV TITR [facility]; Protocol Last Titration: 03/21/19 11:33 Dose: 0 mcg/kg/hr, 0 mls/hr Documented by: Norepinephrine (Levophed Drip 4 Mg/Ns 250 Ml) 4 mg in 250 mls @ 7.5 mls/hr IV TITR [facility]; Protocol Last Titration: 03/30/19 23:45 Dose: 0 mcg/min, 0 mls/hr Documented by: Insulin Human Lispro (Humalog) 0 unit SUB-Q Q6HR [facility]; Protocol Last Admin: 04/06/19 12:49 Dose: Not Given Documented by: Metoclopramide HCl (Reglan) 5 mg IV Q6H PRN PRN Reason: Nausea And Vomiting Metoprolol Tartrate (Lopressor) 2.5 mg IV Q2HR PRN PRN Reason: HR >150 Last Admin: 03/24/19 21:20 Dose: 2.5 mg Documented by: Multi-Ingred Cream/Lotion/Oil/Oint (Artificial Tears Ophth Oint) 1 applic OU Q4HR PRN PRN Reason: Dry Eye(s) Ondansetron HCl (Zofran) 4 mg IV Q8H PRN PRN Reason: Nausea And Vomiting Promethazine HCl (Phenergan) 25 mg MS Q6H PRN PRN Reason: N/V IF NPO AND NO IV ACCESS Simple Syrup (Simple Syrup) 15 ml FEEDTUBE PRN PRN PRN Reason: Hypoglycemia Last Admin: 04/03/19 00:55 Dose: 15 ml Documented by: Simple Syrup (Simple Syrup) 30 ml FEEDTUBE PRN PRN PRN Reason: Hypoglycemia Sodium Bicarbonate (Sodium Bicarbonate) 325 mg FEEDTUBE PRN PRN PRN Reason: For Clogged Feeding Tube Sodium Chloride (Sodium Chloride Flush Syringe 10 Ml) 10 ml IV BID [facility] Last Admin: 04/06/19 15:49 Dose: 10 ml Documented by: Sodium Chloride (Sodium Chloride Flush Syringe 10 Ml) 10 ml IV PRN PRN PRN Reason: LINE FLUSH Objective Vital Signs - 12hr 04/06/19 04/06/19 04/06/19 02:00 03:00 04:00 Temperature 97.9 F Pulse Rate 110 H 112 H 110 H Pulse Rate [ Anterior Bilateral Throughout] Pulse Rate [ 110 H From Monitor] Respiratory 16 17 25 H Rate Respiratory Rate [Anterior Bilateral Throughout] Blood Pressure 113/50 102/46 115/63 O2 Sat by Pulse 95 96 98 Oximetry 04/06/19 04/06/19 04/06/19 04:37 05:00 05:37 Temperature 97.9 F Pulse Rate 108 H 111 H Pulse Rate [ Anterior Bilateral Throughout] Pulse Rate [ From Monitor] Respiratory 24 Rate Respiratory Rate [Anterior Bilateral Throughout] Blood Pressure 115/63 129/70 O2 Sat by Pulse 98 96 Oximetry 04/06/19 04/06/19 04/06/19 06:00 07:00 08:00 Temperature 99.1 F Pulse Rate 110 H 109 H 104 H Pulse Rate [ Anterior Bilateral Throughout] Pulse Rate [ From Monitor] Respiratory 23 22 14 Rate Respiratory Rate [Anterior Bilateral Throughout] Blood Pressure 138/68 144/66 140/72 O2 Sat by Pulse 95 96 100 Oximetry 04/06/19 04/06/19 04/06/19 08:05 08:15 12:00 Temperature 97.9 F Pulse Rate 113 H 113 H Pulse Rate [ 113 H Anterior Bilateral Throughout] Pulse Rate [ From Monitor] Respiratory 30 H 9 L Rate Respiratory 24 Rate [Anterior Bilateral Throughout] Blood Pressure 140/72 158/79 O2 Sat by Pulse 97 97 Oximetry Constitutional: other (intubated, critically ill on ventilator, awake) Eyes: non-icteric ENT: other (intubated ) Neck: supple Effort: normal Ascultation: Bilateral: other (coarse BS bilaterally) Cardiovascular: other (tachy AF, no mrg) Gastrointestinal: normoactive bowel sounds, soft, non-tender, non-distended Integumentary: normal Extremities: anasarca Neurologic: other (awake, alert, L sided hemiparesis, contractures upper extremities) Psychiatric: mood appropriate, affect normal CBC and BMP: 04/06/19 09:36 04/05/19 03:30 ABG, PT/INR, D-dimer: ABG POC ABG pH 7.411 (7.35-7.45) 03/25/19 05:40 POC ABG pO2 83 (80-105) 03/25/19 05:40 POC ABG HCO3 17.7 (22-26 mml/L) 03/25/19 05:40 POC ABG Total CO2 19 (23-27mmol/L) 03/25/19 05:40 POC ABG O2 Sat 97 03/25/19 05:40 PT/INR, D-dimer PT 21.4 Sec. (12.2-14.9) H 03/27/19 14:04 INR 1.90 (0.87-1.13) H 03/27/19 14:04 Abnormal lab findings: Abnormal Labs 03/19/19 03/19/19 03/19/19 12:59 12:59 12:59 WBC RBC 3.44 L Hgb Hct MCV 101 H MCH 34 H MCHC RDW Plt Count 98 L Lymph % (Auto) [place] % (Auto) Eos % (Auto) Lymph # [place] # Eos # Seg Neutrophils % Seg Neuts % (Manual) 11.0 L Lymphocytes % (Manual) Monocytes % (Manual) 10.0 H Eosinophils % (Manual) Nucleated RBC % 1.0 H Seg Neutrophils # Seg Neutrophils # Man 0.6 L Lymphocytes # (Manual) Monocytes # (Manual) Eosinophils # (Manual) PT INR APTT POC ABG pH POC ABG pCO2 POC ABG pO2 Sodium 149 H Potassium Chloride 109.4 H Carbon Dioxide BUN 51 H Creatinine 3.2 H Glucose 58 L POC Glucose Lactic Acid 7.60 H* Calcium 7.8 L Phosphorus Magnesium 1.60 L Iron TIBC Ferritin Direct Bilirubin AST 75 H Total Creatine Kinase 1499 H Troponin T 0.109 H* Total Protein 5.2 L Albumin 1.7 L Prealbumin LDL Cholesterol Direct 22 L HDL Cholesterol 31 L Vitamin B12 TSH PTH Intact Urine Creatinine Urine Total Protein Vancomycin Trough Digoxin Salicylates Acetaminophen Crossmatch 03/19/19 03/19/19 03/19/19 12:59 12:59 14:48 WBC RBC Hgb Hct MCV MCH MCHC RDW Plt Count Lymph % (Auto) [place] % (Auto) Eos % (Auto) Lymph # [place] # Eos # Seg Neutrophils % Seg Neuts % (Manual) Lymphocytes % (Manual) Monocytes % (Manual) Eosinophils % (Manual) Nucleated RBC % Seg Neutrophils # Seg Neutrophils # Man Lymphocytes # (Manual) Monocytes # (Manual) Eosinophils # (Manual) PT INR APTT POC ABG pH POC ABG pCO2 POC ABG pO2 Sodium Potassium Chloride Carbon Dioxide BUN Creatinine Glucose POC Glucose 44 L Lactic Acid Calcium Phosphorus Magnesium Iron TIBC Ferritin Direct Bilirubin AST Total Creatine Kinase Troponin T Total Protein Albumin Prealbumin LDL Cholesterol Direct HDL Cholesterol Vitamin B12 TSH PTH Intact Urine Creatinine Urine Total Protein Vancomycin Trough Digoxin Salicylates < 0.3 L Acetaminophen < 5.0 L Crossmatch 03/19/19 03/19/19 03/19/19 15:33 15:52 16:26 WBC RBC Hgb Hct MCV MCH MCHC RDW Plt Count Lymph % (Auto) [place] % (Auto) Eos % (Auto) Lymph # [place] # Eos # Seg Neutrophils % Seg Neuts % (Manual) Lymphocytes % (Manual) Monocytes % (Manual) Eosinophils % (Manual) Nucleated RBC % Seg Neutrophils # Seg Neutrophils # Man Lymphocytes # (Manual) Monocytes # (Manual) Eosinophils # (Manual) PT INR APTT POC ABG pH POC ABG pCO2 POC ABG pO2 Sodium Potassium Chloride Carbon Dioxide BUN Creatinine Glucose POC Glucose 228 H 231 H Lactic Acid Calcium Phosphorus Magnesium Iron TIBC Ferritin Direct Bilirubin AST Total Creatine Kinase Troponin T Total Protein Albumin Prealbumin LDL Cholesterol Direct HDL Cholesterol Vitamin B12 TSH PTH Intact Urine Creatinine 31.8 H Urine Total Protein Vancomycin Trough Digoxin Salicylates Acetaminophen Crossmatch 03/19/19 03/19/19 03/19/19 16:38 17:14 18:43 WBC RBC Hgb Hct MCV MCH MCHC RDW Plt Count Lymph % (Auto) [place] % (Auto) Eos % (Auto) Lymph # [place] # Eos # Seg Neutrophils % Seg Neuts % (Manual) Lymphocytes % (Manual) Monocytes % (Manual) Eosinophils % (Manual) Nucleated RBC % Seg Neutrophils # Seg Neutrophils # Man Lymphocytes # (Manual) Monocytes # (Manual) Eosinophils # (Manual) PT INR APTT POC ABG pH 7.196 L POC ABG pCO2 30.8 L POC ABG pO2 Sodium Potassium Chloride Carbon Dioxide BUN Creatinine Glucose POC Glucose 235 H Lactic Acid 8.10 H* Calcium Phosphorus Magnesium Iron TIBC Ferritin Direct Bilirubin AST Total Creatine Kinase Troponin T Total Protein Albumin Prealbumin LDL Cholesterol Direct HDL Cholesterol Vitamin B12 TSH PTH Intact Urine Creatinine Urine Total Protein Vancomycin Trough Digoxin Salicylates Acetaminophen Crossmatch 03/19/19 03/19/19 03/19/19 18:52 20:00 20:56 WBC RBC Hgb Hct MCV MCH MCHC RDW Plt Count Lymph % (Auto) [place] % (Auto) Eos % (Auto) Lymph # [place] # Eos # Seg Neutrophils % Seg Neuts % (Manual) Lymphocytes % (Manual) Monocytes % (Manual) Eosinophils % (Manual) Nucleated RBC % Seg Neutrophils # Seg Neutrophils # Man Lymphocytes # (Manual) Monocytes # (Manual) Eosinophils # (Manual) PT INR APTT POC ABG pH POC ABG pCO2 POC ABG pO2 Sodium Potassium Chloride Carbon Dioxide BUN Creatinine Glucose POC Glucose 240 H 117 H Lactic Acid 5.90 H* Calcium Phosphorus Magnesium Iron TIBC Ferritin Direct Bilirubin AST Total Creatine Kinase Troponin T Total Protein Albumin Prealbumin LDL Cholesterol Direct HDL Cholesterol Vitamin B12 TSH PTH Intact Urine Creatinine Urine Total Protein Vancomycin Trough Digoxin Salicylates Acetaminophen Crossmatch 03/19/19 03/19/19 03/19/19 21:19 22:07 23:00 WBC RBC Hgb Hct MCV MCH MCHC RDW Plt Count Lymph % (Auto) [place] % (Auto) Eos % (Auto) Lymph # [place] # Eos # Seg Neutrophils % Seg Neuts % (Manual) Lymphocytes % (Manual) Monocytes % (Manual) Eosinophils % (Manual) Nucleated RBC % Seg Neutrophils # Seg Neutrophils # Man Lymphocytes # (Manual) Monocytes # (Manual) Eosinophils # (Manual) PT INR APTT POC ABG pH POC ABG pCO2 POC ABG pO2 Sodium Potassium Chloride Carbon Dioxide BUN Creatinine Glucose POC Glucose < 40 L 136 H Lactic Acid 6.10 H* Calcium Phosphorus Magnesium Iron TIBC Ferritin Direct Bilirubin AST Total Creatine Kinase Troponin T Total Protein Albumin Prealbumin LDL Cholesterol Direct HDL Cholesterol Vitamin B12 TSH PTH Intact Urine Creatinine Urine Total Protein Vancomycin Trough Digoxin Salicylates Acetaminophen Crossmatch 03/20/19 03/20/19 03/20/19 00:05 01:38 02:23 WBC RBC Hgb Hct MCV MCH MCHC RDW Plt Count Lymph % (Auto) [place] % (Auto) Eos % (Auto) Lymph # [place] # Eos # Seg Neutrophils % Seg Neuts % (Manual) Lymphocytes % (Manual) Monocytes % (Manual) Eosinophils % (Manual) Nucleated RBC % Seg Neutrophils # Seg Neutrophils # Man Lymphocytes # (Manual) Monocytes # (Manual) Eosinophils # (Manual) PT INR APTT POC ABG pH POC ABG pCO2 POC ABG pO2 Sodium Potassium Chloride Carbon Dioxide BUN Creatinine Glucose POC Glucose 68 L 153 H 127 H Lactic Acid Calcium Phosphorus Magnesium Iron TIBC Ferritin Direct Bilirubin AST Total Creatine Kinase Troponin T Total Protein Albumin Prealbumin LDL Cholesterol Direct HDL Cholesterol Vitamin B12 TSH PTH Intact Urine Creatinine Urine Total Protein Vancomycin Trough Digoxin Salicylates Acetaminophen Crossmatch 03/20/19 03/20/19 03/20/19 03:12 04:31 04:41 WBC RBC Hgb Hct MCV MCH MCHC RDW Plt Count Lymph % (Auto) [place] % (Auto) Eos % (Auto) Lymph # [place] # Eos # Seg Neutrophils % Seg Neuts % (Manual) Lymphocytes % (Manual) Monocytes % (Manual) Eosinophils % (Manual) Nucleated RBC % Seg Neutrophils # Seg Neutrophils # Man Lymphocytes # (Manual) Monocytes # (Manual) Eosinophils # (Manual) PT INR APTT POC ABG pH POC ABG pCO2 POC ABG pO2 53 L 65 L Sodium Potassium Chloride Carbon Dioxide BUN Creatinine Glucose POC Glucose 109 H Lactic Acid Calcium Phosphorus Magnesium Iron TIBC Ferritin Direct Bilirubin AST Total Creatine Kinase Troponin T Total Protein Albumin Prealbumin LDL Cholesterol Direct HDL Cholesterol Vitamin B12 TSH PTH Intact Urine Creatinine Urine Total Protein Vancomycin Trough Digoxin Salicylates Acetaminophen Crossmatch 03/20/19 03/20/19 03/20/19 05:50 07:29 08:14 WBC RBC Hgb Hct MCV MCH MCHC RDW Plt Count Lymph % (Auto) [place] % (Auto) Eos % (Auto) Lymph # [place] # Eos # Seg Neutrophils % Seg Neuts % (Manual) Lymphocytes % (Manual) Monocytes % (Manual) Eosinophils % (Manual) Nucleated RBC % Seg Neutrophils # Seg Neutrophils # Man Lymphocytes # (Manual) Monocytes # (Manual) Eosinophils # (Manual) PT INR APTT POC ABG pH POC ABG pCO2 POC ABG pO2 Sodium Potassium Chloride Carbon Dioxide BUN Creatinine Glucose 61 L POC Glucose 47 L 153 H Lactic Acid Calcium Phosphorus Magnesium 1.60 L Iron TIBC Ferritin Direct Bilirubin AST Total Creatine Kinase Troponin T Total Protein Albumin Prealbumin LDL Cholesterol Direct HDL Cholesterol Vitamin B12 TSH PTH Intact Urine Creatinine Urine Total Protein Vancomycin Trough Digoxin Salicylates Acetaminophen Crossmatch 03/20/19 03/20/19 03/20/19 08:23 08:23 10:59 WBC RBC Hgb Hct MCV MCH MCHC RDW Plt Count Lymph % (Auto) [place] % (Auto) Eos % (Auto) Lymph # [place] # Eos # Seg Neutrophils % Seg Neuts % (Manual) Lymphocytes % (Manual) Monocytes % (Manual) Eosinophils % (Manual) Nucleated RBC % Seg Neutrophils # Seg Neutrophils # Man Lymphocytes # (Manual) Monocytes # (Manual) Eosinophils # (Manual) PT INR APTT POC ABG pH POC ABG pCO2 POC ABG pO2 Sodium Potassium Chloride Carbon Dioxide BUN Creatinine Glucose 101 H POC Glucose 233 H Lactic Acid 9.70 H* Calcium Phosphorus Magnesium Iron TIBC Ferritin Direct Bilirubin AST Total Creatine Kinase Troponin T Total Protein Albumin Prealbumin 0.052 L LDL Cholesterol Direct HDL Cholesterol Vitamin B12 TSH PTH Intact Urine Creatinine Urine Total Protein Vancomycin Trough Digoxin Salicylates Acetaminophen Crossmatch 03/20/19 03/20/19 03/20/19 12:23 16:10 16:40 WBC RBC Hgb Hct MCV MCH MCHC RDW Plt Count Lymph % (Auto) [place] % (Auto) Eos % (Auto) Lymph # [place] # Eos # Seg Neutrophils % Seg Neuts % (Manual) Lymphocytes % (Manual) Monocytes % (Manual) Eosinophils % (Manual) Nucleated RBC % Seg Neutrophils # Seg Neutrophils # Man Lymphocytes # (Manual) Monocytes # (Manual) Eosinophils # (Manual) PT INR APTT POC ABG pH POC ABG pCO2 POC ABG pO2 Sodium Potassium Chloride Carbon Dioxide BUN Creatinine Glucose POC Glucose 135 H 171 H Lactic Acid Calcium Phosphorus Magnesium Iron TIBC Ferritin Direct Bilirubin AST Total Creatine Kinase Troponin T Total Protein Albumin Prealbumin LDL Cholesterol Direct HDL Cholesterol Vitamin B12 TSH PTH Intact Urine Creatinine 53.7 H Urine Total Protein 36 H Vancomycin Trough Digoxin Salicylates Acetaminophen Crossmatch 03/20/19 03/20/19 03/20/19 16:57 17:38 17:50 WBC RBC Hgb Hct MCV MCH MCHC RDW Plt Count Lymph % (Auto) [place] % (Auto) Eos % (Auto) Lymph # [place] # Eos # Seg Neutrophils % Seg Neuts % (Manual) Lymphocytes % (Manual) Monocytes % (Manual) Eosinophils % (Manual) Nucleated RBC % Seg Neutrophils # Seg Neutrophils # Man Lymphocytes # (Manual) Monocytes # (Manual) Eosinophils # (Manual) PT INR APTT POC ABG pH POC ABG pCO2 POC ABG pO2 Sodium Potassium Chloride Carbon Dioxide BUN Creatinine Glucose POC Glucose 152 H 147 H Lactic Acid 9.90 H* Calcium Phosphorus Magnesium Iron TIBC Ferritin Direct Bilirubin AST Total Creatine Kinase Troponin T Total Protein Albumin Prealbumin LDL Cholesterol Direct HDL Cholesterol Vitamin B12 TSH PTH Intact Urine Creatinine Urine Total Protein Vancomycin Trough Digoxin Salicylates Acetaminophen Crossmatch 03/20/19 03/20/19 03/20/19 17:50 17:50 17:50 WBC RBC 2.92 L Hgb 10.0 L Hct 29.3 L MCV 100 H MCH 34 H MCHC RDW Plt Count 81 L Lymph % (Auto) [place] % (Auto) Eos % (Auto) Lymph # [place] # Eos # Seg Neutrophils % Seg Neuts % (Manual) Lymphocytes % (Manual) Monocytes % (Manual) Eosinophils % (Manual) Nucleated RBC % Seg Neutrophils # Seg Neutrophils # Man Lymphocytes # (Manual) Monocytes # (Manual) Eosinophils # (Manual) PT INR APTT POC ABG pH POC ABG pCO2 POC ABG pO2 Sodium Potassium 2.8 L* D Chloride Carbon Dioxide BUN 30 H Creatinine 1.6 H Glucose 107 H POC Glucose Lactic Acid Calcium 6.9 L Phosphorus 2.00 L Magnesium Iron TIBC Ferritin Direct Bilirubin AST Total Creatine Kinase Troponin T Total Protein Albumin Prealbumin LDL Cholesterol Direct HDL Cholesterol Vitamin B12 TSH PTH Intact 171.6 H Urine Creatinine Urine Total Protein Vancomycin Trough Digoxin Salicylates Acetaminophen Crossmatch 03/20/19 03/21/19 03/21/19 21:12 00:30 04:12 WBC RBC Hgb Hct MCV MCH MCHC RDW Plt Count Lymph % (Auto) [place] % (Auto) Eos % (Auto) Lymph # [place] # Eos # Seg Neutrophils % Seg Neuts % (Manual) Lymphocytes % (Manual) Monocytes % (Manual) Eosinophils % (Manual) Nucleated RBC % Seg Neutrophils # Seg Neutrophils # Man Lymphocytes # (Manual) Monocytes # (Manual) Eosinophils # (Manual) PT INR APTT POC ABG pH POC ABG pCO2 POC ABG pO2 Sodium Potassium 3.0 L Chloride Carbon Dioxide 21 L BUN Creatinine 1.4 H Glucose 103 H POC Glucose Lactic Acid 8.70 H* 9.40 H* Calcium 6.8 L Phosphorus Magnesium Iron TIBC Ferritin Direct Bilirubin AST Total Creatine Kinase Troponin T Total Protein Albumin Prealbumin LDL Cholesterol Direct HDL Cholesterol Vitamin B12 TSH PTH Intact Urine Creatinine Urine Total Protein Vancomycin Trough Digoxin Salicylates Acetaminophen Crossmatch 03/21/19 03/21/19 03/21/19 04:12 04:12 04:43 WBC RBC 2.84 L Hgb 9.5 L Hct 28.3 L MCV 100 H MCH 33 H MCHC RDW Plt Count 79 L Lymph % (Auto) [place] % (Auto) Eos % (Auto) Lymph # [place] # Eos # Seg Neutrophils % Seg Neuts % (Manual) Lymphocytes % (Manual) Monocytes % (Manual) Eosinophils % (Manual) Nucleated RBC % Seg Neutrophils # Seg Neutrophils # Man Lymphocytes # (Manual) Monocytes # (Manual) Eosinophils # (Manual) PT INR APTT POC ABG pH 7.456 H POC ABG pCO2 POC ABG pO2 Sodium Potassium Chloride Carbon Dioxide BUN Creatinine Glucose POC Glucose Lactic Acid 9.50 H* Calcium Phosphorus Magnesium Iron TIBC Ferritin Direct Bilirubin AST Total Creatine Kinase Troponin T Total Protein Albumin Prealbumin LDL Cholesterol Direct HDL Cholesterol Vitamin B12 TSH PTH Intact Urine Creatinine Urine Total Protein Vancomycin Trough Digoxin Salicylates Acetaminophen Crossmatch 03/21/19 03/21/19 03/21/19 08:06 08:08 10:11 WBC RBC Hgb Hct MCV MCH MCHC RDW Plt Count Lymph % (Auto) [place] % (Auto) Eos % (Auto) Lymph # [place] # Eos # Seg Neutrophils % Seg Neuts % (Manual) Lymphocytes % (Manual) Monocytes % (Manual) Eosinophils % (Manual) Nucleated RBC % Seg Neutrophils # Seg Neutrophils # Man Lymphocytes # (Manual) Monocytes # (Manual) Eosinophils # (Manual) PT INR APTT POC ABG pH POC ABG pCO2 POC ABG pO2 Sodium Potassium 3.5 L Chloride Carbon Dioxide BUN 22 H Creatinine 1.3 H Glucose POC Glucose 64 L Lactic Acid 8.00 H* Calcium 7.0 L Phosphorus Magnesium Iron TIBC Ferritin Direct Bilirubin AST Total Creatine Kinase Troponin T Total Protein Albumin Prealbumin LDL Cholesterol Direct HDL Cholesterol Vitamin B12 TSH PTH Intact Urine Creatinine Urine Total Protein Vancomycin Trough Digoxin Salicylates Acetaminophen Crossmatch 03/21/19 03/21/19 03/21/19 11:17 12:17 13:37 WBC RBC Hgb Hct MCV MCH MCHC RDW Plt Count Lymph % (Auto) [place] % (Auto) Eos % (Auto) Lymph # [place] # Eos # Seg Neutrophils % Seg Neuts % (Manual) Lymphocytes % (Manual) Monocytes % (Manual) Eosinophils % (Manual) Nucleated RBC % Seg Neutrophils # Seg Neutrophils # Man Lymphocytes # (Manual) Monocytes # (Manual) Eosinophils # (Manual) PT INR APTT POC ABG pH POC ABG pCO2 POC ABG pO2 Sodium Potassium Chloride Carbon Dioxide BUN Creatinine Glucose POC Glucose 173 H 110 H Lactic Acid Calcium Phosphorus Magnesium Iron TIBC Ferritin Direct Bilirubin AST Total Creatine Kinase Troponin T 0.033 H D Total Protein Albumin Prealbumin LDL Cholesterol Direct HDL Cholesterol Vitamin B12 TSH PTH Intact Urine Creatinine Urine Total Protein Vancomycin Trough Digoxin Salicylates Acetaminophen Crossmatch 03/21/19 03/21/19 03/21/19 13:37 17:21 18:52 WBC RBC Hgb Hct MCV MCH MCHC RDW Plt Count Lymph % (Auto) [place] % (Auto) Eos % (Auto) Lymph # [place] # Eos # Seg Neutrophils % Seg Neuts % (Manual) Lymphocytes % (Manual) Monocytes % (Manual) Eosinophils % (Manual) Nucleated RBC % Seg Neutrophils # Seg Neutrophils # Man Lymphocytes # (Manual) Monocytes # (Manual) Eosinophils # (Manual) PT INR APTT POC ABG pH POC ABG pCO2 POC ABG pO2 Sodium Potassium Chloride Carbon Dioxide BUN Creatinine Glucose POC Glucose 130 H 107 H Lactic Acid 6.80 H* Calcium Phosphorus Magnesium Iron TIBC Ferritin Direct Bilirubin AST Total Creatine Kinase Troponin T Total Protein Albumin Prealbumin LDL Cholesterol Direct HDL Cholesterol Vitamin B12 TSH PTH Intact Urine Creatinine Urine Total Protein Vancomycin Trough Digoxin Salicylates Acetaminophen Crossmatch 03/21/19 03/21/19 03/21/19 20:20 22:08 23:05 WBC RBC Hgb Hct MCV MCH MCHC RDW Plt Count Lymph % (Auto) [place] % (Auto) Eos % (Auto) Lymph # [place] # Eos # Seg Neutrophils % Seg Neuts % (Manual) Lymphocytes % (Manual) Monocytes % (Manual) Eosinophils % (Manual) Nucleated RBC % Seg Neutrophils # Seg Neutrophils # Man Lymphocytes # (Manual) Monocytes # (Manual) Eosinophils # (Manual) PT INR APTT POC ABG pH POC ABG pCO2 POC ABG pO2 Sodium Potassium Chloride Carbon Dioxide BUN Creatinine Glucose POC Glucose 106 H 106 H Lactic Acid Calcium Phosphorus Magnesium Iron TIBC Ferritin Direct Bilirubin AST Total Creatine Kinase Troponin T 0.036 H Total Protein Albumin Prealbumin LDL Cholesterol Direct HDL Cholesterol Vitamin B12 TSH PTH Intact Urine Creatinine Urine Total Protein Vancomycin Trough Digoxin Salicylates Acetaminophen Crossmatch 03/21/19 03/21/19 03/22/19 23:05 23:05 00:14 WBC RBC Hgb Hct MCV MCH MCHC RDW Plt Count Lymph % (Auto) [place] % (Auto) Eos % (Auto) Lymph # [place] # Eos # Seg Neutrophils % Seg Neuts % (Manual) Lymphocytes % (Manual) Monocytes % (Manual) Eosinophils % (Manual) Nucleated RBC % Seg Neutrophils # Seg Neutrophils # Man Lymphocytes # (Manual) Monocytes # (Manual) Eosinophils # (Manual) PT INR APTT POC ABG pH POC ABG pCO2 POC ABG pO2 Sodium Potassium Chloride Carbon Dioxide BUN Creatinine Glucose POC Glucose 122 H 109 H Lactic Acid 7.00 H* Calcium Phosphorus Magnesium Iron TIBC Ferritin Direct Bilirubin AST Total Creatine Kinase Troponin T Total Protein Albumin Prealbumin LDL Cholesterol Direct HDL Cholesterol Vitamin B12 TSH PTH Intact Urine Creatinine Urine Total Protein Vancomycin Trough Digoxin Salicylates Acetaminophen Crossmatch 03/22/19 03/22/19 03/22/19 03:10 04:02 05:11 WBC RBC Hgb Hct MCV MCH MCHC RDW Plt Count Lymph % (Auto) [place] % (Auto) Eos % (Auto) Lymph # [place] # Eos # Seg Neutrophils % Seg Neuts % (Manual) Lymphocytes % (Manual) Monocytes % (Manual) Eosinophils % (Manual) Nucleated RBC % Seg Neutrophils # Seg Neutrophils # Man Lymphocytes # (Manual) Monocytes # (Manual) Eosinophils # (Manual) PT INR APTT POC ABG pH 7.487 H POC ABG pCO2 POC ABG pO2 67 L Sodium Potassium Chloride Carbon Dioxide BUN Creatinine Glucose POC Glucose 114 H 112 H Lactic Acid Calcium Phosphorus Magnesium Iron TIBC Ferritin Direct Bilirubin AST Total Creatine Kinase Troponin T Total Protein Albumin Prealbumin LDL Cholesterol Direct HDL Cholesterol Vitamin B12 TSH PTH Intact Urine Creatinine Urine Total Protein Vancomycin Trough Digoxin Salicylates Acetaminophen Crossmatch 03/22/19 03/22/19 03/22/19 06:06 06:10 06:10 WBC RBC Hgb Hct MCV MCH MCHC RDW Plt Count Lymph % (Auto) [place] % (Auto) Eos % (Auto) Lymph # [place] # Eos # Seg Neutrophils % Seg Neuts % (Manual) Lymphocytes % (Manual) Monocytes % (Manual) Eosinophils % (Manual) Nucleated RBC % Seg Neutrophils # Seg Neutrophils # Man Lymphocytes # (Manual) Monocytes # (Manual) Eosinophils # (Manual) PT INR APTT POC ABG pH POC ABG pCO2 POC ABG pO2 Sodium Potassium 3.0 L Chloride Carbon Dioxide BUN Creatinine Glucose POC Glucose 115 H Lactic Acid Calcium 7.0 L Phosphorus Magnesium Iron TIBC Ferritin Direct Bilirubin AST Total Creatine Kinase Troponin T 0.036 H Total Protein Albumin Prealbumin LDL Cholesterol Direct HDL Cholesterol Vitamin B12 TSH PTH Intact Urine Creatinine Urine Total Protein Vancomycin Trough Digoxin Salicylates Acetaminophen Crossmatch 03/22/19 03/22/19 03/22/19 06:10 06:10 11:59 WBC RBC Hgb Hct MCV MCH MCHC RDW Plt Count Lymph % (Auto) [place] % (Auto) Eos % (Auto) Lymph # [place] # Eos # Seg Neutrophils % Seg Neuts % (Manual) Lymphocytes % (Manual) Monocytes % (Manual) Eosinophils % (Manual) Nucleated RBC % Seg Neutrophils # Seg Neutrophils # Man Lymphocytes # (Manual) Monocytes # (Manual) Eosinophils # (Manual) PT INR APTT POC ABG pH POC ABG pCO2 POC ABG pO2 Sodium Potassium Chloride Carbon Dioxide BUN Creatinine Glucose POC Glucose Lactic Acid 4.80 H* 3.80 H* Calcium Phosphorus Magnesium Iron TIBC Ferritin Direct Bilirubin AST Total Creatine Kinase Troponin T Total Protein Albumin Prealbumin LDL Cholesterol Direct HDL Cholesterol Vitamin B12 TSH 7.810 H PTH Intact Urine Creatinine Urine Total Protein Vancomycin Trough Digoxin Salicylates Acetaminophen Crossmatch 03/22/19 03/22/19 03/22/19 13:45 13:45 13:45 WBC RBC Hgb 8.3 L Hct 24.5 L MCV MCH MCHC RDW Plt Count 56 L Lymph % (Auto) [place] % (Auto) Eos % (Auto) Lymph # [place] # Eos # Seg Neutrophils % Seg Neuts % (Manual) Lymphocytes % (Manual) Monocytes % (Manual) Eosinophils % (Manual) Nucleated RBC % Seg Neutrophils # Seg Neutrophils # Man Lymphocytes # (Manual) Monocytes # (Manual) Eosinophils # (Manual) PT 21.4 H INR 1.90 H APTT 43.2 H POC ABG pH POC ABG pCO2 POC ABG pO2 Sodium Potassium Chloride Carbon Dioxide BUN Creatinine Glucose POC Glucose Lactic Acid 3.50 H* Calcium Phosphorus Magnesium Iron TIBC Ferritin Direct Bilirubin AST Total Creatine Kinase Troponin T Total Protein Albumin Prealbumin LDL Cholesterol Direct HDL Cholesterol Vitamin B12 TSH PTH Intact Urine Creatinine Urine Total Protein Vancomycin Trough Digoxin Salicylates Acetaminophen Crossmatch 03/22/19 03/23/19 03/23/19 22:20 01:06 04:50 WBC 12.1 H RBC 2.36 L Hgb 7.7 L Hct 22.9 L MCV MCH 33 H MCHC RDW Plt Count 37 L Lymph % (Auto) [place] % (Auto) Eos % (Auto) Lymph # [place] # Eos # Seg Neutrophils % Seg Neuts % (Manual) 83.0 H Lymphocytes % (Manual) 8.0 L Monocytes % (Manual) Eosinophils % (Manual) Nucleated RBC % Seg Neutrophils # Seg Neutrophils # Man 10.0 H Lymphocytes # (Manual) 1.0 L Monocytes # (Manual) Eosinophils # (Manual) PT INR APTT POC ABG pH POC ABG pCO2 POC ABG pO2 Sodium Potassium Chloride Carbon Dioxide BUN Creatinine Glucose POC Glucose Lactic Acid 3.60 H* 2.70 H* Calcium Phosphorus Magnesium Iron TIBC Ferritin Direct Bilirubin AST Total Creatine Kinase Troponin T Total Protein Albumin Prealbumin LDL Cholesterol Direct HDL Cholesterol Vitamin B12 TSH PTH Intact Urine Creatinine Urine Total Protein Vancomycin Trough Digoxin Salicylates Acetaminophen Crossmatch 03/23/19 03/23/19 03/23/19 04:50 05:25 05:53 WBC RBC Hgb Hct MCV MCH MCHC RDW Plt Count Lymph % (Auto) [place] % (Auto) Eos % (Auto) Lymph # [place] # Eos # Seg Neutrophils % Seg Neuts % (Manual) Lymphocytes % (Manual) Monocytes % (Manual) Eosinophils % (Manual) Nucleated RBC % Seg Neutrophils # Seg Neutrophils # Man Lymphocytes # (Manual) Monocytes # (Manual) Eosinophils # (Manual) PT INR APTT POC ABG pH POC ABG pCO2 33.3 L POC ABG pO2 Sodium Potassium 3.5 L Chloride 108.3 H Carbon Dioxide BUN Creatinine Glucose POC Glucose 68 L Lactic Acid Calcium 7.3 L Phosphorus Magnesium Iron TIBC Ferritin Direct Bilirubin AST Total Creatine Kinase Troponin T Total Protein Albumin Prealbumin LDL Cholesterol Direct HDL Cholesterol Vitamin B12 TSH PTH Intact Urine Creatinine Urine Total Protein Vancomycin Trough Digoxin Salicylates Acetaminophen Crossmatch 03/24/19 03/24/19 03/24/19 03:26 05:50 05:57 WBC RBC Hgb Hct MCV MCH MCHC RDW Plt Count Lymph % (Auto) [place] % (Auto) Eos % (Auto) Lymph # [place] # Eos # Seg Neutrophils % Seg Neuts % (Manual) Lymphocytes % (Manual) Monocytes % (Manual) Eosinophils % (Manual) Nucleated RBC % Seg Neutrophils # Seg Neutrophils # Man Lymphocytes # (Manual) Monocytes # (Manual) Eosinophils # (Manual) PT INR APTT POC ABG pH POC ABG pCO2 POC ABG pO2 78 L Sodium Potassium 3.4 L Chloride 116.5 H Carbon Dioxide 21 L BUN Creatinine 0.5 L Glucose 105 H POC Glucose 127 H Lactic Acid Calcium 6.4 L Phosphorus Magnesium Iron TIBC Ferritin Direct Bilirubin AST Total Creatine Kinase Troponin T Total Protein Albumin Prealbumin LDL Cholesterol Direct HDL Cholesterol Vitamin B12 TSH PTH Intact Urine Creatinine Urine Total Protein Vancomycin Trough Digoxin Salicylates Acetaminophen Crossmatch 03/24/19 03/24/19 03/24/19 06:00 11:30 12:25 WBC 13.6 H RBC 2.08 L Hgb 6.9 L Hct 20.5 L MCV 99 H MCH 33 H MCHC RDW Plt Count 50 L Lymph % (Auto) 8.1 L [place] % (Auto) 10.0 H Eos % (Auto) Lymph # 1.1 L [place] # 1.4 H Eos # Seg Neutrophils % 80.7 H Seg Neuts % (Manual) Lymphocytes % (Manual) Monocytes % (Manual) Eosinophils % (Manual) Nucleated RBC % Seg Neutrophils # 11.0 H Seg Neutrophils # Man Lymphocytes # (Manual) Monocytes # (Manual) Eosinophils # (Manual) PT INR APTT POC ABG pH POC ABG pCO2 POC ABG pO2 Sodium Potassium Chloride Carbon Dioxide BUN Creatinine Glucose POC Glucose 111 H Lactic Acid Calcium Phosphorus Magnesium Iron TIBC Ferritin Direct Bilirubin AST Total Creatine Kinase Troponin T Total Protein Albumin Prealbumin LDL Cholesterol Direct HDL Cholesterol Vitamin B12 TSH PTH Intact Urine Creatinine Urine Total Protein Vancomycin Trough Digoxin Salicylates Acetaminophen Crossmatch See Detail 03/24/19 03/25/19 03/25/19 14:25 05:20 10:00 WBC 13.4 H RBC 2.54 L Hgb 8.1 L Hct 24.3 L MCV MCH MCHC RDW 17.3 H Plt Count 44 L Lymph % (Auto) [place] % (Auto) Eos % (Auto) Lymph # [place] # Eos # Seg Neutrophils % Seg Neuts % (Manual) Lymphocytes % (Manual) Monocytes % (Manual) Eosinophils % (Manual) Nucleated RBC % Seg Neutrophils # Seg Neutrophils # Man Lymphocytes # (Manual) Monocytes # (Manual) Eosinophils # (Manual) PT INR APTT POC ABG pH POC ABG pCO2 POC ABG pO2 Sodium Potassium Chloride Carbon Dioxide BUN Creatinine Glucose POC Glucose 111 H Lactic Acid Calcium Phosphorus Magnesium Iron 32 L TIBC 75 L Ferritin Direct Bilirubin AST Total Creatine Kinase Troponin T Total Protein Albumin Prealbumin LDL Cholesterol Direct HDL Cholesterol Vitamin B12 TSH PTH Intact Urine Creatinine Urine Total Protein Vancomycin Trough Digoxin Salicylates Acetaminophen Crossmatch 03/25/19 03/25/19 03/25/19 10:11 10:11 23:11 WBC RBC Hgb Hct MCV MCH MCHC RDW Plt Count Lymph % (Auto) [place] % (Auto) Eos % (Auto) Lymph # [place] # Eos # Seg Neutrophils % Seg Neuts % (Manual) Lymphocytes % (Manual) Monocytes % (Manual) Eosinophils % (Manual) Nucleated RBC % Seg Neutrophils # Seg Neutrophils # Man Lymphocytes # (Manual) Monocytes # (Manual) Eosinophils # (Manual) PT INR APTT POC ABG pH POC ABG pCO2 POC ABG pO2 Sodium Potassium Chloride 112.0 H Carbon Dioxide BUN 20 H Creatinine 0.6 L Glucose POC Glucose 112 H Lactic Acid Calcium 7.2 L Phosphorus Magnesium Iron TIBC Ferritin Direct Bilirubin AST Total Creatine Kinase Troponin T Total Protein Albumin Prealbumin LDL Cholesterol Direct HDL Cholesterol Vitamin B12 > 2000 H TSH PTH Intact Urine Creatinine Urine Total Protein Vancomycin Trough Digoxin Salicylates Acetaminophen Crossmatch 03/26/19 03/26/19 03/26/19 05:00 05:00 05:16 WBC 14.4 H RBC 2.74 L Hgb 8.9 L Hct 25.7 L MCV MCH 33 H MCHC 35 H RDW 16.9 H Plt Count 60 L Lymph % (Auto) [place] % (Auto) Eos % (Auto) Lymph # [place] # Eos # Seg Neutrophils % Seg Neuts % (Manual) 83.0 H Lymphocytes % (Manual) 5.0 L Monocytes % (Manual) Eosinophils % (Manual) 5.0 H Nucleated RBC % 1.0 H Seg Neutrophils # Seg Neutrophils # Man 12.0 H Lymphocytes # (Manual) 0.7 L Monocytes # (Manual) 0.9 H Eosinophils # (Manual) 0.7 H PT INR APTT POC ABG pH POC ABG pCO2 POC ABG pO2 Sodium Potassium 3.1 L Chloride 110.4 H Carbon Dioxide BUN 22 H Creatinine Glucose 101 H POC Glucose 114 H Lactic Acid Calcium 7.4 L Phosphorus Magnesium Iron TIBC Ferritin Direct Bilirubin AST Total Creatine Kinase Troponin T Total Protein Albumin Prealbumin LDL Cholesterol Direct HDL Cholesterol Vitamin B12 TSH PTH Intact Urine Creatinine Urine Total Protein Vancomycin Trough Digoxin Salicylates Acetaminophen Crossmatch 03/26/19 03/27/19 03/27/19 11:55 09:04 09:04 WBC RBC Hgb Hct MCV MCH MCHC RDW Plt Count Lymph % (Auto) [place] % (Auto) Eos % (Auto) Lymph # [place] # Eos # Seg Neutrophils % Seg Neuts % (Manual) Lymphocytes % (Manual) Monocytes % (Manual) Eosinophils % (Manual) Nucleated RBC % Seg Neutrophils # Seg Neutrophils # Man Lymphocytes # (Manual) Monocytes # (Manual) Eosinophils # (Manual) PT INR APTT POC ABG pH POC ABG pCO2 POC ABG pO2 Sodium Potassium 3.2 L Chloride Carbon Dioxide BUN 22 H Creatinine Glucose POC Glucose 121 H Lactic Acid Calcium 7.7 L Phosphorus Magnesium Iron TIBC Ferritin Direct Bilirubin AST Total Creatine Kinase Troponin T Total Protein Albumin Prealbumin LDL Cholesterol Direct HDL Cholesterol Vitamin B12 TSH PTH Intact Urine Creatinine Urine Total Protein Vancomycin Trough 23.0 H Digoxin Salicylates Acetaminophen Crossmatch 03/27/19 03/27/19 03/27/19 09:04 13:31 14:04 WBC 14.8 H RBC 2.52 L Hgb 8.0 L 8.3 L Hct 24.0 L 25.3 L MCV MCH MCHC RDW 17.0 H Plt Count 89 L 91 L Lymph % (Auto) [place] % (Auto) 8.8 H Eos % (Auto) Lymph # [place] # 1.3 H Eos # Seg Neutrophils % 70.7 H Seg Neuts % (Manual) Lymphocytes % (Manual) Monocytes % (Manual) Eosinophils % (Manual) Nucleated RBC % Seg Neutrophils # 10.5 H Seg Neutrophils # Man Lymphocytes # (Manual) Monocytes # (Manual) Eosinophils # (Manual) PT INR APTT POC ABG pH POC ABG pCO2 POC ABG pO2 Sodium Potassium Chloride Carbon Dioxide BUN Creatinine Glucose POC Glucose Lactic Acid Calcium Phosphorus Magnesium Iron TIBC Ferritin Direct Bilirubin 0.3 H AST Total Creatine Kinase Troponin T Total Protein 4.9 L Albumin 1.3 L Prealbumin LDL Cholesterol Direct HDL Cholesterol Vitamin B12 TSH PTH Intact Urine Creatinine Urine Total Protein Vancomycin Trough Digoxin Salicylates Acetaminophen Crossmatch 03/27/19 03/27/19 03/28/19 14:04 23:51 01:05 WBC 14.4 H RBC 2.44 L Hgb 8.0 L Hct 24.5 L MCV 100 H MCH 33 H MCHC RDW 18.5 H Plt Count 86 L Lymph % (Auto) [place] % (Auto) Eos % (Auto) Lymph # [place] # Eos # Seg Neutrophils % Seg Neuts % (Manual) 84.0 H Lymphocytes % (Manual) 10.0 L Monocytes % (Manual) Eosinophils % (Manual) Nucleated RBC % Seg Neutrophils # Seg Neutrophils # Man 12.1 H Lymphocytes # (Manual) Monocytes # (Manual) Eosinophils # (Manual) PT 21.4 H INR 1.90 H APTT 42.2 H POC ABG pH POC ABG pCO2 POC ABG pO2 Sodium Potassium Chloride Carbon Dioxide BUN Creatinine Glucose POC Glucose 130 H Lactic Acid Calcium Phosphorus Magnesium Iron TIBC Ferritin Direct Bilirubin AST Total Creatine Kinase Troponin T Total Protein Albumin Prealbumin LDL Cholesterol Direct HDL Cholesterol Vitamin B12 TSH PTH Intact Urine Creatinine Urine Total Protein Vancomycin Trough Digoxin Salicylates Acetaminophen Crossmatch 03/28/19 03/28/19 03/28/19 02:51 04:45 07:31 WBC RBC Hgb Hct MCV MCH MCHC RDW Plt Count Lymph % (Auto) [place] % (Auto) Eos % (Auto) Lymph # [place] # Eos # Seg Neutrophils % Seg Neuts % (Manual) Lymphocytes % (Manual) Monocytes % (Manual) Eosinophils % (Manual) Nucleated RBC % Seg Neutrophils # Seg Neutrophils # Man Lymphocytes # (Manual) Monocytes # (Manual) Eosinophils # (Manual) PT INR APTT 75.0 H* POC ABG pH POC ABG pCO2 POC ABG pO2 Sodium Potassium Chloride Carbon Dioxide BUN 22 H Creatinine Glucose POC Glucose Lactic Acid Calcium 7.8 L Phosphorus Magnesium Iron TIBC Ferritin 448.3 H Direct Bilirubin AST Total Creatine Kinase Troponin T Total Protein Albumin Prealbumin LDL Cholesterol Direct HDL Cholesterol Vitamin B12 TSH PTH Intact Urine Creatinine Urine Total Protein Vancomycin Trough Digoxin Salicylates Acetaminophen Crossmatch 03/28/19 03/29/19 03/29/19 14:30 04:40 04:40 WBC RBC 2.17 L Hgb 7.1 L Hct 20.8 L MCV MCH 33 H MCHC RDW 17.1 H Plt Count 122 L Lymph % (Auto) [place] % (Auto) Eos % (Auto) Lymph # [place] # Eos # Seg Neutrophils % Seg Neuts % (Manual) Lymphocytes % (Manual) Monocytes % (Manual) Eosinophils % (Manual) Nucleated RBC % Seg Neutrophils # Seg Neutrophils # Man Lymphocytes # (Manual) Monocytes # (Manual) Eosinophils # (Manual) PT INR APTT 70.3 H* POC ABG pH POC ABG pCO2 POC ABG pO2 Sodium Potassium Chloride Carbon Dioxide 31 H BUN 22 H Creatinine 0.5 L Glucose POC Glucose Lactic Acid Calcium 8.0 L Phosphorus Magnesium Iron TIBC Ferritin Direct Bilirubin AST Total Creatine Kinase Troponin T Total Protein 5.0 L Albumin 1.4 L Prealbumin LDL Cholesterol Direct HDL Cholesterol Vitamin B12 TSH PTH Intact Urine Creatinine Urine Total Protein Vancomycin Trough Digoxin Salicylates Acetaminophen Crossmatch 03/29/19 03/29/19 03/29/19 04:40 04:40 11:50 WBC RBC Hgb Hct MCV MCH MCHC RDW Plt Count Lymph % (Auto) [place] % (Auto) Eos % (Auto) Lymph # [place] # Eos # Seg Neutrophils % Seg Neuts % (Manual) Lymphocytes % (Manual) Monocytes % (Manual) Eosinophils % (Manual) Nucleated RBC % Seg Neutrophils # Seg Neutrophils # Man Lymphocytes # (Manual) Monocytes # (Manual) Eosinophils # (Manual) PT INR APTT 71.8 H* POC ABG pH POC ABG pCO2 POC ABG pO2 Sodium Potassium Chloride Carbon Dioxide BUN Creatinine Glucose POC Glucose 118 H Lactic Acid Calcium Phosphorus Magnesium Iron TIBC Ferritin Direct Bilirubin AST Total Creatine Kinase Troponin T Total Protein Albumin Prealbumin LDL Cholesterol Direct HDL Cholesterol Vitamin B12 TSH PTH Intact Urine Creatinine Urine Total Protein Vancomycin Trough Digoxin 3.5 H* Salicylates Acetaminophen Crossmatch 03/29/19 03/29/19 03/29/19 16:20 16:20 21:10 WBC RBC Hgb Hct MCV MCH MCHC RDW Plt Count Lymph % (Auto) [place] % (Auto) Eos % (Auto) Lymph # [place] # Eos # Seg Neutrophils % Seg Neuts % (Manual) Lymphocytes % (Manual) Monocytes % (Manual) Eosinophils % (Manual) Nucleated RBC % Seg Neutrophils # Seg Neutrophils # Man Lymphocytes # (Manual) Monocytes # (Manual) Eosinophils # (Manual) PT INR APTT 61.5 H* 112.6 H* POC ABG pH POC ABG pCO2 POC ABG pO2 Sodium Potassium Chloride Carbon Dioxide BUN Creatinine Glucose POC Glucose Lactic Acid Calcium Phosphorus Magnesium Iron TIBC Ferritin Direct Bilirubin AST Total Creatine Kinase Troponin T Total Protein Albumin Prealbumin LDL Cholesterol Direct HDL Cholesterol Vitamin B12 TSH PTH Intact Urine Creatinine Urine Total Protein Vancomycin Trough Digoxin 2.6 H* Salicylates Acetaminophen Crossmatch 03/29/19 03/30/19 03/30/19 22:30 04:42 04:42 WBC RBC Hgb 6.4 L Hct 18.9 L* MCV MCH MCHC RDW Plt Count Lymph % (Auto) [place] % (Auto) Eos % (Auto) Lymph # [place] # Eos # Seg Neutrophils % Seg Neuts % (Manual) Lymphocytes % (Manual) Monocytes % (Manual) Eosinophils % (Manual) Nucleated RBC % Seg Neutrophils # Seg Neutrophils # Man Lymphocytes # (Manual) Monocytes # (Manual) Eosinophils # (Manual) PT INR APTT 103.8 H* POC ABG pH POC ABG pCO2 POC ABG pO2 Sodium Potassium Chloride Carbon Dioxide BUN Creatinine Glucose POC Glucose Lactic Acid Calcium Phosphorus Magnesium Iron TIBC Ferritin Direct Bilirubin AST Total Creatine Kinase Troponin T Total Protein Albumin Prealbumin LDL Cholesterol Direct HDL Cholesterol Vitamin B12 TSH PTH Intact Urine Creatinine Urine Total Protein Vancomycin Trough Digoxin 2.6 H* Salicylates Acetaminophen Crossmatch 03/30/19 03/30/19 03/30/19 07:04 07:58 11:15 WBC RBC 2.66 L Hgb 8.5 L Hct 25.3 L D MCV MCH MCHC RDW 17.4 H Plt Count Lymph % (Auto) [place] % (Auto) Eos % (Auto) Lymph # [place] # Eos # Seg Neutrophils % Seg Neuts % (Manual) Lymphocytes % (Manual) Monocytes % (Manual) Eosinophils % (Manual) Nucleated RBC % Seg Neutrophils # Seg Neutrophils # Man Lymphocytes # (Manual) Monocytes # (Manual) Eosinophils # (Manual) PT INR APTT 50.5 H POC ABG pH POC ABG pCO2 POC ABG pO2 Sodium Potassium Chloride Carbon Dioxide BUN Creatinine Glucose POC Glucose Lactic Acid Calcium Phosphorus Magnesium Iron TIBC Ferritin Direct Bilirubin AST Total Creatine Kinase Troponin T Total Protein Albumin Prealbumin LDL Cholesterol Direct HDL Cholesterol Vitamin B12 TSH PTH Intact Urine Creatinine Urine Total Protein Vancomycin Trough Digoxin Salicylates Acetaminophen Crossmatch See Detail 03/30/19 03/30/19 03/30/19 11:36 17:40 22:51 WBC RBC 2.48 L Hgb 7.9 L Hct 23.9 L MCV MCH MCHC RDW 17.7 H Plt Count Lymph % (Auto) [place] % (Auto) Eos % (Auto) Lymph # [place] # Eos # Seg Neutrophils % Seg Neuts % (Manual) Lymphocytes % (Manual) Monocytes % (Manual) Eosinophils % (Manual) Nucleated RBC % Seg Neutrophils # Seg Neutrophils # Man Lymphocytes # (Manual) Monocytes # (Manual) Eosinophils # (Manual) PT INR APTT POC ABG pH POC ABG pCO2 POC ABG pO2 Sodium Potassium Chloride Carbon Dioxide BUN Creatinine Glucose POC Glucose 129 H 112 H Lactic Acid Calcium Phosphorus Magnesium Iron TIBC Ferritin Direct Bilirubin AST Total Creatine Kinase Troponin T Total Protein Albumin Prealbumin LDL Cholesterol Direct HDL Cholesterol Vitamin B12 TSH PTH Intact Urine Creatinine Urine Total Protein Vancomycin Trough Digoxin Salicylates Acetaminophen Crossmatch 03/30/19 03/31/19 03/31/19 23:47 05:00 11:35 WBC RBC Hgb 8.0 L Hct 23.7 L MCV MCH MCHC RDW Plt Count Lymph % (Auto) [place] % (Auto) Eos % (Auto) Lymph # [place] # Eos # Seg Neutrophils % Seg Neuts % (Manual) Lymphocytes % (Manual) Monocytes % (Manual) Eosinophils % (Manual) Nucleated RBC % Seg Neutrophils # Seg Neutrophils # Man Lymphocytes # (Manual) Monocytes # (Manual) Eosinophils # (Manual) PT INR APTT POC ABG pH POC ABG pCO2 POC ABG pO2 Sodium Potassium Chloride Carbon Dioxide BUN Creatinine Glucose POC Glucose 112 H 106 H Lactic Acid Calcium Phosphorus Magnesium Iron TIBC Ferritin Direct Bilirubin AST Total Creatine Kinase Troponin T Total Protein Albumin Prealbumin LDL Cholesterol Direct HDL Cholesterol Vitamin B12 TSH PTH Intact Urine Creatinine Urine Total Protein Vancomycin Trough Digoxin Salicylates Acetaminophen Crossmatch 04/01/19 04/02/19 04/03/19 11:38 08:33 06:15 WBC RBC 2.11 L Hgb 7.8 L 6.8 L Hct 23.1 L 20.5 L MCV 98 H MCH MCHC RDW 17.6 H Plt Count Lymph % (Auto) [place] % (Auto) 12.1 H Eos % (Auto) 7.4 H Lymph # [place] # Eos # Seg Neutrophils % Seg Neuts % (Manual) Lymphocytes % (Manual) Monocytes % (Manual) Eosinophils % (Manual) Nucleated RBC % Seg Neutrophils # Seg Neutrophils # Man Lymphocytes # (Manual) Monocytes # (Manual) Eosinophils # (Manual) PT INR APTT POC ABG pH POC ABG pCO2 POC ABG pO2 Sodium Potassium Chloride Carbon Dioxide BUN Creatinine Glucose POC Glucose 136 H Lactic Acid Calcium Phosphorus Magnesium Iron TIBC Ferritin Direct Bilirubin AST Total Creatine Kinase Troponin T Total Protein Albumin Prealbumin LDL Cholesterol Direct HDL Cholesterol Vitamin B12 TSH PTH Intact Urine Creatinine Urine Total Protein Vancomycin Trough Digoxin Salicylates Acetaminophen Crossmatch 04/03/19 04/04/19 04/04/19 08:22 05:20 05:20 WBC RBC 2.27 L Hgb 7.3 L 7.3 L Hct 21.9 L 22.0 L MCV MCH MCHC RDW 16.8 H Plt Count Lymph % (Auto) [place] % (Auto) 12.2 H Eos % (Auto) 6.6 H Lymph # [place] # 1.0 H Eos # 0.5 H Seg Neutrophils % Seg Neuts % (Manual) Lymphocytes % (Manual) Monocytes % (Manual) Eosinophils % (Manual) Nucleated RBC % Seg Neutrophils # Seg Neutrophils # Man Lymphocytes # (Manual) Monocytes # (Manual) Eosinophils # (Manual) PT INR APTT POC ABG pH POC ABG pCO2 POC ABG pO2 Sodium Potassium Chloride Carbon Dioxide BUN Creatinine 0.4 L Glucose POC Glucose Lactic Acid Calcium 7.9 L Phosphorus 2.20 L Magnesium 1.40 L Iron TIBC Ferritin Direct Bilirubin AST Total Creatine Kinase Troponin T Total Protein Albumin Prealbumin LDL Cholesterol Direct HDL Cholesterol Vitamin B12 TSH PTH Intact Urine Creatinine Urine Total Protein Vancomycin Trough Digoxin Salicylates Acetaminophen Crossmatch 04/05/19 04/05/19 04/05/19 03:30 03:30 06:51 WBC RBC 2.09 L Hgb 6.7 L Hct 20.1 L MCV MCH MCHC RDW 16.6 H Plt Count Lymph % (Auto) [place] % (Auto) 12.6 H Eos % (Auto) 6.2 H Lymph # [place] # 1.0 H Eos # 0.5 H Seg Neutrophils % Seg Neuts % (Manual) Lymphocytes % (Manual) Monocytes % (Manual) Eosinophils % (Manual) Nucleated RBC % Seg Neutrophils # Seg Neutrophils # Man Lymphocytes # (Manual) Monocytes # (Manual) Eosinophils # (Manual) PT INR APTT POC ABG pH POC ABG pCO2 POC ABG pO2 Sodium Potassium Chloride Carbon Dioxide BUN Creatinine 0.4 L Glucose POC Glucose Lactic Acid Calcium 7.6 L Phosphorus Magnesium Iron TIBC Ferritin Direct Bilirubin AST Total Creatine Kinase Troponin T Total Protein Albumin Prealbumin LDL Cholesterol Direct HDL Cholesterol Vitamin B12 TSH PTH Intact Urine Creatinine Urine Total Protein Vancomycin Trough Digoxin Salicylates Acetaminophen Crossmatch See Detail 04/05/19 04/05/19 04/06/19 13:07 23:50 09:36 WBC RBC 2.56 L Hgb 8.4 L Hct 23.5 L MCV MCH 33 H MCHC 36 H RDW 17.9 H Plt Count Lymph % (Auto) [place] % (Auto) Eos % (Auto) Lymph # [place] # Eos # Seg Neutrophils % Seg Neuts % (Manual) Lymphocytes % (Manual) Monocytes % (Manual) Eosinophils % (Manual) Nucleated RBC % Seg Neutrophils # Seg Neutrophils # Man Lymphocytes # (Manual) Monocytes # (Manual) Eosinophils # (Manual) PT INR APTT POC ABG pH POC ABG pCO2 POC ABG pO2 Sodium Potassium Chloride Carbon Dioxide BUN Creatinine Glucose POC Glucose 106 H 109 H Lactic Acid Calcium Phosphorus Magnesium Iron TIBC Ferritin Direct Bilirubin AST Total Creatine Kinase Troponin T Total Protein Albumin Prealbumin LDL Cholesterol Direct HDL Cholesterol Vitamin B12 TSH PTH Intact Urine Creatinine Urine Total Protein Vancomycin Trough Digoxin Salicylates Acetaminophen Crossmatch Chest x-ray: report reviewed, image reviewed
--- NOTE | 2019-04-06 15:16 | Progress Note ---
Assessment and Plan Cultures/ID related labs: 03/27 tracheal aspirate - heavy neutrophils, usual resp maday Blood culture 03/19/2019 negative. Urine culture 03/19/2019 negative. 03/23/2019 tracheal aspirate culture: Usual resp maday Assessment: 73 y/o female with history of dementia, prior CVA, on home hospice admitted on 03/20/2019 brought by EMS due to altered mental status: 1) Sepsis with septic shock: Resolved 2) Bilateral pneumonia: ? aspiration v/s CAP. Trach aspirate cultures usual resp maday, <25 WBC. New trach aspirate with GNR. Would not react strongly to GNR in sputum culture, will await speciation and sensitivities (she just finished full course of meropenem) and may represent colonization of ETT instead of true infection. 3) Acute encephalopathy: CT head without contrast shows encephalomalacia in the entire right cerebral hemisphere, volume loss in the left cerebral hemisphere, no acute parenchymal lesion in the brain. 4) Acute respiratory failure: remains intubated, on the vent. Responsive to commands today. 5) HA: improved. 6) Persistent fevers - Improved with cessation of antibiotics.Continue to monitor, occasional recurrences. 7) DVTs - DVT of RIJ at catheter site as well as R common femoral, and a superficial thrombus in R greater saphenous. For IVC filter. Will continue to follow along with you. Recommendations: monitor closely low threshold to restart ABx if she decompensates continue off antibiotics Guarded prognosis, was on home hospice prior to admission MD [facility] C: [phone] O: [phone] F: [phone] Subjective Date of service: 04/06/19 Principal diagnosis: anemia - DVT Interval history: Remains intubated. More alert today. Moving spontaneously, but not responding to commands. Objective - Exam Narrative Exam: Constitutional: asleep, no distress, weakly following commands Head, Ears, Nose: Normocephalic, atraumatic. External ears, nose normal Eyes: Conjunctivae/corneas clear. No icterus. No ptosis. Neck: Supple, no meningeal signs Oral: Intubated Cardiovascular: S1, S2 normal. Normal rhythm Respiratory: Good air entry, clear to auscultation bilaterally GI: Soft, non-tender; bowel sounds normal. No peritoneal signs Musculoskeletal: No pedal edema Skin: No rash or abscess Hem/Lymphatic: No palpable cervical or supraclavicular nodes. No lymphangitis Psych: no agitation Neurological: weak, 4/5 strength extremities. L sided decerebrate positioning, however R side normal. - Constitutional Vitals: Vital Signs Temp Pulse Resp BP Pulse Ox 97.9 F 111 H 19 165/85 96 04/06/19 12:00 04/06/19 13:00 04/06/19 13:00 04/06/19 13:00 04/06/19 13:00 Temperature -Last 24 Hours Temperature 97.9 F Temperature 99.1 F Temperature 97.9 F Temperature 97.9 F Temperature 102.3 F Temperature 101 F Temperature 98.9 F - Labs CBC & Chem 7: 04/06/19 09:36 04/05/19 03:30 Labs: Abnormal lab results 04/05/19 04/06/19 Range/Units 23:50 09:36 RBC 2.56 L (3.65-5.03) M/mm3 Hgb 8.4 L (10.1-14.3) gm/dl Hct 23.5 L (30.3-42.9) % MCH 33 H (28-32) pg MCHC 36 H (30-34) % RDW 17.9 H (13.2-15.2) % POC Glucose 109 H (70-105)
[2019-04-06] MEDS: BABY ASPIRIN PO SCH (15:48)
[2019-04-06] MEDS: PEPCID PO SCH ×2 (15:48→21:58)
[2019-04-06] MEDS: CORDARONE PO SCH ×2 (15:48→21:58)
[2019-04-06] MEDS: SODIUM CHLORIDE FLUSH SYRINGE 10 ML IV SCH ×2 (15:49→22:01)
[2019-04-06] MEDS ORDERED: VERSED ONE (17:18)
[2019-04-06] MEDS ORDERED: SUBLIMAZE ONE (17:18)
[2019-04-06] MEDS ORDERED: NACL 0.9% 500 ML 500 ML ONE (17:19)
[2019-04-06] MEDS ORDERED: XYLOCAINE 1%/ EPI 1:100,000 INFILTRATI ONE (17:19)
[2019-04-06] MEDS ORDERED: HEPARIN 10,000 UNITS/10 ML ONE (17:19)
[2019-04-06] MEDS ORDERED: HEPARIN/NS 5000 UNIT/500ML(CATH LAB) 0 ML IR ONE (18:06)
--- NOTE | 2019-04-06 18:08 | Post Operative Note ---
Date of procedure: 04/06/19 Pre-op diagnosis: DVT and inability to anticoagulate Post-op diagnosis: same Findings: Venatech IVC filter already in place Infrarenal IVC is diffusely stenotic but still patent Left common iliac vein has multiple synechiae but is patent Right common iliac vein has multiple synechiae but is patent Procedure: 1. Ultrasound guided access of the left internal jugular vein 2. Left internal jugular vein venography 3. Selection of the IVC with venography 4. Selection of the left common iliac vein with venography 5. Selection of the right common iliac vein with venography Anesthesia: local (w/ conscious sedation) Surgeon: SANTY STOVALL Estimated blood loss: minimal Condition: stable Disposition: ICU
--- NOTE | 2019-04-06 18:13 | Operative Report ---
Operative Report Operative Report: EXAM: 1. Ultrasound guided access of the left internal jugular vein 2. Left internal jugular vein venography 3. Selection of the IVC with venography 4. Selection of the left common iliac vein with venography 5. Selection of the right common iliac vein with venography DATE: 04/06/19 SEWING MACHINE ASSEMBLER: SANTY STOVALL MD INDICATION: DVT with inability to anticoagulate and request for IVC filter and the patient cannot provide any history. MEDICATIONS: Please see nursing report for full details. DEVICES: None CONTRAST: Please see culture media laboratory assistant report for full details. PROCEDURE: The risks, benefits, and alternatives were discussed with the patient's family; written informed consent was obtained. The patient was brought to the angiography suite and prepped and draped in sterile fashion. Her left neck was prepped and draped in a sterile fashion. Ultrasound was used to identify the left internal jugular vein which was patent. Under direct ultrasound guidance, the left internal jugular vein was accessed with a 21-gauge micropuncture needle. 0.018 inch wire was passed into the left subclavian vein. Needle was exchanged for transitional dilator. Digital subtraction angiography was performed to the transitional dilator confirming position of the left internal jugular vein with flow passing into the left subclavian vein, left innominate vein, and SVC. The difficulty passing the wire centrally likely had to do with the wire being deflected by a valve. Wire was then exchanged for 0.035 inch Glidewire which was then used to select the IVC. Transitional dilator was exchanged for 4 Burmese angled catheter. Wire and catheter were then negotiated into the IVC. Fluoroscopy was used to visualize an indwelling IVC filter. The IVC filter was a VENATECH model filter. After careful inspection under fluoroscopic guidance, I determine this was a non retrievable variant of the venatech IVC filter. There is used to select the IVC and digital subtraction angiography was performed demonstrating patency of the diminutive IVC. The left common iliac vein was selected and digital subtraction angiography demonstrated patency of the left common iliac vein, but there was synechia noted compatible with prior chronic thromboembolic issue. The right common iliac vein was selected and digital subtraction angiography demonstrated patency of the right common iliac vein, but there is synechia noted compatible with prior chronic thromboembolic issue. No acute iliac thrombus noted. No acute IVC thrombus noted. At this point, since the patient already had an indwelling permanent IVC filter, all wires and catheters removed. Pressure was held until hemostasis was achieved. Dermabond applied. Patient tolerated the procedure well. No immediate post procedure complication. FINDINGS: Please see procedure note above. IMPRESSION: 1. No need for IVC filter placement as the patient has an indwelling permanent IVC filter. Selection of the IVC, and bilateral common iliac veins was performed demonstrating no acute thromboembolic disease in the iliac veins and IVC.
[2019-04-06] MEDS ORDERED: ANCEF/STERILE WATER 2 GM/20 ML 2 GM/20 ML SYRINGE IV ONE ×2 (18:14→18:18)
[2019-04-06] MEDS ORDERED: HEPARIN/NS 5000 UNIT/500ML(CATH LAB) 500 ML IR ONE (18:14)
--- NOTE | 2019-04-06 18:17 | Event Note ---
Date: 04/06/19 Venography performed. IVC filter in place is a VENATECH NON RETRIEVABLE IVC FILTER. 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 No IVC filter placed as there was one already in place.
[2019-04-06] MEDS: TYLENOL FEEDTUBE PRN (21:58)
[2019-04-07] MEDS: HumaLOG SUB-Q SCH ×3 (00:35→19:53)
[2019-04-07] MEDS: DUONEB *Not for PRN Use IH SCH ×4 (03:00→19:53)
--- NOTE | 2019-04-07 06:35 | Hem/Onc Progress Note ---
Assessment and Plan h/o low plt - at admission DVT was on home hospice 1. h/o Thrombocytopenia. This may be secondary to medications. The platelets were even low at admission. The differential includes infection versus a marrow issue. At this time, platelets are adequate, we will follow the trend. Because of clinical suspicion, HIT test has been ordered. Argatroban ordered. Heparin has been stopped. plt have improved 2. h/o Pneumonia. 3. h/o Encephalopathy. 4. Respiratory failure, on vent. 5. h/o Renal impairment. 6. Deep vein thrombosis. Her immobilization may have a role. Central line also may have a role. Acute Right common femoral DVT and right IJ vein thrombosis the patient was on Argatroban. IVC filter may prevent the leg DVT from progression to PE; however, for IJ DVT, we have limited options. The patient was on home hospice as per notes. Atrial fibrillation, she was on medications. History of anemia, deficiency investigations. Leukocytosis, likely reactive. B12 level more than 2000, serum iron 32. anemia - IV iron trial 04/07/2019 anemia - off argatroban - HIT test negative h/o PRBC it appears that the pt is possibly bleeding - based on hb fall - hence anticoag has been held if hb improves - ? oral anticoag an option - eliquis vs xarelto there is a question about trach peg - seen by sx team for same tried to call junior daughter - with the tel number in the system - via welding machine operator ultrasonic - disconnected number IVC filter placed - Patient Problems (1) Thrombocytopenia Current Visit: Yes Status: Acute Subjective Date of service: 04/07/19 Principal diagnosis: anemia - dvt Interval history: awake - on vent Objective - Exam Narrative Exam: Pain - none - on vent General appearance intubated Performance status - complete help needed Eyes - no icterus ENT no thrush LNs cervical not palpable Neck - no LNs/mass Respiratory Normal Breath sounds - CTA anteriorly CVS S1 S2 + Extremities normal temperature - flaccid General GI Soft - distended Rectal deferred female - deferred Skin warm Musculoskeletal not able to evaluate Neurologically - on vent - Constitutional Vitals: Last Vital Signs Temp 98.6 F 04/07/19 03:29 Pulse 102 H 04/07/19 03:20 Resp 20 04/07/19 02:00 BP 137/77 04/07/19 03:20 Pulse Ox 98 04/07/19 03:20 - Labs Lab Results: Laboratory Results - last 24 hr 04/06/19 04/06/19 04/06/19 09:36 12:01 20:42 WBC 10.5 RBC 2.56 L Hgb 8.4 L Hct 23.5 L MCV 92 MCH 33 H MCHC 36 H RDW 17.9 H Plt Count 382 POC Glucose 86 79 04/07/19 04/07/19 00:03 05:21 WBC RBC Hgb Hct MCV MCH MCHC RDW Plt Count POC Glucose 87 87 Medications & Allergies - Medications Allergies/Adverse Reactions: Allergies No Known Allergies Allergy (Unverified 03/19/19 13:11) Home Medications: Home Medications Medication Instructions Recorded Confirmed Last Taken Type Aspirin EC 81 mg PO DAILY 03/20/19 03/20/19 Unknown History Divalproex Sodium 375 mg PO Q8H PRN 03/20/19 03/20/19 Unknown History Metoprolol [Lopressor TAB] 50 mg PO BID 03/20/19 03/20/19 Unknown History Sennosides/Docusate Sodium [Senna 8.6 mg PO BID PRN 03/20/19 03/20/19 Unknown History Plus Tablet] levETIRAcetam [Keppra TAB] 500 mg PO BID 03/20/19 03/20/19 Unknown History Active Medications: Generic Name Dose Route Start Last Admin Trade Name Freq PRN Reason Stop Dose Admin Acetaminophen 650 mg 03/24/19 23:48 04/06/19 21:58 Tylenol FEEDTUBE 650 mg Q6H PRN Administration Fever >101 Albuterol 2.5 mg 03/19/19 23:58 Proventil IH Q3HRT PRN Shortness Of Breath Albuterol/Ipratropium 1 ampul 03/20/19 02:00 04/07/19 03:00 Duoneb *Not For Prn Use* IH 1 ampul Q6HRT YUSUF Administration Amiodarone HCl 200 mg 03/22/19 22:00 04/06/19 21:58 Cordarone PO 200 mg BID YUSUF Administration Lipase/Protease/Amylase 1 each 03/22/19 16:03 Naomi Sargent 10,500 Unit FEEDTUBE PRN PRN For Clogged Feeding Tube Aspirin 81 mg 03/21/19 10:00 04/06/19 15:48 Baby Aspirin PO 81 mg DAILY YUSUF Administration Budesonide 0.5 mg 03/19/19 23:45 04/06/19 19:53 Pulmicort IH 0.5 mg Q12HRT YUSUF Administration Dextrose 50 ml 03/19/19 23:58 03/21/19 16:29 D50w (25gm) Syringe IV 50 ml PRN PRN Administration Hypoglycemia Famotidine 20 mg 03/22/19 10:00 04/06/19 21:58 Pepcid PO 20 mg BID YUSUF Administration Fentanyl 50 mcg 03/19/19 12:45 03/19/19 13:26 Sublimaze IV 50 mcg Q10MIN PRN Administration ANALGESIA Hydromorphone HCl 0.5 mg 03/19/19 23:58 Dilaudid IV Q3H PRN Pain , Severe (7-10) Hydrophilic Ointment 1 applic 03/19/19 12:45 Vaseline Lip Therapy TP Q2HR PRN Dry Lips Fentanyl Citrate 2,000 mcg in 100 mls @ 2.835 mls/hr 03/19/19 14:00 03/21/19 11:33 Fentanyl Drip Premix IV 0 mcg/kg/hr TITR YUSUF 0 mls/hr Titration Protocol 1 MCG/KG/HR Norepinephrine 4 mg in 250 mls @ 7.5 mls/hr 03/25/19 11:00 03/30/19 23:45 Levophed Drip 4 Mg/Ns 250 Ml IV 0 mcg/min TITR YUSUF 0 mls/hr Titration Protocol 2 MCG/MIN Insulin Human Lispro 0 unit 03/20/19 00:00 04/06/19 20:36 Humalog SUB-Q Not Given Q6HR [facility] Protocol Metoclopramide HCl 5 mg 03/20/19 00:12 Reglan IV Q6H PRN Nausea And Vomiting Metoprolol Tartrate 2.5 mg 03/23/19 13:17 03/24/19 21:20 Lopressor IV 2.5 mg Q2HR PRN Administration HR >150 Multi-Ingred Cream/Lotion/Oil/Oint 1 applic 03/19/19 12:45 Artificial Tears Ophth Oint OU Q4HR PRN Dry Eye(s) Ondansetron HCl 4 mg 03/19/19 23:58 Zofran IV Q8H PRN Nausea And Vomiting Promethazine HCl 25 mg 03/19/19 23:58 Phenergan MA Q6H PRN N/V IF NPO AND NO IV ACCESS Simple Syrup 15 ml 03/22/19 16:03 04/03/19 00:55 Simple Syrup FEEDTUBE 15 ml PRN PRN Administration Hypoglycemia Simple Syrup 30 ml 03/22/19 16:03 Simple Syrup FEEDTUBE PRN PRN Hypoglycemia Sodium Bicarbonate 325 mg 03/22/19 16:03 Sodium Bicarbonate FEEDTUBE PRN PRN For Clogged Feeding Tube Sodium Chloride 10 ml 03/20/19 10:00 04/06/19 22:01 Sodium Chloride Flush Syringe 10 Ml IV 10 ml BID YUSUF Administration Sodium Chloride 10 ml 03/19/19 23:58 Sodium Chloride Flush Syringe 10 Ml IV PRN PRN LINE FLUSH
[2019-04-07 07:06] LABS: Hematocrit 25.6 % (30.3-42.9); Hemoglobin 8.6 gm/dl (10.1-14.3)
[2019-04-07] MEDS: PULMICORT IH SCH ×2 (07:15→19:53)
[2019-04-07 07:23] LABS: BUN/Creatinine Ratio 22; Blood Urea Nitrogen 13 mg/dL (7-17); Calcium 8.1 mg/dL (8.4-10.2); Hemolysis Index 1
[2019-04-07] MEDS: BABY ASPIRIN PO SCH (09:47)
[2019-04-07] MEDS: CORDARONE PO SCH ×2 (09:47→23:02)
[2019-04-07] MEDS: PEPCID PO SCH ×2 (09:47→23:02)
[2019-04-07] MEDS: DILAUDID IV PRN (09:48)
[2019-04-07] MEDS: SODIUM CHLORIDE FLUSH SYRINGE 10 ML IV SCH ×2 (10:45→23:02)
--- NOTE | 2019-04-07 11:49 | Progress Note ---
Assessment and Plan 73 y/o female found unresponsive now intubated and septic, etiology thought secondary to pneumonia with anemia and thrombocytopenia, and persistent fevers found to have multiple DVT's. 1. Trach and Peg at bedside next week 2. Attempt daily PSV trials 3. Will likely need LTACH CCT 31 minutes. Subjective Date of service: 04/07/19 Principal diagnosis: anemia - DVT Interval history: No acute events. Surgery consulted and reviewed their note. Clinically unchanged since I last saw her on Wednesday. at bedside. Objective Vital Signs - 12hr 04/06/19 04/07/19 04/07/19 23:50 00:00 01:00 Temperature 99.1 F Pulse Rate 98 H 101 H Pulse Rate [ Anterior Bilateral Throughout] Respiratory 22 17 Rate Respiratory Rate [Anterior Bilateral Throughout] Blood Pressure 140/71 126/66 O2 Sat by Pulse 95 Oximetry 04/07/19 04/07/19 04/07/19 02:00 03:00 03:20 Temperature Pulse Rate 102 H 99 H 102 H Pulse Rate [ 99 H Anterior Bilateral Throughout] Respiratory 27 H 21 Rate Respiratory 20 Rate [Anterior Bilateral Throughout] Blood Pressure 137/77 137/63 137/77 O2 Sat by Pulse 95 98 Oximetry 04/07/19 04/07/19 04/07/19 03:29 04:00 05:00 Temperature 98.6 F Pulse Rate 96 H 103 H Pulse Rate [ Anterior Bilateral Throughout] Respiratory 16 24 Rate Respiratory Rate [Anterior Bilateral Throughout] Blood Pressure 138/66 147/72 O2 Sat by Pulse 97 96 Oximetry 04/07/19 04/07/19 04/07/19 06:00 07:00 07:04 Temperature Pulse Rate 110 H 108 H 110 H Pulse Rate [ Anterior Bilateral Throughout] Respiratory 26 H 34 H Rate Respiratory Rate [Anterior Bilateral Throughout] Blood Pressure 169/90 166/83 166/83 O2 Sat by Pulse 95 97 98 Oximetry 04/07/19 04/07/19 04/07/19 07:15 08:00 11:10 Temperature 99.6 F Pulse Rate 110 H 104 H Pulse Rate [ 112 H Anterior Bilateral Throughout] Respiratory 22 26 H Rate Respiratory 14 Rate [Anterior Bilateral Throughout] Blood Pressure 148/71 80/33 O2 Sat by Pulse 98 100 Oximetry Constitutional: other (intubated, critically ill on ventilator, awake) Eyes: non-icteric ENT: other (intubated ) Neck: supple Effort: normal Ascultation: Bilateral: diminished breath sounds (grossly clear ), rales (coarse bilat ), other (coarse BS bilaterally) Percussion: Bilateral: not dull, dull Cardiovascular: other (tachy AF, no mrg) Gastrointestinal: normoactive bowel sounds, soft, non-tender, non-distended Integumentary: normal Extremities: anasarca Neurologic: other (awake, alert, L sided hemiparesis, contractures upper extremities) Psychiatric: mood appropriate, affect normal CBC and BMP: 04/07/19 06:50 04/07/19 06:50 ABG, PT/INR, D-dimer: ABG POC ABG pH 7.411 (7.35-7.45) 03/25/19 05:40 POC ABG pO2 83 (80-105) 03/25/19 05:40 POC ABG HCO3 17.7 (22-26 mml/L) 03/25/19 05:40 POC ABG Total CO2 19 (23-27mmol/L) 03/25/19 05:40 POC ABG O2 Sat 97 03/25/19 05:40 PT/INR, D-dimer PT 21.4 Sec. (12.2-14.9) H 03/27/19 14:04 INR 1.90 (0.87-1.13) H 03/27/19 14:04 Abnormal lab findings: Abnormal Labs 03/19/19 03/19/19 03/19/19 12:59 12:59 12:59 WBC RBC 3.44 L Hgb Hct MCV 101 H MCH 34 H MCHC RDW Plt Count 98 L Lymph % (Auto) O'Brien % (Auto) Eos % (Auto) Lymph # O'Brien # Eos # Seg Neutrophils % Seg Neuts % (Manual) 11.0 L Lymphocytes % (Manual) Monocytes % (Manual) 10.0 H Eosinophils % (Manual) Nucleated RBC % 1.0 H Seg Neutrophils # Seg Neutrophils # Man 0.6 L Lymphocytes # (Manual) Monocytes # (Manual) Eosinophils # (Manual) PT INR APTT POC ABG pH POC ABG pCO2 POC ABG pO2 Sodium 149 H Potassium Chloride 109.4 H Carbon Dioxide BUN 51 H Creatinine 3.2 H Glucose 58 L POC Glucose Lactic Acid 7.60 H* Calcium 7.8 L Phosphorus Magnesium 1.60 L Iron TIBC Ferritin Direct Bilirubin AST 75 H Total Creatine Kinase 1499 H Troponin T 0.109 H* Total Protein 5.2 L Albumin 1.7 L Prealbumin LDL Cholesterol Direct 22 L HDL Cholesterol 31 L Vitamin B12 TSH PTH Intact Urine Creatinine Urine Total Protein Vancomycin Trough Digoxin Salicylates Acetaminophen Crossmatch 03/19/19 03/19/19 03/19/19 12:59 12:59 14:48 WBC RBC Hgb Hct MCV MCH MCHC RDW Plt Count Lymph % (Auto) O[place]Brien % (Auto) Eos % (Auto) Lymph # O[place]Brien # Eos # Seg Neutrophils % Seg Neuts % (Manual) Lymphocytes % (Manual) Monocytes % (Manual) Eosinophils % (Manual) Nucleated RBC % Seg Neutrophils # Seg Neutrophils # Man Lymphocytes # (Manual) Monocytes # (Manual) Eosinophils # (Manual) PT INR APTT POC ABG pH POC ABG pCO2 POC ABG pO2 Sodium Potassium Chloride Carbon Dioxide BUN Creatinine Glucose POC Glucose 44 L Lactic Acid Calcium Phosphorus Magnesium Iron TIBC Ferritin Direct Bilirubin AST Total Creatine Kinase Troponin T Total Protein Albumin Prealbumin LDL Cholesterol Direct HDL Cholesterol Vitamin B12 TSH PTH Intact Urine Creatinine Urine Total Protein Vancomycin Trough Digoxin Salicylates < 0.3 L Acetaminophen < 5.0 L Crossmatch 03/19/19 03/19/19 03/19/19 15:33 15:52 16:26 WBC RBC Hgb Hct MCV MCH MCHC RDW Plt Count Lymph % (Auto) O[place]Brien % (Auto) Eos % (Auto) Lymph # O[place]Brien # Eos # Seg Neutrophils % Seg Neuts % (Manual) Lymphocytes % (Manual) Monocytes % (Manual) Eosinophils % (Manual) Nucleated RBC % Seg Neutrophils # Seg Neutrophils # Man Lymphocytes # (Manual) Monocytes # (Manual) Eosinophils # (Manual) PT INR APTT POC ABG pH POC ABG pCO2 POC ABG pO2 Sodium Potassium Chloride Carbon Dioxide BUN Creatinine Glucose POC Glucose 228 H 231 H Lactic Acid Calcium Phosphorus Magnesium Iron TIBC Ferritin Direct Bilirubin AST Total Creatine Kinase Troponin T Total Protein Albumin Prealbumin LDL Cholesterol Direct HDL Cholesterol Vitamin B12 TSH PTH Intact Urine Creatinine 31.8 H Urine Total Protein Vancomycin Trough Digoxin Salicylates Acetaminophen Crossmatch 03/19/19 03/19/19 03/19/19 16:38 17:14 18:43 WBC RBC Hgb Hct MCV MCH MCHC RDW Plt Count Lymph % (Auto) O[place]Brien % (Auto) Eos % (Auto) Lymph # [place]Brien # Eos # Seg Neutrophils % Seg Neuts % (Manual) Lymphocytes % (Manual) Monocytes % (Manual) Eosinophils % (Manual) Nucleated RBC % Seg Neutrophils # Seg Neutrophils # Man Lymphocytes # (Manual) Monocytes # (Manual) Eosinophils # (Manual) PT INR APTT POC ABG pH 7.196 L POC ABG pCO2 30.8 L POC ABG pO2 Sodium Potassium Chloride Carbon Dioxide BUN Creatinine Glucose POC Glucose 235 H Lactic Acid 8.10 H* Calcium Phosphorus Magnesium Iron TIBC Ferritin Direct Bilirubin AST Total Creatine Kinase Troponin T Total Protein Albumin Prealbumin LDL Cholesterol Direct HDL Cholesterol Vitamin B12 TSH PTH Intact Urine Creatinine Urine Total Protein Vancomycin Trough Digoxin Salicylates Acetaminophen Crossmatch 03/19/19 03/19/19 03/19/19 18:52 20:00 20:56 WBC RBC Hgb Hct MCV MCH MCHC RDW Plt Count Lymph % (Auto) [place]Brien % (Auto) Eos % (Auto) Lymph # [place]Brien # Eos # Seg Neutrophils % Seg Neuts % (Manual) Lymphocytes % (Manual) Monocytes % (Manual) Eosinophils % (Manual) Nucleated RBC % Seg Neutrophils # Seg Neutrophils # Man Lymphocytes # (Manual) Monocytes # (Manual) Eosinophils # (Manual) PT INR APTT POC ABG pH POC ABG pCO2 POC ABG pO2 Sodium Potassium Chloride Carbon Dioxide BUN Creatinine Glucose POC Glucose 240 H 117 H Lactic Acid 5.90 H* Calcium Phosphorus Magnesium Iron TIBC Ferritin Direct Bilirubin AST Total Creatine Kinase Troponin T Total Protein Albumin Prealbumin LDL Cholesterol Direct HDL Cholesterol Vitamin B12 TSH PTH Intact Urine Creatinine Urine Total Protein Vancomycin Trough Digoxin Salicylates Acetaminophen Crossmatch 03/19/19 03/19/19 03/19/19 21:19 22:07 23:00 WBC RBC Hgb Hct MCV MCH MCHC RDW Plt Count Lymph % (Auto) [place]Brien % (Auto) Eos % (Auto) Lymph # [place]Brien # Eos # Seg Neutrophils % Seg Neuts % (Manual) Lymphocytes % (Manual) Monocytes % (Manual) Eosinophils % (Manual) Nucleated RBC % Seg Neutrophils # Seg Neutrophils # Man Lymphocytes # (Manual) Monocytes # (Manual) Eosinophils # (Manual) PT INR APTT POC ABG pH POC ABG pCO2 POC ABG pO2 Sodium Potassium Chloride Carbon Dioxide BUN Creatinine Glucose POC Glucose < 40 L 136 H Lactic Acid 6.10 H* Calcium Phosphorus Magnesium Iron TIBC Ferritin Direct Bilirubin AST Total Creatine Kinase Troponin T Total Protein Albumin Prealbumin LDL Cholesterol Direct HDL Cholesterol Vitamin B12 TSH PTH Intact Urine Creatinine Urine Total Protein Vancomycin Trough Digoxin Salicylates Acetaminophen Crossmatch 03/20/19 03/20/19 03/20/19 00:05 01:38 02:23 WBC RBC Hgb Hct MCV MCH MCHC RDW Plt Count Lymph % (Auto) O[place]Brien % (Auto) Eos % (Auto) Lymph # [place]Brien # Eos # Seg Neutrophils % Seg Neuts % (Manual) Lymphocytes % (Manual) Monocytes % (Manual) Eosinophils % (Manual) Nucleated RBC % Seg Neutrophils # Seg Neutrophils # Man Lymphocytes # (Manual) Monocytes # (Manual) Eosinophils # (Manual) PT INR APTT POC ABG pH POC ABG pCO2 POC ABG pO2 Sodium Potassium Chloride Carbon Dioxide BUN Creatinine Glucose POC Glucose 68 L 153 H 127 H Lactic Acid Calcium Phosphorus Magnesium Iron TIBC Ferritin Direct Bilirubin AST Total Creatine Kinase Troponin T Total Protein Albumin Prealbumin LDL Cholesterol Direct HDL Cholesterol Vitamin B12 TSH PTH Intact Urine Creatinine Urine Total Protein Vancomycin Trough Digoxin Salicylates Acetaminophen Crossmatch 03/20/19 03/20/19 03/20/19 03:12 04:31 04:41 WBC RBC Hgb Hct MCV MCH MCHC RDW Plt Count Lymph % (Auto) O[place]Brien % (Auto) Eos % (Auto) Lymph # [place]Brien # Eos # Seg Neutrophils % Seg Neuts % (Manual) Lymphocytes % (Manual) Monocytes % (Manual) Eosinophils % (Manual) Nucleated RBC % Seg Neutrophils # Seg Neutrophils # Man Lymphocytes # (Manual) Monocytes # (Manual) Eosinophils # (Manual) PT INR APTT POC ABG pH POC ABG pCO2 POC ABG pO2 53 L 65 L Sodium Potassium Chloride Carbon Dioxide BUN Creatinine Glucose POC Glucose 109 H Lactic Acid Calcium Phosphorus Magnesium Iron TIBC Ferritin Direct Bilirubin AST Total Creatine Kinase Troponin T Total Protein Albumin Prealbumin LDL Cholesterol Direct HDL Cholesterol Vitamin B12 TSH PTH Intact Urine Creatinine Urine Total Protein Vancomycin Trough Digoxin Salicylates Acetaminophen Crossmatch 03/20/19 03/20/19 03/20/19 05:50 07:29 08:14 WBC RBC Hgb Hct MCV MCH MCHC RDW Plt Count Lymph % (Auto) [place]Brien % (Auto) Eos % (Auto) Lymph # [place]Brien # Eos # Seg Neutrophils % Seg Neuts % (Manual) Lymphocytes % (Manual) Monocytes % (Manual) Eosinophils % (Manual) Nucleated RBC % Seg Neutrophils # Seg Neutrophils # Man Lymphocytes # (Manual) Monocytes # (Manual) Eosinophils # (Manual) PT INR APTT POC ABG pH POC ABG pCO2 POC ABG pO2 Sodium Potassium Chloride Carbon Dioxide BUN Creatinine Glucose 61 L POC Glucose 47 L 153 H Lactic Acid Calcium Phosphorus Magnesium 1.60 L Iron TIBC Ferritin Direct Bilirubin AST Total Creatine Kinase Troponin T Total Protein Albumin Prealbumin LDL Cholesterol Direct HDL Cholesterol Vitamin B12 TSH PTH Intact Urine Creatinine Urine Total Protein Vancomycin Trough Digoxin Salicylates Acetaminophen Crossmatch 03/20/19 03/20/19 03/20/19 08:23 08:23 10:59 WBC RBC Hgb Hct MCV MCH MCHC RDW Plt Count Lymph % (Auto) [place]Brien % (Auto) Eos % (Auto) Lymph # [place]Brien # Eos # Seg Neutrophils % Seg Neuts % (Manual) Lymphocytes % (Manual) Monocytes % (Manual) Eosinophils % (Manual) Nucleated RBC % Seg Neutrophils # Seg Neutrophils # Man Lymphocytes # (Manual) Monocytes # (Manual) Eosinophils # (Manual) PT INR APTT POC ABG pH POC ABG pCO2 POC ABG pO2 Sodium Potassium Chloride Carbon Dioxide BUN Creatinine Glucose 101 H POC Glucose 233 H Lactic Acid 9.70 H* Calcium Phosphorus Magnesium Iron TIBC Ferritin Direct Bilirubin AST Total Creatine Kinase Troponin T Total Protein Albumin Prealbumin 0.052 L LDL Cholesterol Direct HDL Cholesterol Vitamin B12 TSH PTH Intact Urine Creatinine Urine Total Protein Vancomycin Trough Digoxin Salicylates Acetaminophen Crossmatch 03/20/19 03/20/19 03/20/19 12:23 16:10 16:40 WBC RBC Hgb Hct MCV MCH MCHC RDW Plt Count Lymph % (Auto) O[place]Brien % (Auto) Eos % (Auto) Lymph # O[place]Brien # Eos # Seg Neutrophils % Seg Neuts % (Manual) Lymphocytes % (Manual) Monocytes % (Manual) Eosinophils % (Manual) Nucleated RBC % Seg Neutrophils # Seg Neutrophils # Man Lymphocytes # (Manual) Monocytes # (Manual) Eosinophils # (Manual) PT INR APTT POC ABG pH POC ABG pCO2 POC ABG pO2 Sodium Potassium Chloride Carbon Dioxide BUN Creatinine Glucose POC Glucose 135 H 171 H Lactic Acid Calcium Phosphorus Magnesium Iron TIBC Ferritin Direct Bilirubin AST Total Creatine Kinase Troponin T Total Protein Albumin Prealbumin LDL Cholesterol Direct HDL Cholesterol Vitamin B12 TSH PTH Intact Urine Creatinine 53.7 H Urine Total Protein 36 H Vancomycin Trough Digoxin Salicylates Acetaminophen Crossmatch 03/20/19 03/20/19 03/20/19 16:57 17:38 17:50 WBC RBC Hgb Hct MCV MCH MCHC RDW Plt Count Lymph % (Auto) O[place]Brien % (Auto) Eos % (Auto) Lymph # O[place]Brien # Eos # Seg Neutrophils % Seg Neuts % (Manual) Lymphocytes % (Manual) Monocytes % (Manual) Eosinophils % (Manual) Nucleated RBC % Seg Neutrophils # Seg Neutrophils # Man Lymphocytes # (Manual) Monocytes # (Manual) Eosinophils # (Manual) PT INR APTT POC ABG pH POC ABG pCO2 POC ABG pO2 Sodium Potassium Chloride Carbon Dioxide BUN Creatinine Glucose POC Glucose 152 H 147 H Lactic Acid 9.90 H* Calcium Phosphorus Magnesium Iron TIBC Ferritin Direct Bilirubin AST Total Creatine Kinase Troponin T Total Protein Albumin Prealbumin LDL Cholesterol Direct HDL Cholesterol Vitamin B12 TSH PTH Intact Urine Creatinine Urine Total Protein Vancomycin Trough Digoxin Salicylates Acetaminophen Crossmatch 03/20/19 03/20/19 03/20/19 17:50 17:50 17:50 WBC RBC 2.92 L Hgb 10.0 L Hct 29.3 L MCV 100 H MCH 34 H MCHC RDW Plt Count 81 L Lymph % (Auto) O[place]Brien % (Auto) Eos % (Auto) Lymph # O[place]Brien # Eos # Seg Neutrophils % Seg Neuts % (Manual) Lymphocytes % (Manual) Monocytes % (Manual) Eosinophils % (Manual) Nucleated RBC % Seg Neutrophils # Seg Neutrophils # Man Lymphocytes # (Manual) Monocytes # (Manual) Eosinophils # (Manual) PT INR APTT POC ABG pH POC ABG pCO2 POC ABG pO2 Sodium Potassium 2.8 L* D Chloride Carbon Dioxide BUN 30 H Creatinine 1.6 H Glucose 107 H POC Glucose Lactic Acid Calcium 6.9 L Phosphorus 2.00 L Magnesium Iron TIBC Ferritin Direct Bilirubin AST Total Creatine Kinase Troponin T Total Protein Albumin Prealbumin LDL Cholesterol Direct HDL Cholesterol Vitamin B12 TSH PTH Intact 171.6 H Urine Creatinine Urine Total Protein Vancomycin Trough Digoxin Salicylates Acetaminophen Crossmatch 03/20/19 03/21/19 03/21/19 21:12 00:30 04:12 WBC RBC Hgb Hct MCV MCH MCHC RDW Plt Count Lymph % (Auto) O[place]Brien % (Auto) Eos % (Auto) Lymph # [place]Brien # Eos # Seg Neutrophils % Seg Neuts % (Manual) Lymphocytes % (Manual) Monocytes % (Manual) Eosinophils % (Manual) Nucleated RBC % Seg Neutrophils # Seg Neutrophils # Man Lymphocytes # (Manual) Monocytes # (Manual) Eosinophils # (Manual) PT INR APTT POC ABG pH POC ABG pCO2 POC ABG pO2 Sodium Potassium 3.0 L Chloride Carbon Dioxide 21 L BUN Creatinine 1.4 H Glucose 103 H POC Glucose Lactic Acid 8.70 H* 9.40 H* Calcium 6.8 L Phosphorus Magnesium Iron TIBC Ferritin Direct Bilirubin AST Total Creatine Kinase Troponin T Total Protein Albumin Prealbumin LDL Cholesterol Direct HDL Cholesterol Vitamin B12 TSH PTH Intact Urine Creatinine Urine Total Protein Vancomycin Trough Digoxin Salicylates Acetaminophen Crossmatch 03/21/19 03/21/19 03/21/19 04:12 04:12 04:43 WBC RBC 2.84 L Hgb 9.5 L Hct 28.3 L MCV 100 H MCH 33 H MCHC RDW Plt Count 79 L Lymph % (Auto) O[place]Brien % (Auto) Eos % (Auto) Lymph # O[place]Brien # Eos # Seg Neutrophils % Seg Neuts % (Manual) Lymphocytes % (Manual) Monocytes % (Manual) Eosinophils % (Manual) Nucleated RBC % Seg Neutrophils # Seg Neutrophils # Man Lymphocytes # (Manual) Monocytes # (Manual) Eosinophils # (Manual) PT INR APTT POC ABG pH 7.456 H POC ABG pCO2 POC ABG pO2 Sodium Potassium Chloride Carbon Dioxide BUN Creatinine Glucose POC Glucose Lactic Acid 9.50 H* Calcium Phosphorus Magnesium Iron TIBC Ferritin Direct Bilirubin AST Total Creatine Kinase Troponin T Total Protein Albumin Prealbumin LDL Cholesterol Direct HDL Cholesterol Vitamin B12 TSH PTH Intact Urine Creatinine Urine Total Protein Vancomycin Trough Digoxin Salicylates Acetaminophen Crossmatch 03/21/19 03/21/19 03/21/19 08:06 08:08 10:11 WBC RBC Hgb Hct MCV MCH MCHC RDW Plt Count Lymph % (Auto) O[place]Brien % (Auto) Eos % (Auto) Lymph # O[place]Brien # Eos # Seg Neutrophils % Seg Neuts % (Manual) Lymphocytes % (Manual) Monocytes % (Manual) Eosinophils % (Manual) Nucleated RBC % Seg Neutrophils # Seg Neutrophils # Man Lymphocytes # (Manual) Monocytes # (Manual) Eosinophils # (Manual) PT INR APTT POC ABG pH POC ABG pCO2 POC ABG pO2 Sodium Potassium 3.5 L Chloride Carbon Dioxide BUN 22 H Creatinine 1.3 H Glucose POC Glucose 64 L Lactic Acid 8.00 H* Calcium 7.0 L Phosphorus Magnesium Iron TIBC Ferritin Direct Bilirubin AST Total Creatine Kinase Troponin T Total Protein Albumin Prealbumin LDL Cholesterol Direct HDL Cholesterol Vitamin B12 TSH PTH Intact Urine Creatinine Urine Total Protein Vancomycin Trough Digoxin Salicylates Acetaminophen Crossmatch 03/21/19 03/21/19 03/21/19 11:17 12:17 13:37 WBC RBC Hgb Hct MCV MCH MCHC RDW Plt Count Lymph % (Auto) O[place]Brien % (Auto) Eos % (Auto) Lymph # O[place]Brien # Eos # Seg Neutrophils % Seg Neuts % (Manual) Lymphocytes % (Manual) Monocytes % (Manual) Eosinophils % (Manual) Nucleated RBC % Seg Neutrophils # Seg Neutrophils # Man Lymphocytes # (Manual) Monocytes # (Manual) Eosinophils # (Manual) PT INR APTT POC ABG pH POC ABG pCO2 POC ABG pO2 Sodium Potassium Chloride Carbon Dioxide BUN Creatinine Glucose POC Glucose 173 H 110 H Lactic Acid Calcium Phosphorus Magnesium Iron TIBC Ferritin Direct Bilirubin AST Total Creatine Kinase Troponin T 0.033 H D Total Protein Albumin Prealbumin LDL Cholesterol Direct HDL Cholesterol Vitamin B12 TSH PTH Intact Urine Creatinine Urine Total Protein Vancomycin Trough Digoxin Salicylates Acetaminophen Crossmatch 03/21/19 03/21/19 03/21/19 13:37 17:21 18:52 WBC RBC Hgb Hct MCV MCH MCHC RDW Plt Count Lymph % (Auto) O[place]Brien % (Auto) Eos % (Auto) Lymph # [place]Brien # Eos # Seg Neutrophils % Seg Neuts % (Manual) Lymphocytes % (Manual) Monocytes % (Manual) Eosinophils % (Manual) Nucleated RBC % Seg Neutrophils # Seg Neutrophils # Man Lymphocytes # (Manual) Monocytes # (Manual) Eosinophils # (Manual) PT INR APTT POC ABG pH POC ABG pCO2 POC ABG pO2 Sodium Potassium Chloride Carbon Dioxide BUN Creatinine Glucose POC Glucose 130 H 107 H Lactic Acid 6.80 H* Calcium Phosphorus Magnesium Iron TIBC Ferritin Direct Bilirubin AST Total Creatine Kinase Troponin T Total Protein Albumin Prealbumin LDL Cholesterol Direct HDL Cholesterol Vitamin B12 TSH PTH Intact Urine Creatinine Urine Total Protein Vancomycin Trough Digoxin Salicylates Acetaminophen Crossmatch 03/21/19 03/21/19 03/21/19 20:20 22:08 23:05 WBC RBC Hgb Hct MCV MCH MCHC RDW Plt Count Lymph % (Auto) [place]Brien % (Auto) Eos % (Auto) Lymph # [place]Brien # Eos # Seg Neutrophils % Seg Neuts % (Manual) Lymphocytes % (Manual) Monocytes % (Manual) Eosinophils % (Manual) Nucleated RBC % Seg Neutrophils # Seg Neutrophils # Man Lymphocytes # (Manual) Monocytes # (Manual) Eosinophils # (Manual) PT INR APTT POC ABG pH POC ABG pCO2 POC ABG pO2 Sodium Potassium Chloride Carbon Dioxide BUN Creatinine Glucose POC Glucose 106 H 106 H Lactic Acid Calcium Phosphorus Magnesium Iron TIBC Ferritin Direct Bilirubin AST Total Creatine Kinase Troponin T 0.036 H Total Protein Albumin Prealbumin LDL Cholesterol Direct HDL Cholesterol Vitamin B12 TSH PTH Intact Urine Creatinine Urine Total Protein Vancomycin Trough Digoxin Salicylates Acetaminophen Crossmatch 03/21/19 03/21/19 03/22/19 23:05 23:05 00:14 WBC RBC Hgb Hct MCV MCH MCHC RDW Plt Count Lymph % (Auto) [place]Brien % (Auto) Eos % (Auto) Lymph # [place]Brien # Eos # Seg Neutrophils % Seg Neuts % (Manual) Lymphocytes % (Manual) Monocytes % (Manual) Eosinophils % (Manual) Nucleated RBC % Seg Neutrophils # Seg Neutrophils # Man Lymphocytes # (Manual) Monocytes # (Manual) Eosinophils # (Manual) PT INR APTT POC ABG pH POC ABG pCO2 POC ABG pO2 Sodium Potassium Chloride Carbon Dioxide BUN Creatinine Glucose POC Glucose 122 H 109 H Lactic Acid 7.00 H* Calcium Phosphorus Magnesium Iron TIBC Ferritin Direct Bilirubin AST Total Creatine Kinase Troponin T Total Protein Albumin Prealbumin LDL Cholesterol Direct HDL Cholesterol Vitamin B12 TSH PTH Intact Urine Creatinine Urine Total Protein Vancomycin Trough Digoxin Salicylates Acetaminophen Crossmatch 03/22/19 03/22/19 03/22/19 03:10 04:02 05:11 WBC RBC Hgb Hct MCV MCH MCHC RDW Plt Count Lymph % (Auto) [place]Brien % (Auto) Eos % (Auto) Lymph # [place] # Eos # Seg Neutrophils % Seg Neuts % (Manual) Lymphocytes % (Manual) Monocytes % (Manual) Eosinophils % (Manual) Nucleated RBC % Seg Neutrophils # Seg Neutrophils # Man Lymphocytes # (Manual) Monocytes # (Manual) Eosinophils # (Manual) PT INR APTT POC ABG pH 7.487 H POC ABG pCO2 POC ABG pO2 67 L Sodium Potassium Chloride Carbon Dioxide BUN Creatinine Glucose POC Glucose 114 H 112 H Lactic Acid Calcium Phosphorus Magnesium Iron TIBC Ferritin Direct Bilirubin AST Total Creatine Kinase Troponin T Total Protein Albumin Prealbumin LDL Cholesterol Direct HDL Cholesterol Vitamin B12 TSH PTH Intact Urine Creatinine Urine Total Protein Vancomycin Trough Digoxin Salicylates Acetaminophen Crossmatch 03/22/19 03/22/19 03/22/19 06:06 06:10 06:10 WBC RBC Hgb Hct MCV MCH MCHC RDW Plt Count Lymph % (Auto) [place]Brien % (Auto) Eos % (Auto) Lymph # [place] # Eos # Seg Neutrophils % Seg Neuts % (Manual) Lymphocytes % (Manual) Monocytes % (Manual) Eosinophils % (Manual) Nucleated RBC % Seg Neutrophils # Seg Neutrophils # Man Lymphocytes # (Manual) Monocytes # (Manual) Eosinophils # (Manual) PT INR APTT POC ABG pH POC ABG pCO2 POC ABG pO2 Sodium Potassium 3.0 L Chloride Carbon Dioxide BUN Creatinine Glucose POC Glucose 115 H Lactic Acid Calcium 7.0 L Phosphorus Magnesium Iron TIBC Ferritin Direct Bilirubin AST Total Creatine Kinase Troponin T 0.036 H Total Protein Albumin Prealbumin LDL Cholesterol Direct HDL Cholesterol Vitamin B12 TSH PTH Intact Urine Creatinine Urine Total Protein Vancomycin Trough Digoxin Salicylates Acetaminophen Crossmatch 03/22/19 03/22/19 03/22/19 06:10 06:10 11:59 WBC RBC Hgb Hct MCV MCH MCHC RDW Plt Count Lymph % (Auto) [place]Brien % (Auto) Eos % (Auto) Lymph # [place] # Eos # Seg Neutrophils % Seg Neuts % (Manual) Lymphocytes % (Manual) Monocytes % (Manual) Eosinophils % (Manual) Nucleated RBC % Seg Neutrophils # Seg Neutrophils # Man Lymphocytes # (Manual) Monocytes # (Manual) Eosinophils # (Manual) PT INR APTT POC ABG pH POC ABG pCO2 POC ABG pO2 Sodium Potassium Chloride Carbon Dioxide BUN Creatinine Glucose POC Glucose Lactic Acid 4.80 H* 3.80 H* Calcium Phosphorus Magnesium Iron TIBC Ferritin Direct Bilirubin AST Total Creatine Kinase Troponin T Total Protein Albumin Prealbumin LDL Cholesterol Direct HDL Cholesterol Vitamin B12 TSH 7.810 H PTH Intact Urine Creatinine Urine Total Protein Vancomycin Trough Digoxin Salicylates Acetaminophen Crossmatch 03/22/19 03/22/19 03/22/19 13:45 13:45 13:45 WBC RBC Hgb 8.3 L Hct 24.5 L MCV MCH MCHC RDW Plt Count 56 L Lymph % (Auto) [place]Brien % (Auto) Eos % (Auto) Lymph # [place] # Eos # Seg Neutrophils % Seg Neuts % (Manual) Lymphocytes % (Manual) Monocytes % (Manual) Eosinophils % (Manual) Nucleated RBC % Seg Neutrophils # Seg Neutrophils # Man Lymphocytes # (Manual) Monocytes # (Manual) Eosinophils # (Manual) PT 21.4 H INR 1.90 H APTT 43.2 H POC ABG pH POC ABG pCO2 POC ABG pO2 Sodium Potassium Chloride Carbon Dioxide BUN Creatinine Glucose POC Glucose Lactic Acid 3.50 H* Calcium Phosphorus Magnesium Iron TIBC Ferritin Direct Bilirubin AST Total Creatine Kinase Troponin T Total Protein Albumin Prealbumin LDL Cholesterol Direct HDL Cholesterol Vitamin B12 TSH PTH Intact Urine Creatinine Urine Total Protein Vancomycin Trough Digoxin Salicylates Acetaminophen Crossmatch 03/22/19 03/23/19 03/23/19 22:20 01:06 04:50 WBC 12.1 H RBC 2.36 L Hgb 7.7 L Hct 22.9 L MCV MCH 33 H MCHC RDW Plt Count 37 L Lymph % (Auto) [place]Brien % (Auto) Eos % (Auto) Lymph # [place] # Eos # Seg Neutrophils % Seg Neuts % (Manual) 83.0 H Lymphocytes % (Manual) 8.0 L Monocytes % (Manual) Eosinophils % (Manual) Nucleated RBC % Seg Neutrophils # Seg Neutrophils # Man 10.0 H Lymphocytes # (Manual) 1.0 L Monocytes # (Manual) Eosinophils # (Manual) PT INR APTT POC ABG pH POC ABG pCO2 POC ABG pO2 Sodium Potassium Chloride Carbon Dioxide BUN Creatinine Glucose POC Glucose Lactic Acid 3.60 H* 2.70 H* Calcium Phosphorus Magnesium Iron TIBC Ferritin Direct Bilirubin AST Total Creatine Kinase Troponin T Total Protein Albumin Prealbumin LDL Cholesterol Direct HDL Cholesterol Vitamin B12 TSH PTH Intact Urine Creatinine Urine Total Protein Vancomycin Trough Digoxin Salicylates Acetaminophen Crossmatch 03/23/19 03/23/19 03/23/19 04:50 05:25 05:53 WBC RBC Hgb Hct MCV MCH MCHC RDW Plt Count Lymph % (Auto) O'Brien % (Auto) Eos % (Auto) Lymph # O'Brien # Eos # Seg Neutrophils % Seg Neuts % (Manual) Lymphocytes % (Manual) Monocytes % (Manual) Eosinophils % (Manual) Nucleated RBC % Seg Neutrophils # Seg Neutrophils # Man Lymphocytes # (Manual) Monocytes # (Manual) Eosinophils # (Manual) PT INR APTT POC ABG pH POC ABG pCO2 33.3 L POC ABG pO2 Sodium Potassium 3.5 L Chloride 108.3 H Carbon Dioxide BUN Creatinine Glucose POC Glucose 68 L Lactic Acid Calcium 7.3 L Phosphorus Magnesium Iron TIBC Ferritin Direct Bilirubin AST Total Creatine Kinase Troponin T Total Protein Albumin Prealbumin LDL Cholesterol Direct HDL Cholesterol Vitamin B12 TSH PTH Intact Urine Creatinine Urine Total Protein Vancomycin Trough Digoxin Salicylates Acetaminophen Crossmatch 03/24/19 03/24/19 03/24/19 03:26 05:50 05:57 WBC RBC Hgb Hct MCV MCH MCHC RDW Plt Count Lymph % (Auto) O'Brien % (Auto) Eos % (Auto) Lymph # O'Brien # Eos # Seg Neutrophils % Seg Neuts % (Manual) Lymphocytes % (Manual) Monocytes % (Manual) Eosinophils % (Manual) Nucleated RBC % Seg Neutrophils # Seg Neutrophils # Man Lymphocytes # (Manual) Monocytes # (Manual) Eosinophils # (Manual) PT INR APTT POC ABG pH POC ABG pCO2 POC ABG pO2 78 L Sodium Potassium 3.4 L Chloride 116.5 H Carbon Dioxide 21 L BUN Creatinine 0.5 L Glucose 105 H POC Glucose 127 H Lactic Acid Calcium 6.4 L Phosphorus Magnesium Iron TIBC Ferritin Direct Bilirubin AST Total Creatine Kinase Troponin T Total Protein Albumin Prealbumin LDL Cholesterol Direct HDL Cholesterol Vitamin B12 TSH PTH Intact Urine Creatinine Urine Total Protein Vancomycin Trough Digoxin Salicylates Acetaminophen Crossmatch 03/24/19 03/24/19 03/24/19 06:00 11:30 12:25 WBC 13.6 H RBC 2.08 L Hgb 6.9 L Hct 20.5 L MCV 99 H MCH 33 H MCHC RDW Plt Count 50 L Lymph % (Auto) 8.1 L O'Brien % (Auto) 10.0 H Eos % (Auto) Lymph # 1.1 L O'Brien # 1.4 H Eos # Seg Neutrophils % 80.7 H Seg Neuts % (Manual) Lymphocytes % (Manual) Monocytes % (Manual) Eosinophils % (Manual) Nucleated RBC % Seg Neutrophils # 11.0 H Seg Neutrophils # Man Lymphocytes # (Manual) Monocytes # (Manual) Eosinophils # (Manual) PT INR APTT POC ABG pH POC ABG pCO2 POC ABG pO2 Sodium Potassium Chloride Carbon Dioxide BUN Creatinine Glucose POC Glucose 111 H Lactic Acid Calcium Phosphorus Magnesium Iron TIBC Ferritin Direct Bilirubin AST Total Creatine Kinase Troponin T Total Protein Albumin Prealbumin LDL Cholesterol Direct HDL Cholesterol Vitamin B12 TSH PTH Intact Urine Creatinine Urine Total Protein Vancomycin Trough Digoxin Salicylates Acetaminophen Crossmatch See Detail 03/24/19 03/25/19 03/25/19 14:25 05:20 10:00 WBC 13.4 H RBC 2.54 L Hgb 8.1 L Hct 24.3 L MCV MCH MCHC RDW 17.3 H Plt Count 44 L Lymph % (Auto) O'Brien % (Auto) Eos % (Auto) Lymph # O'Brien # Eos # Seg Neutrophils % Seg Neuts % (Manual) Lymphocytes % (Manual) Monocytes % (Manual) Eosinophils % (Manual) Nucleated RBC % Seg Neutrophils # Seg Neutrophils # Man Lymphocytes # (Manual) Monocytes # (Manual) Eosinophils # (Manual) PT INR APTT POC ABG pH POC ABG pCO2 POC ABG pO2 Sodium Potassium Chloride Carbon Dioxide BUN Creatinine Glucose POC Glucose 111 H Lactic Acid Calcium Phosphorus Magnesium Iron 32 L TIBC 75 L Ferritin Direct Bilirubin AST Total Creatine Kinase Troponin T Total Protein Albumin Prealbumin LDL Cholesterol Direct HDL Cholesterol Vitamin B12 TSH PTH Intact Urine Creatinine Urine Total Protein Vancomycin Trough Digoxin Salicylates Acetaminophen Crossmatch 03/25/19 03/25/19 03/25/19 10:11 10:11 23:11 WBC RBC Hgb Hct MCV MCH MCHC RDW Plt Count Lymph % (Auto) O'Brien % (Auto) Eos % (Auto) Lymph # O'Brien # Eos # Seg Neutrophils % Seg Neuts % (Manual) Lymphocytes % (Manual) Monocytes % (Manual) Eosinophils % (Manual) Nucleated RBC % Seg Neutrophils # Seg Neutrophils # Man Lymphocytes # (Manual) Monocytes # (Manual) Eosinophils # (Manual) PT INR APTT POC ABG pH POC ABG pCO2 POC ABG pO2 Sodium Potassium Chloride 112.0 H Carbon Dioxide BUN 20 H Creatinine 0.6 L Glucose POC Glucose 112 H Lactic Acid Calcium 7.2 L Phosphorus Magnesium Iron TIBC Ferritin Direct Bilirubin AST Total Creatine Kinase Troponin T Total Protein Albumin Prealbumin LDL Cholesterol Direct HDL Cholesterol Vitamin B12 > 2000 H TSH PTH Intact Urine Creatinine Urine Total Protein Vancomycin Trough Digoxin Salicylates Acetaminophen Crossmatch 03/26/19 03/26/19 03/26/19 05:00 05:00 05:16 WBC 14.4 H RBC 2.74 L Hgb 8.9 L Hct 25.7 L MCV MCH 33 H MCHC 35 H RDW 16.9 H Plt Count 60 L Lymph % (Auto) O'Brien % (Auto) Eos % (Auto) Lymph # O'Brien # Eos # Seg Neutrophils % Seg Neuts % (Manual) 83.0 H Lymphocytes % (Manual) 5.0 L Monocytes % (Manual) Eosinophils % (Manual) 5.0 H Nucleated RBC % 1.0 H Seg Neutrophils # Seg Neutrophils # Man 12.0 H Lymphocytes # (Manual) 0.7 L Monocytes # (Manual) 0.9 H Eosinophils # (Manual) 0.7 H PT INR APTT POC ABG pH POC ABG pCO2 POC ABG pO2 Sodium Potassium 3.1 L Chloride 110.4 H Carbon Dioxide BUN 22 H Creatinine Glucose 101 H POC Glucose 114 H Lactic Acid Calcium 7.4 L Phosphorus Magnesium Iron TIBC Ferritin Direct Bilirubin AST Total Creatine Kinase Troponin T Total Protein Albumin Prealbumin LDL Cholesterol Direct HDL Cholesterol Vitamin B12 TSH PTH Intact Urine Creatinine Urine Total Protein Vancomycin Trough Digoxin Salicylates Acetaminophen Crossmatch 03/26/19 03/27/19 03/27/19 11:55 09:04 09:04 WBC RBC Hgb Hct MCV MCH MCHC RDW Plt Count Lymph % (Auto) O'Brien % (Auto) Eos % (Auto) Lymph # O'Brien # Eos # Seg Neutrophils % Seg Neuts % (Manual) Lymphocytes % (Manual) Monocytes % (Manual) Eosinophils % (Manual) Nucleated RBC % Seg Neutrophils # Seg Neutrophils # Man Lymphocytes # (Manual) Monocytes # (Manual) Eosinophils # (Manual) PT INR APTT POC ABG pH POC ABG pCO2 POC ABG pO2 Sodium Potassium 3.2 L Chloride Carbon Dioxide BUN 22 H Creatinine Glucose POC Glucose 121 H Lactic Acid Calcium 7.7 L Phosphorus Magnesium Iron TIBC Ferritin Direct Bilirubin AST Total Creatine Kinase Troponin T Total Protein Albumin Prealbumin LDL Cholesterol Direct HDL Cholesterol Vitamin B12 TSH PTH Intact Urine Creatinine Urine Total Protein Vancomycin Trough 23.0 H Digoxin Salicylates Acetaminophen Crossmatch 03/27/19 03/27/19 03/27/19 09:04 13:31 14:04 WBC 14.8 H RBC 2.52 L Hgb 8.0 L 8.3 L Hct 24.0 L 25.3 L MCV MCH MCHC RDW 17.0 H Plt Count 89 L 91 L Lymph % (Auto) O'Brien % (Auto) 8.8 H Eos % (Auto) Lymph # O'Brien # 1.3 H Eos # Seg Neutrophils % 70.7 H Seg Neuts % (Manual) Lymphocytes % (Manual) Monocytes % (Manual) Eosinophils % (Manual) Nucleated RBC % Seg Neutrophils # 10.5 H Seg Neutrophils # Man Lymphocytes # (Manual) Monocytes # (Manual) Eosinophils # (Manual) PT INR APTT POC ABG pH POC ABG pCO2 POC ABG pO2 Sodium Potassium Chloride Carbon Dioxide BUN Creatinine Glucose POC Glucose Lactic Acid Calcium Phosphorus Magnesium Iron TIBC Ferritin Direct Bilirubin 0.3 H AST Total Creatine Kinase Troponin T Total Protein 4.9 L Albumin 1.3 L Prealbumin LDL Cholesterol Direct HDL Cholesterol Vitamin B12 TSH PTH Intact Urine Creatinine Urine Total Protein Vancomycin Trough Digoxin Salicylates Acetaminophen Crossmatch 03/27/19 03/27/19 03/28/19 14:04 23:51 01:05 WBC 14.4 H RBC 2.44 L Hgb 8.0 L Hct 24.5 L MCV 100 H MCH 33 H MCHC RDW 18.5 H Plt Count 86 L Lymph % (Auto) O'Brien % (Auto) Eos % (Auto) Lymph # O'Brien # Eos # Seg Neutrophils % Seg Neuts % (Manual) 84.0 H Lymphocytes % (Manual) 10.0 L Monocytes % (Manual) Eosinophils % (Manual) Nucleated RBC % Seg Neutrophils # Seg Neutrophils # Man 12.1 H Lymphocytes # (Manual) Monocytes # (Manual) Eosinophils # (Manual) PT 21.4 H INR 1.90 H APTT 42.2 H POC ABG pH POC ABG pCO2 POC ABG pO2 Sodium Potassium Chloride Carbon Dioxide BUN Creatinine Glucose POC Glucose 130 H Lactic Acid Calcium Phosphorus Magnesium Iron TIBC Ferritin Direct Bilirubin AST Total Creatine Kinase Troponin T Total Protein Albumin Prealbumin LDL Cholesterol Direct HDL Cholesterol Vitamin B12 TSH PTH Intact Urine Creatinine Urine Total Protein Vancomycin Trough Digoxin Salicylates Acetaminophen Crossmatch 03/28/19 03/28/19 03/28/19 02:51 04:45 07:31 WBC RBC Hgb Hct MCV MCH MCHC RDW Plt Count Lymph % (Auto) O'Brien % (Auto) Eos % (Auto) Lymph # O'Brien # Eos # Seg Neutrophils % Seg Neuts % (Manual) Lymphocytes % (Manual) Monocytes % (Manual) Eosinophils % (Manual) Nucleated RBC % Seg Neutrophils # Seg Neutrophils # Man Lymphocytes # (Manual) Monocytes # (Manual) Eosinophils # (Manual) PT INR APTT 75.0 H* POC ABG pH POC ABG pCO2 POC ABG pO2 Sodium Potassium Chloride Carbon Dioxide BUN 22 H Creatinine Glucose POC Glucose Lactic Acid Calcium 7.8 L Phosphorus Magnesium Iron TIBC Ferritin 448.3 H Direct Bilirubin AST Total Creatine Kinase Troponin T Total Protein Albumin Prealbumin LDL Cholesterol Direct HDL Cholesterol Vitamin B12 TSH PTH Intact Urine Creatinine Urine Total Protein Vancomycin Trough Digoxin Salicylates Acetaminophen Crossmatch 03/28/19 03/29/19 03/29/19 14:30 04:40 04:40 WBC RBC 2.17 L Hgb 7.1 L Hct 20.8 L MCV MCH 33 H MCHC RDW 17.1 H Plt Count 122 L Lymph % (Auto) O'Brien % (Auto) Eos % (Auto) Lymph # O'Brien # Eos # Seg Neutrophils % Seg Neuts % (Manual) Lymphocytes % (Manual) Monocytes % (Manual) Eosinophils % (Manual) Nucleated RBC % Seg Neutrophils # Seg Neutrophils # Man Lymphocytes # (Manual) Monocytes # (Manual) Eosinophils # (Manual) PT INR APTT 70.3 H* POC ABG pH POC ABG pCO2 POC ABG pO2 Sodium Potassium Chloride Carbon Dioxide 31 H BUN 22 H Creatinine 0.5 L Glucose POC Glucose Lactic Acid Calcium 8.0 L Phosphorus Magnesium Iron TIBC Ferritin Direct Bilirubin AST Total Creatine Kinase Troponin T Total Protein 5.0 L Albumin 1.4 L Prealbumin LDL Cholesterol Direct HDL Cholesterol Vitamin B12 TSH PTH Intact Urine Creatinine Urine Total Protein Vancomycin Trough Digoxin Salicylates Acetaminophen Crossmatch 03/29/19 03/29/19 03/29/19 04:40 04:40 11:50 WBC RBC Hgb Hct MCV MCH MCHC RDW Plt Count Lymph % (Auto) O'Brien % (Auto) Eos % (Auto) Lymph # O'Brien # Eos # Seg Neutrophils % Seg Neuts % (Manual) Lymphocytes % (Manual) Monocytes % (Manual) Eosinophils % (Manual) Nucleated RBC % Seg Neutrophils # Seg Neutrophils # Man Lymphocytes # (Manual) Monocytes # (Manual) Eosinophils # (Manual) PT INR APTT 71.8 H* POC ABG pH POC ABG pCO2 POC ABG pO2 Sodium Potassium Chloride Carbon Dioxide BUN Creatinine Glucose POC Glucose 118 H Lactic Acid Calcium Phosphorus Magnesium Iron TIBC Ferritin Direct Bilirubin AST Total Creatine Kinase Troponin T Total Protein Albumin Prealbumin LDL Cholesterol Direct HDL Cholesterol Vitamin B12 TSH PTH Intact Urine Creatinine Urine Total Protein Vancomycin Trough Digoxin 3.5 H* Salicylates Acetaminophen Crossmatch 03/29/19 03/29/19 03/29/19 16:20 16:20 21:10 WBC RBC Hgb Hct MCV MCH MCHC RDW Plt Count Lymph % (Auto) O'Brien % (Auto) Eos % (Auto) Lymph # O'Brien # Eos # Seg Neutrophils % Seg Neuts % (Manual) Lymphocytes % (Manual) Monocytes % (Manual) Eosinophils % (Manual) Nucleated RBC % Seg Neutrophils # Seg Neutrophils # Man Lymphocytes # (Manual) Monocytes # (Manual) Eosinophils # (Manual) PT INR APTT 61.5 H* 112.6 H* POC ABG pH POC ABG pCO2 POC ABG pO2 Sodium Potassium Chloride Carbon Dioxide BUN Creatinine Glucose POC Glucose Lactic Acid Calcium Phosphorus Magnesium Iron TIBC Ferritin Direct Bilirubin AST Total Creatine Kinase Troponin T Total Protein Albumin Prealbumin LDL Cholesterol Direct HDL Cholesterol Vitamin B12 TSH PTH Intact Urine Creatinine Urine Total Protein Vancomycin Trough Digoxin 2.6 H* Salicylates Acetaminophen Crossmatch 03/29/19 03/30/19 03/30/19 22:30 04:42 04:42 WBC RBC Hgb 6.4 L Hct 18.9 L* MCV MCH MCHC RDW Plt Count Lymph % (Auto) O'Brien % (Auto) Eos % (Auto) Lymph # O'Brien # Eos # Seg Neutrophils % Seg Neuts % (Manual) Lymphocytes % (Manual) Monocytes % (Manual) Eosinophils % (Manual) Nucleated RBC % Seg Neutrophils # Seg Neutrophils # Man Lymphocytes # (Manual) Monocytes # (Manual) Eosinophils # (Manual) PT INR APTT 103.8 H* POC ABG pH POC ABG pCO2 POC ABG pO2 Sodium Potassium Chloride Carbon Dioxide BUN Creatinine Glucose POC Glucose Lactic Acid Calcium Phosphorus Magnesium Iron TIBC Ferritin Direct Bilirubin AST Total Creatine Kinase Troponin T Total Protein Albumin Prealbumin LDL Cholesterol Direct HDL Cholesterol Vitamin B12 TSH PTH Intact Urine Creatinine Urine Total Protein Vancomycin Trough Digoxin 2.6 H* Salicylates Acetaminophen Crossmatch 03/30/19 03/30/19 03/30/19 07:04 07:58 11:15 WBC RBC 2.66 L Hgb 8.5 L Hct 25.3 L D MCV MCH MCHC RDW 17.4 H Plt Count Lymph % (Auto) O'Brien % (Auto) Eos % (Auto) Lymph # O'Brien # Eos # Seg Neutrophils % Seg Neuts % (Manual) Lymphocytes % (Manual) Monocytes % (Manual) Eosinophils % (Manual) Nucleated RBC % Seg Neutrophils # Seg Neutrophils # Man Lymphocytes # (Manual) Monocytes # (Manual) Eosinophils # (Manual) PT INR APTT 50.5 H POC ABG pH POC ABG pCO2 POC ABG pO2 Sodium Potassium Chloride Carbon Dioxide BUN Creatinine Glucose POC Glucose Lactic Acid Calcium Phosphorus Magnesium Iron TIBC Ferritin Direct Bilirubin AST Total Creatine Kinase Troponin T Total Protein Albumin Prealbumin LDL Cholesterol Direct HDL Cholesterol Vitamin B12 TSH PTH Intact Urine Creatinine Urine Total Protein Vancomycin Trough Digoxin Salicylates Acetaminophen Crossmatch See Detail 03/30/19 03/30/19 03/30/19 11:36 17:40 22:51 WBC RBC 2.48 L Hgb 7.9 L Hct 23.9 L MCV MCH MCHC RDW 17.7 H Plt Count Lymph % (Auto) O'Brien % (Auto) Eos % (Auto) Lymph # O'Brien # Eos # Seg Neutrophils % Seg Neuts % (Manual) Lymphocytes % (Manual) Monocytes % (Manual) Eosinophils % (Manual) Nucleated RBC % Seg Neutrophils # Seg Neutrophils # Man Lymphocytes # (Manual) Monocytes # (Manual) Eosinophils # (Manual) PT INR APTT POC ABG pH POC ABG pCO2 POC ABG pO2 Sodium Potassium Chloride Carbon Dioxide BUN Creatinine Glucose POC Glucose 129 H 112 H Lactic Acid Calcium Phosphorus Magnesium Iron TIBC Ferritin Direct Bilirubin AST Total Creatine Kinase Troponin T Total Protein Albumin Prealbumin LDL Cholesterol Direct HDL Cholesterol Vitamin B12 TSH PTH Intact Urine Creatinine Urine Total Protein Vancomycin Trough Digoxin Salicylates Acetaminophen Crossmatch 03/30/19 03/31/19 03/31/19 23:47 05:00 11:35 WBC RBC Hgb 8.0 L Hct 23.7 L MCV MCH MCHC RDW Plt Count Lymph % (Auto) O'Brien % (Auto) Eos % (Auto) Lymph # O'Brien # Eos # Seg Neutrophils % Seg Neuts % (Manual) Lymphocytes % (Manual) Monocytes % (Manual) Eosinophils % (Manual) Nucleated RBC % Seg Neutrophils # Seg Neutrophils # Man Lymphocytes # (Manual) Monocytes # (Manual) Eosinophils # (Manual) PT INR APTT POC ABG pH POC ABG pCO2 POC ABG pO2 Sodium Potassium Chloride Carbon Dioxide BUN Creatinine Glucose POC Glucose 112 H 106 H Lactic Acid Calcium Phosphorus Magnesium Iron TIBC Ferritin Direct Bilirubin AST Total Creatine Kinase Troponin T Total Protein Albumin Prealbumin LDL Cholesterol Direct HDL Cholesterol Vitamin B12 TSH PTH Intact Urine Creatinine Urine Total Protein Vancomycin Trough Digoxin Salicylates Acetaminophen Crossmatch 04/01/19 04/02/19 04/03/19 11:38 08:33 06:15 WBC RBC 2.11 L Hgb 7.8 L 6.8 L Hct 23.1 L 20.5 L MCV 98 H MCH MCHC RDW 17.6 H Plt Count Lymph % (Auto) O'Brien % (Auto) 12.1 H Eos % (Auto) 7.4 H Lymph # O'Brien # Eos # Seg Neutrophils % Seg Neuts % (Manual) Lymphocytes % (Manual) Monocytes % (Manual) Eosinophils % (Manual) Nucleated RBC % Seg Neutrophils # Seg Neutrophils # Man Lymphocytes # (Manual) Monocytes # (Manual) Eosinophils # (Manual) PT INR APTT POC ABG pH POC ABG pCO2 POC ABG pO2 Sodium Potassium Chloride Carbon Dioxide BUN Creatinine Glucose POC Glucose 136 H Lactic Acid Calcium Phosphorus Magnesium Iron TIBC Ferritin Direct Bilirubin AST Total Creatine Kinase Troponin T Total Protein Albumin Prealbumin LDL Cholesterol Direct HDL Cholesterol Vitamin B12 TSH PTH Intact Urine Creatinine Urine Total Protein Vancomycin Trough Digoxin Salicylates Acetaminophen Crossmatch 04/03/19 04/04/19 04/04/19 08:22 05:20 05:20 WBC RBC 2.27 L Hgb 7.3 L 7.3 L Hct 21.9 L 22.0 L MCV MCH MCHC RDW 16.8 H Plt Count Lymph % (Auto) O'Brien % (Auto) 12.2 H Eos % (Auto) 6.6 H Lymph # O'Brien # 1.0 H Eos # 0.5 H Seg Neutrophils % Seg Neuts % (Manual) Lymphocytes % (Manual) Monocytes % (Manual) Eosinophils % (Manual) Nucleated RBC % Seg Neutrophils # Seg Neutrophils # Man Lymphocytes # (Manual) Monocytes # (Manual) Eosinophils # (Manual) PT INR APTT POC ABG pH POC ABG pCO2 POC ABG pO2 Sodium Potassium Chloride Carbon Dioxide BUN Creatinine 0.4 L Glucose POC Glucose Lactic Acid Calcium 7.9 L Phosphorus 2.20 L Magnesium 1.40 L Iron TIBC Ferritin Direct Bilirubin AST Total Creatine Kinase Troponin T Total Protein Albumin Prealbumin LDL Cholesterol Direct HDL Cholesterol Vitamin B12 TSH PTH Intact Urine Creatinine Urine Total Protein Vancomycin Trough Digoxin Salicylates Acetaminophen Crossmatch 04/05/19 04/05/19 04/05/19 03:30 03:30 06:51 WBC RBC 2.09 L Hgb 6.7 L Hct 20.1 L MCV MCH MCHC RDW 16.6 H Plt Count Lymph % (Auto) O'Brien % (Auto) 12.6 H Eos % (Auto) 6.2 H Lymph # O'Brien # 1.0 H Eos # 0.5 H Seg Neutrophils % Seg Neuts % (Manual) Lymphocytes % (Manual) Monocytes % (Manual) Eosinophils % (Manual) Nucleated RBC % Seg Neutrophils # Seg Neutrophils # Man Lymphocytes # (Manual) Monocytes # (Manual) Eosinophils # (Manual) PT INR APTT POC ABG pH POC ABG pCO2 POC ABG pO2 Sodium Potassium Chloride Carbon Dioxide BUN Creatinine 0.4 L Glucose POC Glucose Lactic Acid Calcium 7.6 L Phosphorus Magnesium Iron TIBC Ferritin Direct Bilirubin AST Total Creatine Kinase Troponin T Total Protein Albumin Prealbumin LDL Cholesterol Direct HDL Cholesterol Vitamin B12 TSH PTH Intact Urine Creatinine Urine Total Protein Vancomycin Trough Digoxin Salicylates Acetaminophen Crossmatch See Detail 04/05/19 04/05/19 04/06/19 13:07 23:50 09:36 WBC RBC 2.56 L Hgb 8.4 L Hct 23.5 L MCV MCH 33 H MCHC 36 H RDW 17.9 H Plt Count Lymph % (Auto) O'Brien % (Auto) Eos % (Auto) Lymph # O'Brien # Eos # Seg Neutrophils % Seg Neuts % (Manual) Lymphocytes % (Manual) Monocytes % (Manual) Eosinophils % (Manual) Nucleated RBC % Seg Neutrophils # Seg Neutrophils # Man Lymphocytes # (Manual) Monocytes # (Manual) Eosinophils # (Manual) PT INR APTT POC ABG pH POC ABG pCO2 POC ABG pO2 Sodium Potassium Chloride Carbon Dioxide BUN Creatinine Glucose POC Glucose 106 H 109 H Lactic Acid Calcium Phosphorus Magnesium Iron TIBC Ferritin Direct Bilirubin AST Total Creatine Kinase Troponin T Total Protein Albumin Prealbumin LDL Cholesterol Direct HDL Cholesterol Vitamin B12 TSH PTH Intact Urine Creatinine Urine Total Protein Vancomycin Trough Digoxin Salicylates Acetaminophen Crossmatch 04/07/19 04/07/19 06:50 06:50 WBC RBC Hgb 8.6 L Hct 25.6 L MCV MCH MCHC RDW Plt Count Lymph % (Auto) O'Brien % (Auto) Eos % (Auto) Lymph # O'Brien # Eos # Seg Neutrophils % Seg Neuts % (Manual) Lymphocytes % (Manual) Monocytes % (Manual) Eosinophils % (Manual) Nucleated RBC % Seg Neutrophils # Seg Neutrophils # Man Lymphocytes # (Manual) Monocytes # (Manual) Eosinophils # (Manual) PT INR APTT POC ABG pH POC ABG pCO2 POC ABG pO2 Sodium Potassium Chloride Carbon Dioxide BUN Creatinine 0.6 L Glucose POC Glucose Lactic Acid Calcium 8.1 L Phosphorus Magnesium Iron TIBC Ferritin Direct Bilirubin AST Total Creatine Kinase Troponin T Total Protein Albumin Prealbumin LDL Cholesterol Direct HDL Cholesterol Vitamin B12 TSH PTH Intact Urine Creatinine Urine Total Protein Vancomycin Trough Digoxin Salicylates Acetaminophen Crossmatch
--- NOTE | 2019-04-07 13:26 | Progress Note ---
Assessment and Plan Cultures/ID related labs: 04/05 BCx - NGTD 04/04 Sputum - Stenotrophomonas maltophila. 03/27 tracheal aspirate - heavy neutrophils, usual resp maday Blood culture 03/19/2019 negative. Urine culture 03/19/2019 negative. 03/23/2019 tracheal aspirate culture: Usual resp maday Assessment: 73 y/o female with history of dementia, prior CVA, on home hospice admitted on 03/20/2019 brought by EMS due to altered mental status: 1) Sepsis with septic shock: Resolved 2) Bilateral pneumonia: Her radiography is largely unchanged. Her sputum cultures have grown S. maltophila, which is both a common infection in intubated patients as well as a common colonizer of tubes. She has recurrent overnight fevers, which have improved since the cessation of antibiotics, but are ongoing. Given her general frailty and duration of intubation and upcoming trach placement, I would recommend a 7 day course of Bactrim. 3) Acute encephalopathy: CT head without contrast shows encephalomalacia in the entire right cerebral hemisphere, volume loss in the left cerebral hemisphere, no acute parenchymal lesion in the brain. 4) Acute respiratory failure: remains intubated, on the vent. Responsive to commands today. 5) HA: improved. 6) Persistent fevers - Improved with cessation of antibiotics.Continue to monitor, occasional recurrences. 7) DVTs - DVT of RIJ at catheter site as well as R common femoral, and a superficial thrombus in R greater saphenous. IVC filter placed We will sign off for now. Please don't hesitate to call if you have any questions. Recommendations: start Bactrim PO DS BID (stop date: 04/14/19) monitor closely Guarded prognosis, was on home hospice prior to admission Sandra Johns MD [facility] C: [phone] O: [phone] F: [phone] Subjective Date of service: 04/07/19 Principal diagnosis: anemia - DVT Interval history: Remains intubated. No change today. Sputum cultures with Stenotrophomonas maltophila. Objective - Exam Narrative Exam: Constitutional: asleep, no distress, weakly following commands Head, Ears, Nose: Normocephalic, atraumatic. External ears, nose normal Eyes: Conjunctivae/corneas clear. No icterus. No ptosis. Neck: Supple, no meningeal signs Oral: Intubated Cardiovascular: S1, S2 normal. Normal rhythm Respiratory: Good air entry, clear to auscultation bilaterally GI: Soft, non-tender; bowel sounds normal. No peritoneal signs Musculoskeletal: No pedal edema Skin: No rash or abscess Hem/Lymphatic: No palpable cervical or supraclavicular nodes. No lymphangitis Psych: no agitation Neurological: weak, 4/5 strength extremities. L sided decerebrate positioning, however R side normal. - Constitutional Vitals: Vital Signs Temp Pulse Resp BP Pulse Ox 99.5 F 104 H 26 H 80/33 100 04/07/19 12:00 04/07/19 11:10 04/07/19 11:10 04/07/19 11:10 04/07/19 11:10 Temperature -Last 24 Hours Temperature 99.5 F Temperature 99.6 F Temperature 98.6 F Temperature 99.1 F Temperature 100.4 F Temperature 101.1 F - Labs CBC & Chem 7: 04/07/19 06:50 04/07/19 06:50 Labs: Abnormal lab results 04/07/19 04/07/19 04/07/19 Range/Units 06:50 06:50 11:37 Hgb 8.6 L (10.1-14.3) gm/dl Hct 25.6 L (30.3-42.9) % Creatinine 0.6 L (0.7-1.2) mg/dL POC Glucose 118 H (70-105) Calcium 8.1 L (8.4-10.2) mg/dL
--- NOTE | 2019-04-07 14:11 | Progress Note ---
Assessment and Plan Acute metabolic encephalopathy, - cont supportive care, CT head negative - patient now appears at her baseline per the family Acute hypoxic respiratory s/p ETT placement: consulted CCM, difficult to wean off vent, scheduled nebs - surgery consulted for trach and PEG - planned for next week at bedside Severe Anemia: Drop in H/H - status post total 3 units of PRBC transfusion - Closely monitor and transfuse as needed Digoxin toxicity; supratherapeutic level, off digoxin Acute Right common femoral DVT and right IJ vein thrombosis - argatroban drip dced due to severe anemia[requiring transfusion] - planned for IVC filter by IR, but already have one in place - no AC for now, monitor clinically Sepsis due to aspiration pneumonia; - source pneumonia but having persistent fever. UA negative. Blood culture 03/19/2019 no growth. Urine culture 03/19/2019 negative. - ID following, Has completed full course for pneumonia. Plan to stop antibiotics today and If patient decompensates would restart vanc and wiley. Septic shock: off pressor, weaned off, BP now stable Paroxysmal Atrial fib, Now NSR - on amioderone, metoprolol HA (acute kidney injury), atn and vasomotor nephrology, poa: IV fluids for now, Nephrology consulted - renal function improved Anemia, due to CD vs other cause - ordered stool for occult blood, iron study - transfused one unit PRBC RUL Aspiration pneumonia: treated with abx Hypernatremia: improved with Iv fluid Hypomagnesemia: replete and follow as needed Elevated troponin level/ NSTEMI II; consulted Cardiology, conservative mx DVT prophylaxis DNR code status CCT 34 minutes Brief History Patient is a 73 yo woman without a clear past medical history due to patient presentation of being Altered requiring intubation upon admission. Upon arrival to the emergency room, the patient is obtunded, breathing without difficulty, desaturating, without a gag reflex. Therefore, patient placed on nasal cannula at 15 L/m, and then intubated without difficulty. Patient started empirically on the sepsis pathway, with broad-spectrum antibiotics, aggressive IV fluids, a nd post intubation sedation package. She is difficult to wean off from vent, s/p bronch. venous doppler showed right internal jugular vein thrombus associated with right internal jugular vein triple lumen catheter and right common femoral vein DVT. Patient was on anticoagulation however had significant anemia requiring blood transfusion as argatroban discontinued. Patient is unable to wean with poor prognosis, family requested DO NOT RESUSCITATE status And initially decided hospice, however they changed their mind and now considering trach and PEG and SNF placement. * pCXR FINDINGS: SUPPORT DEVICES: Endotracheal tube is in place in good position above the liam. HEART / MEDIASTINUM: No significant abnormality. LUNGS / PLEURA: There is moderate bibasilar lung consolidation and slight right upper lobe consolidation as well. No edema or effusions. No pneumothorax. ADDITIONAL FINDINGS: No significant additional findings. IMPRESSION: 1. Endotracheal tube in good position. * CT head without contrast IMPRESSION: Encephalomalacia in the entire right cerebral hemisphere Volume loss in the left cerebral hemisphere, n0 acute parenchymal lesion in the brain. Hospitalist Physical Gen: critcally ill, thin frail, intubated, HEENT: NCAT, EOMI, PERRL, OP Clear Neck: supple, no adenopathy, no thyromegaly, no JVD CVS/Heart: RRR, normal S1S2, pulses present bilaterally Chest/Lungs: CTA B, Symmetrical chest expansion, good air entry bilaterally GI/Abdomen: soft, NTND, good bowel sounds, no guarding or rebound /Bladder: no suprapubic tenderness, no CVA or paraspinal tenderness Extermity/Skin: no c/c/e, no obvious rash, + edema MSK: no joint swelling Neuro: intubated Psych: intubated Subjective Date of service: 04/07/19 Principal diagnosis: anemia - DVT Interval history: Pt seen and examined remained intubated, off pressor discussed with family and RN at the bedside surgery consulted for trach and PEG Objective - Constitutional Vitals: Vital Signs - 12hr 04/07/19 04/07/19 04/07/19 03:00 03:20 03:29 Temperature 98.6 F Pulse Rate 99 H 102 H Pulse Rate [ Anterior Bilateral Throughout] Respiratory 21 Rate Respiratory Rate [Anterior Bilateral Throughout] Blood Pressure 137/63 137/77 O2 Sat by Pulse 98 Oximetry 04/07/19 04/07/19 04/07/19 04:00 05:00 06:00 Temperature Pulse Rate 96 H 103 H 110 H Pulse Rate [ Anterior Bilateral Throughout] Respiratory 16 24 26 H Rate Respiratory Rate [Anterior Bilateral Throughout] Blood Pressure 138/66 147/72 169/90 O2 Sat by Pulse 97 96 95 Oximetry 0804/07/19 04/07/19 07:00 07:04 07:15 Temperature Pulse Rate 108 H 110 H Pulse Rate [ 112 H Anterior Bilateral Throughout] Respiratory 34 H Rate Respiratory 14 Rate [Anterior Bilateral Throughout] Blood Pressure 166/83 166/83 O2 Sat by Pulse 97 98 Oximetry 04/07/19 04/07/19 04/07/19 08:00 11:10 12:00 Temperature 99.6 F 99.5 F Pulse Rate 110 H 104 H Pulse Rate [ Anterior Bilateral Throughout] Respiratory 22 26 H Rate Respiratory Rate [Anterior Bilateral Throughout] Blood Pressure 148/71 80/33 O2 Sat by Pulse 98 100 Oximetry 04/07/19 04/07/19 13:41 13:45 Temperature Pulse Rate 100 H Pulse Rate [ 101 H Anterior Bilateral Throughout] Respiratory 28 H Rate Respiratory 19 Rate [Anterior Bilateral Throughout] Blood Pressure 99/46 O2 Sat by Pulse 99 Oximetry - Labs CBC & Chem 7: 04/07/19 06:50 04/07/19 06:50 Labs: Abnormal lab results 04/07/19 04/07/19 04/07/19 Range/Units 06:50 06:50 11:37 Hgb 8.6 L (10.1-14.3) gm/dl Hct 25.6 L (30.3-42.9) % Creatinine 0.6 L (0.7-1.2) mg/dL POC Glucose 118 H (70-105) Calcium 8.1 L (8.4-10.2) mg/dL
[2019-04-07] MEDS ORDERED: SODIUM BICARBONATE FEEDTUBE PRN (15:50)
[2019-04-07] MEDS ORDERED: PANCREAZE DR 10,500 UNIT FEEDTUBE PRN (15:50)
[2019-04-07] MEDS ORDERED: SIMPLE SYRUP FEEDTUBE PRN ×2 (15:50)
[2019-04-07] MEDS: BACTRIM DS PO SCH (16:04)
[2019-04-08] MEDS: DUONEB *Not for PRN Use IH SCH ×4 (01:55→19:58)
[2019-04-08] MEDS: TYLENOL FEEDTUBE PRN (03:29)
[2019-04-08] MEDS: HumaLOG SUB-Q SCH ×2 (10:00→14:02)
[2019-04-08] MEDS: BACTRIM DS PO SCH ×3 (10:01→21:51)
[2019-04-08] MEDS: PULMICORT IH SCH ×2 (10:07→19:58)
[2019-04-08] MEDS: SODIUM CHLORIDE FLUSH SYRINGE 10 ML IV SCH ×2 (10:27→21:51)
[2019-04-08] MEDS: PEPCID PO SCH ×2 (10:27→21:51)
[2019-04-08] MEDS: BABY ASPIRIN PO SCH (10:27)
[2019-04-08] MEDS: CORDARONE PO SCH ×2 (10:28→21:51)
--- NOTE | 2019-04-08 11:10 | Progress Note ---
Assessment and Plan - Patient Problems (1) Acute respiratory failure Current Visit: Yes Status: Acute Qualifiers: Respiratory failure complication: unspecified whether with hypoxia or hypercapnia Qualified Code(s): J96.00 - Acute respiratory failure, unspecified whether with hypoxia or hypercapnia Plan to address problem: Pt stable. Spoke with and Caterina (daughter) today. Both agree for trach/PEG. Procedure, risks, benefits discussed. All questions answered. Consent obtained. Tentative plan for trach/PEG on Wednesday. Please call with any questions. Time=15min Subjective Date of service: 04/08/19 Patient Reports: Positive: no new complaints, other (no new events) Objective Vital Signs - 12hr 04/07/19 04/07/19 04/07/19 23:19 23:43 23:44 Temperature 99.7 F H Pulse Rate 106 H 108 H Pulse Rate [ Anterior Bilateral Throughout] Respiratory 30 H Rate Respiratory Rate [Anterior Bilateral Throughout] Blood Pressure 148/79 148/65 O2 Sat by Pulse 96 97 Oximetry 04/08/19 04/08/19 04/08/19 00:00 01:00 01:54 Temperature Pulse Rate 110 H 108 H Pulse Rate [ 110 H Anterior Bilateral Throughout] Respiratory 25 H 37 H Rate Respiratory 20 Rate [Anterior Bilateral Throughout] Blood Pressure 145/63 159/69 O2 Sat by Pulse 97 93 Oximetry 04/08/19 04/08/19 04/08/19 02:00 02:58 03:00 Temperature 101.8 F H Pulse Rate 104 H 105 H Pulse Rate [ Anterior Bilateral Throughout] Respiratory 21 26 H Rate Respiratory Rate [Anterior Bilateral Throughout] Blood Pressure 156/73 138/61 O2 Sat by Pulse 95 Oximetry 04/08/19 04/08/19 04/08/19 04:00 04:34 05:00 Temperature Pulse Rate 107 H 107 H 104 H Pulse Rate [ Anterior Bilateral Throughout] Respiratory 29 H 17 Rate Respiratory Rate [Anterior Bilateral Throughout] Blood Pressure 138/77 137/52 127/57 O2 Sat by Pulse 93 95 95 Oximetry 04/08/19 04/08/19 04/08/19 06:00 07:00 08:00 Temperature 97.8 F Pulse Rate 102 H 105 H 102 H Pulse Rate [ Anterior Bilateral Throughout] Respiratory 17 31 H 28 H Rate Respiratory Rate [Anterior Bilateral Throughout] Blood Pressure 122/61 127/67 161/71 O2 Sat by Pulse 93 94 94 Oximetry 04/08/19 09:00 Temperature Pulse Rate 105 H Pulse Rate [ Anterior Bilateral Throughout] Respiratory 26 H Rate Respiratory Rate [Anterior Bilateral Throughout] Blood Pressure 145/78 O2 Sat by Pulse 95 Oximetry - General physical appearance no distress, no pain - ENT other (ETT in place) - Neck trachea midline, no venous distension, deviated trachea - Respiratory normal expansion, normal respiratory effort - Abdomen soft, not distended - Integumentary no rash, no growths, no abnormal pigmentation - Labs 04/07/19 06:50 04/07/19 06:50
--- NOTE | 2019-04-08 11:57 | Progress Note ---
Assessment and Plan 73 y/o female found unresponsive now intubated and septic, etiology thought secondary to pneumonia with anemia and thrombocytopenia, and persistent fevers found to have multiple DVT's. 1. Trach and Peg at bedside next week (Wednesday) 2. Attempt daily PSV trials 3. Will likely need LTACH CCT 31 minutes. Subjective Date of service: 04/08/19 Principal diagnosis: anemia - dvt Interval history: no acute events. at bedside. Reviewed Surgery note and plan for trach and peg on Wednesday. Objective Vital Signs - 12hr 04/08/19 04/08/19 04/08/19 00:00 01:00 01:54 Temperature Pulse Rate 110 H 108 H Pulse Rate [ 110 H Anterior Bilateral Throughout] Respiratory 25 H 37 H Rate Respiratory 20 Rate [Anterior Bilateral Throughout] Blood Pressure 145/63 159/69 O2 Sat by Pulse 97 93 Oximetry 04/08/19 04/08/19 04/08/19 02:00 02:58 03:00 Temperature 101.8 F H Pulse Rate 104 H 105 H Pulse Rate [ Anterior Bilateral Throughout] Respiratory 21 26 H Rate Respiratory Rate [Anterior Bilateral Throughout] Blood Pressure 156/73 138/61 O2 Sat by Pulse 95 Oximetry 04/08/19 04/08/19 04/08/19 04:00 04:34 05:00 Temperature Pulse Rate 107 H 107 H 104 H Pulse Rate [ Anterior Bilateral Throughout] Respiratory 29 H 17 Rate Respiratory Rate [Anterior Bilateral Throughout] Blood Pressure 138/77 137/52 127/57 O2 Sat by Pulse 93 95 95 Oximetry 04/08/19 04/08/19 04/08/19 06:00 07:00 08:00 Temperature 97.8 F Pulse Rate 102 H 105 H 102 H Pulse Rate [ Anterior Bilateral Throughout] Respiratory 17 31 H 28 H Rate Respiratory Rate [Anterior Bilateral Throughout] Blood Pressure 122/61 127/67 161/71 O2 Sat by Pulse 93 94 94 Oximetry 04/08/19 09:00 Temperature Pulse Rate 105 H Pulse Rate [ Anterior Bilateral Throughout] Respiratory 26 H Rate Respiratory Rate [Anterior Bilateral Throughout] Blood Pressure 145/78 O2 Sat by Pulse 95 Oximetry Constitutional: other (intubated, critically ill on ventilator, awake) Eyes: non-icteric ENT: other (intubated ) Neck: supple Effort: normal Ascultation: Bilateral: diminished breath sounds (grossly clear ), rales (coarse bilat ), other (coarse BS bilaterally) Percussion: Bilateral: not dull, dull Cardiovascular: other (tachy AF, no mrg) Gastrointestinal: normoactive bowel sounds, soft, non-tender, non-distended Integumentary: normal Extremities: anasarca Neurologic: other (awake, alert, L sided hemiparesis, contractures upper extremities) Psychiatric: mood appropriate, affect normal CBC and BMP: 04/07/19 06:50 04/07/19 06:50 ABG, PT/INR, D-dimer: ABG POC ABG pH 7.411 (7.35-7.45) 03/25/19 05:40 POC ABG pO2 83 (80-105) 03/25/19 05:40 POC ABG HCO3 17.7 (22-26 mml/L) 03/25/19 05:40 POC ABG Total CO2 19 (23-27mmol/L) 03/25/19 05:40 POC ABG O2 Sat 97 03/25/19 05:40 PT/INR, D-dimer PT 21.4 Sec. (12.2-14.9) H 03/27/19 14:04 INR 1.90 (0.87-1.13) H 03/27/19 14:04 Abnormal lab findings: Abnormal Labs 03/19/19 03/19/19 03/19/19 12:59 12:59 12:59 WBC RBC 3.44 L Hgb Hct MCV 101 H MCH 34 H MCHC RDW Plt Count 98 L Lymph % (Auto) [place] % (Auto) Eos % (Auto) Lymph # [place] # Eos # Seg Neutrophils % Seg Neuts % (Manual) 11.0 L Lymphocytes % (Manual) Monocytes % (Manual) 10.0 H Eosinophils % (Manual) Nucleated RBC % 1.0 H Seg Neutrophils # Seg Neutrophils # Man 0.6 L Lymphocytes # (Manual) Monocytes # (Manual) Eosinophils # (Manual) PT INR APTT POC ABG pH POC ABG pCO2 POC ABG pO2 Sodium 149 H Potassium Chloride 109.4 H Carbon Dioxide BUN 51 H Creatinine 3.2 H Glucose 58 L POC Glucose Lactic Acid 7.60 H* Calcium 7.8 L Phosphorus Magnesium 1.60 L Iron TIBC Ferritin Direct Bilirubin AST 75 H Total Creatine Kinase 1499 H Troponin T 0.109 H* Total Protein 5.2 L Albumin 1.7 L Prealbumin LDL Cholesterol Direct 22 L HDL Cholesterol 31 L Vitamin B12 TSH PTH Intact Urine Creatinine Urine Total Protein Vancomycin Trough Digoxin Salicylates Acetaminophen Crossmatch 03/19/19 03/19/19 03/19/19 12:59 12:59 14:48 WBC RBC Hgb Hct MCV MCH MCHC RDW Plt Count Lymph % (Auto) [place] % (Auto) Eos % (Auto) Lymph # [place] # Eos # Seg Neutrophils % Seg Neuts % (Manual) Lymphocytes % (Manual) Monocytes % (Manual) Eosinophils % (Manual) Nucleated RBC % Seg Neutrophils # Seg Neutrophils # Man Lymphocytes # (Manual) Monocytes # (Manual) Eosinophils # (Manual) PT INR APTT POC ABG pH POC ABG pCO2 POC ABG pO2 Sodium Potassium Chloride Carbon Dioxide BUN Creatinine Glucose POC Glucose 44 L Lactic Acid Calcium Phosphorus Magnesium Iron TIBC Ferritin Direct Bilirubin AST Total Creatine Kinase Troponin T Total Protein Albumin Prealbumin LDL Cholesterol Direct HDL Cholesterol Vitamin B12 TSH PTH Intact Urine Creatinine Urine Total Protein Vancomycin Trough Digoxin Salicylates < 0.3 L Acetaminophen < 5.0 L Crossmatch 03/19/19 03/19/19 03/19/19 15:33 15:52 16:26 WBC RBC Hgb Hct MCV MCH MCHC RDW Plt Count Lymph % (Auto) [place] % (Auto) Eos % (Auto) Lymph # [place] # Eos # Seg Neutrophils % Seg Neuts % (Manual) Lymphocytes % (Manual) Monocytes % (Manual) Eosinophils % (Manual) Nucleated RBC % Seg Neutrophils # Seg Neutrophils # Man Lymphocytes # (Manual) Monocytes # (Manual) Eosinophils # (Manual) PT INR APTT POC ABG pH POC ABG pCO2 POC ABG pO2 Sodium Potassium Chloride Carbon Dioxide BUN Creatinine Glucose POC Glucose 228 H 231 H Lactic Acid Calcium Phosphorus Magnesium Iron TIBC Ferritin Direct Bilirubin AST Total Creatine Kinase Troponin T Total Protein Albumin Prealbumin LDL Cholesterol Direct HDL Cholesterol Vitamin B12 TSH PTH Intact Urine Creatinine 31.8 H Urine Total Protein Vancomycin Trough Digoxin Salicylates Acetaminophen Crossmatch 03/19/19 03/19/19 03/19/19 16:38 17:14 18:43 WBC RBC Hgb Hct MCV MCH MCHC RDW Plt Count Lymph % (Auto) [place] % (Auto) Eos % (Auto) Lymph # [place] # Eos # Seg Neutrophils % Seg Neuts % (Manual) Lymphocytes % (Manual) Monocytes % (Manual) Eosinophils % (Manual) Nucleated RBC % Seg Neutrophils # Seg Neutrophils # Man Lymphocytes # (Manual) Monocytes # (Manual) Eosinophils # (Manual) PT INR APTT POC ABG pH 7.196 L POC ABG pCO2 30.8 L POC ABG pO2 Sodium Potassium Chloride Carbon Dioxide BUN Creatinine Glucose POC Glucose 235 H Lactic Acid 8.10 H* Calcium Phosphorus Magnesium Iron TIBC Ferritin Direct Bilirubin AST Total Creatine Kinase Troponin T Total Protein Albumin Prealbumin LDL Cholesterol Direct HDL Cholesterol Vitamin B12 TSH PTH Intact Urine Creatinine Urine Total Protein Vancomycin Trough Digoxin Salicylates Acetaminophen Crossmatch 03/19/19 03/19/19 03/19/19 18:52 20:00 20:56 WBC RBC Hgb Hct MCV MCH MCHC RDW Plt Count Lymph % (Auto) [place] % (Auto) Eos % (Auto) Lymph # [place] # Eos # Seg Neutrophils % Seg Neuts % (Manual) Lymphocytes % (Manual) Monocytes % (Manual) Eosinophils % (Manual) Nucleated RBC % Seg Neutrophils # Seg Neutrophils # Man Lymphocytes # (Manual) Monocytes # (Manual) Eosinophils # (Manual) PT INR APTT POC ABG pH POC ABG pCO2 POC ABG pO2 Sodium Potassium Chloride Carbon Dioxide BUN Creatinine Glucose POC Glucose 240 H 117 H Lactic Acid 5.90 H* Calcium Phosphorus Magnesium Iron TIBC Ferritin Direct Bilirubin AST Total Creatine Kinase Troponin T Total Protein Albumin Prealbumin LDL Cholesterol Direct HDL Cholesterol Vitamin B12 TSH PTH Intact Urine Creatinine Urine Total Protein Vancomycin Trough Digoxin Salicylates Acetaminophen Crossmatch 03/19/19 03/19/19 03/19/19 21:19 22:07 23:00 WBC RBC Hgb Hct MCV MCH MCHC RDW Plt Count Lymph % (Auto) [place] % (Auto) Eos % (Auto) Lymph # [place] # Eos # Seg Neutrophils % Seg Neuts % (Manual) Lymphocytes % (Manual) Monocytes % (Manual) Eosinophils % (Manual) Nucleated RBC % Seg Neutrophils # Seg Neutrophils # Man Lymphocytes # (Manual) Monocytes # (Manual) Eosinophils # (Manual) PT INR APTT POC ABG pH POC ABG pCO2 POC ABG pO2 Sodium Potassium Chloride Carbon Dioxide BUN Creatinine Glucose POC Glucose < 40 L 136 H Lactic Acid 6.10 H* Calcium Phosphorus Magnesium Iron TIBC Ferritin Direct Bilirubin AST Total Creatine Kinase Troponin T Total Protein Albumin Prealbumin LDL Cholesterol Direct HDL Cholesterol Vitamin B12 TSH PTH Intact Urine Creatinine Urine Total Protein Vancomycin Trough Digoxin Salicylates Acetaminophen Crossmatch 03/20/19 03/20/19 03/20/19 00:05 01:38 02:23 WBC RBC Hgb Hct MCV MCH MCHC RDW Plt Count Lymph % (Auto) [place] % (Auto) Eos % (Auto) Lymph # [place] # Eos # Seg Neutrophils % Seg Neuts % (Manual) Lymphocytes % (Manual) Monocytes % (Manual) Eosinophils % (Manual) Nucleated RBC % Seg Neutrophils # Seg Neutrophils # Man Lymphocytes # (Manual) Monocytes # (Manual) Eosinophils # (Manual) PT INR APTT POC ABG pH POC ABG pCO2 POC ABG pO2 Sodium Potassium Chloride Carbon Dioxide BUN Creatinine Glucose POC Glucose 68 L 153 H 127 H Lactic Acid Calcium Phosphorus Magnesium Iron TIBC Ferritin Direct Bilirubin AST Total Creatine Kinase Troponin T Total Protein Albumin Prealbumin LDL Cholesterol Direct HDL Cholesterol Vitamin B12 TSH PTH Intact Urine Creatinine Urine Total Protein Vancomycin Trough Digoxin Salicylates Acetaminophen Crossmatch 03/20/19 03/20/19 03/20/19 03:12 04:31 04:41 WBC RBC Hgb Hct MCV MCH MCHC RDW Plt Count Lymph % (Auto) [place] % (Auto) Eos % (Auto) Lymph # [place] # Eos # Seg Neutrophils % Seg Neuts % (Manual) Lymphocytes % (Manual) Monocytes % (Manual) Eosinophils % (Manual) Nucleated RBC % Seg Neutrophils # Seg Neutrophils # Man Lymphocytes # (Manual) Monocytes # (Manual) Eosinophils # (Manual) PT INR APTT POC ABG pH POC ABG pCO2 POC ABG pO2 53 L 65 L Sodium Potassium Chloride Carbon Dioxide BUN Creatinine Glucose POC Glucose 109 H Lactic Acid Calcium Phosphorus Magnesium Iron TIBC Ferritin Direct Bilirubin AST Total Creatine Kinase Troponin T Total Protein Albumin Prealbumin LDL Cholesterol Direct HDL Cholesterol Vitamin B12 TSH PTH Intact Urine Creatinine Urine Total Protein Vancomycin Trough Digoxin Salicylates Acetaminophen Crossmatch 03/20/19 03/20/19 03/20/19 05:50 07:29 08:14 WBC RBC Hgb Hct MCV MCH MCHC RDW Plt Count Lymph % (Auto) [place] % (Auto) Eos % (Auto) Lymph # [place] # Eos # Seg Neutrophils % Seg Neuts % (Manual) Lymphocytes % (Manual) Monocytes % (Manual) Eosinophils % (Manual) Nucleated RBC % Seg Neutrophils # Seg Neutrophils # Man Lymphocytes # (Manual) Monocytes # (Manual) Eosinophils # (Manual) PT INR APTT POC ABG pH POC ABG pCO2 POC ABG pO2 Sodium Potassium Chloride Carbon Dioxide BUN Creatinine Glucose 61 L POC Glucose 47 L 153 H Lactic Acid Calcium Phosphorus Magnesium 1.60 L Iron TIBC Ferritin Direct Bilirubin AST Total Creatine Kinase Troponin T Total Protein Albumin Prealbumin LDL Cholesterol Direct HDL Cholesterol Vitamin B12 TSH PTH Intact Urine Creatinine Urine Total Protein Vancomycin Trough Digoxin Salicylates Acetaminophen Crossmatch 03/20/19 03/20/19 03/20/19 08:23 08:23 10:59 WBC RBC Hgb Hct MCV MCH MCHC RDW Plt Count Lymph % (Auto) [place] % (Auto) Eos % (Auto) Lymph # [place] # Eos # Seg Neutrophils % Seg Neuts % (Manual) Lymphocytes % (Manual) Monocytes % (Manual) Eosinophils % (Manual) Nucleated RBC % Seg Neutrophils # Seg Neutrophils # Man Lymphocytes # (Manual) Monocytes # (Manual) Eosinophils # (Manual) PT INR APTT POC ABG pH POC ABG pCO2 POC ABG pO2 Sodium Potassium Chloride Carbon Dioxide BUN Creatinine Glucose 101 H POC Glucose 233 H Lactic Acid 9.70 H* Calcium Phosphorus Magnesium Iron TIBC Ferritin Direct Bilirubin AST Total Creatine Kinase Troponin T Total Protein Albumin Prealbumin 0.052 L LDL Cholesterol Direct HDL Cholesterol Vitamin B12 TSH PTH Intact Urine Creatinine Urine Total Protein Vancomycin Trough Digoxin Salicylates Acetaminophen Crossmatch 03/20/19 03/20/19 03/20/19 12:23 16:10 16:40 WBC RBC Hgb Hct MCV MCH MCHC RDW Plt Count Lymph % (Auto) [place] % (Auto) Eos % (Auto) Lymph # [place] # Eos # Seg Neutrophils % Seg Neuts % (Manual) Lymphocytes % (Manual) Monocytes % (Manual) Eosinophils % (Manual) Nucleated RBC % Seg Neutrophils # Seg Neutrophils # Man Lymphocytes # (Manual) Monocytes # (Manual) Eosinophils # (Manual) PT INR APTT POC ABG pH POC ABG pCO2 POC ABG pO2 Sodium Potassium Chloride Carbon Dioxide BUN Creatinine Glucose POC Glucose 135 H 171 H Lactic Acid Calcium Phosphorus Magnesium Iron TIBC Ferritin Direct Bilirubin AST Total Creatine Kinase Troponin T Total Protein Albumin Prealbumin LDL Cholesterol Direct HDL Cholesterol Vitamin B12 TSH PTH Intact Urine Creatinine 53.7 H Urine Total Protein 36 H Vancomycin Trough Digoxin Salicylates Acetaminophen Crossmatch 03/20/19 03/20/19 03/20/19 16:57 17:38 17:50 WBC RBC Hgb Hct MCV MCH MCHC RDW Plt Count Lymph % (Auto) [place] % (Auto) Eos % (Auto) Lymph # [place] # Eos # Seg Neutrophils % Seg Neuts % (Manual) Lymphocytes % (Manual) Monocytes % (Manual) Eosinophils % (Manual) Nucleated RBC % Seg Neutrophils # Seg Neutrophils # Man Lymphocytes # (Manual) Monocytes # (Manual) Eosinophils # (Manual) PT INR APTT POC ABG pH POC ABG pCO2 POC ABG pO2 Sodium Potassium Chloride Carbon Dioxide BUN Creatinine Glucose POC Glucose 152 H 147 H Lactic Acid 9.90 H* Calcium Phosphorus Magnesium Iron TIBC Ferritin Direct Bilirubin AST Total Creatine Kinase Troponin T Total Protein Albumin Prealbumin LDL Cholesterol Direct HDL Cholesterol Vitamin B12 TSH PTH Intact Urine Creatinine Urine Total Protein Vancomycin Trough Digoxin Salicylates Acetaminophen Crossmatch 03/20/19 03/20/19 03/20/19 17:50 17:50 17:50 WBC RBC 2.92 L Hgb 10.0 L Hct 29.3 L MCV 100 H MCH 34 H MCHC RDW Plt Count 81 L Lymph % (Auto) [place] % (Auto) Eos % (Auto) Lymph # [place] # Eos # Seg Neutrophils % Seg Neuts % (Manual) Lymphocytes % (Manual) Monocytes % (Manual) Eosinophils % (Manual) Nucleated RBC % Seg Neutrophils # Seg Neutrophils # Man Lymphocytes # (Manual) Monocytes # (Manual) Eosinophils # (Manual) PT INR APTT POC ABG pH POC ABG pCO2 POC ABG pO2 Sodium Potassium 2.8 L* D Chloride Carbon Dioxide BUN 30 H Creatinine 1.6 H Glucose 107 H POC Glucose Lactic Acid Calcium 6.9 L Phosphorus 2.00 L Magnesium Iron TIBC Ferritin Direct Bilirubin AST Total Creatine Kinase Troponin T Total Protein Albumin Prealbumin LDL Cholesterol Direct HDL Cholesterol Vitamin B12 TSH PTH Intact 171.6 H Urine Creatinine Urine Total Protein Vancomycin Trough Digoxin Salicylates Acetaminophen Crossmatch 03/20/19 03/21/19 03/21/19 21:12 00:30 04:12 WBC RBC Hgb Hct MCV MCH MCHC RDW Plt Count Lymph % (Auto) [place] % (Auto) Eos % (Auto) Lymph # [place] # Eos # Seg Neutrophils % Seg Neuts % (Manual) Lymphocytes % (Manual) Monocytes % (Manual) Eosinophils % (Manual) Nucleated RBC % Seg Neutrophils # Seg Neutrophils # Man Lymphocytes # (Manual) Monocytes # (Manual) Eosinophils # (Manual) PT INR APTT POC ABG pH POC ABG pCO2 POC ABG pO2 Sodium Potassium 3.0 L Chloride Carbon Dioxide 21 L BUN Creatinine 1.4 H Glucose 103 H POC Glucose Lactic Acid 8.70 H* 9.40 H* Calcium 6.8 L Phosphorus Magnesium Iron TIBC Ferritin Direct Bilirubin AST Total Creatine Kinase Troponin T Total Protein Albumin Prealbumin LDL Cholesterol Direct HDL Cholesterol Vitamin B12 TSH PTH Intact Urine Creatinine Urine Total Protein Vancomycin Trough Digoxin Salicylates Acetaminophen Crossmatch 03/21/19 03/21/19 03/21/19 04:12 04:12 04:43 WBC RBC 2.84 L Hgb 9.5 L Hct 28.3 L MCV 100 H MCH 33 H MCHC RDW Plt Count 79 L Lymph % (Auto) [place] % (Auto) Eos % (Auto) Lymph # [place] # Eos # Seg Neutrophils % Seg Neuts % (Manual) Lymphocytes % (Manual) Monocytes % (Manual) Eosinophils % (Manual) Nucleated RBC % Seg Neutrophils # Seg Neutrophils # Man Lymphocytes # (Manual) Monocytes # (Manual) Eosinophils # (Manual) PT INR APTT POC ABG pH 7.456 H POC ABG pCO2 POC ABG pO2 Sodium Potassium Chloride Carbon Dioxide BUN Creatinine Glucose POC Glucose Lactic Acid 9.50 H* Calcium Phosphorus Magnesium Iron TIBC Ferritin Direct Bilirubin AST Total Creatine Kinase Troponin T Total Protein Albumin Prealbumin LDL Cholesterol Direct HDL Cholesterol Vitamin B12 TSH PTH Intact Urine Creatinine Urine Total Protein Vancomycin Trough Digoxin Salicylates Acetaminophen Crossmatch 03/21/19 03/21/19 03/21/19 08:06 08:08 10:11 WBC RBC Hgb Hct MCV MCH MCHC RDW Plt Count Lymph % (Auto) [place] % (Auto) Eos % (Auto) Lymph # [place] # Eos # Seg Neutrophils % Seg Neuts % (Manual) Lymphocytes % (Manual) Monocytes % (Manual) Eosinophils % (Manual) Nucleated RBC % Seg Neutrophils # Seg Neutrophils # Man Lymphocytes # (Manual) Monocytes # (Manual) Eosinophils # (Manual) PT INR APTT POC ABG pH POC ABG pCO2 POC ABG pO2 Sodium Potassium 3.5 L Chloride Carbon Dioxide BUN 22 H Creatinine 1.3 H Glucose POC Glucose 64 L Lactic Acid 8.00 H* Calcium 7.0 L Phosphorus Magnesium Iron TIBC Ferritin Direct Bilirubin AST Total Creatine Kinase Troponin T Total Protein Albumin Prealbumin LDL Cholesterol Direct HDL Cholesterol Vitamin B12 TSH PTH Intact Urine Creatinine Urine Total Protein Vancomycin Trough Digoxin Salicylates Acetaminophen Crossmatch 03/21/19 03/21/19 03/21/19 11:17 12:17 13:37 WBC RBC Hgb Hct MCV MCH MCHC RDW Plt Count Lymph % (Auto) [place] % (Auto) Eos % (Auto) Lymph # [place] # Eos # Seg Neutrophils % Seg Neuts % (Manual) Lymphocytes % (Manual) Monocytes % (Manual) Eosinophils % (Manual) Nucleated RBC % Seg Neutrophils # Seg Neutrophils # Man Lymphocytes # (Manual) Monocytes # (Manual) Eosinophils # (Manual) PT INR APTT POC ABG pH POC ABG pCO2 POC ABG pO2 Sodium Potassium Chloride Carbon Dioxide BUN Creatinine Glucose POC Glucose 173 H 110 H Lactic Acid Calcium Phosphorus Magnesium Iron TIBC Ferritin Direct Bilirubin AST Total Creatine Kinase Troponin T 0.033 H D Total Protein Albumin Prealbumin LDL Cholesterol Direct HDL Cholesterol Vitamin B12 TSH PTH Intact Urine Creatinine Urine Total Protein Vancomycin Trough Digoxin Salicylates Acetaminophen Crossmatch 03/21/19 03/21/19 03/21/19 13:37 17:21 18:52 WBC RBC Hgb Hct MCV MCH MCHC RDW Plt Count Lymph % (Auto) [place] % (Auto) Eos % (Auto) Lymph # [place] # Eos # Seg Neutrophils % Seg Neuts % (Manual) Lymphocytes % (Manual) Monocytes % (Manual) Eosinophils % (Manual) Nucleated RBC % Seg Neutrophils # Seg Neutrophils # Man Lymphocytes # (Manual) Monocytes # (Manual) Eosinophils # (Manual) PT INR APTT POC ABG pH POC ABG pCO2 POC ABG pO2 Sodium Potassium Chloride Carbon Dioxide BUN Creatinine Glucose POC Glucose 130 H 107 H Lactic Acid 6.80 H* Calcium Phosphorus Magnesium Iron TIBC Ferritin Direct Bilirubin AST Total Creatine Kinase Troponin T Total Protein Albumin Prealbumin LDL Cholesterol Direct HDL Cholesterol Vitamin B12 TSH PTH Intact Urine Creatinine Urine Total Protein Vancomycin Trough Digoxin Salicylates Acetaminophen Crossmatch 03/21/19 03/21/19 03/21/19 20:20 22:08 23:05 WBC RBC Hgb Hct MCV MCH MCHC RDW Plt Count Lymph % (Auto) [place] % (Auto) Eos % (Auto) Lymph # [place] # Eos # Seg Neutrophils % Seg Neuts % (Manual) Lymphocytes % (Manual) Monocytes % (Manual) Eosinophils % (Manual) Nucleated RBC % Seg Neutrophils # Seg Neutrophils # Man Lymphocytes # (Manual) Monocytes # (Manual) Eosinophils # (Manual) PT INR APTT POC ABG pH POC ABG pCO2 POC ABG pO2 Sodium Potassium Chloride Carbon Dioxide BUN Creatinine Glucose POC Glucose 106 H 106 H Lactic Acid Calcium Phosphorus Magnesium Iron TIBC Ferritin Direct Bilirubin AST Total Creatine Kinase Troponin T 0.036 H Total Protein Albumin Prealbumin LDL Cholesterol Direct HDL Cholesterol Vitamin B12 TSH PTH Intact Urine Creatinine Urine Total Protein Vancomycin Trough Digoxin Salicylates Acetaminophen Crossmatch 03/21/19 03/21/19 03/22/19 23:05 23:05 00:14 WBC RBC Hgb Hct MCV MCH MCHC RDW Plt Count Lymph % (Auto) [place] % (Auto) Eos % (Auto) Lymph # [place] # Eos # Seg Neutrophils % Seg Neuts % (Manual) Lymphocytes % (Manual) Monocytes % (Manual) Eosinophils % (Manual) Nucleated RBC % Seg Neutrophils # Seg Neutrophils # Man Lymphocytes # (Manual) Monocytes # (Manual) Eosinophils # (Manual) PT INR APTT POC ABG pH POC ABG pCO2 POC ABG pO2 Sodium Potassium Chloride Carbon Dioxide BUN Creatinine Glucose POC Glucose 122 H 109 H Lactic Acid 7.00 H* Calcium Phosphorus Magnesium Iron TIBC Ferritin Direct Bilirubin AST Total Creatine Kinase Troponin T Total Protein Albumin Prealbumin LDL Cholesterol Direct HDL Cholesterol Vitamin B12 TSH PTH Intact Urine Creatinine Urine Total Protein Vancomycin Trough Digoxin Salicylates Acetaminophen Crossmatch 03/22/19 03/22/19 03/22/19 03:10 04:02 05:11 WBC RBC Hgb Hct MCV MCH MCHC RDW Plt Count Lymph % (Auto) [place] % (Auto) Eos % (Auto) Lymph # [place] # Eos # Seg Neutrophils % Seg Neuts % (Manual) Lymphocytes % (Manual) Monocytes % (Manual) Eosinophils % (Manual) Nucleated RBC % Seg Neutrophils # Seg Neutrophils # Man Lymphocytes # (Manual) Monocytes # (Manual) Eosinophils # (Manual) PT INR APTT POC ABG pH 7.487 H POC ABG pCO2 POC ABG pO2 67 L Sodium Potassium Chloride Carbon Dioxide BUN Creatinine Glucose POC Glucose 114 H 112 H Lactic Acid Calcium Phosphorus Magnesium Iron TIBC Ferritin Direct Bilirubin AST Total Creatine Kinase Troponin T Total Protein Albumin Prealbumin LDL Cholesterol Direct HDL Cholesterol Vitamin B12 TSH PTH Intact Urine Creatinine Urine Total Protein Vancomycin Trough Digoxin Salicylates Acetaminophen Crossmatch 03/22/19 03/22/19 03/22/19 06:06 06:10 06:10 WBC RBC Hgb Hct MCV MCH MCHC RDW Plt Count Lymph % (Auto) [place] % (Auto) Eos % (Auto) Lymph # [place] # Eos # Seg Neutrophils % Seg Neuts % (Manual) Lymphocytes % (Manual) Monocytes % (Manual) Eosinophils % (Manual) Nucleated RBC % Seg Neutrophils # Seg Neutrophils # Man Lymphocytes # (Manual) Monocytes # (Manual) Eosinophils # (Manual) PT INR APTT POC ABG pH POC ABG pCO2 POC ABG pO2 Sodium Potassium 3.0 L Chloride Carbon Dioxide BUN Creatinine Glucose POC Glucose 115 H Lactic Acid Calcium 7.0 L Phosphorus Magnesium Iron TIBC Ferritin Direct Bilirubin AST Total Creatine Kinase Troponin T 0.036 H Total Protein Albumin Prealbumin LDL Cholesterol Direct HDL Cholesterol Vitamin B12 TSH PTH Intact Urine Creatinine Urine Total Protein Vancomycin Trough Digoxin Salicylates Acetaminophen Crossmatch 03/22/19 03/22/19 03/22/19 06:10 06:10 11:59 WBC RBC Hgb Hct MCV MCH MCHC RDW Plt Count Lymph % (Auto) [place] % (Auto) Eos % (Auto) Lymph # [place] # Eos # Seg Neutrophils % Seg Neuts % (Manual) Lymphocytes % (Manual) Monocytes % (Manual) Eosinophils % (Manual) Nucleated RBC % Seg Neutrophils # Seg Neutrophils # Man Lymphocytes # (Manual) Monocytes # (Manual) Eosinophils # (Manual) PT INR APTT POC ABG pH POC ABG pCO2 POC ABG pO2 Sodium Potassium Chloride Carbon Dioxide BUN Creatinine Glucose POC Glucose Lactic Acid 4.80 H* 3.80 H* Calcium Phosphorus Magnesium Iron TIBC Ferritin Direct Bilirubin AST Total Creatine Kinase Troponin T Total Protein Albumin Prealbumin LDL Cholesterol Direct HDL Cholesterol Vitamin B12 TSH 7.810 H PTH Intact Urine Creatinine Urine Total Protein Vancomycin Trough Digoxin Salicylates Acetaminophen Crossmatch 03/22/19 03/22/19 03/22/19 13:45 13:45 13:45 WBC RBC Hgb 8.3 L Hct 24.5 L MCV MCH MCHC RDW Plt Count 56 L Lymph % (Auto) [place] % (Auto) Eos % (Auto) Lymph # [place] # Eos # Seg Neutrophils % Seg Neuts % (Manual) Lymphocytes % (Manual) Monocytes % (Manual) Eosinophils % (Manual) Nucleated RBC % Seg Neutrophils # Seg Neutrophils # Man Lymphocytes # (Manual) Monocytes # (Manual) Eosinophils # (Manual) PT 21.4 H INR 1.90 H APTT 43.2 H POC ABG pH POC ABG pCO2 POC ABG pO2 Sodium Potassium Chloride Carbon Dioxide BUN Creatinine Glucose POC Glucose Lactic Acid 3.50 H* Calcium Phosphorus Magnesium Iron TIBC Ferritin Direct Bilirubin AST Total Creatine Kinase Troponin T Total Protein Albumin Prealbumin LDL Cholesterol Direct HDL Cholesterol Vitamin B12 TSH PTH Intact Urine Creatinine Urine Total Protein Vancomycin Trough Digoxin Salicylates Acetaminophen Crossmatch 03/22/19 03/23/19 03/23/19 22:20 01:06 04:50 WBC 12.1 H RBC 2.36 L Hgb 7.7 L Hct 22.9 L MCV MCH 33 H MCHC RDW Plt Count 37 L Lymph % (Auto) [place] % (Auto) Eos % (Auto) Lymph # [place] # Eos # Seg Neutrophils % Seg Neuts % (Manual) 83.0 H Lymphocytes % (Manual) 8.0 L Monocytes % (Manual) Eosinophils % (Manual) Nucleated RBC % Seg Neutrophils # Seg Neutrophils # Man 10.0 H Lymphocytes # (Manual) 1.0 L Monocytes # (Manual) Eosinophils # (Manual) PT INR APTT POC ABG pH POC ABG pCO2 POC ABG pO2 Sodium Potassium Chloride Carbon Dioxide BUN Creatinine Glucose POC Glucose Lactic Acid 3.60 H* 2.70 H* Calcium Phosphorus Magnesium Iron TIBC Ferritin Direct Bilirubin AST Total Creatine Kinase Troponin T Total Protein Albumin Prealbumin LDL Cholesterol Direct HDL Cholesterol Vitamin B12 TSH PTH Intact Urine Creatinine Urine Total Protein Vancomycin Trough Digoxin Salicylates Acetaminophen Crossmatch 03/23/19 03/23/19 03/23/19 04:50 05:25 05:53 WBC RBC Hgb Hct MCV MCH MCHC RDW Plt Count Lymph % (Auto) [place] % (Auto) Eos % (Auto) Lymph # [place] # Eos # Seg Neutrophils % Seg Neuts % (Manual) Lymphocytes % (Manual) Monocytes % (Manual) Eosinophils % (Manual) Nucleated RBC % Seg Neutrophils # Seg Neutrophils # Man Lymphocytes # (Manual) Monocytes # (Manual) Eosinophils # (Manual) PT INR APTT POC ABG pH POC ABG pCO2 33.3 L POC ABG pO2 Sodium Potassium 3.5 L Chloride 108.3 H Carbon Dioxide BUN Creatinine Glucose POC Glucose 68 L Lactic Acid Calcium 7.3 L Phosphorus Magnesium Iron TIBC Ferritin Direct Bilirubin AST Total Creatine Kinase Troponin T Total Protein Albumin Prealbumin LDL Cholesterol Direct HDL Cholesterol Vitamin B12 TSH PTH Intact Urine Creatinine Urine Total Protein Vancomycin Trough Digoxin Salicylates Acetaminophen Crossmatch 03/24/19 03/24/19 03/24/19 03:26 05:50 05:57 WBC RBC Hgb Hct MCV MCH MCHC RDW Plt Count Lymph % (Auto) [place] % (Auto) Eos % (Auto) Lymph # [place] # Eos # Seg Neutrophils % Seg Neuts % (Manual) Lymphocytes % (Manual) Monocytes % (Manual) Eosinophils % (Manual) Nucleated RBC % Seg Neutrophils # Seg Neutrophils # Man Lymphocytes # (Manual) Monocytes # (Manual) Eosinophils # (Manual) PT INR APTT POC ABG pH POC ABG pCO2 POC ABG pO2 78 L Sodium Potassium 3.4 L Chloride 116.5 H Carbon Dioxide 21 L BUN Creatinine 0.5 L Glucose 105 H POC Glucose 127 H Lactic Acid Calcium 6.4 L Phosphorus Magnesium Iron TIBC Ferritin Direct Bilirubin AST Total Creatine Kinase Troponin T Total Protein Albumin Prealbumin LDL Cholesterol Direct HDL Cholesterol Vitamin B12 TSH PTH Intact Urine Creatinine Urine Total Protein Vancomycin Trough Digoxin Salicylates Acetaminophen Crossmatch 03/24/19 03/24/19 03/24/19 06:00 11:30 12:25 WBC 13.6 H RBC 2.08 L Hgb 6.9 L Hct 20.5 L MCV 99 H MCH 33 H MCHC RDW Plt Count 50 L Lymph % (Auto) 8.1 L [place] % (Auto) 10.0 H Eos % (Auto) Lymph # 1.1 L [place] # 1.4 H Eos # Seg Neutrophils % 80.7 H Seg Neuts % (Manual) Lymphocytes % (Manual) Monocytes % (Manual) Eosinophils % (Manual) Nucleated RBC % Seg Neutrophils # 11.0 H Seg Neutrophils # Man Lymphocytes # (Manual) Monocytes # (Manual) Eosinophils # (Manual) PT INR APTT POC ABG pH POC ABG pCO2 POC ABG pO2 Sodium Potassium Chloride Carbon Dioxide BUN Creatinine Glucose POC Glucose 111 H Lactic Acid Calcium Phosphorus Magnesium Iron TIBC Ferritin Direct Bilirubin AST Total Creatine Kinase Troponin T Total Protein Albumin Prealbumin LDL Cholesterol Direct HDL Cholesterol Vitamin B12 TSH PTH Intact Urine Creatinine Urine Total Protein Vancomycin Trough Digoxin Salicylates Acetaminophen Crossmatch See Detail 03/24/19 03/25/19 03/25/19 14:25 05:20 10:00 WBC 13.4 H RBC 2.54 L Hgb 8.1 L Hct 24.3 L MCV MCH MCHC RDW 17.3 H Plt Count 44 L Lymph % (Auto) [place] % (Auto) Eos % (Auto) Lymph # [place] # Eos # Seg Neutrophils % Seg Neuts % (Manual) Lymphocytes % (Manual) Monocytes % (Manual) Eosinophils % (Manual) Nucleated RBC % Seg Neutrophils # Seg Neutrophils # Man Lymphocytes # (Manual) Monocytes # (Manual) Eosinophils # (Manual) PT INR APTT POC ABG pH POC ABG pCO2 POC ABG pO2 Sodium Potassium Chloride Carbon Dioxide BUN Creatinine Glucose POC Glucose 111 H Lactic Acid Calcium Phosphorus Magnesium Iron 32 L TIBC 75 L Ferritin Direct Bilirubin AST Total Creatine Kinase Troponin T Total Protein Albumin Prealbumin LDL Cholesterol Direct HDL Cholesterol Vitamin B12 TSH PTH Intact Urine Creatinine Urine Total Protein Vancomycin Trough Digoxin Salicylates Acetaminophen Crossmatch 03/25/19 03/25/19 03/25/19 10:11 10:11 23:11 WBC RBC Hgb Hct MCV MCH MCHC RDW Plt Count Lymph % (Auto) [place] % (Auto) Eos % (Auto) Lymph # [place] # Eos # Seg Neutrophils % Seg Neuts % (Manual) Lymphocytes % (Manual) Monocytes % (Manual) Eosinophils % (Manual) Nucleated RBC % Seg Neutrophils # Seg Neutrophils # Man Lymphocytes # (Manual) Monocytes # (Manual) Eosinophils # (Manual) PT INR APTT POC ABG pH POC ABG pCO2 POC ABG pO2 Sodium Potassium Chloride 112.0 H Carbon Dioxide BUN 20 H Creatinine 0.6 L Glucose POC Glucose 112 H Lactic Acid Calcium 7.2 L Phosphorus Magnesium Iron TIBC Ferritin Direct Bilirubin AST Total Creatine Kinase Troponin T Total Protein Albumin Prealbumin LDL Cholesterol Direct HDL Cholesterol Vitamin B12 > 2000 H TSH PTH Intact Urine Creatinine Urine Total Protein Vancomycin Trough Digoxin Salicylates Acetaminophen Crossmatch 03/26/19 03/26/19 03/26/19 05:00 05:00 05:16 WBC 14.4 H RBC 2.74 L Hgb 8.9 L Hct 25.7 L MCV MCH 33 H MCHC 35 H RDW 16.9 H Plt Count 60 L Lymph % (Auto) [place] % (Auto) Eos % (Auto) Lymph # [place] # Eos # Seg Neutrophils % Seg Neuts % (Manual) 83.0 H Lymphocytes % (Manual) 5.0 L Monocytes % (Manual) Eosinophils % (Manual) 5.0 H Nucleated RBC % 1.0 H Seg Neutrophils # Seg Neutrophils # Man 12.0 H Lymphocytes # (Manual) 0.7 L Monocytes # (Manual) 0.9 H Eosinophils # (Manual) 0.7 H PT INR APTT POC ABG pH POC ABG pCO2 POC ABG pO2 Sodium Potassium 3.1 L Chloride 110.4 H Carbon Dioxide BUN 22 H Creatinine Glucose 101 H POC Glucose 114 H Lactic Acid Calcium 7.4 L Phosphorus Magnesium Iron TIBC Ferritin Direct Bilirubin AST Total Creatine Kinase Troponin T Total Protein Albumin Prealbumin LDL Cholesterol Direct HDL Cholesterol Vitamin B12 TSH PTH Intact Urine Creatinine Urine Total Protein Vancomycin Trough Digoxin Salicylates Acetaminophen Crossmatch 03/26/19 03/27/19 03/27/19 11:55 09:04 09:04 WBC RBC Hgb Hct MCV MCH MCHC RDW Plt Count Lymph % (Auto) [place] % (Auto) Eos % (Auto) Lymph # [place] # Eos # Seg Neutrophils % Seg Neuts % (Manual) Lymphocytes % (Manual) Monocytes % (Manual) Eosinophils % (Manual) Nucleated RBC % Seg Neutrophils # Seg Neutrophils # Man Lymphocytes # (Manual) Monocytes # (Manual) Eosinophils # (Manual) PT INR APTT POC ABG pH POC ABG pCO2 POC ABG pO2 Sodium Potassium 3.2 L Chloride Carbon Dioxide BUN 22 H Creatinine Glucose POC Glucose 121 H Lactic Acid Calcium 7.7 L Phosphorus Magnesium Iron TIBC Ferritin Direct Bilirubin AST Total Creatine Kinase Troponin T Total Protein Albumin Prealbumin LDL Cholesterol Direct HDL Cholesterol Vitamin B12 TSH PTH Intact Urine Creatinine Urine Total Protein Vancomycin Trough 23.0 H Digoxin Salicylates Acetaminophen Crossmatch 03/27/19 03/27/19 03/27/19 09:04 13:31 14:04 WBC 14.8 H RBC 2.52 L Hgb 8.0 L 8.3 L Hct 24.0 L 25.3 L MCV MCH MCHC RDW 17.0 H Plt Count 89 L 91 L Lymph % (Auto) [place] % (Auto) 8.8 H Eos % (Auto) Lymph # [place] # 1.3 H Eos # Seg Neutrophils % 70.7 H Seg Neuts % (Manual) Lymphocytes % (Manual) Monocytes % (Manual) Eosinophils % (Manual) Nucleated RBC % Seg Neutrophils # 10.5 H Seg Neutrophils # Man Lymphocytes # (Manual) Monocytes # (Manual) Eosinophils # (Manual) PT INR APTT POC ABG pH POC ABG pCO2 POC ABG pO2 Sodium Potassium Chloride Carbon Dioxide BUN Creatinine Glucose POC Glucose Lactic Acid Calcium Phosphorus Magnesium Iron TIBC Ferritin Direct Bilirubin 0.3 H AST Total Creatine Kinase Troponin T Total Protein 4.9 L Albumin 1.3 L Prealbumin LDL Cholesterol Direct HDL Cholesterol Vitamin B12 TSH PTH Intact Urine Creatinine Urine Total Protein Vancomycin Trough Digoxin Salicylates Acetaminophen Crossmatch 03/27/19 03/27/19 03/28/19 14:04 23:51 01:05 WBC 14.4 H RBC 2.44 L Hgb 8.0 L Hct 24.5 L MCV 100 H MCH 33 H MCHC RDW 18.5 H Plt Count 86 L Lymph % (Auto) [place] % (Auto) Eos % (Auto) Lymph # [place] # Eos # Seg Neutrophils % Seg Neuts % (Manual) 84.0 H Lymphocytes % (Manual) 10.0 L Monocytes % (Manual) Eosinophils % (Manual) Nucleated RBC % Seg Neutrophils # Seg Neutrophils # Man 12.1 H Lymphocytes # (Manual) Monocytes # (Manual) Eosinophils # (Manual) PT 21.4 H INR 1.90 H APTT 42.2 H POC ABG pH POC ABG pCO2 POC ABG pO2 Sodium Potassium Chloride Carbon Dioxide BUN Creatinine Glucose POC Glucose 130 H Lactic Acid Calcium Phosphorus Magnesium Iron TIBC Ferritin Direct Bilirubin AST Total Creatine Kinase Troponin T Total Protein Albumin Prealbumin LDL Cholesterol Direct HDL Cholesterol Vitamin B12 TSH PTH Intact Urine Creatinine Urine Total Protein Vancomycin Trough Digoxin Salicylates Acetaminophen Crossmatch 03/28/19 03/28/19 03/28/19 02:51 04:45 07:31 WBC RBC Hgb Hct MCV MCH MCHC RDW Plt Count Lymph % (Auto) [place] % (Auto) Eos % (Auto) Lymph # [place] # Eos # Seg Neutrophils % Seg Neuts % (Manual) Lymphocytes % (Manual) Monocytes % (Manual) Eosinophils % (Manual) Nucleated RBC % Seg Neutrophils # Seg Neutrophils # Man Lymphocytes # (Manual) Monocytes # (Manual) Eosinophils # (Manual) PT INR APTT 75.0 H* POC ABG pH POC ABG pCO2 POC ABG pO2 Sodium Potassium Chloride Carbon Dioxide BUN 22 H Creatinine Glucose POC Glucose Lactic Acid Calcium 7.8 L Phosphorus Magnesium Iron TIBC Ferritin 448.3 H Direct Bilirubin AST Total Creatine Kinase Troponin T Total Protein Albumin Prealbumin LDL Cholesterol Direct HDL Cholesterol Vitamin B12 TSH PTH Intact Urine Creatinine Urine Total Protein Vancomycin Trough Digoxin Salicylates Acetaminophen Crossmatch 03/28/19 03/29/19 03/29/19 14:30 04:40 04:40 WBC RBC 2.17 L Hgb 7.1 L Hct 20.8 L MCV MCH 33 H MCHC RDW 17.1 H Plt Count 122 L Lymph % (Auto) [place] % (Auto) Eos % (Auto) Lymph # [place] # Eos # Seg Neutrophils % Seg Neuts % (Manual) Lymphocytes % (Manual) Monocytes % (Manual) Eosinophils % (Manual) Nucleated RBC % Seg Neutrophils # Seg Neutrophils # Man Lymphocytes # (Manual) Monocytes # (Manual) Eosinophils # (Manual) PT INR APTT 70.3 H* POC ABG pH POC ABG pCO2 POC ABG pO2 Sodium Potassium Chloride Carbon Dioxide 31 H BUN 22 H Creatinine 0.5 L Glucose POC Glucose Lactic Acid Calcium 8.0 L Phosphorus Magnesium Iron TIBC Ferritin Direct Bilirubin AST Total Creatine Kinase Troponin T Total Protein 5.0 L Albumin 1.4 L Prealbumin LDL Cholesterol Direct HDL Cholesterol Vitamin B12 TSH PTH Intact Urine Creatinine Urine Total Protein Vancomycin Trough Digoxin Salicylates Acetaminophen Crossmatch 03/29/19 03/29/19 03/29/19 04:40 04:40 11:50 WBC RBC Hgb Hct MCV MCH MCHC RDW Plt Count Lymph % (Auto) [place] % (Auto) Eos % (Auto) Lymph # [place] # Eos # Seg Neutrophils % Seg Neuts % (Manual) Lymphocytes % (Manual) Monocytes % (Manual) Eosinophils % (Manual) Nucleated RBC % Seg Neutrophils # Seg Neutrophils # Man Lymphocytes # (Manual) Monocytes # (Manual) Eosinophils # (Manual) PT INR APTT 71.8 H* POC ABG pH POC ABG pCO2 POC ABG pO2 Sodium Potassium Chloride Carbon Dioxide BUN Creatinine Glucose POC Glucose 118 H Lactic Acid Calcium Phosphorus Magnesium Iron TIBC Ferritin Direct Bilirubin AST Total Creatine Kinase Troponin T Total Protein Albumin Prealbumin LDL Cholesterol Direct HDL Cholesterol Vitamin B12 TSH PTH Intact Urine Creatinine Urine Total Protein Vancomycin Trough Digoxin 3.5 H* Salicylates Acetaminophen Crossmatch 03/29/19 03/29/19 03/29/19 16:20 16:20 21:10 WBC RBC Hgb Hct MCV MCH MCHC RDW Plt Count Lymph % (Auto) [place] % (Auto) Eos % (Auto) Lymph # [place] # Eos # Seg Neutrophils % Seg Neuts % (Manual) Lymphocytes % (Manual) Monocytes % (Manual) Eosinophils % (Manual) Nucleated RBC % Seg Neutrophils # Seg Neutrophils # Man Lymphocytes # (Manual) Monocytes # (Manual) Eosinophils # (Manual) PT INR APTT 61.5 H* 112.6 H* POC ABG pH POC ABG pCO2 POC ABG pO2 Sodium Potassium Chloride Carbon Dioxide BUN Creatinine Glucose POC Glucose Lactic Acid Calcium Phosphorus Magnesium Iron TIBC Ferritin Direct Bilirubin AST Total Creatine Kinase Troponin T Total Protein Albumin Prealbumin LDL Cholesterol Direct HDL Cholesterol Vitamin B12 TSH PTH Intact Urine Creatinine Urine Total Protein Vancomycin Trough Digoxin 2.6 H* Salicylates Acetaminophen Crossmatch 03/29/19 03/30/19 03/30/19 22:30 04:42 04:42 WBC RBC Hgb 6.4 L Hct 18.9 L* MCV MCH MCHC RDW Plt Count Lymph % (Auto) [place] % (Auto) Eos % (Auto) Lymph # [place] # Eos # Seg Neutrophils % Seg Neuts % (Manual) Lymphocytes % (Manual) Monocytes % (Manual) Eosinophils % (Manual) Nucleated RBC % Seg Neutrophils # Seg Neutrophils # Man Lymphocytes # (Manual) Monocytes # (Manual) Eosinophils # (Manual) PT INR APTT 103.8 H* POC ABG pH POC ABG pCO2 POC ABG pO2 Sodium Potassium Chloride Carbon Dioxide BUN Creatinine Glucose POC Glucose Lactic Acid Calcium Phosphorus Magnesium Iron TIBC Ferritin Direct Bilirubin AST Total Creatine Kinase Troponin T Total Protein Albumin Prealbumin LDL Cholesterol Direct HDL Cholesterol Vitamin B12 TSH PTH Intact Urine Creatinine Urine Total Protein Vancomycin Trough Digoxin 2.6 H* Salicylates Acetaminophen Crossmatch 03/30/19 03/30/19 03/30/19 07:04 07:58 11:15 WBC RBC 2.66 L Hgb 8.5 L Hct 25.3 L D MCV MCH MCHC RDW 17.4 H Plt Count Lymph % (Auto) [place] % (Auto) Eos % (Auto) Lymph # [place] # Eos # Seg Neutrophils % Seg Neuts % (Manual) Lymphocytes % (Manual) Monocytes % (Manual) Eosinophils % (Manual) Nucleated RBC % Seg Neutrophils # Seg Neutrophils # Man Lymphocytes # (Manual) Monocytes # (Manual) Eosinophils # (Manual) PT INR APTT 50.5 H POC ABG pH POC ABG pCO2 POC ABG pO2 Sodium Potassium Chloride Carbon Dioxide BUN Creatinine Glucose POC Glucose Lactic Acid Calcium Phosphorus Magnesium Iron TIBC Ferritin Direct Bilirubin AST Total Creatine Kinase Troponin T Total Protein Albumin Prealbumin LDL Cholesterol Direct HDL Cholesterol Vitamin B12 TSH PTH Intact Urine Creatinine Urine Total Protein Vancomycin Trough Digoxin Salicylates Acetaminophen Crossmatch See Detail 03/30/19 03/30/19 03/30/19 11:36 17:40 22:51 WBC RBC 2.48 L Hgb 7.9 L Hct 23.9 L MCV MCH MCHC RDW 17.7 H Plt Count Lymph % (Auto) [place] % (Auto) Eos % (Auto) Lymph # [place] # Eos # Seg Neutrophils % Seg Neuts % (Manual) Lymphocytes % (Manual) Monocytes % (Manual) Eosinophils % (Manual) Nucleated RBC % Seg Neutrophils # Seg Neutrophils # Man Lymphocytes # (Manual) Monocytes # (Manual) Eosinophils # (Manual) PT INR APTT POC ABG pH POC ABG pCO2 POC ABG pO2 Sodium Potassium Chloride Carbon Dioxide BUN Creatinine Glucose POC Glucose 129 H 112 H Lactic Acid Calcium Phosphorus Magnesium Iron TIBC Ferritin Direct Bilirubin AST Total Creatine Kinase Troponin T Total Protein Albumin Prealbumin LDL Cholesterol Direct HDL Cholesterol Vitamin B12 TSH PTH Intact Urine Creatinine Urine Total Protein Vancomycin Trough Digoxin Salicylates Acetaminophen Crossmatch 03/30/19 03/31/19 03/31/19 23:47 05:00 11:35 WBC RBC Hgb 8.0 L Hct 23.7 L MCV MCH MCHC RDW Plt Count Lymph % (Auto) [place] % (Auto) Eos % (Auto) Lymph # [place] # Eos # Seg Neutrophils % Seg Neuts % (Manual) Lymphocytes % (Manual) Monocytes % (Manual) Eosinophils % (Manual) Nucleated RBC % Seg Neutrophils # Seg Neutrophils # Man Lymphocytes # (Manual) Monocytes # (Manual) Eosinophils # (Manual) PT INR APTT POC ABG pH POC ABG pCO2 POC ABG pO2 Sodium Potassium Chloride Carbon Dioxide BUN Creatinine Glucose POC Glucose 112 H 106 H Lactic Acid Calcium Phosphorus Magnesium Iron TIBC Ferritin Direct Bilirubin AST Total Creatine Kinase Troponin T Total Protein Albumin Prealbumin LDL Cholesterol Direct HDL Cholesterol Vitamin B12 TSH PTH Intact Urine Creatinine Urine Total Protein Vancomycin Trough Digoxin Salicylates Acetaminophen Crossmatch 04/01/19 04/02/19 04/03/19 11:38 08:33 06:15 WBC RBC 2.11 L Hgb 7.8 L 6.8 L Hct 23.1 L 20.5 L MCV 98 H MCH MCHC RDW 17.6 H Plt Count Lymph % (Auto) [place] % (Auto) 12.1 H Eos % (Auto) 7.4 H Lymph # [place] # Eos # Seg Neutrophils % Seg Neuts % (Manual) Lymphocytes % (Manual) Monocytes % (Manual) Eosinophils % (Manual) Nucleated RBC % Seg Neutrophils # Seg Neutrophils # Man Lymphocytes # (Manual) Monocytes # (Manual) Eosinophils # (Manual) PT INR APTT POC ABG pH POC ABG pCO2 POC ABG pO2 Sodium Potassium Chloride Carbon Dioxide BUN Creatinine Glucose POC Glucose 136 H Lactic Acid Calcium Phosphorus Magnesium Iron TIBC Ferritin Direct Bilirubin AST Total Creatine Kinase Troponin T Total Protein Albumin Prealbumin LDL Cholesterol Direct HDL Cholesterol Vitamin B12 TSH PTH Intact Urine Creatinine Urine Total Protein Vancomycin Trough Digoxin Salicylates Acetaminophen Crossmatch 04/03/19 04/04/19 04/04/19 08:22 05:20 05:20 WBC RBC 2.27 L Hgb 7.3 L 7.3 L Hct 21.9 L 22.0 L MCV MCH MCHC RDW 16.8 H Plt Count Lymph % (Auto) [place] % (Auto) 12.2 H Eos % (Auto) 6.6 H Lymph # [place] # 1.0 H Eos # 0.5 H Seg Neutrophils % Seg Neuts % (Manual) Lymphocytes % (Manual) Monocytes % (Manual) Eosinophils % (Manual) Nucleated RBC % Seg Neutrophils # Seg Neutrophils # Man Lymphocytes # (Manual) Monocytes # (Manual) Eosinophils # (Manual) PT INR APTT POC ABG pH POC ABG pCO2 POC ABG pO2 Sodium Potassium Chloride Carbon Dioxide BUN Creatinine 0.4 L Glucose POC Glucose Lactic Acid Calcium 7.9 L Phosphorus 2.20 L Magnesium 1.40 L Iron TIBC Ferritin Direct Bilirubin AST Total Creatine Kinase Troponin T Total Protein Albumin Prealbumin LDL Cholesterol Direct HDL Cholesterol Vitamin B12 TSH PTH Intact Urine Creatinine Urine Total Protein Vancomycin Trough Digoxin Salicylates Acetaminophen Crossmatch 04/05/19 04/05/19 04/05/19 03:30 03:30 06:51 WBC RBC 2.09 L Hgb 6.7 L Hct 20.1 L MCV MCH MCHC RDW 16.6 H Plt Count Lymph % (Auto) [place] % (Auto) 12.6 H Eos % (Auto) 6.2 H Lymph # [place] # 1.0 H Eos # 0.5 H Seg Neutrophils % Seg Neuts % (Manual) Lymphocytes % (Manual) Monocytes % (Manual) Eosinophils % (Manual) Nucleated RBC % Seg Neutrophils # Seg Neutrophils # Man Lymphocytes # (Manual) Monocytes # (Manual) Eosinophils # (Manual) PT INR APTT POC ABG pH POC ABG pCO2 POC ABG pO2 Sodium Potassium Chloride Carbon Dioxide BUN Creatinine 0.4 L Glucose POC Glucose Lactic Acid Calcium 7.6 L Phosphorus Magnesium Iron TIBC Ferritin Direct Bilirubin AST Total Creatine Kinase Troponin T Total Protein Albumin Prealbumin LDL Cholesterol Direct HDL Cholesterol Vitamin B12 TSH PTH Intact Urine Creatinine Urine Total Protein Vancomycin Trough Digoxin Salicylates Acetaminophen Crossmatch See Detail 04/05/19 04/05/19 04/06/19 13:07 23:50 09:36 WBC RBC 2.56 L Hgb 8.4 L Hct 23.5 L MCV MCH 33 H MCHC 36 H RDW 17.9 H Plt Count Lymph % (Auto) [place] % (Auto) Eos % (Auto) Lymph # [place] # Eos # Seg Neutrophils % Seg Neuts % (Manual) Lymphocytes % (Manual) Monocytes % (Manual) Eosinophils % (Manual) Nucleated RBC % Seg Neutrophils # Seg Neutrophils # Man Lymphocytes # (Manual) Monocytes # (Manual) Eosinophils # (Manual) PT INR APTT POC ABG pH POC ABG pCO2 POC ABG pO2 Sodium Potassium Chloride Carbon Dioxide BUN Creatinine Glucose POC Glucose 106 H 109 H Lactic Acid Calcium Phosphorus Magnesium Iron TIBC Ferritin Direct Bilirubin AST Total Creatine Kinase Troponin T Total Protein Albumin Prealbumin LDL Cholesterol Direct HDL Cholesterol Vitamin B12 TSH PTH Intact Urine Creatinine Urine Total Protein Vancomycin Trough Digoxin Salicylates Acetaminophen Crossmatch 04/07/19 04/07/19 04/07/19 06:50 06:50 11:37 WBC RBC Hgb 8.6 L Hct 25.6 L MCV MCH MCHC RDW Plt Count Lymph % (Auto) [place] % (Auto) Eos % (Auto) Lymph # [place] # Eos # Seg Neutrophils % Seg Neuts % (Manual) Lymphocytes % (Manual) Monocytes % (Manual) Eosinophils % (Manual) Nucleated RBC % Seg Neutrophils # Seg Neutrophils # Man Lymphocytes # (Manual) Monocytes # (Manual) Eosinophils # (Manual) PT INR APTT POC ABG pH POC ABG pCO2 POC ABG pO2 Sodium Potassium Chloride Carbon Dioxide BUN Creatinine 0.6 L Glucose POC Glucose 118 H Lactic Acid Calcium 8.1 L Phosphorus Magnesium Iron TIBC Ferritin Direct Bilirubin AST Total Creatine Kinase Troponin T Total Protein Albumin Prealbumin LDL Cholesterol Direct HDL Cholesterol Vitamin B12 TSH PTH Intact Urine Creatinine Urine Total Protein Vancomycin Trough Digoxin Salicylates Acetaminophen Crossmatch 04/07/19 04/08/19 18:29 05:46 WBC RBC Hgb Hct MCV MCH MCHC RDW Plt Count Lymph % (Auto) [place] % (Auto) Eos % (Auto) Lymph # [place] # Eos # Seg Neutrophils % Seg Neuts % (Manual) Lymphocytes % (Manual) Monocytes % (Manual) Eosinophils % (Manual) Nucleated RBC % Seg Neutrophils # Seg Neutrophils # Man Lymphocytes # (Manual) Monocytes # (Manual) Eosinophils # (Manual) PT INR APTT POC ABG pH POC ABG pCO2 POC ABG pO2 Sodium Potassium Chloride Carbon Dioxide BUN Creatinine Glucose POC Glucose 108 H 113 H Lactic Acid Calcium Phosphorus Magnesium Iron TIBC Ferritin Direct Bilirubin AST Total Creatine Kinase Troponin T Total Protein Albumin Prealbumin LDL Cholesterol Direct HDL Cholesterol Vitamin B12 TSH PTH Intact Urine Creatinine Urine Total Protein Vancomycin Trough Digoxin Salicylates Acetaminophen Crossmatch
--- NOTE | 2019-04-08 12:01 | Hem/Onc Progress Note ---
Assessment and Plan h/o low plt - at admission DVT was on home hospice 1. h/o Thrombocytopenia. This may be secondary to medications. The platelets were even low at admission. The differential includes infection versus a marrow issue. At this time, platelets are adequate, we will follow the trend. Because of clinical suspicion, HIT test has been ordered. Argatroban ordered. Heparin has been stopped. plt have improved 2. h/o Pneumonia. 3. h/o Encephalopathy. 4. Respiratory failure, on vent. 5. h/o Renal impairment. 6. Deep vein thrombosis. Her immobilization may have a role. Central line also may have a role. Acute Right common femoral DVT and right IJ vein thrombosis the patient was on Argatroban. IVC filter may prevent the leg DVT from progression to PE; however, for IJ DVT, we have limited options. The patient was on home hospice as per notes. Atrial fibrillation, she was on medications. History of anemia, deficiency investigations. Leukocytosis, likely reactive. B12 level more than 2000, serum iron 32. anemia - IV iron trial 04/08/2019 anemia - off argatroban - HIT test negative h/o PRBC it appears that the pt is possibly bleeding - based on hb fall - hence anticoag has been held if hb improves - ? oral anticoag an option - eliquis vs xarelto there is a question about trach peg - seen by sx team for same IVC filter placed d/w dr Berumen - Patient Problems (1) Thrombocytopenia Current Visit: Yes Status: Acute Subjective Date of service: 04/08/19 Principal diagnosis: DVT and anemia Interval history: awake - opens eye Objective - Exam Narrative Exam: Pain - none - on vent General appearance intubated Performance status - complete help needed Eyes - no icterus ENT no thrush LNs cervical not palpable Neck - no LNs/mass Respiratory Normal Breath sounds - CTA anteriorly CVS S1 S2 + Extremities normal temperature - flaccid General GI Soft - distended Rectal deferred female - deferred Skin warm Musculoskeletal not able to evaluate Neurologically - on vent - Constitutional Vitals: Last Vital Signs Temp 97.8 F 04/08/19 08:00 Pulse 105 H 04/08/19 09:00 Resp 26 H 04/08/19 09:00 BP 145/78 04/08/19 09:00 Pulse Ox 95 04/08/19 09:00 - Labs Lab Results: Laboratory Results - last 24 hr 04/07/19 04/08/19 04/08/19 18:29 00:05 05:46 POC Glucose 108 H 103 113 H Medications & Allergies - Medications Allergies/Adverse Reactions: Allergies No Known Allergies Allergy (Unverified 03/19/19 13:11) Home Medications: Home Medications Medication Instructions Recorded Confirmed Last Taken Type Aspirin EC 81 mg PO DAILY 03/20/19 03/20/19 Unknown History Divalproex Sodium 375 mg PO Q8H PRN 03/20/19 03/20/19 Unknown History Metoprolol [Lopressor TAB] 50 mg PO BID 03/20/19 03/20/19 Unknown History Sennosides/Docusate Sodium [Senna 8.6 mg PO BID PRN 03/20/19 03/20/19 Unknown History Plus Tablet] levETIRAcetam [Keppra TAB] 500 mg PO BID 03/20/19 03/20/19 Unknown History Active Medications: Generic Name Dose Route Start Last Admin Trade Name Freq PRN Reason Stop Dose Admin Acetaminophen 650 mg 03/24/19 23:48 04/08/19 03:29 Tylenol FEEDTUBE 650 mg Q6H PRN Administration Fever >101 Albuterol 2.5 mg 03/19/19 23:58 Proventil IH Q3HRT PRN Shortness Of Breath Albuterol/Ipratropium 1 ampul 03/20/19 02:00 04/08/19 10:01 Duoneb *Not For Prn Use* IH 1 ampul Q6HRT YUSUF Administration Amiodarone HCl 200 mg 03/22/19 22:00 04/08/19 10:28 Cordarone PO 200 mg BID YUSUF Administration Lipase/Protease/Amylase 1 each 04/07/19 15:50 Pancretobi Sargent 10,500 Unit FEEDTUBE PRN PRN For Clogged Feeding Tube Aspirin 81 mg 03/21/19 10:00 04/08/19 10:27 Baby Aspirin PO 81 mg DAILY YUSUF Administration Budesonide 0.5 mg 03/19/19 23:45 04/08/19 10:07 Pulmicort IH 0.5 mg Q12HRT YUSUF Administration Dextrose 50 ml 03/19/19 23:58 03/21/19 16:29 D50w (25gm) Syringe IV 50 ml PRN PRN Administration Hypoglycemia Famotidine 20 mg 03/22/19 10:00 04/08/19 10:27 Pepcid PO 20 mg BID YUSUF Administration Fentanyl 50 mcg 03/19/19 12:45 03/19/19 13:26 Sublimaze IV 50 mcg Q10MIN PRN Administration ANALGESIA Hydromorphone HCl 0.5 mg 03/19/19 23:58 04/07/19 09:48 Dilaudid IV 0.5 mg Q3H PRN Administration Pain , Severe (7-10) Hydrophilic Ointment 1 applic 03/19/19 12:45 Vaseline Lip Therapy TP Q2HR PRN Dry Lips Fentanyl Citrate 2,000 mcg in 100 mls @ 2.835 mls/hr 03/19/19 14:00 03/21/19 11:33 Fentanyl Drip Premix IV 0 mcg/kg/hr TITR YUSUF 0 mls/hr Titration Protocol 1 MCG/KG/HR Norepinephrine 4 mg in 250 mls @ 7.5 mls/hr 03/25/19 11:00 03/30/19 23:45 Levophed Drip 4 Mg/Ns 250 Ml IV 0 mcg/min TITR YUSUF 0 mls/hr Titration Protocol 2 MCG/MIN Insulin Human Lispro 0 unit 03/20/19 00:00 04/08/19 10:00 Humalog SUB-Q Not Given Q6HR [facility] Protocol Metoclopramide HCl 5 mg 03/20/19 00:12 Reglan IV Q6H PRN Nausea And Vomiting Metoprolol Tartrate 2.5 mg 03/23/19 13:17 03/24/19 21:20 Lopressor IV 2.5 mg Q2HR PRN Administration HR >150 Multi-Ingred Cream/Lotion/Oil/Oint 1 applic 03/19/19 12:45 Artificial Tears Ophth Oint OU Q4HR PRN Dry Eye(s) Ondansetron HCl 4 mg 03/19/19 23:58 Zofran IV Q8H PRN Nausea And Vomiting Promethazine HCl 25 mg 03/19/19 23:58 Phenergan NV Q6H PRN N/V IF NPO AND NO IV ACCESS Simple Syrup 15 ml 04/07/19 15:50 Simple Syrup FEEDTUBE PRN PRN Hypoglycemia Simple Syrup 30 ml 04/07/19 15:50 Simple Syrup FEEDTUBE PRN PRN Hypoglycemia Sodium Bicarbonate 325 mg 04/07/19 15:50 Sodium Bicarbonate FEEDTUBE PRN PRN For Clogged Feeding Tube Sodium Chloride 10 ml 03/20/19 10:00 04/08/19 10:27 Sodium Chloride Flush Syringe 10 Ml IV 10 ml BID YUSUF Administration Sodium Chloride 10 ml 03/19/19 23:58 04/07/19 10:45 Sodium Chloride Flush Syringe 10 Ml IV 10 ml PRN PRN Administration LINE FLUSH Trimethoprim/Sulfamethoxazole 1 each 04/07/19 14:00 04/08/19 10:27 Bactrim Ds PO 04/14/19 22:01 1 each Q12HR YUSUF Administration
--- NOTE | 2019-04-08 16:00 | Progress Note ---
Assessment and Plan Cultures/ID related labs: 04/05 BCx - NGTD 04/04 Sputum - Stenotrophomonas maltophila. 03/27 tracheal aspirate - heavy neutrophils, usual resp maday Blood culture 03/19/2019 negative. Urine culture 03/19/2019 negative. 03/23/2019 tracheal aspirate culture: Usual resp maday 04/05/2019 blood culture no growth so far Assessment: 73 y/o female with history of dementia, prior CVA, on home hospice admitted on 03/20/2019 brought by EMS due to altered mental status: 1) Sepsis with septic shock: new fever this weekend ? pneumonia ? vulvar abscess/cellulitis 2) Bilateral pneumonia: Her radiography is largely unchanged. Her sputum cultures have grown S. maltophila, which is both a common infection in intubated patients as well as a common colonizer of tubes. She has recurrent overnight fevers, which have improved since the cessation of antibiotics, but are ongoing. Given her general frailty and duration of intubation and upcoming trach placement, I would recommend a 7 day course of Bactrim. 3) Acute encephalopathy: CT head without contrast shows encephalomalacia in the entire right cerebral hemisphere, volume loss in the left cerebral hemisphere, no acute parenchymal lesion in the brain. 4) Acute respiratory failure: remains intubated, on the vent. Responsive to commands today. 5) HA: improved. 6) Persistent fevers - Improved with cessation of antibiotics.Continue to monitor, occasional recurrences. 7) DVTs - DVT of RIJ at catheter site as well as R common femoral, and a superficial thrombus in R greater saphenous. IVC filter placed We will sign off for now. Please don't hesitate to call if you have any questions. Recommendations: stop bactrim start fluconazole, linezolid and continue bactrim for now to cover groin/vulvar infection and Steno (linezolid to avoid vancomycin/bactrim nephrotoxicity) obtain blood culture, UA and urine culture, vaginal culture repeat CXR consider pelvic CT if not better to have trach next week monitor closely Guarded prognosis, was on home hospice prior to admission Claire Lyn MD Infectious Diseases [facility] ([facility] M [phone] O [phone] Subjective Date of service: 04/08/19 Principal diagnosis: anemia - dvt Interval history: Remains on the vent, sedated, tmax 101.8. No pressors. Objective - Exam Narrative Exam: General appearance: sedated intubated fiO2 30% p6 Eyes: anicteric sclerae, moist conjunctivae; no lid-lag; PERRLA HENT: Atraumatic; oropharynx +ETT Lungs: CTA CV: RRR Abdomen: Soft, non-tender Extremities: vaughn edema, no cyanosis Skin: vaughn groin edema and rash, right labia edema Psych: no agitated Neuro: sedated no agitated right IJ - Constitutional Vitals: Vital Signs Temp Pulse Resp BP Pulse Ox 97.8 F 110 H 19 118/55 94 04/08/19 14:02 04/08/19 14:56 04/08/19 14:56 04/08/19 13:00 04/08/19 13:00 Temperature -Last 24 Hours Temperature 97.8 F Temperature 97.8 F Temperature 101.8 F Temperature 99.7 F Temperature 101.2 F Temperature 99.6 F - Labs CBC & Chem 7: 04/07/19 06:50 04/07/19 06:50 Labs: Abnormal lab results 04/07/19 04/08/19 Range/Units 18:29 05:46 POC Glucose 108 H 113 H (70-105)
--- NOTE | 2019-04-08 17:05 | XRay Report ---
CHEST 1 VIEW 04/08/2019 4:38 PM INDICATION / CLINICAL INFORMATION: eval for worsening pneumonia. COMPARISON: 04/04/19 FINDINGS: SUPPORT DEVICES: Endotracheal tube, esophagogastric tube, and right jugular central line are unchange d. HEART / MEDIASTINUM: Stable. LUNGS / PLEURA: Diffuse, bilateral, patchy pulmonary opacities are unchanged. Small bilateral pleural effusions are unchanged. No pneumothorax. ADDITIONAL FINDINGS: No significant additional findings. IMPRESSION: 1. No significant change. Signer Name: Krystal Delarosa MD Signed: 04/08/2019 5:00 PM Workstation Name: [id number]
[2019-04-08] MEDS: DIFLUCAN 200 MG/100 ML BAG IV SCH (17:13)
[2019-04-08] MEDS: ZYVOX 600MG/300ML 600 MG/300 ML BAG IV SCH (17:37)
--- NOTE | 2019-04-08 17:52 | Progress Note ---
Assessment and Plan Acute metabolic encephalopathy, - cont supportive care, CT head negative - patient now appears at her baseline per the family Acute hypoxic respiratory s/p ETT placement: consulted CCM, difficult to wean off vent, scheduled nebs - surgery consulted for trach and PEG - planned for next week at bedside Severe Anemia: Drop in H/H - status post total 3 units of PRBC transfusion - Closely monitor and transfuse as needed Digoxin toxicity; supratherapeutic level, off digoxin Acute Right common femoral DVT and right IJ vein thrombosis - argatroban drip dced due to severe anemia[requiring transfusion] - planned for IVC filter by IR, but already have one in place - no AC for now, monitor clinically Sepsis due to aspiration pneumonia; - source pneumonia but having persistent fever. UA negative. Blood culture 03/19/2019 no growth. Urine culture 03/19/2019 negative. - ID following, Has completed full course for pneumonia. Plan to stop antibiotics today and If patient decompensates would restart vanc and wiley. Septic shock: off pressor, weaned off, BP now stable Paroxysmal Atrial fib, Now NSR - on amioderone, metoprolol HA (acute kidney injury), atn and vasomotor nephrology, poa: IV fluids for now, Nephrology consulted - renal function improved Anemia, due to CD vs other cause - ordered stool for occult blood, iron study - transfused one unit PRBC RUL Aspiration pneumonia: treated with abx Hypernatremia: improved with Iv fluid Hypomagnesemia: replete and follow as needed Elevated troponin level/ NSTEMI II; consulted Cardiology, conservative mx DVT prophylaxis DNR code status CCT 34 minutes Brief History Patient is a 73 yo woman without a clear past medical history due to patient presentation of being Altered requiring intubation upon admission. Upon arrival to the emergency room, the patient is obtunded, breathing without difficulty, desaturating, without a gag reflex. Therefore, patient placed on nasal cannula at 15 L/m, and then intubated without difficulty. Patient started empirically on the sepsis pathway, with broad-spectrum antibiotics, aggressive IV fluids, a nd post intubation sedation package. She is difficult to wean off from vent, s/p bronch. venous doppler showed right internal jugular vein thrombus associated with right internal jugular vein triple lumen catheter and right common femoral vein DVT. Patient was on anticoagulation however had significant anemia requiring blood transfusion as argatroban discontinued. Patient is unable to wean with poor prognosis, family requested DO NOT RESUSCITATE status And initially decided hospice, however they changed their mind and now considering trach and PEG and SNF placement. * pCXR FINDINGS: SUPPORT DEVICES: Endotracheal tube is in place in good position above the liam. HEART / MEDIASTINUM: No significant abnormality. LUNGS / PLEURA: There is moderate bibasilar lung consolidation and slight right upper lobe consolidation as well. No edema or effusions. No pneumothorax. ADDITIONAL FINDINGS: No significant additional findings. IMPRESSION: 1. Endotracheal tube in good position. * CT head without contrast IMPRESSION: Encephalomalacia in the entire right cerebral hemisphere Volume loss in the left cerebral hemisphere, n0 acute parenchymal lesion in the brain. Hospitalist Physical Gen: critcally ill, thin frail, intubated, HEENT: NCAT, EOMI, PERRL, OP Clear Neck: supple, no adenopathy, no thyromegaly, no JVD CVS/Heart: RRR, normal S1S2, pulses present bilaterally Chest/Lungs: CTA B, Symmetrical chest expansion, good air entry bilaterally GI/Abdomen: soft, NTND, good bowel sounds, no guarding or rebound /Bladder: no suprapubic tenderness, no CVA or paraspinal tenderness Extermity/Skin: no c/c/e, no obvious rash, + edema MSK: no joint swelling Neuro: intubated Psych: intubated Subjective Date of service: 04/08/19 Principal diagnosis: anemia - dvt Interval history: Pt seen and examined remained intubated, off pressor discussed with family and RN at the bedside surgery consulted for trach and PEG Objective - Constitutional Vitals: Vital Signs - 12hr 04/08/19 04/08/19 04/08/19 06:00 07:00 08:00 Temperature 97.8 F Pulse Rate 102 H 105 H 102 H Pulse Rate [ Anterior Bilateral Throughout] Respiratory 17 31 H 28 H Rate Respiratory Rate [Anterior Bilateral Throughout] Blood Pressure 122/61 127/67 161/71 O2 Sat by Pulse 93 94 94 Oximetry 04/08/19 04/08/19 04/08/19 09:00 09:30 10:00 Temperature Pulse Rate 105 H 107 H Pulse Rate [ 109 H Anterior Bilateral Throughout] Respiratory 26 H 25 H Rate Respiratory 18 Rate [Anterior Bilateral Throughout] Blood Pressure 145/78 156/81 O2 Sat by Pulse 95 93 Oximetry 04/08/19 04/08/19 04/08/19 11:00 12:00 13:00 Temperature Pulse Rate 113 H 109 H 103 H Pulse Rate [ Anterior Bilateral Throughout] Respiratory 37 H 30 H 28 H Rate Respiratory Rate [Anterior Bilateral Throughout] Blood Pressure 126/66 143/64 118/55 O2 Sat by Pulse 91 93 94 Oximetry 04/08/19 04/08/19 04/08/19 14:00 14:02 14:56 Temperature 97.8 F Pulse Rate 106 H Pulse Rate [ 110 H Anterior Bilateral Throughout] Respiratory 28 H Rate Respiratory 19 Rate [Anterior Bilateral Throughout] Blood Pressure 141/75 O2 Sat by Pulse 96 Oximetry 04/08/19 04/08/19 04/08/19 15:01 16:00 17:00 Temperature Pulse Rate 107 H 108 H 107 H Pulse Rate [ Anterior Bilateral Throughout] Respiratory 15 26 H 22 Rate Respiratory Rate [Anterior Bilateral Throughout] Blood Pressure 138/79 139/75 148/68 O2 Sat by Pulse 93 96 97 Oximetry - Labs CBC & Chem 7: 04/07/19 06:50 04/07/19 06:50 Labs: Abnormal lab results 04/07/19 04/08/19 Range/Units 18:29 05:46 POC Glucose 108 H 113 H (70-105)
[2019-04-08 20:06] LABS: Bilirubin,Urine NEG (Negative); Blood,Urine NEG (Negative); Color,Urine Amber (Yellow); Mucus,Urine FEW /HPF; Urobilinogen,Urine < 2.0 mg/dL (<2.0)
[2019-04-09] MEDS: DUONEB *Not for PRN Use IH SCH ×4 (02:40→19:21)
--- NOTE | 2019-04-09 08:37 | Progress Note ---
Assessment and Plan Acute metabolic encephalopathy, - cont supportive care, CT head negative - patient now appears at her baseline per the family Acute hypoxic respiratory s/p ETT placement: consulted CCM, difficult to wean off vent, scheduled nebs - surgery consulted for trach and PEG - planned for next week at bedside Severe Anemia: Drop in H/H - status post total 3 units of PRBC transfusion - Closely monitor and transfuse as needed Digoxin toxicity; supratherapeutic level, off digoxin Acute Right common femoral DVT and right IJ vein thrombosis - argatroban drip dced due to severe anemia[requiring transfusion] - planned for IVC filter by IR, but already have one in place - no AC for now, monitor clinically Sepsis due to aspiration pneumonia; - source pneumonia but having persistent fever. UA negative. Blood culture 03/19/2019 no growth. Urine culture 03/19/2019 negative. - ID following, Has completed full course for pneumonia and abx stopped on 04/04 for aspiration PNA - monitored fever curve - started on abx again by ID on 04/07 for persistent fever with bactrim for 7 days Septic shock: off pressor, weaned off, BP now stable Paroxysmal Atrial fib, Now NSR - on amioderone, metoprolol HA (acute kidney injury), atn and vasomotor nephrology, poa: IV fluids for now, Nephrology consulted - renal function improved Anemia, due to CD vs other cause - ordered stool for occult blood, iron study - transfused one unit PRBC RUL Aspiration pneumonia: treated with abx Hypernatremia: improved with Iv fluid Hypomagnesemia: replete and follow as needed Elevated troponin level/ NSTEMI II; consulted Cardiology, conservative mx DVT prophylaxis DNR code status CCT 34 minutes Brief History Patient is a 73 yo woman without a clear past medical history due to patient presentation of being Altered requiring intubation upon admission. Upon arrival to the emergency room, the patient is obtunded, breathing without difficulty, desaturating, without a gag reflex. Therefore, patient placed on nasal cannula at 15 L/m, and then intubated without difficulty. Patient started empirically on the sepsis pathway, with broad-spectrum antibiotics, aggressive IV fluids, and post intubation sedation package. She is difficult to wean off from vent, s/p bronch. venous doppler showed right internal jugular vein thrombus associated with right internal jugular vein triple lumen catheter and right common femoral vein DVT. Patient was on anticoagulation however had significant anemia requiring blood transfusion as argatroban discontinued. Patient is unable to wean with poor prognosis, family requested DO NOT RESUSCITATE status And initially decided hospice, however they changed their mind and now considering trach and PEG and SNF placement. * pCXR FINDINGS: SUPPORT DEVICES: Endotracheal tube is in place in good position above the liam. HEART / MEDIASTINUM: No significant abnormality. LUNGS / PLEURA: There is moderate bibasilar lung consolidation and slight right upper lobe consolidation as well. No edema or effusions. No pneumothorax. ADDITIONAL FINDINGS: No significant additional findings. IMPRESSION: 1. Endotracheal tube in good position. * CT head without contrast IMPRESSION: Encephalomalacia in the entire right cerebral hemisphere Volume loss in the left cerebral hemisphere, n0 acute parenchymal lesion in the brain. Hospitalist Physical Gen: critcally ill, thin frail, intubated, HEENT: NCAT, EOMI, PERRL, OP Clear Neck: supple, no adenopathy, no thyromegaly, no JVD CVS/Heart: RRR, normal S1S2, pulses present bilaterally Chest/Lungs: CTA B, Symmetrical chest expansion, good air entry bilaterally GI/Abdomen: soft, NTND, good bowel sounds, no guarding or rebound /Bladder: no suprapubic tenderness, no CVA or paraspinal tenderness Extermity/Skin: no c/c/e, no obvious rash, + edema MSK: no joint swelling Neuro: intubated Psych: intubated Subjective Date of service: 04/09/19 Principal diagnosis: anemia - dvt Interval history: Pt seen and examined remained intubated, off pressor discussed with family and RN at the bedside surgery consulted for trach and PEG Objective - Constitutional Vitals: Vital Signs - 12hr 04/08/19 04/08/19 04/08/19 21:00 22:00 23:00 Temperature 100.4 F H Pulse Rate 108 H 110 H 113 H Pulse Rate [ Anterior Bilateral Throughout] Respiratory 21 25 H 31 H Rate Respiratory Rate [Anterior Bilateral Throughout] Blood Pressure 128/71 161/80 177/124 O2 Sat by Pulse 95 96 93 Oximetry 04/08/19 04/09/19 04/09/19 23:06 00:00 01:00 Temperature Pulse Rate 111 H 110 H 110 H Pulse Rate [ Anterior Bilateral Throughout] Respiratory 24 28 H Rate Respiratory Rate [Anterior Bilateral Throughout] Blood Pressure 177/124 181/83 191/74 O2 Sat by Pulse 96 92 94 Oximetry 04/09/19 04/09/19 04/09/19 02:00 02:52 03:00 Temperature Pulse Rate 113 H 111 H Pulse Rate [ 114 H Anterior Bilateral Throughout] Respiratory 29 H 22 Rate Respiratory 20 Rate [Anterior Bilateral Throughout] Blood Pressure 143/74 153/71 O2 Sat by Pulse 92 91 Oximetry 04/09/19 04/09/19 04/09/19 03:36 04:00 05:00 Temperature 99.7 F H Pulse Rate 108 H 104 H 102 H Pulse Rate [ Anterior Bilateral Throughout] Respiratory 25 H 21 Rate Respiratory Rate [Anterior Bilateral Throughout] Blood Pressure 121/59 131/65 122/67 O2 Sat by Pulse 95 95 94 Oximetry - Labs CBC & Chem 7: 04/10/19 05:10 04/10/19 05:10
[2019-04-09] MEDS: PULMICORT IH SCH ×2 (08:45→19:21)
[2019-04-09 09:24] LABS: Hematocrit 24.4 % (30.3-42.9); Hemoglobin 7.9 gm/dl (10.1-14.3); Mean Corpuscular HGB Conc 32 % (30-34); Mean Corpuscular Volume 94 fl (79-97); Platelet Count 455 K/mm3 (140-440); Red Blood Count 2.58 M/mm3 (3.65-5.03); Red Cell Distribution Width 17.3 % (13.2-15.2)
[2019-04-09] MEDS: HumaLOG SUB-Q SCH ×3 (09:28→20:09)
[2019-04-09] MEDS: ZYVOX 600MG/300ML 600 MG/300 ML BAG IV SCH ×2 (10:04→17:44)
[2019-04-09] MEDS: BABY ASPIRIN PO SCH (10:05)
[2019-04-09] MEDS: BACTRIM DS PO SCH ×2 (10:05→21:17)
[2019-04-09] MEDS: PEPCID PO SCH ×2 (10:07→21:17)
[2019-04-09] MEDS: SODIUM CHLORIDE FLUSH SYRINGE 10 ML IV SCH (10:07)
[2019-04-09] MEDS: CORDARONE PO SCH ×2 (10:07→21:17)
--- NOTE | 2019-04-09 11:04 | Progress Note ---
Assessment and Plan 73 y/o female found unresponsive now intubated and septic, etiology thought secondary to pneumonia with anemia and thrombocytopenia, and persistent fevers found to have multiple DVT's. 1. Trach and Peg at bedside next week (Wednesday) 2. Attempt daily PSV trials 3. Will likely need LTACH 4. Follow up repeat cultures 5. Will speak with ID for clarity CCT 31 minutes. Subjective Date of service: 04/09/19 Principal diagnosis: anemia - dvt Interval history: No acute events. Spiked temp yesterday morning. Reviewed ID note. States they signed off and stopped bactrim but still on OCT. Still spiking temps but lower grade (100.7) Objective Vital Signs - 12hr 04/08/19 04/09/19 04/09/19 23:06 00:00 01:00 Temperature Pulse Rate 111 H 110 H 110 H Pulse Rate [ Anterior Bilateral Throughout] Respiratory 24 28 H Rate Respiratory Rate [Anterior Bilateral Throughout] Blood Pressure 177/124 181/83 191/74 O2 Sat by Pulse 96 92 94 Oximetry 04/09/19 04/09/19 04/09/19 02:00 02:52 03:00 Temperature Pulse Rate 113 H 111 H Pulse Rate [ 114 H Anterior Bilateral Throughout] Respiratory 29 H 22 Rate Respiratory 20 Rate [Anterior Bilateral Throughout] Blood Pressure 143/74 153/71 O2 Sat by Pulse 92 91 Oximetry 04/09/19 04/09/19 04/09/19 03:36 04:00 05:00 Temperature 99.7 F H Pulse Rate 108 H 104 H 102 H Pulse Rate [ Anterior Bilateral Throughout] Respiratory 25 H 21 Rate Respiratory Rate [Anterior Bilateral Throughout] Blood Pressure 121/59 131/65 122/67 O2 Sat by Pulse 95 95 94 Oximetry 04/09/19 04/09/19 04/09/19 06:00 07:00 08:00 Temperature 100.7 F H Pulse Rate 105 H 98 H 102 H Pulse Rate [ Anterior Bilateral Throughout] Respiratory 20 30 H 23 Rate Respiratory Rate [Anterior Bilateral Throughout] Blood Pressure 129/59 146/63 129/62 O2 Sat by Pulse 99 97 96 Oximetry 04/09/19 04/09/19 04/09/19 08:45 10:07 10:32 Temperature Pulse Rate 100 H 104 H 100 H Pulse Rate [ Anterior Bilateral Throughout] Respiratory 42 H 48 H Rate Respiratory Rate [Anterior Bilateral Throughout] Blood Pressure 129/62 137/69 O2 Sat by Pulse 95 93 91 Oximetry Constitutional: other (intubated, critically ill on ventilator, awake) Eyes: non-icteric ENT: other (intubated ) Neck: supple Effort: normal Ascultation: Bilateral: diminished breath sounds (grossly clear ), rales (coarse bilat ), other (coarse BS bilaterally) Percussion: Bilateral: not dull, dull Cardiovascular: other (tachy AF, no mrg) Gastrointestinal: normoactive bowel sounds, soft, non-tender, non-distended Integumentary: normal Extremities: anasarca Neurologic: other (awake, alert, L sided hemiparesis, contractures upper extremities) Psychiatric: mood appropriate, affect normal CBC and BMP: 04/09/19 09:15 04/07/19 06:50 ABG, PT/INR, D-dimer: ABG POC ABG pH 7.411 (7.35-7.45) 03/25/19 05:40 POC ABG pO2 83 (80-105) 03/25/19 05:40 POC ABG HCO3 17.7 (22-26 mml/L) 03/25/19 05:40 POC ABG Total CO2 19 (23-27mmol/L) 03/25/19 05:40 POC ABG O2 Sat 97 03/25/19 05:40 PT/INR, D-dimer PT 21.4 Sec. (12.2-14.9) H 03/27/19 14:04 INR 1.90 (0.87-1.13) H 03/27/19 14:04 Abnormal lab findings: Abnormal Labs 03/19/19 03/19/19 03/19/19 12:59 12:59 12:59 WBC RBC 3.44 L Hgb Hct MCV 101 H MCH 34 H MCHC RDW Plt Count 98 L Lymph % (Auto) [place] % (Auto) Eos % (Auto) Lymph # [place] # Eos # Seg Neutrophils % Seg Neuts % (Manual) 11.0 L Lymphocytes % (Manual) Monocytes % (Manual) 10.0 H Eosinophils % (Manual) Nucleated RBC % 1.0 H Seg Neutrophils # Seg Neutrophils # Man 0.6 L Lymphocytes # (Manual) Monocytes # (Manual) Eosinophils # (Manual) PT INR APTT POC ABG pH POC ABG pCO2 POC ABG pO2 Sodium 149 H Potassium Chloride 109.4 H Carbon Dioxide BUN 51 H Creatinine 3.2 H Glucose 58 L POC Glucose Lactic Acid 7.60 H* Calcium 7.8 L Phosphorus Magnesium 1.60 L Iron TIBC Ferritin Direct Bilirubin AST 75 H Total Creatine Kinase 1499 H Troponin T 0.109 H* Total Protein 5.2 L Albumin 1.7 L Prealbumin LDL Cholesterol Direct 22 L HDL Cholesterol 31 L Vitamin B12 TSH PTH Intact Urine Creatinine Urine Total Protein Vancomycin Trough Digoxin Salicylates Acetaminophen Crossmatch 03/19/19 03/19/19 03/19/19 12:59 12:59 14:48 WBC RBC Hgb Hct MCV MCH MCHC RDW Plt Count Lymph % (Auto) [place] % (Auto) Eos % (Auto) Lymph # [place] # Eos # Seg Neutrophils % Seg Neuts % (Manual) Lymphocytes % (Manual) Monocytes % (Manual) Eosinophils % (Manual) Nucleated RBC % Seg Neutrophils # Seg Neutrophils # Man Lymphocytes # (Manual) Monocytes # (Manual) Eosinophils # (Manual) PT INR APTT POC ABG pH POC ABG pCO2 POC ABG pO2 Sodium Potassium Chloride Carbon Dioxide BUN Creatinine Glucose POC Glucose 44 L Lactic Acid Calcium Phosphorus Magnesium Iron TIBC Ferritin Direct Bilirubin AST Total Creatine Kinase Troponin T Total Protein Albumin Prealbumin LDL Cholesterol Direct HDL Cholesterol Vitamin B12 TSH PTH Intact Urine Creatinine Urine Total Protein Vancomycin Trough Digoxin Salicylates < 0.3 L Acetaminophen < 5.0 L Crossmatch 03/19/19 03/19/19 03/19/19 15:33 15:52 16:26 WBC RBC Hgb Hct MCV MCH MCHC RDW Plt Count Lymph % (Auto) [place] % (Auto) Eos % (Auto) Lymph # [place] # Eos # Seg Neutrophils % Seg Neuts % (Manual) Lymphocytes % (Manual) Monocytes % (Manual) Eosinophils % (Manual) Nucleated RBC % Seg Neutrophils # Seg Neutrophils # Man Lymphocytes # (Manual) Monocytes # (Manual) Eosinophils # (Manual) PT INR APTT POC ABG pH POC ABG pCO2 POC ABG pO2 Sodium Potassium Chloride Carbon Dioxide BUN Creatinine Glucose POC Glucose 228 H 231 H Lactic Acid Calcium Phosphorus Magnesium Iron TIBC Ferritin Direct Bilirubin AST Total Creatine Kinase Troponin T Total Protein Albumin Prealbumin LDL Cholesterol Direct HDL Cholesterol Vitamin B12 TSH PTH Intact Urine Creatinine 31.8 H Urine Total Protein Vancomycin Trough Digoxin Salicylates Acetaminophen Crossmatch 03/19/19 03/19/19 03/19/19 16:38 17:14 18:43 WBC RBC Hgb Hct MCV MCH MCHC RDW Plt Count Lymph % (Auto) [place] % (Auto) Eos % (Auto) Lymph # [place] # Eos # Seg Neutrophils % Seg Neuts % (Manual) Lymphocytes % (Manual) Monocytes % (Manual) Eosinophils % (Manual) Nucleated RBC % Seg Neutrophils # Seg Neutrophils # Man Lymphocytes # (Manual) Monocytes # (Manual) Eosinophils # (Manual) PT INR APTT POC ABG pH 7.196 L POC ABG pCO2 30.8 L POC ABG pO2 Sodium Potassium Chloride Carbon Dioxide BUN Creatinine Glucose POC Glucose 235 H Lactic Acid 8.10 H* Calcium Phosphorus Magnesium Iron TIBC Ferritin Direct Bilirubin AST Total Creatine Kinase Troponin T Total Protein Albumin Prealbumin LDL Cholesterol Direct HDL Cholesterol Vitamin B12 TSH PTH Intact Urine Creatinine Urine Total Protein Vancomycin Trough Digoxin Salicylates Acetaminophen Crossmatch 03/19/19 03/19/19 03/19/19 18:52 20:00 20:56 WBC RBC Hgb Hct MCV MCH MCHC RDW Plt Count Lymph % (Auto) [place] % (Auto) Eos % (Auto) Lymph # [place] # Eos # Seg Neutrophils % Seg Neuts % (Manual) Lymphocytes % (Manual) Monocytes % (Manual) Eosinophils % (Manual) Nucleated RBC % Seg Neutrophils # Seg Neutrophils # Man Lymphocytes # (Manual) Monocytes # (Manual) Eosinophils # (Manual) PT INR APTT POC ABG pH POC ABG pCO2 POC ABG pO2 Sodium Potassium Chloride Carbon Dioxide BUN Creatinine Glucose POC Glucose 240 H 117 H Lactic Acid 5.90 H* Calcium Phosphorus Magnesium Iron TIBC Ferritin Direct Bilirubin AST Total Creatine Kinase Troponin T Total Protein Albumin Prealbumin LDL Cholesterol Direct HDL Cholesterol Vitamin B12 TSH PTH Intact Urine Creatinine Urine Total Protein Vancomycin Trough Digoxin Salicylates Acetaminophen Crossmatch 03/19/19 03/19/19 03/19/19 21:19 22:07 23:00 WBC RBC Hgb Hct MCV MCH MCHC RDW Plt Count Lymph % (Auto) [place] % (Auto) Eos % (Auto) Lymph # [place] # Eos # Seg Neutrophils % Seg Neuts % (Manual) Lymphocytes % (Manual) Monocytes % (Manual) Eosinophils % (Manual) Nucleated RBC % Seg Neutrophils # Seg Neutrophils # Man Lymphocytes # (Manual) Monocytes # (Manual) Eosinophils # (Manual) PT INR APTT POC ABG pH POC ABG pCO2 POC ABG pO2 Sodium Potassium Chloride Carbon Dioxide BUN Creatinine Glucose POC Glucose < 40 L 136 H Lactic Acid 6.10 H* Calcium Phosphorus Magnesium Iron TIBC Ferritin Direct Bilirubin AST Total Creatine Kinase Troponin T Total Protein Albumin Prealbumin LDL Cholesterol Direct HDL Cholesterol Vitamin B12 TSH PTH Intact Urine Creatinine Urine Total Protein Vancomycin Trough Digoxin Salicylates Acetaminophen Crossmatch 03/20/19 03/20/19 03/20/19 00:05 01:38 02:23 WBC RBC Hgb Hct MCV MCH MCHC RDW Plt Count Lymph % (Auto) [place] % (Auto) Eos % (Auto) Lymph # [place] # Eos # Seg Neutrophils % Seg Neuts % (Manual) Lymphocytes % (Manual) Monocytes % (Manual) Eosinophils % (Manual) Nucleated RBC % Seg Neutrophils # Seg Neutrophils # Man Lymphocytes # (Manual) Monocytes # (Manual) Eosinophils # (Manual) PT INR APTT POC ABG pH POC ABG pCO2 POC ABG pO2 Sodium Potassium Chloride Carbon Dioxide BUN Creatinine Glucose POC Glucose 68 L 153 H 127 H Lactic Acid Calcium Phosphorus Magnesium Iron TIBC Ferritin Direct Bilirubin AST Total Creatine Kinase Troponin T Total Protein Albumin Prealbumin LDL Cholesterol Direct HDL Cholesterol Vitamin B12 TSH PTH Intact Urine Creatinine Urine Total Protein Vancomycin Trough Digoxin Salicylates Acetaminophen Crossmatch 03/20/19 03/20/19 03/20/19 03:12 04:31 04:41 WBC RBC Hgb Hct MCV MCH MCHC RDW Plt Count Lymph % (Auto) [place] % (Auto) Eos % (Auto) Lymph # [place] # Eos # Seg Neutrophils % Seg Neuts % (Manual) Lymphocytes % (Manual) Monocytes % (Manual) Eosinophils % (Manual) Nucleated RBC % Seg Neutrophils # Seg Neutrophils # Man Lymphocytes # (Manual) Monocytes # (Manual) Eosinophils # (Manual) PT INR APTT POC ABG pH POC ABG pCO2 POC ABG pO2 53 L 65 L Sodium Potassium Chloride Carbon Dioxide BUN Creatinine Glucose POC Glucose 109 H Lactic Acid Calcium Phosphorus Magnesium Iron TIBC Ferritin Direct Bilirubin AST Total Creatine Kinase Troponin T Total Protein Albumin Prealbumin LDL Cholesterol Direct HDL Cholesterol Vitamin B12 TSH PTH Intact Urine Creatinine Urine Total Protein Vancomycin Trough Digoxin Salicylates Acetaminophen Crossmatch 03/20/19 03/20/19 03/20/19 05:50 07:29 08:14 WBC RBC Hgb Hct MCV MCH MCHC RDW Plt Count Lymph % (Auto) [place] % (Auto) Eos % (Auto) Lymph # [place] # Eos # Seg Neutrophils % Seg Neuts % (Manual) Lymphocytes % (Manual) Monocytes % (Manual) Eosinophils % (Manual) Nucleated RBC % Seg Neutrophils # Seg Neutrophils # Man Lymphocytes # (Manual) Monocytes # (Manual) Eosinophils # (Manual) PT INR APTT POC ABG pH POC ABG pCO2 POC ABG pO2 Sodium Potassium Chloride Carbon Dioxide BUN Creatinine Glucose 61 L POC Glucose 47 L 153 H Lactic Acid Calcium Phosphorus Magnesium 1.60 L Iron TIBC Ferritin Direct Bilirubin AST Total Creatine Kinase Troponin T Total Protein Albumin Prealbumin LDL Cholesterol Direct HDL Cholesterol Vitamin B12 TSH PTH Intact Urine Creatinine Urine Total Protein Vancomycin Trough Digoxin Salicylates Acetaminophen Crossmatch 03/20/19 03/20/19 03/20/19 08:23 08:23 10:59 WBC RBC Hgb Hct MCV MCH MCHC RDW Plt Count Lymph % (Auto) [place] % (Auto) Eos % (Auto) Lymph # [place] # Eos # Seg Neutrophils % Seg Neuts % (Manual) Lymphocytes % (Manual) Monocytes % (Manual) Eosinophils % (Manual) Nucleated RBC % Seg Neutrophils # Seg Neutrophils # Man Lymphocytes # (Manual) Monocytes # (Manual) Eosinophils # (Manual) PT INR APTT POC ABG pH POC ABG pCO2 POC ABG pO2 Sodium Potassium Chloride Carbon Dioxide BUN Creatinine Glucose 101 H POC Glucose 233 H Lactic Acid 9.70 H* Calcium Phosphorus Magnesium Iron TIBC Ferritin Direct Bilirubin AST Total Creatine Kinase Troponin T Total Protein Albumin Prealbumin 0.052 L LDL Cholesterol Direct HDL Cholesterol Vitamin B12 TSH PTH Intact Urine Creatinine Urine Total Protein Vancomycin Trough Digoxin Salicylates Acetaminophen Crossmatch 03/20/19 03/20/19 03/20/19 12:23 16:10 16:40 WBC RBC Hgb Hct MCV MCH MCHC RDW Plt Count Lymph % (Auto) [place] % (Auto) Eos % (Auto) Lymph # [place] # Eos # Seg Neutrophils % Seg Neuts % (Manual) Lymphocytes % (Manual) Monocytes % (Manual) Eosinophils % (Manual) Nucleated RBC % Seg Neutrophils # Seg Neutrophils # Man Lymphocytes # (Manual) Monocytes # (Manual) Eosinophils # (Manual) PT INR APTT POC ABG pH POC ABG pCO2 POC ABG pO2 Sodium Potassium Chloride Carbon Dioxide BUN Creatinine Glucose POC Glucose 135 H 171 H Lactic Acid Calcium Phosphorus Magnesium Iron TIBC Ferritin Direct Bilirubin AST Total Creatine Kinase Troponin T Total Protein Albumin Prealbumin LDL Cholesterol Direct HDL Cholesterol Vitamin B12 TSH PTH Intact Urine Creatinine 53.7 H Urine Total Protein 36 H Vancomycin Trough Digoxin Salicylates Acetaminophen Crossmatch 03/20/19 03/20/19 03/20/19 16:57 17:38 17:50 WBC RBC Hgb Hct MCV MCH MCHC RDW Plt Count Lymph % (Auto) [place] % (Auto) Eos % (Auto) Lymph # [place] # Eos # Seg Neutrophils % Seg Neuts % (Manual) Lymphocytes % (Manual) Monocytes % (Manual) Eosinophils % (Manual) Nucleated RBC % Seg Neutrophils # Seg Neutrophils # Man Lymphocytes # (Manual) Monocytes # (Manual) Eosinophils # (Manual) PT INR APTT POC ABG pH POC ABG pCO2 POC ABG pO2 Sodium Potassium Chloride Carbon Dioxide BUN Creatinine Glucose POC Glucose 152 H 147 H Lactic Acid 9.90 H* Calcium Phosphorus Magnesium Iron TIBC Ferritin Direct Bilirubin AST Total Creatine Kinase Troponin T Total Protein Albumin Prealbumin LDL Cholesterol Direct HDL Cholesterol Vitamin B12 TSH PTH Intact Urine Creatinine Urine Total Protein Vancomycin Trough Digoxin Salicylates Acetaminophen Crossmatch 03/20/19 03/20/19 03/20/19 17:50 17:50 17:50 WBC RBC 2.92 L Hgb 10.0 L Hct 29.3 L MCV 100 H MCH 34 H MCHC RDW Plt Count 81 L Lymph % (Auto) [place] % (Auto) Eos % (Auto) Lymph # [place] # Eos # Seg Neutrophils % Seg Neuts % (Manual) Lymphocytes % (Manual) Monocytes % (Manual) Eosinophils % (Manual) Nucleated RBC % Seg Neutrophils # Seg Neutrophils # Man Lymphocytes # (Manual) Monocytes # (Manual) Eosinophils # (Manual) PT INR APTT POC ABG pH POC ABG pCO2 POC ABG pO2 Sodium Potassium 2.8 L* D Chloride Carbon Dioxide BUN 30 H Creatinine 1.6 H Glucose 107 H POC Glucose Lactic Acid Calcium 6.9 L Phosphorus 2.00 L Magnesium Iron TIBC Ferritin Direct Bilirubin AST Total Creatine Kinase Troponin T Total Protein Albumin Prealbumin LDL Cholesterol Direct HDL Cholesterol Vitamin B12 TSH PTH Intact 171.6 H Urine Creatinine Urine Total Protein Vancomycin Trough Digoxin Salicylates Acetaminophen Crossmatch 03/20/19 03/21/19 03/21/19 21:12 00:30 04:12 WBC RBC Hgb Hct MCV MCH MCHC RDW Plt Count Lymph % (Auto) [place] % (Auto) Eos % (Auto) Lymph # [place] # Eos # Seg Neutrophils % Seg Neuts % (Manual) Lymphocytes % (Manual) Monocytes % (Manual) Eosinophils % (Manual) Nucleated RBC % Seg Neutrophils # Seg Neutrophils # Man Lymphocytes # (Manual) Monocytes # (Manual) Eosinophils # (Manual) PT INR APTT POC ABG pH POC ABG pCO2 POC ABG pO2 Sodium Potassium 3.0 L Chloride Carbon Dioxide 21 L BUN Creatinine 1.4 H Glucose 103 H POC Glucose Lactic Acid 8.70 H* 9.40 H* Calcium 6.8 L Phosphorus Magnesium Iron TIBC Ferritin Direct Bilirubin AST Total Creatine Kinase Troponin T Total Protein Albumin Prealbumin LDL Cholesterol Direct HDL Cholesterol Vitamin B12 TSH PTH Intact Urine Creatinine Urine Total Protein Vancomycin Trough Digoxin Salicylates Acetaminophen Crossmatch 03/21/19 03/21/19 03/21/19 04:12 04:12 04:43 WBC RBC 2.84 L Hgb 9.5 L Hct 28.3 L MCV 100 H MCH 33 H MCHC RDW Plt Count 79 L Lymph % (Auto) [place] % (Auto) Eos % (Auto) Lymph # [place] # Eos # Seg Neutrophils % Seg Neuts % (Manual) Lymphocytes % (Manual) Monocytes % (Manual) Eosinophils % (Manual) Nucleated RBC % Seg Neutrophils # Seg Neutrophils # Man Lymphocytes # (Manual) Monocytes # (Manual) Eosinophils # (Manual) PT INR APTT POC ABG pH 7.456 H POC ABG pCO2 POC ABG pO2 Sodium Potassium Chloride Carbon Dioxide BUN Creatinine Glucose POC Glucose Lactic Acid 9.50 H* Calcium Phosphorus Magnesium Iron TIBC Ferritin Direct Bilirubin AST Total Creatine Kinase Troponin T Total Protein Albumin Prealbumin LDL Cholesterol Direct HDL Cholesterol Vitamin B12 TSH PTH Intact Urine Creatinine Urine Total Protein Vancomycin Trough Digoxin Salicylates Acetaminophen Crossmatch 03/21/19 03/21/19 03/21/19 08:06 08:08 10:11 WBC RBC Hgb Hct MCV MCH MCHC RDW Plt Count Lymph % (Auto) [place] % (Auto) Eos % (Auto) Lymph # [place] # Eos # Seg Neutrophils % Seg Neuts % (Manual) Lymphocytes % (Manual) Monocytes % (Manual) Eosinophils % (Manual) Nucleated RBC % Seg Neutrophils # Seg Neutrophils # Man Lymphocytes # (Manual) Monocytes # (Manual) Eosinophils # (Manual) PT INR APTT POC ABG pH POC ABG pCO2 POC ABG pO2 Sodium Potassium 3.5 L Chloride Carbon Dioxide BUN 22 H Creatinine 1.3 H Glucose POC Glucose 64 L Lactic Acid 8.00 H* Calcium 7.0 L Phosphorus Magnesium Iron TIBC Ferritin Direct Bilirubin AST Total Creatine Kinase Troponin T Total Protein Albumin Prealbumin LDL Cholesterol Direct HDL Cholesterol Vitamin B12 TSH PTH Intact Urine Creatinine Urine Total Protein Vancomycin Trough Digoxin Salicylates Acetaminophen Crossmatch 03/21/19 03/21/19 03/21/19 11:17 12:17 13:37 WBC RBC Hgb Hct MCV MCH MCHC RDW Plt Count Lymph % (Auto) [place] % (Auto) Eos % (Auto) Lymph # [place] # Eos # Seg Neutrophils % Seg Neuts % (Manual) Lymphocytes % (Manual) Monocytes % (Manual) Eosinophils % (Manual) Nucleated RBC % Seg Neutrophils # Seg Neutrophils # Man Lymphocytes # (Manual) Monocytes # (Manual) Eosinophils # (Manual) PT INR APTT POC ABG pH POC ABG pCO2 POC ABG pO2 Sodium Potassium Chloride Carbon Dioxide BUN Creatinine Glucose POC Glucose 173 H 110 H Lactic Acid Calcium Phosphorus Magnesium Iron TIBC Ferritin Direct Bilirubin AST Total Creatine Kinase Troponin T 0.033 H D Total Protein Albumin Prealbumin LDL Cholesterol Direct HDL Cholesterol Vitamin B12 TSH PTH Intact Urine Creatinine Urine Total Protein Vancomycin Trough Digoxin Salicylates Acetaminophen Crossmatch 03/21/19 03/21/19 03/21/19 13:37 17:21 18:52 WBC RBC Hgb Hct MCV MCH MCHC RDW Plt Count Lymph % (Auto) [place] % (Auto) Eos % (Auto) Lymph # [place] # Eos # Seg Neutrophils % Seg Neuts % (Manual) Lymphocytes % (Manual) Monocytes % (Manual) Eosinophils % (Manual) Nucleated RBC % Seg Neutrophils # Seg Neutrophils # Man Lymphocytes # (Manual) Monocytes # (Manual) Eosinophils # (Manual) PT INR APTT POC ABG pH POC ABG pCO2 POC ABG pO2 Sodium Potassium Chloride Carbon Dioxide BUN Creatinine Glucose POC Glucose 130 H 107 H Lactic Acid 6.80 H* Calcium Phosphorus Magnesium Iron TIBC Ferritin Direct Bilirubin AST Total Creatine Kinase Troponin T Total Protein Albumin Prealbumin LDL Cholesterol Direct HDL Cholesterol Vitamin B12 TSH PTH Intact Urine Creatinine Urine Total Protein Vancomycin Trough Digoxin Salicylates Acetaminophen Crossmatch 03/21/19 03/21/19 03/21/19 20:20 22:08 23:05 WBC RBC Hgb Hct MCV MCH MCHC RDW Plt Count Lymph % (Auto) [place] % (Auto) Eos % (Auto) Lymph # [place] # Eos # Seg Neutrophils % Seg Neuts % (Manual) Lymphocytes % (Manual) Monocytes % (Manual) Eosinophils % (Manual) Nucleated RBC % Seg Neutrophils # Seg Neutrophils # Man Lymphocytes # (Manual) Monocytes # (Manual) Eosinophils # (Manual) PT INR APTT POC ABG pH POC ABG pCO2 POC ABG pO2 Sodium Potassium Chloride Carbon Dioxide BUN Creatinine Glucose POC Glucose 106 H 106 H Lactic Acid Calcium Phosphorus Magnesium Iron TIBC Ferritin Direct Bilirubin AST Total Creatine Kinase Troponin T 0.036 H Total Protein Albumin Prealbumin LDL Cholesterol Direct HDL Cholesterol Vitamin B12 TSH PTH Intact Urine Creatinine Urine Total Protein Vancomycin Trough Digoxin Salicylates Acetaminophen Crossmatch 03/21/19 03/21/19 03/22/19 23:05 23:05 00:14 WBC RBC Hgb Hct MCV MCH MCHC RDW Plt Count Lymph % (Auto) [place] % (Auto) Eos % (Auto) Lymph # [place] # Eos # Seg Neutrophils % Seg Neuts % (Manual) Lymphocytes % (Manual) Monocytes % (Manual) Eosinophils % (Manual) Nucleated RBC % Seg Neutrophils # Seg Neutrophils # Man Lymphocytes # (Manual) Monocytes # (Manual) Eosinophils # (Manual) PT INR APTT POC ABG pH POC ABG pCO2 POC ABG pO2 Sodium Potassium Chloride Carbon Dioxide BUN Creatinine Glucose POC Glucose 122 H 109 H Lactic Acid 7.00 H* Calcium Phosphorus Magnesium Iron TIBC Ferritin Direct Bilirubin AST Total Creatine Kinase Troponin T Total Protein Albumin Prealbumin LDL Cholesterol Direct HDL Cholesterol Vitamin B12 TSH PTH Intact Urine Creatinine Urine Total Protein Vancomycin Trough Digoxin Salicylates Acetaminophen Crossmatch 03/22/19 03/22/19 03/22/19 03:10 04:02 05:11 WBC RBC Hgb Hct MCV MCH MCHC RDW Plt Count Lymph % (Auto) [place] % (Auto) Eos % (Auto) Lymph # [place] # Eos # Seg Neutrophils % Seg Neuts % (Manual) Lymphocytes % (Manual) Monocytes % (Manual) Eosinophils % (Manual) Nucleated RBC % Seg Neutrophils # Seg Neutrophils # Man Lymphocytes # (Manual) Monocytes # (Manual) Eosinophils # (Manual) PT INR APTT POC ABG pH 7.487 H POC ABG pCO2 POC ABG pO2 67 L Sodium Potassium Chloride Carbon Dioxide BUN Creatinine Glucose POC Glucose 114 H 112 H Lactic Acid Calcium Phosphorus Magnesium Iron TIBC Ferritin Direct Bilirubin AST Total Creatine Kinase Troponin T Total Protein Albumin Prealbumin LDL Cholesterol Direct HDL Cholesterol Vitamin B12 TSH PTH Intact Urine Creatinine Urine Total Protein Vancomycin Trough Digoxin Salicylates Acetaminophen Crossmatch 03/22/19 03/22/19 03/22/19 06:06 06:10 06:10 WBC RBC Hgb Hct MCV MCH MCHC RDW Plt Count Lymph % (Auto) [place] % (Auto) Eos % (Auto) Lymph # [place] # Eos # Seg Neutrophils % Seg Neuts % (Manual) Lymphocytes % (Manual) Monocytes % (Manual) Eosinophils % (Manual) Nucleated RBC % Seg Neutrophils # Seg Neutrophils # Man Lymphocytes # (Manual) Monocytes # (Manual) Eosinophils # (Manual) PT INR APTT POC ABG pH POC ABG pCO2 POC ABG pO2 Sodium Potassium 3.0 L Chloride Carbon Dioxide BUN Creatinine Glucose POC Glucose 115 H Lactic Acid Calcium 7.0 L Phosphorus Magnesium Iron TIBC Ferritin Direct Bilirubin AST Total Creatine Kinase Troponin T 0.036 H Total Protein Albumin Prealbumin LDL Cholesterol Direct HDL Cholesterol Vitamin B12 TSH PTH Intact Urine Creatinine Urine Total Protein Vancomycin Trough Digoxin Salicylates Acetaminophen Crossmatch 03/22/19 03/22/19 03/22/19 06:10 06:10 11:59 WBC RBC Hgb Hct MCV MCH MCHC RDW Plt Count Lymph % (Auto) [place] % (Auto) Eos % (Auto) Lymph # [place] # Eos # Seg Neutrophils % Seg Neuts % (Manual) Lymphocytes % (Manual) Monocytes % (Manual) Eosinophils % (Manual) Nucleated RBC % Seg Neutrophils # Seg Neutrophils # Man Lymphocytes # (Manual) Monocytes # (Manual) Eosinophils # (Manual) PT INR APTT POC ABG pH POC ABG pCO2 POC ABG pO2 Sodium Potassium Chloride Carbon Dioxide BUN Creatinine Glucose POC Glucose Lactic Acid 4.80 H* 3.80 H* Calcium Phosphorus Magnesium Iron TIBC Ferritin Direct Bilirubin AST Total Creatine Kinase Troponin T Total Protein Albumin Prealbumin LDL Cholesterol Direct HDL Cholesterol Vitamin B12 TSH 7.810 H PTH Intact Urine Creatinine Urine Total Protein Vancomycin Trough Digoxin Salicylates Acetaminophen Crossmatch 03/22/19 03/22/19 03/22/19 13:45 13:45 13:45 WBC RBC Hgb 8.3 L Hct 24.5 L MCV MCH MCHC RDW Plt Count 56 L Lymph % (Auto) [place] % (Auto) Eos % (Auto) Lymph # [place] # Eos # Seg Neutrophils % Seg Neuts % (Manual) Lymphocytes % (Manual) Monocytes % (Manual) Eosinophils % (Manual) Nucleated RBC % Seg Neutrophils # Seg Neutrophils # Man Lymphocytes # (Manual) Monocytes # (Manual) Eosinophils # (Manual) PT 21.4 H INR 1.90 H APTT 43.2 H POC ABG pH POC ABG pCO2 POC ABG pO2 Sodium Potassium Chloride Carbon Dioxide BUN Creatinine Glucose POC Glucose Lactic Acid 3.50 H* Calcium Phosphorus Magnesium Iron TIBC Ferritin Direct Bilirubin AST Total Creatine Kinase Troponin T Total Protein Albumin Prealbumin LDL Cholesterol Direct HDL Cholesterol Vitamin B12 TSH PTH Intact Urine Creatinine Urine Total Protein Vancomycin Trough Digoxin Salicylates Acetaminophen Crossmatch 03/22/19 03/23/19 03/23/19 22:20 01:06 04:50 WBC 12.1 H RBC 2.36 L Hgb 7.7 L Hct 22.9 L MCV MCH 33 H MCHC RDW Plt Count 37 L Lymph % (Auto) [place] % (Auto) Eos % (Auto) Lymph # [place] # Eos # Seg Neutrophils % Seg Neuts % (Manual) 83.0 H Lymphocytes % (Manual) 8.0 L Monocytes % (Manual) Eosinophils % (Manual) Nucleated RBC % Seg Neutrophils # Seg Neutrophils # Man 10.0 H Lymphocytes # (Manual) 1.0 L Monocytes # (Manual) Eosinophils # (Manual) PT INR APTT POC ABG pH POC ABG pCO2 POC ABG pO2 Sodium Potassium Chloride Carbon Dioxide BUN Creatinine Glucose POC Glucose Lactic Acid 3.60 H* 2.70 H* Calcium Phosphorus Magnesium Iron TIBC Ferritin Direct Bilirubin AST Total Creatine Kinase Troponin T Total Protein Albumin Prealbumin LDL Cholesterol Direct HDL Cholesterol Vitamin B12 TSH PTH Intact Urine Creatinine Urine Total Protein Vancomycin Trough Digoxin Salicylates Acetaminophen Crossmatch 03/23/19 03/23/19 03/23/19 04:50 05:25 05:53 WBC RBC Hgb Hct MCV MCH MCHC RDW Plt Count Lymph % (Auto) [place] % (Auto) Eos % (Auto) Lymph # [place] # Eos # Seg Neutrophils % Seg Neuts % (Manual) Lymphocytes % (Manual) Monocytes % (Manual) Eosinophils % (Manual) Nucleated RBC % Seg Neutrophils # Seg Neutrophils # Man Lymphocytes # (Manual) Monocytes # (Manual) Eosinophils # (Manual) PT INR APTT POC ABG pH POC ABG pCO2 33.3 L POC ABG pO2 Sodium Potassium 3.5 L Chloride 108.3 H Carbon Dioxide BUN Creatinine Glucose POC Glucose 68 L Lactic Acid Calcium 7.3 L Phosphorus Magnesium Iron TIBC Ferritin Direct Bilirubin AST Total Creatine Kinase Troponin T Total Protein Albumin Prealbumin LDL Cholesterol Direct HDL Cholesterol Vitamin B12 TSH PTH Intact Urine Creatinine Urine Total Protein Vancomycin Trough Digoxin Salicylates Acetaminophen Crossmatch 03/24/19 03/24/19 03/24/19 03:26 05:50 05:57 WBC RBC Hgb Hct MCV MCH MCHC RDW Plt Count Lymph % (Auto) [place] % (Auto) Eos % (Auto) Lymph # [place] # Eos # Seg Neutrophils % Seg Neuts % (Manual) Lymphocytes % (Manual) Monocytes % (Manual) Eosinophils % (Manual) Nucleated RBC % Seg Neutrophils # Seg Neutrophils # Man Lymphocytes # (Manual) Monocytes # (Manual) Eosinophils # (Manual) PT INR APTT POC ABG pH POC ABG pCO2 POC ABG pO2 78 L Sodium Potassium 3.4 L Chloride 116.5 H Carbon Dioxide 21 L BUN Creatinine 0.5 L Glucose 105 H POC Glucose 127 H Lactic Acid Calcium 6.4 L Phosphorus Magnesium Iron TIBC Ferritin Direct Bilirubin AST Total Creatine Kinase Troponin T Total Protein Albumin Prealbumin LDL Cholesterol Direct HDL Cholesterol Vitamin B12 TSH PTH Intact Urine Creatinine Urine Total Protein Vancomycin Trough Digoxin Salicylates Acetaminophen Crossmatch 03/24/19 03/24/19 03/24/19 06:00 11:30 12:25 WBC 13.6 H RBC 2.08 L Hgb 6.9 L Hct 20.5 L MCV 99 H MCH 33 H MCHC RDW Plt Count 50 L Lymph % (Auto) 8.1 L [place] % (Auto) 10.0 H Eos % (Auto) Lymph # 1.1 L [place] # 1.4 H Eos # Seg Neutrophils % 80.7 H Seg Neuts % (Manual) Lymphocytes % (Manual) Monocytes % (Manual) Eosinophils % (Manual) Nucleated RBC % Seg Neutrophils # 11.0 H Seg Neutrophils # Man Lymphocytes # (Manual) Monocytes # (Manual) Eosinophils # (Manual) PT INR APTT POC ABG pH POC ABG pCO2 POC ABG pO2 Sodium Potassium Chloride Carbon Dioxide BUN Creatinine Glucose POC Glucose 111 H Lactic Acid Calcium Phosphorus Magnesium Iron TIBC Ferritin Direct Bilirubin AST Total Creatine Kinase Troponin T Total Protein Albumin Prealbumin LDL Cholesterol Direct HDL Cholesterol Vitamin B12 TSH PTH Intact Urine Creatinine Urine Total Protein Vancomycin Trough Digoxin Salicylates Acetaminophen Crossmatch See Detail 03/24/19 03/25/19 03/25/19 14:25 05:20 10:00 WBC 13.4 H RBC 2.54 L Hgb 8.1 L Hct 24.3 L MCV MCH MCHC RDW 17.3 H Plt Count 44 L Lymph % (Auto) [place] % (Auto) Eos % (Auto) Lymph # [place] # Eos # Seg Neutrophils % Seg Neuts % (Manual) Lymphocytes % (Manual) Monocytes % (Manual) Eosinophils % (Manual) Nucleated RBC % Seg Neutrophils # Seg Neutrophils # Man Lymphocytes # (Manual) Monocytes # (Manual) Eosinophils # (Manual) PT INR APTT POC ABG pH POC ABG pCO2 POC ABG pO2 Sodium Potassium Chloride Carbon Dioxide BUN Creatinine Glucose POC Glucose 111 H Lactic Acid Calcium Phosphorus Magnesium Iron 32 L TIBC 75 L Ferritin Direct Bilirubin AST Total Creatine Kinase Troponin T Total Protein Albumin Prealbumin LDL Cholesterol Direct HDL Cholesterol Vitamin B12 TSH PTH Intact Urine Creatinine Urine Total Protein Vancomycin Trough Digoxin Salicylates Acetaminophen Crossmatch 03/25/19 03/25/19 03/25/19 10:11 10:11 23:11 WBC RBC Hgb Hct MCV MCH MCHC RDW Plt Count Lymph % (Auto) [place] % (Auto) Eos % (Auto) Lymph # [place] # Eos # Seg Neutrophils % Seg Neuts % (Manual) Lymphocytes % (Manual) Monocytes % (Manual) Eosinophils % (Manual) Nucleated RBC % Seg Neutrophils # Seg Neutrophils # Man Lymphocytes # (Manual) Monocytes # (Manual) Eosinophils # (Manual) PT INR APTT POC ABG pH POC ABG pCO2 POC ABG pO2 Sodium Potassium Chloride 112.0 H Carbon Dioxide BUN 20 H Creatinine 0.6 L Glucose POC Glucose 112 H Lactic Acid Calcium 7.2 L Phosphorus Magnesium Iron TIBC Ferritin Direct Bilirubin AST Total Creatine Kinase Troponin T Total Protein Albumin Prealbumin LDL Cholesterol Direct HDL Cholesterol Vitamin B12 > 2000 H TSH PTH Intact Urine Creatinine Urine Total Protein Vancomycin Trough Digoxin Salicylates Acetaminophen Crossmatch 03/26/19 03/26/19 03/26/19 05:00 05:00 05:16 WBC 14.4 H RBC 2.74 L Hgb 8.9 L Hct 25.7 L MCV MCH 33 H MCHC 35 H RDW 16.9 H Plt Count 60 L Lymph % (Auto) [place] % (Auto) Eos % (Auto) Lymph # [place] # Eos # Seg Neutrophils % Seg Neuts % (Manual) 83.0 H Lymphocytes % (Manual) 5.0 L Monocytes % (Manual) Eosinophils % (Manual) 5.0 H Nucleated RBC % 1.0 H Seg Neutrophils # Seg Neutrophils # Man 12.0 H Lymphocytes # (Manual) 0.7 L Monocytes # (Manual) 0.9 H Eosinophils # (Manual) 0.7 H PT INR APTT POC ABG pH POC ABG pCO2 POC ABG pO2 Sodium Potassium 3.1 L Chloride 110.4 H Carbon Dioxide BUN 22 H Creatinine Glucose 101 H POC Glucose 114 H Lactic Acid Calcium 7.4 L Phosphorus Magnesium Iron TIBC Ferritin Direct Bilirubin AST Total Creatine Kinase Troponin T Total Protein Albumin Prealbumin LDL Cholesterol Direct HDL Cholesterol Vitamin B12 TSH PTH Intact Urine Creatinine Urine Total Protein Vancomycin Trough Digoxin Salicylates Acetaminophen Crossmatch 03/26/19 03/27/19 03/27/19 11:55 09:04 09:04 WBC RBC Hgb Hct MCV MCH MCHC RDW Plt Count Lymph % (Auto) [place] % (Auto) Eos % (Auto) Lymph # [place] # Eos # Seg Neutrophils % Seg Neuts % (Manual) Lymphocytes % (Manual) Monocytes % (Manual) Eosinophils % (Manual) Nucleated RBC % Seg Neutrophils # Seg Neutrophils # Man Lymphocytes # (Manual) Monocytes # (Manual) Eosinophils # (Manual) PT INR APTT POC ABG pH POC ABG pCO2 POC ABG pO2 Sodium Potassium 3.2 L Chloride Carbon Dioxide BUN 22 H Creatinine Glucose POC Glucose 121 H Lactic Acid Calcium 7.7 L Phosphorus Magnesium Iron TIBC Ferritin Direct Bilirubin AST Total Creatine Kinase Troponin T Total Protein Albumin Prealbumin LDL Cholesterol Direct HDL Cholesterol Vitamin B12 TSH PTH Intact Urine Creatinine Urine Total Protein Vancomycin Trough 23.0 H Digoxin Salicylates Acetaminophen Crossmatch 03/27/19 03/27/19 03/27/19 09:04 13:31 14:04 WBC 14.8 H RBC 2.52 L Hgb 8.0 L 8.3 L Hct 24.0 L 25.3 L MCV MCH MCHC RDW 17.0 H Plt Count 89 L 91 L Lymph % (Auto) [place] % (Auto) 8.8 H Eos % (Auto) Lymph # [place] # 1.3 H Eos # Seg Neutrophils % 70.7 H Seg Neuts % (Manual) Lymphocytes % (Manual) Monocytes % (Manual) Eosinophils % (Manual) Nucleated RBC % Seg Neutrophils # 10.5 H Seg Neutrophils # Man Lymphocytes # (Manual) Monocytes # (Manual) Eosinophils # (Manual) PT INR APTT POC ABG pH POC ABG pCO2 POC ABG pO2 Sodium Potassium Chloride Carbon Dioxide BUN Creatinine Glucose POC Glucose Lactic Acid Calcium Phosphorus Magnesium Iron TIBC Ferritin Direct Bilirubin 0.3 H AST Total Creatine Kinase Troponin T Total Protein 4.9 L Albumin 1.3 L Prealbumin LDL Cholesterol Direct HDL Cholesterol Vitamin B12 TSH PTH Intact Urine Creatinine Urine Total Protein Vancomycin Trough Digoxin Salicylates Acetaminophen Crossmatch 03/27/19 03/27/19 03/28/19 14:04 23:51 01:05 WBC 14.4 H RBC 2.44 L Hgb 8.0 L Hct 24.5 L MCV 100 H MCH 33 H MCHC RDW 18.5 H Plt Count 86 L Lymph % (Auto) [place] % (Auto) Eos % (Auto) Lymph # [place] # Eos # Seg Neutrophils % Seg Neuts % (Manual) 84.0 H Lymphocytes % (Manual) 10.0 L Monocytes % (Manual) Eosinophils % (Manual) Nucleated RBC % Seg Neutrophils # Seg Neutrophils # Man 12.1 H Lymphocytes # (Manual) Monocytes # (Manual) Eosinophils # (Manual) PT 21.4 H INR 1.90 H APTT 42.2 H POC ABG pH POC ABG pCO2 POC ABG pO2 Sodium Potassium Chloride Carbon Dioxide BUN Creatinine Glucose POC Glucose 130 H Lactic Acid Calcium Phosphorus Magnesium Iron TIBC Ferritin Direct Bilirubin AST Total Creatine Kinase Troponin T Total Protein Albumin Prealbumin LDL Cholesterol Direct HDL Cholesterol Vitamin B12 TSH PTH Intact Urine Creatinine Urine Total Protein Vancomycin Trough Digoxin Salicylates Acetaminophen Crossmatch 03/28/19 03/28/19 03/28/19 02:51 04:45 07:31 WBC RBC Hgb Hct MCV MCH MCHC RDW Plt Count Lymph % (Auto) [place] % (Auto) Eos % (Auto) Lymph # [place] # Eos # Seg Neutrophils % Seg Neuts % (Manual) Lymphocytes % (Manual) Monocytes % (Manual) Eosinophils % (Manual) Nucleated RBC % Seg Neutrophils # Seg Neutrophils # Man Lymphocytes # (Manual) Monocytes # (Manual) Eosinophils # (Manual) PT INR APTT 75.0 H* POC ABG pH POC ABG pCO2 POC ABG pO2 Sodium Potassium Chloride Carbon Dioxide BUN 22 H Creatinine Glucose POC Glucose Lactic Acid Calcium 7.8 L Phosphorus Magnesium Iron TIBC Ferritin 448.3 H Direct Bilirubin AST Total Creatine Kinase Troponin T Total Protein Albumin Prealbumin LDL Cholesterol Direct HDL Cholesterol Vitamin B12 TSH PTH Intact Urine Creatinine Urine Total Protein Vancomycin Trough Digoxin Salicylates Acetaminophen Crossmatch 03/28/19 03/29/19 03/29/19 14:30 04:40 04:40 WBC RBC 2.17 L Hgb 7.1 L Hct 20.8 L MCV MCH 33 H MCHC RDW 17.1 H Plt Count 122 L Lymph % (Auto) [place] % (Auto) Eos % (Auto) Lymph # [place] # Eos # Seg Neutrophils % Seg Neuts % (Manual) Lymphocytes % (Manual) Monocytes % (Manual) Eosinophils % (Manual) Nucleated RBC % Seg Neutrophils # Seg Neutrophils # Man Lymphocytes # (Manual) Monocytes # (Manual) Eosinophils # (Manual) PT INR APTT 70.3 H* POC ABG pH POC ABG pCO2 POC ABG pO2 Sodium Potassium Chloride Carbon Dioxide 31 H BUN 22 H Creatinine 0.5 L Glucose POC Glucose Lactic Acid Calcium 8.0 L Phosphorus Magnesium Iron TIBC Ferritin Direct Bilirubin AST Total Creatine Kinase Troponin T Total Protein 5.0 L Albumin 1.4 L Prealbumin LDL Cholesterol Direct HDL Cholesterol Vitamin B12 TSH PTH Intact Urine Creatinine Urine Total Protein Vancomycin Trough Digoxin Salicylates Acetaminophen Crossmatch 03/29/19 03/29/19 03/29/19 04:40 04:40 11:50 WBC RBC Hgb Hct MCV MCH MCHC RDW Plt Count Lymph % (Auto) [place] % (Auto) Eos % (Auto) Lymph # [place] # Eos # Seg Neutrophils % Seg Neuts % (Manual) Lymphocytes % (Manual) Monocytes % (Manual) Eosinophils % (Manual) Nucleated RBC % Seg Neutrophils # Seg Neutrophils # Man Lymphocytes # (Manual) Monocytes # (Manual) Eosinophils # (Manual) PT INR APTT 71.8 H* POC ABG pH POC ABG pCO2 POC ABG pO2 Sodium Potassium Chloride Carbon Dioxide BUN Creatinine Glucose POC Glucose 118 H Lactic Acid Calcium Phosphorus Magnesium Iron TIBC Ferritin Direct Bilirubin AST Total Creatine Kinase Troponin T Total Protein Albumin Prealbumin LDL Cholesterol Direct HDL Cholesterol Vitamin B12 TSH PTH Intact Urine Creatinine Urine Total Protein Vancomycin Trough Digoxin 3.5 H* Salicylates Acetaminophen Crossmatch 03/29/19 03/29/19 03/29/19 16:20 16:20 21:10 WBC RBC Hgb Hct MCV MCH MCHC RDW Plt Count Lymph % (Auto) [place] % (Auto) Eos % (Auto) Lymph # [place] # Eos # Seg Neutrophils % Seg Neuts % (Manual) Lymphocytes % (Manual) Monocytes % (Manual) Eosinophils % (Manual) Nucleated RBC % Seg Neutrophils # Seg Neutrophils # Man Lymphocytes # (Manual) Monocytes # (Manual) Eosinophils # (Manual) PT INR APTT 61.5 H* 112.6 H* POC ABG pH POC ABG pCO2 POC ABG pO2 Sodium Potassium Chloride Carbon Dioxide BUN Creatinine Glucose POC Glucose Lactic Acid Calcium Phosphorus Magnesium Iron TIBC Ferritin Direct Bilirubin AST Total Creatine Kinase Troponin T Total Protein Albumin Prealbumin LDL Cholesterol Direct HDL Cholesterol Vitamin B12 TSH PTH Intact Urine Creatinine Urine Total Protein Vancomycin Trough Digoxin 2.6 H* Salicylates Acetaminophen Crossmatch 03/29/19 03/30/19 03/30/19 22:30 04:42 04:42 WBC RBC Hgb 6.4 L Hct 18.9 L* MCV MCH MCHC RDW Plt Count Lymph % (Auto) [place] % (Auto) Eos % (Auto) Lymph # [place] # Eos # Seg Neutrophils % Seg Neuts % (Manual) Lymphocytes % (Manual) Monocytes % (Manual) Eosinophils % (Manual) Nucleated RBC % Seg Neutrophils # Seg Neutrophils # Man Lymphocytes # (Manual) Monocytes # (Manual) Eosinophils # (Manual) PT INR APTT 103.8 H* POC ABG pH POC ABG pCO2 POC ABG pO2 Sodium Potassium Chloride Carbon Dioxide BUN Creatinine Glucose POC Glucose Lactic Acid Calcium Phosphorus Magnesium Iron TIBC Ferritin Direct Bilirubin AST Total Creatine Kinase Troponin T Total Protein Albumin Prealbumin LDL Cholesterol Direct HDL Cholesterol Vitamin B12 TSH PTH Intact Urine Creatinine Urine Total Protein Vancomycin Trough Digoxin 2.6 H* Salicylates Acetaminophen Crossmatch 03/30/19 03/30/19 03/30/19 07:04 07:58 11:15 WBC RBC 2.66 L Hgb 8.5 L Hct 25.3 L D MCV MCH MCHC RDW 17.4 H Plt Count Lymph % (Auto) [place] % (Auto) Eos % (Auto) Lymph # [place] # Eos # Seg Neutrophils % Seg Neuts % (Manual) Lymphocytes % (Manual) Monocytes % (Manual) Eosinophils % (Manual) Nucleated RBC % Seg Neutrophils # Seg Neutrophils # Man Lymphocytes # (Manual) Monocytes # (Manual) Eosinophils # (Manual) PT INR APTT 50.5 H POC ABG pH POC ABG pCO2 POC ABG pO2 Sodium Potassium Chloride Carbon Dioxide BUN Creatinine Glucose POC Glucose Lactic Acid Calcium Phosphorus Magnesium Iron TIBC Ferritin Direct Bilirubin AST Total Creatine Kinase Troponin T Total Protein Albumin Prealbumin LDL Cholesterol Direct HDL Cholesterol Vitamin B12 TSH PTH Intact Urine Creatinine Urine Total Protein Vancomycin Trough Digoxin Salicylates Acetaminophen Crossmatch See Detail 03/30/19 03/30/19 03/30/19 11:36 17:40 22:51 WBC RBC 2.48 L Hgb 7.9 L Hct 23.9 L MCV MCH MCHC RDW 17.7 H Plt Count Lymph % (Auto) [place] % (Auto) Eos % (Auto) Lymph # [place] # Eos # Seg Neutrophils % Seg Neuts % (Manual) Lymphocytes % (Manual) Monocytes % (Manual) Eosinophils % (Manual) Nucleated RBC % Seg Neutrophils # Seg Neutrophils # Man Lymphocytes # (Manual) Monocytes # (Manual) Eosinophils # (Manual) PT INR APTT POC ABG pH POC ABG pCO2 POC ABG pO2 Sodium Potassium Chloride Carbon Dioxide BUN Creatinine Glucose POC Glucose 129 H 112 H Lactic Acid Calcium Phosphorus Magnesium Iron TIBC Ferritin Direct Bilirubin AST Total Creatine Kinase Troponin T Total Protein Albumin Prealbumin LDL Cholesterol Direct HDL Cholesterol Vitamin B12 TSH PTH Intact Urine Creatinine Urine Total Protein Vancomycin Trough Digoxin Salicylates Acetaminophen Crossmatch 03/30/19 03/31/19 03/31/19 23:47 05:00 11:35 WBC RBC Hgb 8.0 L Hct 23.7 L MCV MCH MCHC RDW Plt Count Lymph % (Auto) [place] % (Auto) Eos % (Auto) Lymph # [place] # Eos # Seg Neutrophils % Seg Neuts % (Manual) Lymphocytes % (Manual) Monocytes % (Manual) Eosinophils % (Manual) Nucleated RBC % Seg Neutrophils # Seg Neutrophils # Man Lymphocytes # (Manual) Monocytes # (Manual) Eosinophils # (Manual) PT INR APTT POC ABG pH POC ABG pCO2 POC ABG pO2 Sodium Potassium Chloride Carbon Dioxide BUN Creatinine Glucose POC Glucose 112 H 106 H Lactic Acid Calcium Phosphorus Magnesium Iron TIBC Ferritin Direct Bilirubin AST Total Creatine Kinase Troponin T Total Protein Albumin Prealbumin LDL Cholesterol Direct HDL Cholesterol Vitamin B12 TSH PTH Intact Urine Creatinine Urine Total Protein Vancomycin Trough Digoxin Salicylates Acetaminophen Crossmatch 04/01/19 04/02/19 04/03/19 11:38 08:33 06:15 WBC RBC 2.11 L Hgb 7.8 L 6.8 L Hct 23.1 L 20.5 L MCV 98 H MCH MCHC RDW 17.6 H Plt Count Lymph % (Auto) [place] % (Auto) 12.1 H Eos % (Auto) 7.4 H Lymph # [place] # Eos # Seg Neutrophils % Seg Neuts % (Manual) Lymphocytes % (Manual) Monocytes % (Manual) Eosinophils % (Manual) Nucleated RBC % Seg Neutrophils # Seg Neutrophils # Man Lymphocytes # (Manual) Monocytes # (Manual) Eosinophils # (Manual) PT INR APTT POC ABG pH POC ABG pCO2 POC ABG pO2 Sodium Potassium Chloride Carbon Dioxide BUN Creatinine Glucose POC Glucose 136 H Lactic Acid Calcium Phosphorus Magnesium Iron TIBC Ferritin Direct Bilirubin AST Total Creatine Kinase Troponin T Total Protein Albumin Prealbumin LDL Cholesterol Direct HDL Cholesterol Vitamin B12 TSH PTH Intact Urine Creatinine Urine Total Protein Vancomycin Trough Digoxin Salicylates Acetaminophen Crossmatch 04/03/19 04/04/19 04/04/19 08:22 05:20 05:20 WBC RBC 2.27 L Hgb 7.3 L 7.3 L Hct 21.9 L 22.0 L MCV MCH MCHC RDW 16.8 H Plt Count Lymph % (Auto) [place] % (Auto) 12.2 H Eos % (Auto) 6.6 H Lymph # [place] # 1.0 H Eos # 0.5 H Seg Neutrophils % Seg Neuts % (Manual) Lymphocytes % (Manual) Monocytes % (Manual) Eosinophils % (Manual) Nucleated RBC % Seg Neutrophils # Seg Neutrophils # Man Lymphocytes # (Manual) Monocytes # (Manual) Eosinophils # (Manual) PT INR APTT POC ABG pH POC ABG pCO2 POC ABG pO2 Sodium Potassium Chloride Carbon Dioxide BUN Creatinine 0.4 L Glucose POC Glucose Lactic Acid Calcium 7.9 L Phosphorus 2.20 L Magnesium 1.40 L Iron TIBC Ferritin Direct Bilirubin AST Total Creatine Kinase Troponin T Total Protein Albumin Prealbumin LDL Cholesterol Direct HDL Cholesterol Vitamin B12 TSH PTH Intact Urine Creatinine Urine Total Protein Vancomycin Trough Digoxin Salicylates Acetaminophen Crossmatch 04/05/19 04/05/19 04/05/19 03:30 03:30 06:51 WBC RBC 2.09 L Hgb 6.7 L Hct 20.1 L MCV MCH MCHC RDW 16.6 H Plt Count Lymph % (Auto) [place] % (Auto) 12.6 H Eos % (Auto) 6.2 H Lymph # [place] # 1.0 H Eos # 0.5 H Seg Neutrophils % Seg Neuts % (Manual) Lymphocytes % (Manual) Monocytes % (Manual) Eosinophils % (Manual) Nucleated RBC % Seg Neutrophils # Seg Neutrophils # Man Lymphocytes # (Manual) Monocytes # (Manual) Eosinophils # (Manual) PT INR APTT POC ABG pH POC ABG pCO2 POC ABG pO2 Sodium Potassium Chloride Carbon Dioxide BUN Creatinine 0.4 L Glucose POC Glucose Lactic Acid Calcium 7.6 L Phosphorus Magnesium Iron TIBC Ferritin Direct Bilirubin AST Total Creatine Kinase Troponin T Total Protein Albumin Prealbumin LDL Cholesterol Direct HDL Cholesterol Vitamin B12 TSH PTH Intact Urine Creatinine Urine Total Protein Vancomycin Trough Digoxin Salicylates Acetaminophen Crossmatch See Detail 04/05/19 04/05/19 04/06/19 13:07 23:50 09:36 WBC RBC 2.56 L Hgb 8.4 L Hct 23.5 L MCV MCH 33 H MCHC 36 H RDW 17.9 H Plt Count Lymph % (Auto) [place] % (Auto) Eos % (Auto) Lymph # [place] # Eos # Seg Neutrophils % Seg Neuts % (Manual) Lymphocytes % (Manual) Monocytes % (Manual) Eosinophils % (Manual) Nucleated RBC % Seg Neutrophils # Seg Neutrophils # Man Lymphocytes # (Manual) Monocytes # (Manual) Eosinophils # (Manual) PT INR APTT POC ABG pH POC ABG pCO2 POC ABG pO2 Sodium Potassium Chloride Carbon Dioxide BUN Creatinine Glucose POC Glucose 106 H 109 H Lactic Acid Calcium Phosphorus Magnesium Iron TIBC Ferritin Direct Bilirubin AST Total Creatine Kinase Troponin T Total Protein Albumin Prealbumin LDL Cholesterol Direct HDL Cholesterol Vitamin B12 TSH PTH Intact Urine Creatinine Urine Total Protein Vancomycin Trough Digoxin Salicylates Acetaminophen Crossmatch 04/07/19 04/07/19 04/07/19 06:50 06:50 11:37 WBC RBC Hgb 8.6 L Hct 25.6 L MCV MCH MCHC RDW Plt Count Lymph % (Auto) [place] % (Auto) Eos % (Auto) Lymph # [place] # Eos # Seg Neutrophils % Seg Neuts % (Manual) Lymphocytes % (Manual) Monocytes % (Manual) Eosinophils % (Manual) Nucleated RBC % Seg Neutrophils # Seg Neutrophils # Man Lymphocytes # (Manual) Monocytes # (Manual) Eosinophils # (Manual) PT INR APTT POC ABG pH POC ABG pCO2 POC ABG pO2 Sodium Potassium Chloride Carbon Dioxide BUN Creatinine 0.6 L Glucose POC Glucose 118 H Lactic Acid Calcium 8.1 L Phosphorus Magnesium Iron TIBC Ferritin Direct Bilirubin AST Total Creatine Kinase Troponin T Total Protein Albumin Prealbumin LDL Cholesterol Direct HDL Cholesterol Vitamin B12 TSH PTH Intact Urine Creatinine Urine Total Protein Vancomycin Trough Digoxin Salicylates Acetaminophen Crossmatch 04/07/19 04/08/19 04/09/19 18:29 05:46 09:15 WBC 11.3 H RBC 2.58 L Hgb 7.9 L Hct 24.4 L MCV MCH MCHC RDW 17.3 H Plt Count 455 H Lymph % (Auto) [place] % (Auto) Eos % (Auto) Lymph # [place] # Eos # Seg Neutrophils % Seg Neuts % (Manual) Lymphocytes % (Manual) Monocytes % (Manual) Eosinophils % (Manual) Nucleated RBC % Seg Neutrophils # Seg Neutrophils # Man Lymphocytes # (Manual) Monocytes # (Manual) Eosinophils # (Manual) PT INR APTT POC ABG pH POC ABG pCO2 POC ABG pO2 Sodium Potassium Chloride Carbon Dioxide BUN Creatinine Glucose POC Glucose 108 H 113 H Lactic Acid Calcium Phosphorus Magnesium Iron TIBC Ferritin Direct Bilirubin AST Total Creatine Kinase Troponin T Total Protein Albumin Prealbumin LDL Cholesterol Direct HDL Cholesterol Vitamin B12 TSH PTH Intact Urine Creatinine Urine Total Protein Vancomycin Trough Digoxin Salicylates Acetaminophen Crossmatch
--- NOTE | 2019-04-09 15:08 | Progress Note ---
Assessment and Plan Cultures/ID related labs: 04/05 BCx - negative 04/04 Sputum - Stenotrophomonas maltophila. 03/27 tracheal aspirate - heavy neutrophils, usual resp maday Blood culture 03/19/2019 negative. Urine culture 03/19/2019 negative. 03/23/2019 tracheal aspirate culture: Usual resp maday 04/05/2019 blood culture no growth so far 04/08/2019 blood culture pending Assessment: 73 y/o female with history of dementia, prior CVA, on home hospice admitted on 03/20/2019 brought by EMS due to altered mental status: 1) Sepsis with septic shock: new fever this weekend, etiology ? pneumonia ? vulvar abscess/cellulitis. Repeat UA neg. 2) Bilateral pneumonia: Her radiography is largely unchanged. Her sputum cultures have grown S. maltophila, which is both a common infection in intubated patients as well as a common colonizer of tubes. Repeat CXR vaughn patchy pulmonary opacities. On bactrim. 3) Acute encephalopathy: CT head without contrast shows encephalomalacia in the entire right cerebral hemisphere, volume loss in the left cerebral hemisphere, no acute parenchymal lesion in the brain. 4) Acute respiratory failure: remains intubated, on the vent. Responsive to commands today. 5) HA: improved. 6) Persistent fevers - Improved with cessation of antibiotics.Continue to monitor, occasional recurrences. 7) DVTs - DVT of RIJ at catheter site as well as R common femoral, and a superficial thrombus in R greater saphenous. IVC filter placed Recommendations: continue fluconazole and linezolid D2 of 5 for vulvar cellulitis/candidiasis continue bactrim for Steno f/u repeat blood culture, to have trach next week monitor closely Guarded prognosis, was on home hospice prior to admission. Dr Johns will be rounding tomorrow Claire Lyn MD Infectious Diseases [employer] [facility] ([facility] M [phone] O [phone] Subjective Date of service: 04/09/19 Principal diagnosis: anemia - dvt Interval history: Remains on the vent, sedated but alert, tmax 100.7. No pressors. at bedside. Objective - Exam Narrative Exam: General appearance: sedated but alert and tracking, intubated FiO2 30% p6 Eyes: anicteric sclerae, moist conjunctivae; no lid-lag; PERRLA HENT: Atraumatic; oropharynx +ETT Lungs: CTA CV: RRR Abdomen: Soft, non-tender Extremities: vaughn edema, no cyanosis Skin: vaughn groin edema and rash, right labia edema - better today Psych: no agitated Neuro: sedated no agitated right IJ - Constitutional Vitals: Vital Signs Temp Pulse Resp BP Pulse Ox 99.9 F H 101 H 28 H 156/84 98 04/09/19 12:00 04/09/19 14:00 04/09/19 14:00 04/09/19 14:00 04/09/19 14:00 Temperature -Last 24 Hours Temperature 99.9 F Temperature 99.9 F Temperature 100.7 F Temperature 99.7 F Temperature 100.4 F Temperature 100.7 F Temperature 100.4 F - Labs CBC & Chem 7: 04/09/19 09:15 04/07/19 06:50 Labs: Abnormal lab results 04/09/19 04/09/19 Range/Units 09:15 12:14 WBC 11.3 H (4.5-11.0) K/mm3 RBC 2.58 L (3.65-5.03) M/mm3 Hgb 7.9 L (10.1-14.3) gm/dl Hct 24.4 L (30.3-42.9) % RDW 17.3 H (13.2-15.2) % Plt Count 455 H (140-440) K/mm3 POC Glucose 135 H (70-105)
[2019-04-09] MEDS: TYLENOL FEEDTUBE PRN (15:59)
[2019-04-09] MEDS: DIFLUCAN 200 MG/100 ML BAG IV SCH (16:40)
[2019-04-09] MEDS ORDERED: FERRLECIT 125 MG in NACL 0.9% 100 ML IV ONE (21:00)
[2019-04-09] MEDS: DILAUDID IV PRN (22:00)
[2019-04-10] MEDS: HumaLOG SUB-Q SCH ×4 (00:23→19:16)
[2019-04-10] MEDS: DUONEB *Not for PRN Use IH SCH ×4 (02:08→20:05)
[2019-04-10] MEDS: DILAUDID IV PRN ×3 (02:41→21:36)
[2019-04-10 05:41] LABS: Basophils # (Auto) 0.1 K/mm3 (0.0-0.1); Basophils % (Auto) 0.4 % (0.0-1.8); Eosinophils # (Auto) 0.3 K/mm3 (0.0-0.4); Eosinophils % (Auto) 2.1 % (0.0-4.3); Hemoglobin 7.6 gm/dl (10.1-14.3); Lymphocytes # (Auto) 1.6 K/mm3 (1.2-5.4); Lymphocytes % (Auto) 12.8 % (13.4-35.0); Mean Corpuscular HGB Conc 33 % (30-34); Mean Corpuscular Volume 94 fl (79-97); Monocytes # (Auto) 1.5 K/mm3 (0.0-0.8); Monocytes % (Auto) 12.1 % (0.0-7.3); Platelet Count 446 K/mm3 (140-440); Red Blood Count 2.46 M/mm3 (3.65-5.03); Red Cell Distribution Width 17.3 % (13.2-15.2)
[2019-04-10] MEDS: ZYVOX 600MG/300ML 600 MG/300 ML BAG IV SCH ×2 (05:47→17:41)
[2019-04-10] MEDS: SODIUM CHLORIDE FLUSH SYRINGE 10 ML IV SCH ×3 (05:47→21:38)
[2019-04-10 05:58] LABS: BUN/Creatinine Ratio 22; Blood Urea Nitrogen 13 mg/dL (7-17); Calcium 7.6 mg/dL (8.4-10.2); Hemolysis Index 2
--- NOTE | 2019-04-10 07:43 | Hem/Onc Progress Note ---
Assessment and Plan h/o low plt - at admission DVT was on home hospice 1. h/o Thrombocytopenia. This may be secondary to medications. The platelets were even low at admission. The differential includes infection versus a marrow issue. At this time, platelets are adequate, we will follow the trend. Because of clinical suspicion, HIT test has been ordered. Argatroban ordered. Heparin has been stopped. plt have improved 2. h/o Pneumonia. 3. h/o Encephalopathy. 4. Respiratory failure, on vent. 5. h/o Renal impairment. 6. Deep vein thrombosis. Her immobilization may have a role. Central line also may have a role. Acute Right common femoral DVT and right IJ vein thrombosis the patient was on Argatroban. IVC filter may prevent the leg DVT from progression to PE; however, for IJ DVT, we have limited options. The patient was on home hospice as per notes. Atrial fibrillation, she was on medications. History of anemia, deficiency investigations. Leukocytosis, likely reactive. B12 level more than 2000, serum iron 32. anemia - IV iron trial 04/10/2019 anemia - off argatroban - HIT test negative h/o PRBC it appears that the pt is possibly bleeding - based on hb fall - hence anticoag has been held if hb improves - ? oral anticoag an option - eliquis vs xarelto there is a question about trach peg - seen by sx team for same IVC filter present - Patient Problems (1) Thrombocytopenia Current Visit: Yes Status: Acute Subjective Date of service: 04/10/19 Principal diagnosis: DVT - anemia Interval history: on vent - looks at you Objective - Exam Narrative Exam: Pain - none - on vent General appearance intubated Performance status - complete help needed Eyes - no icterus ENT no thrush LNs cervical not palpable Neck - no LNs/mass Respiratory Normal Breath sounds - CTA anteriorly CVS S1 S2 + Extremities normal temperature - flaccid General GI Soft - distended Rectal deferred female - deferred Skin warm Musculoskeletal not able to evaluate Neurologically - on vent - Constitutional Vitals: Last Vital Signs Temp 100.3 F H 04/10/19 04:00 Pulse 103 H 04/10/19 06:00 Resp 21 04/10/19 06:00 BP 136/70 04/10/19 06:00 Pulse Ox 90 04/10/19 06:00 - Labs Lab Results: Laboratory Results - last 24 hr 04/09/19 04/09/19 04/09/19 09:15 12:14 17:56 WBC 11.3 H RBC 2.58 L Hgb 7.9 L Hct 24.4 L MCV 94 MCH 31 MCHC 32 RDW 17.3 H Plt Count 455 H Lymph % (Auto) [place] % (Auto) Eos % (Auto) Baso % (Auto) Lymph # [place] # Eos # Baso # Seg Neutrophils % Seg Neutrophils # Sodium Potassium Chloride Carbon Dioxide Anion Gap BUN Creatinine Estimated GFR BUN/Creatinine Ratio Glucose POC Glucose 135 H 117 H Calcium 04/09/19 04/10/19 04/10/19 23:41 05:10 05:10 WBC 12.5 H RBC 2.46 L Hgb 7.6 L Hct 23.0 L MCV 94 MCH 31 MCHC 33 RDW 17.3 H Plt Count 446 H Lymph % (Auto) 12.8 L [place] % (Auto) 12.1 H Eos % (Auto) 2.1 Baso % (Auto) 0.4 Lymph # 1.6 [place] # 1.5 H Eos # 0.3 Baso # 0.1 Seg Neutrophils % 72.6 H Seg Neutrophils # 9.0 H Sodium 136 L Potassium 3.6 Chloride 100.1 Carbon Dioxide 24 Anion Gap 16 BUN 13 Creatinine 0.6 L Estimated GFR > 60 BUN/Creatinine Ratio 22 Glucose 96 POC Glucose 128 H Calcium 7.6 L 04/10/19 05:29 WBC RBC Hgb Hct MCV MCH MCHC RDW Plt Count Lymph % (Auto) [place] % (Auto) Eos % (Auto) Baso % (Auto) Lymph # [place] # Eos # Baso # Seg Neutrophils % Seg Neutrophils # Sodium Potassium Chloride Carbon Dioxide Anion Gap BUN Creatinine Estimated GFR BUN/Creatinine Ratio Glucose POC Glucose 125 H Calcium Medications & Allergies - Medications Allergies/Adverse Reactions: Allergies No Known Allergies Allergy (Unverified 03/19/19 13:11) Home Medications: Home Medications Medication Instructions Recorded Confirmed Last Taken Type Aspirin EC 81 mg PO DAILY 03/20/19 03/20/19 Unknown History Divalproex Sodium 375 mg PO Q8H PRN 03/20/19 03/20/19 Unknown History Metoprolol [Lopressor TAB] 50 mg PO BID 03/20/19 03/20/19 Unknown History Sennosides/Docusate Sodium [Senna 8.6 mg PO BID PRN 03/20/19 03/20/19 Unknown History Plus Tablet] levETIRAcetam [Keppra TAB] 500 mg PO BID 03/20/19 03/20/19 Unknown History Active Medications: Generic Name Dose Route Start Last Admin Trade Name Freq PRN Reason Stop Dose Admin Acetaminophen 650 mg 03/24/19 23:48 04/09/19 15:59 Tylenol FEEDTUBE 650 mg Q6H PRN Administration Pain, Mild (1-3) Albuterol 2.5 mg 03/19/19 23:58 Proventil IH Q3HRT PRN Shortness Of Breath Albuterol/Ipratropium 1 ampul 03/20/19 02:00 04/10/19 02:08 Duoneb *Not For Prn Use* IH 1 ampul Q6HRT YUSUF Administration Amiodarone HCl 200 mg 03/22/19 22:00 04/09/19 21:17 Cordarone PO 200 mg BID YUSUF Administration Lipase/Protease/Amylase 1 each 04/07/19 15:50 Pancreaze 10,500 Unit FEEDTUBE PRN PRN For Clogged Feeding Tube Aspirin 81 mg 03/21/19 10:00 04/09/19 10:05 Baby Aspirin PO 81 mg DAILY YUSUF Administration Budesonide 0.5 mg 03/19/19 23:45 04/09/19 19:21 Pulmicort IH 0.5 mg Q12HRT YUSUF Administration Dextrose 50 ml 03/19/19 23:58 03/21/19 16:29 D50w (25gm) Syringe IV 50 ml PRN PRN Administration Hypoglycemia Famotidine 20 mg 03/22/19 10:00 04/09/19 21:17 Pepcid PO 20 mg BID YUSUF Administration Fentanyl 50 mcg 03/19/19 12:45 03/19/19 13:26 Sublimaze IV 50 mcg Q10MIN PRN Administration ANALGESIA Hydromorphone HCl 0.5 mg 03/19/19 23:58 04/10/19 02:41 Dilaudid IV 0.5 mg Q3H PRN Administration Pain , Severe (7-10) Hydrophilic Ointment 1 applic 03/19/19 12:45 Vaseline Lip Therapy TP Q2HR PRN Dry Lips Fentanyl Citrate 2,000 mcg in 100 mls @ 2.835 mls/hr 03/19/19 14:00 03/21/19 11:33 Fentanyl Drip Premix IV 0 mcg/kg/hr TITR YUSUF 0 mls/hr Titration Protocol 1 MCG/KG/HR Norepinephrine 4 mg in 250 mls @ 7.5 mls/hr 03/25/19 11:00 03/30/19 23:45 Levophed Drip 4 Mg/Ns 250 Ml IV 0 mcg/min TITR YUSUF 0 mls/hr Titration Protocol 2 MCG/MIN Fluconazole 200 mg in 100 mls @ 100 mls/hr 04/08/19 17:00 04/09/19 16:40 Diflucan IV 100 mls/hr Q24H YUSUF Administration Protocol Linezolid 600 mg in 300 mls @ 300 mls/hr 04/08/19 18:00 04/10/19 05:47 Zyvox 600mg/300ml IV 300 mls/hr Q12H YUSUF Administration Protocol Insulin Human Lispro 0 unit 03/20/19 00:00 04/10/19 05:47 Humalog SUB-Q Not Given Q6HR [facility] Protocol Metoclopramide HCl 5 mg 03/20/19 00:12 Reglan IV Q6H PRN Nausea And Vomiting Metoprolol Tartrate 2.5 mg 03/23/19 13:17 03/24/19 21:20 Lopressor IV 2.5 mg Q2HR PRN Administration HR >150 Multi-Ingred Cream/Lotion/Oil/Oint 1 applic 03/19/19 12:45 Artificial Tears Ophth Oint OU Q4HR PRN Dry Eye(s) Ondansetron HCl 4 mg 03/19/19 23:58 Zofran IV Q8H PRN Nausea And Vomiting Promethazine HCl 25 mg 03/19/19 23:58 Phenergan ME Q6H PRN N/V IF NPO AND NO IV ACCESS Simple Syrup 15 ml 04/07/19 15:50 Simple Syrup FEEDTUBE PRN PRN Hypoglycemia Simple Syrup 30 ml 04/07/19 15:50 Simple Syrup FEEDTUBE PRN PRN Hypoglycemia Sodium Bicarbonate 325 mg 04/07/19 15:50 Sodium Bicarbonate FEEDTUBE PRN PRN For Clogged Feeding Tube Sodium Chloride 10 ml 03/20/19 10:00 04/10/19 05:47 Sodium Chloride Flush Syringe 10 Ml IV 10 ml BID YUSUF Administration Sodium Chloride 10 ml 03/19/19 23:58 04/07/19 10:45 Sodium Chloride Flush Syringe 10 Ml IV 10 ml PRN PRN Administration LINE FLUSH Trimethoprim/Sulfamethoxazole 1 each 04/07/19 14:00 04/09/19 21:17 Bactrim Ds PO 04/14/19 22:01 1 each Q12HR YUSUF Administration
[2019-04-10] MEDS: PULMICORT IH SCH ×2 (07:57→20:06)
--- NOTE | 2019-04-10 09:08 | Progress Note ---
Assessment and Plan - Patient Problems (1) Acute respiratory failure Current Visit: Yes Status: Acute Qualifiers: Respiratory failure complication: unspecified whether with hypoxia or hypercapnia Qualified Code(s): J96.00 - Acute respiratory failure, unspecified whether with hypoxia or hypercapnia Plan to address problem: Pt stable. No new issues. Confirmed with Dr. Gooden that patient ok for procedures tomorrow. Plan for trach/PEG on Wednesday. Please call with any questions. Time=10min Subjective Date of service: 04/10/19 Patient Reports: Positive: other (no new issues) Objective Vital Signs - 12hr 04/09/19 04/09/19 04/09/19 22:00 22:42 23:00 Temperature Pulse Rate 100 H 94 H 91 H Pulse Rate [ Anterior Bilateral Throughout] Pulse Rate [ From Monitor] Respiratory 16 18 26 H Rate Respiratory Rate [Anterior Bilateral Throughout] Blood Pressure 126/65 130/60 121/60 O2 Sat by Pulse 93 97 93 Oximetry 04/10/19 04/10/19 04/10/19 00:00 00:05 01:00 Temperature 99.1 F Pulse Rate 93 H 93 H 92 H Pulse Rate [ Anterior Bilateral Throughout] Pulse Rate [ 93 H From Monitor] Respiratory 20 18 Rate Respiratory Rate [Anterior Bilateral Throughout] Blood Pressure 129/62 129/62 133/64 O2 Sat by Pulse 92 95 94 Oximetry 04/10/19 04/10/19 04/10/19 02:00 02:08 03:00 Temperature Pulse Rate 94 H 100 H Pulse Rate [ 100 H Anterior Bilateral Throughout] Pulse Rate [ From Monitor] Respiratory 12 19 Rate Respiratory 21 Rate [Anterior Bilateral Throughout] Blood Pressure 133/73 137/65 O2 Sat by Pulse 95 91 Oximetry 04/10/19 04/10/19 04/10/19 04:00 04:25 05:00 Temperature 100.3 F H Pulse Rate 103 H 100 H 99 H Pulse Rate [ Anterior Bilateral Throughout] Pulse Rate [ 100 H From Monitor] Respiratory 20 21 Rate Respiratory Rate [Anterior Bilateral Throughout] Blood Pressure 133/73 113/73 113/74 O2 Sat by Pulse 95 94 95 Oximetry 04/10/19 04/10/19 04/10/19 06:00 07:53 07:57 Temperature Pulse Rate 103 H 111 H Pulse Rate [ 113 H Anterior Bilateral Throughout] Pulse Rate [ From Monitor] Respiratory 21 Rate Respiratory 25 H Rate [Anterior Bilateral Throughout] Blood Pressure 136/70 160/97 O2 Sat by Pulse 90 94 Oximetry - General physical appearance no distress, no pain - ENT other (ETT in place.) - Neck trachea midline, no venous distension, other (blue ink discoloration on skin) - Respiratory normal expansion, normal respiratory effort - Abdomen soft, not distended - Integumentary no rash, no growths, no abnormal pigmentation - Labs 04/10/19 05:10 04/10/19 05:10 Diabetes panel 04/10/19 Range/Units 05:10 Sodium 136 L (137-145) mmol/L Potassium 3.6 (3.6-5.0) mmol/L Chloride 100.1 (98-107) mmol/L Carbon Dioxide 24 (22-30) mmol/L BUN 13 (7-17) mg/dL Creatinine 0.6 L (0.7-1.2) mg/dL Glucose 96 (65-100) mg/dL Calcium 7.6 L (8.4-10.2) mg/dL Calcium panel 04/10/19 Range/Units 05:10 Calcium 7.6 L (8.4-10.2) mg/dL Pituitary panel 04/10/19 Range/Units 05:10 Sodium 136 L (137-145) mmol/L Potassium 3.6 (3.6-5.0) mmol/L Chloride 100.1 (98-107) mmol/L Carbon Dioxide 24 (22-30) mmol/L BUN 13 (7-17) mg/dL Creatinine 0.6 L (0.7-1.2) mg/dL Glucose 96 (65-100) mg/dL Calcium 7.6 L (8.4-10.2) mg/dL Adrenal panel 04/10/19 Range/Units 05:10 Sodium 136 L (137-145) mmol/L Potassium 3.6 (3.6-5.0) mmol/L Chloride 100.1 (98-107) mmol/L Carbon Dioxide 24 (22-30) mmol/L BUN 13 (7-17) mg/dL Creatinine 0.6 L (0.7-1.2) mg/dL Glucose 96 (65-100) mg/dL Calcium 7.6 L (8.4-10.2) mg/dL
--- NOTE | 2019-04-10 10:00 | Progress Note ---
Assessment and Plan Acute metabolic encephalopathy, - cont supportive care, CT head negative - patient now appears at her baseline per the family Acute hypoxic respiratory s/p ETT placement: consulted CCM, difficult to wean off vent, scheduled nebs - surgery consulted for trach and PEG - Plan for trach/PEG on Wednesday Severe Anemia: Drop in H/H - status post total 3 units of PRBC transfusion - Closely monitor and transfuse as needed Digoxin toxicity; supratherapeutic level, off digoxin Acute Right common femoral DVT and right IJ vein thrombosis - argatroban drip dced due to severe anemia[requiring transfusion] - planned for IVC filter by IR, but already have one in place - no AC for now, monitor clinically Sepsis due to aspiration pneumonia; - source pneumonia but having persistent fever. UA negative. Blood culture 03/19/2019 no growth. Urine culture 03/19/2019 negative. - ID following, Has completed full course for pneumonia and abx stopped on 04/04 for aspiration PNA - monitored fever curve - started on abx again by ID on 04/07 for persistent fever with bactrim for 7 days Septic shock: off pressor, weaned off, BP now stable Paroxysmal Atrial fib, Now NSR - on amioderone, metoprolol HA (acute kidney injury), atn and vasomotor nephrology, poa: IV fluids for now, Nephrology consulted - renal function improved Anemia, due to CD vs other cause - ordered stool for occult blood, iron study - transfused one unit PRBC RUL Aspiration pneumonia: treated with abx Hypernatremia: improved with Iv fluid Hypomagnesemia: replete and follow as needed Elevated troponin level/ NSTEMI II; consulted Cardiology, conservative mx DVT prophylaxis DNR code status CCT 34 minutes Brief History Patient is a 73 yo woman without a clear past medical history due to patient presentation of being Altered requiring intubation upon admission. Upon arrival to the emergency room, the patient is obtunded, breathing without difficulty, desaturating, without a gag reflex. Therefore, patient placed on nasal cannula at 15 L/m, and then intubated without difficulty. Patient started empirically on the sepsis pathway, with broad-spectrum antibiotics, aggressive IV fluids, and post intubation sedation package. She is difficult to wean off from vent, s/p bronch. venous doppler showed right internal jugular vein thrombus associated with right internal jugular vein triple lumen catheter and right common femoral vein DVT. Patient was on anticoagulation however had significant anemia requiring blood transfusion as argatroban discontinued. Patient is unable to wean with poor prognosis, family requested DO NOT RESUSCITATE status And initially decided hospice, however they changed their mind and now consi dering trach and PEG and SNF placement. * pCXR FINDINGS: SUPPORT DEVICES: Endotracheal tube is in place in good position above the liam. HEART / MEDIASTINUM: No significant abnormality. LUNGS / PLEURA: There is moderate bibasilar lung consolidation and slight right upper lobe consolidation as well. No edema or effusions. No pneumothorax. ADDITIONAL FINDINGS: No significant additional findings. IMPRESSION: 1. Endotracheal tube in good position. * CT head without contrast IMPRESSION: Encephalomalacia in the entire right cerebral hemisphere Volume loss in the left cerebral hemisphere, n0 acute parenchymal lesion in the brain. Hospitalist Physical Gen: critcally ill, thin frail, intubated, HEENT: NCAT, EOMI, PERRL, OP Clear Neck: supple, no adenopathy, no thyromegaly, no JVD CVS/Heart: RRR, normal S1S2, pulses present bilaterally Chest/Lungs: CTA B, Symmetrical chest expansion, good air entry bilaterally GI/Abdomen: soft, NTND, good bowel sounds, no guarding or rebound /Bladder: no suprapubic tenderness, no CVA or paraspinal tenderness Extermity/Skin: no c/c/e, no obvious rash, + edema MSK: no joint swelling Neuro: intubated Psych: intubated Subjective Date of service: 04/10/19 Principal diagnosis: anemia - dvt Interval history: Pt seen and examined remained intubated, off pressor discussed with family and RN at the bedside surgery consulted for trach and PEG Objective - Constitutional Vitals: Vital Signs - 12hr 04/09/19 04/09/19 04/09/19 22:00 22:42 23:00 Temperature Pulse Rate 100 H 94 H 91 H Pulse Rate [ Anterior Bilateral Throughout] Pulse Rate [ From Monitor] Respiratory 16 18 26 H Rate Respiratory Rate [Anterior Bilateral Throughout] Blood Pressure 126/65 130/60 121/60 O2 Sat by Pulse 93 97 93 Oximetry 04/10/19 04/10/19 04/10/19 00:00 00:05 01:00 Temperature 99.1 F Pulse Rate 93 H 93 H 92 H Pulse Rate [ Anterior Bilateral Throughout] Pulse Rate [ 93 H From Monitor] Respiratory 20 18 Rate Respiratory Rate [Anterior Bilateral Throughout] Blood Pressure 129/62 129/62 133/64 O2 Sat by Pulse 92 95 94 Oximetry 04/10/19 04/10/19 04/10/19 02:00 02:08 03:00 Temperature Pulse Rate 94 H 100 H Pulse Rate [ 100 H Anterior Bilateral Throughout] Pulse Rate [ From Monitor] Respiratory 12 19 Rate Respiratory 21 Rate [Anterior Bilateral Throughout] Blood Pressure 133/73 137/65 O2 Sat by Pulse 95 91 Oximetry 04/10/19 04/10/19 04/10/19 04:00 04:25 05:00 Temperature 100.3 F H Pulse Rate 103 H 100 H 99 H Pulse Rate [ Anterior Bilateral Throughout] Pulse Rate [ 100 H From Monitor] Respiratory 20 21 Rate Respiratory Rate [Anterior Bilateral Throughout] Blood Pressure 133/73 113/73 113/74 O2 Sat by Pulse 95 94 95 Oximetry 04/10/19 04/10/19 04/10/19 06:00 07:00 07:53 Temperature Pulse Rate 103 H 107 H 111 H Pulse Rate [ Anterior Bilateral Throughout] Pulse Rate [ From Monitor] Respiratory 21 24 Rate Respiratory Rate [Anterior Bilateral Throughout] Blood Pressure 136/70 151/70 160/97 O2 Sat by Pulse 90 92 94 Oximetry 04/10/19 04/10/19 04/10/19 07:57 08:00 09:00 Temperature 99.7 F H Pulse Rate 109 H 109 H Pulse Rate [ 113 H Anterior Bilateral Throughout] Pulse Rate [ From Monitor] Respiratory 27 H 27 H Rate Respiratory 25 H Rate [Anterior Bilateral Throughout] Blood Pressure 169/75 171/85 O2 Sat by Pulse 91 99 Oximetry 04/10/19 04/10/19 09:39 09:42 Temperature Pulse Rate 105 H 102 H Pulse Rate [ Anterior Bilateral Throughout] Pulse Rate [ From Monitor] Respiratory 36 H Rate Respiratory Rate [Anterior Bilateral Throughout] Blood Pressure 137/65 137/65 O2 Sat by Pulse 89 100 Oximetry - Labs CBC & Chem 7: 04/10/19 05:10 04/10/19 05:10 Labs: Abnormal lab results 04/09/19 04/09/19 04/09/19 Range/Units 12:14 17:56 23:41 WBC (4.5-11.0) K/mm3 RBC (3.65-5.03) M/mm3 Hgb (10.1-14.3) gm/dl Hct (30.3-42.9) % RDW (13.2-15.2) % Plt Count (140-440) K/mm3 Lymph % (Auto) (13.4-35.0) % [place] % (Auto) (0.0-7.3) % [place] # (0.0-0.8) K/mm3 Seg Neutrophils % (40.0-70.0) % Seg Neutrophils # (1.8-7.7) K/mm3 Sodium (137-145) mmol/L Creatinine (0.7-1.2) mg/dL POC Glucose 135 H 117 H 128 H (70-105) Calcium (8.4-10.2) mg/dL 04/10/19 04/10/19 04/10/19 Range/Units 05:10 05:10 05:29 WBC 12.5 H (4.5-11.0) K/mm3 RBC 2.46 L (3.65-5.03) M/mm3 Hgb 7.6 L (10.1-14.3) gm/dl Hct 23.0 L (30.3-42.9) % RDW 17.3 H (13.2-15.2) % Plt Count 446 H (140-440) K/mm3 Lymph % (Auto) 12.8 L (13.4-35.0) % [place] % (Auto) 12.1 H (0.0-7.3) % [place] # 1.5 H (0.0-0.8) K/mm3 Seg Neutrophils % 72.6 H (40.0-70.0) % Seg Neutrophils # 9.0 H (1.8-7.7) K/mm3 Sodium 136 L (137-145) mmol/L Creatinine 0.6 L (0.7-1.2) mg/dL POC Glucose 125 H (70-105) Calcium 7.6 L (8.4-10.2) mg/dL
[2019-04-10] MEDS: CORDARONE PO SCH ×2 (10:41→21:39)
[2019-04-10] MEDS: PEPCID PO SCH ×2 (10:42→21:39)
[2019-04-10] MEDS: BABY ASPIRIN PO SCH (10:42)
[2019-04-10] MEDS: BACTRIM DS PO SCH ×2 (10:42→21:40)
--- NOTE | 2019-04-10 11:53 | Progress Note ---
Assessment and Plan 73 y/o female found unresponsive now intubated and septic, etiology thought secondary to pneumonia with anemia and thrombocytopenia, and persistent fevers found to have multiple DVT's. 1. Trach and Peg at bedside tomorrow (Wednesday) 2. Attempt daily PSV trials 3. Will likely need LTACH as she continues to fail PSV daily 4. Follow up repeat cultures 5. Abx therapy per ID CCT 31 minutes. Subjective Date of service: 04/10/19 Principal diagnosis: anemia - dvt Interval history: No acute events. Spoke with ID over the phone yesterday. Objective Vital Signs - 12hr 04/10/19 04/10/19 04/10/19 00:00 00:05 01:00 Temperature 99.1 F Pulse Rate 93 H 93 H 92 H Pulse Rate [ Anterior Bilateral Throughout] Pulse Rate [ 93 H From Monitor] Respiratory 20 18 Rate Respiratory Rate [Anterior Bilateral Throughout] Blood Pressure 129/62 129/62 133/64 O2 Sat by Pulse 92 95 94 Oximetry 04/10/19 04/10/19 04/10/19 02:00 02:08 03:00 Temperature Pulse Rate 94 H 100 H Pulse Rate [ 100 H Anterior Bilateral Throughout] Pulse Rate [ From Monitor] Respiratory 12 19 Rate Respiratory 21 Rate [Anterior Bilateral Throughout] Blood Pressure 133/73 137/65 O2 Sat by Pulse 95 91 Oximetry 04/10/19 04/10/19 04/10/19 04:00 04:25 05:00 Temperature 100.3 F H Pulse Rate 103 H 100 H 99 H Pulse Rate [ Anterior Bilateral Throughout] Pulse Rate [ 100 H From Monitor] Respiratory 20 21 Rate Respiratory Rate [Anterior Bilateral Throughout] Blood Pressure 133/73 113/73 113/74 O2 Sat by Pulse 95 94 95 Oximetry 04/10/19 04/10/19 04/10/19 06:00 07:00 07:53 Temperature Pulse Rate 103 H 107 H 111 H Pulse Rate [ Anterior Bilateral Throughout] Pulse Rate [ From Monitor] Respiratory 21 24 Rate Respiratory Rate [Anterior Bilateral Throughout] Blood Pressure 136/70 151/70 160/97 O2 Sat by Pulse 90 92 94 Oximetry 04/10/19 04/10/19 04/10/19 07:57 08:00 09:00 Temperature 99.7 F H Pulse Rate 109 H 109 H Pulse Rate [ 113 H Anterior Bilateral Throughout] Pulse Rate [ 109 H From Monitor] Respiratory 27 H 27 H Rate Respiratory 25 H Rate [Anterior Bilateral Throughout] Blood Pressure 169/75 171/85 O2 Sat by Pulse 91 99 Oximetry 04/10/19 04/10/19 09:39 09:42 Temperature Pulse Rate 105 H 102 H Pulse Rate [ Anterior Bilateral Throughout] Pulse Rate [ From Monitor] Respiratory 36 H Rate Respiratory Rate [Anterior Bilateral Throughout] Blood Pressure 137/65 137/65 O2 Sat by Pulse 89 100 Oximetry Constitutional: other (intubated, critically ill on ventilator, awake) Eyes: non-icteric ENT: other (intubated ) Neck: supple Effort: normal Ascultation: Bilateral: diminished breath sounds (grossly clear ), rales (coarse bilat ), other (coarse BS bilaterally) Percussion: Bilateral: not dull, dull Cardiovascular: other (tachy AF, no mrg) Gastrointestinal: normoactive bowel sounds, soft, non-tender, non-distended Integumentary: normal Extremities: anasarca Neurologic: other (awake, alert, L sided hemiparesis, contractures upper extremities) Psychiatric: mood appropriate, affect normal CBC and BMP: 04/10/19 05:10 04/10/19 05:10 ABG, PT/INR, D-dimer: ABG POC ABG pH 7.411 (7.35-7.45) 03/25/19 05:40 POC ABG pO2 83 (80-105) 03/25/19 05:40 POC ABG HCO3 17.7 (22-26 mml/L) 03/25/19 05:40 POC ABG Total CO2 19 (23-27mmol/L) 03/25/19 05:40 POC ABG O2 Sat 97 03/25/19 05:40 PT/INR, D-dimer PT 21.4 Sec. (12.2-14.9) H 03/27/19 14:04 INR 1.90 (0.87-1.13) H 03/27/19 14:04 Abnormal lab findings: Abnormal Labs 03/19/19 03/19/19 03/19/19 12:59 12:59 12:59 WBC RBC 3.44 L Hgb Hct MCV 101 H MCH 34 H MCHC RDW Plt Count 98 L Lymph % (Auto) Arthur % (Auto) Eos % (Auto) Lymph # Arthur # Eos # Seg Neutrophils % Seg Neuts % (Manual) 11.0 L Lymphocytes % (Manual) Monocytes % (Manual) 10.0 H Eosinophils % (Manual) Nucleated RBC % 1.0 H Seg Neutrophils # Seg Neutrophils # Man 0.6 L Lymphocytes # (Manual) Monocytes # (Manual) Eosinophils # (Manual) PT INR APTT POC ABG pH POC ABG pCO2 POC ABG pO2 Sodium 149 H Potassium Chloride 109.4 H Carbon Dioxide BUN 51 H Creatinine 3.2 H Glucose 58 L POC Glucose Lactic Acid 7.60 H* Calcium 7.8 L Phosphorus Magnesium 1.60 L Iron TIBC Ferritin Direct Bilirubin AST 75 H Total Creatine Kinase 1499 H Troponin T 0.109 H* Total Protein 5.2 L Albumin 1.7 L Prealbumin LDL Cholesterol Direct 22 L HDL Cholesterol 31 L Vitamin B12 TSH PTH Intact Urine Creatinine Urine Total Protein Vancomycin Trough Digoxin Salicylates Acetaminophen Crossmatch 03/19/19 03/19/19 03/19/19 12:59 12:59 14:48 WBC RBC Hgb Hct MCV MCH MCHC RDW Plt Count Lymph % (Auto) Arthur % (Auto) Eos % (Auto) Lymph # Arthur # Eos # Seg Neutrophils % Seg Neuts % (Manual) Lymphocytes % (Manual) Monocytes % (Manual) Eosinophils % (Manual) Nucleated RBC % Seg Neutrophils # Seg Neutrophils # Man Lymphocytes # (Manual) Monocytes # (Manual) Eosinophils # (Manual) PT INR APTT POC ABG pH POC ABG pCO2 POC ABG pO2 Sodium Potassium Chloride Carbon Dioxide BUN Creatinine Glucose POC Glucose 44 L Lactic Acid Calcium Phosphorus Magnesium Iron TIBC Ferritin Direct Bilirubin AST Total Creatine Kinase Troponin T Total Protein Albumin Prealbumin LDL Cholesterol Direct HDL Cholesterol Vitamin B12 TSH PTH Intact Urine Creatinine Urine Total Protein Vancomycin Trough Digoxin Salicylates < 0.3 L Acetaminophen < 5.0 L Crossmatch 03/19/19 03/19/19 03/19/19 15:33 15:52 16:26 WBC RBC Hgb Hct MCV MCH MCHC RDW Plt Count Lymph % (Auto) Arthur % (Auto) Eos % (Auto) Lymph # Arthur # Eos # Seg Neutrophils % Seg Neuts % (Manual) Lymphocytes % (Manual) Monocytes % (Manual) Eosinophils % (Manual) Nucleated RBC % Seg Neutrophils # Seg Neutrophils # Man Lymphocytes # (Manual) Monocytes # (Manual) Eosinophils # (Manual) PT INR APTT POC ABG pH POC ABG pCO2 POC ABG pO2 Sodium Potassium Chloride Carbon Dioxide BUN Creatinine Glucose POC Glucose 228 H 231 H Lactic Acid Calcium Phosphorus Magnesium Iron TIBC Ferritin Direct Bilirubin AST Total Creatine Kinase Troponin T Total Protein Albumin Prealbumin LDL Cholesterol Direct HDL Cholesterol Vitamin B12 TSH PTH Intact Urine Creatinine 31.8 H Urine Total Protein Vancomycin Trough Digoxin Salicylates Acetaminophen Crossmatch 03/19/19 03/19/19 03/19/19 16:38 17:14 18:43 WBC RBC Hgb Hct MCV MCH MCHC RDW Plt Count Lymph % (Auto) Arthur % (Auto) Eos % (Auto) Lymph # Arthur # Eos # Seg Neutrophils % Seg Neuts % (Manual) Lymphocytes % (Manual) Monocytes % (Manual) Eosinophils % (Manual) Nucleated RBC % Seg Neutrophils # Seg Neutrophils # Man Lymphocytes # (Manual) Monocytes # (Manual) Eosinophils # (Manual) PT INR APTT POC ABG pH 7.196 L POC ABG pCO2 30.8 L POC ABG pO2 Sodium Potassium Chloride Carbon Dioxide BUN Creatinine Glucose POC Glucose 235 H Lactic Acid 8.10 H* Calcium Phosphorus Magnesium Iron TIBC Ferritin Direct Bilirubin AST Total Creatine Kinase Troponin T Total Protein Albumin Prealbumin LDL Cholesterol Direct HDL Cholesterol Vitamin B12 TSH PTH Intact Urine Creatinine Urine Total Protein Vancomycin Trough Digoxin Salicylates Acetaminophen Crossmatch 03/19/19 03/19/19 03/19/19 18:52 20:00 20:56 WBC RBC Hgb Hct MCV MCH MCHC RDW Plt Count Lymph % (Auto) Arthur % (Auto) Eos % (Auto) Lymph # Arthur # Eos # Seg Neutrophils % Seg Neuts % (Manual) Lymphocytes % (Manual) Monocytes % (Manual) Eosinophils % (Manual) Nucleated RBC % Seg Neutrophils # Seg Neutrophils # Man Lymphocytes # (Manual) Monocytes # (Manual) Eosinophils # (Manual) PT INR APTT POC ABG pH POC ABG pCO2 POC ABG pO2 Sodium Potassium Chloride Carbon Dioxide BUN Creatinine Glucose POC Glucose 240 H 117 H Lactic Acid 5.90 H* Calcium Phosphorus Magnesium Iron TIBC Ferritin Direct Bilirubin AST Total Creatine Kinase Troponin T Total Protein Albumin Prealbumin LDL Cholesterol Direct HDL Cholesterol Vitamin B12 TSH PTH Intact Urine Creatinine Urine Total Protein Vancomycin Trough Digoxin Salicylates Acetaminophen Crossmatch 03/19/19 03/19/19 03/19/19 21:19 22:07 23:00 WBC RBC Hgb Hct MCV MCH MCHC RDW Plt Count Lymph % (Auto) Arthur % (Auto) Eos % (Auto) Lymph # Arthur # Eos # Seg Neutrophils % Seg Neuts % (Manual) Lymphocytes % (Manual) Monocytes % (Manual) Eosinophils % (Manual) Nucleated RBC % Seg Neutrophils # Seg Neutrophils # Man Lymphocytes # (Manual) Monocytes # (Manual) Eosinophils # (Manual) PT INR APTT POC ABG pH POC ABG pCO2 POC ABG pO2 Sodium Potassium Chloride Carbon Dioxide BUN Creatinine Glucose POC Glucose < 40 L 136 H Lactic Acid 6.10 H* Calcium Phosphorus Magnesium Iron TIBC Ferritin Direct Bilirubin AST Total Creatine Kinase Troponin T Total Protein Albumin Prealbumin LDL Cholesterol Direct HDL Cholesterol Vitamin B12 TSH PTH Intact Urine Creatinine Urine Total Protein Vancomycin Trough Digoxin Salicylates Acetaminophen Crossmatch 03/20/19 03/20/19 03/20/19 00:05 01:38 02:23 WBC RBC Hgb Hct MCV MCH MCHC RDW Plt Count Lymph % (Auto) Arthur % (Auto) Eos % (Auto) Lymph # Arthur # Eos # Seg Neutrophils % Seg Neuts % (Manual) Lymphocytes % (Manual) Monocytes % (Manual) Eosinophils % (Manual) Nucleated RBC % Seg Neutrophils # Seg Neutrophils # Man Lymphocytes # (Manual) Monocytes # (Manual) Eosinophils # (Manual) PT INR APTT POC ABG pH POC ABG pCO2 POC ABG pO2 Sodium Potassium Chloride Carbon Dioxide BUN Creatinine Glucose POC Glucose 68 L 153 H 127 H Lactic Acid Calcium Phosphorus Magnesium Iron TIBC Ferritin Direct Bilirubin AST Total Creatine Kinase Troponin T Total Protein Albumin Prealbumin LDL Cholesterol Direct HDL Cholesterol Vitamin B12 TSH PTH Intact Urine Creatinine Urine Total Protein Vancomycin Trough Digoxin Salicylates Acetaminophen Crossmatch 03/20/19 03/20/19 03/20/19 03:12 04:31 04:41 WBC RBC Hgb Hct MCV MCH MCHC RDW Plt Count Lymph % (Auto) Arthur % (Auto) Eos % (Auto) Lymph # Arthur # Eos # Seg Neutrophils % Seg Neuts % (Manual) Lymphocytes % (Manual) Monocytes % (Manual) Eosinophils % (Manual) Nucleated RBC % Seg Neutrophils # Seg Neutrophils # Man Lymphocytes # (Manual) Monocytes # (Manual) Eosinophils # (Manual) PT INR APTT POC ABG pH POC ABG pCO2 POC ABG pO2 53 L 65 L Sodium Potassium Chloride Carbon Dioxide BUN Creatinine Glucose POC Glucose 109 H Lactic Acid Calcium Phosphorus Magnesium Iron TIBC Ferritin Direct Bilirubin AST Total Creatine Kinase Troponin T Total Protein Albumin Prealbumin LDL Cholesterol Direct HDL Cholesterol Vitamin B12 TSH PTH Intact Urine Creatinine Urine Total Protein Vancomycin Trough Digoxin Salicylates Acetaminophen Crossmatch 03/20/19 03/20/19 03/20/19 05:50 07:29 08:14 WBC RBC Hgb Hct MCV MCH MCHC RDW Plt Count Lymph % (Auto) Arthur % (Auto) Eos % (Auto) Lymph # Arthur # Eos # Seg Neutrophils % Seg Neuts % (Manual) Lymphocytes % (Manual) Monocytes % (Manual) Eosinophils % (Manual) Nucleated RBC % Seg Neutrophils # Seg Neutrophils # Man Lymphocytes # (Manual) Monocytes # (Manual) Eosinophils # (Manual) PT INR APTT POC ABG pH POC ABG pCO2 POC ABG pO2 Sodium Potassium Chloride Carbon Dioxide BUN Creatinine Glucose 61 L POC Glucose 47 L 153 H Lactic Acid Calcium Phosphorus Magnesium 1.60 L Iron TIBC Ferritin Direct Bilirubin AST Total Creatine Kinase Troponin T Total Protein Albumin Prealbumin LDL Cholesterol Direct HDL Cholesterol Vitamin B12 TSH PTH Intact Urine Creatinine Urine Total Protein Vancomycin Trough Digoxin Salicylates Acetaminophen Crossmatch 03/20/19 03/20/19 03/20/19 08:23 08:23 10:59 WBC RBC Hgb Hct MCV MCH MCHC RDW Plt Count Lymph % (Auto) Arthur % (Auto) Eos % (Auto) Lymph # Arthur # Eos # Seg Neutrophils % Seg Neuts % (Manual) Lymphocytes % (Manual) Monocytes % (Manual) Eosinophils % (Manual) Nucleated RBC % Seg Neutrophils # Seg Neutrophils # Man Lymphocytes # (Manual) Monocytes # (Manual) Eosinophils # (Manual) PT INR APTT POC ABG pH POC ABG pCO2 POC ABG pO2 Sodium Potassium Chloride Carbon Dioxide BUN Creatinine Glucose 101 H POC Glucose 233 H Lactic Acid 9.70 H* Calcium Phosphorus Magnesium Iron TIBC Ferritin Direct Bilirubin AST Total Creatine Kinase Troponin T Total Protein Albumin Prealbumin 0.052 L LDL Cholesterol Direct HDL Cholesterol Vitamin B12 TSH PTH Intact Urine Creatinine Urine Total Protein Vancomycin Trough Digoxin Salicylates Acetaminophen Crossmatch 03/20/19 03/20/19 03/20/19 12:23 16:10 16:40 WBC RBC Hgb Hct MCV MCH MCHC RDW Plt Count Lymph % (Auto) Arthur % (Auto) Eos % (Auto) Lymph # Arthur # Eos # Seg Neutrophils % Seg Neuts % (Manual) Lymphocytes % (Manual) Monocytes % (Manual) Eosinophils % (Manual) Nucleated RBC % Seg Neutrophils # Seg Neutrophils # Man Lymphocytes # (Manual) Monocytes # (Manual) Eosinophils # (Manual) PT INR APTT POC ABG pH POC ABG pCO2 POC ABG pO2 Sodium Potassium Chloride Carbon Dioxide BUN Creatinine Glucose POC Glucose 135 H 171 H Lactic Acid Calcium Phosphorus Magnesium Iron TIBC Ferritin Direct Bilirubin AST Total Creatine Kinase Troponin T Total Protein Albumin Prealbumin LDL Cholesterol Direct HDL Cholesterol Vitamin B12 TSH PTH Intact Urine Creatinine 53.7 H Urine Total Protein 36 H Vancomycin Trough Digoxin Salicylates Acetaminophen Crossmatch 03/20/19 03/20/19 03/20/19 16:57 17:38 17:50 WBC RBC Hgb Hct MCV MCH MCHC RDW Plt Count Lymph % (Auto) Arthur % (Auto) Eos % (Auto) Lymph # Arthur # Eos # Seg Neutrophils % Seg Neuts % (Manual) Lymphocytes % (Manual) Monocytes % (Manual) Eosinophils % (Manual) Nucleated RBC % Seg Neutrophils # Seg Neutrophils # Man Lymphocytes # (Manual) Monocytes # (Manual) Eosinophils # (Manual) PT INR APTT POC ABG pH POC ABG pCO2 POC ABG pO2 Sodium Potassium Chloride Carbon Dioxide BUN Creatinine Glucose POC Glucose 152 H 147 H Lactic Acid 9.90 H* Calcium Phosphorus Magnesium Iron TIBC Ferritin Direct Bilirubin AST Total Creatine Kinase Troponin T Total Protein Albumin Prealbumin LDL Cholesterol Direct HDL Cholesterol Vitamin B12 TSH PTH Intact Urine Creatinine Urine Total Protein Vancomycin Trough Digoxin Salicylates Acetaminophen Crossmatch 03/20/19 03/20/19 03/20/19 17:50 17:50 17:50 WBC RBC 2.92 L Hgb 10.0 L Hct 29.3 L MCV 100 H MCH 34 H MCHC RDW Plt Count 81 L Lymph % (Auto) Arthur % (Auto) Eos % (Auto) Lymph # Arthur # Eos # Seg Neutrophils % Seg Neuts % (Manual) Lymphocytes % (Manual) Monocytes % (Manual) Eosinophils % (Manual) Nucleated RBC % Seg Neutrophils # Seg Neutrophils # Man Lymphocytes # (Manual) Monocytes # (Manual) Eosinophils # (Manual) PT INR APTT POC ABG pH POC ABG pCO2 POC ABG pO2 Sodium Potassium 2.8 L* D Chloride Carbon Dioxide BUN 30 H Creatinine 1.6 H Glucose 107 H POC Glucose Lactic Acid Calcium 6.9 L Phosphorus 2.00 L Magnesium Iron TIBC Ferritin Direct Bilirubin AST Total Creatine Kinase Troponin T Total Protein Albumin Prealbumin LDL Cholesterol Direct HDL Cholesterol Vitamin B12 TSH PTH Intact 171.6 H Urine Creatinine Urine Total Protein Vancomycin Trough Digoxin Salicylates Acetaminophen Crossmatch 03/20/19 03/21/19 03/21/19 21:12 00:30 04:12 WBC RBC Hgb Hct MCV MCH MCHC RDW Plt Count Lymph % (Auto) Arthur % (Auto) Eos % (Auto) Lymph # Arthur # Eos # Seg Neutrophils % Seg Neuts % (Manual) Lymphocytes % (Manual) Monocytes % (Manual) Eosinophils % (Manual) Nucleated RBC % Seg Neutrophils # Seg Neutrophils # Man Lymphocytes # (Manual) Monocytes # (Manual) Eosinophils # (Manual) PT INR APTT POC ABG pH POC ABG pCO2 POC ABG pO2 Sodium Potassium 3.0 L Chloride Carbon Dioxide 21 L BUN Creatinine 1.4 H Glucose 103 H POC Glucose Lactic Acid 8.70 H* 9.40 H* Calcium 6.8 L Phosphorus Magnesium Iron TIBC Ferritin Direct Bilirubin AST Total Creatine Kinase Troponin T Total Protein Albumin Prealbumin LDL Cholesterol Direct HDL Cholesterol Vitamin B12 TSH PTH Intact Urine Creatinine Urine Total Protein Vancomycin Trough Digoxin Salicylates Acetaminophen Crossmatch 03/21/19 03/21/19 03/21/19 04:12 04:12 04:43 WBC RBC 2.84 L Hgb 9.5 L Hct 28.3 L MCV 100 H MCH 33 H MCHC RDW Plt Count 79 L Lymph % (Auto) Arthur % (Auto) Eos % (Auto) Lymph # Arthur # Eos # Seg Neutrophils % Seg Neuts % (Manual) Lymphocytes % (Manual) Monocytes % (Manual) Eosinophils % (Manual) Nucleated RBC % Seg Neutrophils # Seg Neutrophils # Man Lymphocytes # (Manual) Monocytes # (Manual) Eosinophils # (Manual) PT INR APTT POC ABG pH 7.456 H POC ABG pCO2 POC ABG pO2 Sodium Potassium Chloride Carbon Dioxide BUN Creatinine Glucose POC Glucose Lactic Acid 9.50 H* Calcium Phosphorus Magnesium Iron TIBC Ferritin Direct Bilirubin AST Total Creatine Kinase Troponin T Total Protein Albumin Prealbumin LDL Cholesterol Direct HDL Cholesterol Vitamin B12 TSH PTH Intact Urine Creatinine Urine Total Protein Vancomycin Trough Digoxin Salicylates Acetaminophen Crossmatch 03/21/19 03/21/19 03/21/19 08:06 08:08 10:11 WBC RBC Hgb Hct MCV MCH MCHC RDW Plt Count Lymph % (Auto) Arthur % (Auto) Eos % (Auto) Lymph # Arthur # Eos # Seg Neutrophils % Seg Neuts % (Manual) Lymphocytes % (Manual) Monocytes % (Manual) Eosinophils % (Manual) Nucleated RBC % Seg Neutrophils # Seg Neutrophils # Man Lymphocytes # (Manual) Monocytes # (Manual) Eosinophils # (Manual) PT INR APTT POC ABG pH POC ABG pCO2 POC ABG pO2 Sodium Potassium 3.5 L Chloride Carbon Dioxide BUN 22 H Creatinine 1.3 H Glucose POC Glucose 64 L Lactic Acid 8.00 H* Calcium 7.0 L Phosphorus Magnesium Iron TIBC Ferritin Direct Bilirubin AST Total Creatine Kinase Troponin T Total Protein Albumin Prealbumin LDL Cholesterol Direct HDL Cholesterol Vitamin B12 TSH PTH Intact Urine Creatinine Urine Total Protein Vancomycin Trough Digoxin Salicylates Acetaminophen Crossmatch 03/21/19 03/21/19 03/21/19 11:17 12:17 13:37 WBC RBC Hgb Hct MCV MCH MCHC RDW Plt Count Lymph % (Auto) Arthur % (Auto) Eos % (Auto) Lymph # Arthur # Eos # Seg Neutrophils % Seg Neuts % (Manual) Lymphocytes % (Manual) Monocytes % (Manual) Eosinophils % (Manual) Nucleated RBC % Seg Neutrophils # Seg Neutrophils # Man Lymphocytes # (Manual) Monocytes # (Manual) Eosinophils # (Manual) PT INR APTT POC ABG pH POC ABG pCO2 POC ABG pO2 Sodium Potassium Chloride Carbon Dioxide BUN Creatinine Glucose POC Glucose 173 H 110 H Lactic Acid Calcium Phosphorus Magnesium Iron TIBC Ferritin Direct Bilirubin AST Total Creatine Kinase Troponin T 0.033 H D Total Protein Albumin Prealbumin LDL Cholesterol Direct HDL Cholesterol Vitamin B12 TSH PTH Intact Urine Creatinine Urine Total Protein Vancomycin Trough Digoxin Salicylates Acetaminophen Crossmatch 03/21/19 03/21/19 03/21/19 13:37 17:21 18:52 WBC RBC Hgb Hct MCV MCH MCHC RDW Plt Count Lymph % (Auto) Arthur % (Auto) Eos % (Auto) Lymph # Arthur # Eos # Seg Neutrophils % Seg Neuts % (Manual) Lymphocytes % (Manual) Monocytes % (Manual) Eosinophils % (Manual) Nucleated RBC % Seg Neutrophils # Seg Neutrophils # Man Lymphocytes # (Manual) Monocytes # (Manual) Eosinophils # (Manual) PT INR APTT POC ABG pH POC ABG pCO2 POC ABG pO2 Sodium Potassium Chloride Carbon Dioxide BUN Creatinine Glucose POC Glucose 130 H 107 H Lactic Acid 6.80 H* Calcium Phosphorus Magnesium Iron TIBC Ferritin Direct Bilirubin AST Total Creatine Kinase Troponin T Total Protein Albumin Prealbumin LDL Cholesterol Direct HDL Cholesterol Vitamin B12 TSH PTH Intact Urine Creatinine Urine Total Protein Vancomycin Trough Digoxin Salicylates Acetaminophen Crossmatch 03/21/19 03/21/19 03/21/19 20:20 22:08 23:05 WBC RBC Hgb Hct MCV MCH MCHC RDW Plt Count Lymph % (Auto) Arthur % (Auto) Eos % (Auto) Lymph # Arthur # Eos # Seg Neutrophils % Seg Neuts % (Manual) Lymphocytes % (Manual) Monocytes % (Manual) Eosinophils % (Manual) Nucleated RBC % Seg Neutrophils # Seg Neutrophils # Man Lymphocytes # (Manual) Monocytes # (Manual) Eosinophils # (Manual) PT INR APTT POC ABG pH POC ABG pCO2 POC ABG pO2 Sodium Potassium Chloride Carbon Dioxide BUN Creatinine Glucose POC Glucose 106 H 106 H Lactic Acid Calcium Phosphorus Magnesium Iron TIBC Ferritin Direct Bilirubin AST Total Creatine Kinase Troponin T 0.036 H Total Protein Albumin Prealbumin LDL Cholesterol Direct HDL Cholesterol Vitamin B12 TSH PTH Intact Urine Creatinine Urine Total Protein Vancomycin Trough Digoxin Salicylates Acetaminophen Crossmatch 03/21/19 03/21/19 03/22/19 23:05 23:05 00:14 WBC RBC Hgb Hct MCV MCH MCHC RDW Plt Count Lymph % (Auto) Arthur % (Auto) Eos % (Auto) Lymph # Arthur # Eos # Seg Neutrophils % Seg Neuts % (Manual) Lymphocytes % (Manual) Monocytes % (Manual) Eosinophils % (Manual) Nucleated RBC % Seg Neutrophils # Seg Neutrophils # Man Lymphocytes # (Manual) Monocytes # (Manual) Eosinophils # (Manual) PT INR APTT POC ABG pH POC ABG pCO2 POC ABG pO2 Sodium Potassium Chloride Carbon Dioxide BUN Creatinine Glucose POC Glucose 122 H 109 H Lactic Acid 7.00 H* Calcium Phosphorus Magnesium Iron TIBC Ferritin Direct Bilirubin AST Total Creatine Kinase Troponin T Total Protein Albumin Prealbumin LDL Cholesterol Direct HDL Cholesterol Vitamin B12 TSH PTH Intact Urine Creatinine Urine Total Protein Vancomycin Trough Digoxin Salicylates Acetaminophen Crossmatch 03/22/19 03/22/19 03/22/19 03:10 04:02 05:11 WBC RBC Hgb Hct MCV MCH MCHC RDW Plt Count Lymph % (Auto) Arthur % (Auto) Eos % (Auto) Lymph # Arthur # Eos # Seg Neutrophils % Seg Neuts % (Manual) Lymphocytes % (Manual) Monocytes % (Manual) Eosinophils % (Manual) Nucleated RBC % Seg Neutrophils # Seg Neutrophils # Man Lymphocytes # (Manual) Monocytes # (Manual) Eosinophils # (Manual) PT INR APTT POC ABG pH 7.487 H POC ABG pCO2 POC ABG pO2 67 L Sodium Potassium Chloride Carbon Dioxide BUN Creatinine Glucose POC Glucose 114 H 112 H Lactic Acid Calcium Phosphorus Magnesium Iron TIBC Ferritin Direct Bilirubin AST Total Creatine Kinase Troponin T Total Protein Albumin Prealbumin LDL Cholesterol Direct HDL Cholesterol Vitamin B12 TSH PTH Intact Urine Creatinine Urine Total Protein Vancomycin Trough Digoxin Salicylates Acetaminophen Crossmatch 03/22/19 03/22/19 03/22/19 06:06 06:10 06:10 WBC RBC Hgb Hct MCV MCH MCHC RDW Plt Count Lymph % (Auto) Arthur % (Auto) Eos % (Auto) Lymph # Arthur # Eos # Seg Neutrophils % Seg Neuts % (Manual) Lymphocytes % (Manual) Monocytes % (Manual) Eosinophils % (Manual) Nucleated RBC % Seg Neutrophils # Seg Neutrophils # Man Lymphocytes # (Manual) Monocytes # (Manual) Eosinophils # (Manual) PT INR APTT POC ABG pH POC ABG pCO2 POC ABG pO2 Sodium Potassium 3.0 L Chloride Carbon Dioxide BUN Creatinine Glucose POC Glucose 115 H Lactic Acid Calcium 7.0 L Phosphorus Magnesium Iron TIBC Ferritin Direct Bilirubin AST Total Creatine Kinase Troponin T 0.036 H Total Protein Albumin Prealbumin LDL Cholesterol Direct HDL Cholesterol Vitamin B12 TSH PTH Intact Urine Creatinine Urine Total Protein Vancomycin Trough Digoxin Salicylates Acetaminophen Crossmatch 03/22/19 03/22/19 03/22/19 06:10 06:10 11:59 WBC RBC Hgb Hct MCV MCH MCHC RDW Plt Count Lymph % (Auto) Arthur % (Auto) Eos % (Auto) Lymph # Arthur # Eos # Seg Neutrophils % Seg Neuts % (Manual) Lymphocytes % (Manual) Monocytes % (Manual) Eosinophils % (Manual) Nucleated RBC % Seg Neutrophils # Seg Neutrophils # Man Lymphocytes # (Manual) Monocytes # (Manual) Eosinophils # (Manual) PT INR APTT POC ABG pH POC ABG pCO2 POC ABG pO2 Sodium Potassium Chloride Carbon Dioxide BUN Creatinine Glucose POC Glucose Lactic Acid 4.80 H* 3.80 H* Calcium Phosphorus Magnesium Iron TIBC Ferritin Direct Bilirubin AST Total Creatine Kinase Troponin T Total Protein Albumin Prealbumin LDL Cholesterol Direct HDL Cholesterol Vitamin B12 TSH 7.810 H PTH Intact Urine Creatinine Urine Total Protein Vancomycin Trough Digoxin Salicylates Acetaminophen Crossmatch 03/22/19 03/22/19 03/22/19 13:45 13:45 13:45 WBC RBC Hgb 8.3 L Hct 24.5 L MCV MCH MCHC RDW Plt Count 56 L Lymph % (Auto) Arthur % (Auto) Eos % (Auto) Lymph # Arthur # Eos # Seg Neutrophils % Seg Neuts % (Manual) Lymphocytes % (Manual) Monocytes % (Manual) Eosinophils % (Manual) Nucleated RBC % Seg Neutrophils # Seg Neutrophils # Man Lymphocytes # (Manual) Monocytes # (Manual) Eosinophils # (Manual) PT 21.4 H INR 1.90 H APTT 43.2 H POC ABG pH POC ABG pCO2 POC ABG pO2 Sodium Potassium Chloride Carbon Dioxide BUN Creatinine Glucose POC Glucose Lactic Acid 3.50 H* Calcium Phosphorus Magnesium Iron TIBC Ferritin Direct Bilirubin AST Total Creatine Kinase Troponin T Total Protein Albumin Prealbumin LDL Cholesterol Direct HDL Cholesterol Vitamin B12 TSH PTH Intact Urine Creatinine Urine Total Protein Vancomycin Trough Digoxin Salicylates Acetaminophen Crossmatch 03/22/19 03/23/19 03/23/19 22:20 01:06 04:50 WBC 12.1 H RBC 2.36 L Hgb 7.7 L Hct 22.9 L MCV MCH 33 H MCHC RDW Plt Count 37 L Lymph % (Auto) Arthur % (Auto) Eos % (Auto) Lymph # Arthur # Eos # Seg Neutrophils % Seg Neuts % (Manual) 83.0 H Lymphocytes % (Manual) 8.0 L Monocytes % (Manual) Eosinophils % (Manual) Nucleated RBC % Seg Neutrophils # Seg Neutrophils # Man 10.0 H Lymphocytes # (Manual) 1.0 L Monocytes # (Manual) Eosinophils # (Manual) PT INR APTT POC ABG pH POC ABG pCO2 POC ABG pO2 Sodium Potassium Chloride Carbon Dioxide BUN Creatinine Glucose POC Glucose Lactic Acid 3.60 H* 2.70 H* Calcium Phosphorus Magnesium Iron TIBC Ferritin Direct Bilirubin AST Total Creatine Kinase Troponin T Total Protein Albumin Prealbumin LDL Cholesterol Direct HDL Cholesterol Vitamin B12 TSH PTH Intact Urine Creatinine Urine Total Protein Vancomycin Trough Digoxin Salicylates Acetaminophen Crossmatch 03/23/19 03/23/19 03/23/19 04:50 05:25 05:53 WBC RBC Hgb Hct MCV MCH MCHC RDW Plt Count Lymph % (Auto) Arthur % (Auto) Eos % (Auto) Lymph # Arthur # Eos # Seg Neutrophils % Seg Neuts % (Manual) Lymphocytes % (Manual) Monocytes % (Manual) Eosinophils % (Manual) Nucleated RBC % Seg Neutrophils # Seg Neutrophils # Man Lymphocytes # (Manual) Monocytes # (Manual) Eosinophils # (Manual) PT INR APTT POC ABG pH POC ABG pCO2 33.3 L POC ABG pO2 Sodium Potassium 3.5 L Chloride 108.3 H Carbon Dioxide BUN Creatinine Glucose POC Glucose 68 L Lactic Acid Calcium 7.3 L Phosphorus Magnesium Iron TIBC Ferritin Direct Bilirubin AST Total Creatine Kinase Troponin T Total Protein Albumin Prealbumin LDL Cholesterol Direct HDL Cholesterol Vitamin B12 TSH PTH Intact Urine Creatinine Urine Total Protein Vancomycin Trough Digoxin Salicylates Acetaminophen Crossmatch 03/24/19 03/24/19 03/24/19 03:26 05:50 05:57 WBC RBC Hgb Hct MCV MCH MCHC RDW Plt Count Lymph % (Auto) Arthur % (Auto) Eos % (Auto) Lymph # Arthur # Eos # Seg Neutrophils % Seg Neuts % (Manual) Lymphocytes % (Manual) Monocytes % (Manual) Eosinophils % (Manual) Nucleated RBC % Seg Neutrophils # Seg Neutrophils # Man Lymphocytes # (Manual) Monocytes # (Manual) Eosinophils # (Manual) PT INR APTT POC ABG pH POC ABG pCO2 POC ABG pO2 78 L Sodium Potassium 3.4 L Chloride 116.5 H Carbon Dioxide 21 L BUN Creatinine 0.5 L Glucose 105 H POC Glucose 127 H Lactic Acid Calcium 6.4 L Phosphorus Magnesium Iron TIBC Ferritin Direct Bilirubin AST Total Creatine Kinase Troponin T Total Protein Albumin Prealbumin LDL Cholesterol Direct HDL Cholesterol Vitamin B12 TSH PTH Intact Urine Creatinine Urine Total Protein Vancomycin Trough Digoxin Salicylates Acetaminophen Crossmatch 03/24/19 03/24/19 03/24/19 06:00 11:30 12:25 WBC 13.6 H RBC 2.08 L Hgb 6.9 L Hct 20.5 L MCV 99 H MCH 33 H MCHC RDW Plt Count 50 L Lymph % (Auto) 8.1 L Arthur % (Auto) 10.0 H Eos % (Auto) Lymph # 1.1 L Arthur # 1.4 H Eos # Seg Neutrophils % 80.7 H Seg Neuts % (Manual) Lymphocytes % (Manual) Monocytes % (Manual) Eosinophils % (Manual) Nucleated RBC % Seg Neutrophils # 11.0 H Seg Neutrophils # Man Lymphocytes # (Manual) Monocytes # (Manual) Eosinophils # (Manual) PT INR APTT POC ABG pH POC ABG pCO2 POC ABG pO2 Sodium Potassium Chloride Carbon Dioxide BUN Creatinine Glucose POC Glucose 111 H Lactic Acid Calcium Phosphorus Magnesium Iron TIBC Ferritin Direct Bilirubin AST Total Creatine Kinase Troponin T Total Protein Albumin Prealbumin LDL Cholesterol Direct HDL Cholesterol Vitamin B12 TSH PTH Intact Urine Creatinine Urine Total Protein Vancomycin Trough Digoxin Salicylates Acetaminophen Crossmatch See Detail 03/24/19 03/25/19 03/25/19 14:25 05:20 10:00 WBC 13.4 H RBC 2.54 L Hgb 8.1 L Hct 24.3 L MCV MCH MCHC RDW 17.3 H Plt Count 44 L Lymph % (Auto) Arthur % (Auto) Eos % (Auto) Lymph # Arthur # Eos # Seg Neutrophils % Seg Neuts % (Manual) Lymphocytes % (Manual) Monocytes % (Manual) Eosinophils % (Manual) Nucleated RBC % Seg Neutrophils # Seg Neutrophils # Man Lymphocytes # (Manual) Monocytes # (Manual) Eosinophils # (Manual) PT INR APTT POC ABG pH POC ABG pCO2 POC ABG pO2 Sodium Potassium Chloride Carbon Dioxide BUN Creatinine Glucose POC Glucose 111 H Lactic Acid Calcium Phosphorus Magnesium Iron 32 L TIBC 75 L Ferritin Direct Bilirubin AST Total Creatine Kinase Troponin T Total Protein Albumin Prealbumin LDL Cholesterol Direct HDL Cholesterol Vitamin B12 TSH PTH Intact Urine Creatinine Urine Total Protein Vancomycin Trough Digoxin Salicylates Acetaminophen Crossmatch 03/25/19 03/25/19 03/25/19 10:11 10:11 23:11 WBC RBC Hgb Hct MCV MCH MCHC RDW Plt Count Lymph % (Auto) Arthur % (Auto) Eos % (Auto) Lymph # Arthur # Eos # Seg Neutrophils % Seg Neuts % (Manual) Lymphocytes % (Manual) Monocytes % (Manual) Eosinophils % (Manual) Nucleated RBC % Seg Neutrophils # Seg Neutrophils # Man Lymphocytes # (Manual) Monocytes # (Manual) Eosinophils # (Manual) PT INR APTT POC ABG pH POC ABG pCO2 POC ABG pO2 Sodium Potassium Chloride 112.0 H Carbon Dioxide BUN 20 H Creatinine 0.6 L Glucose POC Glucose 112 H Lactic Acid Calcium 7.2 L Phosphorus Magnesium Iron TIBC Ferritin Direct Bilirubin AST Total Creatine Kinase Troponin T Total Protein Albumin Prealbumin LDL Cholesterol Direct HDL Cholesterol Vitamin B12 > 2000 H TSH PTH Intact Urine Creatinine Urine Total Protein Vancomycin Trough Digoxin Salicylates Acetaminophen Crossmatch 03/26/19 03/26/19 03/26/19 05:00 05:00 05:16 WBC 14.4 H RBC 2.74 L Hgb 8.9 L Hct 25.7 L MCV MCH 33 H MCHC 35 H RDW 16.9 H Plt Count 60 L Lymph % (Auto) Arthur % (Auto) Eos % (Auto) Lymph # Arthur # Eos # Seg Neutrophils % Seg Neuts % (Manual) 83.0 H Lymphocytes % (Manual) 5.0 L Monocytes % (Manual) Eosinophils % (Manual) 5.0 H Nucleated RBC % 1.0 H Seg Neutrophils # Seg Neutrophils # Man 12.0 H Lymphocytes # (Manual) 0.7 L Monocytes # (Manual) 0.9 H Eosinophils # (Manual) 0.7 H PT INR APTT POC ABG pH POC ABG pCO2 POC ABG pO2 Sodium Potassium 3.1 L Chloride 110.4 H Carbon Dioxide BUN 22 H Creatinine Glucose 101 H POC Glucose 114 H Lactic Acid Calcium 7.4 L Phosphorus Magnesium Iron TIBC Ferritin Direct Bilirubin AST Total Creatine Kinase Troponin T Total Protein Albumin Prealbumin LDL Cholesterol Direct HDL Cholesterol Vitamin B12 TSH PTH Intact Urine Creatinine Urine Total Protein Vancomycin Trough Digoxin Salicylates Acetaminophen Crossmatch 03/26/19 03/27/19 03/27/19 11:55 09:04 09:04 WBC RBC Hgb Hct MCV MCH MCHC RDW Plt Count Lymph % (Auto) Arthur % (Auto) Eos % (Auto) Lymph # Arthur # Eos # Seg Neutrophils % Seg Neuts % (Manual) Lymphocytes % (Manual) Monocytes % (Manual) Eosinophils % (Manual) Nucleated RBC % Seg Neutrophils # Seg Neutrophils # Man Lymphocytes # (Manual) Monocytes # (Manual) Eosinophils # (Manual) PT INR APTT POC ABG pH POC ABG pCO2 POC ABG pO2 Sodium Potassium 3.2 L Chloride Carbon Dioxide BUN 22 H Creatinine Glucose POC Glucose 121 H Lactic Acid Calcium 7.7 L Phosphorus Magnesium Iron TIBC Ferritin Direct Bilirubin AST Total Creatine Kinase Troponin T Total Protein Albumin Prealbumin LDL Cholesterol Direct HDL Cholesterol Vitamin B12 TSH PTH Intact Urine Creatinine Urine Total Protein Vancomycin Trough 23.0 H Digoxin Salicylates Acetaminophen Crossmatch 03/27/19 03/27/19 03/27/19 09:04 13:31 14:04 WBC 14.8 H RBC 2.52 L Hgb 8.0 L 8.3 L Hct 24.0 L 25.3 L MCV MCH MCHC RDW 17.0 H Plt Count 89 L 91 L Lymph % (Auto) Arthur % (Auto) 8.8 H Eos % (Auto) Lymph # Arthur # 1.3 H Eos # Seg Neutrophils % 70.7 H Seg Neuts % (Manual) Lymphocytes % (Manual) Monocytes % (Manual) Eosinophils % (Manual) Nucleated RBC % Seg Neutrophils # 10.5 H Seg Neutrophils # Man Lymphocytes # (Manual) Monocytes # (Manual) Eosinophils # (Manual) PT INR APTT POC ABG pH POC ABG pCO2 POC ABG pO2 Sodium Potassium Chloride Carbon Dioxide BUN Creatinine Glucose POC Glucose Lactic Acid Calcium Phosphorus Magnesium Iron TIBC Ferritin Direct Bilirubin 0.3 H AST Total Creatine Kinase Troponin T Total Protein 4.9 L Albumin 1.3 L Prealbumin LDL Cholesterol Direct HDL Cholesterol Vitamin B12 TSH PTH Intact Urine Creatinine Urine Total Protein Vancomycin Trough Digoxin Salicylates Acetaminophen Crossmatch 03/27/19 03/27/19 03/28/19 14:04 23:51 01:05 WBC 14.4 H RBC 2.44 L Hgb 8.0 L Hct 24.5 L MCV 100 H MCH 33 H MCHC RDW 18.5 H Plt Count 86 L Lymph % (Auto) Arthur % (Auto) Eos % (Auto) Lymph # Arthur # Eos # Seg Neutrophils % Seg Neuts % (Manual) 84.0 H Lymphocytes % (Manual) 10.0 L Monocytes % (Manual) Eosinophils % (Manual) Nucleated RBC % Seg Neutrophils # Seg Neutrophils # Man 12.1 H Lymphocytes # (Manual) Monocytes # (Manual) Eosinophils # (Manual) PT 21.4 H INR 1.90 H APTT 42.2 H POC ABG pH POC ABG pCO2 POC ABG pO2 Sodium Potassium Chloride Carbon Dioxide BUN Creatinine Glucose POC Glucose 130 H Lactic Acid Calcium Phosphorus Magnesium Iron TIBC Ferritin Direct Bilirubin AST Total Creatine Kinase Troponin T Total Protein Albumin Prealbumin LDL Cholesterol Direct HDL Cholesterol Vitamin B12 TSH PTH Intact Urine Creatinine Urine Total Protein Vancomycin Trough Digoxin Salicylates Acetaminophen Crossmatch 03/28/19 03/28/19 03/28/19 02:51 04:45 07:31 WBC RBC Hgb Hct MCV MCH MCHC RDW Plt Count Lymph % (Auto) Arthur % (Auto) Eos % (Auto) Lymph # Arthur # Eos # Seg Neutrophils % Seg Neuts % (Manual) Lymphocytes % (Manual) Monocytes % (Manual) Eosinophils % (Manual) Nucleated RBC % Seg Neutrophils # Seg Neutrophils # Man Lymphocytes # (Manual) Monocytes # (Manual) Eosinophils # (Manual) PT INR APTT 75.0 H* POC ABG pH POC ABG pCO2 POC ABG pO2 Sodium Potassium Chloride Carbon Dioxide BUN 22 H Creatinine Glucose POC Glucose Lactic Acid Calcium 7.8 L Phosphorus Magnesium Iron TIBC Ferritin 448.3 H Direct Bilirubin AST Total Creatine Kinase Troponin T Total Protein Albumin Prealbumin LDL Cholesterol Direct HDL Cholesterol Vitamin B12 TSH PTH Intact Urine Creatinine Urine Total Protein Vancomycin Trough Digoxin Salicylates Acetaminophen Crossmatch 03/28/19 03/29/19 03/29/19 14:30 04:40 04:40 WBC RBC 2.17 L Hgb 7.1 L Hct 20.8 L MCV MCH 33 H MCHC RDW 17.1 H Plt Count 122 L Lymph % (Auto) Arthur % (Auto) Eos % (Auto) Lymph # Arthur # Eos # Seg Neutrophils % Seg Neuts % (Manual) Lymphocytes % (Manual) Monocytes % (Manual) Eosinophils % (Manual) Nucleated RBC % Seg Neutrophils # Seg Neutrophils # Man Lymphocytes # (Manual) Monocytes # (Manual) Eosinophils # (Manual) PT INR APTT 70.3 H* POC ABG pH POC ABG pCO2 POC ABG pO2 Sodium Potassium Chloride Carbon Dioxide 31 H BUN 22 H Creatinine 0.5 L Glucose POC Glucose Lactic Acid Calcium 8.0 L Phosphorus Magnesium Iron TIBC Ferritin Direct Bilirubin AST Total Creatine Kinase Troponin T Total Protein 5.0 L Albumin 1.4 L Prealbumin LDL Cholesterol Direct HDL Cholesterol Vitamin B12 TSH PTH Intact Urine Creatinine Urine Total Protein Vancomycin Trough Digoxin Salicylates Acetaminophen Crossmatch 03/29/19 03/29/19 03/29/19 04:40 04:40 11:50 WBC RBC Hgb Hct MCV MCH MCHC RDW Plt Count Lymph % (Auto) Arthur % (Auto) Eos % (Auto) Lymph # Arthur # Eos # Seg Neutrophils % Seg Neuts % (Manual) Lymphocytes % (Manual) Monocytes % (Manual) Eosinophils % (Manual) Nucleated RBC % Seg Neutrophils # Seg Neutrophils # Man Lymphocytes # (Manual) Monocytes # (Manual) Eosinophils # (Manual) PT INR APTT 71.8 H* POC ABG pH POC ABG pCO2 POC ABG pO2 Sodium Potassium Chloride Carbon Dioxide BUN Creatinine Glucose POC Glucose 118 H Lactic Acid Calcium Phosphorus Magnesium Iron TIBC Ferritin Direct Bilirubin AST Total Creatine Kinase Troponin T Total Protein Albumin Prealbumin LDL Cholesterol Direct HDL Cholesterol Vitamin B12 TSH PTH Intact Urine Creatinine Urine Total Protein Vancomycin Trough Digoxin 3.5 H* Salicylates Acetaminophen Crossmatch 07/03/29/19 03/29/19 16:20 16:20 21:10 WBC RBC Hgb Hct MCV MCH MCHC RDW Plt Count Lymph % (Auto) Arthur % (Auto) Eos % (Auto) Lymph # Arthur # Eos # Seg Neutrophils % Seg Neuts % (Manual) Lymphocytes % (Manual) Monocytes % (Manual) Eosinophils % (Manual) Nucleated RBC % Seg Neutrophils # Seg Neutrophils # Man Lymphocytes # (Manual) Monocytes # (Manual) Eosinophils # (Manual) PT INR APTT 61.5 H* 112.6 H* POC ABG pH POC ABG pCO2 POC ABG pO2 Sodium Potassium Chloride Carbon Dioxide BUN Creatinine Glucose POC Glucose Lactic Acid Calcium Phosphorus Magnesium Iron TIBC Ferritin Direct Bilirubin AST Total Creatine Kinase Troponin T Total Protein Albumin Prealbumin LDL Cholesterol Direct HDL Cholesterol Vitamin B12 TSH PTH Intact Urine Creatinine Urine Total Protein Vancomycin Trough Digoxin 2.6 H* Salicylates Acetaminophen Crossmatch 03/29/19 03/30/19 03/30/19 22:30 04:42 04:42 WBC RBC Hgb 6.4 L Hct 18.9 L* MCV MCH MCHC RDW Plt Count Lymph % (Auto) Arthur % (Auto) Eos % (Auto) Lymph # Arthur # Eos # Seg Neutrophils % Seg Neuts % (Manual) Lymphocytes % (Manual) Monocytes % (Manual) Eosinophils % (Manual) Nucleated RBC % Seg Neutrophils # Seg Neutrophils # Man Lymphocytes # (Manual) Monocytes # (Manual) Eosinophils # (Manual) PT INR APTT 103.8 H* POC ABG pH POC ABG pCO2 POC ABG pO2 Sodium Potassium Chloride Carbon Dioxide BUN Creatinine Glucose POC Glucose Lactic Acid Calcium Phosphorus Magnesium Iron TIBC Ferritin Direct Bilirubin AST Total Creatine Kinase Troponin T Total Protein Albumin Prealbumin LDL Cholesterol Direct HDL Cholesterol Vitamin B12 TSH PTH Intact Urine Creatinine Urine Total Protein Vancomycin Trough Digoxin 2.6 H* Salicylates Acetaminophen Crossmatch 03/30/19 03/30/19 03/30/19 07:04 07:58 11:15 WBC RBC 2.66 L Hgb 8.5 L Hct 25.3 L D MCV MCH MCHC RDW 17.4 H Plt Count Lymph % (Auto) Arthur % (Auto) Eos % (Auto) Lymph # Arthur # Eos # Seg Neutrophils % Seg Neuts % (Manual) Lymphocytes % (Manual) Monocytes % (Manual) Eosinophils % (Manual) Nucleated RBC % Seg Neutrophils # Seg Neutrophils # Man Lymphocytes # (Manual) Monocytes # (Manual) Eosinophils # (Manual) PT INR APTT 50.5 H POC ABG pH POC ABG pCO2 POC ABG pO2 Sodium Potassium Chloride Carbon Dioxide BUN Creatinine Glucose POC Glucose Lactic Acid Calcium Phosphorus Magnesium Iron TIBC Ferritin Direct Bilirubin AST Total Creatine Kinase Troponin T Total Protein Albumin Prealbumin LDL Cholesterol Direct HDL Cholesterol Vitamin B12 TSH PTH Intact Urine Creatinine Urine Total Protein Vancomycin Trough Digoxin Salicylates Acetaminophen Crossmatch See Detail 03/30/19 03/30/19 03/30/19 11:36 17:40 22:51 WBC RBC 2.48 L Hgb 7.9 L Hct 23.9 L MCV MCH MCHC RDW 17.7 H Plt Count Lymph % (Auto) Arthur % (Auto) Eos % (Auto) Lymph # Arthur # Eos # Seg Neutrophils % Seg Neuts % (Manual) Lymphocytes % (Manual) Monocytes % (Manual) Eosinophils % (Manual) Nucleated RBC % Seg Neutrophils # Seg Neutrophils # Man Lymphocytes # (Manual) Monocytes # (Manual) Eosinophils # (Manual) PT INR APTT POC ABG pH POC ABG pCO2 POC ABG pO2 Sodium Potassium Chloride Carbon Dioxide BUN Creatinine Glucose POC Glucose 129 H 112 H Lactic Acid Calcium Phosphorus Magnesium Iron TIBC Ferritin Direct Bilirubin AST Total Creatine Kinase Troponin T Total Protein Albumin Prealbumin LDL Cholesterol Direct HDL Cholesterol Vitamin B12 TSH PTH Intact Urine Creatinine Urine Total Protein Vancomycin Trough Digoxin Salicylates Acetaminophen Crossmatch 03/30/19 03/31/19 03/31/19 23:47 05:00 11:35 WBC RBC Hgb 8.0 L Hct 23.7 L MCV MCH MCHC RDW Plt Count Lymph % (Auto) Arthur % (Auto) Eos % (Auto) Lymph # Arthur # Eos # Seg Neutrophils % Seg Neuts % (Manual) Lymphocytes % (Manual) Monocytes % (Manual) Eosinophils % (Manual) Nucleated RBC % Seg Neutrophils # Seg Neutrophils # Man Lymphocytes # (Manual) Monocytes # (Manual) Eosinophils # (Manual) PT INR APTT POC ABG pH POC ABG pCO2 POC ABG pO2 Sodium Potassium Chloride Carbon Dioxide BUN Creatinine Glucose POC Glucose 112 H 106 H Lactic Acid Calcium Phosphorus Magnesium Iron TIBC Ferritin Direct Bilirubin AST Total Creatine Kinase Troponin T Total Protein Albumin Prealbumin LDL Cholesterol Direct HDL Cholesterol Vitamin B12 TSH PTH Intact Urine Creatinine Urine Total Protein Vancomycin Trough Digoxin Salicylates Acetaminophen Crossmatch 04/01/19 04/02/19 04/03/19 11:38 08:33 06:15 WBC RBC 2.11 L Hgb 7.8 L 6.8 L Hct 23.1 L 20.5 L MCV 98 H MCH MCHC RDW 17.6 H Plt Count Lymph % (Auto) Arthur % (Auto) 12.1 H Eos % (Auto) 7.4 H Lymph # Arthur # Eos # Seg Neutrophils % Seg Neuts % (Manual) Lymphocytes % (Manual) Monocytes % (Manual) Eosinophils % (Manual) Nucleated RBC % Seg Neutrophils # Seg Neutrophils # Man Lymphocytes # (Manual) Monocytes # (Manual) Eosinophils # (Manual) PT INR APTT POC ABG pH POC ABG pCO2 POC ABG pO2 Sodium Potassium Chloride Carbon Dioxide BUN Creatinine Glucose POC Glucose 136 H Lactic Acid Calcium Phosphorus Magnesium Iron TIBC Ferritin Direct Bilirubin AST Total Creatine Kinase Troponin T Total Protein Albumin Prealbumin LDL Cholesterol Direct HDL Cholesterol Vitamin B12 TSH PTH Intact Urine Creatinine Urine Total Protein Vancomycin Trough Digoxin Salicylates Acetaminophen Crossmatch 04/03/19 04/04/19 04/04/19 08:22 05:20 05:20 WBC RBC 2.27 L Hgb 7.3 L 7.3 L Hct 21.9 L 22.0 L MCV MCH MCHC RDW 16.8 H Plt Count Lymph % (Auto) Arthur % (Auto) 12.2 H Eos % (Auto) 6.6 H Lymph # Arthur # 1.0 H Eos # 0.5 H Seg Neutrophils % Seg Neuts % (Manual) Lymphocytes % (Manual) Monocytes % (Manual) Eosinophils % (Manual) Nucleated RBC % Seg Neutrophils # Seg Neutrophils # Man Lymphocytes # (Manual) Monocytes # (Manual) Eosinophils # (Manual) PT INR APTT POC ABG pH POC ABG pCO2 POC ABG pO2 Sodium Potassium Chloride Carbon Dioxide BUN Creatinine 0.4 L Glucose POC Glucose Lactic Acid Calcium 7.9 L Phosphorus 2.20 L Magnesium 1.40 L Iron TIBC Ferritin Direct Bilirubin AST Total Creatine Kinase Troponin T Total Protein Albumin Prealbumin LDL Cholesterol Direct HDL Cholesterol Vitamin B12 TSH PTH Intact Urine Creatinine Urine Total Protein Vancomycin Trough Digoxin Salicylates Acetaminophen Crossmatch 04/05/19 04/05/19 04/05/19 03:30 03:30 06:51 WBC RBC 2.09 L Hgb 6.7 L Hct 20.1 L MCV MCH MCHC RDW 16.6 H Plt Count Lymph % (Auto) Arthur % (Auto) 12.6 H Eos % (Auto) 6.2 H Lymph # Arthur # 1.0 H Eos # 0.5 H Seg Neutrophils % Seg Neuts % (Manual) Lymphocytes % (Manual) Monocytes % (Manual) Eosinophils % (Manual) Nucleated RBC % Seg Neutrophils # Seg Neutrophils # Man Lymphocytes # (Manual) Monocytes # (Manual) Eosinophils # (Manual) PT INR APTT POC ABG pH POC ABG pCO2 POC ABG pO2 Sodium Potassium Chloride Carbon Dioxide BUN Creatinine 0.4 L Glucose POC Glucose Lactic Acid Calcium 7.6 L Phosphorus Magnesium Iron TIBC Ferritin Direct Bilirubin AST Total Creatine Kinase Troponin T Total Protein Albumin Prealbumin LDL Cholesterol Direct HDL Cholesterol Vitamin B12 TSH PTH Intact Urine Creatinine Urine Total Protein Vancomycin Trough Digoxin Salicylates Acetaminophen Crossmatch See Detail 04/05/19 04/05/19 04/06/19 13:07 23:50 09:36 WBC RBC 2.56 L Hgb 8.4 L Hct 23.5 L MCV MCH 33 H MCHC 36 H RDW 17.9 H Plt Count Lymph % (Auto) Arthur % (Auto) Eos % (Auto) Lymph # Arthur # Eos # Seg Neutrophils % Seg Neuts % (Manual) Lymphocytes % (Manual) Monocytes % (Manual) Eosinophils % (Manual) Nucleated RBC % Seg Neutrophils # Seg Neutrophils # Man Lymphocytes # (Manual) Monocytes # (Manual) Eosinophils # (Manual) PT INR APTT POC ABG pH POC ABG pCO2 POC ABG pO2 Sodium Potassium Chloride Carbon Dioxide BUN Creatinine Glucose POC Glucose 106 H 109 H Lactic Acid Calcium Phosphorus Magnesium Iron TIBC Ferritin Direct Bilirubin AST Total Creatine Kinase Troponin T Total Protein Albumin Prealbumin LDL Cholesterol Direct HDL Cholesterol Vitamin B12 TSH PTH Intact Urine Creatinine Urine Total Protein Vancomycin Trough Digoxin Salicylates Acetaminophen Crossmatch 04/07/19 04/07/19 04/07/19 06:50 06:50 11:37 WBC RBC Hgb 8.6 L Hct 25.6 L MCV MCH MCHC RDW Plt Count Lymph % (Auto) Arthur % (Auto) Eos % (Auto) Lymph # Arthur # Eos # Seg Neutrophils % Seg Neuts % (Manual) Lymphocytes % (Manual) Monocytes % (Manual) Eosinophils % (Manual) Nucleated RBC % Seg Neutrophils # Seg Neutrophils # Man Lymphocytes # (Manual) Monocytes # (Manual) Eosinophils # (Manual) PT INR APTT POC ABG pH POC ABG pCO2 POC ABG pO2 Sodium Potassium Chloride Carbon Dioxide BUN Creatinine 0.6 L Glucose POC Glucose 118 H Lactic Acid Calcium 8.1 L Phosphorus Magnesium Iron TIBC Ferritin Direct Bilirubin AST Total Creatine Kinase Troponin T Total Protein Albumin Prealbumin LDL Cholesterol Direct HDL Cholesterol Vitamin B12 TSH PTH Intact Urine Creatinine Urine Total Protein Vancomycin Trough Digoxin Salicylates Acetaminophen Crossmatch 04/07/19 04/08/19 04/09/19 18:29 05:46 09:15 WBC 11.3 H RBC 2.58 L Hgb 7.9 L Hct 24.4 L MCV MCH MCHC RDW 17.3 H Plt Count 455 H Lymph % (Auto) Arthur % (Auto) Eos % (Auto) Lymph # Arthur # Eos # Seg Neutrophils % Seg Neuts % (Manual) Lymphocytes % (Manual) Monocytes % (Manual) Eosinophils % (Manual) Nucleated RBC % Seg Neutrophils # Seg Neutrophils # Man Lymphocytes # (Manual) Monocytes # (Manual) Eosinophils # (Manual) PT INR APTT POC ABG pH POC ABG pCO2 POC ABG pO2 Sodium Potassium Chloride Carbon Dioxide BUN Creatinine Glucose POC Glucose 108 H 113 H Lactic Acid Calcium Phosphorus Magnesium Iron TIBC Ferritin Direct Bilirubin AST Total Creatine Kinase Troponin T Total Protein Albumin Prealbumin LDL Cholesterol Direct HDL Cholesterol Vitamin B12 TSH PTH Intact Urine Creatinine Urine Total Protein Vancomycin Trough Digoxin Salicylates Acetaminophen Crossmatch 04/09/19 04/09/19 04/09/19 12:14 17:56 23:41 WBC RBC Hgb Hct MCV MCH MCHC RDW Plt Count Lymph % (Auto) Arthur % (Auto) Eos % (Auto) Lymph # Arthur # Eos # Seg Neutrophils % Seg Neuts % (Manual) Lymphocytes % (Manual) Monocytes % (Manual) Eosinophils % (Manual) Nucleated RBC % Seg Neutrophils # Seg Neutrophils # Man Lymphocytes # (Manual) Monocytes # (Manual) Eosinophils # (Manual) PT INR APTT POC ABG pH POC ABG pCO2 POC ABG pO2 Sodium Potassium Chloride Carbon Dioxide BUN Creatinine Glucose POC Glucose 135 H 117 H 128 H Lactic Acid Calcium Phosphorus Magnesium Iron TIBC Ferritin Direct Bilirubin AST Total Creatine Kinase Troponin T Total Protein Albumin Prealbumin LDL Cholesterol Direct HDL Cholesterol Vitamin B12 TSH PTH Intact Urine Creatinine Urine Total Protein Vancomycin Trough Digoxin Salicylates Acetaminophen Crossmatch 04/10/19 04/10/19 04/10/19 05:10 05:10 05:29 WBC 12.5 H RBC 2.46 L Hgb 7.6 L Hct 23.0 L MCV MCH MCHC RDW 17.3 H Plt Count 446 H Lymph % (Auto) 12.8 L Arthur % (Auto) 12.1 H Eos % (Auto) Lymph # Arthur # 1.5 H Eos # Seg Neutrophils % 72.6 H Seg Neuts % (Manual) Lymphocytes % (Manual) Monocytes % (Manual) Eosinophils % (Manual) Nucleated RBC % Seg Neutrophils # 9.0 H Seg Neutrophils # Man Lymphocytes # (Manual) Monocytes # (Manual) Eosinophils # (Manual) PT INR APTT POC ABG pH POC ABG pCO2 POC ABG pO2 Sodium 136 L Potassium Chloride Carbon Dioxide BUN Creatinine 0.6 L Glucose POC Glucose 125 H Lactic Acid Calcium 7.6 L Phosphorus Magnesium Iron TIBC Ferritin Direct Bilirubin AST Total Creatine Kinase Troponin T Total Protein Albumin Prealbumin LDL Cholesterol Direct HDL Cholesterol Vitamin B12 TSH PTH Intact Urine Creatinine Urine Total Protein Vancomycin Trough Digoxin Salicylates Acetaminophen Crossmatch
[2019-04-10] MEDS: SUBLIMAZE IV PRN (15:06)
[2019-04-10] MEDS ORDERED: CALCIUM GLUCONATE 1,000 MG in NACL 0.9% 100 ML IV ONE (16:00)
[2019-04-10] MEDS: TYLENOL FEEDTUBE PRN (16:25)
[2019-04-10] MEDS: DIFLUCAN 200 MG/100 ML BAG IV SCH (16:26)
[2019-04-11] MEDS: HumaLOG SUB-Q SCH ×4 (00:40→21:29)
[2019-04-11] MEDS: DUONEB *Not for PRN Use IH SCH ×4 (02:40→21:05)
[2019-04-11 04:54] LABS: Basophils # (Auto) 0.1 K/mm3 (0.0-0.1); Basophils % (Auto) 0.3 % (0.0-1.8); Eosinophils # (Auto) 0.3 K/mm3 (0.0-0.4); Eosinophils % (Auto) 1.4 % (0.0-4.3); Hematocrit 24.3 % (30.3-42.9); Lymphocytes # (Auto) 1.8 K/mm3 (1.2-5.4); Lymphocytes % (Auto) 9.8 % (13.4-35.0); Mean Corpuscular HGB Conc 33 % (30-34); Mean Corpuscular Volume 93 fl (79-97); Monocytes # (Auto) 1.8 K/mm3 (0.0-0.8); Monocytes % (Auto) 9.5 % (0.0-7.3); Platelet Count 490 K/mm3 (140-440); Red Blood Count 2.61 M/mm3 (3.65-5.03); Red Cell Distribution Width 17.2 % (13.2-15.2)
[2019-04-11 05:05] LABS: INR 1.26 (0.87-1.13)
[2019-04-11] MEDS: ZYVOX 600MG/300ML 600 MG/300 ML BAG IV SCH ×2 (05:08→18:14)
[2019-04-11 05:14] LABS: BUN/Creatinine Ratio 23; Blood Urea Nitrogen 14 mg/dL (7-17); Calcium 7.7 mg/dL (8.4-10.2); Hemolysis Index 3
--- NOTE | 2019-04-11 06:22 | Hem/Onc Progress Note ---
Assessment and Plan h/o low plt - at admission DVT was on home hospice 1. h/o Thrombocytopenia. This may be secondary to medications. The platelets were even low at admission. The differential includes infection versus a marrow issue. At this time, platelets are adequate, we will follow the trend. Because of clinical suspicion, HIT test has been ordered. Argatroban ordered. Heparin has been stopped. plt have improved 2. h/o Pneumonia. 3. h/o Encephalopathy. 4. Respiratory failure 5. h/o Renal impairment. 6. Deep vein thrombosis. Her immobilization may have a role. Central line also may have a role. Acute Right common femoral DVT and right IJ vein thrombosis the patient was on Argatroban. IVC filter may prevent the leg DVT from progression to PE; however, for IJ DVT, we have limited options. The patient was on home hospice as per notes. Atrial fibrillation, she was on medications. History of anemia, deficiency investigations. Leukocytosis, likely reactive. B12 level more than 2000, serum iron 32. anemia - IV iron trial 04/11/2019 anemia - off argatroban - HIT test negative h/o PRBC it appears that the pt is possibly bleeding - based on hb fall - hence anticoag has been held if hb improves - ? oral anticoag an option - eliquis vs xarelto trache plan today h/o IVC filter on vent h/o encephalopathy - Patient Problems (1) Thrombocytopenia Current Visit: Yes Status: Acute Subjective Date of service: 04/11/19 Principal diagnosis: anemia - dvt Interval history: pt awake - looks at you - due TRACH Objective - Exam Narrative Exam: Pain - none - on vent General appearance intubated Performance status - complete help needed Eyes - no icterus ENT no thrush LNs cervical not palpable Neck - no LNs/mass Respiratory Normal Breath sounds - CTA anteriorly CVS S1 S2 + Extremities normal temperature - flaccid General GI Soft - distended Rectal deferred female - deferred Skin warm Musculoskeletal not able to evaluate Neurologically - on vent - Constitutional Vitals: Last Vital Signs Temp 99.8 F H 04/11/19 04:00 Pulse 117 H 04/11/19 06:07 Resp 31 H 04/11/19 06:07 BP 143/65 04/11/19 06:07 Pulse Ox 92 04/11/19 06:07 - Labs Lab Results: Laboratory Results - last 24 hr 04/10/19 04/10/19 04/10/19 12:40 18:31 23:41 WBC RBC Hgb Hct MCV MCH MCHC RDW Plt Count Lymph % (Auto) [place] % (Auto) Eos % (Auto) Baso % (Auto) Lymph # [place] # Eos # Baso # Seg Neutrophils % Seg Neutrophils # PT INR Sodium Potassium Chloride Carbon Dioxide Anion Gap BUN Creatinine Estimated GFR BUN/Creatinine Ratio Glucose POC Glucose 91 165 H 133 H Calcium 04/11/19 04/11/19 04/11/19 04:25 04:25 04:25 WBC 18.5 H RBC 2.61 L Hgb 8.0 L Hct 24.3 L MCV 93 MCH 31 MCHC 33 RDW 17.2 H Plt Count 490 H Lymph % (Auto) 9.8 L [place] % (Auto) 9.5 H Eos % (Auto) 1.4 Baso % (Auto) 0.3 Lymph # 1.8 [place] # 1.8 H Eos # 0.3 Baso # 0.1 Seg Neutrophils % 79.0 H Seg Neutrophils # 14.6 H PT 15.5 H INR 1.26 H Sodium 136 L Potassium 3.6 Chloride 100.3 Carbon Dioxide 23 Anion Gap 16 BUN 14 Creatinine 0.6 L Estimated GFR > 60 BUN/Creatinine Ratio 23 Glucose 70 POC Glucose Calcium 7.7 L 04/11/19 05:38 WBC RBC Hgb Hct MCV MCH MCHC RDW Plt Count Lymph % (Auto) [place] % (Auto) Eos % (Auto) Baso % (Auto) Lymph # [place] # Eos # Baso # Seg Neutrophils % Seg Neutrophils # PT INR Sodium Potassium Chloride Carbon Dioxide Anion Gap BUN Creatinine Estimated GFR BUN/Creatinine Ratio Glucose POC Glucose 107 H Calcium Medications & Allergies - Medications Allergies/Adverse Reactions: Allergies No Known Allergies Allergy (Unverified 03/19/19 13:11) Home Medications: Home Medications Medication Instructions Recorded Confirmed Last Taken Type Aspirin EC [Halfprin EC] 81 mg PO DAILY 03/20/19 03/20/19 Unknown History Divalproex Sodium 375 mg PO Q8H PRN 03/20/19 03/20/19 Unknown History Metoprolol [Lopressor TAB] 50 mg PO BID 03/20/19 03/20/19 Unknown History Sennosides/Docusate Sodium [Senna 8.6 mg PO BID PRN 03/20/19 03/20/19 Unknown History Plus Tablet] levETIRAcetam [Keppra TAB] 500 mg PO BID 03/20/19 03/20/19 Unknown History Active Medications: Generic Name Dose Route Start Last Admin Trade Name Freq PRN Reason Stop Dose Admin Acetaminophen 650 mg 03/24/19 23:48 04/10/19 16:25 Tylenol FEEDTUBE 650 mg Q6H PRN Administration Pain, Mild (1-3) Albuterol 2.5 mg 03/19/19 23:58 Proventil IH Q3HRT PRN Shortness Of Breath Albuterol/Ipratropium 1 ampul 03/20/19 02:00 04/11/19 02:40 Duoneb *Not For Prn Use* IH 1 ampul Q6HRT YUSUF Administration Amiodarone HCl 200 mg 03/22/19 22:00 04/10/19 21:39 Cordarone PO 200 mg BID YUSUF Administration Lipase/Protease/Amylase 1 each 04/07/19 15:50 Pancreaze 10,500 Unit FEEDTUBE PRN PRN For Clogged Feeding Tube Aspirin 81 mg 03/21/19 10:00 04/10/19 10:42 Baby Aspirin PO 81 mg DAILY YUSUF Administration Budesonide 0.5 mg 03/19/19 23:45 04/10/19 20:06 Pulmicort IH 0.5 mg Q12HRT YUSUF Administration Dextrose 50 ml 03/19/19 23:58 03/21/19 16:29 D50w (25gm) Syringe IV 50 ml PRN PRN Administration Hypoglycemia Famotidine 20 mg 03/22/19 10:00 04/10/19 21:39 Pepcid PO 20 mg BID YUSUF Administration Fentanyl 50 mcg 03/19/19 12:45 04/10/19 15:06 Sublimaze IV 50 mcg Q10MIN PRN Administration ANALGESIA Hydromorphone HCl 0.5 mg 03/19/19 23:58 04/10/19 21:36 Dilaudid IV 0.5 mg Q3H PRN Administration Pain , Severe (7-10) Hydrophilic Ointment 1 applic 03/19/19 12:45 Vaseline Lip Therapy TP Q2HR PRN Dry Lips Fentanyl Citrate 2,000 mcg in 100 mls @ 2.835 mls/hr 03/19/19 14:00 03/21/19 11:33 Fentanyl Drip Premix IV 0 mcg/kg/hr TITR YUSUF 0 mls/hr Titration Protocol 1 MCG/KG/HR Norepinephrine 4 mg in 250 mls @ 7.5 mls/hr 03/25/19 11:00 03/30/19 23:45 Levophed Drip 4 Mg/Ns 250 Ml IV 0 mcg/min TITR YUSUF 0 mls/hr Titration Protocol 2 MCG/MIN Fluconazole 200 mg in 100 mls @ 100 mls/hr 04/08/19 17:00 04/10/19 16:26 Diflucan IV 04/12/19 16:59 100 mls/hr Q24H YUSUF Administration Protocol Linezolid 600 mg in 300 mls @ 300 mls/hr 04/08/19 18:00 04/11/19 05:08 Zyvox 600mg/300ml IV 04/12/19 17:59 300 mls/hr Q12H YUSUF Administration Protocol Insulin Human Lispro 0 unit 03/20/19 00:00 04/11/19 06:13 Humalog SUB-Q Not Given Q6HR [facility] Protocol Metoclopramide HCl 5 mg 03/20/19 00:12 Reglan IV Q6H PRN Nausea And Vomiting Metoprolol Tartrate 2.5 mg 03/23/19 13:17 03/24/19 21:20 Lopressor IV 2.5 mg Q2HR PRN Administration HR >150 Multi-Ingred Cream/Lotion/Oil/Oint 1 applic 03/19/19 12:45 Artificial Tears Ophth Oint OU Q4HR PRN Dry Eye(s) Ondansetron HCl 4 mg 03/19/19 23:58 Zofran IV Q8H PRN Nausea And Vomiting Promethazine HCl 25 mg 03/19/19 23:58 Phenergan IL Q6H PRN N/V IF NPO AND NO IV ACCESS Simple Syrup 15 ml 04/07/19 15:50 Simple Syrup FEEDTUBE PRN PRN Hypoglycemia Simple Syrup 30 ml 04/07/19 15:50 Simple Syrup FEEDTUBE PRN PRN Hypoglycemia Sodium Bicarbonate 325 mg 04/07/19 15:50 Sodium Bicarbonate FEEDTUBE PRN PRN For Clogged Feeding Tube Sodium Chloride 10 ml 03/20/19 10:00 04/10/19 21:38 Sodium Chloride Flush Syringe 10 Ml IV 10 ml BID YUSUF Administration Sodium Chloride 10 ml 03/19/19 23:58 04/07/19 10:45 Sodium Chloride Flush Syringe 10 Ml IV 10 ml PRN PRN Administration LINE FLUSH Trimethoprim/Sulfamethoxazole 1 each 04/07/19 14:00 04/10/19 21:40 Bactrim Ds PO 04/14/19 22:01 1 each Q12HR YUSUF Administration
[2019-04-11] MEDS: DILAUDID IV PRN ×2 (09:08→21:26)
[2019-04-11] MEDS: PULMICORT IH SCH ×2 (09:33→21:05)
[2019-04-11] MEDS: CORDARONE PO SCH ×2 (09:44→21:28)
[2019-04-11] MEDS: PEPCID PO SCH ×2 (09:44→21:28)
[2019-04-11] MEDS: BACTRIM DS PO SCH ×2 (09:44→21:29)
[2019-04-11] MEDS: BABY ASPIRIN PO SCH (09:44)
[2019-04-11] MEDS: SODIUM CHLORIDE FLUSH SYRINGE 10 ML IV SCH (09:45)
[2019-04-11] MEDS: TYLENOL FEEDTUBE PRN (09:52)
--- NOTE | 2019-04-11 11:19 | Progress Note ---
Assessment and Plan 73 y/o female found unresponsive now intubated and septic, etiology thought secondary to pneumonia with anemia and thrombocytopenia, and persistent fevers found to have multiple DVT's. 1. Trach and Peg at bedside today 2. Attempt daily PSV trials, fail daily 3. Will likely need LTACH as she continues to fail PSV daily 4. Follow up repeat cultures 5. Abx therapy per ID 6. Will add BID metoprolol 12.5 to see if this helps with HR and BP CCT 31 minutes. Subjective Date of service: 04/11/19 Principal diagnosis: anemia - dvt Interval history: No acute events. Remains febrile. Attempted to treat pain yesterday to see if this would help with BP but no improvement. Tachycardic as well. Scheduled for trach and peg placement today. Objective Vital Signs - 12hr 04/10/19 04/10/19 04/11/19 23:30 23:45 00:00 Temperature 97.9 F Pulse Rate 112 H 103 H Pulse Rate [ Anterior Bilateral Throughout] Pulse Rate [ 103 H From Monitor] Pulse Rate [ None] Respiratory Rate Respiratory Rate [Anterior Bilateral Throughout] Blood Pressure 160/67 O2 Sat by Pulse 93 92 Oximetry 04/11/19 04/11/19 04/11/19 00:15 02:15 02:51 Temperature Pulse Rate 103 H 103 H Pulse Rate [ 116 H Anterior Bilateral Throughout] Pulse Rate [ 103 H 103 H From Monitor] Pulse Rate [ None] Respiratory Rate Respiratory 27 H Rate [Anterior Bilateral Throughout] Blood Pressure O2 Sat by Pulse 93 93 Oximetry 04/11/19 04/11/19 04/11/19 03:05 04:00 06:05 Temperature 99.8 F H Pulse Rate 117 H 117 H Pulse Rate [ Anterior Bilateral Throughout] Pulse Rate [ From Monitor] Pulse Rate [ None] Respiratory Rate Respiratory Rate [Anterior Bilateral Throughout] Blood Pressure 167/74 O2 Sat by Pulse 93 93 Oximetry 04/11/19 04/11/19 04/11/19 06:07 08:00 09:30 Temperature Pulse Rate 118 H 119 H Pulse Rate [ Anterior Bilateral Throughout] Pulse Rate [ 112 H From Monitor] Pulse Rate [ 117 H 118 H None] Respiratory 31 H 24 Rate Respiratory Rate [Anterior Bilateral Throughout] Blood Pressure 143/65 150/72 118/51 O2 Sat by Pulse 92 92 92 Oximetry 04/11/19 09:33 Temperature Pulse Rate Pulse Rate [ 119 H Anterior Bilateral Throughout] Pulse Rate [ From Monitor] Pulse Rate [ None] Respiratory Rate Respiratory 32 H Rate [Anterior Bilateral Throughout] Blood Pressure O2 Sat by Pulse Oximetry Constitutional: other (intubated, critically ill on ventilator, awake) Eyes: non-icteric ENT: other (intubated ) Neck: supple Effort: normal Ascultation: Bilateral: diminished breath sounds (grossly clear ), rales (coarse bilat ), other (coarse BS bilaterally) Percussion: Bilateral: not dull, dull Cardiovascular: other (tachy AF, no mrg) Gastrointestinal: normoactive bowel sounds, soft, non-tender, non-distended Integumentary: normal Extremities: anasarca Neurologic: other (awake, alert, L sided hemiparesis, contractures upper extremities) Psychiatric: mood appropriate, affect normal CBC and BMP: 04/11/19 04:25 04/11/19 04:25 ABG, PT/INR, D-dimer: ABG POC ABG pH 7.411 (7.35-7.45) 03/25/19 05:40 POC ABG pO2 83 (80-105) 03/25/19 05:40 POC ABG HCO3 17.7 (22-26 mml/L) 03/25/19 05:40 POC ABG Total CO2 19 (23-27mmol/L) 03/25/19 05:40 POC ABG O2 Sat 97 03/25/19 05:40 PT/INR, D-dimer PT 15.5 Sec. (12.2-14.9) H 04/11/19 04:25 INR 1.26 (0.87-1.13) H 04/11/19 04:25 Abnormal lab findings: Abnormal Labs 03/19/19 03/19/19 03/19/19 12:59 12:59 12:59 WBC RBC 3.44 L Hgb Hct MCV 101 H MCH 34 H MCHC RDW Plt Count 98 L Lymph % (Auto) [place] % (Auto) Eos % (Auto) Lymph # [place] # Eos # Seg Neutrophils % Seg Neuts % (Manual) 11.0 L Lymphocytes % (Manual) Monocytes % (Manual) 10.0 H Eosinophils % (Manual) Nucleated RBC % 1.0 H Seg Neutrophils # Seg Neutrophils # Man 0.6 L Lymphocytes # (Manual) Monocytes # (Manual) Eosinophils # (Manual) PT INR APTT POC ABG pH POC ABG pCO2 POC ABG pO2 Sodium 149 H Potassium Chloride 109.4 H Carbon Dioxide BUN 51 H Creatinine 3.2 H Glucose 58 L POC Glucose Lactic Acid 7.60 H* Calcium 7.8 L Phosphorus Magnesium 1.60 L Iron TIBC Ferritin Direct Bilirubin AST 75 H Total Creatine Kinase 1499 H Troponin T 0.109 H* Total Protein 5.2 L Albumin 1.7 L Prealbumin LDL Cholesterol Direct 22 L HDL Cholesterol 31 L Vitamin B12 TSH PTH Intact Urine Creatinine Urine Total Protein Vancomycin Trough Digoxin Salicylates Acetaminophen Crossmatch 03/19/19 03/19/19 03/19/19 12:59 12:59 14:48 WBC RBC Hgb Hct MCV MCH MCHC RDW Plt Count Lymph % (Auto) [place] % (Auto) Eos % (Auto) Lymph # [place] # Eos # Seg Neutrophils % Seg Neuts % (Manual) Lymphocytes % (Manual) Monocytes % (Manual) Eosinophils % (Manual) Nucleated RBC % Seg Neutrophils # Seg Neutrophils # Man Lymphocytes # (Manual) Monocytes # (Manual) Eosinophils # (Manual) PT INR APTT POC ABG pH POC ABG pCO2 POC ABG pO2 Sodium Potassium Chloride Carbon Dioxide BUN Creatinine Glucose POC Glucose 44 L Lactic Acid Calcium Phosphorus Magnesium Iron TIBC Ferritin Direct Bilirubin AST Total Creatine Kinase Troponin T Total Protein Albumin Prealbumin LDL Cholesterol Direct HDL Cholesterol Vitamin B12 TSH PTH Intact Urine Creatinine Urine Total Protein Vancomycin Trough Digoxin Salicylates < 0.3 L Acetaminophen < 5.0 L Crossmatch 03/19/19 03/19/19 03/19/19 15:33 15:52 16:26 WBC RBC Hgb Hct MCV MCH MCHC RDW Plt Count Lymph % (Auto) [place] % (Auto) Eos % (Auto) Lymph # [place] # Eos # Seg Neutrophils % Seg Neuts % (Manual) Lymphocytes % (Manual) Monocytes % (Manual) Eosinophils % (Manual) Nucleated RBC % Seg Neutrophils # Seg Neutrophils # Man Lymphocytes # (Manual) Monocytes # (Manual) Eosinophils # (Manual) PT INR APTT POC ABG pH POC ABG pCO2 POC ABG pO2 Sodium Potassium Chloride Carbon Dioxide BUN Creatinine Glucose POC Glucose 228 H 231 H Lactic Acid Calcium Phosphorus Magnesium Iron TIBC Ferritin Direct Bilirubin AST Total Creatine Kinase Troponin T Total Protein Albumin Prealbumin LDL Cholesterol Direct HDL Cholesterol Vitamin B12 TSH PTH Intact Urine Creatinine 31.8 H Urine Total Protein Vancomycin Trough Digoxin Salicylates Acetaminophen Crossmatch 03/19/19 03/19/19 03/19/19 16:38 17:14 18:43 WBC RBC Hgb Hct MCV MCH MCHC RDW Plt Count Lymph % (Auto) [place] % (Auto) Eos % (Auto) Lymph # [place] # Eos # Seg Neutrophils % Seg Neuts % (Manual) Lymphocytes % (Manual) Monocytes % (Manual) Eosinophils % (Manual) Nucleated RBC % Seg Neutrophils # Seg Neutrophils # Man Lymphocytes # (Manual) Monocytes # (Manual) Eosinophils # (Manual) PT INR APTT POC ABG pH 7.196 L POC ABG pCO2 30.8 L POC ABG pO2 Sodium Potassium Chloride Carbon Dioxide BUN Creatinine Glucose POC Glucose 235 H Lactic Acid 8.10 H* Calcium Phosphorus Magnesium Iron TIBC Ferritin Direct Bilirubin AST Total Creatine Kinase Troponin T Total Protein Albumin Prealbumin LDL Cholesterol Direct HDL Cholesterol Vitamin B12 TSH PTH Intact Urine Creatinine Urine Total Protein Vancomycin Trough Digoxin Salicylates Acetaminophen Crossmatch 03/19/19 03/19/19 03/19/19 18:52 20:00 20:56 WBC RBC Hgb Hct MCV MCH MCHC RDW Plt Count Lymph % (Auto) [place] % (Auto) Eos % (Auto) Lymph # [place] # Eos # Seg Neutrophils % Seg Neuts % (Manual) Lymphocytes % (Manual) Monocytes % (Manual) Eosinophils % (Manual) Nucleated RBC % Seg Neutrophils # Seg Neutrophils # Man Lymphocytes # (Manual) Monocytes # (Manual) Eosinophils # (Manual) PT INR APTT POC ABG pH POC ABG pCO2 POC ABG pO2 Sodium Potassium Chloride Carbon Dioxide BUN Creatinine Glucose POC Glucose 240 H 117 H Lactic Acid 5.90 H* Calcium Phosphorus Magnesium Iron TIBC Ferritin Direct Bilirubin AST Total Creatine Kinase Troponin T Total Protein Albumin Prealbumin LDL Cholesterol Direct HDL Cholesterol Vitamin B12 TSH PTH Intact Urine Creatinine Urine Total Protein Vancomycin Trough Digoxin Salicylates Acetaminophen Crossmatch 03/19/19 03/19/19 03/19/19 21:19 22:07 23:00 WBC RBC Hgb Hct MCV MCH MCHC RDW Plt Count Lymph % (Auto) [place] % (Auto) Eos % (Auto) Lymph # [place] # Eos # Seg Neutrophils % Seg Neuts % (Manual) Lymphocytes % (Manual) Monocytes % (Manual) Eosinophils % (Manual) Nucleated RBC % Seg Neutrophils # Seg Neutrophils # Man Lymphocytes # (Manual) Monocytes # (Manual) Eosinophils # (Manual) PT INR APTT POC ABG pH POC ABG pCO2 POC ABG pO2 Sodium Potassium Chloride Carbon Dioxide BUN Creatinine Glucose POC Glucose < 40 L 136 H Lactic Acid 6.10 H* Calcium Phosphorus Magnesium Iron TIBC Ferritin Direct Bilirubin AST Total Creatine Kinase Troponin T Total Protein Albumin Prealbumin LDL Cholesterol Direct HDL Cholesterol Vitamin B12 TSH PTH Intact Urine Creatinine Urine Total Protein Vancomycin Trough Digoxin Salicylates Acetaminophen Crossmatch 03/20/19 03/20/19 03/20/19 00:05 01:38 02:23 WBC RBC Hgb Hct MCV MCH MCHC RDW Plt Count Lymph % (Auto) [place] % (Auto) Eos % (Auto) Lymph # [place] # Eos # Seg Neutrophils % Seg Neuts % (Manual) Lymphocytes % (Manual) Monocytes % (Manual) Eosinophils % (Manual) Nucleated RBC % Seg Neutrophils # Seg Neutrophils # Man Lymphocytes # (Manual) Monocytes # (Manual) Eosinophils # (Manual) PT INR APTT POC ABG pH POC ABG pCO2 POC ABG pO2 Sodium Potassium Chloride Carbon Dioxide BUN Creatinine Glucose POC Glucose 68 L 153 H 127 H Lactic Acid Calcium Phosphorus Magnesium Iron TIBC Ferritin Direct Bilirubin AST Total Creatine Kinase Troponin T Total Protein Albumin Prealbumin LDL Cholesterol Direct HDL Cholesterol Vitamin B12 TSH PTH Intact Urine Creatinine Urine Total Protein Vancomycin Trough Digoxin Salicylates Acetaminophen Crossmatch 03/20/19 03/20/19 03/20/19 03:12 04:31 04:41 WBC RBC Hgb Hct MCV MCH MCHC RDW Plt Count Lymph % (Auto) [place] % (Auto) Eos % (Auto) Lymph # [place] # Eos # Seg Neutrophils % Seg Neuts % (Manual) Lymphocytes % (Manual) Monocytes % (Manual) Eosinophils % (Manual) Nucleated RBC % Seg Neutrophils # Seg Neutrophils # Man Lymphocytes # (Manual) Monocytes # (Manual) Eosinophils # (Manual) PT INR APTT POC ABG pH POC ABG pCO2 POC ABG pO2 53 L 65 L Sodium Potassium Chloride Carbon Dioxide BUN Creatinine Glucose POC Glucose 109 H Lactic Acid Calcium Phosphorus Magnesium Iron TIBC Ferritin Direct Bilirubin AST Total Creatine Kinase Troponin T Total Protein Albumin Prealbumin LDL Cholesterol Direct HDL Cholesterol Vitamin B12 TSH PTH Intact Urine Creatinine Urine Total Protein Vancomycin Trough Digoxin Salicylates Acetaminophen Crossmatch 03/20/19 03/20/19 03/20/19 05:50 07:29 08:14 WBC RBC Hgb Hct MCV MCH MCHC RDW Plt Count Lymph % (Auto) [place] % (Auto) Eos % (Auto) Lymph # [place] # Eos # Seg Neutrophils % Seg Neuts % (Manual) Lymphocytes % (Manual) Monocytes % (Manual) Eosinophils % (Manual) Nucleated RBC % Seg Neutrophils # Seg Neutrophils # Man Lymphocytes # (Manual) Monocytes # (Manual) Eosinophils # (Manual) PT INR APTT POC ABG pH POC ABG pCO2 POC ABG pO2 Sodium Potassium Chloride Carbon Dioxide BUN Creatinine Glucose 61 L POC Glucose 47 L 153 H Lactic Acid Calcium Phosphorus Magnesium 1.60 L Iron TIBC Ferritin Direct Bilirubin AST Total Creatine Kinase Troponin T Total Protein Albumin Prealbumin LDL Cholesterol Direct HDL Cholesterol Vitamin B12 TSH PTH Intact Urine Creatinine Urine Total Protein Vancomycin Trough Digoxin Salicylates Acetaminophen Crossmatch 03/20/19 03/20/19 03/20/19 08:23 08:23 10:59 WBC RBC Hgb Hct MCV MCH MCHC RDW Plt Count Lymph % (Auto) [place] % (Auto) Eos % (Auto) Lymph # [place] # Eos # Seg Neutrophils % Seg Neuts % (Manual) Lymphocytes % (Manual) Monocytes % (Manual) Eosinophils % (Manual) Nucleated RBC % Seg Neutrophils # Seg Neutrophils # Man Lymphocytes # (Manual) Monocytes # (Manual) Eosinophils # (Manual) PT INR APTT POC ABG pH POC ABG pCO2 POC ABG pO2 Sodium Potassium Chloride Carbon Dioxide BUN Creatinine Glucose 101 H POC Glucose 233 H Lactic Acid 9.70 H* Calcium Phosphorus Magnesium Iron TIBC Ferritin Direct Bilirubin AST Total Creatine Kinase Troponin T Total Protein Albumin Prealbumin 0.052 L LDL Cholesterol Direct HDL Cholesterol Vitamin B12 TSH PTH Intact Urine Creatinine Urine Total Protein Vancomycin Trough Digoxin Salicylates Acetaminophen Crossmatch 03/20/19 03/20/19 03/20/19 12:23 16:10 16:40 WBC RBC Hgb Hct MCV MCH MCHC RDW Plt Count Lymph % (Auto) [place] % (Auto) Eos % (Auto) Lymph # [place] # Eos # Seg Neutrophils % Seg Neuts % (Manual) Lymphocytes % (Manual) Monocytes % (Manual) Eosinophils % (Manual) Nucleated RBC % Seg Neutrophils # Seg Neutrophils # Man Lymphocytes # (Manual) Monocytes # (Manual) Eosinophils # (Manual) PT INR APTT POC ABG pH POC ABG pCO2 POC ABG pO2 Sodium Potassium Chloride Carbon Dioxide BUN Creatinine Glucose POC Glucose 135 H 171 H Lactic Acid Calcium Phosphorus Magnesium Iron TIBC Ferritin Direct Bilirubin AST Total Creatine Kinase Troponin T Total Protein Albumin Prealbumin LDL Cholesterol Direct HDL Cholesterol Vitamin B12 TSH PTH Intact Urine Creatinine 53.7 H Urine Total Protein 36 H Vancomycin Trough Digoxin Salicylates Acetaminophen Crossmatch 03/20/19 03/20/19 03/20/19 16:57 17:38 17:50 WBC RBC Hgb Hct MCV MCH MCHC RDW Plt Count Lymph % (Auto) [place] % (Auto) Eos % (Auto) Lymph # [place] # Eos # Seg Neutrophils % Seg Neuts % (Manual) Lymphocytes % (Manual) Monocytes % (Manual) Eosinophils % (Manual) Nucleated RBC % Seg Neutrophils # Seg Neutrophils # Man Lymphocytes # (Manual) Monocytes # (Manual) Eosinophils # (Manual) PT INR APTT POC ABG pH POC ABG pCO2 POC ABG pO2 Sodium Potassium Chloride Carbon Dioxide BUN Creatinine Glucose POC Glucose 152 H 147 H Lactic Acid 9.90 H* Calcium Phosphorus Magnesium Iron TIBC Ferritin Direct Bilirubin AST Total Creatine Kinase Troponin T Total Protein Albumin Prealbumin LDL Cholesterol Direct HDL Cholesterol Vitamin B12 TSH PTH Intact Urine Creatinine Urine Total Protein Vancomycin Trough Digoxin Salicylates Acetaminophen Crossmatch 03/20/19 03/20/19 03/20/19 17:50 17:50 17:50 WBC RBC 2.92 L Hgb 10.0 L Hct 29.3 L MCV 100 H MCH 34 H MCHC RDW Plt Count 81 L Lymph % (Auto) [place] % (Auto) Eos % (Auto) Lymph # [place] # Eos # Seg Neutrophils % Seg Neuts % (Manual) Lymphocytes % (Manual) Monocytes % (Manual) Eosinophils % (Manual) Nucleated RBC % Seg Neutrophils # Seg Neutrophils # Man Lymphocytes # (Manual) Monocytes # (Manual) Eosinophils # (Manual) PT INR APTT POC ABG pH POC ABG pCO2 POC ABG pO2 Sodium Potassium 2.8 L* D Chloride Carbon Dioxide BUN 30 H Creatinine 1.6 H Glucose 107 H POC Glucose Lactic Acid Calcium 6.9 L Phosphorus 2.00 L Magnesium Iron TIBC Ferritin Direct Bilirubin AST Total Creatine Kinase Troponin T Total Protein Albumin Prealbumin LDL Cholesterol Direct HDL Cholesterol Vitamin B12 TSH PTH Intact 171.6 H Urine Creatinine Urine Total Protein Vancomycin Trough Digoxin Salicylates Acetaminophen Crossmatch 03/20/19 03/21/19 03/21/19 21:12 00:30 04:12 WBC RBC Hgb Hct MCV MCH MCHC RDW Plt Count Lymph % (Auto) [place] % (Auto) Eos % (Auto) Lymph # [place] # Eos # Seg Neutrophils % Seg Neuts % (Manual) Lymphocytes % (Manual) Monocytes % (Manual) Eosinophils % (Manual) Nucleated RBC % Seg Neutrophils # Seg Neutrophils # Man Lymphocytes # (Manual) Monocytes # (Manual) Eosinophils # (Manual) PT INR APTT POC ABG pH POC ABG pCO2 POC ABG pO2 Sodium Potassium 3.0 L Chloride Carbon Dioxide 21 L BUN Creatinine 1.4 H Glucose 103 H POC Glucose Lactic Acid 8.70 H* 9.40 H* Calcium 6.8 L Phosphorus Magnesium Iron TIBC Ferritin Direct Bilirubin AST Total Creatine Kinase Troponin T Total Protein Albumin Prealbumin LDL Cholesterol Direct HDL Cholesterol Vitamin B12 TSH PTH Intact Urine Creatinine Urine Total Protein Vancomycin Trough Digoxin Salicylates Acetaminophen Crossmatch 03/21/19 03/21/19 03/21/19 04:12 04:12 04:43 WBC RBC 2.84 L Hgb 9.5 L Hct 28.3 L MCV 100 H MCH 33 H MCHC RDW Plt Count 79 L Lymph % (Auto) [place] % (Auto) Eos % (Auto) Lymph # [place] # Eos # Seg Neutrophils % Seg Neuts % (Manual) Lymphocytes % (Manual) Monocytes % (Manual) Eosinophils % (Manual) Nucleated RBC % Seg Neutrophils # Seg Neutrophils # Man Lymphocytes # (Manual) Monocytes # (Manual) Eosinophils # (Manual) PT INR APTT POC ABG pH 7.456 H POC ABG pCO2 POC ABG pO2 Sodium Potassium Chloride Carbon Dioxide BUN Creatinine Glucose POC Glucose Lactic Acid 9.50 H* Calcium Phosphorus Magnesium Iron TIBC Ferritin Direct Bilirubin AST Total Creatine Kinase Troponin T Total Protein Albumin Prealbumin LDL Cholesterol Direct HDL Cholesterol Vitamin B12 TSH PTH Intact Urine Creatinine Urine Total Protein Vancomycin Trough Digoxin Salicylates Acetaminophen Crossmatch 03/21/19 03/21/19 03/21/19 08:06 08:08 10:11 WBC RBC Hgb Hct MCV MCH MCHC RDW Plt Count Lymph % (Auto) [place] % (Auto) Eos % (Auto) Lymph # [place] # Eos # Seg Neutrophils % Seg Neuts % (Manual) Lymphocytes % (Manual) Monocytes % (Manual) Eosinophils % (Manual) Nucleated RBC % Seg Neutrophils # Seg Neutrophils # Man Lymphocytes # (Manual) Monocytes # (Manual) Eosinophils # (Manual) PT INR APTT POC ABG pH POC ABG pCO2 POC ABG pO2 Sodium Potassium 3.5 L Chloride Carbon Dioxide BUN 22 H Creatinine 1.3 H Glucose POC Glucose 64 L Lactic Acid 8.00 H* Calcium 7.0 L Phosphorus Magnesium Iron TIBC Ferritin Direct Bilirubin AST Total Creatine Kinase Troponin T Total Protein Albumin Prealbumin LDL Cholesterol Direct HDL Cholesterol Vitamin B12 TSH PTH Intact Urine Creatinine Urine Total Protein Vancomycin Trough Digoxin Salicylates Acetaminophen Crossmatch 03/21/19 03/21/19 03/21/19 11:17 12:17 13:37 WBC RBC Hgb Hct MCV MCH MCHC RDW Plt Count Lymph % (Auto) [place] % (Auto) Eos % (Auto) Lymph # [place] # Eos # Seg Neutrophils % Seg Neuts % (Manual) Lymphocytes % (Manual) Monocytes % (Manual) Eosinophils % (Manual) Nucleated RBC % Seg Neutrophils # Seg Neutrophils # Man Lymphocytes # (Manual) Monocytes # (Manual) Eosinophils # (Manual) PT INR APTT POC ABG pH POC ABG pCO2 POC ABG pO2 Sodium Potassium Chloride Carbon Dioxide BUN Creatinine Glucose POC Glucose 173 H 110 H Lactic Acid Calcium Phosphorus Magnesium Iron TIBC Ferritin Direct Bilirubin AST Total Creatine Kinase Troponin T 0.033 H D Total Protein Albumin Prealbumin LDL Cholesterol Direct HDL Cholesterol Vitamin B12 TSH PTH Intact Urine Creatinine Urine Total Protein Vancomycin Trough Digoxin Salicylates Acetaminophen Crossmatch 03/21/19 03/21/19 03/21/19 13:37 17:21 18:52 WBC RBC Hgb Hct MCV MCH MCHC RDW Plt Count Lymph % (Auto) [place] % (Auto) Eos % (Auto) Lymph # [place] # Eos # Seg Neutrophils % Seg Neuts % (Manual) Lymphocytes % (Manual) Monocytes % (Manual) Eosinophils % (Manual) Nucleated RBC % Seg Neutrophils # Seg Neutrophils # Man Lymphocytes # (Manual) Monocytes # (Manual) Eosinophils # (Manual) PT INR APTT POC ABG pH POC ABG pCO2 POC ABG pO2 Sodium Potassium Chloride Carbon Dioxide BUN Creatinine Glucose POC Glucose 130 H 107 H Lactic Acid 6.80 H* Calcium Phosphorus Magnesium Iron TIBC Ferritin Direct Bilirubin AST Total Creatine Kinase Troponin T Total Protein Albumin Prealbumin LDL Cholesterol Direct HDL Cholesterol Vitamin B12 TSH PTH Intact Urine Creatinine Urine Total Protein Vancomycin Trough Digoxin Salicylates Acetaminophen Crossmatch 03/21/19 03/21/19 03/21/19 20:20 22:08 23:05 WBC RBC Hgb Hct MCV MCH MCHC RDW Plt Count Lymph % (Auto) [place] % (Auto) Eos % (Auto) Lymph # [place] # Eos # Seg Neutrophils % Seg Neuts % (Manual) Lymphocytes % (Manual) Monocytes % (Manual) Eosinophils % (Manual) Nucleated RBC % Seg Neutrophils # Seg Neutrophils # Man Lymphocytes # (Manual) Monocytes # (Manual) Eosinophils # (Manual) PT INR APTT POC ABG pH POC ABG pCO2 POC ABG pO2 Sodium Potassium Chloride Carbon Dioxide BUN Creatinine Glucose POC Glucose 106 H 106 H Lactic Acid Calcium Phosphorus Magnesium Iron TIBC Ferritin Direct Bilirubin AST Total Creatine Kinase Troponin T 0.036 H Total Protein Albumin Prealbumin LDL Cholesterol Direct HDL Cholesterol Vitamin B12 TSH PTH Intact Urine Creatinine Urine Total Protein Vancomycin Trough Digoxin Salicylates Acetaminophen Crossmatch 03/21/19 03/21/19 03/22/19 23:05 23:05 00:14 WBC RBC Hgb Hct MCV MCH MCHC RDW Plt Count Lymph % (Auto) [place] % (Auto) Eos % (Auto) Lymph # [place] # Eos # Seg Neutrophils % Seg Neuts % (Manual) Lymphocytes % (Manual) Monocytes % (Manual) Eosinophils % (Manual) Nucleated RBC % Seg Neutrophils # Seg Neutrophils # Man Lymphocytes # (Manual) Monocytes # (Manual) Eosinophils # (Manual) PT INR APTT POC ABG pH POC ABG pCO2 POC ABG pO2 Sodium Potassium Chloride Carbon Dioxide BUN Creatinine Glucose POC Glucose 122 H 109 H Lactic Acid 7.00 H* Calcium Phosphorus Magnesium Iron TIBC Ferritin Direct Bilirubin AST Total Creatine Kinase Troponin T Total Protein Albumin Prealbumin LDL Cholesterol Direct HDL Cholesterol Vitamin B12 TSH PTH Intact Urine Creatinine Urine Total Protein Vancomycin Trough Digoxin Salicylates Acetaminophen Crossmatch 03/22/19 03/22/19 03/22/19 03:10 04:02 05:11 WBC RBC Hgb Hct MCV MCH MCHC RDW Plt Count Lymph % (Auto) [place] % (Auto) Eos % (Auto) Lymph # [place] # Eos # Seg Neutrophils % Seg Neuts % (Manual) Lymphocytes % (Manual) Monocytes % (Manual) Eosinophils % (Manual) Nucleated RBC % Seg Neutrophils # Seg Neutrophils # Man Lymphocytes # (Manual) Monocytes # (Manual) Eosinophils # (Manual) PT INR APTT POC ABG pH 7.487 H POC ABG pCO2 POC ABG pO2 67 L Sodium Potassium Chloride Carbon Dioxide BUN Creatinine Glucose POC Glucose 114 H 112 H Lactic Acid Calcium Phosphorus Magnesium Iron TIBC Ferritin Direct Bilirubin AST Total Creatine Kinase Troponin T Total Protein Albumin Prealbumin LDL Cholesterol Direct HDL Cholesterol Vitamin B12 TSH PTH Intact Urine Creatinine Urine Total Protein Vancomycin Trough Digoxin Salicylates Acetaminophen Crossmatch 03/22/19 03/22/19 03/22/19 06:06 06:10 06:10 WBC RBC Hgb Hct MCV MCH MCHC RDW Plt Count Lymph % (Auto) [place] % (Auto) Eos % (Auto) Lymph # [place] # Eos # Seg Neutrophils % Seg Neuts % (Manual) Lymphocytes % (Manual) Monocytes % (Manual) Eosinophils % (Manual) Nucleated RBC % Seg Neutrophils # Seg Neutrophils # Man Lymphocytes # (Manual) Monocytes # (Manual) Eosinophils # (Manual) PT INR APTT POC ABG pH POC ABG pCO2 POC ABG pO2 Sodium Potassium 3.0 L Chloride Carbon Dioxide BUN Creatinine Glucose POC Glucose 115 H Lactic Acid Calcium 7.0 L Phosphorus Magnesium Iron TIBC Ferritin Direct Bilirubin AST Total Creatine Kinase Troponin T 0.036 H Total Protein Albumin Prealbumin LDL Cholesterol Direct HDL Cholesterol Vitamin B12 TSH PTH Intact Urine Creatinine Urine Total Protein Vancomycin Trough Digoxin Salicylates Acetaminophen Crossmatch 03/22/19 03/22/19 03/22/19 06:10 06:10 11:59 WBC RBC Hgb Hct MCV MCH MCHC RDW Plt Count Lymph % (Auto) [place] % (Auto) Eos % (Auto) Lymph # [place] # Eos # Seg Neutrophils % Seg Neuts % (Manual) Lymphocytes % (Manual) Monocytes % (Manual) Eosinophils % (Manual) Nucleated RBC % Seg Neutrophils # Seg Neutrophils # Man Lymphocytes # (Manual) Monocytes # (Manual) Eosinophils # (Manual) PT INR APTT POC ABG pH POC ABG pCO2 POC ABG pO2 Sodium Potassium Chloride Carbon Dioxide BUN Creatinine Glucose POC Glucose Lactic Acid 4.80 H* 3.80 H* Calcium Phosphorus Magnesium Iron TIBC Ferritin Direct Bilirubin AST Total Creatine Kinase Troponin T Total Protein Albumin Prealbumin LDL Cholesterol Direct HDL Cholesterol Vitamin B12 TSH 7.810 H PTH Intact Urine Creatinine Urine Total Protein Vancomycin Trough Digoxin Salicylates Acetaminophen Crossmatch 03/22/19 03/22/19 03/22/19 13:45 13:45 13:45 WBC RBC Hgb 8.3 L Hct 24.5 L MCV MCH MCHC RDW Plt Count 56 L Lymph % (Auto) [place] % (Auto) Eos % (Auto) Lymph # [place] # Eos # Seg Neutrophils % Seg Neuts % (Manual) Lymphocytes % (Manual) Monocytes % (Manual) Eosinophils % (Manual) Nucleated RBC % Seg Neutrophils # Seg Neutrophils # Man Lymphocytes # (Manual) Monocytes # (Manual) Eosinophils # (Manual) PT 21.4 H INR 1.90 H APTT 43.2 H POC ABG pH POC ABG pCO2 POC ABG pO2 Sodium Potassium Chloride Carbon Dioxide BUN Creatinine Glucose POC Glucose Lactic Acid 3.50 H* Calcium Phosphorus Magnesium Iron TIBC Ferritin Direct Bilirubin AST Total Creatine Kinase Troponin T Total Protein Albumin Prealbumin LDL Cholesterol Direct HDL Cholesterol Vitamin B12 TSH PTH Intact Urine Creatinine Urine Total Protein Vancomycin Trough Digoxin Salicylates Acetaminophen Crossmatch 03/22/19 03/23/19 03/23/19 22:20 01:06 04:50 WBC 12.1 H RBC 2.36 L Hgb 7.7 L Hct 22.9 L MCV MCH 33 H MCHC RDW Plt Count 37 L Lymph % (Auto) [place] % (Auto) Eos % (Auto) Lymph # [place] # Eos # Seg Neutrophils % Seg Neuts % (Manual) 83.0 H Lymphocytes % (Manual) 8.0 L Monocytes % (Manual) Eosinophils % (Manual) Nucleated RBC % Seg Neutrophils # Seg Neutrophils # Man 10.0 H Lymphocytes # (Manual) 1.0 L Monocytes # (Manual) Eosinophils # (Manual) PT INR APTT POC ABG pH POC ABG pCO2 POC ABG pO2 Sodium Potassium Chloride Carbon Dioxide BUN Creatinine Glucose POC Glucose Lactic Acid 3.60 H* 2.70 H* Calcium Phosphorus Magnesium Iron TIBC Ferritin Direct Bilirubin AST Total Creatine Kinase Troponin T Total Protein Albumin Prealbumin LDL Cholesterol Direct HDL Cholesterol Vitamin B12 TSH PTH Intact Urine Creatinine Urine Total Protein Vancomycin Trough Digoxin Salicylates Acetaminophen Crossmatch 03/23/19 03/23/19 03/23/19 04:50 05:25 05:53 WBC RBC Hgb Hct MCV MCH MCHC RDW Plt Count Lymph % (Auto) [place] % (Auto) Eos % (Auto) Lymph # [place] # Eos # Seg Neutrophils % Seg Neuts % (Manual) Lymphocytes % (Manual) Monocytes % (Manual) Eosinophils % (Manual) Nucleated RBC % Seg Neutrophils # Seg Neutrophils # Man Lymphocytes # (Manual) Monocytes # (Manual) Eosinophils # (Manual) PT INR APTT POC ABG pH POC ABG pCO2 33.3 L POC ABG pO2 Sodium Potassium 3.5 L Chloride 108.3 H Carbon Dioxide BUN Creatinine Glucose POC Glucose 68 L Lactic Acid Calcium 7.3 L Phosphorus Magnesium Iron TIBC Ferritin Direct Bilirubin AST Total Creatine Kinase Troponin T Total Protein Albumin Prealbumin LDL Cholesterol Direct HDL Cholesterol Vitamin B12 TSH PTH Intact Urine Creatinine Urine Total Protein Vancomycin Trough Digoxin Salicylates Acetaminophen Crossmatch 03/24/19 03/24/19 03/24/19 03:26 05:50 05:57 WBC RBC Hgb Hct MCV MCH MCHC RDW Plt Count Lymph % (Auto) [place] % (Auto) Eos % (Auto) Lymph # [place] # Eos # Seg Neutrophils % Seg Neuts % (Manual) Lymphocytes % (Manual) Monocytes % (Manual) Eosinophils % (Manual) Nucleated RBC % Seg Neutrophils # Seg Neutrophils # Man Lymphocytes # (Manual) Monocytes # (Manual) Eosinophils # (Manual) PT INR APTT POC ABG pH POC ABG pCO2 POC ABG pO2 78 L Sodium Potassium 3.4 L Chloride 116.5 H Carbon Dioxide 21 L BUN Creatinine 0.5 L Glucose 105 H POC Glucose 127 H Lactic Acid Calcium 6.4 L Phosphorus Magnesium Iron TIBC Ferritin Direct Bilirubin AST Total Creatine Kinase Troponin T Total Protein Albumin Prealbumin LDL Cholesterol Direct HDL Cholesterol Vitamin B12 TSH PTH Intact Urine Creatinine Urine Total Protein Vancomycin Trough Digoxin Salicylates Acetaminophen Crossmatch 03/24/19 03/24/19 03/24/19 06:00 11:30 12:25 WBC 13.6 H RBC 2.08 L Hgb 6.9 L Hct 20.5 L MCV 99 H MCH 33 H MCHC RDW Plt Count 50 L Lymph % (Auto) 8.1 L [place] % (Auto) 10.0 H Eos % (Auto) Lymph # 1.1 L [place] # 1.4 H Eos # Seg Neutrophils % 80.7 H Seg Neuts % (Manual) Lymphocytes % (Manual) Monocytes % (Manual) Eosinophils % (Manual) Nucleated RBC % Seg Neutrophils # 11.0 H Seg Neutrophils # Man Lymphocytes # (Manual) Monocytes # (Manual) Eosinophils # (Manual) PT INR APTT POC ABG pH POC ABG pCO2 POC ABG pO2 Sodium Potassium Chloride Carbon Dioxide BUN Creatinine Glucose POC Glucose 111 H Lactic Acid Calcium Phosphorus Magnesium Iron TIBC Ferritin Direct Bilirubin AST Total Creatine Kinase Troponin T Total Protein Albumin Prealbumin LDL Cholesterol Direct HDL Cholesterol Vitamin B12 TSH PTH Intact Urine Creatinine Urine Total Protein Vancomycin Trough Digoxin Salicylates Acetaminophen Crossmatch See Detail 03/24/19 03/25/19 03/25/19 14:25 05:20 10:00 WBC 13.4 H RBC 2.54 L Hgb 8.1 L Hct 24.3 L MCV MCH MCHC RDW 17.3 H Plt Count 44 L Lymph % (Auto) [place] % (Auto) Eos % (Auto) Lymph # [place] # Eos # Seg Neutrophils % Seg Neuts % (Manual) Lymphocytes % (Manual) Monocytes % (Manual) Eosinophils % (Manual) Nucleated RBC % Seg Neutrophils # Seg Neutrophils # Man Lymphocytes # (Manual) Monocytes # (Manual) Eosinophils # (Manual) PT INR APTT POC ABG pH POC ABG pCO2 POC ABG pO2 Sodium Potassium Chloride Carbon Dioxide BUN Creatinine Glucose POC Glucose 111 H Lactic Acid Calcium Phosphorus Magnesium Iron 32 L TIBC 75 L Ferritin Direct Bilirubin AST Total Creatine Kinase Troponin T Total Protein Albumin Prealbumin LDL Cholesterol Direct HDL Cholesterol Vitamin B12 TSH PTH Intact Urine Creatinine Urine Total Protein Vancomycin Trough Digoxin Salicylates Acetaminophen Crossmatch 03/25/19 03/25/19 03/25/19 10:11 10:11 23:11 WBC RBC Hgb Hct MCV MCH MCHC RDW Plt Count Lymph % (Auto) [place] % (Auto) Eos % (Auto) Lymph # [place] # Eos # Seg Neutrophils % Seg Neuts % (Manual) Lymphocytes % (Manual) Monocytes % (Manual) Eosinophils % (Manual) Nucleated RBC % Seg Neutrophils # Seg Neutrophils # Man Lymphocytes # (Manual) Monocytes # (Manual) Eosinophils # (Manual) PT INR APTT POC ABG pH POC ABG pCO2 POC ABG pO2 Sodium Potassium Chloride 112.0 H Carbon Dioxide BUN 20 H Creatinine 0.6 L Glucose POC Glucose 112 H Lactic Acid Calcium 7.2 L Phosphorus Magnesium Iron TIBC Ferritin Direct Bilirubin AST Total Creatine Kinase Troponin T Total Protein Albumin Prealbumin LDL Cholesterol Direct HDL Cholesterol Vitamin B12 > 2000 H TSH PTH Intact Urine Creatinine Urine Total Protein Vancomycin Trough Digoxin Salicylates Acetaminophen Crossmatch 03/26/19 03/26/19 03/26/19 05:00 05:00 05:16 WBC 14.4 H RBC 2.74 L Hgb 8.9 L Hct 25.7 L MCV MCH 33 H MCHC 35 H RDW 16.9 H Plt Count 60 L Lymph % (Auto) [place] % (Auto) Eos % (Auto) Lymph # [place] # Eos # Seg Neutrophils % Seg Neuts % (Manual) 83.0 H Lymphocytes % (Manual) 5.0 L Monocytes % (Manual) Eosinophils % (Manual) 5.0 H Nucleated RBC % 1.0 H Seg Neutrophils # Seg Neutrophils # Man 12.0 H Lymphocytes # (Manual) 0.7 L Monocytes # (Manual) 0.9 H Eosinophils # (Manual) 0.7 H PT INR APTT POC ABG pH POC ABG pCO2 POC ABG pO2 Sodium Potassium 3.1 L Chloride 110.4 H Carbon Dioxide BUN 22 H Creatinine Glucose 101 H POC Glucose 114 H Lactic Acid Calcium 7.4 L Phosphorus Magnesium Iron TIBC Ferritin Direct Bilirubin AST Total Creatine Kinase Troponin T Total Protein Albumin Prealbumin LDL Cholesterol Direct HDL Cholesterol Vitamin B12 TSH PTH Intact Urine Creatinine Urine Total Protein Vancomycin Trough Digoxin Salicylates Acetaminophen Crossmatch 03/26/19 03/27/19 03/27/19 11:55 09:04 09:04 WBC RBC Hgb Hct MCV MCH MCHC RDW Plt Count Lymph % (Auto) [place] % (Auto) Eos % (Auto) Lymph # [place] # Eos # Seg Neutrophils % Seg Neuts % (Manual) Lymphocytes % (Manual) Monocytes % (Manual) Eosinophils % (Manual) Nucleated RBC % Seg Neutrophils # Seg Neutrophils # Man Lymphocytes # (Manual) Monocytes # (Manual) Eosinophils # (Manual) PT INR APTT POC ABG pH POC ABG pCO2 POC ABG pO2 Sodium Potassium 3.2 L Chloride Carbon Dioxide BUN 22 H Creatinine Glucose POC Glucose 121 H Lactic Acid Calcium 7.7 L Phosphorus Magnesium Iron TIBC Ferritin Direct Bilirubin AST Total Creatine Kinase Troponin T Total Protein Albumin Prealbumin LDL Cholesterol Direct HDL Cholesterol Vitamin B12 TSH PTH Intact Urine Creatinine Urine Total Protein Vancomycin Trough 23.0 H Digoxin Salicylates Acetaminophen Crossmatch 03/27/19 03/27/19 03/27/19 09:04 13:31 14:04 WBC 14.8 H RBC 2.52 L Hgb 8.0 L 8.3 L Hct 24.0 L 25.3 L MCV MCH MCHC RDW 17.0 H Plt Count 89 L 91 L Lymph % (Auto) [place] % (Auto) 8.8 H Eos % (Auto) Lymph # [place] # 1.3 H Eos # Seg Neutrophils % 70.7 H Seg Neuts % (Manual) Lymphocytes % (Manual) Monocytes % (Manual) Eosinophils % (Manual) Nucleated RBC % Seg Neutrophils # 10.5 H Seg Neutrophils # Man Lymphocytes # (Manual) Monocytes # (Manual) Eosinophils # (Manual) PT INR APTT POC ABG pH POC ABG pCO2 POC ABG pO2 Sodium Potassium Chloride Carbon Dioxide BUN Creatinine Glucose POC Glucose Lactic Acid Calcium Phosphorus Magnesium Iron TIBC Ferritin Direct Bilirubin 0.3 H AST Total Creatine Kinase Troponin T Total Protein 4.9 L Albumin 1.3 L Prealbumin LDL Cholesterol Direct HDL Cholesterol Vitamin B12 TSH PTH Intact Urine Creatinine Urine Total Protein Vancomycin Trough Digoxin Salicylates Acetaminophen Crossmatch 03/27/19 03/27/19 03/28/19 14:04 23:51 01:05 WBC 14.4 H RBC 2.44 L Hgb 8.0 L Hct 24.5 L MCV 100 H MCH 33 H MCHC RDW 18.5 H Plt Count 86 L Lymph % (Auto) [place] % (Auto) Eos % (Auto) Lymph # [place] # Eos # Seg Neutrophils % Seg Neuts % (Manual) 84.0 H Lymphocytes % (Manual) 10.0 L Monocytes % (Manual) Eosinophils % (Manual) Nucleated RBC % Seg Neutrophils # Seg Neutrophils # Man 12.1 H Lymphocytes # (Manual) Monocytes # (Manual) Eosinophils # (Manual) PT 21.4 H INR 1.90 H APTT 42.2 H POC ABG pH POC ABG pCO2 POC ABG pO2 Sodium Potassium Chloride Carbon Dioxide BUN Creatinine Glucose POC Glucose 130 H Lactic Acid Calcium Phosphorus Magnesium Iron TIBC Ferritin Direct Bilirubin AST Total Creatine Kinase Troponin T Total Protein Albumin Prealbumin LDL Cholesterol Direct HDL Cholesterol Vitamin B12 TSH PTH Intact Urine Creatinine Urine Total Protein Vancomycin Trough Digoxin Salicylates Acetaminophen Crossmatch 03/28/19 03/28/19 03/28/19 02:51 04:45 07:31 WBC RBC Hgb Hct MCV MCH MCHC RDW Plt Count Lymph % (Auto) [place] % (Auto) Eos % (Auto) Lymph # [place] # Eos # Seg Neutrophils % Seg Neuts % (Manual) Lymphocytes % (Manual) Monocytes % (Manual) Eosinophils % (Manual) Nucleated RBC % Seg Neutrophils # Seg Neutrophils # Man Lymphocytes # (Manual) Monocytes # (Manual) Eosinophils # (Manual) PT INR APTT 75.0 H* POC ABG pH POC ABG pCO2 POC ABG pO2 Sodium Potassium Chloride Carbon Dioxide BUN 22 H Creatinine Glucose POC Glucose Lactic Acid Calcium 7.8 L Phosphorus Magnesium Iron TIBC Ferritin 448.3 H Direct Bilirubin AST Total Creatine Kinase Troponin T Total Protein Albumin Prealbumin LDL Cholesterol Direct HDL Cholesterol Vitamin B12 TSH PTH Intact Urine Creatinine Urine Total Protein Vancomycin Trough Digoxin Salicylates Acetaminophen Crossmatch 03/28/19 03/29/19 03/29/19 14:30 04:40 04:40 WBC RBC 2.17 L Hgb 7.1 L Hct 20.8 L MCV MCH 33 H MCHC RDW 17.1 H Plt Count 122 L Lymph % (Auto) [place] % (Auto) Eos % (Auto) Lymph # [place] # Eos # Seg Neutrophils % Seg Neuts % (Manual) Lymphocytes % (Manual) Monocytes % (Manual) Eosinophils % (Manual) Nucleated RBC % Seg Neutrophils # Seg Neutrophils # Man Lymphocytes # (Manual) Monocytes # (Manual) Eosinophils # (Manual) PT INR APTT 70.3 H* POC ABG pH POC ABG pCO2 POC ABG pO2 Sodium Potassium Chloride Carbon Dioxide 31 H BUN 22 H Creatinine 0.5 L Glucose POC Glucose Lactic Acid Calcium 8.0 L Phosphorus Magnesium Iron TIBC Ferritin Direct Bilirubin AST Total Creatine Kinase Troponin T Total Protein 5.0 L Albumin 1.4 L Prealbumin LDL Cholesterol Direct HDL Cholesterol Vitamin B12 TSH PTH Intact Urine Creatinine Urine Total Protein Vancomycin Trough Digoxin Salicylates Acetaminophen Crossmatch 03/29/19 03/29/19 03/29/19 04:40 04:40 11:50 WBC RBC Hgb Hct MCV MCH MCHC RDW Plt Count Lymph % (Auto) [place] % (Auto) Eos % (Auto) Lymph # [place] # Eos # Seg Neutrophils % Seg Neuts % (Manual) Lymphocytes % (Manual) Monocytes % (Manual) Eosinophils % (Manual) Nucleated RBC % Seg Neutrophils # Seg Neutrophils # Man Lymphocytes # (Manual) Monocytes # (Manual) Eosinophils # (Manual) PT INR APTT 71.8 H* POC ABG pH POC ABG pCO2 POC ABG pO2 Sodium Potassium Chloride Carbon Dioxide BUN Creatinine Glucose POC Glucose 118 H Lactic Acid Calcium Phosphorus Magnesium Iron TIBC Ferritin Direct Bilirubin AST Total Creatine Kinase Troponin T Total Protein Albumin Prealbumin LDL Cholesterol Direct HDL Cholesterol Vitamin B12 TSH PTH Intact Urine Creatinine Urine Total Protein Vancomycin Trough Digoxin 3.5 H* Salicylates Acetaminophen Crossmatch 03/29/19 03/29/19 03/29/19 16:20 16:20 21:10 WBC RBC Hgb Hct MCV MCH MCHC RDW Plt Count Lymph % (Auto) [place] % (Auto) Eos % (Auto) Lymph # [place] # Eos # Seg Neutrophils % Seg Neuts % (Manual) Lymphocytes % (Manual) Monocytes % (Manual) Eosinophils % (Manual) Nucleated RBC % Seg Neutrophils # Seg Neutrophils # Man Lymphocytes # (Manual) Monocytes # (Manual) Eosinophils # (Manual) PT INR APTT 61.5 H* 112.6 H* POC ABG pH POC ABG pCO2 POC ABG pO2 Sodium Potassium Chloride Carbon Dioxide BUN Creatinine Glucose POC Glucose Lactic Acid Calcium Phosphorus Magnesium Iron TIBC Ferritin Direct Bilirubin AST Total Creatine Kinase Troponin T Total Protein Albumin Prealbumin LDL Cholesterol Direct HDL Cholesterol Vitamin B12 TSH PTH Intact Urine Creatinine Urine Total Protein Vancomycin Trough Digoxin 2.6 H* Salicylates Acetaminophen Crossmatch 03/29/19 03/30/19 03/30/19 22:30 04:42 04:42 WBC RBC Hgb 6.4 L Hct 18.9 L* MCV MCH MCHC RDW Plt Count Lymph % (Auto) [place] % (Auto) Eos % (Auto) Lymph # [place] # Eos # Seg Neutrophils % Seg Neuts % (Manual) Lymphocytes % (Manual) Monocytes % (Manual) Eosinophils % (Manual) Nucleated RBC % Seg Neutrophils # Seg Neutrophils # Man Lymphocytes # (Manual) Monocytes # (Manual) Eosinophils # (Manual) PT INR APTT 103.8 H* POC ABG pH POC ABG pCO2 POC ABG pO2 Sodium Potassium Chloride Carbon Dioxide BUN Creatinine Glucose POC Glucose Lactic Acid Calcium Phosphorus Magnesium Iron TIBC Ferritin Direct Bilirubin AST Total Creatine Kinase Troponin T Total Protein Albumin Prealbumin LDL Cholesterol Direct HDL Cholesterol Vitamin B12 TSH PTH Intact Urine Creatinine Urine Total Protein Vancomycin Trough Digoxin 2.6 H* Salicylates Acetaminophen Crossmatch 03/30/19 03/30/19 03/30/19 07:04 07:58 11:15 WBC RBC 2.66 L Hgb 8.5 L Hct 25.3 L D MCV MCH MCHC RDW 17.4 H Plt Count Lymph % (Auto) [place] % (Auto) Eos % (Auto) Lymph # [place] # Eos # Seg Neutrophils % Seg Neuts % (Manual) Lymphocytes % (Manual) Monocytes % (Manual) Eosinophils % (Manual) Nucleated RBC % Seg Neutrophils # Seg Neutrophils # Man Lymphocytes # (Manual) Monocytes # (Manual) Eosinophils # (Manual) PT INR APTT 50.5 H POC ABG pH POC ABG pCO2 POC ABG pO2 Sodium Potassium Chloride Carbon Dioxide BUN Creatinine Glucose POC Glucose Lactic Acid Calcium Phosphorus Magnesium Iron TIBC Ferritin Direct Bilirubin AST Total Creatine Kinase Troponin T Total Protein Albumin Prealbumin LDL Cholesterol Direct HDL Cholesterol Vitamin B12 TSH PTH Intact Urine Creatinine Urine Total Protein Vancomycin Trough Digoxin Salicylates Acetaminophen Crossmatch See Detail 03/30/19 03/30/19 03/30/19 11:36 17:40 22:51 WBC RBC 2.48 L Hgb 7.9 L Hct 23.9 L MCV MCH MCHC RDW 17.7 H Plt Count Lymph % (Auto) [place] % (Auto) Eos % (Auto) Lymph # [place] # Eos # Seg Neutrophils % Seg Neuts % (Manual) Lymphocytes % (Manual) Monocytes % (Manual) Eosinophils % (Manual) Nucleated RBC % Seg Neutrophils # Seg Neutrophils # Man Lymphocytes # (Manual) Monocytes # (Manual) Eosinophils # (Manual) PT INR APTT POC ABG pH POC ABG pCO2 POC ABG pO2 Sodium Potassium Chloride Carbon Dioxide BUN Creatinine Glucose POC Glucose 129 H 112 H Lactic Acid Calcium Phosphorus Magnesium Iron TIBC Ferritin Direct Bilirubin AST Total Creatine Kinase Troponin T Total Protein Albumin Prealbumin LDL Cholesterol Direct HDL Cholesterol Vitamin B12 TSH PTH Intact Urine Creatinine Urine Total Protein Vancomycin Trough Digoxin Salicylates Acetaminophen Crossmatch 03/30/19 03/31/19 03/31/19 23:47 05:00 11:35 WBC RBC Hgb 8.0 L Hct 23.7 L MCV MCH MCHC RDW Plt Count Lymph % (Auto) [place] % (Auto) Eos % (Auto) Lymph # [place] # Eos # Seg Neutrophils % Seg Neuts % (Manual) Lymphocytes % (Manual) Monocytes % (Manual) Eosinophils % (Manual) Nucleated RBC % Seg Neutrophils # Seg Neutrophils # Man Lymphocytes # (Manual) Monocytes # (Manual) Eosinophils # (Manual) PT INR APTT POC ABG pH POC ABG pCO2 POC ABG pO2 Sodium Potassium Chloride Carbon Dioxide BUN Creatinine Glucose POC Glucose 112 H 106 H Lactic Acid Calcium Phosphorus Magnesium Iron TIBC Ferritin Direct Bilirubin AST Total Creatine Kinase Troponin T Total Protein Albumin Prealbumin LDL Cholesterol Direct HDL Cholesterol Vitamin B12 TSH PTH Intact Urine Creatinine Urine Total Protein Vancomycin Trough Digoxin Salicylates Acetaminophen Crossmatch 04/01/19 04/02/19 04/03/19 11:38 08:33 06:15 WBC RBC 2.11 L Hgb 7.8 L 6.8 L Hct 23.1 L 20.5 L MCV 98 H MCH MCHC RDW 17.6 H Plt Count Lymph % (Auto) [place] % (Auto) 12.1 H Eos % (Auto) 7.4 H Lymph # [place] # Eos # Seg Neutrophils % Seg Neuts % (Manual) Lymphocytes % (Manual) Monocytes % (Manual) Eosinophils % (Manual) Nucleated RBC % Seg Neutrophils # Seg Neutrophils # Man Lymphocytes # (Manual) Monocytes # (Manual) Eosinophils # (Manual) PT INR APTT POC ABG pH POC ABG pCO2 POC ABG pO2 Sodium Potassium Chloride Carbon Dioxide BUN Creatinine Glucose POC Glucose 136 H Lactic Acid Calcium Phosphorus Magnesium Iron TIBC Ferritin Direct Bilirubin AST Total Creatine Kinase Troponin T Total Protein Albumin Prealbumin LDL Cholesterol Direct HDL Cholesterol Vitamin B12 TSH PTH Intact Urine Creatinine Urine Total Protein Vancomycin Trough Digoxin Salicylates Acetaminophen Crossmatch 04/03/19 04/04/19 04/04/19 08:22 05:20 05:20 WBC RBC 2.27 L Hgb 7.3 L 7.3 L Hct 21.9 L 22.0 L MCV MCH MCHC RDW 16.8 H Plt Count Lymph % (Auto) [place] % (Auto) 12.2 H Eos % (Auto) 6.6 H Lymph # [place] # 1.0 H Eos # 0.5 H Seg Neutrophils % Seg Neuts % (Manual) Lymphocytes % (Manual) Monocytes % (Manual) Eosinophils % (Manual) Nucleated RBC % Seg Neutrophils # Seg Neutrophils # Man Lymphocytes # (Manual) Monocytes # (Manual) Eosinophils # (Manual) PT INR APTT POC ABG pH POC ABG pCO2 POC ABG pO2 Sodium Potassium Chloride Carbon Dioxide BUN Creatinine 0.4 L Glucose POC Glucose Lactic Acid Calcium 7.9 L Phosphorus 2.20 L Magnesium 1.40 L Iron TIBC Ferritin Direct Bilirubin AST Total Creatine Kinase Troponin T Total Protein Albumin Prealbumin LDL Cholesterol Direct HDL Cholesterol Vitamin B12 TSH PTH Intact Urine Creatinine Urine Total Protein Vancomycin Trough Digoxin Salicylates Acetaminophen Crossmatch 04/05/19 04/05/19 04/05/19 03:30 03:30 06:51 WBC RBC 2.09 L Hgb 6.7 L Hct 20.1 L MCV MCH MCHC RDW 16.6 H Plt Count Lymph % (Auto) [place] % (Auto) 12.6 H Eos % (Auto) 6.2 H Lymph # [place] # 1.0 H Eos # 0.5 H Seg Neutrophils % Seg Neuts % (Manual) Lymphocytes % (Manual) Monocytes % (Manual) Eosinophils % (Manual) Nucleated RBC % Seg Neutrophils # Seg Neutrophils # Man Lymphocytes # (Manual) Monocytes # (Manual) Eosinophils # (Manual) PT INR APTT POC ABG pH POC ABG pCO2 POC ABG pO2 Sodium Potassium Chloride Carbon Dioxide BUN Creatinine 0.4 L Glucose POC Glucose Lactic Acid Calcium 7.6 L Phosphorus Magnesium Iron TIBC Ferritin Direct Bilirubin AST Total Creatine Kinase Troponin T Total Protein Albumin Prealbumin LDL Cholesterol Direct HDL Cholesterol Vitamin B12 TSH PTH Intact Urine Creatinine Urine Total Protein Vancomycin Trough Digoxin Salicylates Acetaminophen Crossmatch See Detail 04/05/19 04/05/19 04/06/19 13:07 23:50 09:36 WBC RBC 2.56 L Hgb 8.4 L Hct 23.5 L MCV MCH 33 H MCHC 36 H RDW 17.9 H Plt Count Lymph % (Auto) [place] % (Auto) Eos % (Auto) Lymph # [place] # Eos # Seg Neutrophils % Seg Neuts % (Manual) Lymphocytes % (Manual) Monocytes % (Manual) Eosinophils % (Manual) Nucleated RBC % Seg Neutrophils # Seg Neutrophils # Man Lymphocytes # (Manual) Monocytes # (Manual) Eosinophils # (Manual) PT INR APTT POC ABG pH POC ABG pCO2 POC ABG pO2 Sodium Potassium Chloride Carbon Dioxide BUN Creatinine Glucose POC Glucose 106 H 109 H Lactic Acid Calcium Phosphorus Magnesium Iron TIBC Ferritin Direct Bilirubin AST Total Creatine Kinase Troponin T Total Protein Albumin Prealbumin LDL Cholesterol Direct HDL Cholesterol Vitamin B12 TSH PTH Intact Urine Creatinine Urine Total Protein Vancomycin Trough Digoxin Salicylates Acetaminophen Crossmatch 04/07/19 04/07/19 04/07/19 06:50 06:50 11:37 WBC RBC Hgb 8.6 L Hct 25.6 L MCV MCH MCHC RDW Plt Count Lymph % (Auto) [place] % (Auto) Eos % (Auto) Lymph # [place] # Eos # Seg Neutrophils % Seg Neuts % (Manual) Lymphocytes % (Manual) Monocytes % (Manual) Eosinophils % (Manual) Nucleated RBC % Seg Neutrophils # Seg Neutrophils # Man Lymphocytes # (Manual) Monocytes # (Manual) Eosinophils # (Manual) PT INR APTT POC ABG pH POC ABG pCO2 POC ABG pO2 Sodium Potassium Chloride Carbon Dioxide BUN Creatinine 0.6 L Glucose POC Glucose 118 H Lactic Acid Calcium 8.1 L Phosphorus Magnesium Iron TIBC Ferritin Direct Bilirubin AST Total Creatine Kinase Troponin T Total Protein Albumin Prealbumin LDL Cholesterol Direct HDL Cholesterol Vitamin B12 TSH PTH Intact Urine Creatinine Urine Total Protein Vancomycin Trough Digoxin Salicylates Acetaminophen Crossmatch 04/07/19 04/08/19 04/09/19 18:29 05:46 09:15 WBC 11.3 H RBC 2.58 L Hgb 7.9 L Hct 24.4 L MCV MCH MCHC RDW 17.3 H Plt Count 455 H Lymph % (Auto) [place] % (Auto) Eos % (Auto) Lymph # [place] # Eos # Seg Neutrophils % Seg Neuts % (Manual) Lymphocytes % (Manual) Monocytes % (Manual) Eosinophils % (Manual) Nucleated RBC % Seg Neutrophils # Seg Neutrophils # Man Lymphocytes # (Manual) Monocytes # (Manual) Eosinophils # (Manual) PT INR APTT POC ABG pH POC ABG pCO2 POC ABG pO2 Sodium Potassium Chloride Carbon Dioxide BUN Creatinine Glucose POC Glucose 108 H 113 H Lactic Acid Calcium Phosphorus Magnesium Iron TIBC Ferritin Direct Bilirubin AST Total Creatine Kinase Troponin T Total Protein Albumin Prealbumin LDL Cholesterol Direct HDL Cholesterol Vitamin B12 TSH PTH Intact Urine Creatinine Urine Total Protein Vancomycin Trough Digoxin Salicylates Acetaminophen Crossmatch 04/09/19 04/09/19 04/09/19 12:14 17:56 23:41 WBC RBC Hgb Hct MCV MCH MCHC RDW Plt Count Lymph % (Auto) [place] % (Auto) Eos % (Auto) Lymph # [place] # Eos # Seg Neutrophils % Seg Neuts % (Manual) Lymphocytes % (Manual) Monocytes % (Manual) Eosinophils % (Manual) Nucleated RBC % Seg Neutrophils # Seg Neutrophils # Man Lymphocytes # (Manual) Monocytes # (Manual) Eosinophils # (Manual) PT INR APTT POC ABG pH POC ABG pCO2 POC ABG pO2 Sodium Potassium Chloride Carbon Dioxide BUN Creatinine Glucose POC Glucose 135 H 117 H 128 H Lactic Acid Calcium Phosphorus Magnesium Iron TIBC Ferritin Direct Bilirubin AST Total Creatine Kinase Troponin T Total Protein Albumin Prealbumin LDL Cholesterol Direct HDL Cholesterol Vitamin B12 TSH PTH Intact Urine Creatinine Urine Total Protein Vancomycin Trough Digoxin Salicylates Acetaminophen Crossmatch 04/10/19 04/10/19 04/10/19 05:10 05:10 05:29 WBC 12.5 H RBC 2.46 L Hgb 7.6 L Hct 23.0 L MCV MCH MCHC RDW 17.3 H Plt Count 446 H Lymph % (Auto) 12.8 L [place] % (Auto) 12.1 H Eos % (Auto) Lymph # [place] # 1.5 H Eos # Seg Neutrophils % 72.6 H Seg Neuts % (Manual) Lymphocytes % (Manual) Monocytes % (Manual) Eosinophils % (Manual) Nucleated RBC % Seg Neutrophils # 9.0 H Seg Neutrophils # Man Lymphocytes # (Manual) Monocytes # (Manual) Eosinophils # (Manual) PT INR APTT POC ABG pH POC ABG pCO2 POC ABG pO2 Sodium 136 L Potassium Chloride Carbon Dioxide BUN Creatinine 0.6 L Glucose POC Glucose 125 H Lactic Acid Calcium 7.6 L Phosphorus Magnesium Iron TIBC Ferritin Direct Bilirubin AST Total Creatine Kinase Troponin T Total Protein Albumin Prealbumin LDL Cholesterol Direct HDL Cholesterol Vitamin B12 TSH PTH Intact Urine Creatinine Urine Total Protein Vancomycin Trough Digoxin Salicylates Acetaminophen Crossmatch 04/10/19 04/10/19 04/11/19 18:31 23:41 04:25 WBC 18.5 H RBC 2.61 L Hgb 8.0 L Hct 24.3 L MCV MCH MCHC RDW 17.2 H Plt Count 490 H Lymph % (Auto) 9.8 L [place] % (Auto) 9.5 H Eos % (Auto) Lymph # [place] # 1.8 H Eos # Seg Neutrophils % 79.0 H Seg Neuts % (Manual) Lymphocytes % (Manual) Monocytes % (Manual) Eosinophils % (Manual) Nucleated RBC % Seg Neutrophils # 14.6 H Seg Neutrophils # Man Lymphocytes # (Manual) Monocytes # (Manual) Eosinophils # (Manual) PT INR APTT POC ABG pH POC ABG pCO2 POC ABG pO2 Sodium Potassium Chloride Carbon Dioxide BUN Creatinine Glucose POC Glucose 165 H 133 H Lactic Acid Calcium Phosphorus Magnesium Iron TIBC Ferritin Direct Bilirubin AST Total Creatine Kinase Troponin T Total Protein Albumin Prealbumin LDL Cholesterol Direct HDL Cholesterol Vitamin B12 TSH PTH Intact Urine Creatinine Urine Total Protein Vancomycin Trough Digoxin Salicylates Acetaminophen Crossmatch 04/11/19 04/11/19 04/11/19 04:25 04:25 05:38 WBC RBC Hgb Hct MCV MCH MCHC RDW Plt Count Lymph % (Auto) [place] % (Auto) Eos % (Auto) Lymph # [place] # Eos # Seg Neutrophils % Seg Neuts % (Manual) Lymphocytes % (Manual) Monocytes % (Manual) Eosinophils % (Manual) Nucleated RBC % Seg Neutrophils # Seg Neutrophils # Man Lymphocytes # (Manual) Monocytes # (Manual) Eosinophils # (Manual) PT 15.5 H INR 1.26 H APTT POC ABG pH POC ABG pCO2 POC ABG pO2 Sodium 136 L Potassium Chloride Carbon Dioxide BUN Creatinine 0.6 L Glucose POC Glucose 107 H Lactic Acid Calcium 7.7 L Phosphorus Magnesium Iron TIBC Ferritin Direct Bilirubin AST Total Creatine Kinase Troponin T Total Protein Albumin Prealbumin LDL Cholesterol Direct HDL Cholesterol Vitamin B12 TSH PTH Intact Urine Creatinine Urine Total Protein Vancomycin Trough Digoxin Salicylates Acetaminophen Crossmatch
--- NOTE | 2019-04-11 11:54 | Progress Note ---
Assessment and Plan Assessment and plan: --Acute hypoxic respiratory intubated, vent dependent, unable to wean off vent, Scheduled for trach and PEG today per surgery, continue nebulizers and supportive care --Acute metabolic encephalopathy, CT head negative,back to her baseline per the family --Severe Anemia: Drop in H/H Hb: 8.0 status post total 3 units of PRBC transfusion --Digoxin toxicity; off digoxin --Acute Right common femoral DVT and right IJ vein thrombosis argatroban drip dced due to severe anemia[requiring transfusion] planned for IVC filter by IR, but already have one in place no AC for now, monitor clinically --Sepsis due to aspiration pneumonia; source pneumonia but having persistent fever. UA negative. Blood culture 03/19/2019 no growth. Urine culture 03/19/2019 negative. ID following, Has completed full course for pneumonia and abx stopped on 04/04 for aspiration PNA started on abx again by ID on 04/07 for persistent fever with bactrim for 7 days --Septic shock: off pressor, --Paroxysmal Atrial fib, Now NSR on amioderone, metoprolol --HA (acute kidney injury), atn and vasomotor nephrology, poa: IV fluids for now, Nephrology consulted ,renal function improved --Anemia, due to CD vs other cause ordered stool for occult blood, iron study transfused one unit PRBC --RUL Aspiration pneumonia: treated with abx --Hypernatremia: improved with Iv fluid --Hypomagnesemia: replete and follow as needed --Elevated troponin level/ NSTEMI II; consulted Cardiology, conservative mx --DVT prophylaxis --DNR code status CCT 34 minutes History Interval history: Patient seen and examined medical records reviewed No new events reported by the nursing staff Patient's remained intubated on ventilatory support Schedule for trach and PEG daily Vital signs reviewed Hospitalist Physical - Constitutional Vitals: Temp Pulse Resp BP Pulse Ox 101 F H 119 H 32 H 118/51 92 04/11/19 08:00 04/11/19 09:33 04/11/19 09:33 04/11/19 09:30 04/11/19 09:30 General appearance: Present: no acute distress, well-nourished, other (intubated on vent) - EENT Eyes: Present: PERRL, EOM intact - Neck Neck: Present: supple, normal ROM - Respiratory Respiratory effort: normal Respiratory: bilateral: diminished, wheezing, negative: rales, rhonchi - Cardiovascular Rhythm: regular Heart Sounds: Present: S1 & S2 - Extremities Extremities: no ischemia, No edema - Abdominal General gastrointestinal: soft, non-tender, non-distended, normal bowel sounds - Integumentary Integumentary: Present: clear, warm - Psychiatric Psychiatric: other (on vent) - Neurologic Neurologic: other (on vent) Results - Labs CBC & Chem 7: 04/11/19 04:25 04/11/19 04:25 Labs: Laboratory Last Values WBC 18.5 K/mm3 (4.5-11.0) H 04/11/19 04:25 RBC 2.61 M/mm3 (3.65-5.03) L 04/11/19 04:25 Hgb 8.0 gm/dl (10.1-14.3) L 04/11/19 04:25 Hct 24.3 % (30.3-42.9) L 04/11/19 04:25 MCV 93 fl (79-97) 04/11/19 04:25 MCH 31 pg (28-32) 04/11/19 04:25 MCHC 33 % (30-34) 04/11/19 04:25 RDW 17.2 % (13.2-15.2) H 04/11/19 04:25 Plt Count 490 K/mm3 (140-440) H 04/11/19 04:25 Lymph % (Auto) 9.8 % (13.4-35.0) L 04/11/19 04:25 [place] % (Auto) 9.5 % (0.0-7.3) H 04/11/19 04:25 Eos % (Auto) 1.4 % (0.0-4.3) 04/11/19 04:25 Baso % (Auto) 0.3 % (0.0-1.8) 04/11/19 04:25 Lymph # 1.8 K/mm3 (1.2-5.4) 04/11/19 04:25 [place] # 1.8 K/mm3 (0.0-0.8) H 04/11/19 04:25 Eos # 0.3 K/mm3 (0.0-0.4) 04/11/19 04:25 Baso # 0.1 K/mm3 (0.0-0.1) 04/11/19 04:25 Add Manual Diff Complete 04/05/19 03:30 Total Counted 100 04/05/19 03:30 Seg Neutrophils % 79.0 % (40.0-70.0) H 04/11/19 04:25 Seg Neuts % (Manual) 69.0 % (40.0-70.0) 04/05/19 03:30 0 % 04/05/19 03:30 26.0 % (13.4-35.0) 04/05/19 03:30 Reactive Lymphs % (Man) 0 % 04/05/19 03:30 5.0 % (0.0-7.3) 04/05/19 03:30 0 % (0.0-4.3) 04/05/19 03:30 0 % (0.0-1.8) 04/05/19 03:30 0 % 04/05/19 03:30 0 % 04/05/19 03:30 0 % 04/05/19 03:30 0 % 04/05/19 03:30 Nucleated RBC % Not Reportable 04/05/19 03:30 Seg Neutrophils # 14.6 K/mm3 (1.8-7.7) H 04/11/19 04:25 Seg Neutrophils # Man 5.4 K/mm3 (1.8-7.7) 04/05/19 03:30 Band Neutrophils # 0.0 K/mm3 04/05/19 03:30 2.0 K/mm3 (1.2-5.4) 04/05/19 03:30 Abs React Lymphs (Man) 0.0 K/mm3 04/05/19 03:30 0.4 K/mm3 (0.0-0.8) 04/05/19 03:30 0.0 K/mm3 (0.0-0.4) 04/05/19 03:30 0.0 K/mm3 (0.0-0.1) 04/05/19 03:30 0.0 K/mm3 04/05/19 03:30 0.0 K/mm3 04/05/19 03:30 0.0 K/mm3 04/05/19 03:30 Blast Cells # 0.0 K/mm3 04/05/19 03:30 WBC Morphology Not Reportable 04/05/19 03:30 Hypersegmented Neuts Not Reportable 04/05/19 03:30 Hyposegmented Neuts Not Reportable 04/05/19 03:30 Hypogranular Neuts Not Reportable 04/05/19 03:30 Not Reportable 04/05/19 03:30 Not Reportable 04/05/19 03:30 Not Reportable 04/05/19 03:30 Not Reportable 04/05/19 03:30 Not Reportable 04/05/19 03:30 Not Reportable 04/05/19 03:30 Consistent w auto 04/05/19 03:30 Not Reportable 04/05/19 03:30 Plt Clumps, EDTA Not Reportable 04/05/19 03:30 Not Reportable 04/05/19 03:30 Not Reportable 04/05/19 03:30 Not Reportable 04/05/19 03:30 Plt Morphology Comment Not Reportable 04/05/19 03:30 RBC Morphology Not Reportable 04/05/19 03:30 Dimorphic RBCs Not Reportable 04/05/19 03:30 Not Reportable 04/05/19 03:30 Not Reportable 04/05/19 03:30 2+ 04/05/19 03:30 2+ 04/05/19 03:30 Not Reportable 04/05/19 03:30 Not Reportable 04/05/19 03:30 Not Reportable 04/05/19 03:30 Not Reportable 04/05/19 03:30 Not Reportable 04/05/19 03:30 Not Reportable 04/05/19 03:30 Not Reportable 04/05/19 03:30 Not Reportable 04/05/19 03:30 Not Reportable 04/05/19 03:30 Not Reportable 04/05/19 03:30 Not Reportable 04/05/19 03:30 Not Reportable 04/05/19 03:30 Not Reportable 04/05/19 03:30 Not Reportable 04/05/19 03:30 Not Reportable 04/05/19 03:30 Acanthocytes (Spur) Not Reportable 04/05/19 03:30 Rouleaux Not Reportable 04/05/19 03:30 Not Reportable 04/05/19 03:30 Not Reportable 04/05/19 03:30 Not Reportable 04/05/19 03:30 Not Reportable 04/05/19 03:30 Hem Pathologist Commnt No 04/05/19 03:30 PT 15.5 Sec. (12.2-14.9) H 04/11/19 04:25 INR 1.26 (0.87-1.13) H 04/11/19 04:25 APTT 50.5 Sec. (24.2-36.6) H 03/30/19 11:15 Heparin Anti-Xa, Unfract Negative (Negative) 03/27/19 13:30 POC ABG pH 7.411 (7.35-7.45) 03/25/19 05:40 POC ABG pCO2 33.3 (35-45) L 03/23/19 05:25 POC ABG pO2 83 (80-105) 03/25/19 05:40 POC ABG HCO3 17.7 (22-26 mml/L) 03/25/19 05:40 POC ABG Total CO2 19 (23-27mmol/L) 03/25/19 05:40 POC ABG O2 Sat 97 03/25/19 05:40 POC ABG Base Excess -7 ((-2) - (+3)mmol/L) 03/25/19 05:40 30 % 03/25/19 05:40 Sodium 136 mmol/L (137-145) L 04/11/19 04:25 Potassium 3.6 mmol/L (3.6-5.0) 04/11/19 04:25 Chloride 100.3 mmol/L (98-107) 04/11/19 04:25 Carbon Dioxide 23 mmol/L (22-30) 04/11/19 04:25 16 mmol/L 04/11/19 04:25 BUN 14 mg/dL (7-17) 04/11/19 04:25 0.6 mg/dL (0.7-1.2) L 04/11/19 04:25 Estimated GFR > 60 ml/min 04/11/19 04:25 23 % 04/11/19 04:25 Glucose 70 mg/dL (65-100) 04/11/19 04:25 POC Glucose 107 (70-105) H 04/11/19 05:38 4.2 % (4-6) 03/20/19 08:23 Lactic Acid 2.00 mmol/L (0.7-2.0) 03/23/19 04:50 Calcium 7.7 mg/dL (8.4-10.2) L 04/11/19 04:25 Phosphorus 2.70 mg/dL (2.5-4.5) D 04/05/19 03:30 Magnesium 2.00 mg/dL (1.7-2.3) 04/05/19 03:30 Iron 32 ug/dL (37-170) L 03/24/19 14:25 TIBC 75 mcg/dL (250-450) L 03/24/19 14:25 448.3 ng/mL (13.0-400.0) H 03/28/19 07:31 0.50 mg/dL (0.1-1.2) 03/29/19 04:40 0.3 mg/dL (0-0.2) H 03/27/19 13:31 0.2 mg/dL 03/27/19 13:31 AST 23 units/L (5-40) 03/29/19 04:40 ALT 9 units/L (7-56) 03/29/19 04:40 103 units/L (35-129) 03/29/19 04:40 1499 units/L (30-135) H 03/19/19 12:59 0.036 ng/mL (0.00-0.029) H 03/22/19 06:10 5.0 g/dL (6.3-8.2) L 03/29/19 04:40 1.4 g/dL (3.9-5) L 03/29/19 04:40 0.4 % 03/29/19 04:40 0.052 g/L (0.200-0.400) L 03/20/19 08:23 Triglycerides 72 mg/dL (2-149) 03/19/19 12:59 Cholesterol 61 mg/dL (50-199) 03/19/19 12:59 22 mg/dL (50-130) L 03/19/19 12:59 31 mg/dL (40-59) L 03/19/19 12:59 1.96 % 03/19/19 12:59 See scanned result 03/27/19 13:30 Vitamin B12 > 2000 pg/mL (211-911) H 03/25/19 10:11 18.61 ng/mL (7.3-26.0) 03/28/19 07:31 TSH 7.810 mlU/mL (0.270-4.200) H 03/22/19 06:10 Free T4 1.21 ng/dL (0.76-1.46) 03/22/19 06:10 PTH Intact 171.6 pg/mL (15-65) H 03/20/19 17:50 [place] (Yellow) 04/08/19 19:50 Slightly-cloudy (Clear) 04/08/19 19:50 5.0 (5.0-7.0) 04/08/19 19:50 Ur Specific [place] 1.025 (1.003-1.030) 04/08/19 19:50 100 mg/dl mg/dL (Negative) 04/08/19 19:50 Neg mg/dL (Negative) 04/08/19 19:50 Neg mg/dL (Negative) 04/08/19 19:50 Neg (Negative) 04/08/19 19:50 Neg (Negative) 04/08/19 19:50 Neg (Negative) 04/08/19 19:50 < 2.0 mg/dL (<2.0) 04/08/19 19:50 Ur Leukocyte Esterase Neg (Negative) 04/08/19 19:50 5.0 /HPF (0.0-6.0) 04/08/19 19:50 4.0 /HPF (0.0-6.0) 04/08/19 19:50 U Epithel Cells (Auto) 8.0 /HPF (0-13.0) 04/08/19 19:50 1+ /HPF (Negative) 03/19/19 12:47 Amorphous Crystals Few 04/05/19 13:23 Hyaline Casts 3 /LPF 03/19/19 12:47 Granular Casts 43 /LPF 04/05/19 13:23 Few /HPF 04/08/19 19:50 None seen (None Seen) 03/20/19 16:40 53.7 mg/dL (0.1-20.0) H 03/20/19 16:40 3.8 mg/dL (0.1-34.0) 03/20/19 16:40 Microalb/Creat Ratio 70.7 ug/mg 03/20/19 16:40 116 mmol/L 03/20/19 16:40 36 mg/dL (5-11.8) H 03/20/19 16:40 Vancomycin Trough 23.0 ug/mL (5.0-20.0) H 03/27/19 09:04 Digoxin 2.6 ng/mL (0.9-2.0) H* 03/30/19 04:42 Salicylates < 0.3 mg/dL (2.8-20.0) L 03/19/19 12:59 Acetaminophen < 5.0 ug/mL (10.0-30.0) L 03/19/19 12:59 Heparin-induced Plt Ab Negative (Negative) 03/27/19 13:30 UF Heparin High Dose 0 % Release 03/27/19 13:30 SEMAJ UFH Low Dose 0.1 0 % Release 03/27/19 13:30 SEMAJ UFH Low Dose 0.5 0 % Release 03/27/19 13:30 Blood Type O POSITIVE 04/05/19 06:51 Antibody Screen Negative 04/05/19 06:51 Crossmatch See Detail 04/05/19 06:51 Active Medications - Current Medications Current Medications: Generic Name Dose Route Start Last Admin Trade Name Freq PRN Reason Stop Dose Admin Acetaminophen 650 mg 03/24/19 23:48 04/11/19 09:52 Tylenol FEEDTUBE 650 mg Q6H PRN Administration Pain, Mild (1-3) Albuterol 2.5 mg 03/19/19 23:58 Proventil IH Q3HRT PRN Shortness Of Breath Albuterol/Ipratropium 1 ampul 03/20/19 02:00 04/11/19 09:33 Duoneb *Not For Prn Use* IH 1 ampul Q6HRT YUSUF Administration Amiodarone HCl 200 mg 03/22/19 22:00 04/11/19 09:44 Cordarone PO 200 mg BID YUSUF Administration Lipase/Protease/Amylase 1 each 04/07/19 15:[address] 10,500 Unit FEEDTUBE PRN PRN For Clogged Feeding Tube Aspirin 81 mg 03/21/19 10:00 04/11/19 09:44 Baby Aspirin PO 81 mg DAILY YUSUF Administration Budesonide 0.5 mg 03/19/19 23:45 04/11/19 09:33 Pulmicort IH 0.5 mg Q12HRT YUSUF Administration Dextrose 50 ml 03/19/19 23:58 03/21/19 16:29 D50w (25gm) Syringe IV 50 ml PRN PRN Administration Hypoglycemia Famotidine 20 mg 03/22/19 10:00 04/11/19 09:44 Pepcid PO 20 mg BID YUSUF Administration Fentanyl 50 mcg 03/19/19 12:45 04/10/19 15:06 Sublimaze IV 50 mcg Q10MIN PRN Administration ANALGESIA Hydromorphone HCl 0.5 mg 03/19/19 23:58 04/11/19 09:08 Dilaudid IV 0.5 mg Q3H PRN Administration Pain , Severe (7-10) Hydrophilic Ointment 1 applic 03/19/19 12:45 Vaseline Lip Therapy TP Q2HR PRN Dry Lips Fentanyl Citrate 2,000 mcg in 100 mls @ 2.835 mls/hr 03/19/19 14:00 03/21/19 11:33 Fentanyl Drip Premix IV 0 mcg/kg/hr TITR YUSUF 0 mls/hr Titration Protocol 1 MCG/KG/HR Norepinephrine 4 mg in 250 mls @ 7.5 mls/hr 03/25/19 11:00 03/30/19 23:45 Levophed Drip 4 Mg/Ns 250 Ml IV 0 mcg/min TITR YUSUF 0 mls/hr Titration Protocol 2 MCG/MIN Fluconazole 200 mg in 100 mls @ 100 mls/hr 04/08/19 17:00 04/10/19 16:26 Diflucan IV 04/12/19 16:59 100 mls/hr Q24H YUSUF Administration Protocol Linezolid 600 mg in 300 mls @ 300 mls/hr 04/08/19 18:00 04/11/19 05:08 Zyvox 600mg/300ml IV 04/12/19 17:59 300 mls/hr Q12H YUSUF Administration Protocol Insulin Human Lispro 0 unit 03/20/19 00:00 04/11/19 06:13 Humalog SUB-Q Not Given Q6HR YUSUF Protocol Metoclopramide HCl 5 mg 03/20/19 00:12 Reglan IV Q6H PRN Nausea And Vomiting Metoprolol Tartrate 2.5 mg 03/23/19 13:17 03/24/19 21:20 Lopressor IV 2.5 mg Q2HR PRN Administration HR >150 Metoprolol Tartrate 12.5 mg 04/11/19 22:00 Lopressor PO BID YUSUF Multi-Ingred Cream/Lotion/Oil/Oint 1 applic 03/19/19 12:45 Artificial Tears Ophth Oint OU Q4HR PRN Dry Eye(s) Ondansetron HCl 4 mg 03/19/19 23:58 Zofran IV Q8H PRN Nausea And Vomiting Promethazine HCl 25 mg 03/19/19 23:58 Phenergan [place] Q6H PRN N/V IF NPO AND NO IV ACCESS Simple Syrup 15 ml 04/07/19 15:50 Simple Syrup FEEDTUBE PRN PRN Hypoglycemia Simple Syrup 30 ml 04/07/19 15:50 Simple Syrup FEEDTUBE PRN PRN Hypoglycemia Sodium Bicarbonate 325 mg 04/07/19 15:50 Sodium Bicarbonate FEEDTUBE PRN PRN For Clogged Feeding Tube Sodium Chloride 10 ml 03/20/19 10:00 04/11/19 09:45 Sodium Chloride Flush Syringe 10 Ml IV 10 ml BID YUSUF Administration Sodium Chloride 10 ml 03/19/19 23:58 04/07/19 10:45 Sodium Chloride Flush Syringe 10 Ml IV 10 ml PRN PRN Administration LINE FLUSH Trimethoprim/Sulfamethoxazole 1 each 04/07/19 14:00 04/11/19 09:44 Bactrim Ds PO 04/14/19 22:01 1 each Q12HR YUSUF Administration Nutrition/Malnutrition Assess - Dietary Evaluation Nutrition/Malnutrition Findings: Nutrition Notes Start: 03/20/19 15:29 Freq: Status: Active Protocol: Document 04/07/19 15:45 RM (Rec: 04/07/19 15:48 RM [id number]) Nutrition Notes Initial or Follow up Reassessment Other Pertinent Diagnosis Hx CVA, dementia, R buttock skin tear Current Diet No diet ordered Labs/Tests Reviewed Pertinent Medications Reviewed Height 5 ft 5 in Weight 63.5 kg [place] Body Weight (kg) 56.81 BMI 23.3 Subjective/Other Information Observed Vital 1.2 infusing at 45 ml/hr. Percent of energy/protein needs met: 93%/100% Burn Absent Trauma Absent #1 Nutrition Diagnosis Inadequate oral intake Diagnosis Progress(for reassessment Continues documentation) Is patient on ventilator? Yes Is Patient Ambulatory and/or Out of Bed No REE-([facility]-confined to bed) 1387.104 Calculation Used for Recommendations [facility] Additional Notes Protein Needs: 75-124g (1.2-2g /kg) Fluid Needs: 1 ml/kcal Nutrition Intervention Nutrition Support: Vital 1.2 at 45 ml/hr Water flush of 100 mls 4 q hrs Kcal 1,296 Protein (gm) 81 Fluid (mL) 876 Goal #1 TF tolerance Goal #2 Continue to meet at least 80% of calorie and protein needs via TF Anticipated Discharge Needs: Unable to determine at this time Follow-Up By: 04/14/19 Additional Comments Follow for stable TF
[2019-04-11] MEDS ORDERED: NACL 0.9% 1000 ML 1,000 ML IV SCH (13:00)
[2019-04-11] MEDS ORDERED: ZEMURON IV ONE (13:00)
[2019-04-11] MEDS ORDERED: WATER FOR IRRIG STERILE IR ONE (13:16)
[2019-04-11] MEDS ORDERED: NACL 0.9% 1000 ML 1,000 ML ONE (13:17)
--- NOTE | 2019-04-11 14:10 | Progress Note ---
Assessment and Plan Cultures/ID related labs: 04/05 BCx - negative 04/04 Sputum - Stenotrophomonas maltophila. 03/27 tracheal aspirate - heavy neutrophils, usual resp maday Blood culture 03/19/2019 negative. Urine culture 03/19/2019 negative. 03/23/2019 tracheal aspirate culture: Usual resp maday 04/05/2019 blood culture no growth so far 04/08/2019 blood culture no growth so far Assessment: 73 y/o female with history of dementia, prior CVA, on home hospice admitted on 03/20/2019 brought by EMS due to altered mental status: 1) Sepsis with septic shock: again with fevers. etiology ? pneumonia ? vulvar abscess/cellulitis ?drug fever v/s DVT related. Repeat UA neg. 2) Bilateral pneumonia: Her radiography is largely unchanged. Her sputum cultures have grown S. maltophila, which is both a common infection in intubated patients as well as a common colonizer of tubes. CXR vaughn patchy pulmonary opacities. On Bactrim. 3) Acute encephalopathy: CT head without contrast shows encephalomalacia in the entire right cerebral hemisphere, volume loss in the left cerebral hemisphere, no acute parenchymal lesion in the brain. 4) Acute respiratory failure: remains intubated, on the vent. Responsive to commands today. 5) HA: improved. 6) Persistent fevers - Had initially improved with cessation of antibiotics but now febrile again. 7) DVTs - DVT of RIJ at catheter site as well as R common femoral, and a super ficial thrombus in R greater saphenous. IVC filter placed Recommendations: continue fluconazole and linezolid D4 of 5 for vulvar cellulitis/candidiasis continue Bactrim for Stenotrophomonas coverage fevers have returned, unclear etiology. Remains on antibiotics. Extremely poor prognosis Isaias Quintanilla MD, FACP [facility], [place], [facility] ([facility] C: [phone] O: [phone] F: [phone] Subjective Date of service: 04/11/19 Principal diagnosis: anemia - dvt Interval history: Remains febrile. Still on the vent. Objective - Exam Narrative Exam: Physical Exam: Constitutional: awake, intubated, doesn't follow commands Head, Ears, Nose: Normocephalic, atraumatic. External ears, nose normal Eyes: Conjunctivae/corneas clear. No icterus. No ptosis. Neck: Supple, no meningeal signs Oral: intubated Cardiovascular: S1, S2 normal. Respiratory: Good air entry, clear to auscultation bilaterally GI: Soft, non-tender; bowel sounds normal. No peritoneal signs. Rectal tube + Musculoskeletal: B/L trace pedal edema, foot drop and contractures Skin: No rash or abscess Hem/Lymphatic: No palpable cervical or supraclavicular nodes. No lymphangitis Psych: no agitation Neurological: intubated, on vent - Constitutional Vitals: Vital Signs Temp Pulse Resp BP Pulse Ox 101 F H 108 H 26 H 117/68 92 04/11/19 08:00 04/11/19 13:32 04/11/19 13:32 04/11/19 13:31 04/11/19 13:31 Temperature -Last 24 Hours Temperature 101 F Temperature 99.8 F Temperature 97.9 F Temperature 101.1 F Temperature 102.1 F - Labs CBC & Chem 7: 04/11/19 04:25 04/11/19 04:25 Labs: Abnormal lab results 04/10/19 04/10/19 04/11/19 Range/Units 18:31 23:41 04:25 WBC 18.5 H (4.5-11.0) K/mm3 RBC 2.61 L (3.65-5.03) M/mm3 Hgb 8.0 L (10.1-14.3) gm/dl Hct 24.3 L (30.3-42.9) % RDW 17.2 H (13.2-15.2) % Plt Count 490 H (140-440) K/mm3 Lymph % (Auto) 9.8 L (13.4-35.0) % [place] % (Auto) 9.5 H (0.0-7.3) % [place] # 1.8 H (0.0-0.8) K/mm3 Seg Neutrophils % 79.0 H (40.0-70.0) % Seg Neutrophils # 14.6 H (1.8-7.7) K/mm3 PT (12.2-14.9) Sec. INR (0.87-1.13) Sodium (137-145) mmol/L Creatinine (0.7-1.2) mg/dL POC Glucose 165 H 133 H (70-105) Calcium (8.4-10.2) mg/dL 04/11/19 04/11/19 04/11/19 Range/Units 04:25 04:25 05:38 WBC (4.5-11.0) K/mm3 RBC (3.65-5.03) M/mm3 Hgb (10.1-14.3) gm/dl Hct (30.3-42.9) % RDW (13.2-15.2) % Plt Count (140-440) K/mm3 Lymph % (Auto) (13.4-35.0) % [place] % (Auto) (0.0-7.3) % [place] # (0.0-0.8) K/mm3 Seg Neutrophils % (40.0-70.0) % Seg Neutrophils # (1.8-7.7) K/mm3 PT 15.5 H (12.2-14.9) Sec. INR 1.26 H (0.87-1.13) Sodium 136 L (137-145) mmol/L Creatinine 0.6 L (0.7-1.2) mg/dL POC Glucose 107 H (70-105) Calcium 7.7 L (8.4-10.2) mg/dL
[2019-04-11] MEDS ORDERED: VERSED IV ONE (14:16)
[2019-04-11] MEDS ORDERED: DIPRIVAN 10 MG/ML IV ONE (14:16)
--- NOTE | 2019-04-11 15:15 | Procedure Note ---
Date of procedure: 04/11/19 Pre-op diagnosis: respiratory failure Post-op diagnosis: same Procedure: Consent was on the chart. Time out was performed. Sterile prep and drape was done. Anesthesia was managed by anesthesia provider. Lidocaine was used to anesthetize an area about two finger breadths above the sternal notch. Transverse incision was made. Blunt dissection was carried down to trachea. Under bronchoscopic guidance, a finder needle was used to enter the trachea. Thereafter, the introducer needle was inserted. It was approximately at the second tracheal ring. Tract was dilated and tracheostomy tube was easily inserted. Balloon was inflated. Position was rechecked via bronchoscopy through the tracheostomy tube. We were at least 2 cm above the liam. We had good inspiratory and expiratory volumes. CXR shows the tube to be in good position. There were no apparent complications at the end of the case. Anesthesia: MAC Surgeon: NIKHIL MALDONADO ([place] - bronch) Estimated blood loss: minimal Pathology: none Condition: stable Disposition: ICU
--- NOTE | 2019-04-11 15:31 | Procedure Note ---
Date of procedure: 04/11/19 Pre-op diagnosis: VDRF Post-op diagnosis: same Procedure: fiberoptic bronchoscopy Findings: Time out performed. After sedation was administered by anesthesia, fiberoptic bronchoscope was passed through the endotracheal tube via adaptor. The ETT was at 20cm at the lip and approximately 3-4 cm above the liam. The airway was clear without secretions. The balloon was deflated and tube pulled back to [address] Paige performed tracheostomy. The needle was seen entering the trachea and wire passed towards liam under direct bronchoscopic visualization. The trachea was serially dilated and tracheostomy tube and balloon seen to enter trachea. Bronchoscope was then withdrawn and passed through tracheostomy tube. There was no bleeding and tip of tube was approximately 3 cm above liam. Bronchscope was withdrawn and tracheostomy connected to vent. Inspiratory and expiratory volumes were satisfactory. Patient tolerated the procedure well. Please see Dr. Paige's procedure note for details about tracheostomy insertion. Anesthesia: GETA Surgeon: LOUIE ZAMORA Estimated blood loss: none Pathology: none Condition: stable Disposition: no change
--- NOTE | 2019-04-11 15:31 | Anesthesia Consultation ---
Anesthesia Consult and Med Hx Date of service: 04/11/19 - Airway Intubation Access Assessment: Probably Good (oETT in situ) - Pulmonary Exam CTA: No (coarse breath sounds) - Cardiac Exam Cardiac Exam: RRR - Pre-Operative Health Status ASA Pre-Surgery Classification: ASA4 Proposed Anesthetic Plan: MAC - Pulmonary Hx Respiratory Symptoms: Yes (acute hypoxic respiratory failure) Hx Pneumonia: Yes (aspiration PNA) - Cardiovascular System Hx Hypertension: No Hx Heart Attack/AMI: Yes (NSTEMI this admission) Hx Percutaneous Transluminal Coronary Angioplasty (PTCA): No Hx Cardia Arrhythmia: Yes (paroxysmal A-fib) Hx Pacemaker: No Hx Internal Defibrillator: No Hx Valvular Heart Disease: Yes (moderate TR) - Central Nervous System CVA: Yes (remote hx CVA per chart review) - Endocrine Hx Renal Disease: Yes (HA; improved) Hx Liver Disease: No Hx Insulin Dependent Diabetes: No Hx Thyroid Disease: No - Hematic Hx Anemia: Yes - Other Systems Hx Obesity: No - Additional Comments Anesthesia Medical History Comments: TTE 03/27/19: normal LVEF, mild pHTN w/ RVSP 38, moderate TR. Consent obtained from [facility] at bedside.
--- NOTE | 2019-04-11 15:31 | Anesthesia Day of Surgery ---
Anesthesia Day of Surgery - Day of Surgery Patient Examined: Yes Patient H&P Reviewed: Yes Patient is NPO: Yes
--- NOTE | 2019-04-11 16:38 | Procedure Note ---
Date of procedure: 04/11/19 Pre-op diagnosis: VDRF Post-op diagnosis: same Procedure: PEG tube placement Findings: Time out performed at start of case. Bite block placed. Endoscope passed through mouth and into esophagus using NGT as guidance. The endoscope was passed into the stomach and the stomach insufflated. Transillumination was performed and a position chosen for PEG tube where light was seen through abdominal wall. This was to left of the midline and 2-3 fingerbreadths below the costal margin. Dr. Maldonado performed PEG portion of procedure. Skin anesthetized with local anesthetic. Small incision made in skin using 11 blade and needle passed through incision into stomach under direct visualization. The patient had a thick abdominal wall. The wire was passed into the stomach and grasped with the snare. The endoscope and wire were removed through the mouth and PEG tube attached to wire. The wire was then pulled through mouth and into stomach. The GE junction was slightly narrow and there was mild bleeding caused by bumper. The area was i rrigated and no active bleeding was seen. The bumper was pulled up flush against the stomach wall without tension and the outer bumper was at 5cm at the skin. The remainder of the stomach was unrema rkable. I could not pass the scope through the pylorus to evaluate the duodenum. The scope was retroflexed and no active bleeding was seen from the GE junction. The scope was withdrawn into the esophagus and no bleeding seen. The esophagus was examined upon withdrawing scope and was unremarkable. The scope was withdrawn via the mouth and bite block and NGT removed. The PEG tube was assembled in the usual fashion and the stomach decompressed via PEG. The patient tolerated the procedure well and remained stable the entire case. All sharps were disposed of appropriately. Anesthesia: leticia VICENTE Surgeon: LOUIE ZAMORA Flight Paramedic: NIKHIL MALDONADO (cosurgeon) Estimated blood loss: minimal Pathology: none Condition: stable Disposition: no change
--- NOTE | 2019-04-11 16:45 | XRay Report ---
CHEST 1 VIEW INDICATION: trach placement. COMPARISON: 04/08/2019. FINDINGS: Support devices: Endotracheal tube exchanged for a tracheostomy catheter. NG tube is been removed. A central line is unchanged in position. Negative for pneumothorax. Heart: Within normal limits. Lungs/Pleura: Small basilar effusion/volume loss remain. Bilateral edema/infiltrate is worsened. Additional findings: None. IMPRESSION: 1. Satisfactory tracheostomy catheter placement. 2. Worsening in the appearance of the chest. Signer Name: Jared Corley MD Signed: 04/11/2019 4:40 PM Workstation Name: [id number]
[2019-04-11] MEDS: DIFLUCAN 200 MG/100 ML BAG IV SCH (17:04)
[2019-04-11] MEDS: LOPRESSOR PO SCH (21:28)
[2019-04-12] MEDS: DUONEB *Not for PRN Use IH SCH ×4 (01:23→20:29)
[2019-04-12] MEDS: HumaLOG SUB-Q SCH ×4 (03:57→18:00)
[2019-04-12] MEDS: ZYVOX 600MG/300ML 600 MG/300 ML BAG IV SCH (05:50)
[2019-04-12] MEDS: SODIUM CHLORIDE FLUSH SYRINGE 10 ML IV SCH ×3 (05:51→21:16)
--- NOTE | 2019-04-12 07:36 | Hem/Onc Progress Note ---
Assessment and Plan h/o low plt - at admission DVT was on home hospice 1. h/o Thrombocytopenia. This may be secondary to medications. The platelets were even low at admission. The differential includes infection versus a marrow issue. At this time, platelets are adequate, we will follow the trend. Because of clinical suspicion, HIT test has been ordered. Argatroban ordered. Heparin has been stopped. plt have improved 2. h/o Pneumonia. 3. h/o Encephalopathy. 4. Respiratory failure 5. h/o Renal impairment. 6. Deep vein thrombosis. Her immobilization may have a role. Central line also may have a role. Acute Right common femoral DVT and right IJ vein thrombosis the patient was on Argatroban. IVC filter may prevent the leg DVT from progression to PE; however, for IJ DVT, we have limited options. The patient was on home hospice as per notes. Atrial fibrillation, she was on medications. History of anemia, deficiency investigations. Leukocytosis, likely reactive. B12 level more than 2000, serum iron 32. anemia - IV iron trial 04/12/2019 anemia - off argatroban - HIT test negative h/o PRBC it appears that the pt is possibly bleeding - based on hb fall - hence anticoag has been held if hb improves - ? oral anticoag an option - eliquis vs xarelto trache done h/o IVC filter on vent h/o encephalopathy d/w dr nixon - Patient Problems (1) Thrombocytopenia Current Visit: Yes Status: Acute Subjective Date of service: 04/12/19 Principal diagnosis: anemia - DVT Interval history: s/p trach Objective - Exam Narrative Exam: Pain - none General appearance intubated - trach+ Performance status - complete help needed Eyes - no icterus ENT no thrush LNs cervical not palpable Neck - no LNs/mass - trach+ Respiratory Normal Breath sounds - CTA anteriorly CVS S1 S2 + Extremities normal temperature - flaccid General GI Soft - distended Rectal deferred female - deferred Skin warm Musculoskeletal not able to evaluate Neurologically - on vent - Constitutional Vitals: Last Vital Signs Temp 100.7 F H 04/12/19 04:00 Pulse 109 H 04/12/19 07:00 Resp 30 H 04/12/19 07:00 BP 114/58 04/12/19 07:00 Pulse Ox 95 04/12/19 07:00 - Labs Lab Results: Laboratory Results - last 24 hr 04/11/19 04/12/19 12:00 06:47 POC Glucose 101 157 H Medications & Allergies - Medications Allergies/Adverse Reactions: Allergies No Known Allergies Allergy (Unverified 03/19/19 13:11) Home Medications: Home Medications Medication Instructions Recorded Confirmed Last Taken Type Aspirin EC [Halfprin EC] 81 mg PO DAILY 03/20/19 03/20/19 Unknown History Divalproex Sodium 375 mg PO Q8H PRN 03/20/19 03/20/19 Unknown History Metoprolol [Lopressor TAB] 50 mg PO BID 03/20/19 03/20/19 Unknown History Sennosides/Docusate Sodium [Senna 8.6 mg PO BID PRN 03/20/19 03/20/19 Unknown History Plus Tablet] levETIRAcetam [Keppra TAB] 500 mg PO BID 03/20/19 03/20/19 Unknown History Active Medications: Generic Name Dose Route Start Last Admin Trade Name Freq PRN Reason Stop Dose Admin Acetaminophen 650 mg 03/24/19 23:48 04/11/19 09:52 Tylenol FEEDTUBE 650 mg Q6H PRN Administration Pain, Mild (1-3) Albuterol 2.5 mg 03/19/19 23:58 Proventil IH Q3HRT PRN Shortness Of Breath Albuterol/Ipratropium 1 ampul 03/20/19 02:00 04/12/19 01:23 Duoneb *Not For Prn Use* IH 1 ampul Q6HRT YUSUF Administration Amiodarone HCl 200 mg 03/22/19 22:00 04/11/19 21:28 Cordarone PO 200 mg BID YUSUF Administration Lipase/Protease/Amylase 1 each 04/07/19 15:50 Pancreaztiti Sargent 10,500 Unit FEEDTUBE PRN PRN For Clogged Feeding Tube Aspirin 81 mg 03/21/19 10:00 04/11/19 09:44 Baby Aspirin PO 81 mg DAILY YUSUF Administration Budesonide 0.5 mg 03/19/19 23:45 04/11/19 21:05 Pulmicort IH 0.5 mg Q12HRT YUSUF Administration Dextrose 50 ml 03/19/19 23:58 03/21/19 16:29 D50w (25gm) Syringe IV 50 ml PRN PRN Administration Hypoglycemia Famotidine 20 mg 03/22/19 10:00 04/11/19 21:28 Pepcid PO 20 mg BID YUSUF Administration Fentanyl 50 mcg 03/19/19 12:45 04/10/19 15:06 Sublimaze IV 50 mcg Q10MIN PRN Administration ANALGESIA Hydromorphone HCl 0.5 mg 03/19/19 23:58 04/11/19 21:26 Dilaudid IV 0.5 mg Q3H PRN Administration Pain , Severe (7-10) Hydrophilic Ointment 1 applic 03/19/19 12:45 Vaseline Lip Therapy TP Q2HR PRN Dry Lips Fentanyl Citrate 2,000 mcg in 100 mls @ 2.835 mls/hr 03/19/19 14:00 03/21/19 11:33 Fentanyl Drip Premix IV 0 mcg/kg/hr TITR YUSUF 0 mls/hr Titration Protocol 1 MCG/KG/HR Norepinephrine 4 mg in 250 mls @ 7.5 mls/hr 03/25/19 11:00 03/30/19 23:45 Levophed Drip 4 Mg/Ns 250 Ml IV 0 mcg/min TITR YUSUF 0 mls/hr Titration Protocol 2 MCG/MIN Fluconazole 200 mg in 100 mls @ 100 mls/hr 04/08/19 17:00 04/11/19 17:04 Diflucan IV 04/12/19 16:59 100 mls/hr Q24H YUSUF Administration Protocol Linezolid 600 mg in 300 mls @ 300 mls/hr 04/08/19 18:00 04/12/19 05:50 Zyvox 600mg/300ml IV 04/12/19 17:59 300 mls/hr Q12H YUSUF Administration Protocol Sodium Chloride 1,000 mls @ 50 mls/hr 04/11/19 13:00 Nacl 0.9% 1000 Ml IV DIRECT YUSUF Insulin Human Lispro 0 unit 03/20/19 00:00 04/12/19 07:10 Humalog SUB-Q Not Given Q6HR [facility] Protocol Metoclopramide HCl 5 mg 03/20/19 00:12 Reglan IV Q6H PRN Nausea And Vomiting Metoprolol Tartrate 2.5 mg 03/23/19 13:17 03/24/19 21:20 Lopressor IV 2.5 mg Q2HR PRN Administration HR >150 Metoprolol Tartrate 12.5 mg 04/11/19 22:00 04/11/19 21:28 Lopressor PO 12.5 mg BID YUSUF Administration Multi-Ingred Cream/Lotion/Oil/Oint 1 applic 03/19/19 12:45 Artificial Tears Ophth Oint OU Q4HR PRN Dry Eye(s) Ondansetron HCl 4 mg 03/19/19 23:58 Zofran IV Q8H PRN Nausea And Vomiting Promethazine HCl 25 mg 03/19/19 23:58 Phenergan AR Q6H PRN N/V IF NPO AND NO IV ACCESS Simple Syrup 15 ml 04/07/19 15:50 Simple Syrup FEEDTUBE PRN PRN Hypoglycemia Simple Syrup 30 ml 04/07/19 15:50 Simple Syrup FEEDTUBE PRN PRN Hypoglycemia Sodium Bicarbonate 325 mg 04/07/19 15:50 Sodium Bicarbonate FEEDTUBE PRN PRN For Clogged Feeding Tube Sodium Chloride 10 ml 03/20/19 10:00 04/12/19 05:51 Sodium Chloride Flush Syringe 10 Ml IV 10 ml BID YUSUF Administration Sodium Chloride 10 ml 03/19/19 23:58 04/07/19 10:45 Sodium Chloride Flush Syringe 10 Ml IV 10 ml PRN PRN Administration LINE FLUSH Trimethoprim/Sulfamethoxazole 1 each 04/07/19 14:00 04/11/19 21:29 Bactrim Ds PO 04/14/19 22:01 1 each Q12HR YUSUF Administration
[2019-04-12] MEDS: PULMICORT IH SCH ×2 (08:25→20:29)
--- NOTE | 2019-04-12 09:07 | Progress Note ---
Assessment and Plan - Patient Problems (1) Acute respiratory failure Current Visit: Yes Status: Acute Qualifiers: Respiratory failure complication: unspecified whether with hypoxia or hypercapnia Qualified Code(s): J96.00 - Acute respiratory failure, unspecified whether with hypoxia or hypercapnia Plan to address problem: s/p trach/PEG. Pt stable. Okay for transfer to LT[facility] from our perspective. Please call with questions. Time=10min Subjective Date of service: 04/12/19 Patient Reports: Positive: other (no events overnight. Tolerating tube feeds) Objective Vital Signs - 12hr 04/11/19 04/11/19 04/11/19 21:06 21:16 21:25 Temperature Pulse Rate 123 H 122 H Pulse Rate [ 123 H Anterior Bilateral Throughout] Pulse Rate [ From Monitor] Respiratory 20 Rate Respiratory 33 H Rate [Anterior Bilateral Throughout] Blood Pressure 186/74 186/74 O2 Sat by Pulse 90 78 L Oximetry O2 Sat by Pulse Oximetry [ Assessment] 04/11/19 04/11/19 04/11/19 21:28 22:00 22:20 Temperature Pulse Rate 119 H 96 H 95 H Pulse Rate [ Anterior Bilateral Throughout] Pulse Rate [ From Monitor] Respiratory 17 19 Rate Respiratory Rate [Anterior Bilateral Throughout] Blood Pressure 186/74 107/45 107/45 O2 Sat by Pulse 91 92 Oximetry O2 Sat by Pulse Oximetry [ Assessment] 04/11/19 04/11/19 04/12/19 23:00 23:56 00:00 Temperature 97.7 F Pulse Rate 98 H 100 H Pulse Rate [ Anterior Bilateral Throughout] Pulse Rate [ 101 H From Monitor] Respiratory 20 25 H Rate Respiratory Rate [Anterior Bilateral Throughout] Blood Pressure 116/62 136/66 O2 Sat by Pulse 93 89 Oximetry O2 Sat by Pulse Oximetry [ Assessment] 04/12/19 04/12/19 04/12/19 01:00 01:04 01:26 Temperature Pulse Rate 106 H 99 H Pulse Rate [ 104 H Anterior Bilateral Throughout] Pulse Rate [ From Monitor] Respiratory 23 Rate Respiratory 25 H Rate [Anterior Bilateral Throughout] Blood Pressure 106/55 106/55 O2 Sat by Pulse 87 94 Oximetry O2 Sat by Pulse Oximetry [ Assessment] 04/12/19 04/12/19 04/12/19 02:00 03:00 04:00 Temperature 100.7 F H Pulse Rate 111 H 104 H 110 H Pulse Rate [ Anterior Bilateral Throughout] Pulse Rate [ From Monitor] Respiratory 24 22 23 Rate Respiratory Rate [Anterior Bilateral Throughout] Blood Pressure 112/59 103/54 118/59 O2 Sat by Pulse 94 Oximetry O2 Sat by Pulse Oximetry [ Assessment] 04/12/19 04/12/19 04/12/19 05:00 05:02 06:00 Temperature Pulse Rate 112 H 112 H Pulse Rate [ Anterior Bilateral Throughout] Pulse Rate [ From Monitor] Respiratory 25 H 25 H Rate Respiratory Rate [Anterior Bilateral Throughout] Blood Pressure 132/62 104/59 O2 Sat by Pulse 96 97 Oximetry O2 Sat by Pulse 95 Oximetry [ Assessment] 04/12/19 04/12/19 04/12/19 06:10 07:00 08:00 Temperature 100.2 F H Pulse Rate 109 H 113 H Pulse Rate [ 106 H Anterior Bilateral Throughout] Pulse Rate [ 110 H 113 H From Monitor] Respiratory 23 30 H 28 H Rate Respiratory 24 Rate [Anterior Bilateral Throughout] Blood Pressure 114/58 131/60 O2 Sat by Pulse 100 95 95 Oximetry O2 Sat by Pulse Oximetry [ Assessment] - General physical appearance no distress, no pain - Neck other (trach in place. No drainage or bleeding. no hematoma seen) - Respiratory other (coarse, but equal BS. ) - Abdomen soft, not distended, other (PEG on tension (I adjusted it to relieve the pull on the PEG tube from the connected tubing). ) - Labs 04/11/19 04:25 04/11/19 04:25
[2019-04-12] MEDS: CORDARONE PO SCH ×2 (09:24→21:15)
[2019-04-12] MEDS: BABY ASPIRIN PO SCH (09:24)
[2019-04-12] MEDS: BACTRIM DS PO SCH ×2 (09:26→21:19)
[2019-04-12] MEDS: PEPCID PO SCH ×2 (09:27→21:15)
[2019-04-12] MEDS: LOPRESSOR PO SCH ×2 (09:27→21:14)
--- NOTE | 2019-04-12 09:35 | Progress Note ---
Assessment and Plan Assessment and plan: --Acute hypoxic respiratory intubated, vent dependent, unable to wean off vent, Scheduled for trach and PEG today per surgery, continue nebulizers and supportive care --Acute metabolic encephalopathy, CT head negative,back to her baseline per the family --Severe Anemia: Drop in H/H Hb: 8.0 status post total 3 units of PRBC transfusion --Digoxin toxicity; off digoxin --Acute Right common femoral DVT and right IJ vein thrombosis argatroban drip dced due to severe anemia[requiring transfusion] Patient has IVC filter ,no AC for now, hematology following --Sepsis due to aspiration pneumonia; source pneumonia but having persistent fever. UA negative. Blood culture 03/19/2019 no growth. Urine culture 03/19/2019 negative. ID following, Has completed full course for pneumonia and abx stopped on 04/04 for aspiration PNA started on abx again by ID on 04/07 for persistent fever with bactrim for 7 days --Septic shock: off pressor, --Paroxysmal Atrial fib, Now NSR on amioderone, metoprolol --HA (acute kidney injury), atn and vasomotor nephrology, poa: IV fluids for now, Nephrology consulted ,renal function improved --Anemia, due to CD vs other cause ordered stool for occult blood, iron study transfused one unit PRBC --RUL Aspiration pneumonia: treated with abx --Hypernatremia: improved with Iv fluid --Hypomagnesemia: replete and follow as needed --Elevated troponin level/ NSTEMI II; Cardiology rec conservative mx --DVT prophylaxis: SCD --DNR code status Awaiting LTAC placement CCT 31 minutes History Interval history: Sincerely and examined medical records reviewed Underwent trach and PEG yesterday tolerated the procedure well Patient is alert and awake Tracheostomy on vent Vital signs noted Low grade fever Hospitalist Physical - Constitutional Vitals: Temp Pulse Resp BP Pulse Ox 100.2 F H 114 H 24 136/67 95 04/12/19 08:00 04/12/19 09:27 04/12/19 08:00 04/12/19 09:27 04/12/19 08:00 General appearance: Present: no acute distress, well-nourished, other (tracheostomy on vent) - EENT Eyes: Present: PERRL, EOM intact - Neck Neck: Present: supple, normal ROM - Respiratory Respiratory effort: normal Respiratory: bilateral: diminished, rhonchi, negative: rales, wheezing - Cardiovascular Rhythm: regular Heart Sounds: Present: S1 & S2 - Extremities Extremities: no ischemia, No edema - Abdominal General gastrointestinal: soft, non-tender, non-distended, normal bowel sounds - Integumentary Integumentary: Present: clear, warm - Psychiatric Psychiatric: appropriate mood/affect, cooperative - Neurologic Neurologic: CNII-XII intact, moves all extremities Results - Labs CBC & Chem 7: 04/12/19 11:30 04/11/19 04:25 Labs: Laboratory Last Values WBC 18.5 K/mm3 (4.5-11.0) H 04/11/19 04:25 RBC 2.61 M/mm3 (3.65-5.03) L 04/11/19 04:25 Hgb 8.0 gm/dl (10.1-14.3) L 04/11/19 04:25 Hct 24.3 % (30.3-42.9) L 04/11/19 04:25 MCV 93 fl (79-97) 04/11/19 04:25 MCH 31 pg (28-32) 04/11/19 04:25 MCHC 33 % (30-34) 04/11/19 04:25 RDW 17.2 % (13.2-15.2) H 04/11/19 04:25 Plt Count 490 K/mm3 (140-440) H 04/11/19 04:25 Lymph % (Auto) 9.8 % (13.4-35.0) L 04/11/19 04:25 [place] % (Auto) 9.5 % (0.0-7.3) H 04/11/19 04:25 Eos % (Auto) 1.4 % (0.0-4.3) 04/11/19 04:25 Baso % (Auto) 0.3 % (0.0-1.8) 04/11/19 04:25 Lymph # 1.8 K/mm3 (1.2-5.4) 04/11/19 04:25 [place] # 1.8 K/mm3 (0.0-0.8) H 04/11/19 04:25 Eos # 0.3 K/mm3 (0.0-0.4) 04/11/19 04:25 Baso # 0.1 K/mm3 (0.0-0.1) 04/11/19 04:25 Add Manual Diff Complete 04/05/19 03:30 Total Counted 100 04/05/19 03:30 Seg Neutrophils % 79.0 % (40.0-70.0) H 04/11/19 04:25 Seg Neuts % (Manual) 69.0 % (40.0-70.0) 04/05/19 03:30 0 % 04/05/19 03:30 26.0 % (13.4-35.0) 04/05/19 03:30 Reactive Lymphs % (Man) 0 % 04/05/19 03:30 5.0 % (0.0-7.3) 04/05/19 03:30 0 % (0.0-4.3) 04/05/19 03:30 0 % (0.0-1.8) 04/05/19 03:30 0 % 04/05/19 03:30 0 % 04/05/19 03:30 0 % 04/05/19 03:30 0 % 04/05/19 03:30 Nucleated RBC % Not Reportable 04/05/19 03:30 Seg Neutrophils # 14.6 K/mm3 (1.8-7.7) H 04/11/19 04:25 Seg Neutrophils # Man 5.4 K/mm3 (1.8-7.7) 04/05/19 03:30 Band Neutrophils # 0.0 K/mm3 04/05/19 03:30 2.0 K/mm3 (1.2-5.4) 04/05/19 03:30 Abs React Lymphs (Man) 0.0 K/mm3 04/05/19 03:30 0.4 K/mm3 (0.0-0.8) 04/05/19 03:30 0.0 K/mm3 (0.0-0.4) 04/05/19 03:30 0.0 K/mm3 (0.0-0.1) 04/05/19 03:30 0.0 K/mm3 04/05/19 03:30 0.0 K/mm3 04/05/19 03:30 0.0 K/mm3 04/05/19 03:30 Blast Cells # 0.0 K/mm3 04/05/19 03:30 WBC Morphology Not Reportable 04/05/19 03:30 Hypersegmented Neuts Not Reportable 04/05/19 03:30 Hyposegmented Neuts Not Reportable 04/05/19 03:30 Hypogranular Neuts Not Reportable 04/05/19 03:30 Not Reportable 04/05/19 03:30 Not Reportable 04/05/19 03:30 Not Reportable 04/05/19 03:30 Not Reportable 04/05/19 03:30 Not Reportable 04/05/19 03:30 Not Reportable 04/05/19 03:30 Consistent w auto 04/05/19 03:30 Not Reportable 04/05/19 03:30 Plt Clumps, EDTA Not Reportable 04/05/19 03:30 Not Reportable 04/05/19 03:30 Not Reportable 04/05/19 03:30 Not Reportable 04/05/19 03:30 Plt Morphology Comment Not Reportable 04/05/19 03:30 RBC Morphology Not Reportable 04/05/19 03:30 Dimorphic RBCs Not Reportable 04/05/19 03:30 Not Reportable 04/05/19 03:30 Not Reportable 04/05/19 03:30 2+ 04/05/19 03:30 2+ 04/05/19 03:30 Not Reportable 04/05/19 03:30 Not Reportable 04/05/19 03:30 Not Reportable 04/05/19 03:30 Not Reportable 04/05/19 03:30 Not Reportable 04/05/19 03:30 Not Reportable 04/05/19 03:30 Not Reportable 04/05/19 03:30 Not Reportable 04/05/19 03:30 Not Reportable 04/05/19 03:30 Not Reportable 04/05/19 03:30 Not Reportable 04/05/19 03:30 Not Reportable 04/05/19 03:30 Not Reportable 04/05/19 03:30 Not Reportable 04/05/19 03:30 Not Reportable 04/05/19 03:30 Acanthocytes (Spur) Not Reportable 04/05/19 03:30 Rouleaux Not Reportable 04/05/19 03:30 Not Reportable 04/05/19 03:30 Not Reportable 04/05/19 03:30 Not Reportable 04/05/19 03:30 Not Reportable 04/05/19 03:30 Hem Pathologist Commnt No 04/05/19 03:30 PT 15.5 Sec. (12.2-14.9) H 04/11/19 04:25 INR 1.26 (0.87-1.13) H 04/11/19 04:25 APTT 50.5 Sec. (24.2-36.6) H 03/30/19 11:15 Heparin Anti-Xa, Unfract Negative (Negative) 03/27/19 13:30 POC ABG pH 7.411 (7.35-7.45) 03/25/19 05:40 POC ABG pCO2 33.3 (35-45) L 03/23/19 05:25 POC ABG pO2 83 (80-105) 03/25/19 05:40 POC ABG HCO3 17.7 (22-26 mml/L) 03/25/19 05:40 POC ABG Total CO2 19 (23-27mmol/L) 03/25/19 05:40 POC ABG O2 Sat 97 03/25/19 05:40 POC ABG Base Excess -7 ((-2) - (+3)mmol/L) 03/25/19 05:40 30 % 03/25/19 05:40 Sodium 136 mmol/L (137-145) L 04/11/19 04:25 Potassium 3.6 mmol/L (3.6-5.0) 04/11/19 04:25 Chloride 100.3 mmol/L (98-107) 04/11/19 04:25 Carbon Dioxide 23 mmol/L (22-30) 04/11/19 04:25 16 mmol/L 04/11/19 04:25 BUN 14 mg/dL (7-17) 04/11/19 04:25 0.6 mg/dL (0.7-1.2) L 04/11/19 04:25 Estimated GFR > 60 ml/min 04/11/19 04:25 23 % 04/11/19 04:25 Glucose 70 mg/dL (65-100) 04/11/19 04:25 POC Glucose 157 (70-105) H 04/12/19 06:47 4.2 % (4-6) 03/20/19 08:23 Lactic Acid 2.00 mmol/L (0.7-2.0) 03/23/19 04:50 Calcium 7.7 mg/dL (8.4-10.2) L 04/11/19 04:25 Phosphorus 2.70 mg/dL (2.5-4.5) D 04/05/19 03:30 Magnesium 2.00 mg/dL (1.7-2.3) 04/05/19 03:30 Iron 32 ug/dL (37-170) L 03/24/19 14:25 TIBC 75 mcg/dL (250-450) L 03/24/19 14:25 448.3 ng/mL (13.0-400.0) H 03/28/19 07:31 0.50 mg/dL (0.1-1.2) 03/29/19 04:40 0.3 mg/dL (0-0.2) H 03/27/19 13:31 0.2 mg/dL 03/27/19 13:31 AST 23 units/L (5-40) 03/29/19 04:40 ALT 9 units/L (7-56) 03/29/19 04:40 103 units/L (35-129) 03/29/19 04:40 1499 units/L (30-135) H 03/19/19 12:59 0.036 ng/mL (0.00-0.029) H 03/22/19 06:10 5.0 g/dL (6.3-8.2) L 03/29/19 04:40 1.4 g/dL (3.9-5) L 03/29/19 04:40 0.4 % 03/29/19 04:40 0.052 g/L (0.200-0.400) L 03/20/19 08:23 Triglycerides 72 mg/dL (2-149) 03/19/19 12:59 Cholesterol 61 mg/dL (50-199) 03/19/19 12:59 22 mg/dL (50-130) L 03/19/19 12:59 31 mg/dL (40-59) L 03/19/19 12:59 1.96 % 03/19/19 12:59 See scanned result 03/27/19 13:30 Vitamin B12 > 2000 pg/mL (211-911) H 03/25/19 10:11 18.61 ng/mL (7.3-26.0) 03/28/19 07:31 TSH 7.810 mlU/mL (0.270-4.200) H 03/22/19 06:10 Free T4 1.21 ng/dL (0.76-1.46) 03/22/19 06:10 PTH Intact 171.6 pg/mL (15-65) H 03/20/19 17:50 Beatrice (Yellow) 04/08/19 19:50 Slightly-cloudy (Clear) 04/08/19 19:50 5.0 (5.0-7.0) 04/08/19 19:50 Ur Specific [place] 1.025 (1.003-1.030) 04/08/19 19:50 100 mg/dl mg/dL (Negative) 04/08/19 19:50 Neg mg/dL (Negative) 04/08/19 19:50 Neg mg/dL (Negative) 04/08/19 19:50 Neg (Negative) 04/08/19 19:50 Neg (Negative) 04/08/19 19:50 Neg (Negative) 04/08/19 19:50 < 2.0 mg/dL (<2.0) 04/08/19 19:50 Ur Leukocyte Esterase Neg (Negative) 04/08/19 19:50 5.0 /HPF (0.0-6.0) 04/08/19 19:50 4.0 /HPF (0.0-6.0) 04/08/19 19:50 U Epithel Cells (Auto) 8.0 /HPF (0-13.0) 04/08/19 19:50 1+ /HPF (Negative) 03/19/19 12:47 Amorphous Crystals Few 04/05/19 13:23 Hyaline Casts 3 /LPF 03/19/19 12:47 Granular Casts 43 /LPF 04/05/19 13:23 Few /HPF 04/08/19 19:50 None seen (None Seen) 03/20/19 16:40 53.7 mg/dL (0.1-20.0) H 03/20/19 16:40 3.8 mg/dL (0.1-34.0) 03/20/19 16:40 Microalb/Creat Ratio 70.7 ug/mg 03/20/19 16:40 116 mmol/L 03/20/19 16:40 36 mg/dL (5-11.8) H 03/20/19 16:40 Vancomycin Trough 23.0 ug/mL (5.0-20.0) H 03/27/19 09:04 Digoxin 2.6 ng/mL (0.9-2.0) H* 03/30/19 04:42 Salicylates < 0.3 mg/dL (2.8-20.0) L 03/19/19 12:59 Acetaminophen < 5.0 ug/mL (10.0-30.0) L 03/19/19 12:59 Heparin-induced Plt Ab Negative (Negative) 03/27/19 13:30 UF Heparin High Dose 0 % Release 03/27/19 13:30 SEMAJ UFH Low Dose 0.1 0 % Release 03/27/19 13:30 SEMAJ UFH Low Dose 0.5 0 % Release 03/27/19 13:30 Blood Type O POSITIVE 04/05/19 06:51 Antibody Screen Negative 04/05/19 06:51 Crossmatch See Detail 04/05/19 06:51 Active Medications - Current Medications Current Medications: Generic Name Dose Route Start Last Admin Trade Name Freq PRN Reason Stop Dose Admin Acetaminophen 650 mg 03/24/19 23:48 04/11/19 09:52 Tylenol FEEDTUBE 650 mg Q6H PRN Administration Pain, Mild (1-3) Albuterol 2.5 mg 03/19/19 23:58 Proventil IH Q3HRT PRN Shortness Of Breath Albuterol/Ipratropium 1 ampul 03/20/19 02:00 04/12/19 08:25 Duoneb *Not For Prn Use* IH 1 ampul Q6HRT YUSUF Administration Amiodarone HCl 200 mg 03/22/19 22:00 04/12/19 09:24 Cordarone PO 200 mg BID YUSUF Administration Lipase/Protease/Amylase 1 each 04/07/19 15:50 Pancreaztiti Sargent 10,500 Unit FEEDTUBE PRN PRN For Clogged Feeding Tube Aspirin 81 mg 03/21/19 10:00 04/12/19 09:24 Baby Aspirin PO 81 mg DAILY YUSUF Administration Budesonide 0.5 mg 03/19/19 23:45 04/12/19 08:25 Pulmicort IH 0.5 mg Q12HRT YUSUF Administration Dextrose 50 ml 03/19/19 23:58 03/21/19 16:29 D50w (25gm) Syringe IV 50 ml PRN PRN Administration Hypoglycemia Famotidine 20 mg 03/22/19 10:00 04/12/19 09:27 Pepcid PO 20 mg BID YUSUF Administration Fentanyl 50 mcg 03/19/19 12:45 04/10/19 15:06 Sublimaze IV 50 mcg Q10MIN PRN Administration ANALGESIA Hydromorphone HCl 0.5 mg 03/19/19 23:58 04/11/19 21:26 Dilaudid IV 0.5 mg Q3H PRN Administration Pain , Severe (7-10) Hydrophilic Ointment 1 applic 03/19/19 12:45 Vaseline Lip Therapy TP Q2HR PRN Dry Lips Fentanyl Citrate 2,000 mcg in 100 mls @ 2.835 mls/hr 03/19/19 14:00 03/21/19 11:33 Fentanyl Drip Premix IV 0 mcg/kg/hr TITR YUSUF 0 mls/hr Titration Protocol 1 MCG/KG/HR Norepinephrine 4 mg in 250 mls @ 7.5 mls/hr 03/25/19 11:00 03/30/19 23:45 Levophed Drip 4 Mg/Ns 250 Ml IV 0 mcg/min TITR YUSUF 0 mls/hr Titration Protocol 2 MCG/MIN Fluconazole 200 mg in 100 mls @ 100 mls/hr 04/08/19 17:00 04/11/19 17:04 Diflucan IV 04/12/19 16:59 100 mls/hr Q24H YUSUF Administration Protocol Linezolid 600 mg in 300 mls @ 300 mls/hr 04/08/19 18:00 04/12/19 06:50 Zyvox 600mg/300ml IV 04/12/19 17:59 Infused Q12H YUSUF Infusion Protocol Sodium Chloride 1,000 mls @ 50 mls/hr 04/11/19 13:00 Nacl 0.9% 1000 Ml IV DIRECT YUSUF Insulin Human Lispro 0 unit 03/20/19 00:00 08/14/19 07:10 Humalog SUB-Q Not Given Q6HR [facility] Protocol Metoclopramide HCl 5 mg 03/20/19 00:12 Reglan IV Q6H PRN Nausea And Vomiting Metoprolol Tartrate 2.5 mg 03/23/19 13:17 03/24/19 21:20 Lopressor IV 2.5 mg Q2HR PRN Administration HR >150 Metoprolol Tartrate 12.5 mg 04/11/19 22:00 04/12/19 09:27 Lopressor PO 12.5 mg BID YUSUF Administration Multi-Ingred Cream/Lotion/Oil/Oint 1 applic 03/19/19 12:45 Artificial Tears Ophth Oint OU Q4HR PRN Dry Eye(s) Ondansetron HCl 4 mg 03/19/19 23:58 Zofran IV Q8H PRN Nausea And Vomiting Promethazine HCl 25 mg 03/19/19 23:58 Phenergan [place] Q6H PRN N/V IF NPO AND NO IV ACCESS Simple Syrup 15 ml 04/07/19 15:50 Simple Syrup FEEDTUBE PRN PRN Hypoglycemia Simple Syrup 30 ml 04/07/19 15:50 Simple Syrup FEEDTUBE PRN PRN Hypoglycemia Sodium Bicarbonate 325 mg 04/07/19 15:50 Sodium Bicarbonate FEEDTUBE PRN PRN For Clogged Feeding Tube Sodium Chloride 10 ml 03/20/19 10:00 04/12/19 09:28 Sodium Chloride Flush Syringe 10 Ml IV 10 ml BID YUSUF Administration Sodium Chloride 10 ml 03/19/19 23:58 04/07/19 10:45 Sodium Chloride Flush Syringe 10 Ml IV 10 ml PRN PRN Administration LINE FLUSH Trimethoprim/Sulfamethoxazole 1 each 04/07/19 14:00 04/12/19 09:26 Bactrim Ds PO 04/14/19 22:01 1 each Q12HR YUSUF Administration Nutrition/Malnutrition Assess - Dietary Evaluation Nutrition/Malnutrition Findings: Nutrition Notes Start: 03/20/19 15:29 Freq: Status: Active Protocol: Document 04/07/19 15:45 RM (Rec: 04/07/19 15:48 RM [id number]) Nutrition Notes Initial or Follow up Reassessment Other Pertinent Diagnosis Hx CVA, dementia, R buttock skin tear Current Diet No diet ordered Labs/Tests Reviewed Pertinent Medications Reviewed Height 5 ft 5 in Weight 63.5 kg [place] Body Weight (kg) 56.81 BMI 23.3 Subjective/Other Information Observed Vital 1.2 infusing at 45 ml/hr. Percent of energy/protein needs met: 93%/100% Burn Absent Trauma Absent #1 Nutrition Diagnosis Inadequate oral intake Diagnosis Progress(for reassessment Continues documentation) Is patient on ventilator? Yes Is Patient Ambulatory and/or Out of Bed No REE-([facility]-confined to bed) 1387.104 Calculation Used for Recommendations [facility] Additional Notes Protein Needs: 75-124g (1.2-2g /kg) Fluid Needs: 1 ml/kcal Nutrition Intervention Nutrition Support: Vital 1.2 at 45 ml/hr Water flush of 100 mls 4 q hrs Kcal 1,296 Protein (gm) 81 Fluid (mL) 876 Goal #1 TF tolerance Goal #2 Continue to meet at least 80% of calorie and protein needs via TF Anticipated Discharge Needs: Unable to determine at this time Follow-Up By: 04/14/19 Additional Comments Follow for stable TF
--- NOTE | 2019-04-12 10:31 | Progress Note ---
Assessment and Plan Cultures/ID related labs: 04/05 BCx - negative 04/04 Sputum - Stenotrophomonas maltophila. 03/27 tracheal aspirate - heavy neutrophils, usual resp maday Blood culture 03/19/2019 negative. Urine culture 03/19/2019 negative. 03/23/2019 tracheal aspirate culture: Usual resp maday 04/05/2019 blood culture no growth so far 04/08/2019 blood culture no growth so far Assessment: 73 y/o female with history of dementia, prior CVA, on home hospice admitted on 03/20/2019 brought by EMS due to altered mental status: 1) Sepsis with septic shock: again with fevers. etiology ? pneumonia ? vulvar abscess/cellulitis ?drug fever v/s DVT related. Repeat UA neg. WBC increased. 2) Bilateral pneumonia: Her radiography is largely unchanged. Her sputum cultures have grown S. maltophila, which is both a common infection in intubated patients as well as a common colonizer of tubes. CXR vaughn patchy pulmonary op acities. On Bactrim. ?fluid overload. 3) Acute encephalopathy: CT head without contrast shows encephalomalacia in the entire right cerebral hemisphere, volume loss in the left cerebral hemisphere, n o acute parenchymal lesion in the brain. 4) Acute respiratory failure: now s/p trach and PEG. on the vent. 5) HA: improved. 6) Persistent fevers - Had initially improved with cessation of antibiotics but now febrile again. 7) DVTs - DVT of RIJ at catheter site as well as R common femoral, and a superficial thrombus in R greater saphenous. IVC filter placed. Recommendations: continue fluconazole and linezolid D5 of 5 for vulvar cellulitis/candidiasis continue Bactrim for Stenotrophomonas coverage, complete 2 more days fevers have returned, unclear etiology. Remains on antibiotics. repeat CBC and CMP ordered for AM Extremely poor prognosis, discussed with Dr. Berkley Quintanilla MD, FACP [facility] ([facility] C: [phone] O: [phone] F: [phone] Subjective Date of service: 04/12/19 Principal diagnosis: anemia - dvt Interval history: Continues to have fevers. Got trach and PEG yesterday. Remains on the vent. Increasing O2 requirements. Objective - Exam Narrative Exam: Physical Exam: Constitutional: awake, doesn't follow commands Head, Ears, Nose: Normocephalic, atraumatic. External ears, nose normal Eyes: Conjunctivae/corneas clear. No icterus. No ptosis. Neck: trach + Cardiovascular: S1, S2 normal. Respiratory: few rhonchi b/l GI: Soft, PEG + bowel sounds normal. No peritoneal signs. Musculoskeletal: B/L pedal edema, foot drop and contractures Skin: No rash or abscess Hem/Lymphatic: No palpable cervical or supraclavicular nodes. No lymphangitis Psych: no agitation Neurological: awake, trach, on vent - Constitutional Vitals: Vital Signs Temp Pulse Resp BP Pulse Ox 100.2 F H 114 H 29 H 136/67 88 04/12/19 08:00 04/12/19 09:27 04/12/19 09:00 04/12/19 09:27 04/12/19 09:00 Temperature -Last 24 Hours Temperature 100.2 F Temperature 100.7 F Temperature 97.7 F Temperature 100.8 F Temperature 99.4 F Temperature 99.2 F Temperature 99.7 F Temperature 100.3 F - Labs CBC & Chem 7: 04/11/19 04:25 04/11/19 04:25 Labs: Abnormal lab results 04/12/19 Range/Units 06:47 POC Glucose 157 H (70-105) - Imaging and cardiology Chest x-ray: report reviewed, image reviewed (b/l diffuse airspace opacities: ARDS v/s pulmonary edema)
[2019-04-12] MEDS ORDERED: LASIX IV ONE (11:00)
[2019-04-12 11:51] LABS: Hematocrit 24.3 % (30.3-42.9); Hemoglobin 7.9 gm/dl (10.1-14.3)
[2019-04-12 11:56] LABS: INR 1.38 (0.87-1.13)
[2019-04-12 11:57] LABS: Partial Thromboplastin Time 33.2 Sec. (24.2-36.6)
[2019-04-12] MEDS: HEPARIN/ 0.45% NACL-25,000 UNIT/500 ML 25,000 UNIT/500 ML BAG IV SCH (11:57)
--- NOTE | 2019-04-12 12:22 | XRay Report ---
CHEST 1 VIEW INDICATION: Hypoxemia. COMPARISON: 04/11/2009 FINDINGS: Support devices: Tracheostomy and right IJ venous catheter remain in good position. Heart: No significant abnormality. Mildly ectatic aorta. Lungs/Pleura: Bilateral infiltrates or pulmonary edema have increased by 20%. No large pleural effusi on or pneumothorax. Additional findings: None. IMPRESSION: Mild increase in the bilateral infiltrates or pulmonary edema. Signer Name: Jesus Snow Jr, MD Signed: 04/12/2019 12:18 PM Workstation Name: [id number]
--- NOTE | 2019-04-12 12:30 | Progress Note ---
Assessment and Plan 73 y/o female found unresponsive now intubated and septic, etiology thought secondary to pneumonia with anemia and thrombocytopenia, and persistent fevers found to have multiple DVT's. 1. POD 1 from trach and peg. Both sites look good. 2. Worsening hypoxemia today, likely from pulmonary edema. Will give lasix and likely will need an additional dose. Unable to see CXR but report reads worsening edema. BP control and increase PEEP on vent. Repeat ABG tonight at 18:00 3. Will likely need LTACH as she continues to fail PSV daily CCT 31 minutes. Subjective Date of service: 04/12/19 Principal diagnosis: anemia - dvt Interval history: Worsening oxygen requirements overnight. Not notified. Bumped up to 100% at one point and now was back down to 60%. PaO2 on Blood gas was low at 53 on 60%. Pt still on 60% but now 8 of peep. Ordered IV lasix as well. BP elevated. Objective Vital Signs - 12hr 04/12/19 04/12/19 04/12/19 01:00 01:04 01:26 Temperature Pulse Rate 106 H 99 H Pulse Rate [ 104 H Anterior Bilateral Throughout] Pulse Rate [ From Monitor] Respiratory 23 Rate Respiratory 25 H Rate [Anterior Bilateral Throughout] Blood Pressure 106/55 106/55 O2 Sat by Pulse 87 94 Oximetry O2 Sat by Pulse Oximetry [ Assessment] 04/12/19 04/12/19 04/12/19 02:00 03:00 04:00 Temperature 100.7 F H Pulse Rate 111 H 104 H 110 H Pulse Rate [ Anterior Bilateral Throughout] Pulse Rate [ From Monitor] Respiratory 24 22 23 Rate Respiratory Rate [Anterior Bilateral Throughout] Blood Pressure 112/59 103/54 118/59 O2 Sat by Pulse 94 Oximetry O2 Sat by Pulse Oximetry [ Assessment] 04/12/19 04/12/19 04/12/19 05:00 05:02 06:00 Temperature Pulse Rate 112 H 112 H Pulse Rate [ Anterior Bilateral Throughout] Pulse Rate [ From Monitor] Respiratory 25 H 25 H Rate Respiratory Rate [Anterior Bilateral Throughout] Blood Pressure 132/62 104/59 O2 Sat by Pulse 96 97 Oximetry O2 Sat by Pulse 95 Oximetry [ Assessment] 04/12/19 04/12/19 04/12/19 06:10 07:00 08:00 Temperature 100.2 F H Pulse Rate 109 H 113 H Pulse Rate [ 106 H Anterior Bilateral Throughout] Pulse Rate [ 110 H 113 H From Monitor] Respiratory 23 30 H 28 H Rate Respiratory 24 Rate [Anterior Bilateral Throughout] Blood Pressure 114/58 131/60 O2 Sat by Pulse 100 95 95 Oximetry O2 Sat by Pulse Oximetry [ Assessment] 04/12/19 04/12/19 04/12/19 09:00 09:27 10:01 Temperature Pulse Rate 116 H 114 H 110 H Pulse Rate [ Anterior Bilateral Throughout] Pulse Rate [ From Monitor] Respiratory 29 H 45 H Rate Respiratory Rate [Anterior Bilateral Throughout] Blood Pressure 136/67 136/67 171/81 O2 Sat by Pulse 88 86 Oximetry O2 Sat by Pulse Oximetry [ Assessment] 04/12/19 04/12/19 11:00 12:00 Temperature 99.6 F Pulse Rate 117 H 117 H Pulse Rate [ Anterior Bilateral Throughout] Pulse Rate [ 109 H From Monitor] Respiratory 38 H 45 H Rate Respiratory Rate [Anterior Bilateral Throughout] Blood Pressure 169/80 149/78 O2 Sat by Pulse 85 88 Oximetry O2 Sat by Pulse Oximetry [ Assessment] Constitutional: other (intubated, critically ill on ventilator, awake) Eyes: non-icteric ENT: other (intubated ) Neck: supple Effort: normal Ascultation: Bilateral: diminished breath sounds, rales (coarse bilat ), other (coarse BS bilaterally) Percussion: Bilateral: not dull, dull Cardiovascular: other (tachy AF, no mrg) Gastrointestinal: normoactive bowel sounds, soft, non-tender, non-distended Integumentary: normal Extremities: anasarca Neurologic: other (awake, alert, L sided hemiparesis, contractures upper extremities) Psychiatric: mood appropriate, affect normal CBC and BMP: 04/12/19 11:30 04/11/19 04:25 ABG, PT/INR, D-dimer: ABG POC ABG pH 7.411 (7.35-7.45) 03/25/19 05:40 POC ABG pO2 83 (80-105) 03/25/19 05:40 POC ABG HCO3 17.7 (22-26 mml/L) 03/25/19 05:40 POC ABG Total CO2 19 (23-27mmol/L) 03/25/19 05:40 POC ABG O2 Sat 97 03/25/19 05:40 PT/INR, D-dimer PT 16.6 Sec. (12.2-14.9) H 04/12/19 11:30 INR 1.38 (0.87-1.13) H 04/12/19 11:30 Abnormal lab findings: Abnormal Labs 03/19/19 03/19/19 03/19/19 12:59 12:59 12:59 WBC RBC 3.44 L Hgb Hct MCV 101 H MCH 34 H MCHC RDW Plt Count 98 L Lymph % (Auto) Mineral % (Auto) Eos % (Auto) Lymph # Mineral # Eos # Seg Neutrophils % Seg Neuts % (Manual) 11.0 L Lymphocytes % (Manual) Monocytes % (Manual) 10.0 H Eosinophils % (Manual) Nucleated RBC % 1.0 H Seg Neutrophils # Seg Neutrophils # Man 0.6 L Lymphocytes # (Manual) Monocytes # (Manual) Eosinophils # (Manual) PT INR APTT POC ABG pH POC ABG pCO2 POC ABG pO2 Sodium 149 H Potassium Chloride 109.4 H Carbon Dioxide BUN 51 H Creatinine 3.2 H Glucose 58 L POC Glucose Lactic Acid 7.60 H* Calcium 7.8 L Phosphorus Magnesium 1.60 L Iron TIBC Ferritin Direct Bilirubin AST 75 H Total Creatine Kinase 1499 H Troponin T 0.109 H* Total Protein 5.2 L Albumin 1.7 L Prealbumin LDL Cholesterol Direct 22 L HDL Cholesterol 31 L Vitamin B12 TSH PTH Intact Urine Creatinine Urine Total Protein Vancomycin Trough Digoxin Salicylates Acetaminophen Crossmatch 03/19/19 03/19/19 03/19/19 12:59 12:59 14:48 WBC RBC Hgb Hct MCV MCH MCHC RDW Plt Count Lymph % (Auto) Mineral % (Auto) Eos % (Auto) Lymph # Mineral # Eos # Seg Neutrophils % Seg Neuts % (Manual) Lymphocytes % (Manual) Monocytes % (Manual) Eosinophils % (Manual) Nucleated RBC % Seg Neutrophils # Seg Neutrophils # Man Lymphocytes # (Manual) Monocytes # (Manual) Eosinophils # (Manual) PT INR APTT POC ABG pH POC ABG pCO2 POC ABG pO2 Sodium Potassium Chloride Carbon Dioxide BUN Creatinine Glucose POC Glucose 44 L Lactic Acid Calcium Phosphorus Magnesium Iron TIBC Ferritin Direct Bilirubin AST Total Creatine Kinase Troponin T Total Protein Albumin Prealbumin LDL Cholesterol Direct HDL Cholesterol Vitamin B12 TSH PTH Intact Urine Creatinine Urine Total Protein Vancomycin Trough Digoxin Salicylates < 0.3 L Acetaminophen < 5.0 L Crossmatch 03/19/19 03/19/19 03/19/19 15:33 15:52 16:26 WBC RBC Hgb Hct MCV MCH MCHC RDW Plt Count Lymph % (Auto) Mineral % (Auto) Eos % (Auto) Lymph # Mineral # Eos # Seg Neutrophils % Seg Neuts % (Manual) Lymphocytes % (Manual) Monocytes % (Manual) Eosinophils % (Manual) Nucleated RBC % Seg Neutrophils # Seg Neutrophils # Man Lymphocytes # (Manual) Monocytes # (Manual) Eosinophils # (Manual) PT INR APTT POC ABG pH POC ABG pCO2 POC ABG pO2 Sodium Potassium Chloride Carbon Dioxide BUN Creatinine Glucose POC Glucose 228 H 231 H Lactic Acid Calcium Phosphorus Magnesium Iron TIBC Ferritin Direct Bilirubin AST Total Creatine Kinase Troponin T Total Protein Albumin Prealbumin LDL Cholesterol Direct HDL Cholesterol Vitamin B12 TSH PTH Intact Urine Creatinine 31.8 H Urine Total Protein Vancomycin Trough Digoxin Salicylates Acetaminophen Crossmatch 03/19/19 03/19/19 03/19/19 16:38 17:14 18:43 WBC RBC Hgb Hct MCV MCH MCHC RDW Plt Count Lymph % (Auto) Mineral % (Auto) Eos % (Auto) Lymph # Mineral # Eos # Seg Neutrophils % Seg Neuts % (Manual) Lymphocytes % (Manual) Monocytes % (Manual) Eosinophils % (Manual) Nucleated RBC % Seg Neutrophils # Seg Neutrophils # Man Lymphocytes # (Manual) Monocytes # (Manual) Eosinophils # (Manual) PT INR APTT POC ABG pH 7.196 L POC ABG pCO2 30.8 L POC ABG pO2 Sodium Potassium Chloride Carbon Dioxide BUN Creatinine Glucose POC Glucose 235 H Lactic Acid 8.10 H* Calcium Phosphorus Magnesium Iron TIBC Ferritin Direct Bilirubin AST Total Creatine Kinase Troponin T Total Protein Albumin Prealbumin LDL Cholesterol Direct HDL Cholesterol Vitamin B12 TSH PTH Intact Urine Creatinine Urine Total Protein Vancomycin Trough Digoxin Salicylates Acetaminophen Crossmatch 03/19/19 03/19/19 03/19/19 18:52 20:00 20:56 WBC RBC Hgb Hct MCV MCH MCHC RDW Plt Count Lymph % (Auto) Mineral % (Auto) Eos % (Auto) Lymph # Mineral # Eos # Seg Neutrophils % Seg Neuts % (Manual) Lymphocytes % (Manual) Monocytes % (Manual) Eosinophils % (Manual) Nucleated RBC % Seg Neutrophils # Seg Neutrophils # Man Lymphocytes # (Manual) Monocytes # (Manual) Eosinophils # (Manual) PT INR APTT POC ABG pH POC ABG pCO2 POC ABG pO2 Sodium Potassium Chloride Carbon Dioxide BUN Creatinine Glucose POC Glucose 240 H 117 H Lactic Acid 5.90 H* Calcium Phosphorus Magnesium Iron TIBC Ferritin Direct Bilirubin AST Total Creatine Kinase Troponin T Total Protein Albumin Prealbumin LDL Cholesterol Direct HDL Cholesterol Vitamin B12 TSH PTH Intact Urine Creatinine Urine Total Protein Vancomycin Trough Digoxin Salicylates Acetaminophen Crossmatch 03/19/19 03/19/19 03/19/19 21:19 22:07 23:00 WBC RBC Hgb Hct MCV MCH MCHC RDW Plt Count Lymph % (Auto) Mineral % (Auto) Eos % (Auto) Lymph # Mineral # Eos # Seg Neutrophils % Seg Neuts % (Manual) Lymphocytes % (Manual) Monocytes % (Manual) Eosinophils % (Manual) Nucleated RBC % Seg Neutrophils # Seg Neutrophils # Man Lymphocytes # (Manual) Monocytes # (Manual) Eosinophils # (Manual) PT INR APTT POC ABG pH POC ABG pCO2 POC ABG pO2 Sodium Potassium Chloride Carbon Dioxide BUN Creatinine Glucose POC Glucose < 40 L 136 H Lactic Acid 6.10 H* Calcium Phosphorus Magnesium Iron TIBC Ferritin Direct Bilirubin AST Total Creatine Kinase Troponin T Total Protein Albumin Prealbumin LDL Cholesterol Direct HDL Cholesterol Vitamin B12 TSH PTH Intact Urine Creatinine Urine Total Protein Vancomycin Trough Digoxin Salicylates Acetaminophen Crossmatch 03/20/19 03/20/19 03/20/19 00:05 01:38 02:23 WBC RBC Hgb Hct MCV MCH MCHC RDW Plt Count Lymph % (Auto) Mineral % (Auto) Eos % (Auto) Lymph # Mineral # Eos # Seg Neutrophils % Seg Neuts % (Manual) Lymphocytes % (Manual) Monocytes % (Manual) Eosinophils % (Manual) Nucleated RBC % Seg Neutrophils # Seg Neutrophils # Man Lymphocytes # (Manual) Monocytes # (Manual) Eosinophils # (Manual) PT INR APTT POC ABG pH POC ABG pCO2 POC ABG pO2 Sodium Potassium Chloride Carbon Dioxide BUN Creatinine Glucose POC Glucose 68 L 153 H 127 H Lactic Acid Calcium Phosphorus Magnesium Iron TIBC Ferritin Direct Bilirubin AST Total Creatine Kinase Troponin T Total Protein Albumin Prealbumin LDL Cholesterol Direct HDL Cholesterol Vitamin B12 TSH PTH Intact Urine Creatinine Urine Total Protein Vancomycin Trough Digoxin Salicylates Acetaminophen Crossmatch 03/20/19 03/20/19 03/20/19 03:12 04:31 04:41 WBC RBC Hgb Hct MCV MCH MCHC RDW Plt Count Lymph % (Auto) Mineral % (Auto) Eos % (Auto) Lymph # Mineral # Eos # Seg Neutrophils % Seg Neuts % (Manual) Lymphocytes % (Manual) Monocytes % (Manual) Eosinophils % (Manual) Nucleated RBC % Seg Neutrophils # Seg Neutrophils # Man Lymphocytes # (Manual) Monocytes # (Manual) Eosinophils # (Manual) PT INR APTT POC ABG pH POC ABG pCO2 POC ABG pO2 53 L 65 L Sodium Potassium Chloride Carbon Dioxide BUN Creatinine Glucose POC Glucose 109 H Lactic Acid Calcium Phosphorus Magnesium Iron TIBC Ferritin Direct Bilirubin AST Total Creatine Kinase Troponin T Total Protein Albumin Prealbumin LDL Cholesterol Direct HDL Cholesterol Vitamin B12 TSH PTH Intact Urine Creatinine Urine Total Protein Vancomycin Trough Digoxin Salicylates Acetaminophen Crossmatch 03/20/19 03/20/19 03/20/19 05:50 07:29 08:14 WBC RBC Hgb Hct MCV MCH MCHC RDW Plt Count Lymph % (Auto) Mineral % (Auto) Eos % (Auto) Lymph # Mineral # Eos # Seg Neutrophils % Seg Neuts % (Manual) Lymphocytes % (Manual) Monocytes % (Manual) Eosinophils % (Manual) Nucleated RBC % Seg Neutrophils # Seg Neutrophils # Man Lymphocytes # (Manual) Monocytes # (Manual) Eosinophils # (Manual) PT INR APTT POC ABG pH POC ABG pCO2 POC ABG pO2 Sodium Potassium Chloride Carbon Dioxide BUN Creatinine Glucose 61 L POC Glucose 47 L 153 H Lactic Acid Calcium Phosphorus Magnesium 1.60 L Iron TIBC Ferritin Direct Bilirubin AST Total Creatine Kinase Troponin T Total Protein Albumin Prealbumin LDL Cholesterol Direct HDL Cholesterol Vitamin B12 TSH PTH Intact Urine Creatinine Urine Total Protein Vancomycin Trough Digoxin Salicylates Acetaminophen Crossmatch 03/20/19 03/20/19 03/20/19 08:23 08:23 10:59 WBC RBC Hgb Hct MCV MCH MCHC RDW Plt Count Lymph % (Auto) Mineral % (Auto) Eos % (Auto) Lymph # Mineral # Eos # Seg Neutrophils % Seg Neuts % (Manual) Lymphocytes % (Manual) Monocytes % (Manual) Eosinophils % (Manual) Nucleated RBC % Seg Neutrophils # Seg Neutrophils # Man Lymphocytes # (Manual) Monocytes # (Manual) Eosinophils # (Manual) PT INR APTT POC ABG pH POC ABG pCO2 POC ABG pO2 Sodium Potassium Chloride Carbon Dioxide BUN Creatinine Glucose 101 H POC Glucose 233 H Lactic Acid 9.70 H* Calcium Phosphorus Magnesium Iron TIBC Ferritin Direct Bilirubin AST Total Creatine Kinase Troponin T Total Protein Albumin Prealbumin 0.052 L LDL Cholesterol Direct HDL Cholesterol Vitamin B12 TSH PTH Intact Urine Creatinine Urine Total Protein Vancomycin Trough Digoxin Salicylates Acetaminophen Crossmatch 03/20/19 03/20/19 03/20/19 12:23 16:10 16:40 WBC RBC Hgb Hct MCV MCH MCHC RDW Plt Count Lymph % (Auto) Mineral % (Auto) Eos % (Auto) Lymph # Mineral # Eos # Seg Neutrophils % Seg Neuts % (Manual) Lymphocytes % (Manual) Monocytes % (Manual) Eosinophils % (Manual) Nucleated RBC % Seg Neutrophils # Seg Neutrophils # Man Lymphocytes # (Manual) Monocytes # (Manual) Eosinophils # (Manual) PT INR APTT POC ABG pH POC ABG pCO2 POC ABG pO2 Sodium Potassium Chloride Carbon Dioxide BUN Creatinine Glucose POC Glucose 135 H 171 H Lactic Acid Calcium Phosphorus Magnesium Iron TIBC Ferritin Direct Bilirubin AST Total Creatine Kinase Troponin T Total Protein Albumin Prealbumin LDL Cholesterol Direct HDL Cholesterol Vitamin B12 TSH PTH Intact Urine Creatinine 53.7 H Urine Total Protein 36 H Vancomycin Trough Digoxin Salicylates Acetaminophen Crossmatch 03/20/19 03/20/19 03/20/19 16:57 17:38 17:50 WBC RBC Hgb Hct MCV MCH MCHC RDW Plt Count Lymph % (Auto) Mineral % (Auto) Eos % (Auto) Lymph # Mineral # Eos # Seg Neutrophils % Seg Neuts % (Manual) Lymphocytes % (Manual) Monocytes % (Manual) Eosinophils % (Manual) Nucleated RBC % Seg Neutrophils # Seg Neutrophils # Man Lymphocytes # (Manual) Monocytes # (Manual) Eosinophils # (Manual) PT INR APTT POC ABG pH POC ABG pCO2 POC ABG pO2 Sodium Potassium Chloride Carbon Dioxide BUN Creatinine Glucose POC Glucose 152 H 147 H Lactic Acid 9.90 H* Calcium Phosphorus Magnesium Iron TIBC Ferritin Direct Bilirubin AST Total Creatine Kinase Troponin T Total Protein Albumin Prealbumin LDL Cholesterol Direct HDL Cholesterol Vitamin B12 TSH PTH Intact Urine Creatinine Urine Total Protein Vancomycin Trough Digoxin Salicylates Acetaminophen Crossmatch 03/20/19 03/20/19 03/20/19 17:50 17:50 17:50 WBC RBC 2.92 L Hgb 10.0 L Hct 29.3 L MCV 100 H MCH 34 H MCHC RDW Plt Count 81 L Lymph % (Auto) Mineral % (Auto) Eos % (Auto) Lymph # Mineral # Eos # Seg Neutrophils % Seg Neuts % (Manual) Lymphocytes % (Manual) Monocytes % (Manual) Eosinophils % (Manual) Nucleated RBC % Seg Neutrophils # Seg Neutrophils # Man Lymphocytes # (Manual) Monocytes # (Manual) Eosinophils # (Manual) PT INR APTT POC ABG pH POC ABG pCO2 POC ABG pO2 Sodium Potassium 2.8 L* D Chloride Carbon Dioxide BUN 30 H Creatinine 1.6 H Glucose 107 H POC Glucose Lactic Acid Calcium 6.9 L Phosphorus 2.00 L Magnesium Iron TIBC Ferritin Direct Bilirubin AST Total Creatine Kinase Troponin T Total Protein Albumin Prealbumin LDL Cholesterol Direct HDL Cholesterol Vitamin B12 TSH PTH Intact 171.6 H Urine Creatinine Urine Total Protein Vancomycin Trough Digoxin Salicylates Acetaminophen Crossmatch 03/20/19 03/21/19 03/21/19 21:12 00:30 04:12 WBC RBC Hgb Hct MCV MCH MCHC RDW Plt Count Lymph % (Auto) Mineral % (Auto) Eos % (Auto) Lymph # Mineral # Eos # Seg Neutrophils % Seg Neuts % (Manual) Lymphocytes % (Manual) Monocytes % (Manual) Eosinophils % (Manual) Nucleated RBC % Seg Neutrophils # Seg Neutrophils # Man Lymphocytes # (Manual) Monocytes # (Manual) Eosinophils # (Manual) PT INR APTT POC ABG pH POC ABG pCO2 POC ABG pO2 Sodium Potassium 3.0 L Chloride Carbon Dioxide 21 L BUN Creatinine 1.4 H Glucose 103 H POC Glucose Lactic Acid 8.70 H* 9.40 H* Calcium 6.8 L Phosphorus Magnesium Iron TIBC Ferritin Direct Bilirubin AST Total Creatine Kinase Troponin T Total Protein Albumin Prealbumin LDL Cholesterol Direct HDL Cholesterol Vitamin B12 TSH PTH Intact Urine Creatinine Urine Total Protein Vancomycin Trough Digoxin Salicylates Acetaminophen Crossmatch 03/21/19 03/21/19 03/21/19 04:12 04:12 04:43 WBC RBC 2.84 L Hgb 9.5 L Hct 28.3 L MCV 100 H MCH 33 H MCHC RDW Plt Count 79 L Lymph % (Auto) Mineral % (Auto) Eos % (Auto) Lymph # Mineral # Eos # Seg Neutrophils % Seg Neuts % (Manual) Lymphocytes % (Manual) Monocytes % (Manual) Eosinophils % (Manual) Nucleated RBC % Seg Neutrophils # Seg Neutrophils # Man Lymphocytes # (Manual) Monocytes # (Manual) Eosinophils # (Manual) PT INR APTT POC ABG pH 7.456 H POC ABG pCO2 POC ABG pO2 Sodium Potassium Chloride Carbon Dioxide BUN Creatinine Glucose POC Glucose Lactic Acid 9.50 H* Calcium Phosphorus Magnesium Iron TIBC Ferritin Direct Bilirubin AST Total Creatine Kinase Troponin T Total Protein Albumin Prealbumin LDL Cholesterol Direct HDL Cholesterol Vitamin B12 TSH PTH Intact Urine Creatinine Urine Total Protein Vancomycin Trough Digoxin Salicylates Acetaminophen Crossmatch 03/21/19 03/21/19 03/21/19 08:06 08:08 10:11 WBC RBC Hgb Hct MCV MCH MCHC RDW Plt Count Lymph % (Auto) Mineral % (Auto) Eos % (Auto) Lymph # Mineral # Eos # Seg Neutrophils % Seg Neuts % (Manual) Lymphocytes % (Manual) Monocytes % (Manual) Eosinophils % (Manual) Nucleated RBC % Seg Neutrophils # Seg Neutrophils # Man Lymphocytes # (Manual) Monocytes # (Manual) Eosinophils # (Manual) PT INR APTT POC ABG pH POC ABG pCO2 POC ABG pO2 Sodium Potassium 3.5 L Chloride Carbon Dioxide BUN 22 H Creatinine 1.3 H Glucose POC Glucose 64 L Lactic Acid 8.00 H* Calcium 7.0 L Phosphorus Magnesium Iron TIBC Ferritin Direct Bilirubin AST Total Creatine Kinase Troponin T Total Protein Albumin Prealbumin LDL Cholesterol Direct HDL Cholesterol Vitamin B12 TSH PTH Intact Urine Creatinine Urine Total Protein Vancomycin Trough Digoxin Salicylates Acetaminophen Crossmatch 03/21/19 03/21/19 03/21/19 11:17 12:17 13:37 WBC RBC Hgb Hct MCV MCH MCHC RDW Plt Count Lymph % (Auto) Mineral % (Auto) Eos % (Auto) Lymph # Mineral # Eos # Seg Neutrophils % Seg Neuts % (Manual) Lymphocytes % (Manual) Monocytes % (Manual) Eosinophils % (Manual) Nucleated RBC % Seg Neutrophils # Seg Neutrophils # Man Lymphocytes # (Manual) Monocytes # (Manual) Eosinophils # (Manual) PT INR APTT POC ABG pH POC ABG pCO2 POC ABG pO2 Sodium Potassium Chloride Carbon Dioxide BUN Creatinine Glucose POC Glucose 173 H 110 H Lactic Acid Calcium Phosphorus Magnesium Iron TIBC Ferritin Direct Bilirubin AST Total Creatine Kinase Troponin T 0.033 H D Total Protein Albumin Prealbumin LDL Cholesterol Direct HDL Cholesterol Vitamin B12 TSH PTH Intact Urine Creatinine Urine Total Protein Vancomycin Trough Digoxin Salicylates Acetaminophen Crossmatch 03/21/19 03/21/19 03/21/19 13:37 17:21 18:52 WBC RBC Hgb Hct MCV MCH MCHC RDW Plt Count Lymph % (Auto) Mineral % (Auto) Eos % (Auto) Lymph # Mineral # Eos # Seg Neutrophils % Seg Neuts % (Manual) Lymphocytes % (Manual) Monocytes % (Manual) Eosinophils % (Manual) Nucleated RBC % Seg Neutrophils # Seg Neutrophils # Man Lymphocytes # (Manual) Monocytes # (Manual) Eosinophils # (Manual) PT INR APTT POC ABG pH POC ABG pCO2 POC ABG pO2 Sodium Potassium Chloride Carbon Dioxide BUN Creatinine Glucose POC Glucose 130 H 107 H Lactic Acid 6.80 H* Calcium Phosphorus Magnesium Iron TIBC Ferritin Direct Bilirubin AST Total Creatine Kinase Troponin T Total Protein Albumin Prealbumin LDL Cholesterol Direct HDL Cholesterol Vitamin B12 TSH PTH Intact Urine Creatinine Urine Total Protein Vancomycin Trough Digoxin Salicylates Acetaminophen Crossmatch 03/21/19 03/21/19 03/21/19 20:20 22:08 23:05 WBC RBC Hgb Hct MCV MCH MCHC RDW Plt Count Lymph % (Auto) Mineral % (Auto) Eos % (Auto) Lymph # Mineral # Eos # Seg Neutrophils % Seg Neuts % (Manual) Lymphocytes % (Manual) Monocytes % (Manual) Eosinophils % (Manual) Nucleated RBC % Seg Neutrophils # Seg Neutrophils # Man Lymphocytes # (Manual) Monocytes # (Manual) Eosinophils # (Manual) PT INR APTT POC ABG pH POC ABG pCO2 POC ABG pO2 Sodium Potassium Chloride Carbon Dioxide BUN Creatinine Glucose POC Glucose 106 H 106 H Lactic Acid Calcium Phosphorus Magnesium Iron TIBC Ferritin Direct Bilirubin AST Total Creatine Kinase Troponin T 0.036 H Total Protein Albumin Prealbumin LDL Cholesterol Direct HDL Cholesterol Vitamin B12 TSH PTH Intact Urine Creatinine Urine Total Protein Vancomycin Trough Digoxin Salicylates Acetaminophen Crossmatch 03/21/19 03/21/19 03/22/19 23:05 23:05 00:14 WBC RBC Hgb Hct MCV MCH MCHC RDW Plt Count Lymph % (Auto) Mineral % (Auto) Eos % (Auto) Lymph # Mineral # Eos # Seg Neutrophils % Seg Neuts % (Manual) Lymphocytes % (Manual) Monocytes % (Manual) Eosinophils % (Manual) Nucleated RBC % Seg Neutrophils # Seg Neutrophils # Man Lymphocytes # (Manual) Monocytes # (Manual) Eosinophils # (Manual) PT INR APTT POC ABG pH POC ABG pCO2 POC ABG pO2 Sodium Potassium Chloride Carbon Dioxide BUN Creatinine Glucose POC Glucose 122 H 109 H Lactic Acid 7.00 H* Calcium Phosphorus Magnesium Iron TIBC Ferritin Direct Bilirubin AST Total Creatine Kinase Troponin T Total Protein Albumin Prealbumin LDL Cholesterol Direct HDL Cholesterol Vitamin B12 TSH PTH Intact Urine Creatinine Urine Total Protein Vancomycin Trough Digoxin Salicylates Acetaminophen Crossmatch 03/22/19 03/22/19 03/22/19 03:10 04:02 05:11 WBC RBC Hgb Hct MCV MCH MCHC RDW Plt Count Lymph % (Auto) Mineral % (Auto) Eos % (Auto) Lymph # Mineral # Eos # Seg Neutrophils % Seg Neuts % (Manual) Lymphocytes % (Manual) Monocytes % (Manual) Eosinophils % (Manual) Nucleated RBC % Seg Neutrophils # Seg Neutrophils # Man Lymphocytes # (Manual) Monocytes # (Manual) Eosinophils # (Manual) PT INR APTT POC ABG pH 7.487 H POC ABG pCO2 POC ABG pO2 67 L Sodium Potassium Chloride Carbon Dioxide BUN Creatinine Glucose POC Glucose 114 H 112 H Lactic Acid Calcium Phosphorus Magnesium Iron TIBC Ferritin Direct Bilirubin AST Total Creatine Kinase Troponin T Total Protein Albumin Prealbumin LDL Cholesterol Direct HDL Cholesterol Vitamin B12 TSH PTH Intact Urine Creatinine Urine Total Protein Vancomycin Trough Digoxin Salicylates Acetaminophen Crossmatch 03/22/19 03/22/19 03/22/19 06:06 06:10 06:10 WBC RBC Hgb Hct MCV MCH MCHC RDW Plt Count Lymph % (Auto) Mineral % (Auto) Eos % (Auto) Lymph # Mineral # Eos # Seg Neutrophils % Seg Neuts % (Manual) Lymphocytes % (Manual) Monocytes % (Manual) Eosinophils % (Manual) Nucleated RBC % Seg Neutrophils # Seg Neutrophils # Man Lymphocytes # (Manual) Monocytes # (Manual) Eosinophils # (Manual) PT INR APTT POC ABG pH POC ABG pCO2 POC ABG pO2 Sodium Potassium 3.0 L Chloride Carbon Dioxide BUN Creatinine Glucose POC Glucose 115 H Lactic Acid Calcium 7.0 L Phosphorus Magnesium Iron TIBC Ferritin Direct Bilirubin AST Total Creatine Kinase Troponin T 0.036 H Total Protein Albumin Prealbumin LDL Cholesterol Direct HDL Cholesterol Vitamin B12 TSH PTH Intact Urine Creatinine Urine Total Protein Vancomycin Trough Digoxin Salicylates Acetaminophen Crossmatch 03/22/19 03/22/19 03/22/19 06:10 06:10 11:59 WBC RBC Hgb Hct MCV MCH MCHC RDW Plt Count Lymph % (Auto) Mineral % (Auto) Eos % (Auto) Lymph # Mineral # Eos # Seg Neutrophils % Seg Neuts % (Manual) Lymphocytes % (Manual) Monocytes % (Manual) Eosinophils % (Manual) Nucleated RBC % Seg Neutrophils # Seg Neutrophils # Man Lymphocytes # (Manual) Monocytes # (Manual) Eosinophils # (Manual) PT INR APTT POC ABG pH POC ABG pCO2 POC ABG pO2 Sodium Potassium Chloride Carbon Dioxide BUN Creatinine Glucose POC Glucose Lactic Acid 4.80 H* 3.80 H* Calcium Phosphorus Magnesium Iron TIBC Ferritin Direct Bilirubin AST Total Creatine Kinase Troponin T Total Protein Albumin Prealbumin LDL Cholesterol Direct HDL Cholesterol Vitamin B12 TSH 7.810 H PTH Intact Urine Creatinine Urine Total Protein Vancomycin Trough Digoxin Salicylates Acetaminophen Crossmatch 03/22/19 03/22/19 03/22/19 13:45 13:45 13:45 WBC RBC Hgb 8.3 L Hct 24.5 L MCV MCH MCHC RDW Plt Count 56 L Lymph % (Auto) Mineral % (Auto) Eos % (Auto) Lymph # Mineral # Eos # Seg Neutrophils % Seg Neuts % (Manual) Lymphocytes % (Manual) Monocytes % (Manual) Eosinophils % (Manual) Nucleated RBC % Seg Neutrophils # Seg Neutrophils # Man Lymphocytes # (Manual) Monocytes # (Manual) Eosinophils # (Manual) PT 21.4 H INR 1.90 H APTT 43.2 H POC ABG pH POC ABG pCO2 POC ABG pO2 Sodium Potassium Chloride Carbon Dioxide BUN Creatinine Glucose POC Glucose Lactic Acid 3.50 H* Calcium Phosphorus Magnesium Iron TIBC Ferritin Direct Bilirubin AST Total Creatine Kinase Troponin T Total Protein Albumin Prealbumin LDL Cholesterol Direct HDL Cholesterol Vitamin B12 TSH PTH Intact Urine Creatinine Urine Total Protein Vancomycin Trough Digoxin Salicylates Acetaminophen Crossmatch 03/22/19 03/23/19 03/23/19 22:20 01:06 04:50 WBC 12.1 H RBC 2.36 L Hgb 7.7 L Hct 22.9 L MCV MCH 33 H MCHC RDW Plt Count 37 L Lymph % (Auto) [place]eral % (Auto) Eos % (Auto) Lymph # [place]eral # Eos # Seg Neutrophils % Seg Neuts % (Manual) 83.0 H Lymphocytes % (Manual) 8.0 L Monocytes % (Manual) Eosinophils % (Manual) Nucleated RBC % Seg Neutrophils # Seg Neutrophils # Man 10.0 H Lymphocytes # (Manual) 1.0 L Monocytes # (Manual) Eosinophils # (Manual) PT INR APTT POC ABG pH POC ABG pCO2 POC ABG pO2 Sodium Potassium Chloride Carbon Dioxide BUN Creatinine Glucose POC Glucose Lactic Acid 3.60 H* 2.70 H* Calcium Phosphorus Magnesium Iron TIBC Ferritin Direct Bilirubin AST Total Creatine Kinase Troponin T Total Protein Albumin Prealbumin LDL Cholesterol Direct HDL Cholesterol Vitamin B12 TSH PTH Intact Urine Creatinine Urine Total Protein Vancomycin Trough Digoxin Salicylates Acetaminophen Crossmatch 03/23/19 03/23/19 03/23/19 04:50 05:25 05:53 WBC RBC Hgb Hct MCV MCH MCHC RDW Plt Count Lymph % (Auto) [place]eral % (Auto) Eos % (Auto) Lymph # [place] # Eos # Seg Neutrophils % Seg Neuts % (Manual) Lymphocytes % (Manual) Monocytes % (Manual) Eosinophils % (Manual) Nucleated RBC % Seg Neutrophils # Seg Neutrophils # Man Lymphocytes # (Manual) Monocytes # (Manual) Eosinophils # (Manual) PT INR APTT POC ABG pH POC ABG pCO2 33.3 L POC ABG pO2 Sodium Potassium 3.5 L Chloride 108.3 H Carbon Dioxide BUN Creatinine Glucose POC Glucose 68 L Lactic Acid Calcium 7.3 L Phosphorus Magnesium Iron TIBC Ferritin Direct Bilirubin AST Total Creatine Kinase Troponin T Total Protein Albumin Prealbumin LDL Cholesterol Direct HDL Cholesterol Vitamin B12 TSH PTH Intact Urine Creatinine Urine Total Protein Vancomycin Trough Digoxin Salicylates Acetaminophen Crossmatch 03/24/19 03/24/19 03/24/19 03:26 05:50 05:57 WBC RBC Hgb Hct MCV MCH MCHC RDW Plt Count Lymph % (Auto) [place]eral % (Auto) Eos % (Auto) Lymph # [place] # Eos # Seg Neutrophils % Seg Neuts % (Manual) Lymphocytes % (Manual) Monocytes % (Manual) Eosinophils % (Manual) Nucleated RBC % Seg Neutrophils # Seg Neutrophils # Man Lymphocytes # (Manual) Monocytes # (Manual) Eosinophils # (Manual) PT INR APTT POC ABG pH POC ABG pCO2 POC ABG pO2 78 L Sodium Potassium 3.4 L Chloride 116.5 H Carbon Dioxide 21 L BUN Creatinine 0.5 L Glucose 105 H POC Glucose 127 H Lactic Acid Calcium 6.4 L Phosphorus Magnesium Iron TIBC Ferritin Direct Bilirubin AST Total Creatine Kinase Troponin T Total Protein Albumin Prealbumin LDL Cholesterol Direct HDL Cholesterol Vitamin B12 TSH PTH Intact Urine Creatinine Urine Total Protein Vancomycin Trough Digoxin Salicylates Acetaminophen Crossmatch 03/24/19 03/24/19 03/24/19 06:00 11:30 12:25 WBC 13.6 H RBC 2.08 L Hgb 6.9 L Hct 20.5 L MCV 99 H MCH 33 H MCHC RDW Plt Count 50 L Lymph % (Auto) 8.1 L [place] % (Auto) 10.0 H Eos % (Auto) Lymph # 1.1 L [place] # 1.4 H Eos # Seg Neutrophils % 80.7 H Seg Neuts % (Manual) Lymphocytes % (Manual) Monocytes % (Manual) Eosinophils % (Manual) Nucleated RBC % Seg Neutrophils # 11.0 H Seg Neutrophils # Man Lymphocytes # (Manual) Monocytes # (Manual) Eosinophils # (Manual) PT INR APTT POC ABG pH POC ABG pCO2 POC ABG pO2 Sodium Potassium Chloride Carbon Dioxide BUN Creatinine Glucose POC Glucose 111 H Lactic Acid Calcium Phosphorus Magnesium Iron TIBC Ferritin Direct Bilirubin AST Total Creatine Kinase Troponin T Total Protein Albumin Prealbumin LDL Cholesterol Direct HDL Cholesterol Vitamin B12 TSH PTH Intact Urine Creatinine Urine Total Protein Vancomycin Trough Digoxin Salicylates Acetaminophen Crossmatch See Detail 03/24/19 03/25/19 03/25/19 14:25 05:20 10:00 WBC 13.4 H RBC 2.54 L Hgb 8.1 L Hct 24.3 L MCV MCH MCHC RDW 17.3 H Plt Count 44 L Lymph % (Auto) [place] % (Auto) Eos % (Auto) Lymph # [place] # Eos # Seg Neutrophils % Seg Neuts % (Manual) Lymphocytes % (Manual) Monocytes % (Manual) Eosinophils % (Manual) Nucleated RBC % Seg Neutrophils # Seg Neutrophils # Man Lymphocytes # (Manual) Monocytes # (Manual) Eosinophils # (Manual) PT INR APTT POC ABG pH POC ABG pCO2 POC ABG pO2 Sodium Potassium Chloride Carbon Dioxide BUN Creatinine Glucose POC Glucose 111 H Lactic Acid Calcium Phosphorus Magnesium Iron 32 L TIBC 75 L Ferritin Direct Bilirubin AST Total Creatine Kinase Troponin T Total Protein Albumin Prealbumin LDL Cholesterol Direct HDL Cholesterol Vitamin B12 TSH PTH Intact Urine Creatinine Urine Total Protein Vancomycin Trough Digoxin Salicylates Acetaminophen Crossmatch 03/25/19 03/25/19 03/25/19 10:11 10:11 23:11 WBC RBC Hgb Hct MCV MCH MCHC RDW Plt Count Lymph % (Auto) [place]eral % (Auto) Eos % (Auto) Lymph # [place] # Eos # Seg Neutrophils % Seg Neuts % (Manual) Lymphocytes % (Manual) Monocytes % (Manual) Eosinophils % (Manual) Nucleated RBC % Seg Neutrophils # Seg Neutrophils # Man Lymphocytes # (Manual) Monocytes # (Manual) Eosinophils # (Manual) PT INR APTT POC ABG pH POC ABG pCO2 POC ABG pO2 Sodium Potassium Chloride 112.0 H Carbon Dioxide BUN 20 H Creatinine 0.6 L Glucose POC Glucose 112 H Lactic Acid Calcium 7.2 L Phosphorus Magnesium Iron TIBC Ferritin Direct Bilirubin AST Total Creatine Kinase Troponin T Total Protein Albumin Prealbumin LDL Cholesterol Direct HDL Cholesterol Vitamin B12 > 2000 H TSH PTH Intact Urine Creatinine Urine Total Protein Vancomycin Trough Digoxin Salicylates Acetaminophen Crossmatch 03/26/19 03/26/19 03/26/19 05:00 05:00 05:16 WBC 14.4 H RBC 2.74 L Hgb 8.9 L Hct 25.7 L MCV MCH 33 H MCHC 35 H RDW 16.9 H Plt Count 60 L Lymph % (Auto) [place] % (Auto) Eos % (Auto) Lymph # [place] # Eos # Seg Neutrophils % Seg Neuts % (Manual) 83.0 H Lymphocytes % (Manual) 5.0 L Monocytes % (Manual) Eosinophils % (Manual) 5.0 H Nucleated RBC % 1.0 H Seg Neutrophils # Seg Neutrophils # Man 12.0 H Lymphocytes # (Manual) 0.7 L Monocytes # (Manual) 0.9 H Eosinophils # (Manual) 0.7 H PT INR APTT POC ABG pH POC ABG pCO2 POC ABG pO2 Sodium Potassium 3.1 L Chloride 110.4 H Carbon Dioxide BUN 22 H Creatinine Glucose 101 H POC Glucose 114 H Lactic Acid Calcium 7.4 L Phosphorus Magnesium Iron TIBC Ferritin Direct Bilirubin AST Total Creatine Kinase Troponin T Total Protein Albumin Prealbumin LDL Cholesterol Direct HDL Cholesterol Vitamin B12 TSH PTH Intact Urine Creatinine Urine Total Protein Vancomycin Trough Digoxin Salicylates Acetaminophen Crossmatch 03/26/19 03/27/19 03/27/19 11:55 09:04 09:04 WBC RBC Hgb Hct MCV MCH MCHC RDW Plt Count Lymph % (Auto) [place]eral % (Auto) Eos % (Auto) Lymph # [place] # Eos # Seg Neutrophils % Seg Neuts % (Manual) Lymphocytes % (Manual) Monocytes % (Manual) Eosinophils % (Manual) Nucleated RBC % Seg Neutrophils # Seg Neutrophils # Man Lymphocytes # (Manual) Monocytes # (Manual) Eosinophils # (Manual) PT INR APTT POC ABG pH POC ABG pCO2 POC ABG pO2 Sodium Potassium 3.2 L Chloride Carbon Dioxide BUN 22 H Creatinine Glucose POC Glucose 121 H Lactic Acid Calcium 7.7 L Phosphorus Magnesium Iron TIBC Ferritin Direct Bilirubin AST Total Creatine Kinase Troponin T Total Protein Albumin Prealbumin LDL Cholesterol Direct HDL Cholesterol Vitamin B12 TSH PTH Intact Urine Creatinine Urine Total Protein Vancomycin Trough 23.0 H Digoxin Salicylates Acetaminophen Crossmatch 03/27/19 03/27/19 03/27/19 09:04 13:31 14:04 WBC 14.8 H RBC 2.52 L Hgb 8.0 L 8.3 L Hct 24.0 L 25.3 L MCV MCH MCHC RDW 17.0 H Plt Count 89 L 91 L Lymph % (Auto) Mineral % (Auto) 8.8 H Eos % (Auto) Lymph # [place] # 1.3 H Eos # Seg Neutrophils % 70.7 H Seg Neuts % (Manual) Lymphocytes % (Manual) Monocytes % (Manual) Eosinophils % (Manual) Nucleated RBC % Seg Neutrophils # 10.5 H Seg Neutrophils # Man Lymphocytes # (Manual) Monocytes # (Manual) Eosinophils # (Manual) PT INR APTT POC ABG pH POC ABG pCO2 POC ABG pO2 Sodium Potassium Chloride Carbon Dioxide BUN Creatinine Glucose POC Glucose Lactic Acid Calcium Phosphorus Magnesium Iron TIBC Ferritin Direct Bilirubin 0.3 H AST Total Creatine Kinase Troponin T Total Protein 4.9 L Albumin 1.3 L Prealbumin LDL Cholesterol Direct HDL Cholesterol Vitamin B12 TSH PTH Intact Urine Creatinine Urine Total Protein Vancomycin Trough Digoxin Salicylates Acetaminophen Crossmatch 03/27/19 03/27/19 03/28/19 14:04 23:51 01:05 WBC 14.4 H RBC 2.44 L Hgb 8.0 L Hct 24.5 L MCV 100 H MCH 33 H MCHC RDW 18.5 H Plt Count 86 L Lymph % (Auto) [place] % (Auto) Eos % (Auto) Lymph # [place] # Eos # Seg Neutrophils % Seg Neuts % (Manual) 84.0 H Lymphocytes % (Manual) 10.0 L Monocytes % (Manual) Eosinophils % (Manual) Nucleated RBC % Seg Neutrophils # Seg Neutrophils # Man 12.1 H Lymphocytes # (Manual) Monocytes # (Manual) Eosinophils # (Manual) PT 21.4 H INR 1.90 H APTT 42.2 H POC ABG pH POC ABG pCO2 POC ABG pO2 Sodium Potassium Chloride Carbon Dioxide BUN Creatinine Glucose POC Glucose 130 H Lactic Acid Calcium Phosphorus Magnesium Iron TIBC Ferritin Direct Bilirubin AST Total Creatine Kinase Troponin T Total Protein Albumin Prealbumin LDL Cholesterol Direct HDL Cholesterol Vitamin B12 TSH PTH Intact Urine Creatinine Urine Total Protein Vancomycin Trough Digoxin Salicylates Acetaminophen Crossmatch 03/28/19 03/28/19 03/28/19 02:51 04:45 07:31 WBC RBC Hgb Hct MCV MCH MCHC RDW Plt Count Lymph % (Auto) [place]eral % (Auto) Eos % (Auto) Lymph # [place] # Eos # Seg Neutrophils % Seg Neuts % (Manual) Lymphocytes % (Manual) Monocytes % (Manual) Eosinophils % (Manual) Nucleated RBC % Seg Neutrophils # Seg Neutrophils # Man Lymphocytes # (Manual) Monocytes # (Manual) Eosinophils # (Manual) PT INR APTT 75.0 H* POC ABG pH POC ABG pCO2 POC ABG pO2 Sodium Potassium Chloride Carbon Dioxide BUN 22 H Creatinine Glucose POC Glucose Lactic Acid Calcium 7.8 L Phosphorus Magnesium Iron TIBC Ferritin 448.3 H Direct Bilirubin AST Total Creatine Kinase Troponin T Total Protein Albumin Prealbumin LDL Cholesterol Direct HDL Cholesterol Vitamin B12 TSH PTH Intact Urine Creatinine Urine Total Protein Vancomycin Trough Digoxin Salicylates Acetaminophen Crossmatch 03/28/19 03/29/19 03/29/19 14:30 04:40 04:40 WBC RBC 2.17 L Hgb 7.1 L Hct 20.8 L MCV MCH 33 H MCHC RDW 17.1 H Plt Count 122 L Lymph % (Auto) [place] % (Auto) Eos % (Auto) Lymph # [place] # Eos # Seg Neutrophils % Seg Neuts % (Manual) Lymphocytes % (Manual) Monocytes % (Manual) Eosinophils % (Manual) Nucleated RBC % Seg Neutrophils # Seg Neutrophils # Man Lymphocytes # (Manual) Monocytes # (Manual) Eosinophils # (Manual) PT INR APTT 70.3 H* POC ABG pH POC ABG pCO2 POC ABG pO2 Sodium Potassium Chloride Carbon Dioxide 31 H BUN 22 H Creatinine 0.5 L Glucose POC Glucose Lactic Acid Calcium 8.0 L Phosphorus Magnesium Iron TIBC Ferritin Direct Bilirubin AST Total Creatine Kinase Troponin T Total Protein 5.0 L Albumin 1.4 L Prealbumin LDL Cholesterol Direct HDL Cholesterol Vitamin B12 TSH PTH Intact Urine Creatinine Urine Total Protein Vancomycin Trough Digoxin Salicylates Acetaminophen Crossmatch 03/29/19 03/29/19 03/29/19 04:40 04:40 11:50 WBC RBC Hgb Hct MCV MCH MCHC RDW Plt Count Lymph % (Auto) [place]eral % (Auto) Eos % (Auto) Lymph # [place] # Eos # Seg Neutrophils % Seg Neuts % (Manual) Lymphocytes % (Manual) Monocytes % (Manual) Eosinophils % (Manual) Nucleated RBC % Seg Neutrophils # Seg Neutrophils # Man Lymphocytes # (Manual) Monocytes # (Manual) Eosinophils # (Manual) PT INR APTT 71.8 H* POC ABG pH POC ABG pCO2 POC ABG pO2 Sodium Potassium Chloride Carbon Dioxide BUN Creatinine Glucose POC Glucose 118 H Lactic Acid Calcium Phosphorus Magnesium Iron TIBC Ferritin Direct Bilirubin AST Total Creatine Kinase Troponin T Total Protein Albumin Prealbumin LDL Cholesterol Direct HDL Cholesterol Vitamin B12 TSH PTH Intact Urine Creatinine Urine Total Protein Vancomycin Trough Digoxin 3.5 H* Salicylates Acetaminophen Crossmatch 03/29/19 03/29/19 03/29/19 16:20 16:20 21:10 WBC RBC Hgb Hct MCV MCH MCHC RDW Plt Count Lymph % (Auto) [place] % (Auto) Eos % (Auto) Lymph # [place] # Eos # Seg Neutrophils % Seg Neuts % (Manual) Lymphocytes % (Manual) Monocytes % (Manual) Eosinophils % (Manual) Nucleated RBC % Seg Neutrophils # Seg Neutrophils # Man Lymphocytes # (Manual) Monocytes # (Manual) Eosinophils # (Manual) PT INR APTT 61.5 H* 112.6 H* POC ABG pH POC ABG pCO2 POC ABG pO2 Sodium Potassium Chloride Carbon Dioxide BUN Creatinine Glucose POC Glucose Lactic Acid Calcium Phosphorus Magnesium Iron TIBC Ferritin Direct Bilirubin AST Total Creatine Kinase Troponin T Total Protein Albumin Prealbumin LDL Cholesterol Direct HDL Cholesterol Vitamin B12 TSH PTH Intact Urine Creatinine Urine Total Protein Vancomycin Trough Digoxin 2.6 H* Salicylates Acetaminophen Crossmatch 03/29/19 03/30/19 03/30/19 22:30 04:42 04:42 WBC RBC Hgb 6.4 L Hct 18.9 L* MCV MCH MCHC RDW Plt Count Lymph % (Auto) [place]eral % (Auto) Eos % (Auto) Lymph # [place] # Eos # Seg Neutrophils % Seg Neuts % (Manual) Lymphocytes % (Manual) Monocytes % (Manual) Eosinophils % (Manual) Nucleated RBC % Seg Neutrophils # Seg Neutrophils # Man Lymphocytes # (Manual) Monocytes # (Manual) Eosinophils # (Manual) PT INR APTT 103.8 H* POC ABG pH POC ABG pCO2 POC ABG pO2 Sodium Potassium Chloride Carbon Dioxide BUN Creatinine Glucose POC Glucose Lactic Acid Calcium Phosphorus Magnesium Iron TIBC Ferritin Direct Bilirubin AST Total Creatine Kinase Troponin T Total Protein Albumin Prealbumin LDL Cholesterol Direct HDL Cholesterol Vitamin B12 TSH PTH Intact Urine Creatinine Urine Total Protein Vancomycin Trough Digoxin 2.6 H* Salicylates Acetaminophen Crossmatch 03/30/19 03/30/19 03/30/19 07:04 07:58 11:15 WBC RBC 2.66 L Hgb 8.5 L Hct 25.3 L D MCV MCH MCHC RDW 17.4 H Plt Count Lymph % (Auto) [place]eral % (Auto) Eos % (Auto) Lymph # [place] # Eos # Seg Neutrophils % Seg Neuts % (Manual) Lymphocytes % (Manual) Monocytes % (Manual) Eosinophils % (Manual) Nucleated RBC % Seg Neutrophils # Seg Neutrophils # Man Lymphocytes # (Manual) Monocytes # (Manual) Eosinophils # (Manual) PT INR APTT 50.5 H POC ABG pH POC ABG pCO2 POC ABG pO2 Sodium Potassium Chloride Carbon Dioxide BUN Creatinine Glucose POC Glucose Lactic Acid Calcium Phosphorus Magnesium Iron TIBC Ferritin Direct Bilirubin AST Total Creatine Kinase Troponin T Total Protein Albumin Prealbumin LDL Cholesterol Direct HDL Cholesterol Vitamin B12 TSH PTH Intact Urine Creatinine Urine Total Protein Vancomycin Trough Digoxin Salicylates Acetaminophen Crossmatch See Detail 03/30/19 03/30/19 03/30/19 11:36 17:40 22:51 WBC RBC 2.48 L Hgb 7.9 L Hct 23.9 L MCV MCH MCHC RDW 17.7 H Plt Count Lymph % (Auto) [place] % (Auto) Eos % (Auto) Lymph # [place] # Eos # Seg Neutrophils % Seg Neuts % (Manual) Lymphocytes % (Manual) Monocytes % (Manual) Eosinophils % (Manual) Nucleated RBC % Seg Neutrophils # Seg Neutrophils # Man Lymphocytes # (Manual) Monocytes # (Manual) Eosinophils # (Manual) PT INR APTT POC ABG pH POC ABG pCO2 POC ABG pO2 Sodium Potassium Chloride Carbon Dioxide BUN Creatinine Glucose POC Glucose 129 H 112 H Lactic Acid Calcium Phosphorus Magnesium Iron TIBC Ferritin Direct Bilirubin AST Total Creatine Kinase Troponin T Total Protein Albumin Prealbumin LDL Cholesterol Direct HDL Cholesterol Vitamin B12 TSH PTH Intact Urine Creatinine Urine Total Protein Vancomycin Trough Digoxin Salicylates Acetaminophen Crossmatch 03/30/19 03/31/19 03/31/19 23:47 05:00 11:35 WBC RBC Hgb 8.0 L Hct 23.7 L MCV MCH MCHC RDW Plt Count Lymph % (Auto) [place] % (Auto) Eos % (Auto) Lymph # [place] # Eos # Seg Neutrophils % Seg Neuts % (Manual) Lymphocytes % (Manual) Monocytes % (Manual) Eosinophils % (Manual) Nucleated RBC % Seg Neutrophils # Seg Neutrophils # Man Lymphocytes # (Manual) Monocytes # (Manual) Eosinophils # (Manual) PT INR APTT POC ABG pH POC ABG pCO2 POC ABG pO2 Sodium Potassium Chloride Carbon Dioxide BUN Creatinine Glucose POC Glucose 112 H 106 H Lactic Acid Calcium Phosphorus Magnesium Iron TIBC Ferritin Direct Bilirubin AST Total Creatine Kinase Troponin T Total Protein Albumin Prealbumin LDL Cholesterol Direct HDL Cholesterol Vitamin B12 TSH PTH Intact Urine Creatinine Urine Total Protein Vancomycin Trough Digoxin Salicylates Acetaminophen Crossmatch 04/01/19 04/02/19 04/03/19 11:38 08:33 06:15 WBC RBC 2.11 L Hgb 7.8 L 6.8 L Hct 23.1 L 20.5 L MCV 98 H MCH MCHC RDW 17.6 H Plt Count Lymph % (Auto) Mineral % (Auto) 12.1 H Eos % (Auto) 7.4 H Lymph # [place] # Eos # Seg Neutrophils % Seg Neuts % (Manual) Lymphocytes % (Manual) Monocytes % (Manual) Eosinophils % (Manual) Nucleated RBC % Seg Neutrophils # Seg Neutrophils # Man Lymphocytes # (Manual) Monocytes # (Manual) Eosinophils # (Manual) PT INR APTT POC ABG pH POC ABG pCO2 POC ABG pO2 Sodium Potassium Chloride Carbon Dioxide BUN Creatinine Glucose POC Glucose 136 H Lactic Acid Calcium Phosphorus Magnesium Iron TIBC Ferritin Direct Bilirubin AST Total Creatine Kinase Troponin T Total Protein Albumin Prealbumin LDL Cholesterol Direct HDL Cholesterol Vitamin B12 TSH PTH Intact Urine Creatinine Urine Total Protein Vancomycin Trough Digoxin Salicylates Acetaminophen Crossmatch 04/03/19 04/04/19 04/04/19 08:22 05:20 05:20 WBC RBC 2.27 L Hgb 7.3 L 7.3 L Hct 21.9 L 22.0 L MCV MCH MCHC RDW 16.8 H Plt Count Lymph % (Auto) Mineral % (Auto) 12.2 H Eos % (Auto) 6.6 H Lymph # [place] # 1.0 H Eos # 0.5 H Seg Neutrophils % Seg Neuts % (Manual) Lymphocytes % (Manual) Monocytes % (Manual) Eosinophils % (Manual) Nucleated RBC % Seg Neutrophils # Seg Neutrophils # Man Lymphocytes # (Manual) Monocytes # (Manual) Eosinophils # (Manual) PT INR APTT POC ABG pH POC ABG pCO2 POC ABG pO2 Sodium Potassium Chloride Carbon Dioxide BUN Creatinine 0.4 L Glucose POC Glucose Lactic Acid Calcium 7.9 L Phosphorus 2.20 L Magnesium 1.40 L Iron TIBC Ferritin Direct Bilirubin AST Total Creatine Kinase Troponin T Total Protein Albumin Prealbumin LDL Cholesterol Direct HDL Cholesterol Vitamin B12 TSH PTH Intact Urine Creatinine Urine Total Protein Vancomycin Trough Digoxin Salicylates Acetaminophen Crossmatch 04/05/19 04/05/19 04/05/19 03:30 03:30 06:51 WBC RBC 2.09 L Hgb 6.7 L Hct 20.1 L MCV MCH MCHC RDW 16.6 H Plt Count Lymph % (Auto) Mineral % (Auto) 12.6 H Eos % (Auto) 6.2 H Lymph # [place] # 1.0 H Eos # 0.5 H Seg Neutrophils % Seg Neuts % (Manual) Lymphocytes % (Manual) Monocytes % (Manual) Eosinophils % (Manual) Nucleated RBC % Seg Neutrophils # Seg Neutrophils # Man Lymphocytes # (Manual) Monocytes # (Manual) Eosinophils # (Manual) PT INR APTT POC ABG pH POC ABG pCO2 POC ABG pO2 Sodium Potassium Chloride Carbon Dioxide BUN Creatinine 0.4 L Glucose POC Glucose Lactic Acid Calcium 7.6 L Phosphorus Magnesium Iron TIBC Ferritin Direct Bilirubin AST Total Creatine Kinase Troponin T Total Protein Albumin Prealbumin LDL Cholesterol Direct HDL Cholesterol Vitamin B12 TSH PTH Intact Urine Creatinine Urine Total Protein Vancomycin Trough Digoxin Salicylates Acetaminophen Crossmatch See Detail 04/05/19 04/05/19 04/06/19 13:07 23:50 09:36 WBC RBC 2.56 L Hgb 8.4 L Hct 23.5 L MCV MCH 33 H MCHC 36 H RDW 17.9 H Plt Count Lymph % (Auto) [place]eral % (Auto) Eos % (Auto) Lymph # [place] # Eos # Seg Neutrophils % Seg Neuts % (Manual) Lymphocytes % (Manual) Monocytes % (Manual) Eosinophils % (Manual) Nucleated RBC % Seg Neutrophils # Seg Neutrophils # Man Lymphocytes # (Manual) Monocytes # (Manual) Eosinophils # (Manual) PT INR APTT POC ABG pH POC ABG pCO2 POC ABG pO2 Sodium Potassium Chloride Carbon Dioxide BUN Creatinine Glucose POC Glucose 106 H 109 H Lactic Acid Calcium Phosphorus Magnesium Iron TIBC Ferritin Direct Bilirubin AST Total Creatine Kinase Troponin T Total Protein Albumin Prealbumin LDL Cholesterol Direct HDL Cholesterol Vitamin B12 TSH PTH Intact Urine Creatinine Urine Total Protein Vancomycin Trough Digoxin Salicylates Acetaminophen Crossmatch 04/07/19 04/07/19 04/07/19 06:50 06:50 11:37 WBC RBC Hgb 8.6 L Hct 25.6 L MCV MCH MCHC RDW Plt Count Lymph % (Auto) [place]eral % (Auto) Eos % (Auto) Lymph # [place] # Eos # Seg Neutrophils % Seg Neuts % (Manual) Lymphocytes % (Manual) Monocytes % (Manual) Eosinophils % (Manual) Nucleated RBC % Seg Neutrophils # Seg Neutrophils # Man Lymphocytes # (Manual) Monocytes # (Manual) Eosinophils # (Manual) PT INR APTT POC ABG pH POC ABG pCO2 POC ABG pO2 Sodium Potassium Chloride Carbon Dioxide BUN Creatinine 0.6 L Glucose POC Glucose 118 H Lactic Acid Calcium 8.1 L Phosphorus Magnesium Iron TIBC Ferritin Direct Bilirubin AST Total Creatine Kinase Troponin T Total Protein Albumin Prealbumin LDL Cholesterol Direct HDL Cholesterol Vitamin B12 TSH PTH Intact Urine Creatinine Urine Total Protein Vancomycin Trough Digoxin Salicylates Acetaminophen Crossmatch 04/07/19 04/08/19 04/09/19 18:29 05:46 09:15 WBC 11.3 H RBC 2.58 L Hgb 7.9 L Hct 24.4 L MCV MCH MCHC RDW 17.3 H Plt Count 455 H Lymph % (Auto) [place]eral % (Auto) Eos % (Auto) Lymph # [place] # Eos # Seg Neutrophils % Seg Neuts % (Manual) Lymphocytes % (Manual) Monocytes % (Manual) Eosinophils % (Manual) Nucleated RBC % Seg Neutrophils # Seg Neutrophils # Man Lymphocytes # (Manual) Monocytes # (Manual) Eosinophils # (Manual) PT INR APTT POC ABG pH POC ABG pCO2 POC ABG pO2 Sodium Potassium Chloride Carbon Dioxide BUN Creatinine Glucose POC Glucose 108 H 113 H Lactic Acid Calcium Phosphorus Magnesium Iron TIBC Ferritin Direct Bilirubin AST Total Creatine Kinase Troponin T Total Protein Albumin Prealbumin LDL Cholesterol Direct HDL Cholesterol Vitamin B12 TSH PTH Intact Urine Creatinine Urine Total Protein Vancomycin Trough Digoxin Salicylates Acetaminophen Crossmatch 04/09/19 04/09/19 04/09/19 12:14 17:56 23:41 WBC RBC Hgb Hct MCV MCH MCHC RDW Plt Count Lymph % (Auto) [place]eral % (Auto) Eos % (Auto) Lymph # [place] # Eos # Seg Neutrophils % Seg Neuts % (Manual) Lymphocytes % (Manual) Monocytes % (Manual) Eosinophils % (Manual) Nucleated RBC % Seg Neutrophils # Seg Neutrophils # Man Lymphocytes # (Manual) Monocytes # (Manual) Eosinophils # (Manual) PT INR APTT POC ABG pH POC ABG pCO2 POC ABG pO2 Sodium Potassium Chloride Carbon Dioxide BUN Creatinine Glucose POC Glucose 135 H 117 H 128 H Lactic Acid Calcium Phosphorus Magnesium Iron TIBC Ferritin Direct Bilirubin AST Total Creatine Kinase Troponin T Total Protein Albumin Prealbumin LDL Cholesterol Direct HDL Cholesterol Vitamin B12 TSH PTH Intact Urine Creatinine Urine Total Protein Vancomycin Trough Digoxin Salicylates Acetaminophen Crossmatch 04/10/19 04/10/19 04/10/19 05:10 05:10 05:29 WBC 12.5 H RBC 2.46 L Hgb 7.6 L Hct 23.0 L MCV MCH MCHC RDW 17.3 H Plt Count 446 H Lymph % (Auto) 12.8 L [place] % (Auto) 12.1 H Eos % (Auto) Lymph # [place] # 1.5 H Eos # Seg Neutrophils % 72.6 H Seg Neuts % (Manual) Lymphocytes % (Manual) Monocytes % (Manual) Eosinophils % (Manual) Nucleated RBC % Seg Neutrophils # 9.0 H Seg Neutrophils # Man Lymphocytes # (Manual) Monocytes # (Manual) Eosinophils # (Manual) PT INR APTT POC ABG pH POC ABG pCO2 POC ABG pO2 Sodium 136 L Potassium Chloride Carbon Dioxide BUN Creatinine 0.6 L Glucose POC Glucose 125 H Lactic Acid Calcium 7.6 L Phosphorus Magnesium Iron TIBC Ferritin Direct Bilirubin AST Total Creatine Kinase Troponin T Total Protein Albumin Prealbumin LDL Cholesterol Direct HDL Cholesterol Vitamin B12 TSH PTH Intact Urine Creatinine Urine Total Protein Vancomycin Trough Digoxin Salicylates Acetaminophen Crossmatch 04/10/19 04/10/19 04/11/19 18:31 23:41 04:25 WBC 18.5 H RBC 2.61 L Hgb 8.0 L Hct 24.3 L MCV MCH MCHC RDW 17.2 H Plt Count 490 H Lymph % (Auto) 9.8 L [place] % (Auto) 9.5 H Eos % (Auto) Lymph # [place] # 1.8 H Eos # Seg Neutrophils % 79.0 H Seg Neuts % (Manual) Lymphocytes % (Manual) Monocytes % (Manual) Eosinophils % (Manual) Nucleated RBC % Seg Neutrophils # 14.6 H Seg Neutrophils # Man Lymphocytes # (Manual) Monocytes # (Manual) Eosinophils # (Manual) PT INR APTT POC ABG pH POC ABG pCO2 POC ABG pO2 Sodium Potassium Chloride Carbon Dioxide BUN Creatinine Glucose POC Glucose 165 H 133 H Lactic Acid Calcium Phosphorus Magnesium Iron TIBC Ferritin Direct Bilirubin AST Total Creatine Kinase Troponin T Total Protein Albumin Prealbumin LDL Cholesterol Direct HDL Cholesterol Vitamin B12 TSH PTH Intact Urine Creatinine Urine Total Protein Vancomycin Trough Digoxin Salicylates Acetaminophen Crossmatch 04/11/19 04/11/19 04/11/19 04:25 04:25 05:38 WBC RBC Hgb Hct MCV MCH MCHC RDW Plt Count Lymph % (Auto) Mineral % (Auto) Eos % (Auto) Lymph # [place] # Eos # Seg Neutrophils % Seg Neuts % (Manual) Lymphocytes % (Manual) Monocytes % (Manual) Eosinophils % (Manual) Nucleated RBC % Seg Neutrophils # Seg Neutrophils # Man Lymphocytes # (Manual) Monocytes # (Manual) Eosinophils # (Manual) PT 15.5 H INR 1.26 H APTT POC ABG pH POC ABG pCO2 POC ABG pO2 Sodium 136 L Potassium Chloride Carbon Dioxide BUN Creatinine 0.6 L Glucose POC Glucose 107 H Lactic Acid Calcium 7.7 L Phosphorus Magnesium Iron TIBC Ferritin Direct Bilirubin AST Total Creatine Kinase Troponin T Total Protein Albumin Prealbumin LDL Cholesterol Direct HDL Cholesterol Vitamin B12 TSH PTH Intact Urine Creatinine Urine Total Protein Vancomycin Trough Digoxin Salicylates Acetaminophen Crossmatch 04/12/19 04/12/19 04/12/19 06:47 11:30 11:30 WBC RBC Hgb 7.9 L Hct 24.3 L MCV MCH MCHC RDW Plt Count 465 H Lymph % (Auto) [place] % (Auto) Eos % (Auto) Lymph # [place] # Eos # Seg Neutrophils % Seg Neuts % (Manual) Lymphocytes % (Manual) Monocytes % (Manual) Eosinophils % (Manual) Nucleated RBC % Seg Neutrophils # Seg Neutrophils # Man Lymphocytes # (Manual) Monocytes # (Manual) Eosinophils # (Manual) PT 16.6 H INR 1.38 H APTT POC ABG pH POC ABG pCO2 POC ABG pO2 Sodium Potassium Chloride Carbon Dioxide BUN Creatinine Glucose POC Glucose 157 H Lactic Acid Calcium Phosphorus Magnesium Iron TIBC Ferritin Direct Bilirubin AST Total Creatine Kinase Troponin T Total Protein Albumin Prealbumin LDL Cholesterol Direct HDL Cholesterol Vitamin B12 TSH PTH Intact Urine Creatinine Urine Total Protein Vancomycin Trough Digoxin Salicylates Acetaminophen Crossmatch 04/12/19 12:18 WBC RBC Hgb Hct MCV MCH MCHC RDW Plt Count Lymph % (Auto) [place] % (Auto) Eos % (Auto) Lymph # [place] # Eos # Seg Neutrophils % Seg Neuts % (Manual) Lymphocytes % (Manual) Monocytes % (Manual) Eosinophils % (Manual) Nucleated RBC % Seg Neutrophils # Seg Neutrophils # Man Lymphocytes # (Manual) Monocytes # (Manual) Eosinophils # (Manual) PT INR APTT POC ABG pH POC ABG pCO2 POC ABG pO2 Sodium Potassium Chloride Carbon Dioxide BUN Creatinine Glucose POC Glucose 118 H Lactic Acid Calcium Phosphorus Magnesium Iron TIBC Ferritin Direct Bilirubin AST Total Creatine Kinase Troponin T Total Protein Albumin Prealbumin LDL Cholesterol Direct HDL Cholesterol Vitamin B12 TSH PTH Intact Urine Creatinine Urine Total Protein Vancomycin Trough Digoxin Salicylates Acetaminophen Crossmatch
[2019-04-12] MEDS: SUBLIMAZE IV PRN (19:30)
[2019-04-12] MEDS: DILAUDID IV PRN (21:13)
[2019-04-13] MEDS: DUONEB *Not for PRN Use IH SCH ×4 (02:02→20:20)
[2019-04-13] MEDS: DILAUDID IV PRN ×3 (02:25→22:58)
[2019-04-13] MEDS: HumaLOG SUB-Q SCH ×4 (02:25→18:34)
[2019-04-13 02:40] LABS: Hematocrit 21.4 % (30.3-42.9); Hemoglobin 7.1 gm/dl (10.1-14.3); Mean Corpuscular HGB Conc 33 % (30-34); Mean Corpuscular Volume 93 fl (79-97); Platelet Count 377 K/mm3 (140-440); Red Blood Count 2.31 M/mm3 (3.65-5.03); Red Cell Distribution Width 17.1 % (13.2-15.2)
[2019-04-13 03:02] LABS: Alanine Aminotransferase 10 units/L (7-56); Albumin 1.6 g/dL (3.9-5); BUN/Creatinine Ratio 20; Blood Urea Nitrogen 18 mg/dL (7-17); Calcium 7.6 mg/dL (8.4-10.2); Hemolysis Index 0
[2019-04-13 03:37] LABS: Basophils % (Manual) 0 % (0.0-1.8); Total Cells Counted 100
[2019-04-13 03:38] LABS: Anisocytosis 1+; Large Platelets 1+; Platelet Estimate Consistent w Auto; Poikilocytosis 1+
[2019-04-13 05:28] LABS: ABG Base Excess -2.3 mmol/L (-2.0-3.0); ABG HCO3 21.3 mmol/L (20.0-26.0); ABG Methemoglobin 0.6 % (0.0-1.5); ABG Oxygen Saturation 97.2 % (95.0-99.0); ABG PCO2 31.7 mm Hg; ABG PH 7.446 pH Units (7.350-7.450); ABG PO2 85.6 mm Hg (80.0-90.0)
--- NOTE | 2019-04-13 06:57 | Hem/Onc Progress Note ---
Assessment and Plan h/o low plt - at admission DVT was on home hospice 1. h/o Thrombocytopenia. This may be secondary to medications. The platelets were even low at admission. The differential includes infection versus a marrow issue. At this time, platelets are adequate, we will follow the trend. Because of clinical suspicion, HIT test has been ordered. Argatroban ordered. Heparin has been stopped. plt have improved 2. h/o Pneumonia. 3. h/o Encephalopathy. 4. Respiratory failure 5. h/o Renal impairment. 6. Deep vein thrombosis. Her immobilization may have a role. Central line also may have a role. Acute Right common femoral DVT and right IJ vein thrombosis the patient was on Argatroban. IVC filter may prevent the leg DVT from progression to PE; however, for IJ DVT, we have limited options. The patient was on home hospice as per notes. Atrial fibrillation, she was on medications. History of anemia, deficiency investigations. Leukocytosis, likely reactive. B12 level more than 2000, serum iron 32. anemia - IV iron trial 04/13/2019 anemia - off argatroban - HIT test negative h/o PRBC it appears that the pt is possibly bleeding - based on hb fall - hence anticoag has been held if hb improves - ? oral anticoag an option - eliquis vs xarelto trache done h/o IVC filter on vent h/o encephalopathy d/w dr nixon - stool guiac+ - Patient Problems (1) Thrombocytopenia Current Visit: Yes Status: Acute Subjective Date of service: 04/13/19 Principal diagnosis: anemia - DVT Interval history: trach+ Objective - Exam Narrative Exam: Pain - none General appearance intubated - trach+ Performance status - complete help needed Eyes - no icterus ENT no thrush LNs cervical not palpable Neck - no LNs/mass - trach+ Respiratory Normal Breath sounds - CTA anteriorly CVS S1 S2 + Extremities normal temperature - flaccid General GI Soft - distended Rectal deferred female - deferred Skin warm Musculoskeletal not able to evaluate Neurologically - on vent - Constitutional Vitals: Last Vital Signs Temp 98 F 04/13/19 04:00 Pulse 90 04/13/19 04:00 Resp 41 H 04/13/19 04:00 BP 134/72 04/13/19 04:00 Pulse Ox 98 04/13/19 04:52 - Labs Lab Results: Laboratory Results - last 24 hr 04/12/19 04/12/19 04/12/19 11:30 11:30 12:03 WBC RBC Hgb 7.9 L Hct 24.3 L MCV MCH MCHC RDW Plt Count 465 H Add Manual Diff Total Counted Seg Neuts % (Manual) Band Neutrophils % Lymphocytes % (Manual) Reactive Lymphs % (Man) Monocytes % (Manual) Eosinophils % (Manual) Basophils % (Manual) Metamyelocytes % Myelocytes % Promyelocytes % Blast Cells % Nucleated RBC % Seg Neutrophils # Man Band Neutrophils # Lymphocytes # (Manual) Abs React Lymphs (Man) Monocytes # (Manual) Eosinophils # (Manual) Basophils # (Manual) Metamyelocytes # Myelocytes # Promyelocytes # Blast Cells # WBC Morphology Hypersegmented Neuts Hyposegmented Neuts Hypogranular Neuts Smudge Cells Toxic Granulation Toxic Vacuolation Dohle Bodies Pelger-Huet Anomaly Judy Rods Platelet Estimate Clumped Platelets Plt Clumps, EDTA Large Platelets Giant Platelets Platelet Satelliting Plt Morphology Comment RBC Morphology Dimorphic RBCs Polychromasia Hypochromasia Poikilocytosis Anisocytosis Microcytosis Macrocytosis Spherocytes Pappenheimer Bodies Sickle Cells Target Cells Tear Drop Cells Ovalocytes Helmet Cells [place] Bodies [place] Rings [place] Cells Bite Cells Crenated Cell Elliptocytes Acanthocytes (Spur) Rouleaux Hemoglobin C Crystals Schistocytes Malaria parasites Adrian Bodies Hem Pathologist Commnt PT 16.6 H INR 1.38 H APTT 33.2 Heparin Anti-Xa Level POC ABG pH 7.360 ABG pH POC ABG pCO2 35.4 ABG pCO2 POC ABG pO2 53 L ABG pO2 POC ABG HCO3 20.0 ABG HCO3 POC ABG Total CO2 21 POC ABG O2 Sat 86 ABG O2 Saturation ABG O2 Content POC ABG Base Excess -5 ABG Base Excess ABG Hemoglobin ABG Carboxyhemoglobin ABG Methemoglobin Oxyhemoglobin FiO2 60 Sodium Potassium Chloride Carbon Dioxide Anion Gap BUN Creatinine Estimated GFR BUN/Creatinine Ratio Glucose POC Glucose Calcium Total Bilirubin AST ALT Alkaline Phosphatase Total Protein Albumin Albumin/Globulin Ratio 04/12/19 04/12/19 04/12/19 12:18 14:57 18:02 WBC RBC Hgb Hct MCV MCH MCHC RDW Plt Count Add Manual Diff Total Counted Seg Neuts % (Manual) Band Neutrophils % Lymphocytes % (Manual) Reactive Lymphs % (Man) Monocytes % (Manual) Eosinophils % (Manual) Basophils % (Manual) Metamyelocytes % Myelocytes % Promyelocytes % Blast Cells % Nucleated RBC % Seg Neutrophils # Man Band Neutrophils # Lymphocytes # (Manual) Abs React Lymphs (Man) Monocytes # (Manual) Eosinophils # (Manual) Basophils # (Manual) Metamyelocytes # Myelocytes # Promyelocytes # Blast Cells # WBC Morphology Hypersegmented Neuts Hyposegmented Neuts Hypogranular Neuts Smudge Cells Toxic Granulation Toxic Vacuolation Dohle Bodies Pelger-Huet Anomaly Judy Rods Platelet Estimate Clumped Platelets Plt Clumps, EDTA Large Platelets Giant Platelets Platelet Satelliting Plt Morphology Comment RBC Morphology Dimorphic RBCs Polychromasia Hypochromasia Poikilocytosis Anisocytosis Microcytosis Macrocytosis Spherocytes Pappenheimer Bodies Sickle Cells Target Cells Tear Drop Cells Ovalocytes Helmet Cells [place] Bodies [place] Rings [place] Cells Bite Cells Crenated Cell Elliptocytes Acanthocytes (Spur) Rouleaux Hemoglobin C Crystals Schistocytes Malaria parasites Adrian Bodies Hem Pathologist Commnt PT INR APTT Heparin Anti-Xa Level < 0.10 L POC ABG pH 7.412 ABG pH POC ABG pCO2 30.5 L ABG pCO2 POC ABG pO2 60 L ABG pO2 POC ABG HCO3 19.4 ABG HCO3 POC ABG Total CO2 20 POC ABG O2 Sat 91 ABG O2 Saturation ABG O2 Content POC ABG Base Excess -5 ABG Base Excess ABG Hemoglobin ABG Carboxyhemoglobin ABG Methemoglobin Oxyhemoglobin FiO2 60 Sodium Potassium Chloride Carbon Dioxide Anion Gap BUN Creatinine Estimated GFR BUN/Creatinine Ratio Glucose POC Glucose 118 H Calcium Total Bilirubin AST ALT Alkaline Phosphatase Total Protein Albumin Albumin/Globulin Ratio 04/12/19 04/12/19 04/13/19 18:05 23:24 02:31 WBC 25.1 H RBC 2.31 L Hgb 7.1 L Hct 21.4 L MCV 93 MCH 31 MCHC 33 RDW 17.1 H Plt Count 377 Add Manual Diff Complete Total Counted 100 Seg Neuts % (Manual) 90.0 H Band Neutrophils % 0 Lymphocytes % (Manual) 5.0 L Reactive Lymphs % (Man) 0 Monocytes % (Manual) 4.0 Eosinophils % (Manual) 1.0 Basophils % (Manual) 0 Metamyelocytes % 0 Myelocytes % 0 Promyelocytes % 0 Blast Cells % 0 Nucleated RBC % Not Reportable Seg Neutrophils # Man 22.6 H Band Neutrophils # 0.0 Lymphocytes # (Manual) 1.3 Abs React Lymphs (Man) 0.0 Monocytes # (Manual) 1.0 H Eosinophils # (Manual) 0.3 Basophils # (Manual) 0.0 Metamyelocytes # 0.0 Myelocytes # 0.0 Promyelocytes # 0.0 Blast Cells # 0.0 WBC Morphology Not Reportable Hypersegmented Neuts Not Reportable Hyposegmented Neuts Not Reportable Hypogranular Neuts Not Reportable Smudge Cells Not Reportable Toxic Granulation Not Reportable Toxic Vacuolation Not Reportable Dohle Bodies Not Reportable Pelger-Huet Anomaly Not Reportable Judy Rods Not Reportable Platelet Estimate Consistent w auto Clumped Platelets Not Reportable Plt Clumps, EDTA Not Reportable Large Platelets 1+ Giant Platelets Not Reportable Platelet Satelliting Not Reportable Plt Morphology Comment Not Reportable RBC Morphology Not Reportable Dimorphic RBCs Not Reportable Polychromasia Not Reportable Hypochromasia Not Reportable Poikilocytosis 1+ Anisocytosis 1+ Microcytosis Not Reportable Macrocytosis Not Reportable Spherocytes Not Reportable Pappenheimer Bodies Not Reportable Sickle Cells Not Reportable Target Cells Not Reportable Tear Drop Cells Not Reportable Ovalocytes Not Reportable Helmet Cells Not Reportable [place] Bodies Not Reportable [place] Rings Not Reportable [place] Cells Not Reportable Bite Cells Not Reportable Crenated Cell Not Reportable Elliptocytes Not Reportable Acanthocytes (Spur) Not Reportable Rouleaux Not Reportable Hemoglobin C Crystals Not Reportable Schistocytes Not Reportable Malaria parasites Not Reportable Adrian Bodies Not Reportable Hem Pathologist Commnt No PT INR APTT Heparin Anti-Xa Level POC ABG pH ABG pH POC ABG pCO2 ABG pCO2 POC ABG pO2 ABG pO2 POC ABG HCO3 ABG HCO3 POC ABG Total CO2 POC ABG O2 Sat ABG O2 Saturation ABG O2 Content POC ABG Base Excess ABG Base Excess ABG Hemoglobin ABG Carboxyhemoglobin ABG Methemoglobin Oxyhemoglobin FiO2 Sodium Potassium Chloride Carbon Dioxide Anion Gap BUN Creatinine Estimated GFR BUN/Creatinine Ratio Glucose POC Glucose 115 H 90 Calcium Total Bilirubin AST ALT Alkaline Phosphatase Total Protein Albumin Albumin/Globulin Ratio 04/13/19 04/13/19 04/13/19 02:31 02:31 05:02 WBC RBC Hgb Hct MCV MCH MCHC RDW Plt Count Add Manual Diff Total Counted Seg Neuts % (Manual) Band Neutrophils % Lymphocytes % (Manual) Reactive Lymphs % (Man) Monocytes % (Manual) Eosinophils % (Manual) Basophils % (Manual) Metamyelocytes % Myelocytes % Promyelocytes % Blast Cells % Nucleated RBC % Seg Neutrophils # Man Band Neutrophils # Lymphocytes # (Manual) Abs React Lymphs (Man) Monocytes # (Manual) Eosinophils # (Manual) Basophils # (Manual) Metamyelocytes # Myelocytes # Promyelocytes # Blast Cells # WBC Morphology Hypersegmented Neuts Hyposegmented Neuts Hypogranular Neuts Smudge Cells Toxic Granulation Toxic Vacuolation Dohle Bodies Pelger-Huet Anomaly Judy Rods Platelet Estimate Clumped Platelets Plt Clumps, EDTA Large Platelets Giant Platelets Platelet Satelliting Plt Morphology Comment RBC Morphology Dimorphic RBCs Polychromasia Hypochromasia Poikilocytosis Anisocytosis Microcytosis Macrocytosis Spherocytes Pappenheimer Bodies Sickle Cells Target Cells Tear Drop Cells Ovalocytes Helmet Cells [place] Bodies [place] Rings Loren Cells Bite Cells Crenated Cell Elliptocytes Acanthocytes (Spur) Rouleaux Hemoglobin C Crystals Schistocytes Malaria parasites Adrian Bodies Hem Pathologist Commnt PT INR APTT Heparin Anti-Xa Level 0.24 L POC ABG pH ABG pH 7.446 POC ABG pCO2 ABG pCO2 31.7 POC ABG pO2 ABG pO2 85.6 POC ABG HCO3 ABG HCO3 21.3 POC ABG Total CO2 POC ABG O2 Sat ABG O2 Saturation 97.2 ABG O2 Content 10.6 POC ABG Base Excess ABG Base Excess -2.3 L ABG Hemoglobin 7.8 L ABG Carboxyhemoglobin 1.6 ABG Methemoglobin 0.6 Oxyhemoglobin 95.2 FiO2 21 Sodium 134 L Potassium 3.6 Chloride 99.9 Carbon Dioxide 22 Anion Gap 16 BUN 18 H Creatinine 0.9 Estimated GFR > 60 BUN/Creatinine Ratio 20 Glucose 73 POC Glucose Calcium 7.6 L Total Bilirubin 0.20 AST 29 ALT 10 Alkaline Phosphatase 101 Total Protein 6.1 L Albumin 1.6 L Albumin/Globulin Ratio 0.4 04/13/19 05:50 WBC RBC Hgb Hct MCV MCH MCHC RDW Plt Count Add Manual Diff Total Counted Seg Neuts % (Manual) Band Neutrophils % Lymphocytes % (Manual) Reactive Lymphs % (Man) Monocytes % (Manual) Eosinophils % (Manual) Basophils % (Manual) Metamyelocytes % Myelocytes % Promyelocytes % Blast Cells % Nucleated RBC % Seg Neutrophils # Man Band Neutrophils # Lymphocytes # (Manual) Abs React Lymphs (Man) Monocytes # (Manual) Eosinophils # (Manual) Basophils # (Manual) Metamyelocytes # Myelocytes # Promyelocytes # Blast Cells # WBC Morphology Hypersegmented Neuts Hyposegmented Neuts Hypogranular Neuts Smudge Cells Toxic Granulation Toxic Vacuolation Dohle Bodies Pelger-Huet Anomaly Judy Rods Platelet Estimate Clumped Platelets Plt Clumps, EDTA Large Platelets Giant Platelets Platelet Satelliting Plt Morphology Comment RBC Morphology Dimorphic RBCs Polychromasia Hypochromasia Poikilocytosis Anisocytosis Microcytosis Macrocytosis Spherocytes Pappenheimer Bodies Sickle Cells Target Cells Tear Drop Cells Ovalocytes Helmet Cells [place] Bodies [place] Rings Loren Cells Bite Cells Crenated Cell Elliptocytes Acanthocytes (Spur) Rouleaux Hemoglobin C Crystals Schistocytes Malaria parasites Adrian Bodies Hem Pathologist Commnt PT INR APTT Heparin Anti-Xa Level POC ABG pH ABG pH POC ABG pCO2 ABG pCO2 POC ABG pO2 ABG pO2 POC ABG HCO3 ABG HCO3 POC ABG Total CO2 POC ABG O2 Sat ABG O2 Saturation ABG O2 Content POC ABG Base Excess ABG Base Excess ABG Hemoglobin ABG Carboxyhemoglobin ABG Methemoglobin Oxyhemoglobin FiO2 Sodium Potassium Chloride Carbon Dioxide Anion Gap BUN Creatinine Estimated GFR BUN/Creatinine Ratio Glucose POC Glucose 83 Calcium Total Bilirubin AST ALT Alkaline Phosphatase Total Protein Albumin Albumin/Globulin Ratio Medications & Allergies - Medications Allergies/Adverse Reactions: Allergies No Known Allergies Allergy (Unverified 03/19/19 13:11) Home Medications: Home Medications Medication Instructions Recorded Confirmed Last Taken Type Aspirin EC [Halfprin EC] 81 mg PO DAILY 03/20/19 03/20/19 Unknown History Divalproex Sodium 375 mg PO Q8H PRN 03/20/19 03/20/19 Unknown History Metoprolol [Lopressor TAB] 50 mg PO BID 03/20/19 03/20/19 Unknown History Sennosides/Docusate Sodium [Senna 8.6 mg PO BID PRN 03/20/19 03/20/19 Unknown History Plus Tablet] levETIRAcetam [Keppra TAB] 500 mg PO BID 03/20/19 03/20/19 Unknown History Active Medications: Generic Name Dose Route Start Last Admin Trade Name Freq PRN Reason Stop Dose Admin Acetaminophen 650 mg 03/24/19 23:48 04/11/19 09:52 Tylenol FEEDTUBE 650 mg Q6H PRN Administration Pain, Mild (1-3) Albuterol 2.5 mg 03/19/19 23:58 Proventil IH Q3HRT PRN Shortness Of Breath Albuterol/Ipratropium 1 ampul 03/20/19 02:00 04/13/19 02:02 Duoneb *Not For Prn Use* IH 1 ampul Q6HRT YUSUF Administration Amiodarone HCl 200 mg 03/22/19 22:00 04/12/19 21:15 Cordarone PO 200 mg BID YUSUF Administration Lipase/Protease/Amylase 1 each 04/07/19 15:[address] 10,500 Unit FEEDTUBE PRN PRN For Clogged Feeding Tube Aspirin 81 mg 03/21/19 10:00 04/12/19 09:24 Baby Aspirin PO 81 mg DAILY YUSUF Administration Budesonide 0.5 mg 03/19/19 23:45 04/12/19 20:29 Pulmicort IH 0.5 mg Q12HRT YUSUF Administration Dextrose 50 ml 03/19/19 23:58 03/21/19 16:29 D50w (25gm) Syringe IV 50 ml PRN PRN Administration Hypoglycemia Famotidine 20 mg 03/22/19 10:00 04/12/19 21:15 Pepcid PO 20 mg BID YUSUF Administration Fentanyl 50 mcg 03/19/19 12:45 04/12/19 19:30 Sublimaze IV 50 mcg Q10MIN PRN Administration ANALGESIA Hydromorphone HCl 0.5 mg 03/19/19 23:58 04/13/19 02:25 Dilaudid IV 0.5 mg Q3H PRN Administration Pain , Severe (7-10) Hydrophilic Ointment 1 applic 03/19/19 12:45 Vaseline Lip Therapy TP Q2HR PRN Dry Lips Fentanyl Citrate 2,000 mcg in 100 mls @ 2.835 mls/hr 03/19/19 14:00 03/21/19 11:33 Fentanyl Drip Premix IV 0 mcg/kg/hr TITR YUSUF 0 mls/hr Titration Protocol 1 MCG/KG/HR Norepinephrine 4 mg in 250 mls @ 7.5 mls/hr 03/25/19 11:00 03/30/19 23:45 Levophed Drip 4 Mg/Ns 250 Ml IV 0 mcg/min TITR YUSUF 0 mls/hr Titration Protocol 2 MCG/MIN Sodium Chloride 1,000 mls @ 50 mls/hr 04/11/19 13:00 Nacl 0.9% 1000 Ml IV DIRECT YUSUF Heparin Sodium/Sodium Chloride 25,000 unit in 500 mls @ 18 mls/hr 04/12/19 12:00 04/13/19 03:47 Heparin/ 0.45% Nacl-25,000 Unit/500 Ml IV 1,000 units/hr TITR YUSUF 20 mls/hr Titration Protocol 900 UNITS/HR Insulin Human Lispro 0 unit 03/20/19 00:00 04/13/19 02:25 Humalog SUB-Q Not Given Q6HR [facility] Protocol Metoclopramide HCl 5 mg 03/20/19 00:12 Reglan IV Q6H PRN Nausea And Vomiting Metoprolol Tartrate 2.5 mg 03/23/19 13:17 03/24/19 21:20 Lopressor IV 2.5 mg Q2HR PRN Administration HR >150 Metoprolol Tartrate 12.5 mg 04/11/19 22:00 04/12/19 21:14 Lopressor PO 12.5 mg BID YUSUF Administration Multi-Ingred Cream/Lotion/Oil/Oint 1 applic 03/19/19 12:45 Artificial Tears Ophth Oint OU Q4HR PRN Dry Eye(s) Ondansetron HCl 4 mg 03/19/19 23:58 Zofran IV Q8H PRN Nausea And Vomiting Promethazine HCl 25 mg 03/19/19 23:58 Phenergan [place] Q6H PRN N/V IF NPO AND NO IV ACCESS Simple Syrup 15 ml 04/07/19 15:50 Simple Syrup FEEDTUBE PRN PRN Hypoglycemia Simple Syrup 30 ml 04/07/19 15:50 Simple Syrup FEEDTUBE PRN PRN Hypoglycemia Sodium Bicarbonate 325 mg 04/07/19 15:50 Sodium Bicarbonate FEEDTUBE PRN PRN For Clogged Feeding Tube Sodium Chloride 10 ml 03/20/19 10:00 04/12/19 21:16 Sodium Chloride Flush Syringe 10 Ml IV 10 ml BID YUSUF Administration Sodium Chloride 10 ml 03/19/19 23:58 04/07/19 10:45 Sodium Chloride Flush Syringe 10 Ml IV 10 ml PRN PRN Administration LINE FLUSH Trimethoprim/Sulfamethoxazole 1 each 04/07/19 14:00 04/12/19 21:19 Bactrim Ds PO 04/14/19 22:01 1 each Q12HR YUSUF Administration
[2019-04-13] MEDS: PULMICORT IH SCH ×2 (08:17→20:20)
[2019-04-13] MEDS: PEPCID PO SCH (11:11)
[2019-04-13] MEDS: BABY ASPIRIN PO SCH (11:11)
[2019-04-13] MEDS: CORDARONE PO SCH (11:11)
[2019-04-13] MEDS: LOPRESSOR PO SCH (11:11)
[2019-04-13] MEDS: BACTRIM DS PO SCH (11:11)
[2019-04-13] MEDS ORDERED: LASIX IV ONE (11:18)
--- NOTE | 2019-04-13 11:48 | Progress Note ---
Assessment and Plan Cultures/ID related labs: 04/05 BCx - negative 04/04 Sputum - Stenotrophomonas maltophila. 03/27 tracheal aspirate - heavy neutrophils, usual resp maday Blood culture 03/19/2019 negative. Urine culture 03/19/2019 negative. 03/23/2019 tracheal aspirate culture: Usual resp maday 04/05/2019 blood culture no growth so far 04/08/2019 blood culture no growth so far Assessment: 73 y/o female with history of dementia, prior CVA, on home hospice admitted on 03/20/2019 brought by EMS due to altered mental status: 1) Sepsis with septic shock: etiology ? pneumonia ? vulvar abscess/cellulitis ?drug fever v/s DVT related. Repeat UA neg. WBC persistently elevated 2) Bilateral pneumonia: Her radiography is largely unchanged. Her sputum cultures have grown S. maltophila, which is both a common infection in intubated patients as well as a common colonizer of tubes. CXR vaughn patchy pulmonary opacities. On Bactrim. ?fluid overload. 3) Acute encephalopathy: CT head without contrast shows encephalomalacia in the entire right cerebral hemisphere, volume loss in the left cerebral hemisphere, no acute parenchymal lesion in the brain. 4) Acute respiratory failure: now s/p trach and PEG. on the vent. 5) HA: improved. 6) Persistent fevers - Had initially improved with cessation of antibiotics but now febrile again. 7) DVTs - DVT of RIJ at catheter site as well as R common femoral, and a superficial thrombus in R greater saphenous. IVC filter placed. Recommendations: off all abx except Bactrim which will be completed tomorrow fevers and WBC probably from extensive DVTs. She has had extensive antibiotic courses without any response Extremely poor prognosis Isaias Quintanilla MD, FACP [facility] ([facility] C: [phone] O: [phone] F: [phone] Subjective Date of service: 04/13/19 Principal diagnosis: anemia - DVT Interval history: Low grade fevers continue. Remains on the vent. Trach +. Non verbal. Objective - Exam Narrative Exam: Physical Exam: Constitutional: awake, doesn't follow any commands Head, Ears, Nose: Normocephalic, atraumatic. External ears, nose normal Eyes: Conjunctivae/corneas clear. No icterus. No ptosis. Neck: trach + Cardiovascular: S1, S2 normal. Respiratory: air entry clear bilaterally GI: Soft, PEG + bowel sounds normal. No peritoneal signs. Musculoskeletal: B/L pedal edema, foot drop and contractures Skin: No rash or abscess Hem/Lymphatic: No palpable cervical or supraclavicular nodes. No lymphangitis Psych: no agitation Neurological: awake, trach, on vent - Constitutional Vitals: Vital Signs Temp Pulse Resp BP Pulse Ox 100.8 F H 122 H 51 H 118/55 91 04/13/19 08:00 04/13/19 11:11 04/13/19 11:00 04/13/19 11:11 04/13/19 11:00 Temperature -Last 24 Hours Temperature 100.8 F Temperature 98 F Temperature 100.1 F Temperature 100.1 F Temperature 100.5 F Temperature 99.6 F Temperature 99.6 F - Labs CBC & Chem 7: 04/13/19 02:31 04/13/19 02:31 Labs: Abnormal lab results 04/12/19 04/12/19 04/12/19 Range/Units 11:30 11:30 12:03 WBC (4.5-11.0) K/mm3 RBC (3.65-5.03) M/mm3 Hgb 7.9 L (10.1-14.3) gm/dl Hct 24.3 L (30.3-42.9) % RDW (13.2-15.2) % Plt Count 465 H (140-440) K/mm3 Seg Neuts % (Manual) (40.0-70.0) % Lymphocytes % (Manual) (13.4-35.0) % Seg Neutrophils # Man (1.8-7.7) K/mm3 Monocytes # (Manual) (0.0-0.8) K/mm3 PT 16.6 H (12.2-14.9) Sec. INR 1.38 H (0.87-1.13) Heparin Anti-Xa Level (0.3-0.7) U.I./ml POC ABG pCO2 (35-45) POC ABG pO2 53 L (80-105) ABG Base Excess (-2.0-3.0) mmol/L ABG Hemoglobin (12.0-16.0) gm/dl Sodium (137-145) mmol/L BUN (7-17) mg/dL POC Glucose (70-105) Calcium (8.4-10.2) mg/dL Total Protein (6.3-8.2) g/dL Albumin (3.9-5) g/dL 04/12/19 04/12/19 04/12/19 Range/Units 12:18 14:57 18:02 WBC (4.5-11.0) K/mm3 RBC (3.65-5.03) M/mm3 Hgb (10.1-14.3) gm/dl Hct (30.3-42.9) % RDW (13.2-15.2) % Plt Count (140-440) K/mm3 Seg Neuts % (Manual) (40.0-70.0) % Lymphocytes % (Manual) (13.4-35.0) % Seg Neutrophils # Man (1.8-7.7) K/mm3 Monocytes # (Manual) (0.0-0.8) K/mm3 PT (12.2-14.9) Sec. INR (0.87-1.13) Heparin Anti-Xa Level < 0.10 L (0.3-0.7) U.I./ml POC ABG pCO2 30.5 L (35-45) POC ABG pO2 60 L (80-105) ABG Base Excess (-2.0-3.0) mmol/L ABG Hemoglobin (12.0-16.0) gm/dl Sodium (137-145) mmol/L BUN (7-17) mg/dL POC Glucose 118 H (70-105) Calcium (8.4-10.2) mg/dL Total Protein (6.3-8.2) g/dL Albumin (3.9-5) g/dL 04/12/19 04/13/19 04/13/19 Range/Units 18:05 02:31 02:31 WBC 25.1 H (4.5-11.0) K/mm3 RBC 2.31 L (3.65-5.03) M/mm3 Hgb 7.1 L (10.1-14.3) gm/dl Hct 21.4 L (30.3-42.9) % RDW 17.1 H (13.2-15.2) % Plt Count (140-440) K/mm3 Seg Neuts % (Manual) 90.0 H (40.0-70.0) % Lymphocytes % (Manual) 5.0 L (13.4-35.0) % Seg Neutrophils # Man 22.6 H (1.8-7.7) K/mm3 Monocytes # (Manual) 1.0 H (0.0-0.8) K/mm3 PT (12.2-14.9) Sec. INR (0.87-1.13) Heparin Anti-Xa Level (0.3-0.7) U.I./ml POC ABG pCO2 (35-45) POC ABG pO2 (80-105) ABG Base Excess (-2.0-3.0) mmol/L ABG Hemoglobin (12.0-16.0) gm/dl Sodium 134 L (137-145) mmol/L BUN 18 H (7-17) mg/dL POC Glucose 115 H (70-105) Calcium 7.6 L (8.4-10.2) mg/dL Total Protein 6.1 L (6.3-8.2) g/dL Albumin 1.6 L (3.9-5) g/dL 04/13/19 04/13/19 Range/Units 02:31 05:02 WBC (4.5-11.0) K/mm3 RBC (3.65-5.03) M/mm3 Hgb (10.1-14.3) gm/dl Hct (30.3-42.9) % RDW (13.2-15.2) % Plt Count (140-440) K/mm3 Seg Neuts % (Manual) (40.0-70.0) % Lymphocytes % (Manual) (13.4-35.0) % Seg Neutrophils # Man (1.8-7.7) K/mm3 Monocytes # (Manual) (0.0-0.8) K/mm3 PT (12.2-14.9) Sec. INR (0.87-1.13) Heparin Anti-Xa Level 0.24 L (0.3-0.7) U.I./ml POC ABG pCO2 (35-45) POC ABG pO2 (80-105) ABG Base Excess -2.3 L (-2.0-3.0) mmol/L ABG Hemoglobin 7.8 L (12.0-16.0) gm/dl Sodium (137-145) mmol/L BUN (7-17) mg/dL POC Glucose (70-105) Calcium (8.4-10.2) mg/dL Total Protein (6.3-8.2) g/dL Albumin (3.9-5) g/dL
--- NOTE | 2019-04-13 12:27 | Progress Note ---
Assessment and Plan Assessment and plan: --Acute hypoxic respiratory failure intubated, vent dependent, S/P trach and PEG 04/11/19 on vent,Tolerating PEG feeds Awaiting LTAC placement --Acute metabolic encephalopathy, CT head negative,back to her baseline per the family --Severe Anemia: status post total 3 units of PRBC transfusion Closely monitor H&H transfuse as needed --Digoxin toxicity; off digoxin --Acute Right common femoral DVT and right IJ vein thrombosis s/p argatroban drip, dced due to severe anemia[requiring transfusion] Patient has IVC filter ,no AC for now, hematology following Family requested aggressive management, heparin drip is started today Closely monitor H&H --Sepsis due to aspiration pneumonia; ID following, Has completed full course for pneumonia and abx stopped on 04/04 for aspiration PNA started on abx again by ID on 04/07 for persistent fever with bactrim for 7 days --Septic shock: off pressor, --Paroxysmal Atrial fib, Now NSR on amioderone, metoprolol --HA (acute kidney injury), atn and vasomotor nephrology, poa: Resolved --Anemia, due to CD vs other cause ordered stool for occult blood, iron study transfused one unit PRBC --RUL Aspiration pneumonia: treated with abx --Hypernatremia: improved with Iv fluid --Hypomagnesemia: replete and follow as needed --Elevated troponin level/ NSTEMI II; Cardiology rec conservative mx --DVT prophylaxis: SCD --DNR code status Disposition ;Awaiting LTAC placement CCT 31 minutes Patient is a 73 yo woman without a clear past medical history due to patient presentation of being Altered requiring intubation upon admission. Upon arrival to the emergency room, the patient is obtunded, breathing without difficulty, desaturating, without a gag reflex. Therefore, patient placed on nasal cannula at 15 L/m, and then intubated without difficulty. Patient started empirically on the sepsis pathway, with broad-spectrum antibiotics, aggressive IV fluids, and post intubation sedation package. She is difficult to wean off from vent, s/p bronch. venous doppler showed right internal jugular vein thrombus associated with right internal jugular vein triple lumen catheter and right common femoral vein DVT. Patient was on anticoagulation however had significant anemia requiring blood transfusion as argatroban discontinued. Patient is unable to wean with poor prognosis, family requested DO NOT RESUSCITATE status, initially decided hospice, however they changed their mind and patient underwent trach and PEG on 04/11/19 and is awaiting LTAC placement * pCXR FINDINGS: SUPPORT DEVICES: Endotracheal tube is in place in good position above the liam. HEART / MEDIASTINUM: No significant abnormality. LUNGS / PLEURA: There is moderate bibasilar lung consolidation and slight right upper lobe consolidation as well. No edema or effusions. No pneumothorax. ADDITIONAL FINDINGS: No significant additional findings. IMPRESSION: 1. Endotracheal tube in good position. * CT head without contrast IMPRESSION: Encephalomalacia in the entire right cerebral hemisphere Volume loss in the left cerebral hemisphere, n0 acute par enchymal lesion in the brain. History Interval history: Patient seen and examined this morning medical records reviewed Status post trach and PEG, on vent Patient is not in acute distress Low-grade fever, vital signs reviewed Receiving PEG feedings Hospitalist Physical - Constitutional Vitals: Temp Pulse Resp BP Pulse Ox 100.8 F H 95 H 37 H 73/41 93 04/13/19 08:00 04/13/19 12:00 04/13/19 12:00 04/13/19 12:00 04/13/19 12:00 General appearance: Present: no acute distress, well-nourished, other (tracheostomy on vent) - EENT Eyes: Present: PERRL, EOM intact - Neck Neck: Present: supple, normal ROM - Respiratory Respiratory effort: normal Respiratory: bilateral: diminished, rhonchi, negative: rales, wheezing - Cardiovascular Rhythm: regular Heart Sounds: Present: S1 & S2 - Extremities Extremities: no ischemia, No edema - Abdominal General gastrointestinal: soft, non-tender, non-distended - Integumentary Integumentary: Present: clear, warm - Psychiatric Psychiatric: other (a colostomy on vent) - Neurologic Neurologic: other (tracheostomy on vent) Results - Labs CBC & Chem 7: 04/13/19 02:31 04/13/19 02:31 Labs: Laboratory Last Values WBC 25.1 K/mm3 (4.5-11.0) H 04/13/19 02:31 RBC 2.31 M/mm3 (3.65-5.03) L 04/13/19 02:31 Hgb 7.1 gm/dl (10.1-14.3) L 04/13/19 02:31 Hct 21.4 % (30.3-42.9) L 04/13/19 02:31 MCV 93 fl (79-97) 04/13/19 02:31 MCH 31 pg (28-32) 04/13/19 02:31 MCHC 33 % (30-34) 04/13/19 02:31 RDW 17.1 % (13.2-15.2) H 04/13/19 02:31 Plt Count 377 K/mm3 (140-440) 04/13/19 02:31 Lymph % (Auto) 9.8 % (13.4-35.0) L 04/11/19 04:25 [place] % (Auto) 9.5 % (0.0-7.3) H 04/11/19 04:25 Eos % (Auto) 1.4 % (0.0-4.3) 04/11/19 04:25 Baso % (Auto) 0.3 % (0.0-1.8) 04/11/19 04:25 Lymph # 1.8 K/mm3 (1.2-5.4) 04/11/19 04:25 [place] # 1.8 K/mm3 (0.0-0.8) H 04/11/19 04:25 Eos # 0.3 K/mm3 (0.0-0.4) 04/11/19 04:25 Baso # 0.1 K/mm3 (0.0-0.1) 04/11/19 04:25 Add Manual Diff Complete 04/13/19 02:31 Total Counted 100 04/13/19 02:31 Seg Neutrophils % 79.0 % (40.0-70.0) H 04/11/19 04:25 Seg Neuts % (Manual) 90.0 % (40.0-70.0) H 04/13/19 02:31 0 % 04/13/19 02:31 5.0 % (13.4-35.0) L 04/13/19 02:31 Reactive Lymphs % (Man) 0 % 04/13/19 02:31 4.0 % (0.0-7.3) 04/13/19 02:31 1.0 % (0.0-4.3) 04/13/19 02:31 0 % (0.0-1.8) 04/13/19 02:31 0 % 04/13/19 02:31 0 % 04/13/19 02:31 0 % 04/13/19 02:31 0 % 04/13/19 02:31 Nucleated RBC % Not Reportable 04/13/19 02:31 Seg Neutrophils # 14.6 K/mm3 (1.8-7.7) H 04/11/19 04:25 Seg Neutrophils # Man 22.6 K/mm3 (1.8-7.7) H 04/13/19 02:31 Band Neutrophils # 0.0 K/mm3 04/13/19 02:31 1.3 K/mm3 (1.2-5.4) 04/13/19 02:31 Abs React Lymphs (Man) 0.0 K/mm3 04/13/19 02:31 1.0 K/mm3 (0.0-0.8) H 04/13/19 02:31 0.3 K/mm3 (0.0-0.4) 04/13/19 02:31 0.0 K/mm3 (0.0-0.1) 04/13/19 02:31 0.0 K/mm3 04/13/19 02:31 0.0 K/mm3 04/13/19 02:31 0.0 K/mm3 04/13/19 02:31 Blast Cells # 0.0 K/mm3 04/13/19 02:31 WBC Morphology Not Reportable 04/13/19 02:31 Hypersegmented Neuts Not Reportable 04/13/19 02:31 Hyposegmented Neuts Not Reportable 04/13/19 02:31 Hypogranular Neuts Not Reportable 04/13/19 02:31 Not Reportable 04/13/19 02:31 Not Reportable 04/13/19 02:31 Not Reportable 04/13/19 02:31 Not Reportable 04/13/19 02:31 Not Reportable 04/13/19 02:31 Not Reportable 04/13/19 02:31 Consistent w auto 04/13/19 02:31 Not Reportable 04/13/19 02:31 Plt Clumps, EDTA Not Reportable 04/13/19 02:31 1+ 04/13/19 02:31 Not Reportable 04/13/19 02:31 Not Reportable 04/13/19 02:31 Plt Morphology Comment Not Reportable 04/13/19 02:31 RBC Morphology Not Reportable 04/13/19 02:31 Dimorphic RBCs Not Reportable 04/13/19 02:31 Not Reportable 04/13/19 02:31 Not Reportable 04/13/19 02:31 1+ 04/13/19 02:31 1+ 04/13/19 02:31 Not Reportable 04/13/19 02:31 Not Reportable 04/13/19 02:31 Not Reportable 04/13/19 02:31 Not Reportable 04/13/19 02:31 Not Reportable 04/13/19 02:31 Not Reportable 04/13/19 02:31 Not Reportable 04/13/19 02:31 Not Reportable 04/13/19 02:31 Not Reportable 04/13/19 02:31 Not Reportable 04/13/19 02:31 Not Reportable 04/13/19 02:31 Not Reportable 04/13/19 02:31 Not Reportable 04/13/19 02:31 Not Reportable 04/13/19 02:31 Not Reportable 04/13/19 02:31 Acanthocytes (Spur) Not Reportable 04/13/19 02:31 Rouleaux Not Reportable 04/13/19 02:31 Not Reportable 04/13/19 02:31 Not Reportable 04/13/19 02:31 Not Reportable 04/13/19 02:31 Not Reportable 04/13/19 02:31 Hem Pathologist Commnt No 04/13/19 02:31 PT 16.6 Sec. (12.2-14.9) H 04/12/19 11:30 INR 1.38 (0.87-1.13) H 04/12/19 11:30 APTT 33.2 Sec. (24.2-36.6) 04/12/19 11:30 Heparin Anti-Xa Level 0.24 U.I./ml (0.3-0.7) L 04/13/19 02:31 Heparin Anti-Xa, Unfract Negative (Negative) 03/27/19 13:30 POC ABG pH 7.412 (7.35-7.45) 04/12/19 14:57 ABG pH 7.446 pH Units (7.350-7.450) 04/13/19 05:02 POC ABG pCO2 30.5 (35-45) L 04/12/19 14:57 ABG pCO2 31.7 mm Hg 04/13/19 05:02 POC ABG pO2 60 (80-105) L 04/12/19 14:57 ABG pO2 85.6 mm Hg (80.0-90.0) 04/13/19 05:02 POC ABG HCO3 19.4 (22-26 mml/L) 04/12/19 14:57 ABG HCO3 21.3 mmol/L (20.0-26.0) 04/13/19 05:02 POC ABG Total CO2 20 (23-27mmol/L) 04/12/19 14:57 POC ABG O2 Sat 91 04/12/19 14:57 ABG O2 Saturation 97.2 % (95.0-99.0) 04/13/19 05:02 ABG O2 Content 10.6 (0.0-44) 04/13/19 05:02 POC ABG Base Excess -5 ((-2) - (+3)mmol/L) 04/12/19 14:57 ABG Base Excess -2.3 mmol/L (-2.0-3.0) L 04/13/19 05:02 ABG Hemoglobin 7.8 gm/dl (12.0-16.0) L 04/13/19 05:02 ABG Carboxyhemoglobin 1.6 % (0.0-5.0) 04/13/19 05:02 ABG Methemoglobin 0.6 % (0.0-1.5) 04/13/19 05:02 95.2 % (95.0-99.0) 04/13/19 05:02 21 % 04/13/19 05:02 Sodium 134 mmol/L (137-145) L 04/13/19 02:31 Potassium 3.6 mmol/L (3.6-5.0) 04/13/19 02:31 Chloride 99.9 mmol/L (98-107) 04/13/19 02:31 Carbon Dioxide 22 mmol/L (22-30) 04/13/19 02:31 16 mmol/L 04/13/19 02:31 BUN 18 mg/dL (7-17) H 04/13/19 02:31 0.9 mg/dL (0.7-1.2) 04/13/19 02:31 Estimated GFR > 60 ml/min 04/13/19 02:31 20 % 04/13/19 02:31 Glucose 73 mg/dL (65-100) 04/13/19 02:31 POC Glucose 78 (70-105) 04/13/19 11:27 4.2 % (4-6) 03/20/19 08:23 Lactic Acid 2.00 mmol/L (0.7-2.0) 03/23/19 04:50 Calcium 7.6 mg/dL (8.4-10.2) L 04/13/19 02:31 Phosphorus 2.70 mg/dL (2.5-4.5) D 04/05/19 03:30 Magnesium 2.00 mg/dL (1.7-2.3) 04/05/19 03:30 Iron 32 ug/dL (37-170) L 03/24/19 14:25 TIBC 75 mcg/dL (250-450) L 03/24/19 14:25 448.3 ng/mL (13.0-400.0) H 03/28/19 07:31 0.20 mg/dL (0.1-1.2) 04/13/19 02:31 0.3 mg/dL (0-0.2) H 03/27/19 13:31 0.2 mg/dL 03/27/19 13:31 AST 29 units/L (5-40) 04/13/19 02:31 ALT 10 units/L (7-56) 04/13/19 02:31 101 units/L (35-129) 04/13/19 02:31 1499 units/L (30-135) H 03/19/19 12:59 0.036 ng/mL (0.00-0.029) H 03/22/19 06:10 6.1 g/dL (6.3-8.2) L 04/13/19 02:31 1.6 g/dL (3.9-5) L 04/13/19 02:31 0.4 % 04/13/19 02:31 0.052 g/L (0.200-0.400) L 03/20/19 08:23 Triglycerides 72 mg/dL (2-149) 03/19/19 12:59 Cholesterol 61 mg/dL (50-199) 03/19/19 12:59 22 mg/dL (50-130) L 03/19/19 12:59 31 mg/dL (40-59) L 03/19/19 12:59 1.96 % 03/19/19 12:59 See scanned result 03/27/19 13:30 Vitamin B12 > 2000 pg/mL (211-911) H 03/25/19 10:11 18.61 ng/mL (7.3-26.0) 03/28/19 07:31 TSH 7.810 mlU/mL (0.270-4.200) H 03/22/19 06:10 Free T4 1.21 ng/dL (0.76-1.46) 03/22/19 06:10 PTH Intact 171.6 pg/mL (15-65) H 03/20/19 17:50 Beatrice (Yellow) 04/08/19 19:50 Slightly-cloudy (Clear) 04/08/19 19:50 5.0 (5.0-7.0) 04/08/19 19:50 Ur Specific [place] 1.025 (1.003-1.030) 04/08/19 19:50 100 mg/dl mg/dL (Negative) 04/08/19 19:50 Neg mg/dL (Negative) 04/08/19 19:50 Neg mg/dL (Negative) 04/08/19 19:50 Neg (Negative) 04/08/19 19:50 Neg (Negative) 04/08/19 19:50 Neg (Negative) 04/08/19 19:50 < 2.0 mg/dL (<2.0) 04/08/19 19:50 Ur Leukocyte Esterase Neg (Negative) 04/08/19 19:50 5.0 /HPF (0.0-6.0) 04/08/19 19:50 4.0 /HPF (0.0-6.0) 04/08/19 19:50 U Epithel Cells (Auto) 8.0 /HPF (0-13.0) 04/08/19 19:50 1+ /HPF (Negative) 03/19/19 12:47 Amorphous Crystals Few 04/05/19 13:23 Hyaline Casts 3 /LPF 03/19/19 12:47 Granular Casts 43 /LPF 04/05/19 13:23 Few /HPF 04/08/19 19:50 None seen (None Seen) 03/20/19 16:40 53.7 mg/dL (0.1-20.0) H 03/20/19 16:40 3.8 mg/dL (0.1-34.0) 03/20/19 16:40 Microalb/Creat Ratio 70.7 ug/mg 03/20/19 16:40 116 mmol/L 03/20/19 16:40 36 mg/dL (5-11.8) H 03/20/19 16:40 Vancomycin Trough 23.0 ug/mL (5.0-20.0) H 03/27/19 09:04 Digoxin 2.6 ng/mL (0.9-2.0) H* 03/30/19 04:42 Salicylates < 0.3 mg/dL (2.8-20.0) L 03/19/19 12:59 Acetaminophen < 5.0 ug/mL (10.0-30.0) L 03/19/19 12:59 Heparin-induced Plt Ab Negative (Negative) 03/27/19 13:30 UF Heparin High Dose 0 % Release 03/27/19 13:30 SEMAJ UFH Low Dose 0.1 0 % Release 03/27/19 13:30 SEMAJ UFH Low Dose 0.5 0 % Release 03/27/19 13:30 Blood Type O POSITIVE 04/05/19 06:51 Antibody Screen Negative 04/05/19 06:51 Crossmatch See Detail 04/05/19 06:51 Active Medications - Current Medications Current Medications: Generic Name Dose Route Start Last Admin Trade Name Freq PRN Reason Stop Dose Admin Acetaminophen 650 mg 03/24/19 23:48 04/11/19 09:52 Tylenol FEEDTUBE 650 mg Q6H PRN Administration Pain, Mild (1-3) Albuterol 2.5 mg 03/19/19 23:58 Proventil IH Q3HRT PRN Shortness Of Breath Albuterol/Ipratropium 1 ampul 03/20/19 02:00 04/13/19 08:17 Duoneb *Not For Prn Use* IH 1 ampul Q6HRT YUSUF Administration Amiodarone HCl 200 mg 03/22/19 22:00 04/13/19 11:11 Cordarone PO 200 mg BID YUSUF Administration Lipase/Protease/Amylase 1 each 04/07/19 15:[address] 10,500 Unit FEEDTUBE PRN PRN For Clogged Feeding Tube Aspirin 81 mg 03/21/19 10:00 04/13/19 11:11 Baby Aspirin PO 81 mg DAILY YUSUF Administration Budesonide 0.5 mg 03/19/19 23:45 04/13/19 08:17 Pulmicort IH 0.5 mg Q12HRT YUSUF Administration Dextrose 50 ml 03/19/19 23:58 03/21/19 16:29 D50w (25gm) Syringe IV 50 ml PRN PRN Administration Hypoglycemia Famotidine 20 mg 03/22/19 10:00 04/12/19 21:15 Pepcid PO 20 mg BID YUSUF Administration Fentanyl 50 mcg 03/19/19 12:45 04/12/19 19:30 Sublimaze IV 50 mcg Q10MIN PRN Administration ANALGESIA Hydromorphone HCl 0.5 mg 03/19/19 23:58 04/13/19 02:25 Dilaudid IV 0.5 mg Q3H PRN Administration Pain , Severe (7-10) Hydrophilic Ointment 1 applic 03/19/19 12:45 Vaseline Lip Therapy TP Q2HR PRN Dry Lips Fentanyl Citrate 2,000 mcg in 100 mls @ 2.835 mls/hr 03/19/19 14:00 03/21/19 11:33 Fentanyl Drip Premix IV 0 mcg/kg/hr TITR YUSUF 0 mls/hr Titration Protocol 1 MCG/KG/HR Norepinephrine 4 mg in 250 mls @ 7.5 mls/hr 03/25/19 11:00 03/30/19 23:45 Levophed Drip 4 Mg/Ns 250 Ml IV 0 mcg/min TITR YUSUF 0 mls/hr Titration Protocol 2 MCG/MIN Sodium Chloride 1,000 mls @ 50 mls/hr 04/11/19 13:00 Nacl 0.9% 1000 Ml IV DIRECT YUSUF Heparin Sodium/Sodium Chloride 25,000 unit in 500 mls @ 18 mls/hr 04/12/19 12:00 04/13/19 03:47 Heparin/ 0.45% Nacl-25,000 Unit/500 Ml IV 1,000 units/hr TITR YUSUF 20 mls/hr Titration Protocol 900 UNITS/HR Insulin Human Lispro 0 unit 03/20/19 00:00 04/13/19 08:53 Humalog SUB-Q Not Given Q6HR [facility] Protocol Metoclopramide HCl 5 mg 03/20/19 00:12 Reglan IV Q6H PRN Nausea And Vomiting Metoprolol Tartrate 2.5 mg 03/23/19 13:17 03/24/19 21:20 Lopressor IV 2.5 mg Q2HR PRN Administration HR >150 Metoprolol Tartrate 12.5 mg 04/11/19 22:00 04/13/19 11:11 Lopressor PO 12.5 mg BID YUSUF Administration Multi-Ingred Cream/Lotion/Oil/Oint 1 applic 03/19/19 12:45 Artificial Tears Ophth Oint OU Q4HR PRN Dry Eye(s) Ondansetron HCl 4 mg 03/19/19 23:58 Zofran IV Q8H PRN Nausea And Vomiting Promethazine HCl 25 mg 03/19/19 23:58 Phenergan WI Q6H PRN N/V IF NPO AND NO IV ACCESS Simple Syrup 15 ml 04/07/19 15:50 Simple Syrup FEEDTUBE PRN PRN Hypoglycemia Simple Syrup 30 ml 04/07/19 15:50 Simple Syrup FEEDTUBE PRN PRN Hypoglycemia Sodium Bicarbonate 325 mg 04/07/19 15:50 Sodium Bicarbonate FEEDTUBE PRN PRN For Clogged Feeding Tube Sodium Chloride 10 ml 03/20/19 10:00 04/12/19 21:16 Sodium Chloride Flush Syringe 10 Ml IV 10 ml BID YUSUF Administration Sodium Chloride 10 ml 03/19/19 23:58 04/07/19 10:45 Sodium Chloride Flush Syringe 10 Ml IV 10 ml PRN PRN Administration LINE FLUSH Trimethoprim/Sulfamethoxazole 1 each 04/07/19 14:00 04/13/19 11:11 Bactrim Ds PO 04/14/19 22:01 1 each Q12HR YUSUF Administration Nutrition/Malnutrition Assess - Dietary Evaluation Nutrition/Malnutrition Findings: Nutrition Notes Start: 03/20/19 15:29 Freq: Status: Active Protocol: Document 04/07/19 15:45 RM (Rec: 04/07/19 15:48 RM [id number]) Nutrition Notes Initial or Follow up Reassessment Other Pertinent Diagnosis Hx CVA, dementia, R buttock skin tear Current Diet No diet ordered Labs/Tests Reviewed Pertinent Medications Reviewed Height 5 ft 5 in Weight 63.5 kg [place] Body Weight (kg) 56.81 BMI 23.3 Subjective/Other Information Observed Vital 1.2 infusing at 45 ml/hr. Percent of energy/protein needs met: 93%/100% Burn Absent Trauma Absent #1 Nutrition Diagnosis Inadequate oral intake Diagnosis Progress(for reassessment Continues documentation) Is patient on ventilator? Yes Is Patient Ambulatory and/or Out of Bed No REE-([facility]-confined to bed) 1387.104 Calculation Used for Recommendations [facility] Additional Notes Protein Needs: 75-124g (1.2-2g /kg) Fluid Needs: 1 ml/kcal Nutrition Intervention Nutrition Support: Vital 1.2 at 45 ml/hr Water flush of 100 mls 4 q hrs Kcal 1,296 Protein (gm) 81 Fluid (mL) 876 Goal #1 TF tolerance Goal #2 Continue to meet at least 80% of calorie and protein needs via TF Anticipated Discharge Needs: Unable to determine at this time Follow-Up By: 04/14/19 Additional Comments Follow for stable TF
[2019-04-13] MEDS ORDERED: NACL 0.9% 500 ML 500 ML IV ONE (13:00)
[2019-04-13] MEDS: HEPARIN/ 0.45% NACL-25,000 UNIT/500 ML 25,000 UNIT/500 ML BAG IV SCH (13:26)
[2019-04-13] MEDS: SODIUM CHLORIDE FLUSH SYRINGE 10 ML IV SCH (13:39)
--- NOTE | 2019-04-13 14:01 | Progress Note ---
Assessment and Plan 73 y/o female found unresponsive now intubated and septic, etiology thought secondary to pneumonia with anemia and thrombocytopenia, and persistent fevers found to have multiple DVT's. 1. POD 2 from trach and peg. Both sites look good. 2. Hypoxemia improved but work of breathing is worsening. 3. Will likely need LTACH as she continues to fail PSV daily 4. Hypotension, after lasix, gave bolus 5. Overall prognosis is very poor. I had a long discussion with family about 2 weeks ago but they felt patient was improving so elected aggressive care. Unfortunately I feel that she is worsening and will likely see demise soon. She is an AND which the family is aware of. She is a candidate for LTACH but cannot go until [employer] approves. CCT 31 minutes. Subjective Date of service: 04/13/19 Principal diagnosis: anemia - DVT Interval history: Hypotension and worsening respiratory status. Had to increase PEEP yesterday but decreased today secondary blood pressure Objective Vital Signs - 12hr 04/13/19 04/13/19 04/13/19 02:00 03:00 04:00 Temperature 98 F Pulse Rate 99 H 97 H 100 H Pulse Rate [ 101 H Anterior Bilateral Throughout] Pulse Rate [ 90 From Monitor] Respiratory 30 H 30 H 41 H Rate Respiratory 24 Rate [Anterior Bilateral Throughout] Blood Pressure 128/61 97/45 134/72 O2 Sat by Pulse 97 97 98 Oximetry O2 Sat by Pulse Oximetry [ Assessment] 04/13/19 04/13/19 04/13/19 04:52 05:00 06:01 Temperature Pulse Rate 100 H 104 H Pulse Rate [ Anterior Bilateral Throughout] Pulse Rate [ From Monitor] Respiratory 25 H 31 H Rate Respiratory Rate [Anterior Bilateral Throughout] Blood Pressure 96/52 138/71 O2 Sat by Pulse 97 94 Oximetry O2 Sat by Pulse 98 Oximetry [ Assessment] 04/13/19 04/13/19 04/13/19 07:00 08:00 08:21 Temperature 100.8 F H Pulse Rate 102 H 100 H 103 H Pulse Rate [ Anterior Bilateral Throughout] Pulse Rate [ From Monitor] Respiratory 39 H 21 Rate Respiratory Rate [Anterior Bilateral Throughout] Blood Pressure 126/78 120/53 126/56 O2 Sat by Pulse 97 96 97 Oximetry O2 Sat by Pulse Oximetry [ Assessment] 04/13/19 04/13/19 04/13/19 09:00 10:00 11:00 Temperature Pulse Rate 116 H 125 H 129 H Pulse Rate [ Anterior Bilateral Throughout] Pulse Rate [ From Monitor] Respiratory 32 H 38 H 51 H Rate Respiratory Rate [Anterior Bilateral Throughout] Blood Pressure 146/65 139/55 180/86 O2 Sat by Pulse 88 93 91 Oximetry O2 Sat by Pulse Oximetry [ Assessment] 04/13/19 04/13/19 04/13/19 11:11 12:00 13:00 Temperature Pulse Rate 122 H 95 H 93 H Pulse Rate [ Anterior Bilateral Throughout] Pulse Rate [ From Monitor] Respiratory 37 H 35 H Rate Respiratory Rate [Anterior Bilateral Throughout] Blood Pressure 118/55 73/41 100/51 O2 Sat by Pulse 93 88 Oximetry O2 Sat by Pulse Oximetry [ Assessment] Constitutional: other (intubated, critically ill on ventilator, awake) Eyes: non-icteric ENT: other (intubated ) Neck: supple Effort: normal Ascultation: Bilateral: diminished breath sounds, rales (coarse bilat ), other (coarse BS bilaterally) Percussion: Bilateral: not dull, dull Cardiovascular: other (tachy AF, no mrg) Gastrointestinal: normoactive bowel sounds, soft, non-tender, non-distended Integumentary: normal Extremities: anasarca Neurologic: other (awake, alert, L sided hemiparesis, contractures upper extremities) Psychiatric: mood appropriate, affect normal CBC and BMP: 04/13/19 02:31 04/13/19 02:31 ABG, PT/INR, D-dimer: ABG POC ABG pH 7.412 (7.35-7.45) 04/12/19 14:57 ABG pH 7.446 pH Units (7.350-7.450) 04/13/19 05:02 POC ABG pCO2 30.5 (35-45) L 04/12/19 14:57 ABG pCO2 31.7 mm Hg 04/13/19 05:02 POC ABG pO2 60 (80-105) L 04/12/19 14:57 ABG pO2 85.6 mm Hg (80.0-90.0) 04/13/19 05:02 POC ABG HCO3 19.4 (22-26 mml/L) 04/12/19 14:57 POC ABG Total CO2 20 (23-27mmol/L) 04/12/19 14:57 POC ABG O2 Sat 91 04/12/19 14:57 ABG O2 Saturation 97.2 % (95.0-99.0) 04/13/19 05:02 PT/INR, D-dimer PT 16.6 Sec. (12.2-14.9) H 04/12/19 11:30 INR 1.38 (0.87-1.13) H 04/12/19 11:30 Abnormal lab findings: Abnormal Labs 03/19/19 03/19/19 03/19/19 12:59 12:59 12:59 WBC RBC 3.44 L Hgb Hct MCV 101 H MCH 34 H MCHC RDW Plt Count 98 L Lymph % (Auto) [place] % (Auto) Eos % (Auto) Lymph # [place] # Eos # Seg Neutrophils % Seg Neuts % (Manual) 11.0 L Lymphocytes % (Manual) Monocytes % (Manual) 10.0 H Eosinophils % (Manual) Nucleated RBC % 1.0 H Seg Neutrophils # Seg Neutrophils # Man 0.6 L Lymphocytes # (Manual) Monocytes # (Manual) Eosinophils # (Manual) PT INR APTT Heparin Anti-Xa Level POC ABG pH POC ABG pCO2 POC ABG pO2 ABG Base Excess ABG Hemoglobin Sodium 149 H Potassium Chloride 109.4 H Carbon Dioxide BUN 51 H Creatinine 3.2 H Glucose 58 L POC Glucose Lactic Acid 7.60 H* Calcium 7.8 L Phosphorus Magnesium 1.60 L Iron TIBC Ferritin Direct Bilirubin AST 75 H Total Creatine Kinase 1499 H Troponin T 0.109 H* Total Protein 5.2 L Albumin 1.7 L Prealbumin LDL Cholesterol Direct 22 L HDL Cholesterol 31 L Vitamin B12 TSH PTH Intact Urine Creatinine Urine Total Protein Vancomycin Trough Digoxin Salicylates Acetaminophen Crossmatch 03/19/19 03/19/19 03/19/19 12:59 12:59 14:48 WBC RBC Hgb Hct MCV MCH MCHC RDW Plt Count Lymph % (Auto) [place] % (Auto) Eos % (Auto) Lymph # [place] # Eos # Seg Neutrophils % Seg Neuts % (Manual) Lymphocytes % (Manual) Monocytes % (Manual) Eosinophils % (Manual) Nucleated RBC % Seg Neutrophils # Seg Neutrophils # Man Lymphocytes # (Manual) Monocytes # (Manual) Eosinophils # (Manual) PT INR APTT Heparin Anti-Xa Level POC ABG pH POC ABG pCO2 POC ABG pO2 ABG Base Excess ABG Hemoglobin Sodium Potassium Chloride Carbon Dioxide BUN Creatinine Glucose POC Glucose 44 L Lactic Acid Calcium Phosphorus Magnesium Iron TIBC Ferritin Direct Bilirubin AST Total Creatine Kinase Troponin T Total Protein Albumin Prealbumin LDL Cholesterol Direct HDL Cholesterol Vitamin B12 TSH PTH Intact Urine Creatinine Urine Total Protein Vancomycin Trough Digoxin Salicylates < 0.3 L Acetaminophen < 5.0 L Crossmatch 03/19/19 03/19/19 03/19/19 15:33 15:52 16:26 WBC RBC Hgb Hct MCV MCH MCHC RDW Plt Count Lymph % (Auto) [place] % (Auto) Eos % (Auto) Lymph # [place] # Eos # Seg Neutrophils % Seg Neuts % (Manual) Lymphocytes % (Manual) Monocytes % (Manual) Eosinophils % (Manual) Nucleated RBC % Seg Neutrophils # Seg Neutrophils # Man Lymphocytes # (Manual) Monocytes # (Manual) Eosinophils # (Manual) PT INR APTT Heparin Anti-Xa Level POC ABG pH POC ABG pCO2 POC ABG pO2 ABG Base Excess ABG Hemoglobin Sodium Potassium Chloride Carbon Dioxide BUN Creatinine Glucose POC Glucose 228 H 231 H Lactic Acid Calcium Phosphorus Magnesium Iron TIBC Ferritin Direct Bilirubin AST Total Creatine Kinase Troponin T Total Protein Albumin Prealbumin LDL Cholesterol Direct HDL Cholesterol Vitamin B12 TSH PTH Intact Urine Creatinine 31.8 H Urine Total Protein Vancomycin Trough Digoxin Salicylates Acetaminophen Crossmatch 03/19/19 03/19/19 03/19/19 16:38 17:14 18:43 WBC RBC Hgb Hct MCV MCH MCHC RDW Plt Count Lymph % (Auto) [place] % (Auto) Eos % (Auto) Lymph # [place] # Eos # Seg Neutrophils % Seg Neuts % (Manual) Lymphocytes % (Manual) Monocytes % (Manual) Eosinophils % (Manual) Nucleated RBC % Seg Neutrophils # Seg Neutrophils # Man Lymphocytes # (Manual) Monocytes # (Manual) Eosinophils # (Manual) PT INR APTT Heparin Anti-Xa Level POC ABG pH 7.196 L POC ABG pCO2 30.8 L POC ABG pO2 ABG Base Excess ABG Hemoglobin Sodium Potassium Chloride Carbon Dioxide BUN Creatinine Glucose POC Glucose 235 H Lactic Acid 8.10 H* Calcium Phosphorus Magnesium Iron TIBC Ferritin Direct Bilirubin AST Total Creatine Kinase Troponin T Total Protein Albumin Prealbumin LDL Cholesterol Direct HDL Cholesterol Vitamin B12 TSH PTH Intact Urine Creatinine Urine Total Protein Vancomycin Trough Digoxin Salicylates Acetaminophen Crossmatch 03/19/19 03/19/19 03/19/19 18:52 20:00 20:56 WBC RBC Hgb Hct MCV MCH MCHC RDW Plt Count Lymph % (Auto) [place] % (Auto) Eos % (Auto) Lymph # [place] # Eos # Seg Neutrophils % Seg Neuts % (Manual) Lymphocytes % (Manual) Monocytes % (Manual) Eosinophils % (Manual) Nucleated RBC % Seg Neutrophils # Seg Neutrophils # Man Lymphocytes # (Manual) Monocytes # (Manual) Eosinophils # (Manual) PT INR APTT Heparin Anti-Xa Level POC ABG pH POC ABG pCO2 POC ABG pO2 ABG Base Excess ABG Hemoglobin Sodium Potassium Chloride Carbon Dioxide BUN Creatinine Glucose POC Glucose 240 H 117 H Lactic Acid 5.90 H* Calcium Phosphorus Magnesium Iron TIBC Ferritin Direct Bilirubin AST Total Creatine Kinase Troponin T Total Protein Albumin Prealbumin LDL Cholesterol Direct HDL Cholesterol Vitamin B12 TSH PTH Intact Urine Creatinine Urine Total Protein Vancomycin Trough Digoxin Salicylates Acetaminophen Crossmatch 03/19/19 03/19/19 03/19/19 21:19 22:07 23:00 WBC RBC Hgb Hct MCV MCH MCHC RDW Plt Count Lymph % (Auto) [place] % (Auto) Eos % (Auto) Lymph # [place] # Eos # Seg Neutrophils % Seg Neuts % (Manual) Lymphocytes % (Manual) Monocytes % (Manual) Eosinophils % (Manual) Nucleated RBC % Seg Neutrophils # Seg Neutrophils # Man Lymphocytes # (Manual) Monocytes # (Manual) Eosinophils # (Manual) PT INR APTT Heparin Anti-Xa Level POC ABG pH POC ABG pCO2 POC ABG pO2 ABG Base Excess ABG Hemoglobin Sodium Potassium Chloride Carbon Dioxide BUN Creatinine Glucose POC Glucose < 40 L 136 H Lactic Acid 6.10 H* Calcium Phosphorus Magnesium Iron TIBC Ferritin Direct Bilirubin AST Total Creatine Kinase Troponin T Total Protein Albumin Prealbumin LDL Cholesterol Direct HDL Cholesterol Vitamin B12 TSH PTH Intact Urine Creatinine Urine Total Protein Vancomycin Trough Digoxin Salicylates Acetaminophen Crossmatch 03/20/19 03/20/19 03/20/19 00:05 01:38 02:23 WBC RBC Hgb Hct MCV MCH MCHC RDW Plt Count Lymph % (Auto) [place] % (Auto) Eos % (Auto) Lymph # [place] # Eos # Seg Neutrophils % Seg Neuts % (Manual) Lymphocytes % (Manual) Monocytes % (Manual) Eosinophils % (Manual) Nucleated RBC % Seg Neutrophils # Seg Neutrophils # Man Lymphocytes # (Manual) Monocytes # (Manual) Eosinophils # (Manual) PT INR APTT Heparin Anti-Xa Level POC ABG pH POC ABG pCO2 POC ABG pO2 ABG Base Excess ABG Hemoglobin Sodium Potassium Chloride Carbon Dioxide BUN Creatinine Glucose POC Glucose 68 L 153 H 127 H Lactic Acid Calcium Phosphorus Magnesium Iron TIBC Ferritin Direct Bilirubin AST Total Creatine Kinase Troponin T Total Protein Albumin Prealbumin LDL Cholesterol Direct HDL Cholesterol Vitamin B12 TSH PTH Intact Urine Creatinine Urine Total Protein Vancomycin Trough Digoxin Salicylates Acetaminophen Crossmatch 03/20/19 03/20/19 03/20/19 03:12 04:31 04:41 WBC RBC Hgb Hct MCV MCH MCHC RDW Plt Count Lymph % (Auto) [place] % (Auto) Eos % (Auto) Lymph # [place] # Eos # Seg Neutrophils % Seg Neuts % (Manual) Lymphocytes % (Manual) Monocytes % (Manual) Eosinophils % (Manual) Nucleated RBC % Seg Neutrophils # Seg Neutrophils # Man Lymphocytes # (Manual) Monocytes # (Manual) Eosinophils # (Manual) PT INR APTT Heparin Anti-Xa Level POC ABG pH POC ABG pCO2 POC ABG pO2 53 L 65 L ABG Base Excess ABG Hemoglobin Sodium Potassium Chloride Carbon Dioxide BUN Creatinine Glucose POC Glucose 109 H Lactic Acid Calcium Phosphorus Magnesium Iron TIBC Ferritin Direct Bilirubin AST Total Creatine Kinase Troponin T Total Protein Albumin Prealbumin LDL Cholesterol Direct HDL Cholesterol Vitamin B12 TSH PTH Intact Urine Creatinine Urine Total Protein Vancomycin Trough Digoxin Salicylates Acetaminophen Crossmatch 03/20/19 03/20/19 03/20/19 05:50 07:29 08:14 WBC RBC Hgb Hct MCV MCH MCHC RDW Plt Count Lymph % (Auto) [place] % (Auto) Eos % (Auto) Lymph # [place] # Eos # Seg Neutrophils % Seg Neuts % (Manual) Lymphocytes % (Manual) Monocytes % (Manual) Eosinophils % (Manual) Nucleated RBC % Seg Neutrophils # Seg Neutrophils # Man Lymphocytes # (Manual) Monocytes # (Manual) Eosinophils # (Manual) PT INR APTT Heparin Anti-Xa Level POC ABG pH POC ABG pCO2 POC ABG pO2 ABG Base Excess ABG Hemoglobin Sodium Potassium Chloride Carbon Dioxide BUN Creatinine Glucose 61 L POC Glucose 47 L 153 H Lactic Acid Calcium Phosphorus Magnesium 1.60 L Iron TIBC Ferritin Direct Bilirubin AST Total Creatine Kinase Troponin T Total Protein Albumin Prealbumin LDL Cholesterol Direct HDL Cholesterol Vitamin B12 TSH PTH Intact Urine Creatinine Urine Total Protein Vancomycin Trough Digoxin Salicylates Acetaminophen Crossmatch 03/20/19 03/20/19 03/20/19 08:23 08:23 10:59 WBC RBC Hgb Hct MCV MCH MCHC RDW Plt Count Lymph % (Auto) [place] % (Auto) Eos % (Auto) Lymph # [place] # Eos # Seg Neutrophils % Seg Neuts % (Manual) Lymphocytes % (Manual) Monocytes % (Manual) Eosinophils % (Manual) Nucleated RBC % Seg Neutrophils # Seg Neutrophils # Man Lymphocytes # (Manual) Monocytes # (Manual) Eosinophils # (Manual) PT INR APTT Heparin Anti-Xa Level POC ABG pH POC ABG pCO2 POC ABG pO2 ABG Base Excess ABG Hemoglobin Sodium Potassium Chloride Carbon Dioxide BUN Creatinine Glucose 101 H POC Glucose 233 H Lactic Acid 9.70 H* Calcium Phosphorus Magnesium Iron TIBC Ferritin Direct Bilirubin AST Total Creatine Kinase Troponin T Total Protein Albumin Prealbumin 0.052 L LDL Cholesterol Direct HDL Cholesterol Vitamin B12 TSH PTH Intact Urine Creatinine Urine Total Protein Vancomycin Trough Digoxin Salicylates Acetaminophen Crossmatch 03/20/19 03/20/19 03/20/19 12:23 16:10 16:40 WBC RBC Hgb Hct MCV MCH MCHC RDW Plt Count Lymph % (Auto) [place] % (Auto) Eos % (Auto) Lymph # [place] # Eos # Seg Neutrophils % Seg Neuts % (Manual) Lymphocytes % (Manual) Monocytes % (Manual) Eosinophils % (Manual) Nucleated RBC % Seg Neutrophils # Seg Neutrophils # Man Lymphocytes # (Manual) Monocytes # (Manual) Eosinophils # (Manual) PT INR APTT Heparin Anti-Xa Level POC ABG pH POC ABG pCO2 POC ABG pO2 ABG Base Excess ABG Hemoglobin Sodium Potassium Chloride Carbon Dioxide BUN Creatinine Glucose POC Glucose 135 H 171 H Lactic Acid Calcium Phosphorus Magnesium Iron TIBC Ferritin Direct Bilirubin AST Total Creatine Kinase Troponin T Total Protein Albumin Prealbumin LDL Cholesterol Direct HDL Cholesterol Vitamin B12 TSH PTH Intact Urine Creatinine 53.7 H Urine Total Protein 36 H Vancomycin Trough Digoxin Salicylates Acetaminophen Crossmatch 03/20/19 03/20/19 03/20/19 16:57 17:38 17:50 WBC RBC Hgb Hct MCV MCH MCHC RDW Plt Count Lymph % (Auto) [place] % (Auto) Eos % (Auto) Lymph # [place] # Eos # Seg Neutrophils % Seg Neuts % (Manual) Lymphocytes % (Manual) Monocytes % (Manual) Eosinophils % (Manual) Nucleated RBC % Seg Neutrophils # Seg Neutrophils # Man Lymphocytes # (Manual) Monocytes # (Manual) Eosinophils # (Manual) PT INR APTT Heparin Anti-Xa Level POC ABG pH POC ABG pCO2 POC ABG pO2 ABG Base Excess ABG Hemoglobin Sodium Potassium Chloride Carbon Dioxide BUN Creatinine Glucose POC Glucose 152 H 147 H Lactic Acid 9.90 H* Calcium Phosphorus Magnesium Iron TIBC Ferritin Direct Bilirubin AST Total Creatine Kinase Troponin T Total Protein Albumin Prealbumin LDL Cholesterol Direct HDL Cholesterol Vitamin B12 TSH PTH Intact Urine Creatinine Urine Total Protein Vancomycin Trough Digoxin Salicylates Acetaminophen Crossmatch 03/20/19 03/20/19 03/20/19 17:50 17:50 17:50 WBC RBC 2.92 L Hgb 10.0 L Hct 29.3 L MCV 100 H MCH 34 H MCHC RDW Plt Count 81 L Lymph % (Auto) [place] % (Auto) Eos % (Auto) Lymph # [place] # Eos # Seg Neutrophils % Seg Neuts % (Manual) Lymphocytes % (Manual) Monocytes % (Manual) Eosinophils % (Manual) Nucleated RBC % Seg Neutrophils # Seg Neutrophils # Man Lymphocytes # (Manual) Monocytes # (Manual) Eosinophils # (Manual) PT INR APTT Heparin Anti-Xa Level POC ABG pH POC ABG pCO2 POC ABG pO2 ABG Base Excess ABG Hemoglobin Sodium Potassium 2.8 L* D Chloride Carbon Dioxide BUN 30 H Creatinine 1.6 H Glucose 107 H POC Glucose Lactic Acid Calcium 6.9 L Phosphorus 2.00 L Magnesium Iron TIBC Ferritin Direct Bilirubin AST Total Creatine Kinase Troponin T Total Protein Albumin Prealbumin LDL Cholesterol Direct HDL Cholesterol Vitamin B12 TSH PTH Intact 171.6 H Urine Creatinine Urine Total Protein Vancomycin Trough Digoxin Salicylates Acetaminophen Crossmatch 03/20/19 03/21/19 03/21/19 21:12 00:30 04:12 WBC RBC Hgb Hct MCV MCH MCHC RDW Plt Count Lymph % (Auto) [place] % (Auto) Eos % (Auto) Lymph # [place] # Eos # Seg Neutrophils % Seg Neuts % (Manual) Lymphocytes % (Manual) Monocytes % (Manual) Eosinophils % (Manual) Nucleated RBC % Seg Neutrophils # Seg Neutrophils # Man Lymphocytes # (Manual) Monocytes # (Manual) Eosinophils # (Manual) PT INR APTT Heparin Anti-Xa Level POC ABG pH POC ABG pCO2 POC ABG pO2 ABG Base Excess ABG Hemoglobin Sodium Potassium 3.0 L Chloride Carbon Dioxide 21 L BUN Creatinine 1.4 H Glucose 103 H POC Glucose Lactic Acid 8.70 H* 9.40 H* Calcium 6.8 L Phosphorus Magnesium Iron TIBC Ferritin Direct Bilirubin AST Total Creatine Kinase Troponin T Total Protein Albumin Prealbumin LDL Cholesterol Direct HDL Cholesterol Vitamin B12 TSH PTH Intact Urine Creatinine Urine Total Protein Vancomycin Trough Digoxin Salicylates Acetaminophen Crossmatch 03/21/19 03/21/19 03/21/19 04:12 04:12 04:43 WBC RBC 2.84 L Hgb 9.5 L Hct 28.3 L MCV 100 H MCH 33 H MCHC RDW Plt Count 79 L Lymph % (Auto) [place] % (Auto) Eos % (Auto) Lymph # [place] # Eos # Seg Neutrophils % Seg Neuts % (Manual) Lymphocytes % (Manual) Monocytes % (Manual) Eosinophils % (Manual) Nucleated RBC % Seg Neutrophils # Seg Neutrophils # Man Lymphocytes # (Manual) Monocytes # (Manual) Eosinophils # (Manual) PT INR APTT Heparin Anti-Xa Level POC ABG pH 7.456 H POC ABG pCO2 POC ABG pO2 ABG Base Excess ABG Hemoglobin Sodium Potassium Chloride Carbon Dioxide BUN Creatinine Glucose POC Glucose Lactic Acid 9.50 H* Calcium Phosphorus Magnesium Iron TIBC Ferritin Direct Bilirubin AST Total Creatine Kinase Troponin T Total Protein Albumin Prealbumin LDL Cholesterol Direct HDL Cholesterol Vitamin B12 TSH PTH Intact Urine Creatinine Urine Total Protein Vancomycin Trough Digoxin Salicylates Acetaminophen Crossmatch 03/21/19 03/21/19 03/21/19 08:06 08:08 10:11 WBC RBC Hgb Hct MCV MCH MCHC RDW Plt Count Lymph % (Auto) [place] % (Auto) Eos % (Auto) Lymph # [place] # Eos # Seg Neutrophils % Seg Neuts % (Manual) Lymphocytes % (Manual) Monocytes % (Manual) Eosinophils % (Manual) Nucleated RBC % Seg Neutrophils # Seg Neutrophils # Man Lymphocytes # (Manual) Monocytes # (Manual) Eosinophils # (Manual) PT INR APTT Heparin Anti-Xa Level POC ABG pH POC ABG pCO2 POC ABG pO2 ABG Base Excess ABG Hemoglobin Sodium Potassium 3.5 L Chloride Carbon Dioxide BUN 22 H Creatinine 1.3 H Glucose POC Glucose 64 L Lactic Acid 8.00 H* Calcium 7.0 L Phosphorus Magnesium Iron TIBC Ferritin Direct Bilirubin AST Total Creatine Kinase Troponin T Total Protein Albumin Prealbumin LDL Cholesterol Direct HDL Cholesterol Vitamin B12 TSH PTH Intact Urine Creatinine Urine Total Protein Vancomycin Trough Digoxin Salicylates Acetaminophen Crossmatch 03/21/19 03/21/1903/21/19 11:17 12:17 13:37 WBC RBC Hgb Hct MCV MCH MCHC RDW Plt Count Lymph % (Auto) [place] % (Auto) Eos % (Auto) Lymph # [place] # Eos # Seg Neutrophils % Seg Neuts % (Manual) Lymphocytes % (Manual) Monocytes % (Manual) Eosinophils % (Manual) Nucleated RBC % Seg Neutrophils # Seg Neutrophils # Man Lymphocytes # (Manual) Monocytes # (Manual) Eosinophils # (Manual) PT INR APTT Heparin Anti-Xa Level POC ABG pH POC ABG pCO2 POC ABG pO2 ABG Base Excess ABG Hemoglobin Sodium Potassium Chloride Carbon Dioxide BUN Creatinine Glucose POC Glucose 173 H 110 H Lactic Acid Calcium Phosphorus Magnesium Iron TIBC Ferritin Direct Bilirubin AST Total Creatine Kinase Troponin T 0.033 H D Total Protein Albumin Prealbumin LDL Cholesterol Direct HDL Cholesterol Vitamin B12 TSH PTH Intact Urine Creatinine Urine Total Protein Vancomycin Trough Digoxin Salicylates Acetaminophen Crossmatch 03/21/19 03/21/19 03/21/19 13:37 17:21 18:52 WBC RBC Hgb Hct MCV MCH MCHC RDW Plt Count Lymph % (Auto) [place] % (Auto) Eos % (Auto) Lymph # [place] # Eos # Seg Neutrophils % Seg Neuts % (Manual) Lymphocytes % (Manual) Monocytes % (Manual) Eosinophils % (Manual) Nucleated RBC % Seg Neutrophils # Seg Neutrophils # Man Lymphocytes # (Manual) Monocytes # (Manual) Eosinophils # (Manual) PT INR APTT Heparin Anti-Xa Level POC ABG pH POC ABG pCO2 POC ABG pO2 ABG Base Excess ABG Hemoglobin Sodium Potassium Chloride Carbon Dioxide BUN Creatinine Glucose POC Glucose 130 H 107 H Lactic Acid 6.80 H* Calcium Phosphorus Magnesium Iron TIBC Ferritin Direct Bilirubin AST Total Creatine Kinase Troponin T Total Protein Albumin Prealbumin LDL Cholesterol Direct HDL Cholesterol Vitamin B12 TSH PTH Intact Urine Creatinine Urine Total Protein Vancomycin Trough Digoxin Salicylates Acetaminophen Crossmatch 03/21/19 03/21/19 03/21/19 20:20 22:08 23:05 WBC RBC Hgb Hct MCV MCH MCHC RDW Plt Count Lymph % (Auto) [place] % (Auto) Eos % (Auto) Lymph # [place] # Eos # Seg Neutrophils % Seg Neuts % (Manual) Lymphocytes % (Manual) Monocytes % (Manual) Eosinophils % (Manual) Nucleated RBC % Seg Neutrophils # Seg Neutrophils # Man Lymphocytes # (Manual) Monocytes # (Manual) Eosinophils # (Manual) PT INR APTT Heparin Anti-Xa Level POC ABG pH POC ABG pCO2 POC ABG pO2 ABG Base Excess ABG Hemoglobin Sodium Potassium Chloride Carbon Dioxide BUN Creatinine Glucose POC Glucose 106 H 106 H Lactic Acid Calcium Phosphorus Magnesium Iron TIBC Ferritin Direct Bilirubin AST Total Creatine Kinase Troponin T 0.036 H Total Protein Albumin Prealbumin LDL Cholesterol Direct HDL Cholesterol Vitamin B12 TSH PTH Intact Urine Creatinine Urine Total Protein Vancomycin Trough Digoxin Salicylates Acetaminophen Crossmatch 03/21/19 03/21/19 03/22/19 23:05 23:05 00:14 WBC RBC Hgb Hct MCV MCH MCHC RDW Plt Count Lymph % (Auto) [place] % (Auto) Eos % (Auto) Lymph # [place] # Eos # Seg Neutrophils % Seg Neuts % (Manual) Lymphocytes % (Manual) Monocytes % (Manual) Eosinophils % (Manual) Nucleated RBC % Seg Neutrophils # Seg Neutrophils # Man Lymphocytes # (Manual) Monocytes # (Manual) Eosinophils # (Manual) PT INR APTT Heparin Anti-Xa Level POC ABG pH POC ABG pCO2 POC ABG pO2 ABG Base Excess ABG Hemoglobin Sodium Potassium Chloride Carbon Dioxide BUN Creatinine Glucose POC Glucose 122 H 109 H Lactic Acid 7.00 H* Calcium Phosphorus Magnesium Iron TIBC Ferritin Direct Bilirubin AST Total Creatine Kinase Troponin T Total Protein Albumin Prealbumin LDL Cholesterol Direct HDL Cholesterol Vitamin B12 TSH PTH Intact Urine Creatinine Urine Total Protein Vancomycin Trough Digoxin Salicylates Acetaminophen Crossmatch 03/22/19 03/22/19 03/22/19 03:10 04:02 05:11 WBC RBC Hgb Hct MCV MCH MCHC RDW Plt Count Lymph % (Auto) [place] % (Auto) Eos % (Auto) Lymph # [place] # Eos # Seg Neutrophils % Seg Neuts % (Manual) Lymphocytes % (Manual) Monocytes % (Manual) Eosinophils % (Manual) Nucleated RBC % Seg Neutrophils # Seg Neutrophils # Man Lymphocytes # (Manual) Monocytes # (Manual) Eosinophils # (Manual) PT INR APTT Heparin Anti-Xa Level POC ABG pH 7.487 H POC ABG pCO2 POC ABG pO2 67 L ABG Base Excess ABG Hemoglobin Sodium Potassium Chloride Carbon Dioxide BUN Creatinine Glucose POC Glucose 114 H 112 H Lactic Acid Calcium Phosphorus Magnesium Iron TIBC Ferritin Direct Bilirubin AST Total Creatine Kinase Troponin T Total Protein Albumin Prealbumin LDL Cholesterol Direct HDL Cholesterol Vitamin B12 TSH PTH Intact Urine Creatinine Urine Total Protein Vancomycin Trough Digoxin Salicylates Acetaminophen Crossmatch 03/22/19 03/22/19 03/22/19 06:06 06:10 06:10 WBC RBC Hgb Hct MCV MCH MCHC RDW Plt Count Lymph % (Auto) [place] % (Auto) Eos % (Auto) Lymph # [place] # Eos # Seg Neutrophils % Seg Neuts % (Manual) Lymphocytes % (Manual) Monocytes % (Manual) Eosinophils % (Manual) Nucleated RBC % Seg Neutrophils # Seg Neutrophils # Man Lymphocytes # (Manual) Monocytes # (Manual) Eosinophils # (Manual) PT INR APTT Heparin Anti-Xa Level POC ABG pH POC ABG pCO2 POC ABG pO2 ABG Base Excess ABG Hemoglobin Sodium Potassium 3.0 L Chloride Carbon Dioxide BUN Creatinine Glucose POC Glucose 115 H Lactic Acid Calcium 7.0 L Phosphorus Magnesium Iron TIBC Ferritin Direct Bilirubin AST Total Creatine Kinase Troponin T 0.036 H Total Protein Albumin Prealbumin LDL Cholesterol Direct HDL Cholesterol Vitamin B12 TSH PTH Intact Urine Creatinine Urine Total Protein Vancomycin Trough Digoxin Salicylates Acetaminophen Crossmatch 03/22/19 03/22/19 03/22/19 06:10 06:10 11:59 WBC RBC Hgb Hct MCV MCH MCHC RDW Plt Count Lymph % (Auto) [place] % (Auto) Eos % (Auto) Lymph # [place] # Eos # Seg Neutrophils % Seg Neuts % (Manual) Lymphocytes % (Manual) Monocytes % (Manual) Eosinophils % (Manual) Nucleated RBC % Seg Neutrophils # Seg Neutrophils # Man Lymphocytes # (Manual) Monocytes # (Manual) Eosinophils # (Manual) PT INR APTT Heparin Anti-Xa Level POC ABG pH POC ABG pCO2 POC ABG pO2 ABG Base Excess ABG Hemoglobin Sodium Potassium Chloride Carbon Dioxide BUN Creatinine Glucose POC Glucose Lactic Acid 4.80 H* 3.80 H* Calcium Phosphorus Magnesium Iron TIBC Ferritin Direct Bilirubin AST Total Creatine Kinase Troponin T Total Protein Albumin Prealbumin LDL Cholesterol Direct HDL Cholesterol Vitamin B12 TSH 7.810 H PTH Intact Urine Creatinine Urine Total Protein Vancomycin Trough Digoxin Salicylates Acetaminophen Crossmatch 03/22/19 03/22/19 03/22/19 13:45 13:45 13:45 WBC RBC Hgb 8.3 L Hct 24.5 L MCV MCH MCHC RDW Plt Count 56 L Lymph % (Auto) [place] % (Auto) Eos % (Auto) Lymph # [place] # Eos # Seg Neutrophils % Seg Neuts % (Manual) Lymphocytes % (Manual) Monocytes % (Manual) Eosinophils % (Manual) Nucleated RBC % Seg Neutrophils # Seg Neutrophils # Man Lymphocytes # (Manual) Monocytes # (Manual) Eosinophils # (Manual) PT 21.4 H INR 1.90 H APTT 43.2 H Heparin Anti-Xa Level POC ABG pH POC ABG pCO2 POC ABG pO2 ABG Base Excess ABG Hemoglobin Sodium Potassium Chloride Carbon Dioxide BUN Creatinine Glucose POC Glucose Lactic Acid 3.50 H* Calcium Phosphorus Magnesium Iron TIBC Ferritin Direct Bilirubin AST Total Creatine Kinase Troponin T Total Protein Albumin Prealbumin LDL Cholesterol Direct HDL Cholesterol Vitamin B12 TSH PTH Intact Urine Creatinine Urine Total Protein Vancomycin Trough Digoxin Salicylates Acetaminophen Crossmatch 03/22/19 03/23/19 03/23/19 22:20 01:06 04:50 WBC 12.1 H RBC 2.36 L Hgb 7.7 L Hct 22.9 L MCV MCH 33 H MCHC RDW Plt Count 37 L Lymph % (Auto) [place] % (Auto) Eos % (Auto) Lymph # [place] # Eos # Seg Neutrophils % Seg Neuts % (Manual) 83.0 H Lymphocytes % (Manual) 8.0 L Monocytes % (Manual) Eosinophils % (Manual) Nucleated RBC % Seg Neutrophils # Seg Neutrophils # Man 10.0 H Lymphocytes # (Manual) 1.0 L Monocytes # (Manual) Eosinophils # (Manual) PT INR APTT Heparin Anti-Xa Level POC ABG pH POC ABG pCO2 POC ABG pO2 ABG Base Excess ABG Hemoglobin Sodium Potassium Chloride Carbon Dioxide BUN Creatinine Glucose POC Glucose Lactic Acid 3.60 H* 2.70 H* Calcium Phosphorus Magnesium Iron TIBC Ferritin Direct Bilirubin AST Total Creatine Kinase Troponin T Total Protein Albumin Prealbumin LDL Cholesterol Direct HDL Cholesterol Vitamin B12 TSH PTH Intact Urine Creatinine Urine Total Protein Vancomycin Trough Digoxin Salicylates Acetaminophen Crossmatch 03/23/19 03/23/19 03/23/19 04:50 05:25 05:53 WBC RBC Hgb Hct MCV MCH MCHC RDW Plt Count Lymph % (Auto) [place] % (Auto) Eos % (Auto) Lymph # [place] # Eos # Seg Neutrophils % Seg Neuts % (Manual) Lymphocytes % (Manual) Monocytes % (Manual) Eosinophils % (Manual) Nucleated RBC % Seg Neutrophils # Seg Neutrophils # Man Lymphocytes # (Manual) Monocytes # (Manual) Eosinophils # (Manual) PT INR APTT Heparin Anti-Xa Level POC ABG pH POC ABG pCO2 33.3 L POC ABG pO2 ABG Base Excess ABG Hemoglobin Sodium Potassium 3.5 L Chloride 108.3 H Carbon Dioxide BUN Creatinine Glucose POC Glucose 68 L Lactic Acid Calcium 7.3 L Phosphorus Magnesium Iron TIBC Ferritin Direct Bilirubin AST Total Creatine Kinase Troponin T Total Protein Albumin Prealbumin LDL Cholesterol Direct HDL Cholesterol Vitamin B12 TSH PTH Intact Urine Creatinine Urine Total Protein Vancomycin Trough Digoxin Salicylates Acetaminophen Crossmatch 03/24/19 03/24/19 03/24/19 03:26 05:50 05:57 WBC RBC Hgb Hct MCV MCH MCHC RDW Plt Count Lymph % (Auto) [place] % (Auto) Eos % (Auto) Lymph # [place] # Eos # Seg Neutrophils % Seg Neuts % (Manual) Lymphocytes % (Manual) Monocytes % (Manual) Eosinophils % (Manual) Nucleated RBC % Seg Neutrophils # Seg Neutrophils # Man Lymphocytes # (Manual) Monocytes # (Manual) Eosinophils # (Manual) PT INR APTT Heparin Anti-Xa Level POC ABG pH POC ABG pCO2 POC ABG pO2 78 L ABG Base Excess ABG Hemoglobin Sodium Potassium 3.4 L Chloride 116.5 H Carbon Dioxide 21 L BUN Creatinine 0.5 L Glucose 105 H POC Glucose 127 H Lactic Acid Calcium 6.4 L Phosphorus Magnesium Iron TIBC Ferritin Direct Bilirubin AST Total Creatine Kinase Troponin T Total Protein Albumin Prealbumin LDL Cholesterol Direct HDL Cholesterol Vitamin B12 TSH PTH Intact Urine Creatinine Urine Total Protein Vancomycin Trough Digoxin Salicylates Acetaminophen Crossmatch 03/24/19 03/24/19 03/24/19 06:00 11:30 12:25 WBC 13.6 H RBC 2.08 L Hgb 6.9 L Hct 20.5 L MCV 99 H MCH 33 H MCHC RDW Plt Count 50 L Lymph % (Auto) 8.1 L [place] % (Auto) 10.0 H Eos % (Auto) Lymph # 1.1 L [place] # 1.4 H Eos # Seg Neutrophils % 80.7 H Seg Neuts % (Manual) Lymphocytes % (Manual) Monocytes % (Manual) Eosinophils % (Manual) Nucleated RBC % Seg Neutrophils # 11.0 H Seg Neutrophils # Man Lymphocytes # (Manual) Monocytes # (Manual) Eosinophils # (Manual) PT INR APTT Heparin Anti-Xa Level POC ABG pH POC ABG pCO2 POC ABG pO2 ABG Base Excess ABG Hemoglobin Sodium Potassium Chloride Carbon Dioxide BUN Creatinine Glucose POC Glucose 111 H Lactic Acid Calcium Phosphorus Magnesium Iron TIBC Ferritin Direct Bilirubin AST Total Creatine Kinase Troponin T Total Protein Albumin Prealbumin LDL Cholesterol Direct HDL Cholesterol Vitamin B12 TSH PTH Intact Urine Creatinine Urine Total Protein Vancomycin Trough Digoxin Salicylates Acetaminophen Crossmatch See Detail 03/24/19 03/25/19 03/25/19 14:25 05:20 10:00 WBC 13.4 H RBC 2.54 L Hgb 8.1 L Hct 24.3 L MCV MCH MCHC RDW 17.3 H Plt Count 44 L Lymph % (Auto) [place] % (Auto) Eos % (Auto) Lymph # [place] # Eos # Seg Neutrophils % Seg Neuts % (Manual) Lymphocytes % (Manual) Monocytes % (Manual) Eosinophils % (Manual) Nucleated RBC % Seg Neutrophils # Seg Neutrophils # Man Lymphocytes # (Manual) Monocytes # (Manual) Eosinophils # (Manual) PT INR APTT Heparin Anti-Xa Level POC ABG pH POC ABG pCO2 POC ABG pO2 ABG Base Excess ABG Hemoglobin Sodium Potassium Chloride Carbon Dioxide BUN Creatinine Glucose POC Glucose 111 H Lactic Acid Calcium Phosphorus Magnesium Iron 32 L TIBC 75 L Ferritin Direct Bilirubin AST Total Creatine Kinase Troponin T Total Protein Albumin Prealbumin LDL Cholesterol Direct HDL Cholesterol Vitamin B12 TSH PTH Intact Urine Creatinine Urine Total Protein Vancomycin Trough Digoxin Salicylates Acetaminophen Crossmatch 03/25/19 03/25/19 03/25/19 10:11 10:11 23:11 WBC RBC Hgb Hct MCV MCH MCHC RDW Plt Count Lymph % (Auto) [place] % (Auto) Eos % (Auto) Lymph # [place] # Eos # Seg Neutrophils % Seg Neuts % (Manual) Lymphocytes % (Manual) Monocytes % (Manual) Eosinophils % (Manual) Nucleated RBC % Seg Neutrophils # Seg Neutrophils # Man Lymphocytes # (Manual) Monocytes # (Manual) Eosinophils # (Manual) PT INR APTT Heparin Anti-Xa Level POC ABG pH POC ABG pCO2 POC ABG pO2 ABG Base Excess ABG Hemoglobin Sodium Potassium Chloride 112.0 H Carbon Dioxide BUN 20 H Creatinine 0.6 L Glucose POC Glucose 112 H Lactic Acid Calcium 7.2 L Phosphorus Magnesium Iron TIBC Ferritin Direct Bilirubin AST Total Creatine Kinase Troponin T Total Protein Albumin Prealbumin LDL Cholesterol Direct HDL Cholesterol Vitamin B12 > 2000 H TSH PTH Intact Urine Creatinine Urine Total Protein Vancomycin Trough Digoxin Salicylates Acetaminophen Crossmatch 07/28/19 07/28/19 07/28/19 05:00 05:00 05:16 WBC 14.4 H RBC 2.74 L Hgb 8.9 L Hct 25.7 L MCV MCH 33 H MCHC 35 H RDW 16.9 H Plt Count 60 L Lymph % (Auto) [place] % (Auto) Eos % (Auto) Lymph # [place] # Eos # Seg Neutrophils % Seg Neuts % (Manual) 83.0 H Lymphocytes % (Manual) 5.0 L Monocytes % (Manual) Eosinophils % (Manual) 5.0 H Nucleated RBC % 1.0 H Seg Neutrophils # Seg Neutrophils # Man 12.0 H Lymphocytes # (Manual) 0.7 L Monocytes # (Manual) 0.9 H Eosinophils # (Manual) 0.7 H PT INR APTT Heparin Anti-Xa Level POC ABG pH POC ABG pCO2 POC ABG pO2 ABG Base Excess ABG Hemoglobin Sodium Potassium 3.1 L Chloride 110.4 H Carbon Dioxide BUN 22 H Creatinine Glucose 101 H POC Glucose 114 H Lactic Acid Calcium 7.4 L Phosphorus Magnesium Iron TIBC Ferritin Direct Bilirubin AST Total Creatine Kinase Troponin T Total Protein Albumin Prealbumin LDL Cholesterol Direct HDL Cholesterol Vitamin B12 TSH PTH Intact Urine Creatinine Urine Total Protein Vancomycin Trough Digoxin Salicylates Acetaminophen Crossmatch 03/26/19 03/27/19 03/27/19 11:55 09:04 09:04 WBC RBC Hgb Hct MCV MCH MCHC RDW Plt Count Lymph % (Auto) [place] % (Auto) Eos % (Auto) Lymph # [place] # Eos # Seg Neutrophils % Seg Neuts % (Manual) Lymphocytes % (Manual) Monocytes % (Manual) Eosinophils % (Manual) Nucleated RBC % Seg Neutrophils # Seg Neutrophils # Man Lymphocytes # (Manual) Monocytes # (Manual) Eosinophils # (Manual) PT INR APTT Heparin Anti-Xa Level POC ABG pH POC ABG pCO2 POC ABG pO2 ABG Base Excess ABG Hemoglobin Sodium Potassium 3.2 L Chloride Carbon Dioxide BUN 22 H Creatinine Glucose POC Glucose 121 H Lactic Acid Calcium 7.7 L Phosphorus Magnesium Iron TIBC Ferritin Direct Bilirubin AST Total Creatine Kinase Troponin T Total Protein Albumin Prealbumin LDL Cholesterol Direct HDL Cholesterol Vitamin B12 TSH PTH Intact Urine Creatinine Urine Total Protein Vancomycin Trough 23.0 H Digoxin Salicylates Acetaminophen Crossmatch 03/27/19 03/27/19 03/27/19 09:04 13:31 14:04 WBC 14.8 H RBC 2.52 L Hgb 8.0 L 8.3 L Hct 24.0 L 25.3 L MCV MCH MCHC RDW 17.0 H Plt Count 89 L 91 L Lymph % (Auto) [place] % (Auto) 8.8 H Eos % (Auto) Lymph # [place] # 1.3 H Eos # Seg Neutrophils % 70.7 H Seg Neuts % (Manual) Lymphocytes % (Manual) Monocytes % (Manual) Eosinophils % (Manual) Nucleated RBC % Seg Neutrophils # 10.5 H Seg Neutrophils # Man Lymphocytes # (Manual) Monocytes # (Manual) Eosinophils # (Manual) PT INR APTT Heparin Anti-Xa Level POC ABG pH POC ABG pCO2 POC ABG pO2 ABG Base Excess ABG Hemoglobin Sodium Potassium Chloride Carbon Dioxide BUN Creatinine Glucose POC Glucose Lactic Acid Calcium Phosphorus Magnesium Iron TIBC Ferritin Direct Bilirubin 0.3 H AST Total Creatine Kinase Troponin T Total Protein 4.9 L Albumin 1.3 L Prealbumin LDL Cholesterol Direct HDL Cholesterol Vitamin B12 TSH PTH Intact Urine Creatinine Urine Total Protein Vancomycin Trough Digoxin Salicylates Acetaminophen Crossmatch 03/27/19 03/27/19 03/28/19 14:04 23:51 01:05 WBC 14.4 H RBC 2.44 L Hgb 8.0 L Hct 24.5 L MCV 100 H MCH 33 H MCHC RDW 18.5 H Plt Count 86 L Lymph % (Auto) [place] % (Auto) Eos % (Auto) Lymph # [place] # Eos # Seg Neutrophils % Seg Neuts % (Manual) 84.0 H Lymphocytes % (Manual) 10.0 L Monocytes % (Manual) Eosinophils % (Manual) Nucleated RBC % Seg Neutrophils # Seg Neutrophils # Man 12.1 H Lymphocytes # (Manual) Monocytes # (Manual) Eosinophils # (Manual) PT 21.4 H INR 1.90 H APTT 42.2 H Heparin Anti-Xa Level POC ABG pH POC ABG pCO2 POC ABG pO2 ABG Base Excess ABG Hemoglobin Sodium Potassium Chloride Carbon Dioxide BUN Creatinine Glucose POC Glucose 130 H Lactic Acid Calcium Phosphorus Magnesium Iron TIBC Ferritin Direct Bilirubin AST Total Creatine Kinase Troponin T Total Protein Albumin Prealbumin LDL Cholesterol Direct HDL Cholesterol Vitamin B12 TSH PTH Intact Urine Creatinine Urine Total Protein Vancomycin Trough Digoxin Salicylates Acetaminophen Crossmatch 03/28/19 03/28/19 03/28/19 02:51 04:45 07:31 WBC RBC Hgb Hct MCV MCH MCHC RDW Plt Count Lymph % (Auto) [place] % (Auto) Eos % (Auto) Lymph # [place] # Eos # Seg Neutrophils % Seg Neuts % (Manual) Lymphocytes % (Manual) Monocytes % (Manual) Eosinophils % (Manual) Nucleated RBC % Seg Neutrophils # Seg Neutrophils # Man Lymphocytes # (Manual) Monocytes # (Manual) Eosinophils # (Manual) PT INR APTT 75.0 H* Heparin Anti-Xa Level POC ABG pH POC ABG pCO2 POC ABG pO2 ABG Base Excess ABG Hemoglobin Sodium Potassium Chloride Carbon Dioxide BUN 22 H Creatinine Glucose POC Glucose Lactic Acid Calcium 7.8 L Phosphorus Magnesium Iron TIBC Ferritin 448.3 H Direct Bilirubin AST Total Creatine Kinase Troponin T Total Protein Albumin Prealbumin LDL Cholesterol Direct HDL Cholesterol Vitamin B12 TSH PTH Intact Urine Creatinine Urine Total Protein Vancomycin Trough Digoxin Salicylates Acetaminophen Crossmatch 03/28/19 03/29/19 03/29/19 14:30 04:40 04:40 WBC RBC 2.17 L Hgb 7.1 L Hct 20.8 L MCV MCH 33 H MCHC RDW 17.1 H Plt Count 122 L Lymph % (Auto) [place] % (Auto) Eos % (Auto) Lymph # [place] # Eos # Seg Neutrophils % Seg Neuts % (Manual) Lymphocytes % (Manual) Monocytes % (Manual) Eosinophils % (Manual) Nucleated RBC % Seg Neutrophils # Seg Neutrophils # Man Lymphocytes # (Manual) Monocytes # (Manual) Eosinophils # (Manual) PT INR APTT 70.3 H* Heparin Anti-Xa Level POC ABG pH POC ABG pCO2 POC ABG pO2 ABG Base Excess ABG Hemoglobin Sodium Potassium Chloride Carbon Dioxide 31 H BUN 22 H Creatinine 0.5 L Glucose POC Glucose Lactic Acid Calcium 8.0 L Phosphorus Magnesium Iron TIBC Ferritin Direct Bilirubin AST Total Creatine Kinase Troponin T Total Protein 5.0 L Albumin 1.4 L Prealbumin LDL Cholesterol Direct HDL Cholesterol Vitamin B12 TSH PTH Intact Urine Creatinine Urine Total Protein Vancomycin Trough Digoxin Salicylates Acetaminophen Crossmatch 03/29/19 03/29/19 03/29/19 04:40 04:40 11:50 WBC RBC Hgb Hct MCV MCH MCHC RDW Plt Count Lymph % (Auto) [place] % (Auto) Eos % (Auto) Lymph # [place] # Eos # Seg Neutrophils % Seg Neuts % (Manual) Lymphocytes % (Manual) Monocytes % (Manual) Eosinophils % (Manual) Nucleated RBC % Seg Neutrophils # Seg Neutrophils # Man Lymphocytes # (Manual) Monocytes # (Manual) Eosinophils # (Manual) PT INR APTT 71.8 H* Heparin Anti-Xa Level POC ABG pH POC ABG pCO2 POC ABG pO2 ABG Base Excess ABG Hemoglobin Sodium Potassium Chloride Carbon Dioxide BUN Creatinine Glucose POC Glucose 118 H Lactic Acid Calcium Phosphorus Magnesium Iron TIBC Ferritin Direct Bilirubin AST Total Creatine Kinase Troponin T Total Protein Albumin Prealbumin LDL Cholesterol Direct HDL Cholesterol Vitamin B12 TSH PTH Intact Urine Creatinine Urine Total Protein Vancomycin Trough Digoxin 3.5 H* Salicylates Acetaminophen Crossmatch 03/29/19 03/29/19 03/29/19 16:20 16:20 21:10 WBC RBC Hgb Hct MCV MCH MCHC RDW Plt Count Lymph % (Auto) [place] % (Auto) Eos % (Auto) Lymph # [place] # Eos # Seg Neutrophils % Seg Neuts % (Manual) Lymphocytes % (Manual) Monocytes % (Manual) Eosinophils % (Manual) Nucleated RBC % Seg Neutrophils # Seg Neutrophils # Man Lymphocytes # (Manual) Monocytes # (Manual) Eosinophils # (Manual) PT INR APTT 61.5 H* 112.6 H* Heparin Anti-Xa Level POC ABG pH POC ABG pCO2 POC ABG pO2 ABG Base Excess ABG Hemoglobin Sodium Potassium Chloride Carbon Dioxide BUN Creatinine Glucose POC Glucose Lactic Acid Calcium Phosphorus Magnesium Iron TIBC Ferritin Direct Bilirubin AST Total Creatine Kinase Troponin T Total Protein Albumin Prealbumin LDL Cholesterol Direct HDL Cholesterol Vitamin B12 TSH PTH Intact Urine Creatinine Urine Total Protein Vancomycin Trough Digoxin 2.6 H* Salicylates Acetaminophen Crossmatch 03/29/19 03/30/19 03/30/19 22:30 04:42 04:42 WBC RBC Hgb 6.4 L Hct 18.9 L* MCV MCH MCHC RDW Plt Count Lymph % (Auto) [place] % (Auto) Eos % (Auto) Lymph # [place] # Eos # Seg Neutrophils % Seg Neuts % (Manual) Lymphocytes % (Manual) Monocytes % (Manual) Eosinophils % (Manual) Nucleated RBC % Seg Neutrophils # Seg Neutrophils # Man Lymphocytes # (Manual) Monocytes # (Manual) Eosinophils # (Manual) PT INR APTT 103.8 H* Heparin Anti-Xa Level POC ABG pH POC ABG pCO2 POC ABG pO2 ABG Base Excess ABG Hemoglobin Sodium Potassium Chloride Carbon Dioxide BUN Creatinine Glucose POC Glucose Lactic Acid Calcium Phosphorus Magnesium Iron TIBC Ferritin Direct Bilirubin AST Total Creatine Kinase Troponin T Total Protein Albumin Prealbumin LDL Cholesterol Direct HDL Cholesterol Vitamin B12 TSH PTH Intact Urine Creatinine Urine Total Protein Vancomycin Trough Digoxin 2.6 H* Salicylates Acetaminophen Crossmatch 03/30/19 03/30/19 03/30/19 07:04 07:58 11:15 WBC RBC 2.66 L Hgb 8.5 L Hct 25.3 L D MCV MCH MCHC RDW 17.4 H Plt Count Lymph % (Auto) [place] % (Auto) Eos % (Auto) Lymph # [place] # Eos # Seg Neutrophils % Seg Neuts % (Manual) Lymphocytes % (Manual) Monocytes % (Manual) Eosinophils % (Manual) Nucleated RBC % Seg Neutrophils # Seg Neutrophils # Man Lymphocytes # (Manual) Monocytes # (Manual) Eosinophils # (Manual) PT INR APTT 50.5 H Heparin Anti-Xa Level POC ABG pH POC ABG pCO2 POC ABG pO2 ABG Base Excess ABG Hemoglobin Sodium Potassium Chloride Carbon Dioxide BUN Creatinine Glucose POC Glucose Lactic Acid Calcium Phosphorus Magnesium Iron TIBC Ferritin Direct Bilirubin AST Total Creatine Kinase Troponin T Total Protein Albumin Prealbumin LDL Cholesterol Direct HDL Cholesterol Vitamin B12 TSH PTH Intact Urine Creatinine Urine Total Protein Vancomycin Trough Digoxin Salicylates Acetaminophen Crossmatch See Detail 03/30/19 03/30/19 03/30/19 11:36 17:40 22:51 WBC RBC 2.48 L Hgb 7.9 L Hct 23.9 L MCV MCH MCHC RDW 17.7 H Plt Count Lymph % (Auto) [place] % (Auto) Eos % (Auto) Lymph # [place] # Eos # Seg Neutrophils % Seg Neuts % (Manual) Lymphocytes % (Manual) Monocytes % (Manual) Eosinophils % (Manual) Nucleated RBC % Seg Neutrophils # Seg Neutrophils # Man Lymphocytes # (Manual) Monocytes # (Manual) Eosinophils # (Manual) PT INR APTT Heparin Anti-Xa Level POC ABG pH POC ABG pCO2 POC ABG pO2 ABG Base Excess ABG Hemoglobin Sodium Potassium Chloride Carbon Dioxide BUN Creatinine Glucose POC Glucose 129 H 112 H Lactic Acid Calcium Phosphorus Magnesium Iron TIBC Ferritin Direct Bilirubin AST Total Creatine Kinase Troponin T Total Protein Albumin Prealbumin LDL Cholesterol Direct HDL Cholesterol Vitamin B12 TSH PTH Intact Urine Creatinine Urine Total Protein Vancomycin Trough Digoxin Salicylates Acetaminophen Crossmatch 03/30/19 03/31/19 03/31/19 23:47 05:00 11:35 WBC RBC Hgb 8.0 L Hct 23.7 L MCV MCH MCHC RDW Plt Count Lymph % (Auto) [place] % (Auto) Eos % (Auto) Lymph # [place] # Eos # Seg Neutrophils % Seg Neuts % (Manual) Lymphocytes % (Manual) Monocytes % (Manual) Eosinophils % (Manual) Nucleated RBC % Seg Neutrophils # Seg Neutrophils # Man Lymphocytes # (Manual) Monocytes # (Manual) Eosinophils # (Manual) PT INR APTT Heparin Anti-Xa Level POC ABG pH POC ABG pCO2 POC ABG pO2 ABG Base Excess ABG Hemoglobin Sodium Potassium Chloride Carbon Dioxide BUN Creatinine Glucose POC Glucose 112 H 106 H Lactic Acid Calcium Phosphorus Magnesium Iron TIBC Ferritin Direct Bilirubin AST Total Creatine Kinase Troponin T Total Protein Albumin Prealbumin LDL Cholesterol Direct HDL Cholesterol Vitamin B12 TSH PTH Intact Urine Creatinine Urine Total Protein Vancomycin Trough Digoxin Salicylates Acetaminophen Crossmatch 04/01/19 04/02/19 04/03/19 11:38 08:33 06:15 WBC RBC 2.11 L Hgb 7.8 L 6.8 L Hct 23.1 L 20.5 L MCV 98 H MCH MCHC RDW 17.6 H Plt Count Lymph % (Auto) [place] % (Auto) 12.1 H Eos % (Auto) 7.4 H Lymph # [place] # Eos # Seg Neutrophils % Seg Neuts % (Manual) Lymphocytes % (Manual) Monocytes % (Manual) Eosinophils % (Manual) Nucleated RBC % Seg Neutrophils # Seg Neutrophils # Man Lymphocytes # (Manual) Monocytes # (Manual) Eosinophils # (Manual) PT INR APTT Heparin Anti-Xa Level POC ABG pH POC ABG pCO2 POC ABG pO2 ABG Base Excess ABG Hemoglobin Sodium Potassium Chloride Carbon Dioxide BUN Creatinine Glucose POC Glucose 136 H Lactic Acid Calcium Phosphorus Magnesium Iron TIBC Ferritin Direct Bilirubin AST Total Creatine Kinase Troponin T Total Protein Albumin Prealbumin LDL Cholesterol Direct HDL Cholesterol Vitamin B12 TSH PTH Intact Urine Creatinine Urine Total Protein Vancomycin Trough Digoxin Salicylates Acetaminophen Crossmatch 04/03/19 04/04/19 04/04/19 08:22 05:20 05:20 WBC RBC 2.27 L Hgb 7.3 L 7.3 L Hct 21.9 L 22.0 L MCV MCH MCHC RDW 16.8 H Plt Count Lymph % (Auto) [place] % (Auto) 12.2 H Eos % (Auto) 6.6 H Lymph # [place] # 1.0 H Eos # 0.5 H Seg Neutrophils % Seg Neuts % (Manual) Lymphocytes % (Manual) Monocytes % (Manual) Eosinophils % (Manual) Nucleated RBC % Seg Neutrophils # Seg Neutrophils # Man Lymphocytes # (Manual) Monocytes # (Manual) Eosinophils # (Manual) PT INR APTT Heparin Anti-Xa Level POC ABG pH POC ABG pCO2 POC ABG pO2 ABG Base Excess ABG Hemoglobin Sodium Potassium Chloride Carbon Dioxide BUN Creatinine 0.4 L Glucose POC Glucose Lactic Acid Calcium 7.9 L Phosphorus 2.20 L Magnesium 1.40 L Iron TIBC Ferritin Direct Bilirubin AST Total Creatine Kinase Troponin T Total Protein Albumin Prealbumin LDL Cholesterol Direct HDL Cholesterol Vitamin B12 TSH PTH Intact Urine Creatinine Urine Total Protein Vancomycin Trough Digoxin Salicylates Acetaminophen Crossmatch 04/05/19 04/05/19 04/05/19 03:30 03:30 06:51 WBC RBC 2.09 L Hgb 6.7 L Hct 20.1 L MCV MCH MCHC RDW 16.6 H Plt Count Lymph % (Auto) [place] % (Auto) 12.6 H Eos % (Auto) 6.2 H Lymph # [place] # 1.0 H Eos # 0.5 H Seg Neutrophils % Seg Neuts % (Manual) Lymphocytes % (Manual) Monocytes % (Manual) Eosinophils % (Manual) Nucleated RBC % Seg Neutrophils # Seg Neutrophils # Man Lymphocytes # (Manual) Monocytes # (Manual) Eosinophils # (Manual) PT INR APTT Heparin Anti-Xa Level POC ABG pH POC ABG pCO2 POC ABG pO2 ABG Base Excess ABG Hemoglobin Sodium Potassium Chloride Carbon Dioxide BUN Creatinine 0.4 L Glucose POC Glucose Lactic Acid Calcium 7.6 L Phosphorus Magnesium Iron TIBC Ferritin Direct Bilirubin AST Total Creatine Kinase Troponin T Total Protein Albumin Prealbumin LDL Cholesterol Direct HDL Cholesterol Vitamin B12 TSH PTH Intact Urine Creatinine Urine Total Protein Vancomycin Trough Digoxin Salicylates Acetaminophen Crossmatch See Detail 04/05/19 04/05/19 04/06/19 13:07 23:50 09:36 WBC RBC 2.56 L Hgb 8.4 L Hct 23.5 L MCV MCH 33 H MCHC 36 H RDW 17.9 H Plt Count Lymph % (Auto) [place] % (Auto) Eos % (Auto) Lymph # [place] # Eos # Seg Neutrophils % Seg Neuts % (Manual) Lymphocytes % (Manual) Monocytes % (Manual) Eosinophils % (Manual) Nucleated RBC % Seg Neutrophils # Seg Neutrophils # Man Lymphocytes # (Manual) Monocytes # (Manual) Eosinophils # (Manual) PT INR APTT Heparin Anti-Xa Level POC ABG pH POC ABG pCO2 POC ABG pO2 ABG Base Excess ABG Hemoglobin Sodium Potassium Chloride Carbon Dioxide BUN Creatinine Glucose POC Glucose 106 H 109 H Lactic Acid Calcium Phosphorus Magnesium Iron TIBC Ferritin Direct Bilirubin AST Total Creatine Kinase Troponin T Total Protein Albumin Prealbumin LDL Cholesterol Direct HDL Cholesterol Vitamin B12 TSH PTH Intact Urine Creatinine Urine Total Protein Vancomycin Trough Digoxin Salicylates Acetaminophen Crossmatch 04/07/19 04/07/19 04/07/19 06:50 06:50 11:37 WBC RBC Hgb 8.6 L Hct 25.6 L MCV MCH MCHC RDW Plt Count Lymph % (Auto) [place] % (Auto) Eos % (Auto) Lymph # [place] # Eos # Seg Neutrophils % Seg Neuts % (Manual) Lymphocytes % (Manual) Monocytes % (Manual) Eosinophils % (Manual) Nucleated RBC % Seg Neutrophils # Seg Neutrophils # Man Lymphocytes # (Manual) Monocytes # (Manual) Eosinophils # (Manual) PT INR APTT Heparin Anti-Xa Level POC ABG pH POC ABG pCO2 POC ABG pO2 ABG Base Excess ABG Hemoglobin Sodium Potassium Chloride Carbon Dioxide BUN Creatinine 0.6 L Glucose POC Glucose 118 H Lactic Acid Calcium 8.1 L Phosphorus Magnesium Iron TIBC Ferritin Direct Bilirubin AST Total Creatine Kinase Troponin T Total Protein Albumin Prealbumin LDL Cholesterol Direct HDL Cholesterol Vitamin B12 TSH PTH Intact Urine Creatinine Urine Total Protein Vancomycin Trough Digoxin Salicylates Acetaminophen Crossmatch 04/07/19 04/08/19 04/09/19 18:29 05:46 09:15 WBC 11.3 H RBC 2.58 L Hgb 7.9 L Hct 24.4 L MCV MCH MCHC RDW 17.3 H Plt Count 455 H Lymph % (Auto) [place] % (Auto) Eos % (Auto) Lymph # [place] # Eos # Seg Neutrophils % Seg Neuts % (Manual) Lymphocytes % (Manual) Monocytes % (Manual) Eosinophils % (Manual) Nucleated RBC % Seg Neutrophils # Seg Neutrophils # Man Lymphocytes # (Manual) Monocytes # (Manual) Eosinophils # (Manual) PT INR APTT Heparin Anti-Xa Level POC ABG pH POC ABG pCO2 POC ABG pO2 ABG Base Excess ABG Hemoglobin Sodium Potassium Chloride Carbon Dioxide BUN Creatinine Glucose POC Glucose 108 H 113 H Lactic Acid Calcium Phosphorus Magnesium Iron TIBC Ferritin Direct Bilirubin AST Total Creatine Kinase Troponin T Total Protein Albumin Prealbumin LDL Cholesterol Direct HDL Cholesterol Vitamin B12 TSH PTH Intact Urine Creatinine Urine Total Protein Vancomycin Trough Digoxin Salicylates Acetaminophen Crossmatch 04/09/19 04/09/19 04/09/19 12:14 17:56 23:41 WBC RBC Hgb Hct MCV MCH MCHC RDW Plt Count Lymph % (Auto) [place] % (Auto) Eos % (Auto) Lymph # [place] # Eos # Seg Neutrophils % Seg Neuts % (Manual) Lymphocytes % (Manual) Monocytes % (Manual) Eosinophils % (Manual) Nucleated RBC % Seg Neutrophils # Seg Neutrophils # Man Lymphocytes # (Manual) Monocytes # (Manual) Eosinophils # (Manual) PT INR APTT Heparin Anti-Xa Level POC ABG pH POC ABG pCO2 POC ABG pO2 ABG Base Excess ABG Hemoglobin Sodium Potassium Chloride Carbon Dioxide BUN Creatinine Glucose POC Glucose 135 H 117 H 128 H Lactic Acid Calcium Phosphorus Magnesium Iron TIBC Ferritin Direct Bilirubin AST Total Creatine Kinase Troponin T Total Protein Albumin Prealbumin LDL Cholesterol Direct HDL Cholesterol Vitamin B12 TSH PTH Intact Urine Creatinine Urine Total Protein Vancomycin Trough Digoxin Salicylates Acetaminophen Crossmatch 04/10/19 04/10/19 04/10/19 05:10 05:10 05:29 WBC 12.5 H RBC 2.46 L Hgb 7.6 L Hct 23.0 L MCV MCH MCHC RDW 17.3 H Plt Count 446 H Lymph % (Auto) 12.8 L [place] % (Auto) 12.1 H Eos % (Auto) Lymph # [place] # 1.5 H Eos # Seg Neutrophils % 72.6 H Seg Neuts % (Manual) Lymphocytes % (Manual) Monocytes % (Manual) Eosinophils % (Manual) Nucleated RBC % Seg Neutrophils # 9.0 H Seg Neutrophils # Man Lymphocytes # (Manual) Monocytes # (Manual) Eosinophils # (Manual) PT INR APTT Heparin Anti-Xa Level POC ABG pH POC ABG pCO2 POC ABG pO2 ABG Base Excess ABG Hemoglobin Sodium 136 L Potassium Chloride Carbon Dioxide BUN Creatinine 0.6 L Glucose POC Glucose 125 H Lactic Acid Calcium 7.6 L Phosphorus Magnesium Iron TIBC Ferritin Direct Bilirubin AST Total Creatine Kinase Troponin T Total Protein Albumin Prealbumin LDL Cholesterol Direct HDL Cholesterol Vitamin B12 TSH PTH Intact Urine Creatinine Urine Total Protein Vancomycin Trough Digoxin Salicylates Acetaminophen Crossmatch 04/10/19 04/10/19 04/11/19 18:31 23:41 04:25 WBC 18.5 H RBC 2.61 L Hgb 8.0 L Hct 24.3 L MCV MCH MCHC RDW 17.2 H Plt Count 490 H Lymph % (Auto) 9.8 L [place] % (Auto) 9.5 H Eos % (Auto) Lymph # [place] # 1.8 H Eos # Seg Neutrophils % 79.0 H Seg Neuts % (Manual) Lymphocytes % (Manual) Monocytes % (Manual) Eosinophils % (Manual) Nucleated RBC % Seg Neutrophils # 14.6 H Seg Neutrophils # Man Lymphocytes # (Manual) Monocytes # (Manual) Eosinophils # (Manual) PT INR APTT Heparin Anti-Xa Level POC ABG pH POC ABG pCO2 POC ABG pO2 ABG Base Excess ABG Hemoglobin Sodium Potassium Chloride Carbon Dioxide BUN Creatinine Glucose POC Glucose 165 H 133 H Lactic Acid Calcium Phosphorus Magnesium Iron TIBC Ferritin Direct Bilirubin AST Total Creatine Kinase Troponin T Total Protein Albumin Prealbumin LDL Cholesterol Direct HDL Cholesterol Vitamin B12 TSH PTH Intact Urine Creatinine Urine Total Protein Vancomycin Trough Digoxin Salicylates Acetaminophen Crossmatch 04/11/19 04/11/19 04/11/19 04:25 04:25 05:38 WBC RBC Hgb Hct MCV MCH MCHC RDW Plt Count Lymph % (Auto) [place] % (Auto) Eos % (Auto) Lymph # [place] # Eos # Seg Neutrophils % Seg Neuts % (Manual) Lymphocytes % (Manual) Monocytes % (Manual) Eosinophils % (Manual) Nucleated RBC % Seg Neutrophils # Seg Neutrophils # Man Lymphocytes # (Manual) Monocytes # (Manual) Eosinophils # (Manual) PT 15.5 H INR 1.26 H APTT Heparin Anti-Xa Level POC ABG pH POC ABG pCO2 POC ABG pO2 ABG Base Excess ABG Hemoglobin Sodium 136 L Potassium Chloride Carbon Dioxide BUN Creatinine 0.6 L Glucose POC Glucose 107 H Lactic Acid Calcium 7.7 L Phosphorus Magnesium Iron TIBC Ferritin Direct Bilirubin AST Total Creatine Kinase Troponin T Total Protein Albumin Prealbumin LDL Cholesterol Direct HDL Cholesterol Vitamin B12 TSH PTH Intact Urine Creatinine Urine Total Protein Vancomycin Trough Digoxin Salicylates Acetaminophen Crossmatch 04/12/19 04/12/19 04/12/19 06:47 11:30 11:30 WBC RBC Hgb 7.9 L Hct 24.3 L MCV MCH MCHC RDW Plt Count 465 H Lymph % (Auto) [place] % (Auto) Eos % (Auto) Lymph # [place] # Eos # Seg Neutrophils % Seg Neuts % (Manual) Lymphocytes % (Manual) Monocytes % (Manual) Eosinophils % (Manual) Nucleated RBC % Seg Neutrophils # Seg Neutrophils # Man Lymphocytes # (Manual) Monocytes # (Manual) Eosinophils # (Manual) PT 16.6 H INR 1.38 H APTT Heparin Anti-Xa Level POC ABG pH POC ABG pCO2 POC ABG pO2 ABG Base Excess ABG Hemoglobin Sodium Potassium Chloride Carbon Dioxide BUN Creatinine Glucose POC Glucose 157 H Lactic Acid Calcium Phosphorus Magnesium Iron TIBC Ferritin Direct Bilirubin AST Total Creatine Kinase Troponin T Total Protein Albumin Prealbumin LDL Cholesterol Direct HDL Cholesterol Vitamin B12 TSH PTH Intact Urine Creatinine Urine Total Protein Vancomycin Trough Digoxin Salicylates Acetaminophen Crossmatch 04/12/19 04/12/19 04/12/19 12:03 12:18 14:57 WBC RBC Hgb Hct MCV MCH MCHC RDW Plt Count Lymph % (Auto) [place] % (Auto) Eos % (Auto) Lymph # [place] # Eos # Seg Neutrophils % Seg Neuts % (Manual) Lymphocytes % (Manual) Monocytes % (Manual) Eosinophils % (Manual) Nucleated RBC % Seg Neutrophils # Seg Neutrophils # Man Lymphocytes # (Manual) Monocytes # (Manual) Eosinophils # (Manual) PT INR APTT Heparin Anti-Xa Level POC ABG pH POC ABG pCO2 30.5 L POC ABG pO2 53 L 60 L ABG Base Excess ABG Hemoglobin Sodium Potassium Chloride Carbon Dioxide BUN Creatinine Glucose POC Glucose 118 H Lactic Acid Calcium Phosphorus Magnesium Iron TIBC Ferritin Direct Bilirubin AST Total Creatine Kinase Troponin T Total Protein Albumin Prealbumin LDL Cholesterol Direct HDL Cholesterol Vitamin B12 TSH PTH Intact Urine Creatinine Urine Total Protein Vancomycin Trough Digoxin Salicylates Acetaminophen Crossmatch 04/12/19 04/12/19 04/13/19 18:02 18:05 02:31 WBC 25.1 H RBC 2.31 L Hgb 7.1 L Hct 21.4 L MCV MCH MCHC RDW 17.1 H Plt Count Lymph % (Auto) [place] % (Auto) Eos % (Auto) Lymph # [place] # Eos # Seg Neutrophils % Seg Neuts % (Manual) 90.0 H Lymphocytes % (Manual) 5.0 L Monocytes % (Manual) Eosinophils % (Manual) Nucleated RBC % Seg Neutrophils # Seg Neutrophils # Man 22.6 H Lymphocytes # (Manual) Monocytes # (Manual) 1.0 H Eosinophils # (Manual) PT INR APTT Heparin Anti-Xa Level < 0.10 L POC ABG pH POC ABG pCO2 POC ABG pO2 ABG Base Excess ABG Hemoglobin Sodium Potassium Chloride Carbon Dioxide BUN Creatinine Glucose POC Glucose 115 H Lactic Acid Calcium Phosphorus Magnesium Iron TIBC Ferritin Direct Bilirubin AST Total Creatine Kinase Troponin T Total Protein Albumin Prealbumin LDL Cholesterol Direct HDL Cholesterol Vitamin B12 TSH PTH Intact Urine Creatinine Urine Total Protein Vancomycin Trough Digoxin Salicylates Acetaminophen Crossmatch 04/13/19 04/13/19 04/13/19 02:31 02:31 05:02 WBC RBC Hgb Hct MCV MCH MCHC RDW Plt Count Lymph % (Auto) [place] % (Auto) Eos % (Auto) Lymph # [place] # Eos # Seg Neutrophils % Seg Neuts % (Manual) Lymphocytes % (Manual) Monocytes % (Manual) Eosinophils % (Manual) Nucleated RBC % Seg Neutrophils # Seg Neutrophils # Man Lymphocytes # (Manual) Monocytes # (Manual) Eosinophils # (Manual) PT INR APTT Heparin Anti-Xa Level 0.24 L POC ABG pH POC ABG pCO2 POC ABG pO2 ABG Base Excess -2.3 L ABG Hemoglobin 7.8 L Sodium 134 L Potassium Chloride Carbon Dioxide BUN 18 H Creatinine Glucose POC Glucose Lactic Acid Calcium 7.6 L Phosphorus Magnesium Iron TIBC Ferritin Direct Bilirubin AST Total Creatine Kinase Troponin T Total Protein 6.1 L Albumin 1.6 L Prealbumin LDL Cholesterol Direct HDL Cholesterol Vitamin B12 TSH PTH Intact Urine Creatinine Urine Total Protein Vancomycin Trough Digoxin Salicylates Acetaminophen Crossmatch
[2019-04-14] MEDS: BACTRIM DS PO SCH ×3 (02:30→21:50)
[2019-04-14] MEDS: LOPRESSOR PO SCH ×3 (02:31→21:49)
[2019-04-14] MEDS: CORDARONE PO SCH ×3 (02:31→21:52)
[2019-04-14] MEDS: PEPCID PO SCH ×3 (02:32→21:49)
[2019-04-14] MEDS: SODIUM CHLORIDE FLUSH SYRINGE 10 ML IV SCH ×3 (02:33→22:06)
[2019-04-14] MEDS: HumaLOG SUB-Q SCH ×4 (02:33→19:32)
[2019-04-14] MEDS: DILAUDID IV PRN ×4 (02:53→22:17)
[2019-04-14] MEDS: DUONEB *Not for PRN Use IH SCH ×4 (03:46→20:12)
--- NOTE | 2019-04-14 07:01 | Hem/Onc Progress Note ---
Assessment and Plan h/o low plt - at admission DVT was on home hospice 1. h/o Thrombocytopenia. This may be secondary to medications. The platelets were even low at admission. The differential includes infection versus a marrow issue. At this time, platelets are adequate, we will follow the trend. Because of clinical suspicion, HIT test has been ordered. Argatroban ordered. Heparin has been stopped. plt have improved 2. h/o Pneumonia. 3. h/o Encephalopathy. 4. Respiratory failure 5. h/o Renal impairment. 6. Deep vein thrombosis. Her immobilization may have a role. Central line also may have a role. Acute Right common femoral DVT and right IJ vein thrombosis the patient was on Argatroban. The patient was on home hospice as per notes. # Atrial fibrillation, she was on medications. # History of anemia, deficiency investigations. Leukocytosis, likely reactive. B12 level more than 2000, serum iron 32. anemia - s/p IV iron trial 04/14/2019 anemia - off argatroban - HIT test negative h/o PRBC it appears that the pt is possibly bleeding - based on hb fall - hence anticoag has been held if hb improves - ? oral anticoag an option - eliquis vs xarelto trache done h/o IVC filter on vent h/o encephalopathy - Patient Problems (1) Thrombocytopenia Current Visit: Yes Status: Acute Subjective Date of service: 04/14/19 Principal diagnosis: anemia - dvt Interval history: on vent - trach Objective - Exam Narrative Exam: Pain - none General appearance intubated - trach+ Performance status - complete help needed Eyes - no icterus ENT no thrush LNs cervical not palpable Neck - no LNs/mass - trach+ Respiratory Normal Breath sounds - CTA anteriorly CVS S1 S2 + Extremities normal temperature - flaccid General GI Soft - distended Rectal deferred female - deferred Skin warm Musculoskeletal not able to evaluate Neurologically - on vent - Constitutional Vitals: Last Vital Signs Temp 101 F H 04/14/19 03:22 Pulse 120 H 04/14/19 06:00 Resp 41 H 04/14/19 06:00 BP 120/66 04/14/19 06:00 Pulse Ox 93 04/14/19 06:00 - Labs Lab Results: Laboratory Results - last 24 hr 04/13/19 04/13/19 04/14/19 11:27 18:23 04:22 POC ABG pH 7.444 POC ABG pO2 70 L POC ABG HCO3 19.0 POC ABG Total CO2 20 POC ABG O2 Sat 95 POC ABG Base Excess -5 FiO2 55 POC Glucose 78 129 H 04/14/19 05:41 POC ABG pH POC ABG pO2 POC ABG HCO3 POC ABG Total CO2 POC ABG O2 Sat POC ABG Base Excess FiO2 POC Glucose 90 Medications & Allergies - Medications Allergies/Adverse Reactions: Allergies No Known Allergies Allergy (Unverified 03/19/19 13:11) Home Medications: Home Medications Medication Instructions Recorded Confirmed Last Taken Type Aspirin EC [Halfprin EC] 81 mg PO DAILY 03/20/19 03/20/19 Unknown History Divalproex Sodium 375 mg PO Q8H PRN 03/20/19 03/20/19 Unknown History Metoprolol [Lopressor TAB] 50 mg PO BID 03/20/19 03/20/19 Unknown History Sennosides/Docusate Sodium [Senna 8.6 mg PO BID PRN 03/20/19 03/20/19 Unknown History Plus Tablet] levETIRAcetam [Keppra TAB] 500 mg PO BID 03/20/19 03/20/19 Unknown History Active Medications: Generic Name Dose Route Start Last Admin Trade Name Freq PRN Reason Stop Dose Admin Acetaminophen 650 mg 03/24/19 23:48 04/11/19 09:52 Tylenol FEEDTUBE 650 mg Q6H PRN Administration Pain, Mild (1-3) Albuterol 2.5 mg 03/19/19 23:58 Proventil IH Q3HRT PRN Shortness Of Breath Albuterol/Ipratropium 1 ampul 03/20/19 02:00 04/14/19 03:46 Duoneb *Not For Prn Use* IH Not Given Q6HRT YUSUF Amiodarone HCl 200 mg 03/22/19 22:00 04/14/19 02:31 Cordarone PO Not Given BID YUSUF Lipase/Protease/Amylase 1 each 04/07/19 15:[address] 10,500 Unit FEEDTUBE PRN PRN For Clogged Feeding Tube Aspirin 81 mg 03/21/19 10:00 04/13/19 11:11 Baby Aspirin PO 81 mg DAILY YUSUF Administration Budesonide 0.5 mg 03/19/19 23:45 04/13/19 20:20 Pulmicort IH 0.5 mg Q12HRT YUSUF Administration Dextrose 50 ml 03/19/19 23:58 03/21/19 16:29 D50w (25gm) Syringe IV 50 ml PRN PRN Administration Hypoglycemia Famotidine 20 mg 03/22/19 10:00 04/14/19 02:32 Pepcid PO Not Given BID YUSUF Fentanyl 50 mcg 03/19/19 12:45 04/12/19 19:30 Sublimaze IV 50 mcg Q10MIN PRN Administration ANALGESIA Hydromorphone HCl 0.5 mg 03/19/19 23:58 04/14/19 02:53 Dilaudid IV 0.5 mg Q3H PRN Administration Pain , Severe (7-10) Hydrophilic Ointment 1 applic 03/19/19 12:45 Vaseline Lip Therapy TP Q2HR PRN Dry Lips Fentanyl Citrate 2,000 mcg in 100 mls @ 2.835 mls/hr 03/19/19 14:00 03/21/19 11:33 Fentanyl Drip Premix IV 0 mcg/kg/hr TITR YUSUF 0 mls/hr Titration Protocol 1 MCG/KG/HR Norepinephrine 4 mg in 250 mls @ 7.5 mls/hr 03/25/19 11:00 03/30/19 23:45 Levophed Drip 4 Mg/Ns 250 Ml IV 0 mcg/min TITR YUSUF 0 mls/hr Titration Protocol 2 MCG/MIN Sodium Chloride 1,000 mls @ 50 mls/hr 04/11/19 13:00 Nacl 0.9% 1000 Ml IV DIRECT YUSUF Heparin Sodium/Sodium Chloride 25,000 unit in 500 mls @ 18 mls/hr 04/12/19 12:00 04/13/19 13:26 Heparin/ 0.45% Nacl-25,000 Unit/500 Ml IV 1,000 units/hr TITR YUSUF 20 mls/hr Administration Protocol 900 UNITS/HR Insulin Human Lispro 0 unit 03/20/19 00:00 04/14/19 02:33 Humalog SUB-Q Not Given Q6HR [facility] Protocol Metoclopramide HCl 5 mg 03/20/19 00:12 Reglan IV Q6H PRN Nausea And Vomiting Metoprolol Tartrate 2.5 mg 03/23/19 13:17 03/24/19 21:20 Lopressor IV 2.5 mg Q2HR PRN Administration HR >150 Metoprolol Tartrate 12.5 mg 04/11/19 22:00 04/14/19 02:31 Lopressor PO Not Given BID YUSUF Multi-Ingred Cream/Lotion/Oil/Oint 1 applic 03/19/19 12:45 Artificial Tears Ophth Oint OU Q4HR PRN Dry Eye(s) Ondansetron HCl 4 mg 03/19/19 23:58 Zofran IV Q8H PRN Nausea And Vomiting Promethazine HCl 25 mg 03/19/19 23:58 Phenergan VT Q6H PRN N/V IF NPO AND NO IV ACCESS Simple Syrup 15 ml 04/07/19 15:50 Simple Syrup FEEDTUBE PRN PRN Hypoglycemia Simple Syrup 30 ml 04/07/19 15:50 Simple Syrup FEEDTUBE PRN PRN Hypoglycemia Sodium Bicarbonate 325 mg 04/07/19 15:50 Sodium Bicarbonate FEEDTUBE PRN PRN For Clogged Feeding Tube Sodium Chloride 10 ml 03/20/19 10:00 04/14/19 02:33 Sodium Chloride Flush Syringe 10 Ml IV Not Given BID YUSUF Sodium Chloride 10 ml 03/19/19 23:58 04/07/19 10:45 Sodium Chloride Flush Syringe 10 Ml IV 10 ml PRN PRN Administration LINE FLUSH Trimethoprim/Sulfamethoxazole 1 each 04/07/19 14:00 04/14/19 02:30 Bactrim Ds PO 04/14/19 22:01 Not Given Q12HR YUSUF
[2019-04-14 08:35] LABS: Calcium 7.4 mg/dL (8.4-10.2)
[2019-04-14] MEDS: PULMICORT IH SCH ×2 (08:36→20:12)
[2019-04-14 08:57] LABS: Hemoglobin 6.6 gm/dl (10.1-14.3); Mean Corpuscular HGB Conc 34 % (30-34); Mean Corpuscular Volume 91 fl (79-97); Platelet Count 321 K/mm3 (140-440); Red Blood Count 2.13 M/mm3 (3.65-5.03); Red Cell Distribution Width 17.1 % (13.2-15.2)
[2019-04-14 09:00] LABS: Hematocrit 19.5 % (30.3-42.9)
[2019-04-14 09:41] LABS: Anisocytosis 1+; Basophils % (Manual) 0 % (0.0-1.8); Platelet Estimate Consistent w Auto; Poikilocytosis 1+; Total Cells Counted 100
[2019-04-14] MEDS ORDERED: NACL 0.9% 500 ML 500 ML IV ONE (10:00)
--- NOTE | 2019-04-14 11:30 | Progress Note ---
Assessment and Plan Cultures/ID related labs: 04/05 BCx - negative 04/04 Sputum - Stenotrophomonas maltophila. 03/27 tracheal aspirate - heavy neutrophils, usual resp maday Blood culture 03/19/2019 negative. Urine culture 03/19/2019 negative. 03/23/2019 tracheal aspirate culture: Usual resp maday 04/05/2019 blood culture no growth so far 04/08/2019 blood culture no growth so far Assessment: 73 y/o female with history of dementia, prior CVA, on home hospice admitted on 03/20/2019 brought by EMS due to altered mental status: 1) Sepsis with septic shock: etiology ? pneumonia ? vulvar abscess/cellulitis ?drug fever v/s DVT related. Repeat UA neg. WBC persistently elevated 2) Bilateral pneumonia: Her radiography is largely unchanged. Her sputum cultures have grown S. maltophila, which is both a common infection in intubated patients as well as a common colonizer of tubes. CXR vaughn patchy pulmonary opacities. On Bactrim. ?fluid overload. 3) Acute encephalopathy: CT head without contrast shows encephalomalacia in the entire right cerebral hemisphere, volume loss in the left cerebral hemisphere, no acute parenchymal lesion in the brain. 4) Acute respiratory failure: now s/p trach and PEG. on the vent. 5) HA: improved. 6) Persistent fevers - Had initially improved with cessation of antibiotics but now febrile again. 7) DVTs - DVT of RIJ at catheter site as well as R common femoral, and a superficial thrombus in R greater saphenous. IVC filter placed. Recommendations: last day of Bactrim today fevers and WBC probably from extensive DVTs. She has had extensive antibiotic courses without any response Extremely poor prognosis, discussed with at bedside today Isaias Quintanilla MD, FACP [facility] ([facility]) C: [phone] O: [phone] F: [phone] Subjective Date of service: 04/14/19 Principal diagnosis: anemia - dvt Interval history: Remains on the vent via trach. non verbal. continues to have fevers. Objective - Exam Narrative Exam: Physical Exam: Constitutional: awake, doesn't follow any commands, non communicative Head, Ears, Nose: Normocephalic, atraumatic. External ears, nose normal Eyes: Conjunctivae/corneas clear. No icterus. No ptosis. Neck: trach + Cardiovascular: S1, S2 normal. Respiratory: air entry clear bilaterally GI: Soft, PEG + bowel sounds normal. No peritoneal signs. Musculoskeletal: B/L pedal edema, foot drop and contractures Skin: No rash or abscess Hem/Lymphatic: No palpable cervical or supraclavicular nodes. No lymphangitis Psych: no agitation Neurological: awake, trach, on vent, non communicative - Constitutional Vitals: Vital Signs Temp Pulse Resp BP Pulse Ox 97.1 F L 120 H 47 H 154/78 92 04/14/19 08:00 04/14/19 09:00 04/14/19 09:00 04/14/19 09:00 04/14/19 09:00 Temperature -Last 24 Hours Temperature 97.1 F Temperature 101 F Temperature 101.7 F Temperature 99.0 F Temperature 100.8 F Temperature 98.8 F - Labs CBC & Chem 7: 04/14/19 08:40 04/14/19 08:15 Labs: Abnormal lab results 04/13/19 04/14/19 04/14/19 Range/Units 18:23 04:22 08:15 WBC (4.5-11.0) K/mm3 RBC (3.65-5.03) M/mm3 Hgb (10.1-14.3) gm/dl Hct (30.3-42.9) % RDW (13.2-15.2) % Seg Neuts % (Manual) (40.0-70.0) % Lymphocytes % (Manual) (13.4-35.0) % Seg Neutrophils # Man (1.8-7.7) K/mm3 Lymphocytes # (Manual) (1.2-5.4) K/mm3 Eosinophils # (Manual) (0.0-0.4) K/mm3 Heparin Anti-Xa Level (0.3-0.7) U.I./ml POC ABG pO2 70 L (80-105) Sodium 135 L (137-145) mmol/L BUN 24 H (7-17) mg/dL Creatinine 1.3 H (0.7-1.2) mg/dL POC Glucose 129 H (70-105) Calcium 7.4 L (8.4-10.2) mg/dL 04/14/19 04/14/19 Range/Units 08:40 08:40 WBC 23.9 H (4.5-11.0) K/mm3 RBC 2.13 L (3.65-5.03) M/mm3 Hgb 6.6 L (10.1-14.3) gm/dl Hct 19.5 L* (30.3-42.9) % RDW 17.1 H (13.2-15.2) % Seg Neuts % (Manual) 90.0 H (40.0-70.0) % Lymphocytes % (Manual) 4.0 L (13.4-35.0) % Seg Neutrophils # Man 21.5 H (1.8-7.7) K/mm3 Lymphocytes # (Manual) 1.0 L (1.2-5.4) K/mm3 Eosinophils # (Manual) 0.7 H (0.0-0.4) K/mm3 Heparin Anti-Xa Level 0.14 L (0.3-0.7) U.I./ml POC ABG pO2 (80-105) Sodium (137-145) mmol/L BUN (7-17) mg/dL Creatinine (0.7-1.2) mg/dL POC Glucose (70-105) Calcium (8.4-10.2) mg/dL
[2019-04-14] MEDS: BABY ASPIRIN PO SCH (11:46)
--- NOTE | 2019-04-14 13:06 | Progress Note ---
Assessment and Plan Imp: 1. Aspiration pneumonitis 2. Sepsis 3. Thrombocytopenia 2/2 above, better 4. Acute respiratory failure, hypoxia 5. HA/lactic acidosis, better 6. Hx of CVA 7. Acute DVT Rec: 1. Continues to spike temp and have elevated WBC despite multiple broad spectrum ABX and most recently a full course of Bactrim versus the Steno in her sputum; CXR with bilateral infiltrates -> could consider bronch with BAL but she is a poor candidate for such in my opinion, see below 2. S/p Trach/PEG; wean FiO2 and cont. PSV trials 3. TFs 4. Holding heparin; transfuse 1 unit of PRBCs 5. Try to obtain PIVs or midline, and remove her CVL 6. Resume Fentanyl drip if need be for periods of tachypnea/agitation 7. Patient has been hospice-appropriate at least the last 2 weeks, and is even more so now with further clinical deterioration; remains AND; await LTAC placement No family present CCT 31 minutes Subjective Date of service: 04/14/19 Principal diagnosis: anemia - dvt Interval history: No events. Awake, alert, moves R hand/squeezes on command, and tracks w/ eyes. Periods of tachypnea. On 55% FiO2. No active bleeding reported. Heparin held due to anemia. Active Medications Acetaminophen (Tylenol) 650 mg FEEDTUBE Q6H PRN PRN Reason: Pain, Mild (1-3) Last Admin: 04/11/19 09:52 Dose: 650 mg Documented by: Albuterol (Proventil) 2.5 mg IH Q3HRT PRN PRN Reason: Shortness Of Breath Albuterol/Ipratropium (Duoneb *Not For Prn Use*) 1 ampul IH Q6HRT [facility] Last Admin: 04/14/19 20:12 Dose: 1 ampul Documented by: Amiodarone HCl (Cordarone) 200 mg PO BID [facility] Last Admin: 04/14/19 21:52 Dose: 200 mg Documented by: Lipase/Protease/Amylase (Pancreaze Dr 10,500 Unit) 1 each FEEDTUBE PRN PRN PRN Reason: For Clogged Feeding Tube Lipase/Protease/Amylase (Pancreaze Dr 10,500 Unit) 1 each FEEDTUBE PRN PRN PRN Reason: For Clogged Feeding Tube Aspirin (Baby Aspirin) 81 mg PO DAILY [facility] Last Admin: 04/14/19 11:46 Dose: 81 mg Documented by: Budesonide (Pulmicort) 0.5 mg IH Q12HRT [facility] Last Admin: 04/14/19 20:12 Dose: 0.5 mg Documented by: Dextrose (D50w (25gm) Syringe) 50 ml IV PRN PRN PRN Reason: Hypoglycemia Last Admin: 03/21/19 16:29 Dose: 50 ml Documented by: Famotidine (Pepcid) 20 mg PO BID [facility] Last Admin: 04/14/19 21:49 Dose: 20 mg Documented by: Fentanyl (Sublimaze) 50 mcg IV Q10MIN PRN PRN Reason: ANALGESIA Last Admin: 04/14/19 22:16 Dose: 50 mcg Documented by: Hydromorphone HCl (Dilaudid) 0.5 mg IV Q3H PRN PRN Reason: Pain , Severe (7-10) Last Admin: 04/14/19 22:17 Dose: 0.5 mg Documented by: Hydrophilic Ointment (Vaseline Lip Therapy) 1 applic TP Q2HR PRN PRN Reason: Dry Lips Fentanyl Citrate (Fentanyl Drip Premix) 2,000 mcg in 100 mls @ 2.835 mls/hr IV TITR [facility]; Protocol Last Titration: 03/21/19 11:33 Dose: 0 mcg/kg/hr, 0 mls/hr Documented by: Norepinephrine (Levophed Drip 4 Mg/Ns 250 Ml) 4 mg in 250 mls @ 7.5 mls/hr IV TITR [facility]; Protocol Last Titration: 03/30/19 23:45 Dose: 0 mcg/min, 0 mls/hr Documented by: Heparin Sodium/Sodium Chloride (Heparin/ 0.45% Nacl-25,000 Unit/500 Ml) 25,000 unit in 500 mls @ 18 mls/hr IV TITR [facility]; Protocol Last Admin: 04/13/19 13:26 Dose: 1,000 units/hr, 20 mls/hr Documented by: Insulin Human Lispro (Humalog) 0 unit SUB-Q Q6HR [facility]; Protocol Last Admin: 04/14/19 19:32 Dose: Not Given Documented by: Metoclopramide HCl (Reglan) 5 mg IV Q6H PRN PRN Reason: Nausea And Vomiting Metoprolol Tartrate (Lopressor) 2.5 mg IV Q2HR PRN PRN Reason: HR >150 Last Admin: 03/24/19 21:20 Dose: 2.5 mg Documented by: Metoprolol Tartrate (Lopressor) 12.5 mg PO BID [facility] Last Admin: 04/14/19 21:49 Dose: 12.5 mg Documented by: Multi-Ingred Cream/Lotion/Oil/Oint (Artificial Tears Ophth Oint) 1 applic OU Q 4HR PRN PRN Reason: Dry Eye(s) Ondansetron HCl (Zofran) 4 mg IV Q8H PRN PRN Reason: Nausea And Vomiting Promethazine HCl (Phenergan) 25 mg ME Q6H PRN PRN Reason: N/V IF NPO AND NO IV ACCESS Simple Syrup (Simple Syrup) 15 ml FEEDTUBE PRN PRN PRN Reason: Hypoglycemia Simple Syrup (Simple Syrup) 30 ml FEEDTUBE PRN PRN PRN Reason: Hypoglycemia Simple Syrup (Simple Syrup) 15 ml FEEDTUBE PRN PRN PRN Reason: Hypoglycemia Simple Syrup (Simple Syrup) 30 ml FEEDTUBE PRN PRN PRN Reason: Hypoglycemia Sodium Bicarbonate (Sodium Bicarbonate) 325 mg FEEDTUBE PRN PRN PRN Reason: For Clogged Feeding Tube Sodium Bicarbonate (Sodium Bicarbonate) 325 mg FEEDTUBE PRN PRN PRN Reason: For Clogged Feeding Tube Sodium Chloride (Sodium Chloride Flush Syringe 10 Ml) 10 ml IV BID [facility] Last Admin: 04/14/19 22:06 Dose: 10 ml Documented by: Sodium Chloride (Sodium Chloride Flush Syringe 10 Ml) 10 ml IV PRN PRN PRN Reason: LINE FLUSH Last Admin: 04/07/19 10:45 Dose: 10 ml Documented by: Objective Vital Signs - 12hr 04/14/19 04/14/19 04/14/19 02:00 02:31 03:00 Temperature Pulse Rate 121 H 119 H Pulse Rate [ Anterior Bilateral Throughout] Pulse Rate [ None] Respiratory 31 H 31 H Rate Respiratory Rate [Anterior Bilateral Throughout] Blood Pressure 123/62 137/86 117/63 O2 Sat by Pulse 94 95 Oximetry O2 Sat by Pulse Oximetry [ Assessment] 04/14/19 04/14/19 04/14/19 03:22 04:00 04:23 Temperature 101 F H Pulse Rate 107 H 111 H Pulse Rate [ Anterior Bilateral Throughout] Pulse Rate [ None] Respiratory 24 Rate Respiratory Rate [Anterior Bilateral Throughout] Blood Pressure 103/51 104/56 O2 Sat by Pulse 95 97 Oximetry O2 Sat by Pulse Oximetry [ Assessment] 04/14/19 04/14/19 04/14/19 04:30 05:00 06:00 Temperature Pulse Rate 109 H 120 H Pulse Rate [ Anterior Bilateral Throughout] Pulse Rate [ None] Respiratory 41 H 41 H Rate Respiratory Rate [Anterior Bilateral Throughout] Blood Pressure 127/59 120/66 O2 Sat by Pulse 94 93 Oximetry O2 Sat by Pulse 98 Oximetry [ Assessment] 04/14/19 04/14/19 04/14/19 07:00 08:00 08:36 Temperature 97.1 F L Pulse Rate 109 H 110 H 108 H Pulse Rate [ 120 H Anterior Bilateral Throughout] Pulse Rate [ 116 H None] Respiratory 28 H 33 H Rate Respiratory 44 H Rate [Anterior Bilateral Throughout] Blood Pressure 114/54 115/56 121/70 O2 Sat by Pulse 98 97 98 Oximetry O2 Sat by Pulse Oximetry [ Assessment] 04/14/19 04/14/19 04/14/19 09:00 11:44 12:42 Temperature Pulse Rate 120 H 114 H 90 Pulse Rate [ Anterior Bilateral Throughout] Pulse Rate [ None] Respiratory 47 H Rate Respiratory Rate [Anterior Bilateral Throughout] Blood Pressure 154/78 124/78 115/54 O2 Sat by Pulse 92 99 Oximetry O2 Sat by Pulse 95 Oximetry [ Assessment] Constitutional: other (intubated, critically ill on ventilator, awake) Eyes: non-icteric ENT: other (intubated ) Neck: supple Effort: mildly labored Ascultation: Bilateral: other (coarse BS bilaterally) Cardiovascular: other (tachy AF, no mrg) Gastrointestinal: normoactive bowel sounds, soft, non-tender, non-distended Integumentary: normal Extremities: anasarca Neurologic: other (awake, alert, L sided hemiparesis, contractures upper extremities) Psychiatric: mood appropriate, affect normal CBC and BMP: 04/14/19 08:40 04/14/19 08:15 ABG, PT/INR, D-dimer: ABG POC ABG pH 7.444 (7.35-7.45) 04/14/19 04:22 ABG pH 7.446 pH Units (7.350-7.450) 04/13/19 05:02 ABG pCO2 31.7 mm Hg 04/13/19 05:02 POC ABG pO2 70 (80-105) L 04/14/19 04:22 ABG pO2 85.6 mm Hg (80.0-90.0) 04/13/19 05:02 POC ABG HCO3 19.0 (22-26 mml/L) 04/14/19 04:22 POC ABG Total CO2 20 (23-27mmol/L) 04/14/19 04:22 POC ABG O2 Sat 95 04/14/19 04:22 ABG O2 Saturation 97.2 % (95.0-99.0) 04/13/19 05:02 PT/INR, D-dimer PT 16.6 Sec. (12.2-14.9) H 04/12/19 11:30 INR 1.38 (0.87-1.13) H 04/12/19 11:30 Abnormal lab findings: Abnormal Labs 03/19/19 03/19/19 03/19/19 12:59 12:59 12:59 WBC RBC 3.44 L Hgb Hct MCV 101 H MCH 34 H MCHC RDW Plt Count 98 L Lymph % (Auto) Sebastian % (Auto) Eos % (Auto) Lymph # Sebastian # Eos # Seg Neutrophils % Seg Neuts % (Manual) 11.0 L Lymphocytes % (Manual) Monocytes % (Manual) 10.0 H Eosinophils % (Manual) Nucleated RBC % 1.0 H Seg Neutrophils # Seg Neutrophils # Man 0.6 L Lymphocytes # (Manual) Monocytes # (Manual) Eosinophils # (Manual) PT INR APTT Heparin Anti-Xa Level POC ABG pH POC ABG pCO2 POC ABG pO2 ABG Base Excess ABG Hemoglobin Sodium 149 H Potassium Chloride 109.4 H Carbon Dioxide BUN 51 H Creatinine 3.2 H Glucose 58 L POC Glucose Lactic Acid 7.60 H* Calcium 7.8 L Phosphorus Magnesium 1.60 L Iron TIBC Ferritin Direct Bilirubin AST 75 H Total Creatine Kinase 1499 H Troponin T 0.109 H* Total Protein 5.2 L Albumin 1.7 L Prealbumin LDL Cholesterol Direct 22 L HDL Cholesterol 31 L Vitamin B12 TSH PTH Intact Urine Creatinine Urine Total Protein Vancomycin Trough Digoxin Salicylates Acetaminophen Crossmatch 03/19/19 03/19/1919 12:59 12:59 14:48 WBC RBC Hgb Hct MCV MCH MCHC RDW Plt Count Lymph % (Auto) Sebastian % (Auto) Eos % (Auto) Lymph # Sebastian # Eos # Seg Neutrophils % Seg Neuts % (Manual) Lymphocytes % (Manual) Monocytes % (Manual) Eosinophils % (Manual) Nucleated RBC % Seg Neutrophils # Seg Neutrophils # Man Lymphocytes # (Manual) Monocytes # (Manual) Eosinophils # (Manual) PT INR APTT Heparin Anti-Xa Level POC ABG pH POC ABG pCO2 POC ABG pO2 ABG Base Excess ABG Hemoglobin Sodium Potassium Chloride Carbon Dioxide BUN Creatinine Glucose POC Glucose 44 L Lactic Acid Calcium Phosphorus Magnesium Iron TIBC Ferritin Direct Bilirubin AST Total Creatine Kinase Troponin T Total Protein Albumin Prealbumin LDL Cholesterol Direct HDL Cholesterol Vitamin B12 TSH PTH Intact Urine Creatinine Urine Total Protein Vancomycin Trough Digoxin Salicylates < 0.3 L Acetaminophen < 5.0 L Crossmatch 03/19/19 03/19/19 03/19/19 15:33 15:52 16:26 WBC RBC Hgb Hct MCV MCH MCHC RDW Plt Count Lymph % (Auto) Sebastian % (Auto) Eos % (Auto) Lymph # Sebastian # Eos # Seg Neutrophils % Seg Neuts % (Manual) Lymphocytes % (Manual) Monocytes % (Manual) Eosinophils % (Manual) Nucleated RBC % Seg Neutrophils # Seg Neutrophils # Man Lymphocytes # (Manual) Monocytes # (Manual) Eosinophils # (Manual) PT INR APTT Heparin Anti-Xa Level POC ABG pH POC ABG pCO2 POC ABG pO2 ABG Base Excess ABG Hemoglobin Sodium Potassium Chloride Carbon Dioxide BUN Creatinine Glucose POC Glucose 228 H 231 H Lactic Acid Calcium Phosphorus Magnesium Iron TIBC Ferritin Direct Bilirubin AST Total Creatine Kinase Troponin T Total Protein Albumin Prealbumin LDL Cholesterol Direct HDL Cholesterol Vitamin B12 TSH PTH Intact Urine Creatinine 31.8 H Urine Total Protein Vancomycin Trough Digoxin Salicylates Acetaminophen Crossmatch 03/19/19 03/19/19 03/19/19 16:38 17:14 18:43 WBC RBC Hgb Hct MCV MCH MCHC RDW Plt Count Lymph % (Auto) Sebastian % (Auto) Eos % (Auto) Lymph # Sebastian # Eos # Seg Neutrophils % Seg Neuts % (Manual) Lymphocytes % (Manual) Monocytes % (Manual) Eosinophils % (Manual) Nucleated RBC % Seg Neutrophils # Seg Neutrophils # Man Lymphocytes # (Manual) Monocytes # (Manual) Eosinophils # (Manual) PT INR APTT Heparin Anti-Xa Level POC ABG pH 7.196 L POC ABG pCO2 30.8 L POC ABG pO2 ABG Base Excess ABG Hemoglobin Sodium Potassium Chloride Carbon Dioxide BUN Creatinine Glucose POC Glucose 235 H Lactic Acid 8.10 H* Calcium Phosphorus Magnesium Iron TIBC Ferritin Direct Bilirubin AST Total Creatine Kinase Troponin T Total Protein Albumin Prealbumin LDL Cholesterol Direct HDL Cholesterol Vitamin B12 TSH PTH Intact Urine Creatinine Urine Total Protein Vancomycin Trough Digoxin Salicylates Acetaminophen Crossmatch 03/19/19 03/19/19 03/19/19 18:52 20:00 20:56 WBC RBC Hgb Hct MCV MCH MCHC RDW Plt Count Lymph % (Auto) Sebastian % (Auto) Eos % (Auto) Lymph # Sebastian # Eos # Seg Neutrophils % Seg Neuts % (Manual) Lymphocytes % (Manual) Monocytes % (Manual) Eosinophils % (Manual) Nucleated RBC % Seg Neutrophils # Seg Neutrophils # Man Lymphocytes # (Manual) Monocytes # (Manual) Eosinophils # (Manual) PT INR APTT Heparin Anti-Xa Level POC ABG pH POC ABG pCO2 POC ABG pO2 ABG Base Excess ABG Hemoglobin Sodium Potassium Chloride Carbon Dioxide BUN Creatinine Glucose POC Glucose 240 H 117 H Lactic Acid 5.90 H* Calcium Phosphorus Magnesium Iron TIBC Ferritin Direct Bilirubin AST Total Creatine Kinase Troponin T Total Protein Albumin Prealbumin LDL Cholesterol Direct HDL Cholesterol Vitamin B12 TSH PTH Intact Urine Creatinine Urine Total Protein Vancomycin Trough Digoxin Salicylates Acetaminophen Crossmatch 03/19/19 03/19/19 03/19/19 21:19 22:07 23:00 WBC RBC Hgb Hct MCV MCH MCHC RDW Plt Count Lymph % (Auto) Sebastian % (Auto) Eos % (Auto) Lymph # Sebastian # Eos # Seg Neutrophils % Seg Neuts % (Manual) Lymphocytes % (Manual) Monocytes % (Manual) Eosinophils % (Manual) Nucleated RBC % Seg Neutrophils # Seg Neutrophils # Man Lymphocytes # (Manual) Monocytes # (Manual) Eosinophils # (Manual) PT INR APTT Heparin Anti-Xa Level POC ABG pH POC ABG pCO2 POC ABG pO2 ABG Base Excess ABG Hemoglobin Sodium Potassium Chloride Carbon Dioxide BUN Creatinine Glucose POC Glucose < 40 L 136 H Lactic Acid 6.10 H* Calcium Phosphorus Magnesium Iron TIBC Ferritin Direct Bilirubin AST Total Creatine Kinase Troponin T Total Protein Albumin Prealbumin LDL Cholesterol Direct HDL Cholesterol Vitamin B12 TSH PTH Intact Urine Creatinine Urine Total Protein Vancomycin Trough Digoxin Salicylates Acetaminophen Crossmatch 03/20/19 03/20/19 03/20/19 00:05 01:38 02:23 WBC RBC Hgb Hct MCV MCH MCHC RDW Plt Count Lymph % (Auto) Sebastian % (Auto) Eos % (Auto) Lymph # Sebastian # Eos # Seg Neutrophils % Seg Neuts % (Manual) Lymphocytes % (Manual) Monocytes % (Manual) Eosinophils % (Manual) Nucleated RBC % Seg Neutrophils # Seg Neutrophils # Man Lymphocytes # (Manual) Monocytes # (Manual) Eosinophils # (Manual) PT INR APTT Heparin Anti-Xa Level POC ABG pH POC ABG pCO2 POC ABG pO2 ABG Base Excess ABG Hemoglobin Sodium Potassium Chloride Carbon Dioxide BUN Creatinine Glucose POC Glucose 68 L 153 H 127 H Lactic Acid Calcium Phosphorus Magnesium Iron TIBC Ferritin Direct Bilirubin AST Total Creatine Kinase Troponin T Total Protein Albumin Prealbumin LDL Cholesterol Direct HDL Cholesterol Vitamin B12 TSH PTH Intact Urine Creatinine Urine Total Protein Vancomycin Trough Digoxin Salicylates Acetaminophen Crossmatch 03/20/19 03/20/19 03/20/19 03:12 04:31 04:41 WBC RBC Hgb Hct MCV MCH MCHC RDW Plt Count Lymph % (Auto) Sebastian % (Auto) Eos % (Auto) Lymph # Sebastian # Eos # Seg Neutrophils % Seg Neuts % (Manual) Lymphocytes % (Manual) Monocytes % (Manual) Eosinophils % (Manual) Nucleated RBC % Seg Neutrophils # Seg Neutrophils # Man Lymphocytes # (Manual) Monocytes # (Manual) Eosinophils # (Manual) PT INR APTT Heparin Anti-Xa Level POC ABG pH POC ABG pCO2 POC ABG pO2 53 L 65 L ABG Base Excess ABG Hemoglobin Sodium Potassium Chloride Carbon Dioxide BUN Creatinine Glucose POC Glucose 109 H Lactic Acid Calcium Phosphorus Magnesium Iron TIBC Ferritin Direct Bilirubin AST Total Creatine Kinase Troponin T Total Protein Albumin Prealbumin LDL Cholesterol Direct HDL Cholesterol Vitamin B12 TSH PTH Intact Urine Creatinine Urine Total Protein Vancomycin Trough Digoxin Salicylates Acetaminophen Crossmatch 03/20/19 03/20/19 03/20/19 05:50 07:29 08:14 WBC RBC Hgb Hct MCV MCH MCHC RDW Plt Count Lymph % (Auto) Sebastian % (Auto) Eos % (Auto) Lymph # Sebastian # Eos # Seg Neutrophils % Seg Neuts % (Manual) Lymphocytes % (Manual) Monocytes % (Manual) Eosinophils % (Manual) Nucleated RBC % Seg Neutrophils # Seg Neutrophils # Man Lymphocytes # (Manual) Monocytes # (Manual) Eosinophils # (Manual) PT INR APTT Heparin Anti-Xa Level POC ABG pH POC ABG pCO2 POC ABG pO2 ABG Base Excess ABG Hemoglobin Sodium Potassium Chloride Carbon Dioxide BUN Creatinine Glucose 61 L POC Glucose 47 L 153 H Lactic Acid Calcium Phosphorus Magnesium 1.60 L Iron TIBC Ferritin Direct Bilirubin AST Total Creatine Kinase Troponin T Total Protein Albumin Prealbumin LDL Cholesterol Direct HDL Cholesterol Vitamin B12 TSH PTH Intact Urine Creatinine Urine Total Protein Vancomycin Trough Digoxin Salicylates Acetaminophen Crossmatch 03/20/19 03/20/19 03/20/19 08:23 08:23 10:59 WBC RBC Hgb Hct MCV MCH MCHC RDW Plt Count Lymph % (Auto) Sebastian % (Auto) Eos % (Auto) Lymph # Sebastian # Eos # Seg Neutrophils % Seg Neuts % (Manual) Lymphocytes % (Manual) Monocytes % (Manual) Eosinophils % (Manual) Nucleated RBC % Seg Neutrophils # Seg Neutrophils # Man Lymphocytes # (Manual) Monocytes # (Manual) Eosinophils # (Manual) PT INR APTT Heparin Anti-Xa Level POC ABG pH POC ABG pCO2 POC ABG pO2 ABG Base Excess ABG Hemoglobin Sodium Potassium Chloride Carbon Dioxide BUN Creatinine Glucose 101 H POC Glucose 233 H Lactic Acid 9.70 H* Calcium Phosphorus Magnesium Iron TIBC Ferritin Direct Bilirubin AST Total Creatine Kinase Troponin T Total Protein Albumin Prealbumin 0.052 L LDL Cholesterol Direct HDL Cholesterol Vitamin B12 TSH PTH Intact Urine Creatinine Urine Total Protein Vancomycin Trough Digoxin Salicylates Acetaminophen Crossmatch 03/20/19 03/20/19 03/20/19 12:23 16:10 16:40 WBC RBC Hgb Hct MCV MCH MCHC RDW Plt Count Lymph % (Auto) Sebastian % (Auto) Eos % (Auto) Lymph # Sebastian # Eos # Seg Neutrophils % Seg Neuts % (Manual) Lymphocytes % (Manual) Monocytes % (Manual) Eosinophils % (Manual) Nucleated RBC % Seg Neutrophils # Seg Neutrophils # Man Lymphocytes # (Manual) Monocytes # (Manual) Eosinophils # (Manual) PT INR APTT Heparin Anti-Xa Level POC ABG pH POC ABG pCO2 POC ABG pO2 ABG Base Excess ABG Hemoglobin Sodium Potassium Chloride Carbon Dioxide BUN Creatinine Glucose POC Glucose 135 H 171 H Lactic Acid Calcium Phosphorus Magnesium Iron TIBC Ferritin Direct Bilirubin AST Total Creatine Kinase Troponin T Total Protein Albumin Prealbumin LDL Cholesterol Direct HDL Cholesterol Vitamin B12 TSH PTH Intact Urine Creatinine 53.7 H Urine Total Protein 36 H Vancomycin Trough Digoxin Salicylates Acetaminophen Crossmatch 03/20/19 03/20/19 03/20/19 16:57 17:38 17:50 WBC RBC Hgb Hct MCV MCH MCHC RDW Plt Count Lymph % (Auto) Sebastian % (Auto) Eos % (Auto) Lymph # Sebastian # Eos # Seg Neutrophils % Seg Neuts % (Manual) Lymphocytes % (Manual) Monocytes % (Manual) Eosinophils % (Manual) Nucleated RBC % Seg Neutrophils # Seg Neutrophils # Man Lymphocytes # (Manual) Monocytes # (Manual) Eosinophils # (Manual) PT INR APTT Heparin Anti-Xa Level POC ABG pH POC ABG pCO2 POC ABG pO2 ABG Base Excess ABG Hemoglobin Sodium Potassium Chloride Carbon Dioxide BUN Creatinine Glucose POC Glucose 152 H 147 H Lactic Acid 9.90 H* Calcium Phosphorus Magnesium Iron TIBC Ferritin Direct Bilirubin AST Total Creatine Kinase Troponin T Total Protein Albumin Prealbumin LDL Cholesterol Direct HDL Cholesterol Vitamin B12 TSH PTH Intact Urine Creatinine Urine Total Protein Vancomycin Trough Digoxin Salicylates Acetaminophen Crossmatch 03/20/19 03/20/19 03/20/19 17:50 17:50 17:50 WBC RBC 2.92 L Hgb 10.0 L Hct 29.3 L MCV 100 H MCH 34 H MCHC RDW Plt Count 81 L Lymph % (Auto) Sebastian % (Auto) Eos % (Auto) Lymph # Sebastian # Eos # Seg Neutrophils % Seg Neuts % (Manual) Lymphocytes % (Manual) Monocytes % (Manual) Eosinophils % (Manual) Nucleated RBC % Seg Neutrophils # Seg Neutrophils # Man Lymphocytes # (Manual) Monocytes # (Manual) Eosinophils # (Manual) PT INR APTT Heparin Anti-Xa Level POC ABG pH POC ABG pCO2 POC ABG pO2 ABG Base Excess ABG Hemoglobin Sodium Potassium 2.8 L* D Chloride Carbon Dioxide BUN 30 H Creatinine 1.6 H Glucose 107 H POC Glucose Lactic Acid Calcium 6.9 L Phosphorus 2.00 L Magnesium Iron TIBC Ferritin Direct Bilirubin AST Total Creatine Kinase Troponin T Total Protein Albumin Prealbumin LDL Cholesterol Direct HDL Cholesterol Vitamin B12 TSH PTH Intact 171.6 H Urine Creatinine Urine Total Protein Vancomycin Trough Digoxin Salicylates Acetaminophen Crossmatch 03/20/19 03/21/19 03/21/19 21:12 00:30 04:12 WBC RBC Hgb Hct MCV MCH MCHC RDW Plt Count Lymph % (Auto) Sebastian % (Auto) Eos % (Auto) Lymph # Sebastian # Eos # Seg Neutrophils % Seg Neuts % (Manual) Lymphocytes % (Manual) Monocytes % (Manual) Eosinophils % (Manual) Nucleated RBC % Seg Neutrophils # Seg Neutrophils # Man Lymphocytes # (Manual) Monocytes # (Manual) Eosinophils # (Manual) PT INR APTT Heparin Anti-Xa Level POC ABG pH POC ABG pCO2 POC ABG pO2 ABG Base Excess ABG Hemoglobin Sodium Potassium 3.0 L Chloride Carbon Dioxide 21 L BUN Creatinine 1.4 H Glucose 103 H POC Glucose Lactic Acid 8.70 H* 9.40 H* Calcium 6.8 L Phosphorus Magnesium Iron TIBC Ferritin Direct Bilirubin AST Total Creatine Kinase Troponin T Total Protein Albumin Prealbumin LDL Cholesterol Direct HDL Cholesterol Vitamin B12 TSH PTH Intact Urine Creatinine Urine Total Protein Vancomycin Trough Digoxin Salicylates Acetaminophen Crossmatch 03/21/19 03/21/19 03/21/19 04:12 04:12 04:43 WBC RBC 2.84 L Hgb 9.5 L Hct 28.3 L MCV 100 H MCH 33 H MCHC RDW Plt Count 79 L Lymph % (Auto) Sebastian % (Auto) Eos % (Auto) Lymph # Sebastian # Eos # Seg Neutrophils % Seg Neuts % (Manual) Lymphocytes % (Manual) Monocytes % (Manual) Eosinophils % (Manual) Nucleated RBC % Seg Neutrophils # Seg Neutrophils # Man Lymphocytes # (Manual) Monocytes # (Manual) Eosinophils # (Manual) PT INR APTT Heparin Anti-Xa Level POC ABG pH 7.456 H POC ABG pCO2 POC ABG pO2 ABG Base Excess ABG Hemoglobin Sodium Potassium Chloride Carbon Dioxide BUN Creatinine Glucose POC Glucose Lactic Acid 9.50 H* Calcium Phosphorus Magnesium Iron TIBC Ferritin Direct Bilirubin AST Total Creatine Kinase Troponin T Total Protein Albumin Prealbumin LDL Cholesterol Direct HDL Cholesterol Vitamin B12 TSH PTH Intact Urine Creatinine Urine Total Protein Vancomycin Trough Digoxin Salicylates Acetaminophen Crossmatch 03/21/19 03/21/19 03/21/19 08:06 08:08 10:11 WBC RBC Hgb Hct MCV MCH MCHC RDW Plt Count Lymph % (Auto) Sebastian % (Auto) Eos % (Auto) Lymph # Sebastian # Eos # Seg Neutrophils % Seg Neuts % (Manual) Lymphocytes % (Manual) Monocytes % (Manual) Eosinophils % (Manual) Nucleated RBC % Seg Neutrophils # Seg Neutrophils # Man Lymphocytes # (Manual) Monocytes # (Manual) Eosinophils # (Manual) PT INR APTT Heparin Anti-Xa Level POC ABG pH POC ABG pCO2 POC ABG pO2 ABG Base Excess ABG Hemoglobin Sodium Potassium 3.5 L Chloride Carbon Dioxide BUN 22 H Creatinine 1.3 H Glucose POC Glucose 64 L Lactic Acid 8.00 H* Calcium 7.0 L Phosphorus Magnesium Iron TIBC Ferritin Direct Bilirubin AST Total Creatine Kinase Troponin T Total Protein Albumin Prealbumin LDL Cholesterol Direct HDL Cholesterol Vitamin B12 TSH PTH Intact Urine Creatinine Urine Total Protein Vancomycin Trough Digoxin Salicylates Acetaminophen Crossmatch 03/21/19 03/21/19 03/21/19 11:17 12:17 13:37 WBC RBC Hgb Hct MCV MCH MCHC RDW Plt Count Lymph % (Auto) Sebastian % (Auto) Eos % (Auto) Lymph # Sebastian # Eos # Seg Neutrophils % Seg Neuts % (Manual) Lymphocytes % (Manual) Monocytes % (Manual) Eosinophils % (Manual) Nucleated RBC % Seg Neutrophils # Seg Neutrophils # Man Lymphocytes # (Manual) Monocytes # (Manual) Eosinophils # (Manual) PT INR APTT Heparin Anti-Xa Level POC ABG pH POC ABG pCO2 POC ABG pO2 ABG Base Excess ABG Hemoglobin Sodium Potassium Chloride Carbon Dioxide BUN Creatinine Glucose POC Glucose 173 H 110 H Lactic Acid Calcium Phosphorus Magnesium Iron TIBC Ferritin Direct Bilirubin AST Total Creatine Kinase Troponin T 0.033 H D Total Protein Albumin Prealbumin LDL Cholesterol Direct HDL Cholesterol Vitamin B12 TSH PTH Intact Urine Creatinine Urine Total Protein Vancomycin Trough Digoxin Salicylates Acetaminophen Crossmatch 03/21/19 03/21/19 03/21/19 13:37 17:21 18:52 WBC RBC Hgb Hct MCV MCH MCHC RDW Plt Count Lymph % (Auto) Sebastian % (Auto) Eos % (Auto) Lymph # Sebastian # Eos # Seg Neutrophils % Seg Neuts % (Manual) Lymphocytes % (Manual) Monocytes % (Manual) Eosinophils % (Manual) Nucleated RBC % Seg Neutrophils # Seg Neutrophils # Man Lymphocytes # (Manual) Monocytes # (Manual) Eosinophils # (Manual) PT INR APTT Heparin Anti-Xa Level POC ABG pH POC ABG pCO2 POC ABG pO2 ABG Base Excess ABG Hemoglobin Sodium Potassium Chloride Carbon Dioxide BUN Creatinine Glucose POC Glucose 130 H 107 H Lactic Acid 6.80 H* Calcium Phosphorus Magnesium Iron TIBC Ferritin Direct Bilirubin AST Total Creatine Kinase Troponin T Total Protein Albumin Prealbumin LDL Cholesterol Direct HDL Cholesterol Vitamin B12 TSH PTH Intact Urine Creatinine Urine Total Protein Vancomycin Trough Digoxin Salicylates Acetaminophen Crossmatch 03/21/19 03/21/19 03/21/19 20:20 22:08 23:05 WBC RBC Hgb Hct MCV MCH MCHC RDW Plt Count Lymph % (Auto) Sebastian % (Auto) Eos % (Auto) Lymph # Sebastian # Eos # Seg Neutrophils % Seg Neuts % (Manual) Lymphocytes % (Manual) Monocytes % (Manual) Eosinophils % (Manual) Nucleated RBC % Seg Neutrophils # Seg Neutrophils # Man Lymphocytes # (Manual) Monocytes # (Manual) Eosinophils # (Manual) PT INR APTT Heparin Anti-Xa Level POC ABG pH POC ABG pCO2 POC ABG pO2 ABG Base Excess ABG Hemoglobin Sodium Potassium Chloride Carbon Dioxide BUN Creatinine Glucose POC Glucose 106 H 106 H Lactic Acid Calcium Phosphorus Magnesium Iron TIBC Ferritin Direct Bilirubin AST Total Creatine Kinase Troponin T 0.036 H Total Protein Albumin Prealbumin LDL Cholesterol Direct HDL Cholesterol Vitamin B12 TSH PTH Intact Urine Creatinine Urine Total Protein Vancomycin Trough Digoxin Salicylates Acetaminophen Crossmatch 03/21/19 03/21/19 03/22/19 23:05 23:05 00:14 WBC RBC Hgb Hct MCV MCH MCHC RDW Plt Count Lymph % (Auto) [place] % (Auto) Eos % (Auto) Lymph # Sebastian # Eos # Seg Neutrophils % Seg Neuts % (Manual) Lymphocytes % (Manual) Monocytes % (Manual) Eosinophils % (Manual) Nucleated RBC % Seg Neutrophils # Seg Neutrophils # Man Lymphocytes # (Manual) Monocytes # (Manual) Eosinophils # (Manual) PT INR APTT Heparin Anti-Xa Level POC ABG pH POC ABG pCO2 POC ABG pO2 ABG Base Excess ABG Hemoglobin Sodium Potassium Chloride Carbon Dioxide BUN Creatinine Glucose POC Glucose 122 H 109 H Lactic Acid 7.00 H* Calcium Phosphorus Magnesium Iron TIBC Ferritin Direct Bilirubin AST Total Creatine Kinase Troponin T Total Protein Albumin Prealbumin LDL Cholesterol Direct HDL Cholesterol Vitamin B12 TSH PTH Intact Urine Creatinine Urine Total Protein Vancomycin Trough Digoxin Salicylates Acetaminophen Crossmatch 03/22/19 03/22/19 03/22/19 03:10 04:02 05:11 WBC RBC Hgb Hct MCV MCH MCHC RDW Plt Count Lymph % (Auto) [place] % (Auto) Eos % (Auto) Lymph # Sebastian # Eos # Seg Neutrophils % Seg Neuts % (Manual) Lymphocytes % (Manual) Monocytes % (Manual) Eosinophils % (Manual) Nucleated RBC % Seg Neutrophils # Seg Neutrophils # Man Lymphocytes # (Manual) Monocytes # (Manual) Eosinophils # (Manual) PT INR APTT Heparin Anti-Xa Level POC ABG pH 7.487 H POC ABG pCO2 POC ABG pO2 67 L ABG Base Excess ABG Hemoglobin Sodium Potassium Chloride Carbon Dioxide BUN Creatinine Glucose POC Glucose 114 H 112 H Lactic Acid Calcium Phosphorus Magnesium Iron TIBC Ferritin Direct Bilirubin AST Total Creatine Kinase Troponin T Total Protein Albumin Prealbumin LDL Cholesterol Direct HDL Cholesterol Vitamin B12 TSH PTH Intact Urine Creatinine Urine Total Protein Vancomycin Trough Digoxin Salicylates Acetaminophen Crossmatch 03/22/19 03/22/19 03/22/19 06:06 06:10 06:10 WBC RBC Hgb Hct MCV MCH MCHC RDW Plt Count Lymph % (Auto) [place] % (Auto) Eos % (Auto) Lymph # Sebastian # Eos # Seg Neutrophils % Seg Neuts % (Manual) Lymphocytes % (Manual) Monocytes % (Manual) Eosinophils % (Manual) Nucleated RBC % Seg Neutrophils # Seg Neutrophils # Man Lymphocytes # (Manual) Monocytes # (Manual) Eosinophils # (Manual) PT INR APTT Heparin Anti-Xa Level POC ABG pH POC ABG pCO2 POC ABG pO2 ABG Base Excess ABG Hemoglobin Sodium Potassium 3.0 L Chloride Carbon Dioxide BUN Creatinine Glucose POC Glucose 115 H Lactic Acid Calcium 7.0 L Phosphorus Magnesium Iron TIBC Ferritin Direct Bilirubin AST Total Creatine Kinase Troponin T 0.036 H Total Protein Albumin Prealbumin LDL Cholesterol Direct HDL Cholesterol Vitamin B12 TSH PTH Intact Urine Creatinine Urine Total Protein Vancomycin Trough Digoxin Salicylates Acetaminophen Crossmatch 03/22/19 03/22/19 03/22/19 06:10 06:10 11:59 WBC RBC Hgb Hct MCV MCH MCHC RDW Plt Count Lymph % (Auto) [place] % (Auto) Eos % (Auto) Lymph # Sebastian # Eos # Seg Neutrophils % Seg Neuts % (Manual) Lymphocytes % (Manual) Monocytes % (Manual) Eosinophils % (Manual) Nucleated RBC % Seg Neutrophils # Seg Neutrophils # Man Lymphocytes # (Manual) Monocytes # (Manual) Eosinophils # (Manual) PT INR APTT Heparin Anti-Xa Level POC ABG pH POC ABG pCO2 POC ABG pO2 ABG Base Excess ABG Hemoglobin Sodium Potassium Chloride Carbon Dioxide BUN Creatinine Glucose POC Glucose Lactic Acid 4.80 H* 3.80 H* Calcium Phosphorus Magnesium Iron TIBC Ferritin Direct Bilirubin AST Total Creatine Kinase Troponin T Total Protein Albumin Prealbumin LDL Cholesterol Direct HDL Cholesterol Vitamin B12 TSH 7.810 H PTH Intact Urine Creatinine Urine Total Protein Vancomycin Trough Digoxin Salicylates Acetaminophen Crossmatch 03/22/19 03/22/19 03/22/19 13:45 13:45 13:45 WBC RBC Hgb 8.3 L Hct 24.5 L MCV MCH MCHC RDW Plt Count 56 L Lymph % (Auto) [place] % (Auto) Eos % (Auto) Lymph # Sebastian # Eos # Seg Neutrophils % Seg Neuts % (Manual) Lymphocytes % (Manual) Monocytes % (Manual) Eosinophils % (Manual) Nucleated RBC % Seg Neutrophils # Seg Neutrophils # Man Lymphocytes # (Manual) Monocytes # (Manual) Eosinophils # (Manual) PT 21.4 H INR 1.90 H APTT 43.2 H Heparin Anti-Xa Level POC ABG pH POC ABG pCO2 POC ABG pO2 ABG Base Excess ABG Hemoglobin Sodium Potassium Chloride Carbon Dioxide BUN Creatinine Glucose POC Glucose Lactic Acid 3.50 H* Calcium Phosphorus Magnesium Iron TIBC Ferritin Direct Bilirubin AST Total Creatine Kinase Troponin T Total Protein Albumin Prealbumin LDL Cholesterol Direct HDL Cholesterol Vitamin B12 TSH PTH Intact Urine Creatinine Urine Total Protein Vancomycin Trough Digoxin Salicylates Acetaminophen Crossmatch 03/22/19 03/23/19 03/23/19 22:20 01:06 04:50 WBC 12.1 H RBC 2.36 L Hgb 7.7 L Hct 22.9 L MCV MCH 33 H MCHC RDW Plt Count 37 L Lymph % (Auto) [place] % (Auto) Eos % (Auto) Lymph # Sebastian # Eos # Seg Neutrophils % Seg Neuts % (Manual) 83.0 H Lymphocytes % (Manual) 8.0 L Monocytes % (Manual) Eosinophils % (Manual) Nucleated RBC % Seg Neutrophils # Seg Neutrophils # Man 10.0 H Lymphocytes # (Manual) 1.0 L Monocytes # (Manual) Eosinophils # (Manual) PT INR APTT Heparin Anti-Xa Level POC ABG pH POC ABG pCO2 POC ABG pO2 ABG Base Excess ABG Hemoglobin Sodium Potassium Chloride Carbon Dioxide BUN Creatinine Glucose POC Glucose Lactic Acid 3.60 H* 2.70 H* Calcium Phosphorus Magnesium Iron TIBC Ferritin Direct Bilirubin AST Total Creatine Kinase Troponin T Total Protein Albumin Prealbumin LDL Cholesterol Direct HDL Cholesterol Vitamin B12 TSH PTH Intact Urine Creatinine Urine Total Protein Vancomycin Trough Digoxin Salicylates Acetaminophen Crossmatch 03/23/19 03/23/19 03/23/19 04:50 05:25 05:53 WBC RBC Hgb Hct MCV MCH MCHC RDW Plt Count Lymph % (Auto) [place] % (Auto) Eos % (Auto) Lymph # [place] # Eos # Seg Neutrophils % Seg Neuts % (Manual) Lymphocytes % (Manual) Monocytes % (Manual) Eosinophils % (Manual) Nucleated RBC % Seg Neutrophils # Seg Neutrophils # Man Lymphocytes # (Manual) Monocytes # (Manual) Eosinophils # (Manual) PT INR APTT Heparin Anti-Xa Level POC ABG pH POC ABG pCO2 33.3 L POC ABG pO2 ABG Base Excess ABG Hemoglobin Sodium Potassium 3.5 L Chloride 108.3 H Carbon Dioxide BUN Creatinine Glucose POC Glucose 68 L Lactic Acid Calcium 7.3 L Phosphorus Magnesium Iron TIBC Ferritin Direct Bilirubin AST Total Creatine Kinase Troponin T Total Protein Albumin Prealbumin LDL Cholesterol Direct HDL Cholesterol Vitamin B12 TSH PTH Intact Urine Creatinine Urine Total Protein Vancomycin Trough Digoxin Salicylates Acetaminophen Crossmatch 03/24/19 03/24/19 03/24/19 03:26 05:50 05:57 WBC RBC Hgb Hct MCV MCH MCHC RDW Plt Count Lymph % (Auto) [place] % (Auto) Eos % (Auto) Lymph # [place] # Eos # Seg Neutrophils % Seg Neuts % (Manual) Lymphocytes % (Manual) Monocytes % (Manual) Eosinophils % (Manual) Nucleated RBC % Seg Neutrophils # Seg Neutrophils # Man Lymphocytes # (Manual) Monocytes # (Manual) Eosinophils # (Manual) PT INR APTT Heparin Anti-Xa Level POC ABG pH POC ABG pCO2 POC ABG pO2 78 L ABG Base Excess ABG Hemoglobin Sodium Potassium 3.4 L Chloride 116.5 H Carbon Dioxide 21 L BUN Creatinine 0.5 L Glucose 105 H POC Glucose 127 H Lactic Acid Calcium 6.4 L Phosphorus Magnesium Iron TIBC Ferritin Direct Bilirubin AST Total Creatine Kinase Troponin T Total Protein Albumin Prealbumin LDL Cholesterol Direct HDL Cholesterol Vitamin B12 TSH PTH Intact Urine Creatinine Urine Total Protein Vancomycin Trough Digoxin Salicylates Acetaminophen Crossmatch 03/24/19 03/24/19 03/24/19 06:00 11:30 12:25 WBC 13.6 H RBC 2.08 L Hgb 6.9 L Hct 20.5 L MCV 99 H MCH 33 H MCHC RDW Plt Count 50 L Lymph % (Auto) 8.1 L Sebastian % (Auto) 10.0 H Eos % (Auto) Lymph # 1.1 L Sebastian # 1.4 H Eos # Seg Neutrophils % 80.7 H Seg Neuts % (Manual) Lymphocytes % (Manual) Monocytes % (Manual) Eosinophils % (Manual) Nucleated RBC % Seg Neutrophils # 11.0 H Seg Neutrophils # Man Lymphocytes # (Manual) Monocytes # (Manual) Eosinophils # (Manual) PT INR APTT Heparin Anti-Xa Level POC ABG pH POC ABG pCO2 POC ABG pO2 ABG Base Excess ABG Hemoglobin Sodium Potassium Chloride Carbon Dioxide BUN Creatinine Glucose POC Glucose 111 H Lactic Acid Calcium Phosphorus Magnesium Iron TIBC Ferritin Direct Bilirubin AST Total Creatine Kinase Troponin T Total Protein Albumin Prealbumin LDL Cholesterol Direct HDL Cholesterol Vitamin B12 TSH PTH Intact Urine Creatinine Urine Total Protein Vancomycin Trough Digoxin Salicylates Acetaminophen Crossmatch See Detail 03/24/19 03/25/19 03/25/19 14:25 05:20 10:00 WBC 13.4 H RBC 2.54 L Hgb 8.1 L Hct 24.3 L MCV MCH MCHC RDW 17.3 H Plt Count 44 L Lymph % (Auto) [place] % (Auto) Eos % (Auto) Lymph # [place] # Eos # Seg Neutrophils % Seg Neuts % (Manual) Lymphocytes % (Manual) Monocytes % (Manual) Eosinophils % (Manual) Nucleated RBC % Seg Neutrophils # Seg Neutrophils # Man Lymphocytes # (Manual) Monocytes # (Manual) Eosinophils # (Manual) PT INR APTT Heparin Anti-Xa Level POC ABG pH POC ABG pCO2 POC ABG pO2 ABG Base Excess ABG Hemoglobin Sodium Potassium Chloride Carbon Dioxide BUN Creatinine Glucose POC Glucose 111 H Lactic Acid Calcium Phosphorus Magnesium Iron 32 L TIBC 75 L Ferritin Direct Bilirubin AST Total Creatine Kinase Troponin T Total Protein Albumin Prealbumin LDL Cholesterol Direct HDL Cholesterol Vitamin B12 TSH PTH Intact Urine Creatinine Urine Total Protein Vancomycin Trough Digoxin Salicylates Acetaminophen Crossmatch 03/25/19 03/25/19 03/25/19 10:11 10:11 23:11 WBC RBC Hgb Hct MCV MCH MCHC RDW Plt Count Lymph % (Auto) [place] % (Auto) Eos % (Auto) Lymph # [place] # Eos # Seg Neutrophils % Seg Neuts % (Manual) Lymphocytes % (Manual) Monocytes % (Manual) Eosinophils % (Manual) Nucleated RBC % Seg Neutrophils # Seg Neutrophils # Man Lymphocytes # (Manual) Monocytes # (Manual) Eosinophils # (Manual) PT INR APTT Heparin Anti-Xa Level POC ABG pH POC ABG pCO2 POC ABG pO2 ABG Base Excess ABG Hemoglobin Sodium Potassium Chloride 112.0 H Carbon Dioxide BUN 20 H Creatinine 0.6 L Glucose POC Glucose 112 H Lactic Acid Calcium 7.2 L Phosphorus Magnesium Iron TIBC Ferritin Direct Bilirubin AST Total Creatine Kinase Troponin T Total Protein Albumin Prealbumin LDL Cholesterol Direct HDL Cholesterol Vitamin B12 > 2000 H TSH PTH Intact Urine Creatinine Urine Total Protein Vancomycin Trough Digoxin Salicylates Acetaminophen Crossmatch 03/26/19 03/26/19 03/26/19 05:00 05:00 05:16 WBC 14.4 H RBC 2.74 L Hgb 8.9 L Hct 25.7 L MCV MCH 33 H MCHC 35 H RDW 16.9 H Plt Count 60 L Lymph % (Auto) [place] % (Auto) Eos % (Auto) Lymph # [place] # Eos # Seg Neutrophils % Seg Neuts % (Manual) 83.0 H Lymphocytes % (Manual) 5.0 L Monocytes % (Manual) Eosinophils % (Manual) 5.0 H Nucleated RBC % 1.0 H Seg Neutrophils # Seg Neutrophils # Man 12.0 H Lymphocytes # (Manual) 0.7 L Monocytes # (Manual) 0.9 H Eosinophils # (Manual) 0.7 H PT INR APTT Heparin Anti-Xa Level POC ABG pH POC ABG pCO2 POC ABG pO2 ABG Base Excess ABG Hemoglobin Sodium Potassium 3.1 L Chloride 110.4 H Carbon Dioxide BUN 22 H Creatinine Glucose 101 H POC Glucose 114 H Lactic Acid Calcium 7.4 L Phosphorus Magnesium Iron TIBC Ferritin Direct Bilirubin AST Total Creatine Kinase Troponin T Total Protein Albumin Prealbumin LDL Cholesterol Direct HDL Cholesterol Vitamin B12 TSH PTH Intact Urine Creatinine Urine Total Protein Vancomycin Trough Digoxin Salicylates Acetaminophen Crossmatch 03/26/19 03/27/19 03/27/19 11:55 09:04 09:04 WBC RBC Hgb Hct MCV MCH MCHC RDW Plt Count Lymph % (Auto) [place] % (Auto) Eos % (Auto) Lymph # [place] # Eos # Seg Neutrophils % Seg Neuts % (Manual) Lymphocytes % (Manual) Monocytes % (Manual) Eosinophils % (Manual) Nucleated RBC % Seg Neutrophils # Seg Neutrophils # Man Lymphocytes # (Manual) Monocytes # (Manual) Eosinophils # (Manual) PT INR APTT Heparin Anti-Xa Level POC ABG pH POC ABG pCO2 POC ABG pO2 ABG Base Excess ABG Hemoglobin Sodium Potassium 3.2 L Chloride Carbon Dioxide BUN 22 H Creatinine Glucose POC Glucose 121 H Lactic Acid Calcium 7.7 L Phosphorus Magnesium Iron TIBC Ferritin Direct Bilirubin AST Total Creatine Kinase Troponin T Total Protein Albumin Prealbumin LDL Cholesterol Direct HDL Cholesterol Vitamin B12 TSH PTH Intact Urine Creatinine Urine Total Protein Vancomycin Trough 23.0 H Digoxin Salicylates Acetaminophen Crossmatch 03/27/19 03/27/19 03/27/19 09:04 13:31 14:04 WBC 14.8 H RBC 2.52 L Hgb 8.0 L 8.3 L Hct 24.0 L 25.3 L MCV MCH MCHC RDW 17.0 H Plt Count 89 L 91 L Lymph % (Auto) [place] % (Auto) 8.8 H Eos % (Auto) Lymph # Sebastian # 1.3 H Eos # Seg Neutrophils % 70.7 H Seg Neuts % (Manual) Lymphocytes % (Manual) Monocytes % (Manual) Eosinophils % (Manual) Nucleated RBC % Seg Neutrophils # 10.5 H Seg Neutrophils # Man Lymphocytes # (Manual) Monocytes # (Manual) Eosinophils # (Manual) PT INR APTT Heparin Anti-Xa Level POC ABG pH POC ABG pCO2 POC ABG pO2 ABG Base Excess ABG Hemoglobin Sodium Potassium Chloride Carbon Dioxide BUN Creatinine Glucose POC Glucose Lactic Acid Calcium Phosphorus Magnesium Iron TIBC Ferritin Direct Bilirubin 0.3 H AST Total Creatine Kinase Troponin T Total Protein 4.9 L Albumin 1.3 L Prealbumin LDL Cholesterol Direct HDL Cholesterol Vitamin B12 TSH PTH Intact Urine Creatinine Urine Total Protein Vancomycin Trough Digoxin Salicylates Acetaminophen Crossmatch 03/27/19 03/27/19 03/28/19 14:04 23:51 01:05 WBC 14.4 H RBC 2.44 L Hgb 8.0 L Hct 24.5 L MCV 100 H MCH 33 H MCHC RDW 18.5 H Plt Count 86 L Lymph % (Auto) [place] % (Auto) Eos % (Auto) Lymph # [place] # Eos # Seg Neutrophils % Seg Neuts % (Manual) 84.0 H Lymphocytes % (Manual) 10.0 L Monocytes % (Manual) Eosinophils % (Manual) Nucleated RBC % Seg Neutrophils # Seg Neutrophils # Man 12.1 H Lymphocytes # (Manual) Monocytes # (Manual) Eosinophils # (Manual) PT 21.4 H INR 1.90 H APTT 42.2 H Heparin Anti-Xa Level POC ABG pH POC ABG pCO2 POC ABG pO2 ABG Base Excess ABG Hemoglobin Sodium Potassium Chloride Carbon Dioxide BUN Creatinine Glucose POC Glucose 130 H Lactic Acid Calcium Phosphorus Magnesium Iron TIBC Ferritin Direct Bilirubin AST Total Creatine Kinase Troponin T Total Protein Albumin Prealbumin LDL Cholesterol Direct HDL Cholesterol Vitamin B12 TSH PTH Intact Urine Creatinine Urine Total Protein Vancomycin Trough Digoxin Salicylates Acetaminophen Crossmatch 03/28/19 03/28/19 03/28/19 02:51 04:45 07:31 WBC RBC Hgb Hct MCV MCH MCHC RDW Plt Count Lymph % (Auto) [place] % (Auto) Eos % (Auto) Lymph # [place] # Eos # Seg Neutrophils % Seg Neuts % (Manual) Lymphocytes % (Manual) Monocytes % (Manual) Eosinophils % (Manual) Nucleated RBC % Seg Neutrophils # Seg Neutrophils # Man Lymphocytes # (Manual) Monocytes # (Manual) Eosinophils # (Manual) PT INR APTT 75.0 H* Heparin Anti-Xa Level POC ABG pH POC ABG pCO2 POC ABG pO2 ABG Base Excess ABG Hemoglobin Sodium Potassium Chloride Carbon Dioxide BUN 22 H Creatinine Glucose POC Glucose Lactic Acid Calcium 7.8 L Phosphorus Magnesium Iron TIBC Ferritin 448.3 H Direct Bilirubin AST Total Creatine Kinase Troponin T Total Protein Albumin Prealbumin LDL Cholesterol Direct HDL Cholesterol Vitamin B12 TSH PTH Intact Urine Creatinine Urine Total Protein Vancomycin Trough Digoxin Salicylates Acetaminophen Crossmatch 03/28/19 03/29/19 03/29/19 14:30 04:40 04:40 WBC RBC 2.17 L Hgb 7.1 L Hct 20.8 L MCV MCH 33 H MCHC RDW 17.1 H Plt Count 122 L Lymph % (Auto) [place] % (Auto) Eos % (Auto) Lymph # [place] # Eos # Seg Neutrophils % Seg Neuts % (Manual) Lymphocytes % (Manual) Monocytes % (Manual) Eosinophils % (Manual) Nucleated RBC % Seg Neutrophils # Seg Neutrophils # Man Lymphocytes # (Manual) Monocytes # (Manual) Eosinophils # (Manual) PT INR APTT 70.3 H* Heparin Anti-Xa Level POC ABG pH POC ABG pCO2 POC ABG pO2 ABG Base Excess ABG Hemoglobin Sodium Potassium Chloride Carbon Dioxide 31 H BUN 22 H Creatinine 0.5 L Glucose POC Glucose Lactic Acid Calcium 8.0 L Phosphorus Magnesium Iron TIBC Ferritin Direct Bilirubin AST Total Creatine Kinase Troponin T Total Protein 5.0 L Albumin 1.4 L Prealbumin LDL Cholesterol Direct HDL Cholesterol Vitamin B12 TSH PTH Intact Urine Creatinine Urine Total Protein Vancomycin Trough Digoxin Salicylates Acetaminophen Crossmatch 03/29/19 03/29/19 03/29/19 04:40 04:40 11:50 WBC RBC Hgb Hct MCV MCH MCHC RDW Plt Count Lymph % (Auto) [place] % (Auto) Eos % (Auto) Lymph # [place] # Eos # Seg Neutrophils % Seg Neuts % (Manual) Lymphocytes % (Manual) Monocytes % (Manual) Eosinophils % (Manual) Nucleated RBC % Seg Neutrophils # Seg Neutrophils # Man Lymphocytes # (Manual) Monocytes # (Manual) Eosinophils # (Manual) PT INR APTT 71.8 H* Heparin Anti-Xa Level POC ABG pH POC ABG pCO2 POC ABG pO2 ABG Base Excess ABG Hemoglobin Sodium Potassium Chloride Carbon Dioxide BUN Creatinine Glucose POC Glucose 118 H Lactic Acid Calcium Phosphorus Magnesium Iron TIBC Ferritin Direct Bilirubin AST Total Creatine Kinase Troponin T Total Protein Albumin Prealbumin LDL Cholesterol Direct HDL Cholesterol Vitamin B12 TSH PTH Intact Urine Creatinine Urine Total Protein Vancomycin Trough Digoxin 3.5 H* Salicylates Acetaminophen Crossmatch 03/29/19 03/29/19 03/29/19 16:20 16:20 21:10 WBC RBC Hgb Hct MCV MCH MCHC RDW Plt Count Lymph % (Auto) [place] % (Auto) Eos % (Auto) Lymph # [place] # Eos # Seg Neutrophils % Seg Neuts % (Manual) Lymphocytes % (Manual) Monocytes % (Manual) Eosinophils % (Manual) Nucleated RBC % Seg Neutrophils # Seg Neutrophils # Man Lymphocytes # (Manual) Monocytes # (Manual) Eosinophils # (Manual) PT INR APTT 61.5 H* 112.6 H* Heparin Anti-Xa Level POC ABG pH POC ABG pCO2 POC ABG pO2 ABG Base Excess ABG Hemoglobin Sodium Potassium Chloride Carbon Dioxide BUN Creatinine Glucose POC Glucose Lactic Acid Calcium Phosphorus Magnesium Iron TIBC Ferritin Direct Bilirubin AST Total Creatine Kinase Troponin T Total Protein Albumin Prealbumin LDL Cholesterol Direct HDL Cholesterol Vitamin B12 TSH PTH Intact Urine Creatinine Urine Total Protein Vancomycin Trough Digoxin 2.6 H* Salicylates Acetaminophen Crossmatch 03/29/19 03/30/19 03/30/19 22:30 04:42 04:42 WBC RBC Hgb 6.4 L Hct 18.9 L* MCV MCH MCHC RDW Plt Count Lymph % (Auto) [place] % (Auto) Eos % (Auto) Lymph # [place] # Eos # Seg Neutrophils % Seg Neuts % (Manual) Lymphocytes % (Manual) Monocytes % (Manual) Eosinophils % (Manual) Nucleated RBC % Seg Neutrophils # Seg Neutrophils # Man Lymphocytes # (Manual) Monocytes # (Manual) Eosinophils # (Manual) PT INR APTT 103.8 H* Heparin Anti-Xa Level POC ABG pH POC ABG pCO2 POC ABG pO2 ABG Base Excess ABG Hemoglobin Sodium Potassium Chloride Carbon Dioxide BUN Creatinine Glucose POC Glucose Lactic Acid Calcium Phosphorus Magnesium Iron TIBC Ferritin Direct Bilirubin AST Total Creatine Kinase Troponin T Total Protein Albumin Prealbumin LDL Cholesterol Direct HDL Cholesterol Vitamin B12 TSH PTH Intact Urine Creatinine Urine Total Protein Vancomycin Trough Digoxin 2.6 H* Salicylates Acetaminophen Crossmatch 03/30/19 03/30/19 03/30/19 07:04 07:58 11:15 WBC RBC 2.66 L Hgb 8.5 L Hct 25.3 L D MCV MCH MCHC RDW 17.4 H Plt Count Lymph % (Auto) [place] % (Auto) Eos % (Auto) Lymph # [place] # Eos # Seg Neutrophils % Seg Neuts % (Manual) Lymphocytes % (Manual) Monocytes % (Manual) Eosinophils % (Manual) Nucleated RBC % Seg Neutrophils # Seg Neutrophils # Man Lymphocytes # (Manual) Monocytes # (Manual) Eosinophils # (Manual) PT INR APTT 50.5 H Heparin Anti-Xa Level POC ABG pH POC ABG pCO2 POC ABG pO2 ABG Base Excess ABG Hemoglobin Sodium Potassium Chloride Carbon Dioxide BUN Creatinine Glucose POC Glucose Lactic Acid Calcium Phosphorus Magnesium Iron TIBC Ferritin Direct Bilirubin AST Total Creatine Kinase Troponin T Total Protein Albumin Prealbumin LDL Cholesterol Direct HDL Cholesterol Vitamin B12 TSH PTH Intact Urine Creatinine Urine Total Protein Vancomycin Trough Digoxin Salicylates Acetaminophen Crossmatch See Detail 03/30/19 03/30/19 03/30/19 11:36 17:40 22:51 WBC RBC 2.48 L Hgb 7.9 L Hct 23.9 L MCV MCH MCHC RDW 17.7 H Plt Count Lymph % (Auto) [place] % (Auto) Eos % (Auto) Lymph # [place] # Eos # Seg Neutrophils % Seg Neuts % (Manual) Lymphocytes % (Manual) Monocytes % (Manual) Eosinophils % (Manual) Nucleated RBC % Seg Neutrophils # Seg Neutrophils # Man Lymphocytes # (Manual) Monocytes # (Manual) Eosinophils # (Manual) PT INR APTT Heparin Anti-Xa Level POC ABG pH POC ABG pCO2 POC ABG pO2 ABG Base Excess ABG Hemoglobin Sodium Potassium Chloride Carbon Dioxide BUN Creatinine Glucose POC Glucose 129 H 112 H Lactic Acid Calcium Phosphorus Magnesium Iron TIBC Ferritin Direct Bilirubin AST Total Creatine Kinase Troponin T Total Protein Albumin Prealbumin LDL Cholesterol Direct HDL Cholesterol Vitamin B12 TSH PTH Intact Urine Creatinine Urine Total Protein Vancomycin Trough Digoxin Salicylates Acetaminophen Crossmatch 03/30/19 03/31/19 03/31/19 23:47 05:00 11:35 WBC RBC Hgb 8.0 L Hct 23.7 L MCV MCH MCHC RDW Plt Count Lymph % (Auto) [place] % (Auto) Eos % (Auto) Lymph # Sebastian # Eos # Seg Neutrophils % Seg Neuts % (Manual) Lymphocytes % (Manual) Monocytes % (Manual) Eosinophils % (Manual) Nucleated RBC % Seg Neutrophils # Seg Neutrophils # Man Lymphocytes # (Manual) Monocytes # (Manual) Eosinophils # (Manual) PT INR APTT Heparin Anti-Xa Level POC ABG pH POC ABG pCO2 POC ABG pO2 ABG Base Excess ABG Hemoglobin Sodium Potassium Chloride Carbon Dioxide BUN Creatinine Glucose POC Glucose 112 H 106 H Lactic Acid Calcium Phosphorus Magnesium Iron TIBC Ferritin Direct Bilirubin AST Total Creatine Kinase Troponin T Total Protein Albumin Prealbumin LDL Cholesterol Direct HDL Cholesterol Vitamin B12 TSH PTH Intact Urine Creatinine Urine Total Protein Vancomycin Trough Digoxin Salicylates Acetaminophen Crossmatch 04/01/19 04/02/19 04/03/19 11:38 08:33 06:15 WBC RBC 2.11 L Hgb 7.8 L 6.8 L Hct 23.1 L 20.5 L MCV 98 H MCH MCHC RDW 17.6 H Plt Count Lymph % (Auto) [place] % (Auto) 12.1 H Eos % (Auto) 7.4 H Lymph # Sebastian # Eos # Seg Neutrophils % Seg Neuts % (Manual) Lymphocytes % (Manual) Monocytes % (Manual) Eosinophils % (Manual) Nucleated RBC % Seg Neutrophils # Seg Neutrophils # Man Lymphocytes # (Manual) Monocytes # (Manual) Eosinophils # (Manual) PT INR APTT Heparin Anti-Xa Level POC ABG pH POC ABG pCO2 POC ABG pO2 ABG Base Excess ABG Hemoglobin Sodium Potassium Chloride Carbon Dioxide BUN Creatinine Glucose POC Glucose 136 H Lactic Acid Calcium Phosphorus Magnesium Iron TIBC Ferritin Direct Bilirubin AST Total Creatine Kinase Troponin T Total Protein Albumin Prealbumin LDL Cholesterol Direct HDL Cholesterol Vitamin B12 TSH PTH Intact Urine Creatinine Urine Total Protein Vancomycin Trough Digoxin Salicylates Acetaminophen Crossmatch 04/03/19 04/04/19 04/04/19 08:22 05:20 05:20 WBC RBC 2.27 L Hgb 7.3 L 7.3 L Hct 21.9 L 22.0 L MCV MCH MCHC RDW 16.8 H Plt Count Lymph % (Auto) [place] % (Auto) 12.2 H Eos % (Auto) 6.6 H Lymph # Sebastian # 1.0 H Eos # 0.5 H Seg Neutrophils % Seg Neuts % (Manual) Lymphocytes % (Manual) Monocytes % (Manual) Eosinophils % (Manual) Nucleated RBC % Seg Neutrophils # Seg Neutrophils # Man Lymphocytes # (Manual) Monocytes # (Manual) Eosinophils # (Manual) PT INR APTT Heparin Anti-Xa Level POC ABG pH POC ABG pCO2 POC ABG pO2 ABG Base Excess ABG Hemoglobin Sodium Potassium Chloride Carbon Dioxide BUN Creatinine 0.4 L Glucose POC Glucose Lactic Acid Calcium 7.9 L Phosphorus 2.20 L Magnesium 1.40 L Iron TIBC Ferritin Direct Bilirubin AST Total Creatine Kinase Troponin T Total Protein Albumin Prealbumin LDL Cholesterol Direct HDL Cholesterol Vitamin B12 TSH PTH Intact Urine Creatinine Urine Total Protein Vancomycin Trough Digoxin Salicylates Acetaminophen Crossmatch 04/05/19 04/05/19 04/05/19 03:30 03:30 06:51 WBC RBC 2.09 L Hgb 6.7 L Hct 20.1 L MCV MCH MCHC RDW 16.6 H Plt Count Lymph % (Auto) Sebastian % (Auto) 12.6 H Eos % (Auto) 6.2 H Lymph # Sebastian # 1.0 H Eos # 0.5 H Seg Neutrophils % Seg Neuts % (Manual) Lymphocytes % (Manual) Monocytes % (Manual) Eosinophils % (Manual) Nucleated RBC % Seg Neutrophils # Seg Neutrophils # Man Lymphocytes # (Manual) Monocytes # (Manual) Eosinophils # (Manual) PT INR APTT Heparin Anti-Xa Level POC ABG pH POC ABG pCO2 POC ABG pO2 ABG Base Excess ABG Hemoglobin Sodium Potassium Chloride Carbon Dioxide BUN Creatinine 0.4 L Glucose POC Glucose Lactic Acid Calcium 7.6 L Phosphorus Magnesium Iron TIBC Ferritin Direct Bilirubin AST Total Creatine Kinase Troponin T Total Protein Albumin Prealbumin LDL Cholesterol Direct HDL Cholesterol Vitamin B12 TSH PTH Intact Urine Creatinine Urine Total Protein Vancomycin Trough Digoxin Salicylates Acetaminophen Crossmatch See Detail 04/05/19 04/05/19 04/06/19 13:07 23:50 09:36 WBC RBC 2.56 L Hgb 8.4 L Hct 23.5 L MCV MCH 33 H MCHC 36 H RDW 17.9 H Plt Count Lymph % (Auto) Sebastian % (Auto) Eos % (Auto) Lymph # Sebastian # Eos # Seg Neutrophils % Seg Neuts % (Manual) Lymphocytes % (Manual) Monocytes % (Manual) Eosinophils % (Manual) Nucleated RBC % Seg Neutrophils # Seg Neutrophils # Man Lymphocytes # (Manual) Monocytes # (Manual) Eosinophils # (Manual) PT INR APTT Heparin Anti-Xa Level POC ABG pH POC ABG pCO2 POC ABG pO2 ABG Base Excess ABG Hemoglobin Sodium Potassium Chloride Carbon Dioxide BUN Creatinine Glucose POC Glucose 106 H 109 H Lactic Acid Calcium Phosphorus Magnesium Iron TIBC Ferritin Direct Bilirubin AST Total Creatine Kinase Troponin T Total Protein Albumin Prealbumin LDL Cholesterol Direct HDL Cholesterol Vitamin B12 TSH PTH Intact Urine Creatinine Urine Total Protein Vancomycin Trough Digoxin Salicylates Acetaminophen Crossmatch 04/07/19 04/07/19 04/07/19 06:50 06:50 11:37 WBC RBC Hgb 8.6 L Hct 25.6 L MCV MCH MCHC RDW Plt Count Lymph % (Auto) Sebastian % (Auto) Eos % (Auto) Lymph # Sebastian # Eos # Seg Neutrophils % Seg Neuts % (Manual) Lymphocytes % (Manual) Monocytes % (Manual) Eosinophils % (Manual) Nucleated RBC % Seg Neutrophils # Seg Neutrophils # Man Lymphocytes # (Manual) Monocytes # (Manual) Eosinophils # (Manual) PT INR APTT Heparin Anti-Xa Level POC ABG pH POC ABG pCO2 POC ABG pO2 ABG Base Excess ABG Hemoglobin Sodium Potassium Chloride Carbon Dioxide BUN Creatinine 0.6 L Glucose POC Glucose 118 H Lactic Acid Calcium 8.1 L Phosphorus Magnesium Iron TIBC Ferritin Direct Bilirubin AST Total Creatine Kinase Troponin T Total Protein Albumin Prealbumin LDL Cholesterol Direct HDL Cholesterol Vitamin B12 TSH PTH Intact Urine Creatinine Urine Total Protein Vancomycin Trough Digoxin Salicylates Acetaminophen Crossmatch 04/07/19 04/08/19 04/09/19 18:29 05:46 09:15 WBC 11.3 H RBC 2.58 L Hgb 7.9 L Hct 24.4 L MCV MCH MCHC RDW 17.3 H Plt Count 455 H Lymph % (Auto) Sebastian % (Auto) Eos % (Auto) Lymph # Sebastian # Eos # Seg Neutrophils % Seg Neuts % (Manual) Lymphocytes % (Manual) Monocytes % (Manual) Eosinophils % (Manual) Nucleated RBC % Seg Neutrophils # Seg Neutrophils # Man Lymphocytes # (Manual) Monocytes # (Manual) Eosinophils # (Manual) PT INR APTT Heparin Anti-Xa Level POC ABG pH POC ABG pCO2 POC ABG pO2 ABG Base Excess ABG Hemoglobin Sodium Potassium Chloride Carbon Dioxide BUN Creatinine Glucose POC Glucose 108 H 113 H Lactic Acid Calcium Phosphorus Magnesium Iron TIBC Ferritin Direct Bilirubin AST Total Creatine Kinase Troponin T Total Protein Albumin Prealbumin LDL Cholesterol Direct HDL Cholesterol Vitamin B12 TSH PTH Intact Urine Creatinine Urine Total Protein Vancomycin Trough Digoxin Salicylates Acetaminophen Crossmatch 04/09/19 04/09/19 04/09/19 12:14 17:56 23:41 WBC RBC Hgb Hct MCV MCH MCHC RDW Plt Count Lymph % (Auto) Sebastian % (Auto) Eos % (Auto) Lymph # Sebastian # Eos # Seg Neutrophils % Seg Neuts % (Manual) Lymphocytes % (Manual) Monocytes % (Manual) Eosinophils % (Manual) Nucleated RBC % Seg Neutrophils # Seg Neutrophils # Man Lymphocytes # (Manual) Monocytes # (Manual) Eosinophils # (Manual) PT INR APTT Heparin Anti-Xa Level POC ABG pH POC ABG pCO2 POC ABG pO2 ABG Base Excess ABG Hemoglobin Sodium Potassium Chloride Carbon Dioxide BUN Creatinine Glucose POC Glucose 135 H 117 H 128 H Lactic Acid Calcium Phosphorus Magnesium Iron TIBC Ferritin Direct Bilirubin AST Total Creatine Kinase Troponin T Total Protein Albumin Prealbumin LDL Cholesterol Direct HDL Cholesterol Vitamin B12 TSH PTH Intact Urine Creatinine Urine Total Protein Vancomycin Trough Digoxin Salicylates Acetaminophen Crossmatch 04/10/19 04/10/19 04/10/19 05:10 05:10 05:29 WBC 12.5 H RBC 2.46 L Hgb 7.6 L Hct 23.0 L MCV MCH MCHC RDW 17.3 H Plt Count 446 H Lymph % (Auto) 12.8 L Sebastian % (Auto) 12.1 H Eos % (Auto) Lymph # Sebastian # 1.5 H Eos # Seg Neutrophils % 72.6 H Seg Neuts % (Manual) Lymphocytes % (Manual) Monocytes % (Manual) Eosinophils % (Manual) Nucleated RBC % Seg Neutrophils # 9.0 H Seg Neutrophils # Man Lymphocytes # (Manual) Monocytes # (Manual) Eosinophils # (Manual) PT INR APTT Heparin Anti-Xa Level POC ABG pH POC ABG pCO2 POC ABG pO2 ABG Base Excess ABG Hemoglobin Sodium 136 L Potassium Chloride Carbon Dioxide BUN Creatinine 0.6 L Glucose POC Glucose 125 H Lactic Acid Calcium 7.6 L Phosphorus Magnesium Iron TIBC Ferritin Direct Bilirubin AST Total Creatine Kinase Troponin T Total Protein Albumin Prealbumin LDL Cholesterol Direct HDL Cholesterol Vitamin B12 TSH PTH Intact Urine Creatinine Urine Total Protein Vancomycin Trough Digoxin Salicylates Acetaminophen Crossmatch 04/10/19 04/10/19 04/11/19 18:31 23:41 04:25 WBC 18.5 H RBC 2.61 L Hgb 8.0 L Hct 24.3 L MCV MCH MCHC RDW 17.2 H Plt Count 490 H Lymph % (Auto) 9.8 L Sebastian % (Auto) 9.5 H Eos % (Auto) Lymph # Sebastian # 1.8 H Eos # Seg Neutrophils % 79.0 H Seg Neuts % (Manual) Lymphocytes % (Manual) Monocytes % (Manual) Eosinophils % (Manual) Nucleated RBC % Seg Neutrophils # 14.6 H Seg Neutrophils # Man Lymphocytes # (Manual) Monocytes # (Manual) Eosinophils # (Manual) PT INR APTT Heparin Anti-Xa Level POC ABG pH POC ABG pCO2 POC ABG pO2 ABG Base Excess ABG Hemoglobin Sodium Potassium Chloride Carbon Dioxide BUN Creatinine Glucose POC Glucose 165 H 133 H Lactic Acid Calcium Phosphorus Magnesium Iron TIBC Ferritin Direct Bilirubin AST Total Creatine Kinase Troponin T Total Protein Albumin Prealbumin LDL Cholesterol Direct HDL Cholesterol Vitamin B12 TSH PTH Intact Urine Creatinine Urine Total Protein Vancomycin Trough Digoxin Salicylates Acetaminophen Crossmatch 04/11/19 04/11/19 04/11/19 04:25 04:25 05:38 WBC RBC Hgb Hct MCV MCH MCHC RDW Plt Count Lymph % (Auto) Sebastian % (Auto) Eos % (Auto) Lymph # Sebastian # Eos # Seg Neutrophils % Seg Neuts % (Manual) Lymphocytes % (Manual) Monocytes % (Manual) Eosinophils % (Manual) Nucleated RBC % Seg Neutrophils # Seg Neutrophils # Man Lymphocytes # (Manual) Monocytes # (Manual) Eosinophils # (Manual) PT 15.5 H INR 1.26 H APTT Heparin Anti-Xa Level POC ABG pH POC ABG pCO2 POC ABG pO2 ABG Base Excess ABG Hemoglobin Sodium 136 L Potassium Chloride Carbon Dioxide BUN Creatinine 0.6 L Glucose POC Glucose 107 H Lactic Acid Calcium 7.7 L Phosphorus Magnesium Iron TIBC Ferritin Direct Bilirubin AST Total Creatine Kinase Troponin T Total Protein Albumin Prealbumin LDL Cholesterol Direct HDL Cholesterol Vitamin B12 TSH PTH Intact Urine Creatinine Urine Total Protein Vancomycin Trough Digoxin Salicylates Acetaminophen Crossmatch 04/12/19 04/12/19 04/12/19 06:47 11:30 11:30 WBC RBC Hgb 7.9 L Hct 24.3 L MCV MCH MCHC RDW Plt Count 465 H Lymph % (Auto) Sebastian % (Auto) Eos % (Auto) Lymph # Sebastian # Eos # Seg Neutrophils % Seg Neuts % (Manual) Lymphocytes % (Manual) Monocytes % (Manual) Eosinophils % (Manual) Nucleated RBC % Seg Neutrophils # Seg Neutrophils # Man Lymphocytes # (Manual) Monocytes # (Manual) Eosinophils # (Manual) PT 16.6 H INR 1.38 H APTT Heparin Anti-Xa Level POC ABG pH POC ABG pCO2 POC ABG pO2 ABG Base Excess ABG Hemoglobin Sodium Potassium Chloride Carbon Dioxide BUN Creatinine Glucose POC Glucose 157 H Lactic Acid Calcium Phosphorus Magnesium Iron TIBC Ferritin Direct Bilirubin AST Total Creatine Kinase Troponin T Total Protein Albumin Prealbumin LDL Cholesterol Direct HDL Cholesterol Vitamin B12 TSH PTH Intact Urine Creatinine Urine Total Protein Vancomycin Trough Digoxin Salicylates Acetaminophen Crossmatch 04/12/19 04/12/19 04/12/19 12:03 12:18 14:57 WBC RBC Hgb Hct MCV MCH MCHC RDW Plt Count Lymph % (Auto) Sebastian % (Auto) Eos % (Auto) Lymph # Sebastian # Eos # Seg Neutrophils % Seg Neuts % (Manual) Lymphocytes % (Manual) Monocytes % (Manual) Eosinophils % (Manual) Nucleated RBC % Seg Neutrophils # Seg Neutrophils # Man Lymphocytes # (Manual) Monocytes # (Manual) Eosinophils # (Manual) PT INR APTT Heparin Anti-Xa Level POC ABG pH POC ABG pCO2 30.5 L POC ABG pO2 53 L 60 L ABG Base Excess ABG Hemoglobin Sodium Potassium Chloride Carbon Dioxide BUN Creatinine Glucose POC Glucose 118 H Lactic Acid Calcium Phosphorus Magnesium Iron TIBC Ferritin Direct Bilirubin AST Total Creatine Kinase Troponin T Total Protein Albumin Prealbumin LDL Cholesterol Direct HDL Cholesterol Vitamin B12 TSH PTH Intact Urine Creatinine Urine Total Protein Vancomycin Trough Digoxin Salicylates Acetaminophen Crossmatch 04/12/19 04/12/19 04/13/19 18:02 18:05 02:31 WBC 25.1 H RBC 2.31 L Hgb 7.1 L Hct 21.4 L MCV MCH MCHC RDW 17.1 H Plt Count Lymph % (Auto) Sebastian % (Auto) Eos % (Auto) Lymph # Sebastian # Eos # Seg Neutrophils % Seg Neuts % (Manual) 90.0 H Lymphocytes % (Manual) 5.0 L Monocytes % (Manual) Eosinophils % (Manual) Nucleated RBC % Seg Neutrophils # Seg Neutrophils # Man 22.6 H Lymphocytes # (Manual) Monocytes # (Manual) 1.0 H Eosinophils # (Manual) PT INR APTT Heparin Anti-Xa Level < 0.10 L POC ABG pH POC ABG pCO2 POC ABG pO2 ABG Base Excess ABG Hemoglobin Sodium Potassium Chloride Carbon Dioxide BUN Creatinine Glucose POC Glucose 115 H Lactic Acid Calcium Phosphorus Magnesium Iron TIBC Ferritin Direct Bilirubin AST Total Creatine Kinase Troponin T Total Protein Albumin Prealbumin LDL Cholesterol Direct HDL Cholesterol Vitamin B12 TSH PTH Intact Urine Creatinine Urine Total Protein Vancomycin Trough Digoxin Salicylates Acetaminophen Crossmatch 04/13/19 04/13/19 04/13/19 02:31 02:31 05:02 WBC RBC Hgb Hct MCV MCH MCHC RDW Plt Count Lymph % (Auto) Sebastian % (Auto) Eos % (Auto) Lymph # Sebastian # Eos # Seg Neutrophils % Seg Neuts % (Manual) Lymphocytes % (Manual) Monocytes % (Manual) Eosinophils % (Manual) Nucleated RBC % Seg Neutrophils # Seg Neutrophils # Man Lymphocytes # (Manual) Monocytes # (Manual) Eosinophils # (Manual) PT INR APTT Heparin Anti-Xa Level 0.24 L POC ABG pH POC ABG pCO2 POC ABG pO2 ABG Base Excess -2.3 L ABG Hemoglobin 7.8 L Sodium 134 L Potassium Chloride Carbon Dioxide BUN 18 H Creatinine Glucose POC Glucose Lactic Acid Calcium 7.6 L Phosphorus Magnesium Iron TIBC Ferritin Direct Bilirubin AST Total Creatine Kinase Troponin T Total Protein 6.1 L Albumin 1.6 L Prealbumin LDL Cholesterol Direct HDL Cholesterol Vitamin B12 TSH PTH Intact Urine Creatinine Urine Total Protein Vancomycin Trough Digoxin Salicylates Acetaminophen Crossmatch 04/13/19 04/14/19 04/14/19 18:23 04:22 08:15 WBC RBC Hgb Hct MCV MCH MCHC RDW Plt Count Lymph % (Auto) Sebastian % (Auto) Eos % (Auto) Lymph # Sebastian # Eos # Seg Neutrophils % Seg Neuts % (Manual) Lymphocytes % (Manual) Monocytes % (Manual) Eosinophils % (Manual) Nucleated RBC % Seg Neutrophils # Seg Neutrophils # Man Lymphocytes # (Manual) Monocytes # (Manual) Eosinophils # (Manual) PT INR APTT Heparin Anti-Xa Level POC ABG pH POC ABG pCO2 POC ABG pO2 70 L ABG Base Excess ABG Hemoglobin Sodium 135 L Potassium Chloride Carbon Dioxide BUN 24 H Creatinine 1.3 H Glucose POC Glucose 129 H Lactic Acid Calcium 7.4 L Phosphorus Magnesium Iron TIBC Ferritin Direct Bilirubin AST Total Creatine Kinase Troponin T Total Protein Albumin Prealbumin LDL Cholesterol Direct HDL Cholesterol Vitamin B12 TSH PTH Intact Urine Creatinine Urine Total Protein Vancomycin Trough Digoxin Salicylates Acetaminophen Crossmatch 04/14/19 04/14/19 04/14/19 08:40 08:40 10:38 WBC 23.9 H RBC 2.13 L Hgb 6.6 L Hct 19.5 L* MCV MCH MCHC RDW 17.1 H Plt Count Lymph % (Auto) Sebastian % (Auto) Eos % (Auto) Lymph # Sebastian # Eos # Seg Neutrophils % Seg Neuts % (Manual) 90.0 H Lymphocytes % (Manual) 4.0 L Monocytes % (Manual) Eosinophils % (Manual) Nucleated RBC % Seg Neutrophils # Seg Neutrophils # Man 21.5 H Lymphocytes # (Manual) 1.0 L Monocytes # (Manual) Eosinophils # (Manual) 0.7 H PT INR APTT Heparin Anti-Xa Level 0.14 L POC ABG pH POC ABG pCO2 POC ABG pO2 ABG Base Excess ABG Hemoglobin Sodium Potassium Chloride Carbon Dioxide BUN Creatinine Glucose POC Glucose Lactic Acid Calcium Phosphorus Magnesium Iron TIBC Ferritin Direct Bilirubin AST Total Creatine Kinase Troponin T Total Protein Albumin Prealbumin LDL Cholesterol Direct HDL Cholesterol Vitamin B12 TSH PTH Intact Urine Creatinine Urine Total Protein Vancomycin Trough Digoxin Salicylates Acetaminophen Crossmatch See Detail Chest x-ray: report reviewed, image reviewed (worsening bilateral infiltrates 04/12/19)
--- NOTE | 2019-04-14 13:18 | Progress Note ---
Assessment and Plan Acute metabolic encephalopathy, - cont supportive care, CT head negative - patient now appears at her baseline per the family Acute hypoxic respiratory with ETT placement: consulted CCM, difficult to wean off vent, scheduled nebs - S/P trach and PEG 04/11/19 on vent,Tolerating PEG feeds - Awaiting LTAC placement Severe Anemia: Drop in H/H - status post total 3 units of PRBC transfusion - Closely monitor and transfuse as needed Digoxin toxicity; supratherapeutic level, off digoxin Acute Right common femoral DVT and right IJ vein thrombosis - argatroban drip dced due to severe anemia[requiring transfusion] - planned for IVC filter by IR, but already have one in place - Family requested aggressive management, heparin drip is restarted 04/13 but h/h dropped, will hold again - no AC for now, monitor clinically Sepsis due to aspiration pneumonia; - source pneumonia but having persistent fever. UA negative. Blood culture 03/19 no growth. Urine culture 03/19/2019 negative. - ID following, Has completed full course for pneumonia and abx stopped on 04/04 for aspiration PNA - monitored fever curve - started on abx again by ID on 04/07 for persistent fever with bactrim for 7 days- last day today Septic shock: off pressor, weaned off, BP now stable Paroxysmal Atrial fib, Now NSR - on amioderone, metoprolol HA (acute kidney injury), atn and vasomotor nephrology, poa: IV fluids for now, Nephrology consulted - renal function improved Anemia, due to CD vs other cause - ordered stool for occult blood, iron study - transfused one unit PRBC RUL Aspiration pneumonia: treated with abx Hypernatremia: improved with Iv fluid Hypomagnesemia: replete and follow as needed Elevated troponin level/ NSTEMI II; consulted Cardiology, conservative mx Severe malnutrition; nutrition consult, PEG feeds, supportive care DVT prophylaxis DNR code status CCT 34 minutes Disposition ;Awaiting LTAC placement Brief History Patient is a 73 yo woman without a clear past medical history due to patient presentation of being Altered requiring intubation upon admission. Upon arrival to the emergency room, the patient is obtunded, breathing without difficulty, desaturating, without a gag reflex. Therefore, patient placed on nasal cannula at 15 L/m, and then intubated without difficulty. Patient started empirically on the sepsis pathway, with broad-spectrum antibiotics, aggressive IV fluids, an d post intubation sedation package. She is difficult to wean off from vent, s/p bronch. venous doppler showed right internal jugular vein thrombus associated with right internal jugular vein triple lumen catheter and right common femoral vein DVT. Patient was on anticoagulation however had significant anemia requiring blood transfusion as argatroban discontinued. Patient is unable to wean with poor prognosis, family requested DO NOT RESUSCITATE status And initially decided hospice, however they changed their mind and and patient underwent trach and PEG on 04/11/19 and is awaiting LTAC placement * pCXR FINDINGS: SUPPORT DEVICES: Endotracheal tube is in place in good position above the liam. HEART / MEDIASTINUM: No significant abnormality. LUNGS / PLEURA: There is moderate bibasilar lung consolidation and slight right upper lobe consolidation as well. No edema or effusions. No pneumothorax. ADDITIONAL FINDINGS: No significant additional findings. IMPRESSION: 1. Endotracheal tube in good position. * CT head without contrast IMPRESSION: Encephalomalacia in the entire right cerebral hemisphere Volume loss in the left cerebral hemisphere, n0 acute parenchymal lesion in the brain. Hospitalist Physical Gen: critcally ill, thin frail, on tyrach and PEG HEENT: EOMI, PERRL, OP Clear Neck: supple, no adenopathy, no thyromegaly, no JVD CVS/Heart: RRR, normal S1S2, pulses present bilaterally Chest/Lungs: CTA B, Symmetrical chest expansion, good air entry bilaterally GI/Abdomen: soft, NTND, good bowel sounds, no guarding or rebound /Bladder: no suprapubic tenderness, no CVA or paraspinal tenderness Extermity/Skin: no c/c/e, no obvious rash, + edema MSK: no joint swelling Neuro: contracted extremities Psych: unable to assess Subjective Date of service: 04/14/19 Principal diagnosis: anemia - dvt Interval history: Pt seen and examined discussed with RN at the bedside tolerating TF, wound care nurse at bedside Objective - Constitutional Vitals: Vital Signs - 12hr 04/14/19 04/14/19 04/14/19 02:00 02:31 03:00 Temperature Pulse Rate 121 H 119 H Pulse Rate [ Anterior Bilateral Throughout] Pulse Rate [ None] Respiratory 31 H 31 H Rate Respiratory Rate [Anterior Bilateral Throughout] Blood Pressure 123/62 137/86 117/63 O2 Sat by Pulse 94 95 Oximetry O2 Sat by Pulse Oximetry [ Assessment] 04/14/19 04/14/19 04/14/19 03:22 04:00 04:23 Temperature 101 F H Pulse Rate 107 H 111 H Pulse Rate [ Anterior Bilateral Throughout] Pulse Rate [ None] Respiratory 24 Rate Respiratory Rate [Anterior Bilateral Throughout] Blood Pressure 103/51 104/56 O2 Sat by Pulse 95 97 Oximetry O2 Sat by Pulse Oximetry [ Assessment] 04/14/19 04/14/19 04/14/19 04:30 05:00 06:00 Temperature Pulse Rate 109 H 120 H Pulse Rate [ Anterior Bilateral Throughout] Pulse Rate [ None] Respiratory 41 H 41 H Rate Respiratory Rate [Anterior Bilateral Throughout] Blood Pressure 127/59 120/66 O2 Sat by Pulse 94 93 Oximetry O2 Sat by Pulse 98 Oximetry [ Assessment] 04/14/19 04/14/19 04/14/19 07:00 08:00 08:36 Temperature 97.1 F L Pulse Rate 109 H 110 H 108 H Pulse Rate [ 120 H Anterior Bilateral Throughout] Pulse Rate [ 116 H None] Respiratory 28 H 33 H Rate Respiratory 44 H Rate [Anterior Bilateral Throughout] Blood Pressure 114/54 115/56 121/70 O2 Sat by Pulse 98 97 98 Oximetry O2 Sat by Pulse Oximetry [ Assessment] 04/14/19 04/14/19 04/14/19 09:00 11:44 12:42 Temperature Pulse Rate 120 H 114 H 90 Pulse Rate [ Anterior Bilateral Throughout] Pulse Rate [ None] Respiratory 47 H Rate Respiratory Rate [Anterior Bilateral Throughout] Blood Pressure 154/78 124/78 115/54 O2 Sat by Pulse 92 99 Oximetry O2 Sat by Pulse 95 Oximetry [ Assessment] - Labs CBC & Chem 7: 04/15/19 08:21 04/15/19 08:21 Labs: Abnormal lab results 04/13/19 04/14/19 04/14/19 Range/Units 18:23 04:22 08:15 WBC (4.5-11.0) K/mm3 RBC (3.65-5.03) M/mm3 Hgb (10.1-14.3) gm/dl Hct (30.3-42.9) % RDW (13.2-15.2) % Seg Neuts % (Manual) (40.0-70.0) % Lymphocytes % (Manual) (13.4-35.0) % Seg Neutrophils # Man (1.8-7.7) K/mm3 Lymphocytes # (Manual) (1.2-5.4) K/mm3 Eosinophils # (Manual) (0.0-0.4) K/mm3 Heparin Anti-Xa Level (0.3-0.7) U.I./ml POC ABG pO2 70 L (80-105) Sodium 135 L (137-145) mmol/L BUN 24 H (7-17) mg/dL Creatinine 1.3 H (0.7-1.2) mg/dL POC Glucose 129 H (70-105) Calcium 7.4 L (8.4-10.2) mg/dL Crossmatch 04/14/19 04/14/19 04/14/19 Range/Units 08:40 08:40 10:38 WBC 23.9 H (4.5-11.0) K/mm3 RBC 2.13 L (3.65-5.03) M/mm3 Hgb 6.6 L (10.1-14.3) gm/dl Hct 19.5 L* (30.3-42.9) % RDW 17.1 H (13.2-15.2) % Seg Neuts % (Manual) 90.0 H (40.0-70.0) % Lymphocytes % (Manual) 4.0 L (13.4-35.0) % Seg Neutrophils # Man 21.5 H (1.8-7.7) K/mm3 Lymphocytes # (Manual) 1.0 L (1.2-5.4) K/mm3 Eosinophils # (Manual) 0.7 H (0.0-0.4) K/mm3 Heparin Anti-Xa Level 0.14 L (0.3-0.7) U.I./ml POC ABG pO2 (80-105) Sodium (137-145) mmol/L BUN (7-17) mg/dL Creatinine (0.7-1.2) mg/dL POC Glucose (70-105) Calcium (8.4-10.2) mg/dL Crossmatch See Detail
[2019-04-14] MEDS ORDERED: SIMPLE SYRUP FEEDTUBE PRN ×2 (15:06)
[2019-04-14] MEDS ORDERED: PANCREAZE DR 10,500 UNIT FEEDTUBE PRN (15:06)
[2019-04-14] MEDS ORDERED: SODIUM BICARBONATE FEEDTUBE PRN (15:06)
[2019-04-14] MEDS: SUBLIMAZE IV PRN (22:16)
[2019-04-14] MEDS ORDERED: NACL 0.9% 500 ML 500 ML ONE (23:06)
[2019-04-15] MEDS: DUONEB *Not for PRN Use IH SCH ×4 (01:31→20:22)
[2019-04-15] MEDS: SUBLIMAZE IV PRN (02:22)
[2019-04-15] MEDS: DILAUDID IV PRN ×2 (02:23→23:03)
[2019-04-15] MEDS: HumaLOG SUB-Q SCH ×4 (02:24→22:57)
[2019-04-15] MEDS: LOPRESSOR PO SCH ×2 (09:00→22:48)
[2019-04-15 09:02] LABS: Hematocrit 25.1 % (30.3-42.9); Hemoglobin 8.4 gm/dl (10.1-14.3); Mean Corpuscular HGB Conc 34 % (30-34); Mean Corpuscular Volume 89 fl (79-97); Platelet Count 231 K/mm3 (140-440); Red Blood Count 2.83 M/mm3 (3.65-5.03); Red Cell Distribution Width 19.1 % (13.2-15.2)
[2019-04-15] MEDS: PULMICORT IH SCH ×2 (09:15→20:22)
[2019-04-15 09:18] LABS: Calcium 7.9 mg/dL (8.4-10.2)
[2019-04-15] MEDS: PEPCID PO SCH ×2 (10:34→22:48)
[2019-04-15] MEDS: CORDARONE PO SCH ×2 (10:36→22:48)
[2019-04-15] MEDS: BABY ASPIRIN PO SCH (10:36)
[2019-04-15] MEDS: SODIUM CHLORIDE FLUSH SYRINGE 10 ML IV SCH (10:37)
[2019-04-15 11:36] LABS: Band Neutrophils # (Manual) 0.5 K/mm3; Basophils % (Manual) 0 % (0.0-1.8); Total Cells Counted 100
[2019-04-15 11:38] LABS: Platelet Estimate Consistent w Auto
--- NOTE | 2019-04-15 12:05 | Progress Note ---
Assessment and Plan - Patient Problems (1) HA (acute kidney injury) Current Visit: Yes Status: Acute (2) Acute respiratory failure Current Visit: Yes Status: Acute Qualifiers: Respiratory failure complication: unspecified whether with hypoxia or hypercapnia Qualified Code(s): J96.00 - Acute respiratory failure, unspecified whether with hypoxia or hypercapnia (3) Aspiration pneumonia Current Visit: Yes Status: Acute Qualifiers: Laterality: bilateral (4) DVT prophylaxis Current Visit: Yes Status: Acute (5) Hypernatremia Current Visit: Yes Status: Acute (6) Sepsis Current Visit: Yes Status: Acute Qualifiers: Sepsis type: sepsis due to unspecified organism Qualified Code(s): A41.9 - Sepsis, unspecified organism Subjective Principal diagnosis: anemia - dvt Interval history: trach in place awake Objective Vital Signs - 12hr 04/15/19 04/15/19 04/15/19 00:10 00:20 00:30 Temperature Pulse Rate 97 H 99 H 101 H Pulse Rate [ Anterior Bilateral Throughout] Pulse Rate [ Right Dorsalis Pedis] Respiratory 25 H 26 H 45 H Rate Respiratory Rate [Anterior Bilateral Throughout] Blood Pressure 101/49 104/48 129/72 O2 Sat by Pulse 96 94 91 Oximetry O2 Sat by Pulse Oximetry [ Assessment] 04/15/19 04/15/19 04/15/19 00:40 00:50 01:00 Temperature Pulse Rate 99 H 98 H 95 H Pulse Rate [ Anterior Bilateral Throughout] Pulse Rate [ Right Dorsalis Pedis] Respiratory 23 25 H 25 H Rate Respiratory Rate [Anterior Bilateral Throughout] Blood Pressure 129/72 112/51 95/52 O2 Sat by Pulse 96 97 93 Oximetry O2 Sat by Pulse Oximetry [ Assessment] 04/15/19 04/15/19 04/15/19 01:10 01:20 01:30 Temperature Pulse Rate 98 H 99 H 99 H Pulse Rate [ Anterior Bilateral Throughout] Pulse Rate [ Right Dorsalis Pedis] Respiratory 39 H 42 H 42 H Rate Respiratory Rate [Anterior Bilateral Throughout] Blood Pressure 129/72 118/57 140/66 O2 Sat by Pulse 95 96 92 Oximetry O2 Sat by Pulse Oximetry [ Assessment] 04/15/19 04/15/19 04/15/19 01:40 01:50 02:00 Temperature Pulse Rate 96 H 97 H 99 H Pulse Rate [ Anterior Bilateral Throughout] Pulse Rate [ Right Dorsalis Pedis] Respiratory 24 24 43 H Rate Respiratory Rate [Anterior Bilateral Throughout] Blood Pressure 140/66 107/51 148/66 O2 Sat by Pulse 95 95 92 Oximetry O2 Sat by Pulse Oximetry [ Assessment] 04/15/19 04/15/19 04/15/19 02:10 02:15 02:20 Temperature Pulse Rate 99 H 97 H Pulse Rate [ Anterior Bilateral Throughout] Pulse Rate [ Right Dorsalis Pedis] Respiratory 28 H 25 H Rate Respiratory Rate [Anterior Bilateral Throughout] Blood Pressure 148/66 119/58 O2 Sat by Pulse 95 96 Oximetry O2 Sat by Pulse 96 Oximetry [ Assessment] 04/15/19 04/15/19 04/15/19 02:30 02:40 02:50 Temperature Pulse Rate 97 H 96 H 99 H Pulse Rate [ Anterior Bilateral Throughout] Pulse Rate [ Right Dorsalis Pedis] Respiratory 25 H 24 45 H Rate Respiratory Rate [Anterior Bilateral Throughout] Blood Pressure 118/62 118/62 124/55 O2 Sat by Pulse 96 97 96 Oximetry O2 Sat by Pulse Oximetry [ Assessment] 04/15/19 04/15/19 04/15/19 03:00 03:10 03:20 Temperature Pulse Rate 102 H 102 H 104 H Pulse Rate [ Anterior Bilateral Throughout] Pulse Rate [ Right Dorsalis Pedis] Respiratory 35 H 26 H 42 H Rate Respiratory Rate [Anterior Bilateral Throughout] Blood Pressure 138/79 138/79 129/75 O2 Sat by Pulse 93 96 96 Oximetry O2 Sat by Pulse Oximetry [ Assessment] 04/15/19 04/15/19 04/15/19 03:30 03:40 03:49 Temperature 98.9 F Pulse Rate 103 H 105 H Pulse Rate [ Anterior Bilateral Throughout] Pulse Rate [ Right Dorsalis Pedis] Respiratory 27 H 35 H Rate Respiratory Rate [Anterior Bilateral Throughout] Blood Pressure 147/73 147/73 O2 Sat by Pulse 97 95 Oximetry O2 Sat by Pulse Oximetry [ Assessment] 04/15/19 04/15/19 04/15/19 03:50 04:00 04:10 Temperature 98.1 F Pulse Rate 103 H 104 H 102 H Pulse Rate [ Anterior Bilateral Throughout] Pulse Rate [ Right Dorsalis Pedis] Respiratory 41 H 39 H 28 H Rate Respiratory Rate [Anterior Bilateral Throughout] Blood Pressure 137/69 156/73 156/73 O2 Sat by Pulse 97 93 96 Oximetry O2 Sat by Pulse Oximetry [ Assessment] 04/15/19 04/15/19 04/15/19 04:20 04:30 04:40 Temperature Pulse Rate 102 H 114 H 102 H Pulse Rate [ Anterior Bilateral Throughout] Pulse Rate [ Right Dorsalis Pedis] Respiratory 22 42 H 20 Rate Respiratory Rate [Anterior Bilateral Throughout] Blood Pressure 151/80 146/79 146/79 O2 Sat by Pulse 97 94 97 Oximetry O2 Sat by Pulse Oximetry [ Assessment] 04/15/19 04/15/19 04/15/19 04:49 05:00 05:50 Temperature 98.1 F Pulse Rate 101 H 108 H Pulse Rate [ Anterior Bilateral Throughout] Pulse Rate [ Right Dorsalis Pedis] Respiratory 24 Rate Respiratory Rate [Anterior Bilateral Throughout] Blood Pressure 127/57 167/86 O2 Sat by Pulse 96 95 Oximetry O2 Sat by Pulse Oximetry [ Assessment] 04/15/19 04/15/19 04/15/19 06:00 07:00 07:53 Temperature Pulse Rate 101 H 110 H Pulse Rate [ Anterior Bilateral Throughout] Pulse Rate [ 104 H Right Dorsalis Pedis] Respiratory 21 45 H 20 Rate Respiratory Rate [Anterior Bilateral Throughout] Blood Pressure 110/56 156/79 O2 Sat by Pulse 96 94 96 Oximetry O2 Sat by Pulse Oximetry [ Assessment] 04/15/19 04/15/19 08:00 09:00 Temperature 99.3 F Pulse Rate 111 H 120 H Pulse Rate [ 107 H Anterior Bilateral Throughout] Pulse Rate [ Right Dorsalis Pedis] Respiratory 22 Rate Respiratory 36 H Rate [Anterior Bilateral Throughout] Blood Pressure 121/62 141/69 O2 Sat by Pulse 98 Oximetry O2 Sat by Pulse Oximetry [ Assessment] Constitutional: other (trach, critically ill on ventilator, awake) Eyes: non-icteric ENT: other (intubated ) Neck: supple Effort: mildly labored Ascultation: Bilateral: rales (coarse bilat ) Percussion: Bilateral: not dull, dull Cardiovascular: other (tachy AF, no mrg) Gastrointestinal: normoactive bowel sounds, soft, non-tender, non-distended Integumentary: normal Extremities: anasarca Neurologic: other (awake, alert, L sided hemiparesis, contractures upper extremities) Psychiatric: mood appropriate, affect normal CBC and BMP: 04/15/19 08:21 04/15/19 08:21 ABG, PT/INR, D-dimer: ABG POC ABG pH 7.444 (7.35-7.45) 04/14/19 04:22 ABG pH 7.446 pH Units (7.350-7.450) 04/13/19 05:02 ABG pCO2 31.7 mm Hg 04/13/19 05:02 POC ABG pO2 70 (80-105) L 04/14/19 04:22 ABG pO2 85.6 mm Hg (80.0-90.0) 04/13/19 05:02 POC ABG HCO3 19.0 (22-26 mml/L) 04/14/19 04:22 POC ABG Total CO2 20 (23-27mmol/L) 04/14/19 04:22 POC ABG O2 Sat 95 04/14/19 04:22 ABG O2 Saturation 97.2 % (95.0-99.0) 04/13/19 05:02 PT/INR, D-dimer PT 16.6 Sec. (12.2-14.9) H 04/12/19 11:30 INR 1.38 (0.87-1.13) H 04/12/19 11:30 Abnormal lab findings: Abnormal Labs 03/19/19 03/19/19 03/19/19 12:59 12:59 12:59 WBC RBC 3.44 L Hgb Hct MCV 101 H MCH 34 H MCHC RDW Plt Count 98 L Lymph % (Auto) [place] % (Auto) Eos % (Auto) Lymph # [place] # Eos # Seg Neutrophils % Seg Neuts % (Manual) 11.0 L Lymphocytes % (Manual) Monocytes % (Manual) 10.0 H Eosinophils % (Manual) Nucleated RBC % 1.0 H Seg Neutrophils # Seg Neutrophils # Man 0.6 L Lymphocytes # (Manual) Monocytes # (Manual) Eosinophils # (Manual) PT INR APTT Heparin Anti-Xa Level POC ABG pH POC ABG pCO2 POC ABG pO2 ABG Base Excess ABG Hemoglobin Sodium 149 H Potassium Chloride 109.4 H Carbon Dioxide BUN 51 H Creatinine 3.2 H Glucose 58 L POC Glucose Lactic Acid 7.60 H* Calcium 7.8 L Phosphorus Magnesium 1.60 L Iron TIBC Ferritin Direct Bilirubin AST 75 H Total Creatine Kinase 1499 H Troponin T 0.109 H* Total Protein 5.2 L Albumin 1.7 L Prealbumin LDL Cholesterol Direct 22 L HDL Cholesterol 31 L Vitamin B12 TSH PTH Intact Urine Creatinine Urine Total Protein Vancomycin Trough Digoxin Salicylates Acetaminophen Crossmatch 03/19/19 03/19/19 03/19/19 12:59 12:59 14:48 WBC RBC Hgb Hct MCV MCH MCHC RDW Plt Count Lymph % (Auto) [place] % (Auto) Eos % (Auto) Lymph # [place] # Eos # Seg Neutrophils % Seg Neuts % (Manual) Lymphocytes % (Manual) Monocytes % (Manual) Eosinophils % (Manual) Nucleated RBC % Seg Neutrophils # Seg Neutrophils # Man Lymphocytes # (Manual) Monocytes # (Manual) Eosinophils # (Manual) PT INR APTT Heparin Anti-Xa Level POC ABG pH POC ABG pCO2 POC ABG pO2 ABG Base Excess ABG Hemoglobin Sodium Potassium Chloride Carbon Dioxide BUN Creatinine Glucose POC Glucose 44 L Lactic Acid Calcium Phosphorus Magnesium Iron TIBC Ferritin Direct Bilirubin AST Total Creatine Kinase Troponin T Total Protein Albumin Prealbumin LDL Cholesterol Direct HDL Cholesterol Vitamin B12 TSH PTH Intact Urine Creatinine Urine Total Protein Vancomycin Trough Digoxin Salicylates < 0.3 L Acetaminophen < 5.0 L Crossmatch 03/19/19 03/19/19 03/19/19 15:33 15:52 16:26 WBC RBC Hgb Hct MCV MCH MCHC RDW Plt Count Lymph % (Auto) [place] % (Auto) Eos % (Auto) Lymph # [place] # Eos # Seg Neutrophils % Seg Neuts % (Manual) Lymphocytes % (Manual) Monocytes % (Manual) Eosinophils % (Manual) Nucleated RBC % Seg Neutrophils # Seg Neutrophils # Man Lymphocytes # (Manual) Monocytes # (Manual) Eosinophils # (Manual) PT INR APTT Heparin Anti-Xa Level POC ABG pH POC ABG pCO2 POC ABG pO2 ABG Base Excess ABG Hemoglobin Sodium Potassium Chloride Carbon Dioxide BUN Creatinine Glucose POC Glucose 228 H 231 H Lactic Acid Calcium Phosphorus Magnesium Iron TIBC Ferritin Direct Bilirubin AST Total Creatine Kinase Troponin T Total Protein Albumin Prealbumin LDL Cholesterol Direct HDL Cholesterol Vitamin B12 TSH PTH Intact Urine Creatinine 31.8 H Urine Total Protein Vancomycin Trough Digoxin Salicylates Acetaminophen Crossmatch 03/19/19 03/19/19 03/19/19 16:38 17:14 18:43 WBC RBC Hgb Hct MCV MCH MCHC RDW Plt Count Lymph % (Auto) [place] % (Auto) Eos % (Auto) Lymph # [place] # Eos # Seg Neutrophils % Seg Neuts % (Manual) Lymphocytes % (Manual) Monocytes % (Manual) Eosinophils % (Manual) Nucleated RBC % Seg Neutrophils # Seg Neutrophils # Man Lymphocytes # (Manual) Monocytes # (Manual) Eosinophils # (Manual) PT INR APTT Heparin Anti-Xa Level POC ABG pH 7.196 L POC ABG pCO2 30.8 L POC ABG pO2 ABG Base Excess ABG Hemoglobin Sodium Potassium Chloride Carbon Dioxide BUN Creatinine Glucose POC Glucose 235 H Lactic Acid 8.10 H* Calcium Phosphorus Magnesium Iron TIBC Ferritin Direct Bilirubin AST Total Creatine Kinase Troponin T Total Protein Albumin Prealbumin LDL Cholesterol Direct HDL Cholesterol Vitamin B12 TSH PTH Intact Urine Creatinine Urine Total Protein Vancomycin Trough Digoxin Salicylates Acetaminophen Crossmatch 03/19/19 03/19/19 03/19/19 18:52 20:00 20:56 WBC RBC Hgb Hct MCV MCH MCHC RDW Plt Count Lymph % (Auto) [place] % (Auto) Eos % (Auto) Lymph # [place] # Eos # Seg Neutrophils % Seg Neuts % (Manual) Lymphocytes % (Manual) Monocytes % (Manual) Eosinophils % (Manual) Nucleated RBC % Seg Neutrophils # Seg Neutrophils # Man Lymphocytes # (Manual) Monocytes # (Manual) Eosinophils # (Manual) PT INR APTT Heparin Anti-Xa Level POC ABG pH POC ABG pCO2 POC ABG pO2 ABG Base Excess ABG Hemoglobin Sodium Potassium Chloride Carbon Dioxide BUN Creatinine Glucose POC Glucose 240 H 117 H Lactic Acid 5.90 H* Calcium Phosphorus Magnesium Iron TIBC Ferritin Direct Bilirubin AST Total Creatine Kinase Troponin T Total Protein Albumin Prealbumin LDL Cholesterol Direct HDL Cholesterol Vitamin B12 TSH PTH Intact Urine Creatinine Urine Total Protein Vancomycin Trough Digoxin Salicylates Acetaminophen Crossmatch 03/19/19 03/19/19 03/19/19 21:19 22:07 23:00 WBC RBC Hgb Hct MCV MCH MCHC RDW Plt Count Lymph % (Auto) [place] % (Auto) Eos % (Auto) Lymph # [place] # Eos # Seg Neutrophils % Seg Neuts % (Manual) Lymphocytes % (Manual) Monocytes % (Manual) Eosinophils % (Manual) Nucleated RBC % Seg Neutrophils # Seg Neutrophils # Man Lymphocytes # (Manual) Monocytes # (Manual) Eosinophils # (Manual) PT INR APTT Heparin Anti-Xa Level POC ABG pH POC ABG pCO2 POC ABG pO2 ABG Base Excess ABG Hemoglobin Sodium Potassium Chloride Carbon Dioxide BUN Creatinine Glucose POC Glucose < 40 L 136 H Lactic Acid 6.10 H* Calcium Phosphorus Magnesium Iron TIBC Ferritin Direct Bilirubin AST Total Creatine Kinase Troponin T Total Protein Albumin Prealbumin LDL Cholesterol Direct HDL Cholesterol Vitamin B12 TSH PTH Intact Urine Creatinine Urine Total Protein Vancomycin Trough Digoxin Salicylates Acetaminophen Crossmatch 03/20/19 03/20/19 03/20/19 00:05 01:38 02:23 WBC RBC Hgb Hct MCV MCH MCHC RDW Plt Count Lymph % (Auto) [place] % (Auto) Eos % (Auto) Lymph # [place] # Eos # Seg Neutrophils % Seg Neuts % (Manual) Lymphocytes % (Manual) Monocytes % (Manual) Eosinophils % (Manual) Nucleated RBC % Seg Neutrophils # Seg Neutrophils # Man Lymphocytes # (Manual) Monocytes # (Manual) Eosinophils # (Manual) PT INR APTT Heparin Anti-Xa Level POC ABG pH POC ABG pCO2 POC ABG pO2 ABG Base Excess ABG Hemoglobin Sodium Potassium Chloride Carbon Dioxide BUN Creatinine Glucose POC Glucose 68 L 153 H 127 H Lactic Acid Calcium Phosphorus Magnesium Iron TIBC Ferritin Direct Bilirubin AST Total Creatine Kinase Troponin T Total Protein Albumin Prealbumin LDL Cholesterol Direct HDL Cholesterol Vitamin B12 TSH PTH Intact Urine Creatinine Urine Total Protein Vancomycin Trough Digoxin Salicylates Acetaminophen Crossmatch 03/20/19 03/20/19 03/20/19 03:12 04:31 04:41 WBC RBC Hgb Hct MCV MCH MCHC RDW Plt Count Lymph % (Auto) [place] % (Auto) Eos % (Auto) Lymph # [place] # Eos # Seg Neutrophils % Seg Neuts % (Manual) Lymphocytes % (Manual) Monocytes % (Manual) Eosinophils % (Manual) Nucleated RBC % Seg Neutrophils # Seg Neutrophils # Man Lymphocytes # (Manual) Monocytes # (Manual) Eosinophils # (Manual) PT INR APTT Heparin Anti-Xa Level POC ABG pH POC ABG pCO2 POC ABG pO2 53 L 65 L ABG Base Excess ABG Hemoglobin Sodium Potassium Chloride Carbon Dioxide BUN Creatinine Glucose POC Glucose 109 H Lactic Acid Calcium Phosphorus Magnesium Iron TIBC Ferritin Direct Bilirubin AST Total Creatine Kinase Troponin T Total Protein Albumin Prealbumin LDL Cholesterol Direct HDL Cholesterol Vitamin B12 TSH PTH Intact Urine Creatinine Urine Total Protein Vancomycin Trough Digoxin Salicylates Acetaminophen Crossmatch 03/20/19 03/20/19 03/20/19 05:50 07:29 08:14 WBC RBC Hgb Hct MCV MCH MCHC RDW Plt Count Lymph % (Auto) [place] % (Auto) Eos % (Auto) Lymph # [place] # Eos # Seg Neutrophils % Seg Neuts % (Manual) Lymphocytes % (Manual) Monocytes % (Manual) Eosinophils % (Manual) Nucleated RBC % Seg Neutrophils # Seg Neutrophils # Man Lymphocytes # (Manual) Monocytes # (Manual) Eosinophils # (Manual) PT INR APTT Heparin Anti-Xa Level POC ABG pH POC ABG pCO2 POC ABG pO2 ABG Base Excess ABG Hemoglobin Sodium Potassium Chloride Carbon Dioxide BUN Creatinine Glucose 61 L POC Glucose 47 L 153 H Lactic Acid Calcium Phosphorus Magnesium 1.60 L Iron TIBC Ferritin Direct Bilirubin AST Total Creatine Kinase Troponin T Total Protein Albumin Prealbumin LDL Cholesterol Direct HDL Cholesterol Vitamin B12 TSH PTH Intact Urine Creatinine Urine Total Protein Vancomycin Trough Digoxin Salicylates Acetaminophen Crossmatch 03/20/19 03/20/19 03/20/19 08:23 08:23 10:59 WBC RBC Hgb Hct MCV MCH MCHC RDW Plt Count Lymph % (Auto) [place] % (Auto) Eos % (Auto) Lymph # [place] # Eos # Seg Neutrophils % Seg Neuts % (Manual) Lymphocytes % (Manual) Monocytes % (Manual) Eosinophils % (Manual) Nucleated RBC % Seg Neutrophils # Seg Neutrophils # Man Lymphocytes # (Manual) Monocytes # (Manual) Eosinophils # (Manual) PT INR APTT Heparin Anti-Xa Level POC ABG pH POC ABG pCO2 POC ABG pO2 ABG Base Excess ABG Hemoglobin Sodium Potassium Chloride Carbon Dioxide BUN Creatinine Glucose 101 H POC Glucose 233 H Lactic Acid 9.70 H* Calcium Phosphorus Magnesium Iron TIBC Ferritin Direct Bilirubin AST Total Creatine Kinase Troponin T Total Protein Albumin Prealbumin 0.052 L LDL Cholesterol Direct HDL Cholesterol Vitamin B12 TSH PTH Intact Urine Creatinine Urine Total Protein Vancomycin Trough Digoxin Salicylates Acetaminophen Crossmatch 03/20/19 03/20/19 03/20/19 12:23 16:10 16:40 WBC RBC Hgb Hct MCV MCH MCHC RDW Plt Count Lymph % (Auto) [place] % (Auto) Eos % (Auto) Lymph # [place] # Eos # Seg Neutrophils % Seg Neuts % (Manual) Lymphocytes % (Manual) Monocytes % (Manual) Eosinophils % (Manual) Nucleated RBC % Seg Neutrophils # Seg Neutrophils # Man Lymphocytes # (Manual) Monocytes # (Manual) Eosinophils # (Manual) PT INR APTT Heparin Anti-Xa Level POC ABG pH POC ABG pCO2 POC ABG pO2 ABG Base Excess ABG Hemoglobin Sodium Potassium Chloride Carbon Dioxide BUN Creatinine Glucose POC Glucose 135 H 171 H Lactic Acid Calcium Phosphorus Magnesium Iron TIBC Ferritin Direct Bilirubin AST Total Creatine Kinase Troponin T Total Protein Albumin Prealbumin LDL Cholesterol Direct HDL Cholesterol Vitamin B12 TSH PTH Intact Urine Creatinine 53.7 H Urine Total Protein 36 H Vancomycin Trough Digoxin Salicylates Acetaminophen Crossmatch 03/20/19 03/20/19 03/20/19 16:57 17:38 17:50 WBC RBC Hgb Hct MCV MCH MCHC RDW Plt Count Lymph % (Auto) [place] % (Auto) Eos % (Auto) Lymph # [place] # Eos # Seg Neutrophils % Seg Neuts % (Manual) Lymphocytes % (Manual) Monocytes % (Manual) Eosinophils % (Manual) Nucleated RBC % Seg Neutrophils # Seg Neutrophils # Man Lymphocytes # (Manual) Monocytes # (Manual) Eosinophils # (Manual) PT INR APTT Heparin Anti-Xa Level POC ABG pH POC ABG pCO2 POC ABG pO2 ABG Base Excess ABG Hemoglobin Sodium Potassium Chloride Carbon Dioxide BUN Creatinine Glucose POC Glucose 152 H 147 H Lactic Acid 9.90 H* Calcium Phosphorus Magnesium Iron TIBC Ferritin Direct Bilirubin AST Total Creatine Kinase Troponin T Total Protein Albumin Prealbumin LDL Cholesterol Direct HDL Cholesterol Vitamin B12 TSH PTH Intact Urine Creatinine Urine Total Protein Vancomycin Trough Digoxin Salicylates Acetaminophen Crossmatch 03/20/19 03/20/19 03/20/19 17:50 17:50 17:50 WBC RBC 2.92 L Hgb 10.0 L Hct 29.3 L MCV 100 H MCH 34 H MCHC RDW Plt Count 81 L Lymph % (Auto) [place] % (Auto) Eos % (Auto) Lymph # [place] # Eos # Seg Neutrophils % Seg Neuts % (Manual) Lymphocytes % (Manual) Monocytes % (Manual) Eosinophils % (Manual) Nucleated RBC % Seg Neutrophils # Seg Neutrophils # Man Lymphocytes # (Manual) Monocytes # (Manual) Eosinophils # (Manual) PT INR APTT Heparin Anti-Xa Level POC ABG pH POC ABG pCO2 POC ABG pO2 ABG Base Excess ABG Hemoglobin Sodium Potassium 2.8 L* D Chloride Carbon Dioxide BUN 30 H Creatinine 1.6 H Glucose 107 H POC Glucose Lactic Acid Calcium 6.9 L Phosphorus 2.00 L Magnesium Iron TIBC Ferritin Direct Bilirubin AST Total Creatine Kinase Troponin T Total Protein Albumin Prealbumin LDL Cholesterol Direct HDL Cholesterol Vitamin B12 TSH PTH Intact 171.6 H Urine Creatinine Urine Total Protein Vancomycin Trough Digoxin Salicylates Acetaminophen Crossmatch 03/20/19 03/21/19 03/21/19 21:12 00:30 04:12 WBC RBC Hgb Hct MCV MCH MCHC RDW Plt Count Lymph % (Auto) [place] % (Auto) Eos % (Auto) Lymph # [place] # Eos # Seg Neutrophils % Seg Neuts % (Manual) Lymphocytes % (Manual) Monocytes % (Manual) Eosinophils % (Manual) Nucleated RBC % Seg Neutrophils # Seg Neutrophils # Man Lymphocytes # (Manual) Monocytes # (Manual) Eosinophils # (Manual) PT INR APTT Heparin Anti-Xa Level POC ABG pH POC ABG pCO2 POC ABG pO2 ABG Base Excess ABG Hemoglobin Sodium Potassium 3.0 L Chloride Carbon Dioxide 21 L BUN Creatinine 1.4 H Glucose 103 H POC Glucose Lactic Acid 8.70 H* 9.40 H* Calcium 6.8 L Phosphorus Magnesium Iron TIBC Ferritin Direct Bilirubin AST Total Creatine Kinase Troponin T Total Protein Albumin Prealbumin LDL Cholesterol Direct HDL Cholesterol Vitamin B12 TSH PTH Intact Urine Creatinine Urine Total Protein Vancomycin Trough Digoxin Salicylates Acetaminophen Crossmatch 03/21/19 03/21/19 03/21/19 04:12 04:12 04:43 WBC RBC 2.84 L Hgb 9.5 L Hct 28.3 L MCV 100 H MCH 33 H MCHC RDW Plt Count 79 L Lymph % (Auto) [place] % (Auto) Eos % (Auto) Lymph # [place] # Eos # Seg Neutrophils % Seg Neuts % (Manual) Lymphocytes % (Manual) Monocytes % (Manual) Eosinophils % (Manual) Nucleated RBC % Seg Neutrophils # Seg Neutrophils # Man Lymphocytes # (Manual) Monocytes # (Manual) Eosinophils # (Manual) PT INR APTT Heparin Anti-Xa Level POC ABG pH 7.456 H POC ABG pCO2 POC ABG pO2 ABG Base Excess ABG Hemoglobin Sodium Potassium Chloride Carbon Dioxide BUN Creatinine Glucose POC Glucose Lactic Acid 9.50 H* Calcium Phosphorus Magnesium Iron TIBC Ferritin Direct Bilirubin AST Total Creatine Kinase Troponin T Total Protein Albumin Prealbumin LDL Cholesterol Direct HDL Cholesterol Vitamin B12 TSH PTH Intact Urine Creatinine Urine Total Protein Vancomycin Trough Digoxin Salicylates Acetaminophen Crossmatch 03/21/19 03/21/19 03/21/19 08:06 08:08 10:11 WBC RBC Hgb Hct MCV MCH MCHC RDW Plt Count Lymph % (Auto) [place] % (Auto) Eos % (Auto) Lymph # [place] # Eos # Seg Neutrophils % Seg Neuts % (Manual) Lymphocytes % (Manual) Monocytes % (Manual) Eosinophils % (Manual) Nucleated RBC % Seg Neutrophils # Seg Neutrophils # Man Lymphocytes # (Manual) Monocytes # (Manual) Eosinophils # (Manual) PT INR APTT Heparin Anti-Xa Level POC ABG pH POC ABG pCO2 POC ABG pO2 ABG Base Excess ABG Hemoglobin Sodium Potassium 3.5 L Chloride Carbon Dioxide BUN 22 H Creatinine 1.3 H Glucose POC Glucose 64 L Lactic Acid 8.00 H* Calcium 7.0 L Phosphorus Magnesium Iron TIBC Ferritin Direct Bilirubin AST Total Creatine Kinase Troponin T Total Protein Albumin Prealbumin LDL Cholesterol Direct HDL Cholesterol Vitamin B12 TSH PTH Intact Urine Creatinine Urine Total Protein Vancomycin Trough Digoxin Salicylates Acetaminophen Crossmatch 03/21/19 03/21/19 03/21/19 11:17 12:17 13:37 WBC RBC Hgb Hct MCV MCH MCHC RDW Plt Count Lymph % (Auto) [place] % (Auto) Eos % (Auto) Lymph # [place] # Eos # Seg Neutrophils % Seg Neuts % (Manual) Lymphocytes % (Manual) Monocytes % (Manual) Eosinophils % (Manual) Nucleated RBC % Seg Neutrophils # Seg Neutrophils # Man Lymphocytes # (Manual) Monocytes # (Manual) Eosinophils # (Manual) PT INR APTT Heparin Anti-Xa Level POC ABG pH POC ABG pCO2 POC ABG pO2 ABG Base Excess ABG Hemoglobin Sodium Potassium Chloride Carbon Dioxide BUN Creatinine Glucose POC Glucose 173 H 110 H Lactic Acid Calcium Phosphorus Magnesium Iron TIBC Ferritin Direct Bilirubin AST Total Creatine Kinase Troponin T 0.033 H D Total Protein Albumin Prealbumin LDL Cholesterol Direct HDL Cholesterol Vitamin B12 TSH PTH Intact Urine Creatinine Urine Total Protein Vancomycin Trough Digoxin Salicylates Acetaminophen Crossmatch 03/21/19 03/21/19 03/21/19 13:37 17:21 18:52 WBC RBC Hgb Hct MCV MCH MCHC RDW Plt Count Lymph % (Auto) [place] % (Auto) Eos % (Auto) Lymph # [place] # Eos # Seg Neutrophils % Seg Neuts % (Manual) Lymphocytes % (Manual) Monocytes % (Manual) Eosinophils % (Manual) Nucleated RBC % Seg Neutrophils # Seg Neutrophils # Man Lymphocytes # (Manual) Monocytes # (Manual) Eosinophils # (Manual) PT INR APTT Heparin Anti-Xa Level POC ABG pH POC ABG pCO2 POC ABG pO2 ABG Base Excess ABG Hemoglobin Sodium Potassium Chloride Carbon Dioxide BUN Creatinine Glucose POC Glucose 130 H 107 H Lactic Acid 6.80 H* Calcium Phosphorus Magnesium Iron TIBC Ferritin Direct Bilirubin AST Total Creatine Kinase Troponin T Total Protein Albumin Prealbumin LDL Cholesterol Direct HDL Cholesterol Vitamin B12 TSH PTH Intact Urine Creatinine Urine Total Protein Vancomycin Trough Digoxin Salicylates Acetaminophen Crossmatch 03/21/19 03/21/19 03/21/19 20:20 22:08 23:05 WBC RBC Hgb Hct MCV MCH MCHC RDW Plt Count Lymph % (Auto) [place] % (Auto) Eos % (Auto) Lymph # [place] # Eos # Seg Neutrophils % Seg Neuts % (Manual) Lymphocytes % (Manual) Monocytes % (Manual) Eosinophils % (Manual) Nucleated RBC % Seg Neutrophils # Seg Neutrophils # Man Lymphocytes # (Manual) Monocytes # (Manual) Eosinophils # (Manual) PT INR APTT Heparin Anti-Xa Level POC ABG pH POC ABG pCO2 POC ABG pO2 ABG Base Excess ABG Hemoglobin Sodium Potassium Chloride Carbon Dioxide BUN Creatinine Glucose POC Glucose 106 H 106 H Lactic Acid Calcium Phosphorus Magnesium Iron TIBC Ferritin Direct Bilirubin AST Total Creatine Kinase Troponin T 0.036 H Total Protein Albumin Prealbumin LDL Cholesterol Direct HDL Cholesterol Vitamin B12 TSH PTH Intact Urine Creatinine Urine Total Protein Vancomycin Trough Digoxin Salicylates Acetaminophen Crossmatch 03/21/19 03/21/19 03/22/19 23:05 23:05 00:14 WBC RBC Hgb Hct MCV MCH MCHC RDW Plt Count Lymph % (Auto) [place] % (Auto) Eos % (Auto) Lymph # [place] # Eos # Seg Neutrophils % Seg Neuts % (Manual) Lymphocytes % (Manual) Monocytes % (Manual) Eosinophils % (Manual) Nucleated RBC % Seg Neutrophils # Seg Neutrophils # Man Lymphocytes # (Manual) Monocytes # (Manual) Eosinophils # (Manual) PT INR APTT Heparin Anti-Xa Level POC ABG pH POC ABG pCO2 POC ABG pO2 ABG Base Excess ABG Hemoglobin Sodium Potassium Chloride Carbon Dioxide BUN Creatinine Glucose POC Glucose 122 H 109 H Lactic Acid 7.00 H* Calcium Phosphorus Magnesium Iron TIBC Ferritin Direct Bilirubin AST Total Creatine Kinase Troponin T Total Protein Albumin Prealbumin LDL Cholesterol Direct HDL Cholesterol Vitamin B12 TSH PTH Intact Urine Creatinine Urine Total Protein Vancomycin Trough Digoxin Salicylates Acetaminophen Crossmatch 03/22/19 03/22/19 03/22/19 03:10 04:02 05:11 WBC RBC Hgb Hct MCV MCH MCHC RDW Plt Count Lymph % (Auto) [place] % (Auto) Eos % (Auto) Lymph # [place] # Eos # Seg Neutrophils % Seg Neuts % (Manual) Lymphocytes % (Manual) Monocytes % (Manual) Eosinophils % (Manual) Nucleated RBC % Seg Neutrophils # Seg Neutrophils # Man Lymphocytes # (Manual) Monocytes # (Manual) Eosinophils # (Manual) PT INR APTT Heparin Anti-Xa Level POC ABG pH 7.487 H POC ABG pCO2 POC ABG pO2 67 L ABG Base Excess ABG Hemoglobin Sodium Potassium Chloride Carbon Dioxide BUN Creatinine Glucose POC Glucose 114 H 112 H Lactic Acid Calcium Phosphorus Magnesium Iron TIBC Ferritin Direct Bilirubin AST Total Creatine Kinase Troponin T Total Protein Albumin Prealbumin LDL Cholesterol Direct HDL Cholesterol Vitamin B12 TSH PTH Intact Urine Creatinine Urine Total Protein Vancomycin Trough Digoxin Salicylates Acetaminophen Crossmatch 03/22/19 03/22/19 03/22/19 06:06 06:10 06:10 WBC RBC Hgb Hct MCV MCH MCHC RDW Plt Count Lymph % (Auto) [place] % (Auto) Eos % (Auto) Lymph # [place] # Eos # Seg Neutrophils % Seg Neuts % (Manual) Lymphocytes % (Manual) Monocytes % (Manual) Eosinophils % (Manual) Nucleated RBC % Seg Neutrophils # Seg Neutrophils # Man Lymphocytes # (Manual) Monocytes # (Manual) Eosinophils # (Manual) PT INR APTT Heparin Anti-Xa Level POC ABG pH POC ABG pCO2 POC ABG pO2 ABG Base Excess ABG Hemoglobin Sodium Potassium 3.0 L Chloride Carbon Dioxide BUN Creatinine Glucose POC Glucose 115 H Lactic Acid Calcium 7.0 L Phosphorus Magnesium Iron TIBC Ferritin Direct Bilirubin AST Total Creatine Kinase Troponin T 0.036 H Total Protein Albumin Prealbumin LDL Cholesterol Direct HDL Cholesterol Vitamin B12 TSH PTH Intact Urine Creatinine Urine Total Protein Vancomycin Trough Digoxin Salicylates Acetaminophen Crossmatch 03/22/19 03/22/19 03/22/19 06:10 06:10 11:59 WBC RBC Hgb Hct MCV MCH MCHC RDW Plt Count Lymph % (Auto) [place] % (Auto) Eos % (Auto) Lymph # [place] # Eos # Seg Neutrophils % Seg Neuts % (Manual) Lymphocytes % (Manual) Monocytes % (Manual) Eosinophils % (Manual) Nucleated RBC % Seg Neutrophils # Seg Neutrophils # Man Lymphocytes # (Manual) Monocytes # (Manual) Eosinophils # (Manual) PT INR APTT Heparin Anti-Xa Level POC ABG pH POC ABG pCO2 POC ABG pO2 ABG Base Excess ABG Hemoglobin Sodium Potassium Chloride Carbon Dioxide BUN Creatinine Glucose POC Glucose Lactic Acid 4.80 H* 3.80 H* Calcium Phosphorus Magnesium Iron TIBC Ferritin Direct Bilirubin AST Total Creatine Kinase Troponin T Total Protein Albumin Prealbumin LDL Cholesterol Direct HDL Cholesterol Vitamin B12 TSH 7.810 H PTH Intact Urine Creatinine Urine Total Protein Vancomycin Trough Digoxin Salicylates Acetaminophen Crossmatch 03/22/19 03/22/19 03/22/19 13:45 13:45 13:45 WBC RBC Hgb 8.3 L Hct 24.5 L MCV MCH MCHC RDW Plt Count 56 L Lymph % (Auto) [place] % (Auto) Eos % (Auto) Lymph # [place] # Eos # Seg Neutrophils % Seg Neuts % (Manual) Lymphocytes % (Manual) Monocytes % (Manual) Eosinophils % (Manual) Nucleated RBC % Seg Neutrophils # Seg Neutrophils # Man Lymphocytes # (Manual) Monocytes # (Manual) Eosinophils # (Manual) PT 21.4 H INR 1.90 H APTT 43.2 H Heparin Anti-Xa Level POC ABG pH POC ABG pCO2 POC ABG pO2 ABG Base Excess ABG Hemoglobin Sodium Potassium Chloride Carbon Dioxide BUN Creatinine Glucose POC Glucose Lactic Acid 3.50 H* Calcium Phosphorus Magnesium Iron TIBC Ferritin Direct Bilirubin AST Total Creatine Kinase Troponin T Total Protein Albumin Prealbumin LDL Cholesterol Direct HDL Cholesterol Vitamin B12 TSH PTH Intact Urine Creatinine Urine Total Protein Vancomycin Trough Digoxin Salicylates Acetaminophen Crossmatch 03/22/19 03/23/19 03/23/19 22:20 01:06 04:50 WBC 12.1 H RBC 2.36 L Hgb 7.7 L Hct 22.9 L MCV MCH 33 H MCHC RDW Plt Count 37 L Lymph % (Auto) [place] % (Auto) Eos % (Auto) Lymph # [place] # Eos # Seg Neutrophils % Seg Neuts % (Manual) 83.0 H Lymphocytes % (Manual) 8.0 L Monocytes % (Manual) Eosinophils % (Manual) Nucleated RBC % Seg Neutrophils # Seg Neutrophils # Man 10.0 H Lymphocytes # (Manual) 1.0 L Monocytes # (Manual) Eosinophils # (Manual) PT INR APTT Heparin Anti-Xa Level POC ABG pH POC ABG pCO2 POC ABG pO2 ABG Base Excess ABG Hemoglobin Sodium Potassium Chloride Carbon Dioxide BUN Creatinine Glucose POC Glucose Lactic Acid 3.60 H* 2.70 H* Calcium Phosphorus Magnesium Iron TIBC Ferritin Direct Bilirubin AST Total Creatine Kinase Troponin T Total Protein Albumin Prealbumin LDL Cholesterol Direct HDL Cholesterol Vitamin B12 TSH PTH Intact Urine Creatinine Urine Total Protein Vancomycin Trough Digoxin Salicylates Acetaminophen Crossmatch 03/23/19 03/23/19 03/23/19 04:50 05:25 05:53 WBC RBC Hgb Hct MCV MCH MCHC RDW Plt Count Lymph % (Auto) [place] % (Auto) Eos % (Auto) Lymph # [place] # Eos # Seg Neutrophils % Seg Neuts % (Manual) Lymphocytes % (Manual) Monocytes % (Manual) Eosinophils % (Manual) Nucleated RBC % Seg Neutrophils # Seg Neutrophils # Man Lymphocytes # (Manual) Monocytes # (Manual) Eosinophils # (Manual) PT INR APTT Heparin Anti-Xa Level POC ABG pH POC ABG pCO2 33.3 L POC ABG pO2 ABG Base Excess ABG Hemoglobin Sodium Potassium 3.5 L Chloride 108.3 H Carbon Dioxide BUN Creatinine Glucose POC Glucose 68 L Lactic Acid Calcium 7.3 L Phosphorus Magnesium Iron TIBC Ferritin Direct Bilirubin AST Total Creatine Kinase Troponin T Total Protein Albumin Prealbumin LDL Cholesterol Direct HDL Cholesterol Vitamin B12 TSH PTH Intact Urine Creatinine Urine Total Protein Vancomycin Trough Digoxin Salicylates Acetaminophen Crossmatch 03/24/19 03/24/19 03/24/19 03:26 05:50 05:57 WBC RBC Hgb Hct MCV MCH MCHC RDW Plt Count Lymph % (Auto) [place] % (Auto) Eos % (Auto) Lymph # [place] # Eos # Seg Neutrophils % Seg Neuts % (Manual) Lymphocytes % (Manual) Monocytes % (Manual) Eosinophils % (Manual) Nucleated RBC % Seg Neutrophils # Seg Neutrophils # Man Lymphocytes # (Manual) Monocytes # (Manual) Eosinophils # (Manual) PT INR APTT Heparin Anti-Xa Level POC ABG pH POC ABG pCO2 POC ABG pO2 78 L ABG Base Excess ABG Hemoglobin Sodium Potassium 3.4 L Chloride 116.5 H Carbon Dioxide 21 L BUN Creatinine 0.5 L Glucose 105 H POC Glucose 127 H Lactic Acid Calcium 6.4 L Phosphorus Magnesium Iron TIBC Ferritin Direct Bilirubin AST Total Creatine Kinase Troponin T Total Protein Albumin Prealbumin LDL Cholesterol Direct HDL Cholesterol Vitamin B12 TSH PTH Intact Urine Creatinine Urine Total Protein Vancomycin Trough Digoxin Salicylates Acetaminophen Crossmatch 03/24/19 03/24/19 03/24/19 06:00 11:30 12:25 WBC 13.6 H RBC 2.08 L Hgb 6.9 L Hct 20.5 L MCV 99 H MCH 33 H MCHC RDW Plt Count 50 L Lymph % (Auto) 8.1 L [place] % (Auto) 10.0 H Eos % (Auto) Lymph # 1.1 L [place] # 1.4 H Eos # Seg Neutrophils % 80.7 H Seg Neuts % (Manual) Lymphocytes % (Manual) Monocytes % (Manual) Eosinophils % (Manual) Nucleated RBC % Seg Neutrophils # 11.0 H Seg Neutrophils # Man Lymphocytes # (Manual) Monocytes # (Manual) Eosinophils # (Manual) PT INR APTT Heparin Anti-Xa Level POC ABG pH POC ABG pCO2 POC ABG pO2 ABG Base Excess ABG Hemoglobin Sodium Potassium Chloride Carbon Dioxide BUN Creatinine Glucose POC Glucose 111 H Lactic Acid Calcium Phosphorus Magnesium Iron TIBC Ferritin Direct Bilirubin AST Total Creatine Kinase Troponin T Total Protein Albumin Prealbumin LDL Cholesterol Direct HDL Cholesterol Vitamin B12 TSH PTH Intact Urine Creatinine Urine Total Protein Vancomycin Trough Digoxin Salicylates Acetaminophen Crossmatch See Detail 03/24/19 03/25/19 03/25/19 14:25 05:20 10:00 WBC 13.4 H RBC 2.54 L Hgb 8.1 L Hct 24.3 L MCV MCH MCHC RDW 17.3 H Plt Count 44 L Lymph % (Auto) [place] % (Auto) Eos % (Auto) Lymph # [place] # Eos # Seg Neutrophils % Seg Neuts % (Manual) Lymphocytes % (Manual) Monocytes % (Manual) Eosinophils % (Manual) Nucleated RBC % Seg Neutrophils # Seg Neutrophils # Man Lymphocytes # (Manual) Monocytes # (Manual) Eosinophils # (Manual) PT INR APTT Heparin Anti-Xa Level POC ABG pH POC ABG pCO2 POC ABG pO2 ABG Base Excess ABG Hemoglobin Sodium Potassium Chloride Carbon Dioxide BUN Creatinine Glucose POC Glucose 111 H Lactic Acid Calcium Phosphorus Magnesium Iron 32 L TIBC 75 L Ferritin Direct Bilirubin AST Total Creatine Kinase Troponin T Total Protein Albumin Prealbumin LDL Cholesterol Direct HDL Cholesterol Vitamin B12 TSH PTH Intact Urine Creatinine Urine Total Protein Vancomycin Trough Digoxin Salicylates Acetaminophen Crossmatch 03/25/19 03/25/19 03/25/19 10:11 10:11 23:11 WBC RBC Hgb Hct MCV MCH MCHC RDW Plt Count Lymph % (Auto) [place] % (Auto) Eos % (Auto) Lymph # [place] # Eos # Seg Neutrophils % Seg Neuts % (Manual) Lymphocytes % (Manual) Monocytes % (Manual) Eosinophils % (Manual) Nucleated RBC % Seg Neutrophils # Seg Neutrophils # Man Lymphocytes # (Manual) Monocytes # (Manual) Eosinophils # (Manual) PT INR APTT Heparin Anti-Xa Level POC ABG pH POC ABG pCO2 POC ABG pO2 ABG Base Excess ABG Hemoglobin Sodium Potassium Chloride 112.0 H Carbon Dioxide BUN 20 H Creatinine 0.6 L Glucose POC Glucose 112 H Lactic Acid Calcium 7.2 L Phosphorus Magnesium Iron TIBC Ferritin Direct Bilirubin AST Total Creatine Kinase Troponin T Total Protein Albumin Prealbumin LDL Cholesterol Direct HDL Cholesterol Vitamin B12 > 2000 H TSH PTH Intact Urine Creatinine Urine Total Protein Vancomycin Trough Digoxin Salicylates Acetaminophen Crossmatch 03/26/19 03/26/19 03/26/19 05:00 05:00 05:16 WBC 14.4 H RBC 2.74 L Hgb 8.9 L Hct 25.7 L MCV MCH 33 H MCHC 35 H RDW 16.9 H Plt Count 60 L Lymph % (Auto) [place] % (Auto) Eos % (Auto) Lymph # [place] # Eos # Seg Neutrophils % Seg Neuts % (Manual) 83.0 H Lymphocytes % (Manual) 5.0 L Monocytes % (Manual) Eosinophils % (Manual) 5.0 H Nucleated RBC % 1.0 H Seg Neutrophils # Seg Neutrophils # Man 12.0 H Lymphocytes # (Manual) 0.7 L Monocytes # (Manual) 0.9 H Eosinophils # (Manual) 0.7 H PT INR APTT Heparin Anti-Xa Level POC ABG pH POC ABG pCO2 POC ABG pO2 ABG Base Excess ABG Hemoglobin Sodium Potassium 3.1 L Chloride 110.4 H Carbon Dioxide BUN 22 H Creatinine Glucose 101 H POC Glucose 114 H Lactic Acid Calcium 7.4 L Phosphorus Magnesium Iron TIBC Ferritin Direct Bilirubin AST Total Creatine Kinase Troponin T Total Protein Albumin Prealbumin LDL Cholesterol Direct HDL Cholesterol Vitamin B12 TSH PTH Intact Urine Creatinine Urine Total Protein Vancomycin Trough Digoxin Salicylates Acetaminophen Crossmatch 03/26/19 03/27/19 03/27/19 11:55 09:04 09:04 WBC RBC Hgb Hct MCV MCH MCHC RDW Plt Count Lymph % (Auto) [place] % (Auto) Eos % (Auto) Lymph # [place] # Eos # Seg Neutrophils % Seg Neuts % (Manual) Lymphocytes % (Manual) Monocytes % (Manual) Eosinophils % (Manual) Nucleated RBC % Seg Neutrophils # Seg Neutrophils # Man Lymphocytes # (Manual) Monocytes # (Manual) Eosinophils # (Manual) PT INR APTT Heparin Anti-Xa Level POC ABG pH POC ABG pCO2 POC ABG pO2 ABG Base Excess ABG Hemoglobin Sodium Potassium 3.2 L Chloride Carbon Dioxide BUN 22 H Creatinine Glucose POC Glucose 121 H Lactic Acid Calcium 7.7 L Phosphorus Magnesium Iron TIBC Ferritin Direct Bilirubin AST Total Creatine Kinase Troponin T Total Protein Albumin Prealbumin LDL Cholesterol Direct HDL Cholesterol Vitamin B12 TSH PTH Intact Urine Creatinine Urine Total Protein Vancomycin Trough 23.0 H Digoxin Salicylates Acetaminophen Crossmatch 03/27/19 03/27/19 03/27/19 09:04 13:31 14:04 WBC 14.8 H RBC 2.52 L Hgb 8.0 L 8.3 L Hct 24.0 L 25.3 L MCV MCH MCHC RDW 17.0 H Plt Count 89 L 91 L Lymph % (Auto) [place] % (Auto) 8.8 H Eos % (Auto) Lymph # [place] # 1.3 H Eos # Seg Neutrophils % 70.7 H Seg Neuts % (Manual) Lymphocytes % (Manual) Monocytes % (Manual) Eosinophils % (Manual) Nucleated RBC % Seg Neutrophils # 10.5 H Seg Neutrophils # Man Lymphocytes # (Manual) Monocytes # (Manual) Eosinophils # (Manual) PT INR APTT Heparin Anti-Xa Level POC ABG pH POC ABG pCO2 POC ABG pO2 ABG Base Excess ABG Hemoglobin Sodium Potassium Chloride Carbon Dioxide BUN Creatinine Glucose POC Glucose Lactic Acid Calcium Phosphorus Magnesium Iron TIBC Ferritin Direct Bilirubin 0.3 H AST Total Creatine Kinase Troponin T Total Protein 4.9 L Albumin 1.3 L Prealbumin LDL Cholesterol Direct HDL Cholesterol Vitamin B12 TSH PTH Intact Urine Creatinine Urine Total Protein Vancomycin Trough Digoxin Salicylates Acetaminophen Crossmatch 03/27/19 03/27/19 03/28/19 14:04 23:51 01:05 WBC 14.4 H RBC 2.44 L Hgb 8.0 L Hct 24.5 L MCV 100 H MCH 33 H MCHC RDW 18.5 H Plt Count 86 L Lymph % (Auto) [place] % (Auto) Eos % (Auto) Lymph # [place] # Eos # Seg Neutrophils % Seg Neuts % (Manual) 84.0 H Lymphocytes % (Manual) 10.0 L Monocytes % (Manual) Eosinophils % (Manual) Nucleated RBC % Seg Neutrophils # Seg Neutrophils # Man 12.1 H Lymphocytes # (Manual) Monocytes # (Manual) Eosinophils # (Manual) PT 21.4 H INR 1.90 H APTT 42.2 H Heparin Anti-Xa Level POC ABG pH POC ABG pCO2 POC ABG pO2 ABG Base Excess ABG Hemoglobin Sodium Potassium Chloride Carbon Dioxide BUN Creatinine Glucose POC Glucose 130 H Lactic Acid Calcium Phosphorus Magnesium Iron TIBC Ferritin Direct Bilirubin AST Total Creatine Kinase Troponin T Total Protein Albumin Prealbumin LDL Cholesterol Direct HDL Cholesterol Vitamin B12 TSH PTH Intact Urine Creatinine Urine Total Protein Vancomycin Trough Digoxin Salicylates Acetaminophen Crossmatch 03/28/19 03/28/19 03/28/19 02:51 04:45 07:31 WBC RBC Hgb Hct MCV MCH MCHC RDW Plt Count Lymph % (Auto) [place] % (Auto) Eos % (Auto) Lymph # [place] # Eos # Seg Neutrophils % Seg Neuts % (Manual) Lymphocytes % (Manual) Monocytes % (Manual) Eosinophils % (Manual) Nucleated RBC % Seg Neutrophils # Seg Neutrophils # Man Lymphocytes # (Manual) Monocytes # (Manual) Eosinophils # (Manual) PT INR APTT 75.0 H* Heparin Anti-Xa Level POC ABG pH POC ABG pCO2 POC ABG pO2 ABG Base Excess ABG Hemoglobin Sodium Potassium Chloride Carbon Dioxide BUN 22 H Creatinine Glucose POC Glucose Lactic Acid Calcium 7.8 L Phosphorus Magnesium Iron TIBC Ferritin 448.3 H Direct Bilirubin AST Total Creatine Kinase Troponin T Total Protein Albumin Prealbumin LDL Cholesterol Direct HDL Cholesterol Vitamin B12 TSH PTH Intact Urine Creatinine Urine Total Protein Vancomycin Trough Digoxin Salicylates Acetaminophen Crossmatch 03/28/19 03/29/19 03/29/19 14:30 04:40 04:40 WBC RBC 2.17 L Hgb 7.1 L Hct 20.8 L MCV MCH 33 H MCHC RDW 17.1 H Plt Count 122 L Lymph % (Auto) [place] % (Auto) Eos % (Auto) Lymph # [place] # Eos # Seg Neutrophils % Seg Neuts % (Manual) Lymphocytes % (Manual) Monocytes % (Manual) Eosinophils % (Manual) Nucleated RBC % Seg Neutrophils # Seg Neutrophils # Man Lymphocytes # (Manual) Monocytes # (Manual) Eosinophils # (Manual) PT INR APTT 70.3 H* Heparin Anti-Xa Level POC ABG pH POC ABG pCO2 POC ABG pO2 ABG Base Excess ABG Hemoglobin Sodium Potassium Chloride Carbon Dioxide 31 H BUN 22 H Creatinine 0.5 L Glucose POC Glucose Lactic Acid Calcium 8.0 L Phosphorus Magnesium Iron TIBC Ferritin Direct Bilirubin AST Total Creatine Kinase Troponin T Total Protein 5.0 L Albumin 1.4 L Prealbumin LDL Cholesterol Direct HDL Cholesterol Vitamin B12 TSH PTH Intact Urine Creatinine Urine Total Protein Vancomycin Trough Digoxin Salicylates Acetaminophen Crossmatch 03/29/19 03/29/19 03/29/19 04:40 04:40 11:50 WBC RBC Hgb Hct MCV MCH MCHC RDW Plt Count Lymph % (Auto) [place] % (Auto) Eos % (Auto) Lymph # [place] # Eos # Seg Neutrophils % Seg Neuts % (Manual) Lymphocytes % (Manual) Monocytes % (Manual) Eosinophils % (Manual) Nucleated RBC % Seg Neutrophils # Seg Neutrophils # Man Lymphocytes # (Manual) Monocytes # (Manual) Eosinophils # (Manual) PT INR APTT 71.8 H* Heparin Anti-Xa Level POC ABG pH POC ABG pCO2 POC ABG pO2 ABG Base Excess ABG Hemoglobin Sodium Potassium Chloride Carbon Dioxide BUN Creatinine Glucose POC Glucose 118 H Lactic Acid Calcium Phosphorus Magnesium Iron TIBC Ferritin Direct Bilirubin AST Total Creatine Kinase Troponin T Total Protein Albumin Prealbumin LDL Cholesterol Direct HDL Cholesterol Vitamin B12 TSH PTH Intact Urine Creatinine Urine Total Protein Vancomycin Trough Digoxin 3.5 H* Salicylates Acetaminophen Crossmatch 03/29/19 03/29/19 03/29/19 16:20 16:20 21:10 WBC RBC Hgb Hct MCV MCH MCHC RDW Plt Count Lymph % (Auto) [place] % (Auto) Eos % (Auto) Lymph # [place] # Eos # Seg Neutrophils % Seg Neuts % (Manual) Lymphocytes % (Manual) Monocytes % (Manual) Eosinophils % (Manual) Nucleated RBC % Seg Neutrophils # Seg Neutrophils # Man Lymphocytes # (Manual) Monocytes # (Manual) Eosinophils # (Manual) PT INR APTT 61.5 H* 112.6 H* Heparin Anti-Xa Level POC ABG pH POC ABG pCO2 POC ABG pO2 ABG Base Excess ABG Hemoglobin Sodium Potassium Chloride Carbon Dioxide BUN Creatinine Glucose POC Glucose Lactic Acid Calcium Phosphorus Magnesium Iron TIBC Ferritin Direct Bilirubin AST Total Creatine Kinase Troponin T Total Protein Albumin Prealbumin LDL Cholesterol Direct HDL Cholesterol Vitamin B12 TSH PTH Intact Urine Creatinine Urine Total Protein Vancomycin Trough Digoxin 2.6 H* Salicylates Acetaminophen Crossmatch 03/29/19 03/30/19 03/30/19 22:30 04:42 04:42 WBC RBC Hgb 6.4 L Hct 18.9 L* MCV MCH MCHC RDW Plt Count Lymph % (Auto) [place] % (Auto) Eos % (Auto) Lymph # [place] # Eos # Seg Neutrophils % Seg Neuts % (Manual) Lymphocytes % (Manual) Monocytes % (Manual) Eosinophils % (Manual) Nucleated RBC % Seg Neutrophils # Seg Neutrophils # Man Lymphocytes # (Manual) Monocytes # (Manual) Eosinophils # (Manual) PT INR APTT 103.8 H* Heparin Anti-Xa Level POC ABG pH POC ABG pCO2 POC ABG pO2 ABG Base Excess ABG Hemoglobin Sodium Potassium Chloride Carbon Dioxide BUN Creatinine Glucose POC Glucose Lactic Acid Calcium Phosphorus Magnesium Iron TIBC Ferritin Direct Bilirubin AST Total Creatine Kinase Troponin T Total Protein Albumin Prealbumin LDL Cholesterol Direct HDL Cholesterol Vitamin B12 TSH PTH Intact Urine Creatinine Urine Total Protein Vancomycin Trough Digoxin 2.6 H* Salicylates Acetaminophen Crossmatch 03/30/19 03/30/19 03/30/19 07:04 07:58 11:15 WBC RBC 2.66 L Hgb 8.5 L Hct 25.3 L D MCV MCH MCHC RDW 17.4 H Plt Count Lymph % (Auto) [place] % (Auto) Eos % (Auto) Lymph # [place] # Eos # Seg Neutrophils % Seg Neuts % (Manual) Lymphocytes % (Manual) Monocytes % (Manual) Eosinophils % (Manual) Nucleated RBC % Seg Neutrophils # Seg Neutrophils # Man Lymphocytes # (Manual) Monocytes # (Manual) Eosinophils # (Manual) PT INR APTT 50.5 H Heparin Anti-Xa Level POC ABG pH POC ABG pCO2 POC ABG pO2 ABG Base Excess ABG Hemoglobin Sodium Potassium Chloride Carbon Dioxide BUN Creatinine Glucose POC Glucose Lactic Acid Calcium Phosphorus Magnesium Iron TIBC Ferritin Direct Bilirubin AST Total Creatine Kinase Troponin T Total Protein Albumin Prealbumin LDL Cholesterol Direct HDL Cholesterol Vitamin B12 TSH PTH Intact Urine Creatinine Urine Total Protein Vancomycin Trough Digoxin Salicylates Acetaminophen Crossmatch See Detail 03/30/19 03/30/19 03/30/19 11:36 17:40 22:51 WBC RBC 2.48 L Hgb 7.9 L Hct 23.9 L MCV MCH MCHC RDW 17.7 H Plt Count Lymph % (Auto) [place] % (Auto) Eos % (Auto) Lymph # [place] # Eos # Seg Neutrophils % Seg Neuts % (Manual) Lymphocytes % (Manual) Monocytes % (Manual) Eosinophils % (Manual) Nucleated RBC % Seg Neutrophils # Seg Neutrophils # Man Lymphocytes # (Manual) Monocytes # (Manual) Eosinophils # (Manual) PT INR APTT Heparin Anti-Xa Level POC ABG pH POC ABG pCO2 POC ABG pO2 ABG Base Excess ABG Hemoglobin Sodium Potassium Chloride Carbon Dioxide BUN Creatinine Glucose POC Glucose 129 H 112 H Lactic Acid Calcium Phosphorus Magnesium Iron TIBC Ferritin Direct Bilirubin AST Total Creatine Kinase Troponin T Total Protein Albumin Prealbumin LDL Cholesterol Direct HDL Cholesterol Vitamin B12 TSH PTH Intact Urine Creatinine Urine Total Protein Vancomycin Trough Digoxin Salicylates Acetaminophen Crossmatch 03/30/19 03/31/19 03/31/19 23:47 05:00 11:35 WBC RBC Hgb 8.0 L Hct 23.7 L MCV MCH MCHC RDW Plt Count Lymph % (Auto) [place] % (Auto) Eos % (Auto) Lymph # [place] # Eos # Seg Neutrophils % Seg Neuts % (Manual) Lymphocytes % (Manual) Monocytes % (Manual) Eosinophils % (Manual) Nucleated RBC % Seg Neutrophils # Seg Neutrophils # Man Lymphocytes # (Manual) Monocytes # (Manual) Eosinophils # (Manual) PT INR APTT Heparin Anti-Xa Level POC ABG pH POC ABG pCO2 POC ABG pO2 ABG Base Excess ABG Hemoglobin Sodium Potassium Chloride Carbon Dioxide BUN Creatinine Glucose POC Glucose 112 H 106 H Lactic Acid Calcium Phosphorus Magnesium Iron TIBC Ferritin Direct Bilirubin AST Total Creatine Kinase Troponin T Total Protein Albumin Prealbumin LDL Cholesterol Direct HDL Cholesterol Vitamin B12 TSH PTH Intact Urine Creatinine Urine Total Protein Vancomycin Trough Digoxin Salicylates Acetaminophen Crossmatch 04/01/19 04/02/19 04/03/19 11:38 08:33 06:15 WBC RBC 2.11 L Hgb 7.8 L 6.8 L Hct 23.1 L 20.5 L MCV 98 H MCH MCHC RDW 17.6 H Plt Count Lymph % (Auto) [place] % (Auto) 12.1 H Eos % (Auto) 7.4 H Lymph # [place] # Eos # Seg Neutrophils % Seg Neuts % (Manual) Lymphocytes % (Manual) Monocytes % (Manual) Eosinophils % (Manual) Nucleated RBC % Seg Neutrophils # Seg Neutrophils # Man Lymphocytes # (Manual) Monocytes # (Manual) Eosinophils # (Manual) PT INR APTT Heparin Anti-Xa Level POC ABG pH POC ABG pCO2 POC ABG pO2 ABG Base Excess ABG Hemoglobin Sodium Potassium Chloride Carbon Dioxide BUN Creatinine Glucose POC Glucose 136 H Lactic Acid Calcium Phosphorus Magnesium Iron TIBC Ferritin Direct Bilirubin AST Total Creatine Kinase Troponin T Total Protein Albumin Prealbumin LDL Cholesterol Direct HDL Cholesterol Vitamin B12 TSH PTH Intact Urine Creatinine Urine Total Protein Vancomycin Trough Digoxin Salicylates Acetaminophen Crossmatch 04/03/19 04/04/19 04/04/19 08:22 05:20 05:20 WBC RBC 2.27 L Hgb 7.3 L 7.3 L Hct 21.9 L 22.0 L MCV MCH MCHC RDW 16.8 H Plt Count Lymph % (Auto) [place] % (Auto) 12.2 H Eos % (Auto) 6.6 H Lymph # [place] # 1.0 H Eos # 0.5 H Seg Neutrophils % Seg Neuts % (Manual) Lymphocytes % (Manual) Monocytes % (Manual) Eosinophils % (Manual) Nucleated RBC % Seg Neutrophils # Seg Neutrophils # Man Lymphocytes # (Manual) Monocytes # (Manual) Eosinophils # (Manual) PT INR APTT Heparin Anti-Xa Level POC ABG pH POC ABG pCO2 POC ABG pO2 ABG Base Excess ABG Hemoglobin Sodium Potassium Chloride Carbon Dioxide BUN Creatinine 0.4 L Glucose POC Glucose Lactic Acid Calcium 7.9 L Phosphorus 2.20 L Magnesium 1.40 L Iron TIBC Ferritin Direct Bilirubin AST Total Creatine Kinase Troponin T Total Protein Albumin Prealbumin LDL Cholesterol Direct HDL Cholesterol Vitamin B12 TSH PTH Intact Urine Creatinine Urine Total Protein Vancomycin Trough Digoxin Salicylates Acetaminophen Crossmatch 04/05/19 04/05/19 04/05/19 03:30 03:30 06:51 WBC RBC 2.09 L Hgb 6.7 L Hct 20.1 L MCV MCH MCHC RDW 16.6 H Plt Count Lymph % (Auto) [place] % (Auto) 12.6 H Eos % (Auto) 6.2 H Lymph # [place] # 1.0 H Eos # 0.5 H Seg Neutrophils % Seg Neuts % (Manual) Lymphocytes % (Manual) Monocytes % (Manual) Eosinophils % (Manual) Nucleated RBC % Seg Neutrophils # Seg Neutrophils # Man Lymphocytes # (Manual) Monocytes # (Manual) Eosinophils # (Manual) PT INR APTT Heparin Anti-Xa Level POC ABG pH POC ABG pCO2 POC ABG pO2 ABG Base Excess ABG Hemoglobin Sodium Potassium Chloride Carbon Dioxide BUN Creatinine 0.4 L Glucose POC Glucose Lactic Acid Calcium 7.6 L Phosphorus Magnesium Iron TIBC Ferritin Direct Bilirubin AST Total Creatine Kinase Troponin T Total Protein Albumin Prealbumin LDL Cholesterol Direct HDL Cholesterol Vitamin B12 TSH PTH Intact Urine Creatinine Urine Total Protein Vancomycin Trough Digoxin Salicylates Acetaminophen Crossmatch See Detail 04/05/19 04/05/19 04/06/19 13:07 23:50 09:36 WBC RBC 2.56 L Hgb 8.4 L Hct 23.5 L MCV MCH 33 H MCHC 36 H RDW 17.9 H Plt Count Lymph % (Auto) [place] % (Auto) Eos % (Auto) Lymph # [place] # Eos # Seg Neutrophils % Seg Neuts % (Manual) Lymphocytes % (Manual) Monocytes % (Manual) Eosinophils % (Manual) Nucleated RBC % Seg Neutrophils # Seg Neutrophils # Man Lymphocytes # (Manual) Monocytes # (Manual) Eosinophils # (Manual) PT INR APTT Heparin Anti-Xa Level POC ABG pH POC ABG pCO2 POC ABG pO2 ABG Base Excess ABG Hemoglobin Sodium Potassium Chloride Carbon Dioxide BUN Creatinine Glucose POC Glucose 106 H 109 H Lactic Acid Calcium Phosphorus Magnesium Iron TIBC Ferritin Direct Bilirubin AST Total Creatine Kinase Troponin T Total Protein Albumin Prealbumin LDL Cholesterol Direct HDL Cholesterol Vitamin B12 TSH PTH Intact Urine Creatinine Urine Total Protein Vancomycin Trough Digoxin Salicylates Acetaminophen Crossmatch 04/07/19 04/07/19 04/07/19 06:50 06:50 11:37 WBC RBC Hgb 8.6 L Hct 25.6 L MCV MCH MCHC RDW Plt Count Lymph % (Auto) [place] % (Auto) Eos % (Auto) Lymph # [place] # Eos # Seg Neutrophils % Seg Neuts % (Manual) Lymphocytes % (Manual) Monocytes % (Manual) Eosinophils % (Manual) Nucleated RBC % Seg Neutrophils # Seg Neutrophils # Man Lymphocytes # (Manual) Monocytes # (Manual) Eosinophils # (Manual) PT INR APTT Heparin Anti-Xa Level POC ABG pH POC ABG pCO2 POC ABG pO2 ABG Base Excess ABG Hemoglobin Sodium Potassium Chloride Carbon Dioxide BUN Creatinine 0.6 L Glucose POC Glucose 118 H Lactic Acid Calcium 8.1 L Phosphorus Magnesium Iron TIBC Ferritin Direct Bilirubin AST Total Creatine Kinase Troponin T Total Protein Albumin Prealbumin LDL Cholesterol Direct HDL Cholesterol Vitamin B12 TSH PTH Intact Urine Creatinine Urine Total Protein Vancomycin Trough Digoxin Salicylates Acetaminophen Crossmatch 04/07/19 04/08/19 04/09/19 18:29 05:46 09:15 WBC 11.3 H RBC 2.58 L Hgb 7.9 L Hct 24.4 L MCV MCH MCHC RDW 17.3 H Plt Count 455 H Lymph % (Auto) [place] % (Auto) Eos % (Auto) Lymph # [place] # Eos # Seg Neutrophils % Seg Neuts % (Manual) Lymphocytes % (Manual) Monocytes % (Manual) Eosinophils % (Manual) Nucleated RBC % Seg Neutrophils # Seg Neutrophils # Man Lymphocytes # (Manual) Monocytes # (Manual) Eosinophils # (Manual) PT INR APTT Heparin Anti-Xa Level POC ABG pH POC ABG pCO2 POC ABG pO2 ABG Base Excess ABG Hemoglobin Sodium Potassium Chloride Carbon Dioxide BUN Creatinine Glucose POC Glucose 108 H 113 H Lactic Acid Calcium Phosphorus Magnesium Iron TIBC Ferritin Direct Bilirubin AST Total Creatine Kinase Troponin T Total Protein Albumin Prealbumin LDL Cholesterol Direct HDL Cholesterol Vitamin B12 TSH PTH Intact Urine Creatinine Urine Total Protein Vancomycin Trough Digoxin Salicylates Acetaminophen Crossmatch 04/09/19 04/09/19 04/09/19 12:14 17:56 23:41 WBC RBC Hgb Hct MCV MCH MCHC RDW Plt Count Lymph % (Auto) [place] % (Auto) Eos % (Auto) Lymph # [place] # Eos # Seg Neutrophils % Seg Neuts % (Manual) Lymphocytes % (Manual) Monocytes % (Manual) Eosinophils % (Manual) Nucleated RBC % Seg Neutrophils # Seg Neutrophils # Man Lymphocytes # (Manual) Monocytes # (Manual) Eosinophils # (Manual) PT INR APTT Heparin Anti-Xa Level POC ABG pH POC ABG pCO2 POC ABG pO2 ABG Base Excess ABG Hemoglobin Sodium Potassium Chloride Carbon Dioxide BUN Creatinine Glucose POC Glucose 135 H 117 H 128 H Lactic Acid Calcium Phosphorus Magnesium Iron TIBC Ferritin Direct Bilirubin AST Total Creatine Kinase Troponin T Total Protein Albumin Prealbumin LDL Cholesterol Direct HDL Cholesterol Vitamin B12 TSH PTH Intact Urine Creatinine Urine Total Protein Vancomycin Trough Digoxin Salicylates Acetaminophen Crossmatch 04/10/19 04/10/19 04/10/19 05:10 05:10 05:29 WBC 12.5 H RBC 2.46 L Hgb 7.6 L Hct 23.0 L MCV MCH MCHC RDW 17.3 H Plt Count 446 H Lymph % (Auto) 12.8 L [place] % (Auto) 12.1 H Eos % (Auto) Lymph # [place] # 1.5 H Eos # Seg Neutrophils % 72.6 H Seg Neuts % (Manual) Lymphocytes % (Manual) Monocytes % (Manual) Eosinophils % (Manual) Nucleated RBC % Seg Neutrophils # 9.0 H Seg Neutrophils # Man Lymphocytes # (Manual) Monocytes # (Manual) Eosinophils # (Manual) PT INR APTT Heparin Anti-Xa Level POC ABG pH POC ABG pCO2 POC ABG pO2 ABG Base Excess ABG Hemoglobin Sodium 136 L Potassium Chloride Carbon Dioxide BUN Creatinine 0.6 L Glucose POC Glucose 125 H Lactic Acid Calcium 7.6 L Phosphorus Magnesium Iron TIBC Ferritin Direct Bilirubin AST Total Creatine Kinase Troponin T Total Protein Albumin Prealbumin LDL Cholesterol Direct HDL Cholesterol Vitamin B12 TSH PTH Intact Urine Creatinine Urine Total Protein Vancomycin Trough Digoxin Salicylates Acetaminophen Crossmatch 04/10/19 04/10/19 04/11/19 18:31 23:41 04:25 WBC 18.5 H RBC 2.61 L Hgb 8.0 L Hct 24.3 L MCV MCH MCHC RDW 17.2 H Plt Count 490 H Lymph % (Auto) 9.8 L [place] % (Auto) 9.5 H Eos % (Auto) Lymph # [place] # 1.8 H Eos # Seg Neutrophils % 79.0 H Seg Neuts % (Manual) Lymphocytes % (Manual) Monocytes % (Manual) Eosinophils % (Manual) Nucleated RBC % Seg Neutrophils # 14.6 H Seg Neutrophils # Man Lymphocytes # (Manual) Monocytes # (Manual) Eosinophils # (Manual) PT INR APTT Heparin Anti-Xa Level POC ABG pH POC ABG pCO2 POC ABG pO2 ABG Base Excess ABG Hemoglobin Sodium Potassium Chloride Carbon Dioxide BUN Creatinine Glucose POC Glucose 165 H 133 H Lactic Acid Calcium Phosphorus Magnesium Iron TIBC Ferritin Direct Bilirubin AST Total Creatine Kinase Troponin T Total Protein Albumin Prealbumin LDL Cholesterol Direct HDL Cholesterol Vitamin B12 TSH PTH Intact Urine Creatinine Urine Total Protein Vancomycin Trough Digoxin Salicylates Acetaminophen Crossmatch 04/11/19 04/11/19 04/11/19 04:25 04:25 05:38 WBC RBC Hgb Hct MCV MCH MCHC RDW Plt Count Lymph % (Auto) [place] % (Auto) Eos % (Auto) Lymph # [place] # Eos # Seg Neutrophils % Seg Neuts % (Manual) Lymphocytes % (Manual) Monocytes % (Manual) Eosinophils % (Manual) Nucleated RBC % Seg Neutrophils # Seg Neutrophils # Man Lymphocytes # (Manual) Monocytes # (Manual) Eosinophils # (Manual) PT 15.5 H INR 1.26 H APTT Heparin Anti-Xa Level POC ABG pH POC ABG pCO2 POC ABG pO2 ABG Base Excess ABG Hemoglobin Sodium 136 L Potassium Chloride Carbon Dioxide BUN Creatinine 0.6 L Glucose POC Glucose 107 H Lactic Acid Calcium 7.7 L Phosphorus Magnesium Iron TIBC Ferritin Direct Bilirubin AST Total Creatine Kinase Troponin T Total Protein Albumin Prealbumin LDL Cholesterol Direct HDL Cholesterol Vitamin B12 TSH PTH Intact Urine Creatinine Urine Total Protein Vancomycin Trough Digoxin Salicylates Acetaminophen Crossmatch 04/12/19 04/12/19 04/12/19 06:47 11:30 11:30 WBC RBC Hgb 7.9 L Hct 24.3 L MCV MCH MCHC RDW Plt Count 465 H Lymph % (Auto) [place] % (Auto) Eos % (Auto) Lymph # [place] # Eos # Seg Neutrophils % Seg Neuts % (Manual) Lymphocytes % (Manual) Monocytes % (Manual) Eosinophils % (Manual) Nucleated RBC % Seg Neutrophils # Seg Neutrophils # Man Lymphocytes # (Manual) Monocytes # (Manual) Eosinophils # (Manual) PT 16.6 H INR 1.38 H APTT Heparin Anti-Xa Level POC ABG pH POC ABG pCO2 POC ABG pO2 ABG Base Excess ABG Hemoglobin Sodium Potassium Chloride Carbon Dioxide BUN Creatinine Glucose POC Glucose 157 H Lactic Acid Calcium Phosphorus Magnesium Iron TIBC Ferritin Direct Bilirubin AST Total Creatine Kinase Troponin T Total Protein Albumin Prealbumin LDL Cholesterol Direct HDL Cholesterol Vitamin B12 TSH PTH Intact Urine Creatinine Urine Total Protein Vancomycin Trough Digoxin Salicylates Acetaminophen Crossmatch 04/12/19 04/12/19 04/12/19 12:03 12:18 14:57 WBC RBC Hgb Hct MCV MCH MCHC RDW Plt Count Lymph % (Auto) [place] % (Auto) Eos % (Auto) Lymph # [place] # Eos # Seg Neutrophils % Seg Neuts % (Manual) Lymphocytes % (Manual) Monocytes % (Manual) Eosinophils % (Manual) Nucleated RBC % Seg Neutrophils # Seg Neutrophils # Man Lymphocytes # (Manual) Monocytes # (Manual) Eosinophils # (Manual) PT INR APTT Heparin Anti-Xa Level POC ABG pH POC ABG pCO2 30.5 L POC ABG pO2 53 L 60 L ABG Base Excess ABG Hemoglobin Sodium Potassium Chloride Carbon Dioxide BUN Creatinine Glucose POC Glucose 118 H Lactic Acid Calcium Phosphorus Magnesium Iron TIBC Ferritin Direct Bilirubin AST Total Creatine Kinase Troponin T Total Protein Albumin Prealbumin LDL Cholesterol Direct HDL Cholesterol Vitamin B12 TSH PTH Intact Urine Creatinine Urine Total Protein Vancomycin Trough Digoxin Salicylates Acetaminophen Crossmatch 04/12/19 04/12/19 04/13/19 18:02 18:05 02:31 WBC 25.1 H RBC 2.31 L Hgb 7.1 L Hct 21.4 L MCV MCH MCHC RDW 17.1 H Plt Count Lymph % (Auto) [place] % (Auto) Eos % (Auto) Lymph # [place] # Eos # Seg Neutrophils % Seg Neuts % (Manual) 90.0 H Lymphocytes % (Manual) 5.0 L Monocytes % (Manual) Eosinophils % (Manual) Nucleated RBC % Seg Neutrophils # Seg Neutrophils # Man 22.6 H Lymphocytes # (Manual) Monocytes # (Manual) 1.0 H Eosinophils # (Manual) PT INR APTT Heparin Anti-Xa Level < 0.10 L POC ABG pH POC ABG pCO2 POC ABG pO2 ABG Base Excess ABG Hemoglobin Sodium Potassium Chloride Carbon Dioxide BUN Creatinine Glucose POC Glucose 115 H Lactic Acid Calcium Phosphorus Magnesium Iron TIBC Ferritin Direct Bilirubin AST Total Creatine Kinase Troponin T Total Protein Albumin Prealbumin LDL Cholesterol Direct HDL Cholesterol Vitamin B12 TSH PTH Intact Urine Creatinine Urine Total Protein Vancomycin Trough Digoxin Salicylates Acetaminophen Crossmatch 04/13/19 04/13/19 04/13/19 02:31 02:31 05:02 WBC RBC Hgb Hct MCV MCH MCHC RDW Plt Count Lymph % (Auto) [place] % (Auto) Eos % (Auto) Lymph # [place] # Eos # Seg Neutrophils % Seg Neuts % (Manual) Lymphocytes % (Manual) Monocytes % (Manual) Eosinophils % (Manual) Nucleated RBC % Seg Neutrophils # Seg Neutrophils # Man Lymphocytes # (Manual) Monocytes # (Manual) Eosinophils # (Manual) PT INR APTT Heparin Anti-Xa Level 0.24 L POC ABG pH POC ABG pCO2 POC ABG pO2 ABG Base Excess -2.3 L ABG Hemoglobin 7.8 L Sodium 134 L Potassium Chloride Carbon Dioxide BUN 18 H Creatinine Glucose POC Glucose Lactic Acid Calcium 7.6 L Phosphorus Magnesium Iron TIBC Ferritin Direct Bilirubin AST Total Creatine Kinase Troponin T Total Protein 6.1 L Albumin 1.6 L Prealbumin LDL Cholesterol Direct HDL Cholesterol Vitamin B12 TSH PTH Intact Urine Creatinine Urine Total Protein Vancomycin Trough Digoxin Salicylates Acetaminophen Crossmatch 04/13/19 04/14/19 04/14/19 18:23 04:22 08:15 WBC RBC Hgb Hct MCV MCH MCHC RDW Plt Count Lymph % (Auto) [place] % (Auto) Eos % (Auto) Lymph # [place] # Eos # Seg Neutrophils % Seg Neuts % (Manual) Lymphocytes % (Manual) Monocytes % (Manual) Eosinophils % (Manual) Nucleated RBC % Seg Neutrophils # Seg Neutrophils # Man Lymphocytes # (Manual) Monocytes # (Manual) Eosinophils # (Manual) PT INR APTT Heparin Anti-Xa Level POC ABG pH POC ABG pCO2 POC ABG pO2 70 L ABG Base Excess ABG Hemoglobin Sodium 135 L Potassium Chloride Carbon Dioxide BUN 24 H Creatinine 1.3 H Glucose POC Glucose 129 H Lactic Acid Calcium 7.4 L Phosphorus Magnesium Iron TIBC Ferritin Direct Bilirubin AST Total Creatine Kinase Troponin T Total Protein Albumin Prealbumin LDL Cholesterol Direct HDL Cholesterol Vitamin B12 TSH PTH Intact Urine Creatinine Urine Total Protein Vancomycin Trough Digoxin Salicylates Acetaminophen Crossmatch 04/14/19 04/14/19 04/14/19 08:40 08:40 10:38 WBC 23.9 H RBC 2.13 L Hgb 6.6 L Hct 19.5 L* MCV MCH MCHC RDW 17.1 H Plt Count Lymph % (Auto) [place] % (Auto) Eos % (Auto) Lymph # [place] # Eos # Seg Neutrophils % Seg Neuts % (Manual) 90.0 H Lymphocytes % (Manual) 4.0 L Monocytes % (Manual) Eosinophils % (Manual) Nucleated RBC % Seg Neutrophils # Seg Neutrophils # Man 21.5 H Lymphocytes # (Manual) 1.0 L Monocytes # (Manual) Eosinophils # (Manual) 0.7 H PT INR APTT Heparin Anti-Xa Level 0.14 L POC ABG pH POC ABG pCO2 POC ABG pO2 ABG Base Excess ABG Hemoglobin Sodium Potassium Chloride Carbon Dioxide BUN Creatinine Glucose POC Glucose Lactic Acid Calcium Phosphorus Magnesium Iron TIBC Ferritin Direct Bilirubin AST Total Creatine Kinase Troponin T Total Protein Albumin Prealbumin LDL Cholesterol Direct HDL Cholesterol Vitamin B12 TSH PTH Intact Urine Creatinine Urine Total Protein Vancomycin Trough Digoxin Salicylates Acetaminophen Crossmatch See Detail 04/14/19 04/14/19 04/15/19 19:31 23:38 08:21 WBC 27.0 H RBC 2.83 L Hgb 8.4 L Hct 25.1 L MCV MCH MCHC RDW 19.1 H Plt Count Lymph % (Auto) [place] % (Auto) Eos % (Auto) Lymph # [place] # Eos # Seg Neutrophils % Seg Neuts % (Manual) 90.0 H Lymphocytes % (Manual) 3.0 L Monocytes % (Manual) Eosinophils % (Manual) Nucleated RBC % Seg Neutrophils # Seg Neutrophils # Man 24.3 H Lymphocytes # (Manual) 0.8 L Monocytes # (Manual) Eosinophils # (Manual) 1.1 H PT INR APTT Heparin Anti-Xa Level POC ABG pH POC ABG pCO2 POC ABG pO2 ABG Base Excess ABG Hemoglobin Sodium Potassium Chloride Carbon Dioxide BUN Creatinine Glucose POC Glucose 138 H 118 H Lactic Acid Calcium Phosphorus Magnesium Iron TIBC Ferritin Direct Bilirubin AST Total Creatine Kinase Troponin T Total Protein Albumin Prealbumin LDL Cholesterol Direct HDL Cholesterol Vitamin B12 TSH PTH Intact Urine Creatinine Urine Total Protein Vancomycin Trough Digoxin Salicylates Acetaminophen Crossmatch 04/15/19 08:21 WBC RBC Hgb Hct MCV MCH MCHC RDW Plt Count Lymph % (Auto) [place] % (Auto) Eos % (Auto) Lymph # [place] # Eos # Seg Neutrophils % Seg Neuts % (Manual) Lymphocytes % (Manual) Monocytes % (Manual) Eosinophils % (Manual) Nucleated RBC % Seg Neutrophils # Seg Neutrophils # Man Lymphocytes # (Manual) Monocytes # (Manual) Eosinophils # (Manual) PT INR APTT Heparin Anti-Xa Level POC ABG pH POC ABG pCO2 POC ABG pO2 ABG Base Excess ABG Hemoglobin Sodium 136 L Potassium 3.4 L Chloride Carbon Dioxide BUN 31 H Creatinine 1.3 H Glucose 60 L POC Glucose Lactic Acid Calcium 7.9 L Phosphorus Magnesium Iron TIBC Ferritin Direct Bilirubin AST Total Creatine Kinase Troponin T Total Protein Albumin Prealbumin LDL Cholesterol Direct HDL Cholesterol Vitamin B12 TSH PTH Intact Urine Creatinine Urine Total Protein Vancomycin Trough Digoxin Salicylates Acetaminophen Crossmatch
--- NOTE | 2019-04-15 12:26 | Progress Note ---
Assessment and Plan Acute metabolic encephalopathy, - cont supportive care, CT head negative - patient now appears at her baseline per the family Acute hypoxic respiratory with ETT placement: consulted CCM, difficult to wean off vent, scheduled nebs - S/P trach and PEG 04/11/19 on vent,Tolerating PEG feeds - Awaiting LTAC placement Severe Anemia: Drop in H/H - status post total 4 units of PRBC transfusion - Closely monitor and transfuse as needed Digoxin toxicity; supratherapeutic level, off digoxin Acute Right common femoral DVT and right IJ vein thrombosis - argatroban drip dced due to severe anemia[requiring transfusion] - planned for IVC filter by IR, but already have one in place - Family requested aggressive management, heparin drip is restarted 04/13 but h/h dropped, again on hold a - no AC for now, monitor clinically Sepsis due to aspiration pneumonia; - source pneumonia but having persistent fever. UA negative. Blood culture 03/19 no growth. Urine culture 03/19/2019 negative. - ID following, Has completed full course for pneumonia and abx stopped on 04/04 for aspiration PNA - monitored fever curve - started on abx again by ID on 04/07 for persistent fever with bactrim for 7 days- completed Septic shock: off pressor, weaned off, BP now stable Paroxysmal Atrial fib, Now NSR - on amioderone, metoprolol HA (acute kidney injury), atn and vasomotor nephrology, poa: IV fluids for now, Nephrology consulted - renal function improved, worsening again, cont to monitor RUL Aspiration pneumonia: treated with abx Hypernatremia: improved with Iv fluid Hypomagnesemia: replete and follow as needed Elevated troponin level/ NSTEMI II; consulted Cardiology, conservative mx Severe malnutrition; nutrition consult, PEG feeds, supportive care DVT prophylaxis DNR code status CCT 34 minutes Disposition ;Awaiting LTAC placement Brief History Patient is a 73 yo woman without a clear past medical history due to patient presentation of being Altered requiring intubation upon admission. Upon arrival to the emergency room, the patient is obtunded, breathing without difficulty, desaturating, without a gag reflex. Therefore, patient placed on nasal cannula at 15 L/m, and then intubated without difficulty. Patient started empirically on the sepsis pathway, with broad-spectrum antibiotics, aggressive IV fluids, and post intubation sedation package. She is difficult to wean off from vent, s /p bronch. venous doppler showed right internal jugular vein thrombus associated with right internal jugular vein triple lumen catheter and right common femoral vein DVT. Patient was on anticoagulation however had significant anemia requiring blood transfusion as argatroban discontinued. Patient is unable to wean with poor prognosis, family requested DO NOT RESUSCITATE status And initially decided hospice, however they changed their mind and and patient underwent trach and PEG on 04/11/19 and is awaiting LTAC placement * pCXR FINDINGS: SUPPORT DEVICES: Endotracheal tube is in place in good position above the liam. HEART / MEDIASTINUM: No significant abnormality. LUNGS / PLEURA: There is moderate bibasilar lung consolidation and slight right upper lobe consolidation as well. No edema or effusions. No pneumothorax. ADDITIONAL FINDINGS: No significant additional findings. IMPRESSION: 1. Endotracheal tube in good position. * CT head without contrast IMPRESSION: Encephalomalacia in the entire right cerebral hemisphere Volume loss in the left cerebral hemisphere, n0 acute parenchymal lesion in the brain. Hospitalist Physical Gen: critcally ill, thin frail, on tyrach and PEG HEENT: EOMI, PERRL, OP Clear Neck: supple, no adenopathy, no thyromegaly, no JVD CVS/Heart: RRR, normal S1S2, pulses present bilaterally Chest/Lungs: CTA B, Symmetrical chest expansion, good air entry bilaterally GI/Abdomen: soft, NTND, good bowel sounds, no guarding or rebound /Bladder: no suprapubic tenderness, no CVA or paraspinal tenderness Extermity/Skin: no c/c/e, no obvious rash, + edema MSK: no joint swelling Neuro: contracted extremities Psych: unable to assess Subjective Date of service: 04/15/19 Principal diagnosis: anemia - dvt Interval history: Pt seen and examined discussed with RN at the bedside tolerating TF, Objective - Constitutional Vitals: Vital Signs - 12hr 04/15/19 04/15/19 04/15/19 00:30 00:40 00:50 Temperature Pulse Rate 101 H 99 H 98 H Pulse Rate [ Anterior Bilateral Throughout] Pulse Rate [ Right Dorsalis Pedis] Respiratory 45 H 23 25 H Rate Respiratory Rate [Anterior Bilateral Throughout] Blood Pressure 129/72 129/72 112/51 O2 Sat by Pulse 91 96 97 Oximetry O2 Sat by Pulse Oximetry [ Assessment] 04/15/19 04/15/19 04/15/19 01:00 01:10 01:20 Temperature Pulse Rate 95 H 98 H 99 H Pulse Rate [ Anterior Bilateral Throughout] Pulse Rate [ Right Dorsalis Pedis] Respiratory 25 H 39 H 42 H Rate Respiratory Rate [Anterior Bilateral Throughout] Blood Pressure 95/52 129/72 118/57 O2 Sat by Pulse 93 95 96 Oximetry O2 Sat by Pulse Oximetry [ Assessment] 04/15/19 04/15/19 04/15/19 01:30 01:40 01:50 Temperature Pulse Rate 99 H 96 H 97 H Pulse Rate [ Anterior Bilateral Throughout] Pulse Rate [ Right Dorsalis Pedis] Respiratory 42 H 24 24 Rate Respiratory Rate [Anterior Bilateral Throughout] Blood Pressure 140/66 140/66 107/51 O2 Sat by Pulse 92 95 95 Oximetry O2 Sat by Pulse Oximetry [ Assessment] 04/15/19 04/15/19 04/15/19 02:00 02:10 02:15 Temperature Pulse Rate 99 H 99 H Pulse Rate [ Anterior Bilateral Throughout] Pulse Rate [ Right Dorsalis Pedis] Respiratory 43 H 28 H Rate Respiratory Rate [Anterior Bilateral Throughout] Blood Pressure 148/66 148/66 O2 Sat by Pulse 92 95 Oximetry O2 Sat by Pulse 96 Oximetry [ Assessment] 04/15/19 04/15/19 04/15/19 02:20 02:30 02:40 Temperature Pulse Rate 97 H 97 H 96 H Pulse Rate [ Anterior Bilateral Throughout] Pulse Rate [ Right Dorsalis Pedis] Respiratory 25 H 25 H 24 Rate Respiratory Rate [Anterior Bilateral Throughout] Blood Pressure 119/58 118/62 118/62 O2 Sat by Pulse 96 96 97 Oximetry O2 Sat by Pulse Oximetry [ Assessment] 04/15/19 04/15/19 04/15/19 02:50 03:00 03:10 Temperature Pulse Rate 99 H 102 H 102 H Pulse Rate [ Anterior Bilateral Throughout] Pulse Rate [ Right Dorsalis Pedis] Respiratory 45 H 35 H 26 H Rate Respiratory Rate [Anterior Bilateral Throughout] Blood Pressure 124/55 138/79 138/79 O2 Sat by Pulse 96 93 96 Oximetry O2 Sat by Pulse Oximetry [ Assessment] 04/15/19 04/15/19 04/15/19 03:20 03:30 03:40 Temperature Pulse Rate 104 H 103 H 105 H Pulse Rate [ Anterior Bilateral Throughout] Pulse Rate [ Right Dorsalis Pedis] Respiratory 42 H 27 H 35 H Rate Respiratory Rate [Anterior Bilateral Throughout] Blood Pressure 129/75 147/73 147/73 O2 Sat by Pulse 96 97 95 Oximetry O2 Sat by Pulse Oximetry [ Assessment] 04/15/19 04/15/19 04/15/19 03:49 03:50 04:00 Temperature 98.9 F 98.1 F Pulse Rate 103 H 104 H Pulse Rate [ Anterior Bilateral Throughout] Pulse Rate [ Right Dorsalis Pedis] Respiratory 41 H 39 H Rate Respiratory Rate [Anterior Bilateral Throughout] Blood Pressure 137/69 156/73 O2 Sat by Pulse 97 93 Oximetry O2 Sat by Pulse Oximetry [ Assessment] 04/15/19 04/15/19 04/15/19 04:10 04:20 04:30 Temperature Pulse Rate 102 H 102 H 114 H Pulse Rate [ Anterior Bilateral Throughout] Pulse Rate [ Right Dorsalis Pedis] Respiratory 28 H 22 42 H Rate Respiratory Rate [Anterior Bilateral Throughout] Blood Pressure 156/73 151/80 146/79 O2 Sat by Pulse 96 97 94 Oximetry O2 Sat by Pulse Oximetry [ Assessment] 04/15/19 04/15/19 04/15/19 04:40 04:49 05:00 Temperature 98.1 F Pulse Rate 102 H 101 H Pulse Rate [ Anterior Bilateral Throughout] Pulse Rate [ Right Dorsalis Pedis] Respiratory 20 24 Rate Respiratory Rate [Anterior Bilateral Throughout] Blood Pressure 146/79 127/57 O2 Sat by Pulse 97 96 Oximetry O2 Sat by Pulse Oximetry [ Assessment] 04/15/19 04/15/19 04/15/19 05:50 06:00 07:00 Temperature Pulse Rate 108 H 101 H 110 H Pulse Rate [ Anterior Bilateral Throughout] Pulse Rate [ Right Dorsalis Pedis] Respiratory 21 45 H Rate Respiratory Rate [Anterior Bilateral Throughout] Blood Pressure 167/86 110/56 156/79 O2 Sat by Pulse 95 96 94 Oximetry O2 Sat by Pulse Oximetry [ Assessment] 04/15/19 04/15/19 04/15/19 07:53 08:00 09:00 Temperature 99.3 F Pulse Rate 111 H 103 H Pulse Rate [ 107 H Anterior Bilateral Throughout] Pulse Rate [ 104 H Right Dorsalis Pedis] Respiratory 20 22 18 Rate Respiratory 36 H Rate [Anterior Bilateral Throughout] Blood Pressure 121/62 121/62 O2 Sat by Pulse 96 98 97 Oximetry O2 Sat by Pulse Oximetry [ Assessment] 04/15/19 04/15/19 04/15/19 10:00 11:00 12:00 Temperature Pulse Rate 130 H 116 H 94 H Pulse Rate [ Anterior Bilateral Throughout] Pulse Rate [ Right Dorsalis Pedis] Respiratory 44 H 22 29 H Rate Respiratory Rate [Anterior Bilateral Throughout] Blood Pressure 165/89 143/72 146/72 O2 Sat by Pulse 92 95 96 Oximetry O2 Sat by Pulse Oximetry [ Assessment] 04/15/19 12:07 Temperature 98.8 F Pulse Rate Pulse Rate [ Anterior Bilateral Throughout] Pulse Rate [ Right Dorsalis Pedis] Respiratory Rate Respiratory Rate [Anterior Bilateral Throughout] Blood Pressure O2 Sat by Pulse Oximetry O2 Sat by Pulse Oximetry [ Assessment] - Labs CBC & Chem 7: 04/15/19 08:21 04/15/19 08:21 Labs: Abnormal lab results 04/14/19 04/14/19 04/14/19 Range/Units 10:38 19:31 23:38 WBC (4.5-11.0) K/mm3 RBC (3.65-5.03) M/mm3 Hgb (10.1-14.3) gm/dl Hct (30.3-42.9) % RDW (13.2-15.2) % Seg Neuts % (Manual) (40.0-70.0) % Lymphocytes % (Manual) (13.4-35.0) % Seg Neutrophils # Man (1.8-7.7) K/mm3 Lymphocytes # (Manual) (1.2-5.4) K/mm3 Eosinophils # (Manual) (0.0-0.4) K/mm3 Sodium (137-145) mmol/L Potassium (3.6-5.0) mmol/L BUN (7-17) mg/dL Creatinine (0.7-1.2) mg/dL Glucose (65-100) mg/dL POC Glucose 138 H 118 H (70-105) Calcium (8.4-10.2) mg/dL Crossmatch See Detail 04/15/19 04/15/19 Range/Units 08:21 08:21 WBC 27.0 H (4.5-11.0) K/mm3 RBC 2.83 L (3.65-5.03) M/mm3 Hgb 8.4 L (10.1-14.3) gm/dl Hct 25.1 L (30.3-42.9) % RDW 19.1 H (13.2-15.2) % Seg Neuts % (Manual) 90.0 H (40.0-70.0) % Lymphocytes % (Manual) 3.0 L (13.4-35.0) % Seg Neutrophils # Man 24.3 H (1.8-7.7) K/mm3 Lymphocytes # (Manual) 0.8 L (1.2-5.4) K/mm3 Eosinophils # (Manual) 1.1 H (0.0-0.4) K/mm3 Sodium 136 L (137-145) mmol/L Potassium 3.4 L (3.6-5.0) mmol/L BUN 31 H (7-17) mg/dL Creatinine 1.3 H (0.7-1.2) mg/dL Glucose 60 L (65-100) mg/dL POC Glucose (70-105) Calcium 7.9 L (8.4-10.2) mg/dL Crossmatch
--- NOTE | 2019-04-15 12:38 | Progress Note ---
Assessment and Plan Assessment: Acute Hypoxic Respiratory Failure Acute Kidney Injury possibly prerenal, ischemic ATN from hypotension Metabolic Acidosis Sepsis secondary to bilateral PNA Possible RUL Aspiration PNA Hypotension Elevated Troponin Plan: - Renal function reviewed, SCr level was 1.3 today - On admission, SCr level was 3.2, pt resolution of HA and we signed off earlier this admission, but pt now has worsening HA - Renally dose meds - Adam Catheter: Yes - Renal plan d/w Dr Rodrigez Subjective Principal diagnosis: anemia - dvt Objective - Vital Signs Vital signs: Vital Signs - 12hr 04/15/19 04/15/19 04/15/19 00:40 00:50 01:00 Temperature Pulse Rate 99 H 98 H 95 H Pulse Rate [ Anterior Bilateral Throughout] Pulse Rate [ Right Dorsalis Pedis] Respiratory 23 25 H 25 H Rate Respiratory Rate [Anterior Bilateral Throughout] Blood Pressure 129/72 112/51 95/52 O2 Sat by Pulse 96 97 93 Oximetry O2 Sat by Pulse Oximetry [ Assessment] 04/15/19 04/15/19 04/15/19 01:10 01:20 01:30 Temperature Pulse Rate 98 H 99 H 99 H Pulse Rate [ Anterior Bilateral Throughout] Pulse Rate [ Right Dorsalis Pedis] Respiratory 39 H 42 H 42 H Rate Respiratory Rate [Anterior Bilateral Throughout] Blood Pressure 129/72 118/57 140/66 O2 Sat by Pulse 95 96 92 Oximetry O2 Sat by Pulse Oximetry [ Assessment] 04/15/19 04/15/19 04/15/19 01:40 01:50 02:00 Temperature Pulse Rate 96 H 97 H 99 H Pulse Rate [ Anterior Bilateral Throughout] Pulse Rate [ Right Dorsalis Pedis] Respiratory 24 24 43 H Rate Respiratory Rate [Anterior Bilateral Throughout] Blood Pressure 140/66 107/51 148/66 O2 Sat by Pulse 95 95 92 Oximetry O2 Sat by Pulse Oximetry [ Assessment] 04/15/19 04/15/19 04/15/19 02:10 02:15 02:20 Temperature Pulse Rate 99 H 97 H Pulse Rate [ Anterior Bilateral Throughout] Pulse Rate [ Right Dorsalis Pedis] Respiratory 28 H 25 H Rate Respiratory Rate [Anterior Bilateral Throughout] Blood Pressure 148/66 119/58 O2 Sat by Pulse 95 96 Oximetry O2 Sat by Pulse 96 Oximetry [ Assessment] 04/15/19 04/15/19 04/15/19 02:30 02:40 02:50 Temperature Pulse Rate 97 H 96 H 99 H Pulse Rate [ Anterior Bilateral Throughout] Pulse Rate [ Right Dorsalis Pedis] Respiratory 25 H 24 45 H Rate Respiratory Rate [Anterior Bilateral Throughout] Blood Pressure 118/62 118/62 124/55 O2 Sat by Pulse 96 97 96 Oximetry O2 Sat by Pulse Oximetry [ Assessment] 04/15/19 04/15/19 04/15/19 03:00 03:10 03:20 Temperature Pulse Rate 102 H 102 H 104 H Pulse Rate [ Anterior Bilateral Throughout] Pulse Rate [ Right Dorsalis Pedis] Respiratory 35 H 26 H 42 H Rate Respiratory Rate [Anterior Bilateral Throughout] Blood Pressure 138/79 138/79 129/75 O2 Sat by Pulse 93 96 96 Oximetry O2 Sat by Pulse Oximetry [ Assessment] 04/15/19 04/15/19 04/15/19 03:30 03:40 03:49 Temperature 98.9 F Pulse Rate 103 H 105 H Pulse Rate [ Anterior Bilateral Throughout] Pulse Rate [ Right Dorsalis Pedis] Respiratory 27 H 35 H Rate Respiratory Rate [Anterior Bilateral Throughout] Blood Pressure 147/73 147/73 O2 Sat by Pulse 97 95 Oximetry O2 Sat by Pulse Oximetry [ Assessment] 04/15/19 04/15/19 04/15/19 03:50 04:00 04:10 Temperature 98.1 F Pulse Rate 103 H 104 H 102 H Pulse Rate [ Anterior Bilateral Throughout] Pulse Rate [ Right Dorsalis Pedis] Respiratory 41 H 39 H 28 H Rate Respiratory Rate [Anterior Bilateral Throughout] Blood Pressure 137/69 156/73 156/73 O2 Sat by Pulse 97 93 96 Oximetry O2 Sat by Pulse Oximetry [ Assessment] 04/15/19 04/15/19 04/15/19 04:20 04:30 04:40 Temperature Pulse Rate 102 H 114 H 102 H Pulse Rate [ Anterior Bilateral Throughout] Pulse Rate [ Right Dorsalis Pedis] Respiratory 22 42 H 20 Rate Respiratory Rate [Anterior Bilateral Throughout] Blood Pressure 151/80 146/79 146/79 O2 Sat by Pulse 97 94 97 Oximetry O2 Sat by Pulse Oximetry [ Assessment] 04/15/19 04/15/19 04/15/19 04:49 05:00 05:50 Temperature 98.1 F Pulse Rate 101 H 108 H Pulse Rate [ Anterior Bilateral Throughout] Pulse Rate [ Right Dorsalis Pedis] Respiratory 24 Rate Respiratory Rate [Anterior Bilateral Throughout] Blood Pressure 127/57 167/86 O2 Sat by Pulse 96 95 Oximetry O2 Sat by Pulse Oximetry [ Assessment] 04/15/19 04/15/19 04/15/19 06:00 07:00 07:53 Temperature Pulse Rate 101 H 110 H Pulse Rate [ Anterior Bilateral Throughout] Pulse Rate [ 104 H Right Dorsalis Pedis] Respiratory 21 45 H 20 Rate Respiratory Rate [Anterior Bilateral Throughout] Blood Pressure 110/56 156/79 O2 Sat by Pulse 96 94 96 Oximetry O2 Sat by Pulse Oximetry [ Assessment] 04/15/19 04/15/19 04/15/19 08:00 09:00 10:00 Temperature 99.3 F Pulse Rate 111 H 103 H 130 H Pulse Rate [ 107 H Anterior Bilateral Throughout] Pulse Rate [ Right Dorsalis Pedis] Respiratory 22 18 44 H Rate Respiratory 36 H Rate [Anterior Bilateral Throughout] Blood Pressure 121/62 121/62 165/89 O2 Sat by Pulse 98 97 92 Oximetry O2 Sat by Pulse Oximetry [ Assessment] 04/15/19 04/15/19 04/15/19 11:00 12:00 12:07 Temperature 98.8 F Pulse Rate 116 H 94 H Pulse Rate [ Anterior Bilateral Throughout] Pulse Rate [ Right Dorsalis Pedis] Respiratory 22 29 H Rate Respiratory Rate [Anterior Bilateral Throughout] Blood Pressure 143/72 146/72 O2 Sat by Pulse 95 96 Oximetry O2 Sat by Pulse Oximetry [ Assessment] - Lab 04/15/19 08:21 04/15/19 08:21 Most recent lab results ABG pH 7.446 pH Units (7.350-7.450) 04/13/19 05:02 ABG pCO2 31.7 mm Hg 04/13/19 05:02 ABG pO2 85.6 mm Hg (80.0-90.0) 04/13/19 05:02 ABG HCO3 21.3 mmol/L (20.0-26.0) 04/13/19 05:02 ABG O2 Saturation 97.2 % (95.0-99.0) 04/13/19 05:02 Calcium 7.9 mg/dL (8.4-10.2) L 04/15/19 08:21 Phosphorus 2.70 mg/dL (2.5-4.5) D 04/05/19 03:30 Magnesium 2.00 mg/dL (1.7-2.3) 04/05/19 03:30 53.7 mg/dL (0.1-20.0) H 03/20/19 16:40 116 mmol/L 03/20/19 16:40 36 mg/dL (5-11.8) H 03/20/19 16:40 Medications & Allergies - Medications Allergies/Adverse Reactions: Allergies No Known Allergies Allergy (Unverified 03/19/19 13:11) Home Medications: Home Medications Medication Instructions Recorded Confirmed Last Taken Type Aspirin EC [Halfprin EC] 81 mg PO DAILY 03/20/19 03/20/19 Unknown History Divalproex Sodium 375 mg PO Q8H PRN 03/20/19 03/20/19 Unknown History Metoprolol [Lopressor TAB] 50 mg PO BID 03/20/19 03/20/19 Unknown History Sennosides/Docusate Sodium [Senna 8.6 mg PO BID PRN 03/20/19 03/20/19 Unknown History Plus Tablet] levETIRAcetam [Keppra TAB] 500 mg PO BID 03/20/19 03/20/19 Unknown History Active Medications: Generic Name Dose Route Start Last Admin Trade Name Freq PRN Reason Stop Dose Admin Acetaminophen 650 mg 03/24/19 23:48 04/11/19 09:52 Tylenol FEEDTUBE 650 mg Q6H PRN Administration Pain, Mild (1-3) Albuterol 2.5 mg 03/19/19 23:58 Proventil IH Q3HRT PRN Shortness Of Breath Albuterol/Ipratropium 1 ampul 03/20/19 02:00 04/15/19 09:15 Duoneb *Not For Prn Use* IH 1 ampul Q6HRT YUSUF Administration Amiodarone HCl 200 mg 03/22/19 22:00 04/15/19 10:36 Cordarone PO 200 mg BID YUSUF Administration Lipase/Protease/Amylase 1 each 04/07/19 15:50 Naomi Sargent 10,500 Unit FEEDTUBE PRN PRN For Clogged Feeding Tube Lipase/Protease/Amylase 1 each 04/14/19 15:06 Naomi Sargent 10,500 Unit FEEDTUBE PRN PRN For Clogged Feeding Tube Aspirin 81 mg 03/21/19 10:00 04/15/19 10:36 Baby Aspirin PO 81 mg DAILY YUSUF Administration Budesonide 0.5 mg 03/19/19 23:45 04/15/19 09:15 Pulmicort IH 0.5 mg Q12HRT YUSUF Administration Dextrose 50 ml 03/19/19 23:58 03/21/19 16:29 D50w (25gm) Syringe IV 50 ml PRN PRN Administration Hypoglycemia Famotidine 20 mg 03/22/19 10:00 04/15/19 10:34 Pepcid PO 20 mg BID YUSUF Administration Hydromorphone HCl 0.5 mg 03/19/19 23:58 04/15/19 02:23 Dilaudid IV 0.5 mg Q3H PRN Administration Pain , Severe (7-10) Hydrophilic Ointment 1 applic 03/19/19 12:45 Vaseline Lip Therapy TP Q2HR PRN Dry Lips Fentanyl Citrate 2,000 mcg in 100 mls @ 2.835 mls/hr 03/19/19 14:00 03/21/19 11:33 Fentanyl Drip Premix IV 0 mcg/kg/hr TITR YUSUF 0 mls/hr Titration Protocol 1 MCG/KG/HR Norepinephrine 4 mg in 250 mls @ 7.5 mls/hr 03/25/19 11:00 03/30/19 23:45 Levophed Drip 4 Mg/Ns 250 Ml IV 0 mcg/min TITR YUSUF 0 mls/hr Titration Protocol 2 MCG/MIN Heparin Sodium/Sodium Chloride 25,000 unit in 500 mls @ 18 mls/hr 04/12/19 12:00 04/13/19 13:26 Heparin/ 0.45% Nacl-25,000 Unit/500 Ml IV 1,000 units/hr TITR YUSUF 20 mls/hr Administration Protocol 900 UNITS/HR Insulin Human Lispro 0 unit 03/20/19 00:00 04/15/19 10:37 Humalog SUB-Q Not Given Q6HR [facility] Protocol Metoclopramide HCl 5 mg 03/20/19 00:12 Reglan IV Q6H PRN Nausea And Vomiting Metoprolol Tartrate 2.5 mg 03/23/19 13:17 03/24/19 21:20 Lopressor IV 2.5 mg Q2HR PRN Administration HR >150 Metoprolol Tartrate 12.5 mg 04/11/19 22:00 04/15/19 09:00 Lopressor PO 12.5 mg BID YUSUF Administration Multi-Ingred Cream/Lotion/Oil/Oint 1 applic 03/19/19 12:45 Artificial Tears Ophth Oint OU Q4HR PRN Dry Eye(s) Ondansetron HCl 4 mg 03/19/19 23:58 Zofran IV Q8H PRN Nausea And Vomiting Promethazine HCl 25 mg 03/19/19 23:58 Phenergan [place] Q6H PRN N/V IF NPO AND NO IV ACCESS Simple Syrup 15 ml 04/07/19 15:50 Simple Syrup FEEDTUBE PRN PRN Hypoglycemia Simple Syrup 30 ml 04/07/19 15:50 Simple Syrup FEEDTUBE PRN PRN Hypoglycemia Simple Syrup 15 ml 04/14/19 15:06 Simple Syrup FEEDTUBE PRN PRN Hypoglycemia Simple Syrup 30 ml 04/14/19 15:06 Simple Syrup FEEDTUBE PRN PRN Hypoglycemia Sodium Bicarbonate 325 mg 04/07/19 15:50 Sodium Bicarbonate FEEDTUBE PRN PRN For Clogged Feeding Tube Sodium Bicarbonate 325 mg 04/14/19 15:06 Sodium Bicarbonate FEEDTUBE PRN PRN For Clogged Feeding Tube Sodium Chloride 10 ml 03/20/19 10:00 04/15/19 10:37 Sodium Chloride Flush Syringe 10 Ml IV 10 ml BID YUSUF Administration Sodium Chloride 10 ml 03/19/19 23:58 04/07/19 10:45 Sodium Chloride Flush Syringe 10 Ml IV 10 ml PRN PRN Administration LINE FLUSH
--- NOTE | 2019-04-15 12:48 | Consultation ---
History of Present Illness - Reason for Consult Consult date: 04/15/19 - History of Present Illness This is a 73 y/o F who presented to [facility] ED via EMS last month with AMS and difficulty breathing. Pt s/p intubation in ED, now s/p trach and PEG on 04/11/19. On admission, SCr level was 3.2 and pt was seen by our nephrology for HA. Pt did have resolution of HA, but now having acute rise in SCr for the past 2 days. Pt with prolonged hospitalization. Off pressors. Labs showed SCr level of 1.3 today and yesterday. Pt seen in ICU, trach, no family at bedside. Pt completed course of Bactrim, last dose on 04/14/19. IVC filter placed on 04/06/19. S/p CT Chest with IV contrast on 03/26/19, subsequent labs showed normal renal function following IV contrast on 03/26/19 until 04/14/19. Pt given 500 ml 0.9% NS Fluid Bolus x 1 dose yesterday. We were consulted to evaluate this pt who has HA. Past History Past Medical History: stroke, other (not available) Past Surgical History: Other (not available) Social history: lives with family, full code Family history: hypertension Medications and Allergies Allergies Allergy/AdvReac Type Severity Reaction Status Date / Time No Known Allergies Allergy Unverified 03/19/19 13:11 Home Medications Medication Instructions Recorded Confirmed Last Taken Type Aspirin EC [Halfprin EC] 81 mg PO DAILY 03/20/19 03/20/19 Unknown History Divalproex Sodium 375 mg PO Q8H PRN 03/20/19 03/20/19 Unknown History Metoprolol [Lopressor TAB] 50 mg PO BID 03/20/19 03/20/19 Unknown History Sennosides/Docusate Sodium [Senna 8.6 mg PO BID PRN 03/20/19 03/20/19 Unknown History Plus Tablet] levETIRAcetam [Keppra TAB] 500 mg PO BID 03/20/19 03/20/19 Unknown History Active Meds: Active Medications Acetaminophen (Tylenol) 650 mg FEEDTUBE Q6H PRN PRN Reason: Pain, Mild (1-3) Last Admin: 04/11/19 09:52 Dose: 650 mg Documented by: Albuterol (Proventil) 2.5 mg IH Q3HRT PRN PRN Reason: Shortness Of Breath Albuterol/Ipratropium (Duoneb *Not For Prn Use*) 1 ampul IH Q6HRT ON LICENSE OF [facility] Last Admin: 04/15/19 09:15 Dose: 1 ampul Documented by: Amiodarone HCl (Cordarone) 200 mg PO BID ON LICENSE OF [facility] Last Admin: 04/15/19 10:36 Dose: 200 mg Documented by: Lipase/Protease/Amylase (Pancreaze Dr 10,500 Unit) 1 each FEEDTUBE PRN PRN PRN Reason: For Clogged Feeding Tube Lipase/Protease/Amylase (Pancreaze Dr 10,500 Unit) 1 each FEEDTUBE PRN PRN PRN Reason: For Clogged Feeding Tube Aspirin (Baby Aspirin) 81 mg PO DAILY ON LICENSE OF [facility] Last Admin: 04/15/19 10:36 Dose: 81 mg Documented by: Budesonide (Pulmicort) 0.5 mg IH Q12HRT ON LICENSE OF [facility] Last Admin: 04/15/19 09:15 Dose: 0.5 mg Documented by: Dextrose (D50w (25gm) Syringe) 50 ml IV PRN PRN PRN Reason: Hypoglycemia Last Admin: 03/21/19 16:29 Dose: 50 ml Documented by: Famotidine (Pepcid) 20 mg PO BID ON LICENSE OF [facility] Last Admin: 04/15/19 10:34 Dose: 20 mg Documented by: Hydromorphone HCl (Dilaudid) 0.5 mg IV Q3H PRN PRN Reason: Pain , Severe (7-10) Last Admin: 04/15/19 02:23 Dose: 0.5 mg Documented by: Hydrophilic Ointment (Vaseline Lip Therapy) 1 applic TP Q2HR PRN PRN Reason: Dry Lips Fentanyl Citrate (Fentanyl Drip Premix) 2,000 mcg in 100 mls @ 2.835 mls/hr IV TITR ON LICENSE OF [facility]; Protocol Last Titration: 03/21/19 11:33 Dose: 0 mcg/kg/hr, 0 mls/hr Documented by: Norepinephrine (Levophed Drip 4 Mg/Ns 250 Ml) 4 mg in 250 mls @ 7.5 mls/hr IV TITR ON LICENSE OF [facility]; Protocol Last Titration: 03/30/19 23:45 Dose: 0 mcg/min, 0 mls/hr Documented by: Heparin Sodium/Sodium Chloride (Heparin/ 0.45% Nacl-25,000 Unit/500 Ml) 25,000 unit in 500 mls @ 18 mls/hr IV TITR YUSUF; Protocol Last Admin: 04/13/19 13:26 Dose: 1,000 units/hr, 20 mls/hr Documented by: Insulin Human Lispro (Humalog) 0 unit SUB-Q Q6HR YUSUF; Protocol Last Admin: 04/15/19 10:37 Dose: Not Given Documented by: Metoclopramide HCl (Reglan) 5 mg IV Q6H PRN PRN Reason: Nausea And Vomiting Metoprolol Tartrate (Lopressor) 2.5 mg IV Q2HR PRN PRN Reason: HR >150 Last Admin: 03/24/19 21:20 Dose: 2.5 mg Documented by: Metoprolol Tartrate (Lopressor) 12.5 mg PO BID ON LICENSE OF [facility] Last Admin: 04/15/19 09:00 Dose: 12.5 mg Documented by: Multi-Ingred Cream/Lotion/Oil/Oint (Artificial Tears Ophth Oint) 1 applic OU Q4HR PRN PRN Reason: Dry Eye(s) Ondansetron HCl (Zofran) 4 mg IV Q8H PRN PRN Reason: Nausea And Vomiting Promethazine HCl (Phenergan) 25 mg CO Q6H PRN PRN Reason: N/V IF NPO AND NO IV ACCESS Simple Syrup (Simple Syrup) 15 ml FEEDTUBE PRN PRN PRN Reason: Hypoglycemia Simple Syrup (Simple Syrup) 30 ml FEEDTUBE PRN PRN PRN Reason: Hypoglycemia Simple Syrup (Simple Syrup) 15 ml FEEDTUBE PRN PRN PRN Reason: Hypoglycemia Simple Syrup (Simple Syrup) 30 ml FEEDTUBE PRN PRN PRN Reason: Hypoglycemia Sodium Bicarbonate (Sodium Bicarbonate) 325 mg FEEDTUBE PRN PRN PRN Reason: For Clogged Feeding Tube Sodium Bicarbonate (Sodium Bicarbonate) 325 mg FEEDTUBE PRN PRN PRN Reason: For Clogged Feeding Tube Sodium Chloride (Sodium Chloride Flush Syringe 10 Ml) 10 ml IV BID YUSUF Last Admin: 04/15/19 10:37 Dose: 10 ml Documented by: Sodium Chloride (Sodium Chloride Flush Syringe 10 Ml) 10 ml IV PRN PRN PRN Reason: LINE FLUSH Last Admin: 04/07/19 10:45 Dose: 10 ml Documented by: Review of Systems ROS unobtainable: due to endotracheal tube Exam - Vital Signs Vital signs: Vital Signs Temp Pulse Resp BP 98.4 F 131 H 18 69/49 03/19/19 12:47 03/19/19 12:47 03/19/19 12:47 03/19/19 12:47 - General Appearance General appearance: other (trach, nonverbal) EENT: other (tracheostomy in place) Respiratory: Decreased Breath Sounds Heart: regular, S1S2 Gastrointestinal: Present: normoactive bowel sounds (PEG tube intact) Integumentary: warm and dry Neurologic: other (trach, nonverbal, doesn't follow commands) Musculoskeletal: Present: other (1+ edema to BLE) Results - Lab Results 04/15/19 08:21 04/15/19 08:21 Most recent lab results ABG pH 7.446 pH Units (7.350-7.450) 04/13/19 05:02 ABG pCO2 31.7 mm Hg 04/13/19 05:02 ABG pO2 85.6 mm Hg (80.0-90.0) 04/13/19 05:02 ABG HCO3 21.3 mmol/L (20.0-26.0) 04/13/19 05:02 ABG O2 Saturation 97.2 % (95.0-99.0) 04/13/19 05:02 Calcium 7.9 mg/dL (8.4-10.2) L 04/15/19 08:21 Phosphorus 2.70 mg/dL (2.5-4.5) D 04/05/19 03:30 Magnesium 2.00 mg/dL (1.7-2.3) 04/05/19 03:30 53.7 mg/dL (0.1-20.0) H 03/20/19 16:40 116 mmol/L 03/20/19 16:40 36 mg/dL (5-11.8) H 03/20/19 16:40 Assessment and Plan Assessment and Plan Acute Hypoxic Respiratory Failure - s/p trach Acute Kidney Injury possibly prerenal/ATN, possibly due to Bactrim Metabolic Acidosis Sepsis secondary to bilateral PNA Septic Shock Acute right common femoral DVT and Right IJ Vein thrombosis Paroxysmal Atrial Fibrillation Anemia Hypokalemia Plan: - Renal function reviewed, SCr level was 1.3 today, yesterday's SCr level was 1.3 - On admission, SCr level was 3.2, pt had resolution of HA and we signed off last month, but pt now has worsening HA over the past 2 days - S/p CT Chest with IV contrast on 03/26/19, subsequent labs showed normal renal function following IV contrast on 03/26/19 until 04/14/19. Pt given 500 ml 0.9% NS Fluid Bolus x 1 dose yesterday - S/p course of Bactrim from 04/07/19 to 04/14/19 - Replete potassium - Check magnesium level - Check urine lytes - Renally dose meds - Adam Catheter: No (Purewick) - Renal plan d/w Dr Rodrigez
[2019-04-15] MEDS ORDERED: POTASSIUM CHLORIDE FEEDTUBE ONE (14:48)
[2019-04-16 02:38] VITALS: BP 133/69
--- NOTE | 2019-04-16 02:41 | Death Note ---
<TIAN KNAPP - Last Filed: 04/16/19 02:43> Note Date of : 04/16/19 Time of : 02:05 Time Pronounced: 02:20 - Preliminary Cause of (problem) (1) Cardiac arrest due to other underlying condition Preliminary cause of No spontaneous respirations, no heart sounds noted, no pulses noted, pupils are fixed and dilated. 73-year-old female that presented to [facility] ED with altered mental status and difficulty breathing. Pt had a prolonged hospitalization complicated by by septic shock, aspiration pneumonia, severe anemia, right common femoral DVT and right IJ vein thrombosis s/p IVC filter placed on 04/06/19, and acute hypoxic respiratory failure S/p intubation in ED, s/p trach and PEG on 04/11/19. (2) Acute respiratory failure Qualifiers: Respiratory failure complication: hypoxia Qualified Code(s): J96.01 - Acute respiratory failure with hypoxia Preliminary cause of (3) Aspiration pneumonia Qualifiers: Laterality: bilateral Preliminary cause of <DAVE PIRES - Last Filed: 04/16/19 21:16> - Addendum Date: 04/16/19 Note: I personally discussed the pt with the BURR PICKER-CWellington Kamla. I agree with the above documentations
[2019-04-16] MEDS: HumaLOG SUB-Q SCH (03:48)
[2019-04-16] MEDS: DUONEB *Not for PRN Use IH SCH (03:48)
--- NOTE | 2019-04-17 11:28 | Death Summary ---
Summary - Providers Date of service: 04/16/19 Consults: 03/19/19 12:47 Consult to Physician [CONS] Urgent Comment: Consulting Provider: RONI RAMIRES Physician Instructions: Reason For Exam: resp failure sepsis 03/19/19 23:59 Consult to Dietitian/Nutrition [CONS] Routine Physician Instructions: Reason For Exam: Reason for Consult: Write/Manage Tube Feeding 03/20/19 00:00 Consult to Case Management [CONS] Routine Services Needed at Discharge: Oral And Maxillofacial Pathologist Notified:: yes Phone number called:: spoke with Was contact made?: Yes If yes, spoke with:: Lynette Time called:: 09:29 Consult to Dietitian/Nutrition [CONS] Routine Physician Instructions: Assess nutrtn needs, initiate, modify, manage TF Reason For Exam: Reason for Consult: Write/Manage Tube Feeding Reason for Consult: Write/Manage Tube Feeding 03/20/19 00:09 Consult to Physician [CONS] Routine Comment: Consulting Provider: KRISH VEGAS Physician Instructions: Reason For Exam: HA 03/20/19 09:32 PICC Line Placement [Consult to PICC Line RN] [CONS] Stat Reason For Exam: IV ACCESS Type Line:: PICC 03/20/19 15:06 Consult to Physician [CONS] Routine Comment: Consulting Provider: SANTY GARCIA Physician Instructions: Reason For Exam: VENEOUS CENTRAL LINE 03/20/19 19:07 Consult to Physician [CONS] Urgent Comment: Consulting Provider: KG WITT Physician Instructions: Reason For Exam: lactic acid 9.9 03/20/19 19:08 Consult to Physician [CONS] Urgent Comment: Consulting Provider: KRISHNA COSTELLO Physician Instructions: Reason For Exam: lactic acid 9.9 03/26/19 14:37 Consult to Wound/ET Nurse [CONS] Urgent Reason For Exam: wound eval right leg blisters and sacrum 03/27/19 13:40 Consult to Physician [CONS] Urgent Comment: Consulting Provider: YELITZA CELESTIN Physician Instructions: Reason For Exam: low platlet 03/27/19 13:56 Consult to Physician [CONS] Routine Comment: Consulting Provider: SANTY STOVALL Physician Instructions: Reason For Exam: occluding thrombus at internal jugular vein 04/05/19 13:25 Consult to Physician [CONS] Routine Comment: Consulting Provider: SANTY STOVALL Physician Instructions: LE DVT, dropped HCT on anticoag. & remains anemic Reason For Exam: eval. for ivc filter 04/05/19 13:26 Consult to Physician [CONS] Routine Comment: Consulting Provider: LOUIE ZAMORA Physician Instructions: Reason For Exam: trach/peg 04/14/19 12:45 Midline [Consult to PICC Line RN] [CONS] Urgent Reason For Exam: poor vein access Type Line:: Midline Attending: CATHRYN ALONZO - summary Date of admission: 03/19/19 15:52 Date of : 04/16/19 Significant findings: 73-year-old female that presented to [facility] ED with altered mental status and difficulty breathing. Patient had a prolonged hospitalization complicated by by septic shock, aspiration pneumonia, severe anemia, right common femoral DVT and right IJ vein thrombosis and acute hypoxic respiratory failure S/p intubation in ED, s/p trach and PEG on 04/11/19. Patient was on anticoagulation however had significant anemia requiring recurrent blood transfusion so anticoagulation was on hold. Patient is unable to wean with poor prognosis, family requested DO NOT RESUSCITATE status And initially decided hospice, however they changed their mind and was awaiting LTAC placement. This morning she was noted No spontaneous respirations, no heart sounds noted, no pulses noted, pupils are fixed and dilated. She was pronounced by [facility] TOWER HOIST OPERATOR. Family was at bedside and updated. Cause of (1) Cardiac arrest due to other underlying condition Preliminary cause of (2) Acute respiratory failure Qualifiers: Respiratory failure complication: hypoxia Qualified Code(s): J96.01 - Acute respiratory failure with hypoxia Preliminary cause of (3) Aspiration PNA Qualifiers: Laterality: bilateral Preliminary cause of
== END 2019-04-16 02:05 | DRG 4 ==
LOC: ED 12:32 → CC1 15:52
PROVIDERS: ADMIT Internal Medicine; ATTEND Internal Medicine
PROC: 5A1955Z Respiratory Ventilation, Greater than 96 Consecutive Hours (ICD-10-PCS; principal; 2019-03-19)
PROC: 0BH17EZ Insertion of Endotracheal Airway into Trachea, Via Natural or Artificial Opening (ICD-10-PCS; 2019-03-19)
PROC: 4A033R1 Measurement of Arterial Saturation, Peripheral, Percutaneous Approach (ICD-10-PCS; 2019-03-19)
PROC: 06HY33Z Insertion of Infusion Device into Lower Vein, Percutaneous Approach (ICD-10-PCS; 2019-03-21)
PROC: 02HV33Z Insertion of Infusion Device into Superior Vena Cava, Percutaneous Approach (ICD-10-PCS; 2019-03-22)
PROC: B543ZZA Ultrasonography of Right Jugular Veins, Guidance (ICD-10-PCS; 2019-03-22)
PROC: 30233N1 Transfusion of Nonautologous Red Blood Cells into Peripheral Vein, Percutaneous Approach (ICD-10-PCS; 2019-03-24)
PROC: 0B958ZZ Drainage of Right Middle Lobe Bronchus, Via Natural or Artificial Opening Endoscopic (ICD-10-PCS; 2019-03-27)
PROC: B544ZZA Ultrasonography of Left Jugular Veins, Guidance (ICD-10-PCS; 2019-04-06)
PROC: B5191ZA Fluoroscopy of Inferior Vena Cava using Low Osmolar Contrast, Guidance (ICD-10-PCS; 2019-04-06)
PROC: B51H1ZA Fluoroscopy of Bilateral Pelvic (Iliac) Veins using Low Osmolar Contrast, Guidance (ICD-10-PCS; 2019-04-06)
PROC: B5141ZA Fluoroscopy of Left Jugular Veins using Low Osmolar Contrast, Guidance (ICD-10-PCS; 2019-04-06)
PROC: 0B113F4 Bypass Trachea to Cutaneous with Tracheostomy Device, Percutaneous Approach (ICD-10-PCS; 2019-04-11)
PROC: 0DH63UZ Insertion of Feeding Device into Stomach, Percutaneous Approach (ICD-10-PCS; 2019-04-11)
PROC: 0BJ08ZZ Inspection of Tracheobronchial Tree, Via Natural or Artificial Opening Endoscopic (ICD-10-PCS; 2019-04-11)
PROC: 05HY33Z Insertion of Infusion Device into Upper Vein, Percutaneous Approach (ICD-10-PCS; 2019-04-14)
DX: A41.9 Sepsis, unspecified organism (principal); J69.0 Pneumonitis due to inhalation of food and vomit; G93.41 Metabolic encephalopathy; N17.0 Acute kidney failure with tubular necrosis; R65.21 Severe sepsis with septic shock; I21.A1 Myocardial infarction type 2; J96.01 Acute respiratory failure with hypoxia; E43 Unspecified severe protein-calorie malnutrition; I82.411 Acute embolism and thrombosis of right femoral vein; E87.0 Hyperosmolality and hypernatremia; I82.C11 Acute embolism and thrombosis of right internal jugular vein; E83.42 Hypomagnesemia; E87.6 Hypokalemia; D64.9 Anemia, unspecified; I46.9 Cardiac arrest, cause unspecified; I48.0 Paroxysmal atrial fibrillation; D69.6 Thrombocytopenia, unspecified; T46.0X5A Adverse effect of cardiac-stimulant glycosides and drugs of similar action, initial encounter; Z66 Do not resuscitate; I25.2 Old myocardial infarction; Z86.73 Personal history of transient ischemic attack (TIA), and cerebral infarction without residual deficits; Z82.49 Family history of ischemic heart disease and other diseases of the circulatory system; Z79.899 Other long term (current) drug therapy; Y92.89 Other specified places as the place of occurrence of the external cause
CPT/HCPCS: 36010; 36415; 36600; 70450; 71045; 71250; 74018; 74177; 75825; 76770; 80048; 80053; 80061; 80076; 80162; 80202; 80320; 81001; 82043; 82140; 82270; 82550; 82570; 82607; 82728; 82747; 82803; 82947; 82962; 83036; 83550; 83735; 83970; 84100; 84134; 84156; 84300; 84439; 84443; 84484; 85007; 85014; 85018; 85025; 85027; 85049; 85520; 85610; 85730; 86022; 86850; 86900; 86901; 86920; 87040; 87070; 87076; 87086; 87102; 87186; 87205; 89050; 93005; 93010; 93306; 93970; 94002; 94003; 94640; G0378; C1769; G0480; J0282; J0610; J0690; J0692; J0883; J1160; J1170; J1450; J1644; J1815; J1940; J1953; J1956; J2020; J2185; J2250; J2704; J2916; J3010; J3370; J3475; J3480; J7030; J7040; J7042; J7050; J7060; J7070; P9016; Q9967